=== PATIENT | female | born 1960 | race Caucasian/White ===

== ENCOUNTER 2017-05-21 20:13 | Observation (INO) | payer OTHER ==
[2017-05-21 21:02] LABS: Absolute Lymphocytes (CBC) 1.9 K/uL (0.7-4.9); Absolute Monocytes 0.6 K/uL (0.1-1.3); Absolute Neutrophil 5.5 K/uL (1.8-8.0); Basophils % 0.6 % (0-1.3); Eosinophils % 1.7 % (0-4.4); Hematocrit 40.2 % (36.0-45.0); Lymphocytes % 23.5 % (15.3-44.8); MCH 28.3 pg (27.0-35.0); MCV 86.3 fL (80-100); MPV 7.9 fL (7.6-11.3); Monocytes % 6.8 % (3.3-12.3); RBC Red Blood Cell Count 4.65 M/uL (3.86-4.86)
[2017-05-21 21:12] LABS: Bicarbonate 31 mEq/L (21-31); Glucose Level 95 mg/dL (65-120); Potassium 3.8 mEq/L (3.6-5.0); Sodium Level 138 mEq/L (135-145)
[2017-05-21 21:18] LABS: ALT/SGPT 16 IU/L (10-60); AST/SGOT 23 IU/L (10-42); Alkaline Phosphatase 100 IU/L (42-121); BUN Blood Urea Nitrogen 11 mg/dL (6-20); Bilirubin Direct 0.1 mg/dL (0-0.2); Bilirubin Total 0.4 mg/dL (0.3-1.2); Creatine Phosphokinase 74 IU/L (22-269); Magnesium 1.7 mg/dL (1.8-2.5); Protein, Total 7.8 g/dL (6.0-8.3)
[2017-05-21 21:21] LABS: CKMB Creatine Kinase MB 1.5 ng/ml (0.3-4.0)
--- NOTE | 2017-05-21 21:31 | RAD REPORT ---
EXAM DESCRIPTION: RAD - Chest Single View - 05/21/2017 9:11 pm CLINICAL HISTORY: Chest pain, cough and congestion COMPARISON: February 14 TECHNIQUE: AP portable chest image was obtained 2058 hours . FINDINGS: Very extensive fibrotic lung changes are present. There is pleural thickening, interstitia l fibrotic change and cavitation in the right apex that matches the comparison as well. Elevation of the sobia noted. No new mass identified. Extent of lung disease can easily mask mild interstitial patria a or infiltrate. Heart and vasculature are normal. No measurable pleural effusion and no pneumothorax. No gross bony abnormality seen. No acute aortic findings suspected. IMPRESSION: Extensive fibrotic an obstructive lung changes most pronounced in the right apex. No acute finding from prior imaging. The extent of chronic disease can mask early interstitial edema or infiltrate.
[2017-05-21 21:43] LABS: Protime INR 1.03
[2017-05-21] MEDS ORDERED: ASPIRIN 81 MG CHEWABLE TABLET ONE (21:47)
[2017-05-21] MEDS ORDERED: FENTANYL CITR 100 MCG/2 ML ONE (21:48)
--- NOTE | 2017-05-21 22:03 | ER ---
Nurse's Notes [facility] Name: Kallie Correia Age: 56 yrs Sex: Female : 1960 Arrival Date: 05/21/2017 Time: 20:06 Bed 26 Private MD: Diagnosis: Chest pain, unspecified;Dyspnea;Hypomagnesemia;Chronic obstructive pulmonary disease with (acute) exacerbation Presentation: 05/21 20:06 Presenting complaint: EMS states: Pt. arrived from home by EMS... c/o indigestion and rk2 Chest pain. CP started yesterday. Pain radiates under both arms and into back. Denies SOB, N/V or dizziness. Pt. is currently being treated for a lung infection. Transition of care: patient was not received from another setting of care. Onset of symptoms was May 20, 2017. Initial Sepsis Screen: Does the patient meet any 2 criteria? No. Patient's initial sepsis screen is negative. Does the patient have a suspected source of infection? Yes:. Care prior to arrival: None. 20:06 Method Of Arrival: EMS: [facility] rk2 20:06 Acuity: BENJI 3 rk2 Triage Assessment: 20:11 General: Appears in no apparent distress. Behavior is calm, cooperative. Pain: rk2 Complains of pain in chest. Historical: - Allergies: 20:11 Morphine; rk2 - PMHx: 20:11 COPD; Emphysema; rk2 - Immunization history:: Flu vaccine is not up to date. - Social history:: Smoking status: Patient/guardian denies using tobacco, the patient reports quitting approximately 0 years ago. - Family history:: not pertinent. Screenin:13 Tuberculosis screening: Never had TB. rk2 20:20 Abuse screen: Denies threats or abuse. rk2 20:20 Nutritional screening: No deficits noted. Fall Risk Secondary diagnosis (15 points). rk2 Assessment: 00:00 Reassessment: Pt. ambulated to restroom without difficulty... resting back in room in rk2 no obvious distress. No needs \T\ this time. 20:20 General: Appears uncomfortable, well nourished, Behavior is calm, cooperative. rk2 20:20 Pain: Complains of pain in right posterior lower lobe and right posterior middle lobe rk2 and left posterior lower lobe and right posterior upper lobe and left posterior upper lobe and right lower lobe and left lower lobe and right middle lobe and left upper lobe and right upper lobe. Neuro: Level of Consciousness is alert, obeys commands, Oriented to person, place, time, situation. Cardiovascular: Rhythm is sinus rhythm. Respiratory: Airway is patent Respiratory effort is even, unlabored, Respiratory pattern is regular, symmetrical. Derm: Skin is pink, warm \T\ dry. 21:30 Reassessment: Pt. resting in room \T\ this time... appears to be in no obvious distress. rk2 Pt. given warm blanket, no other needs voiced. 22:30 Reassessment: Pt. resting in room \T\ this time. Nobody \T\ bedside. Pt. appears to be in 2 no obvious distress. No needs voiced \T\ this time. 05/22 00:25 Reassessment: Called report to Pam lindsey RN... Pt. transported by wheelchair to [facility] room. Vital Signs: 05/21 20:17 BP 126 / 80; Pulse 86; Resp 18; Temp 98.7; Pulse Ox 96% ; rk2 21:00 BP 101 / 72; Pulse 82; Resp 17; Pulse Ox 98% ; rk2 21:57 Weight 52.62 kg; Height 5 ft. 2 in. (157.48 cm); rk2 22:00 BP 113 / 74; Pulse 73; Resp 17; Pulse Ox 97% on R/A; rk2 23:00 BP 104 / 70; Pulse 75; Resp 18; Pulse Ox 98% on R/A; rk2 21:57 Body Mass Index 21.22 (52.62 kg, 157.48 cm) [facility] ED Course: 20:06 Patient arrived in ED. 2 20:10 Triage completed. 2 20:17 Елена Newton, RN is Primary Nurse. rk2 20:20 Patient has correct armband on for positive identification. Bed in low position. Call [facility] light in reach. Side rails up X2. expediter clerk on. Pulse ox on. 20:29 EKG done, by ED staff, reviewed by Елена Newton RN. 3 20:33 Miguel Angel Quezada MD is Attending Physician. [facility] 21:08 X-ray completed. Portable x-ray completed in exam room. Patient tolerated procedure kc2 well. 21:09 XRAY Chest (1 view) In Process Unspecified. EDIN 22:02 Moises Dillon MD is Hospitalizing Provider. [facility] 22:58 CT Aorta for Dissection Sent. rk2 05/22 00:27 No provider procedures requiring assistance completed. Patient admitted, IV remains in rk2 place. Administered Medications: 05/21 21:53 Drug: Aspirin Chewable Tablet 324 mg Route: PO; rk2 23:49 Follow up: Response: No adverse reaction rk2 21:54 Drug: fentaNYL (PF) 50 mcg Route: IVP; Site: right antecubital; rk2 23:49 Follow up: Response: No adverse reaction rk2 22:21 Drug: Pepcid 20 mg Route: IVP; Site: right antecubital; rk2 23:48 Follow up: Response: No adverse reaction rk2 23:48 Follow up: Response: No adverse reaction rk2 22:21 Drug: Lovenox 1 mg/kg Route: Sub-Q; Site: abdomen; rk2 23:48 Follow up: Response: No adverse reaction rk2 22:53 Drug: Magnesium Sulfate 1 grams Route: IVPB; Infused Over: 1 hrs; Site: right rk2 antecubital; 23:48 Follow up: Response: No adverse reaction; IV Status: Completed infusion rk2 23:02 Drug: Zofran 4 mg Route: IVP; Site: right antecubital; rk2 23:48 Follow up: Response: No adverse reaction rk2 Outcome: 22:03 Decision to Hospitalize by Provider. [facility] 05/22 00:27 Admitted to Tele accompanied by tech, via wheelchair. rk2 Condition: good Instructed on the need for admit. 00:30 Patient left the ED. rk2 Signatures: Dispatcher [employer] EDIN Miguel Angel Quezada MD MD cha Carr, Kelsie 2 Narda Jaquez 3 Елена Newton RN RN rk2 Corrections: (The following items were deleted from the chart) 05/21 20:19 20:06 Presenting complaint: EMS states: Pt. arrived from home by EMS... c/o indigestion rk2 and Chest pain. CP started yesterday. Pain radiates under both arms and into back. Denies SOB, N/V or dizziness. rk2
--- NOTE | 2017-05-21 22:03 | EDPHYS ---
Physician Documentation [facility] Name: Kallie Correia Age: 56 yrs Sex: Female : 1960 Arrival Date: 05/21/2017 Time: 20:06 Bed 26 Private MD: ED Physician Miguel Angel Quezada HPI: 05/21 21:59 This 56 yrs old Female presents to ER via EMS with complaints of chest pain nasreen and sob. 21:59 The patient has shortness of breath with light activity. Onset: The symptoms/episode nasreen began/occurred 1 day(s) ago. Duration: The symptoms are continuous, and are unchanged since they started. The patient's shortness of breath is aggravated by coughing, exertion, light activity, is alleviated by rest, application of supplemental oxygen. The patient or guardian reports chest pain that is located primarily in the anterior chest wall, bilaterally. The pain does not radiate. Associated signs and symptoms: Pertinent positives: non-productive cough. Severity of symptoms: At their worst the symptoms were mild in the emergency department the symptoms are unchanged. Historical: - Allergies: 20:11 Morphine; rk2 - PMHx: 20:11 COPD; Emphysema; rk2 - Immunization history:: Flu vaccine is not up to date. - Social history:: Smoking status: Patient/guardian denies using tobacco, the patient reports quitting approximately 0 years ago. - Family history:: not pertinent. ROS: 21:59 Constitutional: Negative for fever, chills, and weight loss, Eyes: Negative for injury, nasreen pain, redness, and discharge, ENT: Negative for injury, pain, and discharge, Neck: Negative for injury, pain, and swelling, Abdomen/GI: Negative for abdominal pain, nausea, vomiting, diarrhea, and constipation, Back: Negative for injury and pain, : Negative for injury, bleeding, discharge, and swelling, MS/Extremity: Negative for injury and deformity, Skin: Negative for injury, rash, and discoloration, Neuro: Negative for headache, weakness, numbness, tingling, and seizure, Psych: Negative for depression, anxiety, suicide ideation, homicidal ideation, and hallucinations, Allergy/Immunology: Negative for hives, rash, and allergies, Endocrine: Negative for neck swelling, polydipsia, polyuria, polyphagia, and marked weight changes, Hematologic/Lymphatic: Negative for swollen nodes, abnormal bleeding, and unusual bruising. 21:59 Cardiovascular: Positive for chest pain. 21:59 Respiratory: Positive for cough. Exam: 21:59 Constitutional: This is a well developed, well nourished patient who is awake, alert, nasreen and in no acute distress. Head/Face: Normocephalic, atraumatic. Eyes: Pupils equal round and reactive to light, extra-ocular motions intact. Lids and lashes normal. Conjunctiva and sclera are non-icteric and not injected. Cornea within normal limits. Periorbital areas with no swelling, redness, or edema. ENT: Nares patent. No nasal discharge, no septal abnormalities noted. Tympanic membranes are normal and external auditory canals are clear. Oropharynx with no redness, swelling, or masses, exudates, or evidence of obstruction, uvula midline. Mucous membranes moist. Neck: Trachea midline, no thyromegaly or masses palpated, and no cervical lymphadenopathy. Supple, full range of motion without nuchal rigidity, or vertebral point tenderness. No Meningismus. Chest/axilla: Normal chest wall appearance and motion. Nontender with no deformity. No lesions are appreciated. Cardiovascular: Regular rate and rhythm with a normal S1 and S2. No gallops, murmurs, or rubs. Normal PMI, no JVD. No pulse deficits. Abdomen/GI: Soft, non-tender, with normal bowel sounds. No distension or tympany. No guarding or rebound. No evidence of tenderness throughout. Back: No spinal tenderness. No costovertebral tenderness. Full range of motion. Female : Normal external genitalia. Skin: Warm, dry with normal turgor. Normal color with no rashes, no lesions, and no evidence of cellulitis. MS/ Extremity: Pulses equal, no cyanosis. Neurovascular intact. Full, normal range of motion. Neuro: Awake and alert, GCS 15, oriented to person, place, time, and situation. Cranial nerves II-XII grossly intact. Motor strength 5/5 in all extremities. Sensory grossly intact. Cerebellar exam normal. Normal gait. Psych: Awake, alert, with orientation to person, place and time. Behavior, mood, and affect are within normal limits. 21:59 Respiratory: mild respiratory distress is noted, Respirations: normal, no acute changes, Breath sounds: decreased breath sounds, that are mild, are heard in the right upper lobe, left upper lobe, right middle lobe, left lower lobe, right lower lobe, left posterior upper lobe, right posterior upper lobe, left posterior lower lobe, right posterior middle lobe and right posterior lower lobe. Vital Signs: 20:17 BP 126 / 80; Pulse 86; Resp 18; Temp 98.7; Pulse Ox 96% ; 2 21:00 BP 101 / 72; Pulse 82; Resp 17; Pulse Ox 98% ; 2 21:57 Weight 52.62 kg; Height 5 ft. 2 in. (157.48 cm); rk2 22:00 BP 113 / 74; Pulse 73; Resp 17; Pulse Ox 97% on R/A; rk2 23:00 BP 104 / 70; Pulse 75; Resp 18; Pulse Ox 98% on R/A; rk2 21:57 Body Mass Index 21.22 (52.62 kg, 157.48 cm) [facility] MDM: 20:33 Patient medically screened. [facility] 22:01 Data reviewed: vital signs, nurses notes, lab test result(s), EKG, radiologic studies, [facility] CT scan, plain films. 05/21 20:33 Order name: Basic Metabolic Panel; Complete Time: 21:50 [facility] 05/21 20:33 Order name: BNP; Complete Time: 23:46 [facility] 05/21 20:33 Order name: CBC with Diff; Complete Time: 21:50 [facility] 05/21 20:33 Order name: Ckmb; Complete Time: 21:50 [facility] 05/21 20:33 Order name: CPK; Complete Time: 21:50 [facility] 05/21 20:33 Order name: LFT's; Complete Time: 21:50 [facility] 05/21 20:33 Order name: Magnesium; Complete Time: 21:50 [facility] 05/21 20:33 Order name: PT-INR; Complete Time: 21:50 [facility] 05/21 20:33 Order name: Ptt, Activated; Complete Time: 21:50 [facility] 05/21 20:33 Order name: Troponin (emerg Dept Use Only); Complete Time: 21:50 [facility] 05/21 20:33 Order name: XRAY Chest (1 view); Complete Time: 21:50 [facility] 05/21 21:51 Order name: CT Aorta for Dissection [facility] 05/22 00:04 Order name: Urine Dipstick--Ancillary (enter results) em1 05/21 20:33 Order name: EKG; Complete Time: 20:49 [facility] 05/21 20:33 Order name: Cardiac monitoring; Complete Time: 20:34 [facility] 05/21 20:33 Order name: EKG - Nurse/Tech; Complete Time: 20:34 [facility] 05/21 20:33 Order name: IV Saline Lock; Complete Time: 20:49 [facility] 05/21 20:33 Order name: Labs collected and sent; Complete Time: 20:49 [facility] 05/21 20:33 Order name: O2 Per Protocol; Complete Time: 20:34 [facility] 05/21 20:33 Order name: O2 Sat Monitoring; Complete Time: 20:34 [facility] 05/21 20:33 Order name: Urine Dipstick-Ancillary (obtain specimen); Complete Time: 23:43 [facility] 05/21 21:53 Order name: EKG; Complete Time: 21:53 [facility] 05/21 22:09 Order name: CONS Physician Consult [facility] 05/21 22:09 Order name: CONS Physician Consult [facility] 05/21 21:53 Order name: EKG - Nurse/Tech; Complete Time: 23:01 [facility] Administered Medications: 21:53 Drug: Aspirin Chewable Tablet 324 mg Route: PO; rk2 23:49 Follow up: Response: No adverse reaction rk2 21:54 Drug: fentaNYL (PF) 50 mcg Route: IVP; Site: right antecubital; rk2 23:49 Follow up: Response: No adverse reaction rk2 22:21 Drug: Pepcid 20 mg Route: IVP; Site: right antecubital; rk2 23:48 Follow up: Response: No adverse reaction rk2 23:48 Follow up: Response: No adverse reaction rk2 22:21 Drug: Lovenox 1 mg/kg Route: Sub-Q; Site: abdomen; rk2 23:48 Follow up: Response: No adverse reaction rk2 22:53 Drug: Magnesium Sulfate 1 grams Route: IVPB; Infused Over: 1 hrs; Site: right rk2 antecubital; 23:48 Follow up: Response: No adverse reaction; IV Status: Completed infusion rk2 23:02 Drug: Zofran 4 mg Route: IVP; Site: right antecubital; rk2 23:48 Follow up: Response: No adverse reaction rk2 Disposition: 05/21/17 22:03 Hospitalization ordered by Moises Dillon for Inpatient Admission. Preliminary diagnosis are Chest pain, unspecified, Dyspnea, Hypomagnesemia, Chronic obstructive pulmonary disease with (acute) exacerbation. - Bed requested for Telemetry/MedSurg (Inpatient). - Status is Inpatient Admission. rk2 - Condition is Fair. - Problem is new. - Symptoms have improved. UTI on Admission? No Signatures: Dispatcher [employer] EDGwenodlyn Sanford RN RN Miguel Angel Oviedo MD MD cha Kidder, Rhonda RN RN rk2
[2017-05-21] MEDS ORDERED: MAGNESIUM SULFATE 1 gm IVPB 1 GM/100 ML BAG IV ONE (22:15)
[2017-05-21] MEDS ORDERED: FAMOTIDINE 20 MG/2 ML VIAL IV ONE (22:15)
[2017-05-21] MEDS ORDERED: ENOXAPARIN 60 MG/0.6 ML SQ ONE (22:15)
[2017-05-21] MEDS ORDERED: ONDANSETRON 4 MG/2 ML VIAL ONE (22:58)
[2017-05-22] MEDS ORDERED: ALBUTEROL 2.5 MG/3 ML NEB SOL NEB PRN (00:24)
[2017-05-22] MEDS ORDERED: IPRATROPIUM BROM 0.5MG/2.5ML NEB PRN (00:24)
[2017-05-22] MEDS ORDERED: ACETAMINOPHEN 500 MG TAB PO PRN (00:24)
[2017-05-22] MEDS ORDERED: ONDANSETRON 4 MG/2 ML VIAL IV PRN (00:24)
[2017-05-22 00:36] VITALS: BMI 21.2
[2017-05-22] MEDS: KETOROLAC 30 MG/ML INJ IV PRN ×2 (00:49→06:45)
[2017-05-22] MEDS: NA CHLORIDE 0.9% 1,000 ML IV SCH ×2 (00:53→10:55)
--- NOTE | 2017-05-22 02:44 | P.HP ---
Certification for Inpatient Patient admitted to: Observation With expected LOS: <2 Midnights Practitioner: I am a practitioner with admitting privileges, knowledge of patient current condition, hospital course, and medical plan of care. Services: Services provided to patient in accordance with Admission requirements found in Title 42 Section 412.3 of the Code of Federal Regulations Patient History Date of Service: 05/21/17 Reason for admission: chest pain History of Present Illness: Ms Correia is a 56 years old woman with history of COPD, MAC infection, tobacco abuse, who came to ED complaining of chest pain. Her pain start yesterday, on and off, located across her chest, radiated to both axillae area, described as stubbing, worsening with breathing movements, intensity 8/10. She denied nausea , vomiting, more SOB, dizziness or diaphoresis associated with the pain. Initial troponin I is negative, EKG shows no ST-T abnormalities. CT dissection pending report. Allergies codeine [Codeine] Allergy (Intermediate, Verified 10/23/15 06:09) Hives/Rash morphine Allergy (Intermediate, Verified 10/23/15 06:09) Hives/Rash Home Medications: Fluticasone/Vilanterol [Breo Ellipta 200-25 Mcg INH] 1 puff IN DAILY 02/15/17 Umeclidinium [place] [Incruse Ellipta] 1 puff IH BEDTIME 02/15/17 Cefuroxime [Ceftin*] 500 mg PO BID #10 tab 02/17/17 Docusate [Colace Cap*] 100 mg PO BID #30 cap 02/17/17 Prednisone [Deltasone*] 10 mg PO BID #20 tab 02/17/17 - Past Medical/Surgical History Has patient received pneumonia vaccine in the past: Yes Diabetic: No -: COPD -: Bronchitis -: Chronic lung infection -: Hysterectomy -: Tubal ligation -: tosillectomy -: R leg sx with metal screws -: Patient has had fine-needle aspiration complicated by pneumothorax -: Bronchoscopy at [facility] - Family History Mother -: Cancer Sister -: Cancer Father -: Heart disease Brother -: Lung disease - Social History Smoking Status: Former smoker Counseled patient to stop smoking for: less than 10 minutes Alcohol use: Yes CD- Drugs: No Caffeine use: Yes Place of Residence: Home Review of Systems 10-point ROS is otherwise unremarkable Physical Examination - Vital Signs Temperature: 97.9 F Blood Pressure: 100/60 Pulse: 77 Respirations: 16 Pulse Ox (%): 93 - Physical Exam General: Alert, In no apparent distress HEENT: Atraumatic, PERRLA, Mucous membr. moist/pink, EOMI, Sclerae nonicteric Neck: Supple, 2+ carotid pulse no bruit, No LAD, Without JVD or thyroid abnormality Respiratory: Normal air movement, Crackles/rales (bibasilar fine crackles) Cardiovascular: Regular rate/rhythm, Normal S1 S2 Gastrointestinal: Normal bowel sounds, No tenderness Musculoskeletal: No tenderness Integumentary: No rashes Neurological: Normal speech, Normal strength at 5/5 x4 extr, Normal tone, Normal affect Lymphatics: No axilla or inguinal lymphadenopathy - Studies Laboratory Data (last 24 hrs) 05/21/17 20:45: PT 12.2, INR 1.03, APTT 31.9 05/21/17 20:45: WBC 8.2, Hgb 13.2, Hct 40.2, Plt Count 292 05/21/17 20:45: B-Natriuretic Peptide 105 H 05/21/17 20:45: Sodium 138, Potassium 3.8, BUN 11, Creatinine 0.63, Glucose 95, Magnesium 1.7 L D, Total Bilirubin 0.4, AST 23, ALT 16, Alkaline Phosphatase 100 Assessment and Plan - Problems (Diagnosis) (1) Chest pain Current Visit: Yes Status: Acute Qualifiers: Chest pain type: unspecified Qualified Code(s): R07.9 - Chest pain, unspecified (2) History of MAC infection Current Visit: Yes Status: Acute (3) COPD (chronic obstructive pulmonary disease) Current Visit: Yes Status: Acute Qualifiers: COPD type: unspecified COPD Qualified Code(s): J44.9 - Chronic obstructive pulmonary disease, unspecified (4) Tobacco abuse Current Visit: Yes Status: Acute - Plan The patient will be admitted to the hospital due to chest pain, seems atypical in nature, initial troponin I is negative, no EKG changes. Will order serial cardiac enzymes, EKG in order to R/O ACS. Consult Vice President Payment. No signs of COPD exacerbation. - Advance Directives Does patient have a Living Will: No Does patient have a Durable POA for Healthcare: No - Code Status/Comfort Care Code Status Assessed: Yes Code Status: Full Code
[2017-05-22 05:28] LABS: Absolute Lymphocytes (CBC) 2.1 K/uL (0.7-4.9); Absolute Monocytes 0.6 K/uL (0.1-1.3); Basophils % 0.4 % (0-1.3); Hematocrit 36.5 % (36.0-45.0); Lymphocytes % 30.5 % (15.3-44.8); MCH 28.6 pg (27.0-35.0); MCV 85.9 fL (80-100); MPV 8.1 fL (7.6-11.3); Monocytes % 9.1 % (3.3-12.3); RBC Red Blood Cell Count 4.25 M/uL (3.86-4.86)
[2017-05-22 05:45] LABS: Potassium 4.2 mEq/L (3.6-5.0)
[2017-05-22] MEDS ORDERED: PNEUMOCOCCAL VACCINE 0.5 ML IMVAC ONE (06:00)
--- NOTE | 2017-05-22 06:35 | RAD REPORT ---
EXAM DESCRIPTION: CT - Angio Aorta For Dissection - 05/22/2017 1:35 am CLINICAL HISTORY: Back pain, shortness of breath, chest pain A preliminary written report was provided at the time of the study, and the report was reviewed prio r to final dictation. COMPARISON: Portable chest same date, CT chest February 2017, CT October 2015 TECHNIQUE: Dynamically enhanced 3 mm thick images of the chest, abdomen, and upper pelvis were obtai andre during administration of approximately 150mL Isovue 370 IV contrast. Sagittal and coronal reconst ruction images were generated and reviewed. Exam utilizes a protocol to evaluate entire course of the aorta. All CT scans are performed using dose optimization technique as appropriate and may include automated exposure control or mA/KV adjustment according to patient size. FINDINGS: Aorta is normal in diameter with no dissection or other acute aortic findings. Reconstruct ion images show no significant findings. Pulmonary arteries are normal. No cardiomegaly, pericardial thickening or pericardial effusion. Again noted is the thick walled cavitation throughout much of the right upper lobe. No new or enlargi ng fluid levels within the areas of cavitation. Left upper lobe cavitation is present and stable as w ell. Areas of noncalcified nodularity in the mid and upper lung cordova noted in stable over this inte rval. Hyper expanded lung cordova noted overall. Scattered scarring changes are present in the lung ba ses. Stranding in the lingula and right middle lobe have diminished since February. No pleural thickening, pleural effusion or pneumothorax. No abnormal mediastinal or hilar mass or lymphadenopathy seen. No chest wall mass or abnormal axillar y lymphadenopathy. Celiac, SMA and renal arteries show no suspicious findings. Solid abdominal viscera and bowel show no significant findings. No mass or abnormal lymphadenopathy. No free air, free fluid or inflammatory stranding. No urinary bladder abnormality. IMPRESSION: No dissection, aneurysm or acute aortic finding. No pulmonary embolism or pulmonary kevon ry abnormality. Moderately severe baseline emphysema. No acute infiltrative process seen. The extensive biapical and superior segment right lower lobe thick walled cavitary lung disease is ag ain noted. Although changes may be related to severe emphysema, the thick-walled cavitation is not ty pical. Cavitary pneumonia, TB, fungal infection, granulomas disease an a cavitary malignant process a re all possibilities. Cavitary pattern has not changed over the short interval since February 2017. Cavitary changes progres sed between 2015 and the February 2017 study. Multiple noncalcified pulmonary nodules are present in addition to the cavitation. These nodules have shown no growth since February.
[2017-05-22 06:49] LABS: Urine Appearance CLEAR; Urine Bilirubin NEGATIVE (NEG); Urine Blood TRACE (NEG); Urine Color YELLOW; Urine Glucose NEGATIVE (NEG); Urine Microscopic Reflex ORDER UMIC; Urine Protein NEGATIVE (NEG); Urine Urobilinogen 0.2 mg/dL (0.2-1.0); Urine pH 5.5 (5.0-7.0)
[2017-05-22 06:56] LABS: Urine Bacteria <20 /HPF (<20); Urine RBC <5 /HPF (NONE SEEN)
[2017-05-22 06:57] LABS: Urine Culture Reflex Order NOT NEEDED
--- NOTE | 2017-05-22 08:27 | EKG ---
Test Date: 2017-05-21 Test Time: 20:22:13 Lighting Engineering Technician: MATEUSZ MEASUREMENT RESULTS: Intervals: Rate: 86 SC: 156 QRSD: 72 QT: 368 QTc: 440 Albright: P: 86 SC: 156 QRS: 86 T: 82 INTERPRETIVE STATEMENTS: Normal sinus rhythm Right atrial enlargement Borderline ECG Compared to ECG 02/14/2017 23:42:32 No significant changes Electronically Signed On 05-22-17 08:25:40 CDT by Jesus Bryan
[2017-05-22] MEDS ORDERED: REGADENOSON 0.4 MG/5 ML SYR IV ONE (08:36)
[2017-05-22] MEDS ORDERED: TRAMADOL HCL 50 MG TAB PO ONE (11:30)
--- NOTE | 2017-05-22 12:02 | P.CNS ---
Date of Consult: 05/22/17 Chief Complaint: chest pain History of Present Illness: pt is 51 yrs of age with sever COPD and rexcent Dx of MATT. Intolerant to meds. Recently started on IM Amikacin for Matt. AW sudden onset all for chest pain described as pleuritic in nature bilateral denies any worsening cough patient is quit smoking no hemoptysis patient complains that amikacin I am is very painful Allergies codeine [Codeine] Allergy (Intermediate, Verified 10/23/15 06:09) Hives/Rash morphine Allergy (Intermediate, Verified 10/23/15 06:09) Hives/Rash Home Medications: Fluticasone/Vilanterol [Breo Ellipta 200-25 Mcg INH] 1 puff IN DAILY 02/15/17 Umeclidinium Nathalie [Incruse Ellipta] 1 puff IH BEDTIME 02/15/17 Amikacin Sulf [Amikin*] 500 mg IM M,W,F 05/22/17 Azithromycin 250 mg PO DAILY 05/22/17 Rifampin 2 tab PO DAILY 05/22/17 - Past Medical/Surgical History Diabetic: No -: COPD -: Bronchitis -: 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 -: Hysterectomy -: Tubal ligation -: tosillectomy -: R leg sx with metal screws -: Patient has had fine-needle aspiration complicated by pneumothorax -: Bronchoscopy at [facility] - Family History Mother Medical History: Cancer Sister Medical History: Cancer Father Medical History: Heart disease Brother Medical History: Lung disease - Social History Smoking Status: Current every day smoker Alcohol use: Yes CD- Drugs: No Caffeine use: Yes Place of Residence: Home Review of Systems Unremarkable General: Weakness Respiratory: Cough, Shortness of Breath Cardiovascular: Chest Pain Physical Examination Temp Pulse Resp BP Pulse Ox 97.1 F 64 20 108/54 L 93 05/22/17 08:00 05/22/17 08:00 05/22/17 08:00 05/22/17 08:00 05/22/17 08:00 General: Alert, Oriented x3, Acute distress Neck: Supple Respiratory: Diminished, Expiratory wheezes Cardiovascular: No edema, Regular rate/rhythm, Normal S1 S2 Gastrointestinal: Normal bowel sounds, Soft and benign Musculoskeletal: No clubbing, No swelling Laboratory Data (last 24 hrs) 05/21/17 20:45: PT 12.2, INR 1.03, APTT 31.9 05/21/17 20:45: WBC 8.2, Hgb 13.2, Hct 40.2, Plt Count 292 05/21/17 20:45: B-Natriuretic Peptide 105 H 05/21/17 20:45: Sodium 138, Potassium 3.8, BUN 11, Creatinine 0.63, Glucose 95, Magnesium 1.7 L D, Total Bilirubin 0.4, AST 23, ALT 16, Alkaline Phosphatase 100 - Problems (1) Chest pain Onset Date: 05/22/17 Current Visit: Yes Status: Acute Plan: Patient is 56 years of age with a history of severe COPD atypical mycobacterium infection his impressive cavitary disease in the right upper lobe intolerant to treatment was admitted with sudden onset of chest pain are bilateral in nature chemistries CBC unremarkable there is no evidence of pulmonary embolism chronic cavitary changes I have also added some levofloxacin Brovana Dc IV fluids possible discharge tomorrow Qualifiers: Chest pain type: unspecified Qualified Code(s): R07.9 - Chest pain, unspecified
[2017-05-22] MEDS ORDERED: levoFLOXacin 500 MG TAB PO SCH (12:05)
[2017-05-22] MEDS ORDERED: HYDROCODONE/APAP 5/325 MG TAB PO PRN (12:06)
--- NOTE | 2017-05-22 12:21 | CON ---
Date of Consultation: 05/22/[address] Weinstein's service on 05/21/2017. I saw the patient on 05/22/2017. Reason For Consultation: Chest pain. History Of Present Illness: Ms. Correia is a 56-year-old woman with history of severe COPD with dorcas re pulmonary fibrosis, sees Dr. Crystal. She is on Breo Ellipta, prednisone, and recentl y, came in with sharp chest pain that is stabbing underneath the left arm and the right armpit as wel l as increased with breathing. No nausea, vomiting, diaphoresis, PND, orthopnea, pedal edema, palpit ations, or syncope. All blood work so far including troponin and BNP has been negative. Allergies: SHE IS ALLERGIC TO CODEINE AND MORPHINE. Review of Systems: Negative. Social History: Negative. Family History: Noncontributory. Medications: At home are listed earlier. Physical Examination: General: She appears to be in mild respiratory distress. Chest pain is still there, but has improve d, still pleuritic. HEENT: Negative. Neck: Supple. No bruit. Chest: Clear to auscultation and percussion. Cardiac: Revealed a regular rate without any murmurs, gallops, or rubs. Abdomen: Benign. Extremities: Reveal no clubbing, cyanosis, or edema. Diagnostic Data: Listed earlier. Impression And Plan: 1.Atypical chest pain, most likely pleuritic. 2.Severe chronic obstructive pulmonary disease. 3.Allergies to codeine and morphine. I think we need to workup Ms. Correia for a cardiac issue. Ec hocardiogram and Lexiscan are pending. We will see what those show prior to making decision. NB/MODL Voice ID: [id number] Report ID: [id number]
--- NOTE | 2017-05-22 12:26 | ECHO ---
HEIGHT: 5 ft 2 in WEIGHT: 116 lb 1 oz DATE OF STUDY: 05/22/[address]: Jesus Bryan MD 2-DIMENSIONAL: YES M.MODE: YES DOPPLER: YES COLOR FLOW: YES TDS: PORTABLE: DEFINITY: BUBBLE STUDY: DIAGNOSIS: CHEST PAIN, SHORTNESS OF BREATH CARDIAC HISTORY: CATHERIZATION: NO SURGERY: NO PROSTHETIC VALVE: NO PACEMAKER: NO MEASUREMENTS (cm) DIASTOLIC (NORMALS) SYSTOLIC (NORMALS) IVSd 0.9 (0.6-1.2) LA Diam 2.0 (1.9-4.0) LVEF 61% LVIDd 4.1 (3.5-5.7) LVIDs 2.7 (2.0-3.5) %FS 32% LVPWd 0.9 (0.6-1.2) Ao Diam 2.9 (2.0-3.7) 2 DIMENSIONAL ASSESSMENT: RIGHT ATRIUM: NORMAL LEFT ATRIUM: NORMAL RIGHT VENTRICLE: NORMAL LEFT VENTRICLE: NORMAL TRICUSPID VALVE: NORMAL MITRAL VALVE: NORMAL PULMONIC VALVE: NORMAL AORTIC VALVE: NORMAL PERICARDIAL EFFUSION: NONE AORTIC ROOT: NORMAL LEFT VENTRICULAR WALL MOTION: NORMAL DOPPLER/COLOR FLOW: NORMAL COMMENTS: NORMAL 2-DIMENSIONAL ECHOCARDIOGRAM WITH DOPPLER. TECHNOLOGIST: JAY LINCOLN
[2017-05-22 12:50] VITALS: BP 90/52; TEMP 97
--- NOTE | 2017-05-22 12:51 | TREADPHA ---
DX: CHEST PAIN Date of Study: 05/22/2017 Ht: 5' 2 " Wt: 116 lb 1 oz Consulting Physician: JOVANY MEDICATIONS: TYLENOL, PROVENTIL, TORADOL, ZOFRAN, ATROVENT NEB HISTORY: 56 YEAR OLD FEMALE HERE FOR CHEST PAIN. HISTORY OF COPD AND EMPHYSEMIA. PHYSICIAL EXAMINATION: RESTING B.P.: 106/66 RESTING H.R.: 61 RESTING EKG: NORMAL PROTOCOL: LEXISCAN EXERCISE TIME: 3:30 B.P. AT [place]AK STRESS: 106/72 IMPRESSION: LEXISCAN STRESS TEST PERFORMED. CARDIOLITE INJECTED PER PROTOCOL. NO ARRHYTHMIAS NOTED. COMPLAINTS OF 6/10 CHEST PAIN PRIOR TO TEST MID STERNAL THAT RADIATES TO BACK AND INCREASES WITH COUGH. INCREASED TO 8/10 DURING TEST WITH SHORTNESS OF BREATH FROM "PANIC FEELING" THEN BACK TO 6/10 POST. SEE NUCLEAR MEDICINE REPORT. NON DIAGNOSTIC EKG WITH LEXISCAN STRESS.
[2017-05-22 14:48] VITALS: O2SAT 94
--- NOTE | 2017-05-22 15:12 | RAD REPORT ---
EXAM DESCRIPTION: NM - Rest Stress Cardiac Imaging - 05/22/2017 11:57 am CLINICAL HISTORY: Chest pain. COMPARISON: None. TECHNIQUE: The patient was administered approximately 10mCi of Tc 99m Sestamibi prior to resting SPE CT imaging of the heart. The patient was then administered approximately 30 mCi of Tc 99m Sestamibi f ollowing exercise or pharmacologic stress. Multiplanar SPECT images were reviewed. FINDINGS: No stress induced ischemic defect is seen to suggest stress induced ischemia. No fixed def ect is seen to suggest hibernating myocardium or scarred myocardium. The end diastolic volume is 49 ml, the end systolic volume is 9 ml, and the ejection fraction is 82 % . IMPRESSION: No stress induced ischemia.
--- NOTE | 2017-05-22 16:23 | P.SSS ---
Patient History Date of Service: 05/22/17 Primary Care Provider: None Reason for admission: chest pain History of Present Illness: Ms Correia is a 56 years old woman with history of COPD, MAC infection, tobacco abuse, who came to ED complaining of chest pain. Her pain start yesterday, on and off, located across her chest, radiated to both axillae area, described as stubbing, worsening with breathing movements, intensity 8/10. She denied nausea , vomiting, more SOB, dizziness or diaphoresis associated with the pain. Initial troponin I is negative, EKG shows no ST-T abnormalities. CT dissection pending report. Allergies codeine [Codeine] Allergy (Intermediate, Verified 10/23/15 06:09) Hives/Rash morphine Allergy (Intermediate, Verified 10/23/15 06:09) Hives/Rash Home Medications: Fluticasone/Vilanterol [Breo Ellipta 200-25 Mcg INH] 1 puff IN DAILY 02/15/17 Umeclidinium [place] [Incruse Ellipta] 1 puff IH BEDTIME 02/15/17 Amikacin Sulf [Amikin*] 500 mg IM M,W,F 05/22/17 Azithromycin 250 mg PO DAILY 05/22/17 Levofloxacin [Levaquin*] 500 mg PO DAILY #14 tab 05/22/17 Rifampin 2 tab PO DAILY 05/22/17 - Past Medical/Surgical History Has patient received pneumonia vaccine in the past: Yes Diabetic: No -: COPD -: Bronchitis -: Chronic lung infection -: 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 -: Hysterectomy -: Tubal ligation -: tosillectomy -: R leg sx with metal screws -: Patient has had fine-needle aspiration complicated by pneumothorax -: Bronchoscopy at [facility] - Family History Mother -: Cancer Sister -: Cancer Father -: Heart disease Brother -: Lung disease - Social History Smoking Status: Former smoker Alcohol use: Yes CD- Drugs: No Caffeine use: Yes Place of Residence: Home Review of Systems General: As per HPI Physical Examination - Vital Signs Temperature: 97 F Blood Pressure: 90/52 Pulse: 70 Respirations: 20 Pulse Ox (%): 91 - Physical Exam General: Alert, In no apparent distress HEENT: Atraumatic, PERRLA, Mucous membr. moist/pink, EOMI, Sclerae nonicteric Neck: Supple, 2+ carotid pulse no bruit, No LAD, Without JVD or thyroid abnormality Respiratory: Clear to auscultation bilaterally, Normal air movement Cardiovascular: Regular rate/rhythm, Normal S1 S2 Gastrointestinal: Normal bowel sounds, No tenderness Musculoskeletal: No tenderness Integumentary: No rashes Neurological: Normal gait, Normal speech, Normal strength at 5/5 x4 extr, Normal tone, Normal affect Lymphatics: No axilla or inguinal lymphadenopathy - Studies Laboratory Data (last 24 hrs) 05/21/17 20:45: PT 12.2, INR 1.03, APTT 31.9 05/21/17 20:45: WBC 8.2, Hgb 13.2, Hct 40.2, Plt Count 292 05/21/17 20:45: B-Natriuretic Peptide 105 H 05/21/17 20:45: Sodium 138, Potassium 3.8, BUN 11, Creatinine 0.63, Glucose 95, Magnesium 1.7 L D, Total Bilirubin 0.4, AST 23, ALT 16, Alkaline Phosphatase 100 - Diagnosis (Problem(s)) (1) Chest pain Onset Date: 05/22/17 Current Visit: Yes Status: Acute Qualifiers: Chest pain type: unspecified Qualified Code(s): R07.9 - Chest pain, unspecified (2) COPD (chronic obstructive pulmonary disease) Onset Date: 05/22/17 Current Visit: Yes Status: Chronic Qualifiers: COPD type: unspecified COPD Qualified Code(s): J44.9 - Chronic obstructive pulmonary disease, unspecified (3) History of MAC infection Current Visit: Yes Status: Chronic (4) Tobacco abuse Onset Date: 05/22/17 Current Visit: Yes Status: Chronic Treatment Summary: Pt was admitted to the hospital for CHest pain. Troponin x 2 negative, ECHO WNL , Stress test Negative, EKG with no abnormalitis. Pulmonology consulted. Reccs adding levaquin for lung infection. Cardiology consulted. Agreed with plan. Chest pain most likely related to Lung Infection. Pt DC home under stable condition. - Disposition Disposition: ROUTINE DISCHARGE Condition: GOOD Patient Discharge Instructions: Please f/u with Dr Mills in 1 week post discharge. Please f/u with PCP in 1 week post discharge. New medicaiton. Levaquin 500mg Daily. Continue taking all other medication as prescribed. Diet: Regular Activity: Ad veena
[2017-05-22] MEDS ORDERED: ARFORMOTEROL TARTRATE 15 MCG/2 ML VIAL.NEB NEB SCH (20:00)
[2017-05-23] MEDS ORDERED: AZITHROMYCIN 250 MG TAB PO SCH (09:00)
[2017-05-23] MEDS ORDERED: AMIKACIN IM SCH (17:00)
== END 2017-05-22 17:04 | disposition home or self-care (01) ==
LOC: ER 20:13 → INTOOBSV 22:05 → ERHOLD 22:05 → 2ND 23:24
PROVIDERS: ADMIT Internal Medicine; ATTEND Internal Medicine
DX: R07.89 Other chest pain (principal); J44.9 Chronic obstructive pulmonary disease, unspecified; F17.210 Nicotine dependence, cigarettes, uncomplicated; Z23 Encounter for immunization
CPT/HCPCS: 36415; 71045; 71275; 74175; 78452; 80048 ×2; 80076; 82550; 82553; 83735 ×2; 83880; 84484; 85025 ×2; 85610; 85730; 90670; 93005; 93017; 93306; 94760 ×2; 96365; 96372; 96375; 99285; A9500; G0009; G0378 ×2; J1650; J2405; J2785; J3010; J3475; J7030 ×2; Q9967; 81003; 81015

== ENCOUNTER 2018-03-31 16:11 | Emergency (ER) | payer OTHER ==
--- OUTSIDE RECORDS SUMMARY | 2018-03-31 16:12 | XMS REPORT ---
:1960 Author Organization [employer] Care Team Providers Name Role Phone MaliArtur Provider Role Unavailable Allergies, Adverse Reactions, Alerts Substance Reaction Event Type MORPHINE Info Not Available Drug Allergy Problems Problem Type Condition Code Onset Dates Condition Status Problem Encounter for gynecological Z01.419 Active examination without abnormal finding Problem Hot flashes due to menopause N95.1 Active Problem Encounter for screening mammogram Z12.31 Active for breast cancer Assessment Encounter for gynecological Z01.419 Active examination without abnormal finding Assessment Hot flashes due to menopause N95.1 Active Problem Chronic obstructive pulmonary J44.9 Active disease, unspecified COPD type Medications Medication Code Code Instructions Start End Status Dosage System Date Date Incruse Ellipta [facility] 84570111993 62.5 MCG/INH Active 1 puff Inhalation Once a day Hydrocodone [facility] [address]-80 10 MG Orally Active 1 capsule Bitartrate every 12 hrs Paroxetine ND 70020618659 7.5 MG Orally Jan 03, Active 1 capsule Mesylate Once a day 2018 at bedtime Breo Ellipta [facility] 88215577897 200-25 MCG/INH Active 1 puff Inhalation Once a day Results Name Result Date Reference Range Unit Abnormality Flag HPV GENOTYPES 16,18/45 ----HPV 16 RNA DETECTED 20180103 NOT DETECTED A ----HPV 18/45 RNA NOT DETECTED 20180103 NOT DETECTED N IMAGE-GUIDED PAP W/AGE BASED SCR PROTOCOLS URINALYSIS AUTO W/O SCOPE (33299) ----NIT neg [id number] ----URO 0.2 20180108 ----PROTEIN neg [id number] ----pH 5.5 20180108 ----BLO neg [id number] ----GLUCOSE neg [id number] ----OSWALD neg [id number] ----BILIRUBIN neg [id number] ----KETONES neg [id number] ----SPECIFIC GRAVITY 1.010 [id number] THINPREP TIS PAP AND HPV mRNA E6/E7 REFLEX HPV 16,18/45 ----HPV mRNA E6/E7 Detected 20180103 Not Detected A ----PREV. BX: NONE GIVEN 20180103 N ----SOURCE: None given 20180103 N ----LMP: NONE GIVEN 20180103 N ----PREV. PAP: NONE GIVEN 20180103 N ----CLINICAL INFORMATION: None given 20180103 N Summary Purpose [employer] Submission
--- OUTSIDE RECORDS SUMMARY | 2018-03-31 16:12 | XMS REPORT ---
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 Medications Medication Code Code Instructions Start End Status Dosage System Date Date Incruse [facility] 72783193324 62.5 MCG/INH Active 1 puff Ellipta Inhalation Once a day Breo Ellipta [facility] 16434782735 200-25 MCG/INH Active 1 puff Inhalation Once a day [place] [facility] 16648717772 10-325 MG Orally Active 1 tablet every 6 hrs as needed Albuterol [facility] 72436063894 (2.5 MG/3ML) Active 3 ml as Sulfate 0.083% needed Inhalation Three times a day Mobic [facility] 56609357884 7.5 MG Orally Inactive 1 tablet Once a day Results No Known Results Summary Purpose [employer] Submission
--- OUTSIDE RECORDS SUMMARY | 2018-03-31 16:12 | XMS REPORT ---
[...] Medications Medication Code Code Instructions Start End Date Status Dosage System Date Albuterol [facility] 97794102275 (2.5 MG/3ML) Active 3 ml as Sulfate 0.083% needed Inhalation Three times a day Mobic [facility] 36235517569 7.5 MG Orally Sep 06, Active 1 tablet Once a day 2017 [place] [facility] 73025968600 10-325 MG Orally Active 1 tablet every 6 hrs as needed Incruse [facility] 81279443780 62.5 MCG/INH Active 1 puff Ellipta Inhalation Once a day Breo Ellipta [facility] 72635669984 200-25 MCG/INH Active 1 puff Inhalation Once a day Results No Known Results Summary Purpose [employer]Works Submission
--- OUTSIDE RECORDS SUMMARY | 2018-03-31 16:12 | XMS REPORT ---
:1960 Author Organization [employer] Care Team Providers Name Role Phone Artur Samson Provider Role Unavailable Allergies, Adverse Reactions, Alerts Substance Reaction Event Type MORPHINE Info Not Available Drug Allergy Problems Problem Type Condition Code Onset Dates Condition Status Problem Encounter for gynecological Z01.419 Active examination without abnormal finding Problem Hot flashes due to menopause N95.1 Active Problem Encounter for screening mammogram Z12.31 Active for breast cancer Assessment Vaginal high risk HPV DNA test R87.811 Active positive Assessment Other abnormal cytological finding R87.618 Active of specimen from cervix Problem Chronic obstructive pulmonary J44.9 Active disease, unspecified COPD type Medications Medication Code Code Instructions Start End Status Dosage System Date Date Incruse Ellipta [facility] 46068219668 62.5 MCG/INH Active 1 puff Inhalation Once a day Paroxetine [facility] [address]-27 10 MG Orally Jan 03, Active 1 capsule Mesylate Once a day 2017 at bedtime Hydrocodone [facility] [address]-53 10 MG Orally Active 1 capsule Bitartrate every 12 hrs Paroxetine HCl ND 82837506706 10 MG Orally Jan 07, Active 1 capsule Once a day 2018 at bedtime Breo Ellipta [facility] 58712658014 200-25 MCG/INH Active 1 puff Inhalation Once a day Results No Known Results Summary Purpose [employer]Works Submission
[2018-03-31 17:15] LABS: Absolute Lymphocytes (CBC) 1.1 K/uL (0.7-4.9); Absolute Monocytes 0.8 K/uL (0.1-1.3); Absolute Neutrophil 8.5 K/uL (1.8-8.0); Basophils % 0.8 % (0-1.3); Hematocrit 37.1 % (36.0-45.0); Lymphocytes % 10.2 % (15.3-44.8); MPV 7.9 fL (7.6-11.3); Monocytes % 7.6 % (3.3-12.3); RBC Red Blood Cell Count 4.25 M/uL (3.86-4.86)
[2018-03-31] MEDS ORDERED: NA CHLORIDE 0.9% 1,000 ML ONE (17:21)
[2018-03-31] MEDS ORDERED: FENTANYL CITR 100 MCG/2 ML ONE ×2 (17:21→19:31)
[2018-03-31] MEDS ORDERED: ONDANSETRON 4 MG/2 ML VIAL ONE (17:21)
[2018-03-31 17:37] LABS: Albumin 3.4 g/dL (3.4-5.0); Bilirubin Direct 0.1 mg/dL (0-0.2); Bilirubin Total 0.4 mg/dL (0.2-1.0); Potassium 4.2 mmol/L (3.5-5.1); Protein, Total 7.9 g/dL (6.4-8.2)
--- NOTE | 2018-03-31 18:20 | RAD REPORT ---
EXAM DESCRIPTION: CT - Abdomen Pelvis W Contrast - 03/31/2018 6:07 pm CLINICAL HISTORY: Abdominal pain/left-sided abdominal pain. COMPARISON: February 2017 TECHNIQUE: Computed axial tomography of the abdomen pelvis was obtained. 100 cc Isovue-300 was admin istered intravenously. Oral contrast was not requested which limits evaluation of bowel. All CT scans are performed using dose optimization technique as appropriate and may include automated exposure control or mA/KV adjustment according to patient size. FINDINGS: Moderate left lower lobe alveolar opacities The liver, spleen, pancreas, and adrenals appear unremarkable. Bilateral renal cysts. Largest extends off the lower pole left kidney measuring 25 millimeters There is no evidence of diverticulitis. Hysterectomy has been performed. IMPRESSION: Moderate left lower lobe pneumonia. This should be followed until it has cleared with ch est x-rays to exclude a post obstructive process/underlying mass
[2018-03-31] MEDS ORDERED: KETOROLAC 30 MG/ML INJ ONE (19:32)
[2018-03-31] MEDS ORDERED: CEFTRIAXONE/SWI 1gm 1 GM/10 ML SYR ONE (20:03)
--- NOTE | 2018-03-31 20:33 | EDPHYS ---
Physician Documentation [facility] Name: Kallie Correia Age: 57 yrs Sex: Female : 1960 Arrival Date: 03/31/2018 Time: 16:13 Bed 19 Private MD: ED Physician Miguel Angel Quezada HPI: 03/31 16:47 This 57 yrs old Female presents to ER via Ambulatory with complaints of Side jmm Pain, Abdominal Pain. 16:47 The patient presents with abdominal pain in the left upper quadrant, in the left lower jmm quadrant. Onset: The symptoms/episode began/occurred gradually, 5 day(s) ago. Associated signs and symptoms: Pertinent positives: shortness of breath. 16:47 This is a 57 year old female with a history of copd that presents to the ED with jmm complaints of left flank pain, shortness of breath, cough beginning approx 5 days ago. Patient complains of dypnea on exertion. . Historical: - Allergies: 16:15 Morphine; hb - PMHx: 16:15 COPD; Emphysema; hb - Immunization history:: Adult Immunizations not up to date. - Social history:: Smoking status: Patient uses tobacco products. - Ebola Screening: : Patient negative for fever greater than or equal to 101.5 degrees Fahrenheit, and additional compatible Ebola Virus Disease symptoms Patient denies exposure to infectious person Patient denies travel to an Ebola-affected area in the 21 days before illness onset No symptoms or risks identified at this time. ROS: 16:47 Constitutional: Negative for fever, chills, and weight loss, Cardiovascular: Negative jmm for chest pain, palpitations, and edema. 16:47 Respiratory: Positive for cough, shortness of breath. 16:47 Abdomen/GI: Positive for abdominal pain. 16:47 Back: Positive for flank pain, on the left. 16:47 All other systems are negative. Exam: 16:47 Head/Face: atraumatic. Eyes: EOMI, no conjunctival erythema appreciated ENT: Moist jmm Mucus Membranes Neck: Trachea midline, Supple Chest/axilla: Normal chest wall appearance and motion. 16:47 Constitutional: The patient appears alert, awake, uncomfortable. 16:47 Cardiovascular: Rate: normal, Rhythm: regular. 16:47 Respiratory: the patient does not display signs of respiratory distress, Respirations: normal, Breath sounds: are clear throughout. 16:47 Abdomen/GI: Inspection: abdomen appears normal, Bowel sounds: normal, Palpation: soft, mild abdominal tenderness, in the left lower quadrant. 16:47 Back: ROM is normal, CVA tenderness, that is moderate, is noted on the left. 16:47 Musculoskeletal/extremity: ROM: intact in all extremities. 16:47 Skin: Appearance: Color: normal in color. 16:47 Neuro: Orientation: is normal, Mentation: is normal, Memory: is normal. 16:47 Psych: Behavior/mood is pleasant, cooperative. Vital Signs: 16:22 BP 119 / 74; Pulse 112; Resp 18; Temp 98.6; Pulse Ox 96% ; Pain 9/10; hb 17:00 BP 112 / 70; Pulse 96; Resp 18; Pulse Ox 99% on R/A; Pain 9/10; em 19:15 BP 102 / 75; Pulse 82; Resp 19 S; Temp 98.9(O); Pulse Ox 97% on R/A; cc3 20:07 BP 102 / 59; Pulse 82; Resp 19 S; Pulse Ox 96% on R/A; cc3 MDM: 16:47 Patient medically screened. [facility] 20:31 Data reviewed: vital signs, nurses notes. Counseling: I had a detailed discussion with sarah the patient and/or guardian regarding: the historical points, exam findings, and any diagnostic results supporting the discharge/admit diagnosis, lab results, radiology results, the need for outpatient follow up, to return to the emergency department if symptoms worsen or persist or if there are any questions or concerns that arise at home. ED course: Patient shows no signs of resp distress in the ED. patient pain is decreased. patient is alert and non toxic in appearance in the ED. Patient will follow up with dr. casanova and is otherwise given strict return precautions. patient understood and agrees with the plan of care. . 03/31 16:48 Order name: Basic Metabolic Panel; Complete Time: 17:45 [facility] 03/31 16:48 Order name: CBC with Diff; Complete Time: 17:21 [facility] 03/31 16:48 Order name: Creatinine for Radiology; Complete Time: 17:45 [facility] 03/31 16:48 Order name: Hepatic Function; Complete Time: 17:45 [facility] 03/31 16:48 Order name: Lipase; Complete Time: 17:45 [facility] 03/31 16:50 Order name: Urine Dipstick--Ancillary (enter results) ms 03/31 16:48 Order name: CT Abd/Pelvis - W/Contrast; Complete Time: 18:26 [facility] 03/31 18:27 Order name: Procalcitonin; Complete Time: 20:27 [facility] 03/31 18:27 Order name: Lactate; Complete Time: 19:49 [facility] 03/31 18:27 Order name: Blood Culture Adult (2) [facility] 03/31 16:48 Order name: IV Saline Lock; Complete Time: 17:43 [facility] 03/31 16:48 Order name: Labs collected and sent; Complete Time: 17:43 [facility] Administered Medications: 17:16 Drug: NS 0.9% 1000 ml Route: IV; Rate: 1 bolus; Site: right antecubital; em 17:22 Drug: Zofran 4 mg Route: IVP; Site: right antecubital; hb 18:59 Follow up: Response: No adverse reaction em 17:22 Drug: fentaNYL (PF) 50 mcg Route: IVP; Site: right antecubital; hb 19:00 Follow up: Response: No adverse reaction; Pain is unchanged, physician notified cc3 17:50 Drug: fentaNYL (PF) 50 mcg Route: IVP; Site: right antecubital; em 18:59 Follow up: Response: No adverse reaction; Pain is unchanged, physician notified em 19:23 Drug: fentaNYL (PF) 50 mcg Route: IVP; Site: right antecubital; cc3 20:01 Follow up: Response: No adverse reaction; Pain is decreased cc3 19:27 Drug: Ketorolac 30 mg Route: IVP; Site: right antecubital; cc3 20:01 Follow up: Response: No adverse reaction; Pain is decreased cc3 19:50 Drug: Rocephin - (cefTRIAXone) 1 grams Route: IVPB; Infused Over: 30 mins; Site: right cc3 antecubital; 20:10 Follow up: Response: No adverse reaction; IV Status: Completed infusion cc3 Disposition: 04/01 08:02 Co-signature as Attending Physician, Miguel Angel Quezada MD I agree with the assessment and nasreen plan of care. Disposition: 03/31/18 20:33 Discharged to Home. Impression: Pneumonia. - Condition is Stable. - Discharge Instructions: Community-Acquired Pneumonia, Adult. - Prescriptions for Zithromax Z- Marek 250 mg Oral Tablet - take 1 tablet by ORAL route as directed for 5 days Day 1 - take two (2) tablets one time. Day 2, 3, 4 , 5 take one (1) tablet once daily.; 6 tablet. - Medication Reconciliation Form, Thank You Letter, Antibiotic Education, Prescription Opioid Use form. - Follow up: Private Physician; When: 2 - 3 days; Reason: Recheck today's complaints, Continuance of care, Re-evaluation by your physician. Signatures: Dispatcher [employer] EDMS Miguel Angel Quezada MD MD cha Mickail, Joel, PA PA jmm Munoz, Edgar, [facility] Idalmis Enrique RN RN Myriam Stone cc3 Corrections: (The following items were deleted from the chart) 03/31 20:47 20:33 03/31/2018 20:33 Discharged to Home. Impression: Pneumonia. Condition is Stable. cc3 Forms are Medication Reconciliation Form, Thank You Letter, Antibiotic Education, Prescription Opioid Use. Follow up: Private Physician; When: 2 - 3 days; Reason: Recheck today's complaints, Continuance of care, Re-evaluation by your physician. sarah
--- NOTE | 2018-03-31 20:33 | ER ---
Nurse's Notes [facility] Name: Kallie Correia Age: 57 yrs Sex: Female : 1960 Arrival Date: 03/31/2018 Time: 16:13 Bed 19 Private MD: Diagnosis: Pneumonia Presentation: 03/31 16:21 Presenting complaint: LLQ pain that radiates to left low back x 5 days. Denies urinary hb s/s. Transition of care: patient was not received from another setting of care. Onset of symptoms was March 26, 2018. Risk Assessment: Do you want to hurt yourself or someone else? Patient reports no desire to harm self or others. Care prior to arrival: None. 16:21 Method Of Arrival: Ambulatory hb 16:21 Acuity: BENJI 3 hb 19:00 Initial Sepsis Screen: Does the patient meet any 2 criteria? No. Patient's initial cc3 sepsis screen is negative. Does the patient have a suspected source of infection? No. Patient's initial sepsis screen is negative. Historical: - Allergies: 16:15 Morphine; hb - PMHx: 16:15 COPD; Emphysema; hb - Immunization history:: Adult Immunizations not up to date. - Social history:: Smoking status: Patient uses tobacco products. - Ebola Screening: : Patient negative for fever greater than or equal to 101.5 degrees Fahrenheit, and additional compatible Ebola Virus Disease symptoms Patient denies exposure to infectious person Patient denies travel to an Ebola-affected area in the 21 days before illness onset No symptoms or risks identified at this time. Screenin:00 Abuse screen: Denies threats or abuse. Nutritional screening: No deficits noted. em Tuberculosis screening: No symptoms or risk factors identified. Fall Risk None identified. Assessment: 17:00 General: Appears in no apparent distress. uncomfortable, Behavior is calm, cooperative, em Denies fever. Pain: Complains of pain in left lower quadrant Pain currently is 9 out of 10 on a pain scale. Quality of pain is described as sharp, stabbing, Pain began 5 days ago. Neuro: Level of Consciousness is awake, alert, obeys commands, Oriented to person, place, time, situation. Cardiovascular: Capillary refill < 3 seconds Patient's skin is warm and dry. Respiratory: Reports cough that is productive, since for 1 week Airway is patent Respiratory effort is even, unlabored, Respiratory pattern is regular, symmetrical, Breath sounds are clear bilaterally. GI: Abdomen is flat, Bowel sounds present X 4 quads. Abd is soft X 4 quads Abdomen is tender to palpation in left lower quadrant Patient currently denies diarrhea, nausea, vomiting. : Denies burning with urination, urinary frequency. Derm: Skin is intact, is healthy with good turgor, Skin is pink, warm \T\ dry. Musculoskeletal: Range of motion: intact in all extremities. 17:45 Reassessment: reports pain medication worked for a little bit now pain is back, em provider notified, new pain medications ordered. 18:34 Reassessment: Patient appears in no apparent distress at this time. Patient and/or em family updated on plan of care and expected duration. Pain level reassessed. Patient is alert, oriented x 3, equal unlabored respirations, skin warm/dry/pink. 19:15 Reassessment: Patient appears in no apparent distress at this time. Patient and/or cc3 family updated on plan of care and expected duration. Pain level reassessed. Patient is alert, oriented x 3, equal unlabored respirations, skin warm/dry/pink. Received this female patient from morning shift [facility] as a case of pneumonia, with IV cannula gauge 20 at the right ACV saline locked. 20:10 Reassessment: Patient appears in no apparent distress at this time. Patient and/or cc3 family updated on plan of care and expected duration. Pain level reassessed. Patient is alert, oriented x 3, equal unlabored respirations, skin warm/dry/pink. 20:40 Reassessment: CYDNEY Jade discharged the patient home with prescription given. IV cc3 cannula removed and patient left ER vitally stable and ambulatory with her daughter. Vital Signs: 16:22 BP 119 / 74; Pulse 112; Resp 18; Temp 98.6; Pulse Ox 96% ; Pain 9/10; hb 17:00 BP 112 / 70; Pulse 96; Resp 18; Pulse Ox 99% on R/A; Pain 9/10; em 19:15 BP 102 / 75; Pulse 82; Resp 19 S; Temp 98.9(O); Pulse Ox 97% on R/A; cc3 20:07 BP 102 / 59; Pulse 82; Resp 19 S; Pulse Ox 96% on R/A; cc3 ED Course: 16:13 Patient arrived in ED. ds1 16:15 Arm band placed on. hb 16:22 Triage completed. hb 16:29 Robert Salas LVN is Primary Nurse. em 16:41 Thiago Jade PA is PHCP. jmm 16:41 Miguel Angel Quezada MD is Attending Physician. jmm 17:00 Patient has correct armband on for positive identification. Bed in low position. Call em light in reach. Side rails up X2. Adult w/ patient. Pulse ox on. NIBP on. 17:00 Initial lab(s) drawn, by me, sent to lab. Inserted saline lock: 20 gauge in right em antecubital area, using aseptic technique. Blood collected. 18:08 CT Abd/Pelvis - W/Contrast In Process Unspecified. EDMS 18:08 CT completed. Patient tolerated procedure well. Patient moved back from CT. kw1 20:40 No provider procedures requiring assistance completed. IV discontinued, intact, cc3 bleeding controlled, No redness/swelling at site. Pressure dressing applied. Administered Medications: 17:16 Drug: NS 0.9% 1000 ml Route: IV; Rate: 1 bolus; Site: right antecubital; em 17:22 Drug: Zofran 4 mg Route: IVP; Site: right antecubital; hb 18:59 Follow up: Response: No adverse reaction em 17:22 Drug: fentaNYL (PF) 50 mcg Route: IVP; Site: right antecubital; hb 19:00 Follow up: Response: No adverse reaction; Pain is unchanged, physician notified cc3 17:50 Drug: fentaNYL (PF) 50 mcg Route: IVP; Site: right antecubital; em 18:59 Follow up: Response: No adverse reaction; Pain is unchanged, physician notified em 19:23 Drug: fentaNYL (PF) 50 mcg Route: IVP; Site: right antecubital; cc3 20:01 Follow up: Response: No adverse reaction; Pain is decreased cc3 19:27 Drug: Ketorolac 30 mg Route: IVP; Site: right antecubital; cc3 20:01 Follow up: Response: No adverse reaction; Pain is decreased cc3 19:50 Drug: Rocephin - (cefTRIAXone) 1 grams Route: IVPB; Infused Over: 30 mins; Site: right cc3 antecubital; 20:10 Follow up: Response: No adverse reaction; IV Status: Completed infusion cc3 Outcome: 20:33 Discharge ordered by . sarah 20:40 Discharged to home ambulatory, with family. cc3 20:40 Condition: stable 20:40 Discharge instructions given to patient, family, Instructed on discharge instructions, follow up and referral plans. medication usage, Demonstrated understanding of instructions, follow-up care, medications, Prescriptions given X 1. 20:47 Patient left the ED. cc3 Signatures: Dispatcher [employer] EDMS Thiago Jade PA PA jmm Munoz, Edgar, FOUNDRY METALLURGIST FOUNDRY METALLURGIST Megan Melgar ds1 Idalmis Quinones RN RN Luciana Handley1 Myriam Stock cc3 Corrections: (The following items were deleted from the chart) 18:35 17:00 Respiratory: Airway is patent Respiratory effort is even, unlabored, Respiratory em pattern is regular, symmetrical, Breath sounds are clear bilaterally. em
[2018-03-31 20:39] LABS: Urine Blood NEGATIVE (NEG); Urine Glucose NEGATIVE (NEG); Urine Protein NEGATIVE (NEG); Urine pH 8.5 (5.0-7.0)
[2018-03-31 21:32] VITALS: TEMP 98.9
[2018-03-31 21:34] VITALS: BP 102/59; O2SAT 96
== END 2018-03-31 20:47 | disposition home or self-care (01) ==
LOC: ER 16:11
DX: J18.9 Pneumonia, unspecified organism (principal); J44.9 Chronic obstructive pulmonary disease, unspecified; Z88.5 Allergy status to narcotic agent
CPT/HCPCS: 36415; 74177; 80048; 80076; 81003; 83605; 83690; 84145; 85025; 87040 ×2; 87205; 96365; 96375; 99284; J0696; J2405; J3010 ×2; J7030; Q9967

== ENCOUNTER 2018-05-02 23:41 | Emergency (ER) | payer OTHER ==
--- OUTSIDE RECORDS SUMMARY | 2018-05-02 23:43 | XMS REPORT ---
[...] End Status Dosage System Date Date Incruse [facility] 90644762732 62.5 MCG/INH Active 1 puff Ellipta Inhalation Once a day Breo Ellipta [facility] 96262328870 200-25 MCG/INH Active 1 puff Inhalation Once a day [place] [facility] 53438420452 10-325 MG Orally Active 1 tablet every 6 hrs as needed Albuterol [facility] 31628660260 (2.5 MG/3ML) Active 3 ml as Sulfate 0.083% needed Inhalation Three times a day Mobic [facility] 63859470364 7.5 MG Orally Inactive 1 tablet Once a day Results No Known Results Summary Purpose eClinicalWorks Submission
--- OUTSIDE RECORDS SUMMARY | 2018-05-02 23:43 | XMS REPORT ---
[...] Status Dosage System Date Date Incruse Ellipta [facility] 52090594503 62.5 MCG/INH Active 1 puff Inhalation Once a day Hydrocodone [facility] [address]-93 10 MG Orally Active 1 capsule Bitartrate every 12 hrs Paroxetine ND 94181221292 7.5 MG Orally Jan 03, Active 1 capsule Mesylate Once a day 2018 at bedtime Breo Ellipta [facility] 90599966249 200-25 MCG/INH Active 1 puff Inhalation Once a day Results Name Result Date Reference Range Unit Abnormality Flag HPV GENOTYPES 16,18/45 ----HPV 16 RNA DETECTED 20180103 NOT DETECTED A ----HPV 18/45 RNA NOT DETECTED 20180103 NOT DETECTED N IMAGE-GUIDED PAP W/AGE BASED SCR PROTOCOLS URINALYSIS AUTO W/O SCOPE (20755) ----NIT neg [id number] ----URO 0.2 20180108 ----PROTEIN neg [id number] ----pH 5.5 20180108 ----BLO neg [id number] ----GLUCOSE neg [id number] ----OSWALD neg [id number] ----BILIRUBIN neg [id number] ----KETONES neg [id number] ----SPECIFIC GRAVITY 1.010 [id number] THINPREP TIS PAP AND HPV mRNA E6/E7 REFLEX HPV 16,18/45 ----HPV mRNA E6/E7 Detected 20180103 Not Detected A ----PREV. BX: NONE GIVEN 20180103 N ----SOURCE: None given 20180103 N ----LMP: NONE GIVEN 20180103 N ----PREV. PAP: NONE GIVEN 20180103 N ----CLINICAL INFORMATION: None given 20180103 N Summary Purpose eClinicalWorks Submission
--- OUTSIDE RECORDS SUMMARY | 2018-05-02 23:43 | XMS REPORT ---
[...] Status Dosage System Date Date Incruse Ellipta [facility] 87244958823 62.5 MCG/INH Active 1 puff Inhalation Once a day Paroxetine [facility] [address]-06 10 MG Orally Jan 03, Active 1 capsule Mesylate Once a day 2017 at bedtime Hydrocodone [facility] [address]-09 10 MG Orally Active 1 capsule Bitartrate every 12 hrs Paroxetine HCl ND 46174315362 10 MG Orally Jan 07, Active 1 capsule Once a day 2018 at bedtime Breo Ellipta [facility] 37491701353 200-25 MCG/INH Active 1 puff Inhalation Once a day Results No Known Results Summary Purpose eClinicalWorks Submission
--- OUTSIDE RECORDS SUMMARY | 2018-05-02 23:43 | XMS REPORT ---
[...] End Date Status Dosage System Date Albuterol [facility] 61416761772 (2.5 MG/3ML) Active 3 ml as Sulfate 0.083% needed Inhalation Three times a day Mobic [facility] 52374160054 7.5 MG Orally Sep 06, Active 1 tablet Once a day 2017 [place] [facility] 62465907120 10-325 MG Orally Active 1 tablet every 6 hrs as needed Incruse [facility] 80037732241 62.5 MCG/INH Active 1 puff Ellipta Inhalation Once a day Breo Ellipta [facility] 28843534989 200-25 MCG/INH Active 1 puff Inhalation Once a day Results No Known Results Summary Purpose eClinicalWorks Submission
[2018-05-03 00:19] LABS: Absolute Lymphocytes (CBC) 1.8 K/uL (0.7-4.9); Absolute Neutrophil 7.8 K/uL (1.8-8.0); Basophils % 0.8 % (0-1.3); Eosinophils % 2.6 % (0-4.4); Hematocrit 39.5 % (36.0-45.0); Lymphocytes % 16.2 % (15.3-44.8); MPV 7.4 fL (7.6-11.3); Monocytes % 9.4 % (3.3-12.3); RBC Red Blood Cell Count 4.58 M/uL (3.86-4.86)
[2018-05-03] MEDS ORDERED: FENTANYL CITR 100 MCG/2 ML ONE ×2 (00:45→02:10)
[2018-05-03 02:02] LABS: Protime INR 1.04
[2018-05-03 02:24] LABS: ALT/SGPT 39 U/L (12-78); AST/SGOT 35 U/L (15-37); Albumin 3.4 g/dL (3.4-5.0); Alkaline Phosphatase 123 U/L (45-117); BUN Blood Urea Nitrogen 7 mg/dL (7-18); Bicarbonate 28 mmol/L (21-32); Bilirubin Direct 0.1 mg/dL (0-0.2); Bilirubin Total 0.3 mg/dL (0.2-1.0); Glucose Level 96 mg/dL (74-106); Lipase 44 U/L (73-393); Magnesium 1.7 mg/dL (1.8-2.4); NT PRO-BNP 49 pg/mL (<125); Potassium 3.4 mmol/L (3.5-5.1); Protein, Total 7.8 g/dL (6.4-8.2); Sodium Level 139 mmol/L (136-145); Troponin (Emerg Dept Use Only) < 0.02 ng/mL (0.0-0.045)
[2018-05-03 03:04] LABS: Thyroid Stimulating Hormone 4.32 uIU/mL (0.360-3.740)
--- NOTE | 2018-05-03 04:19 | EDPHYS ---
Physician Documentation [facility] Name: Kallie Correia Age: 57 yrs Sex: Female : 1960 Arrival Date: 05/02/2018 Time: 23:43 Bed 8 Private MD: ED Physician Michael Coleman Historical: - Allergies: 05/02 23:54 Morphine; aa1 - Home Meds: 23:54 [place] 7.5-325 mg Oral tab [Active]; aa1 - PMHx: 23:54 COPD; Emphysema; "frozen shoulder"; Non-tuberculin Mycoplasma; aa1 - PSHx: 23:54 Tonsillectomy; Hysterectomy; aa1 - Immunization history:: Pneumococcal vaccine is up to date, Flu vaccine is not up to date. - Social history:: Smoking status: Patient/guardian denies using tobacco, the patient reports quitting approximately 1 years ago. - Ebola Screening: : Patient denies exposure to infectious person Patient denies travel to an Ebola-affected area in the 21 days before illness onset. Vital Signs: 23:54 BP 147 / 80; Pulse 129; Resp 18; Temp 99.7(O); Pulse Ox 93% on R/A; Weight 58.06 kg; aa1 Height 5 ft. 3 in. (160.02 cm); Pain 9/10; 05/03 01:34 BP 130 / 79; Pulse 88; Resp 18; Pulse Ox 96% on R/A; Pain 8/10; lp1 02:55 BP 140 / 89; Pulse 101; Resp 18 S; Pulse Ox 97% on R/A; jd3 04:20 BP 113 / 74; Pulse 110; Resp 19 S; Pulse Ox 95% on R/A; jd3 05/02 23:54 Body Mass Index 22.67 (58.06 kg, 160.02 cm) aa1 MDM: 00:23 Patient medically screened. 05/02 23:55 Order name: Basic Metabolic Panel; Complete Time: 04:13 05/02 23:55 Order name: CBC with Diff; Complete Time: 00:24 05/02 23:55 Order name: LFT's; Complete Time: 04:13 05/02 23:55 Order name: Magnesium; Complete Time: 04:13 05/02 23:55 Order name: NT PRO-BNP; Complete Time: 04:13 05/02 23:55 Order name: PT-INR; Complete Time: 04:13 05/02 23:55 Order name: Troponin (emerg Dept Use Only); Complete Time: 04:13 05/02 23:55 Order name: XRAY Chest (1 view) 05/02 23:55 Order name: Lipase; Complete Time: 04:13 05/03 00:27 Order name: TSH; Complete Time: 04:13 05/03 00:27 Order name: CT Chest For PE Angio 05/03 02:00 Order name: Creatinine (Radiology Only); Complete Time: 04:13 EDMS 05/03 03:06 Order name: T4 Free; Complete Time: 04:13 EDID 05/02 23:55 Order name: EKG; Complete Time: 23:55 05/02 23:55 Order name: Cardiac monitoring; Complete Time: 00:28 05/02 23:55 Order name: EKG - Nurse/Tech; Complete Time: 00:17 05/02 23:55 Order name: IV Saline Lock; Complete Time: 00:17 05/02 23:55 Order name: Labs collected and sent; Complete Time: 00:17 05/02 23:55 Order name: O2 Per Protocol; Complete Time: 00:17 05/02 23:55 Order name: O2 Sat Monitoring; Complete Time: 00:17 gs Administered Medications: 00:38 Drug: fentaNYL (PF) 50 mcg Route: IVP; Site: right antecubital; jd3 02:02 Follow up: Response: No adverse reaction jd3 02:02 Drug: fentaNYL (PF) 50 mcg Route: IVP; Site: right antecubital; jd3 04:21 Follow up: Response: No adverse reaction jd3 04:25 Drug: Alton 10 mg-325 mg 1 tabs Route: PO; jd3 04:25 Follow up: Response: Medication administered at discharge. jd3 Disposition: 05/03/18 04:19 Discharged to Home. Impression: Chest pain, unspecified. - Condition is Stable. - Discharge Instructions: Nonspecific Chest Pain, Pleurisy. - Medication Reconciliation Form, Thank You Letter, Antibiotic Education, Prescription Opioid Use form. - Follow up: Private Physician; When: 1 - 2 days; Reason: Re-evaluation by your physician. Addendum: 05/21/2018 11:01 Addendum: CC-CHEST PAIN, HPI-LEFT SIDED SHARP WORSE WITH DEEP BREATHING RADIATES TO g s BACK EPISODES WAX AND WANE VERY BRIEF HAS HAD BEFORE NO RELIEVING FACTORS SIMILAR EPISODES IN THE PAST. PMH-NN,MED,ALLERGIES REVIEWED ROS-ALL REVIEWED AND NEGATIVE PE- GEN NO DISTRESS HEAD - NORMAL NO DEFORMITY OR INJURY HEENT - TM AND OP NO ERYTHEMA NECK- NO MASS NO NODE CV-SINUS TACHY NO MURMUR P- LUNGS CLEAR NO TACHYPNEA GI- ABD SOFT NONTENDER SKIN - NO RASH NEURO CN MOTOR SENSORY INTACT NORMAL MS- NO DEFORMITY GOO PERFUSION MDM-DDX CAD,NE,PNEUMONIA,TAD,PE REVIEWED LABS RAD EKG(NO STEMI) DISCUSSED WITH PATIENT PAIN RESOLVED WILL DISCHARGE. Signatures: Dispatcher [employer] EDYudy Macdonald RN RN aa1 Renata Bansal RN RN lp1 Michael Coleman MD MD gs Davies, Jonathon, RN RN jd3 Corrections: (The following items were deleted from the chart) 05/03 04:33 04:19 05/03/2018 04:19 Discharged to Home. Impression: Chest pain, unspecified. jd3 Condition is Stable. Forms are Medication Reconciliation Form, Thank You Letter, Antibiotic Education, Prescription Opioid Use. Follow up: Private Physician; When: 1 - 2 days; Reason: Re-evaluation by your physician. gs
--- NOTE | 2018-05-03 04:19 | ER ---
Nurse's Notes [facility] Name: Kallie Correia Age: 57 yrs Sex: Female : 1960 Arrival Date: 05/02/2018 Time: 23:43 Bed 8 Private MD: Diagnosis: Chest pain, unspecified Presentation: 05/02 23:48 Presenting complaint: Patient states: pain in chest in diaphragm region that wraps aa1 around to her back and up to her neck. 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 Transition of care: patient was not received from another setting of care. Onset of symptoms was May 02, 2018. Risk Assessment: Do you want to hurt yourself or someone else? Patient reports no desire to harm self or others. Initial Sepsis Screen: Does the patient meet any 2 criteria? HR > 90 bpm. Does the patient have a suspected source of infection? No. Patient's initial sepsis screen is negative. Care prior to arrival: None. 23:48 Method Of Arrival: Ambulatory aa1 23:48 Acuity: BENJI 3 aa1 Triage Assessment: 23:54 General: Appears in no apparent distress. uncomfortable. aa1 Historical: - Allergies: 23:54 Morphine; aa1 - Home Meds: 23:54 [place] 7.5-325 mg Oral tab [Active]; aa1 - PMHx: 23:54 COPD; Emphysema; "frozen shoulder"; Non-tuberculin Mycoplasma; aa1 - PSHx: 23:54 Tonsillectomy; Hysterectomy; aa1 - Immunization history:: Pneumococcal vaccine is up to date, Flu vaccine is not up to date. - Social history:: Smoking status: Patient/guardian denies using tobacco, the patient reports quitting approximately 1 years ago. - Ebola Screening: : Patient denies exposure to infectious person Patient denies travel to an Ebola-affected area in the 21 days before illness onset. Screenin/29 00:49 Abuse screen: Denies threats or abuse. Nutritional screening: No deficits noted. jd3 Tuberculosis screening: No symptoms or risk factors identified. Fall Risk Ambulatory Aid- None/Bed Rest/Nurse Assist (0 pts). Gait- Normal/Bed Rest/Wheelchair (0 pts) Mental Status- Oriented to own ability (0 pts). Total Quiñones Fall Scale indicates No Risk (0-24 pts). Assessment: 00:18 General: Appears uncomfortable, Behavior is cooperative, appropriate for age, anxious. jd3 Pain: Complains of pain in chest Pain radiates to abdomen and left arm Pain began 1 day ago. Neuro: Level of Consciousness is awake, alert, obeys commands, Oriented to person, place, time, situation, Appropriate for age. Cardiovascular: Reports chest pain, Heart tones present Capillary refill < 3 seconds Patient's skin is warm and dry. Rhythm is regular. Respiratory: Reports shortness of breath at rest Airway is patent Respiratory effort is even, labored, Respiratory pattern is regular, symmetrical, Breath sounds are clear bilaterally. GI: No signs and/or symptoms were reported involving the gastrointestinal system. : No signs and/or symptoms were reported regarding the genitourinary system. EENT: No signs and/or symptoms were reported regarding the EENT system. Derm: Skin is intact, Skin is dry, Skin is normal, Skin temperature is warm. Musculoskeletal: Circulation, motion, and sensation intact. Range of motion: intact in all extremities. 01:34 Reassessment: Patient states pain to epigastric area that is returning at this time; lp1 Sitting at side of bed, discomfort noted. 01:55 Reassessment: pt reporting pain, provider notified, new order received. jd3 02:07 Reassessment: Patient appears in no apparent distress at this time. Patient and/or jd3 family updated on plan of care and expected duration. Pain level reassessed. Patient is alert, oriented x 3, equal unlabored respirations, skin warm/dry/pink. 02:56 Reassessment: Patient appears in no apparent distress at this time. Patient and/or jd3 family updated on plan of care and expected duration. Pain level reassessed. Patient is alert, oriented x 3, equal unlabored respirations, skin warm/dry/pink. pt returned from CT scan with electronic prepress technician. 03:30 Reassessment: Patient appears in no apparent distress at this time. Patient and/or jd3 family updated on plan of care and expected duration. Pain level reassessed. Patient is alert, oriented x 3, equal unlabored respirations, skin warm/dry/pink. 04:20 Reassessment: Patient appears in no apparent distress at this time. Patient and/or jd3 family updated on plan of care and expected duration. Pain level reassessed. Patient is alert, oriented x 3, equal unlabored respirations, skin warm/dry/pink. Vital Signs: 05/02 23:54 BP 147 / 80; Pulse 129; Resp 18; Temp 99.7(O); Pulse Ox 93% on R/A; Weight 58.06 kg; aa1 Height 5 ft. 3 in. (160.02 cm); Pain 9/10; 05/03 01:34 BP 130 / 79; Pulse 88; Resp 18; Pulse Ox 96% on R/A; Pain 8/10; lp1 02:55 BP 140 / 89; Pulse 101; Resp 18 S; Pulse Ox 97% on R/A; jd3 04:20 BP 113 / 74; Pulse 110; Resp 19 S; Pulse Ox 95% on R/A; jd3 05/02 23:54 Body Mass Index 22.67 (58.06 kg, 160.02 cm) aa1 ED Course: 05/02 23:43 Patient arrived in ED. es 23:53 Triage completed. aa1 23:54 Michael Coleman MD is Attending Physician. gs 23:54 Arm band placed on right wrist. aa1 05/03 00:05 Zander Jimenez, JEANETTE is Primary Nurse. jd3 00:11 Inserted saline lock: 20 gauge in right antecubital area, using aseptic technique. lp1 Blood collected. 00:29 X-ray completed. Portable x-ray completed in exam room. Patient tolerated procedure kw well. 00:30 XRAY Chest (1 view) In Process Unspecified. EDMS 00:50 Patient has correct armband on for positive identification. Placed in gown. Bed in low jd3 position. Call light in reach. Side rails up X 1. Adult w/ patient. conveyor monitor on. Pulse ox on. NIBP on. 00:50 Patient maintains SpO2 saturation greater than 95% on room air. jd3 01:45 Lab(s) recollected, by me, sent to lab. lp1 01:51 Radiology exam delayed due to lab results not completed at this time. (BUN/Creatinine). kw1 02:15 Radiology exam delayed due to lab results not completed at this time. (BUN/Creatinine). kw1 02:[address] via wheelchair. kw1 02:57 CT completed. Patient tolerated procedure well. Patient moved back from CT. kw1 03:17 CT Chest For PE Angio In Process Unspecified. EDMS 04:32 No provider procedures requiring assistance completed. IV discontinued, intact, jd3 bleeding controlled, No redness/swelling at site. Pressure dressing applied. Administered Medications: 00:38 Drug: fentaNYL (PF) 50 mcg Route: IVP; Site: right antecubital; jd3 02:02 Follow up: Response: No adverse reaction jd3 02:02 Drug: fentaNYL (PF) 50 mcg Route: IVP; Site: right antecubital; jd3 04:21 Follow up: Response: No adverse reaction jd3 04:25 Drug: [place] 10 mg-325 mg 1 tabs Route: PO; jd3 04:25 Follow up: Response: Medication administered at discharge. jd3 Outcome: 04:19 Discharge ordered by . 04:32 Discharged to home via wheelchair, with friend. jd3 04:32 Condition: stable 04:32 Discharge instructions given to patient, Instructed on discharge instructions, follow up and referral plans. Demonstrated understanding of instructions, follow-up care. 04:33 Patient left the ED. jd3 Signatures: Dispatcher [employer] EDWV Yudy Johnson, RN RN aa1 Mona Dobson Kimberlee kw Pena, Laura, RN RN lp1 Michael Coleman MD MD gs Davies, Jonathon, RN RN jd3 Luciana Duvall kw
[2018-05-03] MEDS ORDERED: HYDROCODONE/APAP 10/325 TAB ONE (04:34)
[2018-05-03 05:29] VITALS: TEMP 99.7
[2018-05-03 05:32] VITALS: BP 113/74; O2SAT 95
--- NOTE | 2018-05-03 06:06 | EKG ---
Test Date: 2018-05-03 Test Time: 00:15:35 Cyber Security Administrator: DAVID MEASUREMENT RESULTS: Intervals: Rate: 115 MT: 170 QRSD: 70 QT: 320 QTc: 442 [place]: P: 87 MT: 170 QRS: 90 T: 83 INTERPRETIVE STATEMENTS: Sinus tachycardia Right atrial enlargement vertical axis Abnormal ECG Compared to ECG 05/21/2017 20:22:13 Sinus rhythm no longer present Electronically Signed On 05-03-18 06:05:05 CDT by Ceferino Moy
--- NOTE | 2018-05-03 08:44 | RAD REPORT ---
EXAM DESCRIPTION: Skip Single View05/03/2018 12:30 am CLINICAL HISTORY: Chest pain COMPARISON: April 10, 2018 FINDINGS: Mild enlargement in the right upper lobe cavity Mild worsening in the left reticulonodular opacities and nodules which may indicate an atypical infec tion Heart size is normal
--- NOTE | 2018-05-06 11:08 | RAD REPORT ---
EXAM DESCRIPTION: CT - Chest For Pe Angio - 05/03/2018 4:04 am CLINICAL HISTORY: CHEST PAIN COMPARISON: Chest CT February 14, 2017 TECHNIQUE: Multiple helical axial tomographic images were obtained of the chest following administra tion of intravenous contrast (80 mL Isovue-370) per angiographic protocol. Coronal, sagittal, and obl ique reformatted images were obtained. This exam was performed according to our departmental dose-optimization program, which includes autom ated exposure control, adjustment of the mA and/or kV according to patient size and/or use of iterati ve reconstruction technique. FINDINGS: Thyroid gland: unremarkable. Axilla: unremarkable. Pulmonary arteries: Pulmonary arteries appear patent. No evidence of pulmonary embolism. Aorta: No evidence of aortic dissection or aneurysm. Mediastinum: Unremarkable. No adenopathy. Heart: Heart is normal in size. Lungs/airways: There is an area of cavitation in the right upper lobe measuring up to 6.5 cm which ap pears increased in size with mildly thickened wall. Additional, smaller areas of cavitation in the ri ght upper lobe and superior segment of the right lower lobe are present which appear decreased in siz e. There is a nodular density in the left apex measuring up to 1.4 cm with mildly spiculated margin s which appears new. Moderate centrilobular and paraseptal emphysematous changes are present. Airwa ys are patent. Bilateral apical scarring is demonstrated. Patchy consolidative changes and several sm all nodular and groundglass opacities in the lingula and left lower lobe present. There are several s cattered small nodular densities in the right lung to a lesser degree. Pleural spaces: No significant pleural effusion. No pneumothorax. Osseous: Unremarkable. Soft tissues: Unremarkable. Visualized abdomen: Unremarkable. IMPRESSION: 1. No evidence of pulmonary embolism. 2. Patchy consolidative changes in the left lung base and scattered nodules in both lungs concerning for pneumonia. 3. Left upper lobe 1.4 cm nodular density which may be related to underlying infection/inflammation, however a malignant lesion is not excluded. Consider close intermittent follow-up chest CT in three ont. 4. Large area of cavitation in the right upper lobe appears mildly increased in size. Small areas of cavitation the right upper lobe and superior segment of the right lower lobe appear decreased in size . 5. Emphysematous changes. Electronically signed by: Migel Alberts MD 05/03/2018 3:55 AM CDT Due to temporary technical issues with the PACS/Fluency reporting system, reports are being signed by the in house radiologist as a courtesy to ensure prompt reporting. The interpreting radiologist is f ully responsible for the content of the report.
== END 2018-05-03 04:33 | disposition home or self-care (01) ==
LOC: ER 23:41
DX: R07.9 Chest pain, unspecified (principal); J43.9 Emphysema, unspecified; Z88.5 Allergy status to narcotic agent
CPT/HCPCS: 93005; 85025; 80048; 36415; 83735; 85610; 80076; 84443; 84484; 84439; 83690; 83880; 71275; 71045; 96374; 99285; Q9967; J3010 ×2

== ENCOUNTER 2019-03-02 16:05 | Emergency (ER) | payer OTHER ==
--- OUTSIDE RECORDS SUMMARY | 2019-03-02 16:10 | XMS REPORT ---
[...] Status Dosage System Date Date Incruse Ellipta [facility] [id number] 62.5 MCG/INH Active 1 puff Inhalation Once a day Hydrocodone [facility] [address]-86 10 MG Orally Active 1 capsule Bitartrate every 12 hrs Paroxetine ND 23336740393 7.5 MG Orally Jan 03, Active 1 capsule Mesylate Once a day 2018 at bedtime Breo Ellipta [facility] 13024933150 200-25 MCG/INH Active 1 puff Inhalation Once a day Results Name Result Date Reference Range Unit Abnormality Flag HPV GENOTYPES 16,18/45 ----HPV 16 RNA DETECTED 20180103 NOT DETECTED A ----HPV 18/45 RNA NOT DETECTED 20180103 NOT DETECTED N IMAGE-GUIDED PAP W/AGE BASED SCR PROTOCOLS URINALYSIS AUTO W/O SCOPE (48184) ----NIT neg [id number] ----URO 0.2 20180108 ----PROTEIN neg [id number] ----pH 5.5 20180108 ----BLO neg [id number] ----GLUCOSE neg [id number] ----OSWALD neg [id number] ----BILIRUBIN neg [id number] ----KETONES neg [id number] ----SPECIFIC GRAVITY 1.010 [id number] THINPREP TIS PAP AND HPV mRNA E6/E7 REFLEX HPV 16,18/45 ----HPV mRNA E6/E7 Detected 20180103 Not Detected A ----PREV. BX: NONE GIVEN 20180103 N ----SOURCE: None given 20180103 N ----LMP: NONE GIVEN 20180103 N ----PREV. PAP: NONE GIVEN 20180103 N ----CLINICAL INFORMATION: None given 20180103 N Summary Purpose eClinicalWorks Submission
--- OUTSIDE RECORDS SUMMARY | 2019-03-02 16:10 | XMS REPORT ---
[...] End Date Status Dosage System Date Albuterol [facility] 93211260533 (2.5 MG/3ML) Active 3 ml as Sulfate 0.083% needed Inhalation Three times a day Mobic [facility] 00121877696 7.5 MG Orally Sep 06, Active 1 tablet Once a day 2017 Arlee [facility] 45484560045 10-325 MG Orally Active 1 tablet every 6 hrs as needed Incruse [facility] 07350440540 62.5 MCG/INH Active 1 puff Ellipta Inhalation Once a day Breo Ellipta [facility] 31034775825 200-25 MCG/INH Active 1 puff Inhalation Once a day Results No Known Results Summary Purpose eClinicalWorks Submission
--- OUTSIDE RECORDS SUMMARY | 2019-03-02 16:10 | XMS REPORT ---
[...] End Status Dosage System Date Date Incruse [facility] 13399964006 62.5 MCG/INH Active 1 puff Ellipta Inhalation Once a day Breo Ellipta [facility] 49573903491 200-25 MCG/INH Active 1 puff Inhalation Once a day [place] [facility] 58318580533 10-325 MG Orally Active 1 tablet every 6 hrs as needed Albuterol [facility] 07368243019 (2.5 MG/3ML) Active 3 ml as Sulfate 0.083% needed Inhalation Three times a day Mobic [facility] 51255286946 7.5 MG Orally Inactive 1 tablet Once a day Results No Known Results Summary Purpose eClinicalWorks Submission
--- OUTSIDE RECORDS SUMMARY | 2019-03-02 16:10 | XMS REPORT ---
[...] Status Dosage System Date Date Incruse Ellipta [facility] 02731113164 62.5 MCG/INH Active 1 puff Inhalation Once a day Paroxetine [facility] [address]-83 10 MG Orally Jan 03, Active 1 capsule Mesylate Once a day 2017 at bedtime Hydrocodone [facility] [address]-08 10 MG Orally Active 1 capsule Bitartrate every 12 hrs Paroxetine HCl ND 65997299484 10 MG Orally Jan 07, Active 1 capsule Once a day 2018 at bedtime Breo Ellipta [facility] 75271703056 200-25 MCG/INH Active 1 puff Inhalation Once a day Results No Known Results Summary Purpose eClinicalWorks Submission
[2019-03-02] MEDS ORDERED: NA CHLORIDE 0.9% 1,000 ML ONE (16:53)
[2019-03-02] MEDS ORDERED: ONDANSETRON 4 MG/2 ML VIAL ONE (16:53)
[2019-03-02] MEDS ORDERED: FENTANYL CITR 100 MCG/2 ML ONE (16:53)
[2019-03-02 17:04] LABS: Hematocrit 38.4 % (36.0-45.0); RBC Red Blood Cell Count 4.61 M/uL (3.86-4.86)
[2019-03-02 17:32] LABS: ALT/SGPT 19 U/L (12-78); AST/SGOT 15 U/L (15-37); Albumin 3.3 g/dL (3.4-5.0); Alkaline Phosphatase 88 U/L (45-117); BUN Blood Urea Nitrogen 9 mg/dL (7-18); Bicarbonate 29 mmol/L (21-32); Bilirubin Direct < 0.1 mg/dL (0-0.2); Bilirubin Total 0.3 mg/dL (0.2-1.0); Glucose Level 88 mg/dL (74-106); Lipase 96 U/L (73-393); Potassium 3.2 mmol/L (3.5-5.1); Protein, Total 7.5 g/dL (6.4-8.2); Sodium Level 136 mmol/L (136-145)
--- NOTE | 2019-03-02 18:17 | RAD REPORT ---
EXAM DESCRIPTION: CT - Abdomen Pelvis W Contrast - 03/02/2019 5:51 pm CLINICAL HISTORY: Abdominal pain COMPARISON: March 2018 and 2013 TECHNIQUE: Computed axial tomography of the abdomen pelvis was obtained. 100 cc Isovue-300 was admin istered intravenously. Oral contrast was not requested which limits evaluation of bowel. All CT scans are performed using dose optimization technique as appropriate and may include automated exposure control or mA/KV adjustment according to patient size. FINDINGS: 25 millimeter cyst extends off of the lower pole left kidney without significant change si ze. It contains small peripheral calcification. The right kidney is unremarkable. The liver, spleen, pancreas, and adrenals appear unremarkable. There is no evidence of diverticulitis. Mild tree-in-bud opacities left lower lobe IMPRESSION: Mild tree-in-bud opacities left lower lobe may indicate an atypical infection
--- NOTE | 2019-03-02 18:29 | ER ---
Nurse's Notes [facility] Name: Kallie Correia Age: 58 yrs Sex: Female : 1960 Arrival Date: 03/02/2019 Time: 16:08 Bed 17 Private MD: Diagnosis: Pneumonia, unspecified organism Presentation: 03/02 16:46 Presenting complaint: Patient states: L mid back pain that radiates towards L side of ss abdomen x 4 days. Is described as stabbing/ sharp. Transition of care: patient was not received from another setting of care. Onset of symptoms was February 26, 2019. Risk Assessment: Do you want to hurt yourself or someone else? Patient reports no desire to harm self or others. Initial Sepsis Screen: Does the patient meet any 2 criteria? No. Patient's initial sepsis screen is negative. Does the patient have a suspected source of infection? No. Patient's initial sepsis screen is negative. Care prior to arrival: None. 16:46 Method Of Arrival: Ambulatory ss 16:46 Acuity: BENJI 3 ss Historical: - Allergies: 16:49 Morphine; ss - PMHx: 16:49 "frozen shoulder"; COPD; Emphysema; Non-tuberculin Mycoplasma; ss - PSHx: 16:49 Tonsillectomy; Hysterectomy; ss - Immunization history:: Adult Immunizations up to date. - Coronavirus screen:: The patient has NOT traveled to [place], [place], or [place] in the past 14 days. Proceed with normal triage process as indicated. - Social history:: Smoking status: Patient/guardian denies using tobacco, the patient reports quitting approximately 1.5 years ago. - Ebola Screening: : Patient denies exposure to infectious person Patient denies travel to an Ebola-affected area in the 21 days before illness onset. Screenin:10 Abuse screen: Denies threats or abuse. Denies injuries from another. Nutritional ph screening: No deficits noted. Tuberculosis screening: No symptoms or risk factors identified. Fall Risk None identified. Assessment: 17:15 General: Appears in no apparent distress. uncomfortable, Behavior is calm, cooperative, ph appropriate for age. Pain: Complains of pain in left mid back Pain radiates to posterior aspect of left lateral abdomen and anterior aspect of left lateral abdomen. Neuro: Level of Consciousness is awake, alert, obeys commands, Oriented to person, place, time, situation. Cardiovascular: Capillary refill < 3 seconds in bilateral fingers Patient's skin is warm and dry. Respiratory: Airway is patent Respiratory effort is even, unlabored, Respiratory pattern is regular, symmetrical. GI: Abdomen is non-distended, Bowel sounds present X 4 quads. Abd is soft and non tender X 4 quads. Derm: Skin is intact, is healthy with good turgor, Skin is pink, warm \\T\\ dry. 18:30 Reassessment: Patient appears in no apparent distress at this time. Patient and/or ph family updated on plan of care and expected duration. Pain level reassessed. Patient is alert, oriented x 3, equal unlabored respirations, skin warm/dry/pink. Pt continues to c/o pain in L side, ERP notified see APR. Vital Signs: 16:45 BP 114 / 79; Pulse 103; Resp 18; Temp 98.1(TE); Pulse Ox 96% on R/A; Weight 49.9 kg; ss Height 5 ft. 3 in. (160.02 cm); Pain 10/10; 17:48 BP 109 / 65; Pulse 77; Resp 18; Pulse Ox 94% on R/A; ph 18:45 BP 110 / 70; Pulse 78; Resp 18; Temp 97.8; Pulse Ox 95% on R/A; ph 16:45 Body Mass Index 19.49 (49.90 kg, 160.02 cm) ED Course: 16:08 Patient arrived in ED. ag5 16:29 Guido Johnson NP is PHCP. pm1 16:29 Gerry Faye MD is Attending Physician. pm1 16:45 Arm band placed on right wrist. ss 16:47 Triage completed. ss 16:49 Donna Guerrier, JEANETTE is Primary Nurse. ph 16:56 Initial lab(s) drawn, by de, sent to lab. Urine collected: clean catch specimen, clear. 5 Inserted saline lock: 20 gauge in right antecubital area, using aseptic technique. Blood collected. 16:57 Urine Dipstick--Ancillary (enter results) Sent. 5 16:57 Basic Metabolic Panel Sent. 5 16:57 CBC with Diff Sent. 5 16:57 Creatinine for Radiology Sent. 5 16:57 Hepatic Function Sent. 5 16:57 Lipase Sent. mh5 17:11 Patient has correct armband on for positive identification. Placed in gown. Bed in low ph position. Side rails up X 1. Pulse ox on. NIBP on. Door closed. Noise minimized. Warm blanket given. Head of bed elevated. 17:47 CT completed. Patient tolerated procedure well. Patient moved back from CT. bq 17:51 CT Abd/Pelvis - IV Contrast Only In Process Unspecified. EDMS 19:08 No provider procedures requiring assistance completed. IV discontinued, intact, ph bleeding controlled, No redness/swelling at site. Pressure dressing applied. Administered Medications: 16:59 Drug: fentaNYL (PF) 50 mcg Route: IVP; Site: right antecubital; mg2 17:45 Follow up: Response: No adverse reaction; Pain is unchanged, physician notified ph 16:59 Drug: Zofran 4 mg Route: IVP; Site: right antecubital; mg2 17:30 Follow up: Response: No adverse reaction ph 16:59 Drug: NS 0.9% 1000 ml Route: IV; Rate: 1000 ml; Site: right antecubital; mg2 19:00 Follow up: Response: No adverse reaction; IV Status: Completed infusion; IV Intake: ph 1000ml 18:50 Drug: Dilaudid 1 mg Route: IVP; Site: right antecubital; ph 19:00 Follow up: Response: No adverse reaction; Pain is decreased; RASS: Alert and Calm (0) ph 19:00 Drug: Rocephin 1 grams Route: IV; Rate: calculated rate; Site: right antecubital; ph 19:05 Follow up: Response: No adverse reaction; IV Status: Completed infusion ph Intake: 19:00 IV: 1000ml; Total: 1000ml. ph Outcome: 18:29 Discharge ordered by MD. pm1 19:08 Patient left the ED. ph 19:08 Discharged to home via wheelchair, with family. ph 19:08 Condition: good 19:08 Discharge instructions given to patient, Instructed on discharge instructions, follow up and referral plans. medication usage, Demonstrated understanding of instructions, follow-up care, medications, Prescriptions given X 1. Signatures: Dispatcher [employer] EDNJ Sruthi Billy Minerva Wong RN RN Donna Guerrier RN RN Guido Johnson, [facility] pm1 Keyona Uribe 5 Carlos Thompson, RN RN mg2 Beverly, Dorys ag5
--- NOTE | 2019-03-02 18:29 | EDPHYS ---
Physician Documentation [facility] Name: Kallie Correia Age: 58 yrs Sex: Female : 1960 Arrival Date: 03/02/2019 Time: 16:08 Bed 17 Private MD: ED Physician Gerry Faye HPI: 03/02 16:58 This 58 yrs old Female presents to ER via Ambulatory with complaints of pm1 Abdominal Pain, Back Pain. 16:58 The patient presents with abdominal pain in the left upper quadrant, back pain in the pm1 left flank. Onset: The symptoms/episode began/occurred 5 day(s) ago. The symptoms do not radiate. Associated signs and symptoms: Pertinent negatives: nausea, vomiting, and diarrhea, chest pain, constipation, dysuria, fever, shortness of breath. The symptoms are described as sharp. Modifying factors: The symptoms are alleviated by nothing, the symptoms are aggravated by nothing. Severity of pain: in the emergency department the pain is actually worse. The patient has experienced similar episodes in the past, a few times, today's symptoms are similar, to previous pneumonia. Historical: - Allergies: 16:49 Morphine; ss - PMHx: 16:49 "frozen shoulder"; COPD; Emphysema; Non-tuberculin Mycoplasma; ss - PSHx: 16:49 Tonsillectomy; Hysterectomy; ss - Immunization history:: Adult Immunizations up to date. - Coronavirus screen:: The patient has NOT traveled to [place], [place], or [place] in the past 14 days. Proceed with normal triage process as indicated. - Social history:: Smoking status: Patient/guardian denies using tobacco, the patient reports quitting approximately 1.5 years ago. - Ebola Screening: : Patient denies exposure to infectious person Patient denies travel to an Ebola-affected area in the 21 days before illness onset. ROS: 16:58 Constitutional: Negative for fever, chills, and weight loss, Eyes: Negative for injury, pm1 pain, redness, and discharge, ENT: Negative for injury, pain, and discharge, Neck: Negative for injury, pain, and swelling, Cardiovascular: Negative for chest pain, palpitations, and edema, Respiratory: Negative for shortness of breath, cough, wheezing, and pleuritic chest pain. 16:58 : Negative for injury, bleeding, discharge, and swelling, MS/Extremity: Negative for injury and deformity, Skin: Negative for injury, rash, and discoloration, Neuro: Negative for headache, weakness, numbness, tingling, and seizure. 16:58 Abdomen/GI: Positive for abdominal pain, of the left upper quadrant, Negative for nausea, vomiting, and diarrhea, constipation. 16:58 Back: Positive for flank pain, on the left. Exam: 16:58 Constitutional: This is a well developed, well nourished patient who is awake, alert, pm1 and in no acute distress. Head/Face: Normocephalic, atraumatic. Neck: Trachea midline, no thyromegaly or masses palpated, and no cervical lymphadenopathy. Supple, full range of motion without nuchal rigidity, or vertebral point tenderness. No Meningismus. Chest/axilla: Normal chest wall appearance and motion. Nontender with no deformity. No lesions are appreciated. Cardiovascular: Regular rate and rhythm with a normal S1 and S2. No gallops, murmurs, or rubs. Normal PMI, no JVD. No pulse deficits. Respiratory: Lungs have equal breath sounds bilaterally, clear to auscultation and percussion. No rales, rhonchi or wheezes noted. No increased work of breathing, no retractions or nasal flaring. 16:58 Skin: Warm, dry with normal turgor. Normal color with no rashes, no lesions, and no evidence of cellulitis. MS/ Extremity: Pulses equal, no cyanosis. Neurovascular intact. Full, normal range of motion. 16:58 Abdomen/GI: Inspection: abdomen appears normal, Bowel sounds: normal, Palpation: soft, in all quadrants, mild abdominal tenderness, in the left upper quadrant, mass, is not appreciated, rebound tenderness, is not appreciated. 16:58 Back: pain, that is mild, of the left mid back, normal spinal alignment noted, vertebral tenderness, is not appreciated. 16:58 Neuro: Orientation: is normal, Motor: is normal, moves all fours. Vital Signs: 16:45 BP 114 / 79; Pulse 103; Resp 18; Temp 98.1(TE); Pulse Ox 96% on R/A; Weight 49.9 kg; ss Height 5 ft. 3 in. (160.02 cm); Pain 10/10; 17:48 BP 109 / 65; Pulse 77; Resp 18; Pulse Ox 94% on R/A; ph 18:45 BP 110 / 70; Pulse 78; Resp 18; Temp 97.8; Pulse Ox 95% on R/A; ph 16:45 Body Mass Index 19.49 (49.90 kg, 160.02 cm) ss MDM: 16:34 Patient medically screened. pm1 18:28 Data reviewed: vital signs. Data interpreted: Pulse oximetry: on room air is 96 %. pm1 Interpretation: normal. 18:28 Counseling: I had a detailed discussion with the patient and/or guardian regarding: the pm1 historical points, exam findings, and any diagnostic results supporting the discharge/admit diagnosis, lab results, radiology results, the need for outpatient follow up, to return to the emergency department if symptoms worsen or persist or if there are any questions or concerns that arise at home. 03/02 16:41 Order name: Basic Metabolic Panel; Complete Time: 17:34 pm1 03/02 16:41 Order name: CBC with Diff; Complete Time: 17:15 pm03/02 16:41 Order name: Creatinine for Radiology; Complete Time: 17:29 pm03/02 16:41 Order name: Hepatic Function; Complete Time: 17:34 pm03/02 16:41 Order name: Lipase; Complete Time: 17:34 pm03/02 16:44 Order name: Urine Dipstick--Ancillary (enter results) ms 03/02 16:41 Order name: IV Saline Lock; Complete Time: 16:57 pm1 03/02 16:41 Order name: Labs collected and sent; Complete Time: 16:57 pm03/02 16:41 Order name: CT Abd/Pelvis - IV Contrast Only; Complete Time: 18:21 pm03/02 16:41 Order name: Urine Dipstick-Ancillary (obtain specimen); Complete Time: 16:57 pm1 Administered Medications: 16:59 Drug: fentaNYL (PF) 50 mcg Route: IVP; Site: right antecubital; mg2 17:45 Follow up: Response: No adverse reaction; Pain is unchanged, physician notified ph 16:59 Drug: Zofran 4 mg Route: IVP; Site: right antecubital; mg2 17:30 Follow up: Response: No adverse reaction ph 16:59 Drug: NS 0.9% 1000 ml Route: IV; Rate: 1000 ml; Site: right antecubital; mg2 19:00 Follow up: Response: No adverse reaction; IV Status: Completed infusion; IV Intake: ph 1000ml 18:50 Drug: Dilaudid 1 mg Route: IVP; Site: right antecubital; ph 19:00 Follow up: Response: No adverse reaction; Pain is decreased; RASS: Alert and Calm (0) ph 19:00 Drug: Rocephin 1 grams Route: IV; Rate: calculated rate; Site: right antecubital; ph 19:05 Follow up: Response: No adverse reaction; IV Status: Completed infusion ph Disposition: 21:11 Co-signature as Attending Physician, Gerry Faye MD I agree with the assessment and kdr plan of care. Disposition: 03/02/19 18:29 Discharged to Home. Impression: Pneumonia, unspecified organism. - Condition is Stable. - Discharge Instructions: Community-Acquired Pneumonia, Adult. - Prescriptions for Zithromax Z- Marek 250 mg Oral Tablet - take 1 tablet by ORAL route as directed for 5 days Day 1 - take two (2) tablets one time. Day 2, 3, 4 , 5 take one (1) tablet once daily.; 6 tablet. - Medication Reconciliation Form, Thank You Letter, Antibiotic Education, Prescription Opioid Use form. - Follow up: Emergency Department; When: As needed; Reason: Worsening of condition. Follow up: Private Physician; When: 2 - 3 days; Reason: Recheck today's complaints, Continuance of care, Re-evaluation by your physician. - Problem is new. - Symptoms have improved. Signatures: Dispatcher [employer] EDLA Gerry Faye MD MD [facility] Minerva Wong RN RN Donna Guerrier RN RN ph Guido Johnson, PEDRO SUPERVISOR [employer] pm1 Carlos Thompson RN RN mg2 Corrections: (The following items were deleted from the chart) 19:08 18:29 03/02/2019 18:29 Discharged to Home. Impression: Pneumonia, unspecified organism. ph Condition is Stable. Forms are Medication Reconciliation Form, Thank You Letter, Antibiotic Education, Prescription Opioid Use. Follow up: Emergency Department; When: As needed; Reason: Worsening of condition. Follow up: Private Physician; When: 2 - 3 days; Reason: Recheck today's complaints, Continuance of care, Re-evaluation by your physician. Problem is new. Symptoms have improved. pm1
[2019-03-02] MEDS ORDERED: HYDROMORPHONE HCL 1 MG/ML INJ ONE (18:47)
[2019-03-02] MEDS ORDERED: CEFTRIAXONE/SWI 1gm 1 GM/10 ML SYR ONE (18:47)
[2019-03-02 19:22] VITALS: TEMP 98.1
[2019-03-02 19:23] VITALS: BP 109/65; O2SAT 94
[2019-03-02 20:23] LABS: Urine Blood NEGATIVE (NEG); Urine Glucose NEGATIVE (NEG)
[2019-03-02 20:24] LABS: Urine Protein NEGATIVE (NEG)
== END 2019-03-02 19:08 | disposition home or self-care (01) ==
LOC: ER 16:05
DX: J18.9 Pneumonia, unspecified organism (principal); J44.9 Chronic obstructive pulmonary disease, unspecified; Z88.5 Allergy status to narcotic agent
CPT/HCPCS: 96361; 85025; 80048; 36415; 80076; 81003; 83690; 74177; 96375; 96374; 99284; Q9967; J3010; J1170; J0696; J7030; J2405

== ENCOUNTER 2019-03-06 13:39 | Emergency (ER) | payer OTHER ==
--- OUTSIDE RECORDS SUMMARY | 2019-03-06 13:42 | XMS REPORT ---
[...] Dosage System Date Date Incruse Ellipta [facility] 25492566347 62.5 MCG/INH Active 1 puff Inhalation Once a day Paroxetine [facility] [address]-91 10 MG Orally Jan 03, Active 1 capsule Mesylate Once a day 2017 at bedtime Hydrocodone [facility] [address]-04 10 MG Orally Active 1 capsule Bitartrate every 12 hrs Paroxetine HCl ND 03256694505 10 MG Orally Jan 07, Active 1 capsule Once a day 2018 at bedtime Breo Ellipta [facility] 95626265540 200-25 MCG/INH Active 1 puff Inhalation Once a day Results No Known Results Summary Purpose eClinicalWorks Submission
--- OUTSIDE RECORDS SUMMARY | 2019-03-06 13:42 | XMS REPORT ---
[...] Status Dosage System Date Date Incruse Ellipta [facility] 81318574632 62.5 MCG/INH Active 1 puff Inhalation Once a day Hydrocodone [facility] [address]-66 10 MG Orally Active 1 capsule Bitartrate every 12 hrs Paroxetine ND 39126059835 7.5 MG Orally Jan 03, Active 1 capsule Mesylate Once a day 2018 at bedtime Breo Ellipta [facility] 12060371855 200-25 MCG/INH Active 1 puff Inhalation Once a day Results Name Result Date Reference Range Unit Abnormality Flag HPV GENOTYPES 16,18/45 ----HPV 16 RNA DETECTED 20180103 NOT DETECTED A ----HPV 18/45 RNA NOT DETECTED 20180103 NOT DETECTED N IMAGE-GUIDED PAP W/AGE BASED SCR PROTOCOLS URINALYSIS AUTO W/O SCOPE (18079) ----NIT neg [id number] ----URO 0.2 20180108 ----PROTEIN neg [id number] ----pH 5.5 20180108 ----BLO neg [id number] ----GLUCOSE neg [id number] ----OSWALD neg [id number] ----BILIRUBIN neg [id number] ----KETONES neg [id number] ----SPECIFIC GRAVITY 1.010 [id number] THINPREP TIS PAP AND HPV mRNA E6/E7 REFLEX HPV 16,18/45 ----HPV mRNA E6/E7 Detected 20180103 Not Detected A ----PREV. BX: NONE GIVEN 20180103 N ----SOURCE: None given 20180103 N ----LMP: NONE GIVEN 20180103 N ----PREV. PAP: NONE GIVEN 20180103 N ----CLINICAL INFORMATION: None given 20180103 N Summary Purpose eClinicalWorks Submission
--- OUTSIDE RECORDS SUMMARY | 2019-03-06 13:42 | XMS REPORT ---
[...] End Status Dosage System Date Date Incruse [facility] 61213283285 62.5 MCG/INH Active 1 puff Ellipta Inhalation Once a day Breo Ellipta [facility] 34138281369 200-25 MCG/INH Active 1 puff Inhalation Once a day [place] [facility] 45593717487 10-325 MG Orally Active 1 tablet every 6 hrs as needed Albuterol [facility] 73229173803 (2.5 MG/3ML) Active 3 ml as Sulfate 0.083% needed Inhalation Three times a day Mobic [facility] 47602164076 7.5 MG Orally Inactive 1 tablet Once a day Results No Known Results Summary Purpose eClinicalWorks Submission
--- OUTSIDE RECORDS SUMMARY | 2019-03-06 13:42 | XMS REPORT ---
[...] End Date Status Dosage System Date Albuterol [facility] 98927600606 (2.5 MG/3ML) Active 3 ml as Sulfate 0.083% needed Inhalation Three times a day Mobic [facility] 99012414692 7.5 MG Orally Sep 06, Active 1 tablet Once a day 2017 [place] [facility] 23947520481 10-325 MG Orally Active 1 tablet every 6 hrs as needed Incruse [facility] 02398427817 62.5 MCG/INH Active 1 puff Ellipta Inhalation Once a day Breo Ellipta [facility] 87505052510 200-25 MCG/INH Active 1 puff Inhalation Once a day Results No Known Results Summary Purpose eClinicalWorks Submission
--- NOTE | 2019-03-06 15:33 | RAD REPORT ---
EXAM DESCRIPTION: RAD - Chest Pa And Lat (2 Views) - 03/06/2019 2:45 pm CLINICAL HISTORY: pneumonia eval COMPARISON: Chest Pa And Lat (2 Views) dated 01/22/2019; Chest Pa And Lat (2 Views) dated 08/05/2018; Abdomen Pelvis W Contrast dated 03/02/2019 TECHNIQUE: Frontal and lateral views of the chest were obtained. FINDINGS: The lungs are extensively fibrotic. Right apical pleural thickening with cavitary lesion a nd surrounding scarring not clearly different from comparison. Patchy alveolar opacities are present in the lateral lower left lung field different from January. This is most likely mild pneumonia. The re is subtle increase in opacification in the right mid lung field also likely minimal infiltrate. Alvaro th findings can be re-evaluated for clearing in 4-6 weeks after medical management. Heart size is normal and central vasculature is within normal limits. No pleural effusion or pneu mothorax seen. No acute bony finding noted. No aortic abnormality. IMPRESSION: Small lateral lower left lung field pneumonia. Minimal increased opacification in the right midlung field probably minimal pneumonia as well. Both o f these findings can be re-evaluated in 4-6 weeks to assure clearing. Chronic apical thickening, scarring and cavitary lesion stable from prior imaging.
--- NOTE | 2019-03-06 15:44 | EDPHYS ---
Physician Documentation [facility] Name: Kallie Correia Age: 58 yrs Sex: Female : 1960 Arrival Date: 03/06/2019 Time: 13:40 Bed 25 Private MD: ED Physician Emir England HPI: 03/06 16:08 This 58 yrs old Female presents to ER via Wheelchair with complaints of Chest snw Congestion, Cough, Back Pain. 16:08 The patient or guardian reports cough, described as moderate. Onset: The snw symptoms/episode began/occurred acutely. Modifying factors: The symptoms are alleviated by nothing. Associated signs and symptoms: Pertinent positives: nausea. Severity of symptoms: At their worst the symptoms were moderate. The patient has experienced similar episodes in the past, multiple times. The patient has been recently seen by a physician: The patient has been recently seen at the [facility] Emergency Department, this week, for similar complaints was given a prescription for antibiotics, the patient was told to return for a recheck. pt states pain under ribs is worse. Took hydrocodone at home. States she is allergic to Morphine. Pt was recently taken off hospice and still has dilaudid for pain. Historical: - Allergies: 14:21 Morphine; ca1 - PMHx: 14:21 "frozen shoulder"; COPD; Emphysema; Non-tuberculin Mycoplasma; ca1 - PSHx: 14:21 Tonsillectomy; Hysterectomy; ca1 - Immunization history:: Adult Immunizations up to date, Pneumococcal vaccine is up to date, Flu vaccine is not up to date. - Coronavirus screen:: The patient has NOT traveled to [place], [place], or [place] in the past 14 days. The patient has NOT had contact with known/suspected case of Coronavirus?. - Social history:: Smoking status: Patient denies any tobacco usage or history of. - Ebola Screening: : Patient negative for fever greater than or equal to 101.5 degrees Fahrenheit, and additional compatible Ebola Virus Disease symptoms Patient denies exposure to infectious person Patient denies travel to an Ebola-affected area in the 21 days before illness onset No symptoms or risks identified at this time. ROS: 16:10 Constitutional: Negative for fever, chills, and weight loss, Eyes: Negative for injury, snw pain, redness, and discharge, ENT: Negative for injury, pain, and discharge, Neck: Negative for injury, pain, and swelling, Cardiovascular: Negative for chest pain, palpitations, and edema, Abdomen/GI: Negative for abdominal pain, nausea, vomiting, diarrhea, and constipation, Back: Negative for injury and pain, : Negative for injury, bleeding, discharge, and swelling, MS/Extremity: Negative for injury and deformity, Skin: Negative for injury, rash, and discoloration, Neuro: Negative for headache, weakness, numbness, tingling, and seizure. 16:10 Respiratory: Positive for cough, pleurisy, of the diaphragm and left breast. Exam: 16:10 Constitutional: This is a well developed, well nourished patient who is awake, alert, snw and in no acute distress. Head/Face: Normocephalic, atraumatic. Eyes: Pupils equal round and reactive to light, extra-ocular motions intact. Lids and lashes normal. Conjunctiva and sclera are non-icteric and not injected. Cornea within normal limits. Periorbital areas with no swelling, redness, or edema. ENT: Nares patent. No nasal discharge, no septal abnormalities noted. Tympanic membranes are normal and external auditory canals are clear. Oropharynx with no redness, swelling, or masses, exudates, or evidence of obstruction, uvula midline. Mucous membranes moist. Neck: Trachea midline, no thyromegaly or masses palpated, and no cervical lymphadenopathy. Supple, full range of motion without nuchal rigidity, or vertebral point tenderness. No Meningismus. Chest/axilla: Normal chest wall appearance and motion. Nontender with no deformity. No lesions are appreciated. Cardiovascular: Regular rate and rhythm with a normal S1 and S2. No gallops, murmurs, or rubs. Normal PMI, no JVD. No pulse deficits. Abdomen/GI: Soft, non-tender, with normal bowel sounds. No distension or tympany. No guarding or rebound. No evidence of tenderness throughout. Back: No spinal tenderness. No costovertebral tenderness. Full range of motion. Skin: Warm, dry with normal turgor. Normal color with no rashes, no lesions, and no evidence of cellulitis. MS/ Extremity: Pulses equal, no cyanosis. Neurovascular intact. Full, normal range of motion. Neuro: Awake and alert, GCS 15, oriented to person, place, time, and situation. Cranial nerves II-XII grossly intact. Motor strength 5/5 in all extremities. Sensory grossly intact. Cerebellar exam normal. Normal gait. Psych: Awake, alert, with orientation to person, place and time. Behavior, mood, and affect are within normal limits. 16:10 Respiratory: the patient does not display signs of respiratory distress, Respirations: normal, Breath sounds: bronchial sounds, + upper airway congestion. wheezing: is heard diffusely. Vital Signs: 14:21 BP 98 / 66; Pulse 82; Resp 19 S; Temp 99.5(O); Pulse Ox 94% on R/A; Weight 49.9 kg (R); ca1 Height 5 ft. 3 in. (160.02 cm) (R); Pain 10/10; 15:00 BP 101 / 68; Pulse 88; Resp 18; Pulse Ox 96% on R/A; vc 16:00 BP 96 / 64; Pulse 78; Resp 20; Pulse Ox 100% on R/A; vc 14:21 Body Mass Index 19.49 (49.90 kg, 160.02 cm) ca1 MDM: 14:30 Patient medically screened. snw 14:30 Data reviewed: vital signs, nurses notes. Data interpreted: Pulse oximetry: on room air snw is 94 %. Interpretation: acceptable. Counseling: I had a detailed discussion with the patient and/or guardian regarding: the historical points, exam findings, and any diagnostic results supporting the discharge/admit diagnosis, radiology results, the need for outpatient follow up. Special discussion: Based on the patient's history, exam, and Dx evaluation, there is no indication for emergent intervention or inpatient Tx. It is understood by the patient/guardian that if the Sx's persist or worsen they need to return immediately for re-evaluation. 16:07 Data reviewed: lab test result(s), radiologic studies. Response to treatment: the snw patient's symptoms have mildly improved after treatment. 03/06 14:25 Order name: Chest Pa And Lat (2 Views) XRAY; Complete Time: 15:33 snw Administered Medications: 16:11 Drug: Dilaudid 0.5 mg Route: IM; Site: left deltoid; vc 16:13 Drug: Rocephin (cefTRIAXone) 1 grams Route: IM; Site: left gluteus; vc 16:16 Drug: LevaQUIN 500 mg Route: PO; vc Disposition: 17:10 Co-signature as Attending Physician, Emir England MD. rn Disposition: 03/06/19 15:42 Discharged to Home. Impression: Chronic obstructive pulmonary disease with acute lower respiratory infection. - Condition is Stable. - Discharge Instructions: Chronic Obstructive Pulmonary Disease. - Prescriptions for Levaquin 500 mg Oral Tablet - take 1 tablet by ORAL route once daily for 10 days; 10 tablet. Albuterol Sulfate 90 mcg/actuation - inhale 1-2 puff by INHALATION route every 4-6 hours; 1 Inhaler. - Medication Reconciliation Form, Thank You Letter, Antibiotic Education, Prescription Opioid Use form. - Follow up: Emergency Department; When: As needed; Reason: Trouble breathing, inability to keep antibiotics down. Follow up: Private Physician; When: 2 - 3 days; Reason: Recheck today's complaints, Continuance of care, Re-evaluation by your physician. Signatures: Dispatcher [employer] EDMS Mary Kay Metz, CASH APPLICATIONS MANAGER-C CASH APPLICATIONS MANAGER-Csnw Emir England MD MD rn [place], JEANETTE Darby RN ca1 Citlali Wright RN RN vc Corrections: (The following items were deleted from the chart) 16:36 15:42 03/06/2019 15:42 Discharged to Home. Impression: Chronic obstructive pulmonary vc disease with acute lower respiratory infection. Condition is Stable. Forms are Medication Reconciliation Form, Thank You Letter, Antibiotic Education, Prescription Opioid Use. Follow up: Emergency Department; When: As needed; Reason: Trouble breathing, inability to keep antibiotics down. Follow up: Private Physician; When: 2 - 3 days; Reason: Recheck today's complaints, Continuance of care, Re-evaluation by your physician. snw
--- NOTE | 2019-03-06 15:44 | ER ---
Nurse's Notes [facility] Name: Kallie Correia Age: 58 yrs Sex: Female : 1960 Arrival Date: 03/06/2019 Time: 13:40 Bed 25 Private MD: Diagnosis: Chronic obstructive pulmonary disease with acute lower respiratory infection Presentation: 03/06 14:18 Presenting complaint: Patient states: I was diagnosed with Pneumonia here on Sunday. ca1 They told be to come back here when it gets worse. C/O of pain on the lower back all the way under the rib and more on the R. Transition of care: patient was not received from another setting of care. Onset of symptoms was March 06, 2019. Risk Assessment: Do you want to hurt yourself or someone else? Patient reports no desire to harm self or others. Initial Sepsis Screen: Does the patient meet any 2 criteria? No. Patient's initial sepsis screen is negative. Does the patient have a suspected source of infection? No. Patient's initial sepsis screen is negative. Care prior to arrival: None. 14:18 Method Of Arrival: Wheelchair ca1 14:18 Acuity: BENJI 3 ca1 Historical: - Allergies: 14:21 Morphine; ca1 - PMHx: 14:21 "frozen shoulder"; COPD; Emphysema; Non-tuberculin Mycoplasma; ca1 - PSHx: 14:21 Tonsillectomy; Hysterectomy; ca1 - Immunization history:: Adult Immunizations up to date, Pneumococcal vaccine is up to date, Flu vaccine is not up to date. - Coronavirus screen:: The patient has NOT traveled to [place], [place], or [place] in the past 14 days. The patient has NOT had contact with known/suspected case of Coronavirus?. - Social history:: Smoking status: Patient denies any tobacco usage or history of. - Ebola Screening: : Patient negative for fever greater than or equal to 101.5 degrees Fahrenheit, and additional compatible Ebola Virus Disease symptoms Patient denies exposure to infectious person Patient denies travel to an Ebola-affected area in the 21 days before illness onset No symptoms or risks identified at this time. Screenin:39 Abuse screen: Denies threats or abuse. Nutritional screening: No deficits noted. vc Tuberculosis screening: No symptoms or risk factors identified. Fall Risk None identified. Assessment: 14:34 General: Appears in no apparent distress. uncomfortable, Behavior is calm, cooperative, vc appropriate for age. Pain: Complains of pain in chest. Neuro: Level of Consciousness is awake, alert, obeys commands, Oriented to person, place, time. Cardiovascular: Patient's skin is warm and dry. Respiratory: Airway is patent Respiratory effort is even, labored, Respiratory pattern is Breath sounds with wheezes. GI: No deficits noted. : No signs and/or symptoms were reported regarding the genitourinary system. EENT: No deficits noted. Derm: Skin is intact, is healthy with good turgor. Musculoskeletal: Circulation, motion, and sensation intact. 14:35 Reassessment: xray in room. vc 15:30 Reassessment: Patient and/or family updated on plan of care and expected duration. Pain vc level reassessed. Patient is alert, oriented x 3, equal unlabored respirations, skin warm/dry/pink. Patient states feeling better. 16:18 Reassessment: Observing patient for reactions to IM antibiotics. vc 16:30 Reassessment: Patient is alert, oriented x 3, equal unlabored respirations, skin vc warm/dry/pink. Neuro: Level of Consciousness is awake, alert, obeys commands, Oriented to person, place, time, situation. Vital Signs: 14:21 BP 98 / 66; Pulse 82; Resp 19 S; Temp 99.5(O); Pulse Ox 94% on R/A; Weight 49.9 kg (R); ca1 Height 5 ft. 3 in. (160.02 cm) (R); Pain 10/10; 15:00 BP 101 / 68; Pulse 88; Resp 18; Pulse Ox 96% on R/A; vc 16:00 BP 96 / 64; Pulse 78; Resp 20; Pulse Ox 100% on R/A; vc 14:21 Body Mass Index 19.49 (49.90 kg, 160.02 cm) ca1 ED Course: 13:40 Patient arrived in ED. as 13:44 Mary Kay Metz FNP-C is PHCP. snw 13:44 Emir England MD is Attending Physician. snw 14:21 Triage completed. ca1 14:21 Arm band placed on right wrist. ca1 14:33 Citlali Wright, JEANETTE is Primary Nurse. vc 14:39 Patient has correct armband on for positive identification. vc 14:45 Chest Pa And Lat (2 Views) XRAY In Process Unspecified. EDMS 16:35 No provider procedures requiring assistance completed. Patient did not have IV access vc during this emergency room visit. Administered Medications: 16:11 Drug: Dilaudid 0.5 mg Route: IM; Site: left deltoid; vc 16:13 Drug: Rocephin (cefTRIAXone) 1 grams Route: IM; Site: left gluteus; vc 16:16 Drug: LevaQUIN 500 mg Route: PO; vc Outcome: 15:42 Discharge ordered by . sndavid 16:36 Patient left the ED. vc 23:56 Discharged to home ambulatory. vc 23:56 Discharged to home ambulatory, with significant other. 23:56 Condition: good 23:56 Discharge instructions given to patient, significant other. Signatures: Dispatcher [employer] EDMS Mary Kay Metz, [employer] Fabi Uribe Cheryl, RN RN ca1 Citlali Wright RN RN vc
[2019-03-06] MEDS ORDERED: HYDROMORPHONE HCL 0.5 MG/0.5 ML INJ ONE (15:56)
[2019-03-06] MEDS ORDERED: levoFLOXacin 500 MG TAB ONE (15:56)
[2019-03-06] MEDS ORDERED: CEFTRIAXONE 1000 MG/VIAL ONE (15:56)
[2019-03-06] MEDS ORDERED: LIDOCAINE 1% MPF 5 ML VIAL ONE (16:02)
[2019-03-06 20:18] VITALS: BP 98/66; TEMP 99.5; O2SAT 94
== END 2019-03-06 16:36 | disposition home or self-care (01) ==
LOC: ER 13:39
DX: J44.0 Chronic obstructive pulmonary disease with (acute) lower respiratory infection (principal); Z88.6 Allergy status to analgesic agent
CPT/HCPCS: 71046; 96372; 99283; J1170

== ENCOUNTER 2019-11-09 23:35 | Emergency (ER) | payer OTHER ==
[2019-11-10] MEDS ORDERED: ALBUTEROL 2.5 MG/3 ML NEB SOL ONE (00:36)
[2019-11-10] MEDS ORDERED: IPRATROPIUM BROM 0.5MG/2.5ML ONE (00:36)
[2019-11-10] MEDS ORDERED: METHYLPREDNISOLONE 125 MG INJ ONE (00:36)
[2019-11-10 00:43] LABS: Absolute Lymphocytes (CBC) 1.6 K/uL (0.7-4.9); Basophils % 1.1 % (0-1.3); Hematocrit 34.5 % (36.0-45.0); Lymphocytes % 21.2 % (15.3-44.8); MPV 7.8 fL (7.6-11.3); RBC Red Blood Cell Count 4.01 M/uL (3.86-4.86)
[2019-11-10 00:44] LABS: Protime INR 1.03
[2019-11-10] MEDS ORDERED: HYDROMORPHONE HCL 0.5 MG/0.5 ML INJ ONE ×2 (00:48→03:12)
[2019-11-10 01:06] LABS: ALT/SGPT 11 U/L (12-78); Albumin 3.2 g/dL (3.4-5.0); Alkaline Phosphatase 137 U/L (45-117); BUN Blood Urea Nitrogen 7 mg/dL (7-18); Bicarbonate 31 mmol/L (21-32); Bilirubin Direct < 0.1 mg/dL (0-0.2); Bilirubin Total 0.1 mg/dL (0.2-1.0); Glucose Level 112 mg/dL (74-106); NT PRO-BNP 102 pg/mL (<125); Protein, Total 8.3 g/dL (6.4-8.2); Sodium Level 142 mmol/L (136-145); Troponin (Emerg Dept Use Only) < 0.02 ng/mL (0.0-0.045)
[2019-11-10 01:07] LABS: AST/SGOT 15 U/L (15-37); Magnesium 1.9 mg/dL (1.8-2.4); Potassium 3.2 mmol/L (3.5-5.1)
[2019-11-10] MEDS ORDERED: CEFTRIAXONE/SWI 1gm 1 GM/10 ML SYR ONE (01:55)
[2019-11-10] MEDS ORDERED: AZITHROMYCIN 500 MG INJ IVPB ONE (01:55)
[2019-11-10] MEDS ORDERED: NA CHLORIDE 0.9% 250 ML ONE (01:55)
--- NOTE | 2019-11-10 01:57 | ER ---
Nurse's Notes [facility] Name: Kallie Correia Age: 59 yrs Sex: Female : 1960 Arrival Date: 11/09/2019 Time: 23:39 Bed 8 Private MD: Diagnosis: COPD Exacerbation;Pneumonia Presentation: 11/08 23:55 Chief complaint: Patient states: Left sided rib pain, shortness of breath. reports sg having pain similar to this pain because it was a pneumothorax from a biopsy done several years ago. Reports having treatment from infectious disease provider in [place] for NTM. Coronavirus screen: Client denies travel out of the [place] in the last 14 days. At this time, the client does not indicate any symptoms associated with coronavirus-19. Ebola Screen: Patient negative for fever greater than or equal to 101.5 degrees Fahrenheit, and additional compatible Ebola Virus Disease symptoms Patient denies exposure to infectious person. Patient denies travel to an Ebola-affected area in the 21 days before illness onset. No symptoms or risks identified at this time. Initial Sepsis Screen: Does the patient meet any 2 criteria? RR > 20 per min. HR > 90 bpm. Yes Does the patient have a suspected source of infection? No. Patient's initial sepsis screen is negative. Risk Assessment: Do you want to hurt yourself or someone else? Patient reports no desire to harm self or others. Onset of symptoms was November 09, 2019. Care prior to arrival: None. Transition of care: patient was not received from another setting of care. 23:55 Acuity: BENJI 2 sg 23:55 Method Of Arrival: Wheelchair sg Historical: - Allergies: 23:58 Morphine; sg - PMHx: 23:58 "frozen shoulder"; COPD; Emphysema; Non-tuberculin Mycoplasma; sg - PSHx: 23:58 Tonsillectomy; Hysterectomy; sg - Immunization history:: Adult Immunizations up to date. - Social history:: Smoking status: Patient denies any tobacco usage or history of. Screenin/05 00:32 Abuse screen: Denies threats or abuse. Denies injuries from another. Nutritional lp1 screening: No deficits noted. Tuberculosis screening: No symptoms or risk factors identified. Fall Risk None identified. Assessment: 00:00 General: Appears uncomfortable, Behavior is appropriate for age. Pain: Complains of lp1 pain in left mid back Pain does not radiate. Pain currently is 10 out of 10 on a pain scale. Pain began gradually, Aggravated by respirations, coughing. Neuro: Level of Consciousness is awake, alert, obeys commands, Oriented to person, place, time, situation. Cardiovascular: Patient's skin is warm and dry. Rhythm is sinus rhythm. Respiratory: Reports shortness of breath cough that is non-productive, dry, pain with cough pain with respiration Airway is patent Trachea midline Respiratory effort is even, Respiratory pattern is symmetrical, Breath sounds are diminished bilaterally. Onset: The symptoms/episode began/occurred gradually, the patient has mild shortness of breath. GI: Abdomen is flat. : No signs and/or symptoms were reported regarding the genitourinary system. EENT: No signs and/or symptoms were reported regarding the EENT system. Derm: Skin is intact, is fragile, is thin, Skin is dry, Skin is normal. Musculoskeletal: No deficits noted. 00:45 Reassessment: Verbal order per Dr. Dupont for Dilaudid 0.5mg IV now. lp1 02:15 Reassessment: Patient refuses to have COVID swab; Provider aware. lp1 03:01 Reassessment: Per hospitalist, patient would like to leave [place], does not want COVID lp1 swab; Dr. Dupont aware; Patient requesting pain and nausea medication prior to leaving; Verbal order to repeat Dilaudid 0.5mg IV and Zofran 4mg IV. 03:15 Reassessment: Small amount of emesis, yellow in color, at this time. lp1 03:45 Reassessment: Patient states nausea resolved at this time, states readiness to go; AMA lp1 form signed; states follow-up with infectious disease tomorrow; daughter at bedside with patient. Vital Signs: 11/08 23:55 BP 132 / 77; Pulse 96; Resp 26 S; Temp 98.2; Pulse Ox 100% on 4 lpm NC; sg 11/09 01:00 BP 116 / 75; Pulse 98; Resp 19; Pulse Ox 100% on 3 lpm NC; lp1 01:45 BP 125 / 70; Pulse 95; Resp 18; Pulse Ox 100% on 3 lpm NC; lp1 02:15 BP 127 / 76; Pulse 97; Resp 13; Pulse Ox 100% on 3 lpm NC; lp1 03:15 BP 122 / 74; Pulse 91; Resp 18; Pulse Ox 99% on 3 lpm NC; lp1 ED Course: 11/08 23:39 Patient arrived in ED. bp1 23:55 Rusty Dupont MD is Attending Physician. mh7 23:55 Arm band placed on. sg 23:58 Triage completed. sg 11/09 00:15 Inserted saline lock: 20 gauge in right antecubital area, using aseptic technique. lp1 Blood collected. 00:15 Initial lab(s) drawn, by me, sent to lab. First set of blood cultures drawn by me. lp1 00:19 Renata Bansal, RN is Primary Nurse. lp1 00:32 Patient has correct armband on for positive identification. Bed in low position. Call lp1 light in reach. teletypesetter monitor on. Pulse ox on. NIBP on. 00:32 Patient maintains SpO2 saturation greater than 95% on room air. lp1 00:44 XRAY Chest (1 view) In Process Unspecified. EDMS 01:56 Peter Horton DO is Hospitalizing Provider. [facility] 03:46 No provider procedures requiring assistance completed. IV discontinued, No lp1 redness/swelling at site. Pressure dressing applied. 03:50 Primary Nurse role handed off by Renata Bansal, RN sg Administered Medications: 00:31 Drug: SOLU-Medrol 125 mg Route: IVP; Site: right antecubital; lp1 02:26 Follow up: Response: No adverse reaction lp1 00:48 Drug: Albuterol - atroVENT (3:1) (2.5 mg - 0.5 mg) 3 ml Route: Nebulizer; lp1 02:00 Follow up: Patient states nausea due to nebulizer treatment; Provider notified; Patient lp1 states she can only do Xopenex treatments 00:49 Drug: Dilaudid 0.5 mg Route: IVP; Site: right antecubital; lp1 02:26 Follow up: Response: Pain is decreased lp1 02:00 Drug: Rocephin - (cefTRIAXone) 1 grams Route: IVPB; Infused Over: 30 mins; Site: right lp1 antecubital; 03:03 Follow up: IV Status: Completed infusion; IV Intake: 10ml lp1 02:00 Drug: Zofran (Ondansetron) 4 mg {Note: Verbal order from Dr. Dupont.} Route: IVP; Site: lp1 right antecubital; 03:00 Follow up: Response: No change in condition lp1 02:15 Drug: LevaQUIN 500 mg {Note: Verbal order from Dr. Dupont.} Volume: 100 ml; Route: lp1 IVPB; Infused Over: 60 mins; Site: right antecubital; 03:27 Follow up: IV Status: Completed infusion; IV Intake: 100ml lp1 02:22 Not Given (Physician Discretion): Zithromax 500 mg IVPB once over 1 hrs; mix in 250 mL lp1 NS 03:03 Drug: Zofran (Ondansetron) 4 mg Route: IVP; Site: right antecubital; lp1 03:48 Follow up: Response: Nausea is decreased lp1 03:04 Drug: Dilaudid 0.5 mg Route: IVP; Site: right antecubital; lp1 03:48 Follow up: Response: No adverse reaction; Pain is decreased lp1 Intake: 03:03 IV: 10ml; Total: 10ml. lp1 03:27 IV: 100ml; Total: 110ml. lp1 Outcome: 01:57 Decision to Hospitalize by Provider. [facility] 03:46 AMA AMA form signed lp1 03:46 Condition: good 03:46 Instructed on follow-up with patient's doctors 03:47 Patient left the ED. lp1 03:55 Patient left the ED. 1 Signatures: Dispatcher [employer] EDMS Xiang Waterman RN RN Renata Bansal RN RN [facility] Bev Martin Maurice, MD MD [facility] Corrections: (The following items were deleted from the chart) 11/08 23:59 23:55 Chief complaint: Patient states: Left sided rib pain, shortness of breath. reports having pain similar to this pain because it was a pneumothorax from a biopsy done several years ago. Reports having treatment from infectious disease provider in [place] for TNM 11/09 03:56 03:45 Reassessment: Patient states nausea resolved at this time, states readiness to lp1 go; AMA form signed; states follow-up with infectious disease tomorrow [facility]
--- NOTE | 2019-11-10 01:58 | EDPHYS ---
Physician Documentation [facility] Name: Kallie Correia Age: 59 yrs Sex: Female : 1960 Arrival Date: 11/09/2019 Time: 23:39 Bed 8 Private MD: ED Physician Rusty Dupont HPI: 11/09 00:21 This 59 yrs old Female presents to ER via Wheelchair with complaints of mh7 Shortness Of Breath, Rib Pain. 00:21 The patient has shortness of breath at rest. Onset: The symptoms/episode began/occurred mh7 yesterday. Duration: The symptoms are intermittent, with no pattern. The patient's shortness of breath is aggravated by coughing, exertion, is alleviated by nothing. Associated signs and symptoms: Pertinent positives: chest pain, non-productive cough, fever, wheezing, Pertinent negatives: productive cough, diaphoresis, dizziness, hemoptysis, loss of consciousness, nausea, numbness in extremities, visual changes, vomiting. Severity of symptoms: At their worst the symptoms were moderate last night, in the emergency department the symptoms are unchanged. Historical: - Allergies: 11/08 23:58 Morphine; sg - PMHx: 23:58 "frozen shoulder"; COPD; Emphysema; Non-tuberculin Mycoplasma; sg - PSHx: 23:58 Tonsillectomy; Hysterectomy; sg - Immunization history:: Adult Immunizations up to date. - Social history:: Smoking status: Patient denies any tobacco usage or history of. ROS: 11/09 00:21 Eyes: Negative for injury, pain, redness, and discharge, ENT: Negative for injury, mh7 pain, and discharge, Neck: Negative for injury, pain, and swelling, Abdomen/GI: Negative for abdominal pain, nausea, vomiting, diarrhea, and constipation, Back: Negative for injury and pain, : Negative for injury, bleeding, discharge, and swelling, MS/Extremity: Negative for injury and deformity, Skin: Negative for injury, rash, and discoloration, Neuro: Negative for headache, weakness, numbness, tingling, and seizure, Psych: Negative for depression, anxiety, suicide ideation, homicidal ideation, and hallucinations, Allergy/Immunology: Negative for hives, rash, and allergies, Endocrine: Negative for neck swelling, polydipsia, polyuria, polyphagia, and marked weight changes, Hematologic/Lymphatic: Negative for swollen nodes, abnormal bleeding, and unusual bruising. Exam: 01:05 ECG was reviewed by the Attending Physician. [facility] 03:28 Head/Face: Normocephalic, atraumatic. Eyes: Pupils equal round and reactive to light, 7 extra-ocular motions intact. Lids and lashes normal. Conjunctiva and sclera are non-icteric and not injected. Cornea within normal limits. Periorbital areas with no swelling, redness, or edema. Neck: Trachea midline, no thyromegaly or masses palpated, and no cervical lymphadenopathy. Supple, full range of motion without nuchal rigidity, or vertebral point tenderness. No Meningismus. Chest/axilla: Normal chest wall appearance and motion. Nontender with no deformity. No lesions are appreciated. Cardiovascular: Regular rate and rhythm with a normal S1 and S2. No gallops, murmurs, or rubs. Normal PMI, no JVD. No pulse deficits. 03:28 Abdomen/GI: Soft, non-tender, with normal bowel sounds. No distension or tympany. No guarding or rebound. No evidence of tenderness throughout. Back: No spinal tenderness. No costovertebral tenderness. Full range of motion. Skin: Warm, dry with normal turgor. Normal color with no rashes, no lesions, and no evidence of cellulitis. MS/ Extremity: Pulses equal, no cyanosis. Neurovascular intact. Full, normal range of motion. Neuro: Awake and alert, GCS 15, oriented to person, place, time, and situation. Cranial nerves II-XII grossly intact. Motor strength 5/5 in all extremities. Sensory grossly intact. Cerebellar exam normal. Normal gait. Psych: Awake, alert, with orientation to person, place and time. Behavior, mood, and affect are within normal limits. 03:28 Constitutional: The patient appears in no acute distress, alert, awake, uncomfortable. 03:28 Respiratory: mild respiratory distress is noted, Respirations: prolonged exhalation, that is mild, tachypnea, that is mild, Breath sounds: decreased breath sounds, that are moderate, are scattered, rhonchi, that are moderate, are scattered. Vital Signs: 11/08 23:55 BP 132 / 77; Pulse 96; Resp 26 S; Temp 98.2; Pulse Ox 100% on 4 lpm NC; sg 11/09 01:00 BP 116 / 75; Pulse 98; Resp 19; Pulse Ox 100% on 3 lpm NC; lp1 01:45 BP 125 / 70; Pulse 95; Resp 18; Pulse Ox 100% on 3 lpm NC; lp1 02:15 BP 127 / 76; Pulse 97; Resp 13; Pulse Ox 100% on 3 lpm NC; lp1 03:15 BP 122 / 74; Pulse 91; Resp 18; Pulse Ox 99% on 3 lpm NC; lp1 MDM: 00:05 Patient medically screened. [facility] 01:55 Differential diagnosis: Anemia Anxiety Reaction asthma, Bronchitis CHF exacerbation, mh7 Chronic Obstructive Pulmonary Disease Myocardial Infarction pneumonia, Pneumothorax pulmonary edema, reactive airway disease. Antibiotic administration:. Data reviewed: vital signs, nurses notes, old medical records, lab test result(s), cardiac enzymes, CBC, electrolytes, urinalysis, EKG, radiologic studies, plain films. Data interpreted: Pulse oximetry: on 3L(s) per nasal canula, is 100 %. Interpretation: acceptable. Counseling: I had a detailed discussion with the patient and/or guardian regarding: the historical points, exam findings, and any diagnostic results supporting the discharge/admit diagnosis, lab results, radiology results, the need for further work-up and treatment in the hospital. Response to treatment: the patient's symptoms have mildly improved after treatment. 03:55 Refusal of service: The patient/guardian displays adequate decision making capability [facility] and despite a detailed discussion of alternatives, benefits, risks, and consequences refuses: Admission to the hospital for further work-up and treatment, Medications. 11/09 00:05 Order name: Basic Metabolic Panel; Complete Time: :32 [facility] 11/09 00:05 Order name: CBC with Diff; Complete Time: 00:54 mh7 11/09 00:05 Order name: LFT's; Complete Time: :32 7 11/09 00:05 Order name: Magnesium; Complete Time: :32 7 11/09 00:05 Order name: NT PRO-BNP; Complete Time: :32 7 11/09 00:05 Order name: PT-INR; Complete Time: 00:54 7 11/09 00:05 Order name: Troponin (emerg Dept Use Only); Complete Time: :32 7 11/09 00:05 Order name: XRAY Chest (1 view) [facility] 11/09 00:06 Order name: Influenza Screen (a \\T\\ B) [facility] 11/09 00:06 Order name: Blood Culture Adult (2) [facility] 11/09 00:05 Order name: EKG; Complete Time: 00:06 [facility] 11/09 00:05 Order name: Cardiac monitoring; Complete Time: 00:19 [facility] 11/09 00:05 Order name: EKG - Nurse/Tech; Complete Time: 00: [facility] 11/09 00:05 Order name: IV Saline Lock; Complete Time: 00: [facility] 11/09 00:05 Order name: Labs collected and sent; Complete Time: 00: [facility] 11/09 00:05 Order name: O2 Per Protocol; Complete Time: 00: [facility] 11/09 00:05 Order name: O2 Sat Monitoring; Complete Time: 00: [facility] EC:05 Rate is 79 beats/min. Rhythm is regular, Normal Sinus Rhythm. QRS [place] is Normal. [place] mh7 interval is normal. QRS interval is normal. QT interval is normal. No Q waves. T waves are Normal. No ST changes noted. Clinical impression: Normal ECG. Administered Medications: 00:31 Drug: SOLU-Medrol 125 mg Route: IVP; Site: right antecubital; lp1 02:26 Follow up: Response: No adverse reaction 1 00:48 Drug: Albuterol - atroVENT (3:1) (2.5 mg - 0.5 mg) 3 ml Route: Nebulizer; 1 02:00 Follow up: Patient states nausea due to nebulizer treatment; Provider notified; Patient lp1 states she can only do Xopenex treatments 00:49 Drug: Dilaudid 0.5 mg Route: IVP; Site: right antecubital; lp1 02:26 Follow up: Response: Pain is decreased lp1 02:00 Drug: Rocephin - (cefTRIAXone) 1 grams Route: IVPB; Infused Over: 30 mins; Site: right lp1 antecubital; 03:03 Follow up: IV Status: Completed infusion; IV Intake: 10ml 1 02:00 Drug: Zofran (Ondansetron) 4 mg {Note: Verbal order from Dr. Dupont.} Route: IVP; Site: lp1 right antecubital; 03:00 Follow up: Response: No change in condition lp1 02:15 Drug: LevaQUIN 500 mg {Note: Verbal order from Dr. Dupont.} Volume: 100 ml; Route: lp1 IVPB; Infused Over: 60 mins; Site: right antecubital; 03:27 Follow up: IV Status: Completed infusion; IV Intake: 100ml lp1 02:22 Not Given (Physician Discretion): Zithromax 500 mg IVPB once over 1 hrs; mix in 250 mL lp1 NS 03:03 Drug: Zofran (Ondansetron) 4 mg Route: IVP; Site: right antecubital; lp1 03:48 Follow up: Response: Nausea is decreased lp1 03:04 Drug: Dilaudid 0.5 mg Route: IVP; Site: right antecubital; lp1 03:48 Follow up: Response: No adverse reaction; Pain is decreased lp1 Disposition: 11/10/19 03:54 Patient has left against medical advice. Impression: COPD Exacerbation, Pneumonia. - Patients states they are going to Home. - Condition is Stable. - Discharge Instructions: Community-Acquired Pneumonia, Adult, [id number], Chronic Obstructive Pulmonary Disease Exacerbation, [id number]. Follow up: Private Physician; When: 1 - 2 days; Reason: Worsening of condition, Recheck today's complaints, Continuance of care, Re-evaluation by your physician. - Problem is new. - Symptoms have improved. Signatures: Dispatcher [employer] [facility] Xiang Waterman RN RN Renata Bansal RN RN [facility] Rusty Dupont MD MD 7 Corrections: (The following items were deleted from the chart) 00:57 00:07 Arterial Blood Gas+[id number] ordered. [facility] EDSC 03:47 01:57 Hospitalization Ordered by Peter Horton DO for Observation. Preliminary lp1 diagnosis is COPD Exacerbation; Pneumonia. Bed requested for Telemetry/MedSurg (observation). Status is Observation. Condition is Stable. Problem is new. Symptoms have improved. mh7 03:53 03:47 11/10/2019 01:57 Hospitalization Ordered by Peter Horton DO for Observation. 7 Preliminary diagnosis is COPD Exacerbation; Pneumonia. Bed requested for Telemetry/MedSurg (observation). Status is Observation. Condition is Stable. Problem is new. Symptoms have improved. lp1 03:55 03:54 11/10/2019 03:54 Patients has left against medical advice. Impression: COPD lp1 Exacerbation; Pneumonia. Patient states they are going to Home. Condition is Stable. Follow up: Private Physician; When: 1 - 2 days; Reason: Worsening of condition, Recheck today's complaints, Continuance of care, Re-evaluation by your physician. Problem is new. Symptoms have improved. mh7
[2019-11-10] MEDS ORDERED: Levofloxacin500mg IV 500 MG/100 ML BAG IV ONE (02:09)
[2019-11-10] MEDS ORDERED: ONDANSETRON 4 MG/2 ML VIAL ONE ×2 (02:09→03:13)
[2019-11-10 04:04] VITALS: TEMP 98.2
[2019-11-10 04:14] VITALS: BP 122/74; O2SAT 99
--- NOTE | 2019-11-11 14:11 | RAD REPORT ---
EXAM DESCRIPTION: RAD - Chest Single View - 11/10/2019 12:44 am CLINICAL HISTORY: CHEST PAIN COMPARISON: CTA chest 05/03/2018. TECHNIQUE: AP Chest. FINDINGS: There are significant coarse parenchymal opacities within the right upper lobe which are p artially chronic but have increased since reference exam. There are coarse initial densities througho ut the remaining right and left lung due to superimposed edema and/or interstitial infiltrates. There are small areas of ground glass attenuation in the left lung suggesting pneumonitis. There is biapic al pleural thickening, right greater than left. There is a right apical cavitation without interval c hange. Lungs are hyperinflated. No pleural fluid. No pneumothorax. Heart is normal in size. Normal cardiomediastinal contours. Old left mid clavicle fracture. IMPRESSION: 1. Acute on chronic lung disease. Interstitial edema and/or pneumonia is evident bilater ally with small areas of pneumonitis in the left lung. Chronic right upper lobe scarring with a chron ic right apical cavitation and pleural thickening. Electronically signed by: Lakisha Frye DO 11/10/2019 1:02 AM CDT Due to temporary technical issues with the PACS/Fluency reporting system, reports are being signed by the in house radiologist without review as a courtesy to ensure prompt reporting. The interpreting r adiologist is fully responsible for the content of the report.
--- OUTSIDE RECORDS SUMMARY | 2019-11-13 02:27 | XMS REPORT ---
:1960 Author Organization [employer] Care Team Providers Name Role Phone Markie Blake Provider Role Unavailable Allergies No Known Allergies Problems Problem Type Condition Code Onset Dates Condition Statu s Problem Encounter for gynecological Z01.419 Active examination without abnormal finding Problem Hot flashes due to menopause N95.1 Active Problem Encounter for screening mammogram Z12.31 Active for breast cancer Problem Chronic obstructive pulmonary J44.9 Active disease, unspecified COPD type Medications No Known Medications Results No Known Results Summary Purpose [employer] Submission
--- OUTSIDE RECORDS SUMMARY | 2019-11-13 02:27 | XMS REPORT | Continuity of Care Document ---
:1960 Author Organization [facility] t Address [address] [place] [address] Care Team Providers Name Role Phone Fountain Attending Clinician Ceferino Mancera MD Attending Clinician Jewels Mirza Attending Clinician Problems Condition Condition Condition Status Onset Resolution Last Treating Co mments Source Name Details Category Date Date Treatment Clinician Date Chronic Chronic Problem Active [facility] obstruct[facility] obstructiv Lynn kes - e e [facility] pulmonary pulmonary l disease, disease, Outpat i unspecifie unspecifie en t d COPD d COPD Clinics type type Encounter Encounter Problem Active [facility] - gynecologi gynecologi Me moria kandis kandis l examinatio examinatio Ou tpati n without n without ent abnormal abnormal Clinic s finding finding Hot Hot Problem Active [facility] flashes flashes [facility] - due to due to Mem[facility] menopause menopause l Outpati ent Clinics Encounter Encounter Problem Active [facility] - screening screening [place] mammogram mammogram l for breast for breast Ou tpati cancer cancer ent Clinics Allergies, Adverse Reactions, Alerts Allergy Allergy Status Severity Reaction(s) Onset Inactive Treating Comm ents Source Name Type Date Date Clinician MORPHINE Adverse Active Info Not [facility] Reaction Available [facility] Medications Ordered Filled Start Stop Current Ordering Indication Dosage Frequency Signature Comments Components Source Medication Medication Date Date Medication? Clinician (SIG) Name Name Paroxetine Paroxetine 2017-02 Yes Artur [address] [facility] Mesylate Mesylate 03-05 Rekhi at bedtime [facility] l Outpati ent Clinics Incruse Incruse Yes Artur [address] Ellipta Ellipta Rekhi [facility]ics Beau Yanez Yes Artur [address] [facility] Ellipta Ellipta Rekhi [facility] Hydrocodone Hydrocodone Yes Artur [address] [facility] [address] Bitartrate Bitartrate Rekhi Lynn k[facility] Procedures This patient has no known procedures. Encounters Start End Encounter Admission Attending Care Care Encounter Source Date/Time Date/Time Type Type Clinicians Facility Department ID 2019-09-20 2019-09-21 Emergency Singer [facility] [id number] 22:42:00 02:53:00 Robert Webb [id number] [place] [id number] [place] [id number] 2019-08-26 2019-08-26 Telephone Jacob Mancera [facility] [id number] 00:00:00 00:00:00 [facility] [id number] [facility] [id number] 2019-08-20 2019-08-20 Office Mikaela [facility] [id number] 15:02:58 16:18:49 Visit [facility] [id number] Surgical [id number] Special [id number] max Webb 2019-08-19 2019-08-19 Out[facility] [id number] 13:47:00 13:47:00 [facility] ent [facility] 2019-03-18 2019-03-18 Inpatient E [facility] MED [id number] [facility] 20:07:00 14:57:00 2018-02-06 2018-02-06 [facility] [id number] 15:15:00 15:15:00 t [facility] Care [facility] ent Clinics 2018-01-03 2018-01-03 [facility] [id number] [address] 09:30:00 09:30:00 t Womens Womens [facility] 2017-09-13 2017-09-13 Outpatient Richardson Mackey [id number] [address] 08:00:00 08:00:00 [facility] 2017-09-06 2017-09-06 Outpatient Richardson Mackey [id number] [address] 10:00:00 10:00:00 [facility] Results This patient has no known results.
== END 2019-11-10 03:55 | disposition left against medical advice (07) ==
LOC: ER 23:35
DX: J44.1 Chronic obstructive pulmonary disease with (acute) exacerbation (principal); J18.9 Pneumonia, unspecified organism; Z88.5 Allergy status to narcotic agent
CPT/HCPCS: 96365; 93005; 87040 ×2; 85025; 80048; 36415; 83735; 85610; 80076; 84484; 83880; 87804 ×2; 71045; 96375; 99285; J0456; J1170 ×2; J0696; J7050; J2930; J2405 ×2

== ENCOUNTER 2020-05-29 00:13 | Inpatient (IN) | payer OTHER ==
--- OUTSIDE RECORDS SUMMARY | 2020-05-29 00:15 | XMS REPORT | Continuity of Care Document ---
:1960 Author Organization [facility] t Address [address] [place] [address] Care Team Providers Name Role Phone Jewels Mirza Attending Clinician Problems Condition Condition [...] Medication? Clinician (SIG) Name Name Paroxetine Paroxetine 2018-1 Yes Artur [address] [facility] [address] Mesylate Mesylate 03-05 Rekhi at bedtime [facility] - 00:00: [facility] 00 [facility] Incruse Incruse Yes Artur [address] Ellipta Ellipta Rekhi [facility] Beau Yanez Yes Artur [address] Ellipta Ellipta Rekhi [facility] Hydrocodone Hydrocodone Yes Artur [address] Bitartrate Bitartrate Rekhi Lynn kes [facility] Procedures This patient has no known procedures. Encounters Start End Encounter Admission Attending Care Care Encounter Source Date/Time Date/Time Type Type Clinicians Facility Department ID 2020-05-11 2020-05-11 Office ELENI Al [id number] 12:47:23 13:02:23 Visit [facility] [id number] Surgical [id number] Special [id number] [place] 2019-08-19 2019-08-19 [facility] [id number] 13:47:00 13:47:00 t [facility] Mem[facility] 2019-03-18 2019-03-18 Inpatient E [facility] MED [id number] [facility] 20:07:00 14:57:00 2018-02-06 2018-02-06 [facility] [id number] 15:15:00 15:15:00 t [facility] 2018-01-03 2018-01-03 [facility] [id number] 09:30:00 09:30:00 t [facility] [place] [facility] 2017-09-13 2017-09-13 [facility] [id number] 08:00:00 08:00:00 t [facility] Mem[facility] 2017-09-06 2017-09-06 [facility] [id number] 10:00:00 10:00:00 t [facility] ent Clinics Results This patient has no known results.
[2020-05-29 00:47] LABS: Absolute Lymphocytes (CBC) 1.1 K/uL (0.7-4.9); Basophils % 0.5 % (0-1.3); Hematocrit 34.4 % (36.0-45.0); Lymphocytes % 12.2 % (15.3-44.8); MPV 7.4 fL (7.6-11.3); RBC Red Blood Cell Count 3.98 M/uL (3.86-4.86)
[2020-05-29 00:50] LABS: Protime INR 0.92
[2020-05-29] MEDS ORDERED: NA CHLORIDE 0.9% 1,000 ML ONE (00:51)
[2020-05-29] MEDS ORDERED: ACETAMINOPHEN 500 MG TAB ONE ×2 (00:51→10:21)
[2020-05-29 01:02] LABS: ALT/SGPT 58 U/L (12-78); AST/SGOT 70 U/L (15-37); Albumin 3.1 g/dL (3.4-5.0); Alkaline Phosphatase 129 U/L (45-117); Amylase 49 U/L (25-115); BUN Blood Urea Nitrogen 10 mg/dL (7-18); Bicarbonate 32 mmol/L (21-32); Bilirubin Direct < 0.1 mg/dL (0-0.2); Bilirubin Total 0.1 mg/dL (0.2-1.0); CKMB Creatine Kinase MB < 1.0 ng/mL (0.3-3.6); Creatine Phosphokinase 42 U/L (26-192); Glucose Level 126 mg/dL (74-106); Lipase 62 U/L (73-393); Potassium 3.9 mmol/L (3.5-5.1); Protein, Total 7.4 g/dL (6.4-8.2); Sodium Level 140 mmol/L (136-145); Troponin (Emerg Dept Use Only) < 0.02 ng/mL (0.0-0.045)
[2020-05-29] MEDS ORDERED: ALBUTEROL INHALER 60 PUFF/8 GM IH ONE (01:05)
[2020-05-29 01:41] LABS: SARS-COV-2 RT PCR NEGATIVE (NEGATIVE)
[2020-05-29] MEDS ORDERED: HYDROMORPHONE HCL 0.5 MG/0.5 ML INJ ONE (01:46)
[2020-05-29] MEDS ORDERED: ONDANSETRON 4 MG/2 ML VIAL ONE (02:37)
--- NOTE | 2020-05-29 03:02 | EDPHYS ---
Physician Documentation [facility] Name: Kallie Correia Age: 59 yrs Sex: Female : 1960 Arrival Date: 05/29/2020 Time: 00:14 Bed 5 Private MD: ED Physician Rusty Dupont HPI: 05/29 00:32 This 59 yrs old Female presents to ER via EMS with complaints of Cough. mh7 Shortness of breath. 00:33 The patient or guardian reports cough, that is intermittent, described as moderate, mh7 with no sputum, difficulty breathing. Onset: The symptoms/episode began/occurred 2 day(s) ago. Severity of symptoms: At their worst the symptoms were moderate, yesterday, in the emergency department the symptoms are unchanged. Modifying factors: The symptoms are alleviated by nothing, the symptoms are aggravated by nothing. Associated signs and symptoms: Pertinent positives: chest pain, with cough, fever, rhinorrhea, Pertinent negatives: diarrhea, ear ache, nausea, sore throat, vomiting. Historical: - Allergies: 00:18 Morphine; mg2 - Home Meds: 00:18 metoprolol [Active]; gabapentin [Active]; mg2 - PMHx: 00:18 "frozen shoulder"; COPD; Emphysema; Non-tuberculin Mycoplasma; mg2 - PSHx: 00:18 Hysterectomy; Tonsillectomy; mg2 - Immunization history:: Client reports having NOT received the Covid vaccine. Flu vaccine status is unknown. - Social history:: Smoking status: unknown. ROS: 00:33 Eyes: Negative for injury, pain, redness, and discharge, ENT: Negative for injury, mh7 pain, and discharge, Neck: Negative for injury, pain, and swelling, Abdomen/GI: Negative for abdominal pain, nausea, vomiting, diarrhea, and constipation, Back: Negative for injury and pain, : Negative for injury, bleeding, discharge, and swelling, MS/Extremity: Negative for injury and deformity, Skin: Negative for injury, rash, and discoloration, Neuro: Negative for headache, weakness, numbness, tingling, and seizure, Psych: Negative for depression, anxiety, suicide ideation, homicidal ideation, and hallucinations, Allergy/Immunology: Negative for hives, rash, and allergies, Endocrine: Negative for neck swelling, polydipsia, polyuria, polyphagia, and marked weight changes, Hematologic/Lymphatic: Negative for swollen nodes, abnormal bleeding, and unusual bruising. Exam: 00:33 Constitutional: This is a well developed, well nourished patient who is awake, alert, mh7 and in no acute distress. Head/Face: Normocephalic, atraumatic. Eyes: Pupils equal round and reactive to light, extra-ocular motions intact. Lids and lashes normal. Conjunctiva and sclera are non-icteric and not injected. Cornea within normal limits. Periorbital areas with no swelling, redness, or edema. Neck: Trachea midline, no thyromegaly or masses palpated, and no cervical lymphadenopathy. Supple, full range of motion without nuchal rigidity, or vertebral point tenderness. No Meningismus. Chest/axilla: Normal chest wall appearance and motion. Nontender with no deformity. No lesions are appreciated. 00:33 Abdomen/GI: Soft, non-tender, with normal bowel sounds. No distension or tympany. No guarding or rebound. No evidence of tenderness throughout. Back: No spinal tenderness. No costovertebral tenderness. Full range of motion. Skin: Warm, dry with normal turgor. Normal color with no rashes, no lesions, and no evidence of cellulitis. MS/ Extremity: Pulses equal, no cyanosis. Neurovascular intact. Full, normal range of motion. Neuro: Awake and alert, GCS 15, oriented to person, place, time, and situation. Cranial nerves II-XII grossly intact. Motor strength 5/5 in all extremities. Sensory grossly intact. Cerebellar exam normal. Normal gait. Psych: Awake, alert, with orientation to person, place and time. Behavior, mood, and affect are within normal limits. 00:33 Cardiovascular: Rate: tachycardic, Rhythm: regular, Pulses: no pulse deficits are appreciated, Heart sounds: normal, normal S1and S2, Edema: is not appreciated, JVD: is not appreciated. 00:33 Respiratory: the patient does not display signs of respiratory distress, Respirations: prolonged exhalation, that is mild, Breath sounds: rhonchi, that are moderate, are scattered, Respiratory rate: 22 Vital Signs: 00:14 BP 132 / 81; Pulse 118; Resp 22; Temp 100.1; Pulse Ox 99% on 2.5 lpm NC; Weight 54.43 mg2 kg; Height 5 ft. 2 in. (157.48 cm); 02:21 BP 121 / 73; Pulse 88; Resp 18; Temp 98.3(TE); Pulse Ox 99% on 2.5 lpm NC; Pain 7/10; mg2 00:14 Body Mass Index 21.95 (54.43 kg, 157.48 cm) mg2 MDM: 03:00 Differential Diagnosis: Obstructed Airway Bronchitis Influenza Upper Respiratory mh7 Infection Asthma Exacerbation Viral Syndrome Pneumonia Other COPD Exacerbation. Data reviewed: vital signs, nurses notes, EMS record, old medical records, lab test result(s), cardiac enzymes, CBC, electrolytes, EKG, radiologic studies, CT scan, plain films. Data interpreted: Pulse oximetry: on 3L(s) per nasal canula, is 98 %. Interpretation: acceptable. Counseling: I had a detailed discussion with the patient and/or guardian regarding: the historical points, exam findings, and any diagnostic results supporting the discharge/admit diagnosis, lab results, radiology results, the need for further work-up and treatment in the hospital. Response to treatment: the patient's symptoms have mildly improved after treatment. 03:02 Patient medically screened. mh7 05/29 00:21 Order name: Amylase, Serum mg2 05/29 00:21 Order name: Basic Metabolic Panel mg2 05/29 00:21 Order name: Blood Culture Adult (2) mg2 05/29 00:21 Order name: CBC with Diff mg2 05/29 00:21 Order name: Ckmb mg2 05/29 00:21 Order name: CPK mg2 05/29 00:21 Order name: Lactate; Complete Time: 01:06 mg2 05/29 00:21 Order name: LFT's; Complete Time: 01: mg2 05/29 00:21 Order name: Lipase; Complete Time: 01: mg2 05/29 00:21 Order name: Procalcitonin; Complete Time: 01:45 mg2 05/29 00:21 Order name: Protime (+inr); Complete Time: :27 mg2 05/29 00:21 Order name: Ptt, Activated; Complete Time: :27 mg2 05/29 00:21 Order name: Troponin (emerg Dept Use Only); Complete Time: 01:06 mg2 05/29 00:21 Order name: Urine Microscopic Only mg2 05/29 00:21 Order name: Amylase; Complete Time: 01:06 EDMS 05/29 00:21 Order name: Basic Metabolic Panel; Complete Time: 01:06 EDMN 05/29 00:22 Order name: Blood Culture [facility] 05/29 00:22 Order name: CBC with Automated Diff; Complete Time: 01:06 [facility] 05/29 00:22 Order name: CKMB Creatine Kinase MB; Complete Time: 01:06 EDMN 05/29 00:22 Order name: Creatine Phosphokinase; Complete Time: 01:06 [facility] 05/29 00:25 Order name: Influenza Screen (a \\T\\ B) [facility] 05/29 00:25 Order name: COVID-19 : Document "Date of Symptom Onset" if Symptomatic. [facility] 05/29 00:41 Order name: Glucose, Ancillary Testing; Complete Time: 00:48 [facility] 05/29 01:41 Order name: COVID-19/FLU A+B; Complete Time: 01:45 EDMN 05/29 03:14 Order name: Urine Dipstick-Ancillary [facility] 05/29 04:16 Order name: Sputum Culture [facility] 05/29 04:16 Order name: Comprehensive Metabolic Panel [facility] 05/29 04:16 Order name: Comprehensive Metabolic Panel [facility] 05/29 00:21 Order name: Chest Single View XRAY [facility] 05/29 00:21 Order name: Accucheck; Complete Time: 00:30 [facility] 05/29 00:21 Order name: Cardiac monitoring; Complete Time: 00:30 [facility] 05/29 00:21 Order name: EKG - Nurse/Tech; Complete Time: 00:44 [facility] 05/29 00:21 Order name: IV Saline Lock - Large Bore; Complete Time: 00:44 [facility] 05/29 00:21 Order name: Labs collected and sent; Complete Time: 00:44 [facility] 05/29 00:21 Order name: O2 Per Protocol; Complete Time: 00:44 [facility] 05/29 00:21 Order name: O2 Sat Monitoring; Complete Time: 00:44 [facility] 05/29 00:21 Order name: Urine Dipstick-Ancillary (obtain specimen); Complete Time: 03:46 [facility] 05/29 01:07 Order name: CT Chest For PE Angio [facility] 05/29 03:38 Order name: CONS Physician Consult [facility] 05/29 04:16 Order name: Heart Healthy [facility] 05/29 04:16 Order name: Comprehensive Metabolic Panel [facility] 05/29 04:16 Order name: Magnesium EDMS 05/29 04:16 Order name: Magnesium EDMS 05/29 04:16 Order name: Magnesium EDMS 05/29 04:16 Order name: Phosphorus [facility] 05/29 04:17 Order name: Urinalysis EDMN 05/29 04:17 Order name: Phosphorus EDMN 05/29 04:17 Order name: Phosphorus EDMN Administered Medications: 00:44 Drug: Tylenol 1000 mg Route: PO; mg2 01:43 Follow up: Response: No adverse reaction mg2 00:45 Drug: NS 0.9% (30 ml/kg) 30 ml/kg Route: IV; Rate: bolus; Site: right antecubital; mg2 00:50 Not Given (Patient Refused; patient said it makes her breathing worse): Albuterol HFA mg2 Inhaler 2 puffs Inhalation once 01:30 Drug: Dilaudid (HYDROmorphone) 0.5 mg Route: IVP; Site: right antecubital; mg2 03:36 Follow up: Response: No adverse reaction mg2 03:30 Drug: Phenergan (promethazine) 12.5 mg Route: IVP; Site: right antecubital; mg2 03:35 Drug: Lovenox (enoxaparin) 1 mg/kg Route: Sub-Q; Site: right lower abdomen; mg2 03:36 Drug: Rocephin - (cefTRIAXone) 1 grams Route: IVPB; Infused Over: 30 mins; Site: right mg2 antecubital; 03:36 Drug: AZITHromycin 500 mg Route: IVPB; Infused Over: 1 hrs; Site: right antecubital; mg2 03:36 Drug: Xopenex (levalbuterol) 0.63 mg Route: Inhalation; mg2 03:36 Drug: SOLU-Medrol (methylPrednisoLONE) 125 mg Route: IVP; Site: right antecubital; mg2 Disposition: 05/29/20 03:02 Hospitalization ordered by Danny Chery for Inpatient Admission. Preliminary diagnosis are Pneumonia, COPD Exacerbation, Pulmonary Embolus, Vomiting. - Bed requested for Telemetry/MedSurg (Inpatient). - Status is Inpatient Admission. ss - Condition is Stable. - Problem is an acute exacerbation. - Symptoms have improved. Signatures: Dispatcher [employer] [facility] Gwendolyn Alcala RN RN mw Smirch, Shelby, RN RN Idalmis Quinones, JEANETTE REID Carlos Thompson, JEANETTE REID [facility] Rusty Dupont MD MD mh7 Corrections: (The following items were deleted from the chart) 00:44 00:25 Influenza Screen (A ordered. EDMN EDMS 00:44 00:25 CORONAVIRUS ordered. [facility] EDMN 03:20 03:02 Hospitalization Ordered by Danny Chery MD for Inpatient Admission. Preliminary diagnosis is Pneumonia; COPD Exacerbation; Pulmonary Embolus; Vomiting. Bed requested for Telemetry/MedSurg (Inpatient). Status is Inpatient Admission. Condition is Stable. Problem is an acute exacerbation. Symptoms have improved. mh7 04:16 00:22 UA MICROSCOPIC+U.LAB.BRZ ordered. [facility] EDMN 11:42 03:20 05/29/2020 03:02 Hospitalization Ordered by Danny Chery MD for Inpatient hb Admission. Preliminary diagnosis is Pneumonia; COPD Exacerbation; Pulmonary Embolus; Vomiting. Bed requested for [facility] ER HOLD. Status is Inpatient Admission. Condition is Stable. Problem is an acute exacerbation. Symptoms have improved. mw 12:04 11:42 05/29/2020 03:02 Hospitalization Ordered by Danny Chery MD for Inpatient ss Admission. Preliminary diagnosis is Pneumonia; COPD Exacerbation; Pulmonary Embolus; Vomiting. Bed requested for Telemetry/MedSurg (Inpatient). Status is Inpatient Admission. Condition is Stable. Problem is an acute exacerbation. Symptoms have improved. hb
--- NOTE | 2020-05-29 03:02 | ER ---
Nurse's Notes [facility] Name: Kallie Correia Age: 59 yrs Sex: Female : 1960 Arrival Date: 05/29/2020 Time: 00:14 Bed 5 Private MD: Diagnosis: Pneumonia;COPD Exacerbation;Pulmonary Embolus;Vomiting Presentation: 05/29 00:14 Chief complaint: EMS states: she has cough and shortness of breath for 2 days with mg2 chest wall pain, fever today and tylenol was taken 4 hours DRY KILN BURNER, 99.7 F enroute. history of COPD. Coronavirus screen: Client denies travel out of the [place] in the last 14 days. Client presents with at least one sign or symptom that may indicate coronavirus-19. Standard/surgical mask placed on the client. Provider contacted for isolation considerations. Ebola Screen: No symptoms or risks identified at this time. Initial Sepsis Screen: Does the patient meet any 2 criteria? RR > 20 per min. Temp <36.0*C (96.8*F)) or > 38.3*C (100.9*F). HR > 90 bpm. Does the patient have a suspected source of infection? Yes: Productive cough/pneumonia. Risk Assessment: Do you want to hurt yourself or someone else? Patient reports no desire to harm self or others. Onset of symptoms was May 28, 2020. 00:14 Method Of Arrival: EMS: [place] [id number] 00:14 Acuity: BENJI 2 mg2 Triage Assessment: 00:19 General: Appears in no apparent distress. Behavior is calm, cooperative. Pain: mg2 Complains of pain in chest. EENT: No signs and/or symptoms were reported regarding the EENT system. Neuro: Level of Consciousness is awake, alert, obeys commands, Oriented to person, place, time, situation. Cardiovascular: Reports chest pain, shortness of breath, Capillary refill < 3 seconds Patient's skin is warm and dry. Respiratory: Reports shortness of breath cough that is. GI: No signs and/or symptoms were reported involving the gastrointestinal system. : No signs and/or symptoms were reported regarding the genitourinary system. Derm: Skin is intact, is healthy with good turgor, Skin is pink, warm \\T\\ dry. normal. Musculoskeletal: Circulation, motion, and sensation intact. Capillary refill < 3 seconds. Historical: - Allergies: 00:18 Morphine; mg2 - Home Meds: 00:18 metoprolol [Active]; gabapentin [Active]; mg2 - PMHx: 00:18 "frozen shoulder"; COPD; Emphysema; Non-tuberculin Mycoplasma; mg2 - PSHx: 00:18 Hysterectomy; Tonsillectomy; mg2 - Immunization history:: Client reports having NOT received the Covid vaccine. Flu vaccine status is unknown. - Social history:: Smoking status: unknown. Screenin:42 Abuse screen: Denies threats or abuse. Denies injuries from another. Nutritional mg2 screening: No deficits noted. Tuberculosis screening: No symptoms or risk factors identified. Fall Risk IV access (20 points). Assessment: 00:21 General: Appears in no apparent distress. uncomfortable, Behavior is calm, cooperative. mg2 Pain: Complains of pain in chest. Neuro: Level of Consciousness is awake, alert, obeys commands. Cardiovascular: Capillary refill < 3 seconds Patient's skin is warm and dry. Respiratory: Airway is patent Respiratory effort is even, unlabored, Respiratory pattern is regular, symmetrical. GI: No signs and/or symptoms were reported involving the gastrointestinal system. :. EENT: No signs and/or symptoms were reported regarding the EENT system. 01:32 Reassessment: patient sent to ct scan via stretcher with oxygen via nc. mg2 02:21 Reassessment: Patient appears in no apparent distress at this time. Patient states mg2 feeling better. Patient states symptoms have improved. 03:37 Reassessment: patient agreed for hospitalization. hospital bed provided. mg2 Vital Signs: 00:14 BP 132 / 81; Pulse 118; Resp 22; Temp 100.1; Pulse Ox 99% on 2.5 lpm NC; Weight 54.43 mg2 kg; Height 5 ft. 2 in. (157.48 cm); 02:21 BP 121 / 73; Pulse 88; Resp 18; Temp 98.3(TE); Pulse Ox 99% on 2.5 lpm NC; Pain 7/10; mg2 00:14 Body Mass Index 21.95 (54.43 kg, 157.48 cm) mg2 ED Course: 00:14 Patient arrived in ED. mg2 00:14 Carlos Thompson RN is Primary Nurse. mg2 00:14 Rusty Dupont MD is Attending Physician. mh7 00:17 Triage completed. mg2 00:20 Arm band placed on. mg2 00:35 Inserted saline lock: 20 gauge in left antecubital area, using aseptic technique. Blood mg2 collected. 00:40 Chest Single View XRAY In Process Unspecified. EDMS 00:42 No provider procedures requiring assistance completed. mg2 00:42 Maintain EMS IV. Good blood return noted. Site clean \\T\\ dry. Gauge \\T\\ site: 20 \\T\\ RAC. mg2 00:43 Patient has correct armband on for positive identification. mg2 01:53 CT Chest For PE Angio In Process Unspecified. EDMS 03:01 Danny Chery MD is Hospitalizing Provider. mh7 03:37 Patient admitted, IV remains in place. mg2 08:49 Daughter Dixie called states she is the POA/ she is the cutter inspector of her mother. All eb information should be called and relayed to her at [phone]. She would like us to know she is out of town but still would like to be called. Hospitalist notified. Administered Medications: 00:44 Drug: Tylenol 1000 mg Route: PO; mg2 01:43 Follow up: Response: No adverse reaction mg2 00:45 Drug: NS 0.9% (30 ml/kg) 30 ml/kg Route: IV; Rate: bolus; Site: right antecubital; mg2 00:50 Not Given (Patient Refused; patient said it makes her breathing worse): Albuterol HFA mg2 Inhaler 2 puffs Inhalation once 01:30 Drug: Dilaudid (HYDROmorphone) 0.5 mg Route: IVP; Site: right antecubital; mg2 03:36 Follow up: Response: No adverse reaction mg2 03:30 Drug: Phenergan (promethazine) 12.5 mg Route: IVP; Site: right antecubital; mg2 03:35 Drug: Lovenox (enoxaparin) 1 mg/kg Route: Sub-Q; Site: right lower abdomen; mg2 03:36 Drug: Rocephin - (cefTRIAXone) 1 grams Route: IVPB; Infused Over: 30 mins; Site: right mg2 antecubital; 03:36 Drug: AZITHromycin 500 mg Route: IVPB; Infused Over: 1 hrs; Site: right antecubital; mg2 03:36 Drug: Xopenex (levalbuterol) 0.63 mg Route: Inhalation; mg2 03:36 Drug: SOLU-Medrol (methylPrednisoLONE) 125 mg Route: IVP; Site: right antecubital; mg2 Outcome: 03:02 Decision to Hospitalize by Provider. mh7 03:37 Admitted to ER Hold. Please see [facility] for further documentation. mg2 03:37 Condition: stable 03:37 Instructed on the need for admit, Demonstrated understanding of instructions. 12:04 Patient left the ED. ss Signatures: Dispatcher [employer] EDMinerva Snell RN RN ss Nicole Cook Michele, RN RN mg2 Rusty Dupont MD MD 7 Corrections: (The following items were deleted from the chart) 00:50 00:43 Albuterol HFA Inhaler 2 puffs Inhalation mg2 mg2
[2020-05-29 03:15] LABS: Urine Blood Negative (Negative); Urine Glucose Negative (Negative); Urine Protein Negative (Negative)
[2020-05-29] MEDS ORDERED: METHYLPREDNISOLONE 125 MG INJ ONE ×2 (03:34→09:00)
[2020-05-29] MEDS ORDERED: PROMETHAZINE INJ 25 MG/ML AMP ONE (03:35)
[2020-05-29] MEDS ORDERED: CEFTRIAXONE/SWI 1gm 1 GM/10 ML SYR ONE (03:35)
[2020-05-29] MEDS ORDERED: NA CHLORIDE 0.9% 250 ML ONE (03:35)
[2020-05-29] MEDS ORDERED: LEVALBUTEROL 0.63 MG/3 ML NEB ONE (03:35)
[2020-05-29] MEDS ORDERED: ENOXAPARIN 60 MG/0.6 ML SQ ONE (03:35)
[2020-05-29] MEDS ORDERED: AZITHROMYCIN 500 MG INJ IVPB ONE (03:36)
--- NOTE | 2020-05-29 04:13 | P.HP ---
Certification for Inpatient Patient admitted to: Inpatient With expected LOS: >2 Midnights Patient will require the following post-hospital care: None Practitioner: I am a practitioner with admitting privileges, knowledge of patient current condition, hospital course, and medical plan of care. Services: Services provided to patient in accordance with Admission requirements found in Title 42 Section 412.3 of the Code of Federal Regulations <JusticeEver Donis - Last Filed: 05/29/20 04:08> Patient History Date of Service: 05/29/20 Reason for admission: copd exacerbation, PE History of Present Illness: Ms. Correia is a 59 yo F with HTN and COPD here today with 2 days of increased yellow sputum production, SOB, cough, pleuritic pain and fatigue. She denies night sweats, chills, nausea, vomiting, wheezing. CTPE showed tiny filling defect within the pulmonary arterial branches of the right lower lobe concerning for pulmonary embolism. Cavitary consolidation in right upper lobe with scattered areas of calcification and scarring with a few small areas of consolidation with calcification and scarring in the left upper lobe suggestive of chronic infection. Numerous small nodular opacities through lungs bilaterally suggestive of infectious etiology but neoplasm not entirely excluded. A few prominent lymph nodes in mediastinum. 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 -: HTN -: Hysterectomy -: Tubal ligation -: tosillectomy -: R leg sx with metal screws -: Patient has had fine-needle aspiration complicated by pneumothorax -: Bronchoscopy at [facility] - Family History Mother -: Cancer Sister -: Cancer Father -: Heart disease Brother -: Lung disease - Social History Smoking Status: Former smoker Alcohol use: No CD- Drugs: No Caffeine use: No Place of Residence: Home <Ever Rendon - Last Filed: 05/29/20 04:08> Date of Service: 05/29/20 <Danny Chery - Last Filed: 05/29/20 13:38> Allergies codeine [Codeine] Allergy (Intermediate, Verified 10/23/15 06:09) Hives/Rash morphine Allergy (Intermediate, Verified 10/23/15 06:09) Hives/Rash Home Medications: Fluticasone Propion/Salmeterol [Fluticasone-Salmeterol 250-50] 1 puff BID 05/29/20 Gabapentin 400 mg PO BID 05/29/20 Metoprolol Tartrate [Lopressor] 12.5 mg PO DAILY 05/29/20 Review of Systems General: Fever, Malaise, As per HPI Eyes: Unremarkable ENT: Unremarkable Respiratory: Cough, Shortness of Breath, SOB with Excertion, Pleuritic Pain, Sputum, As per HPI Cardiovascular: Unremarkable Gastrointestinal: Unremarkable Genitourinary: Unremarkable Musculoskeletal: Unremarkable Integumentary: Unremarkable Neurological: Unremarkable Lymphatics: Unremarkable <Ever Rendon - Last Filed: 05/29/20 04:08> Physical Examination - Physical Exam General: In no apparent distress HEENT: Atraumatic, Normocephalic, PERRLA, Mucous membr. moist/pink, EOMI, Sclerae nonicteric Neck: Supple, 2+ carotid pulse no bruit, JVD not distended, No Thyromegaly, No LAD Respiratory: Diminished, Expiratory wheezes, Rhonchi/gurgles Cardiovascular: No edema, Normal pulses, Regular rate/rhythm, Normal S1 S2, No gallops, No rubs, No murmurs Capillary refill: <2 Seconds Gastrointestinal: Normal bowel sounds, Soft and benign, Non-distended, No ascites, No tenderness, No masses, No rebound, No guarding Musculoskeletal: No clubbing, No swelling, No contractures, No erythema, No tenderness, No warmth Integumentary: No rashes, No breakdown, No significant lesion, No tenderness/swelling, No erythema, No warmth, No cyanosis Neurological: Normal strength at 5/5 x4 extr, Normal tone, Sensation intact, Cranial nerves 3-12 intact Lymphatics: No axilla or inguinal lymphadenopathy - Studies Laboratory Data (last 24 hrs) 05/29/20 00:20: PT 10.6, INR 0.92, APTT 32.4 05/29/20 00:20: WBC 9.20, Hgb 11.2 L, Hct 34.4 L, Plt Count 279 05/29/20 00:20: Sodium 140, Potassium 3.9, BUN 10, Creatinine 0.60, Glucose 126 H, Total Bilirubin 0.1 L, AST 70 H, ALT 58, Alkaline Phosphatase 129 H, Amylase 49, Lipase 62 L <Ever Rendon - Last Filed: 05/29/20 04:08> - Studies Laboratory Data (last 24 hrs) 05/29/20 04:45: Sodium 139, Potassium 3.9, BUN 8, Creatinine 0.53 L, Glucose 149 H, Phosphorus 3.1, Magnesium 1.7 L, Total Bilirubin 0.1 L, AST 49 H, ALT 52, Alkaline Phosphatase 115 05/29/20 00:20: PT 10.6, INR 0.92, APTT 32.4 05/29/20 00:20: WBC 9.20, Hgb 11.2 L, Hct 34.4 L, Plt Count 279 05/29/20 00:20: Sodium 140, Potassium 3.9, BUN 10, Creatinine 0.60, Glucose 126 H, Total Bilirubin 0.1 L, AST 70 H, ALT 58, Alkaline Phosphatase 129 H, Amylase 49, Lipase 62 L <Danny Chery - Last Filed: 05/29/20 13:38> Assessment and Plan - Problems (Diagnosis) (1) Hypertension Current Visit: Yes Status: Chronic Qualifiers: Hypertension type: essential hypertension Qualified Code(s): I10 - Essential (primary) hypertension (2) Pulmonary embolism Current Visit: Yes Status: Acute Qualifiers: Pulmonary embolism type: unspecified Chronicity: acute Acute cor pulmonale presence: without acute cor pulmonale Qualified Code(s): I26.99 - Other pulmonary embolism without acute cor pulmonale (3) COPD exacerbation Onset Date: 10/25/15 Current Visit: No Status: Acute (4) COPD (chronic obstructive pulmonary disease) Onset Date: 05/22/17 Current Visit: No Status: Chronic Qualifiers: COPD type: unspecified COPD Qualified Code(s): J44.9 - Chronic obstructive pulmonary disease, unspecified - Plan pulm consulted, on nasal cannula continue with breathing treatments, IV steroids, IV antibiotics lovenox 1 mg/kg q12h continue home BP medications tessalon perles and mucinex PRN Discharge Plan: Home Plan to discharge in: 48 Hours - Advance Directives Does patient have a Living Will: No Does patient have a Durable POA for Healthcare: No - Code Status/Comfort Care Code Status Assessed: Yes (full code) Critical Care: No Time Spent Managing Pts Care (In Minutes): 70 <Ever Rendon - Last Filed: 05/29/20 04:08> Date of Service: 05/29/20 Patient's chart is been reviewed. Patient with the pulmonary embolism and COPD. Patient will be admitted to the hospital for anti coagulation. <Danny Chery - Last Filed: 05/29/20 13:38>
[2020-05-29 05:11] VITALS: BMI 21.9
[2020-05-29 05:14] LABS: ALT/SGPT 52 U/L (12-78); AST/SGOT 49 U/L (15-37); Albumin 2.7 g/dL (3.4-5.0); Alkaline Phosphatase 115 U/L (45-117); BUN Blood Urea Nitrogen 8 mg/dL (7-18); Bicarbonate 31 mmol/L (21-32); Bilirubin Total 0.1 mg/dL (0.2-1.0); Glucose Level 149 mg/dL (74-106); Magnesium 1.7 mg/dL (1.8-2.4); Phosphorus 3.1 mg/dL (2.5-4.9); Potassium 3.9 mmol/L (3.5-5.1); Protein, Total 6.8 g/dL (6.4-8.2); Sodium Level 139 mmol/L (136-145)
[2020-05-29] MEDS ORDERED: MAGNESIUM SULFATE 1 gm IVPB 1 GM/100 ML BAG IV ONE ×2 (05:54→06:32)
[2020-05-29] MEDS ORDERED: POTASSIUM CL SA 10 MEQ TAB PO ONE ×2 (05:57→06:25)
[2020-05-29 06:27] LABS: Urine Bacteria 20-50 /HPF (<20); Urine RBC <5 /HPF (NONE SEEN)
[2020-05-29] MEDS: IPRATROPIUM BROM 0.5MG/2.5ML NEB SCH ×3 (08:00→19:55)
[2020-05-29] MEDS: ALBUTEROL 2.5 MG/3 ML NEB SOL NEB SCH ×3 (08:00→19:55)
[2020-05-29] MEDS ORDERED: ALBUTEROL 2.5 MG/3 ML NEB SOL ONE (08:17)
[2020-05-29] MEDS ORDERED: IPRATROPIUM BROM 0.5MG/2.5ML ONE (08:17)
[2020-05-29] MEDS: GUAIFENESIN 600 MG SA TAB PO SCH ×2 (09:00→20:50)
[2020-05-29] MEDS ORDERED: PNEUMOCOCCAL VACCINE 0.5 ML IMVAC ONE (09:00)
[2020-05-29] MEDS: METHYLPREDNISOLONE 125 MG INJ IV SCH ×3 (09:30→17:48)
[2020-05-29] MEDS: BENZONATATE 100 MG CAP PO PRN ×2 (10:02→20:43)
[2020-05-29] MEDS: ACETAMINOPHEN 500 MG TAB PO PRN (10:04)
[2020-05-29] MEDS ORDERED: BENZONATATE 100 MG CAP PO ONE (10:16)
--- NOTE | 2020-05-29 12:00 | RAD REPORT ---
EXAM DESCRIPTION: RAD - Chest Single View - 05/29/2020 12:39 am CLINICAL HISTORY: COPD Chest pain. COMPARISON: Chest Single View dated 11/10/2019; Chest Pa And Lat (2 Views) dated 10/15/2019; Chest Pa A nd Lat (2 Views) dated 03/06/2019; Chest Pa And Lat (2 Views) dated 01/22/2019; Chest For Pe Angio coco ed 05/29/2020 FINDINGS: Portable technique limits examination quality. Advanced emphysema is present with ill-defined cavitary opacity in the right upper lobe. Varying size tiny areas of nodularity also seen in both lungs. The heart is normal in size. No displaced fracture s.
--- NOTE | 2020-05-29 13:41 | P.PN ---
Subjective Date of Service: 05/29/20 Patient feeling better but having pain. History of chronic substance use. Continue with current plan of care at this time. Review of Systems 10-point ROS is otherwise unremarkable Physical Examination - Vital Signs Temperature: 97.2 F Blood Pressure: 119/73 Pulse: 94 Respirations: 18 Pulse Ox (%): 98 - Physical Exam General: Alert, In no apparent distress HEENT: Atraumatic, PERRLA, EOMI Neck: Supple, JVD not distended Respiratory: Clear to auscultation bilaterally, Normal air movement Cardiovascular: Regular rate/rhythm, Normal S1 S2 Gastrointestinal: Normal bowel sounds, No tenderness Musculoskeletal: No tenderness Integumentary: No rashes Neurological: Normal speech, Normal tone, Normal affect Lymphatics: No axilla or inguinal lymphadenopathy - Studies Laboratory Data (last 24 hrs) 05/29/20 04:45: Sodium 139, Potassium 3.9, BUN 8, Creatinine 0.53 L, Glucose 149 H, Phosphorus 3.1, Magnesium 1.7 L, Total Bilirubin 0.1 L, AST 49 H, ALT 52, Alkaline Phosphatase 115 05/29/20 00:20: PT 10.6, INR 0.92, APTT 32.4 05/29/20 00:20: WBC 9.20, Hgb 11.2 L, Hct 34.4 L, Plt Count 279 05/29/20 00:20: Sodium 140, Potassium 3.9, BUN 10, Creatinine 0.60, Glucose 126 H, Total Bilirubin 0.1 L, AST 70 H, ALT 58, Alkaline Phosphatase 129 H, Amylase 49, Lipase 62 L Medications List Reviewed: Yes Assessment & Plan - Problems (Diagnosis) (1) Acute bronchitis with COPD Status: Acute (2) Pulmonary embolism Status: Acute (3) History of MAC infection Status: Chronic - Plan Plan: 1. Continue with anticoagulation 2. Continue with IV hydration 3. Monitor labs closely 4. GI and DVT prophylaxis Discharge Plan: Home Plan to discharge in: Greater than 2 days - Advance Directives Does patient have a Living Will: No Does patient have a Durable POA for Healthcare: No - Code Status/Comfort Care Code Status Assessed: Yes Code Status: Full Code Critical Care: No Time Spent Managing PTS Care (In Minutes): 35
[2020-05-29] MEDS: ONDANSETRON 4 MG/2 ML VIAL IV PRN ×2 (13:47→20:43)
[2020-05-29] MEDS: HYDROMORPHONE HCL 0.5 MG/0.5 ML INJ IV PRN ×2 (13:47→20:43)
[2020-05-29] MEDS ORDERED: ENOXAPARIN 60 MG/0.6 ML SQ SCH ×2 (16:00)
--- NOTE | 2020-05-29 18:49 | RAD REPORT ---
EXAM DESCRIPTION: ADDENDUM #1 THIS REPORT CONTAINS FINDINGS THAT MAY BE CRITICAL TO PATIENT CARE: The findings were verbally discus sed via telephone conference with Dr. Rusty Dupont by Dr. Asif Orr on 05/29/2020 2:36 AM CDT .The results were acknowledged and understood. Electronically signed by: Asif Orr MD 05/29/2020 4:18 AM CDT End of Addendum EXAM: CT Angiography Chest With Intravenous Contrast CLINICAL HISTORY: The patient is 59 years old and is Female; Cough;SOB TECHNIQUE: Axial computed tomographic angiography images of the chest with intravenous contrast. S agittal and coronal reformatted images were created and reviewed. This CT exam was performed using one or more of the following dose reduction techniques: automated exposure control, adjustment of t he mA and/or kV according to patient size, and/or use of iterative reconstruction technique. MIP re constructed images were created and reviewed. COMPARISON: No relevant prior studies available. FINDINGS: Pulmonary arteries: Tiny filling defect within the pulmonary arterial branches of the ri ght lower lobe. Aorta: No acute findings. No thoracic aortic aneurysm. Lungs: There is cavitary consolidation in the right upper lobe with scattered areas of calcificat ion and scarring. There are a few scattered small areas of consolidation with calcification and scarr ing in the left upper lobe. There are numerous small nodular opacities throughout the lungs bilaterally. Background of emphysematous changes in the lungs. Pleural space: Unremarkable. No significant effusion. No pneumothorax. Heart: Unremarkable. No cardiomegaly. No significant pericardial effusion. No evidence of R V dysfunction. Mediastinum: There are a few prominent lymph nodes in the mediastinum. Bones/joints: No acute fracture. No dislocation. Soft tissues: Unremarkable. Lymph nodes: Unremarkable. No enlarged lymph nodes. IMPRESSION: 1. Tiny filling defect within the pulmonary arterial branches of the right lower lobe. Finding is concerning for pulmonary embolism. However, given this is an isolated finding, there is a possibly it represents artifact. 2. There is cavitary consolidation in the right upper lobe with scattered areas of calcification an d scarring. There are a few scattered small areas of consolidation with calcification and scarring in the left upper lobe. Findings are suggestive of chronic infection. 3. There are numerous small nodular opacities throughout the lungs bilaterally. Findings are sugg estive of an infectious etiology, but neoplasm is not entirely excluded. 4. There are a few prominent lymph nodes in the mediastinum. Electronically signed by: Asif Orr MD 05/29/2020 2:28 AM CDT Due to temporary technical issues with the PACS/Fluency reporting system, reports are being signed by the in house radiologists without review as a courtesy to insure prompt reporting. The interpreting radiologist is fully responsible for the content of the report.
[2020-05-29] MEDS: APIXABAN 5 MG TABLET PO SCH (20:43)
[2020-05-30] MEDS: METHYLPREDNISOLONE 125 MG INJ IV SCH ×4 (01:01→17:31)
[2020-05-30] MEDS: IPRATROPIUM BROM 0.5MG/2.5ML NEB SCH ×4 (02:00→20:00)
[2020-05-30] MEDS: ALBUTEROL 2.5 MG/3 ML NEB SOL NEB SCH ×4 (02:00→20:00)
[2020-05-30 02:07] VITALS: O2SAT 98
[2020-05-30 05:44] LABS: ALT/SGPT 41 U/L (12-78); AST/SGOT 21 U/L (15-37); Albumin 2.8 g/dL (3.4-5.0); Alkaline Phosphatase 103 U/L (45-117); BUN Blood Urea Nitrogen 13 mg/dL (7-18); Bicarbonate 33 mmol/L (21-32); Bilirubin Total 0.1 mg/dL (0.2-1.0); Glucose Level 132 mg/dL (74-106); Magnesium 2.2 mg/dL (1.8-2.4); Phosphorus 2.5 mg/dL (2.5-4.9); Potassium 4.4 mmol/L (3.5-5.1); Sodium Level 139 mmol/L (136-145)
[2020-05-30] MEDS ORDERED: AZITHROMYCIN IV 500 MG in NA CHLORIDE 0.9% 250 ML IVPB ONE (06:00)
[2020-05-30] MEDS ORDERED: CEFTRIAXONE 1 GM/NS 50 ML 1 GM/50 ML BAG IV SCH (06:00)
[2020-05-30] MEDS: APIXABAN 5 MG TABLET PO SCH ×2 (08:25→17:32)
[2020-05-30] MEDS: GUAIFENESIN 600 MG SA TAB PO SCH (08:26)
[2020-05-30] MEDS: BENZONATATE 100 MG CAP PO PRN (08:30)
[2020-05-30] MEDS ORDERED: CEFTRIAXONE/SWI 1gm 1 GM/10 ML SYR IV SCH (09:00)
[2020-05-30] MEDS: HYDROMORPHONE HCL 0.5 MG/0.5 ML INJ IV PRN (09:21)
[2020-05-30] MEDS: ONDANSETRON 4 MG/2 ML VIAL IV PRN (09:26)
[2020-05-30] MEDS: ACETAMINOPHEN 500 MG TAB PO PRN (18:09)
[2020-05-30 19:17] LABS: Hematocrit 32.6 % (36.0-45.0)
--- NOTE | 2020-05-31 10:52 | EKG ---
Test Date: 2020-05-29 Test Time: 00:16:46 Core Shaper Sides: BLAINE MEASUREMENT RESULTS: Intervals: Rate: 113 WV: 166 QRSD: 72 QT: 322 QTc: 441 Hamilton: P: 84 WV: 166 QRS: -47 T: 79 INTERPRETIVE STATEMENTS: Sinus tachycardia Right atrial enlargement Pulmonary disease pattern Left anterior fascicular block Possible Inferior infarct, age undetermined Abnormal ECG Compared to ECG 11/10/2019 00:09:08 Atrial abnormality now present Left anterior fascicular block now present Myocardial infarct finding now present Sinus rhythm no longer present Electronically Signed On 05-31-20 10:47:10 CDT by Jesus Bryan
--- NOTE | 2020-06-14 17:36 | P.DS ---
Discharge Date: 05/30/20 Disposition: TRANSFER TO SNF - MEDICAL Discharge Condition: GOOD Reason for Admission: copd exacerbation, PE - Problems (1) Acute bronchitis with COPD Status: Acute (2) Pulmonary embolism Status: Acute (3) History of MAC infection Status: Chronic Brief History of Present Illness: Ms. Correia is a 59 yo F with HTN and COPD here today with 2 days of increased yellow sputum production, SOB, cough, pleuritic pain and fatigue. She denies night sweats, chills, nausea, vomiting, wheezing. CTPE showed tiny filling defect within the pulmonary arterial branches of the right lower lobe concerning for pulmonary embolism. Cavitary consolidation in right upper lobe with scattered areas of calcification and scarring with a few small areas of consolidation with calcification and scarring in the left upper lobe suggestive of chronic infection. Numerous small nodular opacities through lungs bilaterally suggestive of infectious etiology but neoplasm not entirely excluded. A few prominent lymph nodes in mediastinum. Hospital Course: Patient's imaging studies revealed pulmonary embolism. Patient will need to be on anticoagulation going forward. Patient will need outpatient followup with pulmonary. At this time, patient is stable for discharge home. Patient will need continued anticoagulation for 6 months. Vital Signs/Physical Exam: Temp Pulse Resp BP Pulse Ox 97.3 F 86 20 107/64 99 05/30/20 16:00 05/30/20 16:00 05/30/20 16:00 05/30/20 16:00 05/30/20 16:00 General: Alert, In no apparent distress, Oriented x3 Laboratory Data at Discharge: WBC 9.20 K/uL (4.3-10.9) 05/29/20 00:20 Hgb 10.4 g/dL (12.0-15.0) L 05/30/20 18:52 Hct 32.6 % (36.0-45.0) L 05/30/20 18:52 Plt Count 279 K/uL (152-406) 05/29/20 00:20 PT 10.6 SECONDS (9.5-12.5) 05/29/20 00:20 INR 0.92 05/29/20 00:20 APTT 32.4 SECONDS (24.3-36.9) 05/29/20 00:20 Sodium 139 mmol/L (136-145) 05/30/20 05:04 Potassium 4.4 mmol/L (3.5-5.1) 05/30/20 05:04 BUN 13 mg/dL (7-18) 05/30/20 05:04 Creatinine 0.60 mg/dL (0.55-1.3) 05/30/20 05:04 Glucose 132 mg/dL (74-106) H 05/30/20 05:04 Phosphorus 2.5 mg/dL (2.5-4.9) 05/30/20 05:04 Magnesium 2.2 mg/dL (1.8-2.4) D 05/30/20 05:04 Total Bilirubin 0.1 mg/dL (0.2-1.0) L 05/30/20 05:04 AST 21 U/L (15-37) 05/30/20 05:04 ALT 41 U/L (12-78) 05/30/20 05:04 Alkaline Phosphatase 103 U/L (45-117) 05/30/20 05:04 Amylase 49 U/L (25-115) 05/29/20 00:20 Lipase 62 U/L (73-393) L 05/29/20 00:20 Home Medications: Fluticasone Propion/Salmeterol [Fluticasone-Salmeterol 250-50] 1 puff BID 05/29/20 Gabapentin 400 mg PO BID 05/29/20 Metoprolol Tartrate [Lopressor*] 12.5 mg PO DAILY 05/29/20 Apixaban [Eliquis] 5 mg PO BID #60 tablet 05/30/20 Benzonatate [Tessalon Perle*] 100 mg PO TID PRN #30 cap 05/30/20 Pantoprazole [Protonix Tab] 40 mg PO DAILY #30 tab 05/30/20 predniSONE [Prednisone*] 20 mg PO BID #20 tab 05/30/20 New Medications: Apixaban [Eliquis] 5 mg PO BID #60 tablet predniSONE [Prednisone*] 20 mg PO BID #20 tab Pantoprazole [Protonix Tab] 40 mg PO DAILY #30 tab Benzonatate [Tessalon Perle*] 100 mg PO TID PRN #30 cap PRN Reason: Cough Physician Discharge Instructions: PROBLEM: COPD Exacerbation, Pulmonary embolism GOAL: Clear understanding of disease process INSTRUCTIONS: Diet: heart healthy Activity: Fall precautions IF ANY SIGNS OR SYMPTOMS OF BLEEDING, STOP ELIQUIS AND RETURN TO THE EMERGENCY ROOM. OK TO DC IV AND DC HOME FOLLOW-UP WITH PCP IN 1-2 WEEKS CALL ME AT [phone] IF ANY QUESTIONS REGARDING HOSPITAL STAY RETURN TO THE ER IF SYMPTOMS WORSENS FOLLOW-UP WITH PULMONARY IN 1-2 WEEKS Diet: AHA Activity: Fall precautions Followup: Richard Crystal MD [ACTIVE - CAN ADMIT] - (Call to make an appointment. ) Unknown,U [Primary Care Provider] - Time spent managing pt's care (in minutes): 35
[2020-06-14 17:37] VITALS: BP 119/73; TEMP 97.2
== END 2020-05-30 20:09 | disposition home or self-care (01) | DRG 190 ==
LOC: ER 00:13 → ERHOLD 04:57 → 2ND 11:43
PROVIDERS: ADMIT Hospitalist; ATTEND Hospitalist
DX: J44.1 Chronic obstructive pulmonary disease with (acute) exacerbation (principal); I26.99 Other pulmonary embolism without acute cor pulmonale; J44.0 Chronic obstructive pulmonary disease with (acute) lower respiratory infection; J20.9 Acute bronchitis, unspecified; I10 Essential (primary) hypertension; Z88.5 Allergy status to narcotic agent; Z79.899 Other long term (current) drug therapy; Z90.710 Acquired absence of both cervix and uterus; Z98.51 Tubal ligation status; Z87.891 Personal history of nicotine dependence; Z20.822 Contact with and (suspected) exposure to COVID-19
CPT/HCPCS: 0240U; 36415; 71045; 71275; 80048; 80053; 80076; 81003; 81015; 82150; 82550; 82553; 82947; 83605; 83690; 83735; 84100; 84132; 84145; 84484; 85014; 85018; 85025; 85610; 85730; 87040; 87070; 87086; 87088; 87205; 93005; 94640; 94760; 96372; 96374; 96375; 99285; J0456; J0696; J1170; J1650; J2405; J2550; J2930; J3475; J7030; J7050; Q9967

== ENCOUNTER 2020-06-08 19:15 | Emergency (ER) | payer OTHER ==
--- OUTSIDE RECORDS SUMMARY | 2020-06-08 19:19 | XMS REPORT | Continuity of Care Document ---
:1960 Author Organization [facility] t Address [address] [place] [address] Care Team Providers Name Role Phone Ganesh Mcfarland Attending Clinician [phone] Mikaela CHANG S Attending Clinician Problems Condition Condition Condition Status [...] bedtime [facility] - 00:00: Memoria 00 l [facility] ent Clinics Incruse Incruse Yes Artur [address] [facility] Breo Kiarrao Yes Artur [address] [facility] Ell[facility]a [facility] Hydrocodone Hydrocodone Yes Artur [address] Bitartrate Bitartrate Rekhi [facility] Procedures This patient has no known procedures. Encounters Start End Encounter Admission Attending Care Care Encounter Source Date/Time Date/Time Type Type Clinicians Facility Department ID 2020-06-03 2020-06-03 Outpatient Bruna Shayla PRIV PRIV [id number] 00:00:00 00:00:00 Ganesh [id number] 2020-05-11 2020-05-11 Office ELENI Al [id number] 12:47:23 13:02:23 Visit [facility] [id number] Surgical [id number] Special [id number] [address] 2019-08-19 2019-08-19 [facility] [id number] [facility] [address] 13:47:00 13:47:00 t [facility] 2019-03-18 2019-03-18 Inpatient E [facility] 20:07:00 14:57:00 2018-02-06 2018-02-06 [facility] [id number] [address] 15:15:00 15:15:00 t Women Womens [facility] 2018-01-03 2018-01-03 [facility] [id number] 09:30:00 09:30:00 t [facility] 2017-09-13 2017-09-13 [facility] [id number] 08:00:00 08:00:00 t [facility] 2017-09-06 2017-09-06 Outpatient Richardson Mackey [id number] [facility] [address] 10:00:00 10:00:00 t Bone [facility] and [facility] - and [facility] Joint [facility] a [facility] ent [facility] Results This patient has no known results.
--- NOTE | 2020-06-08 20:06 | RAD REPORT ---
[facility] 7[facility]57 pm CLINICAL HISTORY: Chest pain COMPARISON: May 29, 2020 FINDINGS: Right lung cavitary lesions and bilateral reticulonodular opacities without significant ch arnulfo. Right pleural thickening without significant changed Lungs are hyperaerated. Heart is normal size
[2020-06-08] MEDS ORDERED: METHYLPREDNISOLONE 125 MG INJ ONE (20:47)
[2020-06-08] MEDS ORDERED: LEVALBUTEROL 1.25 MG/3 ML NEB ONE (20:47)
[2020-06-08 21:01] LABS: Basophils % 0.4 % (0-1.3); Hematocrit 34.7 % (36.0-45.0); MPV 6.7 fL (7.6-11.3)
[2020-06-08 21:04] LABS: Protime INR 1.04
[2020-06-08 21:22] LABS: BUN Blood Urea Nitrogen 14 mg/dL (7-18); Bicarbonate 32 mmol/L (21-32); Glucose Level 174 mg/dL (74-106); NT PRO-BNP 159 pg/mL (<125); Potassium 3.8 mmol/L (3.5-5.1); Sodium Level 141 mmol/L (136-145); Troponin (Emerg Dept Use Only) < 0.02 ng/mL (0.0-0.045)
[2020-06-08 21:30] LABS: Blood Morphology Comment NOT SEEN (NOT SEEN); Platelet Estimate INCR; White Blood Cell Scan OK (OK)
[2020-06-08] MEDS ORDERED: HYDROMORPHONE HCL 1 MG/ML INJ ONE (21:37)
[2020-06-08] MEDS ORDERED: PROMETHAZINE INJ 25 MG/ML AMP ONE (21:43)
[2020-06-08] MEDS ORDERED: NA CHLORIDE 0.9% 1,000 ML ONE (22:33)
[2020-06-08] MEDS ORDERED: AZITHROMYCIN 250 MG TAB ONE (22:33)
--- NOTE | 2020-06-08 23:22 | EDPHYS ---
Physician Documentation [facility] Name: Kallie Correia Age: 59 yrs Sex: Female : 1960 Arrival Date: 06/08/2020 Time: 19:26 Bed 13 Private MD: ED Physician Emir England HPI: 06/08 19:36 This 59 yrs old Female presents to ER via EMS with complaints of Chest Pain. rn 19:36 The patient or guardian reports chest pain that is located primarily in the substernal rn area. Onset: this morning. The pain does not radiate. Associated signs and symptoms: Pertinent positives: cough, palpitations, shortness of breath, Pertinent negatives: abdominal pain, diaphoresis. The chest pain is described as a pressure, sharp. Duration: The patient or guardian reports multiple episodes, that are intermittent. Modifying factors: The symptoms are alleviated by nothing. the symptoms are aggravated by deep breath. Severity of pain: At its worst the pain was moderate in the emergency department the pain is unchanged. The patient has experienced a previous episode. Reports diagnosed with pneumonia and PE last week, taking eliquis, was doing ok, then this morning began with chest pain, substernal, non-radiating, assoc with cough and sob, + palpitations. No trauma. + mild hemoptysis. . Historical: - Allergies: 19:35 Morphine; ca1 - PMHx: 19:35 "frozen shoulder"; COPD; Emphysema; Non-tuberculin Mycoplasma; ca1 - PSHx: 19:35 Hysterectomy; Tonsillectomy; ca1 - Immunization history:: Pneumococcal vaccine is up to date. - Social history:: Smoking status: Patient denies any tobacco usage or history of. - Family history:: not pertinent. - Hospitalizations: : The patient was recently seen at [facility]. ROS: 19:36 Constitutional: Negative for fever, chills, and weight loss, Eyes: Negative for injury, rn pain, redness, and discharge, Neck: Negative for injury, pain, and swelling, Cardiovascular: Negative for edema Respiratory: + sob and cough Abdomen/GI: Negative for abdominal pain, nausea, vomiting, diarrhea, and constipation, Back: Negative for injury and pain, MS/Extremity: Negative for injury and deformity, Skin: Negative for injury, rash, and discoloration, Neuro: Negative for headache, weakness, numbness, tingling, and seizure. Exam: 19:36 Constitutional: This is a well developed, well nourished patient who is awake, alert, rn sitting upright and mild tachypnea Head/Face: Normocephalic, atraumatic. ENT: no stridor Cardiovascular: Tachycardic, irregular Respiratory: + mild tachypnea, poor inspiratory airflow bilaterally Abdomen/GI: soft, non-tender Skin: Warm, dry, no cyanosis MS/ Extremity: Pulses equal, no cyanosis. Neurovascular intact. Full, normal range of motion. Equal circumference. Neuro: Awake and alert, GCS 15, oriented to person, place, time, and situation. Cranial nerves II-XII grossly intact. Motor strength 5/5 in all extremities. Sensory grossly intact. Vital Signs: 19:27 BP 139 / 74; Pulse 136; Resp 20; Temp 97.6; Pulse Ox 99% on 4 lpm NC; Weight 54.43 kg ca1 (R); Height 5 ft. 2 in. (157.48 cm) (R); Pain 9/10; 22:00 BP 106 / 76; Pulse 109; Resp 16; Pulse Ox 99% ; jm 22:12 Pulse 108; rn 22:53 Pulse 97; rn 06/09 00:22 BP 144 / 94; Pulse 103; Resp 16; Pulse Ox 100% on 2 lpm NC; jm8 06/08 19:27 Body Mass Index 21.95 (54.43 kg, 157.48 cm) ca1 MDM: 06/08 19:36 Patient medically screened. rn 22:53 Differential diagnosis: acute myocardial infarction, anxiety, costochondritis, rn gastroesophageal reflux disease (GERD), pericarditis, pleurisy, pneumonia, pneumothorax. Data reviewed: vital signs, nurses notes, lab test result(s), EKG, radiologic studies, and as a result, I will discharge patient. 23:20 Counseling: I had a detailed discussion with the patient and/or guardian regarding: the rn historical points, exam findings, and any diagnostic results supporting the discharge/admit diagnosis, lab results, radiology results, the need for outpatient follow up, to return to the emergency department if symptoms worsen or persist or if there are any questions or concerns that arise at home. Special discussion: I discussed with the patient/guardian in detail that at this point there is no indication for admission to the hospital. It is understood, however, that if the symptoms persist or worsen the patient needs to return immediately for re-evaluation. ED course: Pt muchimproved, no oxygen requirement, HR improved, CXR without pneumonia or pneumothorax, already on eliquis, trop neg x 2, will dc home with abx for COPD exacerbation, already taking steroids as well.. 06/08 19:31 Order name: Basic Metabolic Panel; Complete Time: 21:46 rn 06/08 19:31 Order name: CBC with Diff; Complete Time: 21:46 rn 06/08 19:31 Order name: Magnesium; Complete Time: 21:46 rn 06/08 19:31 Order name: NT PRO-BNP; Complete Time: : rn 06/08 19:31 Order name: PT-INR; Complete Time: :46 rn 06/08 19:31 Order name: Troponin (emerg Dept Use Only); Complete Time: 21:46 rn 06/08 19:31 Order name: XRAY Chest (1 view); Complete Time: 20:10 rn 06/08 19:31 Order name: Procalcitonin; Complete Time: 23:20 rn 06/08 19:31 Order name: Blood Culture Adult (2) rn 06/08 21:30 Order name: CBC Smear Scan; Complete Time: 21:46 EDLA 06/08 22:14 Order name: Troponin (emerg Dept Use Only); Complete Time: 23:20 rn 06/08 19:31 Order name: EKG; Complete Time: 19:32 rn 06/08 19:31 Order name: Cardiac monitoring; Complete Time: 21:13 rn 06/08 19:31 Order name: EKG - Nurse/Tech; Complete Time: 21: rn 06/08 19:31 Order name: IV Saline Lock; Complete Time: 21: rn 06/08 19:31 Order name: Labs collected and sent; Complete Time: 21: rn 06/08 19:31 Order name: O2 Per Protocol; Complete Time: 21: rn 06/08 19:31 Order name: O2 Sat Monitoring; Complete Time: 21:13 rn Administered Medications: Discontinued: NS 0.9% 1000 ml IV at 1000 ml once 21:12 Drug: Xopenex (levalbuterol) (3) 1.25 mg Route: Inhalation; jm8 22:18 Follow up: Response: No adverse reaction jm8 21:13 Drug: SOLU-Medrol (methylPrednisoLONE) 125 mg Route: IVP; Site: right antecubital; jm8 22:19 Follow up: Response: No adverse reaction 8 21:30 Drug: Dilaudid (HYDROmorphone) 1 mg Route: IVP; Site: right antecubital; jm8 22:19 Follow up: Response: No adverse reaction; Pain is decreased jm8 21:30 Drug: Phenergan (promethazine) 12.5 mg Route: IVP; Site: right antecubital; jm8 22:20 Follow up: Response: No adverse reaction jm8 22:18 Drug: NS 0.9% 1000 ml Route: IV; Rate: 1000 ml; Site: right antecubital; jm8 22:18 Drug: Zithromax (azithromycin) 500 mg Route: PO; jm8 06/09 00:24 Follow up: Response: No adverse reaction 8 Disposition: 06/08/20 23:22 Discharged to Home. Impression: Chronic obstructive pulmonary disease with (acute) exacerbation, Chest pain, unspecified. - Condition is Stable. - Discharge Instructions: Nonspecific Chest Pain, Chronic Obstructive Pulmonary Disease Exacerbation. - Prescriptions for Zithromax Z- Marek 250 mg Oral Tablet - take 1 tablet by ORAL route as directed for 5 days Day 1 - take two (2) tablets one time. Day 2, 3, 4 , 5 take one (1) tablet once daily.; 6 tablet. Tylenol- Codeine #3 300-30 mg Oral Tablet - take 1 tablet by ORAL route every 4-6 hours As needed; 15 tablet. - Medication Reconciliation Form, Thank You Letter, Antibiotic Education, Prescription Opioid Use form. - Follow up: Private Physician; When: As needed; Reason: Recheck today's complaints, Re-evaluation by your physician. - Problem is new. - Symptoms have improved. Signatures: Dispatcher [employer] EDMS Emir England MD MD rn Louisa, JEANETTE Darby RN Bryan Mejia RN RN jm8 Corrections: (The following items were deleted from the chart) 00:28 06/08 23:22 06/08/2020 23:22 Discharged to Home. Impression: Chronic obstructive jm8 pulmonary disease with (acute) exacerbation; Chest pain, unspecified. Condition is Stable. Forms are Medication Reconciliation Form, Thank You Letter, Antibiotic Education, Prescription Opioid Use. Follow up: Private Physician; When: As needed; Reason: Recheck today's complaints, Re-evaluation by your physician. Problem is new. Symptoms have improved. rn
--- NOTE | 2020-06-08 23:22 | ER ---
Nurse's Notes [facility] Name: Kallie Correia Age: 59 yrs Sex: Female : 1960 Arrival Date: 06/08/2020 Time: 19:26 Bed 13 Private MD: Diagnosis: Chronic obstructive pulmonary disease with (acute) exacerbation;Chest pain, unspecified Presentation: 06/08 19:27 Chief complaint: EMS states: Chest pain, pressure since this morning. Was discharged ca1 last week from here for pneumonia and PE. ASA x 2 given. Nitro SL x 1 given. BGL 134. Sinus Tach on 12L. IV initiated at RAC 20G. Coronavirus screen: Client denies travel out of the [place] in the last 14 days. shortness of breath, Client presents with at least one sign or symptom that may indicate coronavirus-19. Standard/surgical mask placed on the client. Provider contacted for isolation considerations. Ebola Screen: Patient negative for fever greater than or equal to 101.5 degrees Fahrenheit, and additional compatible Ebola Virus Disease symptoms Patient denies exposure to infectious person. Patient denies travel to an Ebola-affected area in the 21 days before illness onset. No symptoms or risks identified at this time. Initial Sepsis Screen: Does the patient meet any 2 criteria? No. Patient's initial sepsis screen is negative. Initial Sepsis Screen: Does the patient have a suspected source of infection? No. Patient's initial sepsis screen is negative. Risk Assessment: Do you want to hurt yourself or someone else? Patient reports no desire to harm self or others. Onset of symptoms was June 08, 2020. 19:27 Method Of Arrival: EMS: [facility] ca1 19:27 Acuity: BENJI 2 ca1 Historical: - Allergies: 19:35 Morphine; ca1 - PMHx: 19:35 "frozen shoulder"; COPD; Emphysema; Non-tuberculin Mycoplasma; ca1 - PSHx: 19:35 Hysterectomy; Tonsillectomy; ca1 - Immunization history:: Pneumococcal vaccine is up to date. - Social history:: Smoking status: Patient denies any tobacco usage or history of. - Family history:: not pertinent. - Hospitalizations: : The patient was recently seen at [facility]. Screenin:38 Abuse screen: Denies threats or abuse. Denies injuries from another. Nutritional jm8 screening: No deficits noted. Tuberculosis screening: No symptoms or risk factors identified. Fall Risk None identified. Assessment: 21:32 General: Appears distressed, uncomfortable, Behavior is anxious, restless. Pain: jm8 Complains of pain in chest Pain does not radiate. Pain currently is 10 out of 10 on a pain scale. Pain began today Also complains of no other associated symptoms. Neuro: No deficits noted. Cardiovascular: Reports chest pain, palpitations, shortness of breath, Heart tones present Rhythm is sinus tachycardia Chest pain is described as "worst pain of my life". Respiratory: Reports shortness of breath. GI: No deficits noted. : No deficits noted. EENT: No deficits noted. Vital Signs: 19:27 BP 139 / 74; Pulse 136; Resp 20; Temp 97.6; Pulse Ox 99% on 4 lpm NC; Weight 54.43 kg ca1 (R); Height 5 ft. 2 in. (157.48 cm) (R); Pain 9/10; 22:00 BP 106 / 76; Pulse 109; Resp 16; Pulse Ox 99% ; jm8 22:12 Pulse 108; rn 22:53 Pulse 97; rn 06/09 00:22 BP 144 / 94; Pulse 103; Resp 16; Pulse Ox 100% on 2 lpm NC; jm8 06/08 19:27 Body Mass Index 21.95 (54.43 kg, 157.48 cm) ca1 ED Course: 06/08 19:26 Patient arrived in ED. ca1 19:29 Emir England MD is Attending Physician. rn 19:33 Triage completed. ca1 19:35 Arm band placed on right wrist. ca1 19:57 XRAY Chest (1 view) In Process Unspecified. EDMS 21:38 No provider procedures requiring assistance completed. Maintain EMS IV. Dressing jm8 intact. Good blood return noted. Site clean \\T\\ dry. Gauge \\T\\ site: 20 g right AC. Oxygen administration via nasal cannula \\T\\ 3L/min. 21:39 Patient has correct armband on for positive identification. Bed in low position. Call jm8 light in reach. Side rails up X2. night monitor on. Pulse ox on. NIBP on. 06/09 00:26 IV discontinued, intact, bleeding controlled, No redness/swelling at site. jm8 Administered Medications: Discontinued: NS 0.9% 1000 ml IV at 1000 ml once 06/08 21:12 Drug: Xopenex (levalbuterol) (3) 1.25 mg Route: Inhalation; jm8 22:18 Follow up: Response: No adverse reaction jm8 21:13 Drug: SOLU-Medrol (methylPrednisoLONE) 125 mg Route: IVP; Site: right antecubital; jm8 22:19 Follow up: Response: No adverse reaction 8 21:30 Drug: Dilaudid (HYDROmorphone) 1 mg Route: IVP; Site: right antecubital; jm8 22:19 Follow up: Response: No adverse reaction; Pain is decreased jm8 21:30 Drug: Phenergan (promethazine) 12.5 mg Route: IVP; Site: right antecubital; jm8 22:20 Follow up: Response: No adverse reaction jm8 22:18 Drug: NS 0.9% 1000 ml Route: IV; Rate: 1000 ml; Site: right antecubital; jm8 22:18 Drug: Zithromax (azithromycin) 500 mg Route: PO; 8 06/09 00:24 Follow up: Response: No adverse reaction 8 Outcome: 06/08 23:22 Discharge ordered by . rn 06/09 00:26 Discharged to home jm8 Condition: good Discharge instructions given to patient, family, Instructed on discharge instructions, follow up and referral plans. medication usage, Demonstrated understanding of instructions, follow-up care, medications. 00:28 Patient left the ED. jm8 Signatures: Dispatcher [employer] EDMS Emir England MD MD rn Acob, Cheryl, RN RN ca1 Malcaba, Joseph, RN RN jm8
[2020-06-09 00:36] VITALS: TEMP 97.6
[2020-06-09 00:42] VITALS: BP 144/94; O2SAT 100
--- NOTE | 2020-06-10 07:22 | EKG ---
Test Date: 2020-06-08 Test Time: 21:03:55 Marker Hand: JEANETTE MEASUREMENT RESULTS: Intervals: Rate: 141 NC: 138 QRSD: 66 QT: 318 QTc: 487 [place]: P: 79 NC: 138 QRS: 73 T: 87 INTERPRETIVE STATEMENTS: Sinus tachycardia with frequent and consecutive premature ventricular complexes and fusion complexes Right atrial enlargement Nonspecific ST abnormality Abnormal ECG Compared to ECG 05/29/2020 00:16:46 Fusion complex(es) now present Ventricular premature complex(es) now present ST (T wave) deviation now present Left anterior fascicular block no longer present Myocardial infarct finding no longer present Electronically Signed On 06-10-20 07:18:25 CDT by Jesus Bryan
== END 2020-06-09 00:28 | disposition home or self-care (01) ==
LOC: ER 19:15
DX: J44.1 Chronic obstructive pulmonary disease with (acute) exacerbation (principal); Z88.5 Allergy status to narcotic agent
CPT/HCPCS: 93005; 87040 ×2; 85025; 80048; 36415; 83735; 85610; 84484 ×2; 84145; 83880; 71045; J2550; J1170; J7030; J2930; 96374; 96375; 99285

== ENCOUNTER 2020-08-02 12:07 | Emergency (ER) | payer OTHER ==
--- OUTSIDE RECORDS SUMMARY | 2020-08-02 12:10 | XMS REPORT | Continuity of Care Document ---
:1960 Author Organization [facility] t Address [address] [place] [address] Care Team Providers Name Role Phone Celia REID, Mili Attending Clinician Unavailable Mary Mckenna Attending Clinician Terrence ESQUIVEL Attending Clinician Ernestine ESQUIVEL, Mya Attending Clinician [place] ESQUIVEL C Attending Clinician Radiology Attending Clinician Unavailable Doctor Unassigned, Name Attending Clinician Unavailable Ganesh Mcfarland Attending Clinician [phone] Criss ESQUIVEL Attending Clinician Mikaela CHANG S Attending Clinician Terrence ESQUIVEL Admitting Clinician Problems Condition Condition Condition Status Onset [...] [facility] Breo Breo Yes Artur [address] [facility] Ellipta Ellipta Rekhi [facility] Hydrocodone Hydrocodone Yes Artur [address] [facility] Bitartrate Bitartrate [facility] Procedures This patient has no known procedures. Encounters Start End Encounter Admission Attending Care Care Encounter Source Date/Time Date/Time Type Type Clinicians Facility Department ID 2020-07-22 2020-07-22 Transition Nanda Yang [id number] 00:00:00 00:00:00 of Care Carlos Zhao [id number] [place] [id number] 2020-07-15 2020-07-21 [facility] Sarah Childs [id number] 18:18:00 19:03:00 Encounter Yenni Ocampo [id number] [place], [facility] [id number]. [id number] Davon Slade [id number] 2020-07-13 2020-07-13 [facility] Radiology [facility] [id number] 14:12:26 23:59:00 Encounter Tracey [id number] [place] [id number] [place] [id number] 2020-06-22 2020-06-22 Orders Doctor JASON [id number] 00:00:00 00:00:00 Only Unassigned, LUCILLE [id number] [place] [facility] [id number] 2020-06-14 2020-06-14 Transition Nanda Yang [id number] 00:00:00 00:00:00 of Care Carlos Zhao [id number] [place] [id number] 2020-06-03 2020-06-03 Outpatient Bruna, Shayla PRIV PRIV [id number] 00:00:00 00:00:00 Ganesh [id number] 2020-06-03 2020-06-03 Outpatient Bruna, Shayla PRIV PRIV [id number] 00:00:00 00:00:00 Ganesh [id number] 2020-05-12 2020-05-12 [facility] Rainerdamien IVY [id number] 14:29:00 23:59:00 Encounter Asif Malloy [id number] [facility] [id number] 2020-05-11 2020-05-11 Office Mikaela [facility] [id number] 12:47:23 15:00:26 Visit [facility] [id number] Surgical [id number] Specialti [id number] [place] 2019-08-19 2019-08-19 [facility] [id number] [facility] 13:47:00 13:47:00 [facility] 2019-03-18 2019-03-18 Inpatient E [facility] [id number] 20:07:00 14:57:00 2018-02-06 2018-02-06 Outpatient Richardson Mackey [id number] [facility] 15:15:00 15:15:00 t [facility] 2018-01-03 2018-01-03 Outpatient Richardson Mackey [id number] [facility] 09:30:00 09:30:00 t [place] 2017-09-13 2017-09-13 Outpatient Richardson Mackey [id number] [facility] 08:00:00 08:00:00 [facility] 2017-09-06 2017-09-06 Outpatient Richardson Mackey [id number] 10:00:00 10:00:00 [facility] Results This patient has no known results.
[2020-08-02] MEDS ORDERED: MEPERIDINE HCL 25 MG/ML SYR ONE ×3 (12:59→16:00)
[2020-08-02] MEDS ORDERED: dexAMETHasone 10 MG/ML VIAL ONE (12:59)
[2020-08-02] MEDS ORDERED: NA CHLORIDE 0.9% 1,000 ML ONE (13:00)
[2020-08-02 13:06] LABS: Absolute Lymphocytes (CBC) 1.8 K/uL (0.7-4.9); Basophils % 0.6 % (0-1.3); Hematocrit 33.2 % (36.0-45.0); Lymphocytes % 17.9 % (15.3-44.8); MPV 7.4 fL (7.6-11.3)
[2020-08-02] MEDS ORDERED: ONDANSETRON 4 MG/2 ML VIAL ONE (13:07)
[2020-08-02 13:23] LABS: BUN Blood Urea Nitrogen 13 mg/dL (7-18); Bicarbonate 38 mmol/L (21-32); Glucose Level 115 mg/dL (74-106); Potassium 3.9 mmol/L (3.5-5.1); Sodium Level 140 mmol/L (136-145)
--- NOTE | 2020-08-02 13:23 | RAD REPORT ---
EXAM DESCRIPTION: CT - Head Brain Wo Cont - 08/02/2020 12:59 pm CLINICAL HISTORY: HEADACHE, weakness COMPARISON: Head angio dated 08/02/2020 TECHNIQUE: Axial 5 mm thick images of the head were obtained without IV contrast. All CT scans are performed using dose optimization technique as appropriate and may include automated exposure control or mA/KV adjustment according to patient size. FINDINGS: No intracranial hemorrhage, mass, edema or shift of mid-line structures. No acute infarcti on changes seen. No abnormal extra-axial fluid collections. Ventricles are normal. Mastoid air cells and visualized portions of the paranasal sinuses are clear. No acute bony findings. IMPRESSION: Negative non-contrast CT head examination.
--- NOTE | 2020-08-02 13:27 | RAD REPORT ---
EXAM DESCRIPTION: CT - Head angio - 08/02/2020 1:00 pm CLINICAL HISTORY: HEADACHE TECHNIQUE: During dynamic enhancement using nonionic IV contrast, axial 1 millimeter thick images of the head were obtained. Sagittal and axial reconstruction images were generated using MIP technique and reviewed. All CT scans are performed using dose optimization technique as appropriate and may include automated exposure control or mA/KV adjustment according to patient size. FINDINGS: No aneurysm or vascular malformation identified. Major venous sinuses are patent. There is a large asymmetric central draining vein on the right is a normal variant. No cavernoma or venous angioma identified. No stenosis, named branch occlusion, vasculitis or other significant vascular finding identifiable. IMPRESSION: Negative CT angio head examination for acute or significant finding.
--- NOTE | 2020-08-02 14:45 | RAD REPORT ---
EXAM DESCRIPTION: RAD - Chest Single View - 08/02/2020 1:58 pm CLINICAL HISTORY: COPD;Chest pain COMPARISON: Portable June 08 TECHNIQUE: AP portable chest image was obtained 08/02/2020 1:58 pm . FINDINGS: Patient has very extensive pleural and parenchymal fibrotic changes in the apex and upper right lung field along with cavitation. Significant elevation of the right hilum noted. Extensive fibrotic lung changes elsewhere. Lower lung volume accentuates the pattern. No new mass or consolidation. Mild interstitial edema or infiltrate could potentially be masked by the lower lung vo lume and severity of chronic disease. Heart and vasculature are normal. No pneumothorax or pleural effusion. Diaphragm is flattened. No ac [place] bony abnormality seen. No acute aortic findings suspected. IMPRESSION: Advanced COPD changes matching prior study. No acute findings seen.
--- NOTE | 2020-08-02 15:26 | EDPHYS ---
Physician Documentation [facility] Name: Kallie Correia Age: 60 yrs Sex: Female : 1960 Arrival Date: 08/02/2020 Time: 12:08 Bed 8 Private MD: ED Physician Emir England HPI: 08/02 15:09 This 60 yrs old Female presents to ER via EMS with complaints of Headache, rn Chest Pain. 15:20 The patient complains of pain to the top of head and forehead. The patient describes rn the headache as aching. 15:21 Onset: The symptoms/episode began/occurred yesterday. Associated signs and symptoms: rn Pertinent positives: nausea, Pertinent negatives: altered mental status, fever, neck stiffness, rash, vision changes, vision loss. Severity of symptoms: At its worst the pain was moderate, in the emergency department the pain is unchanged. Headache History: The patient has had previous headaches and this one is different than previous episodes. The symptoms are alleviated by nothing. the symptoms are aggravated by nothing. The patient has experienced similar episodes in the past. The patient has been recently seen by a physician:. Reports headache that began last night, no trauma, reports recent admission for COPD, still coughing but doesn't feel like she did when got admitted. + hx of migraines but this feels worse. No fever. No focal neuro deficit.. Historical: - Allergies: 12:09 Morphine; sv - PMHx: 12:09 "frozen shoulder"; COPD; Emphysema; Non-tuberculin Mycoplasma; sv - PSHx: 12:09 Hysterectomy; Tonsillectomy; sv - Immunization history:: Adult Immunizations up to date. - Social history:: Smoking status: Patient/guardian denies using tobacco. - Family history:: not pertinent. - Hospitalizations: : No recent hospitalization is reported. ROS: 15:21 Constitutional: Negative for fever, chills, and weight loss, Eyes: Negative for injury, rn pain, redness, and discharge, Neck: Negative for injury, pain, and swelling, Cardiovascular: Negative for chest pain, palpitations, and edema, Respiratory: Negative for pleuritic chest pain Abdomen/GI: Negative for abdominal pain, nausea, vomiting, diarrhea, and constipation, Back: Negative for injury and pain, MS/Extremity: Negative for injury and deformity, Skin: Negative for injury, rash, and discoloration, Neuro: Negative for weakness, numbness, tingling, and seizure. Exam: 15:21 Constitutional: This is a well developed, well nourished patient who is awake, alert, rn appears uncomfortable Head/Face: Normocephalic, atraumatic. Eyes: Pupils equal round and reactive to light, extra-ocular motions intact. Lids and lashes normal. Conjunctiva and sclera are non-icteric and not injected. Cornea within normal limits. Periorbital areas with no swelling, redness, or edema. No temporal artery tenderness. Neck: Supple, full range of motion without nuchal rigidity, or vertebral point tenderness. No Meningismus. Cardiovascular: Regular rate and rhythm. No pulse deficits. Respiratory: No increased work of breathing, no retractions or nasal flaring. Abdomen/GI: soft, non-tender Skin: Warm, dry MS/ Extremity: Pulses equal, no cyanosis. Neuro: Awake and alert, GCS 15, oriented to person, place, time, and situation. Cranial nerves II-XII grossly intact. Motor strength 5/5 in all extremities. Sensory grossly intact. Cerebellar exam normal. Vital Signs: 12:08 Pulse 100; Resp 20; Temp 97.2; Pulse Ox 100% on 3 lpm NC; Pain 10/10; hb 13:16 BP 112 / 49; Pulse 93; Resp 17; Pulse Ox 99% on 3 lpm NC; hb 14:23 BP 119 / 82; Pulse 83; Resp 18; Pulse Ox 96% on 3 lpm NC; hb 15:16 BP 123 / 69; Pulse 90; Resp 20; Pulse Ox 99% on 3 lpm NC; sv Fady Coma Score: 15:21 Eye Response: spontaneous(4). Verbal Response: oriented(5). Motor Response: obeys rn commands(6). Total: 15. MDM: 12:10 Patient medically screened. rn 15:21 Differential diagnosis: hypertensive headache, intracerebral hemorrhage, migraine, rn neoplasm, subarachnoid bleed, tension headache, vasomotor headache. Data reviewed: vital signs, nurses notes, lab test result(s), radiologic studies, CT scan, and as a result, I will discharge patient. Counseling: I had a detailed discussion with the patient and/or guardian regarding: the historical points, exam findings, and any diagnostic results supporting the discharge/admit diagnosis, lab results, radiology results, the need for outpatient follow up, to return to the emergency department if symptoms worsen or persist or if there are any questions or concerns that arise at home. Response to treatment: the patient's symptoms have markedly improved after treatment, and as a result, I will discharge patient. Special discussion: I discussed with the patient/guardian in detail that at this point there is no indication for admission to the hospital. It is understood, however, that if the symptoms persist or worsen the patient needs to return immediately for re-evaluation. 08/02 12:27 Order name: CBC with Diff; Complete Time: 14: rn 08/02 12:27 Order name: Basic Metabolic Panel; Complete Time: 14: rn 08/02 12:27 Order name: CT Head Brain wo Cont; Complete Time: 14: rn 08/02 12:27 Order name: CT Head Angio; Complete Time: 14: rn 08/02 12:27 Order name: XRAY Chest (1 view); Complete Time: 15:03 rn 08/02 12:27 Order name: Procalcitonin; Complete Time: 14:25 rn 08/02 12:27 Order name: IV Start; Complete Time: 12:48 rn 08/02 12:27 Order name: EKG; Complete Time: 12:27 rn 08/02 12:27 Order name: EKG - Nurse/Tech; Complete Time: 12:35 rn Administered Medications: 12:40 Drug: Demerol (meperidine) 25 mg Route: IVP; Site: right antecubital; sv 13:12 Follow up: Response: No adverse reaction hb 12:40 Drug: NS 0.9% 1000 ml Route: IV; Rate: 1000 ml; Site: right antecubital; sv 12:42 Drug: Decadron - Dexamethasone 10 mg Route: IVP; Site: right antecubital; sv 13:15 Follow up: Response: No adverse reaction hb 12:47 Drug: Zofran (Ondansetron) 4 mg Route: IVP; Site: right antecubital; sv 13:22 Follow up: Response: No adverse reaction hb 14:15 Drug: Demerol (meperidine) 25 mg Route: IVP; Site: right antecubital; hb 15:00 Follow up: Response: No adverse reaction hb 15:40 Drug: Demerol (meperidine) 12.5 mg Route: IVP; Site: right antecubital; hb 15:51 Follow up: Response: Medication administered at discharge. hb Disposition: 08/02/20 15:25 Discharged to Home. Impression: Headache. - Condition is Stable. - Discharge Instructions: General Headache Without Cause, Hypertension. - Medication Reconciliation Form, Thank You Letter, Antibiotic Education, Prescription Opioid Use form. - Follow up: Private Physician; When: As needed; Reason: Recheck today's complaints, Re-evaluation by your physician. - Problem is new. - Symptoms have improved. Signatures: Dispatcher [employer] Sammie Lund RN RN sv Nieto, Roman, MD MD rn Baxter, Heather, RN RN Corrections: (The following items were deleted from the chart) 15:52 15:25 08/02/2020 15:25 Discharged to Home. Impression: Headache. Condition is Stable. hb Forms are Medication Reconciliation Form, Thank You Letter, Antibiotic Education, Prescription Opioid Use. Follow up: Private Physician; When: As needed; Reason: Recheck today's complaints, Re-evaluation by your physician. Problem is new. Symptoms have improved. rn
--- NOTE | 2020-08-02 15:26 | ER ---
Nurse's Notes [facility] Name: Kallie Correia Age: 60 yrs Sex: Female : 1960 Arrival Date: 08/02/2020 Time: 12:08 Bed 8 Private MD: Diagnosis: Headache Presentation: 08/02 12:08 Chief complaint: EMS states: Migraine and nausea since last night, chest pain since hb this morning. On 3L home O2. Zofran 4 mg, SoluMedrol 125 mg and nitro paste administered SHAKE PACKER. 20 LAC. Coronavirus screen: At this time, the client does not indicate any symptoms associated with coronavirus-19. Ebola Screen: No symptoms or risks identified at this time. Initial Sepsis Screen: Does the patient meet any 2 criteria? No. Patient's initial sepsis screen is negative. Does the patient have a suspected source of infection? No. Patient's initial sepsis screen is negative. Risk Assessment: Do you want to hurt yourself or someone else? Patient reports no desire to harm self or others. Onset of symptoms was August 01, 2020. 12:08 Method Of Arrival: EMS: [facility] 12:08 Acuity: BENJI 3 hb Triage Assessment: 12:15 Headache History: The patient has had previous headaches and this one is similar to previous episodes. General: Appears in no apparent distress. uncomfortable, Behavior is cooperative, agitated, restless. Pain: Pain currently is 10 out of 10 on a pain scale. EENT: No signs and/or symptoms were reported regarding the EENT system. Neuro: Level of Consciousness is awake, alert, obeys commands, Oriented to person, place, time, situation, Reports headache. Cardiovascular: Reports chest pain, Patient's skin is warm and dry. Rhythm is regular. Respiratory: Respiratory effort is even, unlabored, Respiratory pattern is regular, symmetrical. GI: Reports nausea. : No signs and/or symptoms were reported regarding the genitourinary system. Derm: Skin is pink, warm \\T\\ dry. Musculoskeletal: No signs and/or symptoms reported regarding the musculoskeletal system. Historical: - Allergies: 12:09 Morphine; sv - PMHx: 12:09 "frozen shoulder"; COPD; Emphysema; Non-tuberculin Mycoplasma; sv - PSHx: 12:09 Hysterectomy; Tonsillectomy; sv - Immunization history:: Adult Immunizations up to date. - Social history:: Smoking status: Patient/guardian denies using tobacco. - Family history:: not pertinent. - Hospitalizations: : No recent hospitalization is reported. Screenin:09 Abuse screen: Denies threats or abuse. Denies injuries from another. Nutritional sv screening: No deficits noted. Tuberculosis screening: No symptoms or risk factors identified. Fall Risk None identified. Assessment: 12:16 General: see triage assessment . hb 13:16 Reassessment: Patient appears in no apparent distress at this time. Patient and/or hb family updated on plan of care and expected duration. Pain level reassessed. Patient is alert, oriented x 3, equal unlabored respirations, skin warm/dry/pink. 14:23 Reassessment: Pt c/o headache 9/10, rmedicated as ordered. VSS. hb Vital Signs: 12:08 Pulse 100; Resp 20; Temp 97.2; Pulse Ox 100% on 3 lpm NC; Pain 10/10; hb 13:16 BP 112 / 49; Pulse 93; Resp 17; Pulse Ox 99% on 3 lpm NC; hb 14:23 BP 119 / 82; Pulse 83; Resp 18; Pulse Ox 96% on 3 lpm NC; hb 15:16 BP 123 / 69; Pulse 90; Resp 20; Pulse Ox 99% on 3 lpm NC; sv Fady Coma Score: 15:21 Eye Response: spontaneous(4). Verbal Response: oriented(5). Motor Response: obeys rn commands(6). Total: 15. ED Course: 12:08 Patient arrived in ED. hb 12:09 Patient has correct armband on for positive identification. Placed in gown. Bed in low sv position. Call light in reach. sumo wrestler on. Pulse ox on. NIBP on. Door closed. Head of bed elevated. 12:09 Arm band placed on. sv 12:10 Emir England MD is Attending Physician. rn 12:11 Triage completed. hb 12:13 EKG done, by ED staff, reviewed by Emir England MD. sv 12:20 Warm blanket given. sv 12:59 CT Head Brain wo Cont In Process Unspecified. EDMS 12:59 CT Head Angio In Process Unspecified. EDMS 13:58 XRAY Chest (1 view) In Process Unspecified. EDMS 15:51 No provider procedures requiring assistance completed. IV discontinued, intact, hb bleeding controlled, No redness/swelling at site. Administered Medications: 12:40 Drug: Demerol (meperidine) 25 mg Route: IVP; Site: right antecubital; sv 13:12 Follow up: Response: No adverse reaction hb 12:40 Drug: NS 0.9% 1000 ml Route: IV; Rate: 1000 ml; Site: right antecubital; sv 12:42 Drug: Decadron - Dexamethasone 10 mg Route: IVP; Site: right antecubital; sv 13:15 Follow up: Response: No adverse reaction hb 12:47 Drug: Zofran (Ondansetron) 4 mg Route: IVP; Site: right antecubital; sv 13:22 Follow up: Response: No adverse reaction hb 14:15 Drug: Demerol (meperidine) 25 mg Route: IVP; Site: right antecubital; hb 15:00 Follow up: Response: No adverse reaction hb 15:40 Drug: Demerol (meperidine) 12.5 mg Route: IVP; Site: right antecubital; hb 15:51 Follow up: Response: Medication administered at discharge. hb Outcome: 15:25 Discharge ordered by . rn 15:51 Discharged to home via wheelchair, with family. hb 15:51 Condition: stable 15:51 Discharge instructions given to patient, family, Instructed on discharge instructions, follow up and referral plans. medication usage, Demonstrated understanding of instructions, follow-up care, medications. 15:52 Patient left the ED. hb Signatures: Dispatcher [employer] Sammie Lund RN RN sv Nieto, Roman, MD MD rn Baxter, Heather, RN RN hb
[2020-08-02 15:56] VITALS: TEMP 97.2
[2020-08-02 16:01] VITALS: BP 123/69; O2SAT 99
--- NOTE | 2020-08-03 12:58 | EKG ---
Test Date: 2020-08-02 Test Time: 12:13:21 Dispensing Audiologist: SV MEASUREMENT RESULTS: Intervals: Rate: 106 WV: 152 QRSD: 64 QT: 340 QTc: 451 [place]: P: 75 WV: 152 QRS: 75 T: 78 INTERPRETIVE STATEMENTS: Sinus tachycardia with occasional premature ventricular complexes Right atrial enlargement Borderline ECG Compared to ECG 06/08/2020 21:03:55 Fusion complex(es) no longer present ST (T wave) deviation no longer present Electronically Signed On 08-03-20 12:54:06 CDT by Jesus Bryan
== END 2020-08-02 15:52 | disposition home or self-care (01) ==
LOC: ER 12:07
DX: R51.9 Headache, unspecified (principal); J44.9 Chronic obstructive pulmonary disease, unspecified; Z88.5 Allergy status to narcotic agent
CPT/HCPCS: 93005; 85025; 80048; 36415; 82565; 84145; 70450; 70496; 71045; Q9967; J1100; J2175 ×3; J7030; J2405; 96374; 96375; 99284

== ENCOUNTER 2021-11-23 21:22 | Emergency (ER) | payer OTHER ==
--- OUTSIDE RECORDS SUMMARY | 2021-11-23 21:26 | XMS REPORT | Clinical Summary ---
:1960 Author Organization [facility] MD [facility] Address [address] [place] [address] Care Team Providers Name Role Phone Rachel Greenberg MD Primary Care Provider Unavailable Daria Roth MD Unavailable Daria Roth MD Unavailable Dennis Trent MD Unavailable Rachel Greenberg MD Unavailable Unavailable Leidy Scanlon Unavailable Leigh Johnson Unavailable Kylah Redd MD Unavailable Tani Daniel MD Unavailable Pham Thomas NP Unavailable Verna Felipe NP Unavailable Emile Ochoa Unavailable Allergies Not on File Medications Medication Sig Dispensed Refills Start Date End Date Status ipratropium INHALE ONE VIAL BY 2.5 mL 3 07/22/2015 Active (ATROVENT) 0.02% NEBULIZER 4 TIMES nebulizer DAILY NEEDED solutionIndications: Chronic obstructive pulmonary disease Active Problems Not on file Immunizations Name Administration Dates Next Due Pneumococcal Conjugate 13-Valent 11/04/2014 Social History Tobacco Use Types Packs/Day Years Used Date Never Assessed Sex Assigned at Date Recorded Not on file Last Filed Vital Signs Not on file Plan of Treatment Health Maintenance Due Date Last Done Comments COVID-19 Vaccination (#1) 01/11/1961 Results Not on fileafter 11/23/2020 Insurance Payer Benefit Plan / Subscriber ID Effective Dates Phone Addre ss Type Group MEDICARE MEDICARE PART [id number] 2013-Presen [phone] [facility] Medicare A AND B t 2 SOLUTIONS [address] [place] [address] Care Teams [employer] Director Relationship Specialty Start Date End Date Rachel Greenberg MD PCP - General 04/07/15 Daria Roth MD PCP - External Referring 12/02/[address] [address] Daria Roth MD PCP - External Follow Up A 12/02/[address] [address] Dennis Trent MD Physician 04/14/15 [facility] [place] [address] Rachel Greenberg MD Physician 04/14/15 Leidy Scanlon PA Physician Customer Service Sales Associate 04/14/15 [facility] [place] [address] Leigh Johnson PA Physician Customer Service Sales Associate 04/14/[address] [place] [id number] Kylah Redd MD Physician 04/14/[address] [place] [phone] Tani Daniel MD Physician 04/14/[address] [place] [id number] Pham Thomas, PEDRO Nurse Practitioner 04/14/[address] [place] [id number] Verna Felipe NP Nurse Practitioner 04/14/[address] [place] [id number] Emile Ochoa PA Physician Customer Service Sales Associate 04/14/15 [facility] [place] [address]
--- OUTSIDE RECORDS SUMMARY | 2021-11-23 21:34 | XMS REPORT | Continuity of Care Document ---
:1960 Author Organization [facility] t Address [address] [place] [address] Care Team Providers Name Role Phone [phone] Primary Care Physician Unavailable [id number] Attending Clinician Unavailable DEMI VALADEZ Attending Clinician Unavailable SEAN BILLS Attending Clinician Unavailable Sean Bills MD Attending Clinician Gina Orosco RN Attending Clinician Unavailable Nancy Cee RN Attending Clinician Unavailable Sarah Rogers MA Attending Clinician Unavailable Angelica Ralph RN Attending Clinician Unavailable Ewa Rivera Attending Clinician Unavailable Elvira Goldman RN Attending Clinician Unavailable Iris Rosa MA Attending Clinician Unavailable Irasema Avila RN Attending Clinician Unavailable JOSE CRUZ GARCIA Attending Clinician Unavailable Oleksandr GIRON Corby Attending Clinician Radha ESQUIVEL, Jose Cruz Attending Clinician Maksim Lopez DO Attending Clinician Mckenna REID, Maame Attending Clinician Unavailable Brooke Mensah RN Attending Clinician Unavailable Doctor Unassigned, Marble Cliff Attending Clinician Unavailable ALPESH GRANADOS Attending Clinician Unavailable Perry ESQUIVEL, Simran Attending Clinician Nawaf Wynn MD Attending Clinician KAROL RENE Attending Clinician Unavailable Heron Oakes Attending Clinician Fidelina Plunkett MA Attending Clinician Unavailable Rolanda Dimas MA Attending Clinician Unavailable Concetta ESQUIVEL, Danial Attending Clinician Tu Romero MD Attending Clinician Ruthann Green MA Attending Clinician Unavailable Ben Mensah MD Attending Clinician Geoff ESQUIVEL, Angeline Attending Clinician Tanja Bone RN Attending Clinician Unavailable Robina De La Vega MA Attending Clinician Unavailable Sally Carty MA Attending Clinician Unavailable Benjy Hernandez MD Attending Clinician Elba Renteria Attending Clinician Unavailable Araceli Wilkins MA Attending Clinician Unavailable Pamela JHAVERI, Joi Baird Attending Clinician Mariola Angel LCSW Attending Clinician Unavailable Av REID, Krissy Attending Clinician Unavailable Abena VASQUEZ, Lottie Attending Clinician PORSCHE MOORE Attending Clinician Unavailable Porsche Moore DO Attending Clinician Abdelrahman VASQUEZ, Dixie Attending Clinician Shayy Mclaughlin MD Attending Clinician Damien Mclaughlin MD Attending Clinician [phone] Consuelo Brand Attending Clinician Unavailable Provider, Unknown Attending Clinician Unavailable Fanta Tijerina Attending Clinician Unavailable Jordy Zarco MD Attending Clinician Provider , Not In System Attending Clinician Unavailable RADIOLOGY Attending Clinician Unavailable Radiology Attending Clinician Unavailable TERESO CASAREZ Attending Clinician Unavailable Robert Fountain DO Attending Clinician Tereso Casarez MD Attending Clinician Yanci Lujan Attending Clinician Unavailable Jayda ESQUIVEL, Jovani Trejo Attending Clinician Celia REID, Carlos Garces Attending Clinician Unavailable PREETI ANDERSEN Attending Clinician Unavailable Idalia Sofia Attending Clinician Preeti Andersen DO Attending Clinician MAKSIM LOPEZ Attending Clinician Unavailable MAKSIM LOPEZ Attending Clinician Unavailable Pablo Lindsey Rahil Attending Clinician Unavailable Renata Belle LVN Attending Clinician Unavailable Maria Luz ESQUIVEL, Robbie Attending Clinician Fernanda Guillermo MD Attending Clinician Caitlin Sandhu MA Attending Clinician Unavailable Brianne Hickey MD Attending Clinician LOREN PATRICIO Attending Clinician Unavailable MD SHANTEL WARD Attending Clinician Unavailable NAOMI LOPEZ Attending Clinician Unavailable Sarah Mckenna Attending Clinician Yenni Ocampo MD Attending Clinician Jessie Sinha MD Attending Clinician [phone] Davon Pizarro MD Attending Clinician JOHN HOOPER Attending Clinician Unavailable Richar Garcia MD Attending Clinician RICHAR GARCIA Attending Clinician Unavailable GC_[email or web address]_R Attending Clinician Unavailable Shayla Mcfarland Attending Clinician [phone] Rupa Kahn MD Attending Clinician RUPA KAHN Attending Clinician Unavailable Nassar PAC, No S Attending Clinician NO NASSAR Attending Clinician Unavailable Ward Chavez MD Attending Clinician Wayne Harris DO Attending Clinician Jacob Munoz MD Attending Clinician AVRIL RUBIO Attending Clinician Unavailable Rogelio ESQUIVEL, Franco Attending Clinician Fellow, Pulmonary Attending Clinician Unavailable Lucio ESQUIVEL, Hany Mathur Attending Clinician [phone] Ernie REID, Sheron Attending Clinician Unavailable JACOB MUNOZ Attending Clinician Unavailable Latrice ESQUIVEL, Antony Donis Attending Clinician Dar Golden MD Attending Clinician STUART SHAIKH Attending Clinician Unavailable Stuart Shaikh MD Attending Clinician Kalen Segovia MD Attending Clinician [facility] Attending Clinician Unavailable Preeti Lamar MD Attending Clinician PREETI LAMAR Attending Clinician Unavailable DAVON PIZARRO Attending Clinician Unavailable Kaylyn VASQUEZ, Carol Santiago Attending Clinician So Fofana Attending Clinician BRIANNE HICKEY Attending Clinician Unavailable [id number] Admitting Clinician Unavailable PABLO LINDSEY Admitting Clinician Unavailable SEAN BILLS Admitting Clinician Unavailable JOSE CRUZ GARCIA Admitting Clinician Unavailable Jose Cruz Garcia MD Admitting Clinician ANGELINE TELLEZ Admitting Clinician Unavailable MD ALPESH GRANADOS Admitting Clinician Unavailable SHAYY MCLAUGHLIN Admitting Clinician Unavailable LISS PICHARDO Admitting Clinician Unavailable TERESO CASAREZ Admitting Clinician Unavailable Tereso Casarez MD Admitting Clinician PREETI ANDERSEN Admitting Clinician Unavailable Preeti Andersen DO Admitting Clinician Pablo Lindsey Rahil Admitting Clinician Unavailable Brianne Hickey MD Admitting Clinician SHANTEL WARD Admitting Clinician Unavailable MD SHANTEL WARD Admitting Clinician Unavailable Yenni Ocampo MD Admitting Clinician Richar Garcia MD Admitting Clinician RICHAR GARCIA Admitting Clinician Unavailable GC_WPSA_Awan_R Admitting Clinician Unavailable ANTONY POLLARD Admitting Clinician Unavailable Antony Pollard MD Admitting Clinician STUART SHAIKH Admitting Clinician Unavailable YENNI OCAMPO Admitting Clinician Unavailable BRIANNE HICKEY Admitting Clinician Unavailable Payers Payer Name Policy Type Policy Number Effective Date Expiration Date [place] [facility] [id number] 2017 00:00:00 [place] [id number] 2017 00:00:[address] [facility] [id number] MISD MISD [id number] [facility] [id number] 2019 PREFERRED (MEDICARE 00:00:00 REPLACEMENT HMO) [place] [id number] [place]ICAID[place] Problems Condition Condition Condition Status Onset Resolution Last Treating Co mments Source Name Details Category Date Date Treatment Clinician Date COVID-19 COVID-19 Disease Active Unive rs 7-28 ity of 00:00: [place] [id number] Medical Branch Pure Pure Disease Active Methodi hyperchole hyperchole 5-13 st sterolemia sterolemia 00:00: Ho spita 00 l Coronary Coronary Disease Active Metho di artery artery 5-13 st disease disease 00:00: Hospita involving involving [place] coronary coronary artery of artery of [place] heart heart without without angina angina pectoris pectoris COPD COPD Disease Active Methodi (chronic (chronic 4-19 st obstructiv obstructiv 00:00: [facility] spita e e 00 l pulmonary pulmonary disease) disease) with with emphysema emphysema Respirator Respirator Disease Active M ethodi y failure y failure 4-19 st 00:00: Hospita 00 l Osteoporos Osteoporos Disease Active M ethodi is is 3-18 st 00:00: Hospita 00 l Troponin I Troponin I Disease Active 2020-02 U nivers above above 2-08 [place] 00 [place] Respirator Respirator Disease Active 2020-02 U nivers y distress y distress 2-08 it y of 00:00: [place] [facility] COPD with COPD with Disease Active 2020-02 Uni vers exacerbati exacerbati 2-07 it y of on on 00:00: [place] [facility] Abnormal Abnormal Disease Active 2020-02 Metho di chest chest 1-19 st x-ray with x-ray with 00:00: Ho spita multiple multiple 00 l lung lung nodules nodules COPD COPD Disease Active 2020-02 Univers (chronic (chronic 1-13 ity of obstructiv obstructiv [place] Medical pulmonary pulmonary Bran ch disease) disease) Chest pain Chest pain Disease Active 2020-02 U nivers 1-12 ity of 00:00: [place] [facility] Atrial Atrial Disease Active 2020-02 Overview: Method i fibrillati fibrillati 0-[address] on on 00:00: g of this Hospita 00 note l might be different from the original. Added automatic ally from request for surgery [id number] COPD with COPD with Disease Active Met hodi acute acute 10-08 st exacerbati exacerbati 00:00: Ho spita on on 00 l Hemoptysis Hemoptysis Disease Active M ethodi 10-08 st 00:00: Hospita 00 l Anxiety Anxiety Disease Active Methodi - st 00:00: Hospita 00 l Occult Occult Disease Active Overview: Method i blood in blood in 10-[address] stools stools 00:00: g of this Hospita 00 note l might be different from the original. Added automatic ally from request for surgery [id number] Chronic Chronic Disease Active Methodi obstructiv obstructiv 8-11 st e e 00:00: Hospita pulmonary pulmonary 00 l disease disease with acute with acute exacerbati exacerbati on on COPD COPD Disease Active Univers exacerbati exacerbati 7-04 it y of on on 00:00: [place] [facility] Hemoptysis Hemoptysis Disease Active U nivers 6-11 ity of 00:00: [place] [facility] Atypical Atypical Disease Active Unive rs chest pain chest pain 5-09 it y of 00:00: [place] 00 Medical Branch History of History of Disease Active M ethodi pulmonary pulmonary 5-09 st embolism embolism 00:00: Hospit a 00 l Pneumonia Pneumonia Disease Active Uni vers 5-07 ity of 00:00: [place] 00 Medical Branch 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 U nivers protein-ca protein-ca 4-17 it y of tenisha steven 00:00: [place] malnutriti malnutriti 00 Me dical on on Branch Cavitary Cavitary Disease Active Unive rs lung lung 4-17 ity of disease disease 00:00: [place] 00 Medical Branch Other Other Disease Active Methodi chronic chronic 4-17 st pain pain 00:00: Hospita 00 l 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 4-16 st complex complex 00:00: Hospita 00 l Unspecifie Unspecifie Disease Active M ethodi d severe d severe 2-07 st protein-ca protein-ca 00:00: Ho darshan farahie 00 l malnutriti malnutriti on on Hypoxia Hypoxia Disease Active Methodi 2-06 st 00:00: Hospita 00 l E44.0 E44.0 Disease Active Univers Moderate Moderate 2-05 ity of protein protein 00:00: [place] calorie calorie 00 Medical malnutriti malnutriti Br anch on on PAF PAF Disease Active Univers (paroxysma (paroxysma 2-03 it y of l atrial l atrial 00:00: [place] fibrillati fibrillati 00 Me dical on) on) Branch Bradycardi Bradycardi Disease Active M ethodi a a 2-03 st 00:00: Hospita 00 l Essential Essential Disease Active Met hodi hypertensi hypertensi 2-03 st on on 00:00: Hospita 00 l Septic Septic Disease Active Methodi shock shock 2-03 st 00:00: Hospita 00 l Right Right Disease Active Methodi upper lobe upper lobe 2-02 st pneumonia pneumonia 00:00: Hosp nuha 00 l Atypical Atypical Disease Active Metho di chest pain chest pain 4-17 st 00:00: Hospita 00 l Pulmonary Pulmonary Disease Active Met hodi cavitary cavitary 10-24 st lesion lesion 00:00: Hospita 00 l Chronic Chronic Problem Active Common obstructiv obstructiv [facility] disease[facility] un[facility]ifie unspecifie Me dical d COPD d COPD Center type type Encounter Encounter Problem Active Com mon for for Spirit gynecologi gynecologi - [facility] kandis kandis St examinatio examinatio [facility] n without n without Medi kandis abnormal abnormal Center finding finding Hot Hot Problem Active Common flashes flashes Spirit due to due to - [facility] menopause menopause [facility] Encounter Encounter Problem Active Com mon for for Spirit screening screening - [facility] I mammogram mammogram for breast for breast [facility] cancer cancer [facility] Allergies, Adverse Reactions, Alerts Allergy Allergy Status Severity Reaction(s) Onset Inactive Treating Comm ents Source Name Type Date Date Clinician Albutero Propensi Active Shortness Of 2020-02 Methodi l ty to Breath 0-20 st adverse 00:00: Hospita reaction 00 l s to drug Albutero Propensi Active Shortness of 2020-02 Univers l ty to Breath 0-20 ity of adverse 00:00: [place] reaction 00 Medical s Branch ALBUTERO DRUG Active SOB 2020-02 Univers L INGREDI 0-20 ity of 00:00: Medical Branch Morphine Propensi Active Other (See Anaphylac Methodi ty to Comments) 8-[address] adverse 00:00: Hospita reaction 00 l s to drug Lorazepa Propensi Active Hallucinatio 2019-0 Methodi m ty to ns 4-18 st adverse 00:00: Hospita reaction 00 l s to drug LORAZEPA DRUG Active Hallucinates 2019-0 Un jb M INGREDI 4-18 ity of 00:00: [place] 00 Medical Branch Lorazepa Propensi Active Hallucinatio 2019-0 Univers m ty to ns 4-18 ity of adverse 00:00: [place] reaction 00 Medical s Branch Morphine Propensi Active Other - See "makes U nivers ty to comments 9- heart ity of adverse 00:00: stop" [place] reaction Medical s Branch MORPHINE DRUG Active Other-Cmnt Univ ers INGREDI 9-20 ity of 00:00: [address] Branch Morphine Allergy Active Confusion, Mere via to Respiratory Medic al substanc distress e MORPHINE Adverse Active Info Not Commo n Reaction Available [facility] Family History Family Member Diagnosis Comments Start Date Stop Date Source [facility] mother [facility] Natural mother [facility] Social History Social Habit Start Date Stop Date Quantity Comments Source History SDOH [facility] St[facility] Drinks History SDOH [facility] Exposure to 2021-11-02 2021-11-12 Not sure University SARS-CoV-2 00:00:00 12:15:00 [facility] (event) Branch Alcohol intake 2021-06-08 2021-06-08 Lifetime Religious 00:00:00 00:00:00 non-drinker Hospital (finding) Tobacco use and 2021-04-15 2021-04-15 Smokeless tobacco Me thodist exposure 00:00:00 00:00:00 non-user Hospital Tobacco Comment 2021-01-11 2021-01-11 Uses Universit y of 00:00:00 00:00:00 [id number] 4 [facility] ical years ago Branch History SDOH 2020-09-15 2020-09-15 1 Religious Alcohol Frequency 00:00:00 00:00:00 Hospita l Education 2020-08-09 2020-08-09 12 University of 00:00:00 00:00:00 [facility] Alcohol Comment 2017-11-05 2017-11-05 rare Universit y of 00:00:00 00:00:00 [facility] History of 2017-07-18 Current smoker Religious tobacco use 00:00:00 Hospital Sex Assigned At [birth year] Religious 00:00:00 00:00:00 Hospital Smoking Status Start Date Stop Date Source Ex-smoker 2021-04-15 00:00:00 2021-04-15 00:00:00 [facility] Medications Ordered Filled Start Stop Current Ordering Indication Dosage Frequency Signature Comments Components Source Medication Medication Date Date Medication? Clinician (SIG) Name Name ondansetron 2021-02 4mg 4 mg, Slow Univers (ZOFRAN 11-12 IV Push, ity of (PF)) 18:30: 18:31 ONCE, 1 [place] injection 4 00 :00 dose, On Medi kandis mg Sat Branch 11/12/21 at 1330, EILEEN FENTanyl PF 2021-02 No 50ug 50 mcg, Un jb (SUBLIMAZE 0-08 10-08 Slow IV ity o f (PF)) 18:00: 17:53 Push, [place] injection 00 :00 ONCE, 1 Medical 50 mcg dose, On Branch 11/12/21 at 1300, STAT HYDROcodone 2021-02- No 1{tbl} Take 1 U nivers -acetaminop 0-08 10-08 tablet by it y of hen (NORCO) 15:05: 00:00 mouth 3 [place] 5-325 mg 54 :00 (three) Medical tablet times Branch daily. HYDROcodone 2021-02- Yes [id number] 1{tbl} Take 1 U nivers -acetaminop 0-08 10-16 tablet by it y of hen 5-325 00:00: 04:59 mouth [place] mg tablet 00 :00 every 4 Medical (four) Branch hours as needed for Pain (scale 4-6) for up to 7 days. Indication s: acute pain HYDROcodone 2021-02- No 4647 1{tbl} Take 1 U nivers -acetaminop 0-08 10-08 tablet by it y of hen 5-325 00:00: 00:00 mouth [place] mg tablet 00 :00 every 4 Medical (four) Branch hours as needed for Pain (scale 4-6) for up to 7 days. Indication s: acute pain methylpredn No 125mg 125 mg, U nivers isolone sod 09-14 Intravenou i ty of succ 20:45: 19:46 s, ONCE, 1 [place] (SOLU-MEDRO 00 :00 dose, On Medi kandis L) Wed Branch injection 09/14/21 at 125 mg 1545, 2 mL levalbutero No 1.25mg 1.25 mg, Univers l (XOPENEX) 09-14 Inhalation i ty of nebulizer 20:45: 19:40 , ONCE [place] solution 00 :00 NOW, 1 Medical 1.25 mg dose, On Branch 09/14/21 at 1545, Routine ipratropium 2022-0 2022- No .5mg 0.5 mg, Un jb (ATROVENT) 09-14 Inhalation it y of 0.02 % 19:45: 19:40 , ONCE, 1 [place] nebulizer 00 :00 dose, On Medica l solution Sun 0.5 mg 09/14/21 at 1445, EILEEN FENTanyl PF 2021-2021- No 25ug 25 mcg, Un jb (SUBLIMAZE 09-14 Slow IV ity o f (PF)) 18:00: 17:59 Push, [place] injection 00 :00 ONCE, 1 Medical 25 mcg dose, On Branch 09/14/21 at 1300, STAT polyethylen 2021-0 Yes [id number] 17g Take 1 Univers e glycol 8-03 Packet by ity of 3350 17 00:00: mouth in [place] gram powder 00 the Medical morning. Branch polyethylen 2021-0 Yes [id number] 17g Take 1 Univers e glycol 8-03 Packet by ity of 3350 17 00:00: mouth in [place] gram powder 00 the Medical morning. Branch polyethylen 2021-0 Yes [id number] 17g Take 1 Univers e glycol 8-03 Packet by ity of 3350 17 00:00: mouth in [place] gram powder 00 the Medical morning. Branch polyethylen 0 Yes [id number] 17g Take 1 Univers e glycol 8-03 Packet by ity of 3350 17 00:00: mouth in [place] gram powder 00 the Medical morning. Branch cholecalcif 2021- Yes [id number] 1000U Take 1 Univers usha, 09-07 tablet by ity of vitamin D3, 00:00: 04:59 mouth in [place] 25 mcg 00 :00 the Medical (1,000 morning Branch unit) for 5 tablet days. zinc 2021- Yes [id number] 50mg Take 1 Unive rs sulfate 50 09-07 capsule by it y of mg zinc 00:00: 04:59 mouth in [place] (220 mg) 00 :00 the Medical capsule morning Branch for 5 days. cholecalcif 2021- Yes [id number] 1000U Take 1 Univers usha, 09-07 tablet by ity of vitamin D3, 00:00: 04:59 mouth in [place] 25 mcg 00 :00 the Medical (1,000 morning Branch unit) for 5 tablet days. zinc 2021- Yes [id number] 50mg Take 1 Unive rs sulfate 50 09-07 08-09 capsule by it y of mg zinc 00:00: 04:59 mouth in [place] (220 mg) 00 :00 the Medical capsule morning Branch for 5 days. fluticasone Yes 1{puff} Inhale 1 Univers propion-tavia 8-02 Puff every it y of meteroL 17:25: 12 [place] [facility] (twelve) Medical mcg/dose hours. Branch inhalation disk flecainide Yes 50mg Take 50 mg U nivers acetate 802 by mouth ity of (FLECAINIDE 17:25: every [place] ORAL) 34 morning. Medical Branch HYDROcodone Yes 1{tbl} Take 1 Un jb -acetaminop 8-02 tablet by ity of hen (NORCO) 17:25: mouth 3 [place] 5-325 mg (three) Medical tablet times Branch daily. metoprolol Yes 25mg Take 25 mg U nivers tartrate 25 802 by mouth 2 it y of mg tablet 17:25: (two) [place] [address] times Medical daily. Branch gabapentin Yes 400mg Take 400 Un jb 400 mg 8-02 mg by ity of capsule 17:25: mouth 3 [place] [address] (three) Medical times Branch daily. pantoprazol Yes 40mg Take 40 mg Univers e 40 mg EC 802 by mouth ity o f tablet 17:25: daily. [place] [address] Medical Branch aspirin 81 0 Yes 81mg Take 81 mg U nivers mg chewable 8-02 by mouth ity of tablet 17:25: daily. [place] [address] Medical Branch melatonin 3 Yes 6mg Take 6 mg U nivers mg tablet 02 by mouth ity of 17:25: at [place] [address] bedtime. Medical Branch fluticasone Yes 1{puff} Inhale 1 Univers propion-tavia 8-02 Puff every it y of meteroL 17:25: 12 [place] [facility] (twelve) Medical mcg/dose hours. Branch inhalation disk flecainide Yes 50mg Take 50 mg U nivers acetate 8-02 by mouth ity of (FLECAINIDE 17:25: every [place] ORAL) 34 morning. Medical Branch HYDROcodone Yes 1{tbl} Take 1 Un jb -acetaminop 8-02 tablet by ity of hen (NORCO) 17:25: mouth 3 [place] 5-325 mg 34 (three) Medical tablet times Branch daily. metoprolol 0 Yes 25mg Take 25 mg U nivers tartrate 25 8-02 by mouth 2 it y of mg tablet 17:25: (two) [place] 34 times Medical daily. Branch gabapentin Yes 400mg Take 400 Un jb 400 mg 8-02 mg by ity of capsule 17:25: mouth 3 [place] 34 (three) Medical times Branch daily. pantoprazol Yes 40mg Take 40 mg Univers e 40 mg EC 8-02 by mouth ity o f tablet 17:25: daily. [place] [address] Medical Branch aspirin 81 0 Yes 81mg Take 81 mg U nivers mg chewable 8-02 by mouth ity of tablet 17:25: daily. [place] [address] Medical Branch melatonin 3 0 Yes 6mg Take 6 mg U nivers mg tablet 8-02 by mouth ity of 17:25: at [place] [address] bedtime. Medical Branch fluticasone Yes 1{puff} Inhale 1 Univers propion-tavia 8-02 Puff every it y of meteroL 17:25: 12 [place] 250-50 34 (twelve) Medical mcg/dose hours. Branch inhalation disk flecainide Yes 50mg Take 50 mg U nivers acetate 8-02 by mouth ity of (FLECAINIDE 17:25: every [place] ORAL) 34 morning. Medical Branch HYDROcodone Yes 1{tbl} Take 1 Un jb -acetaminop 8-02 tablet by ity of hen (NORCO) 17:25: mouth 3 [place] 5-325 mg 34 (three) Medical tablet times Branch daily. metoprolol 0 Yes 25mg Take 25 mg U nivers tartrate 25 8-02 by mouth 2 it y of mg tablet 17:25: (two) [place] 34 times Medical daily. Branch gabapentin 0 Yes 400mg Take 400 Un jb 400 mg 8-02 mg by ity of capsule 17:25: mouth 3 [place] [address] (three) Medical times Branch daily. pantoprazol Yes 40mg Take 40 mg Univers e 40 mg EC 8-02 by mouth ity o f tablet 17:25: daily. [place] [address] Medical Branch aspirin 81 Yes 81mg Take 81 mg U nivers mg chewable 8-02 by mouth ity of tablet 17:25: daily. [place] [address] Medical Branch melatonin 3 Yes 6mg Take 6 mg U nivers mg tablet 8-02 by mouth ity of 17:25: at [place] [address] bedtime. Medical Branch fluticasone Yes 1{puff} Inhale 1 Univers propion-tavia 8-02 Puff every it y of meteroL 17:25: 12 [place] 250-50 (twelve) Medical mcg/dose hours. Branch inhalation disk flecainide Yes 50mg Take 50 mg U nivers acetate 8-02 by mouth ity of (FLECAINIDE 17:25: every [place] ORAL) morning. Medical Branch metoprolol Yes 25mg Take 25 mg U nivers tartrate 25 8-02 by mouth 2 it y of mg tablet 17:25: (two) [place] [address] times Medical daily. Branch gabapentin Yes 400mg Take 400 Un jb 400 mg 8-02 mg by ity of capsule 17:25: mouth 3 [place] [address] (three) Medical times Branch daily. pantoprazol Yes 40mg Take 40 mg Univers e 40 mg EC 8-02 by mouth ity o f tablet 17:25: daily. [place] [address] Medical Branch aspirin 81 Yes 81mg Take 81 mg U nivers mg chewable 8-02 by mouth ity of tablet 17:25: daily. [place] [address] Medical Branch melatonin 3 Yes 6mg Take 6 mg U nivers mg tablet 8-02 by mouth ity of 17:25: at [place] [address] bedtime. Medical Branch phenoL Yes 1{spray 1 [place], Univ ers (SORE 8-02 } Oral, PRN, ity of THROAT 15:55: Starting [place] (PHENOL)) 44 on [facility] Medical 1.4 % spray 09/06/21 at Bra nch bottle 1 1055, [place] Until Discontinu ed, Routine, Sore throat docusate 2021-0 Yes [id number] 100mg Take 1 U nivers 100 mg 8-02 capsule by ity of capsule 00:00: mouth in [place] 00 the Medical morning Branch and 1 capsule in the evening. phenoL 1.4 2021-0 Yes [id number] 1{spray Take 1 Univers % spray 8-02 } [place] by ity of 00:00: mouth as [place] 00 needed for Medical Sore Branch throat. docusate 2021-0 Yes [id number] 100mg Take 1 U nivers 100 mg 8-02 capsule by ity of capsule 00:00: mouth in [place] 00 the Medical morning Branch and 1 capsule in the evening. phenoL 1.4 2021-0 Yes [id number] 1{spray Take 1 Univers % spray 8-02 } [place] by ity of 00:00: mouth as [place] 00 needed for Medical Sore Branch throat. docusate 2021-0 Yes [id number] 100mg Take 1 U nivers 100 mg 8-02 capsule by ity of capsule 00:00: mouth in [place] 00 the Medical morning Branch and 1 capsule in the evening. phenoL 1.4 2021-0 Yes [id number] 1{spray Take 1 Univers % spray 8-02 } [place] by ity of 00:00: mouth as [place] 00 needed for Medical Sore Branch throat. docusate 2021-0 Yes [id number] 100mg Take 1 U nivers 100 mg 8-02 capsule by ity of capsule 00:00: mouth in [place] 00 the Medical morning Branch and 1 capsule in the evening. phenoL 1.4 2021-0 Yes [id number] 1{spray Take 1 [facility] % spray 8-02 } [place] by ity of 00:00: mouth as [place] 00 needed for Medical Sore Branch throat. ascorbic 2021-0 2021- Yes [id number] 500mg Take 1 [facility] acid, 09-06-08 tablet by ity of vitamin C, 00:00: 04:59 mouth in [place] 500 mg 00 :00 the Medical tablet morning Branch and 1 tablet in the evening. Do all this for 5 days. ascorbic 2021-0 2021- Yes [id number] 500mg Take 1 [facility] acid, 09-06 08-08 tablet by ity of vitamin C, 00:00: 04:59 mouth in [place] 500 mg 00 :00 the Medical tablet morning Branch and 1 tablet in the evening. Do all this for 5 days. dexAMETHaso 2021- No [id number] 6mg Take 1 Univers ne 6 mg 09-06 tablet by ity of tablet 00:00: 00:00 mouth in [place] 00 :00 the Medical morning Branch for 5 days. ondansetron Yes 4mg 4 mg, Slow Univers (ZOFRAN 09-05 IV Push, ity of (PF)) 17:19: Q6HPRN, [place] injection 4 56 Nausea and Me dical mg Vomiting Branch (N/V), Starting on 09/05/21 at 1219
Do ses of ondansetro n 16 mg and above need to be administer ed via IV piggyback. For Dose >=24mg ECG monitoring is advisable.
docusate Yes 100mg 100 mg, Unive rs (COLACE) 09-05 Oral, BID, ity o f capsule 100 01:00: First dose [place] mg 00 on [facility] 09/04/21 at Branch 2000, Until Discontinu ed, Routine polyethylen Yes 17g 17 g, Unive rs e glycol 09-04 Oral, ity of 3350 powder 23:30: DAILY, [place] 17 g 00 First dose Medical on [facility] 09/04/21 at 1830, Until Discontinu ed, Routine HYDROcodone 0 Yes 1{tbl} 1 tablet, Univers -acetaminop 09-04 Oral, ity of hen (NORCO) 21:54: Q6HPRN, Lj as 10-325 mg 05 Starting Medica l tablet 1 on [facility] tablet 09/04/21 at 1654, Until Discontinu ed, Routine, Pain (scale 4-6) HYDROmorpho 2021- No .5mg 0.5 mg, Un jb ne 09-04 Slow IV ity of (DILAUDID) 21:53: 21:52 Push, [place] injection 53 :53 Q4HPRN, Medical 0.5 mg Starting Branch on 09/04/21 at 1653, Until Sun09/06/21 at 1652, Routine, Pain (scale 7-10)
U se approved by (Faculty): ADC PROVIDER ondansetron 2021- No 4mg 4 mg, Slow Univers (ZOFRAN 09-04 IV Push, ity of (PF)) 17:30: 16:51 ONCE, On [place] injection 4 00 :00 Sun Medical mg 09/04/21 at Branch 1230, For 1 dose
Do ses of ondansetro n 16 mg and above need to be administer ed via IV piggyback. For Dose >=24mg ECG monitoring is advisable.
flecainide Yes 50mg 50 mg, Unive rs (TAMBOCOR) 09-04 Oral, ity of tablet 50 14:30: DAILY, [place] mg 00 First dose Medical on [facility] 09/04/21 at 0930, Until Discontinu ed, Routine HYDROmorpho 2021- No 1mg 1 mg, Slow Univers ne 09-04 IV Push, ity of (DILAUDID) 11:45: 10:54 ONCE, 1 [place] injection 1 00 :00 dose, On Medi kandis mg [facility] 09/04/21 at 0645, Routine
Use approved by (Faculty): ADC PROVIDER FENTanyl PF No 25ug 25 mcg, Un jb (SUBLIMAZE 09-03 Slow IV ity o f (PF)) 20:45: 19:40 Push, [place] injection 00 :00 ONCE, 1 Medical 25 mcg dose, On Branch [facility] 09/03/21 at 1545, Routine enoxaparin Yes 40mg 40 mg, Unive rs (LOVENOX) 09-03 Subcutaneo ity of injection 20:15: us, Q24H, [place] 40 mg 00 First dose Medical on [facility] Branch 09/03/21 at 1515, Until Discontinu ed, Routine azithromyci 2021- No 500mg 500 mg, IV Univers n 09-03 Piggyback, ity of (ZITHROMAX) 20:15: 21:19 Q24H ABX, [place] 500 mg in 00 :00 3 doses, Medica l NaCl 0.9% First dose Bran ch (NS) 250 mL on Sat VIAL-MATE 09/03/21 at IV 1515, Last piggyback dose on 09/05/21 at 1515, Administer over 60 Minutes, 250 mL
Reas on for Anti-Infec tive: Empiric Therapy for Suspected Infection< br>Empiric Therapy Site: Respirator y
Durat ion of therapy: 72 hours HYDROmorpho 2021- No .5mg 0.5 mg, Un jb ne 09-03 Slow IV ity of (DILAUDID) 03:45: 03:11 Push, [place] injection 00 :00 ONCE, 1 Medical 0.5 mg dose, On Branch 09/02/21 at 2245, Routine
Use approved by (Faculty): ADC PROVIDER HYDROcodone 2021- No 1{tbl} 1 tablet, Univers -acetaminop 09-02 Oral, ity of hen (NORCO) 19:34: 21:54 Q6HPRN, [place] 10-325 mg 44 :16 Starting Medica l tablet 1 on Fri Branch tablet 09/02/21 at 1434, Until 09/04/21 at 1654, Routine, Pain (scale 7-10) zinc Yes 50mg 50 mg, Univers sulfate 09-02 Oral, ity of (ORAZINC) 14:00: DAILY, [place] capsule 50 00 First dose Med ical mg on Fri Branch 09/02/21 at 0900, Until Discontinu ed, Routine cholecalcif Yes 1000U 1,000 [facility] ers usha 09-02 Units, ity of (vitamin 14:00: Oral, [place] D3) tablet 00 DAILY, Medical 1,000 Units First dose Br anch on Sun09/02/21 at 0900, Until Discontinu ed, Routine dexamethaso Yes 6mg 6 mg, IV Un jb ne sod phos 09-02 Push, ity of PF 14:00: DAILY, [place] injection 6 00 First dose Me dical mg on Fri Branch 09/02/21 at 0900, Until Discontinu ed, 1 mL pantoprazol Yes 40mg 40 mg, Univ ers e 09-02 Oral, ity of (PROTONIX) 14:00: DAILY, [place] EC tablet 00 First dose Medi kandis 40 mg on Sun Branch 09/02/21 at 0900, Until Discontinu ed, Routine aspirin 2021-0 Yes 81mg 81 mg, Univers chewable 09-02 Oral, ity of tablet 81 14:00: DAILY, [place] mg 00 First dose Medical on Sun Branch 09/02/21 at 0900, Until Discontinu ed, Routine ascorbic 0 Yes 500mg 500 mg, Unive rs acid 09-02 Oral, BID, ity of (vitamin C) 13:00: First dose [place] (VITAMIN C) 00 on Fri Medica l tablet 500 09/02/21 at [facility] mg 0800, Until Discontinu ed, Routine metoprolol 0 Yes 25mg 25 mg, Unive rs tartrate 09-02 Oral, BID, ity o f (LOPRESSOR) 13:00: First dose [place] tablet 25 00 on Fri Medical mg 09/02/21 at Branch 0800, Until Discontinu ed, Routine fluticasone 0 Yes 1{puff} 1 Puff, Univers propion-tavia 09-02 Inhalation it y of meteroL 06:15: , Q12H, [place] (ADVAIR) 00 First dose Medic al 250-50 (after Branch mcg/dose last inhalation modificati disk 1 Puff on) on Sun09/02/21 at 0115, Until Discontinu ed, Routine melatonin Yes 6mg 6 mg, Univers (MELATIN) 09-02 Oral, QHS, ity of tablet 6 mg 06:00: First dose [place] 00 on Sun Medical 09/02/21 at Branch 0100, Until Discontinu ed, Routine guaiFENesin 0 Yes 200mg 200 mg, Un jb (FENESIN 09-02 Oral, ity of IR) tablet 05:50: Q4HPRN, [place] 200 mg 35 Starting Medical on Sun Branch 09/02/21 at 0050, Until Discontinu ed, Routine, Cough HYDROcodone 0 2021- No 1{tbl} 1 tablet, Univers -acetaminop 09-02 0730 Oral, ity of hen (NORCO 05:50: 19:30 Q6HPRN, [place] 5) 5-325 mg 01 :28 Starting Medi kandis tablet 1 on Sun Branch tablet 09/02/21 at 0050, Until 09/03/21 at 1430, Routine, Pain (scale 4-6) acetaminoph Yes 650mg 650 mg, Un jb en 09-02 Oral, ity of (TYLENOL) 05:49: Q6HPRN, [place] tablet 650 58 Starting Medic al mg on Fri Branch 09/02/21 at 0049, Until Discontinu ed, Routine, Pain (scale 1-3) HYDROcodone 2021- No 1{tbl} 1 tablet, Univers -acetaminop 09-02 Oral, ity of hen (NORCO 03:15: 02:16 ONCE, 1 L[place] as 5) 5-325 mg 00 :00 dose, On Medi kandis tablet 1 [place] Branch tablet 09/01/21 at 2215, EILEEN ketorolac 2021- No 15mg 15 mg, Unive rs (TORADOL) 09-02 Slow IV ity of injection 02:45: 01:43 Push, [place] 15 mg 00 :00 ONCE, 1 Medical dose, On Branch Leah 09/01/21 at 2145, Routine iopamidol 2021- No [id number] 70mL 70 mL, Univers (ISOVUE 09-02 Intravenou ity o f 370-500 mL) 01:25: 01:24 s, ONCE, 1 [place] injection 00 :00 dose, On Medica l 70 mL [facility] Branch Branch 09/01/21 at 2045, Routine levalbutero 2021- No 1.25mg 1.25 mg, Univers l (XOPENEX) 09-02 Inhalation i ty of nebulizer 01:00: 00:06 , ONCE, 1 [place] solution 00 :00 dose, On Medical 1.25 mg [facility] Branch Branch 09/01/21 at 2000, Routine ipratropium 2021- No .5mg 0.5 mg, Un jb (ATROVENT) 09-02 Inhalation it y of 0.02 % 01:00: 00:06 , ONCE, 1 [place] nebulizer 00 :00 dose, On Medica l solution [facility] Branch Branch 0.5 mg 09/01/21 at 2000, EILEEN levalbutero 2021- No 1.25mg 1.25 mg, Univers l (XOPENEX) 09-02 Inhalation i ty of nebulizer 00:30: 23:31 , ONCE, 1 [place] solution 00 :00 dose, On Medical 1.25 mg [place] Branch 09/01/21 at 1930, Routine ipratropium 2021- No .5mg 0.5 mg, Un jb (ATROVENT) 09-02 Inhalation it y of 0.02 % 00:30: 23:31 , ONCE, 1 [place] nebulizer 00 :00 dose, On Medica l solution [place] Branch 0.5 mg 09/01/21 at 1930, EILEEN HYDROcodone 2021- No 1{tbl} 1 tablet, Univers -acetaminop 09-02 Oral, ity of hen (NORCO 00:30: 23:44 ONCE, 1 [place] as 5) 5-325 mg 00 :00 dose, On Medi kandis tablet 1 [place] Branch tablet 09/01/21 at 1930, EILEEN dexamethaso 2021- No 6mg 6 mg, Slow Univers ne sod phos 09-01 IV Push, ity of PF 23:30: 23:44 ONCE, 1 [place] injection 6 00 :00 dose, On Medi kandis mg [place] Branch 09/01/21 at 1830, 1 mL gabapentin Yes 400mg Q.[id number] Take 400 Methodi (NEURONTIN) 5-13 [id number] mg by s t 400 mg 13:46: 3D mouth in Hospita capsule 55 the l morning and 400 mg at noon and 400 mg before bedtime. HYDROcodone Yes [id number] 1{tbl} Q.[id number] Take 1 Methodi -acetaminop 5-[id number] hen (NORCO) 13:46: 3D mouth in Ho spita 5-325 mg 55 the l per tablet morning and 1 tablet at noon and 1 tablet before bedtime.ac jannet pain. fluticasone Yes 1{puff} Q.5D Inhale 1 Methodi propion-tavia 5-[address] meteroL 13:46: (two) Hospita (ADVAIR/ 55 times a l WIXELA day. INHUB) 250-50 mcg/dose DISKUS aspirin Yes 81mg QD Take 81 mg Meth jill (ECOTRIN) 5-[address] 81 MG 13:46: in the Hospita enteric 55 morning. l coated tablet levalbutero Yes 1{ampul Q4H Take 1 M ethodi l (XOPENEX) 5-13 e} ampule by st 0.63 mg/3 13:46: nebulizati [facility] spita mL 55 on every 4 l nebulizer (four) solution hours as needed for wheezing. flecainide Yes 50mg QD Take 50 mg M ethodi (TAMBOCOR) 5-[address] 50 MG 13:46: daily. Hospita tablet 55 l metoprolol Yes 25mg QD Take 25 mg M ethodi succinate 5-[address] XL 13:46: daily. Hospita (TOPROL-XL) 55 l 25 mg 24 hr tablet multivitami Yes 1{tbl} QD Take 1 Me thodi n tablet 5-[address] 13:46: mouth Hospita 55 daily. l cholecalcif Yes 1000U QD Take 1,000 Methodi usha, 5-[address] vitamin D3, 13:46: mouth Hospi ta 1,000 unit 55 daily. l tablet flecainide 2021- No Take by Met hodi acetate 5-04 05-[address] (FLECAINIDE 16:22: 00:00 Hospi ta ORAL) 44 :00 l atorvastati 2021- No 20mg QD Take 20 mg Methodi n (LIPITOR) 04-15-[address] 20 mg 14:06: 00:00 daily. Hospita tablet 42 :00 Default OP l ins metoprolol 2021- No 25mg Take 25 mg Methodi tartrate 04-14-[address] (LOPRESSOR) 08:51: 00:00 Hospi ta 25 mg 26 :00 l tablet flecainide 2021- No 50mg QD Take 50 mg Methodi (TAMBOCOR) 04-14-[address] 50 MG 08:51: 00:00 in the Hospita tablet 26 :00 morning. l ipratropium 2021- No Combivent Methodi -albuteroL 3-10 -[address] (Combivent 08:50: 00:00 20 mcg-100 Hospita Respimat) 00 :00 mcg/actuat l 20-100 ion mcg/actuati solution on mist for inhaler inhalation Inhale 1 puff 4 times a day by inhalation route. ethambutoL 2021- No ethambutol Methodi (MYAMBUTOL) 3-11 07-[address] 400 MG 08:49: 00:00 tablet Hospita tablet 36 :00 Take by l oral route. aclidinium 2021- No Q12H every 12 Me thodi bromide 400 3-11 07-10 (twelve) st mcg/actuati 08:48: 00:00 hours. Hos pan[place] on aerosol 00 :00 l powdr breath activated fluticasone 2021- No 1{puff} Inhale 1 Methodi furoate-laura 3-11 07-[address] anteroL 08:47: 00:00 Hospita (Breo 09 :00 l Ellipta) 200-25 mcg/dose blister with device powder for inhalation montelukast 2021- No montelukas Methodi (SINGULAIR) -11 07-[address] 10 mg 08:46: 00:00 tablet Hospita tablet 38 :00 Take 1 l tablet every day by oral route. predniSONE 2021- No 20mg QD Take 20 mg Methodi (DELTASONE) -11 07-[address] 10 mg 08:46: 00:00 daily. For Hospi ta tablet 14 :00 5 days l ending on 01/19/2021 tiotropium 2021- No Spiriva Met hodi bromide 2.5 3-10 -[address] mcg/actuati 08:46: 00:00 2.5 Hospi ta on mist 01 :00 mcg/actuat l ion solution for inhalation Inhale 2 puffs every day by inhalation route. umeclidiniu 2021- No 1{puff} Inhale 1 Methodi m (Incruse 3-10 03-[address] Ellipta) 08:45: 00:00 Hospita 62.5 54 :00 l mcg/actuati on blister with device moxifloxaci 2021- No moxifloxac Methodi n (AVELOX) 04-14-[address] 400 mg 08:45: 00:00 tablet Hospita tablet 47 :00 Take 1 l tablet every day by oral route. levoFLOXaci 2021- No 750mg QD Take 750 Methodi n -11 07-[address] (LEVAQUIN) 08:45: 00:00 mouth Hospi ta 750 MG 40 :00 daily. Tid l tablet for 5 days, the 2 tabs daily for 5 days, then 1 tab daily for 5 daily HYDROcodone 2021- No 1{capsu 1 capsule. Methodi bitartrate 04-14-10 le} st (Zohydro 08:42: 00:00 Hospita ER) 10 mg 10 :00 l capsule, oral only, ER 12hr codeine-gu[place] 2021- [place] [id number] 5mL Q.[id number] Take 5 mL Methodi ifenesin 04-14- [id number] by mouth 3 st (GUAIFENESI 08:41: 00:00 3D (three) Ho spita N AC) 34 :00 times a l 10-100 mg/5 day as mL liquid needed for cough .acute pain. azithromyci 2021- No azithromyc Methodi n -11 07-[address] (ZITHROMAX) 08:41: 00:00 tablet Hos pan[place] 250 MG 23 :00 l tablet apixaban 2021- No Eliquis 5 Met hodi (Eliquis) 5 - 03-[address] mg tablet 08:41: 00:00 Hospita 13 :00 l calcium 2022- No [id number] 1{tbl} Q.5D Take 1 M ethodi carbonate-v 04-14-[address] itamin D3 00:00: 05:59 mouth 2 Hosp nuha 500 mg-200 00 :00 (two) l unit per times a tablet day with meals. metoprolol 2022-0 Yes 25mg Take 25 mg U nivers tartrate 25 2-10 by mouth 2 it y of mg tablet 03:15: (two) [place] [address] times Medical daily. Branch gabapentin 2022-0 Yes 400mg Take 400 Un jb 400 mg 2-10 mg by ity of capsule 03:15: mouth 3 [place] 04 (three) Medical times [place] daily. pantoprazol 2022-0 Yes 40mg Take 40 mg Univers e 2-10 by mouth ity of (PROTONIX) 03:15: daily. [place] 40 mg EC 04 Medical tablet Branch aspirin 81 2-0 Yes 81mg Take 81 mg U nivers mg chewable 2-10 by mouth ity of tablet 03:15: daily. [place] [address] Medical Branch melatonin 3 2021-0 Yes 6mg Take 6 mg U nivers mg tablet 2-10 by mouth ity of 03:15: at [place] [address] bedtime. Medical Branch metoprolol 2-0 Yes 25mg Take 25 mg U nivers tartrate 25 2-10 by mouth 2 it y of mg tablet 03:15: (two) [place] [address] times Medical daily. Branch gabapentin 2-0 Yes 400mg Take 400 Un jb 400 mg 2-10 mg by ity of capsule 03:15: mouth 3 [place] [address] (three) Medical times [place] daily. pantoprazol 2022-0 Yes 40mg Take 40 mg Univers e 2-10 by mouth ity of (PROTONIX) 03:15: daily. [place] 40 mg EC 04 Medical tablet Branch aspirin 81 2-0 Yes 81mg Take 81 mg U nivers mg chewable 2-10 by mouth ity of tablet 03:15: daily. [place] [address] Medical Branch melatonin 3 2-0 Yes 6mg Take 6 mg U nivers mg tablet 2-10 by mouth ity of 03:15: at [place] [address] bedtime. Medical Branch metoprolol 2022-0 Yes 25mg Take 25 mg U nivers tartrate 25 2-10 by mouth 2 it y of mg tablet 03:15: (two) [place] [address] times Medical daily. Branch gabapentin 2022-0 Yes 400mg Take 400 Un jb 400 mg 2-10 mg by ity of capsule 03:15: mouth 3 [place] (three) Medical times [place] daily. pantoprazol 2022-0 Yes 40mg Take 40 mg Univers e 2-10 by mouth ity of (PROTONIX) 03:15: daily. [place] 40 mg EC 04 Medical tablet Branch aspirin 81 2021-0 Yes 81mg Take 81 mg U nivers mg chewable 2-10 by mouth ity of tablet 03:15: daily. [place] Medical Branch melatonin 3 2021-0 Yes 6mg Take 6 mg U nivers mg tablet 2-10 by mouth ity of 03:15: at [place] [address] bedtime. Medical Branch metoprolol 2021-0 Yes 25mg Take 25 mg U nivers tartrate 25 2-10 by mouth 2 it y of mg tablet 03:15: (two) [place] 04 times Medical daily. Branch gabapentin 2021-0 Yes 400mg Take 400 Un jb 400 mg 2-10 mg by ity of capsule 03:15: mouth 3 [place] [address] (three) Medical times [place] daily. pantoprazol 2021-0 Yes 40mg Take 40 mg Univers e 2-10 by mouth ity of (PROTONIX) 03:15: daily. [place] 40 mg EC Medical tablet Branch aspirin 81 2021-0 Yes 81mg Take 81 mg U nivers mg chewable 2-10 by mouth ity of tablet 03:15: daily. [place] Medical Branch melatonin 3 2021-0 Yes 6mg Take 6 mg U nivers mg tablet 2-10 by mouth ity of 03:15: at [place] [address] bedtime. Medical Branch metoprolol 2021-0 Yes 25mg Take 25 mg U nivers tartrate 25 2-10 by mouth 2 it y of mg tablet 03:15: (two) [place] times Medical daily. Branch gabapentin 2021-0 Yes 400mg Take 400 Un jb 400 mg 2-10 mg by ity of capsule 03:15: mouth 3 [place] 04 (three) Medical times [place] daily. pantoprazol 2021-0 Yes 40mg Take 40 mg Univers e 2-10 by mouth ity of (PROTONIX) 03:15: daily. [place] 40 mg EC 04 Medical tablet Branch aspirin 81 2021-0 Yes 81mg Take 81 mg U nivers mg chewable 2-10 by mouth ity of tablet 03:15: daily. [place] Medical Branch melatonin 3 2021-0 Yes 6mg Take 6 mg U nivers mg tablet 2-10 by mouth ity of 03:15: at [place] [address] bedtime. Medical Branch metoprolol 2021-0 Yes 25mg Take 25 mg U nivers tartrate 25 2-10 by mouth 2 it y of mg tablet 03:15: (two) [place] 04 times Medical daily. Branch gabapentin 2021-0 Yes 400mg Take 400 Un jb 400 mg 2-10 mg by ity of capsule 03:15: mouth 3 [place] 04 (three) Medical times Branch daily. pantoprazol 2021-0 Yes 40mg Take 40 mg Univers e 2-10 by mouth ity of (PROTONIX) 03:15: daily. [place] 40 mg EC 04 Medical tablet Branch aspirin 81 0 Yes 81mg Take 81 mg U nivers mg chewable 2-10 by mouth ity of tablet 03:15: daily. [place] Medical Branch melatonin 3 2021-0 Yes 6mg Take 6 mg U nivers mg tablet 2-10 by mouth ity of 03:15: at [place] [address] bedtime. Medical Branch metoprolol 2021-0 Yes 25mg Take 25 mg U nivers tartrate 25 2-10 by mouth 2 it y of mg tablet 03:15: (two) [place] 04 times Medical daily. Branch gabapentin 2021-0 Yes 400mg Take 400 Un jb 400 mg 2-10 mg by ity of capsule 03:15: mouth 3 [place] 04 (three) Medical times [place] daily. pantoprazol 2021-0 Yes 40mg Take 40 mg Univers e 2-10 by mouth ity of (PROTONIX) 03:15: daily. [place] 40 mg EC 04 Medical tablet Branch aspirin 81 2021-0 Yes 81mg Take 81 mg U nivers mg chewable 2-10 by mouth ity of tablet 03:15: daily. [place] Medical Branch melatonin 3 2021-0 Yes 6mg Take 6 mg U nivers mg tablet 2-10 by mouth ity of 03:15: at [place] [address] bedtime. Medical Branch aspirin 81 2021-0 Yes 81mg Take 81 mg U nivers mg chewable 2-08 by mouth ity of tablet 15:50: daily. [place] [address] Medical Branch melatonin 3 2021-0 Yes 6mg Take 6 mg U nivers mg tablet 2-08 by mouth ity of 15:50: at [place] [address] bedtime. Medical Branch fluticasone 2021-0 Yes 1{puff} Inhale 1 Univers propion-tavia 2-08 Puff every it y of meteroL 15:50: 12 [place] (ADVAIR 10 (twelve) Medical DISKUS) hours. Branch 250-50 mcg/dose inhalation disk flecainide 2021-0 Yes Take by [facility] ers acetate 2-08 mouth 2 ity of (FLECAINIDE 15:50: (two) [place] ORAL) 10 times Medical daily. Branch HYDROcodone 2021-0 Yes 1{tbl} Take 1 Un jb -acetaminop 2-08 tablet by ity of hen (NORCO) 15:50: mouth 3 Lj as 5-325 mg 10 (three) Medical tablet times Branch daily. fluticasone 2021-0 Yes 1{puff} Inhale 1 Univers propion-tavia 2-08 Puff every it y of meteroL 15:50: 12 [place] (ADVAIR 10 (twelve) Medical DISKUS) hours. Branch 250-50 mcg/dose inhalation disk flecainide 0 Yes Take by [facility] ers acetate 2-08 mouth 2 ity of (FLECAINIDE 15:50: (two) [place] ORAL) 10 times Medical daily. Branch HYDROcodone 2021-0 Yes 1{tbl} Take 1 Un jb -acetaminop 2-08 tablet by ity of hen (NORCO) 15:50: mouth 3 Lj as 5-325 mg 10 (three) Medical tablet times Branch daily. fluticasone 2021-0 Yes 1{puff} Inhale 1 Univers propion-tavia 2-08 Puff every it y of meteroL 15:50: 12 [place] (ADVAIR 10 (twelve) Medical DISKUS) hours. Branch 250-50 mcg/dose inhalation disk flecainide 2021-0 Yes Take by [facility] ers acetate 2-08 mouth 2 ity of (FLECAINIDE 15:50: (two) [place] ORAL) 10 times Medical daily. Branch HYDROcodone 2021-0 Yes 1{tbl} Take 1 Un jb -acetaminop 2-08 tablet by ity of hen (NORCO) 15:50: mouth 3 Lj as 5-325 mg 10 (three) Medical tablet times Branch daily. fluticasone 2021-0 Yes 1{puff} Inhale 1 Univers propion-tavia 2-08 Puff every it y of meteroL 15:50: 12 [place] (ADVAIR 10 (twelve) Medical DISKUS) hours. Branch 250-50 mcg/dose inhalation disk flecainide 0 Yes Take by [facility] ers acetate 2-08 mouth 2 ity of (FLECAINIDE 15:50: (two) [place] ORAL) 10 times Medical daily. Branch HYDROcodone 2021-0 Yes 1{tbl} Take 1 Un jb -acetaminop 2-08 tablet by ity of hen (NORCO) 15:50: mouth 3 Lj as 5-325 mg 10 (three) Medical tablet times Branch daily. fluticasone 2021-0 Yes 1{puff} Inhale 1 Univers propion-tavia 2-08 Puff every it y of meteroL 15:50: 12 [place] (ADVAIR 10 (twelve) Medical DISKUS) hours. Branch 250-50 mcg/dose inhalation disk flecainide 0 Yes Take by [facility] ers acetate 2-08 mouth 2 ity of (FLECAINIDE 15:50: (two) [place] ORAL) 10 times Medical daily. Branch HYDROcodone 2021-0 Yes 1{tbl} Take 1 Un jb -acetaminop 2-08 tablet by ity of hen (NORCO) 15:50: mouth 3 Lj as 5-325 mg 10 (three) Medical tablet times Branch daily. fluticasone 2021-0 Yes 1{puff} Inhale 1 Univers propion-tavia 2-08 Puff every it y of meteroL 15:50: 12 [place] (ADVAIR 10 (twelve) Medical DISKUS) hours. Branch 250-50 mcg/dose inhalation disk flecainide 0 Yes Take by [facility] ers acetate 2-08 mouth 2 ity of (FLECAINIDE 15:50: (two) [place] ORAL) 10 times Medical daily. Branch HYDROcodone 0 Yes 1{tbl} Take 1 Un jb -acetaminop 2-08 tablet by ity of hen (NORCO) 15:50: mouth 3 Lj as 5-325 mg 10 (three) Medical tablet times Branch daily. fluticasone 2021-0 Yes 1{puff} Inhale 1 Univers propion-tavia 2-08 Puff every it y of meteroL 15:50: 12 [place] (ADVAIR 10 (twelve) Medical DISKUS) hours. Branch 250-50 mcg/dose inhalation disk flecainide 2022-0 Yes Take by [facility] ers acetate 2-08 mouth 2 ity of (FLECAINIDE 15:50: (two) [place] ORAL) 10 times Medical daily. Branch HYDROcodone Yes 1{tbl} Take 1 Un jb -acetaminop 2-08 tablet by ity of hen (NORCO) 15:50: mouth 3 Lj as 5-325 mg 10 (three) Medical tablet times Branch daily. fluticasone 2021-0 Yes 1{puff} Inhale 1 Univers propion-tavia 2-08 Puff every it y of meteroL 15:50: 12 [place] (ADVAIR 10 (twelve) Medical DISKUS) hours. Branch 250-50 mcg/dose inhalation disk flecainide Yes Take by [facility] ers acetate 2-08 mouth 2 ity of (FLECAINIDE 15:50: (two) [place] ORAL) 10 times Medical daily. Branch HYDROcodone Yes 1{tbl} Take 1 Un jb -acetaminop 2-08 tablet by ity of hen (NORCO) 15:50: mouth 3 Lj as 5-325 mg 10 (three) Medical tablet times Branch daily. fluticasone 0 Yes 1{puff} Inhale 1 Univers propion-tavia 2-08 Puff every it y of meteroL 15:50: 12 [place] (ADVAIR 10 (twelve) Medical DISKUS) hours. Branch 250-50 mcg/dose inhalation disk flecainide Yes Take by [facility] ers acetate 2-08 mouth 2 ity of (FLECAINIDE 15:50: (two) [place] ORAL) 10 times Medical daily. Branch HYDROcodone Yes 1{tbl} Take 1 Un jb -acetaminop 2-08 tablet by ity of hen (NORCO) 15:50: mouth 3 Lj as 5-325 mg 10 (three) Medical tablet times Branch daily. metoprolol 2021-0 Yes 25mg Take 25 mg U nivers tartrate 25 2-08 by mouth 2 it y of mg tablet 15:50: (two) [place] 10 times Medical daily. Branch gabapentin 2021-0 Yes 400mg Take 400 Un jb 400 mg 2-08 mg by ity of capsule 15:50: mouth 3 [place] 10 (three) Medical times Branch daily. pantoprazol 2021-0 Yes 40mg Take 40 mg Univers e 2-08 by mouth ity of (PROTONIX) 15:50: daily. [place] 40 mg EC 10 Medical tablet Branch simethicone 2021-0 Yes 120mg 125 mg Uni vers (MYLICON) 2-08 (rounded ity of chewable 03:16: from 120 [place] tablet 125 38 mg), Oral, Med ical mg TIDPRN, Branch Starting on Sun03/14/21 at 2116, Until Discontinu ed, Routine, Gas loperamide 2021-0 Yes [id number] 2mg Take 1 U nivers 2 mg 2-08 capsule by ity of capsule 00:00: mouth [place] 00 every 4 Medical (four) Branch hours as needed for Diarrhea. simethicone 2021-0 Yes [id number] 125mg Take 1 Univers 125 mg 2-08 tablet by ity of chewable 00:00: mouth 3 [place] tablet 00 (three) Medical times Branch daily as needed for Gas. loperamide 2021-0 Yes [id number] 2mg Take 1 U nivers 2 mg 2-08 capsule by ity of capsule 00:00: mouth [place] 00 every 4 Medical (four) Branch hours as needed for Diarrhea. simethicone 2021-0 Yes [id number] 125mg Take 1 Univers 125 mg 2-08 tablet by ity of chewable 00:00: mouth 3 [place] tablet 00 (three) Medical times Branch daily as needed for Gas. loperamide 2021-0 Yes [id number] 2mg Take 1 U nivers 2 mg 2-08 capsule by ity of capsule 00:00: mouth [place] 00 every 4 Medical (four) Branch hours as needed for Diarrhea. simethicone 2021-0 Yes [id number] 125mg Take 1 [facility] 125 mg 2-08 tablet by ity of chewable 00:00: mouth 3 [place] tablet 00 (three) Medical times Branch daily as needed for Gas. loperamide 2021-0 Yes [id number] 2mg Take 1 U nivers 2 mg 2-08 capsule by ity of capsule 00:00: mouth [place] 00 every 4 Medical (four) Branch hours as needed for Diarrhea. simethicone 2021-0 Yes [id number] 125mg Take 1 [facility] 125 mg 2-08 tablet by ity of chewable 00:00: mouth 3 [place] tablet 00 (three) Medical times Branch daily as needed for Gas. loperamide 2022-0 Yes [id number] 2mg Take 1 U nivers 2 mg 2-08 capsule by ity of capsule 00:00: mouth [place] 00 every 4 Medical (four) Branch hours as needed for Diarrhea. simethicone 2022-0 Yes [id number] 125mg Take 1 [facility] 125 mg 2-08 tablet by ity of chewable 00:00: mouth 3 [place] tablet 00 (three) Medical times Branch daily as needed for Gas. loperamide 2022-0 Yes [id number] 2mg Take 1 U nivers 2 mg 2-08 capsule by ity of capsule 00:00: mouth [place] 00 every 4 Medical (four) Branch hours as needed for Diarrhea. simethicone 2022-0 Yes [id number] 125mg Take 1 [facility] 125 mg 2-08 tablet by ity of chewable 00:00: mouth 3 [place] tablet 00 (three) Medical times Branch daily as needed for Gas. loperamide 2-0 Yes [id number] 2mg Take 1 U nivers 2 mg 2-08 capsule by ity of capsule 00:00: mouth [place] 00 every 4 Medical (four) Branch hours as needed for Diarrhea. simethicone 2022-0 Yes [id number] 125mg Take 1 [facility] 125 mg 2-08 tablet by ity of chewable 00:00: mouth 3 [place] tablet 00 (three) Medical times Branch daily as needed for Gas. loperamide 2-0 Yes [id number] 2mg Take 1 U nivers 2 mg 2-08 capsule by ity of capsule 00:00: mouth [place] 00 every 4 Medical (four) Branch hours as needed for Diarrhea. simethicone 2022-0 Yes [id number] 125mg Take 1 [facility] 125 mg 2-08 tablet by ity of chewable 00:00: mouth 3 [place] tablet 00 (three) Medical times Branch daily as needed for Gas. loperamide 2022-0 2022- No [id number] 2mg Take 1 [facility] 2 mg 2-08 07-29 capsule by ity of capsule 00:00: 00:00 mouth [place] 00 :00 every 4 Medical (four) Branch hours as needed for Diarrhea. simethicone 2022-0 2022- No [id number] 125mg Take 1 [facility] 125 mg 2-08 07-29 tablet by ity of chewable 00:00: 00:00 mouth 3 [place] tablet 00 :00 (three) Medical times Branch daily as needed for Gas. lactobacill 2021-0 2- No [id number] .5mg Take 1 [facility] us 2-11 tablet by ity of acidophilus 00:00: 05:59 mouth 2 [place] 00 :00 (two) Medical times Branch daily for 30 days. lactobacill 2021-0 2022- No [id number] .5mg Take 1 [facility] us 03-15-11 tablet by ity of acidophilus 00:00: 05:59 mouth 2 [place] 00 :00 (two) Medical times Branch daily for 30 days. lactobacill 2021-0 2- No [id number] .5mg Take 1 [facility] us 03-15-11 tablet by ity of acidophilus 00:00: 05:59 mouth 2 [place] 00 :00 (two) Medical times Branch daily for 30 days. lactobacill 2021-0 2021- No [id number] .5mg Take 1 [facility] us 03-15-11 tablet by ity of acidophilus 00:00: 05:59 mouth 2 [place] 00 :00 (two) Medical times Branch daily for 30 days. predniSONE 2021-0 2021- No [id number] Take 4 [facility] 10 mg 2-24 tablets by ity of tablet 00:00: 05:59 mouth [place] 00 :00 daily for Medical 3 days, Branch THEN 3 tablets daily for 3 days, THEN 2 tablets daily for 3 days, THEN 1 tablet daily for 3 days, THEN 0.5 tablets daily for 3 days. predniSONE 2021-0 2021- No [id number] Take 4 [facility] 10 mg 2-24 tablets by ity of tablet 00:00: 05:59 mouth [place] 00 :00 daily for Medical 3 days, Branch THEN 3 tablets daily for 3 days, THEN 2 tablets daily for 3 days, THEN 1 tablet daily for 3 days, THEN 0.5 tablets daily for 3 days. predniSONE 2021-0 2021- No [id number] Take 4 [facility] 10 mg 2-09 06-24 tablets by ity of tablet 00:00: 05:59 mouth [place] 00 :00 daily for Medical 3 days, Branch THEN 3 tablets daily for 3 days, THEN 2 tablets daily for 3 days, THEN 1 tablet daily for 3 days, THEN 0.5 tablets daily for 3 days. levoFLOXaci 2021- No [id number] 750mg Take 1 [facility] n 750 mg 03-15 tablet by ity o f tablet 00:00: 05:59 mouth [place] 00 :00 every 24 Medical ( Branch ur) hours for 5 days. levoFLOXaci 2021- No [id number] 750mg Take 1 [facility] n 750 mg 03-15 tablet by ity o f tablet 00:00: 05:59 mouth [place] 00 :00 every 24 Medical ( [place] ur) hours for 5 days. KCL 2021- No 40meq 40 mEq, Univers (KLOR-CON 03-14 Oral, ity of M20) tablet 18:45: 18:59 ONCE, 1 [place] 40 mEq 00 :00 dose, On Medical 03/14/21 Branch at 1245, Routine magnesium 2021- No 2g 2 g, IV Univ ers sulfate in 03-14 Piggyback, it y of water 2 18:45: 19:00 ONCE, 1 [place] gram/50 mL 00 :00 dose, On Medic al (4 %) 03/14/21 Branch infusion 2 at 1245, g Routine lactobacill Yes .5mg 0.5 mg, Uni vers us 03-14 Oral, BID, ity of acidophilus 02:00: First dose [place] tablet 0.5 00 on [facility] mg 03/13/21 at Branch 2000, Until Discontinu ed, Routine loperamide Yes 2mg 2 mg, Univer s (IMODIUM 03-13 Oral, ity of A-D) 20:56: Q4HPRN, [place] capsule 2 35 Starting Medica l mg on Sun Branch 03/13/21 at 1456, Until Discontinu ed, Routine, Diarrhea KCL 2021- No 40meq 40 mEq, Univers (KLOR-CON 03-13 Oral, ity of M20) tablet 15:30: 15:24 ONCE, 1 [place] 40 mEq 00 :00 dose, On Medical 03/13/21 Branch at 0930, Routine HYDROcodone Yes 1{tbl} 1 tablet, Univers -acetaminop 2-06 Oral, ity of hen (NORCO) 01:15: Q4HPRN, [place] 10-325 mg 00 Starting Medica l tablet 1 on Sun Branch tablet 03/12/21 at 1915, Until Discontinu ed, Routine, Pain (scale 4-6) docusate 2021-0 Yes 100mg 100 mg, Unive rs (COLACE) 2-05 Oral, ity of capsule 100 02:00: DAILY, [place] mg 00 First dose Medical on Sun Branch 03/11/21 at 2000, Until Discontinu ed, Routine metoprolol 2021-0 Yes 25mg 25 mg, Unive rs tartrate 2-04 Oral, ity of (LOPRESSOR) 15:00: DAILY, [place] tablet 25 00 First dose Medi kandis mg (after Branch last modificati on) on Sun03/11/21 at 0900, Until Discontinu ed, Routine flecainide 2021-0 Yes 50mg 50 mg, Unive rs (TAMBOCOR) 2-04 Oral, ity of tablet 50 15:00: DAILY, [place] mg 00 First dose Medical (after Branch last modificati on) on Sun03/11/21 at 0900, Until Discontinu ed, Routine predniSONE 2021-0 Yes 50mg 50 mg, Unive rs (DELTASONE) 2-04 Oral, ity of tablet 50 15:00: DAILY, [place] mg 00 First dose Medical on Sun Branch 03/11/21 at 0900, Until Discontinu ed, Routine pantoprazol 2021-0 Yes 40mg 40 mg, Univ ers e 2-04 Oral, ity of (PROTONIX) 15:00: DAILY, [place] EC tablet 00 First dose Medi kandis 40 mg on Sun Branch 03/11/21 at 0900, Until Discontinu ed, Routine aspirin 2021-0 Yes 81mg 81 mg, Univers chewable 2-04 Oral, ity of tablet 81 15:00: DAILY, [place] mg 00 First dose Medical on Sun Branch 03/11/21 at 0900, Until Discontinu ed, Routine levoFLOXaci 2021-0 Yes 500mg 500 mg, IV Univers n in D5W 2-04 Piggyback, ity o f (LEVAQUIN) 08:30: Administer [place] 500 mg/100 00 over 60 Medica l mL Minutes, Branch Piggyback Q24H ABX, 500 mg First dose on Sun03/11/21 at 0230, Until Discontinu ed, EILEEN
Re ason for Anti-Infec tive: Empiric Therapy for Suspected Infection< br>Empi jorge luis Therapy Site: Respirator y
Durat ion of therapy: 7 days piperacilli 2021- No 4.5g 4.5 g, IV Univers n-tazobacta 03-11 Piggyback, i ty of m (ZOSYN) 08:30: 21:23 Q6H ABX, Lj as 4.5 g in 00 :38 First dose Medic al NaCl 0.9% on Sun Branch (NS) 100 mL 03/11/21 at MINI-BAG 0230, Until Discontinu ed, Administer over 30 Minutes, 100 mL
Reas on for Anti-Infec tive: Empiric Therapy for Suspected Infection< br>Empi jorge luis Therapy Site: Respirator y
Durat ion of therapy: 7 days Vancomycin 2021- No 15mg/kg 750 mg U nivers 750 mg in 03-11 (rounded ity o f NaCl 0.9% 07:30: 19:07 from 843 Lj as (NS) 250 mL 00 :52 mg = 15 Medic al VIAL-MATE mg/kg Branch ?56.2 kg), IV Piggyback, Q12H ABX, First dose on Sun03/11/21 at 0130, Until Discontinu ed, Administer over 60 Minutes, 250 mL
Reas on for Anti-Infec tive: Empiric Therapy for Suspected Infection< br>Empiric Therapy Site: Respirator y
Durat ion of therapy: 7 days HYDROmorpho 2021- No .5mg 0.5 mg, Un jb ne 03-11 Slow IV ity of (DILAUDID) 06:39: 06:38 Push, [place] injection 34 :34 Q4HPRN, Medical 0.5 mg Starting Branch on Sun03/11/21 at 0039, Until 03/13/21 at 0038, Routine, Pain (scale 7-10)
U se approved by (Faculty): ADC PROVIDER melatonin Yes 6mg 6 mg, Univers (MELATIN) 2-04 Oral, QHS, ity of tablet 6 mg 03:00: First dose [place] 00 on [facility] Branch Medical 03/10/21 at Branch 2100, Until Discontinu ed, Routine fluticasone Yes 1{puff} 1 Puff, Univers propion-tavia 04 Inhalation it y of meteroL 02:00: , Q12H, [place] (ADVAIR) 00 First dose Medic al 250-50 on [facility] mcg/dose 03/10/21 at inhalation 2000, disk 1 Puff Until Discontinu ed, Routine
Use approved by (Faculty and pager): ADC PROVIDER enoxaparin Yes 30mg 30 mg, Unive rs (LOVENOX) 03-10 Subcutaneo ity of injection 23:00: us, DAILY, [place] 30 mg 00 First dose Medical on [facility] 03/10/21 at 1700, Until Discontinu ed, Routine HYDROcodone 2021- No 1{tbl} 1 tablet, Univers -acetaminop 03-10 Oral, ity of hen (NORCO) 22:11: 01:14 Q6HPRN, [place] 10-325 mg 49 :28 Starting Medica l tablet 1 on [facility] tablet 03/10/21 at 1611, Until 03/12/21 at 1914, Routine, Pain (scale 4-6) acetaminoph Yes 650mg 650 mg, Un jb en 03-10 Oral, ity of (TYLENOL) 21:43: Q6HP, [place] tablet 650 47 Starting Medic al mg on [facility] Branch Branch 03/10/21 at 1543, Until Discontinu ed, Routine, Pain (scale 1-3) methylpredn 2021- No 125mg 125 mg, U nivers isolone sod 03-10 Intravenou i ty of succ 18:00: 02:02 s, Q6H, [place] (SOLU-MEDRO 00 :25 First dose Me dical L) on [facility] Branch Branch injection 03/10/21 at 125 mg 1200, Until Discontinu ed, Routine azithromyci 2021- No 500mg 500 mg, IV Univers n 2-03 02-04 Piggyback, ity of (ZITHROMAX) 17:30: 07:24 Q24H ABX, [place] 500 mg in 00 :33 First dose Medi kandis NaCl 0.9% on [place] Branch (NS) 250 mL 03/10/21 at VIAL-MATE 1130, IV Until piggyback Discontinu ed, Administer over 60 Minutes, 250 mL
Reas on for Anti-Infec tive: Empiric Therapy for Suspected Infection< br>Empiric Therapy Site: Respirator y
Durat ion of therapy: 72 hours ondansetron 2021- No 4mg 4 mg, Slow Univers (ZOFRAN 03-10 IV Push, ity of (PF)) 17:30: 16:28 ONCE, 1 [place] injection 4 00 :00 dose, On Medi kandis mg [place] 03/10/21 Branch at 1130, EILEEN FENTanyl PF 2021- No 25ug 25 mcg, Un jb (SUBLIMAZE 03-10 Slow IV ity o f (PF)) 17:30: 16:30 Push, [place] injection 00 :00 ONCE, 1 Medical 25 mcg dose, On Branch [place] 03/10/21 at 1130, STAT HYDROcodone 2021- No 1{tbl} 1 tablet, Univers -acetaminop 03-10 Oral, ity of hen (NORCO) 17:30: 16:29 ONCE, 1 [place] 10-325 mg 00 :00 dose, On Medica l tablet 1 [place] 03/10/21 Branc h tablet at 1130, Routine cefTRIAXone 2021- No 1000mg 1,000 mg, Univers (ROCEPHIN) 03-10 IV ity of 1,000 mg in 17:30: 17:00 Piggyback, [place] NaCl 0.9% 00 :00 ONCE, 1 Medical (NS) 50 mL dose, On Branc h MINI-BAG [place] 03/10/21 at 1130, Administer over 30 Minutes, 50 mL
R moe for Anti-Infec tive: Empiric Therapy for Suspected Infection< br>Empiric Therapy Site: Respirator y
Durat ion of therapy: 72 hours pantoprazol 2020-02- No [id number] 40mg Take 1 Univers e 40 mg EC 03-18- tablet by ity of tablet 00:00: 05:59 mouth [place] 00 :00 daily for Medical 30 days. Branch predniSONE 2020-02- No [id number] 20mg Take 1 [facility] 20 mg 03-18 12-17 tablet by ity of tablet 00:00: 05:59 mouth [place] 00 :00 daily for Medical 5 days. Branch fluticasone 2020-02 Yes 1{puff} Inhale 1 Univers propion-tavia 2-10 Puff every it y of meteroL 15:23: 12 [place] (ADVAIR 08 (twelve) Medical DISKUS) hours. Branch 250-50 mcg/dose inhalation disk flecainide 2020-02 Yes Take by Uni vers acetate 2-10 mouth 2 ity of (FLECAINIDE 15:23: (two) [place] ORAL) 08 times Medical daily. Branch HYDROcodone 2020-02 Yes 1{tbl} Take 1 Un jb -acetaminop 2-10 tablet by ity of hen (NORCO) 15:23: mouth 3 Lj as 5-325 mg 08 (three) Medical tablet times Branch daily. fluticasone 2020-02 Yes 1{puff} Inhale 1 Univers propion-tavia 2-10 Puff every it y of meteroL 15:23: 12 [place] (ADVAIR 08 (twelve) Medical DISKUS) hours. Branch 250-50 mcg/dose inhalation disk flecainide 2020-02 Yes Take by Univ ers acetate 2-10 mouth 2 ity of (FLECAINIDE 15:23: (two) [place] ORAL) 08 times Medical daily. Branch HYDROcodone 2020-02 Yes 1{tbl} Take 1 Un jb -acetaminop 2-10 tablet by ity of hen (NORCO) 15:23: mouth 3 Lj as 5-325 mg 08 (three) Medical tablet times Branch daily. fluticasone 2020-02 Yes 1{puff} Inhale 1 Univers propion-tavia 2-10 Puff every it y of meteroL 15:23: 12 [place] (ADVAIR 08 (twelve) Medical DISKUS) hours. Branch 250-50 mcg/dose inhalation disk flecainide 2020-02 Yes Take by Univ ers acetate 2-10 mouth 2 ity of (FLECAINIDE 15:23: (two) [place] ORAL) 08 times Medical daily. Branch HYDROcodone 2020-02 Yes 1{tbl} Take 1 Un jb -acetaminop 2-10 tablet by ity of hen (NORCO) 15:23: mouth 3 Lj as 5-325 mg 08 (three) Medical tablet times Branch daily. gabapentin 2020-02- No [id number] 300mg Take 1 [facility] 300 mg 2-10 01-10 capsule by ity of capsule 00:00: 05:59 mouth 3 [place] 00 :00 (three) Medical times Branch daily for 30 days. melatonin 3 2020-02- No [id number] 3mg Take 1 Univers mg tablet 2-10 01-10 tablet by ity of 00:00: 05:59 mouth at [place] 00 :00 bedtime Medical for 30 Branch days. metoprolol 2020-02- No [id number] 50mg Take 1 Univers succinate 2-10 01-10 tablet by ity of XL 50 mg 24 00:00: 05:59 mouth [place] hr tablet 00 :00 every 12 Medica l (twelve) Branch hours for 30 days. atorvastati 2020-02- No [id number] 20mg Take 1 Univers n 20 mg 2-10 01-10 tablet by ity of tablet 00:00: 05:59 mouth at [place] 00 :00 bedtime Medical for 30 Branch days. azithromyci 2020-02- No [id number] 500mg Take 1 Univers n 500 mg 2-10 12-18 tablet by ity o f tablet 00:00: 05:59 mouth [place] 00 :00 daily for Medical 7 days. Branch docusate 2020-02- No [id number] 100mg Take 1 Univers 100 mg 2-10 12-16 capsule by ity of capsule 00:00: 05:59 mouth 2 [place] 00 :00 (two) Medical times Branch daily for 5 days. aspirin 81 2020-02- No [id number] 81mg Take 1 Univers mg chewable 1-23 12-24 tablet by it y of tablet 00:00: 05:59 mouth [place] 00 :00 daily for Medical 30 days. Branch metoprolol 2020-02- No 12.5mg Q.5D Take 12.5 Methodi succinate 0-25 10-[address] XL 13:19: 00:00 mouth 2 Hospita (TOPROL-XL) 36 :00 (two) l 25 mg 24 hr times a tablet day. flecainide 2020-02 No Take by Met hodi acetate 0-25 10-[address] (FLECAINIDE 13:19: 00:00 Hospi ta ORAL) 36 :00 l budesonide- 2020-02- No Q.5D Inhale 2 M ethodi glycopyr-fo 0-25 10-25 (two) st rmoterol 12:07: 00:00 times a Hospi ta (Breztri 46 :00 day. 2 l Aerosphere) sprays 160-9-4.8 mcg/actuati on HFA aerosol inhaler aspirin 2020-02 No 81mg QD Take 81 mg Met hodi (ECOTRIN) 0-25 10-[address] 81 MG 12:07: 00:00 daily. Hospita enteric 26 :00 l coated tablet flecainide 2020-02 No 50mg Q.5D Take 1 Meth jill (TAMBOCOR) 0-25 03-11 tablet (50 st 50 MG 00:00: 00:00 mg total) Hospit a tablet 00 :00 by mouth 2 l (two) times a day. metoprolol 2020-02 No 12.5mg Q.5D Take 0.5 Methodi succinate 0-25 03-[address] XL 00:00: 00:00 (12.5 mg Hospita (TOPROL-XL) 00 :00 total) by l 25 mg 24 hr mouth 2 tablet (two) times a day. cholecalcif 2020-02 Yes [id number] 1999U Take 2 Univers usha, 0-24 tablets by ity of vitamin D3, 00:00: mouth [place] 25 mcg 00 daily. Medical (1,000 Branch unit) tablet cholecalcif 2020-02 Yes [id number] 2000U Take 2 Univers usha, 0-24 tablets by ity of vitamin D3, 00:00: mouth [place] 25 mcg 00 daily. Medical (1,000 Branch unit) tablet cholecalcif 2020-02 Yes [id number] 2000U Take 2 Univers usha, 0-24 tablets by ity of vitamin D3, 00:00: mouth [place] 25 mcg 00 daily. Medical (1,000 Branch unit) tablet cholecalcif 2020-02- No 2{tbl} QD Take 2 M ethodi usha, 0-24 03-[address] vitamin D3, 00:00: 00:00 mouth Hosp nuha 1,000 unit 00 :00 daily. l tablet cholecalcif 2020-02- No [id number] 2000U Take 2 Univers usha, 0-24 02-03 tablets by ity of vitamin D3, 00:00: 00:00 mouth [place] 25 mcg 00 :00 daily. Medical (1,000 Branch unit) tablet codeine-gua 2020-02 Yes 10mL Take 10 mL Univers ifenesin 0-23 by mouth ity of 10-100 mg/5 00:00: every 6 Lj as mL oral 00 (six) Medical solution hours as Branch needed for Cough. Indication s: severe cough codeine-gua 2020-02 Yes 10mL Take 10 mL Univers ifenesin 0-23 by mouth ity of 10-100 mg/5 00:00: every 6 Lj as mL oral 00 (six) Medical solution hours as Branch needed for Cough. Indication s: severe cough codeine-gua 2020-02 Yes 10mL Take 10 mL Univers ifenesin 0-23 by mouth ity of 10-100 mg/5 00:00: every 6 Lj as mL oral 00 (six) Medical solution hours as Branch needed for Cough. Indication s: severe cough codeine-gua 2020-02- No 10mL Take 10 mL Univers ifenesin 0-23 02-03 by mouth ity of 10-100 mg/5 00:00: 00:00 every 6 [place] mL oral 00 :00 (six) Medical solution hours as Branch needed for Cough. Indication s: severe cough ipratropium 2021- No [id number] .5mg Q6H Take 2.5 Methodi (ATROVENT) 8-31 03-10 mL (0.[address] 0.02 % 00:00: 00:00 total) by Hospi ta nebulizer 00 :00 nebulizati l solution on Every 6 hours while awake as needed (RT) for wheezing or shortness of breath. pantoprazol Yes 40mg QD Take 40 mg Methodi e 2-[address] (PROTONIX) 00:00: in the Hospi ta 40 MG EC 00 morning. l tablet PARoxetine 2017-02- No 1 capsule M ethodi (PAXIL) 10 03-[address] MG tablet 00:00: 00:00 Hospita 00 :00 l Paroxetine Paroxetine 2017-02 Yes Artur 1 capsule Common Mesylate Mesylate 03-05 Rekhi at bedtime Spirit 00:00: - [facility] 00 [facility] PARoxetine 2017-02- No 1 capsule M ethodi mesylate,me 03-05 at bedtime s t nop.sym, 00:00: 00:00 Hospita 7.5 mg 00 :00 l capsule amikacin 2021- No Mon,Sun,Fr Me thodi (AMIKIN) 05-[address] 500 mg/2 mL 00:00: 00:00 Hospi ta injection 00 :00 l azithromyci 2021- No DAILY Meth jill n 05-22 st (ZITHROMAX) 00:00: 00:00 Hospi ta 500 MG 00 :00 l tablet riFAMpin 2021- No 2{tbl} 2 tablets. 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 0.02% 00:00: pulmonary NEBULIZER [place] nebulizer 00 disease 4 TIMES MD solution DAILY [facility] gabapentin gabapentin No gabapentin [facility] 300 mg 300 mg 300 mg Medical capsule capsule capsule gabapentin gabapentin No gabapentin [facility] 400 mg 400 mg 400 mg Medical capsule capsule capsule Incruse Incruse No Incruse [facility] Ellipta Ellipta Ellipta Medica l 62.5 62.5 62.5 mcg/actuati mcg/actuati mcg/actuat on powder on powder ion powder for for for inhalation inhalation inhalation Inhale 1 Inhale 1 Inhale 1 puff every puff every puff every day by day by day by inhalation inhalation inhalation route. route. route. metoprolol metoprolol No metoprolol [facility] tartrate 25 tartrate 25 tartrate Medical mg tablet mg tablet 25 mg tablet montelukast montelukast No montelukas [facility] 10 mg 10 mg t 10 mg Medical tablet Take tablet Take tablet 1 tablet 1 tablet Take 1 every day every day tablet by oral by oral every day route. route. by oral route. moxifloxaci moxifloxaci No moxifloxac [facility] n 400 mg n 400 mg in 400 mg Me dical tablet Take tablet Take tablet 1 tablet 1 tablet Take 1 every day every day tablet by oral by oral every day route. route. by oral route. pantoprazol pantoprazol No pantoprazo [facility] e 40 mg e 40 mg le 40 mg Medic al tablet,radha tablet,radha tablet,del yed release yed release ayed release prednisone prednisone No prednisone [facility] 10 mg 10 mg 10 mg Medical tablet tablet tablet Spiriva Spiriva No Spiriva [facility] Respimat Respimat Respimat Med ical 2.5 2.5 2.5 mcg/actuati mcg/actuati mcg/actuat on solution on solution ion for for solution inhalation inhalation for Inhale 2 Inhale 2 inhalation puffs every puffs every Inhale 2 day by day by puffs inhalation inhalation every day route. route. by inhalation route. Tudorza Tudorza No 1puff(s Q12H Tudorza [place] via Pressair Pressair ) Pressair Med ical 400 400 400 mcg/actuati mcg/actuati mcg/actuat on breath on breath ion breath activated activated activated Inhale 1 Inhale 1 Inhale 1 puff every puff every puff every 12 hours by 12 hours by 12 hours inhalation inhalation by route. route. inhalation route. azithromyci azithromyci No azithromyc [facility] n 250 mg n 250 mg in 250 mg Me dical tablet tablet tablet Breo Breo No 1puff(s Q1D Breo [facility] Ellipta 200 Ellipta 200 ) Ellipta Medical mcg-25 mcg-25 200 mcg-25 mcg/dose mcg/dose mcg/dose powder for powder for powder for inhalation inhalation inhalation Inhale 1 Inhale 1 Inhale 1 puff every puff every puff every day by day by day by inhalation inhalation inhalation route. route. route. Combivent Combivent No Combivent [facility] Respimat 20 Respimat 20 Respimat Medical mcg-100 mcg-100 20 mcg-100 mcg/actuati mcg/actuati mcg/actuat on solution on solution ion for for solution inhalation inhalation for Inhale 1 Inhale 1 inhalation puff 4 puff 4 Inhale 1 times a day times a day puff 4 by by times a inhalation inhalation day by route. route. inhalation route. Eliquis 5 Eliquis 5 No Eliquis 5 [facility] mg tablet mg tablet mg tablet Medical ethambutol ethambutol No ethambutol [facility] 400 mg 400 mg 400 mg Medical tablet Take tablet Take tablet by oral by oral Take by route. route. oral route. fluticasone fluticasone No fluticason [facility] 250 250 e 250 Medical mcg-salmete mcg-salmete mcg-salmet rol 50 rol 50 usha 50 mcg/dose mcg/dose mcg/dose blistr blistr blistr powdr for powdr for powdr for inhalation inhalation inhalation Inhale 1 Inhale 1 Inhale 1 puff twice puff twice puff twice a day by a day by a day by inhalation inhalation inhalation route. route. route. gabapentin gabapentin No gabapentin [facility] 300 mg 300 mg 300 mg Medical twice a day twice a day twice a day gabapentin gabapentin No gabapentin [facility] 300 mg 300 mg 300 mg Medical capsule capsule capsule gabapentin gabapentin No gabapentin [facility] 400 mg 400 mg 400 mg Medical capsule capsule capsule Incruse Incruse No Incruse [facility] Ellipta Ellipta Ellipta Medica l 62.5 62.5 62.5 mcg/actuati mcg/actuati mcg/actuat on powder on powder ion powder for for for inhalation inhalation inhalation Inhale 1 Inhale 1 Inhale 1 puff every puff every puff every day by day by day by inhalation inhalation inhalation route. route. route. metoprolol metoprolol No metoprolol [facility] tartrate 25 tartrate 25 tartrate Medical mg tablet mg tablet 25 mg tablet montelukast montelukast No montelukas [facility] 10 mg 10 mg t 10 mg Medical tablet Take tablet Take tablet 1 tablet 1 tablet Take 1 every day every day tablet by oral by oral every day route. route. by oral route. moxifloxaci moxifloxaci No moxifloxac [facility] n 400 mg n 400 mg in 400 mg Me dical tablet Take tablet Take tablet 1 tablet 1 tablet Take 1 every day every day tablet by oral by oral every day route. route. by oral route. pantoprazol pantoprazol No pantoprazo [facility] e 40 mg e 40 mg le 40 mg Medic al tablet,radha tablet,radha tablet,del yed release yed release ayed release prednisone prednisone No prednisone [facility] 10 mg 10 mg 10 mg Medical tablet tablet tablet Spiriva Spiriva No Spiriva [facility] Respimat Respimat Respimat Med ical 2.5 2.5 2.5 mcg/actuati mcg/actuati mcg/actuat on solution on solution ion for for solution inhalation inhalation for Inhale 2 Inhale 2 inhalation puffs every puffs every Inhale 2 day by day by puffs inhalation inhalation every day route. route. by inhalation route. Tudorza Tudorza No 1puff(s Q12H Tudorza [facility] via Pressair Pressair ) Pressair Med ical 400 400 400 mcg/actuati mcg/actuati mcg/actuat on breath on breath ion breath activated activated activated Inhale 1 Inhale 1 Inhale 1 puff every puff every puff every 12 hours by 12 hours by 12 hours inhalation inhalation by route. route. inhalation route. Incruse Incruse Yes Artur 1 puff Co mmon Ellipta Ellipta [facility] Breo Breo Yes Artur 1 puff Common Ellipta Ellipta [facility] Hydrocodone Hydrocodone Yes Artur 1 capsule Common Bitartrate Bitartrate [facility] azithromyci azithromyci No azithromyc [facility] n 250 mg n 250 mg in 250 mg Me dical tablet tablet tablet Breo Breo No 1puff(s Q1D Breo [facility] Ellipta 200 Ellipta 200 ) Ellipta Medical mcg-25 mcg-25 200 mcg-25 mcg/dose mcg/dose mcg/dose powder for powder for powder for inhalation inhalation inhalation Inhale 1 Inhale 1 Inhale 1 puff every puff every puff every day by day by day by inhalation inhalation inhalation route. route. route. Combivent Combivent No Combivent [facility] Respimat 20 Respimat 20 Respimat Medical mcg-100 mcg-100 20 mcg-100 mcg/actuati mcg/actuati mcg/actuat on solution on solution ion for for solution inhalation inhalation for Inhale 1 Inhale 1 inhalation puff 4 puff 4 Inhale 1 times a day times a day puff 4 by by times a inhalation inhalation day by route. route. inhalation route. Eliquis 5 Eliquis 5 No Eliquis 5 [facility] mg tablet mg tablet mg tablet Medical ethambutol ethambutol No ethambutol [facility] 400 mg 400 mg 400 mg Medical tablet Take tablet Take tablet by oral by oral Take by route. route. oral route. fluticasone fluticasone No fluticason [facility] 250 250 e 250 Medical mcg-salmete mcg-salmete mcg-salmet rol 50 rol 50 usha 50 mcg/dose mcg/dose mcg/dose blistr blistr blistr powdr for powdr for powdr for inhalation inhalation inhalation Inhale 1 Inhale 1 Inhale 1 puff twice puff twice puff twice a day by a day by a day by inhalation inhalation inhalation route. route. route. gabapentin gabapentin No gabapentin [facility] 300 mg 300 mg 300 mg Medical twice a day twice a day twice a day Immunizations Ordered Immunization Filled Date Status Comments Sour ce Name Immunization Name [facility] 2021-09-06 Completed [facility] 2021-09-05 Completed [facility] 00:00[facility] Com[facility] 00:00:00 [facility] Remdesivir 2021-09-05 Completed [facility] 00:00[facility]00 [facility] Com[facility] 00:00[facility] 2021-09-04 Com[facility] 00:00[facility] 2021[facility] Completed [facility] 00:00:00 [facility] Remdesivir 2021-09-04 Completed University of 00:00:00 [facility] Remdesivir 2021-09-04 Completed University of 00:00:00 [facility] Remdesivir 2021-09-03 Completed University of 00:00:00 [facility] Remdesivir 2021-09-03 Completed University of 00:00:00 [facility] Remdesivir 2021-09-03 Completed University of 00:00:00 [facility] Remdesivir 2021-09-03 Completed University of 00:00:00 [facility] Remdesivir 2021-09-02 Completed University of 00:00:00 [facility] Remdesivir 2021-09-02 Completed University of 00:00:00 [facility] Remdesivir 2021-09-02 Completed University of 00:00:00 [facility] Remdesivir 2021-09-02 Completed University of 00:00:00 [facility] PFIZER COVID-19 MRNA 2021-06-29 Completed Meth odist VACCINATION 00:00:00 [facility] Influenza Virus 2019-05-29 Completed Universit y of Vaccine Quad .5 mL 00:00:00 [facility] Influenza Virus 2019-05-29 Completed Universit y of Vaccine [facility] .5 mL 00:00:00 [facility] Influenza Virus 2019-05-29 Completed Universit y of Vaccine [facility] .5 mL 00:00:00 [facility] 6[facility] Influenza Virus 2019-05-29 Completed Universit y of Vaccine [facility] .5 mL 00:00:00 [place] [facility] Influenza Virus 2019-05-29 Completed Universit y of Vaccine [facility] .5 mL 00:00:00 [facility] Influenza Virus 2019-05-29 Completed Universit y of Vaccine Quad .5 mL 00:00:00 [facility] 6[facility] Influenza Virus 2019-05-29 Completed Universit y of Vaccine [facility] .5 mL 00:00:00 [facility] Influenza Virus 2019-05-29 Completed Universit y of Vaccine [facility] .5 mL 00:00:00 [facility] Influenza Virus 2019-05-29 Completed Universit y of Vaccine [facility] .5 mL 00:00:00 [facility] Influenza Virus 2019-05-29 Completed Universit y of Vaccine [facility] .5 mL 00:00:00 [facility] Influenza Virus 2019-05-29 Completed Universit y of Vaccine [facility] .5 mL 00:00:00 [facility] Influenza Virus 2019-05-29 Completed Universit y of Vaccine [facility] .5 mL 00:00:00 [facility] Influenza Virus 2019-05-29 Completed Universit y of Vaccine [facility] .5 mL 00:00:00 [facility] Influenza Virus 2019-05-29 Completed Universit y of Vaccine [facility] .5 mL 00:00:00 [facility] Influenza Virus 2019-05-29 Completed Universit y of Vaccine Quad .5 mL 00:00:00 [facility] 6+ MO Branch Influenza Virus 2019-05-29 Completed Universit y of Vaccine Quad .5 mL 00:00:00 [facility] 6+ MO Branch Pneumococcal 2017-05-22 Completed Religious Polysaccharide 00:00:00 [facility] pneumococcal, pneumococcal, 2016-02-06 Completed [facility] edical unspecified unspecified 00:00:00 formulation formulation pneumococcal, pneumococcal, 2016-02-06 Completed [facility] M edical unspecified unspecified 00:00:00 formulation formulation Pneumococcal, 2016-02-06 Completed Religious Unspecified 00:00:00 [facility] Pneumococcal 2014-11-04 Completed University o f Conjugate 13-Valent 00:00:00 [place] [facility] Damien [facility] Pneumococcal 13 2014-11-04 Completed Universit y of Conjugate, PCV13 00:00:00 [place] [facility] (Prevnar 13) Branch Pneumococcal 13 2014-11-04 Completed Universit y of Conjugate, PCV13 00:00:00 [place] [facility] (Prevnar 13) Branch Pneumococcal 13 2014-11-04 Completed Universit y of Conjugate, PCV13 00:00:00 [place] [facility] (Prevnar 13) Branch Pneumococcal 13 2014-11-04 Completed Universit y of Conjugate, PCV13 00:00:00 [place] [facility] (Prevnar 13) Branch Pneumococcal 13 2014-11-04 Completed Universit y of Conjugate, PCV13 00:00:00 [place] [facility] (Prevnar 13) Branch Pneumococcal 13 2014-11-04 Completed Universit y of Conjugate, PCV13 00:00:00 [place] [facility] (Prevnar 13) Branch Pneumococcal 13 2014-11-04 Completed Universit y of Conjugate, PCV13 00:00:00 [place] [facility] (Prevnar 13) Branch Pneumococcal 13 2014-11-04 Completed Universit y of Conjugate, PCV13 00:00:00 [place] [facility] (Prevnar 13) Branch Pneumococcal 13 2014-11-04 Completed Universit y of Conjugate, PCV13 00:00:00 [facility] dical (Prevnar 13) Branch Pneumococcal 13 2014-11-04 Completed Universit y of Conjugate, PCV13 00:00:00 [place] [facility] (Prevnar 13) Branch Pneumococcal 13 2014-11-04 Completed Universit y of Conjugate, PCV13 00:00:00 [facility] dical (Prevnar 13) Branch Pneumococcal 13 2014-11-04 Completed Universit y of Conjugate, PCV13 00:00:00 [facility] dical (Prevnar 13) Branch Pneumococcal 13 2014-11-04 Completed Universit y of Conjugate, PCV13 00:00:00 [facility] dical (Prevnar 13) Branch Pneumococcal 13 2014-11-04 Completed Universit y of Conjugate, PCV13 00:00:00 [facility] dical (Prevnar 13) Branch Pneumococcal 13 2014-11-04 Completed Universit y of Conjugate, PCV13 00:00:00 [facility] dical (Prevnar 13) Branch Pneumococcal 13 2014-11-04 Completed Universit y of Conjugate, PCV13 00:00:00 [facility] dical (Prevnar 13) Branch Pneumococcal 2014-11-04 Completed Religious Conjugate 13-Valent 00:00:00 Hospi martha influenza, influenza, Unknown Completed [facility] injectable, injectable, quadrivalent, quadrivalent, preservative free - preservative free 0.5 mL vial(s) - 0.5 mL vial(s) pneumococcal pneumococcal Unknown Completed [facility] ical conjugate PCV 13 conjugate PCV 13 influenza, influenza, Unknown Completed [facility] injectable, injectable, quadrivalent, quadrivalent, preservative free - preservative free 0.5 mL vial(s) - 0.5 mL vial(s) pneumococcal pneumococcal Unknown Completed [facility] ical conjugate PCV 13 conjugate PCV 13 Vital Signs Vital Name Observation Time Observation Value Comments Source Systolic blood 2021-11-12 19:00:00 106 mm[Hg] Univer sity of pressure [facility] Diastolic blood 2021-11-12 19:00:00 61 mm[Hg] Unive rsity of pressure [facility] Heart rate 2021-11-12 19:00:00 70 /min Universi ty of [facility] Respiratory rate 2021-11-12 19:00:00 15 /min Univ ersity of [facility] Oxygen saturation in 2021-11-12 19:00:00 100 /min University of Arterial blood by [place] [facility] kandis Pulse oximetry Branch Body temperature 2021-11-12 17:16:00 37.61 Laure Univ ersity of [facility] Body height 2021-11-12 17:16:00 157.5 cm Universi ty of [facility] Body weight 2021-11-12 17:16:00 58.968 kg Universi ty [facility] BMI 2021-11-12 17:16:00 23.78 kg/m2 [facility]i ty [facility] Respiratory rate 2021-09-14 19:53:00 18 /min Univ ersity of [facility] Oxygen saturation in 2021-09-14 19:53:00 100 /min University of Arterial blood by [place] [facility] Pulse oximetry Branch Systolic blood 2021-09-14 19:10:00 104 mm[Hg] Univer sity of pressure [facility] Diastolic blood 2021-09-14 19:10:00 64 mm[Hg] Unive rsity of pressure [facility] Heart rate 2021-09-14 19:10:00 75 /min Universi ty [facility] Body temperature 2021-09-14 17:16:00 37.61 Laure Univ ersity of [facility] Body weight 2021-09-14 17:16:00 57.607 kg Universi ty [facility] BMI 2021-09-14 17:16:00 23.23 kg/m2 [facility] Respiratory rate 2021-09-06 18:36:00 16 /min Univ ersity of [facility] Oxygen saturation in 2021-09-06 18:36:00 96 /min University of Arterial blood by [place] [facility] Pulse oximetry Branch Systolic blood 2021-09-06 16:24:00 103 mm[Hg] Univer sity of pressure [facility] Diastolic blood 2021-09-06 16:24:00 55 mm[Hg] Unive rsity of pressure [facility] Heart rate 2021-09-06 16:24:00 63 /min Universi ty [facility] Body temperature 2021-09-06 16:24:00 35.89 Laure Univ ersity of [facility] Body weight 2021-09-06 08:42:00 59.9 kg [facility]i ty [facility] BMI 2021-09-06 08:42:00 24.15 kg/m2 [facility] Body height 2021-09-02 05:53:00 157.5 cm [facility]i [facility] Body temperature 2021-04-16 22:26:00 36.11 Laure Univ ersity [facility] Systolic blood 2021-04-16 21:33:00 127 mm[Hg] Univer sity of pressure [facility] Diastolic blood 2021-04-16 21:33:00 68 mm[Hg] Unive rsity of pressure [facility] Heart rate 2021-04-16 21:33:00 69 /min [facility]i ty [facility] Respiratory rate 2021-04-16 21:33:00 18 /min Univ ersity of [facility] Body height 2021-04-16 21:33:00 157.5 cm [facility]i [facility] Body weight 2021-04-16 21:33:00 54.432 kg [facility]i [facility] BMI 2021-04-16 21:33:00 21.95 kg/m2 [facility] Oxygen saturation in 2021-04-16 21:33:00 98 /min University of Arterial blood by [facility] Pulse oximetry Branch Systolic blood 2021-03-15 17:40:00 113 mm[Hg] Univer sity of pressure [facility] Diastolic blood 2021-03-15 17:40:00 68 mm[Hg] Unive rsity of pressure [facility] Heart rate 2021-03-15 17:40:00 67 /min [facility]i ty [facility] Body temperature 2021-03-15 17:40:00 36.39 Laure Univ ers[facility] Respiratory rate 2021-03-15 17:40:00 16 /min Univ ersity of [facility] Oxygen saturation in 2021-03-15 17:40:00 100 /min University of Arterial blood by [facility] Pulse oximetry Branch Body weight 2021-03-15 09:39:00 [facility] 2021-03-15 09:39:00 22.75 kg/m2 [facility] Height 2020-06-03 00:00:00 62 [in_i] Yvonne Shaw [facility] BMI (Body Mass 2020-06-03 00:00:00 22.1 kg/m2 [facility] Medical Index) Body Weight 2020-06-03 00:00:00 1936 [oz_av] Yvonne Shaw edical Systolic blood 2021-06-23 17:47:00 124 mm[Hg] [facility] pressure Diastolic blood 2021-06-23 17:47:00 58 mm[Hg] [facility] pressure Heart rate 2021-06-23 17:47:00 69 /min [facility] Body temperature 2021-06-23 17:47:00 35.72 Laure [facility] Respiratory rate 2021-06-23 17:47:00 19 /min [facility] Body weight 2021-06-23 17:47:00 57.698 kg [facility] BMI 2021-06-23 17:47:00 23.27 kg/m2 [facility] Oxygen saturation in 2021-06-23 17:47:00 99 /min [facility] Arterial blood by Pulse oximetry Body height 2021-06-17 18:43:00 157.5 cm [facility] Procedures Procedure Date / Time Performing Clinician Source Performed XR CHEST 1 VW 2021-11-12 Sean Bills [facility] x[facility] 17:35:24 [facility] BASIC METABOLIC PANEL (NA, 2021-11-12 Sean Bills [facility] K, CL, CO2, GLUCOSE, BUN, 17:33:00 Medica Branch CREATININE, [place]) CBC WITH DIFF 2021-11-12 Sean Bills [facility] xa 17:33:00 [facility] RAPID INFLUENZA A/B 2021-11-12 Sean Bills [facility] 17:33:00 [facility] COVID-19 (ID NOW RAPID 2021-11-12 Sean Bills [facility] TESTING) 17:33:00 Medical Branch CONSENT/REFUSAL FOR 2021-11-12 Doctor Unassigned, [facility] DIAGNOSIS AND TREATMENT 17:18:14 [facility] TROPONIN I 2021-09-14 Sean Bills [facility] 17:58:00 Medical Branch BASIC METABOLIC PANEL (NA, 2021-09-14 Sean Bills [facility] K, CL, CO2, GLUCOSE, BUN, 17:58:00 Medica l [place] CREATININE, CA) CBC WITH DIFF 2021-09-14 Sean Bills [facility] 17:58:00 Medical Branch N-TERMINAL PRO-BNP 2021-09-14 [facility] 17[facility]58[facility] Branch COVID-19 (ID NOW RAPID 2021-09-14 Sean Bills [facility] TESTING) 17:58:00 Medical Branch XR CHEST 1 VW 2021-09-14 Sean Bills [facility] 17:54:14 Medical Branch CONSENT/REFUSAL FOR 2021-09-14 Doctor Unassigned, [facility] DIAGNOSIS AND TREATMENT 17:10:15 [place] COVID-19 (ID NOW RAPID 2021-09-06 [facility] TESTING) 19:17:00 Medical Branch XR CHEST 1 VW 2021-09-06 [facility] 16:38:04 Medical Branch COMP. METABOLIC PANEL 2021-09-05 [facility] ([id number]) 08:53:00 Medical Branch BASIC METABOLIC PANEL (NA, 2021-09-04 Preeti Andersen [facility] K, CL, CO2, GLUCOSE, BUN, 08:56:00 [facility] CREATININE, CA) CBC WITH DIFF 2021-09-04 Preeti Andersen [facility] 08:56:00 Medical Branch HEPATIC FUNCTION PANEL 2021-09-03 [facility] ([id number]) (ALB,T.PRO,BILI 07:52:00 Medical Branch T,BU/BC,ALT,AST,ALK PHOS) BASIC METABOLIC PANEL (NA, 2021[facility]03 [facility], CO2, GLUCOSE, BUN, 07:52:00 Medica [facility] CREATININE, CA) CBC WITH DIFF 2021-09-03 [facility] 07:52:00 Medical Branch URINALYSIS 2021-09-02 [facility] xa 09:02:[address] [facility] CT CHEST PULMONARY ANGIOGRAM 2021-09-02 [facility] 01:32:47 Medical Branch COVID-19 (ID NOW RAPID 2021-09-02 [facility] TESTING) 00:14:00 Medical Branch LAB ONLY COVID 2021-09-02 [facility] INTERPRETATION 00:14:00 [facility] HB ECG ROUTINE & RHYTHM 2021-09-01 [facility] STRIP 23:58:06 Medical Branch XR CHEST 1 VW 2021-09-01 [facility] [place] 23:55:09 Medical [facility] IRON 2021-09-01 [facility] 23:34:00 Medical Branch TOTAL IRON BINDING CAPACITY 2021-09-01 [facility] 23:34:00 [facility] TROPONIN I 2021-09-01 [facility] 23:34:00 Medical [place] BASIC METABOLIC PANEL (NA, 2021-09-01 [facility] K, CL, CO2, GLUCOSE, BUN, 23:34:00 Medica [facility] CREATININE, CA) CBC WITH DIFF 2021-09-01 [facility] [place] 23:34:00 Medical Branch NOTICE OF PRIVACY PRACTICES 2021-09-01 [facility] 23:12:55 [place] [facility] CONSENT/REFUSAL FOR 2021-09-01 Doctor Unaeden, [facility] DIAGNOSIS AND TREATMENT 23:12:32 [facility] EXTERNAL PROVIDER - ADC 2021-06-30 Doctor Unassigned, [facility] CARDIOLOGY 05:01:00 [facility] ALPHA-1 ANTITRYPSIN LEVEL 2021-06-28 Nawaf Wynn [facility] 15:04:00 HC COMPLETE BLD COUNT W/AUTO 2021-06-23 [facility], [facility] DIFF 15:48:00 COMPREHENSIVE METABOLIC 2021-06-23 [facility], [facility] PANEL 15:48:00 ALCOHOL LEVEL, BLOOD 2021-06-23u, [facility] ospital 15:48:00 NICOTINE AND COTININE, SERUM 2021-06-23 [facility], [facility] 15:48:00 ESTIMATED GFR 2021-06-23 [facility], [facility] Hospit al 15:48:00 SINGLE ANTIGEN BEADS 2021-06-23 [facility], [facility] ospital 15:48:00 XR CHEST 2 VW 2021-06-23 [facility] 15:00:48 SIX MINUTE WALK W/ PULSE 2021-06-23 [facility], [facility] OXIMETRY 14:05:12 SPIROMETRY, DIFFUSION 2021-06-23 [facility], [facility] 12:47:12 XR CHEST 1 VW PORTABLE 2021-05-28 [facility] 10:32:46 Rosemary HC COMPLETE BLD COUNT W/AUTO 2021-05-28 Ben Mensah [facility] DIFF 09:41:00 BASIC METABOLIC PANEL 2021-05-28 Ben Mensah [facility] 09:41:00 MAGNESIUM LEVEL 2021-05-28 [facility] 09:[facility]00 PHOSPHORUS LEVEL 2021-05-28 Ben Mensah [facility] 09:41:00 ESTIMATED GFR 2021-05-28 [facility] 09:[facility]00 XR CHEST 1 VW PORTABLE 2021-05-27 [facility] 20:25:13 SURGICAL PATHOLOGY REQUEST 2021-05-27 Angeline Tellez [facility] 18:03:00 XR CHEST 1 VW 2021-05-27 [facility] NEEDLE BIOPSY NO CONTRAST 2021-05-27 [facility] 16:53:56 Rosemary FUNGUS CULTURE 2021-05-27 [facility] 16:30:00 AFB CULTURE 2021-05-27 Angeline [facility] 16:30:00 FUNGUS SMEAR 2021-05-27 Angeline Telle[facility] 16:30:00 AFB STAIN 2021-05-27 Angeline Tellez [facility] 16:30:00 CYTOLOGY (NON-GYNECOLOGICAL) 2021-05-27 Angeline Tellez [facility] REQUEST 16:30:00 HC COMPLETE BLD COUNT W/AUTO 2021-05-27 Ben Mensah [facility] DIFF 10:12:00 BASIC METABOLIC PANEL 2021-05-27 Ben Mensah [facility] 10:12:00 MAGNESIUM LEVEL 2021-05-27 [facility] Mensah [facility] 10:12:00 PHOSPHORUS LEVEL 2021-05-27 Ben Mensah [facility] 10:12:00 ESTIMATED GFR 2021-05-27 Ben Mensha [facility] 10:12:00 HC COMPLETE BLD COUNT W/AUTO 2021-05-26 Ben Mensah Met [facility] DIFF 08:03:00 BASIC METABOLIC PANEL 2021-05-26 Ben Mensah [facility] 08:03:00 MAGNESIUM LEVEL 2021-05-26 [facility] Mens[facility] 08:03:00 PHOSPHORUS LEVEL 2021-05-26 Ben Mensah [facility] 08:03:00 ESTIMATED GFR 2021-05-26 [facility] Hospit [facility] 08:03:00 HC COMPLETE BLD COUNT W/AUTO 2021-05-25 Ben Mensah Met [facility] DIFF 09:14:00 BASIC METABOLIC PANEL 2021-05-25 Ben Mensah [facility] 09:14:00 MAGNESIUM LEVEL 2021-05-25 [facility] 09:14:00 PHOSPHORUS LEVEL 2021-05-25 Ben Mensah [facility] 09:14:00 ESTIMATED GFR 2021-05-25 [facility] 09:14:00 CBC HEMOGRAM 2021-05-24 [facility], [facility] 19:05:00 BASIC METABOLIC PANEL 2021-05-24 [facility] 19:05:00 MAGNESIUM LEVEL 2021-05-24 [facility], [facility] 19:05:00 PHOSPHORUS LEVEL 2021-05-24 [facility], [facility] 19:05:00 PROTHROMBIN TIME WITH INR 2021-05-24 [facility] 19:05:00 PARTIAL THROMBOPLASTIN TIME 2021-05-24 [facility], [facility] (PTT) 19:05:00 ESTIMATED GFR 2021-05-24 [facility], [facility] 19:05:00 HC COMPLETE BLD COUNT W/AUTO 2021-05-23 [facility], [facility] DIFF 19:23:00 COMPREHENSIVE METABOLIC 2021-05-23 [facility], [facility] PANEL 19:23:00 ESTIMATED GFR 2021-05-23 [facility], [facility] 19:23:00 COVID-19 QUALITATIVE RT-PCR 2021-05-23 [facility], [facility] 18:40:00 SURGICAL PATHOLOGY REQUEST 2021-05-18 [facility] 19:03:00 VITAMIN D 25 HYDROXY LEVEL 2021-05-13 [facility], [facility] 15:30:00 BASIC METABOLIC PANEL 2021-05-13 [facility], [facility] 15:30:00 ALBUMIN LEVEL 2021-05-13 [facility], [facility] al 15:30:00 HCG QUANTITATIVE, SERUM 2021-05-13 [facility], [facility] 15:30:00 ESTIMATED GFR 2021-05-13 [facility], [facility] 15:30:00 EXTERNAL PROVIDER - ADC 2021-04-29 Doctor Unassigned, [facility] CARDIOLOGY 05:01:00 [facility] PET CT SKULL BASE TO MID 2021-04-18 [facility], [facility] THIGH 15:02:47 POC GLUCOSE 2021-04-18 [facility], [facility] al 13:41:00 CONSENT/REFUSAL FOR 2021-04-16 [facility] 21:32:41 [facility] CV RIGHT AND LEFT HEART CATH 2021-04-16 Sebastiánrobert Lottie [facility] SELECTIVE CORONARY LV GRAM 00:11:05 ECG 12-LEAD 2021-04-14 [facility] 20:29:03 SPIROMETRY, LUNG VOLUMES, 2021-04-14 [facility], [facility] MIPS/MEPS 19:11:27 SIX MINUTE WALK W/ PULSE 2021-04-14 [facility], [facility] OXIMETRY 18:27:27 ARTERIAL BLOOD GAS, 2021-04-14 [facility], [facility] spital PULMONARY FUNC DEPT 17:29:00 US CAROTID DUPLEX BILATERAL 2021-04-14u, [facility] 14:00:00 ABORH - TRANSPLANT 2021-04-12u, [facility] pital 13:45:00 URINE CULTURE 2021-04-12u, [facility] [facility]00 VITAMIN D 1,25 DIHYDROXY 2021-04-12 [facility], [facility] LEVEL, SERUM 13:25:00 ZINC LEVEL, SERUM 2021-04-12 [facility], [facility] ital 13:25:00 C-REACTIVE PROTEIN 2021-04-12u, [facility] pital 13:25:00 HC COMPLETE BLD COUNT W/AUTO 2021-04-12 [facility], [facility] DIFF 13:25:00 BASIC METABOLIC PANEL 2021-04-12 [facility], [facility] 13:25:00 HEPATIC FUNCTION PANEL 2021-04-12 [facility], [facility] 13:25:00 ANTINUCLEAR ANTIBODIES (DEMI) 2021-04-12 [facility], [facility] WITH REFLEX TO TITER AND 13:25:00 PATTERN, IMMUNOFLUORESCENCE IONIZED CALCIUM 2021-04-12 [facility], [facility] 13:25:00 MAGNESIUM LEVEL 2021-04-12 [facility], [facility] al 13:25:00 PHOSPHORUS LEVEL 2021-04-12 [facility], [facility] martha 13:25:00 FIBRINOGEN 2021-04-12 [facility], [facility] 13:25:00 HEMOGLOBIN A1C 2021-04-12 [facility], [facility] 13:25:00 HEMOGLOBIN ELECTROPHORESIS 2021-04-12u, [facility] WITH HGB HCT AND RBC 13:25:00 LDH 2021-04-12u, [facility] al 13:25:00 LIPID PANEL 2021-04-12, [facility] 13:25:00 NICOTINE AND COTININE, SERUM 2021-04-12, [facility] 13:25:00 PARATHYROID HORMONE 2021-04-12u, [facility] Ho spital 13:25:00 PREALBUMIN LEVEL 2021-04-12, [facility] mar[facility] 13:25:00 SYPHILIS TREPONEMA SCREEN 2021-04-12, [facility] WITH RPR CONFIRMATION 13:25:00 (REVERSE ALGORITHM) SERUM ELECTROPHORESIS 2021-04-12, [facility] 13:25:00 SEDIMENTATION RATE 2021-04-12, [facility] Hos pital 13:25:00 THYROID STIMULATING HORMONE 2021-04-12u, [facility] 13:25:00 T3 2021-04-12u, [facility] al 13:25:00 T4 2021-04-12u, [facility] al 13:25:00 T4, FREE 2021-04-12, [facility] al 13:25:00 TOXOPLASMA GONDII ANTIBODY, 2021-04-12, [facility] IGG 13:25:00 TOXOPLASMA IGM AB 2021-04-12, [facility] ital 13:25:00 URIC ACID LEVEL 2021-04-12, [facility] al 13:25:00 CYTOMEGALOVIRUS AB, IGG 2021-04-12u, [facility] 13:25:00 CECILIA-KAPADIA VIRUS ANTIBODY 2021-04-12u, [facility] TEST 13:25:00 HSV 1 & 2 GLYCOPROTEIN G AB, 2021-04-12, [facility] IGG 13:25:00 HSV TYPE 1/2 COMBINED AB, 2021-04-12u, [facility] IGM 13:25:00 HIV 1/2 ANTIGEN/ANTIBODY, 2021-04-12, [facility] FOURTH GENERATION, WITH 13:25:00 REFLEXES HEPATITIS ACUTE PANEL 2021-04-12u, [facility] 13:25:00 HEPATITIS B SURFACE AB, 2021-04-12, [facility] QUANTITATIVE 13:25:00 HEPATITIS B CORE ANTIBODY 2021-04-12, [facility] TOTAL 13:25:00 HEPATITIS A ANTIBODY TOTAL 2021-04-12, [facility] 13:25:00 VARICELLA ZOSTER VIRUS AB, 2021-04-12u, [facility] IGG 13:25:00 LUPUS ANTICOAGULANT PANEL 2021-04-12, [facility] 13:25:00 ANTI-NEUTROPHILIC 2021-04-12u, [facility] ital CYTOPLASMIC ABS PANEL 13:25:00 CYCLIC CITRULLINATED PEPTIDE 2021-04-12, [facility] AB, IGG 13:25:00 ALDOLASE, SERUM 2021-04-12, [facility] 13:25:00 CENTROMERE ANTIBODY 2021-04-12, [facility] Ho spital 13:25:00 DOUBLE-STRANDED DNA (DSDNA) 2021-04-12, [facility] ANTIBODIES, CRITHIDIA 13:25:00 MONTANEZ ANTIBODY 2021-04-12u, [facility] 13:25:00 C3 COMPLEMENT COMPONENT 2021-04-12, [facility] 13:25:00 RHEUMATOID FACTOR 2021-04-12u, [facility] Hosp ital 13:25:00 FERRITIN LEVEL 2021-04-12, [facility] 13:25:00 FOLATE LEVEL 2021-04-12, [facility] 13:25:00 HAPTOGLOBIN 2021-04-12u, [facility] 13:25:00 PERIPHERAL SMEAR 2021-04-12, [facility] 13:25:00 TOTAL IRON BINDING CAPACITY 2021-04-12, [facility] 13:25:00 VITAMIN B12 LEVEL 2021-04-12u, [facility] ital 13:25:00 URINALYSIS SCREEN AND 2021-04-12, [facility] MICROSCOPY, WITH REFLEX TO 13:25:00 CULTURE TYPE AND SCREEN 2021-04-12 Darwin, [facility] 13:25:00 ESTIMATED GFR 2021-04-12 Darwin, [facility] al 13:25:00 SINGLE ANTIGEN BEADS 2021-04-12, [facility] ospital 13:25:00 MISCELLANEOUS REFERRAL TEST 2021-04-12 [facility], [facility] 13:25:00 CREATININE CLEARANCE, URINE, 2021-04-12 Darwin, [facility] 24 HOUR 13:25:00 COVID-19 QUALITATIVE RT-PCR 2021-04-12 Guillermo, [facility] 12:54:00 TB T-SPOT 2021-04-12, [facility] al 12:25:00 COMPLEMENT ACTIVITY, TOTAL 2021-04-12, [facility] 12:25:00 ANGIOTENSIN CONVERTING 2021-04-12 [facility], [facility] ENZYME 12:25:00 HYPERSENSITIVITY PNEUMONITIS 2021-04-12u, [facility] I 12:25:00 HYPERSENSITIVITY PNEUMONITIS 2021-04-12u, [facility] II 12:25:00 HLA TYPING 2021-04-12, [facility] al 12:25:00 C1Q CLASS 1 & 2 ANTIBODY 2021-04-12 [facility], [facility] 12:25:00 FL FLUOROSCOPY OF DIAPHRAGM 2021-04-11, [facility] NO FILMS 21:15:00 FL ESOPHAGRAM SINGLE 2021-04-11, [facility] ospital CONTRAST 21:05:00 NM CARDIAC SHUNT EVALUATION 2021-04-11, [facility] 20:04:00 NM LUNG PERFUSION QUANT W 2021-04-11u, [facility] IMG 20:03:00 US ABDOMEN COMPLETE 2021-04-11, [facility] Ho spital 18:13:00 XR PANOREX 2021-04-11, [facility] 16:28:00 XR CHEST 2 VW 2021-04-11, [facility] 16:12:00 BONE DENSITY 2021-04-11 [facility] 16[facility]43 CT CHEST WO CONTRAST 2021-04-11 [facility] 15:18:00 TTE COMPLETE W AGITATED 2021-04-11 [facility] SALINE W CONT W DOP 14:39:07 CONSENT/REFUSAL FOR 2021-04-07 Doctor Unassigned, [facility] DIAGNOSIS AND TREATMENT 16:53:02 [facility] ASSIGNMENT OF BENEFITS 2021-04-07 Doctor Unassigned, [facility] 16:52:46 [facility] MEDICAL RELEASE/CLEARANCE 2021-03-18 Doctor Unassigned, [facility] FORMS 06:01:00 [place] [facility] MAGNESIUM 2021-03-15 [facility] 09:45:00 Medical Branch BASIC METABOLIC PANEL (NA, 2021-03-15 Priyank Odonnell [facility] K, CL, CO2, GLUCOSE, BUN, 09:45:00 [facility] CREATININE, CA) CBC WITH DIFF 2021-03-15 Priyank Odonnell [facility] 09:45:00 Medical Branch PHOSPHORUS 2021-03-14 [facility] 10[facility]18[facility]00 Medical Branch MAGNESIUM 2021-03-14 [facility] xas 10:18:00 Medical Branch BASIC METABOLIC PANEL (NA, 2021-03-14 Leida [facility] K, CL, CO2, GLUCOSE, BUN, 10:18:00 [facility] CREATININE, CA) FECES CULTURE 2021-03-13 [facility] 16:15:00 Medical Branch CLOSTRIDIUM DIFFICILE TOXIN 2021-03-13 Priyank Odonnell [facility] 16:15:00 Medical Branch BASIC METABOLIC PANEL (NA, 2021-03-13 Priyank Odonnell [facility] K, CL, CO2, GLUCOSE, BUN, 12:29:00 [facility] CREATININE, CA) CBC WITH DIFF 2021-03-13 [facility] 12:29:00 [facility] Branch PNEUMOCOCCAL ANTIGEN 2021-03-12 Umberto [facility] 04:26:00 Medical Branch MAGNESIUM 2021-03-11 Leida [facility] xas 11:06:00 Medical Branch BASIC METABOLIC PANEL (NA, 2021-03-11 Leida Tereso [facility] K, CL, CO2, GLUCOSE, BUN, 11:06:00 Medica l Branch CREATININE, CA) CBC WITH DIFF 2021-03-11 [facility] x[facility] 11:06:00 Medical Branch MRSA / MSSA SCREEN BY PCR, 2021-03-11 Jose Cruz Garcia [facility] NARES 11:06:00 Medical Branch PHOSPHORUS 2021-03-11 [facility] 00:35:00 Medical Branch COVID-19 (ID NOW RAPID 2021-03-10 Singer [facility] TESTING) 17:41:00 Medical Branch LAB ONLY COVID 2021-03-10 [facility] xa INTERPRETATION 17:41:00 Medical [place] XR CHEST 1 VW 2021-03-10 [facility] xas 15:32:47 Medical Branch LIPASE 2021-03-10 [facility] xas 15:22:00 Medical Branch TROPONIN I 2021-03-10 [facility] xas 15:22:00 [facility] COMP. METABOLIC PANEL 2021-03-10 Singer [facility] ([id number]) 15:22:00 Medical Branch CBC WITH DIFF 2021-03-10 [facility] xas 15:22:00 Medical Branch PROTHROMBIN TIME / INR 2021-03-10 Singer [facility] 15:22:00 Medical Branch ACTIVATED PARTIAL THRMPLAS 2021-03-10 Singer [facility] LORRIE 15:22:00 [facility] HB ECG ROUTINE & RHYTHM 2021-03-10 Singer [facility] STRIP 15:19:21 Medical Branch CONSENT/REFUSAL FOR 2021-03-10 Doctor Unassigned, [facility] DIAGNOSIS AND TREATMENT 15:02:16 [place] [facility] HOSPITAL ADMISSION 2021-03-10 Doctor Unassigned, [facility] 06:01:00 [place] [facility] AUTHORIZATION FOR RELEASE OF 2021-02-21 Doctor Unassigned, [facility] PHI 06:01:00 [facility] EXTERNAL PROVIDER - ADC 2021-01-20 Doctor Unassigned, [facility] REFERRAL 06:01:[address] [facility] [address] CHEST EXTERNAL STUDY 2020-12-17 Kingsley Nawaf [facility] 19:33:00 ECG 12-LEAD 2020-11-29 Fernanda [facility] 17:14:49 CT CHEST EXTERNAL STUDY 2020-11-23 Nawaf Wynn [facility] 16:06:00 Tonsillectomy 1973[birth year]-05 [facility] 00:00:00 Hysterectomy [facility] Open Reduction of Fracture [facility] Plan of Care Planned Activity Planned Date Details Comments Source Future Scheduled 2021-11-23 HEPATITIS B VACCINES Met [facility] Test 21:26:10 (1 of 3 - 3-dose series) [code = HEPATITIS B VACCINES (1 of 3 - 3-dose series)] Future Scheduled 2021-11-23 Screening for [facility] Test 21:26:10 malignant neoplasm of cervix (procedure) [code = 396945652] Future Scheduled 2021-11-23 BREAST CANCER [facility] Test 21:26:10 SCREENING [code = BREAST CANCER SCREENING] Future Scheduled 2021-11-23 COLONOSCOPY SCREENING [facility] Test 21:26:10 [code = COLONOSCOPY SCREENING] Future Scheduled 2021-11-23 SHINGLES VACCINES (1 Met [facility] Test 21:26:10 of 2) [code = SHINGLES VACCINES (1 of 2)] Future Scheduled 2021-11-23 COVID-19 VACCINE (2 - [facility] Test 21:26:10 Pfizer series) [code = COVID-19 VACCINE (2 - Pfizer series)] Future Scheduled 2021-11-23 INFLUENZA VACCINE Method [facility] Test 21:26:10 [code = INFLUENZA VACCINE] Future Scheduled 2021-11-23 Pneumococcal Vaccine: [facility] Test 21:26:10 Pediatrics (0 to 5 Years) and At-Risk Patients (6 to 64 Years) (3 - PPSV23 if available, else PCV20) [code = Pneumococcal Vaccine: Pediatrics (0 to 5 Years) and At-Risk Patients (6 to 64 Years) (3 - PPSV23 if available, else PCV20)] Future Scheduled 2021-08-10 COVID-19 Vaccination [facility] Test 03:53:43 (#1) [code = COVID-19 MD And antonellaon Cancer Vaccination (#1)] Center Diagnostic Test 2020-06-03 culture, sputum [code Mere via Medical Pending 00:00:00 = culture, sputum] Encounters Start End Encounter Admission Attending Care Care Encounter Source Date/Time Date/Time Type Type Clinicians Facility Department ID 2021-03-03 Outpatient 3 [id number] ENCPL REF [id number] [facility] 13:19:49 [facility] [place] 2021-01-03 Outpatient READMISSIO JULIA ENCCLR ENCCLR [id number] ENCCLR 14:31:15 N DEMI JAIMES 2021-01-03 Outpatient READMISSIO ENCGEN ENCGEN [id number] ENCGEN 13:24:39 N 2020-12-[address] [facility] [id number] Univers 07:53:58 ity [facility] 2020-12-[address] [facility] [id number] Univers 05:50:24 ity [facility] 2020-12-[address] [facility] [id number] Univers 00:32:42 ity [facility] 2020-12-[address] [facility] [id number] Univers 17:40:10 ity [facility] 2020-12-03 [facility] [id number] Univers 12:41:[address] [facility] 2021-11-12 2021-11-12 Emergency X [facility]ELY[facility]VA [facility] ERT [id number] Univers 12:18:00 15:26:00 SEAN ity [facility] 2021-11-12 2021-11-12 [facility] [id number] Univers 12:18:00 15:26:00 Sean MENCHACA [id number] i ty jasen LANGE 4.2.7.2.686 [facility] [id number] [place] [id number] Branch 2021-11-01 2021-11-01 Telephone Kwesi, 1.2.840.1 [id number] [id number] Methodi 00:00:00 00:00:[address] 3.430.2.7 Hospit a .3.412818 l .8 2021-10-31 2021-10-31 Telephone Famanias, 1.2.840.1 [id number] 21 [id number] Methodi 00:00:00 00:00:[address] 3.430.2.7 Hospit a .3.439876 l .8 2021-10-14 2021-10-14 Telephone [place]quet, 1.2.840.1 [id number] Methodi 00:00:00 00:00:[address] 3.430.2.7 Hospit a .3.963488 l .8 2021-09-14 2021-09-14 Emergency X [facility] [id number] Univers 12:28:00 15:47:00 SEAN quintero [facility] 2021-09-14 2021-09-14 [facility] 1.2.440.795 [id number] Univers 12:28:00 15:47:00 Sean MENCHACA [id number] i ty [facility] 4.2.7.2.686 [facility] [id number] [address] 2021-09-13 2021-09-13 Telephone Loree, 1.2.840.1 [id number] 2099 [id number] Methodi 00:00:00 00:00:[address] 3.430.2.7 Hospit a .3.326653 l .8 2021-09-13 2021-09-13 Telephone Rivera, 1.2.840.1 [id number] 2099 [id number] Methodi 00:00:00 00:00:[address] 3.430.2.7 Hospit a .3.870911 l .8 2021-09-12 2021-09-12 Telephone [place]amo, 1.2.840.1 [id number] 2099 [id number] Methodi 00:00:00 00:00:[address] 3.430.2.7 Hospit a .3.990856 l .8 2021-09-12 2021-09-12 Telephone Jones, 1.2.840.1 [id number] 2099 [id number] Methodi 00:00:00 00:00:[address] 3.430.2.7 Hospit a .3.466472 l .8 2021-09-08 2021-09-08 Telephone Moe, 1.2.840.1 [id number] 448 [id number] Methodi 00:00:00 00:00:[address] 3.430.2.7 Hospit a .3.678304 l .8 2021-09-07 2021-09-07 Telephone Rivera, 1.2.840.1 [id number] 2099 [id number] Methodi 00:00:00 00:00:[address] 3.430.2.7 Hospit a .3.184901 l .8 2021-09-07 2021-09-07 Transition NANDA Avila 1.2.840.114 [id number] Univers 00:00:00 00:00:00 of Care Irasema DESHPANDE 350.1.13.10 i ty jasen REYEZ 4.2.7.2.686 [place] [id number] [facility] 403 Branch 2021-09-01 2021-09-06 Inpatient X RADHA OHARA [facility] [id number] Univers 18:13:00 17:25:00 JOSE CRUZ itbrigitte [facility] 2021-09-01 2021-09-06 Hospital Corby Leggett [facility] 1.2.8 40.114 [id number] Univers 18:13:00 17:25:00 Encounter Jose Cruz Garcia [id number] ity [facility] [place] [id number] [facility] 080 Branch 2021-09-02 2021-09-02 Telephone Loree, 1.2.840.1 [id number] 2099 [id number] Methodi 00:00:00 00:00:[address] 3.430.2.7 Hospit a .3.977196 l .8 2021-09-01 2021-09-01 Telephone Loree, 1.2.840.1 [id number] 2099 [id number] Methodi 00:00:00 00:00:[address] 3.430.2.7 Hospit a .3.881542 l .8 2021-08-18 2021-08-18 Telephone Famanias, 1.2.840.1 [id number] Methodi 00:00:00 00:00:[address] 3.430.2.7 Hospit a .3.583083 l .8 2021-08-17 2021-08-17 Telephone Loree, 1.2.840.1 [id number] 2100 [id number] Methodi 00:00:00 00:00:[address] 3.430.2.7 Hospit a .3.584991 l .8 2021-08-17 2021-08-17 Orders Loree, 1.2.840.1 [id number] Methodi 00:00:00 00:00:00 Only Angelica 62276.1.[address] 3.430.2.7 Hospit a .3.830141 l .8 2021-07-28 2021-07-28 Orders Loree, 1.2.840.1 [id number] Methodi 00:00:00 00:00:00 Only Angelica 69314.1.[address] 3.430.2.7 Hospit a .3.335944 l .8 2021-07-24 2021-07-24 Orders Loree, 1.2.840.1 [id number] 7283 Methodi 00:00:00 00:00:00 Only Angelica 11072.1.[address] 3.430.2.7 Hospit a .3.653016 l .8 2021-07-06 2021-07-06 Telephone [facility], [facility] [id number] 2020 [id number] Univers 00:00:00 00:00:00 Maksim MENCHACA 350.1.13.10 i ty of [place] [id number] [place] [id number] [facility] 2021-07-05 2021-07-05 Documentat Jerry 1.2.840.1 [id number] Methodi 00:00:00 00:00:00 ion Maame rod 19911.1.[address] 3.430.2.7 Hospit a .3.724381 l .8 2021-06-30 2021-06-30 Telephone Makenna, 1.2.840.1 [id number] 2099 [id number] Methodi 00:00:00 00:00:[address] 3.430.2.7 Hospit a .3.329893 l .8 2021-06-30 2021-06-30 Orders Doctor JASON 1.2.840.[id number] [place] [address] 00:00:00 00:00:00 Only Unassigned, TAYLOR 350.1.13.10 ity of [place] [facility] 4.2.7.2.686 Lj as [id number] [address] 2021-06-29 2021-06-29 Telephone Loree 1.2.840.1 [id number] 2099 [id number] Methodi 00:00:00 00:00:[address] 3.430.2.7 Hospit a .3.081043 l .8 2021-06-28 2021-06-28 Outpatient ALPESH GRANADOS [facility] [id number] [place] 00:00:00 00:00:[address] 2021-06-28 2021-06-28 Travel 1.2.840.1 1.2.335.649 [id number] Methodi 00:00:00 00:00:[address] 3.430.2.7 0.2.7.3.698 Ho spita .3.913348 084.8 l .8 2021-06-24 2021-06-24 Telephone Loree, 1.2.840.1 [id number] 2100 [id number] Methodi 00:00:00 00:00:[address] 3.430.2.7 Hospit a .3.588550 l .8 2021-06-23 2021-06-23 [facility] [id number] 21 [id number] Methodi 09:37:15 23:59:[address] 3.430.2.7 Hospit a .3.624319 l .8 2021-06-23 2021-06-23 Office Simran Carr 1.2.840.1 [id number] Methodi 13:15:00 13:30:00 Visit Nawaf Wynn 77534.1.[address] 3.430.2.7 Hospit a .3.136832 l .8 2021-06-23 2021-06-23 [facility] 1.2.840.1 [id number] 21 [id number] Methodi 07:46:16 09:36:[address] 3.430.2.7 Hospit a .3.938351 l .8 2021-06-23 2021-06-23 Outpatient [facility] 2099 [id number] [place] 00:00:00 00:00:[address] 2021-06-23 2021-06-23 Outpatient [facility] 2099 [id number] [place] 00:00:00 00:00:[address] 2021-06-23 2021-06-23 Outpatient [facility] 2099 [id number] [place] 00:00:00 00:00:[address] 2021-06-23 2021-06-23 Travel 1.2.840.1 1.2.662.784 [id number] Methodi 00:00:00 00:00:[address] 3.430.2.7 0.2.7.3.698 Ho spita .3.733696 084.8 l .8 2021-06-23 2021-06-23 Outpatient PERRY, [facility] 93456 [id number] [place] 00:00:00 00:00:00 SIMRAN [address] 2021-06-23 2021-06-23 Outpatient ANJU, [facility] [id number] [place] 00:00:00 00:00:[address] 2021-06-17 2021-06-17 Telemedici Champ, 1.2.840.1 [id number] [id number] Methodi 13:00:00 13:55:08 ne Heron 55822.1.1 [address] Watson 3.430.2.7 Hospit a .3.583636 l .8 2021-06-17 2021-06-17 Telephone Dimitrios, 1.2.840.1 [id number] 2099 [id number] Methodi 00:00:00 00:00:00 Fidelina Shaw 02472.1.[address] 3.430.2.7 Hospit a .3.622314 l .8 2021-06-17 2021-06-17 Telephone Wing, 1.2.840.1 [id number] 2099 [id number] Methodi 00:00:00 00:00:[address] 3.430.2.7 Hospit a .3.074944 l .8 2021-06-17 2021-06-17 Telephone Wing, 1.2.840.1 [id number] 2099 [id number] Methodi 00:00:00 00:00:[address] 3.430.2.7 Hospit a .3.166794 l .8 2021-06-17 2021-06-17 Outpatient BERNARDINODAQUAN, [facility] [id number] 734 [place] 00:00:00 00:00:00 HERON [address] 2021-06-16 2021-06-16 Orders Concetta, 1.2.840.1 [id number] Methodi 00:00:00 00:00:00 Only Ashrith 22430.1.[address] 3.430.2.7 Hospit a .3.464106 l .8 2021-06-16 2021-06-16 Orders Concetta, 1.2.840.1 [id number] Methodi 00:00:00 00:00:00 Only Ashrith 96351.1.[address] 3.430.2.7 Hospit a .3.177725 l .8 2021-06-15 2021-06-15 Telephone Makenna, 1.2.840.1 [id number] 2099 [id number] Methodi 00:00:00 00:00:[address] 3.430.2.7 Hospit a .3.096916 l .8 2021-06-13 2021-06-13 Telemedici Natacha, 1.2.840.1 [id number] Methodi 08:00:00 08:08:51 ne Ray [address]108.1.[address] 3.430.2.7 Hospit a .3.587142 l .8 2021-06-13 2021-06-13 Telephone Jones, 1.2.840.1 [id number] 2099 [id number] Methodi 00:00:00 00:00:[address] 3.430.2.7 Hospit a .3.355066 l .8 2021-06-13 2021-06-13 Travel 1.2.840.1 1.2.146.886 1005 [id number] Methodi 00:00:00 00:00:[address] 3.430.2.7 0.2.7.3.698 Ho spita .3.298770 084.8 l .8 2021-06-13 2021-06-13 Outpatient NATACHA, [facility] [id number] [place] 00:00:00 00:00:[address] RAY [address] 2021-06-08 2021-06-08 Abstract Peter, 1.2.840.1 [id number] Methodi 00:00:00 00:00:[address] 3.430.2.7 Hospit a .3.254491 l .8 2021-05-31 2021-05-31 Telephone Jaye, 1.2.840.1 [id number] Methodi 00:00:00 00:00:[address] 3.430.2.7 Hospit a .3.986799 l .8 2021-05-24 2021-05-28 Hospital Mensah Ben D. 1.2.840.1 [id number] Methodi 11:18:00 18:17:00 Encounter Angeline Tellez 43310.1.[address] 3.430.2.7 Hospit a .3.679170 l .8 2021-05-24 2021-05-28 Inpatient [facility] 064 [id number] [address] [place] 00:00:00 00:00:00 ANGELINE [address] 2021-05-27 2021-05-27 Telephone Jose Eduardo 1.2.840.1 [id number] Methodi 00:00:00 00:00:00 Tanja aguilera 08284.1.1 [address] 3.430.2.7 Hospit a .3.360110 l .8 2021-05-25 2021-05-25 Telephone Ceferino, 1.2.840.1 [id number] 2100 [id number] Methodi 00:00:00 00:00:00 Robina Duarte 34810.1.[address] 3.430.2.7 Hospit a .3.863698 l .8 2021-05-24 2021-05-24 Documentat Loree, 1.2.840.1 [id number] Methodi 00:00:00 00:00:00 ion Angelica 67741.1.[address] 3.430.2.7 Hospit a .3.023604 l .8 2021-05-23 2021-05-23 Travel 1.2.840.1 1.2.725.704 2818 [id number] Methodi 00:00:00 00:00:[address] 3.430.2.7 0.2.7.3.698 Ho spita .3.518705 084.8 l .8 2021-05-23 2021-05-23 Telephone Loree, 1.2.840.1 [id number] 2100 [id number] Methodi 00:00:00 00:00:[address] 3.430.2.7 Hospit a .3.920078 l .8 2021-05-23 2021-05-23 Orders Loree, 1.2.840.1 [id number] 9620 Methodi 00:00:00 00:00:00 Only Angelica 60211.1.[address] 3.430.2.7 Hospit a .3.385654 l .8 2021-05-23 2021-05-23 Orders Loree, 1.2.840.1 [id number] 8881 Methodi 00:00:00 00:00:00 Only Angelica 46966.1.[address] 3.430.2.7 Hospit a .3.221824 l .8 2021-05-23 2021-05-23 Outpatient [facility] [id number] [place] [address] 00:00:00 00:00:00 SIMRAN [address] 2021-05-23 2021-05-23 Outpatient [facility] [address] [place] [address] 00:00:00 00:00:00 SIMRAN [address] 2021-05-18 2021-05-18 Lab Kingsley, 1.2.840.1 [id number] 1846 Methodi 13:45:00 13:50:00 Nawaf Blair [address]398.1.[address] 3.430.2.7 Hospit a .3.965396 l .8 2021-05-18 2021-05-18 Orders Peter, 1.2.840.1 [id number] 364 [id number] Methodi 00:00:00 00:00:00 Only Ruthann 14785.1.[address] 3.430.2.7 Hospit a .3.911919 l .8 2021-05-18 2021-05-18 Outpatient [facility] [id number] 087 [place] 00:00:00 00:00:00 NAWAF [address] 2021-05-17 2021-05-17 Telephone Alpesh Granados 1.2.840.1 [id number] 2 [id number] Methodi 00:00:00 00:00:[address] 3.430.2.7 Hospit a .3.676114 l .8 2021-05-13 2021-05-13 Infusion Alpesh Granados 1.2.840.1 [id number] 21 [id number] Methodi 11:00:00 12:00:[address] 3.430.2.7 Hospit a .3.985669 l .8 2021-05-13 2021-05-13 Travel 1.2.840.1 1.2.622.158 0211 151076 Methodi 00:00:00 00:00:[address] 3.430.2.7 0.2.7.3.698 Ho spita .3.784944 084.8 l .8 2021-05-13 2021-05-13 Outpatient ALPESH GRANADOS [facility] 2100 [id number] [place] 00:00:00 00:00:[address] 2021-05-12 2021-05-12 Telephone Carloz 1.2.840.1 [id number] 2100 [id number] Methodi 00:00:00 00:00:[address] 3.430.2.7 Hospit a .3.260266 l .8 2021-05-09 2021-05-09 Office Alpesh Granados 1.2.840.1 [id number] 722 4784222 Methodi 10:45:00 15:52:27 Visit Benjy Hernandez 51463.1.[address] 3.430.2.7 Hospit a .3.650367 l .8 2021-05-09 2021-05-09 Infusion Alpesh Granados 1.2.840.1 [id number] 21 [id number] Methodi 11:30:00 13:00:[address] 3.430.2.7 Hospit a .3.580681 l .8 2021-05-09 2021-05-09 Travel 1.2.840.1 1.2.355.164 8348 109127 Methodi 00:00:00 00:00:[address] 3.430.2.7 0.2.7.3.698 Ho spita .3.713478 084.8 l .8 2021-05-09 2021-05-09 Outpatient ALPESH GRANADOS [facility] 2100 [id number] [place] 00:00:00 00:00:[address] 2021-05-09 2021-05-09 Outpatient ALPESH GRANADOS [facility] 2100 [id number] [place] 00:00:00 00:00:[address] 2021-05-06 2021-05-06 Telephone Carty, 1.2.840.1 [id number] 2099 901336 Methodi 00:00:00 00:00:[address] 3.430.2.7 Hospit a .3.957668 l .8 2021-05-06 2021-05-06 Documentat Renteria, 1.2.840.1 [id number] 21 [id number] Methodi 00:00:00 00:00:00 ion Elba 25049.1.[address] 3.430.2.7 Hospit a .3.065719 l .8 2021-05-06 2021-05-06 Documentat Renteria, 1.2.840.1 179949393 21 50618473 Methodi 00:00:00 00:00:00 ion Elba 91956.1.[address] 3.430.2.7 Hospit a .3.969428 l .8 2021-05-04 2021-05-04 Documentat Renteria, 1.2.840.1 [id number] 58395434 Methodi 00:00:00 00:00:00 ion Elba 55069.1.[address] 3.430.2.7 Hospit a .3.093493 l .8 2021-05-02 2021-05-02 Telemedici Natacha, 1.2.840.1 [id number] 21 [id number] Methodi 08:30:00 08:37:59 ne Ray [address]243.1.[address] 3.430.2.7 Hospit a .3.918855 l .8 2021-05-02 2021-05-02 Outpatient [facility] [id number] 8867 [place] 00:00:00 00:00:00 RAY [address] 2021-04-29 2021-04-29 Documentat Jerry 1.2.840.1 [id number] Methodi 00:00:00 00:00:[address] 3.430.2.7 Hospit a .3.316069 l .8 2021-04-29 2021-04-29 Abstract Franky, 1.2.840.1 [id number] 2100 678290 Methodi 00:00:00 00:00:[address] 3.430.2.7 Hospit a .3.500617 l .8 2021-04-29 2021-04-29 Telephone Franky, 1.2.840.1 [id number] 581 [id number] Methodi 00:00:00 00:00:[address] 3.430.2.7 Hospit a .3.249540 l .8 2021-04-29 2021-04-29 Orders Doctor JASON 1.2.840.114 719891 97 Univers 00:00:00 00:00:00 Only Unassigned, TAYLOR 350.1.13.10 ity of [place] [facility] 4.2.7.2.686 Lj as [phone] [facility] [address] 2021-04-14 2021-04-28 Office Nawaf Wynn 1.2.840.1 0020683 34 [id number] Methodi 14:15:00 16:12:07 Visit Joi Santiago 06810.1.1 651 s t 3.430.2.7 Hospit a .3.805214 l .8 2021-04-26 2021-04-26 Documentat Jeanne 1.2.840.1 [id number] 886 1541699 Methodi 00:00:00 00:00:00 ion Mariola 65886.1.[address] 3.430.2.7 Hospit a .3.637451 l .8 2021-04-22 2021-04-22 Travel 1.2.840.1 1.2.257.340 4990 739427 Methodi 00:00:00 00:00:[address] 3.430.2.7 0.2.7.3.698 Ho spita .3.154167 084.8 l .8 2021-04-22 2021-04-22 Telephone Av 1.2.840.1 [id number] 451 [id number] Methodi 00:00:00 00:00:[address] 3.430.2.7 Hospit a .3.660750 l .8 2021-04-14 2021-04-21 Office Nawaf Wynn 1.2.840.1 4867704 34 [id number] Methodi 14:45:00 12:56:39 Visit Lottie Kraft 38262.1.[address] 3.430.2.7 Hospit a .3.145877 l .8 2021-04-18 2021-04-18 [facility] Alpesh Granados 1.2.840.1 [id number] 21 [id number] Methodi 08:00:00 23:59:[address] 3.430.2.7 Hospit a .3.872407 l .8 2021-04-18 2021-04-18 Travel 1.2.840.1 1.2.076.297 5776 159760 Methodi 00:00:00 00:00:[address] 3.430.2.7 0.2.7.3.698 Ho spita .3.094178 084.8 l .8 2021-04-18 2021-04-18 Outpatient ALPESH GRANADOS [facility] 2100 [id number] [place] 00:00:00 00:00:[address] 2021-04-16 2021-04-16 [facility] 287191 4386 Univers 15:34:00 16:27:00 PORSCHE quintero [facility] 2021-04-16 2021-04-16 [facility] 1.2.840.114 91 371710 Univers 15:34:00 16:27:00 Porsche MENCHACA 350.1.13.10 ingrid [facility] 4.2.7.2.686 [facility] [phone] [address] 2021-04-16 2021-04-16 Anaid Quick, 1.2.840.1 [id number] Methodi 13:30:00 13:45:00 Urgent Crystal 29286.1.[address] Care 3.430.2.7 Hospit a .3.186721 l .8 2021-04-16 2021-04-16 Outpatient [facility] [id number] 943 [place] 00:00:00 00:00:[address] 2021-04-15 2021-04-15 Hospital Shayy Mclaughlin 1.2.840.1 [id number] Methodi 13:13:00 20:46:00 Encounter Dayna 86926.1.[address] 3.430.2.7 Hospit a .3.079130 l .8 2021-04-15 2021-04-15 Surgery Lissette, 1.2.840.1 [id number] 062878 7631 Methodi 17:16:00 18:36:[address] Vaughn 3.430.2.7 Hospit a Tellez .3.508442 l .8 2021-04-15 2021-04-15 Travel 1.2.840.1 1.2.422.934 3561 422991 Methodi 00:00:00 00:00:[address] 3.430.2.7 0.2.7.3.698 Ho spita .3.406471 084.8 l .8 2021-04-15 2021-04-15 Outpatient SHAYY [facility] 279 [id number] 292 [place] 00:00:00 00:00:[address] 2021-04-14 2021-04-14 [facility] [id number] Methodi 10:00:00 23:59:[address] 3.430.2.7 Hospit a .3.052241 l .8 2021-04-14 2021-04-14 Office Nawaf Wynn 1.2.840.1 [id number] 34 [id number] Methodi 14:00:00 14:15:00 Visit Simran Carr 62183.1.[address] 3.430.2.7 Hospit a .3.572571 l .8 2021-04-14 2021-04-14 [facility] Alpesh Granados 1.2.840.1 [id number] [id number] Methodi 06:41:00 09:59:[address] 3.430.2.7 Hospit a .3.647251 l .8 2021-04-14 2021-04-14 Travel 1.2.840.1 1.2.903.920 0038 625629 Methodi 00:00:00 00:00:[address] 3.430.2.7 0.2.7.3.698 Ho spita .3.731443 084.8 l .8 2021-04-14 2021-04-14 Katherine Ley 1.2.840.1 [id number] Methodi 00:00:00 00:00:00 Only Krissy 90693.1.[address] 3.430.2.7 Hospit a .3.959499 l .8 2021-04-14 2021-04-14 Katherine Ley 1.2.840.1 [id number] Methodi 00:00:00 00:00:00 Only Krissy 55298.1.[address] 3.430.2.7 Hospit a .3.475404 l .8 2021-04-14 2021-04-14 Outpatient ALPESH GRANADOS [facility] 2100 [id number] [place] 00:00:00 00:00:[address] 2021-04-14 2021-04-14 Outpatient ALPESH GRANADOS [facility] 2100 [id number] [place] 00:00:00 00:00:[address] 2021-04-14 2021-04-14 Outpatient ALPESH GRANADOS [facility] 2100 [id number] [place] 00:00:00 00:00:[address] 2021-04-14 2021-04-14 Outpatient KINGSLEY [facility] [id number] 655 [place] 00:00:00 00:00:00 NAWAF [address] 2021-04-14 2021-04-14 [facility] [id number] 571 [place] 00:00:00 00:00:00 NAWAF [address] 2021-04-14 2021-04-14 [facility] [id number] 571 [place] 00:00:00 00:00:00 NAWAF [address] 2021-04-14 2021-04-14 [facility] [id number] 572 [place] 00:00:00 00:00:00 NAWAF [address] 2021-04-13 2021-04-13 Social Kingsley 1.2.840.1 [id number] 105142 1058 Methodi 14:00:00 15:30:00 Work Nawaf Blair 99044.1.[address] 3.430.2.7 Hospit a .3.495601 l .8 2021-04-13 2021-04-13 Clinical Nawaf Wynn 1.2.840.1 331213 231 [id number] Methodi 11:00:00 12:00:00 Support Consuelo Brand 37919.1.[address] 3.430.2.7 Hospit a .3.267388 l .8 2021-04-13 2021-04-13 Yuly Wynn 1.2.840.1 [id number] 2100 579714 Methodi 09:00:00 10:00:00 Nawaf Blair 74158.1.[address] 3.430.2.7 Hospit a .3.103761 l .8 2021-04-13 2021-04-13 Documentat Provider, 1.2.840.1 [id number] 2 [id number] Methodi 00:00:00 00:00:[address]01[address]1.[address] 3.430.2.7 Hospit a .3.019483 l .8 2021-04-13 2021-04-13 Documentat Breezy, 1.2.840.1 [id number] 21 13863499 Methodi 00:00:00 00:00:[address] Jewell [address].1.[address] 3.430.2.7 Hospit a .3.697140 l .8 2021-04-13 2021-04-13 Orders Loree, 1.2.840.1 [id number] 641951 6993 Methodi 00:00:00 00:00:00 Only Angelica 76495.1.[address] 3.430.2.7 Hospit a .3.134756 l .8 2021-04-13 2021-04-13 Travel 1.2.840.1 1.2.591.041 4488 875307 Methodi 00:00:00 00:00:[address] 3.430.2.7 0.2.7.3.698 spita .3.129693 084.8 l .8 2021-04-13 2021-04-13 Documentat Av, 1.2.840.1 [id number] 21 [id number] Methodi 00:00:00 00:00:[address].1.[address] 3.430.2.7 Hospit a .3.950941 l .8 2021-04-13 2021-04-13 [facility] [id number] 575 [place] 00:00:00 00:00:00 NAWAF [address] [facility] 2021-04-13 2021-04-13 [facility] [id number] [address] [place] [address] 00:00:00 00:00:00 NAWAF [address] 2021-04-13 2021-04-13 Outpatient ALPESH GRANADOS [facility] 2100 [id number] [place] 00:00:00 00:00:[address] 2021-04-13 2021-04-13 Outpatient KINGSLEY [facility] [id number] 575 [place] 00:00:00 00:00:00 NAWAF [address] 2021-04-12 2021-04-12 [facility] Alpesh Granados 1.2.840.1 [id number] 790 [id number] Methodi 07:55:00 08:00:[address] 3.430.2.7 Hospit a .3.989881 l .8 2021-04-12 2021-04-12 Outpatient ALPESH GRANADOS [facility] 2100 [id number] [place] 00:00:00 00:00:[address] 2021-04-12 2021-04-12 [facility] [id number] 943 [place] 00:00:00 00:00:00 NAWAF [address] 2021-04-11 2021-04-11 [facility] Jordy 1.2.840.1 [id number] 3 [id number] Methodi 14:03:46 23:59:00 Encounter Darwin Alpesh 41664.1.[address] 3.430.2.7 Hospit a .3.469126 l .8 2021-04-11 2021-04-11 [facility] Jordy 1.2.840.1 [id number] 3 [id number] Methodi 14:03:13 23:59:00 Encounter Alpesh Granados 21721.1.[address] 3.430.2.7 Hospit a .3.669601 l .8 2021-04-11 2021-04-11 [facility] Jordy 1.2.840.1 [id number] 6 [id number] Methodi 13:16:36 14:02:00 Encounter Darwin Alpesh 55041.1.[address] 3.430.2.7 Hospit a .3.783710 l .8 2021-04-11 2021-04-11 [facility] Jordy 1.2.840.1 [id number] 6 [id number] Methodi 13:16:20 14:02:00 Encounter Alpesh Granados 77133.1.[address] 3.430.2.7 Hospit a .3.064372 l .8 2021-04-11 2021-04-11 [facility] 1.2.840.1 [id number] 7 [id number] Methodi 11:25:13 13:15:00 Encounter Alpesh Granados 42886.1.[address] 3.430.2.7 Hospit a .3.459825 l .8 2021-04-11 2021-04-11 [facility] 1.2.840.1 [id number] 3 [id number] Methodi 09:14:01 11:24:00 Encounter Alpesh Granados 54037.1.[address] 3.430.2.7 Hospit a .3.697519 l .8 2021-04-11 2021-04-11 [facility] 1.2.840.1 [id number] 3 [id number] Methodi 09:13:40 09:13:40 Encounter Alpesh Granados 83342.1.[address] 3.430.2.7 Hospit a .3.649681 l .8 2021-04-11 2021-04-11 [facility] 12.840.1 [id number] 839 1462204 Methodi 09:13:02 09:13:02 Encounter Not In 63309.1.[address] System 3.430.2.7 Hospit a .3.251187 l .8 2021-04-11 2021-04-11 [facility] 1.2.840.1 [id number] 3 [id number] Methodi 09:12:39 09:12:39 Encounter Alpesh Granados [address]420.1.[address] 3.430.2.7 Hospit a .3.386825 l .8 2021-04-11 2021-04-11 [facility] 1.2.840.1 [id number] 4 [id number] Methodi 08:32:00 09:11:00 Encounter Alpesh Granados 39422.1.[address] 3.430.2.7 Hospit a .3.015739 l .8 2021-04-11 2021-04-11 [facility] Alpesh Granados 1.2.840.1 [id number] 21 [id number] Methodi 06:56:38 08:31:[address] 3.430.2.7 Hospit a .3.596249 l .8 2021-04-11 2021-04-11 Travel 1.2.840.1 1.2.255.616 4822 326013 Methodi 00:00:00 00:00:[address] 3.430.2.7 0.2.7.3.698 Ho spita .3.399139 084.8 l .8 2021-04-11 2021-04-11 Outpatient ALPESH GRANADOS [facility] 2100 [id number] [place] 00:00:00 00:00:00 622 Method i 2021-04-11 2021-04-11 Outpatient ZARCO, [facility] [id number] 586 [place] 00:00:00 00:00:00 JORDY [address] 2021-04-11 2021-04-11 Outpatient ZARCO, [facility] [id number] 585 [place] 00:00:00 00:00:00 JORDY [address] 2021-04-11 2021-04-11 Outpatient [facility] [id number] 585 [place] 00:00:00 00:00:[address] 2021-04-11 2021-04-11 Outpatient ZARCO, [facility] [id number] 586 [place] 00:00:00 00:00:00 JORDY [address] 2021-04-11 2021-04-11 Outpatient ZARCO, [facility] [id number] 586 [place] 00:00:00 00:00:00 JORDY [address] 2021-04-11 2021-04-11 Outpatient ZARCO, [facility] [id number] 585 [place] 00:00:00 00:00:00 JORDY [address] 2021-04-11 2021-04-11 Outpatient ALPESH GRANADOS [facility] 2100 [id number] [place] 00:00:00 00:00:[address] 2021-04-11 2021-04-11 Outpatient DARWIN, [facility] 2100 [id number] [place] 00:00:00 00:00:[address] 2021-04-11 2021-04-11 Outpatient DARWIN, [facility] 2100 [id number] [place] 00:00:00 00:00:[address] 2021-04-11 2021-04-11 Outpatient DARWIN, [facility] 2100 [id number] [place] 00:00:00 00:00:[address] 2021-04-08 2021-04-08 Telephone Av, 1.2.840.1 [id number] 429 [id number] Methodi 00:00:00 00:00:[address] 3.430.2.7 Hospit a .3.607385 l .8 2021-04-07 2021-04-07 Outpatient R RADIOLOGY [facility] 55793 03857 Univers 10:54:54 23:59:00 ity of [facility] 2021-04-07 2021-04-07 Hospital Radiology [facility] 1.2.840.114 915 80846 Univers 10:54:54 23:59:00 Encounter [place] 350.1.13.10 ity [facility] 4.2.7.2.686 [facility] [id number] [address] 2021-04-07 2021-04-07 Orders Semones, 1.2.840.1 [id number] Methodi 00:00:00 00:00:00 Only Lottie 05193.1.[address] 3.430.2.7 Hospit a .3.300544 l .8 2021-04-01 2021-04-01 Travel 1.2.840.1 1.2.330.440 4102 440830 Methodi 00:00:00 00:00:[address] 3.430.2.7 0.2.7.3.698 Ho spita .3.914752 084.8 l .8 2021-04-01 2021-04-01 Orders Loree, 1.2.840.1 [id number] 389941 7269 Methodi 00:00:00 00:00:00 Only Angelica 89548.1.[address] 3.430.2.7 Hospit a .3.694295 l .8 2021-04-01 2021-04-01 Telephone Dimitrios, 1.2.840.1 [id number] 2099 221392 Methodi 00:00:00 00:00:00 Fidelina Shaw 33300.1.[address] 3.430.2.7 Hospit a .3.055063 l .8 2021-03-31 2021-03-31 Telephone Dexter, 1.2.840.1 [id number] 946 7199372 Methodi 00:00:00 00:00:[address] 3.430.2.7 Hospit a .3.595549 l .8 2021-03-30 2021-03-30 Documentat Breezy, 1.2.840.1 [id number] Methodi 00:00:00 00:00:00 [address] Jew[address]64.1.[address] 3.430.2.7 Hospit a .3.491416 l .8 2021-03-28 2021-03-28 Travel 1.2.840.1 1.2.295.208 4389 504699 Methodi 00:00:00 00:00:[address] 3.430.2.7 0.2.7.3.698 Ho spita .3.659279 084.8 l .8 2021-03-18 2021-03-18 Telephone Jessica OHARA 1.2.890.726 2929 0096 Univers 00:00:00 00:00:00 Maksim MENCHACA 350.1.13.10 i ty of [place] 4.2.7.2.686 Nabeel IVAN [phone] [place] dical NAL 5 [facility] 2021-03-18 2021-03-18 Orders Doctor JASON 1.2.840.114 [id number] Univers 00:00:00 00:00:00 Only Unassigned, TAYLOR 350.1.13.10 ity of [place] [facility] 4.2.7.2.686 Lj as [phone] [facility] [address] 2021-03-10 2021-03-15 Inpatient X LEIDA [facility] AJ [id number] 0489 Univers 09:07:00 15:15:00 TERESO ity [facility] 2021-03-10 2021-03-15 [facility] Robert Fountain [facility] 1.2.840.1 14 [id number] Univers 09:07:00 15:15:00 Encounter Leida Tereso NIKOLAI 350.1.13.10 ity [facility] 4.2.7.2.[place] [facility] [id number] [facility] [address] 2021-03-04 2021-03-04 Telephone Dimitrios, 1.2.840.1 [id number] 2100 [id number] Methodi 00:00:00 00:00:00 Fidelina Shaw 67585.1.[address] 3.430.2.7 Hospit a .3.838519 l .8 2021-03-04 2021-03-04 Telephone Yanci Escobar [facility] 1.2.840.114 [id number] Univers 00:00:00 00:00:00 E NIKOLAI 350.1.13.10 i ty [facility] 4.2.7.2.686 [phone] [facility] 296 [facility] 2021-03-02 2021-03-02 [facility], 1.2.840.1 [id number] 04324 12465 Methodi 14:22:00 23:59:00 Encounter Nawaf Blair 36166.1.[address] 3.430.2.7 Hospit a .3.100510 l .8 2021-03-02 2021-03-02 [facility], 1.2.840.1 [id number] 59834 58866 Methodi 14:19:20 14:21:00 Encounter Nawaf Blair 44596.1.[address] 3.430.2.7 Hospit a .3.420113 l .8 2021-03-02 2021-03-02 [facility] [id number] [address] [place] [address] 00:00:00 00:00:00 NAWAF [address] 2021-03-02 2021-03-02 Outpatient KINGSLEY [facility] [id number] 830 [place] 00:00:00 00:00:00 NAWAF [address] 2021-02-22 2021-02-22 Telephone Loree, 1.2.840.1 [id number] 2100 [id number] Methodi 00:00:00 00:00:[address] 3.430.2.7 Hospit a .3.222208 l .8 2021-02-21 2021-02-21 Transplant Jovani Boyle 1.2.840.1 10 0313963 [id number] Methodi 15:30:00 15:30:00 Telemedici Alpesh Granados 96980.1.[address] ne 3.430.2.7 Hospit a .3.336600 l .8 2021-02-21 2021-02-21 [facility] [id number] 091 [place] 00:00:00 00:00:00 JOVANI [address] 2021-02-21 2021-02-21 Orders Doctor JASON 1.2.840.114 [id number] Univers 00:00:00 00:00:00 Only Unassigned, TAYLOR 350.1.13.10 ity of [place] [facility] 4.2.7.2.686 Lj as [phone] [address] 2021-02-18 2021-02-18 Telephone Loree, 1.2.840.1 [id number] 2099 125265 Methodi 00:00:00 00:00:[address] 3.430.2.7 Hospit a .3.673017 l .8 2021-02-11 2021-02-11 Telephone Sunday, 1.2.840.1 [id number] 2100 275908 Methodi 00:00:00 00:00:[address] 3.430.2.7 Hospit a .3.046454 l .8 2021-01-20 2021-01-20 Orders Doctor JASON 1.2.840.114 [id number] Univers 00:00:00 00:00:00 Only Unassigned, TAYLOR 350.1.13.10 ity of [place] [facility] 4.2.7.2.686 Lj as [phone] [facility] [address] 2021-01-17 2021-01-17 Transition NANDA Yang 1.2.840.114 [id number] Univers 00:00:00 00:00:00 of Care Carlos DESHPADNE 350.1.13.10 [place] [phone] [facility] [address] 2021-01-11 2021-01-14 [facility] [id number] Univers 11:53:00 15:15:00 PREETI koribrigitte of [facility] 2021-01-11 2021-01-14 [facility] Idalia Bowman [facility] 1.2.840. 114 [id number] Univers 11:53:00 15:15:00 Encounter Preeti Andersen 350.1.13.10 ity [facility] [place] [phone] [facility] [address] 2021-01-11 2021-01-14 Inpatient X NATHALY [facility] AJ [id number] Univers 11:53:00 15:15:00 PREETI quintero [facility] 2021-01-10 2021-01-10 Telephone Jessica [facility] 1.2.457.966 [id number] Univers 00:00:00 00:00:00 Maksim MENCHACA 350.1.13.10 i ty [place] [phone] [place] [id number] [facility] 2021-01-06 2021-01-06 Outpatient R MAKSIM LOPEZ [facility] 10 [id number] Univers 12:00:00 12:00:00 MAKSIM LOPEZ i ty of [facility] 2020-12-27 2021-01-04 Inpatient 3 RodneysarahJONO PUL [id number] [place] 18:28:00 13:20:00 Pablo [facility] [place] lianna 2020-12-28 2020-12-28 Transition NANDA Yang 1.2.840.114 [id number] [id number] Univers 00:00:00 00:00:00 of Care Carlos COPEY 350.1.13.10 [place] [phone] [facility] [address] 2020-12-17 2020-12-27 Inpatient X NATHALY [facility] AJ [id number] Univers 08:38:00 17:06:00 PREETI quintero [facility] 2020-12-17 2020-12-27 [facility] Robert [facility] 1.2.840.1 14 [id number] Univers 08:38:00 17:06:00 Encounter Preeti Andersen 350.1.13.10 ity [place] [phone] [facility] [address] 2020-12-24 2020-12-24 [facility] 1.2.840.1 [id number] Methodi 00:00:00 00:00:[address] milton Renata [address]482.1.[address] 3.430.2.7 Hospit a .3.540501 l .8 2020-12-23 2020-12-23 Telephone Jessica [facility] 1.2.985.513 [id number] Univers 00:00:00 00:00:00 Maksim MENCHACA 350.1.13.10 i ty [place] [phone] [place] 379745 Branch [facility] 2020-12-02 2020-12-02 Travel 1.2.840.1 1.2.438.307 2172 [id number] Methodi 00:00:00 00:00:[address] 3.430.2.7 0.2.7.3.698 Ho spita .3.458184 084.8 l .8 2020-12-02 2020-12-02 Telephone PASCUAL Braga 1.2.840.114 [id number] Univers 00:00:00 00:00:00 Robbie [facility] 350.1.13.10 ity of [place] [phone] [facility] [address] 2020-11-29 2020-11-29 Office Guillermo, 1.2.840.1 [id number] 4818 Methodi 11:50:00 12:46:42 Visit Apoor 67250.1.[address] 3.430.2.7 Hospit a .3.173782 l .8 2020-11-29 2020-11-29 Refill Sandhu, 1.2.840.1 [id number] 6846 Methodi 00:00:00 00:00:[address] 3.430.2.7 Hospit a .3.226149 l .8 2020-11-29 2020-11-29 Orders Sandhu, 1.2.840.1 [id number] 6504 Methodi 00:00:00 00:00:00 Only Caitlin 95436.1.[address] 3.430.2.7 Hospit a .3.484812 l .8 2020-11-29 2020-11-29 Travel 1.2.840.1 1.2.642.413 8381 810169 Methodi 00:00:00 00:00:[address] 3.430.2.7 0.2.7.3.698 spita .3.488332 084.8 l .8 2020-11-29 2020-11-29 Outpatient [facility] [id number] [address] [place] 00:00:00 00:00:00 APOOR [address] 2020-11-29 2020-11-29 Transition Nanda Yang 1.2.840.114 [id number] [id number] [facility] 00:00:00 00:00:00 of Care Carlos Copey 350.1.13.10 ity [place] [phone] [facility] [address] 2020-11-23 2020-11-27 [facility] Robert Fountain [facility] 1.2.840.1 14 [id number] [facility] 10:43:00 14:00:00 Encounter Preeti Andersen 350.1.13.10 ity of [place] 4.2.7.2.686 [facility] [id number] [facility] [address] 2020-10-08 2020-10-19 Inpatient SHENG, [facility] 064 [id number] [place] 00:00:00 00:00:00 LOREN 049 Metho di 2020-10-05 2020-10-05 [facility] [id number] 00:00:00 00:00:00 NAOMI 135 Metho di 2020-09-27 2020-09-27 Outpatient R RADIOLOGY [facility] [id number] [facility] 00:00:00 00:00:00 ity of [facility] 2020-09-15 2020-09-15 [facility] [id number] [place] 00:00:00 00:00:00 NAOMI 349 Metho di 2020-08-11 2020-08-11 Transition Nanda Yang 1.2.840.114 [id number] [facility] 00:00:00 00:00:00 of Care Carlos Deshpande 350.1.13.10 ity of [place] 4.2.7.2.686 [facility] [phone] [facility] [address] 2020-08-08 2020-08-10 Emergency Porsche Moore [facility] 1.2.8 40.114 [id number] [facility] 14:08:00 13:20:00 Tereso Casarez 350.1.13.10 ity of Enrique 4.2.7.2.686 [facility] [id number] [facility] [address] 2020-07-22 2020-07-22 Transition Nanda Yang 1.2.840.114 [id number] 00:00:00 00:00:00 of Care Carlos Deshpande 350.1.13.10 [place] 4.2.7.2.686 [id number] [facility] 2020-07-22 2020-07-22 Transition Nanda Yang 1.2.840.114 [id number] Univers 00:00:00 00:00:00 of Care Carlos Deshpande 350.1.13.10 ity of [place] 4.2.7.2.686 [facility] [phone] [facility] [address] 2020-07-15 2020-07-21 [facility] 1.2.840.1 14 [id number] 18:18:00 19:03:00 Encounter Ocampo, Yenni Taylor 350.1.13.10 [facility] 4.2.7.2. 686 Davon Pizarro [phone] 0 2020-07-15 2020-07-21 [facility] Sarah Mary Garcia 1.2.840.1 14 [id number] [facility] 18:18:00 19:03:00 Encounter Ocampo, Yenni Taylor 350.1.13.10 ity of [facility] 4.2.7.2. 686 [place] Davon Pizarro [phone] [address] 2020-07-20 2020-07-20 Outpatient R RUFUS, [facility] [id number] Univers 14:00:00 14:00:00 JOHN quintero o f [facility] 2020-07-13 2020-07-13 [facility] Radiology [facility] 1.2.840.114 [id number] 14:12:26 23:59:00 Encounter Nikolai 350.1.13.10 [place] 4.2.7.2.686 [place] [id number] 801 2020-07-13 2020-07-13 [facility] Radiology [facility] 1.2.840.114 [id number] Univers 14:12:26 23:59:00 Encounter [place] 350.1.13.10 ity of [place] 4.2.7.2.686 [facility] [id number] [facility] [address] 2020-07-13 2020-07-13 Outpatient R RADIOLOGY [facility] [id number] Univers 00:00:00 00:00:00 ity of [facility] 2020-06-22 2020-06-22 Orders Doctor GOMEZ 1.2.840.114 [id number] 00:00:00 00:00:00 Only Unassigned, TAYLOR 350.1.13.10 [place] [facility] 4.2.7.2.686 [id number] 009 2020-06-22 2020-06-22 Orders Doctor JASON 1.2.840.114 [id number] Univers 00:00:00 00:00:00 Only Unassigned, TAYLOR 350.1.13.10 ity of [place] [facility] 4.2.7.2.686 Lj as [phone] [facility] [address] 2020-06-14 2020-06-14 Transition Nanda Yang 1.2.840.114 [id number] 00:00:00 00:00:00 of Care Carlos Garces Deshpande 350.1.13.10 [place] 4.2.7.2.686 [id number] [id number] 2020-06-14 2020-06-14 Transition Nanda Yang 1.2.840.114 [id number] Univers 00:00:00 00:00:00 of Care Carlos Garces Deshpande 350.1.13.10 ity [place] [phone] [facility] [address] 2020-06-10 2020-06-12 [facility] Robert Fountain [facility] 1.2.840.1 14 [id number] Univers 22:55:00 14:52:00 Encounter Preeti Andersen 350.1.13.10 ity of Richar Garcia 4.2.7.2.686 [facility] [phone] [facility] [address] 2020-06-10 2020-06-12 Inpatient X ISABELL [facility] [id number] Univers 22:55:00 14:52:00 RICHAR quintero [facility] 2020-06-07 2020-06-07 Outpatient GC_WPSA_Awa PRIV PRIV 206 [id number] [facility] 11:41:00 11:41:00 n_R [id number] Medica l 2020-06-03 2020-06-03 Outpatient GC_WPSA_Awa PRIV PRIV 206 [id number] [facility] 03:16:00 03:16:00 n_R [id number] Medica l 2020-06-03 2020-06-03 Shayla Ganesh PRIV DE - [facility] [id number] [facility] 00:00:00 00:00:00 MD Bruna: [facility] Med [facility] [id number] [facility]WPSA[facility], Office [address], [place] [address] , Ph. 2020-06-03 2020-06-03 Outpatient Bruna Shayla PRIV PRIV [id number] 00:00:00 00:00:00 Ganesh [id number] 2020-06-03 2020-06-03 Outpatient Bruna Shayla PRIV PRIV [id number] 00:00:00 00:00:00 Ganesh [id number] 2020-05-12 2020-05-12 [facility] 1.2.840.114 [id number] 14:29:00 23:59:00 Encounter Rupa H 350.1.13.10 BUILDING [id number] [facility] 2020-05-12 2020-05-12 [facility] 1.2.840.114 [id number] [facility] 14:29:00 23:59:00 Encounter [facility]upa [facility].13.10 [facility] 4.2.7.2.686 Lj as [id number] [address] 2020-05-12 2020-05-12 [facility] [id number] [facility] 00:00:00 00:00:00 RUPA quintero [facility] 2020-05-11 2020-05-11 Office Cesario OHARA 1.2.840.114 [id number] 12:47:23 15:00:26 Visit [facility] 350.1.13.10 Surgical 4.2.7.2.686 Specialti [phone] [address] [place] 2020-05-11 2020-05-11 Office Cesario [facility] 1.2.840.114 [id number] Univers 12:47:23 15:00:26 Visit [facility] 350.1.13.10 it y of Surgical 4.2.7.2.686 Lj as Specialti [phone] [place] dical es 198 [facility] 2020-05-11 2020-05-11 Outpatient [facility] [id number] Univers 13:00:00 13:00:00 [facility] 2020-05-10 2020-05-10 Telephone [facility] 1.2.840.114 [id number] Univers 00:00:00 00:00:00 [facility] 350.1.13.10 it y of Surgical 4.2.7.2.686 Lj as Specialti [phone] Nc dical es 198 [facility] 2020-05-04 2020-05-04 Outpatient [facility] [id number] Univers 14:15:00 14:15:00 [facility] 2020-05-04 2020-05-04 Telephone [facility] 1.2.840.114 [id number] Univers 00:00:00 00:00:00 [facility] 350.1.13.10 it y of Surgical 4.2.7.2.686 Lj as Specialti [id number] Nc dical es 198 [facility] 2020-04-21 2020-04-21 Orders Doctor GOMEZ 1.2.840.114 [id number] Univers 00:00:00 00:00:00 Only Unassigned, TAYLOR 350.1.13.10 ity of [place] [facility] 4.2.7.2.686 Lj as [phone] [facility] [address] [place] 2020-04-13 2020-04-13 [facility] 1.2.840.114 [id number] Univers 00:00:00 00:00:00 Outreach Wayne LOVE 350.1.13.10 i ty of [facility] 4.2.7.2.[place] [id number] [place] [address] [place] 2020-03-29 2020-03-29 Orders Doctor GOMEZ 1.2.840.114 [id number] Univers 00:00:00 00:00:00 Only Unassigned, TAYLOR 350.1.13.10 ity of [place] [facility] 4.2.7.2.686 Lj as [phone] [address] 2020-03-03 2020-03-03 Orders Doctor JASON 1.2.840.114 [id number] Univers 00:00:00 00:00:00 Only Unassigned, TAYLOR 350.1.13.10 ity of [place] [facility] 4.2.7.2.686 Lj as [phone] [address] 2020-02-04 2020-02-04 Orders Doctor JASON 1.2.840.114 [id number] Univers 00:00:00 00:00:00 Only Unassigned, TAYLOR 350.1.13.10 ity of [place] [facility] 4.2.7.2.686 Lj as [phone] [facility] [address] [place] 2019-12-22 2019-12-22 Hospital Radiology [facility] 1.2.840.114 [id number] Univers 12:34:42 23:59:00 Encounter Nikolai 350.1.13.10 ity of [place] 4.2.7.2.686 [facility] [phone] [facility] [address] 2019-12-22 2019-12-22 Outpatient R RADIOLOGY [facility] [id number] Univers 00:00:00 00:00:00 ity of [facility] 2019-11-24 2019-11-24 Orders Doctor GOMEZ 1.2.840.114 [id number] Univers 00:00:00 00:00:00 Only Unassigned, TAYLOR 350.1.13.10 ity of [place] [facility] 4.2.7.2.686 Lj as [phone] [facility] [address] 2019-09-20 2019-09-21 Emergency , [facility] 1.2.491.607 [id number] Univers 22:42:00 02:53:00 Robert Menchaca 350.1.13.10 i ty [place]2.[place] [phone] [facility] [address] 2019-08-26 2019-08-26 Telephone Jacob Munoz 1.2.840.11 [id number] Univers 00:00:00 00:00:00 Ceferino Brigitte HEALTH 350.1.13.10 i ty of CLIN[facility] 4.2.7.2.686 [facility] [phone] [facility] [address] [place] 2019-08-20 2019-08-20 Office [facility] 1.2.840.114 [id number] Univers 15:02:58 16:18:49 Visit No [facility] 350.1.13.10 it y of Surgical 4.2.7.2.686 Lj as Specialti [phone] Nc dical es 198 [facility] 2019-08-20 2019-08-20 Outpatient [facility] [id number] Univers 15:15:00 15:15:00 NO [facility] 2019-08-20 2019-08-20 Orders Doctor JASON 1.2.840.114 [id number] Univers 00:00:00 00:00:00 Only Unassigned, TAYLOR 350.1.13.10 ity of [place] [facility] 4.2.7.2.686 Lj as [phone] [facility] [address] [place] 2019-08-19 2019-08-19 Outpatient [facility] [id number] Common 13:47:00 13:47:00 t [facility] 2019-07-14 2019-07-15 Emergency [facility] ERT [id number] Univers 21:29:13 00:54:00 SEAN [facility] 2019-07-14 2019-07-15 [facility] 1.2.122.469 [id number] Univers 21:29:13 00:54:00 Sean Menchaca 350.1.13.10 i ty of [place] 4.2.7.2.686 [facility] [phone] [facility] [address] [place] 2019-06-24 2019-06-24 Orders Doctor JASON 1.2.840.114 [id number] Univers 00:00:00 00:00:00 Only UnassignedTAYLOR 350.1.13.10 ity of [place] [facility] 4.2.7.2.686 Lj as [id number] [facility] [address] 2019-06-18 2019-06-18 Outpatient R JOANNE [facility] [id number] Univers 10:30:00 10:30:00 AVRIL ity of [facility] 2019-06-12 2019-06-12 RefCE CooperIT 1.2.125.995 [id number] Univers 00:00:00 00:00:00 Franco Y HEALTH 350.1.13.10 ity of CLIN[place].2.[place] [phone] [facility] [address] 2019-06-11 2019-06-11 Outpatient R [facility] [id number] Univers 15:00:00 15:00:00 ity of [facility] 2019-06-11 2019-06-11 Telemedici Fellow, Pulmonary UNIVERSIT 1.2 .840.114 [id number] Univers 08:16:04 08:46:04 ne Visit Hany Valdes [facility] HEALTH 350.1 .13.10 ity of CLIN[place].7.2.[place] [phone] [facility] [address] 2019-05-30 2019-05-30 Transition Jennifer Kleinnani 1.2.840.114 [id number] Univers 00:00:00 00:00:00 of Care Sheron Deshpande 350.1.13.10 it y of [place].2.[place] [phone] [facility] [address] 2019-05-22 2019-05-29 Inpatient R JACOB MUNOZ [facility] [id number] Univers 21:22:00 15:13:00 ity of [facility] 2019-05-22 2019-05-29 Hospital Jacob Munoz 1.2.840 .114 [id number] Univers 21:22:00 15:13:00 Encounter Antony Pollard 350.1.13.10 ity of [facility] 4.2.7.2.686 Lj as [phone] [facility] [address] [place] 2019-05-22 2019-05-22 Telemedici Jacob Munoz 1.2.840.1 14 [id number] Univers 07:53:51 08:23:51 ne Visit Ceferino Y [facility] 350.1.13.10 ity of CLIN[place] [phone] [address] 2019-05-14 2019-05-14 Telephone PASCUAL Golden 1.2.840.114 [id number] Univers 00:00:00 00:00:[address] [facility] [facility] 350.1.13.10 i ty of [place] [phone] [address] 2019-04-18 2019-04-18 Emergency X [facility] ERT [id number] Univers 01:12:24 03:15:00 STUART ity of [facility] 2019-04-18 2019-04-18 Emergency [facility] 1.2.878.614 [id number] Univers 01:12:24 03:15:00 Stuart [place] 350.1.13.10 i ty [place]2.[place] [phone] [address] 2019-04-11 2019-04-11 Letter [facility] 1.2.840.114 [id number] Univers 00:00:00 00:00:00 (Out) Kalen MULTISPEC 350.1.13.10 ity of [place].2.[place] [phone] [facility] AND [address] DIAB[facility]ES [facility]IC 2019-04-10 2019-04-10 [facility] UNIVERSIT 1.2.840.114 [id number] Univers 09:23:25 09:38:25 Visit Preeti Lamar HEALTH 350.1.13.10 ity of CLIN[place] 4[place].7.2.[place] [phone] [facility] [address] 2019-04-10 2019-04-10 Office Dar Golden 1.2.8 40.114 [id number] Univers 07:52:48 09:10:16 Visit Preeti Lamar HEALTH 350.1.13.10 ity of CLIN[place].2.[place] [id number] [address] 2019-04-10 2019-04-10 Outpatient R BRIANDA [facility] [id number] Univers 08:00:00 08:00:00 PREETI quintero [facility] 2019-04-10 2019-04-10 Orders Doctor GOMEZ 1.2.840.114 [id number] Univers 00:00:00 00:00:00 Only Unassigned, TAYLOR 350.1.13.10 ity of [place] [facility] 4.2.7.2.686 Lj as [phone] [facility] [address] 2019-03-18 2019-03-18 Inpatient E [facility] 7500 [facility] 20:07:00 14:57:00 2019-03-18 2019-03-18 Transition Nanda Klein 1.2.840.114 [id number] Univers 00:00:00 00:00:00 of Care Sheron Deshpande 350.1.13.10 it y of [place].2.[place] [id number] [facility] [address] [place] 2019-03-13 2019-03-16 [facility] [id number] Univers 13:15:05 17:20:00 DAVON ity [facility] 2019-03-13 2019-03-16 [facility] Carol Patiño 1.2.840. 114 [id number] Univers 13:15:05 17:20:00 Encounter Davon Pizarro 350.1.1 3.10 ity of [place] [facility] 4.2.7.2.686 [place] [phone] [facility] [address] 2019-03-13 2019-03-13 Transition Nanda Klein 1.2.840.114 [id number] Univers 00:00:00 00:00:00 of Care Sheron Deshpande 350.1.13.10 it y of [place].2.[place] [id number] [facility] [address] [place] 2019-03-09 2019-03-12 [facility] So Oleary [facility] 1.2.840.1 14 [id number] Univers 14:20:20 11:50:00 Encounter Brianne Hickey 350.1.13.10 ity of [place] 4.2.7.2.686 [facility] [phone] [place] [address] 2019-03-09 2019-03-12 Inpatient X EDELMIRA [facility] [id number] Univers 14:20:20 11:50:00 BRIANNE ity [facility] 2018-02-06 2018-02-06 Outpatient [facility] [id number] Common 15:15:00 15:15:00 t [facility] pirit [facility] 2018-01-03 2018-01-03 Outpatient [facility] [id number] Common 09:30:00 09:30:[facility] 2017-09-13 2017-09-13 Out[facility] [id number] Common 08:00:00 08:00:00 t [facility] 2017-09-06 2017-09-06 Outpatient [facility] 14 [id number] Common 10:00:00 10:00:00 t [facility] Results Test Description Test Time Test Comments Results Result Comments Source BASIC METABOLIC PANEL (NA, K, CL, CO2, GLUCOSE, BUN, 2021-11 18:25:56 CREATININE, CA) Test Item Value Reference Range Interpretation Comme nts NA (test code = 7760352146) 140 mmol/L 135-145 K (test code = 2163033140) 4.0 mmol/L 3.5-5 CL (test code = 3865354590) 93 mmol/L 98-108 L CO2 TOTAL (test code = 6759415083) 38 mmol/L 23-31 H AGAP (test code = 6158151326) 2-16 BUN (test code = 5709864435) 14 mg/dL 7-23 GLUCOSE (test code = 8398597734) 105 mg/dL 70-110 CREATININE (test code = 0.51 mg/dL 0.5-1.04 4356339214) CALCIUM (test code = 5081425442) 9.7 mg/dL 8.6-10.6 eGFR (test code = 4666802507) mL/min/1.73m2 KYLE (test code = KYLE) Association of Glomerular Filtration Rate (GFR) and Staging of Kidney Disease* + +-------- + ------+| GFR (mL/min/1.73 m2) ?| With Kidney Damage ?| ?Without Kidney Damage+ +-- + +| ?>90 ?| ?Stage one ?| ? Normal ?+ +------- + -------+| ?60-89 ?| ?Stage two ?| ? Decreased GFR ? + +-------- + ------+| ?30-59 ?| ?Stage three ?| ? Stage three ? + +-------- + ------+| ?15-29 ?| ?Stage four ? | ? Stage four ?+ +------- + -------+| ?<15 (or dialysis) ? ?| ?Stage five ? | ? Stage five ?+ +------- + -------+ *Each stage assumes the associated GFR level has been in effect for at least three months. ?Stages 1 to 5, with or without kidney disease, indicate chronic kidney disease. Notes: Determination of stages one and two (with eGFR >59mL/min/1.73 m2) requires estimation of kidney damage for at least three months as defined by structural or functional abnormalities of the kidney, manifested by either:Pathological abnormalities or Markers of kidney damage (including abnormalities in the composition of the blood or urine or abnormalities in imaging tests). Lab Interpretation (test code = Abnormal 91963-4) [facility] WITH [id number] 18:09:35 Test Item Value Reference Range Interpretation Comments WBC (test code = See_Comment [Automated 8139-2) message] The sy stem which generated this result transmitted reference range : 4.30 - 11.10 10*3/?L. The reference range was not used to interpret this result as normal/abnormal . RBC (test code = See_Comment L [Automated 378-8) message] The sy stem which generated this result transmitted reference range : 3.93 - 5.25 10*6/?L. The reference range was not used to interpret this result as normal/abnormal . HGB (test code = 10.5 g/dL 11.6-15 L 718-7) HCT (test code = 34.1 % 35.7-45.2 L 4544-3) MCV (test code = 95.0 fL 80.6-95.5 787-2) MCH (test code = 29.2 pg 25.9-32.8 785-6) MCHC (test code = 30.8 g/dL 31.6-35.1 L 786-4) RDW-SD (test code = 42.8 fL 39-49.9 33756-9) RDW-CV (test code = 12.2 % 12-15.5 788-0) PLT (test code = See_Comment [Automated 777-3) message] The sy stem which generated this result transmitted reference range : 166 - 358 10*3/ ?L. The reference r arnulfo was not used to interpret this result as normal/abnormal . MPV (test code = 10.1 fL 9.5-12.9 42513-1) NRBC/100 WBC (test See_Comment [Automat ed code = 8130824136) message] The system which generated this result transmitted reference range : 0.0 - 10.0 /100 WBCs. The refer ence range was not u sed to interpret th is result as normal/abnormal . NRBC x10^3 (test code See_Comment [Auto mated = 5844814049) message] The s ystem which generated this result transmitted reference range : 10*3/?L. The reference range was not used to interpret this result as normal/abnormal . GRAN MAT (NEUT) % 69.9 % (test code = 770-8) IMM GRAN % (test code 0.30 % = 9407287065) LYMPH % (test code = 18.2 % 736-9) MONO % (test code = 6.9 % 5905-5) EOS % (test code = 4.2 % 713-8) BASO % (test code = 0.5 % 706-2) GRAN MAT x10^3(ANC) 4.04 10*3/uL 1.88-7.09 (test code = 5822431021) IMM GRAN x10^3 (test 0-0.06 code = 4197299229) LYMPH x10^3 (test code 1.05 10*3/uL 1.32-3.29 L = 731-0) MONO x10^3 (test code 0.40 10*3/uL 0.33-0.92 = 742-7) EOS x10^3 (test code = 0.24 10*3/uL 0.03-0.39 711-2) BASO x10^3 (test code 0.03 10*3/uL 0.01-0.07 = 704-7) Lab Interpretation Abnormal (test code = 88073-1) [facility] [id number] 18:39:47 Test Item Value Reference Interpretation Comments Range TROPONIN I (test 0.004 ng/mL See_Comment [Automated code = 2905162814) message] The system which generated this result transmitted reference range : <=0.034. The reference range was not used to interpret this result as normal/abnormal . KYLE (test code = Reference (Normal) KYLE) Range (defined by the 99th percentile reference limit): <= 0.034 ng/mL Note: Cardiac troponin begins to rise 3-4 hours after the onset of ischemia. Repeat in 4-6 hours if the sample was drawn within 3-4 hours of the onset of the symptom and found normal. Diagnosis of myocardial injury is made with acute changes in cTn concentrations with at least one serial sample above the 99th percentile upper reference limit (URL), taken together with the patient's clinical presentation. Biotin has been reported to cause a negative bias, interpret results relative to patient's use of biotin. Lab Interpretation Normal (test code = 40248-4) [facility] [id number] 18:36:10 Test Item Value Reference Range Interpretation Comments NT-proBNP (test code 236 pg/mL See_Comment H [Autom ated = 3357439597) message] The system which generated this result transmitted reference range : <=125. The reference range was not used to interpret this result as normal/abnormal . KYLE (test code = KYLE) Biotin has been reported to cause a negative bias, interpret results relative to patient's use of biotin. Lab Interpretation Abnormal (test code = 54025-6) [facility] METABOLIC PANEL (NA, K, CL, CO2, GLUCOSE, BUN, CREATININE, CA)2021-09-14 18:26:46 Test Item Value Reference Range Interpretation Comments NA (test code = 137 mmol/L 135-145 6693124420) K (test code = 4.0 mmol/L 3.5-5 8061398344) CL (test code = 92 mmol/L 98-108 L 5311883587) CO2 TOTAL (test code = 38 mmol/L 23-31 H 6097537148) AGAP (test code = 2-16 3641807102) BUN (test code = 10 mg/dL 7-23 7543784949) GLUCOSE (test code = 110 mg/dL 70-110 8593887413) CREATININE (test code = 0.47 mg/dL 0.5-1.04 L 7711192293) CALCIUM (test code = 9.4 mg/dL 8.6-10.6 3694875851) eGFR (test code = mL/min/1.73m2 7770591831) KYLE (test code = KYLE) Association of Glomerular Filtration Rate (GFR) and Staging of Kidney Disease* + --+ --+ ------+| GFR (mL/min/1.73 m2) ?| With Kidney Damage ?| ?Without Kidney Damage+ --------+ --------+ +| ?>90 ?| ?Stage one ?| ? Normal ?+ ---+ ---+ -------+| ?60-89 ?| ?Stage two ?| ? Decreased GFR ? + --+ --+ ------+| ?30-59 ?| ?Stage three ?| ? Stage three ? + --+ --+ ------+| ?15-29 ?| ?Stage four ? | ? Stage four ?+ ---+ ---+ -------+| ?<15 (or dialysis) ? ?| ?Stage five ? | ? Stage five ?+ ---+ ---+ -------+ *Each stage assumes the associated GFR level has been in effect for at least three months. ?Stages 1 to 5, with or without kidney disease, indicate chronic kidney disease. Notes: Determination of stages one and two (with eGFR >59mL/min/1.73 m2) requires estimation of kidney damage for at least three months as defined by structural or functional abnormalities of the kidney, manifested by either:Pathological abnormalities or Markers of kidney damage (including abnormalities in the composition of the blood or urine or abnormalities in imaging tests). Lab Interpretation Abnormal (test code = 93962-1) [facility] WITH [id number] 18:23:24 Test Item Value Reference Range Interpretation Comments WBC (test code = See_Comment H [Automated 6690-2) message] The sy stem which generated this result transmitted reference range : 4.30 - 11.10 10*3/?L. The reference range was not used to interpret this result as normal/abnormal . RBC (test code = See_Comment L [Automated 789-8) message] The sy stem which generated this result transmitted reference range : 3.93 - 5.25 10*6/?L. The reference range was not used to interpret this result as normal/abnormal . HGB (test code = 11.1 g/dL 11.6-15 L 718-7) HCT (test code = 36.0 % 35.7-45.2 4544-3) MCV (test code = 94.7 fL 80.6-95.5 787-2) MCH (test code = 29.2 pg 25.9-32.8 785-6) MCHC (test code = 30.8 g/dL 31.6-35.1 L 786-4) RDW-SD (test code = 44.6 fL 39-49.9 12081-9) RDW-CV (test code = 12.9 % 12-15.5 788-0) PLT (test code = See_Comment [Automated 777-3) message] The sy stem which generated this result transmitted reference range : 166 - 358 10*3/ ?L. The reference r arnulfo was not used to interpret this result as normal/abnormal . MPV (test code = 9.6 fL 9.5-12.9 93052-8) NRBC/100 WBC (test See_Comment [Automat ed code = 4496528299) message] The system which generated this result transmitted reference range : 0.0 - 10.0 /100 WBCs. The refer ence range was not u sed to interpret th is result as normal/abnormal . NRBC x10^3 (test code See_Comment [Auto mated = 2853926928) message] The s ystem which generated this result transmitted reference range : 10*3/?L. The reference range was not used to interpret this result as normal/abnormal . GRAN MAT (NEUT) % 74.6 % (test code = 770-8) IMM GRAN % (test code 0.50 % = 0982484980) LYMPH % (test code = 14.8 % 736-9) MONO % (test code = 7.8 % 5905-5) EOS % (test code = 2.1 % 713-8) BASO % (test code = 0.2 % 706-2) GRAN MAT x10^3(ANC) 9.57 10*3/uL 1.88-7.09 H (test code = 3160128411) IMM GRAN x10^3 (test 0.06 10*3/uL 0-0.06 code = 9134534504) LYMPH x10^3 (test code 1.90 10*3/uL 1.32-3.29 = 731-0) MONO x10^3 (test code 1.00 10*3/uL 0.33-0.92 H = 742-7) EOS x10^3 (test code = 0.27 10*3/uL 0.03-0.39 711-2) BASO x10^3 (test code 0.01-0.07 = 704-7) Lab Interpretation Abnormal (test code = 07719-5) [facility] Metabolic Panel (NA, K, CL, CO2, GLUCOSE, BUN, CREATININE, CA)2021-09-03 10:31:24 Test Item Value Reference Range Interpretation Comments NA (test code = 140 mmol/L 135-145 4248171189) K (test code = 4.3 mmol/L 3.5-5 9469855867) CL (test code = 97 mmol/L 98-108 L 3324316001) CO2 TOTAL (test code = 38 mmol/L 23-31 H 2370280903) AGAP (test code = 2-16 3268881204) BUN (test code = 16 mg/dL 7-23 4113781639) GLUCOSE (test code = 102 mg/dL 70-110 2927260620) CREATININE (test code = 0.53 mg/dL 0.5-1.04 7392088513) CALCIUM (test code = 9.1 mg/dL 8.6-10.6 8382738269) eGFR (test code = mL/min/1.73m2 6015558592) KYLE (test code = KYLE) Association of Glomerular Filtration Rate (GFR) and Staging of Kidney Disease* + --+ --+ ------+| GFR (mL/min/1.73 m2) ?| With Kidney Damage ?| ?Without Kidney Damage+ --------+ --------+ +| ?>90 ?| ?Stage one ?| ? Normal ?+ ---+ ---+ -------+| ?60-89 ?| ?Stage two ?| ? Decreased GFR ? + --+ --+ ------+| ?30-59 ?| ?Stage three ?| ? Stage three ? + --+ --+ ------+| ?15-29 ?| ?Stage four ? | ? Stage four ?+ ---+ ---+ -------+| ?<15 (or dialysis) ? ?| ?Stage five ? | ? Stage five ?+ ---+ ---+ -------+ *Each stage assumes the associated GFR level has been in effect for at least three months. ?Stages 1 to 5, with or without kidney disease, indicate chronic kidney disease. Notes: Determination of stages one and two (with eGFR >59mL/min/1.73 m2) requires estimation of kidney damage for at least three months as defined by structural or functional abnormalities of the kidney, manifested by either:Pathological abnormalities or Markers of kidney damage (including abnormalities in the composition of the blood or urine or abnormalities in imaging tests). Lab Interpretation Abnormal (test code = 12293-8) [facility] (ALB,T.PRO,BILI T,BU/BC,ALT,AST,ALK PHOS)2021-09-03 10:31:24 Test Item Value Reference Range Interpretation Comments TOTAL BILI (test code = 0754351556) 0.2 mg/dL 0.1-1.1 BILI UNCON (test code = 4004188171) 0.0 mg/dL 0.1-1.1 L BILI CONJ (test code = 5982310264) 0.0 mg/dL 0-0.3 T PROTEIN (test code = 3344204153) 7.0 g/dL 6.3-8.2 ALBUMIN (test code = 5298147712) 3.7 g/dL 3.5-5 ALK PHOS (test code = 9664487778) 74 U/L 34-122 ALTv (test code = 1742-6) 12 U/L 5-35 AST(SGOT) (test code = 8713240480) 23 U/L 13-40 Lab Interpretation (test code = Abnormal 66804-0) [facility] with Loidbgtqicja6306-20-40 10:30:23 Test Item Value Reference Range Interpretation Comments WBC (test code = See_Comment L [Automated 6690-2) message] The sy stem which generated this result transmitted reference range : 4.30 - 11.10 10*3/?L. The reference range was not used to interpret this result as normal/abnormal . RBC (test code = See_Comment L [Automated 789-8) message] The sy stem which generated this result transmitted reference range : 3.93 - 5.25 10*6/?L. The reference range was not used to interpret this result as normal/abnormal . HGB (test code = 9.6 g/dL 11.6-15 L 718-7) HCT (test code = 30.4 % 35.7-45.2 L 4544-3) MCV (test code = 92.7 fL 80.6-95.5 787-2) MCH (test code = 29.3 pg 25.9-32.8 785-6) MCHC (test code = 31.6 g/dL 31.6-35.1 786-4) RDW-SD (test code = 42.2 fL 39-49.9 17748-0) RDW-CV (test code = 12.4 % 12-15.5 788-0) PLT (test code = See_Comment [Automated 777-3) message] The sy stem which generated this result transmitted reference range : 166 - 358 10*3/ ?L. The reference r arnulfo was not used to interpret this result as normal/abnormal . MPV (test code = 10.4 fL 9.5-12.9 56522-5) NRBC/100 WBC (test See_Comment [Automat ed code = 5605273926) message] The system which generated this result transmitted reference range : 0.0 - 10.0 /100 WBCs. The refer ence range was not u sed to interpret th is result as normal/abnormal . NRBC x10^3 (test code See_Comment [Auto mated = 6726390219) message] The s ystem which generated this result transmitted reference range : 10*3/?L. The reference range was not used to interpret this result as normal/abnormal . GRAN MAT (NEUT) % 61.7 % (test code = 770-8) IMM GRAN % (test code 0.30 % = 9785622756) LYMPH % (test code = 23.9 % 736-9) MONO % (test code = 14.1 % 5905-5) EOS % (test code = 0.0 % 713-8) BASO % (test code = 0.0 % 706-2) GRAN MAT x10^3(ANC) 2.46 10*3/uL 1.88-7.09 (test code = 3698684839) IMM GRAN x10^3 (test 0-0.06 code = 3675030555) LYMPH x10^3 (test code 0.95 10*3/uL 1.32-3.29 L = 731-0) MONO x10^3 (test code 0.56 10*3/uL 0.33-0.92 = 742-7) EOS x10^3 (test code = 0.03-0.39 L 711-2) BASO x10^3 (test code 0.01-0.07 = 704-7) Lab Interpretation Abnormal (test code = 59916-1) [facility] rsoioev6077-03-24 12:13:00 Test Item Value Reference Range Interpretation Comments AFB culture No growth after Specimen isolate ([facility] Information[facility] 543-9) incubation. Source: Biopsy Specimen Site: RUL BX KYLE (test code Received in = KYLE) [facility] ulwkjdr5815-80-51 12:15:00 Test Item Value Reference Range Interpretation Comments Fungus culture No growth after Specimen isolate (test 4 [facility] InformationSpe [facility] code = 580-1) incubation. Source: Biopsy Specimen Site: RUL BX KYLE (test code Received in = KYLE) [facility] cwahxgcb0853-87-14 14:05:12 Test Item Value Reference Range Interpretation Comments Six Minute Walk Distance (ft) (test Feet code = 7665) Six Minute Walk Distance (m) (test 100 m 380.98-658.98 code = 7614) Six Minute Walk Distance Predicted (test code = 5645) Six Minute Walk Distance % Predicted 19.2 % (test code = 5646) SP02 at Rest (test code = 7617) 98 % SP02 at after 1 minute (test code = 96 % 7630) SP02 at after 2 minutes (test code = 95 % 7636) SP02 at after 3 minutes (test code = 88 % 7642) SP02 at after 4 minutes (test code = 93 % 7648) SP02 at after 5 minutes (test code = 97 % 7654) SP02 at after 6 minutes (test code = 93 % 7660) Heart Rate at Rest (test code = 72 1/min 7615) Heart Rate after 1 minute (test code 84 1/min = 7629) Heart Rate after 2 minutes (test 90 1/min code = 7635) Heart Rate after 3 minutes (test 89 1/min code = 7641) Heart Rate after 4 minutes (test 84 1/min code = 7647) Heart Rate after 5 minutes (test 82 1/min code = 7653) Heart Rate after 6 minutes (test 86 1/min code = 7659) Supplemental O2 During Rest (test 0 L/min code = 7624) Supplemental O2 after 1 minute (test 0 L/min code = 7634) Supplemental O2 after 2 minutes 0 L/min (test code = 7640) Supplemental O2 after 3 minutes 2 L/min (test code = 7646) Supplemental O2 after 4 minutes 4 L/min (test code = 7652) Supplemental O2 after 5 minutes 4 L/min (test code = 7658) Supplemental O2 after 6 minutes 4 L/min (test code = 7664) BP Systolic at Rest (test code = mmHg 7622) BP Systolic after 6 minutes (test mmHg code = 7662) BP Diastolic at Rest (test code = mmHg 7623) BP Diastolic after 6 minutes (test mmHg code = 7663) Wanda Dyspnea Scale at Rest (test code = 7619) Wanda Dyspnea Scale after 6 minutes (test code = 7661) Lowest SpO2 (test code = 7618) 88 % Highest Heart Rate (test code = BPM 7616) Lap Count (test code = 7625) Premature Stop (test code = 7621) Number of Stops (test code = 7626) Gait Speed (test code = 7627) sec Lap Distance in meters (test code = 40 m 7620) [facility]2022-05-19 12:47:12 Test Item Value Reference Range Interpretation Comments FEV1 Pre (test code = 0.33 L 1.79-2.89 5348) FEV1 Predicted (test code = 5302) FEV1 LLN (test code = 5347) FEV1 % Pre of 13.9 % Predicted (test code = 5308) FVC Pre (test code = 0.92 L 2.39-3.69 5354) FVC Predicted (test code = 5307) FVC LLN (test code = 5353) FVC % Pre of Predicted 30.3 % (test code = 5355) FEV1/FVC % Pre (test 35.46 % 68.05-87.64 code = 5361) FEV1/FVC % Predicted (test code = 5359) FEV1/FVC % LLN (test code = 5360) FEV1/FVC % Pre of 45.6 % Predicted (test code = 5362) FEF 25-75% Pre (test 0.13 L/s 1.03-3.35 code = 5547) FEF 25-75% Predicted (test code = 5546) FEF 25-75% LLN (test code = 5545) FEF 25-75% % Pre of 5.9 % Predicted (test code = 5548) PEF Pre (test code = 1.32 L/s 4.33-7.54 5367) PEF Predicted (test code = 5310) PEF LLN (test code = 5366) PEF % Pre of Predicted 22.3 % (test code = 5368) DLCO Pre (test code = See_Comment [Auto mated message] 5496) The system Poken generated this result transmitted ref erence range: 14.19 - 27.19 ml/(min*mmHg). The reference range was not used to interpr et this result as normal/abnormal . DLCO Predicted (test code = 5421) DLCO LLN (test code = 5422) DLCO % Pre of 14.3 % Predicted (test code = 5424) DLCOc Pre (test code = See_Comment [Aut omated message] 5430) The system Poken generated this result transmitted ref erence range: 14.19 - 27.19 ml/(min*mmHg). The reference range was not used to interpr et this result as normal/abnormal . DLCOc Predicted (test code = 5428) DLCOc LLN (test code = 5429) DLCOc % Pre of 15.8 % Predicted (test code = 5431) DL/VA Pre (test code = See_Comment [Aut omated message] 5437) The system Poken generated this result transmitted ref erence range: 3.20 - 5 .84 ml/(min*mmHg*L) . The reference range was not used to interpr et this result as normal/abnormal . DL/VA Predicted (test code = 5435) DL/VA LLN (test code = 5436) DL/VA % Pre of 29.5 % Predicted (test code = 5438) KCOc SB Pre (test code See_Comment [Aut omated message] = 5535) The system Poken generated this result transmitted ref erence range: 3.20 - 5 .84 ml/(min*mmHg*L) . The reference range was not used to interpr et this result as normal/abnormal . KCOc SB Predicted (test code = 5533) KCOc SB LLN (test code = 5534) KCOc SB % Pre of 32.6 % Predicted (test code = 5536) VA SB Pre (test code = 2.21 L 3.63-5.84 5444) VA SB Predicted (test code = 5442) VA SB LLN (test code = 5443) VA SB % Pre of 46.8 % Predicted (test code = 5445) Hb Pre (test code = g(Hb)/dL 5540) [facility] kkkhaws9226-11-03 00:20:16 Test Item Value Reference Range Interpretation Comments Case number (test code = [id number]) Surgical pathology See link below for report (test code = PDF Lab Report 3693) Result status (test code This is Final Report = [id number]) for [id number] [facility] fxolscy8470-18-92 22:35:41 Test Item Value Reference Range Interpretation Comments Case number (test code = [id number]) Cytology See link below for (non-gynecological) PDF Lab Report report (test code = 1178) Result status (test code This is Final Report = [id number]) for [id number] [facility] pmkpv6021-60-81 16:49:00 Test Item Value Reference Range Interpretation Comments AFB stain No acid fast Specimen (test code = bacilli (AFB) InformationSpe cimen 676-7) seen. [facility] Site: RUL BX KYLE (test Received in code = KYLE) RPMI solution [facility] vwkxe4510-48-65 15:55:00 Test Item Value Reference Range Interpretation Comments Fungus smear No fungi Specimen (test code = observed. InformationSpec imen 1443) [facility] Site: RUL BX KYLE (test Received in code = KYLE) RPMI solution Religious MnxcxzluPWVT-CnP-3 (COVID-19) RNA [Presence] in Respiratory specimen by CONNOR with probe tnblcxiqx0628-27-47 23:07:32 Test Item Value Reference Range Interpretation Comments SARS-CoV-2 (COVID-19) RNA Not detected [Presence] in Respiratory specimen by CONNOR with probe detection (test code = 05156-8) Whether patient is employed in a Unknown healthcare setting (test code = 08192-8) Whether the patient has symptoms Unknown related to condition of interest (test code = 69129-5) Whether the patient was Unknown hospitalized for condition of interest (test code = 10348-7) Whether the patient was admitted Unknown to intensive care unit (ICU) for condition of interest (test code = 46198-0) Whether patient resides in a Unknown congregate care setting (test code = 28432-1) status (test code = Unknown 69988-9) Date and time of symptom onset Unknown (test code = 74918-9) MARISELA YE jcaceg2669-63-76 18:50:36 Test Item Value Reference Range Interpretation Comments Interpretation (test code = DQB1*02:CEXBV=DQB1 5498011) *02:01/02:219RBLO2 *03:BGCWT=DQB1*03: 01/03:276N Case number (test code = [id number]) HLA typing (test code = See link below for 7478) PDF Lab Report Religious FxgifhshA3I class 1 & 2 fqnabsnp3916-41-83 16:54:32 Test Item Value Reference Range Interpretation Comments Case number (test code = [id number]) C1Q class 1 & 2 antibody See link below for (test code = 2724589) PDF Lab Report [facility] referral [id number] 00:26:00 Test Item Value Reference Range Interpretation Comments Misc test name CMVM2 to ARUP (test code = 8263176 2566) Misc test see comment Cytomegalovirus result (test Antibody, IgM A RUP test code = 1730) code 5133494 CM V Antibody IgM <8 .0 AU/mL (Ref Interval: <=29.9) INTE RPRETIVE INFORMATION: Cytomegalovirus Antibody, IgM 2 9.9 AU/mL or Less . ...... Not Detected 30 .0-34.9 AU/mL.......... . Indeterminate-R epeat testing in 10-1 4 days may be helpful. 35.0 AU/mL or Greate r .... Detected-IgM an tibody to CMV detected which may indicate a current or recent infec tion. However, low le vels of IgM antibodies may occasionally pe rsist for more than 1 2 months post-infection. CMV serology is not useful for the evaluat ion of active or react ivated infection in immunocompromis ed patients. Molec ular diagnostic test s (i.e. PCR)are preferr ed in these cases. Th is test should not be u sed for blood donor scr eening, associated re-e ntry protocols, or f or screening Human Cell, Tissues and Laure lular and Tissue-Base d Products (HCT/P ). ======== ======== Te st performed by:[place] [address] KYLE (test code Previous comment = KYLE) was ?With reflex if positive?Release to patient (Note: If manual release option is?selected, result will auto release 10 days from?finalization .)->Immediate?Spe cimen only collected Sunday - before 1200.?Specimen cannot be collected the day before a holiday or on a?holiday. Call referral lab at [phone] if you have?questions., verified by HIS at 06:55 on 04/12/2021. [facility] HospitalSpirometry, lung volumes, MIPS/[id number] 19:11:27 Test Item Value Reference Range Interpretation Comments FEV1 Pre (test code = 0.28 L 5348) FVC Pre (test code = 0.93 L 5354) FEV1/FVC % Pre (test 29.96 % code = 5361) FEF 25-75% Pre (test 0.11 L/s code = 5547) PEF Pre (test code = 1.33 L/s 5367) VC Pre (test code = 0.86 L 5374) ERV Pre (test code = 0.38 L 5381) FRCpl Pre (test code = 5.13 L 5388) IC Pre (test code = 0.48 L 5395) RV Pre (test code = 4.74 L 5402) RV % TLC Pre (test 84.57 % code = 5409) TLC Pre (test code = 5.61 L 5416) Raw Pre (test code = cmH2O*s/L 5507) R0.5IN Pre (test code cmH2O*s/L = 5514) sR0.5IN Pre (test code cmH2O*s = 5521) sGaw Predicted (test See_Comment [Autom ated message] code = 5528) The system Poken generated this result transmitted ref erence range: 1/(cmH2O *s). The reference range was not used to interpr et this result as normal/abnormal . MIP Pre (test code = cmH2O 5451) MEP Pre (test code = cmH2O 5458) FEV1 Predicted (test code = 5302) FEV1 LLN (test code = 5347) FEV1 % Pre of 11.9 % Predicted (test code = 5308) FVC Predicted (test code = 5307) FVC LLN (test code = 5353) FVC % Pre of Predicted 30.5 % (test code = 5355) FEV1/FVC % Predicted (test code = 5359) FEV1/FVC % LLN (test code = 5360) FEV1/FVC % Pre of 38.5 % Predicted (test code = 5362) FEF 25-75% Predicted (test code = 5546) FEF 25-75% LLN (test code = 5545) FEF 25-75% % Pre of 5.1 % Predicted (test code = 5548) PEF Predicted (test code = 5310) PEF LLN (test code = 5366) PEF % Pre of Predicted 22.4 % (test code = 5368) VC Predicted (test code = 5372) VC LLN (test code = 5373) VC % Pre of Predicted 28.5 % (test code = 5375) ERV Predicted (test code = 5379) ERV LLN (test code = 5380) ERV % Pre of Predicted 50.3 % (test code = 5382) FRCpl % Predicted (test code = 5386) FRCpl % LLN (test code = 5387) FRCpl % Pre of 198 % Predicted (test code = 5389) IC Predicted (test code = 5393) IC LLN (test code = 5394) IC % Pre of Predicted 26.3 % (test code = 5396) RV Predicted (test code = 5400) RV LLN (test code = 5401) RV % Pre of Predicted 259.6 % (test code = 5403) RV % TLC Predicted (test code = 5407) RV % TLC LLN (test code = 5408) RV % TLC % Pre of 213 % Predicted (test code = 5410) TLC Predicted (test code = 5414) TLC LLN (test code = 5415) TLC % Pre of Predicted 121.8 % (test code = 5417) Raw Predicted (test code = 5505) Raw LLN (test code = 5506) Raw % Pre of Predicted 876.2 % (test code = 5508) R0.5IN Predicted (test code = 5512) R0.5IN LLN (test code = 5513) R0.5IN % Pre of 523.6 % Predicted (test code = 5515) sGaw Predicted (test code = 5526) sGaw LLN (test code = 5527) sGaw % Pre of 6.9 % Predicted (test code = 5529) MIP Predicted (test code = 5449) MIP LLN (test code = 5450) MIP % Pre of Predicted 57 % (test code = 5452) MEP Predicted (test code = 5456) MEP LLN (test code = 5457) MEP % Pre of Predicted 136.2 % (test code = 5459) [facility] hcpevedb0901-57-57 18:27:27 Test Item Value Reference Range Interpretation Comments Six Minute Walk Distance (ft) (test Feet code = 7665) Six Minute Walk Distance (m) (test 112 m 383.06-661.06 code = 7614) SP02 at Rest (test code = 7617) 86 % Heart Rate at Rest (test code = 80 1/min 7615) Supplemental O2 During Rest (test 0 L/min code = 7624) BP Systolic at Rest (test code = mmHg 7622) BP Diastolic at Rest (test code = mmHg 7623) Wanda Dyspnea Scale at Rest (test code = 7619) Lowest SpO2 (test code = 7618) 83 % Highest Heart Rate (test code = 95 1/min 7616) Lap Count (test code = 7625) Premature Stop (test code = 7621) Number of Stops (test code = 7626) Gait Speed (test code = 7627) sec Lap Distance in meters (test code = 40 m 7620) SP02 at after 1 minute (test code = 86 % 7630) Heart Rate after 1 minute (test code 88 1/min = 7629) Supplemental O2 after 1 minute (test 4 L/min code = 7634) SP02 at after 2 minutes (test code = 93 % 7636) Heart Rate after 2 minutes (test 89 1/min code = 7635) Supplemental O2 after 2 minutes 8 L/min (test code = 7640) SP02 at after 3 minutes (test code = 96 % 7642) Heart Rate after 3 minutes (test 92 1/min code = 7641) Supplemental O2 after 3 minutes 8 L/min (test code = 7646) SP02 at after 4 minutes (test code = 94 % 7648) Heart Rate after 4 minutes (test 89 1/min code = 7647) Supplemental O2 after 4 minutes 8 L/min (test code = 7652) SP02 at after 5 minutes (test code = 89 % 7654) Heart Rate after 5 minutes (test 94 1/min code = 7653) Supplemental O2 after 5 minutes 10 L/min (test code = 7658) SP02 at after 6 minutes (test code = 91 % 7660) Heart Rate after 6 minutes (test 94 1/min code = 7659) Supplemental O2 after 6 minutes 10 L/min (test code = 7664) BP Systolic after 6 minutes (test mmHg code = 7662) BP Diastolic after 6 minutes (test mmHg code = 7663) Wanda Dyspnea Scale after 6 minutes (test code = 7661) Six Minute Walk Distance Predicted (test code = 5645) Six Minute Walk Distance % Predicted 21.5 % (test code = 5646) [facility] HospitalUrinalysis screen and microscopy, with reflex to culture 2021-04-12 15:52:00 Test Item Value Reference Range Interpretation Comments Specimen site Clean catch (test code = 9865998) Color, UA (test Yellow code = 5778-6) Appearance, UA Clear (test code = 5767-9) Specific gravity, 1.001-1.035 UA (test code = 5811-5) pH, UA (test code 5.0-8.5 = 5803-2) Protein, UA (test Negative Negative code = 46200-8) Glucose, UA (test Negative Negative code = 46078-6) Ketones, UA (test Negative Negative code = 2514-8) Bilirubin, UA Negative Negative (test code = 5770-3) Blood, UA (test Negative Negative code = 5794-3) Nitrite, UA (test Negative Negative code = 5802-4) Urobilinogen, UA <2.0 See_Comment [Automated (test code = message] The sy stem 70948-7) which generated this result transmitted reference range : <=2.0. The reference range was not used to interpret this result as normal/abnormal . Leukocyte Negative Negative esterase, UA (test code = 5799-2) Epithelial cells, <1 See_Comment [Automate d UA (test code = message] The system 3487-7) which generated this result transmitted reference range : /HPF. The refer ence range was not u sed to interpret th is result as normal/abnormal . WBC, UA (test code See_Comment [Automat ed = 5821-4) message] The sy stem which generated this result transmitted reference range : 0 - 4 /HPF. The reference range was not used to interpret this result as normal/abnormal . RBC, UA (test code None seen See_Comment [Automat ed = 63536-8) message] The sy stem which generated this result transmitted reference range : 0 - 5 /HPF. The reference range was not used to interpret this result as normal/abnormal . Bacteria, UA (test None seen None seen code = 28666-0) Yeast, UA (test None seen code = 95283-5) Yeast with None seen pseudohyphae, UA (test code = 89234-1) KYLE (test code = Previous comment KYLE) was ?With reflex if positive?Release to patient (Note: If manual release option is?selected, result will auto release 10 days from?finalization .)->Immediate?Spe cimen only collected Sunday - before 1200.?Specimen cannot be collected the day before a holiday or on a?holiday. Call referral lab at [phone] if you have?questions., verified by HIS at 06:55 on 04/12/2021. [facility] Hospital[facility] yobvyfr8821-45-47 15:24:00 Test Item Value Reference Range Interpretation Comments Urine culture SEE COMMENT Bacteriuria sc reen (test code = negative. 1495639) KYLE (test code = Previous comment KYLE) was ?With reflex if positive?Release to patient (Note: If manual release option is?selected, result will auto release 10 days from?finalization. )->Immediate?Speci men only collected Sunday - before 1200.?Specimen cannot be collected the day before a holiday or on a?holiday. Call referral lab at [phone] if you have?questions., verified by HIS at 06:55 on 04/12/2021. [facility] [Presence] in Respiratory specimen by CONNOR with probe zeaauayvc6728-86-11 11:26:03 Test Item Value Reference Range Interpretation Comments SARS-CoV-2 (COVID-19) RNA Not detected [Presence] in Respiratory specimen by CONNOR with probe detection (test code = 77556-7) Whether patient is employed in a Unknown healthcare setting (test code = 12565-0) Whether the patient has symptoms Unknown related to condition of interest (test code = 58774-8) Whether the patient was Unknown hospitalized for condition of interest (test code = 63335-0) Whether the patient was admitted Unknown to intensive care unit (ICU) for condition of interest (test code = 67595-1) Whether patient resides in a Unknown congregate care setting (test code = 16488-9) status (test code = Unknown 03758-0) Date and time of symptom onset Unknown (test code = 35025-0) [facility] METABOLIC PANEL (NA, K, CL, CO2, GLUCOSE, BUN, CREATININE, CA)2021-03-15 11:04:02 Test Item Value Reference Range Interpretation Comments NA (test code = 138 mmol/L 135-145 0532880712) K (test code = 3.6 mmol/L 3.5-5.0 5671587655) CL (test code = 99 mmol/L 98-108 0077003512) CO2 TOTAL (test code = 39 mmol/L 23-31 H 6366126967) AGAP (test code = <1 2-16 L 8926152119) BUN (test code = 17 mg/dL 7-23 1466991490) GLUCOSE (test code = 101 mg/dL 70-110 6687962278) CREATININE (test code = 0.45 mg/dL 0.50-1.04 L 3419290675) CALCIUM (test code = 8.6 mg/dL 8.6-10.6 7074709435) eGFR (test code = mL/min/1.73m2 7029658575) KYLE (test code = KYLE) Association of Glomerular Filtration Rate (GFR) and Staging of Kidney Disease* + --+ --+ ------+| GFR (mL/min/1.73 m2) ?| With Kidney Damage ?| ?Without Kidney Damage+ --------+ --------+ +| ?>90 ?| ?Stage one ?| ? Normal ?+ ---+ ---+ -------+| ?60-89 ?| ?Stage two ?| ? Decreased GFR ? + --+ --+ ------+| ?30-59 ?| ?Stage three ?| ? Stage three ? + --+ --+ ------+| ?15-29 ?| ?Stage four ? | ? Stage four ?+ ---+ ---+ -------+| ?<15 (or dialysis) ? ?| ?Stage five ? | ? Stage five ?+ ---+ ---+ -------+ *Each stage assumes the associated GFR level has been in effect for at least three months. ?Stages 1 to 5, with or without kidney disease, indicate chronic kidney disease. Notes: Determination of stages one and two (with eGFR >59mL/min/1.73 m2) requires estimation of kidney damage for at least three months as defined by structural or functional abnormalities of the kidney, manifested by either:Pathological abnormalities or Markers of kidney damage (including abnormalities in the composition of the blood or urine or abnormalities in imaging tests). Lab Interpretation Abnormal (test code = 68372-5) [facility] 10:58:44 Test Item Value Reference Range Interpretation Comments MAGNESIUM (test code = 5017123026) 2.1 mg/dL 1.7-2.4 Lab Interpretation (test code = Normal 11944-0) [facility] WITH [id number] 10:08:55 Test Item Value Reference Range Interpretation Comments WBC (test code = See_Comment [Automated 6690-2) message] The sy stem which generated this result transmitted reference range : 4.30 - 11.10 10*3/?L. The reference range was not used to interpret this result as normal/abnormal . RBC (test code = See_Comment L [Automated 789-8) message] The sy stem which generated this result transmitted reference range : 3.93 - 5.25 10*6/?L. The reference range was not used to interpret this result as normal/abnormal . HGB (test code = 8.7 g/dL 11.6-15.0 L 718-7) HCT (test code = 27.8 % 35.7-45.2 L 4544-3) MCV (test code = 87.4 fL 80.6-95.5 787-2) MCH (test code = 27.4 pg 25.9-32.8 785-6) MCHC (test code = 31.3 g/dL 31.6-35.1 L 786-4) RDW-SD (test code = 43.6 fL 39.0-49.9 79149-7) RDW-CV (test code = 13.6 % 12.0-15.5 788-0) PLT (test code = See_Comment [Automated 777-3) message] The sy stem which generated this result transmitted reference range : 166 - 358 10*3/ ?L. The reference r arnulfo was not used to interpret this result as normal/abnormal . MPV (test code = 9.5 fL 9.5-12.9 19699-9) NRBC/100 WBC (test See_Comment [Automat ed code = 6318461026) message] The system which generated this result transmitted reference range : 0.0 - 10.0 /100 WBCs. The refer ence range was not u sed to interpret th is result as normal/abnormal . NRBC x10^3 (test code <0.01 See_Comment [Auto mated = 1129550600) message] The s ystem which generated this result transmitted reference range : 10*3/?L. The reference range was not used to interpret this result as normal/abnormal . GRAN MAT (NEUT) % 62.7 % (test code = 770-8) IMM GRAN % (test code 0.50 % = 7297678177) LYMPH % (test code = 27.9 % 736-9) MONO % (test code = 8.4 % 5905-5) EOS % (test code = 0.3 % 713-8) BASO % (test code = 0.2 % 706-2) GRAN MAT x10^3(ANC) 3.67 10*3/uL 1.88-7.09 (test code = 8936466083) IMM GRAN x10^3 (test 0.03 10*3/uL 0.00-0.06 code = 5060978701) LYMPH x10^3 (test code 1.63 10*3/uL 1.32-3.29 = 731-0) MONO x10^3 (test code 0.49 10*3/uL 0.33-0.92 = 742-7) EOS x10^3 (test code = <0.03 0.03-0.39 L 711-2) BASO x10^3 (test code <0.03 0.01-0.07 = 704-7) Lab Interpretation Abnormal (test code = 56655-5) [facility] 11:02:27 Test Item Value Reference Range Interpretation Comments MAGNESIUM (test code = 3720774698) 1.6 mg/dL 1.7-2.4 L Lab Interpretation (test code = Abnormal 04706-6) [facility] METABOLIC PANEL (NA, K, CL, CO2, GLUCOSE, BUN, CREATININE, CA)2021-03-14 11:02:22 Test Item Value Reference Range Interpretation Comments NA (test code = 136 mmol/L 135-145 7222347302) K (test code = 3.3 mmol/L 3.5-5.0 L 3214716829) CL (test code = 98 mmol/L 98-108 0657707404) CO2 TOTAL (test code = 37 mmol/L 23-31 H 8826818148) AGAP (test code = 2-16 L 8876596646) BUN (test code = 18 mg/dL 7-23 0941354578) GLUCOSE (test code = 100 mg/dL 70-110 0163244309) CREATININE (test code = 0.51 mg/dL 0.50-1.04 4908681282) CALCIUM (test code = 8.4 mg/dL 8.6-10.6 L 6967223572) eGFR (test code = mL/min/1.73m2 8993386615) KYLE (test code = KYLE) Association of Glomerular Filtration Rate (GFR) and Staging of Kidney Disease* + --+ --+ ------+| GFR (mL/min/1.73 m2) ?| With Kidney Damage ?| ?Without Kidney Damage+ --------+ --------+ +| ?>90 ?| ?Stage one ?| ? Normal ?+ ---+ ---+ -------+| ?60-89 ?| ?Stage two ?| ? Decreased GFR ? + --+ --+ ------+| ?30-59 ?| ?Stage three ?| ? Stage three ? + --+ --+ ------+| ?15-29 ?| ?Stage four ? | ? Stage four ?+ ---+ ---+ -------+| ?<15 (or dialysis) ? ?| ?Stage five ? | ? Stage five ?+ ---+ ---+ -------+ *Each stage assumes the associated GFR level has been in effect for at least three months. ?Stages 1 to 5, with or without kidney disease, indicate chronic kidney disease. Notes: Determination of stages one and two (with eGFR >59mL/min/1.73 m2) requires estimation of kidney damage for at least three months as defined by structural or functional abnormalities of the kidney, manifested by either:Pathological abnormalities or Markers of kidney damage (including abnormalities in the composition of the blood or urine or abnormalities in imaging tests). Lab Interpretation Abnormal (test code = 85703-4) [facility]07 11:02:02 Test Item Value Reference Range Interpretation Comments PHOSPHORUS (test code = 1898191281) 2.9 mg/dL 2.5-5.0 Lab Interpretation (test code = Normal 24693-6) [facility] (NA, K, CL, CO2, GLUCOSE, BUN, CREATININE, CA)2021-03-13 12:58:59 Test Item Value Reference Range Interpretation Comments NA (test code = 136 mmol/L 135-145 8413731420) K (test code = 3.3 mmol/L 3.5-5.0 L 2399660561) CL (test code = 99 mmol/L 98-108 7899683412) CO2 TOTAL (test code = 37 mmol/L 23-31 H 1227931601) AGAP (test code = <1 2-16 L 5239027411) BUN (test code = 23 mg/dL 7-23 1863733044) GLUCOSE (test code = 84 mg/dL 70-110 4328151304) CREATININE (test code = 0.53 mg/dL 0.50-1.04 7190604957) CALCIUM (test code = 8.8 mg/dL 8.6-10.6 0155030005) eGFR (test code = mL/min/1.73m2 9468159095) KYLE (test code = KYLE) Association of Glomerular Filtration Rate (GFR) and Staging of Kidney Disease* + --+ --+ ------+| GFR (mL/min/1.73 m2) ?| With Kidney Damage ?| ?Without Kidney Damage+ --------+ --------+ +| ?>90 ?| ?Stage one ?| ? Normal ?+ ---+ ---+ -------+| ?60-89 ?| ?Stage two ?| ? Decreased GFR ? + --+ --+ ------+| ?30-59 ?| ?Stage three ?| ? Stage three ? + --+ --+ ------+| ?15-29 ?| ?Stage four ? | ? Stage four ?+ ---+ ---+ -------+| ?<15 (or dialysis) ? ?| ?Stage five ? | ? Stage five ?+ ---+ ---+ -------+ *Each stage assumes the associated GFR level has been in effect for at least three months. ?Stages 1 to 5, with or without kidney disease, indicate chronic kidney disease. Notes: Determination of stages one and two (with eGFR >59mL/min/1.73 m2) requires estimation of kidney damage for at least three months as defined by structural or functional abnormalities of the kidney, manifested by either:Pathological abnormalities or Markers of kidney damage (including abnormalities in the composition of the blood or urine or abnormalities in imaging tests). Lab Interpretation Abnormal (test code = 48227-8) [facility] WITH [id number] 12:42:20 Test Item Value Reference Range Interpretation Comments WBC (test code = See_Comment [Automated 3256-2) message] The sy stem which generated this result transmitted reference range : 4.30 - 11.10 10*3/?L. The reference range was not used to interpret this result as normal/abnormal . RBC (test code = See_Comment L [Automated 769-8) message] The sy stem which generated this result transmitted reference range : 3.93 - 5.25 10*6/?L. The reference range was not used to interpret this result as normal/abnormal . HGB (test code = 8.6 g/dL 11.6-15.0 L 718-7) HCT (test code = 28.1 % 35.7-45.2 L 4544-3) MCV (test code = 89.2 fL 80.6-95.5 787-2) MCH (test code = 27.3 pg 25.9-32.8 785-6) MCHC (test code = 30.6 g/dL 31.6-35.1 L 786-4) RDW-SD (test code = 45.0 fL 39.0-49.9 61694-1) RDW-CV (test code = 13.8 % 12.0-15.5 788-0) PLT (test code = See_Comment [Automated 777-3) message] The sy stem which generated this result transmitted reference range : 166 - 358 10*3/ ?L. The reference r arnulfo was not used to interpret this result as normal/abnormal . MPV (test code = 9.9 fL 9.5-12.9 25145-3) NRBC/100 WBC (test See_Comment [Automat ed code = 2431167745) message] The system which generated this result transmitted reference range : 0.0 - 10.0 /100 WBCs. The refer ence range was not u sed to interpret th is result as normal/abnormal . NRBC x10^3 (test code <0.01 See_Comment [Auto mated = 4427436807) message] The s ystem which generated this result transmitted reference range : 10*3/?L. The reference range was not used to interpret this result as normal/abnormal . GRAN MAT (NEUT) % 67.4 % (test code = 770-8) IMM GRAN % (test code 0.40 % = 8701769481) LYMPH % (test code = 23.3 % 736-9) MONO % (test code = 8.7 % 5905-5) EOS % (test code = 0.1 % 713-8) BASO % (test code = 0.1 % 706-2) GRAN MAT x10^3(ANC) 4.73 10*3/uL 1.88-7.09 (test code = 9653531740) IMM GRAN x10^3 (test 0.03 10*3/uL 0.00-0.06 code = 0716033675) LYMPH x10^3 (test code 1.64 10*3/uL 1.32-3.29 = 731-0) MONO x10^3 (test code 0.61 10*3/uL 0.33-0.92 = 742-7) EOS x10^3 (test code = <0.03 0.03-0.39 L 711-2) BASO x10^3 (test code <0.03 0.01-0.07 = 704-7) Lab Interpretation Abnormal (test code = 35106-8) [facility] [id number] 11:43:29 Test Item Value Reference Range Interpretation Comments MAGNESIUM (test code = 0472754439) 1.7 mg/dL 1.7-2.4 Lab Interpretation (test code = Normal 04303-9) [facility] Metabolic Panel (NA, K, CL, CO2, GLUCOSE, BUN, CREATININE, CA)2021-03-11 11:43:09 Test Item Value Reference Range Interpretation Comments NA (test code = 136 mmol/L 135-145 1027928108) K (test code = 4.5 mmol/L 3.5-5.0 4823316746) CL (test code = 95 mmol/L 98-108 L 4785581526) CO2 TOTAL (test code = 40 mmol/L 23-31 H 7040219591) AGAP (test code = 2-16 L 9080385899) BUN (test code = 20 mg/dL 7-23 1803246264) GLUCOSE (test code = 150 mg/dL 70-110 H 1543857956) CREATININE (test code = 0.40 mg/dL 0.50-1.04 L 3232694495) CALCIUM (test code = 8.8 mg/dL 8.6-10.6 1473388666) eGFR (test code = mL/min/1.73m2 6887679141) KYLE (test code = KYLE) Association of Glomerular Filtration Rate (GFR) and Staging of Kidney Disease* + --+ --+ ------+| GFR (mL/min/1.73 m2) ?| With Kidney Damage ?| ?Without Kidney Damage+ --------+ --------+ +| ?>90 ?| ?Stage one ?| ? Normal ?+ ---+ ---+ -------+| ?60-89 ?| ?Stage two ?| ? Decreased GFR ? + --+ --+ ------+| ?30-59 ?| ?Stage three ?| ? Stage three ? + --+ --+ ------+| ?15-29 ?| ?Stage four ? | ? Stage four ?+ ---+ ---+ -------+| ?<15 (or dialysis) ? ?| ?Stage five ? | ? Stage five ?+ ---+ ---+ -------+ *Each stage assumes the associated GFR level has been in effect for at least three months. ?Stages 1 to 5, with or without kidney disease, indicate chronic kidney disease. Notes: Determination of stages one and two (with eGFR >59mL/min/1.73 m2) requires estimation of kidney damage for at least three months as defined by structural or functional abnormalities of the kidney, manifested by either:Pathological abnormalities or Markers of kidney damage (including abnormalities in the composition of the blood or urine or abnormalities in imaging tests). Lab Interpretation Abnormal (test code = 39383-3) [facility] with [id number] 11:27:44 Test Item Value Reference Range Interpretation Comments WBC (test code = See_Comment [Automated 8990-2) message] The sy stem which generated this result transmitted reference range : 4.30 - 11.10 10*3/?L. The reference range was not used to interpret this result as normal/abnormal . RBC (test code = See_Comment L [Automated 789-8) message] The sy stem which generated this result transmitted reference range : 3.93 - 5.25 10*6/?L. The reference range was not used to interpret this result as normal/abnormal . HGB (test code = 9.2 g/dL 11.6-15.0 L 718-7) HCT (test code = 30.5 % 35.7-45.2 L 4544-3) MCV (test code = 90.0 fL 80.6-95.5 787-2) MCH (test code = 27.1 pg 25.9-32.8 785-6) MCHC (test code = 30.2 g/dL 31.6-35.1 L 786-4) RDW-SD (test code = 44.7 fL 39.0-49.9 55587-9) RDW-CV (test code = 13.5 % 12.0-15.5 788-0) PLT (test code = See_Comment [Automated 777-3) message] The sy stem which generated this result transmitted reference range : 166 - 358 10*3/ ?L. The reference r arnulfo was not used to interpret this result as normal/abnormal . MPV (test code = 10.1 fL 9.5-12.9 73557-2) NRBC/100 WBC (test See_Comment [Automat ed code = 8866112720) message] The system which generated this result transmitted reference range : 0.0 - 10.0 /100 WBCs. The refer ence range was not u sed to interpret th is result as normal/abnormal . NRBC x10^3 (test code <0.01 See_Comment [Auto mated = 3475067227) message] The s ystem which generated this result transmitted reference range : 10*3/?L. The reference range was not used to interpret this result as normal/abnormal . GRAN MAT (NEUT) % 89.2 % (test code = 770-8) IMM GRAN % (test code 0.30 % = 3079995472) LYMPH % (test code = 9.4 % 736-9) MONO % (test code = 1.1 % 5905-5) EOS % (test code = 0.0 % 713-8) BASO % (test code = 0.0 % 706-2) GRAN MAT x10^3(ANC) 5.63 10*3/uL 1.88-7.09 (test code = 2211545168) IMM GRAN x10^3 (test <0.03 0.00-0.06 code = 9282498129) LYMPH x10^3 (test code 0.59 10*3/uL 1.32-3.29 L = 731-0) MONO x10^3 (test code 0.07 10*3/uL 0.33-0.92 L = 742-7) EOS x10^3 (test code = <0.03 0.03-0.39 L 711-2) BASO x10^3 (test code <0.03 0.01-0.07 = 704-7) Lab Interpretation Abnormal (test code = 36641-3) [facility] [id number] 00:54:28 Test Item Value Reference Range Interpretation Comments PHOSPHORUS (test code = 3.7 mg/dL 2.5-5.0 Slig ht hemolysis 6048799832) Lab Interpretation (test Normal code = 60144-9) [facility] NorthwestTROPONIN [id number] 16:14:02 Test Item Value Reference Interpretation Comments Range TROPONIN I (test 0.005 ng/mL See_Comment [Automated code = 3779464006) message] The system which generated this result transmitted reference range : <=0.034. The reference range was not used to interpret this result as normal/abnormal . KYLE (test code = Reference (Normal) KYLE) Range (defined by the 99th percentile reference limit): <= 0.034 ng/mL Note: Cardiac troponin begins to rise 3-4 hours after the onset of ischemia. Repeat in 4-6 hours if the sample was drawn within 3-4 hours of the onset of the symptom and found normal. Diagnosis of myocardial injury is made with acute changes in cTn concentrations with at least one serial sample above the 99th percentile upper reference limit (URL), taken together with the patient's clinical presentation. Biotin has been reported to cause a negative bias, interpret results relative to patient's use of biotin. Lab Interpretation Normal (test code = 69854-5) [facility] Northwest[facility] METABOLIC PANEL (01515)2021-03-10 15:59:39 Test Item Value Reference Range Interpretation Comments NA (test code = 136 mmol/L 135-145 3435222611) K (test code = 4.3 mmol/L 3.5-5.0 7270843902) CL (test code = 93 mmol/L 98-108 L 2037044586) CO2 TOTAL (test code = 39 mmol/L 23-31 H 8533286878) AGAP (test code = 2-16 2770295728) BUN (test code = 12 mg/dL 7-23 4269715577) GLUCOSE (test code = 121 mg/dL 70-110 H 5675968820) CREATININE (test code = 0.40 mg/dL 0.50-1.04 L 5236481652) TOTAL BILI (test code = 0.7 mg/dL 0.1-1.2 1853305093) CALCIUM (test code = 8.9 mg/dL 8.6-10.6 4796958950) T PROTEIN (test code = 7.3 g/dL 6.3-8.2 9367981215) ALBUMIN (test code = 4.1 g/dL 3.5-5.0 7361354545) ALK PHOS (test code = 92 U/L 34-122 2354636509) ALTv (test code = 9 U/L 5-35 2-6) AST(SGOT) (test code = 23 U/L 13-40 6411027768) eGFR (test code = mL/min/1.73m2 9226850066) KLYE (test code = KYLE) Association of Glomerular Filtration Rate (GFR) and Staging of Kidney Disease* + --+ --+ ------+| GFR (mL/min/1.73 m2) ?| With Kidney Damage ?| ?Without Kidney Damage+ --------+ --------+ +| ?>90 ?| ?Stage one ?| ? Normal ?+ ---+ ---+ -------+| ?60-89 ?| ?Stage two ?| ? Decreased GFR ? + --+ --+ ------+| ?30-59 ?| ?Stage three ?| ? Stage three ? + --+ --+ ------+| ?15-29 ?| ?Stage four ? | ? Stage four ?+ ---+ ---+ -------+| ?<15 (or dialysis) ? ?| ?Stage five ? | ? Stage five ?+ ---+ ---+ -------+ *Each stage assumes the associated GFR level has been in effect for at least three months. ?Stages 1 to 5, with or without kidney disease, indicate chronic kidney disease. Notes: Determination of stages one and two (with eGFR >59mL/min/1.73 m2) requires estimation of kidney damage for at least three months as defined by structural or functional abnormalities of the kidney, manifested by either:Pathological abnormalities or Markers of kidney damage (including abnormalities in the composition of the blood or urine or abnormalities in imaging tests). Lab Interpretation Abnormal (test code = 32636-4) [facility] NorthwestLIPASE, [id number] 15:58:58 Test Item Value Reference Range Interpretation Comments LIPASE (test code = 3615845953) 24 U/L 0-220 Lab Interpretation (test code = Normal 46005-1) [facility] NorthwestaPTT2022-02-03 15:44:56 Test Item Value Reference Range Interpretation Comments APTT Patient (test See_Comment [Automat ed code = 3173-2) message] The system which generated this result transmitted reference range : 23 - 38 Seconds . The reference range was not used to interpr et this result as normal/abnormal . KYLE (test code = KYLE) The [facility] patient population mean normal value for aPTT is 30 seconds. Lab Interpretation Normal (test code = 98595-1) [facility] NorthwestPROTHROMBIN TIME / [id number] 15:42:34 Test Item Value Reference Range Interpretation Comments PROTIME PATIENT (test See_Comment [Auto mated message] code = 5964-2) The system wh ich generated this result transmitted ref erence range: 12.0 - 1 4.7 Seconds. The re ference range was not u sed to interpret this result as normal/abnor mal. INR (test code = 6301-6) Nor mal INR <1.1; Warfarin Therap eutic range 2.0 to 3. 0 or 2.5 to 3.5, dep ending upon the indica tions. Lab Interpretation (test Normal code = 18402-7) [facility] NorthwestCB WITH [id number] 15:36:36 Test Item Value Reference Range Interpretation Comments WBC (test code = See_Comment H [Automated 3951-2) message] The system which generated this result transmit blayne reference range : 4.30 - 11.10 10*3/?L. The reference range was not used to interpret this result as normal/abnormal . RBC (test code = See_Comment L [Automated 909-8) message] The system which generated this result transmit blayne reference range : 3.93 - 5.25 10*6/?L. The reference range was not used to interpret this result as normal/abnormal . HGB (test code = 10.1 g/dL 11.6-15.0 L 718-7) HCT (test code = 34.0 % 35.7-45.2 L 4544-3) MCV (test code = 89.9 fL 80.6-95.5 787-2) MCH (test code = 26.7 pg 25.9-32.8 785-6) MCHC (test code = 29.7 g/dL 31.6-35.1 L 786-4) RDW-SD (test code = 45.7 fL 39.0-49.9 07853-0) RDW-CV (test code = 13.7 % 12.0-15.5 788-0) PLT (test code = See_Comment [Automated 777-3) message] The system which generated this result transmit blayne reference range : 166 - 358 10*3/ ?L. The reference range was not u sed to interpret th is result as normal/abnormal . MPV (test code = 9.7 fL 9.5-12.9 03544-6) NRBC/100 WBC (test See_Comment [Automat ed code = 7727754654) message] The system which generated this result transmit blayne reference range : 0.0 - 10.0 /100 WBCs. The reference range was not used to interpret this result as normal/abnormal . NRBC x10^3 (test code <0.01 See_Comment [Auto mated = 0747091092) message] The system which generated this result transmit blayne reference range : 10*3/?L. The reference range was not used to interpret this result as normal/abnormal . GRAN MAT (NEUT) % 83.9 % (test code = 770-8) IMM GRAN % (test code 0.40 % = 8649028856) LYMPH % (test code = 9.2 % 736-9) MONO % (test code = 4.9 % 5905-5) EOS % (test code = 1.4 % 713-8) BASO % (test code = 0.2 % 706-2) GRAN MAT x10^3(ANC) 11.59 10*3/uL 1.88-7.09 H (test code = 3202134795) IMM GRAN x10^3 (test 0.06 10*3/uL 0.00-0.06 code = 2496255080) LYMPH x10^3 (test code 1.28 10*3/uL 1.32-3.29 L = 731-0) MONO x10^3 (test code 0.68 10*3/uL 0.33-0.92 = 742-7) EOS x10^3 (test code = 0.20 10*3/uL 0.03-0.39 711-2) BASO x10^3 (test code 0.03 10*3/uL 0.01-0.07 = 704-7) Lab Interpretation Abnormal (test code = 04410-3) [facility] NorthwestSARS-CoV-2 (COVID-19) RNA [Presence] in Respiratory specimen by CONNOR with probe [id number] 19:20:03 Test Item Value Reference Range Interpretation Comments SARS-CoV-2 (COVID-19) RNA Not detected Not-Detected [Presence] in Respiratory specimen by CONNOR with probe detection (test code = 90606-7) Whether patient is employed in a healthcare setting (test code = 99821-5) Whether the patient has symptoms related to condition of interest (test code = 37866-2) Patient was hospitalized because of this condition (test code = 02383-8) Whether the patient was admitted to intensive care unit (ICU) for condition of interest (test code = 85392-9) Whether patient resides in a congregate care setting (test code = 44871-6) [facility]
--- NOTE | 2021-11-23 22:28 | RAD REPORT ---
EXAM DESCRIPTION: RAD - Chest Single View - 11/23/2021 10:14 pm CLINICAL HISTORY: CHEST PAIN Chest pain. COMPARISON: Chest Single View dated 08/02/2020; Chest Single View dated 06/08/2020; Chest Single View d ated 05/29/2020; Chest Single View dated 11/10/2019 FINDINGS: Portable technique limits examination quality. Prominent COPD is present. Reticular densities in both upper lungs, greater on the right probably rel ated to atypical infection. Irregular scarring is also present in the right apex with right hilar ulysses vation, chronic. The heart is normal in size. No displaced fractures. IMPRESSION: Prominent COPD is present.
[2021-11-23 22:48] LABS: Absolute Lymphocytes (CBC) 1.1 K/uL (0.7-4.9); Hematocrit 31.9 % (36.0-45.0); Lymphocytes % 7.2 % (15.3-44.8); MCV 89.8 fL (80-100); MPV 7.6 fL (7.6-11.3); RBC Red Blood Cell Count 3.55 M/uL (3.86-4.86)
[2021-11-23 23:22] LABS: Potassium 3.8 mmol/L (3.5-5.1); Troponin High Sensitivity 7.7 pg/mL (<58.9)
[2021-11-23] MEDS ORDERED: METHYLPREDNISOLONE 125 MG INJ ONE (23:49)
[2021-11-23] MEDS ORDERED: LEVALBUTEROL 0.63 MG/3 ML NEB ONE (23:49)
[2021-11-23] MEDS ORDERED: IPRATROPIUM BROM 0.5MG/2.5ML ONE (23:50)
[2021-11-24] MEDS ORDERED: FENTANYL CITR 100 MCG/2 ML ONE (00:01)
[2021-11-24] MEDS ORDERED: ONDANSETRON 4 MG/2 ML VIAL ONE (01:02)
--- NOTE | 2021-11-24 01:27 | ER ---
Nurse's Notes [facility] Name: Kallie Correia Age: 61 yrs Sex: Female : 1960 Arrival Date: 11/23/2021 Time: 21:25 Bed 3 Private MD: Diagnosis: COPD/ Chronic obstructive pulmonary disease with (acute) exacerbation Presentation: 11/23 21:25 Chief complaint: EMS states: toned out to pt home - chest pain \\T\\ difficulty breathing. ld1 Upon arrival to ER 98% 4L. Coronavirus screen: At this time, the client does not indicate any symptoms associated with coronavirus-19. Ebola Screen: No symptoms or risks identified at this time. Initial Sepsis Screen: Does the patient meet any 2 criteria? No. Patient's initial sepsis screen is negative. Does the patient have a suspected source of infection? No. Patient's initial sepsis screen is negative. Risk Assessment: Do you want to hurt yourself or someone else? Patient reports no desire to harm self or others. Onset of symptoms was November 23, 2021. 21:25 Method Of Arrival: Ambulatory ld1 21:25 Acuity: BENJI 3 ld1 Triage Assessment: 21:28 General: Appears in no apparent distress. comfortable, Behavior is calm, cooperative, ld1 appropriate for age. Pain: Complains of pain in chest Pain does not radiate. Pain currently is 10 out of 10 on a pain scale. Quality of pain is described as throbbing. EENT: No signs and/or symptoms were reported regarding the EENT system. Neuro: Level of Consciousness is awake, alert, obeys commands, Oriented to person, place, time, situation. Cardiovascular: Capillary refill < 3 seconds Patient's skin is warm and dry. Rhythm is sinus tachycardia. Respiratory: Airway is patent Respiratory effort is even, unlabored. GI: Abdomen is round non-distended. Historical: - Allergies: 21:28 Morphine; ld1 21:28 Albuterol; ld1 - PMHx: 21:28 "frozen shoulder"; COPD; Non-tuberculin Mycoplasma; Emphysema; ld1 - Immunization history:: Adult Immunizations up to date, Client reports receiving the 2nd dose of the Covid vaccine. - Social history:: Smoking status: Patient reports the use of cigarette tobacco products, smokes one-half pack cigarettes per day. Screenin:51 Abuse screen: Denies threats or abuse. Denies injuries from another. Nutritional as6 screening: No deficits noted. Tuberculosis screening: No symptoms or risk factors identified. Fall Risk None identified. Assessment: 22:30 General: Appears uncomfortable, ill, slender, Behavior is calm, cooperative. Pain: as6 Complains of pain in back and right leg and chest. Neuro: Level of Consciousness is awake, alert, obeys commands, Oriented to person, place, time, situation. Cardiovascular: Reports chest pain. Respiratory: Respiratory effort is even, labored. 11/24 02:13 General: pt states pain has improved. respirations now even and unlabored . as6 Vital Signs: 11/23 21:25 BP 129 / 66; Pulse 101; Resp 20; Temp 98.6(O); Pulse Ox 98% on 4 lpm NC; Weight 58.97 ld1 kg; Height 5 ft. 3 in. (160.02 cm); Pain 10; 22:51 BP 148 / 84; Pulse 103; Resp 20 S; Pulse Ox 100% on 4 lpm NC; as6 11/24 00:13 BP 114 / 75; Pulse 79; Resp 18 S; Pulse Ox 98% on 4 lpm NC; as6 02:06 BP 110 / 58; Pulse 72; Resp 19 S; Pulse Ox 99% on 4 lpm NC; as6 11/23 21:25 Body Mass Index 23.03 (58.97 kg, 160.02 cm) ld1 ED Course: 11/23 21:25 Patient arrived in ED. ld1 21:28 Triage completed. ld1 21:28 Arm band placed on. ld1 21:29 Inserted saline lock: 18 gauge in right antecubital area, using aseptic technique. ld1 21:58 Zach Wray, JEANETTE is Primary Nurse. as6 22:03 Sammie Calhoun MD is Attending Physician. sd2 22:16 XRAY Chest (1 view) In Process Unspecified. EDMS 22:52 Bed in low position. Call light in reach. Side rails up X2. Adult w/ patient. as6 11/24 00:01 COVID swab sent to lab. wm 00:01 SARS-COV-2 RT PCR (Document "Date of Onset" if Symptomatic) Sent. wm 00:29 initiated a transfer with Mauro from [facility]. mw2 00:[address] Calhoun with the Hospitalist from [facility]. mw2 01:20 contacted [facility] to give them the covid results. mw2 01:34 administrative approval given by Jeanine Plunkett/ patient has been accepted to [address] to bed 2223/ Dr. Bonilla accepted the patient in transfer/report to be called to [phone]. 02:10 No provider procedures requiring assistance completed. Patient transferred, IV remains as6 in place. Administered Medications: 00:06 Drug: Xopenex (levalbuterol) (3) 1.25 mg Route: Inhalation; as6 02:10 Follow up: Response: No adverse reaction as6 00:06 Drug: AtroVENT (ipratropium) Aerosol 0.5 mg Route: Inhalation; as6 02:10 Follow up: Response: No adverse reaction as6 00:06 Drug: SOLU-Medrol (methylPrednisoLONE) 125 mg Route: IVP; Site: right antecubital; as6 02:10 Follow up: Response: No adverse reaction as6 00:07 Drug: fentaNYL (PF) 50 mcg Route: IVP; Site: right antecubital; as6 02:11 Follow up: Response: No adverse reaction as6 01:04 Drug: Zofran (Ondansetron) 4 mg Route: IVP; Site: right antecubital; as6 02:11 Follow up: Response: No adverse reaction as6 Medication: 02:10 VIS not applicable for this client. as6 Outcome: 01:27 ER care complete, transfer ordered by . sd2 02:10 Transferred by ground EMS to [facility], Transfer form as6 completed. X-rays sent w/ patient. 02:10 Condition: stable 02:10 Instructed on the need for transfer. 02:14 Patient left the ED. as6 Signatures: Dispatcher [employer] EDAL Korey Vega mw2 Christianne Marte, RN RN ld1 Caitlin Cartagena Ashby, RN RN as6 Sammie Calhoun MD MD sd2
--- NOTE | 2021-11-24 01:28 | EDPHYS ---
Physician Documentation [facility] Name: Kallie Correia Age: 61 yrs Sex: Female : 1960 Arrival Date: 11/23/2021 Time: 21:25 Bed 3 Private MD: ED Physician Sammie Calhoun HPI: 11/23 23:27 This 61 yrs old Female presents to ER via Ambulatory with complaints of Chest Pain. sd2 23:27 61 yo F presents with CC of chest pain and SOB via EMS. Diagnosed with RSV 2-3 weeks sd2 ago at [facility]. States was not placed on any medications at that time and has progressively gotten worse with worsening cough, difficulty breathing and now chest pain from the coughing. Denies fevers, vomiting, diarrhea. . Historical: - Allergies: 21:28 Morphine; ld1 21:28 Albuterol; ld1 - PMHx: 21:28 "frozen shoulder"; COPD; Non-tuberculin Mycoplasma; Emphysema; ld1 - Immunization history:: Adult Immunizations up to date, Client reports receiving the 2nd dose of the Covid vaccine. - Social history:: Smoking status: Patient reports the use of cigarette tobacco products, smokes one-half pack cigarettes per day. ROS: 23:29 Constitutional: Negative for fever, chills, and weight loss, Eyes: Negative for injury, sd2 pain, redness, and discharge, Cardiovascular: Positive for chest pain, Negative for palpitations, and edema, Respiratory: Positive for shortness of breath, cough, wheezing. Abdomen/GI: Negative for abdominal pain, nausea, vomiting, diarrhea. MS/Extremity: Negative for injury and deformity, Skin: Negative for injury, rash, and discoloration, Neuro: Negative for headache, numbness and tingling. Exam: 23:29 Constitutional: This is a well developed, well nourished patient who is awake, alert, sd2 and in no acute distress. Head/Face: Normocephalic, atraumatic. Eyes: EOMI, normal conjunctiva bilaterally Chest/axilla: Normal chest wall appearance and motion. Nontender with no deformity. Cardiovascular: Regular rate and rhythm with a normal S1 and S2. No gallops, murmurs, or rubs. 2+ distal pulses. Respiratory: Lungs with equal and diminished breath sounds bilaterally, tachypnea present, no retractions Abdomen/GI: Soft, non-tender, with normal bowel sounds. No guarding or rebound. No evidence of tenderness throughout. Skin: Warm, dry with normal turgor. Normal color with no rashes, no lesions, and no evidence of cellulitis. MS/ Extremity: Pulses equal, no cyanosis. Neurovascular intact. Full, normal range of motion. Ambulatory without difficulty. Psych: Awake, alert, with orientation to person, place and time. Behavior, mood, and affect are within normal limits. Vital Signs: 21:25 BP 129 / 66; Pulse 101; Resp 20; Temp 98.6(O); Pulse Ox 98% on 4 lpm NC; Weight 58.97 ld1 kg; Height 5 ft. 3 in. (160.02 cm); Pain 10/10; 22:51 BP 148 / 84; Pulse 103; Resp 20 S; Pulse Ox 100% on 4 lpm NC; as6 11/24 00:13 BP 114 / 75; Pulse 79; Resp 18 S; Pulse Ox 98% on 4 lpm NC; as6 02:06 BP 110 / 58; Pulse 72; Resp 19 S; Pulse Ox 99% on 4 lpm NC; as6 11/23 21:25 Body Mass Index 23.03 (58.97 kg, 160.02 cm) ld1 MDM: 11/23 22:03 Patient medically screened. sd2 23:29 Differential diagnosis: Differential diagnosis includes but is not limited to: ACS, sd2 DVT/PE, pneumothorax, dissection, musculoskeletal, anxiety, anemia, electrolyte abnormality, pneumonia, CHF, COPD among others. Data reviewed: vital signs, nurses notes. 11/24 01:23 Counseling: I had a detailed discussion with the patient and/or guardian regarding: the sd2 historical points, exam findings, and any diagnostic results supporting the discharge/admit diagnosis, lab results, radiology results, the need to transfer to another facility. ED course: Labs and imaging reviewed. Labs grossly WNCL. Trop neg. EKG with no ischemic changes. CXR with signs of COPD. Procalcitonin negative and not consistent with bacterial infection. THus, antibiotics not given. Pt requiring admission for COPD exacerbation. Pt requesting transfer due to our facility not accepting her insurance. Pt accepted to [facility] as a direct admission at this time.. 11/23 21:29 Order name: Basic Metabolic Panel; Complete Time: 23:23 ld11/23 21:29 Order name: CBC with Diff; Complete Time: 23:23 11/23 21:29 Order name: Troponin HS; Complete Time: 23:23 11/23 22:16 Order name: BNP; Complete Time: 23:29 sd11/23 22:36 Order name: Procalcitonin; Complete Time: 00:00 11/23 23:29 Order name: SARS-COV-2 RT PCR (Document "Date of Onset" if Symptomatic); Complete Time: sd 01:18 11/23 21:29 Order name: XRAY Chest (1 view); Complete Time: 22:36 11/23 21:29 Order name: Cardiac monitoring; Complete Time: 22:50 11/23 21:29 Order name: EKG - Nurse/Tech; Complete Time: 21:29 11/23 21:29 Order name: IV Saline Lock; Complete Time: 21:29 11/23 21:29 Order name: Labs collected and sent; Complete Time: 22:42 11/23 21:29 Order name: O2 Per Protocol; Complete Time: 22:50 11/23 21:29 Order name: O2 Sat Monitoring; Complete Time: 22:50 ld Administered Medications: 00:06 Drug: Xopenex (levalbuterol) (3) 1.25 mg Route: Inhalation; as6 02:10 Follow up: Response: No adverse reaction as6 00:06 Drug: AtroVENT (ipratropium) Aerosol 0.5 mg Route: Inhalation; as6 02:10 Follow up: Response: No adverse reaction as6 00:06 Drug: SOLU-Medrol (methylPrednisoLONE) 125 mg Route: IVP; Site: right antecubital; as6 02:10 Follow up: Response: No adverse reaction as6 00:07 Drug: fentaNYL (PF) 50 mcg Route: IVP; Site: right antecubital; as6 02:11 Follow up: Response: No adverse reaction as6 01:04 Drug: Zofran (Ondansetron) 4 mg Route: IVP; Site: right antecubital; as6 02:11 Follow up: Response: No adverse reaction as6 Disposition Summary: 11/24/21 01:27 Transfer Ordered Transfer Location: [facility] sd2 Reason: Higher level of care sd2 Condition: Stable sd2 Problem: an acute exacerbation sd2 Symptoms: have improved sd2 Accepting Physician: Dr. Bonilla(11/24/21 02:14) as6 Diagnosis - COPD/ Chronic obstructive pulmonary disease with (acute) exacerbation sd2 Forms: - Medication Reconciliation Form sd2 - SBAR form sd2 Signatures: Dispatcher [employer] Christianne Avina RN RN ld1 Zach Wray RN RN as6 Sammie Calhoun MD MD sd2 Corrections: (The following items were deleted from the chart) 01:36 01:27 [facility] sd2 sd2 02:14 01:36 Dr. Bonilla sd2 as6
[2021-11-24 02:59] VITALS: TEMP 98.6
[2021-11-24 03:03] VITALS: BP 110/58; O2SAT 99
== END 2021-11-24 02:14 | disposition short-term general hospital (02) ==
LOC: ER 21:22
DX: J44.1 Chronic obstructive pulmonary disease with (acute) exacerbation (principal); F17.210 Nicotine dependence, cigarettes, uncomplicated; Z20.822 Contact with and (suspected) exposure to COVID-19; Z88.5 Allergy status to narcotic agent; Z88.8 Allergy status to other drugs, medicaments and biological substances
CPT/HCPCS: 85025; 80048; 36415; 84484; 84145; 83880; 71045; 96375; 96374; 99285; U0003; J3010; J2930; J2405

== ENCOUNTER 2022-07-10 18:53 | Inpatient (IN) | payer OTHER ==
--- OUTSIDE RECORDS SUMMARY | 2022-07-10 18:57 | XMS REPORT | Clinical Summary ---
:1960 Author Organization [facility] MD [facility] Address [address] [place] [address] Care Team Providers Name Role Phone Rachel Greenberg MD Primary Care Provider Unavailable Daria Roth MD Unavailable Daria Roth MD Unavailable Dennis Trent MD Unavailable Rachel Greenberg MD Unavailable Unavailable Leidy Scanlon Unavailable Leigh Johnson Unavailable Kylah Redd MD Unavailable Tani Daniel MD Unavailable Pham Thomas APRN Unavailable Verna Felipe APRN Unavailable Emile Ochoa Unavailable Allergies Not on [...] Tobacco Use Types Packs/Day Years Used Date Smoking Tobacco: Never Assessed Sex Assigned at Date Recorded Not on file Last Filed Vital Signs Not on file Plan of Treatment Health Maintenance Due Date Last Done Comments COVID-19 Vaccination Completed 01/22/2022, 07/20/2021, , Additional history exists Results Not on fileafter 07/10/2021 Insurance Payer Benefit Plan / Subscriber ID Effective Dates Phone Addre ss Type Group MEDICARE MEDICARE PART [id number] 2013-[place] [phone] [facility] Medicare A AND B t 2 SOLUTIONS [address] [place] [id number] Care Teams Traffic Superintendent Relationship Specialty Start Date End Date Rachel Greenberg MD PCP - General 04/07/15 Daria Roth MD PCP - External Referring 12/02/13 Daria Roth MD PCP - External Follow Up A 12/02/13 Dennis Trent MD Physician 04/14/[address] [place] [id number] Rachel Greenberg MD Physician 04/14/15 Leidy Scanlon PA Physician Cancer Registry Manager 04/14/15 [facility] [place] [address] Leigh Johnson PA Physician Cancer Registry Manager 04/14/[address] [place] [id number] Kylah Redd MD Physician 04/14/[address] [place] [id number] Tani Daniel MD Physician 04/14/[address] [place] [id number] Pham Thomas APRN Nurse Practitioner 04/14/[address] [place] [id number] Verna Felipe APRN Nurse Practitioner 04/14/[address] [place] [id number] Emile Ochoa PA Physician Cancer Registry Manager 04/14/15 [facility] [place] [address]
--- OUTSIDE RECORDS SUMMARY | 2022-07-10 19:11 | XMS REPORT | Continuity of Care Document ---
:1960 Author Organization [facility] t Address [address] [facility] [address] [place] [address] Care Team Providers Name Role Phone Dionicio ESQUIVEL, Rachel Cooper Primary Care Physician Unavailable [id number] Attending Clinician Unavailable DEMI VALADEZ Attending Clinician Unavailable Kingsley ESQUIVEL, Nawaf Blair Attending Clinician Rachel Vyas MD Attending Clinician Loree REDI, Angelica Attending Clinician Unavailable Jeanne Moy Attending Clinician Unavailable Gina Orosco RN Attending Clinician Unavailable Fanta Tijerina Attending Clinician Unavailable Alpesh Granados MD Attending Clinician Doctor Unassigned, Beckett Ridge Attending Clinician Unavailable Elaine Ramirez MD Attending Clinician [phone] Consuelo Brand Attending Clinician Unavailable Joy ESQUIVEL, Cesar Attending Clinician Cuate ESQUIVEL, Demi Rand Attending Clinician Makenna ESQUIVEL, Aftab Quiroz Attending Clinician Erik ESQUIVEL, Luis Alaniz Attending Clinician Maryellen Roach APRN Attending Clinician [phone] Perry ESQUIVEL, Simran Attending Clinician Darci REID, Preeti Attending Clinician Unavailable RADIOLOGY Attending Clinician Unavailable Radiology Attending Clinician Unavailable Nelsy ESQUIVEL, Karina Attending Clinician Esther ESQUIVEL, Rickie Tellez Attending Clinician Edith ESQUIVEL, Suki Reeder Attending Clinician [phone] Katie Ramirez Attending Clinician Unavailable Leonid ESQUIVEL, Demetrius Gomez Attending Clinician Kaylyn VASQUEZ, Dionne Attending Clinician Junie Stearns LVN Attending Clinician Unavailable EDWARD REIS Attending Clinician Unavailable Edward Reis DO Attending Clinician Rainer Martinez MD Attending Clinician RAKEL FULTON Attending Clinician Unavailable Rakel Fulton MD Attending Clinician Rolanda Dimas MA Attending Clinician Unavailable Jaye REID, Nancy Attending Clinician Unavailable Brooke Murphy RN Attending Clinician Unavailable Josiah Lew RN Attending Clinician Unavailable Jeanne EDMOND, Mariola Attending Clinician Unavailable Carlos Yang RN Attending Clinician Unavailable PREETI ANDERSEN Attending Clinician Unavailable Stuart Shaikh MD Attending Clinician Ritchie Garcia MD Attending Clinician Preeti Andersen DO Attending Clinician RITCHIE GARCIA Attending Clinician Unavailable Kaylyn VASQUEZ, Carol Santiago Attending Clinician Xiao Leach MA Attending Clinician Unavailable JOSE CRUZ GARCIA Attending Clinician Unavailable Irene ESQUIVEL, Jose Cruz Attending Clinician SEAN BILLS Attending Clinician Unavailable Sanju ESQUIVEL, Sean Benites Attending Clinician Sarah Rogers MA Attending Clinician Unavailable Ewa Rivera Attending Clinician Unavailable Jones REID, Elvira Attending Clinician Unavailable Iris Rosa MA Attending Clinician Unavailable Austin REID, Irasema Salomon Attending Clinician Unavailable Corby Pisano Attending Clinician Sabino Lopez DO Attending Clinician Maame Andres RN Attending Clinician Unavailable Heron Oakes Attending Clinician Fidelina Plunkett MA Attending Clinician Unavailable Danial Hylton MD Attending Clinician Tu Romero MD Attending Clinician Ruthann Green MA Attending Clinician Unavailable Angeline Tellez MD Attending Clinician Tanja Bone RN Attending Clinician Unavailable Robina De La Vega MA Attending Clinician Unavailable Sally Carty MA Attending Clinician Unavailable Benjy Hernandez MD Attending Clinician Elba Renteria Attending Clinician Unavailable Araceli Wilkins MA Attending Clinician Unavailable Pamela JHAVERI, Joi Baird Attending Clinician Krissy Ley RN Attending Clinician Unavailable Lottie Kraft NP Attending Clinician PORSCHE MOORE Attending Clinician Unavailable Porsche Moore DO Attending Clinician Dixie Quick NP Attending Clinician Violeta ESQUIVEL, Shayy Mcintosh Attending Clinician Lissette ESQUIVEL, Damien Tellez Attending Clinician [phone] Provider, Unknown Attending Clinician Unavailable Jordy Zarco MD Attending Clinician Provider , Not In System Attending Clinician Unavailable HARESH CASAREZ Attending Clinician Unavailable Leida ESQUIVEL, Haresh Attending Clinician Yanci Lujan Attending Clinician Unavailable Tamar ESQUIVEL, Jovani Trejo Attending Clinician Idalia Sofia Attending Clinician SABINO LOPEZ Attending Clinician Unavailable SABINO LOPEZ Attending Clinician Unavailable Ilir Lindsey Rahil Attending Clinician Unavailable Renata Belle LVN Attending Clinician Unavailable Maria Luz ESQUIVEL, Robbie Attending Clinician Fernanda Guillermo MD Attending Clinician Caitlin Sandhu MA Attending Clinician Unavailable Brianne Hickey MD Attending Clinician LOREN PATRICIO Attending Clinician Unavailable MD SHANTEL WARD Attending Clinician Unavailable NAOMI LOPEZ Attending Clinician Unavailable Sarah Mckenna Attending Clinician Yenni Ocampo MD Attending Clinician Jessie Sinha MD Attending Clinician [phone] Davon Pizarro MD Attending Clinician JOHN HOOPER Attending Clinician Unavailable GC_WPSA_Awan_R Attending Clinician Unavailable Shayla Mcfarland Attending Clinician [phone] Rupa Kahn MD Attending Clinician RUPA KAHN Attending Clinician Unavailable No Mirza Attending Clinician NO NASSAR Attending Clinician Unavailable Ward Chavez MD Attending Clinician Wayne Harris DO Attending Clinician Hernan Munoz MD Attending Clinician AVRIL RUBIO Attending Clinician Unavailable Franco Mercado MD Attending Clinician Fellow, Pulmonary Attending Clinician Unavailable Lucio ESQUIVEL, Hany Mathur Attending Clinician [phone] Ernie REID, Sheron Attending Clinician Unavailable HERNAN MUNOZ Attending Clinician Unavailable Mansi Pollard MD Attending Clinician Dar Golden MD Attending Clinician STUART SHAIKH Attending Clinician Unavailable Kalen Segovia MD Attending Clinician [facility] Attending Clinician Unavailable Preeti Lamar MD Attending Clinician PREETI LAMAR Attending Clinician Unavailable DAVON PIZARRO Attending Clinician Unavailable So Fofana Attending Clinician BRIANNE HICKEY Attending Clinician Unavailable [id number] Admitting Clinician Unavailable ILIR LINDSEY Admitting Clinician Unavailable DEMI CUELLO Admitting Clinician Unavailable LISS PICHARDO Admitting Clinician Unavailable KARINA PETTIT Admitting Clinician Unavailable EDWARD REIS Admitting Clinician Unavailable RAKEL FULTON Admitting Clinician Unavailable PREETI ANDERSEN Admitting Clinician Unavailable Preeti Andersen DO Admitting Clinician RITCHIE GARCIA Admitting Clinician Unavailable Ritchie Garcia MD Admitting Clinician JOSE CRUZ GARCIA Admitting Clinician Unavailable Jose Cruz Garcia MD Admitting Clinician SEAN BILLS Admitting Clinician Unavailable ANGELINE TELLEZ Admitting Clinician Unavailable MD ALPESH GRANADOS Admitting Clinician Unavailable SHAYY MCLAUGHLIN Admitting Clinician Unavailable HARESH CASAREZ Admitting Clinician Unavailable Haresh Casarez MD Admitting Clinician Ilir Lindsey Rahil Admitting Clinician Unavailable Brianne Hickey MD Admitting Clinician SHANTEL WARD Admitting Clinician Unavailable MD SHANTEL WARD Admitting Clinician Unavailable Yenni Ocampo MD Admitting Clinician GC_WPSA_Awan_R Admitting Clinician Unavailable MANSI POLLARD Admitting Clinician Unavailable Mansi Pollard MD Admitting Clinician STUART SHAIKH Admitting Clinician Unavailable YENNI OCAMPO Admitting Clinician Unavailable BRIANNE HICKEY Admitting Clinician Unavailable Payers Payer Name Policy Type Policy Number Effective Date Expiration Date Jewels PHELAN [employer] GUADALUPE [id number] 2017 00:00:00 MEDICAID [facility] [id number] 2017 00:00:00 HLSM HLSM [id number] MISD MISD [id number] [facility] [id number] 2019 PREFERRED (MEDICARE 00:00:00 REPLACEMENT HMO) [place] [id number] [place] Problems Condition Condition Condition Status Onset Resolution Last Treating Co mments Source Name Details Category Date Date Treatment Clinician Date Lung Lung Disease Active Methodi transplant transplant 3-20 st candidate candidate 00:00: Hosp [facility]ha 00 l COPD COPD Disease Active Methodi exacerbati exacerbati 2-21 st on on 00:00: Hospita 00 l Encounter Encounter Disease Active Met hodi for for 2-20 st colorectal colorectal 00:00: Ho spita cancer cancer 00 l screening screening Abdominal Abdominal Disease Active Met hodi pain pain 2-19 st 00:00: Hospita 00 l Chest Chest Disease Active 2021-02 Univers pain, pain, 1-23 it[place] d type 00 [facility] Pneumonia Pneumonia Disease Active 2021-02 Uni vers due to due to 1-22 ity of organism organism 00:00: [place] 00 Medical Branch Atheroscle Atheroscle Disease Active 2021-02 U nivers rosis of rosis of 0-30 ity of [place] 00:00: [place] coronary coronary 00 Medica l artery of artery of Bran ch [place] heart heart without without angina angina pectoris pectoris Elevated Elevated Disease Active 2021-02 Unive rs brain brain 0-30 ity of natriure[place] natriureti [place] c peptide c peptide 00 Medi kandis (BNP) (BNP) Branch level level Sinus Sinus Disease Active 2021-02 Univers tachycardi tachycardi 0-30 it y of a a 00:00: [place] [facility] COPD with COPD with Disease Active 2021-02 Uni vers acute acute 0-29 ity of exacerb[place] exacerb[place] COVID-19 COVID-19 Disease Active Unive rs 7-28 ity of 00:00: [place] [facility] Coronary Coronary Disease Active Metho di artery artery 5-13 st disease disease 00:00: Hospita involving involving 00 l [place] coronary coronary artery of artery of [place] heart heart without without angina angina pectoris pectoris Pure Pure Disease Active Methodi hyperchole hyperchole 5-[address] sterolemia sterolemia 00:00: Ho spita 00 l Coronary Coronary Disease Active Metho di artery artery 5-13 st disease disease 00:00: Hospita involving involving 00 l [place] coronary coronary artery of artery of [place] heart heart without without angina angina pectoris [...] y distress 2-08 it y of 00:00: [place] [facility] COPD with COPD with Disease Active 2020-02 Uni vers exacerbati exacerbati 2-07 it y of on on 00:00: [place] [facility] Abnormal Abnormal Disease Active 2020-02 [...] 2020-02 U nivers 1-12 ity of 00:00: [place] [facility] Atrial Atrial Disease Active 2020-02 Overview: Method i fibrillati fibrillati 0-[address] [facility] might be different from the original. Added automatic ally from request for surgery [id number] COPD with COPD with Disease Active Met hodi acute acute 10-08 st exacerbati exacerbati 00:00: Ho spita on on 00 l Hemoptysis Hemoptysis Disease Active M ethodi 10-08 st 00:00: Hospita 00 l Anxiety Anxiety Disease Active Methodi 10-08 st 00:00: Hospita 00 l Occult Occult Disease Active Overview: Method i blood in blood in 10-[address] stools stools 00:00: [facility] might be different from the original. Added automatic ally from request for surgery [id number] Chronic Chronic Disease Active Methodi obstructiv obstructiv 8-11 st e e 00:00: Hospita pulmonary pulmonary 00 l disease disease with acute with acute exacerbati exacerbati on on COPD COPD Disease Active Univers exacerbati exacerbati 7-04 it y of on on 00:00: [place] [facility] Hemoptysis Hemoptysis Disease Active U nivers 6-11 ity of 00:00: [place] [facility] Atypical Atypical Disease Active Unive rs chest pain chest pain 5-09 it y of 00:00: [place] [facility] History of History of Disease Active M ethodi pulmonary pulmonary 5-09 st embolism embolism 00:00: Hospit a 00 l Pneumonia Pneumonia Disease Active Uni vers 5-07 ity of 00:00: [place] [facility] 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 U nivers protein-ca protein-ca 4-17 it y of tenisha steven 00:00: [place] malnutriti malnutriti 00 Me dical on on Branch Cavitary Cavitary Disease Active 2020-0 Unive rs lung lung 4-17 ity of disease disease 00:00: [place] 00 Medical Branch Other Other Disease Active Methodi chronic chronic 4-17 st pain pain 00:00: Hospita 00 l 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 4-16 st complex complex 00:00: Hospita 00 l Unspecifie Unspecifie Disease Active M ethodi d severe d severe 2-07 st protein-ca protein-ca 00:00: Navin steven 00 l malnutriti malnutriti on on Hypoxia Hypoxia Disease Active Methodi 2-06 st 00:00: Hospita 00 l E44.0 E44.0 Disease Active Univers Moderate Moderate 2-05 ity of protein protein 00:00: [place] calorie calorie 00 Medical malnutriti malnutriti Br anch on on PAF PAF Disease Active Univers (paroxysma (paroxysma 2-03 it y of l atrial l atrial 00:00: [place] fibrillati fibrillati 00 Me dical on) on) [...] Pulmonary Disease Active Met hodi cavitary cavitary 9-19 st lesion lesion 00:00: Hospita 00 l Chronic Chronic Problem Active Common obstructiv obstructiv [facility] disease[facility] unspecifie unspecifie Me dical d COPD d COPD Center type type Encounter Encounter Problem Active Com mon for for Spirit gynecologi gynecologi - [facility] kandis kandis St examinatio examinatio [place] kes n without n without Medi kandis abnormal abnormal Center finding finding Hot Hot Problem Active Common flashes flashes Spirit due to due to - [facility] menopause menopause [facility] Encounter Encounter Problem Active Com mon for for Spirit screening screening - [facility] I mammogram mammogram St for breast for breast [facility] [place] cancer cancer [facility] Allergies, Adverse Reactions, Alerts Allergy Allergy Status Severity Reaction(s) Onset Inactive Treating Comm ents Source Name Type Date Date Clinician Carmela Lealensi Active Shortness of 2020-02 Univers l ty to Breath 0-20 ity of adverse 00:00: [place] reaction 00 Medical s Branch ALBUTERO DRUG Active SOB 2020-02 Univers L INGREDI 0-20 ity of 00:00: [place] 00 Medical Branch Albutero Propensi Active Other (See 2020-02 Shakes Me thodi l ty to Comments) 0-[address] adverse 00:00: Increase Hospita reaction 00 HR l s to drug Morphine Propensi Active Other (See Anaphylac Methodi ty to Comments) 8-[address] adverse 00:00: Hospita reaction 00 l s to drug LORAZEPA DRUG Active Hallucinates 2020-0 Un jb M INGREDI 4-18 ity of 00:00: [place] 00 Medical Branch Lorazepa Propensi Active Hallucinatio 2020-0 Univers m ty to ns 4-18 ity of adverse 00:00: [place] reaction 00 Medical s Branch Lorazepa Propensi Active Hallucinatio 2020-0 Methodi m ty to ns 4-18 st adverse 00:00: Hospita reaction 00 l s to drug Morphine Propensi Active Other - See "makes U nivers ty to comments 9-20 heart ity of adverse 00:00: stop" [place] reaction 00 Medical s Branch MORPHINE DRUG Active Other-Cmnt Univ ers INGREDI 9-20 ity of 00:00: [place] 00 Medical Branch MORPHINE Adverse Active Info Not Commo n Reaction Available Spiri t - [facility] Morphine Allergy Active Confusion, Mere via to Respiratory Medic al substanc distress e Family History Family Member Diagnosis Comments Start Date Stop Date Source Natural father [facility] Natural mother Cancer [facility] Natural mother Lung [facility] Social History Social Habit Start Date Stop Date Quantity Comments Source History SDOH [facility] St[facility] Hospit al History SDLA [facility] Gender identity [facility] Sexual orientation [facility] Alcohol intake 2022-06-23 2022-06-23 Ex-drinker [facility] 00:00:00 00:00:00 (finding) Hospital History of Social 2022-06-23 2022-06-[address] function 00:00:00 00:00:00 Hospital Exposure to 2022-03-07 2022-03-17 Not sure University of SARS-CoV-2 (event) 00:00:00 15:05:00 [facility] Cigarettes smoked 2022-03-16 2022-03-[address] current (pack per 00:00:00 00:00:00 Hospita l day) - Reported Cigarette 2022-03-16 2022-03-16 [facility] pack-years 00:00:00 00:00:00 Hospital Tobacco use and 2022-03-16 2022-03-16 Smokeless [facility] exposure 00:00:00 00:00:00 tobacco non-user Hospital Tobacco Comment 2021-11-24 2021-11-24 Uses Universit y of 00:00:00 00:00:00 [facility]ae[facility]mod[facility]gn [facility] ago Branch History SDOH 2020-09-15 2020-09-15 1 [facility] Alcohol Frequency 00:00:00 00:00:00 Hospita l Education 2020-08-09 2020-08-09 12 University of 00:00:00 00:00:00 [facility] Alcohol Comment 2017-11-05 2017-11-05 rare Universit y of 00:00:00 00:00:00 [facility] History of tobacco 2017-07-18 Current smoker Me thodist use 00:00:00 Hospital Sex Assigned At [birth year] [facility] 00:00:00 00:00:00 Hospital Smoking Status Start Date Stop Date Source Ex-smoker 2022-03-16 00:00:00 2022-03-16 00:00:[facility] Medications Ordered Filled Start Stop Current Ordering Indication Dosage Frequency Signature Comments Components Source Medication Medication Date Date Medication? Clinician (SIG) Name Name predniSONE Yes 5mg QD Take 1 Metho di (DELTASONE) 5-24 tablet (5 st 5 mg tablet 00:00: mg total) H ospita 00 by mouth l daily. ipratropium 2023- Yes 1{puff} Q.25D Inhale 1 Methodi (ATROVENT 5-24 05-[address] HFA) 17 00:00: 04:59 (four) Hospita mcg/actuati 00 :00 times a l on inhaler day. predniSONE 2022-0 Yes 10mg QD Take 1 Metho di (DELTASONE) 5-18 tablet (10 st 10 mg 14:47: mg total) Hospita tablet 59 by mouth l daily. gabapentin 2022-0 Yes 400mg Q.5D Take 1 Meth jill (NEURONTIN) 5-[address] 400 mg 14:45: (400 mg Hospita capsule 49 total) by l mouth 2 (two) times a day. fluticasone 2022-0 Yes 1{puff} Q.5D Inhale 1 Methodi propion-tavia 5-[address] meteroL 14:45: (two) Hospita (ADVAIR/ 49 times a l WIXELA day. INHUB) 250-50 mcg/dose DISKUS aspirin 2022-0 Yes 81mg QD Take 1 Methodi (ECOTRIN) 5-18 tablet (81 st 81 MG 14:45: mg total) Hospita enteric 49 by mouth l coated daily. tablet metoprolol 2022-0 Yes 25mg QD Take 1 Metho di succinate 5-18 tablet (25 st XL 14:45: mg total) Hospita (TOPROL-XL) 49 by mouth l 25 mg 24 hr daily. tablet multivitami 2022-0 Yes 1{tbl} QD Take 1 Me thodi n tablet 5-[address] 14:45: mouth Hospita 49 daily. l flecainide 2022-0 2023- No 50mg QD Take 1 Meth jill (TAMBOCOR) 5-18 05-18 tablet (50 st 50 MG 14:44: 00:00 mg total) Hospit a tablet 13 :00 by mouth l daily. sucralfate 2022-0 Yes 1g Q.[id number] Take 1 Methodi (CARAFATE) 3-30 [id number] tablet (1 st 1 gram 00:00: 3D g total) Hospita tablet 00 by mouth 3 l (three) times a day. Crush pill and mix 3-5 oz of water to form slurry levalbutero 2022-0 202- No .63mg Q4H Take 3 mL Methodi l (XOPENEX) 04-27-23 (0.[address] 0.63 mg/3 10:44: 00:00 total) by Ho spita mL 41 :00 nebulizati l nebulizer on every 4 solution (four) hours as needed for wheezing. levalbutero 2022- No [id number] .63mg Q4H Take 3 mL Methodi l (XOPENEX) 04-27-23 (0.[address] 0.63 mg/3 00:00: 04:59 total) by Ho spita mL 00 :00 nebulizati l nebulizer on every 4 solution (four) hours as needed for wheezing for up to 30 days. docusate 2022- No 100mg Q.5D Take 1 Metho di sodium 04-[address] (COLACE) 00:00: 04:59 (100 mg Hospi ta 100 MG 00 :00 total) by l capsule mouth 2 (two) times a day for 30 days. ondansetron 2022- No 4mg Q8H Take 1 Met hodi ODT 04-27 tablet (4 st (ZOFRAN-ODT 00:00: 04:59 mg total) Hospita ) 4 MG 00 :00 by mouth l disintegrat every 8 ing tablet (eight) hours as needed for nausea or vomiting for up to 30 days. amoxicillin 2022- No 500mg Q.[id number] Take 1 Methodi (AMOXIL) 04-2730 [id number] capsule s t 500 MG 00:00: 00:00 3D (500 mg Hospita capsule 00 :00 total) by l mouth 3 (three) times a day for 5 days. chlorhexidi 2022- No 15mL Q.5D Apply 15 M ethodi ne 04-27 03-[address] (PERIDEX) 00:00: 00:00 mouth or Hos panchito 0.12 % 00 :00 throat 2 l solution (two) times a day for 10 days. ibuprofen 2022- Yes Methodi (ADVIL) 600 3-21 st MG tablet 00:00: Hospita 00 l acetaminoph 2022- No Metho di en-codeine 3-21 05-18 st (TYLENOL 00:00: 00:00 Hospita WITH 00 :00 l CODEINE #3) 300-30 mg per tablet predniSONE [id number] 10mg QD Take 1 Methodi (DELTASONE) 04-24-21 tablet (10 s t 10 mg 00:00: 04:59 mg total) Hospit a tablet 00 :00 by mouth l daily for 31 days. Saccharomyc No 250mg 1 capsule Methodi es 04-18- ([address] boulardii 00:00: 00:00 total). Hosp nuha (FLORASTOR) 00 :00 l 250 mg capsule fluconazole Metho di (DIFLUCAN) 04-18 st 100 MG 00:00: 00:00 Hospita tablet 00 :00 l azithromyci No [id number] 250mg QD Take 1 Methodi n 2- 03-[address] (Zithromax) 00:00: 00:00 (250 mg Ho spita 250 MG 00 :00 total) by l tablet mouth daily for 89 days. Please take 1 Tab Sunday predniSONE No Take 3 Meth jill (DELTASONE) 2 03-[address] 5 mg tablet 00:00: 05:59 (15 mg Hos panchito 00 :00 total) by l mouth daily for 2 days, THEN 2 tablets (10 mg total) daily for 3 days, THEN 1 tablet (5 mg total) daily [place] 3 [place] [id number] 1{tbl} Q.[id number] Take 1 Methodi -acetaminop 2-26 02-[id number] [employer] ([employer]) 12:18: 00:00 3D mouth 3 Ho spita 5-325 mg 39 :00 (three) l per tablet times a day .acute pain. [place] [id number] 1{tbl} Q6H Take 1 M ethodi -acetaminop 2-[address] hen (AccessPay) 00:00: mouth Hospi ta 10-325 mg 00 every 6 l per tablet (six) hours as needed for severe pain .acute pain. Max Daily Amount: 4 tablets metroNIDAZO 2022- No 500mg Q.[id number] Take 1 Methodi LE (FLAGYL) 04-[id number] 500 MG 00:00: 05:59 3D (500 mg Hospita tablet 00 :00 total) by l mouth 3 (three) times a day for 5 days. tetracyclin 2022- No 500mg Q.25D Take 1 M ethodi e (SUMYCIN) 04-[address] 500 MG 00:00: 05:59 (500 mg Hospita capsule 00 :00 total) by l mouth 4 (four) times a day for 5 days. roflumilast 2022- No [id number] 250ug QD Take 1 Methodi (Daliresp) 04-[address] 250 mcg 00:00: 00:00 (250 mcg Hospi ta tablet 00 :00 total) by l mouth daily for 30 days. dexamethaso 2022- No 10mg 10 mg, Uni vers ne sod phos 03-17 Slow IV ity of PF 23:30: 23:57 Push, [place] injection 00 :00 ONCE, 1 Medical 10 mg dose, On Sun03/17/22 at 1730, 1 mL FENTanyl PF No 75ug 75 mcg, Un jb (SUBLIMAZE 03-17 Slow IV ity o f (PF)) 23:00: 23:06 Push, [place] injection 00 :00 ONCE, 1 Medical 75 mcg dose, On Sun03/17/22 at 1700, Routine cholecalcif 2022- No 1000U QD Take 1 Me thodi usha, 03-16-[address] vitamin D3, 10:48: 00:00 (1,000 Hos panchito 1,000 unit 09 :00 Units l tablet total) by mouth daily. pantoprazol 2022-0 Yes 40mg Q.5D Take 1 Meth jill e -09 tablet (40 st (PROTONIX) 00:00: mg total) Ho spita 40 MG EC 00 by mouth 2 l tablet (two) times a day. Take 30-60 min prior to meals HYDROcodone 2022-2022- No 1{tbl} 1 tablet, Univers -acetaminop 03-04 Oral, ity of hen (NORCO) 11:30: 10:37 [place]CE[place] 1 [place] 10-325 mg 00 :00 dose, On Medica l tablet 1 Sat Branch tablet 03/04/22 at 0530, Routine FENTanyl PF 2022- No 25ug 25 mcg, Un jb (SUBLIMAZE 03-04 Slow IV ity o f (PF)) 11:00: 10:19 Push, [place] injection 00 :00 ONCE, 1 Medical 25 mcg dose, On Branch 03/04/22 at 0500, STAT iopamidol 2022- No [id number] 75mL 75 mL, Univers (ISOVUE 03-04 Intravenou ity o f 370-500 mL) 10:00: 09:05 s, ONCE, 1 [place] injection 00 :00 dose, On Medica l 75 mL Sat Branch 03/04/22 at 0400, Routine FENTanyl PF No 25ug 25 mcg, Un jb (SUBLIMAZE 03-04 Slow IV ity o f (PF)) 08:00: 07:55 Push, [place] injection 00 :00 ONCE, 1 Medical 25 mcg dose, On Branch 03/04/22 at 0200, STAT methylpredn Yes 125mg 125 mg, Un jb isolone sod 1-26 Intravenou it y of succ 00:00: s, Q6H, [place] (SOLU-MEDRO 00 First dose Me dical L) on Sun Branch injection 03/01/22 at 125 mg 1800, Until Discontinu ed, Routine HYDROcodone 2022- No 1{tbl} 1 tablet, Univers -acetaminop 03-01 Oral, ity of hen (NORCO) 21:45: 21:00 [place]CE[place] 1 [place] 10-325 mg 00 :00 dose, On Medica l tablet 1 Sun Branch tablet 03/01/22 at 1545, Routine levalbutero 2022- No 1.25mg 1.25 mg, Univers l (XOPENEX) 03-01 Inhalation i ty of nebulizer 21:30: 20:40 , ONCE, 1 [place] solution 00 :00 dose, On Medical 1.25 mg Wed Branch 03/01/22 at 1530, Routine NaCl 0.9% 2022- No 1000mL at 999 Uni vers (NS) bolus 1-25 01-25 mL/hr, ity of infusion 20:45: 22:01 1,000 mL, [place]j [place] 1,000 mL 00 :00 IV Medical Infusion, Branch ONCE, 1 dose, On 03/01/22 at 1445, STAT levoFLOXaci 2022-0 Yes [id number] 750mg Take 1 [facility] n 750 mg 1-25 tablet by ity of tablet 00:00: mouth [place] 00 every 24 Medical (twenty-fo Branch ur) hours. levoFLOXaci 2022-0 Yes [id number] 750mg Take 1 Univers n 750 mg 1-25 tablet by ity of tablet 00:00: mouth [place] 00 every 24 Medical (twenty-fo Branch ur) hours. levoFLOXaci 2022-0 Yes [id number] 750mg Take 1 [facility] n 750 mg 1-25 tablet by ity of tablet 00:00: mouth [place] 00 every 24 Medical (twenty-fo Branch ur) hours. levoFLOXaci 2022-0 Yes [id number] 750mg Take 1 [facility] n 750 mg 1-25 tablet by ity of tablet 00:00: mouth [place] 00 every 24 Medical (twenty-fo Branch ur) hours. levoFLOXaci 2022-0 Yes [id number] 750mg Take 1 Univers n 750 mg 1-25 tablet by ity of tablet 00:00: mouth [place] 00 every 24 Medical (twenty-fo Branch ur) hours. levoFLOXaci 2022-0 Yes [id number] 750mg Take 1 Univers n 750 mg 1-25 tablet by ity of tablet 00:00: mouth [place] 00 every 24 Medical (twenty-fo Branch ur) hours. levoFLOXaci 2022-0 Yes [id number] 750mg Take 1 [facility] n 750 mg 1-25 tablet by ity of tablet 00:00: mouth [place] 00 every 24 Medical (twenty-fo Branch ur) hours. levoFLOXaci 2022-0 2022- No Metho di n 1-25 02-09 st (LEVAQUIN) 00:00: 00:00 Hospit a 750 MG 00 :00 l tablet Alcohol 2022-1 2023- No BANDAGES Metho di Prep Pads 03-13 st pads, 00:00: 00:00 [facility] medicated 00 :00 l tiotropium 2021-02- No [id number] 1{capsu QD Place 1 [facility] (Spiriva 2- 03-30 le} puff (1 st with 00:00: 00:00 capsule [facility]) 00 :00 total) l 18 mcg per into inhalation inhaler capsule and inhale once daily. tiotropium 2021-02- No [id number] 1{capsu QD Place 1 [facility] (Spiriva 2- 12-19 le} puff (1 st with 00:00: 00:00 capsule [facility]) 00 :00 total) l 18 mcg per into inhalation inhaler capsule and inhale once daily. pen needle, 2021-02- No [id number] Use 1 [facility] diabetic 03-[address] (BD 00:00: 00:00 daily [facility] Ultra[facility]Fine 00 :00 l Elsie Pen Needle) 32 gauge x 5/32" needle teriparatid 2021-02- No [id number] 20ug QD Inject [facility] (Forteo) 03-[address] 20 mcg/dose 00:00: 00:00 (20 mcg [facility] (600mcg/2.4 00 :00 total) l mL) under the injection skin daily. fluticasone 2021-02 Yes 1{puff} Inhale 1 Univers propion-tavia 1-25 Puff every it y of meteroL 11:52: 12 [place] [facility] 32 (twelve) Medical mcg/dose hours. Branch inhalation disk flecainide 2021-02 Yes 50mg Take 50 mg U nivers acetate 1-25 by mouth ity of (FLECAINIDE 11:52: every [place] ORAL) 32 morning. Medical Branch metoprolol 2021-02 Yes 25mg Take 25 mg U nivers tartrate 25 1-25 by mouth ity of mg tablet 11:52: in the [place] 32 morning. Medical Branch gabapentin 2021-02 Yes 400mg Take 400 Un jb 400 mg 1-25 mg by ity of capsule 11:52: mouth 3 [place] 32 (three) Medical times Branch daily. pantoprazol 2021-02 Yes 40mg Take 40 mg Univers e 40 mg EC 1-25 by mouth ity o f tablet 11:52: daily. [place] [address] Medical Branch aspirin 81 2021-02 Yes 81mg Take 81 mg U nivers mg chewable 1-25 by mouth ity of tablet 11:52: daily. [place] [address] Medical Branch HYDROcodone 2021-02 Yes 1{tbl} Take 1 Un jb -acetaminop 1-25 tablet by ity of hen 5-325 11:52: mouth [place] mg tablet 32 the Medical morning Branch and 1 tablet at noon and 1 tablet in the evening. fluticasone 2021-02 Yes 1{puff} Inhale 1 [facility] propion-tavia 1-25 Puff every it y of meteroL 11:52: 12 [place] [address] (twelve) Medical mcg/dose hours. Branch inhalation disk flecainide 2021-02 Yes 50mg Take 50 mg U nivers acetate 1-25 by mouth ity of (FLECAINIDE 11:52: every [place] ORAL) morning. Medical Branch metoprolol 2021-02 Yes 25mg Take 25 mg U nivers tartrate 25 1-25 by mouth ity of mg tablet 11:52: in the [place] [address] morning. Medical Branch gabapentin 2021-02 Yes 400mg Take 400 Un jb 400 mg 1-25 mg by ity of capsule 11:52: mouth 3 [place] [address] (three) Medical times Branch daily. pantoprazol 2021-02 Yes 40mg Take 40 mg Univers e 40 mg EC 1-25 by mouth ity o f tablet 11:52: daily. [place] [address] Medical Branch aspirin 81 2021-02 Yes 81mg Take 81 mg U nivers mg chewable 1-25 by mouth ity of tablet 11:52: daily. [place] [address] Medical Branch HYDROcodone 2021-02 Yes 1{tbl} Take 1 Un jb -acetaminop 1-25 tablet by ity of hen 5-325 11:52: mouth [place] mg tablet 32 the Medical morning Branch and 1 tablet at noon and 1 tablet in the evening. fluticasone 2021-02 Yes 1{puff} Inhale 1 Univers propion-atvia 1-25 Puff every it y of meteroL 11:52: 12 [place] [address] (twelve) Medical mcg/dose hours. Branch inhalation disk flecainide 2021-02 Yes 50mg Take 50 mg U nivers acetate 1-25 by mouth ity of (FLECAINIDE 11:52: every [place] ORAL) 32 morning. Medical Branch metoprolol 2021-02 Yes 25mg Take 25 mg U nivers tartrate 25 1-25 by mouth ity of mg tablet 11:52: in the [place] [address] morning. Medical Branch gabapentin 2021-02 Yes 400mg Take 400 Un jb 400 mg 1-25 mg by ity of capsule 11:52: mouth 3 [place] [address] (three) Medical times Branch daily. pantoprazol 2021-02 Yes 40mg Take 40 mg Univers e 40 mg EC 1-25 by mouth ity o f tablet 11:52: daily. [place] [address] Medical Branch aspirin 81 2021-02 Yes 81mg Take 81 mg U nivers mg chewable 1-25 by mouth ity of tablet 11:52: daily. [place] [address] Medical Branch HYDROcodone 2021-02 Yes 1{tbl} Take 1 Un jb -acetaminop 1-25 tablet by ity of hen 5-325 11:52: mouth in [facility] s mg tablet 32 the Medical morning Branch and 1 tablet at noon and 1 tablet in the evening. fluticasone 2021-02 Yes 1{puff} Inhale 1 Univers propion-tavia 1-25 Puff every it y of meteroL 11:52: 12 [place] 250-[facility] (twelve) Medical mcg/dose hours. Branch inhalation disk flecainide 2021-02 Yes 50mg Take 50 mg U nivers acetate 1-25 by mouth ity of (FLECAINIDE 11:52: every [place] ORAL) morning. Medical Branch metoprolol 2021-02 Yes 25mg Take 25 mg U nivers tartrate 25 1-25 by mouth ity of mg tablet 11:52: in the [place] [address] morning. Medical Branch gabapentin 2021-02 Yes 400mg Take 400 Un jb 400 mg 1-25 mg by ity of capsule 11:52: mouth 3 [place] [address] (three) Medical times Branch daily. pantoprazol 2021-02 Yes 40mg Take 40 mg Univers e 40 mg EC 1-25 by mouth ity o f tablet 11:52: daily. [place] [address] Medical Branch aspirin 81 2021-02 Yes 81mg Take 81 mg U nivers mg chewable 1-25 by mouth ity of tablet 11:52: daily. [place] [address] Medical Branch HYDROcodone 2021-02 Yes 1{tbl} Take 1 Un jb -acetaminop 1-25 tablet by ity of hen 5-325 11:52: mouth [place] mg tablet 32 the Medical morning Branch and 1 tablet at noon and 1 tablet in the evening. fluticasone 2021-02 Yes 1{puff} Inhale 1 Univers propion-tavia 1-25 Puff every it y of meteroL 11:52: 12 [place] [address] (twelve) Medical mcg/dose hours. Branch inhalation disk flecainide 2021-02 Yes 50mg Take 50 mg U nivers acetate 1-25 by mouth ity of (FLECAINIDE 11:52: every [place] ORAL) 32 morning. Medical Branch metoprolol 2021-02 Yes 25mg Take 25 mg U nivers tartrate 25 1-25 by mouth ity of mg tablet 11:52: in the [place] [address] morning. Medical Branch gabapentin 2021-02 Yes 400mg Take 400 Un jb 400 mg 1-25 mg by ity of capsule 11:52: mouth 3 [place] [address] (three) Medical times Branch daily. pantoprazol 2021-02 Yes 40mg Take 40 mg Univers e 40 mg EC 1-25 by mouth ity o f tablet 11:52: daily. [place] [address] Medical Branch aspirin 81 2021-02 Yes 81mg Take 81 mg U nivers mg chewable 1-25 by mouth ity of tablet 11:52: daily. [place] [address] Medical Branch HYDROcodone 2021-02 Yes 1{tbl} Take 1 Un jb -acetaminop 1-25 tablet by ity of hen 5-325 11:52: mouth [place] mg tablet 32 the Medical morning Branch and 1 tablet at noon and 1 tablet in the evening. fluticasone 2021-02 Yes 1{puff} Inhale 1 Univers propion-tavia 1-25 Puff every it y of meteroL 11:52: 12 [place] [address] (twelve) Medical mcg/dose hours. Branch inhalation disk flecainide 2021-02 Yes 50mg Take 50 mg U nivers acetate 1-25 by mouth ity of (FLECAINIDE 11:52: every [place] ORAL) 32 morning. Medical Branch metoprolol 2021-02 Yes 25mg Take 25 mg U nivers tartrate 25 1-25 by mouth ity of mg tablet 11:52: in the [place] [address] morning. Medical Branch gabapentin 2021-02 Yes 400mg Take 400 Un jb 400 mg 1-25 mg by ity of capsule 11:52: mouth 3 [place] [address] (three) Medical times Branch daily. pantoprazol 2021-02 Yes 40mg Take 40 mg Univers e 40 mg EC 1-25 by mouth ity o f tablet 11:52: daily. [place] [address] Medical Branch aspirin 81 2021-02 Yes 81mg Take 81 mg U nivers mg chewable 1-25 by mouth ity of tablet 11:52: daily. [place] [address] Medical Branch HYDROcodone 2021-02 Yes 1{tbl} Take 1 Un jb -acetaminop 1-25 tablet by ity of hen 5-325 11:52: mouth in [facility] s mg tablet 32 the Medical morning Branch and 1 tablet at noon and 1 tablet in the evening. fluticasone 2021-02 Yes 1{puff} Inhale 1 Univers propion-tavia 1-25 Puff every it y of meteroL 11:52: 12 [place] [address] (twelve) Medical mcg/dose hours. Branch inhalation disk flecainide 2021-02 Yes 50mg Take 50 mg U nivers acetate 1-25 by mouth ity of (FLECAINIDE 11:52: every [place] ORAL) morning. Medical Branch metoprolol 2021-02 Yes 25mg Take 25 mg U nivers tartrate 25 1-25 by mouth ity of mg tablet 11:52: in the [place] [address] morning. Medical Branch gabapentin 2021-02 Yes 400mg Take 400 Un jb 400 mg 1-25 mg by ity of capsule 11:52: mouth 3 [place] [address] (three) Medical times Branch daily. pantoprazol 2021-02 Yes 40mg Take 40 mg Univers e 40 mg EC 1-25 by mouth ity o f tablet 11:52: daily. [place] [address] Medical Branch aspirin 81 2021-02 Yes 81mg Take 81 mg U nivers mg chewable 1-25 by mouth ity of tablet 11:52: daily. [address] Branch HYDROcodone 2021-02 Yes 1{tbl} Take 1 Un jb -acetaminop 1-25 tablet by ity of hen 5-325 11:52: mouth [place] mg tablet 32 the Medical morning Branch and 1 tablet at noon and 1 tablet in the evening. fluticasone 2021-02 Yes 1{puff} Inhale 1 Univers propion-tavia 1-25 Puff every it y of meteroL 11:52: 12 [place] 250-[address] 32 (twelve) Medical mcg/dose hours. Branch inhalation disk flecainide 2021-02 Yes 50mg Take 50 mg U nivers acetate 1-25 by mouth ity of (FLECAINIDE 11:52: every [place] ORAL) 32 morning. Medical Branch metoprolol 2021-02 Yes 25mg Take 25 mg U nivers tartrate 25 1-25 by mouth ity of mg tablet 11:52: in the [place] [address] morning. Medical Branch gabapentin 2021-02 Yes 400mg Take 400 Un jb 400 mg 1-25 mg by ity of capsule 11:52: mouth 3 [place] [address] (three) Medical times Branch daily. pantoprazol 2021-02 Yes 40mg Take 40 mg Univers e 40 mg EC 1-25 by mouth ity o f tablet 11:52: daily. [place] [address] Medical Branch aspirin 81 2021-02 Yes 81mg Take 81 mg U nivers mg chewable 1-25 by mouth ity of tablet 11:52: daily. [place] [address] Medical Branch HYDROcodone 2021-02 Yes 1{tbl} Take 1 Un jb -acetaminop 1-25 tablet by ity of hen 5-325 11:52: mouth [place] mg tablet 32 the Medical morning Branch and 1 tablet at noon and 1 tablet in the evening. fluticasone 2021-02 Yes 1{puff} Inhale 1 Univers propion-tavia 1-25 Puff every it y of meteroL 11:52: 12 [place] 250-[address] (twelve) Medical mcg/dose hours. Branch inhalation disk flecainide 2021-02 Yes 50mg Take 50 mg U nivers acetate 1-25 by mouth ity of (FLECAINIDE 11:52: every [place] ORAL) 32 morning. Medical Branch metoprolol 2021-02 Yes 25mg Take 25 mg U nivers tartrate 25 1-25 by mouth ity of mg tablet 11:52: in the [place] [address] morning. Medical Branch gabapentin 2021-02 Yes 400mg Take 400 Un jb 400 mg 1-25 mg by ity of capsule 11:52: mouth 3 [place] [address] (three) Medical times Branch daily. pantoprazol 2021-02 Yes 40mg Take 40 mg Univers e 40 mg EC 1-25 by mouth ity o f tablet 11:52: daily. [address] aspirin 81 2021-02 Yes 81mg Take 81 mg U nivers mg chewable 1-25 by mouth ity of tablet 11:52: daily. [address] Branch HYDROcodone 2021-02 Yes 1{tbl} Take 1 Un jb -acetaminop 1-25 tablet by ity of hen 5-325 11:52: mouth [place] mg tablet 32 the Medical morning Branch and 1 tablet at noon and 1 tablet in the evening. fluticasone 2021-02 Yes 1{puff} Inhale 1 Univers propion-tavia 1-25 Puff every it y of meteroL 11:52: 12 [place] [address] (twelve) Medical mcg/dose hours. Branch inhalation disk flecainide 2021-02 Yes 50mg Take 50 mg U nivers acetate 1-25 by mouth ity of (FLECAINIDE 11:52: every [place] ORAL) morning. Medical Branch metoprolol 2021-02 Yes 25mg Take 25 mg U nivers tartrate 25 1-25 by mouth ity of mg tablet 11:52: in the [place] [address] morning. Medical Branch gabapentin 2021-02 Yes 400mg Take 400 Un jb 400 mg 1-25 mg by ity of capsule 11:52: mouth 3 [place] [address] (three) Medical times Branch daily. pantoprazol 2021-02 Yes 40mg Take 40 mg Univers e 40 mg EC 1-25 by mouth ity o f tablet 11:52: daily. [address] aspirin 81 2021-02 Yes 81mg Take 81 mg U nivers mg chewable 1-25 by mouth ity of tablet 11:52: daily. [address] HYDROcodone 2021-02 Yes 1{tbl} Take 1 Un jb -acetaminop 1-25 tablet by ity of hen 5-325 11:52: mouth [place] mg tablet 32 the Medical morning Branch and 1 tablet at noon and 1 tablet in the evening. hydrocortis 2021-02- No [id number] 25mg Insert 1 Univers one 25 mg 1-25 02-24 Suppositor ity of suppository 00:00: 05:59 y into [place] 00 :00 rectum in [facility] morning and 1 Suppositor y in the evening. Do all this for 90 days. hydrocortis 2021-02- No [id number] 25mg Insert 1 Univers one 25 mg 1-25 02-24 Suppositor ity of suppository 00:00: 05:59 y into [place] 00 :00 rectum in [facility] morning and 1 Suppositor y in the evening. Do all this for 90 days. hydrocortis 2021-02- No [id number] 25mg Insert 1 Univers one 25 mg 1-25 02-24 Suppositor ity of suppository 00:00: 05:59 y into [place] 00 :00 rectum in [facility] morning and 1 Suppositor y in the evening. Do all this for 90 days. hydrocortis 2021-02- No [id number] 25mg Insert 1 Univers one 25 mg 1-25 02-24 Suppositor ity of suppository 00:00: 05:59 y into [place] 00 :00 rectum in [facility] morning and 1 Suppositor y in the evening. Do all this for 90 days. hydrocortis 2021-02- No [id number] 25mg Insert 1 Univers one 25 mg 1-25 02-24 Suppositor ity of suppository 00:00: 05:59 y into [place] 00 :00 rectum in [facility] morning and 1 Suppositor y in the evening. Do all this for 90 days. hydrocortis 2021-02- No [id number] 25mg Insert 1 Univers one 25 mg 1-25 02-24 Suppositor ity of suppository 00:00: 05:59 y into [place] 00 :00 rectum in [facility] morning and 1 Suppositor y in the evening. Do all this for 90 days. predniSONE 2021-02- No [id number] Take 2 Univers 20 mg 1-25 12-09 tablets by ity of tablet 00:00: 05:59 mouth [place] 00 :00 daily for Medical 2 days, Branch THEN 1.5 tablets daily for 4 days, THEN 1 tablet daily for 4 days, THEN 0.5 tablets daily for 3 days. predniSONE 2021-02 No [id number] Take 2 Univers 20 mg 25 12-09 tablets by ity of tablet 00:00: 05:59 mouth [place] 00 :00 daily for Medical 2 days, Branch THEN 1.5 tablets daily for 4 days, THEN 1 tablet daily for 4 days, THEN 0.5 tablets daily for 3 days. oseltamivir 2021-02- No [id number] 75mg Take 1 Univers 75 mg 03-01 capsule by ity of capsule 00:00: 05:59 mouth in [place] 00 :00 the Medical morning Branch and 1 capsule in the evening. Do all this for 2 days. HYDROmorphO 2021-02 No .5mg 0.5 mg, Un jb ne 02-28 Slow IV ity of (DILAUDID) 23:29: 23:28 Push, [place] injection 46 :46 Q4HPRN, Medical 0.5 mg Starting Branch on Sun12/29/21 at 1729, Until Sun12/30/21 at 1728, Routine, Pain (scale 7-10)
U se approved by (Faculty): [employer] PROVIDER HYDROcodone 2021-02- No 1{tbl} 1 tablet, Univers -acetaminop 02-28 Oral, ity of hen (NORCO 23:29: 23:28 Q6HPRN, [place] 5) 5-325 mg 01 :01 Starting Medi kandis tablet 1 on [place] Branch tablet 12/29/21 at 1729, Until Sun12/30/21 at 1728, Routine, Pain (scale 4-6) hydrocortis 2021-02 Yes 25mg 25 mg, Univ ers one 02-28 Rectal, ity of (ANUSOL-HC) 17:45: BID, First [place] suppository 00 dose on Medic al 25 mg [place] Branch 12/29/21 at 1145, Until Discontinu ed, Routine levalbutero 2021-02 Yes .31mg 0.31 mg, U nivers l (XOPENEX) 02-28 Inhalation it y of nebulizer 02:00: , TID, [place] solution 00 First dose Medic al 0.31 mg on Wed Branch 12/28/21 at 2000, Until Discontinu ed, Routine phenoL 2021-02 Yes 1{spray 1 [place], Univ ers (SORE 02-27 } Oral, PRN, ity of THROAT 23:39: Starting [place] (PHENOL)) 09 on Sun Medical 1.4 % spray 12/28/21 Bran ch bottle 1 at 1739, [place] Until Discontinu ed, Routine, Sore throat enoxaparin 2021-02 Yes 40mg 40 mg, Unive rs (LOVENOX) 02-27 Subcutaneo ity of injection 15:00: [place], DAILY, [place] 40 mg 00 First dose Medical on Sun Branch 12/28/21 at 0900, Until Discontinu ed, Routine pantoprazol 2021-02 Yes 40mg 40 mg, Univ ers e 02-27 Oral, ity of (PROTONIX) 15:00: DAILY, [place] EC tablet 00 First dose Medi kandis 40 mg on Sun Branch 12/28/21 at 0900, Until Discontinu ed, Routine metoprolol 2021-02 Yes 25mg 25 mg, Unive rs tartrate 02-27 Oral, ity of (LOPRESSOR) 15:00: DAILY, [place] tablet 25 00 First dose Medi kandis mg on Sun Branch 12/28/21 at 0900, Until Discontinu ed, Routine flecainide 2021-02 Yes 50mg 50 mg, Unive rs (TAMBOCOR) 02-27 Oral, QAM, ity of tablet 50 15:00: First dose [place] mg 00 on Sun Medical 12/28/21 Branch at 0900, Until Discontinu ed aspirin 2021-02 Yes 81mg 81 mg, Univers chewable 02-27 Oral, ity of tablet 81 15:00: DAILY, [place] mg 00 First dose Medical on Sun Branch 12/28/21 at 0900, Until Discontinu ed, Routine predniSONE 2021-02 No 40mg 40 mg, Univ ers (DELTASONE) 02-27 Oral, ity of tablet 40 15:00: 14:59 DAILY, 5 [place] mg 00 :00 doses, Medical First dose Branch on Sun12/28/21 at 0900, Last dose on 01/01/22 at 0900, Routine fluticasone 2021-02 Yes 1{puff} 1 Puff, Univers propion-tavia 02-27 Inhalation it y of meteroL 07:45: , Q12H, [place] (ADVAIR) 00 First dose Medic al 250-50 on [facility] mcg/dose 12/28/21 inhalation at 0145, disk 1 Puff Until Discontinu ed, Routine ipratropium 2021-02 Yes .5mg 0.5 mg, Uni vers (ATROVENT) 02-27 Inhalation ity of 0.02 % 06:00: , Q6H, [place] nebulizer 00 First dose Medi kandis solution on [facility] 0.5 mg 12/28/21 at 0000, Until Discontinu ed, Routine docusate 2021-02 Yes 100mg 100 mg, Unive rs (COLACE) 02-27 Oral, BID, ity o f capsule 100 02:00: First dose [place] mg 00 on [facility] 12/27/21 Branch at 1999, Until Discontinu ed, Routine oseltamivir 2021-02 No 75mg 75 mg, Uni vers (TAMIFLU) 02-27 Oral, BID, ity of capsule 75 02:00: 01:59 10 doses, [place] mg 00 :00 First dose Medical on [facility] 12/27/21 at 1999, Last dose on 01/01/22 at 0800, Routine methylPREDN 2021-02 No 40mg 40 mg, Uni vers ISolone sod 02-27 Intravenou i ty of succ 01:45: 02:05 s, ONCE, 1 [place] (SOLU-MEDRO 00 :00 dose, On Medi kandis L (PF)) [facility] injection 12/27/21 40 mg at 1945, 1 mL guaiFENesin 2021-02 Yes 200mg 200 mg, Un jb 100 mg/5 mL 02-27 Oral, ity of solution 00:50: Q6HPRN, [place] 200 mg 38 Starting Medical on [facility] 12/27/21 at 1850, Until Discontinu ed, Routine, Cough bisacodyL 2021-02 Yes 10mg 10 mg, Univer s (DULCOLAX) 02-27 Rectal, ity of suppository 00:49: QDAILYPRN, [place] 10 mg 21 Starting Medical on [facility] 12/27/21 at 1849, Until Discontinu ed, Routine, Constipati on unresolved by oral medication s ondansetron 2021-02 Yes 4mg 4 mg, Slow Univers (ZOFRAN 02-27 IV Push, ity of (PF)) 00:49: Q6HPRN, [place] injection 4 09 Starting Medi kandis mg on e Branch 12/27/21 at 1849, Until Discontinu ed, Routine, Nausea and Vomiting (N/V) HYDROmorpho 2021-02- No .5mg 0.5 mg, Un jb ne 02-27 Slow IV ity of (DILAUDID) 00:48: 23:30 Push, [place] injection 25 :05 Q4HPRN, Medical 0.5 mg Starting Branch on Sun12/27/21 at 1848, Until [place] 12/29/21 at 1730, Routine, Pain (scale 7-10)
U se approved by (Faculty): [employer] PROVIDER HYDROcodone 2021-02- No 1{tbl} 1 tablet, Univers -acetaminop 02-27 Oral, ity of hen (NORCO 00:47: 23:29 Q6HPRN, [place] 5) 5-325 mg 58 :43 Starting Medi kandis tablet 1 on Sun Branch tablet 12/27/21 at 1847, Until Leah 12/29/21 at 1729, Routine, Pain (scale 4-6) acetaminoph 2021-02 Yes 650mg 650 mg, Un jb en 02-27 Oral, ity of (TYLENOL) 00:47: Q6HPRN, [place] tablet 650 40 Starting Medic al mg on e Branch 12/27/21 at 1847, Until Discontinu ed, Routine, Pain (scale 1-3), Temp > 38.5 C FENTanyl PF 2021-02- No 25ug 25 mcg, Un jb (SUBLIMAZE 02-26 Slow IV ity o f (PF)) 23:30: 22:33 Push, [place] injection 00 :00 ONCE, 1 Medical 25 mcg dose, On Branch e 12/27/21 at 1730, STAT metoclopram 2021-02- No 10mg 10 mg, Uni vers lawson HCl 02-26 Slow IV ity of (REGLAN) 22:45: 22:44 Push, [place] injection 00 :00 ONCE, 1 Medical 10 mg dose, On Branch Sun12/27/21 at 1645, EILEEN oseltamivir 2021-02- No 75mg 75 mg, Uni vers (TAMIFLU) 02-26 Oral, ity of capsule 75 22:45: 21:49 ONCE, 1 [place] mg 00 :00 dose, On Medical Branch 12/27/21 at 1645, EILEEN azithromyci 2021-02- No 500mg 500 mg, IV Univers n 02-26 Piggyback, ity of (ZITHROMAX) 22:30: 22:53 ONCE, 1 [place] 500 mg in 00 :23 dose, On Medica l NaCl 0.9% Sun Branch (NS) 250 mL 12/27/21 VIAL-MATE at 1630, IV Administer piggyback over 60 Minutes, 250 mL
Reas on for Anti-Infec tive: Documented Infection< br>Documen blayne Infection Site: Respirator y
Du ration of Therapy: Other (see Comments) cefTRIAXone 2021-02 No 2000mg 2,000 mg, Univers (ROCEPHIN) 02-26 IV ity of injection 21:45: 21:49 Piggyback, [place] 2,000 mg 00 :00 ONCE, 1 Medical dose, On Branch Sun12/27/21 at 1545
Re ason for Anti-Infec tive: Documented Infection< br>Documen blayne Infection Site: Respirator y
Durat ion of Therapy: Other (see Comments) NaCl 0.9% 2021-02 No 500mL at 999 Univ ers (NS) bolus 02-26 mL/hr, 500 it y of infusion 21:00: 21:50 mL, IV [place] 500 mL 00 :00 Infusion, Medical ONCE, 1 Branch dose, On Sun12/27/21 at 1500, STAT acetaminoph 2021-02 No 975mg 975 mg, U nivers en 02-26 Oral, ity of (TYLENOL) 20:45: 19:43 ONCE, 1 [place] tablet 975 00 :00 dose, On Medic al mg Branch 12/27/21 at 1445, [facility] iopamidol 2021-02- No [id number] 70mL 70 mL, U nivers (ISOVUE 02-26 Intravenou ity o f 370-500 mL) 20:00: 20:01 s, ONCE, 1 [place] injection 00 :00 dose, On Medica l 70 mL [facility] 12/27/21 at 1400, Routine ketorolac 2021-02- No 30mg 30 mg, Unive rs (TORADOL) 02-26 Slow IV ity of injection 19:45: 18:45 Push, [place] 30 mg 00 :00 ONCE, 1 Medical dose, On [place] Sun12/27/21 at 1345, EILEEN FENTanyl PF 2021-02- No 75ug 75 mcg, Un jb (SUBLIMAZE 02-26 Slow IV ity o f (PF)) 19:30: 18:33 Push, [place] injection 00 :00 ONCE, 1 Medical 75 mcg dose, On [facility] 12/27/21 at 1330, STAT melatonin 3 2021-02- No 6mg Take 6 mg Univers mg tablet 02-26 by mouth ity o f 18:51: 00:00 at [place] 50 :00 bedtime. Medical Branch FENTanyl PF 2021-02- No 50ug 50 mcg, Un jb (SUBLIMAZE 02-26 Slow IV ity o f (PF)) 18:45: 17:39 Push, [place] injection 00 :00 ONCE, 1 Medical 50 mcg dose, On [facility] 12/27/21 at 1245, STAT ondansetron 2021-02- No 4mg 4 mg, Slow Univers (ZOFRAN 02-26 IV Push, ity of (PF)) 18:45: 17:39 ONCE, 1 [place] injection 4 00 :00 dose, On Medi kandis mg [facility] 12/27/21 at 1245, EILEEN fluticasone 2021-02 Yes 1{puff} Inhale 1 Univers propion-tavia 0-30 Puff every it y of meteroL 18:14: 12 [place] 250-50 57 (twelve) Medical mcg/dose hours. Branch inhalation disk flecainide 2021-02 Yes 50mg Take 50 mg U nivers acetate 0-30 by mouth ity of (FLECAINIDE 18:14: every [place] ORAL) 57 morning. Medical Branch metoprolol 2021-02 Yes 25mg Take 25 mg U nivers tartrate 25 0-30 by mouth ity of mg tablet 18:14: in the [place] [address] morning. Medical Branch gabapentin 2021-02 Yes 400mg Take 400 Un jb 400 mg 0-30 mg by ity of capsule 18:14: mouth 3 [place] [address] (three) Medical times Branch daily. pantoprazol 2021-02 Yes 40mg Take 40 mg Univers e 40 mg EC 0-30 by mouth ity o f tablet 18:14: daily. [place] [address] Medical Branch aspirin 81 2021-02 Yes 81mg Take 81 mg U nivers mg chewable 0-30 by mouth ity of tablet 18:14: daily. [place] [address] Medical Branch melatonin 3 2021-02 Yes 6mg Take 6 mg U nivers mg tablet 0-30 by mouth ity of 18:14: at [place] [address] bedtime. Medical Branch HYDROcodone 2021-02 Yes 1{tbl} Take 1 Un jb -acetaminop 0-30 tablet by ity of hen 5-325 18:14: mouth in [facility] s mg tablet 57 the Medical morning Branch and 1 tablet at noon and 1 tablet in the evening. fluticasone 2021-02 Yes 1{puff} Inhale 1 [facility] propion-tavia 0-30 Puff every it y of meteroL 18:14: 12 [place] 250-50 57 (twelve) Medical mcg/dose hours. Branch inhalation disk flecainide 2021-02 Yes 50mg Take 50 mg U nivers acetate 0-30 by mouth ity of (FLECAINIDE 18:14: every [place] ORAL) 57 morning. Medical Branch metoprolol 2021-02 Yes 25mg Take 25 mg U nivers tartrate 25 0-30 by mouth ity of mg tablet 18:14: in the [place] [address] morning. Medical Branch gabapentin 2021-02 Yes 400mg Take 400 Un jb 400 mg 0-30 mg by ity of capsule 18:14: mouth 3 [place] [address] (three) Medical times Branch daily. pantoprazol 2021-02 Yes 40mg Take 40 mg [facility] e 40 mg EC 0-30 by mouth ity o f tablet 18:14: daily. [place] [address] Medical Branch aspirin 81 2021-02 Yes 81mg Take 81 mg U nivers mg chewable 0-30 by mouth ity of tablet 18:14: daily. [place] [address] Medical Branch melatonin 3 2021-02 Yes 6mg Take 6 mg U nivers mg tablet 0-30 by mouth ity of 18:14: at [place] [address] bedtime. Medical Branch HYDROcodone 2021-02 Yes 1{tbl} Take 1 Un jb -acetaminop 0-30 tablet by ity of hen 5-325 18:14: mouth in [place] mg tablet 57 the Medical morning Branch and 1 tablet at noon and 1 tablet in the evening. fluticasone 2021-02 Yes 1{puff} Inhale 1 [facility] propion-tavia 0-30 Puff every it y of meteroL 18:14: 12 [place] 250-50 (twelve) Medical mcg/dose hours. Branch inhalation disk flecainide 2021-02 Yes 50mg Take 50 mg U nivers acetate 0-30 by mouth ity of (FLECAINIDE 18:14: every [place] ORAL) morning. Medical Branch metoprolol 2021-02 Yes 25mg Take 25 mg U nivers tartrate 25 0-30 by mouth ity of mg tablet 18:14: in the [place] [address] morning. Medical Branch gabapentin 2021-02 Yes 400mg Take 400 Un jb 400 mg 0-30 mg by ity of capsule 18:14: mouth 3 [place] [address] (three) Medical times Branch daily. pantoprazol 2021-02 Yes 40mg Take 40 mg [facility] e 40 mg EC 0-30 by mouth ity o f tablet 18:14: daily. [place] [address] Medical Branch aspirin 81 2021-02 Yes 81mg Take 81 mg U nivers mg chewable 0-30 by mouth ity of tablet 18:14: daily. [place] [address] Medical Branch melatonin 3 2021-02 Yes 6mg Take 6 mg U nivers mg tablet 0-30 by mouth ity of 18:14: at [place] [address] bedtime. Medical Branch HYDROcodone 2021-02 Yes 1{tbl} Take 1 Un jb -acetaminop 0-30 tablet by ity of hen 5-325 18:14: mouth in [place] mg tablet 57 the Medical morning Branch and 1 tablet at noon and 1 tablet in the evening. fluticasone 2021-02 Yes 1{puff} Inhale 1 [facility] propion-tavia 0-30 Puff every it y of meteroL 18:14: 12 [place] 250-50 57 (twelve) Medical mcg/dose hours. Branch inhalation disk flecainide 2021-02 Yes 50mg Take 50 mg U nivers acetate 0-30 by mouth ity of (FLECAINIDE 18:14: every [place] ORAL) 57 morning. Medical Branch metoprolol 2021-02 Yes 25mg Take 25 mg U nivers tartrate 25 0-30 by mouth ity of mg tablet 18:14: in the [place] 57 morning. Medical Branch gabapentin 2021-02 Yes 400mg Take 400 Un jb 400 mg 0-30 mg by ity of capsule 18:14: mouth 3 [place] [address] (three) Medical times Branch daily. pantoprazol 2021-02 Yes 40mg Take 40 mg Univers e 40 mg EC 0-30 by mouth ity o f tablet 18:14: daily. [place] [address] Medical Branch aspirin 81 2021-02 Yes 81mg Take 81 mg U nivers mg chewable 0-30 by mouth ity of tablet 18:14: daily. [place] [address] Medical Branch melatonin 3 2021-02 Yes 6mg Take 6 mg U nivers mg tablet 0-30 by mouth ity of 18:14: at [place] [address] bedtime. Medical Branch HYDROcodone 2021-02 Yes 1{tbl} Take 1 Un jb -acetaminop 0-30 tablet by ity of hen 5-325 18:14: mouth in [place] mg tablet 57 the Medical morning Branch and 1 tablet at noon and 1 tablet in the evening. sulfur 2021-02- No [id number] 5mL 5 mL, Univ ers hexafluorid 0-30 10-30 Intravenou i ty of e microsphr 15:00: 14:49 s, ONCE, 1 [place] (LUMASON) 00 :00 dose, On Medica l injection 5 [place] [facility] mL 12/04/21 at 1000, Routine
membership correspondent approving Restricted medication : JOHN HOOPER lactobacill 2021-02 Yes .5mg 0.5 mg, Uni vers us 0-30 Oral, ity of acidophilus 14:00: DAILY, [place] tablet 0.5 00 First dose Med ical mg on [place] [facility] 12/04/21 at 0900, Until Discontinu ed, Routine enoxaparin 2021-02 Yes 40mg 40 mg, Unive rs (LOVENOX) 0-30 Subcutaneo ity of injection 14:00: [place], DAILY, [place] 40 mg 00 First dose Medical on [facility] 12/04/21 at 0900, Until Discontinu ed, Routine polyethylen 2021-02 Yes 17g 17 g, Unive rs e glycol 0-30 Oral, ity of 3350 powder 14:00: DAILY, [place] 17 g 00 First dose Medical on [facility] 12/04/21 at 0900, Until Discontinu ed, Routine pantoprazol 2021-02 Yes 40mg 40 mg, Univ ers e 0-30 Oral, ity of (PROTONIX) 14:00: DAILY, [place] EC tablet 00 First dose Medi kandis 40 mg on [facility] 12/04/21 at 0900, Until Discontinu ed, Routine flecainide 2021-02 Yes 50mg 50 mg, Unive rs (TAMBOCOR) 0-30 Oral, QAM, ity of tablet 50 14:00: First dose [place] mg 00 on [facility] 12/04/21 Branch at 0900, Until Discontinu ed aspirin 2021-02 Yes 81mg 81 mg, Univers chewable 0-30 Oral, ity of tablet 81 14:00: DAILY, [place] mg 00 First dose Medical on [facility] 12/04/21 at 0900, Until Discontinu ed, Routine predniSONE 2021-02 Yes 50mg 50 mg, Unive rs (DELTASONE) 0-30 Oral, QAM ity of tablet 50 13:00: WITH [place] mg 00 BREAKFAST, Medical First dose Branch on [place] 12/04/21 at 0800, Until Discontinu ed, Routine magnesium 2021-02 Yes 400mg 400 mg, Univ ers oxide 0-30 Oral, BID, ity of (MAG-OX 13:00: First [place] 400[facility]21 Branch at 0800, Until Discontinu ed, Routine budesonide 2021-02 Yes .5mg 0.5 mg, Univ ers (PULMICORT 0-30 Inhalation ity of RESPULE) 13:00: , BID, [place] nebulizer 00 First dose Medi kandis solution on [place] Branch 0.5 mg 12/04/21 at 0800, Until Discontinu ed, Routine levoFLOXaci 2021-02 Yes 750mg 750 mg, IV Univers n in D5W 0-30 Piggyback, ity o f (LEVAQUIN) 07:30: Q24H ABX, [place] 750 mg/150 00 First dose Med ical mL on [facility] Piggyback 12/04/21 750 mg at 0230, Until Discontinu ed, Administer over 90 Minutes, 150 mL
Reas on for Anti-Infec tive: Empiric Therapy for Suspected Infection< br>Empiric Therapy Site: Respirator y
Durat ion of therapy: 5 days
Re stricted use approved by: [employer] PROVIDER furosemide 2021-02 No 20mg 20 mg, IV U nivers (LASIX) 0-30 10-30 Push, ity of injection 07:15: 07:04 ONCE, 1 [place] 20 mg 00 :00 dose, On [facility] 12/04/21 at 0215, Routine magnesium 2021-02 No 2g 2 g, IV Univ ers sulfate in 0-30 10-30 Piggyback, it y of water 2 07:15: 07:56 Administer [place]j as gram/50 mL 00 :00 over 60 Medica l (4 %) Minutes, Branch infusion 2 ONCE, 1 g dose, On [place] 12/04/21 at 0215, Routine ipratropium 2021-02 Yes .5mg 0.5 mg, Uni vers (ATROVENT) 0-30 Inhalation ity of 0.02 % 06:30: , Q4H, [place] nebulizer 00 First dose Medi kandis solution on [place] Branch 0.5 mg 12/04/21 at 0130, Until Discontinu ed, Routine levalbutero 2021-02 Yes 1.25mg 1.25 mg, Univers l (XOPENEX) 0-30 Inhalation it y of nebulizer 06:30: , Q4H, [place] solution 00 First dose Medic al 1.25 mg (after Branch last reorder) on [place] 12/04/21 at 0130, Until Discontinu ed, Routine metoprolol 2021-02 Yes 25mg 25 mg, Unive rs tartrate 0-30 Oral, BID, ity o f (LOPRESSOR) 06:30: First dose [place] tablet 25 00 (after Medical mg last Branch modificati on) on [place] 12/04/21 at 0130, Until Discontinu ed, Routine HYDROcodone 2021-02 Yes 1{tbl} 1 tablet, Univers -acetaminop 0-30 Oral, ity of hen (NORCO) 03:28: Q6HPRN, [place] 10-325 mg 14 Starting Medica l tablet 1 on [facility] Branch tablet 12/03/21 at 2228, Until Discontinu ed, Routine, Pain (scale 4-6) FENTanyl PF 2021-02 Yes 25ug 25 mcg, Uni vers (SUBLIMAZE 0-30 Slow IV ity of (PF)) 03:27: Push, [place] injection 56 Q4HPRN, Medical 25 mcg Starting Branch on 12/03/21 at 2227, Until Discontinu ed, Routine, Pain (scale 7-10) melatonin 2021-02 Yes 6mg 6 mg, Univers (MELATIN) 0-30 Oral, QHS, ity of tablet 6 mg 02:00: First dose [place] 00 on [facility] Medical 12/03/21 Branch at 2100, Until Discontinu ed, Routine docusate 2021-02 Yes 100mg 100 mg, Unive rs (COLACE) 0-30 Oral, BID, ity o f capsule 100 01:00: First dose [place] mg 00 on [facility] Medical 12/03/21 Branch at 2000, Until Discontinu ed, Routine ondansetron 2021-02 Yes 4mg 4 mg, Slow Univers (ZOFRAN 0-30 IV Push, ity of (PF)) 00:39: Q6HPRN, [place] injection 4 05 Starting Medi kandis mg on [facility] Branch 12/03/21 at 1939, Until Discontinu ed, Routine, Nausea and Vomiting (N/V) HYDROcodone 2021-02- No 1{tbl} 1 tablet, Univers -acetaminop 0-30 10-30 Oral, ity of hen (NORCO) 00:39: 03:28 Q6HPRN, [place] 10-325 mg 02 :27 Starting Medica l tablet 1 on [facility] Branch tablet 12/03/21 at 1939, Until [facility] 12/03/21 at 2228, Routine, Pain (scale 7-10) acetaminoph 2021-02 Yes 650mg 650 mg, Un jb en 0-30 Oral, ity of (TYLENOL) 00:38: Q6HPRN, [place] tablet 650 49 Starting Medic al mg on Sat Branch 12/03/21 at 1938, Until Discontinu ed, Routine, Pain (scale 1-3), Temp > 38.5 C cyclobenzap 2021-02 Yes 10mg 10 mg, Univ ers rine 0-30 Oral, ity of (FLEXERIL) 00:37: TIDPRN, [place] tablet 10 03 Starting Medica l mg on Sat Branch 12/03/21 at 1937, Until Discontinu ed, Routine, Muscle Spasms levalbutero 2021-02- No 1.25mg 1.25 mg, Univers l (XOPENEX) 0-30 10-29 Inhalation i ty of nebulizer 00:15: 23:27 , ONCE [place] solution 00 :00 NOW, 1 Medical 1.25 mg dose, On Branch 12/03/21 at 1915, Routine levalbutero 2021-02 Yes 1.25mg Inhale Un jb l 1.25 mg/3 0-30 1.25 mg ity o f mL 00:00: every 4 [place] nebulizer 00 (four) Medical solution hours as Branch needed for Wheezing or Shortness of Breath. ipratropium 2021-02 Yes .5mg Inhale 2.5 Univers 0.02 % 0-30 mL every 4 ity of nebulizer 00:00: (four) [place] solution 00 hours as Medical needed for Branch Wheezing or Shortness of Breath. levalbutero 2021-02 Yes 1.25mg Inhale Un jb l 1.25 mg/3 0-30 1.25 mg ity o f mL 00:00: every 4 [place] nebulizer 00 (four) Medical solution hours as Branch needed for Wheezing or Shortness of Breath. ipratropium 2021-02 Yes .5mg Inhale 2.5 Univers 0.02 % 0-30 mL every 4 ity of nebulizer 00:00: (four) [place] solution 00 hours as Medical needed for Branch Wheezing or Shortness of Breath. levalbutero 2021-02 Yes 1.25mg Inhale Un jb l 1.25 mg/3 0-30 1.25 mg ity o f mL 00:00: every 4 [place] nebulizer 00 (four) Medical solution hours as Branch needed for Wheezing or Shortness of Breath. ipratropium 2021-02 Yes .5mg Inhale 2.5 Univers 0.02 % 0-30 mL every 4 ity of nebulizer 00:00: (four) [place] solution 00 hours as Medical needed for Branch Wheezing or Shortness of Breath. levalbutero 2021-02 Yes 1.25mg Inhale Un jb l 1.25 mg/3 0-30 1.25 mg ity o f mL 00:00: every 4 [place] nebulizer 00 (four) Medical solution hours as Branch needed for Wheezing or Shortness of Breath. ipratropium 2021-02 Yes .5mg Inhale 2.5 Univers 0.02 % 0-30 mL every 4 ity of nebulizer 00:00: (four) [place] solution 00 hours as Medical needed for Branch Wheezing or Shortness of Breath. levalbutero 2021-02 Yes 1.25mg Inhale Un jb l 1.25 mg/3 0-30 1.25 mg ity o f mL 00:00: every 4 [place] nebulizer 00 (four) Medical solution hours as Branch needed for Wheezing or Shortness of Breath. ipratropium 2021-02 Yes .5mg Inhale 2.5 Univers 0.02 % 0-30 mL every 4 ity of nebulizer 00:00: (four) [place] solution 00 hours as Medical needed for Branch Wheezing or Shortness of Breath. levalbutero 2021-02 Yes 1.25mg Inhale Un jb l 1.25 mg/3 0-30 1.25 mg ity o f mL 00:00: every 4 [place] nebulizer 00 (four) Medical solution hours as Branch needed for Wheezing or Shortness of Breath. ipratropium 2021-02 Yes .5mg Inhale 2.5 Univers 0.02 % 0-30 mL every 4 ity of nebulizer 00:00: (four) [place] solution 00 hours as Medical needed for Branch Wheezing or Shortness of Breath. levalbutero 2021-02 Yes 1.25mg Inhale Un jb l 1.25 mg/3 0-30 1.25 mg ity o f mL 00:00: every 4 [place] nebulizer 00 (four) Medical solution hours as Branch needed for Wheezing or Shortness of Breath. ipratropium 2021-02 Yes .5mg Inhale 2.5 Univers 0.02 % 0-30 mL every 4 ity of nebulizer 00:00: (four) [place] solution 00 hours as Medical needed for Branch Wheezing or Shortness of Breath. levalbutero 2021-02 Yes 1.25mg Inhale Un jb l 1.25 mg/3 0-30 1.25 mg ity o f mL 00:00: every 4 [place] nebulizer 00 (four) Medical solution hours as Branch needed for Wheezing or Shortness of Breath. ipratropium 2021-02 Yes .5mg Inhale 2.5 Univers 0.02 % 0-30 mL every 4 ity of nebulizer 00:00: (four) [place] solution 00 hours as Medical needed for Branch Wheezing or Shortness of Breath. levalbutero 2021-02 Yes 1.25mg Inhale Un jb l 1.25 mg/3 0-30 1.25 mg ity o f mL 00:00: every 4 [place] nebulizer 00 (four) Medical solution hours as Branch needed for Wheezing or Shortness of Breath. ipratropium 2021-02 Yes .5mg Inhale 2.5 Univers 0.02 % 0-30 mL every 4 ity of nebulizer 00:00: (four) [place] solution 00 hours as Medical needed for Branch Wheezing or Shortness of Breath. levalbutero 2021-02 Yes 1.25mg Inhale Un jb l 1.25 mg/3 0-30 1.25 mg ity o f mL 00:00: every 4 [place] nebulizer 00 (four) Medical solution hours as Branch needed for Wheezing or Shortness of Breath. ipratropium 2021-02 Yes .5mg Inhale 2.5 Univers 0.02 % 0-30 mL every 4 ity of nebulizer 00:00: (four) [place] solution 00 hours as Medical needed for Branch Wheezing or Shortness of Breath. levalbutero 2021-02 Yes 1.25mg Inhale Un jb l 1.25 mg/3 0-30 1.25 mg ity o f mL 00:00: every 4 [place] nebulizer 00 (four) Medical solution hours as Branch needed for Wheezing or Shortness of Breath. ipratropium 2021-02 Yes .5mg Inhale 2.5 Univers 0.02 % 0-30 mL every 4 ity of nebulizer 00:00: (four) [place] solution 00 hours as Medical needed for Branch Wheezing or Shortness of Breath. levalbutero 2021-02 Yes 1.25mg Inhale Un jb l 1.25 mg/3 0-30 1.25 mg ity o f mL 00:00: every 4 [place] nebulizer 00 (four) Medical solution hours as Branch needed for Wheezing or Shortness of Breath. ipratropium 2021-02 Yes .5mg Inhale 2.5 Univers 0.02 % 0-30 mL every 4 ity of nebulizer 00:00: (four) [place] solution 00 hours as Medical needed for Branch Wheezing or Shortness of Breath. levalbutero 2021-02 Yes 1.25mg Inhale Un jb l 1.25 mg/3 0-30 1.25 mg ity o f mL 00:00: every 4 [place] nebulizer 00 (four) Medical solution hours as Branch needed for Wheezing or Shortness of Breath. ipratropium 2021-02 Yes .5mg Inhale 2.5 Univers 0.02 % 0-30 mL every 4 ity of nebulizer 00:00: (four) [place] solution 00 hours as Medical needed for Branch Wheezing or Shortness of Breath. NaCl 0.9% 2021-02- No 500mL at 999 Univ ers (NS) bolus 0- 10-30 mL/hr, 500 it y of infusion 23:00: 00:08 mL, IV [place] 500 mL 00 :00 Infusion, Medical ONCE, 1 Branch dose, On 12/03/21 at 1800, EILEEN HYDROcodone 2021-02- No 1{tbl} 1 tablet, Univers -acetaminop 0-03 12-29 Oral, ity of hen (NORCO 23:00: 23:02 ONCE, 1 [place] 5) 5-325 mg 00 :00 dose, On Medi kandis tablet 1 Sat Branch tablet 12/03/21 at 1800, EILE[place] FENTanyl PF 2021-02- No 25ug 25 mcg, Un jb (SUBLIMAZE 0-03 12-29 Slow IV ity o f (PF)) 23:00: 23:15 Push, [place] injection 00 :00 ONCE, 1 Medical 25 mcg dose, On Branch 12/03/21 at 1800, STAT methylPREDN 2021-02- No 120mg 120 mg, U nivers ISolone sod 0-29 10-29 Intravenou i ty of succ 23:00: 23:00 s, ONCE, 1 [place] (SOLU-MEDRO 00 :00 dose, On Medi kandis L (PF)) Sat Branch injection 12/03/21 120 mg at 1800, EILEEN nitroglycer 2021-02- No .4mg 0.4 mg, Un jb in 12-03 Sublingual ity of (NITROSTAT) 22:56: 23:14 , Q5MIN [place] sublingual 09 :00 PRN, 3 Medical tablet 0.4 doses, Branch mg Starting on 12/03/21 at 1756, Until 12/03/21 at 1814, EILEEN, Chest pain predniSONE [id number] Take 6 Univers 10 mg 0-23 11-08 tablets by ity of tablet 00:00: 05:59 mouth [place] 00 :00 daily for Medical 3 days, Branch THEN 3 tablets daily for 3 days, THEN 2 tablets daily for 3 days, THEN 1 tablet daily for 3 days, THEN 0.5 tablets daily for 3 days. predniSONE [id number] Take 6 Univers 10 mg 0-23 11-08 tablets by ity of tablet 00:00: 05:59 mouth [place] 00 :00 daily for Medical 3 days, Branch THEN 3 tablets daily for 3 days, THEN 2 tablets daily for 3 days, THEN 1 tablet daily for 3 days, THEN 0.5 tablets daily for 3 days. predniSONE [id number] Take 6 Univers 10 mg 0-23 11-08 tablets by ity of tablet 00:00: 05:59 mouth [place] 00 :00 daily for Medical 3 days, Branch THEN 3 tablets daily for 3 days, THEN 2 tablets daily for 3 days, THEN 1 tablet daily for 3 days, THEN 0.5 tablets daily for 3 days. predniSONE [id number] Take 6 Univers 10 mg 0-23 11-08 tablets by ity of tablet 00:00: 05:59 mouth [place] 00 :00 daily for Medical 3 days, Branch THEN 3 tablets daily for 3 days, THEN 2 tablets daily for 3 days, THEN 1 tablet daily for 3 days, THEN 0.5 tablets daily for 3 days. predniSONE [id number] Take 6 Univers 10 mg 0-23 11-08 tablets by ity of tablet 00:00: 05:59 mouth [place] 00 :00 daily for Medical 3 days, Branch THEN 3 tablets daily for 3 days, THEN 2 tablets daily for 3 days, THEN 1 tablet daily for 3 days, THEN 0.5 tablets daily for 3 days. predniSONE 2021-02- No [id number] Take 6 Univers 10 mg 0-23 11-08 tablets by ity of tablet 00:00: 05:59 mouth [place] 00 :00 daily for Medical 3 days, Branch THEN 3 tablets daily for 3 days, THEN 2 tablets daily for 3 days, THEN 1 tablet daily for 3 days, THEN 0.5 tablets daily for 3 days. fluticasone 2021-02 Yes 1{puff} Inhale 1 Univers propion-tavia 0-22 Puff every it y of meteroL 16:39: 12 [place] 250-50 (twelve) Medical mcg/dose hours. Branch inhalation disk flecainide 2021-02 Yes 50mg Take 50 mg U nivers acetate 0-22 by mouth ity of (FLECAINIDE 16:39: every [place] ORAL) 58 morning. Medical Branch metoprolol 2021-02 Yes 25mg Take 25 mg U nivers tartrate 25 0-22 by mouth ity of mg tablet 16:39: in the [place] 58 morning. Medical Branch gabapentin 2021-02 Yes 400mg Take 400 Un jb 400 mg 0-22 mg by ity of capsule 16:39: mouth 3 [place] [address] (three) Medical times Branch daily. pantoprazol 2021-02 Yes 40mg Take 40 mg Univers e 40 mg EC 0-22 by mouth ity o f tablet 16:39: daily. [place] [address] Medical Branch aspirin 81 2021-02 Yes 81mg Take 81 mg U nivers mg chewable 0-22 by mouth ity of tablet 16:39: daily. [place] [address] Medical Branch melatonin 3 2021-02 Yes 6mg Take 6 mg U nivers mg tablet 0-22 by mouth ity of 16:39: at [place] [address] bedtime. Medical Branch HYDROcodone 2021-02 Yes 1{tbl} Take 1 Un jb -acetaminop 0-22 tablet by ity of hen 5-325 16:39: mouth in [place] mg tablet 58 the Medical morning Branch and 1 tablet at noon and 1 tablet in the evening. fluticasone 2021-02 Yes 1{puff} Inhale 1 [facility] propion-tavia 0-22 Puff every it y of meteroL 16:39: 12 [place] 250-50 58 (twelve) Medical mcg/dose hours. Branch inhalation disk flecainide 2021-02 Yes 50mg Take 50 mg U nivers acetate 0-22 by mouth ity of (FLECAINIDE 16:39: every [place] ORAL) 58 morning. Medical Branch metoprolol 2021-02 Yes 25mg Take 25 mg U nivers tartrate 25 0-22 by mouth ity of mg tablet 16:39: in the [place] [address] morning. Medical Branch gabapentin 2021-02 Yes 400mg Take 400 Un jb 400 mg 0-22 mg by ity of capsule 16:39: mouth 3 [place] [address] (three) Medical times Branch daily. pantoprazol 2021-02 Yes 40mg Take 40 mg Univers e 40 mg EC 0-22 by mouth ity o f tablet 16:39: daily. [place] [address] Medical Branch aspirin 81 2021-02 Yes 81mg Take 81 mg U nivers mg chewable 0-22 by mouth ity of tablet 16:39: daily. [place] [address] Medical Branch melatonin 3 2021-02 Yes 6mg Take 6 mg U nivers mg tablet 0-22 by mouth ity of 16:39: at [place] [address] bedtime. Medical Branch HYDROcodone 2021-02 Yes 1{tbl} Take 1 Un jb -acetaminop 0-22 tablet by ity of hen 5-325 16:39: mouth in [facility] s mg tablet 58 the Medical morning Branch and 1 tablet at noon and 1 tablet in the evening. fluticasone 2021-02 Yes 1{puff} Inhale 1 [facility] propion-tavia 0-22 Puff every it y of meteroL 16:39: 12 [place] 250- 58 (twelve) Medical mcg/dose hours. Branch inhalation disk flecainide 2021-02 Yes 50mg Take 50 mg U nivers acetate 0-22 by mouth ity of (FLECAINIDE 16:39: every [place] ORAL) 58 morning. Medical Branch metoprolol 2021-02 Yes 25mg Take 25 mg U nivers tartrate 25 0-22 by mouth ity of mg tablet 16:39: in the [place] [address] morning. Medical Branch gabapentin 2021-02 Yes 400mg Take 400 Un jb 400 mg 0-22 mg by ity of capsule 16:39: mouth 3 [place] 58 (three) Medical times Branch daily. pantoprazol 2021-02 Yes 40mg Take 40 mg Univers e 40 mg EC 0-22 by mouth ity o f tablet 16:39: daily. [place] [address] Medical Branch aspirin 81 2021-02 Yes 81mg Take 81 mg U nivers mg chewable 0-22 by mouth ity of tablet 16:39: daily. [place] [address] Medical Branch melatonin 3 2021-02 Yes 6mg Take 6 mg U nivers mg tablet 0-22 by mouth ity of 16:39: at [place] [address] bedtime. Medical Branch HYDROcodone 2021-02 Yes 1{tbl} Take 1 Un jb -acetaminop 0-22 tablet by ity of hen 5-325 16:39: mouth in [facility] s mg tablet 58 the Medical morning Branch and 1 tablet at noon and 1 tablet in the evening. predniSONE 2021-02 Yes 60mg 60 mg, Unive rs (DELTASONE) 0-22 Oral, ity of tablet 60 14:00: DAILY, [place] mg 00 First dose Medical (after Branch last modificati on) on 11/26/21 at 0900, Until Discontinu ed, Routine cyclobenzap 2021-02- No [id number] 10mg Take 1 Univers rine 10 mg 0-22 11-22 tablet by ity of tablet 00:00: 05:59 mouth 3 [place] 00 :00 (three) Medical times [place] daily as needed for Muscle Spasms for up to 30 days. cyclobenzap 2021-02- No [id number] 10mg Take 1 Univers rine 10 mg 0-22 11-22 tablet by ity of tablet 00:00: 05:59 mouth 3 [place] 00 :00 (three) Medical times Branch daily as needed for Muscle Spasms for up to 30 days. cyclobenzap 2021-02- No [id number] 10mg Take 1 Univers rine 10 mg 0-22 11-22 tablet by ity of tablet 00:00: 05:59 mouth 3 [place] 00 :00 (three) Medical times [place] daily as needed for Muscle Spasms for up to 30 days. cyclobenzap 2021-02 No [id number] 10mg Take 1 Univers rine 10 mg 0-22 11-22 tablet by ity of tablet 00:00: 05:59 mouth 3 [place] 00 :00 (three) Medical times Branch daily as needed for Muscle Spasms for up to 30 days. cyclobenzap 2021-02 No [id number] 10mg Take 1 Univers rine 10 mg 0-22 11-22 tablet by ity of tablet 00:00: 05:59 mouth 3 [place] 00 :00 (three) Medical times Branch daily as needed for Muscle Spasms for up to 30 days. cyclobenzap 2021-02 No [id number] 10mg Take 1 Univers rine 10 mg 0-22 11-22 tablet by ity of tablet 00:00: 05:59 mouth 3 [place] 00 :00 (three) Medical times Branch daily as needed for Muscle Spasms for up to 30 days. cyclobenzap 2021-02 No [id number] 10mg Take 1 Univers rine 10 mg 0-22 11-22 tablet by ity of tablet 00:00: 05:59 mouth 3 [place] 00 :00 (three) Medical times Branch daily as needed for Muscle Spasms for up to 30 days. codeine-gua 2021-02 No [id number] 5mL Take 5 mL Univers ifenesin 0-22 10-30 by mouth ity of 10-100 mg/5 00:00: 04:59 every 6 [place] mL oral 00 :00 (six) Medical solution hours as Branch needed for Cough for up to 7 days. Indication s: chronic pain codeine-gua 2021-02 No [id number] 5mL Take 5 mL Univers ifenesin 0-22 10-30 by mouth ity of 10-100 mg/5 00:00: 04:59 every 6 [place] mL oral 00 :00 (six) Medical solution hours as Branch needed for Cough for up to 7 days. Indication s: chronic pain codeine-gua 2021-02 No [id number] 5mL Take 5 mL Univers ifenesin 0-22 10-30 by mouth ity of 10-100 mg/5 00:00: 04:59 every 6 [place] mL oral 00 :00 (six) Medical solution hours as Branch needed for Cough for up to 7 days. Indication s: chronic pain codeine-gua 2021-02- No 5224 5mL Take 5 mL Univers ifenesin 0-22 10-30 by mouth ity of 10-100 mg/5 00:00: 00:00 every 6 [place] mL oral 00 :00 (six) Medical solution hours as Branch needed for Cough for up to 7 days. Indication s: chronic pain azithromyci 2021-02- No [id number] 500mg Take 1 Univers n 500 mg 0-22 - tablet by ity o f tablet 00:00: 04:59 mouth in [place] 00 :00 the Medical morning Branch for 3 days. azithromyci 2021-02- No [id number] 500mg Take 1 Univers n 500 mg 0-26 11- tablet by ity o f tablet 00:00: 04:59 mouth in [place] 00 :00 the Medical morning Branch for 3 days. HYDROcodone 2021-02 Yes 1{tbl} 1 tablet, Univers -acetaminop 0-21 Oral, ity of hen (NORCO 18:52: Q6HPRN, [place] 5) 5-325 mg 21 Starting Medi kandis tablet 1 on Sun Branch tablet 11/25/21 at 1352, Until Discontinu ed, Routine, Pain (scale 4-6) FENTanyl PF 2021-02 Yes 50ug 50 mcg, Uni vers (SUBLIMAZE 0-21 Slow IV ity of (PF)) 17:46: Push, [place] injection 31 Q3HPRN, Medical 50 mcg Starting Branch on Sun11/25/21 at 1246, Until Discontinu ed, Routine, break through predniSONE 2021-02- No 40mg 40 mg, Univ ers (DELTASONE) 0-21 10-21 Oral, ity of tablet 40 03:30: 17:41 DAILY, [place] mg 00 :37 First dose Medical on [place] Branch 11/24/21 at 2230, Until Discontinu ed, Routine melatonin 2021-02 Yes 6mg 6 mg, Univers (MELATIN) 0-21 Oral, QHS, ity of tablet 6 mg 02:00: First dose [place] 00 on Leah Medical 11/24/21 Branch at 2100, Until Discontinu ed, Routine flecainide 2021-02 Yes 50mg 50 mg, Unive rs (TAMBOCOR) 0-20 Oral, ity of tablet 50 22:00: DAILY AT [place] mg 00 1700, Medical First dose Branch (after last modificati on) on [place] 11/24/21 at 1700, Until Discontinu ed FENTanyl PF 2021-02 No 25ug 25 mcg, Un jb (SUBLIMAZE 0-20 10-21 Slow IV ity o f (PF)) 16:22: 17:49 Push, [place] injection 59 :31 Q3HPRN, Medical 25 mcg Starting Branch on Sun11/24/21 at 1122, Until Sun11/25/21 at 1249, Routine, break through HYDROcodone 2021-02 No 1{tbl} 1 tablet, Univers -acetaminop 0-20 10-21 Oral, ity of hen (NORCO) 15:14: 17:49 Q6HPRN, [place] 10-325 mg 00 :31 Starting Medica l tablet 1 on [facility] Branch tablet 11/24/21 at 1014, Until Sun11/25/21 at 1249, Routine, Pain (scale 7-10) metoprolol 2021-02 Yes 25mg 25 mg, Unive rs tartrate 0-20 Oral, ity of (LOPRESSOR) 14:00: DAILY, [place] tablet 25 00 First dose Medi kandis mg (after Branch last modificati on) on [facility] 11/24/21 at 0900, Until Discontinu ed, Routine enoxaparin 2021-02 Yes 40mg 40 mg, Unive rs (LOVENOX) 0-20 Subcutaneo ity of injection 14:00: us, DAILY, [place] 40 mg 00 First dose Medical on [facility] Branch 11/24/21 at 0900, Until Discontinu ed, Routine pantoprazol 2021-02 Yes 40mg 40 mg, Univ ers e 0-20 Oral, ity of (PROTONIX) 14:00: DAILY, [place] EC tablet 00 First dose Medi akndis 40 mg on [facility] Branch 11/24/21 at 0900, Until Discontinu ed, Routine aspirin 2021-02 Yes 81mg 81 mg, Univers chewable 0-20 Oral, ity of tablet 81 14:00: DAILY, [place] mg 00 First dose Medical on [facility] Branch 11/24/21 at 0900, Until Discontinu ed, Routine fluticasone 2021-02 Yes 1{puff} 1 Puff, Univers propion-tavia 0-20 Inhalation it y of meteroL 13:00: , Q12H, [place] (ADVAIR) 00 First dose Medic al 250-50 on [facility] Branch mcg/dose 11/24/21 inhalation at 0800, disk 1 Puff Until Discontinu ed, Routine docusate 2021-02 Yes 100mg 100 mg, Unive rs (COLACE) 0-20 Oral, BID, ity o f capsule 100 13:00: First dose [place] mg 00 on [facility] Medical 11/24/21 Branch at 0800, Until Discontinu ed, Routine cyclobenzap 2021-02 Yes 10mg 10 mg, Univ ers rine 0-20 Oral, ity of (FLEXERIL) 10:40: TIDPRN, [place] tablet 10 31 Starting Medica l mg on [facility] Branch 11/24/21 at 0540, Until Discontinu ed, Routine, Muscle Spasms HYDROmorpho 2021-02- No .5mg 0.5 mg, Un jb ne 0-20 10-20 Slow IV ity of (DILAUDID) 10:15: 09:29 Push, [place] injection 00 :00 ONCE, 1 Medical 0.5 mg dose, On Branch [facility] 11/24/21 at 0515, Routine
Use approved by (Faculty): ADC PROVIDER HYDROcodone 2021-02- No 1{tbl} 1 tablet, Univers -acetaminop 0-20 10-20 Oral, ity of hen (NORCO 08:49: 15:21 Q8HPRN, [place] 5) 5-325 mg 58 :30 Starting Medi kandis tablet 1 on [facility] tablet 11/24/21 at 0349, Until [place] 11/24/21 at 1021, Routine, Pain (scale 4-6) guaiFENesin 2021-02 Yes 200mg 200 mg, Un jb 100 mg/5 mL 0-20 Oral, ity of solution 08:27: Q4HPRN, [place] 200 mg 53 Starting Medical on [facility] Branch 11/24/21 at 0327, Until Discontinu ed, Routine, Cough ondansetron 2021-02 Yes 4mg 4 mg, Slow Univers (ZOFRAN 0-20 IV Push, ity of (PF)) 08:26: Q6HPRN, [place] injection 4 58 Starting Medi kandis mg on [facility] Branch 11/24/21 at 0326, Until Discontinu ed, Routine, Nausea and Vomiting (N/V) acetaminoph 2021-02 Yes 650mg 650 mg, Un jb en 0-20 Oral, ity of (TYLENOL) 08:26: Q6HPRN, [place] tablet 650 22 Starting Medic al mg on [facility] Branch 11/24/21 at 0326, Until Discontinu ed, Routine, Pain (scale 1-3) polyethylen 2021-02 Yes 17g 17 g, Unive rs e glycol 0-20 Oral, ity of 3350 powder 08:23: T50LIHM, [place] 17 g 29 Starting Medical on [facility] Branch 11/24/21 at 0323, Until Discontinu ed, Routine, Constipati on ondansetron 2021-02- No 4mg 4 mg, Slow Univers (ZOFRAN 0-08 10-08 IV Push, ity of (PF)) 18:30: 18:31 ONCE, 1 [place] injection 4 00 :00 dose, On Medi kandis mg Sat Branch 11/12/21 at 1330, EILEEN FENTanyl PF 2021-02- No 50ug 50 mcg, Un jb (SUBLIMAZE [...] Medical tablet times Branch daily. HYDROcodone 2021-02- No 4647 1{tbl} Take 1 U nivers -acetaminop 0-08 10-16 tablet by it y of hen 5-325 00:00: 04:59 mouth [place] mg tablet 00 :00 every 4 Medical (four) Branch hours as needed for Pain (scale 4-6) for up to 7 days. Indication s: acute pain HYDROcodone 2021-02- No 4647 1{tbl} Take 1 U nivers -acetaminop 11-12 tablet by it y of hen 5-325 00:00: 00:00 mouth [place] mg tablet 00 :00 every 4 Medical (four) Branch hours as needed for Pain (scale 4-6) for up to 7 days. Indication s: acute pain doxycycline 2021-02- No 100mg 1 capsule Methodi (VIBRAMYCIN 0-05 05-18 ([address] ) 100 MG 00:00: 00:00 total). Hospi ta capsule 00 :00 l doxycycline 2021-02- No 100mg 1 capsule Methodi (VIBRAMYCIN 0-05 02-09 ([address] ) 100 MG 00:00: 00:00 total). Hospi ta capsule 00 :00 l methylpredn 2021- No 125mg 125 mg, U nivers isolone sod 09-14 Intravenou i ty of succ 20:45: 19:46 s, ONCE, 1 [place] (SOLU-MEDRO 00 :00 dose, On Medi kandis L) Wed Branch injection 09/14/21 at 125 mg 1545, 2 mL levalbutero 2021- No 1.25mg 1.25 mg, Univers l (XOPENEX) 09-14 Inhalation i ty of nebulizer 20:45: 19:40 , ONCE [place] solution 00 :00 NOW, 1 Medical 1.25 mg dose, On Branch 09/14/21 at 1545, Routine ipratropium No .5mg 0.5 mg, Un jb (ATROVENT) 09-14 Inhalation it y of 0.02 % 19:45: 19:40 , ONCE, 1 [place] nebulizer 00 :00 dose, On Medica l solution Wed Branch 0.5 mg 09/14/21 at 1445, EILEEN FENTanyl PF 2021- No 25ug 25 mcg, Un jb (SUBLIMAZE 09-14 Slow IV ity o f (PF)) 18:00: 17:59 Push, [place] injection 00 :00 ONCE, 1 Medical 25 mcg dose, On Branch 8/10/22 at 1300, STAT polyethylen 2022-0 Yes [id number] 17g Take 1 Univers e glycol 8-03 Packet by ity of 3350 17 00:00: mouth in [place] gram powder 00 the Medical morning. Branch polyethylen 2022-0 Yes [id number] 17g Take 1 Univers e glycol 8-03 Packet by ity of 3350 17 00:00: mouth in [place] gram powder 00 the Medical morning. Branch polyethylen 2022-0 Yes [id number] 17g Take 1 Univers e glycol 8-03 Packet by ity of 3350 17 00:00: mouth in [place] gram powder 00 the Medical morning. Branch polyethylen 2022-0 Yes [id number] 17g Take 1 Univers e glycol 8-03 Packet by ity of 3350 17 00:00: mouth in [place] gram powder 00 the Medical morning. Branch polyethylen 2022-0 Yes [id number] 17g Take 1 Univers e glycol 8-03 Packet by ity of 3350 17 00:00: mouth in [place] gram powder 00 the Medical morning. Branch polyethylen 2022-0 Yes [id number] 17g Take 1 Univers e glycol 8-03 Packet by ity of 3350 17 00:00: mouth in [place] gram powder 00 the Medical morning. Branch polyethylen 2022-0 Yes [id number] 17g Take 1 Univers e glycol 8-03 Packet by ity of 3350 17 00:00: mouth in [place] gram powder 00 the Medical morning. Branch polyethylen 2022-0 Yes [id number] 17g Take 1 Univers e glycol 8-03 Packet by ity of 3350 17 00:00: mouth in [place] gram powder 00 the Medical morning. Branch polyethylen 2022-0 Yes [id number] 17g Take 1 Univers e glycol 8-03 Packet by ity of 3350 17 00:00: mouth in [place] gram powder 00 the Medical morning. Branch polyethylen 2022-0 Yes [id number] 17g Take 1 Univers e glycol 8-03 Packet by ity of 3350 17 00:00: mouth in [place] gram powder 00 the Medical morning. Branch polyethylen 2022-0 Yes [id number] 17g Take 1 Univers e glycol 8-03 Packet by ity of 3350 17 00:00: mouth in [place] gram powder 00 the Medical morning. Branch polyethylen 2022-0 2021- No [id number] 17g Take 1 Univers e glycol 09-07 Packet by ity o f 3350 17 00:00: 00:00 mouth in [place] gram powder 00 :00 the Medical morning. Branch cholecalcif 2021- No [id number] 1000U Take 1 Univers usha, 09-07 tablet by ity of vitamin D3, 00:00: 04:59 mouth in [place] 25 mcg 00 :00 the Medical (1,000 morning Branch unit) for 5 tablet days. zinc 2021- No [id number] 50mg Take 1 Unive rs sulfate 50 09-07 capsule by it y of mg zinc 00:00: 04:59 mouth in [place] (220 mg) 00 :00 the Medical capsule morning Branch for 5 days. cholecalcif 2021- No [id number] 1000U Take 1 Univers usha, 09-07 tablet by ity of vitamin D3, 00:00: 04:59 mouth [place] 25 mcg 00 :00 the Medical (1,000 morning Branch unit) for 5 tablet days. zinc 2021- No [id number] 50mg Take 1 Unive rs sulfate 50 09-07 capsule by it y of mg zinc 00:00: 04:59 mouth in [place] (220 mg) 00 :00 the Medical capsule morning Branch for 5 days. fluticasone Yes 1{puff} Inhale 1 Univers propion-tavia 8- Puff every it y of meteroL 17:25: 12 [place] 250-50 34 (twelve) Medical mcg/dose hours. Branch inhalation disk flecainide Yes 50mg Take 50 mg U nivers acetate 02 by mouth ity of (FLECAINIDE 17:25: every [place] ORAL) 34 morning. Medical Branch HYDROcodone 0 Yes 1{tbl} Take 1 Un jb -acetaminop 8- tablet by ity of hen (NORCO) 17:25: mouth 3 [place] 5-325 mg 34 (three) Medical tablet times Branch daily. metoprolol 0 Yes 25mg Take 25 mg U nivers tartrate 25 802 by mouth 2 it y of mg tablet 17:25: (two) [place] 34 times Medical daily. Branch gabapentin Yes 400mg Take 400 Un jb 400 mg 8-02 mg by ity of capsule 17:25: mouth 3 [place] [address] (three) Medical times Branch daily. pantoprazol Yes 40mg Take 40 mg Univers e 40 mg EC 8-02 by mouth ity o f tablet 17:25: daily. [place] [address] Medical Branch aspirin 81 0 Yes 81mg Take 81 mg U nivers mg chewable 8-02 by mouth ity of tablet 17:25: daily. [place] [address] Medical Branch melatonin 3 Yes 6mg Take 6 mg U nivers mg tablet 8-02 by mouth ity of 17:25: at [place] [address] bedtime. Medical Branch fluticasone Yes 1{puff} Inhale 1 Univers propion-tavia 8-02 Puff every it y of meteroL 17:25: 12 [place] 250-50 (twelve) Medical mcg/dose hours. Branch inhalation disk flecainide Yes 50mg Take 50 mg U nivers acetate 8-02 by mouth ity of (FLECAINIDE 17:25: every [place] ORAL) morning. Medical Branch HYDROcodone Yes 1{tbl} Take 1 Un jb -acetaminop 8-02 tablet by ity of hen (NORCO) 17:25: mouth 3 [place] 5-325 mg 34 (three) Medical tablet times Branch daily. metoprolol Yes 25mg Take 25 mg U nivers tartrate 25 8-02 by mouth 2 it y of mg tablet 17:25: (two) [place] [address] times Medical daily. Branch gabapentin Yes 400mg Take 400 Un jb 400 mg 8-02 mg by ity of capsule 17:25: mouth 3 [place] 34 (three) Medical times Branch daily. pantoprazol 0 Yes 40mg Take 40 mg Univers e 40 mg EC 8-02 by mouth ity o f tablet 17:25: daily. [place] [address] Medical Branch aspirin 81 0 Yes 81mg Take 81 mg U nivers mg chewable 8-02 by mouth ity of tablet 17:25: daily. [place] [address] Medical Branch melatonin 3 0 Yes 6mg Take 6 mg U nivers mg tablet 8-02 by mouth ity of 17:25: at [place] [address] bedtime. Medical Branch fluticasone Yes 1{puff} Inhale 1 Univers propion-tavia 8-02 Puff every it y of meteroL 17:25: 12 [place] 250-50 34 (twelve) Medical mcg/dose hours. Branch [...] it y of mg tablet 17:25: (two) [place] [address] times Medical daily. Branch gabapentin Yes 400mg Take 400 Un jb 400 mg 8-02 mg by ity of capsule 17:25: mouth 3 [place] 34 (three) Medical times Branch daily. pantoprazol Yes 40mg Take 40 mg Univers e 40 mg EC 8-02 by mouth ity o f tablet 17:25: daily. [place] [address] Medical Branch aspirin 81 0 Yes 81mg Take 81 mg U nivers mg chewable -02 by mouth ity of tablet 17:25: daily. [place] [address] Medical Branch melatonin 3 Yes 6mg Take 6 mg U nivers mg tablet 8-02 by mouth ity of 17:25: at [place] [address] bedtime. Medical Branch fluticasone Yes 1{puff} Inhale 1 Univers propion-tavia 8-02 Puff every it y of meteroL 17:25: 12 [place] 250- 34 (twelve) Medical mcg/dose hours. Branch inhalation disk flecainide Yes 50mg Take 50 mg U nivers acetate 8-02 by mouth ity of (FLECAINIDE 17:25: every [place] ORAL) 34 morning. Medical Branch metoprolol Yes 25mg Take 25 mg U nivers tartrate 25 8-02 by mouth 2 it y of mg tablet 17:25: (two) [place] [address] times Medical daily. Branch gabapentin Yes 400mg Take 400 Un jb 400 mg 8-02 mg by ity of capsule 17:25: mouth 3 [place] [address] (three) Medical times Branch daily. pantoprazol Yes 40mg Take 40 mg Univers e 40 mg EC 8-02 by mouth ity o f tablet 17:25: daily. [place] [address] Medical Branch aspirin 81 Yes 81mg Take 81 mg U nivers mg chewable 8-02 by mouth ity of tablet 17:25: daily. [place] [address] Medical Branch melatonin 3 Yes 6mg Take 6 mg U nivers mg tablet 8-02 by mouth ity of 17:25: at [place] [address] bedtime. Medical Branch phenoL Yes 1{spray 1 [place], Univ ers (SORE 8-02 } Oral, PRN, ity of THROAT 15:55: Starting [place] (PHENOL)) 44 on [facility] 1.4 % spray 09/06/21 at [facility] bottle 1 1055, [place] Until Discontinu ed, Routine, Sore throat docusate 0 Yes [id number] 100mg Take 1 U nivers 100 mg 8-02 capsule by ity of capsule 00:00: mouth in [place] [address] the Medical morning Branch and 1 capsule in the evening. phenoL 1.4 2021- Yes [id number] 1{spray Take 1 Univers % spray 8-02 } [place] by ity of 00:00: mouth as [place] [address] needed for Medical Sore Branch throat. docusate 2021-0 Yes [id number] 100mg Take 1 U nivers 100 mg 8-02 capsule by ity of capsule 00:00: mouth in [place] 00 the Medical morning Branch and 1 capsule in the evening. phenoL 1.4 2021- Yes [id number] 1{spray Take 1 Univers % spray 8-02 } [place] by ity of 00:00: mouth as [place] 00 needed for Medical Sore Branch throat. docusate 2021-0 Yes [id number] 100mg Take 1 U nivers 100 mg 8-02 capsule by ity of capsule 00:00: mouth in [place] [address] the Medical morning Branch and 1 capsule in the evening. phenoL 1.4 2021- Yes [id number] 1{spray Take 1 Univers % spray 8-02 } [place] by ity of 00:00: mouth as [place] 00 needed for Medical Sore Branch throat. docusate 2021-0 Yes [id number] 100mg Take 1 U nivers 100 mg 8-02 capsule by ity of capsule 00:00: mouth in [place] 00 the Medical morning Branch and 1 capsule in the evening. phenoL 1.4 2021-0 Yes [id number] 1{spray Take 1 Univers % spray 8-02 } [place] by ity of 00:00: mouth as [place] 00 needed for Medical Sore Branch throat. docusate 2021-0 Yes [id number] 100mg Take 1 U nivers 100 mg 8-02 capsule by ity of capsule 00:00: mouth in [place] 00 the Medical morning Branch and 1 capsule in the evening. phenoL 1.4 2021-0 Yes [id number] 1{spray Take 1 Univers % spray 8-02 } [place] by ity of 00:00: mouth as [place] 00 needed for Medical Sore Branch throat. docusate 2021-0 Yes [id number] 100mg Take 1 U nivers 100 mg 8-02 capsule by ity of capsule 00:00: mouth in [place] 00 the Medical morning Branch and 1 capsule in the evening. phenoL 1.4 2021-0 Yes [id number] 1{spray Take 1 Univers % spray 8-02 } [place] by ity of 00:00: mouth as [place] 00 needed for Medical Sore Branch throat. docusate 2021-0 Yes [id number] 100mg Take 1 U nivers 100 mg 8-02 capsule by ity of capsule 00:00: mouth in [place] 00 the Medical morning Branch and 1 capsule in the evening. phenoL 1.4 2021-0 Yes [id number] 1{spray Take 1 Univers % spray 8-02 } [place] by ity of 00:00: mouth as [place] 00 needed for Medical Sore Branch throat. docusate 2021-0 Yes [id number] 100mg Take 1 U nivers 100 mg 8-02 capsule by ity of capsule 00:00: mouth in [place] 00 the Medical morning Branch and 1 capsule in the evening. phenoL 1.4 2021-0 Yes [id number] 1{spray Take 1 Univers % spray 8-02 } [place] by ity of 00:00: mouth as [place] 00 needed for Medical Sore Branch throat. docusate 2021-0 Yes [id number] 100mg Take 1 U nivers 100 mg 8-02 capsule by ity of capsule 00:00: mouth in [place] 00 the Medical morning Branch and 1 capsule in the evening. phenoL 1.4 2021-0 Yes [id number] 1{spray Take 1 Univers % spray 8-02 } [place] by ity of 00:00: mouth as [place] 00 needed for Medical Sore Branch throat. docusate 2-0 Yes [id number] 100mg Take 1 U nivers 100 mg 8-02 capsule by ity of capsule 00:00: mouth in [place] 00 the Medical morning Branch and 1 capsule in the evening. phenoL 1.4 2021-0 Yes [id number] 1{spray Take 1 Univers % spray 8-02 } [place] by ity of 00:00: mouth as [place] 00 needed for Medical Sore Branch throat. docusate 2021-0 Yes [id number] 100mg Take 1 U nivers 100 mg 8-02 capsule by ity of capsule 00:00: mouth in [place] 00 the Medical morning Branch and 1 capsule in the evening. phenoL 1.4 2021-0 Yes [id number] 1{spray Take 1 Univers % spray 8-02 } [place] by ity of 00:00: mouth as [place] 00 needed for Medical Sore Branch throat. docusate 2021-0 Yes [id number] 100mg Take 1 U nivers 100 mg 8-02 capsule by ity of capsule 00:00: mouth in [place] 00 the Medical morning Branch and 1 capsule in the evening. docusate 2021-0 Yes [id number] 100mg Take 1 U nivers 100 mg 8-02 capsule by ity of capsule 00:00: mouth in [place] 00 the Medical morning Branch and 1 capsule in the evening. docusate 2021-0 Yes [id number] 100mg Take 1 U nivers 100 mg 8-02 capsule by ity of capsule 00:00: mouth in [place] 00 the Medical morning Branch and 1 capsule in the evening. docusate 2021-0 Yes [id number] 100mg Take 1 U nivers 100 mg 8-02 capsule by ity of capsule 00:00: mouth in [place] 00 the Medical morning Branch and 1 capsule in the evening. docusate 2021-0 Yes [id number] 100mg Take 1 U nivers 100 mg 8-02 capsule by ity of capsule 00:00: mouth in [place] 00 the Medical morning Branch and 1 capsule in the evening. docusate 2021-0 Yes [id number] 100mg Take 1 U nivers 100 mg 8-02 capsule by ity of capsule 00:00: mouth in [place] 00 the Medical morning Branch and 1 capsule in the evening. docusate 2021-0 Yes [id number] 100mg Take 1 U nivers 100 mg 8-02 capsule by ity of capsule 00:00: mouth in [place] 00 the Medical morning Branch and 1 capsule in the evening. docusate 2021-0 Yes [id number] 100mg Take 1 U nivers 100 mg 8-02 capsule by ity of capsule 00:00: mouth in [place] 00 the Medical morning Branch and 1 capsule in the evening. docusate 2021-0 Yes [id number] 100mg Take 1 U nivers 100 mg 8-02 capsule by ity of capsule 00:00: mouth in [place] 00 the Medical morning Branch and 1 capsule in the evening. docusate 2021-0 Yes [id number] 100mg Take 1 U nivers 100 mg 8-02 capsule by ity of capsule 00:00: mouth in [place] 00 the Medical morning Branch and 1 capsule in the evening. phenoL 1.4 2021- No [id number] 1{spray Take 1 Univers % spray 09-06 } [place] by ity of 00:00: 00:00 mouth as [place] 00 :00 needed for Medical Sore Branch throat. ascorbic 0 2021- No 500mg Take 1 Univers acid, 09-06 tablet by ity of vitamin C, 00:00: 04:59 mouth in [place] 500 mg 00 :00 the Medical tablet morning Branch and 1 tablet in the evening. Do all this for 5 days. ascorbic 2021-0 2021- No [id number] 500mg Take 1 [facility] acid, 09-06 tablet by ity of vitamin C, 00:00: 04:59 mouth in [place] 500 mg 00 :00 the Medical tablet morning Branch and 1 tablet in the evening. Do all this for 5 days. dexAMETHaso 0 2021- No [id number] 6mg Take 1 Univers ne 6 mg 09-06 tablet by ity of tablet 00:00: 00:00 mouth in [place] 00 :00 the Medical morning Branch for [...] 01:00: First dose [place] mg 00 on [facility] 09/04/21 at Branch 2000, Until Discontinu ed, Routine polyethylen Yes 17g 17 g, Unive rs e glycol 09-04 Oral, ity of 3350 powder 23:30: DAILY, [place] 17 g 00 First dose Medical on [facility] 09/04/21 at 1830, Until Discontinu ed, Routine HYDROcodone Yes 1{tbl} 1 tablet, Univers -acetaminop 09-04 Oral, ity of hen (NORCO) 21:54: Q6HPRN, [place] 10-325 mg 05 Starting Medica l tablet 1 on [facility] tablet 09/04/21 at 1654, Until Discontinu ed, Routine, Pain (scale 4-6) HYDROmorpho 2021- No .5mg 0.5 mg, Un jb ne 09-04 0802 Slow IV ity of (DILAUDID) 21:53: 21:52 Push, [place] injection 53 :53 Q4HPRN, Medical 0.5 mg Starting Branch on [place] 09/04/21 at 1653, Until Sun09/06/21 at 1652, Routine, Pain (scale 7-10)
U se approved by (Faculty): ADC PROVIDER ondansetron 2022- No 4mg 4 mg, Slow Univers (ZOFRAN [...] [place] mg 00 First dose Medical on [facility] 09/04/21 at 0930, Until Discontinu ed, Routine HYDROmorpho 2021- No 1mg 1 mg, Slow Univers ne 09-04 IV Push, ity of (DILAUDID) 11:45: 10:54 ONCE, 1 [place] injection 1 00 :00 dose, On Medi kandis mg [facility] 09/04/21 at 0645, Routine
Use approved by (Faculty): ADC PROVIDER FENTanyl PF No 25ug 25 mcg, Un jb (SUBLIMAZE 09-03 Slow IV ity o f (PF)) 20:45: 19:40 Push, [place] injection 00 :00 ONCE, 1 Medical 25 mcg dose, On Branch [facility] 09/03/21 at 1545, Routine enoxaparin Yes 40mg 40 mg, Unive rs (LOVENOX) 09-03 Subcutaneo ity of injection 20:15: us, Q24H, [place] 40 mg 00 First dose Medical on [facility] 09/03/21 at 1515, Until Discontinu ed, Routine [...]
Durat ion of therapy: 72 hours HYDROmorpho 2021-0 2021- No .5mg 0.5 mg, Un jb ne 09-03 Slow IV ity of (DILAUDID) 03:45: 03:11 Push, [place] injection 00 :00 ONCE, 1 Medical 0.5 mg dose, On Branch Sun09/02/21 at 2245, Routine
Use approved by (Faculty): ADC PROVIDER HYDROcodone 2021- No 1{tbl} 1 tablet, Univers -acetaminop 09-02 Oral, ity of hen (NORCO) 19:34: 21:54 Q6HPRN, [place] 10-325 mg 44 :16 Starting Medica l tablet 1 on Sun Branch tablet 09/02/21 at 1434, Until 09/04/21 at 1654, Routine, Pain (scale 7-10) zinc Yes 50mg 50 mg, Univers sulfate 09-02 Oral, ity of (ORAZINC) 14:00: DAILY, [place] capsule 50 00 First dose Med ical mg on Sun Branch 09/02/21 at 0900, Until Discontinu ed, Routine cholecalcif Yes 1000U 1,000 [facility] ers usha 09-02 Units, ity of (vitamin 14:00: Oral, [place] D3) tablet 00 DAILY, Medical 1,000 Units First dose Br anch on Sun09/02/21 at 0900, Until Discontinu ed, Routine dexamethaso Yes 6mg 6 mg, IV Un jb ne sod phos 09-02 Push, ity of PF 14:00: DAILY, [place] injection 6 00 First dose Me dical mg on Sun Branch 09/02/21 at 0900, Until Discontinu ed, 1 mL pantoprazol Yes 40mg 40 mg, Univ ers e 09-02 Oral, ity of (PROTONIX) 14:00: DAILY, [place] EC tablet 00 First dose Medi kandis 40 mg on Sun Branch 09/02/21 at 0900, Until Discontinu ed, Routine aspirin Yes 81mg 81 mg, Univers chewable 09-02 Oral, ity of tablet 81 14:00: DAILY, [place] mg 00 First dose Medical on Sun Branch 09/02/21 at 0900, Until Discontinu ed, Routine ascorbic 2021-0 Yes 500mg 500 mg, Unive rs acid 09-02 Oral, BID, ity of (vitamin C) 13:00: First dose [place] (VITAMIN C) 00 on Sun Medica l tablet 500 09/02/21 at [facility] mg 0800, Until Discontinu ed, Routine metoprolol 0 Yes 25mg 25 mg, Unive rs tartrate 09-02 Oral, BID, ity o f (LOPRESSOR) 13:00: First dose [place] tablet 25 00 on Sun Medical mg 09/02/21 at Branch 0800, Until Discontinu ed, Routine fluticasone 0 Yes 1{puff} 1 Puff, [facility] propion-tavia 09-02 Inhalation it y of meteroL 06:15: , Q12H, [place] (ADVAIR) 00 First dose Medic al 250-50 (after Branch mcg/dose last inhalation modificati disk 1 Puff on) on Sun09/02/21 at 0115, Until Discontinu ed, Routine melatonin 0 Yes 6mg 6 mg, Univers (MELATIN) 09-02 [...] 0050, Until Discontinu ed, Routine, Cough HYDROcodone 2021-0 202- No 1{tbl} 1 tablet, Univers -acetaminop 09-02 07-30 Oral, ity of hen (NORCO 05:50: 19:30 Q6HPRN, Lj as 5) 5-325 mg 01 :28 Starting Medi kandis tablet 1 on Sun Branch tablet 09/02/21 at 0050, Until 09/03/21 at 1430, Routine, Pain (scale 4-6) acetaminoph 2021-0 Yes 650mg 650 mg, Un jb en 09-02 Oral, ity of (TYLENOL) 05:49: Q6HPRN, [place] tablet 650 58 Starting Medic al mg [...] 09/01/21 at 2145, Routine iopamidol 2021- No [id number] 70mL 70 mL, Univers (ISOVUE 09-02 Intravenou ity o f 370-500 mL) 01:25: 01:24 s, ONCE, 1 [place] injection 00 :00 dose, On Medica l 70 mL Leah Branch 09/01/21 at 2045, Routine levalbutero 2021- No 1.25mg 1.25 mg, Univers l (XOPENEX) 09-02 Inhalation i ty of nebulizer 01:00: 00:06 , ONCE, 1 [place] solution 00 :00 dose, On Medical 1.25 mg [facility] Branch 09/01/21 at 2000, Routine ipratropium 2021- No .5mg 0.5 mg, Un jb (ATROVENT) 09-02 Inhalation it y of 0.02 % 01:00: 00:06 , ONCE, 1 [place] nebulizer 00 :00 dose, On Medica l solution [facility] Branch 0.5 mg 09/01/21 at 2000, EILEEN levalbutero 2021- No 1.25mg 1.25 mg, Univers l (XOPENEX) 09-02 Inhalation i ty of nebulizer 00:30: 23:31 , ONCE, 1 [place] solution 00 :00 dose, On Medical 1.25 mg [facility] Branch 09/01/21 at 1930, Routine ipratropium 2021- No .5mg 0.5 mg, Un jb (ATROVENT) 09-02 Inhalation it y of 0.02 % 00:30: 23:31 , ONCE, 1 [place] nebulizer 00 :00 dose, On Medica l solution Leah Branch 0.5 mg 09/01/21 at 1930, EILEEN HYDROcodone 0 2021- No 1{tbl} 1 tablet, Univers -acetaminop 09-02 Oral, ity of hen (NORCO 00:30: 23:44 ONCE, 1 [place]j as 5) 5-325 mg 00 :00 dose, On Medi kandis tablet 1 Leah Branch tablet 09/01/21 at 1930, EILEEN dexamethaso 2021- No 6mg 6 mg, Slow Univers ne sod phos 09-01 IV Push, ity of PF 23:30: 23:44 ONCE, 1 [place] injection 6 00 :00 dose, On Medi kandis mg Leah Branch 09/01/21 at 1830, 1 mL gabapentin Yes 400mg Q.[id number] Take 400 Methodi (NEURONTIN) 5-13 [id number] mg by s t 400 mg 13:46: 3D mouth in Hospita capsule 55 the l morning and 400 mg at noon and 400 mg before bedtime. HYDROcodone Yes 08913 1{tbl} Q.[id number] Take 1 Methodi -acetaminop 5-[id number] hen (NORCO) 13:46: 3D mouth in Ho spita 5-325 mg 55 the l per tablet morning and 1 tablet at noon and 1 tablet before bedtime.ac [place] pain. fluticasone Yes 1{puff} Q.5D Inhale 1 Methodi propion-tavia 5-[address] meteroL 13:46: (two) Hospita (ADVAIR/ 55 times a l WIXELA day. INHUB) 250-50 mcg/dose DISKUS aspirin 0 Yes 81mg QD Take 81 mg Meth [...] l ipratropium 2021- No Combivent Methodi -albuteroL -11 07-[address] (Combivent 08:50: 00:00 20 mcg-100 [...] Q12H every 12 Me thodi bromide 400 -11 07-10 (twelve) st mcg/actuati 08:48: 00:00 hours. Hos [place] on aerosol 00 :00 l powdr breath activated fluticasone 2021- No 1{puff} Inhale 1 Methodi furoate-laura -11 07-[address] anteroL 08:47: 00:00 Hospita (Breo 09 :00 l Ellipta) 200-25 mcg/dose blister with device powder for inhalation montelukast 2021- No montelukas Methodi (SINGULAIR) 04-14-[address] 10 mg 08:46: 00:00 tablet Hospita tablet 38 :00 Take 1 l tablet every day by oral route. predniSONE 2021- No 20mg QD Take 20 mg Methodi (DELTASONE) 04-14-[address] 10 mg 08:46: 00:00 daily. For Hospi ta tablet 14 :00 5 days l ending on 01/19/2021 tiotropium 2021- No Spiriva Met hodi bromide 2.5 -11 07-[address] mcg/actuati 08:46: 00:00 2.5 Hospi ta on mist 01 :00 mcg/actuat l ion solution for inhalation Inhale 2 puffs every day by inhalation route. umeclidiniu 2021- No 1{puff} Inhale 1 Methodi m (Incruse 3-11 07-[address] Ellipta) 08:45: 00:00 Hospita 62.5 54 :00 l mcg/actuati on blister with device moxifloxaci 2021- No moxifloxac Methodi n (AVELOX) 3-10 -[address] 400 mg 08:45: 00:00 tablet Hospita tablet 47 :00 Take 1 l tablet every day by oral route. levoFLOXaci 2021- No 750mg QD Take 750 Methodi n 3-10 03-[address] (LEVAQUIN) 08:45: 00:00 mouth Hospi ta 750 MG 40 :00 daily. Tid l tablet for 5 days, the 2 tabs daily for 5 days, then 1 tab daily for 5 daily HYDROcodone 2021- No 1{capsu 1 capsule. Methodi bitartrate 04-14-10 le} st (Zohydro 08:42: 00:00 Hospita ER) 10 mg 10 :00 l capsule, oral only, ER 12hr codeine-[place] 2021- [place] [address] 5mL Q.[id number] Take 5 mL Methodi ifenesin 04-14 [id number] mouth [address] (GUAIFENESI 08:41: 00:00 3D (three) Ho spita N AC) 34 :00 times a l 10-100 mg/5 day as mL liquid needed for cough .acute pain. azithromyci 2021- No azithromyc Methodi n 04-[address] (ZITHROMAX) 08:41: 00:00 tablet Hos panchito 250 MG 23 :00 l tablet apixaban 2021- No Eliquis 5 Met hodi (Eliquis) 5 - 03-[address] mg tablet 08:41: 00:00 Hospita 13 :00 l calcium 2022- No [id number] 1{tbl} Q.5D Take 1 M ethodi carbonate-v 04-14-[address] itamin D3 00:00: 05:59 mouth 2 Hosp nuha 500 mg-200 00 :00 (two) l unit per times a tablet day with meals. calcium 2022- No [id number] 1{tbl} Q.5D Take 1 M ethodi carbonate-v 04-14-[address] itamin D3 00:00: 05:59 mouth 2 Hosp nuha 500 mg-200 00 :00 (two) l unit per times a tablet day with meals. metoprolol 2022-0 Yes 25mg Take 25 mg U nivers tartrate 25 2-10 by mouth 2 it y of mg tablet 03:15: (two) [place] [address] times Medical daily. Branch gabapentin 2022-0 Yes 400mg Take 400 Un jb 400 mg 2-10 mg by ity of capsule 03:15: mouth 3 [place] 04 (three) Medical times [place] daily. pantoprazol 2022-0 Yes 40mg Take 40 mg Univers e 2-10 by mouth ity of (PROTONIX) 03:15: daily. [place] 40 mg EC 04 Medical tablet Branch aspirin 81 2-0 Yes 81mg Take 81 mg U nivers mg chewable 2-10 by mouth ity of tablet 03:15: daily. [place] [address] Medical Branch melatonin 3 2021-0 Yes 6mg Take 6 mg U nivers mg tablet 2-10 by mouth ity of 03:15: at [place] [address] bedtime. Medical Branch metoprolol 2-0 Yes 25mg Take 25 mg U nivers tartrate 25 2-10 by mouth 2 it y of mg tablet 03:15: (two) [place] [address] times Medical daily. Branch gabapentin 2-0 Yes 400mg Take 400 Un jb 400 mg 2-10 mg by ity of capsule 03:15: mouth 3 [place] [address] (three) Medical times [place] daily. pantoprazol 2-0 Yes 40mg Take 40 mg Univers e 2-10 by mouth ity of (PROTONIX) 03:15: daily. [place] 40 mg EC 04 Medical tablet Branch aspirin 81 2-0 Yes 81mg Take 81 mg U nivers mg chewable 2-10 by mouth ity of tablet 03:15: daily. [place] [address] Medical Branch melatonin 3 2-0 Yes 6mg Take 6 mg U nivers mg tablet 2-10 by mouth ity of 03:15: at [place] [address] bedtime. Medical Branch metoprolol 2022-0 Yes 25mg Take 25 mg U nivers tartrate 25 2-10 by mouth 2 it y of mg tablet 03:15: (two) [place] [address] times Medical daily. Branch gabapentin 2022-0 Yes 400mg Take 400 Un jb 400 mg 2-10 mg by ity of capsule 03:15: mouth 3 [place] (three) Medical times [place] daily. pantoprazol 2022-0 Yes 40mg Take 40 mg Univers e 2-10 by mouth ity of (PROTONIX) 03:15: daily. [place] 40 mg EC 04 Medical tablet Branch aspirin 81 2021-0 Yes 81mg Take 81 mg U nivers mg chewable 2-10 by mouth ity of tablet 03:15: daily. [place] Medical Branch melatonin 3 2021-0 Yes 6mg Take 6 mg U nivers mg tablet 2-10 by mouth ity of 03:15: at [place] [address] bedtime. Medical Branch metoprolol 2021-0 Yes 25mg Take 25 mg U nivers tartrate 25 2-10 by mouth 2 it y of mg tablet 03:15: (two) [place] times Medical daily. Branch gabapentin 2021-0 Yes 400mg Take 400 Un jb 400 mg 2-10 mg by ity of capsule 03:15: mouth 3 [place] [address] (three) Medical times [place] daily. pantoprazol 2021-0 Yes 40mg Take 40 mg Univers e 2-10 by mouth ity of (PROTONIX) 03:15: daily. [place] 40 mg EC 04 Medical tablet Branch aspirin 81 2021-0 Yes 81mg Take 81 mg U nivers mg chewable 2-10 by mouth ity of tablet 03:15: daily. [place] [address] Medical Branch melatonin 3 2021-0 Yes 6mg Take 6 mg U nivers mg tablet 2-10 by mouth ity of 03:15: at [place] [address] bedtime. Medical Branch metoprolol 2021-0 Yes 25mg Take 25 mg U nivers tartrate 25 2-10 by mouth 2 it y of mg tablet 03:15: (two) [place] [address] times Medical daily. Branch gabapentin 2021-0 Yes 400mg Take 400 Un jb 400 mg 2-10 mg by ity of capsule 03:15: mouth 3 [place] (three) Medical times [place] daily. pantoprazol 2021-0 Yes 40mg Take 40 mg Univers e 2-10 by mouth ity of (PROTONIX) 03:15: daily. [place] 40 mg EC 04 Medical tablet Branch aspirin 81 2021-0 Yes 81mg Take 81 mg U nivers mg chewable 2-10 by mouth ity of tablet 03:15: daily. [place] Medical Branch melatonin 3 2021-0 Yes 6mg Take 6 mg U nivers mg tablet 2-10 by mouth ity of 03:15: at [place] [address] bedtime. Medical Branch metoprolol 2021-0 Yes 25mg Take 25 mg U nivers tartrate 25 2-10 by mouth 2 it y of mg tablet 03:15: (two) [place] 04 times Medical daily. Branch gabapentin 2021-0 Yes 400mg Take 400 Un jb 400 mg 2-10 mg by ity of capsule 03:15: mouth 3 [place] 04 (three) Medical times Branch daily. pantoprazol 2021-0 Yes 40mg Take 40 mg Univers e 2-10 by mouth ity of (PROTONIX) 03:15: daily. [place] 40 mg EC 04 Medical tablet Branch aspirin 81 2021-0 Yes 81mg Take 81 mg U nivers mg chewable 2-10 by mouth ity of tablet 03:15: daily. [place] [address] Medical Branch melatonin 3 2021-0 Yes 6mg Take 6 mg U nivers mg tablet 2-10 by mouth ity of 03:15: at [place] [address] bedtime. Medical Branch metoprolol 2021-0 Yes 25mg Take 25 mg U nivers tartrate 25 2-10 by mouth 2 it y of mg tablet 03:15: (two) [place] 04 times Medical daily. Branch gabapentin 2021-0 Yes 400mg Take 400 Un jb 400 mg 2-10 mg by ity of capsule 03:15: mouth 3 [place] [address] (three) Medical times Branch daily. pantoprazol 2021-0 Yes 40mg Take 40 mg Univers e 2-10 by mouth ity of (PROTONIX) 03:15: daily. [place] 40 mg EC 04 Medical tablet Branch aspirin 81 2021-0 Yes 81mg Take 81 mg U nivers mg chewable 2-10 by mouth ity of tablet 03:15: daily. [place] [address] Medical Branch melatonin 3 2021-0 Yes 6mg Take 6 mg U nivers mg tablet 2-10 by mouth ity of 03:15: at [place] [address] bedtime. Medical Branch fluticasone 0 Yes 1{puff} Inhale 1 Univers propion-tavia 2-08 Puff every it y of meteroL 15:50: 12 [place] (ADVAIR 10 (twelve) Medical DISKUS) hours. Branch 250-50 mcg/dose inhalation disk flecainide 0 Yes Take by Univ ers acetate 2-08 mouth 2 ity of [...] [place] 10 times Medical daily. Branch gabapentin 0 Yes 400mg Take 400 Un jb 400 mg 2-08 mg by ity of capsule 15:50: mouth 3 [place] 10 (three) Medical times Branch daily. pantoprazol 0 Yes 40mg Take 40 mg Univers e 2-08 by mouth ity of (PROTONIX) 15:50: daily. [place] 40 mg EC 10 Medical tablet Branch aspirin 81 0 Yes 81mg Take 81 mg U nivers mg chewable 2-08 by mouth ity of tablet 15:50: daily. [place] 10 Medical Branch melatonin 3 0 Yes 6mg Take 6 mg U nivers mg tablet 2-08 by mouth ity of 15:50: at [place] 10 bedtime. Medical Branch fluticasone Yes 1{puff} Inhale 1 Univers propion-tavia 2-08 Puff every it y of meteroL 15:50: 12 [place] (ADVAIR 10 (twelve) Medical DISKUS) hours. Branch 250-50 mcg/dose inhalation disk flecainide Yes Take by [facility] ers acetate 2-08 mouth 2 ity of [...] inhalation disk flecainide 2021-0 Yes Take by Univ ers acetate 2-08 mouth 2 ity of [...] mcg/dose inhalation disk flecainide Yes Take by [facility] ers acetate 2-08 mouth 2 ity of [...] inhalation disk flecainide 0 Yes Take by [facility] ers acetate 2-08 mouth 2 ity of [...] inhalation disk flecainide 0 Yes Take by [facility] ers acetate 2-08 mouth 2 ity of [...] inhalation disk flecainide 2021-0 Yes Take by Univ ers acetate 2-08 mouth 2 ity of [...] inhalation disk flecainide 2021-0 Yes Take by Univ ers acetate 2-08 mouth 2 ity of [...] inhalation disk flecainide 2021-0 Yes Take by Univ ers acetate 2-08 mouth 2 ity of (FLECAINIDE 15:50: (two) [place] ORAL) 10 times Medical daily. Branch HYDROcodone 2021-0 Yes 1{tbl} Take 1 Un jb -acetaminop 2-08 tablet by ity of hen (NORCO) 15:50: mouth 3 Lj as 5-325 mg 10 (three) Medical tablet times Branch daily. simethicone 2021-0 Yes 120mg 125 mg Uni vers (MYLICON) 2-08 (rounded ity of chewable 03:16: from 120 [place] tablet 125 38 mg), Oral, Med ical mg TIDPRN, Branch Starting on Sun03/14/21 at 2116, Until Discontinu ed, Routine, Gas loperamide 2021-0 Yes [id number] 2mg Take 1 U nivers 2 mg 2-08 capsule by ity of capsule 00:00: mouth [place] 00 every 4 Medical (four) Branch hours as needed for Diarrhea. simethicone 2021-0 Yes [id number] 125mg Take 1 Univers 125 mg 2-08 tablet by ity of chewable 00:00: mouth 3 [place] tablet 00 (three) Medical times Branch daily as needed for Gas. loperamide 2021-0 Yes [id number] 2mg Take 1 U nivers 2 mg 2-08 capsule by ity of capsule 00:00: mouth [place] 00 every 4 Medical (four) Branch hours as needed for Diarrhea. simethicone 2-0 Yes [id number] 125mg Take 1 Univers 125 mg 2-08 tablet by ity of chewable 00:00: mouth 3 [place] tablet 00 (three) Medical times Branch daily as needed for Gas. loperamide 2021-0 Yes [id number] 2mg Take 1 U nivers 2 mg 2-08 capsule by ity of capsule 00:00: mouth [place] 00 every 4 Medical (four) Branch hours as needed for Diarrhea. simethicone 2022-0 Yes [id number] 125mg Take 1 Univers 125 mg 2-08 tablet by ity of chewable 00:00: mouth 3 [place] tablet 00 (three) Medical times Branch daily as needed for Gas. loperamide 2022-0 Yes [id number] 2mg Take 1 U nivers 2 mg 2-08 capsule by ity of capsule 00:00: mouth [place] 00 every 4 Medical (four) Branch hours as needed for Diarrhea. simethicone 2022-0 Yes [id number] 125mg Take 1 Univers 125 mg 2-08 tablet by ity of chewable 00:00: mouth 3 [place] tablet 00 (three) Medical times Branch daily as needed for Gas. loperamide 2-0 Yes [id number] 2mg Take 1 U nivers 2 mg 2-08 capsule by ity of capsule 00:00: mouth [place] 00 every 4 Medical (four) Branch hours as needed for Diarrhea. simethicone 2022-0 Yes [id number] 125mg Take 1 Univers 125 mg 2-08 tablet by ity of chewable 00:00: mouth 3 [place] tablet 00 (three) Medical times Branch daily as needed for Gas. loperamide 2-0 Yes [id number] 2mg Take 1 U nivers 2 mg 2-08 capsule by ity of capsule 00:00: mouth [place] 00 every 4 Medical (four) Branch hours as needed for Diarrhea. simethicone 2022-0 Yes [id number] 125mg Take 1 Univers 125 mg 2-08 tablet by ity of chewable 00:00: mouth 3 [place] tablet 00 (three) Medical times Branch daily as needed for Gas. loperamide 2021-0 Yes [id number] 2mg Take 1 U nivers 2 mg 2-08 capsule by ity of capsule 00:00: mouth [place] 00 every 4 Medical (four) Branch hours as needed for Diarrhea. simethicone 2-0 Yes [id number] 125mg Take 1 Univers 125 mg 2-08 tablet by ity of chewable 00:00: mouth 3 [place] tablet 00 (three) Medical times Branch daily as needed for Gas. loperamide 2-0 Yes [id number] 2mg Take 1 U nivers 2 mg 2-08 capsule by ity of capsule 00:00: mouth [place] 00 every 4 Medical (four) Branch hours as needed for Diarrhea. simethicone 2022-0 Yes [id number] 125mg Take 1 Univers 125 mg 2-08 tablet by ity of chewable 00:00: mouth 3 [place] tablet 00 (three) Medical times Branch daily as needed for Gas. loperamide 2022-0 2022- No [id number] 2mg Take 1 Univers 2 mg 2-08 07-29 capsule by ity of capsule 00:00: 00:00 mouth [place] 00 :00 every 4 Medical (four) Branch hours as needed for Diarrhea. simethicone 2022-0 2022- No [id number] 125mg Take 1 Univers 125 mg 2-08 07-29 tablet by ity of chewable 00:00: 00:00 mouth 3 [place] tablet 00 :00 (three) Medical times Branch daily as needed for Gas. lactobacill 2021-2021- No [id number] .5mg Take 1 Univers us 03-15-11 tablet by ity of acidophilus 00:00: 05:59 mouth 2 [place] 00 :00 (two) Medical times Branch daily for 30 days. lactobacill 2021-2021- No [id number] .5mg Take 1 Univers us 03-15-11 tablet by ity of acidophilus 00:00: 05:59 mouth 2 [place] 00 :00 (two) Medical times Branch daily for 30 days. lactobacill 2021- No [id number] .5mg Take 1 Univers us 03-15-11 tablet by ity of acidophilus 00:00: 05:59 mouth 2 [place] 00 :00 (two) Medical times Branch daily for 30 days. lactobacill 2021- No [id number] .5mg Take 1 Univers us 03-15-11 tablet by ity of acidophilus 00:00: 05:59 mouth 2 [place] 00 :00 (two) Medical times Branch daily for 30 days. predniSONE 2021- No [id number] Take 4 Univers 10 mg 2-24 tablets by ity of tablet 00:00: 05:59 mouth [place] 00 :00 daily for Medical 3 days, Branch THEN 3 tablets daily for 3 days, THEN 2 tablets daily for 3 days, THEN 1 tablet daily for 3 days, THEN 0.5 tablets daily for 3 days. predniSONE 2021- No [id number] Take 4 Univers 10 mg 2-24 tablets by ity of tablet 00:00: 05:59 mouth [place] 00 :00 daily for Medical 3 days, Branch THEN 3 tablets daily for 3 days, THEN 2 tablets daily for 3 days, THEN 1 tablet daily for 3 days, THEN 0.5 tablets daily for 3 days. predniSONE 2021-2021- No [id number] Take 4 Univers 10 mg 2-09 06-24 tablets by ity of tablet 00:00: 05:59 mouth [place] 00 :00 daily for Medical 3 days, Branch THEN 3 tablets daily for 3 days, THEN 2 tablets daily for 3 days, THEN 1 tablet daily for 3 days, THEN 0.5 tablets daily for 3 days. levoFLOXaci 2021- No [id number] 750mg Take 1 Univers n 750 mg 03-15 tablet by ity o f tablet 00:00: 05:59 mouth [place] 00 :00 every 24 Medical ( Branch ur) hours for 5 days. levoFLOXaci 2021- No [id number] 750mg Take 1 Univers n 750 mg 03-15 tablet by ity o f tablet 00:00: 05:59 mouth [place] 00 :00 every 24 Medical ( Branch ur) hours for 5 days. KCL 2021- [...] lactobacill Yes .5mg 0.5 mg, Uni vers 03-14 Oral, BID, ity of acidophilus 02:00: First dose [place] tablet 0.5 00 on [place] [facility] mg 03/13/21 at Branch 2000, Until [...] melatonin Yes 6mg 6 mg, Univers (MELATIN) 204 Oral, QHS, ity of tablet 6 mg 03:00: First dose [place] 00 on [facility] Medical 03/10/21 at Branch 2100, Until Discontinu ed, Routine fluticasone Yes 1{puff} 1 Puff, [facility] propion-tavia 04 Inhalation it y of meteroL 02:00: , Q12H, [place] (ADVAIR) 00 First dose Medic al 250-50 on [facility] mcg/dose 03/10/21 at inhalation 2000, disk 1 Puff Until Discontinu ed, Routine
Use approved by (Faculty and pager): ADC PROVIDER enoxaparin Yes 30mg 30 mg, Unive rs (LOVENOX) 03-10 Subcutaneo ity of injection 23:00: us, DAILY, [place] 30 mg 00 First dose Medical on [facility] 03/10/21 at 1700, Until Discontinu ed, Routine HYDROcodone 2021- No 1{tbl} 1 tablet, Univers -acetaminop 03-1006 Oral, ity of hen (NORCO) 22:11: 01:14 Q6HPRN, [place] 10-325 mg 49 :28 Starting Medica l tablet 1 on [facility] tablet 03/10/21 at 1611, Until 03/12/21 at 1914, Routine, Pain (scale 4-6) acetaminoph Yes 650mg 650 mg, Un jb en 03-10 Oral, ity of (TYLENOL) 21:43: Q6HPR, [place] tablet 650 47 Starting Medic al mg on [facility] Branch 03/10/21 at 1543, Until Discontinu ed, Routine, Pain (scale 1-3) methylpredn 2021- No 125mg 125 mg, U nivers isolone sod 03-10 Intravenou i ty of succ 18:00: 02:02 s, Q6H, [place] (SOLU-MEDRO 00 :25 First dose Me dical L) on [facility] Branch injection 03/10/21 at 125 mg 1200, Until Discontinu ed, Routine azithromyci 2021- No 500mg 500 mg, IV Univers n 03-10 Piggyback, ity of (ZITHROMAX) 17:30: 07:24 Q24H [...] 03/10/21 Branch at 1130, EILEEN FENTanyl PF No 25ug 25 mcg, Un [...] Branc h tablet at 1130, Routine cefTRIAXone 0 2021- No 1000mg 1,000 mg, Univers (ROCEPHIN) [...]
Durat ion of therapy: 72 hours pantoprazol 2020-02 No [id number] 40mg Take 1 Univers e 40 mg EC 03-18 tablet by ity of tablet 00:00: 05:59 mouth [place] 00 :00 daily for Medical 30 days. Branch predniSONE 2020-02- No [id number] 20mg Take 1 Univers 20 mg 03-18 12-17 tablet by ity of tablet 00:00: 05:59 mouth [place] 00 :00 daily for Medical 5 days. Branch fluticasone 2020-02 Yes 1{puff} Inhale 1 [facility] propion-tavia 2-10 Puff every it y of meteroL 15:23: 12 [place] (ADVAIR 08 (twelve) Medical DISKUS) hours. Branch 250-50 mcg/dose inhalation disk flecainide 2020-02 Yes Take by [facility] ers acetate 2-10 mouth 2 ity of [...] inhalation disk flecainide 2020-02 Yes Take by [facility] ers acetate 2-10 mouth 2 ity of [...] inhalation disk flecainide 2020-02 Yes Take by [facility] ers acetate 2-10 mouth 2 ity of (FLECAINIDE 15:23: (two) [place] ORAL) 08 times Medical daily. Branch HYDROcodone 2020-02 Yes 1{tbl} Take 1 Un jb -acetaminop 2-10 tablet by ity of hen (NORCO) 15:23: mouth 3 Lj as 5-325 mg 08 (three) Medical tablet times Branch daily. gabapentin 2020-02- No [id number] 300mg Take 1 Univers 300 mg 2-10 01-10 capsule by ity of capsule 00:00: 05:59 mouth 3 [place] 00 :00 (three) Medical times Branch daily for 30 days. melatonin 3 2020-02- No [id number] 3mg Take 1 Univers mg tablet 2-10 01-10 tablet by ity of 00:00: 05:59 mouth at [place] 00 :00 bedtime Medical for 30 Branch days. metoprolol 2020-02- No [id number] 50mg Take 1 Univers succinate 2-10 01-10 tablet by ity of XL 50 mg 24 00:00: 05:59 mouth [place] hr tablet 00 :00 every 12 Medica l (twelve) Branch hours for 30 days. atorvastati 2020-02- No [id number] 20mg Take 1 Univers n 20 mg 2-10 01-10 tablet by ity of tablet 00:00: 05:59 mouth at [place] 00 :00 bedtime Medical for 30 Branch days. azithromyci 2020-02- No [id number] 500mg Take 1 Univers n 500 mg 2-10 12-18 tablet by ity o f tablet 00:00: 05:59 mouth [place] 00 :00 daily for Medical 7 days. Branch docusate 2020-02- No [id number] 100mg Take 1 Univers 100 mg 2-10 12-16 capsule by ity of capsule 00:00: 05:59 mouth 2 [place] 00 :00 (two) Medical times Branch daily for 5 days. aspirin 81 2020-02- No [id number] 81mg Take 1 Univers mg chewable 1-23 [...] Hospi ta ORAL) 36 :00 l budesonide- 2020-02 No Q.5D Inhale 2 M ethodi glycopyr-fo [...] (two) times a day. cholecalcif 2020-02 Yes [id number] 1999U Take 2 Univers usha, 0-24 tablets by ity of vitamin D3, 00:00: mouth [place] 25 mcg 00 daily. Medical (1,000 Branch unit) tablet cholecalcif 2020-02 Yes [id number] 1999U Take 2 Univers usha, 0-24 tablets by ity of vitamin D3, 00:00: mouth [place] 25 mcg 00 daily. Medical (1,000 Branch unit) tablet cholecalcif 2020-02 Yes [id number] 1999U Take 2 Univers usha, 0-24 tablets by ity of vitamin D3, 00:00: mouth [place] 25 mcg 00 daily. Medical (1,000 Branch unit) tablet cholecalcif 2020-02- No 2{tbl} QD Take 2 M ethodi usha, 0-24 03-[address] vitamin D3, 00:00: 00:00 mouth Hosp nuha 1,000 unit 00 :00 daily. l tablet cholecalcif 2020-02- No [id number] 2000U Take 2 Univers usha, 0-24 02-03 [...] Indication s: severe cough ipratropium 2021- No [id number] .5mg Q6H Take 2.5 Methodi (ATROVENT) 8- 03-10 mL (0.[address] 0.02 % 00:00: 00:00 total) by Hospi ta nebulizer 00 :00 nebulizati l solution on Every 6 hours while awake as needed (RT) for wheezing or shortness of breath. pantoprazol Yes 40mg QD Take 40 mg Methodi e 2-[address] (PROTONIX) 00:00: in the Hospi ta 40 MG EC 00 morning. l tablet pantoprazol 2022- No 40mg QD Take 1 Met hodi e 2-05 02-09 tablet (40 st (PROTONIX) 00:00: 00:00 mg total) H ospita 40 MG EC 00 :00 by mouth l tablet daily. 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 0.02% 00:00: pulmonary NEBULIZER [place] nebulizer 00 disease 4 TIMES MD solution DAILY Yajaira [facility]quis 5 Eliquis 5 No Eliquis 5 [...] Artur 1 puff Co mmon Ellipta Ellipta [facility] Breo Breo Yes Artur 1 puff Common Ellipta Ellipta [facility] [place] Hydrocodone Hydrocodone Yes Artur 1 capsule Common [facility] azithromyci No azithromyc [facility] [...] inhalation day by route. route. inhalation route. Immunizations Ordered Immunization Filled Date Status Comments Sour ce Name Immunization Name PFIZER >12 YR 2022-01-22 Completed [facility] COVID-19 MRNA 00:00:00 [facility] BIVALENT VACCINATION Zoster 2022-01-22 Completed [facility]into 00:00:00 [facility] Remdesivir 2021-09-06 Completed [facility] 00:00:00 [facility] Remdesivir 2021-09-06 Completed [facility] 00:00:00 [facility] Remdesivir 2021-09-06 Completed [facility] 00:00:00 [facility] Remdesivir 2021-09-06 Completed [facility] 00:00:00 [facility] Remdesivir 2021-09-06 Completed [facility] 00:00:00 [facility] Remdesivir 2021-09-06 Completed [facility] 00:00:00 [facility] Remdesivir 2021-09-06 Completed [facility] 00:00:00 [facility] Remdesivir 2021-09-06 Completed [facility] 00:00:00 [facility] Remdesivir 2021-09-06 Completed [facility] 00:00:00 [facility] Remdesivir 2021-09-06 Completed [facility] 00:00:00 [facility] Remdesivir 2021-09-06 Completed [facility] 00:00:00 [facility] Remdesivir 2021-09-06 Completed [facility] 00:00:00 [facility] Remdesivir 2021-09-06 Completed [facility] 00:00:00 [facility] Remdesivir 2021-09-06 Completed [facility] 00:00:00 [facility] Remdesivir 2021-09-06 Completed [facility] 00:00:00 [facility] Remdesivir 2021-09-06 Completed [facility] 00:00:00 [facility] Remdesivir 2021-09-06 Completed [facility] 00:00:00 [facility] Remdesivir 2021-09-06 Completed [facility] 00:00:00 [facility] Remdesivir 2021-09-06 Completed [facility] 00:00:00 [facility] Remdesivir 2021-09-06 Completed [facility] 00:00:00 [facility] Remdesivir 2021-09-06 Completed [facility] 00:00:00 [facility] Remdesivir 2021-09-06 Completed [facility]into 00:00:00 [facility] Remdesivir 2021-09-05 Completed [facility] 00:00:00 [facility] Remdesivir 2021-09-05 Completed [facility] 00:00:00 [facility] Remdesivir 2021-09-05 Completed [facility] 00:00:00 [facility] Remdesivir 2021-09-05 Completed [facility] of 00:00:00 [facility] Remdesivir 2021-09-05 Completed [facility] 00:00:00 [facility] Remdesivir 2021-09-05 Completed [facility] 00:00:00 [facility] Remdesivir 2021-09-05 Completed [facility] 00:00:00 [facility] Remdesivir 2021-09-05 Completed [facility] 00:00:00 [facility] Remdesivir 2021-09-05 Completed [facility] 00:00:00 [facility] Remdesivir 2021-09-05 Completed [facility] 00:00:00 [facility] Remdesivir 2021-09-05 Completed [facility] 00:00:00 [facility] Remdesivir 2021-09-05 Completed [facility] 00:00:00 [facility] Remdesivir 2021-09-05 Completed [facility] 00:00:00 [facility] Remdesivir 2021-09-05 Completed [facility] 00:00:00 [facility] Remdesivir 2021-09-05 Completed [facility] 00:00:00 [facility] Remdesivir 2021-09-05 Completed [facility] 00:00:00 [facility] Remdesivir 2021-09-05 Completed [facility] 00:00:00 [facility] Remdesivir 2021-09-05 Completed [facility] of 00:00:00 [facility] Remdesivir 2021-09-05 Completed [facility] 00:00:00 [facility] Remdesivir 2021-09-05 Completed [facility] 00:00:00 [facility] Remdesivir 2021-09-05 Completed [facility] 00:00:00 [facility] Remdesivir 2021-09-05 Completed [facility]into 00:00:00 [facility] Remdesivir 2021-09-04 Completed [facility] 00:00:00 [facility] Remdesivir 2021-09-04 Completed [facility] of 00:00:00 [facility] Remdesivir 2021-09-04 Completed [facility] 00:00:00 [facility] Remdesivir 2021-09-04 Completed [facility] 00:00:00 [facility] Remdesivir 2021-09-04 Completed [facility] 00:00:00 [facility] Remdesivir 2021-09-04 Completed [facility] 00:00:00 [facility] Remdesivir 2021-09-04 Completed [facility] 00:00:00 [facility] Remdesivir 2021-09-04 Completed [facility] 00:00:00 [facility] Remdesivir 2021-09-04 Completed [facility] 00:00:00 [facility] Remdesivir 2021-09-04 Completed [facility] 00:00:00 [facility] Remdesivir 2021-09-04 Completed [facility] 00:00:00 [facility] Remdesivir 2021-09-04 Completed [facility] 00:00:00 [facility] Remdesivir 2021-09-04 Completed [facility] 00:00:00 [facility] Remdesivir 2021-09-04 Completed [facility] 00:00:00 [facility] Remdesivir 2021-09-04 Completed [facility] 00:00:00 [facility] Remdesivir 2021-09-04 Completed [facility] 00:00:00 [facility] Remdesivir 2021-09-04 Completed [facility] 00:00:00 [facility] Remdesivir 2021-09-04 Completed [facility] 00:00:00 [facility] Remdesivir 2021-09-04 Completed [facility] 00:00:00 [facility] Remdesivir 2021-09-04 Completed [facility] 00:00:00 [facility] Remdesivir 2021-09-04 Completed [facility] 00:00:00 [facility] Remdesivir 2021-09-04 Completed [facility]into 00:00:00 [facility] Remdesivir 2021-09-03 Completed [facility] 00:00:00 [facility] Remdesivir 2021-09-03 Completed [facility] 00:00:00 [facility] Remdesivir 2021-09-03 Completed [facility] 00:00:00 [facility] Remdesivir 2021-09-03 Completed [facility] 00:00:00 [facility] Remdesivir 2021-09-03 Completed [facility] 00:00:00 [facility] Remdesivir 2021-09-03 Completed [facility] 00:00:00 [facility] Remdesivir 2021-09-03 Completed [facility] 00:00:00 [facility] Remdesivir 2021-09-03 Completed [facility] 00:00:00 [facility] Remdesivir 2021-09-03 Completed [facility] 00:00:00 [facility] Remdesivir 2021-09-03 Completed [facility] 00:00:00 [facility] Remdesivir 2021-09-03 Completed [facility] 00:00:00 [facility] Remdesivir 2021-09-03 Completed [facility] 00:00:00 [facility] Remdesivir 2021-09-03 Completed [facility] 00:00:00 [facility] Remdesivir 2021-09-03 Completed [facility] 00:00:00 [facility] Remdesivir 2021-09-03 Completed [facility] 00:00:00 [facility] Remdesivir 2021-09-03 Completed [facility] 00:00:00 [facility] Remdesivir 2021-09-03 Completed [facility] 00:00:00 [facility] Remdesivir 2021-09-03 Completed [facility] 00:00:00 [facility] Remdesivir 2021-09-03 Completed [facility] 00:00:00 [facility] Remdesivir 2021-09-03 Completed [facility] 00:00:00 [facility] Remdesivir 2021-09-03 Completed [facility] 00:00:00 [facility] Remdesivir 2021-09-03 Completed Shinto 00:00:00 [facility] Remdesivir 2021-09-02 Completed [facility] 00:00:00 [facility] Remdesivir 2021-09-02 Completed [facility] 00:00:00 [facility] Remdesivir 2021-09-02 Completed [facility] 00:00:00 [facility] Remdesivir 2021-09-02 Completed [facility] 00:00:00 [facility] Remdesivir 2021-09-02 Completed [facility] 00:00:00 [facility] Remdesivir 2021-09-02 Completed [facility] 00:00:00 [facility] Remdesivir 2021-09-02 Completed [facility] 00:00:00 [facility] Remdesivir 2021-09-02 Completed [facility] 00:00:00 [facility] Remdesivir 2021-09-02 Completed [facility] 00:00:00 [facility] Remdesivir 2021-09-02 Completed [facility] 00:00:00 [facility] Remdesivir 2021-09-02 Completed [facility] 00:00:00 [facility] Remdesivir 2021-09-02 Completed [facility] 00:00:00 [facility] Remdesivir 2021-09-02 Completed [facility] 00:00:00 [facility] Remdesivir 2021-09-02 Completed [facility] 00:00:00 [facility] Remdesivir 2021-09-02 Completed [facility] 00:00:00 [facility] Remdesivir 2021-09-02 Completed [facility] 00:00:00 [facility] Remdesivir 2021-09-02 Completed [facility] 00:00:00 [facility] Remdesivir 2021-09-02 Completed [facility] 00:00:00 [facility] Remdesivir 2021-09-02 Completed [facility] 00:00:00 [facility] Remdesivir 2021-09-02 Completed [facility] 00:00:00 [facility] Remdesivir 2021-09-02 Completed [facility] 00:00:00 [facility] Remdesivir 2021-09-02 Completed [facility] 00:00:00 Hospital PFIZER COVID-19 MRNA 2021-07-20 Completed [facility] VACCINATION 00:00:00 Hospital Pneumococcal 2021-07-20 Completed [facility] Conjugate 00:00:00 Hospital Zoster 2021-07-20 Completed [facility] 00:00:00 Hospital PFIZER COVID-19 MRNA 2021-06-29 Completed [facility] VACCINATION 00:00:00 Hospital PFIZER COVID-19 MRNA 2021-06-29 Completed [facility] VACCINATION 00:00:00 [facility] PFIZER READY TO USE 2021-06-29 Completed [facility] COVID-19 MRNA 00:00:00 Hospital VACCINATION Influenza Virus 2019-05-29 Completed Universit y of Vaccine Quad .5 mL 00:00:00 [facility] Influenza Virus [...] y of Vaccine [facility] .5 mL 00:00:00 [facility] Influenza Virus 2019-05-29 Completed [facility]it y of [facility] .5 mL 00:00:00 [facility] Influenza Virus 2019-05-29 Completed [facility]it y of [facility] .5 mL 00:00:00 [facility] Influenza Virus 2019-05-29 Completed [facility]it y of [facility] .5 mL 00:00:00 [facility] Influenza Virus 2019-05-29 Completed [facility]it y of [facility] .5 mL 00:00:00 [facility] Influenza Virus 2019-05-29 Completed [facility] y of [facility] .5 mL 00:00:00 [facility] 6+ MO [facility] Influenza Virus 2019-05-29 Completed [facility]it y of [facility] .5 mL 00:00:00 [facility] 6+ MO [facility] Influenza Virus 2019-05-29 Completed Universit y of Vacc[facility] .5 mL 00:00:00 [facility] 6+ MO Branch Influenza Virus 2019-05-29 Completed Universit y of Vaccine Quad .5 mL 00:00:00 [facility] 6+ MO Branch Influenza, 2019-05-29 Completed [facility] Unspecified 00:00:00 Hospital Pneumococcal 2017-05-22 Completed [facility] Polysaccharide 00:00:00 Hospital Pneumococcal 2017-05-22 Completed [facility] Polysaccharide 00:00:00 Hospital Pneumococcal, 2016-02-06 Completed [facility] Unspecified 00:00:00 Hospital pneumococcal, pneumococcal, 2016-02-06 Completed [facility] unspecified unspecified 00:00:00 formulation formulation pneumococcal, pneumococcal, 2016-02-06 Completed [facility] unspecified unspecified 00:00:00 formulation formulation Pneumococcal, 2016-02-06 Completed [facility] Unspecified 00:00:00 Hospital Pneumococcal 2014-11-04 Completed [facility] Conjugate 13-Valent 00:00:00 [facility]pi [facility] Pneumococcal 2014-11-04 Completed University o f Conjugate 13-Valent 00:00:00 [place] Damien Murray [facility] Pneumococcal 13 2014-11-04 Completed Universit y of Conjugate, PCV13 00:00:[address] [facility] dicjanice (Prevnar 13) Branch Pneumococcal 13 2014-11-04 Completed [...] [place] [facility] (Prevnar 13) [facility] Pneumococcal 2014-11-04 Completed [facility] Conjugate 13-Valent 00:00:00 Hospi martha Pneumococcal 2014-11-04 Completed [place] [facility] Conjugate 13-Valent 00:00:00 [facility] influenza, influenza, Unknown Completed [facility] injectable, injectable, quadrivalent, quadrivalent, preservative free - preservative free 0.5 mL vial(s) - 0.5 mL vial(s) pneumococcal pneumococcal Unknown Completed [facility] conjugate PCV 13 conjugate PCV 13 influenza, influenza, Unknown Completed [facility] injectable, injectable, quadrivalent, quadrivalent, preservative free - preservative free 0.5 mL vial(s) - 0.5 mL vial(s) pneumococcal pneumococcal Unknown Completed [facility] conjugate PCV 13 conjugate PCV 13 Vital Signs Vital Name Observation Time Observation Value Comments Source Systolic blood 2022-03-17 23:45:00 110 mm[Hg] Univer [facility]ity of [facility] Diastolic blood 2022-03-17 23:45:00 66 [facility]Hg[facility] 2022-03-17 23:45:00 81 /min [facility] Respiratory rate 2022-03-17 23:45:00 16 /min [facility] Oxygen saturation in 2022-03-17 23:45:00 98 /min [facility] Arterial blood by [facility] Pulse oximetry [place] Body temperature 2022-03-17 21:07:00 36.67 Laure [facility] Body height 2022-03-17 21:07:00 157.5 cm [facility] Body weight 2022-03-17 21:07:00 55.339 kg [facility] BMI 2022-03-17 21:07:00 22.31 kg/m2 [facility] Systolic blood 2022-03-04 10:21:00 126 mm[Hg] Univer sity of [facility] Diastolic blood 2022-03-04 10:21:00 59 mm[Hg] Unive rsity of [facility] Heart rate 2022-03-04 10:21:00 97 /min [facility] Body temperature 2022-03-04 10:21:00 36.94 Laure [facility] Respiratory rate 2022-03-04 10:21:00 18 /min Univ ers[facility] Oxygen saturation in 2022-03-04 10:21:00 100 /min [facility] of Arterial blood by [place] [facility] Pulse oximetry Branch Body height 2022-03-04 06:12:00 162.6 cm [facility] Body weight 2022-03-04 06:12:00 57.153 kg [facility] BMI 2022-03-04 06:12:00 21.63 kg/m2 [facility] Heart rate 2022-03-01 21:45:00 80 /min [facility] Respiratory rate 2022-03-01 21:45:00 17 /min Univ ersity [facility] Oxygen saturation in 2022-03-01 21:45:00 100 /min [facility] Pulse oximetry [facility] Systolic blood 2022-03-01 21:00:00 107 mm[Hg] Univer sity of pressure [facility] Diastolic blood 2022-03-01 21:00:00 70 mm[Hg] Unive rsity of pressure [facility] Body temperature 2022-03-01 20:23:00 37 Laure [facility] ersity [facility] Body height 2022-03-01 20:23:00 157.5 cm [facility] Body weight 2022-03-01 20:23:00 57.153 kg [facility] BMI 2022-03-01 20:23:00 23.05 kg/m2 [facility] Systolic blood 2021-12-30 13:51:00 117 mm[Hg] Univer sity of pressure [facility] Diastolic blood 2021-12-30 13:51:00 69 mm[Hg] Unive rsity of pressure [facility] Heart rate 2021-12-30 13:51:00 82 /min [facility] Body temperature 2021-12-30 13:51:00 36.78 Laure [facility] ers[facility] Respiratory rate 2021-12-30 13:51:00 18 /min Univ ers[facility] Oxygen saturation in 2021-12-30 13:51:00 98 /min [facility] Arterial blood by [place] [facility] Pulse oximetry [facility] Body weight 2021-12-30 09:42:00 59.467 kg [facility] BMI 2021-12-30 09:42:00 23.98 kg/m2 [facility] Body height 2021-12-28 00:00:00 157.5 cm [facility] Heart rate 2021-12-04 23:00:00 80 /min [facility] Oxygen saturation in 2021-12-04 23:00:00 99 /min [facility] of Arterial blood by [place] [facility] Pulse oximetry Branch Respiratory rate 2021-12-04 20:31:00 22 /min Univ ersity of [facility] Systolic blood 2021-12-04 17:00:00 114 mm[Hg] Univer sity of pressure [facility] Diastolic blood 2021-12-04 17:00:00 70 mm[Hg] Unive rsity of pressure [facility] Body temperature 2021-12-04 17:00:00 36.39 Laure [facility] Body weight 2021-12-04 09:00:00 56.972 kg [facility] BMI 2021-12-04 09:00:00 22.97 kg/m2 [facility] Body height 2021-12-04 00:30:00 157.5 cm [facility] Systolic blood 2021-11-26 20:00:00 102 mm[Hg] Univer sity of pressure [facility] Diastolic blood 2021-11-26 20:00:00 57 mm[Hg] Unive rsity of pressure [facility] Heart rate 2021-11-26 20:00:00 62 /min [facility] Body temperature 2021-11-26 20:00:00 36.39 Laure [facility] Respiratory rate 2021-11-26 20:00:00 18 /min [facility] Oxygen saturation in 2021-11-26 20:00:00 97 /min [facility] of Arterial blood by [place] [facility] Pulse oximetry Branch Body weight 2021-11-26 08:16:00 56.972 kg [facility] BMI 2021-11-26 08:16:00 22.97 kg/m2 [facility] Body height 2021-11-24 08:00:00 157.5 cm [facility] Systolic blood 2021-11-12 19:00:00 106 mm[Hg] Univer sity of pressure [facility] Diastolic blood 2021-11-12 19:00:00 61 mm[Hg] Unive rsity of pressure [facility] Heart rate 2021-11-12 19:00:00 70 /min [facility] Respiratory rate 2021-11-12 19:00:00 15 /min Univ ersity [facility] Oxygen saturation in 2021-11-12 19:00:00 100 /min [facility] Arterial blood by [place] [facility] Pulse oximetry Branch Body temperature 2021-11-12 17:16:00 37.61 Laure [facility] Body height 2021-11-12 17:16:00 157.5 cm [facility] Body weight 2021-11-12 17:16:00 58.968 kg [facility] BMI 2021-11-12 17:16:00 23.78 kg/m2 [facility] Respiratory rate 2021-09-14 19:53:00 18 /min Univ ers[facility] Oxygen saturation in 2021-09-14 19:53:00 100 /min [facility] Arterial blood by [place] [facility] Pulse oximetry Branch Systolic blood 2021-09-14 19:10:00 104 mm[Hg] Univer sity of pressure [facility] Diastolic blood 2021-09-14 19:10:00 64 mm[Hg] Unive rsity of pressure [facility] Heart rate 2021-09-14 19:10:00 75 /min [facility] Body temperature 2021-09-14 17:16:00 37.61 Laure [facility] Body weight 2021-09-14 17:16:00 57.607 kg [facility] BMI 2021-09-14 17:16:00 23.23 kg/m2 [facility] Respiratory rate 2021-09-06 18:36:00 16 /min Univ ersity [facility] Oxygen saturation in 2021-09-06 18:36:00 96 /min University of Arterial blood by [employer] [facility] Pulse oximetry Branch Systolic blood 2021-09-06 16:24:00 103 mm[Hg] Univer sity of pressure [facility] Diastolic blood 2021-09-06 16:24:00 55 mm[Hg] Unive rsity of pressure [facility] Heart rate 2021-09-06 16:24:00 63 /min [facility] [place] Body temperature 2021-09-06 16:24:00 35.89 Laure [facility] Body weight 2021-09-06 08:42:00 59.9 kg [facility] BMI 2021-09-06 08:42:00 24.15 kg/m2 [facility] [place] Body height 2021-09-02 05:53:00 157.5 cm Universi ty of [facility] Body temperature 2021-04-16 22:26:00 36.11 Laure Univ ersity of [facility] Systolic blood 2021-04-16 21:33:00 127 mm[Hg] Univer sity of pressure [facility] Diastolic blood 2021-04-16 21:33:00 68 mm[Hg] Unive rsity of pressure [facility] Heart rate 2021-04-16 21:33:00 69 /min [facility] Respiratory rate 2021-04-16 21:33:00 18 /min Univ ersity of [facility] Body height 2021-04-16 21:33:00 157.5 cm [facility] Body weight 2021-04-16 21:33:00 54.432 kg [facility] [place] BMI 2021-04-16 21:33:00 21.95 kg/m2 [facility] [place] Oxygen saturation in 2021-04-16 21:33:00 98 /min [facility] Arterial blood by [facility] Pulse oximetry Branch Systolic blood 2021-03-15 17:40:00 113 mm[Hg] Univer sity of pressure [facility] Diastolic blood 2021-03-15 17:40:00 68 mm[Hg] Unive rsity of pressure [facility] [place] Heart rate 2021-03-15 17:40:00 67 /min Universi ty of [facility] Body temperature 2021-03-15 17:40:00 36.39 Laure [facility] Respiratory rate 2021-03-15 17:40:00 16 /min [facility] Oxygen saturation in 2021-03-15 17:40:00 100 /min [facility] Ar[facility] Pulse oximetry [facility] Body weight 2021-03-15 09:39:[address] [facility] BMI 2021-03-15 09:39:00 22.75 kg/m2 [facility] Height 2020-06-03 00:00:00 62 [in_i] Yvonne Shaw [facility] BMI (Body Mass 2020-06-03 00:00:00 22.1 kg/m2 [facility]) Body Weight 2020-06-03 00:00:00 1936 [oz_av] Yvonne Shaw [facility] Systolic blood 2022-06-22 16:45:00 127 mm[Hg] [facility] pressure Diastolic blood 2022-06-22 16:45:00 60 mm[facility]Hg[facility] Heart rate 2022-06-22 16:45:00 86 /min [facility] Body temperature 2022-06-22 16:45:00 36.17 Laure [facility] Respiratory rate 2022-06-22 16:45:00 18 /min [facility] Body height 2022-06-22 16:45:00 157.5 cm [facility] Body weight 2022-06-22 16:45:00 53.388 kg [facility] BMI 2022-06-22 16:45:00 21.53 kg/m2 [facility] Oxygen saturation in 2022-06-22 16:45:00 99 /min [facility] Arterial blood by Pulse oximetry Systolic blood 2021-06-23 17:47:00 124 mm[Hg] [facility] pressure Diastolic blood 2021-06-23 17:47:00 58 mm[Hg] [facility] pressure Heart rate 2021-06-23 17:47:00 69 /min [facility] Body temperature 2021-06-23 17:47:00 35.72 Laure [facility] Respiratory rate 2021-06-23 17:47:00 19 /min [facility] Body weight 2021-06-23 17:47:00 57.698 kg [facility] BMI 2021-06-23 17:47:00 23.27 kg/m2 [facility] Oxygen saturation in 2021-06-23 17:47:00 99 /min [facility] Arterial blood by Pulse oximetry Body height 2021-06-17 18:43:00 157.5 cm [facility] Procedures Procedure Date / Time Performing Source Performed Clinician SIX MINUTE WALK W/ PULSE OXIMETRY 2022-06-22 Nawaf Wynnist 15:29:30 Hospital SPIROMETRY, LUNG VOLUMES 2022-06-22 Nawaf Wynn Method ist 15:27:52 Hospital XR CHEST 2 VW 2022-06-22 Nawaf Wynn Shinto 13:36:00 Hospital CBC WITH PLATELET AND DIFFERENTIAL 2022-06-22 Nawaf Wynnist 12:50:00 [facility] COMPREHENSIVE METABOLIC PANEL 2022-06-22 Nawaf Wynn ethodist 12:50:00 Hospital ALCOHOL LEVEL, BLOOD 2022-06-22 Nawaf Wynnist 12:50:00 Hospital URINE DRUGS OF ABUSE SCREEN 2022-06-22 Nawaf Wynn Met hodist 12:50:00 Hospital NICOTINE AND COTININE, SERUM 2022-06-22 Nawaf Wynn Ma thodist 12:50:00 Hospital ESTIMATED GFR 2022-06-22 Nawaf Wynn Shinto 12:50:00 Hospital SINGLE ANTIGEN BEADS 2022-06-22 Nawaf Wynn Shinto 12:50:00 [facility] ECG 12-LEAD 2022-05-11 Nawaf Wynnist 16:51:15 Hospital XR CHEST 2 VW 2022-05-11 Nawaf Wynnist 15:16:00 Hospital SIX MINUTE WALK W/ PULSE OXIMETRY 2022-05-11 Nawaf Wynn 14:28:47 Hospital SPIROMETRY, LUNG VOLUMES 2022-05-11 Nawaf Wynn Method ist 12:30:00 Hospital CBC WITH PLATELET AND DIFFERENTIAL 2022-05-11 Nawaf Wynn 12:05:00 [facility] COMPREHENSIVE METABOLIC PANEL 2022-05-11 Nawaf Wynn ethodist 12:05:00 Hospital NICOTINE AND COTININE, SERUM 2022-05-11 Nawaf Wynn Ma thodist 12:05:00 Hospital ALCOHOL LEVEL, BLOOD 2022-05-11 Nawaf Wynnist 12:05:00 Hospital ESTIMATED GFR 2022-05-11 Nawaf Wynn 12:05:00 Hospital SAB CLASS 1 & 2 WITH DILUTIONS 2022-05-11 Nawaf Wynn 12:05:00 Hospital EXTERNAL PROVIDER - ADC CARDIOLOGY 2022-05-05 Doctor Candy reaves [facility] 05:01:00 [place] [facility] XR CHEST 1 VW PORTABLE 2022-04-27 Janelle Hahn 14:00:00 Hospital CBC WITH PLATELET AND DIFFERENTIAL 2022-04-27 Demi Cuello 09:15:00 Hospital MAGNESIUM LEVEL 2022-04-27 Demi Cuello 09:15:00 Hospital BASIC METABOLIC PANEL 2022-04-[address] 09:15:00 Hospital ESTIMATED GFR 2022-04-27 Demi Cuello 09:15:00 Hospital [place] AN ELECTIVE ENDOTRACHEAL AIRWAY 2022-04-26 Luis Valencia 13:36:00 [facility] EXTRACTION, TOOTH 2022-04-26 Cesar Hamilton 13:11:00 Hospital ALVEOLOPLASTY 2022-04-26 Cesar Hamilton 13:11:00 Hospital XR CHEST 2 VW 2022-04-24 Nawaf Wynn 16:15:00 Hospital SIX MINUTE WALK W/ PULSE OXIMETRY 2022-04-24 Nawaf Wynn 14:44:17 Hospital SPIROMETRY 2022-04-24 Nawaf Wynn 14:05:38 Hospital TTE COMPLETE, WO CONTRAST, W 2022-04-24 Nawaf Wynn AGITATED SALINE ([id number]) 12:56:15 Hospital CBC WITH PLATELET AND DIFFERENTIAL 2022-04-24 Nawaf Wynn 11:25:00 Hospital COMPREHENSIVE METABOLIC PANEL 2022-04-24 Nawaf yWnn ethodi 11:25:00 Hospital ALCOHOL LEVEL, BLOOD 2022-04-24 Nawaf Wynn 11:25:00 [facility] NICOTINE AND COTININE, SERUM 2022-04-24 Nawaf Wynn thodist 11:25:00 Hospital VITAMIN D 25 HYDROXY LEVEL 2022-04-24 Nawaf Wynn Meth odist 11:25:00 Hospital URINE DRUGS OF ABUSE SCREEN 2022-04-24 Nawaf Wynn Met hodist 11:25:00 Hospital ESTIMATED GFR 2022-04-24 Nawaf Wynn Shinto 11:25:00 Hospital SINGLE ANTIGEN BEADS 2022-04-24 Nawaf Wynn Shinto 11:25:00 Hospital HEMOGLOBIN A1C 2022-04-12 Maryellen Roach 17:36:00 [facility] PARTIAL THROMBOPLASTIN TIME (PTT) 2022-04-12 Maryellen Roach 17:36:00 [facility] PROTHROMBIN TIME WITH INR 2022-04-12 Maryellen Roach ist 17:36:00 [facility] CBC WITH PLATELET AND DIFFERENTIAL 2022-04-12 Maryellen Roach 17:36:00 [facility] COMPREHENSIVE METABOLIC PANEL 2022-04-12 Maryellen Roach thodist 17:30:00 [facility] ESTIMATED GFR 2022-04-12 Maryellen Roach 17:30:00 [facility] ASSIGNMENT OF BENEFITS 2022-04-03 Doctor Unassigned, Univer sity of 18:14:23 [place] [facility] CBC WITH PLATELET AND DIFFERENTIAL 2022-04-01 Karina Pettit 10:32:00 [facility] BASIC METABOLIC PANEL 2022-04-01 Karina Pettit 10:32:00 Hospital ESTIMATED GFR 2022-04-01 Karina Pettit 10:32:00 Hospital CLOSTRIDIUM DIFFICILE TOXIN GENE 2022-04-01 Karina Pettit (QUALITATIVE REAL-TIME PCR) 05:02:00 Hosp ital CBC WITH PLATELET AND DIFFERENTIAL 2022-03-31 Karina Pettit 10:52:00 Hospital BASIC METABOLIC PANEL 2022-03-31 Sally Pettitar Shinto 10:52:00 Hospital ESTIMATED GFR 2022-03-31 NelsyKarina 10:52:00 Hospital IMMUNOGLOBULIN G 2022-03-30 Tevin Orozco 09:48:00 Hospital IGG SUBCLASSES 2022-03-30 Tevin Orozco 09:48:00 Hospital IMMUNOGLOBULIN E 2022-03-30 Tevin Orozco 09:48:00 Hospital CBC WITH PLATELET AND DIFFERENTIAL 2022-03-30 Nelsy, Umar Shinto 09:48:00 Hospital BASIC METABOLIC PANEL 2022-03-30 Nelsy Sallyines Shinto 09:48:00 Hospital ESTIMATED GFR 2022-03-30 Nelsy Karina Shinto 09:48:00 Hospital XR KNEE 3 VW LEFT 2022-03-30 PamLeonardo aguilerashaheedcristina Shinto 01:38:[address] CHEST WO CONTRAST 2022-03-30 Tevin Orozco Shinto 01:28:30 Hospital XR CHEST 1 VW PORTABLE 2022-03-30 Karina Pettit Shinto 00:32:08 Hospital ECG 12-LEAD 2022-03-29 Kait Gutierrez 15:36:25 [facility] TROPONIN T 2022-03-29 Kait Gutierrez 15:29:00 [facility] THYROID STIMULATING HORMONE 2022-03-29 Gutierrez, Meth odist 15:29:00 [facility] T3 2022-03-29 Kait Gutierrez 15:29:00 [facility] T4, FREE 2022-03-29 Kait Gutierrez 15:29:00 [facility] B NATRIURETIC PEPTIDE 2022-03-29 GutierrezKait silva 15:29:00 [facility] CBC WITH PLATELET AND DIFFERENTIAL 2022-03-29 Ashok Hill 10:56:00 [facility] COMPREHENSIVE METABOLIC PANEL 2022-03-29 Ashok Hill ethodist 10:56:00 Hospital ESTIMATED GFR 2022-03-29 Ashok Hill 10:56:[address] RENAL STONE PROTOCOL 2022-03-29 Karina Pettit t 03:09:52 Hospital SPUTUM CULTURE 2022-03-28 Lennie Mclaughlin 20:38:00 Hospital GRAM STAIN 2022-03-28 Lennie Mclaughlin 20:38:00 Hospital XR CHEST 1 VW PORTABLE 2022-03-28 Lennie Mclaughlin 20:05:00 Hospital CBC WITH PLATELET AND DIFFERENTIAL 2022-03-28 Ashok Hill 10:11:00 Hospital COMPREHENSIVE METABOLIC PANEL 2022-03-28 Ashok Hill ethodist 10:11:00 Hospital ESTIMATED GFR 2022-03-28 Ashok Hill 10:11:00 Hospital INSURANCE CORRESPONDENCE 2022-03-28 Doctor Unassvioletta, Univ ersity of 06:01:00 [place] [facility] SURGICAL PATHOLOGY REQUEST 2022-03-27 Karina Pettito dist 21:16:00 Hospital [place] AN ELECTIVE ENDOTRACHEAL AIRWAY 2022-03-27 BrandinabdelrahmanSarah oropeza Shinto 19:50:00 [facility] ESOPHAGOGASTRODUODENOSCOPY (EGD) 2022-03-27 Elaine Ramirez 19:40:00 [facility] COLONOSCOPY 2022-03-27 Elaine Ramirez 19:40:00 [facility] CBC WITH PLATELET AND DIFFERENTIAL 2022-03-27 Ashok Hill 10:35:00 Hospital COMPREHENSIVE METABOLIC PANEL 2022-03-27 Ashok Hill ethodist 10:35:00 Hospital VENOUS BLOOD GAS 2022-03-27 Alpesh Granados 10:35:00 Hospital ESTIMATED GFR 2022-03-27 Ashok Hillist 10:35:00 Hospital COVID-19 QUALITATIVE RT-PCR 2022-03-26 Ashok Hill hodist 18:59:00 Hospital TROPONIN I 2022-03-17 Reis, [facility] of 21:24:00 [facility] COMP. METABOLIC PANEL ([id number]) 2022-03-17 Edward Reis iversity of 21:24:00 [facility] CBC WITH DIFF 2022-03-17 [place] [facility] of 21:24:00 [facility] N-TERMINAL PRO-BNP 2022-03-17 [place] [facility] of 21:24:00 [facility] CONSENT/REFUSAL FOR DIAGNOSIS AND 2022-03-17 Doctor Zafar powell, [facility] 20:58:40 [place] [facility] CT CHEST PULMONARY ANGIOGRAM 2022-03-04 Rakel Fulton Un iversity of 09:06:58 [facility] XR CHEST 1 VW 2022-03-04 Rakel Fulton [place] of 07:22:00 [facility] LIPASE 2022-03-04 Rakel Fulton [place] of 07:09:00 [facility] TROPONIN I 2022-03-04 [facility] 07:[facility]00 [facility] COMP. METABOLIC PANEL ([id number]) 2022-03-04 MalinidcRakel coreas U niversity of 07:09:00 [facility] CBC WITH DIFF 2022-03-04 Malinidcjoss [facility] of 07:09:00 [facility] PROTHROMBIN TIME / INR 2022-03-04 [facility] of 07:09:00 [facility] ACTIVATED PARTIAL THRMPLAS LORRIE 2022-03-04 [facility] of 07:09:00 [facility] CONSENT/REFUSAL FOR DIAGNOSIS AND 2022-03-04 [facility] 06:01:34 [place] [facility] XR CHEST 1 VW 2022-03-01 [facility] of 21:18:40 [facility] TROPONIN I 2022-03-01 [facility] of 20:43:00 [facility] COMP. METABOLIC PANEL ([id number]) 2022-03-01 [facility] iversity of 20:43:00 [facility] CBC WITH DIFF 2022-03-01 [facility] of 20:43:00 [facility] N-TERMINAL PRO-BNP 2022-03-01 [facility] of 20:43:00 [facility] LACTIC ACID WHOLE BLOOD 2022-03-01 [facility] ty of 20:43:00 [facility] CONSENT/REFUSAL FOR DIAGNOSIS AND 2022-03-01 [facility] 20:19:16 [place] [facility] EXTERNAL PROVIDER - ADC CARDIOLOGY 2022-02-03 [facility] 06:01:00 [place] [facility] URINE DRUGS OF ABUSE SCREEN 2022-01-23 Nawaf Wynn Met hodist 19:45:00 Hospital SIX MINUTE WALK W/ PULSE OXIMETRY 2022-01-23 Nawaf Wynn 17:46:53 Hospital SPIROMETRY, LUNG VOLUMES 2022-01-23 Nawaf Wynn Method ist 16:23:[address] CHEST WO CONTRAST 2022-01-23 Nawaf Wynnist 15:07:09 Hospital CBC WITH PLATELET AND DIFFERENTIAL 2022-01-23 Nawaf Wynn 13:09:00 [facility] COMPREHENSIVE METABOLIC PANEL 2022-01-23 Nawaf Wynn ethodist 13:09:00 Hospital ALCOHOL LEVEL, BLOOD 2022-01-23 Nawaf Wynn 13:09:00 Hospital NICOTINE AND COTININE, SERUM 2022-01-23 Nawaf Wynn Ma thodist 13:09:00 [facility] ESTIMATED GFR 2022-01-23 Nawaf Wynn 13:09:00 Hospital SAB CLASS 1 & 2 WITH DILUTIONS 2022-01-23 Nawaf Wynn 13:09:00 [facility] BASIC METABOLIC PANEL (NA, K, CL, 2021-12-30 [facility] of CO2, GLUCOSE, BUN, CREATININE, CA) 11:58:00 [facility] CBC WITH DIFF 2021-12-30 [facility] of 11:58:00 [facility] MAGNESIUM 2021-12-29 [facility] of 11:20:00 [facility] BASIC METABOLIC PANEL (NA, K, CL, 2021-12-29 [facility] of CO2, GLUCOSE, BUN, CREATININE, CA) 11:20:00 [facility] CBC WITH DIFF 2021-12-29 [facility] of 11:20:00 [facility] BASIC METABOLIC PANEL (NA, K, CL, 2021-12-28 [facility] of CO2, GLUCOSE, BUN, CREATININE, CA) 10:10:00 [facility] CBC WITH DIFF 2021-12-28 [facility] of 10:10:00 [facility] PROCALCITONIN 2021-12-28 Irene [facility] of 10:10:00 [facility] BLOOD CULTURE SCREEN 2021-12-27 Stuart Shaikh [place] of 21:43:00 [facility] LACTIC ACID WHOLE BLOOD 2021-12-27 Stuart Shaikhi ty of 21:43:00 [facility] CT CHEST PULMONARY ANGIOGRAM 2021-12-27 Stuart Shaikh Uni versity of 20:11:53 [facility] XR CHEST 1 VW 2021-12-27 Stuart Shaikh [place] of 18:26:40 [facility] HB ECG ROUTINE & RHYTHM STRIP 2021-12-27 Stuart Shaikh Un iversity of 18:18:59 [facility] RAPID INFLUENZA A/B 2021-12-27 Stuart Shaikh o f 17:47:00 [facility] COVID-19 (ID NOW RAPID TESTING) 2021-12-27 Stuart Shaikh of 17:47:00 [facility] LAB ONLY COVID INTERPRETATION 2021-12-27 Stuart Shaikh Un iversity of 17:47:00 [facility] TROPONIN I 2021-12-27 Stuart Shaikh of 17:36:00 [facility] COMP. METABOLIC PANEL ([id number]) 2021-12-27 Stuart Shaikh iversity of 17:36:00 [facility] CBC WITH DIFF 2021-12-27 Stuart Shaikh of 17:36:00 [facility] PROTHROMBIN TIME / INR 2021-12-27 Stuart Shaikhit y of 17:36:00 [facility] ACTIVATED PARTIAL THRMPLAS LORRIE 2021-12-27 Stuart Shaikh niversity of 17:36:00 [facility] N-TERMINAL PRO-BNP 2021-12-27 Stuart Shaikh of 17:36:00 [facility] CONSENT/REFUSAL FOR DIAGNOSIS AND 2021-12-27 Doctor Zafar powell, [facility] 17:12:38 [place] [facility] EXTERNAL PROVIDER RECORDS 2021-12-16 Doctor Unassigned, Uni versity of 06:01:00 [place] [facility] XR CHEST 2 VW 2021-12-05 Simran Carrist 15:43:00 Hospital RESPIRATORY PATHOGEN PANEL WITH 2021-12-05 Simran Carr Shinto COVID-19 RT-PCR 15:33:00 Hospital TROPONIN I 2021-12-04 Brianne Hickey of 19:03:00 [facility] TRANSTHORACIC ECHO (TTE) COMPLETE 2021-12-04 Ritchie Garcia [place] of W/ CONTRAST 15:03:00 [facility] ACUTE CARE VENOUS BLOOD GAS 2021-12-04 Brianne Hickey [facility] ersity of 10:09:00 [facility] PHOSPHORUS 2021-12-04 Brianne Hickey [place] of 10:08:00 [facility] MAGNESIUM 2021-12-04 Brianne Hickey [place] of 10:08:00 [facility] VITAMIN B12, LEVEL 2021-12-04 Brianne Hickey [place] of 10:08:00 [facility] TROPONIN I 2021-12-04 [facility] of 10:08:00 [facility] COMP. METABOLIC PANEL ([id number]) 2021-12-04 Brianne Hickey iversity of 10:08:00 [facility] LIPID PANEL ([id number])(TOTAL 2021-12-04 Ritchie Garcia [facility] sity of CHOLESTEROL, TRIGLYCERIDES, HDL) 10:08:00 [facility] CBC WITH DIFF 2021-12-04 [facility] of 10:08:00 [facility] RAPID INFLUENZA A/B 2021-12-04 Mary, [facility] o f 10:08:00 [facility] N-TERMINAL PRO-BNP 2021-12-04 Mary, [facility] of 10:08:00 [facility] PROCALCITONIN 2021-12-04 Mary, [facility] of 10:08:00 [facility] MRSA / MSSA SCREEN BY PCRMERA 2021-12-04 Ritchie Garcia [place] of 10:07:00 [facility] RESPIRATORY PANEL BY PCR 2021-12-[address] [facility] ity of 10:07:00 [facility] URINALYSIS 2021-12-04 Carol Patiño [place] of 07:10:00 [facility] XR CHEST 1 VW 2021-12-03 Carol Patiño [place] of 22:25:08 [facility] LACTIC ACID WHOLE BLOOD 2021-12-[address] [facility] ity of 22:17:00 [facility] LIPASE 2021-12-03 Carol Patiño [place] of 22:14:00 [facility] MAGNESIUM 2021-12-03 Carol Patiño [place] of 22:14:00 [facility] FERRITIN SERUM 2021-12-03 Mary jimmy [place] of 22:14:00 [facility] TROPONIN I 2021-12-03 Carol Patiño [place] of 22:14:00 [facility] THYROID STIMULATING HORMONE 2021-12-03 Carol Patiño Uni versity of 22:14:00 [facility] COMP. METABOLIC PANEL ([id number]) 2021-12-03 Carol Patiño U niversity of 22:14:00 [facility] LIPID PANEL ([id number])(TOTAL 2021-12-03 Brianne Hickey [facility] of CHOLESTEROL, TRIGLYCERIDES, HDL) 22:14:00 [facility] IRON PANEL 2021-12-03 Brianne Hickey [place] of 22:14:00 [facility] CBC WITH DIFF 2021-12-03 [facility] 22:14:00 [facility] GLYCOSYLATED HEMOGLOBIN (A1C) 2021-12-03 Ritchie Garcia Un iversity of 22:14:00 [facility] PROTHROMBIN TIME / INR 2021-12-03 [facility] 22:14:00 [facility] ACTIVATED PARTIAL THRMPLAS LORRIE 2021-12-03 [facility] 22:14:00 [facility] N-TERMINAL PRO-BNP 2021-12-03 [facility] f 22:14:00 [facility] COVID-19 (ID NOW RAPID TESTING) 2021-12-03 [facility] 22:14:00 [facility] HB ECG ROUTINE & RHYTHM STRIP 2021-12-03 Carol Patiño U niversity of 22:12:38 [facility] CONSENT/REFUSAL FOR DIAGNOSIS AND 2021-12-03 Doctor Zafar powell [facility] 22:01:51 [place] [facility] AUTHORIZATION FOR RELEASE OF PHI 2021-12-01 Doctor Lazaro [facility] 05:01:00 [place] [facility] MAGNESIUM 2021-11-26 Preeti Andersen [place] of 09:04:00 [facility] BASIC METABOLIC PANEL (NA, K, CL, 2021-11-26 Preeti Andersen [place] of CO2, GLUCOSE, BUN, CREATININE, CA) 09:04:00 [facility] CBC WITH DIFF 2021-11-26 Preeti Andersen [place] of 09:04:00 [facility] BASIC METABOLIC PANEL (NA, K, CL, 2021-11-24 [facility] of CO2, GLUCOSE, BUN, CREATININE, CA) 09:35:00 [facility] CBC WITH DIFF 2021-11-24 [facility] of 09:35:00 [facility] XR CHEST 1 VW 2021-11-12 Sean Bills [facility] 17:35:24 [facility] BASIC METABOLIC PANEL (NA, K, CL, 2021-11-12 Sean Bills [employer] of CO2, GLUCOSE, BUN, CREATININE, CA) 17:33:00 [facility] CBC WITH DIFF 2021-11-12 Sean Bills [facility] 17:33:00 [facility] RAPID INFLUENZA A/B 2021-11-12 Sean Bills [place] o f 17:33:00 [facility] COVID-19 (ID NOW RAPID TESTING) 2021-11-12 Sean Bills [facility] 17:33:00 [facility] CONSENT/REFUSAL FOR DIAGNOSIS AND 2021-11-12 [facility] 17:18:14 [place] [facility] TROPONIN I 2021-09-14 Sean Bills [facility] 17:58:00 [facility] BASIC METABOLIC PANEL (NA, K, CL, 2021-09-14 Sean Bills [place] of CO2, GLUCOSE, BUN, CREATININE, CA) 17:58:00 [facility] CBC WITH DIFF 2021-09-14 Sean Bills [facility] 17:58:00 [facility] N-TERMINAL PRO-BNP 2021-09-14 Sean Bills [facility] 17:58:00 [facility] COVID-19 (ID NOW RAPID TESTING) 2021-09-14 Sean Bills [facility] 17:58:00 [facility] XR CHEST 1 VW 2021-09-14 Sean Bills [facility] 17:54:14 [facility] CONSENT/REFUSAL FOR DIAGNOSIS AND 2021-09-14 [facility] 17:10:15 [place] [facility] COVID-19 (ID NOW RAPID TESTING) 2021-09-06 Ritchie Garcia [facility] 19:17:00 [facility] XR CHEST 1 VW 2021-09-06 Ritchie Garcia [facility] 16:38:04 [facility] COMP. METABOLIC PANEL ([id number]) 2021-09-05 Ritchie Garcia iversity of 08:53:00 [facility] BASIC METABOLIC PANEL (NA, K, CL, 2021-09-04 Preeti Andersen [place] of CO2, GLUCOSE, BUN, CREATININE, CA) 08:56:00 [facility] CBC WITH DIFF 2021-09-04 Preeti Andersen [place] of 08:56:00 [facility] HEPATIC FUNCTION PANEL ([id number]) 2021-09-03 Ritchie Garcia U niversity of (ALB,T.PRO,BILI 07:52:00 [facility],BU/BC,ALT,AST,ALK PHOS) [place] BASIC METABOLIC PANEL (NA, K, CL, 2021-09-03 [facility] of CO2, GLUCOSE, BUN, CREATININE, CA) 07:52:00 [facility] CBC WITH DIFF 2021-09-03 [facility] of 07:52:00 [facility] URINALYSIS 2021-09-02 [facility] of 09:02:00 [facility] CT CHEST PULMONARY ANGIOGRAM 2021-09-02 [place], [facility] versity of 01:32:47 [facility] COVID-19 (ID NOW RAPID TESTING) 2021-09-02 [facility] 00:14:00 [facility] LAB ONLY COVID INTERPRETATION 2021-09-02 [place], Un iversity of 00:14:00 [facility] HB ECG ROUTINE & RHYTHM STRIP 2021-09-01 [place], Un iversity of 23:58:06 [facility] XR CHEST 1 VW 2021-09-01 [facility] of 23:55:09 [facility] IRON 2021-09-01 Preeti Andersen [place] of 23:34:00 [facility] TOTAL IRON BINDING CAPACITY 2021-09-01 NathalyPreeti [facility] ersity of 23:34:00 [facility] TROPONIN I 2021-09-01 [facility] 23:34:00 [facility] BASIC METABOLIC PANEL (NA, K, CL, 2021-09-01 [facility] CO2, GLUCOSE, BUN, CREATININE, CA) 23:34:00 [facility] CBC WITH DIFF 2021-09-01 [facility] 23:34:00 [facility] NOTICE OF PRIVACY PRACTICES 2021-09-01 Doctor Unassigned, U niversity of 23:12:55 [place] [facility] CONSENT/REFUSAL FOR DIAGNOSIS AND 2021-09-01 Doctor Zafar powell, [facility] 23:12:32 [place] [facility] EXTERNAL PROVIDER - ADC CARDIOLOGY 2021-06-30 Doctor Candy reaves, [facility] 05:01:00 [place] [facility] ALPHA-1 ANTITRYPSIN PHENOTYPE 2021-06-28 Nawaf Wynn ethodist 15:04:00 Hospital HC COMPLETE BLD COUNT W/AUTO DIFF 2021-06-23, Alpesh Carballo 15:48:00 Hospital COMPREHENSIVE METABOLIC PANEL 2021-06-23u, Alpesh Morin thodist 15:48:00 Hospital ALCOHOL LEVEL, BLOOD 2021-06-23, Alpesh Carballo 15:48:00 Hospital NICOTINE AND COTININE, SERUM 2021-06-23, Alpesh Valle hodist 15:48:00 Hospital ESTIMATED GFR 2021-06-23, Alpesh Carballo 15:48:00 Hospital SINGLE ANTIGEN BEADS 2021-06-23, Alpesh Carballo 15:48:00 Hospital XR CHEST 2 VW 2021-06-23, Alpesh Carballo 15:00:48 Hospital SIX MINUTE WALK W/ PULSE OXIMETRY 2021-06-23, Alpesh Carballo 14:05:12 Hospital SPIROMETRY, DIFFUSION 2021-06-23, Alpesh Carballo 12:47:12 Hospital XR CHEST 1 VW PORTABLE 2021-05-28 LorrieNéstor howellmelanierandall Method ist 10:32:46 [facility] HC COMPLETE BLD COUNT W/AUTO DIFF 2021-05-28 Aftab Murphy Shinto 09:41:00 Hospital BASIC METABOLIC PANEL 2021-05-28 Aftab Murphy Shinto 09:41:00 Hospital MAGNESIUM LEVEL 2021-05-28 Aftab Murphy Shinto 09:41:00 Hospital PHOSPHORUS LEVEL 2021-05-28 Aftab Murphy [facility] 09:41:00 Hospital ESTIMATED GFR 2021-05-28 Aftab Murphy [facility] 09:41:00 Hospital XR CHEST 1 VW PORTABLE 2021-05-27 Kwame Mena [facility] 20:25:13 Hospital SURGICAL PATHOLOGY REQUEST 2021-05-27 Tellez, Angeline Metho dist 18:03:00 Hospital XR CHEST 1 VW 2021-05-27 Rajesh Kwame [facility] 17:58:[address] NEEDLE BIOPSY NO CONTRAST 2021-05-27 BlancalibbyGlynn Shinto 16:53:56 Rosemary [facility] FUNGUS CULTURE 2021-05-27 Angeline Tellez [facility] 16:30:00 Hospital AFB CULTURE 2021-05-27 Angeline Tellez [facility] 16:30:00 Hospital FUNGUS SMEAR 2021-05-27 Angeline Tellez [facility] 16:30:00 Hospital AFB STAIN 2021-05-27 Angeline Tellez [facility] 16:30:00 Hospital CYTOLOGY (NON-GYNECOLOGICAL) 2021-05-27 Angeline Tellez Met [facility] REQUEST 16:30:00 Hospital HC COMPLETE BLD COUNT W/AUTO DIFF 2021-05-27 Aftab Murphy [facility] 10:12:00 Hospital BASIC METABOLIC PANEL 2021-05-27 Aftab Muprhy [facility] 10:12:00 Hospital MAGNESIUM LEVEL 2021-05-27 Aftab Murphy [facility] 10:12:00 Hospital PHOSPHORUS LEVEL 2021-05-27 Aftab Murphy [facility] 10:12:00 Hospital ESTIMATED GFR 2021-05-27 Aftab Murphy [facility] 10:12:00 Hospital HC COMPLETE BLD COUNT W/AUTO DIFF 2021-05-26 Aftab Murphy [facility] 08:03:00 Hospital BASIC METABOLIC PANEL 2021-05-26 Aftab Murphy [facility] 08:03:00 Hospital MAGNESIUM LEVEL 2021-05-26 Aftab Murphy [facility] 08:03:00 Hospital PHOSPHORUS LEVEL 2021-05-26 Aftab Murphy [facility] 08:03:00 Hospital ESTIMATED GFR 2021-05-26 Aftab Murphy [facility] 08:03:00 Hospital HC COMPLETE BLD COUNT W/AUTO DIFF 2021-05-25 Aftab Murphy [facility] 09:14:00 Hospital BASIC METABOLIC PANEL 2021-05-25 Aftab Murphy [facility] 09:14:00 Hospital MAGNESIUM LEVEL 2021-05-25 Aftab Murphy [facility] 09:14:00 Hospital PHOSPHORUS LEVEL 2021-05-25 Aftab Murphy [facility] 09:14:00 Hospital ESTIMATED GFR 2021-05-25 Aftab Murphy [facility] 09:14:00 Hospital CBC HEMOGRAM 2021-05-24 Angeline Tellez [facility] 19:05:00 Hospital BASIC METABOLIC PANEL 2021-05-24 Geoff, Angeline [facility] 19:05:00 Hospital MAGNESIUM LEVEL 2021-05-24 Geoff, Angeline [facility] 19:05:00 Hospital PHOSPHORUS LEVEL 2021-05-24 Geoff, Angeline [facility] 19:05:00 Hospital PROTHROMBIN TIME WITH INR 2021-05-24 Geoff, Angeline Method ist 19:05:00 Hospital PARTIAL THROMBOPLASTIN TIME (PTT) 2021-05-24 Lorin Tellezre e Shinto 19:05:00 Hospital ESTIMATED GFR 2021-05-24 Geoff, Angeline [facility] 19:05:00 Hospital HC COMPLETE BLD COUNT W/AUTO DIFF 2021-05-23 Alpesh Granados 19:23:00 Hospital COMPREHENSIVE METABOLIC PANEL 2021-05-23 Alpesh Granados thodist 19:23:00 Hospital ESTIMATED GFR 2021-05-23 Darwin, Alpesh Carballo 19:23:00 [facility] COVID-19 QUALITATIVE RT-PCR 2021-05-23 Alpesh Granados 18:40:00 [facility] SURGICAL PATHOLOGY REQUEST 2021-05-18 Nawaf Wynn Meth odist 19:03:00 Hospital VITAMIN D 25 HYDROXY LEVEL 2021-05-13 Alpesh Granadoso dist 15:30:00 Hospital BASIC METABOLIC PANEL 2021-05-13 Alpesh Granados 15:30:00 Hospital ALBUMIN LEVEL 2021-05-13 Alpesh Granados 15:30:00 Hospital HCG QUANTITATIVE, SERUM 2021-05-13 Alpesh Granados t 15:30:00 Hospital ESTIMATED GFR 2021-05-13 Darwin, Alpesh Carballo 15:30:00 Hospital EXTERNAL PROVIDER - ADC CARDIOLOGY 2021-04-29 Doctor Candy reaves [facility] 05:01:00 [place] [facility] PET CT SKULL BASE TO MID THIGH 2021-04-18 Alpesh Granados ethodist 15:02:47 Hospital POC GLUCOSE 2021-04-18u, Alpesh Carballo 13:41:00 Hospital CONSENT/REFUSAL FOR DIAGNOSIS AND 2021-04-16 Doctor Zafar powell, [facility] 21:32:41 [place] [facility] CV RIGHT AND LEFT HEART CATH 2021-04-16 Lottie Kraft [facility] SELECTIVE CORONARY LV GRAM 00:11:05 Hospi martha ECG 12-LEAD 2021-04-14, Alpesh Carballo 20:29:03 Hospital SPIROMETRY, LUNG VOLUMES, 2021-04-14, Alpesh Limon ist MIPS/MEPS 19:11:27 Hospital SIX MINUTE WALK W/ PULSE OXIMETRY 2021-04-14, Alpesh Carballo 18:27:27 Hospital ARTERIAL BLOOD GAS, PULMONARY FUNC 2021-04-14, Alpesh Carballo DEPT 17:29:00 [facility] US CAROTID DUPLEX BILATERAL 2021-04-14, Alpesh Meth odist 14:00:00 Hospital ABORH - TRANSPLANT 2021-04-12, Alpesh Carballo 13:45:00 Hospital URINE CULTURE 2021-04-12, Alpesh Carballo 13:25:00 Hospital VITAMIN D 1,25 DIHYDROXY LEVEL, 2021-04-12, Alpesh Carballo SERUM 13:25:00 Hospital ZINC LEVEL, SERUM 2021-04-12, Alpesh Carballo 13:25:00 Hospital C-REACTIVE PROTEIN 2021-04-12, Alpesh Carballo 13:25:00 Hospital HC COMPLETE BLD COUNT W/AUTO DIFF 2021-04-12, Alpesh Carballo 13:25:00 Hospital BASIC METABOLIC PANEL 2021-04-12, Alpesh Carballo 13:25:00 Hospital HEPATIC FUNCTION PANEL 2021-04-12, Alpesh Carballo 13:25:00 Hospital ANTINUCLEAR ANTIBODIES (DEMI) WITH 2021-04-12, Alpesh Carballo REFLEX TO TITER AND PATTERN, 13:25:00 [facility] pital IMMUNOFLUORESCENCE IONIZED CALCIUM 2021-04-12, Alpesh Carballo 13:25:00 Hospital MAGNESIUM LEVEL 2021-04-12, Alpesh Carballo 13:25:00 Hospital PHOSPHORUS LEVEL 2021-04-12, Alpesh Carballo 13:25:00 Hospital FIBRINOGEN 2021-04-12, Alpesh Carballo 13:25:00 Hospital HEMOGLOBIN A1C 2021-04-12u, Alpesh Carballo 13:25:00 Hospital HEMOGLOBIN ELECTROPHORESIS WITH 2021-04-12 Darwin, Alpesh Carballo HGB HCT AND RBC 13:25:00 Hospital LDH 2021-04-12u, Alpesh Carballo 13:25:00 Hospital LIPID PANEL 2021-04-12, Alpesh Carballo 13:25:00 Hospital NICOTINE AND COTININE, SERUM 2021-04-12, Alpesh Valle hoddane 13:25:00 Hospital PARATHYROID HORMONE 2021-04-12u, Alpesh Carballo 13:25:00 Hospital PREALBUMIN LEVEL 2021-04-12u, Alpesh Carballo 13:25:00 Hospital SYPHILIS TREPONEMA SCREEN WITH RPR 2021-04-12, Alpesh Carballo CONFIRMATION (REVERSE ALGORITHM) 13:25:00 Hospital SERUM ELECTROPHORESIS 2021-04-12, Alpesh Carballo 13:25:00 Hospital SEDIMENTATION RATE 2021-04-12, Alpesh Carballo 13:25:00 Hospital THYROID STIMULATING HORMONE 2021-04-12u, Alpesh Salazar odist 13:25:00 Hospital T3 2021-04-12 Darwin, Alpesh Carballo 13:25:00 Hospital T4 2021-04-12 Darwin, Alpesh Carballo 13:25:00 Hospital T4, FREE 2021-04-12, Alpesh Carballo 13:25:00 Hospital TOXOPLASMA GONDII ANTIBODY, IGG 2021-04-12, Alpesh Carballo 13:25:00 Hospital TOXOPLASMA IGM AB 2021-04-12, Alpesh Carballo 13:25:00 Hospital URIC ACID LEVEL 2021-04-12, Alpesh Carballo 13:25:00 Hospital CYTOMEGALOVIRUS AB, IGG 2021-04-12u, Alpesh Cortez t 13:25:00 Hospital CECILIA-KAPADIA VIRUS ANTIBODY TEST 2021-04-12, Alpesh Carballo 13:25:00 Hospital HSV 1 & 2 GLYCOPROTEIN G AB, IGG 2021-04-12u, Alpesh Carballo 13:25:00 Hospital HSV TYPE 1/2 COMBINED AB, IGM 2021-04-12u, Alpesh Morin thodist 13:25:00 Hospital HIV 1/2 ANTIGEN/ANTIBODY, FOURTH 2021-04-12, Alpesh Carballo GENERATION, WITH REFLEXES 13:25:00 Hospit al HEPATITIS ACUTE PANEL 2021-04-12, Alpesh Carballo 13:25:00 Hospital HEPATITIS B SURFACE AB, 2021-04-12, Alpesh Cortez t QUANTITATIVE 13:25:00 Hospital HEPATITIS B CORE ANTIBODY TOTAL 2021-04-12, Alpesh Carballo 13:25:00 Hospital HEPATITIS A ANTIBODY TOTAL 2021-04-12, Alpesh Salazaro dist 13:25:00 Hospital VARICELLA ZOSTER VIRUS AB, IGM 2021-04-12, Alpesh Shaw ethodist 13:25:00 Hospital LUPUS ANTICOAGULANT PANEL 2021-04-12, Alpesh Limon ist 13:25:00 Hospital ANTI-NEUTROPHILIC CYTOPLASMIC ABS 2021-04-12, Alpesh Carballo PANEL 13:25:00 Hospital CYCLIC CITRULLINATED PEPTIDE AB, 2021-04-12, Alpesh Carballo IGG 13:25:00 Hospital ALDOLASE, SERUM 2021-04-12, Alpesh Carballo 13:25:00 Hospital CENTROMERE ANTIBODY 2021-04-12, Alpesh Carballo 13:25:00 Hospital DOUBLE-STRANDED DNA (DSDNA) 2021-04-12, Alpesh reddy ANTIBODIES, CRITHIDIA 13:25:00 Hospital ALONDRA-1 ANTIBODY 2021-04-12, Alpesh Carballo 13:25:00 Hospital C4 COMPLEMENT COMPONENT 2021-04-12, Alpesh rod 13:25:00 Hospital RHEUMATOID FACTOR 2021-04-12, Alpesh Carballo 13:25:00 Hospital FERRITIN LEVEL 2021-04-12, Alpesh Carballo 13:25:00 Hospital FOLATE LEVEL 2021-04-12, Alpesh Carballo 13:25:00 Hospital HAPTOGLOBIN 2021-04-12, Alpesh Carballo 13:25:00 Hospital PERIPHERAL SMEAR 2021-04-12, Alpesh Carballo 13:25:00 Hospital TOTAL IRON BINDING CAPACITY 2021-04-12, Alpesh Salazar odist 13:25:00 Hospital VITAMIN B12 LEVEL 2021-04-12, Alpesh Carballo 13:25:00 Hospital URINALYSIS SCREEN AND MICROSCOPY, 2021-04-12, Alpesh Carballo WITH REFLEX TO CULTURE 13:25:00 Hospital TYPE AND SCREEN 2021-04-12, Alpesh Carballo 13:25:00 Hospital ESTIMATED GFR 2021-04-12u, Alpesh Carballo 13:25:00 Hospital SINGLE ANTIGEN BEADS 2021-04-12, Alpesh Carballo 13:25:00 Hospital MISCELLANEOUS REFERRAL TEST 2021-04-12, Alpesh Salazar odist 13:25:00 Hospital CREATININE CLEARANCE, URINE, 24 2021-04-12, Alpesh Carballo HOUR 13:25:00 Hospital COVID-19 QUALITATIVE RT-PCR 2021-04-12 Guillermo, Apoor Martin odist 12:54:00 Hospital TB T-SPOT 2021-04-12, Alpesh Carballo 12:25:00 Hospital COMPLEMENT ACTIVITY, TOTAL 2021-04-12, Alpesh Salazaro dist 12:25:00 Hospital ANGIOTENSIN CONVERTING ENZYME 2021-04-12, Alpesh Morin thodist 12:25:00 Hospital HYPERSENSITIVITY PNEUMONITIS I 2021-04-12, Alpesh Shaw ethodist 12:25:00 Hospital HYPERSENSITIVITY PNEUMONITIS II 2021-04-12, Alpesh Carballo 12:25:00 Hospital HLA TYPING 2021-04-12, Alpesh Carballo 12:25:00 Hospital C1Q CLASS 1 & 2 ANTIBODY 2021-04-12, Alpesh Lin st 12:25:00 Hospital FL FLUOROSCOPY OF DIAPHRAGM NO 2021-04-11, Alpesh Shaw ethodist FILMS 21:15:00 [facility] FL ESOPHAGRAM SINGLE CONTRAST 2021-04-11, Alpesh Morin thodist 21:05:00 Hospital NM CARDIAC SHUNT EVALUATION 2021-04-11, Alpesh Salazar odist 20:04:00 Hospital NM LUNG PERFUSION QUANT W IMG 2021-04-11, Alpesh Morin thodist 20:03:00 Hospital US ABDOMEN COMPLETE 2021-04-11, Alpesh Carballo 18:13:00 Hospital XR PANOREX 2021-04-11, Alpesh Carballo 16:28:00 Hospital XR CHEST 2 VW 2021-04-11, Alpesh Carballo 16:12:00 Hospital BONE DENSITY 2021-04-11, Alpesh Carballo 16:02:[address] CHEST WO CONTRAST 2021-04-11, Alpesh Carballo 15:18:00 Hospital TTE COMPLETE W AGITATED SALINE W 2021-04-11 Alpesh Granados Shinto CONT W DOP 14:39:07 Hospital CONSENT/REFUSAL FOR DIAGNOSIS AND 2021-04-07 Doctor Zafar powell, [facility] 16:53:02 [place] [facility] ASSIGNMENT OF BENEFITS 2021-04-07 Doctor Rosalinda, [facility] of 16:52:46 [place] [facility] MEDICAL RELEASE/CLEARANCE FORMS 2021-03-18 Doctor Hawk duarte [facility] 06:01:00 [place] [facility] MAGNESIUM 2021-03-[address] [facility] 09:45:00 [facility] BASIC METABOLIC PANEL (NA, K, CL, 2021-03-15 Janie Odonnell [facility] CO2, GLUCOSE, BUN, CREATININE, CA) 09:45:00 [facility] CBC WITH DIFF 2021-03-15 Priyank Odonnell [place] of 09:45:00 [facility] PHOSPHORUS 2021-03-14 [facility] [place] of 10:18:00 [facility] MAGNESIUM 2021-03-14 [facility] of 10:18:00 [facility] BASIC METABOLIC PANEL (NA, K, CL, 2021-03-14 [facility] CO2, GLUCOSE, BUN, CREATININE, CA) 10:18:00 [facility] FECES CULTURE 2021-03-13 Priyank Odonnell [place] of 16:15:00 [facility] CLOSTRIDIUM DIFFICILE TOXIN 2021-03-13 Priyank Odonnell [facility] of 16:15:00 [facility] BASIC METABOLIC PANEL (NA, K, CL, 2021-03-13 Janie beach [facility] CO2, GLUCOSE, BUN, CREATININE, CA) 12:29:00 [facility] CBC WITH DIFF 2021-03-13 Priyank beach [place] of 12:29:00 [facility] PNEUMOCOCCAL ANTIGEN 2021-03-12 Haresh Casarez [place] of 04:26:00 [facility] MAGNESIUM 2021-03-11 Umberto [facility] of 11:06:00 [facility] BASIC METABOLIC PANEL (NA, K, CL, 2021-03-11 Aric Casarez n [employer] of CO2, GLUCOSE, BUN, CREATININE, CA) 11:06:00 [facility] CBC WITH DIFF 2021-03-11 [facility] of 11:06:00 [facility] MRSA / MSSA SCREEN BY PCR, MERA 2021-03-11 Jose Cruz Garcia [place] of 11:06:00 [facility] PHOSPHORUS 2021-03-11 [facility] of 00:35:00 [facility] COVID-19 (ID NOW RAPID TESTING) 2021-03-10 [facility] of 17:41:00 [facility] LAB ONLY COVID INTERPRETATION 2021-03-10 Edward Reis [facility] of 17:41:00 [facility] XR CHEST 1 VW 2021-03-10 [facility] of 15:32:47 [facility] LIPASE 2021-03-10 [facility] of 15:22:00 [facility] TROPONIN I 2021-03-10 [facility] of 15:22:00 [facility] COMP. METABOLIC PANEL (35092) 2021-03-10 Edward Reis [facility] of 15:22:00 [facility] CBC WITH DIFF 2021-03-10 [facility] of 15:22:00 [facility] PROTHROMBIN TIME / INR 2021-03-10 Edward Reis [employer] [employer] of 15:22:00 [facility] ACTIVATED PARTIAL THRMPLAS LORRIE 2021-03-10 Edward Reis [employer] of 15:22:00 [facility] HB ECG ROUTINE & RHYTHM STRIP 2021-03-10 Edward Reis [facility] of 15:19:21 [facility] CONSENT/REFUSAL FOR DIAGNOSIS AND 2021-03-10 Doctor Zafar powell [facility] 15:02:16 [place] [facility] HOSPITAL ADMISSION 2021-03-10 Doctor Rosalinda, [facility] 06:01:00 [place] [facility] AUTHORIZATION FOR RELEASE OF PHI 2021-02-21 Doctor Unassign ed, [facility] 06:01:00 [place] [facility] EXTERNAL PROVIDER - ADC REFERRAL 2021-01-20 Doctor Unassign , [facility] 06:01:00 [place] [facility] CT CHEST EXTERNAL STUDY 2020-12-[address] 19:33:00 Hospital ECG 12-LEAD 2020-11-29 Fernanda Guillermo [facility] 17:14:[address] CHEST EXTERNAL STUDY 2020-11-23 Nawaf Wynn 16:06:00 Hospital Tonsillectomy 1973-02-05 [facility] 00:00:00 Hysterectomy [facility] Open Reduction of Fracture of Pr [facility] Plan of Care Planned Activity Planned Date Details Comments Source Future Scheduled 2022-07-10 Screening for [facility] Test 10:58:37 malignant neoplasm of colon (procedure) [code = 924891101] Future Scheduled 2022-07-10 Screening for [facility] Test 10:58:37 malignant neoplasm of colon (procedure) [code = 256069675] Future Scheduled 2022-07-10 Screening for [facility] Test 10:58:37 malignant neoplasm of cervix (procedure) [code = 900848260] Future Scheduled 2022-07-10 Screening for [facility] Test 10:58:37 malignant neoplasm of lung (procedure) [code = 964664781] Future Scheduled 2022-07-10 Screening for [facility] Test 10:58:37 malignant neoplasm of colon (procedure) [code = 391574613] Future Scheduled 2022-07-10 SHINGLES VACCINES (2 [facility] Test 10:58:37 of 3) [code = SHINGLES VACCINES (2 of 3)] Future Scheduled 2022-07-10 INFLUENZA VACCINE [facility] Test 10:58:37 [code = INFLUENZA VACCINE] Future Scheduled 2022-07-10 BREAST CANCER [facility] Test 10:58:37 SCREENING [code = BREAST CANCER SCREENING] Future Scheduled 2022-07-10 Pneumococcal Vaccine: [facility] Test 10:58:37 Pediatrics (0 to 5 Years) and At-Risk Patients (6 to 64 Years) (3 - PPSV23 if available, else PCV20) [code = Pneumococcal Vaccine: Pediatrics (0 to 5 Years) and At-Risk Patients (6 to 64 Years) (3 - PPSV23 if available, else PCV20)] Future Scheduled 2022-07-10 Screening for [facility] Test 10:58:37 malignant neoplasm of colon (procedure) [code = 316662527] Future Scheduled 2022-07-10 [facility]ening for [facility] Test 10:58:37 malignant neoplasm of colon (procedure) [code = 293762251] Future Scheduled 2021-11-23 HEPATITIS B VACCINES Met [facility] Test 21:26:10 (1 of 3 - 3-dose series) [code = HEPATITIS B VACCINES (1 of 3 - 3-dose series)] Future Scheduled 2021-11-23 Screening for [facility] Test 21:26:10 malignant neoplasm of cervix (procedure) [code = 992023226] Future Scheduled 2021-11-23 BREAST CANCER [facility] Test 21:26:10 SCREENING [code = BREAST CANCER SCREENING] Future Scheduled 2021-11-23 COLONOSCOPY SCREENING [facility] Test 21:26:10 [code = COLONOSCOPY SCREENING] Future Scheduled 2021-11-23 SHINGLES VACCINES (1 [facility] Test 21:26:10 of 2) [code = SHINGLES VACCINES (1 of 2)] Future Scheduled 2021-11-23 COVID-19 VACCINE (2 - [facility] Test 21:26:10 Pfizer series) [code = COVID-19 VACCINE (2 - Pfizer series)] Future Scheduled 2021-11-23 INFLUENZA VACCINE [facility] Test 21:26:10 [code = INFLUENZA VACCINE] Future Scheduled 2021-11-23 Pneumococcal Vaccine: [facility] Test 21:26:10 Pediatrics (0 to 5 Years) and At-Risk Patients (6 to 64 Years) (3 - PPSV23 if available, else PCV20) [code = Pneumococcal Vaccine: Pediatrics (0 to 5 Years) and At-Risk Patients (6 to 64 Years) (3 - PPSV23 if available, else PCV20)] Future Scheduled 2021-08-10 COVID-19 Vaccination [facility] Test 03:53:43 (#1) [code = COVID-19 MD And erson Cancer Vaccination (#1)] Center Diagnostic Test 2020-06-03 culture, sputum [code Mere via Medical Pending 00:00:00 = culture, sputum] Encounters Start End Encounter Admission Attending Care Care Encounter Source Date/Time Date/Time Type Type Clinicians Facility Department ID 2021-03-03 Outpatient 3 [id number] ENCPL REF [id number] [facility] 13:19:49 [facility] [place] 2021-01-03 Outpatient READMISSIO JULIA ENCCLR ENCCLR [id number] ENCCLR 14:31:15 N DEMI JAIMES 2021-01-03 Outpatient READMISSIO ENCGEN ENCGEN [id number] ENCGEN 13:24:39 N 2020-12-07 Emergency [facility] [id number] Univers 07:53:58 ity of [facility] 2020-12-06 Emergency [facility] [id number] Univers 05:50:24 ity of [facility] 2020-12-06 Emergency [facility] [id number] Univers 00:32:42 ity of [facility] 2020-12-05 Emergency [facility] [id number] Univers 17:40:10 ity of [facility] 2020-12-03 Emergency [facility] [id number] Univers 12:41:22 ity [facility] 2022-07-10 2022-07-10 Documentat Kingsley 1.2.840.1 [id number] Methodi 00:00:00 00:00:00 ion Nawaf Blair 93691.1.[address] 3.430.2.7 Hospit a .3.330166 l .8 2022-06-22 2022-07-06 Office Nawaf Wynn 1.2.840.1 [id number] Methodi 12:30:00 15:16:59 Visit SujataRachel Avtar 27675.1.[address] 3.430.2.7 Hospit a .3.119250 l .8 2022-07-04 2022-07-04 Orders Loree 1.2.840.1 [id number] Methodi 00:00:00 00:00:00 Only Angelica 12202.1.[address] 3.430.2.7 Hospit a .3.637311 l .8 2022-06-28 2022-06-28 Refill Loree 1.2.840.1 [id number] Methodi 00:00:00 00:00:[address] 3.430.2.7 Hospit a .3.037854 l .8 2022-06-26 2022-06-26 Telephone Moy, 1.2.840.1 [id number] Methodi 00:00:00 00:00:[address] 3.430.2.7 Hospit a .3.985938 l .8 2022-06-23 2022-06-23 Documentat Kwesi, 1.2.840.1 [id number] Methodi 00:00:00 00:00:00 ion Gina 39267.1.[address] 3.430.2.7 Hospit a .3.916282 l .8 2022-06-22 2022-06-22 [facility] Wynn, 1.2.840.1 [id number] Methodi 09:30:00 23:59:00 Encounter Nawaf Blair 88397.1.[address] 3.430.2.7 Hospit a .3.996324 l .8 2022-06-22 2022-06-22 [facility], 1.2.840.1 [id number] Methodi 08:00:00 09:29:00 Encounter Nawaf Blair 08194.1.[address] 3.430.2.7 Hospit a .3.449360 l .8 2022-06-22 2022-06-22 Outpatient [facility] [id number] [place] 00:00:00 00:00:00 NAWAF [address] 2022-06-22 2022-06-22 Outpatient [facility] [id number] [place] 00:00:00 00:00:00 NAWAF [address] 2022-06-22 2022-06-22 Outpatient [facility] [id number] 285 [place] 00:00:00 00:00:00 NAWAF 950 Method i 2022-06-22 2022-06-22 Outpatient [facility] [id number] [place] 00:00:00 00:00:00 NAWAF [address] 2022-06-22 2022-06-22 Travel 1.2.840.1 1.2.212.756 [id number] Methodi 00:00:00 00:00:[address] 3.430.2.7 0.2.7.3.698 marcelinota .3.802247 084.8 l .8 2022-06-15 2022-06-15 Documentat Breezy, 1.2.840.1 [id number] Methodi 00:00:00 00:00:00 ion Fanta 86813.1.[address] 3.430.2.7 Hospit a .3.267676 l .8 2022-06-13 2022-06-13 Orders Loree, 1.2.840.1 [id number] 2396 Methodi 00:00:00 00:00:00 Only Angelica 26865.1.[address] 3.430.2.7 Hospit a .3.514341 l .8 2022-05-11 2022-05-11 [facility], 1.2.840.1 [id number] 99199 Methodi 09:55:57 23:59:00 Encounter Nawaf Rudolph50.1.[address] 3.430.2.7 Hospit a .3.560271 l .8 2022-05-11 2022-05-11 Office Alpesh Granados 1.2.840.1 [id number] Methodi 14:00:00 14:15:[address] 3.430.2.7 Hospit a .3.029099 l .8 2022-05-11 2022-05-11 [facility], 1.2.840.1 [id number] Methodi 08:00:00 09:54:00 Encounter Nwaaf Blair [address]474.1.[address] 3.430.2.7 Hospit a .3.214210 l .8 2022-05-11 2022-05-11 [facility] 1.2.840.1 [id number] Methodi 07:30:00 07:59:00 Encounter Nawaf Blair [address]9063.1.[address] 3.430.2.7 Hospit a .3.851833 l .8 2022-05-11 2022-05-11 [facility] [id number] [address] [place] [address] 00:00:00 00:00:00 NAWAF [address] 2022-05-11 2022-05-11 Outpatient KINGSLEY, [facility] [id number] 569 [place] 00:00:00 00:00:00 NAWAF Mahoney [facility] 2022-05-11 2022-05-11 Outpatient KINGSLEY, [facility] [id number] 569 [place] 00:00:00 00:00:00 NAWAF Blevins Method i 2022-05-11 2022-05-11 Outpatient KINGSLEY, [facility] [id number] 569 [place] 00:00:00 00:00:00 NAWAF Mccarthy Method i 2022-05-11 2022-05-11 Outpatient KINGSLEY, [facility] [id number] 570 [place] 00:00:00 00:00:00 NAWAF Calles Method i 2022-05-11 2022-05-11 Outpatient ALPESH GRANADOS [facility] [id number] [place] 00:00:00 00:00:00 872 Method i 2022-05-11 2022-05-11 Documentat Loree, 1.2.840.1 [id number] [id number] Methodi 00:00:00 00:00:00 ion Angelica [address]154.1.[address] 3.430.2.7 Hospit a .3.529789 l .8 2022-05-11 2022-05-11 Travel 1.2.840.1 1.2.202.523 2115 [id number] Methodi 00:00:00 00:00:[address] 3.430.2.7 0.2.7.3.698 Ho spita .3.777217 084.8 l .8 2022-05-05 2022-05-05 Orders Doctor LUIS 1.2.840.[id number] [place] [address] 00:00:00 00:00:00 Only Unassigned, LUCILLE 350.1.13.10 [facility] [place] [facility] 4.2.7.2.686 Lj as [id number] [place] [address] [place] 2022-05-05 2022-05-05 Documentat Kwesi, 1.2.840.1 [id number] 052 [id number] Methodi 00:00:00 00:00:00 ion Gina 31207.1.[address] 3.430.2.7 Hospit a .3.867387 l .8 2022-05-05 2022-05-05 Telephone Blasavanah, 1.2.840.1 [id number] 2100 [id number] Methodi 00:00:00 00:00:[address] 3.430.2.7 Hospit a .3.161160 l .8 2022-05-04 2022-05-04 Telemedici Nelda, 1.2.840.1 [id number] 21 [id number] Methodi 13:15:00 13:38:04 ne Elaine 03243.1.[address] [place] 3.430.2.7 Hospit a .3.010497 l .8 2022-05-04 2022-05-04 Outpatient [facility] [id number] 6344 [place] 00:00:00 00:00:[address] ELA[address] 2022-05-03 2022-05-03 Telephone Sunday, 1.2.840.1 [id number] 2100 810479 Methodi 00:00:00 00:00:[address] 3.430.2.7 Hospit a .3.889246 l .8 2022-04-26 2022-04-27 [facility] 1.2.840.1 95070 1035 [id number] Methodi 05:54:00 12:22:00 Encounter Demi Cuello 14854.1.[address] Aftab Murphy 3.430.2.7 Hospita .3.953607 l .8 2022-04-26 2022-04-27 Outpatient [facility] 786 [id number] 002 [place] 00:00:00 00:00:00 AFTAB [address] 2022-04-26 2022-04-26 Anesthesia Luis Valencia 1.2.840.1 1 [id number] Methodi 08:11:00 10:44:00 Event Maryellen Roach 19774.1.[address] 3.430.2.7 Hospit a .3.064884 l .8 2022-04-26 2022-04-26 Surgery Hamilton, 1.2.840.1 [id number] 746049 9561 Methodi 08:00:00 10:05:[address] 3.430.2.7 Hospit a .3.943435 l .8 2022-04-26 2022-04-26 Documentat Loree, 1.2.840.1 [id number] 692 5357600 Methodi 00:00:00 00:00:00 ion Angelica 34265.1.[address] 3.430.2.7 Hospit a .3.667356 l .8 2022-04-26 2022-04-26 Documentat Loree, 1.2.840.1 [id number] 284 4100055 Methodi 00:00:00 00:00:00 ion Angelica 99494.1.[address] 3.430.2.7 Hospit a .3.137237 l .8 2022-04-26 2022-04-26 Travel 1.2.840.1 1.2.397.746 2084 709100 Methodi 00:00:00 00:00:[address] 3.430.2.7 0.2.7.3.698 Ho spita .3.203033 084.8 l .8 2022-04-24 2022-04-24 [facility], 1.2.840.1 [id number] 69461 70708 Methodi 10:00:00 23:59:00 Encounter Nawaf Blair 87678.1.[address] 3.430.2.7 Hospit a .3.517275 l .8 2022-04-24 2022-04-24 Office Rachel Vyas 1.2.840.1 09737 1234 [id number] Methodi 13:00:00 13:15:00 Visit Simran Carr 14189.1.[address] 3.430.2.7 Hospit a .3.477719 l .8 2022-04-24 2022-04-24 [facility], 1.2.840.1 [id number] 58036 55415 Methodi 08:30:00 09:59:00 Encounter Nawaf Blair 18348.1.[address] 3.430.2.7 Hospit a .3.978742 l .8 2022-04-24 2022-04-24 [facility], 1.2.840.1 [id number] 48063 88030 Methodi 06:42:07 08:29:00 Encounter Nawaf Blair 81690.1.[address] 3.430.2.7 Hospit a .3.684422 l .8 2022-04-24 2022-04-24 Outpatient WYNN, [facility] [id number] 097 [place] 00:00:00 00:00:00 NAWAF [address] 2022-04-24 2022-04-24 Outpatient WYNN, [facility] [id number] 097 [place] 00:00:00 00:00:00 NAWAF [address] 2022-04-24 2022-04-24 Outpatient WYNN, [facility] [id number] 097 [place] 00:00:00 00:00:00 NAWAF [address] 2022-04-24 2022-04-24 Outpatient [facility], [facility] [id number] 138 [place] 00:00:00 00:00:00 NAWAF [address] 2022-04-24 2022-04-24 Outpatient [facility], [facility] [id number] 073 [place] 00:00:00 00:00:00 RACHEL [address] 2022-04-24 2022-04-24 Orders Loree, 1.2.840.1 [id number] 1741 Methodi 00:00:00 00:00:00 Only Angelica 72416.1.[address] 3.430.2.7 Hospit a .3.837700 l .8 2022-04-24 2022-04-24 Refill Loree, 1.2.840.1 [id number] 085463 1506 Methodi 00:00:00 00:00:[address] 3.430.2.7 Hospit a .3.641661 l .8 2022-04-24 2022-04-24 Refill Loree, 1.2.840.1 [id number] 912509 1052 Methodi 00:00:00 00:00:[address] 3.430.2.7 Hospit a .3.775248 l .8 2022-04-24 2022-04-24 Travel 1.2.840.1 1.2.993.735 4760 577743 Methodi 00:00:00 00:00:[address] 3.430.2.7 0.2.7.3.698 Ho spita .3.863607 084.8 l .8 2022-04-20 2022-04-20 Telephone Darci, 1.2.840.1 [id number] 2100 887998 Methodi 00:00:00 00:00:[address] 3.430.2.7 Hospit a .3.988409 l .8 2022-04-12 2022-04-12 Pre-Admiss Cesar Hamilton 1.2.840.1 104 813590 [id number] Methodi 12:00:00 13:00:[address] 11450.1.[address] Testing 3.430.2.7 Hospit a .3.810706 l .8 2022-04-12 2022-04-12 Outpatient [facility] [id number] 190 [place] 00:00:00 00:00:00 CESAR [address] 2022-04-12 2022-04-12 Travel 1.2.840.1 1.2.862.248 7133 477209 Methodi 00:00:00 00:00:[address] 3.430.2.7 0.2.7.3.698 Ho spita .3.941766 084.8 l .8 2022-04-07 2022-04-07 Travel 1.2.840.1 1.2.129.237 5455 991620 Methodi 00:00:00 00:00:[address] 3.430.2.7 0.2.7.3.698 Ho spita .3.243272 084.8 l .8 2022-04-04 2022-04-04 Documentat Loree, 1.2.840.1 [id number] 293 3619775 Methodi 00:00:00 00:00:00 ion [address]2659.1.[address] 3.430.2.7 Hospit a .3.577015 l .8 2022-04-04 2022-04-04 Refill Loree, 1.2.840.1 [id number] 582933 1783 Methodi 00:00:00 00:00:[address] 3.430.2.7 Hospit a .3.184796 l .8 2022-04-04 2022-04-04 Refill Loree, 1.2.840.1 [id number] 999797 5297 Methodi 00:00:00 00:00:[address] 3.430.2.7 Hospit a .3.276719 l .8 2022-04-03 2022-04-03 Outpatient R RADIOLOGY [facility] 07878 80685 Univers 12:15:13 23:59:00 ity of [facility] 2022-04-03 2022-04-03 Hospital Radiology [facility] 1.2.840.114 999 59572 Univers 12:15:13 23:59:00 Encounter [place] 350.1.13.10 ity of [place] 4.2.7.2.686 [facility] [id number] [facility] [address] 2022-04-03 2022-04-03 Orders Doctor LUIS 1.2.840.114 [id number] 755 Univers 00:00:00 00:00:00 Only Unassigned, LUCILLE 350.1.13.10 ity of [place] [facility] 4.2.7.2.686 Lj [id number] [facility] [address] 2022-03-26 2022-04-02 [facility] Karian Pettit 1.2.840.1 [id number] 21 [id number] Methodi 09:00:00 12:18:00 Encounter Rickie Santana 79955.1.[address] 3.430.2.7 Hospit a .3.396806 l .8 2022-04-02 2022-04-02 Orders Edith 1.2.840.1 [id number] 92754 48962 Methodi 00:00:00 00:00:00 Only Timalianna 76850.1.[address] Varinder 3.430.2.7 Hospit a .3.960379 l .8 2022-03-26 2022-04-02 Inpatient NELSY INES [facility] 064 94153 63572 [place] 00:00:00 00:00:[address] 2022-03-31 2022-03-31 Documentat James 1.2.840.1 [id number] 194 7502101 Methodi 00:00:00 00:00:00 ion Katie 07103.1.[address] 3.430.2.7 Hospit a .3.492132 l .8 2022-03-28 2022-03-28 Orders Doctor GOMEZ 1.2.840.114 [id number] 795 Univers 00:00:00 00:00:00 Only Unassigned, LUCILLE 350.1.13.10 ity of [place] [facility] 4.2.7.2.686 Lj as [id number] [place] [address] [address] 2022-03-27 2022-03-27 Anesthesia Demetrius Jaquez 1.2.840.1 [id number] Methodi 13:40:00 14:48:00 Event Dionne Patiño 50155.1.[address] 3.430.2.7 Hospit a .3.261804 l .8 2022-03-27 2022-03-27 Surgery Nelda 1.2.840.1 [id number] 53097 87402 Methodi 12:30:00 13:30:[address] [place] 3.430.2.7 Hospit a .3.937006 l .8 2022-03-26 2022-03-26 Travel 1.2.840.1 1.2.180.616 4317 673688 Methodi 00:00:00 00:00:[address] 3.430.2.7 0.2.7.3.698 Ho spita .3.015571 084.8 l .8 2022-03-22 2022-03-22 Telephone Jinny, 1.2.840.1 [id number] 418 0670799 Methodi 00:00:00 00:00:[address] 3.430.2.7 Hospit a .3.931223 l .8 2022-03-17 2022-03-17 Emergency X [facility] [id number] 23 Univers 14:59:00 18:15:00 EDWARD quintero [facility] 2022-03-17 2022-03-17 Emergency [facility] 1.2.898.922 4889 80970 Univers 14:59:00 18:15:00 Edward MENCHACA 350.1.13.10 i ty [facility] 4.2.7.2.686 [facility] [phone] [address] 2022-03-16 2022-03-16 Office Nelda 1.2.840.1 [id number] 76938 57092 Methodi 10:30:00 10:30:00 Visit Elaine 30501.1.[address] [place] 3.430.2.7 Hospit a .3.267895 l .8 2022-03-16 2022-03-16 Outpatient [facility] [id number] 5960 [place] 00:00:00 00:00:00 ELAINE [address] 2022-03-16 2022-03-16 Travel 1.2.840.1 1.2.700.873 9558 158395 Methodi 00:00:00 00:00:[address] 3.430.2.7 0.2.7.3.698 Ho spita .3.104498 084.8 l .8 2022-03-13 2022-03-13 Telemedici Juan, 1.2.840.1 [id number] 21 [id number] Methodi 11:20:00 12:19:07 ne Rainer HErin 60593.1.[address] 3.430.2.7 Hospit a .3.286488 l .8 2022-03-13 2022-03-13 [facility] [id number] 4242 [place] 00:00:00 00:00:00 RAINER [address] 2022-03-04 2022-03-04 Emergency X [facility] ERT [id number] 07 Univers 00:07:00 04:48:00 RAKEL quintero [facility] 2022-03-04 2022-03-04 [facility] 1.2.738.974 4096 02720 Univers 00:07:00 04:48:00 Rakel MENCHACA 350.1.13.10 ity [facility] 4.2.7.2.686 [facility] [phone] [address] 2022-03-01 2022-03-01 Emergency X [facility] ERT [id number] Univers 14:26:00 16:06:00 EDWARD sheikhbrigitte [facility] 2022-03-01 2022-03-01 [facility] 1.2.608.619 2496 39492 Univers 14:26:00 16:06:00 Edward MENCHACA 350.1.13.10 i ty [facility] 4.2.7.2.686 [facility] [phone] [address] 2022-02-28 2022-02-28 Telephone Wing, 1.2.840.1 [id number] 2099 [id number] Methodi 00:00:00 00:00:[address] 3.430.2.7 Hospit a .3.000429 l .8 2022-02-21 2022-02-21 Telephone Darci, 1.2.840.1 [id number] 2099 446519 Methodi 00:00:00 00:00:[address] 3.430.2.7 Hospit a .3.765361 l .8 2022-02-13 2022-02-13 Telephone Jaye, 1.2.840.1 [id number] 21 [id number] Methodi 00:00:00 00:00:[address] 3.430.2.7 Hospit a .3.486404 l .8 2022-02-10 2022-02-10 Telephone Makenan, 1.2.840.1 [id number] 2099 594740 Methodi 00:00:00 00:00:[address] 3.430.2.7 Hospit a .3.841555 l .8 2022-02-10 2022-02-10 Orders Vipin, 1.2.840.1 [id number] 2099 941205 Methodi 00:00:00 00:00:00 Only Breluciana 94877.1.[address] 3.430.2.7 Hospit a .3.719919 l .8 2022-02-03 2022-02-03 Orders Doctor GOMEZ 1.2.840.114 122122 578 Univers 00:00:00 00:00:00 Only Unassigned, LUCILLE 350.1.13.10 ity of [place] [facility] 4.2.7.2.686 Lj as [phone] [place] [address] [address] 2022-01-24 2022-01-24 Orders Vipin, 1.2.840.1 [id number] 2099 [id number] Methodi 00:00:00 00:00:00 Only Brehuna 79851.1.[address] 3.430.2.7 Hospit a .3.692386 l .8 2022-01-24 2022-01-24 Documentat Jeanne, 1.2.840.1 [id number] 026 8750370 Methodi 00:00:00 00:00:00 ion Mariola 99943.1.[address] 3.430.2.7 Hospit a .3.945281 l .8 2022-01-23 2022-01-23 Hospital [facility], 1.2.840.1 [id number] 31977 75719 Methodi 09:00:00 23:59:00 Encounter Nawaf Blair 11961.1.[address] 3.430.2.7 Hospit a .3.855170 l .8 2022-01-23 2022-01-23 Nutrition Sujata, 1.2.840.1 [id number] 2100 954893 Methodi 14:30:00 15:00:00 Ramos Avtar 64731.1.1 647 s t 3.430.2.7 Hospit a .3.462227 l .8 2022-01-23 2022-01-23 Office Alpesh Granados 1.2.840.1 [id number] 576 [id number] Methodi 13:45:00 14:00:00 Visit Rachel Vyas Avtar 27291.1.[address] 3.430.2.7 Hospit a .3.067066 l .8 2022-01-23 2022-01-23 [facility] Wynn 1.2.840.1 [id number] 15147 20917 Methodi 07:23:52 08:59:00 Encounter Nawaf Blair 15856.1.[address] 3.430.2.7 Hospit a .3.729418 l .8 2022-01-23 2022-01-23 Outpatient [facility] [id number] 181 [place] 00:00:00 00:00:00 NAWAF [address] 2022-01-23 2022-01-23 Outpatient [facility] [id number] 179 [place] 00:00:00 00:00:00 NAWAF [address] 2022-01-23 2022-01-23 Outpatient [facility] [id number] 180 [place] 00:00:00 00:00:00 NAWAF [address] 2022-01-23 2022-01-23 Outpatient ALPESH GRANADOS [facility] 2100 [id number] [place] 00:00:00 00:00:[address] 2022-01-23 2022-01-23 Outpatient SUJATA [facility] [id number] 108 [place] 00:00:00 00:00:00 RAMOS [address] 2022-01-23 2022-01-23 Documentat Jeanne, 1.2.840.1 [id number] 423 [id number] Methodi 00:00:00 00:00:00 ion Mari[address] 93440.1.[address] 3.430.2.7 Hospit a .3.230573 l .8 2022-01-23 2022-01-23 Telephone Vipin, 1.2.840.1 [id number] Methodi 00:00:00 00:00:[address] 3.430.2.7 Hospit a .3.208695 l .8 2022-01-23 2022-01-23 Orders Vipin, 1.2.840.1 [id number] 2099 835216 Methodi 00:00:00 00:00:00 Only Jennana 05612.1.[address] 3.430.2.7 Hospit a .3.531257 l .8 2022-01-23 2022-01-23 Travel 1.2.840.1 1.2.133.439 6762 747522 Methodi 00:00:00 00:00:[address] 3.430.2.7 0.2.7.3.698 Ho spita .3.562741 084.8 l .8 2022-01-20 2022-01-20 Telephone Chinmay, 1.2.840.1 [id number] 2099 591161 Methodi 00:00:00 00:00:[address] 3.430.2.7 Hospit a .3.737916 l .8 2022-01-18 2022-01-18 Telephone Chinmay, 1.2.840.1 [id number] 2099739 Methodi 00:00:00 00:00:[address] 3.430.2.7 Hospit a .3.473782 l .8 2022-01-13 2022-01-13 Orders Kwesi, 1.2.840.1 706742785 240471 0577 Methodi 00:00:00 00:00:00 Only Gina 67856.1.[address] 3.430.2.7 Hospit a .3.723807 l .8 2022-01-13 2022-01-13 Orders Blain, 1.2.840.1 [id number] 131858 1734 Methodi 00:00:00 00:00:00 Only Gina 68029.1.[address] 3.430.2.7 Hospit a .3.471634 l .8 2022-01-10 2022-01-10 Office [facility], 1.2.840.1 [id number] 00353 48259 Methodi 09:40:00 10:18:37 Visit Rainer H. 24151.1.[address] 3.430.2.7 Hospit a .3.185326 l .8 2022-01-10 2022-01-10 Outpatient [facility], [facility] [id number] 9726 [place] 00:00:00 00:00:00 RAINER [address] 2022-01-10 2022-01-10 Travel 1.2.840.1 1.2.280.512 1970 379279 Methodi 00:00:00 00:00:[address] 3.430.2.7 0.2.7.3.698 Ho spita .3.920901 084.8 l .8 2022-01-04 2022-01-04 Documentat Breezy, 1.2.840.1 [id number] 21 [id number] Methodi 00:00:00 00:00:00 g[address] Jewell 64626.1.[address] 3.430.2.7 Hospit a .3.936742 l .8 2022-01-04 2022-01-04 Documentat Breezy, 1.2.840.1 [id number] 21 [id number] Methodi 00:00:00 00:00:[address] 3.430.2.7 Hospit a .3.936942 l .8 2022-01-02 2022-01-02 Transition NANDA Yang 1.2.840.[address] [facility] 00:00:00 00:00:00 of Care Carlos DESHPANDE 350.1.13.10 [place] [id number] [facility] [address] 2021-12-27 2021-12-30 Outpatient X NATHALY [facility] AJ [id number] 991 Univers 11:22:00 11:45:00 PREETI ity of [facility] 2021-12-27 2021-12-30 Hospital Stuart Shaikh [facility] 1.2.840.1 14 [id number] Univers 11:22:00 11:45:00 Encounter Ritchie Garcia 350.1.13.10 ity of [place] Preeti [place] 4.2.7.2.686 [facility] [id number] [facility] 081 [address] 2021-12-20 2021-12-20 Documentat Breezy, 1.2.840.1 [id number] 21 [id number] Methodi 00:00:00 00:00:[address].1[address] 3.430.2.7 Hospit a .3.370493 l .8 2021-12-16 2021-12-16 Orders Doctor LUIS 1.2.840.114 [id number] 96 Univers 00:00:00 00:00:00 Only Unassigned, LUCILLE 350.1.13.10 ity of [place] [facility] 4.2.7.2.686 Lj as [id number] [facility] 009 Branch 2021-12-12 2021-12-12 Documentat Breezy, 1.2.840.1 [id number] 21 [id number] Methodi 00:00:00 00:00:00 g[address] Fanta 23664.1.[address] 3.430.2.7 Hospit a .3.957033 l .8 2021-12-09 2021-12-09 Telephone Loree, 1.2.840.1 [id number] 2100 [id number] Methodi 00:00:00 00:00:[address] 3.430.2.7 Hospit a .3.795989 l .8 2021-12-06 2021-12-06 Transition ANNDA Yang 1.2.840.114 979 43837 Univers 00:00:00 00:00:00 of Care Carlos DESHPANDE 350.1.13.10 ity [place] [id number] [facility] [address] 2021-12-05 2021-12-05 [facility] Perry, 1.2.840.1 [id number] 893 [id number] Methodi 10:21:56 23:59:00 Encounter Ahjossd 24101.1.[address] 3.430.2.7 Hospit a .3.074366 l .8 2021-12-05 2021-12-05 Outpatient [facility] 00875 50420 [place] 00:00:00 00:00:00 AHMAD 285 Method i 2021-12-05 2021-12-05 Outpatient [facility] 95019 [place] 00:00:00 00:00:00 AHMAD 286 Method i 2021-12-05 2021-12-05 Outpatient [facility] [id number] 683 [place] 00:00:00 00:00:00 NAWAF 443 Method i 2021-12-05 2021-12-05 Travel 1.2.840.1 1.2.141.363 3884 266453 Methodi 00:00:00 00:00:[address] 3.430.2.7 0.2.7.3.698 Ho spita .3.366323 084.8 l .8 2021-12-03 2021-12-04 Outpatient X ISABELL LAARA [facility] [id number] 751 Univers 17:03:00 18:10:00 RITCHIE ity of [facility] 2021-12-03 2021-12-04 Emergency Carol Patiño G [facility] 1.2.840 .114 [id number] Univers 17:03:00 18:10:00 Ritchie Garcia 350.1.13.10 ity of [place] [id number] [facility] [address] 2021-12-03 2021-12-03 Orders Doctor LUIS 1.2.840.114 [id number] 11 Univers 00:00:00 00:00:00 Only Unassigned, LUCILLE 350.1.13.10 ity of [place] [facility] 4.2.7.2.686 Lj as [id number] [facility] 009 Branch 2021-12-02 2021-12-02 Telephone Loree, 1.2.840.1 [id number] 2100 768009 Methodi 00:00:00 00:00:[address] 3.430.2.7 Hospit a .3.671008 l .8 2021-12-01 2021-12-01 Orders Doctor LUIS 1.2.840.114 [id number] 83 Univers 00:00:00 00:00:00 Only Unassigned, LUCILLE 350.1.13.10 ity of [place] [facility] 4.2.7.2.686 Lj as [id number] [facility] 009 [address] 2021-12-01 2021-12-01 Telephone Leach, 1.2.840.1 [id number] 752 [id number] Methodi 00:00:00 00:00:[address] 3.430.2.7 Hospit a .3.322181 l .8 2021-11-28 2021-11-28 Transition NANDA Yang 1.2.840.114 977 54216 Univers 00:00:00 00:00:00 of Care Carlos COPEY 350.1.13.10 [place] [id number] [facility] [address] 2021-11-24 2021-11-26 Outpatient U [facility] [place] [id number] 5230 Univers 02:59:00 16:39:00 MERCY ity of [facility] 2021-11-24 2021-11-26 [facility] 1.2.822.976 0943 1703 Univers 02:59:00 16:39:00 Encounter Jose Cruz MENCHACA 350.1.13.10 ity of [place] [id number] [facility] 081 [address] 2021-11-12 2021-11-12 Emergency X [facility] [id number] 98 Univers 12:18:00 15:26:00 SEAN quintero of [facility] 2021-11-12 2021-11-12 Emergency [facility] 1.2.097.703 9280 7189 Univers 12:18:00 15:26:00 Cornelltoan MENCHACA 350.1.13.10 i ty [facility] 4.2.7.2.686 [facility] [id number] [place] [address] [address] 2021-11-01 2021-11-01 Telephone [place], 1.2.840.1 [id number] 2099 [id number] Methodi 00:00:00 00:00:[address] 3.430.2.7 Hospit a .3.270188 l .8 2021-11-01 2021-11-01 Telephone [place], 1.2.840.1 [id number] 2099 [id number] Methodi 00:00:00 00:00:[address] 3.430.2.7 Hospit a .3.311843 l .8 2021-10-31 2021-10-31 Telephone Famanias, 1.2.840.1 [id number] Methodi 00:00:00 00:00:[address] 3.430.2.7 Hospit a .3.358311 l .8 2021-10-31 2021-10-31 Telephone Famanias, 1.2.840.1 [id number] Methodi 00:00:00 00:00:[address] 3.430.2.7 Hospit a .3.628318 l .8 2021-10-14 2021-10-14 Telephone Picquet, 1.2.840.1 [id number] 052 [id number] Methodi 00:00:00 00:00:[address] 3.430.2.7 Hospit a .3.331087 l .8 2021-10-14 2021-10-14 Telephone Picquet, 1.2.840.1 [id number] 192 [id number] Methodi 00:00:00 00:00:[address] 3.430.2.7 Hospit a .3.466499 l .8 2021-09-14 2021-09-14 Emergency [facility] [id number] [facility] 12:28:00 15:47:00 SEAN quintero [facility] 2021-09-14 2021-09-14 [facility].345 2181 [id number] [facility] 12:28:00 15:47:00 Sean MENCHACA 350.1.13.10 i ty [facility] 4.2.7.2.686 [facility] [phone] [address] 2021-09-13 2021-09-13 Telephone Loree, 1.2.840.1 [id number] 2099 [id number] Methodi 00:00:00 00:00:[address] 3.430.2.7 Hospit a .3.669898 l .8 2021-09-13 2021-09-13 Telephone Rivera, 1.2.840.1 [id number] 2099 [id number] Methodi 00:00:00 00:00:[address] 3.430.2.7 Hospit a .3.363339 l .8 2021-09-13 2021-09-13 Telephone Loree, 1.2.840.1 [id number] 2099 [id number] Methodi 00:00:00 00:00:[address] 3.430.2.7 Hospit a .3.142374 l .8 2021-09-13 2021-09-13 Telephone Rivera, 1.2.840.1 [id number] 2099 [id number] Methodi 00:00:00 00:00:[address] 3.430.2.7 Hospit a .3.957316 l .8 2021-09-12 2021-09-12 Telephone Blasavanah, 1.2.840.1 [id number] 2099 [id number] Methodi 00:00:00 00:00:[address] 3.430.2.7 Hospit a .3.452322 l .8 2021-09-12 2021-09-12 Telephone Jones, 1.2.840.1 [id number] 2099 [id number] Methodi 00:00:00 00:00:[address] 3.430.2.7 Hospit a .3.560740 l .8 2021-09-12 2021-09-12 Telephone Blasavanah, 1.2.840.1 [id number] 2099 [id number] Methodi 00:00:00 00:00:[address] 3.430.2.7 Hospit a .3.018695 l .8 2021-09-12 2021-09-12 Telephone Jones, 1.2.840.1 [id number] 2099 [id number] Methodi 00:00:00 00:00:[address] 3.430.2.7 Hospit a .3.953528 l .8 2021-09-08 2021-09-08 Telephone Moe, 1.2.840.1 [id number] 473 [id number] Methodi 00:00:00 00:00:[address] 3.430.2.7 Hospit a .3.334069 l .8 2021-09-08 2021-09-08 Telephone Moe, 1.2.840.1 [id number] 652 [id number] Methodi 00:00:00 00:00:[address] 3.430.2.7 Hospit a .3.659466 l .8 2021-09-07 2021-09-07 Transition NANDA Avila 1.2.840.[id number] [facility] 00:00:00 00:00:00 of Care Irasema DESHPANDE 350.1.13.10 i ty [phone] [facility] [address] 2021-09-07 2021-09-07 Telephone Rivera, 1.2.840.1 [id number] 2099 [id number] Methodi 00:00:00 00:00:[address] 3.430.2.7 Hospit a .3.258718 l .8 2021-09-07 2021-09-07 Telephone Rivera, 1.2.840.1 [id number] 2099 [id number] Methodi 00:00:00 00:00:[address] 3.430.2.7 Hospit a .3.166166 l .8 2021-09-01 2021-09-06 Inpatient X IRENE [facility] AJ [id number] [facility] 18:13:00 17:25:00 JOSE CRUZ quintero [facility] 2021-09-01 2021-09-06 Hospital Corby Leggett [facility] 1.2.8 40.114 [id number] Univers 18:13:00 17:25:00 Encounter Jose Cruz Garcia [place] 350.1.13.10 [facility] 4.2.7.2.686 [facility] [phone] [address] 2021-09-02 2021-09-02 Telephone Loree, 1.2.840.1 [id number] 2099 [id number] Methodi 00:00:00 00:00:[address] 3.430.2.7 Hospit a .3.174861 l .8 2021-09-02 2021-09-02 Telephone Loree, 1.2.840.1 [id number] 2100 [id number] Methodi 00:00:00 00:00:[address] 3.430.2.7 Hospit a .3.645755 l .8 2021-09-01 2021-09-01 Telephone Loree, 1.2.840.1 [id number] 2099 [id number] Methodi 00:00:00 00:00:[address] 3.430.2.7 Hospit a .3.789259 l .8 2021-09-01 2021-09-01 Telephone Loree, 1.2.840.1 [id number] 2100 [id number] Methodi 00:00:00 00:00:[address] 3.430.2.7 Hospit a .3.933841 l .8 2021-08-18 2021-08-18 Telephone Famanias, 1.2.840.1 [id number] Methodi 00:00:00 00:00:[address] 3.430.2.7 Hospit a .3.479673 l .8 2021-08-18 2021-08-18 Telephone Famanias, 1.2.840.1 [id number] Methodi 00:00:00 00:00:[address] 3.430.2.7 Hospit a .3.797393 l .8 2021-08-17 2021-08-17 Telephone Loree, 1.2.840.1 [id number] 2100 [id number] Methodi 00:00:00 00:00:[address] 3.430.2.7 Hospit a .3.218015 l .8 2021-08-17 2021-08-17 Orders Loree, 1.2.840.1 [id number] 8419 Methodi 00:00:00 00:00:00 Only Angelica 35602.1.[address] 3.430.2.7 Hospit a .3.200734 l .8 2021-08-17 2021-08-17 Telephone Loree, 1.2.840.1 [id number] 2100 004353 Methodi 00:00:00 00:00:[address] 3.430.2.7 Hospit a .3.266644 l .8 2021-08-17 2021-08-17 Orders Loree, 1.2.840.1 [id number] 5371 Methodi 00:00:00 00:00:00 Only Angelica 61701.1.[address] 3.430.2.7 Hospit a .3.545225 l .8 2021-07-28 2021-07-28 Orders Loree, 1.2.840.1 [id number] 0290 Methodi 00:00:00 00:00:00 Only Angelica 86037.1.[address] 3.430.2.7 Hospit a .3.938651 l .8 2021-07-28 2021-07-28 Orders Loree, 1.2.840.1 [id number] 857847 6777 Methodi 00:00:00 00:00:00 Only Angelica 00268.1.[address] 3.430.2.7 Hospit a .3.096552 l .8 2021-07-24 2021-07-24 Orders Loree, 1.2.840.1 [id number] 180453 7374 Methodi 00:00:00 00:00:00 Only Angelica 70158.1.[address] 3.430.2.7 Hospit a .3.374751 l .8 2021-07-24 2021-07-24 Orders Loree, 1.2.840.1 [id number] 078735 7471 Methodi 00:00:00 00:00:00 Only Angelica 80821.1.[address] 3.430.2.7 Hospit a .3.438989 l .8 2021-07-06 2021-07-06 Ozzie Lopez [facility] 1.2.369.[address] [facility] 00:00:00 00:00:00 Sabino MENCHACA 350.1.13.10 i ty of [place] 4.2.7.2.686 Nabeel s PROFESSIO [id number] Ma dical NAL 5 [facility] 2021-07-05 2021-07-05 Documentat Jerry 1.2.840.1 [id number] Methodi 00:00:00 00:00:[address] 3.430.2.7 Hospit a .3.475440 l .8 2021-06-30 2021-06-30 Orders Doctor GOMEZ 1.2.840.114 [id number] 23 00:00:00 00:00:00 Only Unassigned, LUCILLE 350.1.13.10 ity of [facility] 4.2.7.2.686 Lj as [phone] [place] [address] [place] 2021-06-30 2021-06-30 Telephone Makenna, 1.2.840.1 [id number] 2099 087709 Methodi 00:00:00 00:00:[address] 3.430.2.7 Hospit a .3.470334 l .8 2021-06-29 2021-06-29 Telephone Lroee, 1.2.840.1 [id number] 2099 203815 Methodi 00:00:00 00:00:[address] 3.430.2.7 Hospit a .3.870287 l .8 2021-06-28 2021-06-28 Outpatient ALPESH GRANADOS [facility] 2099 [id number] [place] 00:00:00 00:00:[address] 2021-06-28 2021-06-28 Travel 1.2.840.1 1.2.934.299 6716 433944 Methodi 00:00:00 00:00:[address] 3.430.2.7 0.2.7.3.698 Ho spita .3.320568 084.8 l .8 2021-06-24 2021-06-24 Telephone Loree, 1.2.840.1 [id number] 2099 786549 Methodi 00:00:00 00:00:[address] 3.430.2.7 Hospit a .3.231053 l .8 2021-06-23 2021-06-23 Hospital Alpesh Granados 1.2.840.1 [id number] Methodi 09:37:15 23:59:[address] 3.430.2.7 Hospit a .3.168466 l .8 2021-06-23 2021-06-23 Office Simran Carr 1.2.840.1 [id number] 4 [id number] Methodi 13:15:00 13:30:00 Visit Nawaf Wynn 29533.1.[address] 3.430.2.7 Hospit a .3.072889 l .8 2021-06-23 2021-06-23 [facility] Alpesh Granados 1.2.840.1 [id number] 21 [id number] Methodi 07:46:16 09:36:[address] 3.430.2.7 Hospit a .3.244187 l .8 2021-06-23 2021-06-23 Outpatient ALPESH GRANADOS [facility] 2100 487010 [place] 00:00:00 00:00:[address] 2021-06-23 2021-06-23 Outpatient EDITH [facility] 055998 4674 [place] 00:00:00 00:00:[address] JIJOSHUA [address] 2021-06-23 2021-06-23 Travel 1.2.840.1 1.2.147.416 0306 366027 Methodi 00:00:00 00:00:[address] 3.430.2.7 0.2.7.3.698 Ho spita .3.733315 084.8 l .8 2021-06-17 2021-06-17 Telemedici Champ, 1.2.840.1 [id number] 236 [id number] Methodi 13:00:00 13:55:08 luis Shelby 51446.1.1 364 s t Watson 3.430.2.7 Hospit a .3.225564 l .8 2021-06-17 2021-06-17 Telephone Dimitrios, 1.2.840.1 [id number] 2099 512065 Methodi 00:00:00 00:00:00 Fidelina Shaw 79262.1.[address] 3.430.2.7 Hospit a .3.667095 l .8 2021-06-17 2021-06-17 Telephone Wing, 1.2.840.1 [id number] 2099 525372 Methodi 00:00:00 00:00:[address] 3.430.2.7 Hospit a .3.652979 l .8 2021-06-17 2021-06-17 Telephone Wing, 1.2.840.1 [id number] 2100 033646 Methodi 00:00:00 00:00:[address] 3.430.2.7 Hospit a .3.035668 l .8 2021-06-16 2021-06-16 Orders Concetta, 1.2.840.1 [id number] 213804 7749 Methodi 00:00:00 00:00:00 Only Ashrith 53884.1.[address] 3.430.2.7 Hospit a .3.295032 l .8 2021-06-16 2021-06-16 Orders Concetta, 1.2.840.1 [id number] 746758 9072 Methodi 00:00:00 00:00:00 Only Ashmandy 99011.1.[address] 3.430.2.7 Hospit a .3.832324 l .8 2021-06-15 2021-06-15 Telephone Makenna, 1.2.840.1 [id number] 2099 234780 Methodi 00:00:00 00:00:[address] 3.430.2.7 Hospit a .3.973962 l .8 2021-06-13 2021-06-13 Telemedici Nick, 1.2.840.1 [id number] 21 71497139 Methodi 08:00:00 08:08:51 ne Ray 89760.1.[address] 3.430.2.7 Hospit a .3.567277 l .8 2021-06-13 2021-06-13 Telephone Jones, 1.2.840.1 [id number] 2099 560576 Methodi 00:00:00 00:00:[address] 3.430.2.7 Hospit a .3.980274 l .8 2021-06-13 2021-06-13 Travel 1.2.840.1 1.2.069.601 3146 338171 Methodi 00:00:00 00:00:[address] 3.430.2.7 0.2.7.3.698 Ho spita .3.030030 084.8 l .8 2021-06-08 2021-06-08 Abstract Peter, 1.2.840.1 [id number] 58419973 Methodi 00:00:00 00:00:[address] 3.430.2.7 Hospit a .3.244940 l .8 2021-05-31 2021-05-31 Telephone Jaye, 1.2.840.1 [id number] 32845653 Methodi 00:00:00 00:00:[address] 3.430.2.7 Hospit a .3.217330 l .8 2021-05-24 2021-05-28 Hospital Aftab Murphy 1.2.840.1 2824667 [id number] Methodi 11:18:00 18:17:00 Encounter Angeline Tellez 63715.1.[address] 3.430.2.7 Hospit a .3.635413 l .8 2021-05-27 2021-05-27 Telephone Jose Eduardo 1.2.840.1 [id number] Methodi 00:00:00 00:00:00 Tanja aguilera 63187.1.1 384 s t 3.430.2.7 Hospit a .3.435449 l .8 2021-05-25 2021-05-25 Telephone Ceferino, 1.2.840.1 [id number] 2099 414831 Methodi 00:00:00 00:00:[address] 3.430.2.7 Hospit a .3.077639 l .8 2021-05-24 2021-05-24 Documentat Loree, 1.2.840.1 [id number] 327 3787491 Methodi 00:00:00 00:00:00 ion Angelica 13059.1.[address] 3.430.2.7 Hospit a .3.679876 l .8 2021-05-23 2021-05-23 Outpatient [facility] [address] [place] [address] 00:00:00 00:00:00 SIMRAN [address] 2021-05-23 2021-05-23 Outpatient [facility] [address] [place] [address] 00:00:00 00:00:[address] MAGEN [address] 2021-05-23 2021-05-23 Travel 1.2.840.1 1.2.221.504 9076 377828 Methodi 00:00:00 00:00:[address] 3.430.2.7 0.2.7.3.698 Ho spita .3.506708 084.8 l .8 2021-05-23 2021-05-23 Telephone Loree, 1.2.840.1 [id number] 2100 919121 Methodi 00:00:00 00:00:[address] 3.430.2.7 Hospit a .3.785001 l .8 2021-05-23 2021-05-23 Orders Loree, 1.2.840.1 298438767 162813 4921 Methodi 00:00:00 00:00:00 Only Angelica 88864.1.[address] 3.430.2.7 Hospit a .3.740985 l .8 2021-05-23 2021-05-23 Orders Loree, 1.2.840.1 563902179 177529 3200 Methodi 00:00:00 00:00:00 Only Angelica 18791.1.[address] 3.430.2.7 Hospit a .3.719371 l .8 2021-05-18 2021-05-18 Lab Kingsley, 1.2.840.1 319907180 432087 7701 Methodi 13:45:00 13:50:00 Nawaf Blair 10141.1.[address] 3.430.2.7 Hospit a .3.397472 l .8 2021-05-18 2021-05-18 Orders Peter, 1.2.840.1 [id number] 719 9931788 Methodi 00:00:00 00:00:00 Only Ruthann 07075.1.[address] 3.430.2.7 Hospit a .3.646501 l .8 2021-05-17 2021-05-17 Telephone Alpesh Granados 1.2.840.1 [id number] 2 [id number] Methodi 00:00:00 00:00:[address] 3.430.2.7 Hospit a .3.996206 l .8 2021-05-13 2021-05-13 Infusion Alpesh Granados 1.2.840.1 [id number] 21 27193818 Methodi 11:00:00 12:00:[address] 3.430.2.7 Hospit a .3.376313 l .8 2021-05-13 2021-05-13 Travel 1.2.840.1 1.2.826.150 4480 591080 Methodi 00:00:00 00:00:[address] 3.430.2.7 0.2.7.3.698 Ho spita .3.222821 084.8 l .8 2021-05-12 2021-05-12 Telephone Carloz 1.2.840.1 [id number] 2099 359012 Methodi 00:00:00 00:00:[address] 3.430.2.7 Hospit a .3.897056 l .8 2021-05-09 2021-05-09 Office Alpesh Granados 1.2.840.1 [id number] 079 3935469 Methodi 10:45:00 15:52:27 Visit David Benjy Robertovin 66412.1.[address] 3.430.2.7 Hospit a .3.022167 l .8 2021-05-09 2021-05-09 Infusion Alpesh Granados 1.2.840.1 [id number] 53354944 Methodi 11:30:00 13:00:[address] 3.430.2.7 Hospit a .3.854786 l .8 2021-05-09 2021-05-09 Travel 1.2.840.1 1.2.703.052 8436 235512 Methodi 00:00:00 00:00:[address] 3.430.2.7 0.2.7.3.698 Ho spita .3.696540 084.8 l .8 2021-05-06 2021-05-06 Telephone Carty, 1.2.840.1 [id number] 2099297 Methodi 00:00:00 00:00:[address] 3.430.2.7 Hospit a .3.441854 l .8 2021-05-06 2021-05-06 Documentat [facility], 1.2.840.1 [id number] 21 [id number] Methodi 00:00:00 00:00:[address] ion Elba 25891.1.[address] 3.430.2.7 Hospit a .3.524363 l .8 2021-05-06 2021-05-06 Documentat [facility], 1.2.840.1 [id number] 21 78410353 Methodi 00:00:00 00:00:00 ion Elba 47105.1.[address] 3.430.2.7 Hospit a .3.676872 l .8 2021-05-04 2021-05-04 Documentat [facility], 1.2.840.1 398495754 21 [id number] Methodi 00:00:00 00:00:00 ion Elba 09636.1.[address] 3.430.2.7 Hospit a .3.231020 l .8 2021-05-02 2021-05-02 Telemedici [facility], 1.2.840.1 [id number] 32013580 Methodi 08:30:00 08:37:59 ne Ray 42822.1.[address] 3.430.2.7 Hospit a .3.505000 l .8 2021-04-29 2021-04-29 Orders Doctor LUIS 1.2.840.114 466355 97 Univers 00:00:00 00:00:00 Only Unassigned, LUCILLE 350.1.13.10 ity of [facility] 4.2.7.2.686 Lj as 625.9312237 [place] [address] [place] 2021-04-29 2021-04-29 Documentat Jerry 1.2.840.1 [id number] Methodi 00:00:00 00:00:00 ion marcel Maame 39163.1.[address] 3.430.2.7 Hospit a .3.580975 l .8 2021-04-29 2021-04-29 Abstract Franky, 1.2.840.1 [id number] 2100 415009 Methodi 00:00:00 00:00:[address] 3.430.2.7 Hospit a .3.667746 l .8 2021-04-29 2021-04-29 Telephone Franky, 1.2.840.1 [id number] 060 4800384 Methodi 00:00:00 00:00:[address] 3.430.2.7 Hospit a .3.564989 l .8 2021-04-14 2021-04-28 Office Nawaf Wynn 1.2.840.1 5882681 34 [id number] Methodi 14:15:00 16:12:07 Visit Joi Santiago 33101.1.1 651 s t 3.430.2.7 Hospit a .3.531408 l .8 2021-04-26 2021-04-26 Documentat Jeanne 1.2.840.1 [id number] 769 5343416 Methodi 00:00:00 00:00:00 ion Mariola 26966.1.[address] 3.430.2.7 Hospit a .3.328598 l .8 2021-04-22 2021-04-22 Travel 1.2.840.1 1.2.078.464 2389 466804 Methodi 00:00:00 00:00:[address] 3.430.2.7 0.2.7.3.698 Ho spita .3.591428 084.8 l .8 2021-04-22 2021-04-22 Telephone Av 1.2.840.1 [id number] 705 5546779 Methodi 00:00:00 00:00:[address] 3.430.2.7 Hospit a .3.257265 l .8 2021-04-14 2021-04-21 Office Nawaf Wynn 1.2.840.1 0893821 34 [id number] Methodi 14:45:00 12:56:39 Visit Lottie Kraft 97179.1.[address] 3.430.2.7 Hospit a .3.698130 l .8 2021-04-18 2021-04-18 [facility] Alpesh Granados 1.2.840.1 [id number] 21 [id number] Methodi 08:00:00 23:59:[address] 3.430.2.7 Hospit a .3.271614 l .8 2021-04-18 2021-04-18 Travel 1.2.840.1 1.2.664.258 4958 613418 Methodi 00:00:00 00:00:[address] 3.430.2.7 0.2.7.3.698 Ho spita .3.878772 084.8 l .8 2021-04-16 2021-04-16 Emergency X OSCAR LAARA ERT 065721 0534 Univers 15:34:00 16:27:00 PORSCHE quintero [facility] 2021-04-16 2021-04-16 Emergency ELENI Moore 1.2.840.114 91 601564 Univers 15:34:00 16:27:00 Porsche MENCHACA 350.1.13.10 ingrid aggarwal [place] 4.2.7.2.686 [facility] [phone] [facility] kandis 0[address] 2021-04-16 2021-04-16 Virtual Abdelrahman, 1.2.840.1 [id number] Methodi 13:30:00 13:45:00 Urgent Crystal 96949.1.[address] Care 3.430.2.7 Hospit a .3.431368 l .8 2021-04-15 2021-04-15 Hospital Shayy Mclaughlin 1.2.840.1 [id number] Methodi 13:13:00 20:46:00 Encounter Dayna 87884.1.[address] 3.430.2.7 Hospit a .3.183823 l .8 2021-04-15 2021-04-15 Surgery Lissette, 1.2.840.1 [id number] 011678 9015 Methodi 17:16:00 18:36:[address] Vaughn 3.430.2.7 Hospit a Tellez .3.385507 l .8 2021-04-15 2021-04-15 Travel 1.2.840.1 1.2.130.300 1446 193509 Methodi 00:00:00 00:00:[address] 3.430.2.7 0.2.7.3.698 Ho spita .3.053136 084.8 l .8 2021-04-14 2021-04-14 [facility] Alpesh Granados 1.2.840.1 [id number] 21 [id number] Methodi 10:00:00 23:59:[address] 3.430.2.7 Hospit a .3.917103 l .8 2021-04-14 2021-04-14 Office Nawaf Wynn 1.2.840.1 [id number] 34 [id number] Methodi 14:00:00 14:15:00 Visit Simran Carr 51874.1.[address] 3.430.2.7 Hospit a .3.905159 l .8 2021-04-14 2021-04-14 [facility] 1.2.840.1 [id number] 21 50762514 Methodi 06:41:00 09:59:[address] 3.430.2.7 Hospit a .3.583429 l .8 2021-04-14 2021-04-14 Outpatient ALPESH GRANADOS [facility] 2100 274120 [place] 00:00:00 00:00:[address] 2021-04-14 2021-04-14 Outpatient KINGSLEY [facility] [id number] 572 [place] 00:00:00 00:00:00 NAWAF [address] [facility] 2021-04-14 2021-04-14 Travel 1.2.840.1 1.2.575.991 7657 015277 Methodi 00:00:00 00:00:[address] 3.430.2.7 0.2.7.3.698 Ho spita .3.650963 084.8 l .8 2021-04-14 2021-04-14 Orders Av, 1.2.840.1 [id number] 22014 59262 Methodi 00:00:00 00:00:00 Only Krissy 30080.1.[address] 3.430.2.7 Hospit a .3.780114 l .8 2021-04-14 2021-04-14 Orders Av, 1.2.840.1 [id number] 58958 83313 Methodi 00:00:00 00:00:00 Only Krissy 09219.1.[address] 3.430.2.7 Hospit a .3.909366 l .8 2021-04-13 2021-04-13 Social Wynn 1.2.840.1 [id number] 585473 8879 Methodi 14:00:00 15:30:00 Work Nawaf Blair 10136.1.[address] 3.430.2.7 Hospit a .3.518012 l .8 2021-04-13 2021-04-13 Clinical Nawaf Wynn 1.2.840.1 883753 231 [id number] Methodi 11:00:00 12:00:00 Support Consuelo Brand 63823.1.[address] 3.430.2.7 Hospit a .3.934582 l .8 2021-04-13 2021-04-13 Nutrition Kingsley, 1.2.840.1 165105496 2099 587500 Methodi 09:00:00 10:00:00 Nawaf Blair 39712.1.[address] 3.430.2.7 Hospit a .3.760333 l .8 2021-04-13 2021-04-13 Outpatient DARWINALPESH Garcia [facility] 2100 006402 [place] 00:00:00 00:00:[address] 2021-04-13 2021-04-13 Documentat Cory, 1.2.840.1 [id number] 2 [id number] Methodi 00:00:00 00:00:00 ion Callum 86637.1.[address] 3.430.2.7 Hospit a .3.118343 l .8 2021-04-13 2021-04-13 Documentat Breezy, 1.2.840.1 286560701 21 [id number] Methodi 00:00:00 00:00:00 [address] Jew[address] 65574.1.[address] 3.430.2.7 Hospit a .3.347862 l .8 2021-04-13 2021-04-13 Orders Loree, 1.2.840.1 192620340 296130 1264 Methodi 00:00:00 00:00:00 Only Angelica 71005.1.[address] 3.430.2.7 Hospit a .3.208468 l .8 2021-04-13 2021-04-13 Travel 1.2.840.1 1.2.028.431 9548 610390 Methodi 00:00:00 00:00:[address] 3.430.2.7 0.2.7.3.698 Ho spita .3.887478 084.8 l .8 2021-04-13 2021-04-13 Documentat Av, 1.2.840.1 [id number] 21 43800347 Methodi 00:00:00 00:00:[address] g[address] Rey [address]21.1.[address] 3.430.2.7 Hospit a .3.600475 l .8 2021-04-12 2021-04-12 Lab Alpesh Granados 1.2.840.1 759738830 804 1380261 Methodi 07:55:00 08:00:[address] 3.430.2.7 Hospit a .3.388639 l .8 2021-04-12 2021-04-12 [facility] 1924385 943 [place] 00:00:00 00:00:00 NAWAF Xiong Method i [facility] 2021-04-11 2021-04-11 [facility] 1.2.840.1 [id number] 3 [id number] Methodi 14:03:46 23:59:00 Encounter DarwinAlpesh garcia 52583.1.[address] 3.430.2.7 Hospit a .3.070559 l .8 2021-04-11 2021-04-11 [facility] 1.2.840.1 [id number] 3 [id number] Methodi 14:03:13 23:59:00 Encounter DarwinAlpesh garcia 07749.1.[address] 3.430.2.7 Hospit a .3.493369 l .8 2021-04-11 2021-04-11 [facility] 1.2.840.1 [id number] 6 [id number] Methodi 13:16:36 14:02:00 Encounter Alpesh Granados 15982.1.[address] 3.430.2.7 Hospit a .3.591237 l .8 2021-04-11 2021-04-11 [facility] 1.2.840.1 [id number] 6 [id number] Methodi 13:16:20 14:02:00 Encounter Alpesh Granados 13747.1.[address] 3.430.2.7 Hospit a .3.926106 l .8 2021-04-11 2021-04-11 [facility] 1.2.840.1 [id number] 7 [id number] Methodi 11:25:13 13:15:00 Encounter Alpesh Granados 71412.1.[address] 3.430.2.7 Hospit a .3.568025 l .8 2021-04-11 2021-04-11 [facility], Jordy 1.2.840.1 72933811 3 [id number] Methodi 09:14:01 11:24:00 Encounter Alpesh Garnados 03918.1.[address] 3.430.2.7 Hospit a .3.299706 l .8 2021-04-11 2021-04-11 [facility] Jordy 1.2.840.1 68888561 3 [id number] Methodi 09:13:40 09:13:40 Encounter Alpesh Granados 58620.1.[address] 3.430.2.7 Hospit a .3.790800 l .8 2021-04-11 2021-04-11 [facility], 1Erin2.840.1 415601879 675 3771347 Methodi 09:13:02 09:13:02 Encounter Not In 83562.1.[address] System 3.430.2.7 Hospit a .3.618475 l .8 2021-04-11 2021-04-11 [facility] 1.2.840.1 [id number] 3 [id number] Methodi 09:12:39 09:12:39 Encounter Alpesh Granados 09434.1.[address] 3.430.2.7 Hospit a .3.114357 l .8 2021-04-11 2021-04-11 [facility] Ojrdy 1.2.840.1 [id number] 4 [id number] Methodi 08:32:00 09:11:00 Encounter Alpesh Granados [address]8860.1.[address] 3.430.2.7 Hospit a .3.326884 l .8 2021-04-11 2021-04-11 [facility] Alpesh Granados 1.2.840.1 [id number] 21 [id number] Methodi 06:56:38 08:31:[address] 3.430.2.7 Hospit a .3.147245 l .8 2021-04-11 2021-04-11 Travel 1.2.840.1 1.2.793.905 6740 875079 Methodi 00:00:00 00:00:[address] 3.430.2.7 0.2.7.3.698 Ho spita .3.623868 084.8 l .8 2021-04-08 2021-04-08 Telephone Av, 1.2.840.1 360846815 901 4492224 Methodi 00:00:00 00:00:[address] 3.430.2.7 Hospit a .3.843563 l .8 2021-04-07 2021-04-07 Outpatient R RADIOLOGY [facility] 67795 24481 Univers 10:54:54 23:59:00 ity of [facility] 2021-04-07 2021-04-07 Hospital Radiology [facility] 1.2.840.114 915 41502 Univers 10:54:54 23:59:00 Encounter TRACEY 350.1.13.10 ity [facility] 4.2.7.2.686 [facility] [phone] [address] 2021-04-07 2021-04-07 Orders Semones, 1.2.840.1 [id number] Methodi 00:00:00 00:00:00 Only Lottie 24492.1.[address] 3.430.2.7 Hospit a .3.034164 l .8 2021-04-01 2021-04-01 Travel 1.2.840.1 1.2.213.633 0266 548733 Methodi 00:00:00 00:00:[address] 3.430.2.7 0.2.7.3.698 Ho spita .3.999811 084.8 l .8 2021-04-01 2021-04-01 Orders Loree, 1.2.840.1 260999613 635285 3750 Methodi 00:00:00 00:00:00 Only Angelica 96308.1.[address] 3.430.2.7 Hospit a .3.454800 l .8 2021-04-01 2021-04-01 Telephone Dimitrios, 1.2.840.1 [id number] 2099 413565 Methodi 00:00:00 00:00:00 Fidelina Shaw 87570.1.[address] 3.430.2.7 Hospit a .3.597703 l .8 2021-03-31 2021-03-31 Telephone Dexter, 1.2.840.1 848007887 400 1118666 Methodi 00:00:00 00:00:[address] 3.430.2.7 Hospit a .3.324220 l .8 2021-03-30 2021-03-30 Documentat Breezy, 1.2.840.1 [id number] 21 [id number] Methodi 00:00:00 00:00:00 g[address] Jewell [address].1.[address] 3.430.2.7 Hospit a .3.463839 l .8 2021-03-28 2021-03-28 Travel 1.2.840.1 1.2.944.523 3286 319814 Methodi 00:00:00 00:00:[address] 3.430.2.7 0.2.7.3.698 Ho spita .3.642875 084.8 l .8 2021-03-18 2021-03-18 Telephone Jessica [facility] 1.2.367.601 6735 0096 Univers 00:00:00 00:00:00 Sabino MENCHACA 350.1.13.10 i ty [place] [id number] Ma dical NAL 0[address] BUILDING 2021-03-18 2021-03-18 Orders Doctor LUIS 1.2.840.114 [id number] Univers 00:00:00 00:00:00 Only Unassigned, LUCILLE 350.1.13.10 ity of [place] [facility] 4.2.7.2.686 Lj as [id number] [facility] 009 Branch 2021-03-10 2021-03-15 Inpatient X LEIDA [facility] [id number] Univers 09:07:00 15:15:00 HARESH ity of [facility] 2021-03-10 2021-03-15 Hospital Edward Reis [facility] 1.2.840.1 14 [id number] Univers 09:07:00 15:15:00 Encounter Haresh Casarez 350.1.13.10 ity of [place] 4.2.7.2.686 [facility] [id number] [place] 175091 [place] 2021-03-04 2021-03-04 Telephone Yanci Escobar [facility] 1.2.840.[id number] [facility] 00:00:00 00:00:00 E TRACEY 350.1.13.10 i ty [facility] 4.2.7.2.686 [facility] [phone] Ma dical [facility] 296 [facility] 2021-03-04 2021-03-04 Telephone Dimitrios, 1.2.840.1 [id number] 2100 844974 Methodi 00:00:00 00:00:00 Fidelina Shaw 04256.1.[address] 3.430.2.7 Hospit a .3.246780 l .8 2021-03-02 2021-03-02 [facility], 1.2.840.1 [id number] 30 Methodi 14:22:00 23:59:00 Encounter Nawaf Blair 60122.1.[address] 3.430.2.7 Hospit a Erin3.444891 l .8 2021-03-02 2021-03-02 [facility], 1.2.840.1 [id number] 29 Methodi 14:19:20 14:21:00 Encounter Nawaf Blair 82144.1.[address] 3.430.2.7 Hospit a .3.644685 l .8 2021-02-22 2021-02-22 Telephone Loree, 1.2.840.1 [id number] 2099 100291 Methodi 00:00:00 00:00:[address] 3.430.2.7 Hospit a .3.708813 l .8 2021-02-21 2021-02-21 Transplant Jovani Boyle 1.2.840.1 10 [id number] Methodi 15:30:00 15:30:00 Telemedici Alpesh Granados 17444.1.[address] ne 3.430.2.7 Hospit a .3.687980 l .8 2021-02-21 2021-02-21 Orders Doctor LUIS 1.2.840.114 [id number] Univers 00:00:00 00:00:00 Only Unassigned, LUCILLE 350.1.13.10 ity of [place] [facility] 4.2.7.2.686 Lj as [id number] [facility] 009 Branch 2021-02-18 2021-02-18 Telephone Loree, 1.2.840.1 [id number] 2100 639675 Methodi 00:00:00 00:00:[address] 3.430.2.7 Hospit a .3.531956 l .8 2021-02-11 2021-02-11 Telephone Speculator, 1.2.840.1 [id number] 2100 [id number] Methodi 00:00:00 00:00:[address] 3.430.2.7 Hospit a .3.416794 l .8 2021-01-20 2021-01-20 Orders Doctor LUIS 1.2.840.114 [id number] Univers 00:00:00 00:00:00 Only Unassigned, LUCILLE 350.1.13.10 ity of [place] [facility] 4.2.7.2.686 Lj as [id number] [facility] 009 Branch 2021-01-17 2021-01-17 Transition Celia NANDA 1.2.840.114 [id number] [id number] Univers 00:00:00 00:00:00 of Care Carlos DESHPANDE 350.1.13.10 [place] [id number] [facility] 403 Branch 2021-01-11 2021-01-14 [facility] [id number] Univers 11:53:00 15:15:00 PREETI ity of [place] [facility] 2021-01-11 2021-01-14 Hospital Idalia Bowman [facility] 1.2.840. 114 [id number] Univers 11:53:00 15:15:00 Encounter Preeti Andersen 350.1.13.10 ity of [facility] [place] [id number] [facility] 081 [place] 2021-01-11 2021-01-14 Inpatient X NATHALY [facility] AJ [id number] Univers 11:53:00 15:15:00 PREETI quintero [facility] 2021-01-10 2021-01-10 Telephone Jessica [facility] 1.2.055.617 [id number] Univers 00:00:00 00:00:00 Sabino MENCHACA 350.1.13.10 i ty [place] [id number] Ma [address] 2021-01-06 2021-01-06 Outpatient R SABINO LOPEZ [facility] 10 [id number] Univers 12:00:00 12:00:00 SABINO LOPEZ i ty of [facility] 2020-12-27 2021-01-04 Inpatient 3 ZACK LindseyYOHAN PUL [id number] 21 [place] 18:28:00 13:20:00 Ilir [facility] [place] 2020-12-28 2020-12-28 Transition NANDA Yang 1.2.840.114 [id number] [id number] Univers 00:00:00 00:00:00 of Care Carlos DESHPANDE 350.1.13.10 ity [facility] [place] [id number] [facility] 403 Branch 2020-12-17 2020-12-27 Inpatient X NATHALY [facility] AJ [id number] Univers 08:38:00 17:06:00 PREETI quintero [facility] 2020-12-17 2020-12-27 [facility] ReisEdward [facility] 1.2.840.1 14 [id number] Univers 08:38:00 17:06:00 Encounter Preeti Andersen 350.1.13.10 it[place] [id number] [facility] 081 Branch 2020-12-24 2020-12-24 [facility] 1.2.840[facility]1 [id number] Methodi 00:00:00 00:00:00 s, Renata 81553.1.[address] 3.430.2.7 Hospit a .3.028650 l .8 2020-12-23 2020-12-23 Telephone Jessica [facility] 1.2.814.857 2517 1149 Univers 00:00:00 00:00:00 Susanajenifer MENCHACA 350.1.13.10 [place] [place] [facility] [phone] [place] 824805 [facility] 2020-12-02 2020-12-02 Telephone EC Braga 1.2.840.114 [id number] Univers 00:00:00 00:00:00 [facility] 350.1.13.10 ity of CLINICS [place] [phone] [facility] [address] 2020-12-02 2020-12-02 Travel 1.2.840.1 1.2.671.987 [id number] Methodi 00:00:00 00:00:[address] 3.430.2.7 0.2.7.3.698 spita .3.460038 084.8 l .8 2020-11-29 2020-11-29 Office Eagle, 1.2.840.1 [id number] Methodi 11:50:00 12:46:42 Visit Ibisor 39874.1.[address] 3.430.2.7 Hospit a .3.686828 l .8 2020-11-29 2020-11-29 Transition Nanda Yang 1.2.840.114 [id number] [id number] Univers 00:00:00 00:00:00 of Care Carlos Deshpande 350.1.13.10 ity of [place] 4.2.7.2.686 [facility] [phone] [facility] 403 [address] 2020-11-29 2020-11-29 Refill Phoebe, 1.2.840.1 [id number] Methodi 00:00:00 00:00:[address] 3.430.2.7 Hospit a .3.751287 l .8 2020-11-29 2020-11-29 Orders Phoebe, 1.2.840.1 [id number] 0219 Methodi 00:00:00 00:00:00 Only Caitlin 92958.1.[address] 3.430.2.7 Hospit a .3.484252 l .8 2020-11-29 2020-11-29 Travel 1.2.840.1 1.2.221.207 5744 349798 Methodi 00:00:00 00:00:[address] 3.430.2.7 0.2.7.3.698 Ho spita .3.140352 084.8 l .8 2020-11-23 2020-11-27 [facility] Edward Reis [facility] 1.2.840.[id number] [facility] 10:43:00 14:00:00 [facility] Preeti Andersen 350.1.13.10 ity of Brianne Hickey 4.2.7.2.686 [facility] [id number] [facility] 080 Branch 2020-10-08 2020-10-19 Inpatient SHENG, [facility] 064 [id number] 42 [place] 00:00:00 00:00:00 L[address]EN [address] 2020-10-05 2020-10-05 Outpatient JESSICAFORMERLY [facility] [id number] 247 [place] 00:00:00 00:00:00 NAOMI [address] 2020-09-27 2020-09-27 Outpatient R RADIOLOGY [facility] [id number] [facility] 00:00:00 00:00:00 ity of [facility] 2020-09-15 2020-09-15 [facility] [id number] 735 [place] 00:00:00 00:00:00 NAOMI [address] 2020-08-11 2020-08-11 Transition Nanda Yang 1.2.840.114 [id number] Univers 00:00:00 00:00:00 of Care Carlos A Deshpande 350.1.13.10 [place] [id number] [facility] 403 [address] 2020-08-08 2020-08-10 Emergency Oscar Porsche J [facility] 1.2.[id number] [facility] 14:08:00 13:20:00 Haresh Casarez 350.1.13.10 [place] of [place] [id number] [facility] 081 Branch 2020-07-22 2020-07-22 Transition Nanda Yang 1.2.840.114 851 [id number] Univers 00:00:00 00:00:00 of Care Carlos A Deshpande 350.1.13.10 [place] [phone] [facility] [address] 2020-07-22 2020-07-22 Transition Nanda Yang 1.2.840.114 851 [id number] 00:00:00 00:00:00 of Care Carlos A Deshpande 350.1.13.10 [place] 4.2.7.2.686 [id number] [facility] 2020-07-15 2020-07-21 [facility] 1.2.840[id number] [facility] 18:18:00 19:03:00 Encounter Yenni Ocampo 350.1.13.10 ity of [facility] 4.2.7.2. 686 Davon Antunez [id number] [facility] 090 Branch 2020-07-15 2020-07-21 [facility] 1.2.840.1 14 [id number] 18:18:00 19:03:00 Encounter Yenni Ocampo Shirland 350.1.13.10 [facility] 4.2.7.2. 686 Davon Pizarro [id number] 090 2020-07-20 2020-07-20 Outpatient R RUFUS, [facility] [id number] Univers 14:00:00 14:00:00 KRYSTINAKENDY ity o f [facility] 2020-07-13 2020-07-13 [facility] Radiology [facility] 1.2.840.114 [id number] Univers 14:12:26 23:59:00 Encounter Jumping Branch 350.1.13.10 ity of [place] 4.2.7.2.686 [facility] [id number] [facility] 801 [address] 2020-07-13 2020-07-13 [facility] Radiology [facility] 1.2.840.114 [id number] 14:12:26 23:59:00 Encounter Jumping Branch 350.1.13.10 [place] 4.2.7.2.686 [place] [id number] 801 2020-07-13 2020-07-13 Outpatient R RADIOLOGY [facility] [id number] [id number] Univers 00:00:00 00:00:00 ity of [facility] 2020-06-22 2020-06-22 Orders Doctor GOMEZ 1.2.840.114 [id number] Univers 00:00:00 00:00:00 Only Unassigned, LUCILLE 350.1.13.10 ity of [place] [facility] 4.2.7.2.686 Lj as [id number] [facility] 009 Branch 2020-06-22 2020-06-22 Orders Doctor GOMEZ 1.2.840.114 [id number] 00:00:00 00:00:00 Only Unassigned, [place] 350.1.13.10 [place] [facility] 4.2.7.2.686 [id number] 009 2020-06-14 2020-06-14 Transition Nanda Yang 1.2.840.114 [id number] [id number] Univers 00:00:00 00:00:00 of Care Carlos Deshpande 350.1.13.10 [place].2.[place] [id number] [facility] 403 [address] 2020-06-14 2020-06-14 Transition Nanda Yang 1.2.840.114 842 [id number] 00:00:00 00:00:00 of Care Carlos Deshpande 350.1.13.10 [place] 4.2.7.2.686 [id number] 403 2020-06-10 2020-06-12 [facility] Edward Reis [facility] 1.2.840.1 14 [id number] Univers 22:55:00 14:52:00 Encounter Nathaly Preeti Jumping Branch 350.1.13.10 ity Ritchie Garciabury 4.2.7.2.686 [facility] [id number] [facility] 081 Branch 2020-06-10 2020-06-12 Inpatient X ISABELL [facility] AJ [id number] Univers 22:55:00 14:52:00 [facility] 2020-06-07 2020-06-07 Outpatient GC_WPSA_Awa PRIV PRIV 206 [id number] [facility] 11:41:00 11:41:00 n_R [id number] Medica l 2020-06-03 2020-06-03 Outpatient GC_WPSA_Awa PRIV PRIV 206 [id number] [facility] 03:16:00 03:16:00 n_R [id number] Medica l 2020-06-03 2020-06-03 Shayla Ganesh PRIV PR - [facility] [id number] [facility] 00:00:00 00:00:00 MD Bruna: [facility] [id number] GC_WPSA_[facility], Office [address], [place] [address] , Ph. 2020-06-03 2020-06-03 Outpatient Bruna, Shayla PRIV PRIV [id number] 00:00:00 00:00:00 Ganesh [id number] 2020-06-03 2020-06-03 Outpatient Bruna, Shayla PRIV PRIV [id number] 00:00:00 00:00:00 Ganesh [id number] 2020-05-12 2020-05-12 [facility] IVY Kahn 1.2.840.114 8 [id number] Univers 14:29:00 23:59:00 Encounter Rupa Malloy 350.1.13.10 ity of BUILDING 4.2.7.2.686 Lj as [id number] [address] 2020-05-12 2020-05-12 [facility] OMA Kahn 1.2.840.114 8 [id number] 14:29:00 23:59:00 Encounter Rupa H 350.1.13.10 BUILDING 4.2.7.2.686 [id number] [facility] 2020-05-12 2020-05-12 Outpatient Adelia [facility] A[facility] [id number] Univers 00:00:00 00:00:00 RUPA [facility] 2020-05-11 2020-05-11 Office [facility] 1.2.840.114 [id number] Univers 12:47:23 15:00:26 Visit [facility] 350.1.13.10 it y of Surgical 4.2.7.2.686 Lj as Specialti [phone] Ma dical es [address] [place] [address] 2020-05-11 2020-05-11 Office [facility] 1.2.840.114 [id number] 56 12:47:23 15:00:26 Visit [facility] 350.1.13.10 Surgical 4.2.7.2.686 Specialti [phone] es [address] [place] [address] 2020-05-11 2020-05-11 Outpatient Adelia NASSAR [facility] [id number] Univers 13:00:00 13:00:00 [facility] 2020-05-10 2020-05-10 Telephone Kathy [facility] 1.2.840.114 [id number] Univers 00:00:00 00:00:00 [facility] 350.1.13.10 it y of Surgical 4.2.7.2.686 Lj as Specialti [phone] Me dical es 198 [facility] 2020-05-04 2020-05-04 [facility] [id number] Univers 14:15:00 14:15:00 NO ity of [facility] 2020-05-04 2020-05-04 Telephone Kathy [facility] 1.2.840.114 [id number] Univers 00:00:00 00:00:00 Ward Salomon [facility] 350.1.13.10 it y of Surgical 4.2.7.2.686 Lj as Specialti [phone] Ma dical es 198 [address] Jumping [place] 2020-04-21 2020-04-21 Orders Doctor LUIS 1.2.840.114 [id number] Univers 00:00:00 00:00:00 Only Unassigned, LUCILLE 350.1.13.10 ity of [place] [facility] 4.2.7.2.686 Lj as [id number] [address] 2020-04-13 2020-04-13 Patient Stevne [facility] 1.2.840.114 [id number] Univers 00:00:00 00:00:[address] [facility] 350.1.13.10 i ty of [facility] 4.2.7.2.[place] PAV[place] [phone] Ma dical [address] 2020-03-29 2020-03-29 Orders Doctor LUIS 1.2.840.114 [id number] Univers 00:00:00 00:00:00 Only Unassigned, LUCILLE 350.1.13.10 ity of [place] [facility] 4.2.7.2.686 Lj as [id number] [address] 2020-03-03 2020-03-03 Orders Doctor GOMEZ 1.2.840.114 [id number] Univers 00:00:00 00:00:00 Only Unassigned, LUCILLE 350.1.13.10 ity of [place] [facility] 4.2.7.2.686 Lj as [id number] [address] 2020-02-04 2020-02-04 Orders Doctor GOMEZ 1.2.840.114 [id number] Univers 00:00:00 00:00:00 Only Unassigned, LUCILLE 350.1.13.10 ity of [place] [facility] 4.2.7.2.686 Lj as [id number] [facility] 00[address] [place] 2019-12-22 2019-12-22 Hospital Radiology [facility] 1.2.840.114 [id number] Univers 12:34:42 23:59:00 Encounter Tracey 350.1.13.10 ity of [place] 4.2.7.2.686 [facility] [id number] [facility] 801 [place] 2019-12-22 2019-12-22 Outpatient R RADIOLOGY [facility] [id number] Univers 00:00:00 00:00:00 ity of [facility] 2019-11-24 2019-11-24 Orders Doctor GOMEZ 1.2.840.114 [id number] Univers 00:00:00 00:00:00 Only Unassigned, LUCILLE 350.1.13.10 ity of [place] [facility] 4.2.7.2.686 Lj as [id number] [address] 2019-09-20 2019-09-21 Emergency [facility] 1.2.059.457 [id number] Univers 22:42:00 02:53:00 Edward Menchaca 350.1.13.10 i ty of [place] 4.2.7.2.686 [facility] [id number] [facility] 084 [place] 2019-08-26 2019-08-26 Telephone Fiordaliza Hernan CEIT 1.2.840.11 4 [id number] Univers 00:00:00 00:00:00 [facility] 350.1.13.10 i ty of CLINICS 4.2.7.2.686 [place] [id number] [facility] 089 [place] 2019-08-20 2019-08-20 Office [facility] 1.2.840.114 [id number] Univers 15:02:58 16:18:49 Visit [facility] 350.1.13.10 it y of Surgical 4.2.7.2.686 Lj as Specialti [phone] Ma dical es 198 [facility] 2019-08-20 2019-08-20 Outpatient R CESARIO [facility] [id number] Univers 15:15:00 15:15:00 NO ity of [facility] 2019-08-20 2019-08-20 Orders Doctor GOMEZ 1.2.840.114 [id number] Univers 00:00:00 00:00:00 Only Unassigned, LUCILLE 350.1.13.10 ity of [place] [facility] 4.2.7.2.686 Lj as [id number] [address] 2019-08-19 2019-08-19 Outpatient Richardson Mackey [id number] Common 13:47:00 13:47:00 t Bone Bone and Spiri t and [facility] - [facility] 2019-07-14 2019-07-15 [facility] [id number] Univers 21:29:13 00:54:00 [facility] 2019-07-14 2019-07-15 [facility] 1.2.444.356 [id number] Univers 21:29:13 00:54:00 Sean Menchaca 350.1.13.10 i ty [facility] 4.2.7.2.[place] [phone] [address] 2019-06-24 2019-06-24 Orders Doctor LUIS 1.2.840.114 [id number] Univers 00:00:00 00:00:00 Only Unassigned, LUCILLE 350.1.13.10 ity of [place] [facility] 4.2.7.2.686 Lj as [id number] [address] 2019-06-18 2019-06-18 Outpatient R JOANNE, [facility] [id number] Univers 10:30:00 10:30:00 AVRIL ity of [facility] 2019-06-12 2019-06-12 Shahrzad Mercado, UNIVERSIT 1.2.614.391 [id number] Univers 00:00:00 00:00:00 Franco HEALTH 350.1.13.10 ity of [place].2.[place] [id number] [address] 2019-06-11 2019-06-11 Outpatient R [facility] [id number] Univers 15:00:00 15:00:00 ity of [facility] 2019-06-11 2019-06-11 Telemedici Fellow, Pulmonary UNIVERSIT 1.2 .840.114 [id number] Univers 08:16:04 08:46:04 ne Visit Hany Valdes Fatpr Y HEALTH 350.1 .13.10 ity of CL[place] 4[place]2.7.2.[place] [id number] [place] 175094 [place] 2019-05-30 2019-05-30 Transition Nanda Klein 1.2.840.114 [id number] Univers 00:00:00 00:00:00 of Care Sheron Copey 350.1.13.10 it y of [place].2.7.2.[place] [id number] [facility] 403 [place] 2019-05-22 2019-05-29 Inpatient R HERNAN MUNOZ [facility] [id number] Univers 21:22:00 15:13:00 ity of [facility] 2019-05-22 2019-05-29 [facility] Hernan Munoz Ceferino Garcia 1.2.840 .114 [id number] Univers 21:22:00 15:13:00 Encounter Mansi Pollard 350.1.13.10 ity of [facility] 4.2.7.2.686 Lj as [phone] [address] 2019-05-22 2019-05-22 Telemedici Hernan Munoz [facility] 1.2.840.1 14 [id number] Univers 07:53:51 08:23:51 ne Visit Ceferino Golden HEALTH 350.1.13.10 ity of CL[place] 4[place]2.7.2.[place] [phone] [place] 175099 [place] 2019-05-14 2019-05-14 Telephone PASCUAL Golden 1.2.840.114 [id number] Univers 00:00:00 00:00:00 Dar Y HEALTH 350.1.13.10 i ty of [place].2.[place] [phone] [address] 2019-04-18 2019-04-18 Emergency X NEEL [facility] ERT [id number] Univers 01:12:24 03:15:00 STUART ity of [facility] 2019-04-18 2019-04-18 Emergency Neel [facility] 1.2.370.096 [id number] Univers 01:12:24 03:15:00 Stuart Sandersonton 350.1.13.10 i ty of [place] 4.2.7.2.[place] [phone] [facility] [address] 2019-04-11 2019-04-11 Letter Juliette [facility] 1.2.840.114 [id number] Univers 00:00:00 00:00:00 (Out) Kalen MULTISPEC 350.1.13.10 ity of [place].2.7.2.686 [place] [id number] [facility] AND [address] DIABETES CLINIC 2019-04-10 2019-04-10 Lease [employer] [facility] UNIVERSIT 1.2.840.114 [id number] Univers 09:23:25 09:38:25 Visit Preeti Lamar HEALTH 350.1.13.10 ity of [place] 4[place]2.7.2.[place] [phone] [facility] [address] 2019-04-10 2019-04-10 Office Dar Golden UNIVERSIT 1.2.8 40.114 [id number] Univers 07:52:48 09:10:16 Visit Preeti Lamar HEALTH 350.1.13.10 ity of [place] 4[place]2.7.2.[place] [id number] [facility] [address] 2019-04-10 2019-04-10 Outpatient R BRIANDA [facility] [id number] Univers 08:00:00 08:00:00 PREETI quintero of [facility] 2019-04-10 2019-04-10 Orders Doctor GOMEZ 1.2.840.114 [id number] Univers 00:00:00 00:00:00 Only Unassigned, LUCILLE 350.1.13.10 ity of [place] [facility] 4.2.7.2.686 Lj as [id number] [facility] [address]9 [address] 2019-03-18 2019-03-18 Inpatient E [facility] 7500 [facility] 20:07:00 14:57:00 2019-03-18 2019-03-18 Transition Nanda Klein 1.2.840.114 [id number] Univers 00:00:00 00:00:00 of Care Sheron Deshpande 350.1.13.10 it y of [place]2.7.2.686 [place] [phone] [facility] [address] 2019-03-13 2019-03-16 Inpatient X BARRINGTONTHOMASJEREMIAH [facility] AJ [id number] Univers 13:15:05 17:20:00 DAVON ity [facility] 2019-03-13 2019-03-16 [facility] Carol Patiño 1.2.840. 114 [id number] Univers 13:15:05 17:20:00 Encounter Davon Pizarro 350.1.1 3.10 ity of [facility] 4.2.7.2.686 [place] [phone] [place] 910235 [place] 2019-03-13 2019-03-13 Transition Klein Jennifernani 1.2.840.114 [id number] Univers 00:00:00 00:00:00 of Care Sheron Deshpande 350.1.13.10 it y of [place] 4.2.7.2.686 [place] [phone] [facility] 403 [place] 2019-03-09 2019-03-12 [facility] 1.2.840.1 14 [id number] Univers 14:20:20 11:50:00 Encounter Brianne Hickey 350.1.13.10 ity of [place] 4.2.7.2.686 [place] [id number] [place] 175090 [place] 2019-03-09 2019-03-12 Inpatient X MARY [facility] AJ [id number] Univers 14:20:20 11:50:00 BRIANNE ity of [facility] 2018-02-06 2018-02-06 [facility] [id number] Common 15:15:00 15:15:00 [facility] 2018-01-03 2018-01-03 Out[facility] [id number] Common 09:30:00 09:30:00 [facility] 2017-09-13 2017-09-13 Outpatient [facility] [id number] Common 08:00:00 08:00:00 t Bone Bone [facility] Spiri t and Joint [facility] 2017-09-06 2017-09-06 Outpatient [facility] 14 [id number] Common 10:00:00 10:00:00 t Bone Bone and Spiri t and Joint [facility] - [facility] Results Test Description Test Time Test Comments Results Result Comments Source Six minute walk w/ pulse oximetry 2022-06-22 15:29:30 Test Item Value Reference Range Interpretation Comme nts Six Minute Walk Distance (ft) (test code = 7665) 492.00 Feet Six Minute Walk Distance (m) (test code = 7614) 150.00 m 379.35 -657.35 Six Minute Walk Distance Predicted (test code = 5645) 518 Six Minute Walk Distance % Predicted (test code = 28.9 % 5646) SP02 at Rest (test code = 7617) 100.00 % SP02 at after 1 minute (test code = 7630) 95.00 % SP02 at after 2 minutes (test code = 7636) 92.00 % SP02 at after 3 minutes (test code = 7642) 94.00 % SP02 at after 4 minutes (test code = 7648) 93.00 % SP02 at after 5 minutes (test code = 7654) 93.00 % SP02 at after 6 minutes (test code = 7660) 95.00 % Heart Rate at Rest (test code = 7615) 75.00 1/min Heart Rate after 1 minute (test code = 7629) 89.00 1/min Heart Rate after 2 minutes (test code = 7635) 98.00 1/min Heart Rate after 3 minutes (test code = 7641) 100.00 1/min Heart Rate after 4 minutes (test code = 7647) 101.00 1/min Heart Rate after 5 minutes (test code = 7653) 105.00 1/min Heart Rate after 6 minutes (test code = 7659) 106.00 1/min Supplemental O2 During Rest (test code = 7624) 4.00 L/min Supplemental O2 after 1 minute (test code = 7634) 4.00 L/min Supplemental O2 after 2 minutes (test code = 7640) 4.00 L/min Supplemental O2 after 3 minutes (test code = 7646) 4.00 L/min Supplemental O2 after 4 minutes (test code = 7652) 4.00 L/min Supplemental O2 after 5 minutes (test code = 7658) 4.00 L/min Supplemental O2 after 6 minutes (test code = 7664) 4.00 L/min BP Systolic at Rest (test code = 7622) 139.00 mmHg BP Systolic after 6 minutes (test code = 7662) 165.00 mmHg BP Diastolic at Rest (test code = 7623) 67.00 mmHg BP Diastolic after 6 minutes (test code = 7663) 74.00 mmHg Wanda Dyspnea Scale at Rest (test code = 7619) 4.00 Wanda Dyspnea Scale after 6 minutes (test code = 7661) 9.00 Lowest SpO2 (test code = 7618) 92.00 % Highest Heart Rate (test code = 7616) 106.00 BPM Lap Count (test code = 7625) 3.00 Premature Stop (test code = 7621) 0.00 Number of Stops (test code = 7626) 2.00 Gait Speed (test code = 7627) 7.07 sec Lap Distance in meters (test code = 7620) 40.00 m [facility] lung [id number] 15:27:52 Test Item Value Reference Range Interpretation Comments FEV1 Pre (test code = 5348) 0.30 L 1.69-2.80 FEV1 Predicted (test code = 5302) 2.26 FEV1 LLN (test code = 5347) 1.69 FEV1 % Pre of Predicted (test code = 13.4 % 5308) FVC Pre (test code = 5354) 0.93 L 2.15-3.61 FVC Predicted (test code = 5307) 2.86 FVC LLN (test code = 5353) 2.15 FVC % Pre of Predicted (test code = 32.4 % 5355) FEV1/FVC % Pre (test code = 5361) 32.49 % 66.86-89.87 FEV1/FVC % Predicted (test code = 79 5359) FEV1/FVC % LLN (test code = 5360) 67 FEV1/FVC % Pre of Predicted (test 41.0 % code = 5362) FEF 25-75% Pre (test code = 5547) 0.12 L/s 1.02-3.46 FEF 25-75% Predicted (test code = 2.05 5546) FEF 25-75% LLN (test code = 5545) 1.02 FEF 25-75% % Pre of Predicted (test 5.9 % code = 5548) PEF Pre (test code = 5367) 1.27 L/s 4.27-7.48 PEF Predicted (test code = 5310) 5.88 PEF LLN (test code = 5366) 4.27 PEF % Pre of Predicted (test code = 21.7 % 5368) [facility] minute walk w/ pulse [id number] 14:28:47 Test Item Value Reference Range Interpretation Comments Six Minute Walk Distance (ft) 315.00 Feet (test code = 7665) Six Minute Walk Distance (m) 96.00 m 382.47-660.47 (test code = 7614) Six Minute Walk Distance 521 Predicted (test code = 5645) Six Minute Walk Distance % 18.4 % Predicted (test code = 5646) SP02 at Rest (test code = 7617) 90.00 % SP02 at after 1 minute (test code 89.00 % = 7630) SP02 at after 2 minutes (test 92.00 % code = 7636) SP02 at after 3 minutes (test 90.00 % code = 7642) SP02 at after 4 minutes (test 88.00 % code = 7648) SP02 at after 5 minutes (test 90.00 % code = 7654) SP02 at after 6 minutes (test 91.00 % code = 7660) Heart Rate at Rest (test code = 70.00 1/min 7615) Heart Rate after 1 minute (test 80.00 1/min code = 7629) Heart Rate after 2 minutes (test 84.00 1/min code = 7635) Heart Rate after 3 minutes (test 92.00 1/min code = 7641) Heart Rate after 4 minutes (test 90.00 1/min code = 7647) Heart Rate after 5 minutes (test 87.00 1/min code = 7653) Heart Rate after 6 minutes (test 77.00 1/min code = 7659) Supplemental O2 During Rest (test 0.00 L/min code = 7624) Supplemental O2 after 1 minute 2.00 L/min (test code = 7634) Supplemental O2 after 2 minutes 6.00 L/min (test code = 7640) Supplemental O2 after 3 minutes 6.00 L/min (test code = 7646) Supplemental O2 after 4 minutes 8.00 L/min (test code = 7652) Supplemental O2 after 5 minutes 10.00 L/min (test code = 7658) Supplemental O2 after 6 minutes 10.00 L/min (test code = 7664) BP Systolic at Rest (test code = 115.00 mmHg 7622) BP Systolic after 6 minutes (test 142.00 mmHg code = 7662) BP Diastolic at Rest (test code = 57.00 mmHg 7623) BP Diastolic after 6 minutes 64.00 mmHg (test code = 7663) Wanda Dyspnea Scale at Rest (test 5.00 code = 7619) Wanda Dyspnea Scale after 6 7.00 minutes (test code = 7661) Lowest SpO2 (test code = 7618) 86.00 % Highest Heart Rate (test code = 93.00 BPM 7616) Lap Count (test code = 7625) 2.00 Premature Stop (test code = 7621) 1.00 Number of Stops (test code = 2.00 7626) Gait Speed (test code = 7627) 7.50 sec Lap Distance in meters (test code 40.00 m = 7620) [facility] minute walk w/ pulse [id number] 14:44:17 Test Item Value Reference Range Interpretation Comments Six Minute Walk Distance (ft) 213.00 Feet (test code = 7665) Six Minute Walk Distance (m) 65.00 m 372.08-650.08 (test code = 7614) Six Minute Walk Distance 511 Predicted (test code = 5645) Six Minute Walk Distance % 12.7 % Predicted (test code = 5646) SP02 at Rest (test code = 7617) 89.00 % SP02 at after 1 minute (test 87.00 % code = 7630) SP02 at after 2 minutes (test 92.00 % code = 7636) SP02 at after 3 minutes (test 92.00 % code = 7642) SP02 at after 4 minutes (test 94.00 % code = 7648) SP02 at after 5 minutes (test 93.00 % code = 7654) SP02 at after 6 minutes (test 92.00 % code = 7660) Heart Rate at Rest (test code = 95.00 1/min 7615) Heart Rate after 1 minute (test 102.00 1/min code = 7629) Heart Rate after 2 minutes (test 114.00 1/min code = 7635) Heart Rate after 3 minutes (test 112.00 1/min code = 7641) Heart Rate after 4 minutes (test 114.00 1/min code = 7647) Heart Rate after 5 minutes (test 114.00 1/min code = 7653) Heart Rate after 6 minutes (test 99.00 1/min code = 7659) Supplemental O2 During Rest 0.00 L/min (test code = 7624) Supplemental O2 after 1 minute 1.00 L/min (test code = 7634) Supplemental O2 after 2 minutes 2.00 L/min (test code = 7640) Supplemental O2 after 3 minutes 3.00 L/min (test code = 7646) Supplemental O2 after 4 minutes 4.00 L/min (test code = 7652) Supplemental O2 after 5 minutes 6.00 L/min (test code = 7658) Supplemental O2 after 6 minutes 6.00 L/min (test code = 7664) BP Systolic at Rest (test code = 130.00 mmHg 7622) BP Systolic after 6 minutes 146.00 mmHg (test code = 7662) BP Diastolic at Rest (test code 70.00 mmHg = 7623) BP Diastolic after 6 minutes 76.00 mmHg (test code = 7663) Wanda Dyspnea Scale at Rest (test 4.00 code = 7619) Wanda Dyspnea Scale after 6 5.00 minutes (test code = 7661) Lowest SpO2 (test code = 7618) 87.00 % Highest Heart Rate (test code = 99.00 BPM 7616) Lap Count (test code = 7625) 1.00 Number of Stops (test code = 5.00 7626) Gait Speed (test code = 7627) 9.30 sec [facility]pd[facility]nmwwsr[facility]oe2734[facility]-15 14:05:38 Test Item Value Reference Range Interpretation Comments FEV1 Pre (test code = 5348) 0.28 L 1.69-2.81 FEV1 Predicted (test code = 5302) 2.26 FEV1 LLN (test code = 5347) 1.69 FEV1 % Pre of Predicted (test code = 12.5 % 5308) FVC Pre (test code = 5354) 0.99 L 2.15-3.62 FVC Predicted (test code = 5307) 2.87 FVC LLN (test code = 5353) 2.15 FVC % Pre of Predicted (test code = 34.5 % 5355) FEV1/FVC % Pre (test code = 5361) 28.52 % 66.90-89.87 FEV1/FVC % Predicted (test code = 79 5359) FEV1/FVC % LLN (test code = 5360) 67 FEV1/FVC % Pre of Predicted (test 36.0 % code = 5362) FEF 25-75% Pre (test code = 5547) 0.11 L/s 1.03-3.47 FEF 25-75% Predicted (test code = 2.06 5546) FEF 25-75% LLN (test code = 5545) 1.03 FEF 25-75% % Pre of Predicted (test 5.2 % code = 5548) PEF Pre (test code = 5367) 1.27 L/s 4.27-7.48 PEF Predicted (test code = 5310) 5.88 PEF LLN (test code = 5366) 4.27 PEF % Pre of Predicted (test code = 21.6 % 5368) [facility] [id number] 19:49:03 Test Item Value Reference Range Interpretation Comments Case number (test code = [id number]) Surgical pathology See link below for report (test code = PDF Lab Report [id number]) Result status (test code This is Final Report = [id number]) [facility] [id number] [facility] [Presence] in Respiratory specimen by CONNOR with probe [id number] 16:07:37 Test Item Value Reference Range Interpretation Comments SARS-CoV-2 (COVID-19) RNA Not detected [Presence] in Respiratory specimen by CONNOR with probe detection (test code = 26272-3) Whether patient is employed in a Unknown healthcare setting (test code = 11771-5) Whether the patient has symptoms Unknown related to condition of interest (test code = 63517-3) Whether the patient was Unknown hospitalized for condition of interest (test code = 74858-6) Whether the patient was admitted Unknown to intensive care unit (ICU) for condition of interest (test code = 54423-8) Whether patient resides in a Unknown congregate care setting (test code = 52167-6) status (test code = Unknown 62661-8) Date and time of symptom onset Unknown (test code = 48889-3) MARISELA TOBAR [id number] 21:59:31 Test Item Value Reference Range Interpretation Comments TROPONIN I (test code = 0.005 ng/mL <=0.034 7810736723) KYLE (test code = KYLE) Reference (Normal) Range (defined by the 99th percentile reference [...] biotin. Lab Interpretation Normal (test code = 51073-3) [id number] 21:56:09 Test Item Value Reference Range Interpretation Comments NT-proBNP (test code = 116 pg/mL <=125 2486755884) KYLE (test code = KYLE) Biotin has been reported to cause a negative bias, interpret results relative to patient's use of biotin. Lab Interpretation (test Normal code = 65606-0) [facility] ([id number])2022-03-17 21:54:53 Test Item Value Reference Range Interpretation Comments NA (test code = 138 mmol/L 135-145 5768042113) K (test code = 4.5 mmol/L 3.5-5.0 8485031958) CL (test code = 92 mmol/L 98-108 L 6869563490) CO2 TOTAL (test code = 39 mmol/L 23-31 H 4178141496) AGAP (test code = 7 2-16 9231702684) BUN (test code = 11 mg/dL 7-23 6732489076) GLUCOSE (test code = 116 mg/dL 70-110 H 1968872336) CREATININE (test code = 0.40 mg/dL 0.50-1.04 L 8839134573) TOTAL BILI (test code = 0.7 mg/dL 0.1-1.0 8380951433) CALCIUM (test code = 9.6 mg/dL 8.6-10.6 7130041296) T PROTEIN (test code = 7.8 g/dL 6.3-8.2 4481868766) ALBUMIN (test code = 4.2 g/dL 3.5-5.0 6842863132) ALK PHOS (test code = 90 U/L 34-122 1242273873) ALTv (test code = 11 U/L 5-35 1742-6) AST(SGOT) (test code = 28 U/L 13-40 4511453655) eGFR (test code = 161.7 mL/min/1.73m2 4903288692) KYLE (test code = KYLE) Association of [...] tests). Lab Interpretation Abnormal (test code = 69489-2) [facility] WITH [id number] 21:36:11 Test Item Value Reference Range Interpretation Comments WBC (test code = 8.08 See_Comment [Automated 6690-2) message] The sy stem which generated this result transmitted reference range : 4.30 - 11.10 10*3/?L. The reference range was not used to interpret this result as normal/abnormal . RBC (test code = 3.77 See_Comment L [Automated 789-8) message] The sy stem which generated this result transmitted reference range : 3.93 - 5.25 10*6/?L. The reference range was not used to interpret this result as normal/abnormal . HGB (test code = 10.7 g/dL 11.6-15.0 L 718-7) HCT (test code = 34.4 % 35.7-45.2 L 4544-3) MCV (test code = 91.2 fL 80.6-95.5 787-2) MCH (test code = 28.4 pg 25.9-32.8 785-6) MCHC (test code = 31.1 g/dL 31.6-35.1 L 786-4) RDW-SD (test code = 42.0 fL 39.0-49.9 10609-2) RDW-CV (test code = 12.7 % 12.0-15.5 788-0) PLT (test code = 283 See_Comment [Automated 777-3) message] The sy stem which generated this result transmitted reference range : 166 - 358 10*3/ ?L. The reference r arnulfo was not used to interpret this result as normal/abnormal . MPV (test code = 9.6 fL 9.5-12.9 22061-3) NRBC/100 WBC (test 0.0 See_Comment [Automat ed code = 3220702141) message] The system which generated this result transmitted reference range : 0.0 - 10.0 /100 WBCs. The refer ence range was not u sed to interpret th is result as normal/abnormal . NRBC x10^3 (test code See_Comment [Auto mated = 3826098805) message] The s ystem which generated this result transmitted reference range : 10*3/?L. The reference range was not used to interpret this result as normal/abnormal . GRAN MAT (NEUT) % 72.1 % (test code = 770-8) IMM GRAN % (test code 0.40 % = 0340452276) LYMPH % (test code = 18.7 % 736-9) MONO % (test code = 5.1 % 5905-5) EOS % (test code = 3.5 % 713-8) BASO % (test code = 0.2 % 706-2) GRAN MAT x10^3(ANC) 5.83 10*3/uL 1.88-7.09 (test code = 7586005556) IMM GRAN x10^3 (test 0.03 10*3/uL 0.00-0.06 code = 6655883508) LYMPH x10^3 (test code 1.51 10*3/uL 1.32-3.29 = 731-0) MONO x10^3 (test code 0.41 10*3/uL 0.33-0.92 = 742-7) EOS x10^3 (test code = 0.28 10*3/uL 0.03-0.39 711-2) BASO x10^3 (test code 0.01-0.07 = 704-7) Lab Interpretation Abnormal (test code = 11706-7) [facility] [id number] 21:28:06 Test Item Value Reference Interpretation Comments Range TROPONIN I (test 0.004 ng/mL See_Comment [Automated code = 5575511303) message] The system which generated this result [...] biotin. Lab Interpretation Normal (test code = 19380-9) [facility] [id number] 21:24:45 Test Item Value Reference Range Interpretation Comments NT-proBNP (test code 79 pg/mL See_Comment [Autom ated = 5534423625) message] The system which generated this result transmitted reference range : <=125. The reference range was not used to interpret this result as normal/abnormal . KYLE (test code = KYLE) Biotin has been reported to cause a negative bias, interpret results relative to patient's use of biotin. Lab Interpretation Normal (test code = 37921-1) [facility] ([id number])2022-03-01 21:16:23 Test Item Value Reference Range Interpretation Comments NA (test code = 136 mmol/L 135-145 7345443595) K (test code = 4.1 mmol/L 3.5-5.0 9619959888) CL (test code = 94 mmol/L 98-108 L 7765635951) CO2 TOTAL (test code = 40 mmol/L 23-31 H 7834197318) AGAP (test code = 2-16 5866663608) BUN (test code = 15 mg/dL 7-23 5034258326) GLUCOSE (test code = 98 mg/dL 70-110 9865850375) CREATININE (test code = 0.50 mg/dL 0.50-1.04 1428693188) TOTAL BILI (test code = 0.4 mg/dL 0.1-1.1 6633451219) CALCIUM (test code = 9.7 mg/dL 8.6-10.6 7041456726) T PROTEIN (test code = 7.6 g/dL 6.3-8.2 3808264784) ALBUMIN (test code = 4.3 g/dL 3.5-5.0 7022471937) ALK PHOS (test code = 91 U/L 34-122 9822989206) ALTv (test code = 12 U/L 5-35 1742-6) AST(SGOT) (test code = 21 U/L 13-40 0045460005) eGFR (test code = mL/min/1.73m2 2082111609) KYLE (test code = KYLE) Association of [...] tests). Lab Interpretation Abnormal (test code = 52829-7) [facility] WITH [id number] 21:08:04 Test Item Value Reference Range Interpretation Comments WBC (test code = See_Comment [Automated 5497-2) message] The sy stem which generated this result transmitted reference range : 4.30 - 11.10 10*3/?L. The reference range was not used to interpret this result as normal/abnormal . RBC (test code = See_Comment L [Automated 822-8) message] The sy stem which generated this result transmitted reference range : 3.93 - 5.25 10*6/?L. The reference range was not used to interpret this result as normal/abnormal . HGB (test code = 10.7 g/dL 11.6-15.0 L 718-7) HCT (test code = 33.8 % 35.7-45.2 L 4544-3) MCV (test code = 91.1 fL 80.6-95.5 787-2) MCH (test code = 28.8 pg 25.9-32.8 785-6) MCHC (test code = 31.7 g/dL 31.6-35.1 786-4) RDW-SD (test code = 44.2 fL 39.0-49.9 07513-4) RDW-CV (test code = 13.2 % 12.0-15.5 788-0) PLT (test code = See_Comment [Automated 777-3) message] The sy stem which generated this result transmitted reference range : 166 - 358 10*3/ ?L. The reference r arnulfo was not used to interpret this result as normal/abnormal . MPV (test code = 9.9 fL 9.5-12.9 49908-7) NRBC/100 WBC (test See_Comment [Automat ed code = 4664213052) message] The system which generated this result transmitted reference range : 0.0 - 10.0 /100 WBCs. The refer ence range was not u sed to interpret th is result as normal/abnormal . NRBC x10^3 (test code See_Comment [Auto mated = 9118081508) message] The s ystem which generated this result transmitted reference range : 10*3/?L. The reference range was not used to interpret this result as normal/abnormal . GRAN MAT (NEUT) % 63.0 % (test code = 770-8) IMM GRAN % (test code 0.20 % = 3871545718) LYMPH % (test code = 23.3 % 736-9) MONO % (test code = 7.6 % 5905-5) EOS % (test code = 5.4 % 713-8) BASO % (test code = 0.5 % 706-2) GRAN MAT x10^3(ANC) 5.23 10*3/uL 1.88-7.09 (test code = 1106462391) IMM GRAN x10^3 (test 0.00-0.06 code = 0651240297) LYMPH x10^3 (test code 1.93 10*3/uL 1.32-3.29 = 731-0) MONO x10^3 (test code 0.63 10*3/uL 0.33-0.92 = 742-7) EOS x10^3 (test code = 0.45 10*3/uL 0.03-0.39 H 711-2) BASO x10^3 (test code 0.04 10*3/uL 0.01-0.07 = 704-7) Lab Interpretation Abnormal (test code = 50893-9) [facility] w/ pulse [id number] 17:46:53 Test Item Value Reference Range Interpretation Comments Six Minute Walk Distance (ft) 279.00 Feet (test code = 7665) Six Minute Walk Distance (m) 85.00 m 371.46-649.46 (test code = 7614) Six Minute Walk Distance 510 Predicted (test code = 5645) Six Minute Walk Distance % 16.7 % Predicted (test code = 5646) SP02 at Rest (test code = 7617) 96.00 % SP02 at after 1 minute (test 95.00 % code = 7630) SP02 at after 2 minutes (test 96.00 % code = 7636) SP02 at after 3 minutes (test 94.00 % code = 7642) SP02 at after 4 minutes (test 95.00 % code = 7648) SP02 at after 5 minutes (test 96.00 % code = 7654) SP02 at after 6 minutes (test 98.00 % code = 7660) Heart Rate at Rest (test code = 109.00 1/min 7615) Heart Rate after 1 minute (test 111.00 1/min code = 7629) Heart Rate after 2 minutes (test 118.00 1/min code = 7635) Heart Rate after 3 minutes (test 112.00 1/min code = 7641) Heart Rate after 4 minutes (test 111.00 1/min code = 7647) Heart Rate after 5 minutes (test 116.00 1/min code = 7653) Heart Rate after 6 minutes (test 125.00 1/min code = 7659) Supplemental O2 During Rest 2.00 L/min (test code = 7624) Supplemental O2 after 1 minute 2.00 L/min (test code = 7634) Supplemental O2 after 2 minutes 4.00 L/min (test code = 7640) Supplemental O2 after 3 minutes 4.00 L/min (test code = 7646) Supplemental O2 after 4 minutes 4.00 L/min (test code = 7652) Supplemental O2 after 5 minutes 4.00 L/min (test code = 7658) Supplemental O2 after 6 minutes 4.00 L/min (test code = 7664) BP Systolic at Rest (test code = 115.00 mmHg 7622) BP Systolic after 6 minutes 106.00 mmHg (test code = 7662) BP Diastolic at Rest (test code 61.00 mmHg = 7623) BP Diastolic after 6 minutes 62.00 mmHg (test code = 7663) Wanda Dyspnea Scale at Rest (test 4.00 code = 7619) Wanda Dyspnea Scale after 6 7.00 minutes (test code = 7661) Lowest SpO2 (test code = 7618) 94.00 % Highest Heart Rate (test code = 125.00 BPM 7616) Lap Count (test code = 7625) 2.00 Premature Stop (test code = 1.00 7621) Number of Stops (test code = 2.00 7626) Gait Speed (test code = 7627) 9.06 sec Lap Distance in meters (test 40.00 m code = 7620) [facility] [id number] 16:23:50 Test Item Value Reference Range Interpretation Comments VC Pre (test code = 0.84 L 2.43-3.76 5374) VC Predicted (test 3.09 code = 5372) VC LLN (test code = 2.43 5373) VC % Pre of Predicted 27.2 % (test code = 5375) TLC Pre (test code = 5.31 L 3.81-5.76 5416) TLC Predicted (test 4.73 code = 5414) TLC LLN (test code = 3.81 5415) TLC % Pre of Predicted 112.2 % (test code = 5417) RV Pre (test code = 4.47 L 1.01-2.50 5402) RV Predicted (test 1.66 code = 5400) RV LLN (test code = 1.01 5401) RV % Pre of Predicted 269.5 % (test code = 5403) RV % TLC Pre (test 84.13 % 23.50-46.49 code = 5409) RV % TLC Predicted 35 (test code = 5407) RV % TLC LLN (test 23 code = 5408) RV % TLC % Pre of 243.0 % Predicted (test code = 5410) R0.5IN Pre (test code 17.57 See_Comment [Auto mated message] = 5514) The system [employer] generated this result transmitted ref erence range: 3.06 - 3 .06 cmH2O*s/L. The reference range was not used to interpr et this result as normal/abnormal . R0.5IN Predicted (test 3.06 code = 5512) R0.5IN LLN (test code 3.06 = 5513) R0.5IN % Pre of 574.2 % Predicted (test code = 5515) FRCpl Pre (test code = 4.65 L 1.79-3.43 5388) FRCpl % Predicted 2.51 (test code = 5386) FRCpl % LLN (test code 1.79 = 5387) FRCpl % Pre of 185.0 % Predicted (test code = 5389) ERV Pre (test code = 0.18 L 0.24-1.48 5381) ERV Predicted (test 0.74 code = 5379) ERV LLN (test code = 0.24 5380) ERV % Pre of Predicted 24.3 % (test code = 5382) IC Pre (test code = 0.66 L 1.52-3.02 5395) IC Predicted (test 2.27 code = 5393) IC LLN (test code = 1.52 5394) IC % Pre of Predicted 29.3 % (test code = 5396) sR0.5IN Pre (test code 85.31 See_Comment [Aut omated message] = 5521) The system [employer] generated this result transmitted ref erence range: 9.81 - 9 .81 cmH2O*s. The re ference range was not u sed to interpret this result as normal/abnor mal. sR0.5IN LLN (test code 9.81 = 5520) sR0.5IN Predicted 9.81 (test code = 5519) sR0.5IN % Pre of 870.1 % Predicted (test code = 5522) Raw Pre (test code = 23.52 See_Comment [Autom ated message] 5507) The system [employer] generated this result transmitted ref erence range: 3.06 - 3 .06 cmH2O*s/L. The reference range was not used to interpr et this result as normal/abnormal . Raw Predicted (test 3.06 code = 5505) Raw LLN (test code = 3.06 5506) Raw % Pre of Predicted 768.9 % (test code = 5508) sGaw Predicted (test 0.01 See_Comment [Autom ated message] code = 5528) The system [employer] generated this result transmitted ref erence range: 0.10 - 0 .10 1/(cmH2O*s). Th e reference range was not used to interpr et this result as normal/abnormal . sGaw Predicted (test 0.10 code = 5526) sGaw LLN (test code = 0.10 5527) sGaw % Pre of 8.6 % Predicted (test code = 5529) FEV1 Pre (test code = 0.30 L 1.70-2.81 5348) FEV1 Predicted (test 2.27 code = 5302) FEV1 LLN (test code = 1.70 5347) FEV1 % Pre of 13.4 % Predicted (test code = 5308) FVC Pre (test code = 0.84 L 2.16-3.62 5354) FVC Predicted (test 2.87 code = 5307) FVC LLN (test code = 2.16 5353) FVC % Pre of Predicted 29.3 % (test code = 5355) FEV1/FVC % Pre (test 35.92 % 66.96-89.87 code = 5361) FEV1/FVC % Predicted 79 (test code = 5359) FEV1/FVC % LLN (test 67 code = 5360) FEV1/FVC % Pre of 45.3 % Predicted (test code = 5362) FEF 25-75% Pre (test 0.13 L/s 1.03-3.48 code = 5547) FEF 25-75% Predicted 2.07 (test code = 5546) FEF 25-75% LLN (test 1.03 code = 5545) FEF 25-75% % Pre of 6.2 % Predicted (test code = 5548) PEF Pre (test code = 1.55 L/s 4.27-7.48 5367) PEF Predicted (test 5.88 code = 5310) PEF LLN (test code = 4.27 5366) PEF % Pre of Predicted 26.3 % (test code = 5368) [facility] Whole [id number] 21:51:42 Test Item Value Reference Range Interpretation Comments LACTIC ACID (test code = 0.96 mmol/L 0.50-2.20 3971396438) Lab Interpretation (test code = Normal 30221-0) [facility] [id number] 19:01:12 Test Item Value Reference Interpretation Comments Range TROPONIN I (test 0.004 ng/mL See_Comment [Automated code = 1186114057) message] The system which generated this result [...] biotin. Lab Interpretation Normal (test code = 61048-5) [facility] [id number] 18:34:27 Test Item Value Reference Range Interpretation Comments NT-proBNP (test code 124 pg/mL See_Comment [Autom ated = 2204210072) message] The system which generated this result transmitted reference range : <=125. The reference range was not used to interpret this result as normal/abnormal . KYLE (test code = KYLE) Biotin has been reported to cause a negative bias, interpret results relative to patient's use of biotin. Lab Interpretation Normal (test code = 11314-8) [facility] THRMPLAS [id number] 18:30:09 Test Item Value Reference Range Interpretation Comments APTT Patient (test See_Comment [Automat ed code = 3173-2) message] The system which generated this result transmitted reference range : 23 - 38 Seconds . The reference range was not used to interpr et this result as normal/abnormal . KYLE (test code = KYLE) The [facility] patient population mean normal value for aPTT is 30 seconds. Lab Interpretation Normal (test code = 84800-3) [facility]viewPROTHROMBIN [facility] / [id number] 18:28:07 Test Item Value Reference Range Interpretation Comments [...] tions. Lab Interpretation (test Normal code = 14181-0) [facility]OLIC PANEL ([id number])2021-12-27 18:26:10 Test Item Value Reference Range Interpretation Comments NA (test code = 138 mmol/L 135-145 9643480306) K (test code = 4.7 mmol/L 3.5-5.0 0653748741) CL (test code = 93 mmol/L 98-108 L 6216514434) CO2 TOTAL (test code = 36 mmol/L 23-31 H 5729595341) AGAP (test code = 2-16 4765725738) BUN (test code = 7 mg/dL 7-23 2922988948) GLUCOSE (test code = 130 mg/dL 70-110 H 9873360926) CREATININE (test code = 0.43 mg/dL 0.50-1.04 L 1839978982) TOTAL BILI (test code = 0.6 mg/dL 0.1-1.7 1464351329) CALCIUM (test code = 9.6 mg/dL 8.6-10.6 9402488114) T PROTEIN (test code = 7.0 g/dL 6.3-8.2 3261768486) ALBUMIN (test code = 4.0 g/dL 3.5-5.0 7825788054) ALK PHOS (test code = 139 U/L 34-122 H 7000861066) ALTv (test code = 15 U/L 5-35 2-6) AST(SGOT) (test code = 23 U/L 13-40 0878731463) eGFR (test code = mL/min/1.73m2 0079695531) KYLE (test code = KYLE) Association of [...] tests). Lab Interpretation Abnormal (test code = 49154-4) [facility] WITH [id number] 17:52:25 Test Item Value Reference Range Interpretation Comments WBC (test code = See_Comment [Automated 9090-2) message] The sy stem which generated this [...] as normal/abnormal . HGB (test code = 10.6 g/dL 11.6-15.0 L 718-7) HCT (test code = 33.8 % 35.7-45.2 L 4544-3) MCV (test code = 90.6 fL 80.6-95.5 787-2) MCH (test code = 28.4 pg 25.9-32.8 785-6) MCHC (test code = 31.4 g/dL 31.6-35.1 L 786-4) RDW-SD (test code = 40.5 fL 39.0-49.9 58571-5) RDW-CV (test code = 12.2 % 12.0-15.5 788-0) PLT (test code = See_Comment H [Automated 777-3) message] The sy stem which generated this result transmitted reference range : 166 - 358 10*3/ ?L. The reference r arnulfo was not used to interpret this result as normal/abnormal . MPV (test code = 9.3 fL 9.5-12.9 L 59161-9) NRBC/100 WBC (test See_Comment [Automat ed code = 9665615684) message] The system which generated this result transmitted reference range : 0.0 - 10.0 /100 WBCs. The refer ence range was not u sed to interpret th is result as normal/abnormal . NRBC x10^3 (test code See_Comment [Auto mated = 1429420081) message] The s ystem which generated this result transmitted reference range : 10*3/?L. The reference range was not used to interpret this result as normal/abnormal . GRAN MAT (NEUT) % 75.2 % (test code = 770-8) IMM GRAN % (test code 0.40 % = 4870046472) LYMPH % (test code = 13.5 % 736-9) MONO % (test code = 7.4 % 5905-5) EOS % (test code = 3.2 % 713-8) BASO % (test code = 0.3 % 706-2) GRAN MAT x10^3(ANC) 7.56 10*3/uL 1.88-7.09 H (test code = 8693634528) IMM GRAN x10^3 (test 0.04 10*3/uL 0.00-0.06 code = 6843008734) LYMPH x10^3 (test code 1.36 10*3/uL 1.32-3.29 = 731-0) MONO x10^3 (test code 0.74 10*3/uL 0.33-0.92 = 742-7) EOS x10^3 (test code = 0.32 10*3/uL 0.03-0.39 711-2) BASO x10^3 (test code 0.03 10*3/uL 0.01-0.07 = 704-7) Lab Interpretation Abnormal (test code = 95059-4) [facility]view[facility]an[facility] (TTE)2021-12-04 17:06:26 Test Item Value Reference Range Interpretation Comments Height (test code = in 7736383884) Weight (test code = lbs 4946575945) Systolic BP (test code = mmHg 2067333314) Diastolic BP (test code mmHg = 1222387425) Heart Rate (test code = bpm 8828142743) BSA (test code = 1.58 m2 5904321819) LVOT diameter (test code 1.90 cm = 7641531616) LVOT area (test code = 2.80 cm2 1971153183) Ao root diam (test code 3.20 cm = 9431471535) Aortic root (test code = 3.2 cm 8781664680) Ao root annulus (test 3.2 cm code = 8696777752) LA size (test code = 3.7 cm 4189899594) ACS (test code = 2.16 cm 0353938005) PV PEAK VELOCITY (test 71.3 cm/s code = 7366612117) PV peak gradient (test mmHg code = 8121333097) MV E-F slope (test code 63.20 cm/s = 2569284970) MV Peak E Lester (test code 62.1 cm/s = 3335394864) MV Peak A Lester (test code 115.9 cm/s = 7026355204) E/A ratio (test code = ratio 4580610794) MV valve area p 1/2 11.10 cm2 method (test code = 7480132026) MV dec slope (test code 910.40 cm/s2 = 2591915236) MV P1/2t max lester (test 61.60 cm/s code = 4141787530) LVOT stroke volume (test 66.20 cm3 code = 1531125509) LVOT peak lester (test code 140.2 cm/s = 1235143234) LVOT mn grad (test code mmHg = 7022858387) AV LVOT peak gradient mmHg (test code = 9451744652) LVOT peak VTI (test code 23.5 cm = 5541537469) LV V1 mean (test code = 95.60 cm/s 8755832683) Aortic valve mean 132.1 cm/s velocity (test code = 8791887785) Ao peak lester (test code = 198.2 cm/s 3840648490) Ao VTI (test code = 33.5 cm 8937451619) AV area by cont VTI 2.0 cm2 (test code = 7619798700) AV area peak lester (test 2.0 cm2 code = 1574759039) Ao max PG (test code = 15.70 mm[Hg] 5151537352) AV peak gradient (test mmHg code = 2703510710) AV valve area (test code 1.98 cm2 = 2314029963) AV mean gradient (test mmHg code = 0670450374) LVIDD (test code = 3.70 cm 8529020278) Left Ventricular End 59.7 mL Diastolic Volume by Teichholz Method (test code = 2698127) IVS (test code = 0.87 cm 6174226940) Interventricular Septum 0.87 cm Diastolic Thickness by 2D (test code = 7837625) LVPWD (test code = 0.96 cm 6921764234) PW (test code = 0.96 cm 0.6-1.4 1157424698) EF(Teich) (test code = 68.70 % 8631555618) LVIDS (test code = 2.33 cm 4062683846) Left Ventricular End 18.7 mL Systolic Volume by Teichholz Method (test code = 7401390) FS (test code = 38 % 8878982820) EF - 2D (test code = 68.70 % 91097721) TR Peak Lester (test code = 233.5 cm/s 0075448308) Triscuspid Valve mmHg Regurgitation Peak Gradient (test code = 8051750148) Radiology Study observation (narrative) (test code = 35609-8) KYLE (test code = KYLE) ?Left?Ventricle: Left ventricle size is normal. Normal wall thickness. Normal wall motion. Hyperdynamic systolic function with a visually estimated EF of 65 - 70%. There is impaired relaxation. ?Tricuspid?Valve: Insufficient regurgant jet to estimate RVSP. ?RA pressure is 0-5 mmHg. Left VentricleLeft ventricle size is normal. Normal wall thickness. Normal wall motion. Hyperdynamic systolic function with a visually estimated EF of 65 - 70%. There is impaired relaxation.Right VentricleRight ventricle size is normal. Normal systolic function.Left AtriumLeft atrium size is normal.Right AtriumRight atrium size is normal.Mitral ValveMitral valve structure is normal. Trace transvalvular regurgitation.Tricusp id ValveTricuspid valve structure is normal. Trace transvalvular regurgitation. Insufficient regurgant jet to estimate RVSP. RA pressure is 0-5 mmHg.Aortic ValveAortic valve opens well.Pulmonic ValveNot well visualized.Ascending AortaNormal sized aorta.PericardiumThe pericardium is normal.Study DetailsStudy quality was adequate. A complete echocardiogram was performed using 2D, color flow Doppler and spectral Doppler. 5 mL of Lumason ultrasound enhancing agent used. [facility]ERR[facility]IN [id number] 08:39:42 Test Item Value Reference Range Interpretation Comments FERRITIN (test code = 180.0 ng/mL 11.0-264.0 4085246337) KYLE (test code = KYLE) Biotin has been reported to cause a negative bias, interpret results relative to patient's use of biotin. Lab Interpretation (test Normal code = 97276-5) [facility]viewIRON [id number] 08:34:01 Test Item Value Reference Range Interpretation Comments IRON (test code = 25 ug/dL 50-160 L Slight hem olysis 2594641794) TIBC (test code = 227 ug/dL 250-410 L 5871143475) % FE SAT (test code = 11 % 20-50 L 3631961030) Lab Interpretation (test Abnormal code = 18951-0) [facility]viewLIPID PANEL (42712)(TOTAL CHOLESTEROL, TRIGLYCERIDES, HDL)2021-12-04 08:04:39 Test Item Value Reference Range Interpretation Comments CHOL (test code = 179 mg/dL 120-200 0028345853) HDL (test code = 74 mg/dL See_Comment [Automated message] 7256242786) The system [employer] generated this result transmit blayne reference range : >=50. The refer ence range was not u sed to interpret th is result as normal/abnormal . HDLC RATIO (test code = See_Comment [Au tomated message] 3161501048) The system [employer] generated this result transmit blayne reference range : <=4.5. The refe rence range was not u sed to interpret th is result as normal/abnormal . TRIG (test code = 159 mg/dL 30-170 7383510285) LDL CHOL (test code = 73 mg/dL See_Comment [Auto mated message] 19458-4) The system [employer] generated this result transmit blayne reference range : <=160. The refe rence range was not u sed to interpret th is result as normal/abnormal . VLDL (test code = 32 mg/dL 5-60 8507986902) Lab Interpretation (test Normal code = 75801-2) [facility]viewGlycosylated Hemoglobin (A1C)2021-12-04 01:36:16 Test Item Value Reference Range Interpretation Comments HGB A1C (test code = 5.2 % 4.0-5.7 4548-4) KYLE (test code = KYLE) Reference RangesNormal: <5.7%Prediabetes: 5.7 - 6.4%Diabetes: > 6.5% Lab Interpretation (test Normal code = 92500-6) [facility]viewTHYROID STIMULATING [id number] 23:05:38 Test Item Value Reference Range Interpretation Comments TSH (test code = See_Comment [Automated message] 7035328870) The system [employer] generated this result transmitted ref erence range: 0.45 - 4 .70 mIU/L. The refe rence range was not u sed to interpret this result as normal/abnor mal. Lab Interpretation (test Normal code = 78713-3) [facility]viewTROPONIN [id number] 22:47:16 Test Item Value Reference Interpretation Comments Range TROPONIN I (test 0.003 ng/mL See_Comment [Automated code = 9791018521) message] The system which generated this result [...] biotin. Lab Interpretation Normal (test code = 06998-2) [facility]viewN-TERMINAL [id number] 22:44:16 Test Item Value Reference Range Interpretation Comments NT-proBNP (test code 212 pg/mL See_Comment H [Autom ated = 9747865013) message] The system which generated this result transmitted reference range : <=125. The reference range was not used to interpret this result as normal/abnormal . KYLE (test code = KYLE) Biotin has been reported to cause a negative bias, interpret results relative to patient's use of biotin. Lab Interpretation Abnormal (test code = 48873-0) [facility]viewACTIVATED PARTIAL THRMPLAS [id number] 22:42:20 Test Item Value Reference Range Interpretation Comments APTT Patient (test See_Comment [Automat ed code = 3173-2) message] The system which generated this result transmitted reference range : 23 - 38 Seconds . The reference range was not used to interpr et this result as normal/abnormal . KYLE (test code = KYLE) The [facility] patient population mean normal value for aPTT is 30 seconds. Lab Interpretation Normal (test code = 91349-5) [facility] LongviewPROTHROMBIN TIME / [id number] 22:39:59 Test Item Value Reference Range Interpretation Comments PROTIME PATIENT (test See_Comment [Auto mated message] code = 5964-2) The system [employer] generated this result transmitted ref erence range: 12.0 - 1 4.7 Seconds. The re ference range was not u sed to interpret this result as normal/abnor mal. INR (test code = 6301-6) Nor mal INR <1.1; Warfarin Therap eutic range 2.0 to 3. 0 or 2.5 to 3.5, dep ending upon the indica tions. Lab Interpretation (test Normal code = 15852-9) [facility]viewMAGNESIUM2022-10-29 22:34:58 Test Item Value Reference Range Interpretation Comments MAGNESIUM (test code = 4078806401) 1.5 mg/dL 1.7-2.4 L Lab Interpretation (test code = Abnormal 41460-4) [facility]. METABOLIC PANEL (89048)2021-12-03 22:34:38 Test Item Value Reference Range Interpretation Comments NA (test code = 137 mmol/L 135-145 6025305607) K (test code = 4.0 mmol/L 3.5-5.0 1882260734) CL (test code = 93 mmol/L 98-108 L 3958564260) CO2 TOTAL (test code = 39 mmol/L 23-31 H 5757106119) AGAP (test code = 2-16 7671191045) BUN (test code = 16 mg/dL 7-23 2130350041) GLUCOSE (test code = 127 mg/dL 70-110 H 0472768855) CREATININE (test code = 0.57 mg/dL 0.50-1.04 8452762329) TOTAL BILI (test code = 0.5 mg/dL 0.1-1.5 8916425843) CALCIUM (test code = 9.2 mg/dL 8.6-10.6 0976334233) T PROTEIN (test code = 6.5 g/dL 6.3-8.2 4774637805) ALBUMIN (test code = 3.6 g/dL 3.5-5.0 2410653776) ALK PHOS (test code = 62 U/L 34-122 0900197280) ALTv (test code = 13 U/L 5-35 1742-6) AST(SGOT) (test code = 22 U/L 13-40 8885716265) eGFR (test code = mL/min/1.73m2 4602318219) KYLE (test code = KYLE) Association of [...] tests). Lab Interpretation Abnormal (test code = 86603-7) [facility]viewLIPASE2022-10-29 22:34:38 Test Item Value Reference Range Interpretation Comments LIPASE (test code = 1438062314) 40 U/L 0-220 Lab Interpretation (test code = Normal 98250-3) [facility] LongviewLactic Acid Whole [id number] 22:24:41 Test Item Value Reference Range Interpretation Comments LACTIC ACID (test code = 1.21 mmol/L 0.50-2.20 5927034507) Lab Interpretation (test code = Normal 25193-3) [facility]viewCB WITH [id number] 22:22:55 Test Item Value Reference Range Interpretation Comments WBC (test code = See_Comment H [Automated 6690-2) message] The system which generated this result transmit blayne reference range : 4.30 - 11.10 10*3/?L. The reference range was not used to interpret this result as normal/abnormal . RBC (test code = See_Comment L [Automated 789-8) message] The system which generated this result transmit blayne reference range : 3.93 - 5.25 10*6/?L. The reference range was not used to interpret this result as normal/abnormal . HGB (test code = 11.0 g/dL 11.6-15.0 L 718-7) HCT (test code = 33.9 % 35.7-45.2 L 4544-3) MCV (test code = 91.4 fL 80.6-95.5 787-2) MCH (test code = 29.6 pg 25.9-32.8 785-6) MCHC (test code = 32.4 g/dL 31.6-35.1 786-4) RDW-SD (test code = 41.3 fL 39.0-49.9 26421-4) RDW-CV (test code = 12.4 % 12.0-15.5 788-0) PLT (test code = See_Comment H [Automated 777-3) message] The system which generated this result transmit blayne reference range : 166 - 358 10*3/ ?L. The reference range was not u sed to interpret th is result as normal/abnormal . MPV (test code = 9.0 fL 9.5-12.9 L 69309-3) NRBC/100 WBC (test See_Comment [Automat ed code = 6437182724) message] The system which generated this result transmit blayne reference range : 0.0 - 10.0 /100 WBCs. The reference range was not used to interpret this result as normal/abnormal . NRBC x10^3 (test code See_Comment [Auto mated = 0195122264) message] The system which generated this result transmit blayne reference range : 10*3/?L. The reference range was not used to interpret this result as normal/abnormal . GRAN MAT (NEUT) % 76.9 % (test code = 770-8) IMM GRAN % (test code 0.80 % = 4620209594) LYMPH % (test code = 11.2 % 736-9) MONO % (test code = 9.7 % 5905-5) EOS % (test code = 1.3 % 713-8) BASO % (test code = 0.1 % 706-2) GRAN MAT x10^3(ANC) 10.40 10*3/uL 1.88-7.09 H (test code = 4385822692) IMM GRAN x10^3 (test 0.11 10*3/uL 0.00-0.06 H code = 7079689358) LYMPH x10^3 (test code 1.52 10*3/uL 1.32-3.29 = 731-0) MONO x10^3 (test code 1.31 10*3/uL 0.33-0.92 H = 742-7) EOS x10^3 (test code = 0.18 10*3/uL 0.03-0.39 711-2) BASO x10^3 (test code 0.01-0.07 = 704-7) Lab Interpretation Abnormal (test code = 60153-8) [facility] METABOLIC PANEL (NA, K, CL, CO2, GLUCOSE, BUN, CREATININE, CA)2021-11-12 18:25:56 Test Item Value Reference Range Interpretation Comments NA (test code = 140 mmol/L 135-145 5196773240) K (test code = 4.0 mmol/L 3.5-5 8386894244) CL (test code = 93 mmol/L 98-108 L 2690283479) CO2 TOTAL (test code = 38 mmol/L 23-31 H 7559512497) AGAP (test code = 2-16 4542906807) BUN (test code = 14 mg/dL 7-23 5201272010) GLUCOSE (test code = 105 mg/dL 70-110 0838954384) CREATININE (test code = 0.51 mg/dL 0.5-1.04 1981548163) CALCIUM (test code = 9.7 mg/dL 8.6-10.6 5711445799) eGFR (test code = mL/min/1.73m2 7974830537) KYLE (test code = KYLE) Association of [...] tests). Lab Interpretation Abnormal (test code = 01015-8) [facility] WITH [id number] 18:09:35 Test Item Value Reference Range Interpretation Comments WBC (test code = See_Comment [Automated 3482-2) message] The sy stem which generated this result transmitted reference range : 4.30 - 11.10 10*3/?L. The reference range was not used to interpret this result as normal/abnormal . RBC (test code = See_Comment L [Automated 534-8) message] The sy stem which generated this [...] RDW-SD (test code = 42.8 fL 39-49.9 10726-0) RDW-CV (test code = 12.2 % 12-15.5 788-0) PLT (test code = See_Comment [Automated 777-3) message] The sy stem which generated this result transmitted reference range : 166 - 358 10*3/ ?L. The reference r arnulfo was not used to interpret this result as normal/abnormal . MPV (test code = 10.1 fL 9.5-12.9 50717-5) NRBC/100 WBC (test See_Comment [Automat ed code = 7081512577) message] The system which generated this result transmitted reference range : 0.0 - 10.0 /100 WBCs. The refer ence range was not u sed to interpret th is result as normal/abnormal . NRBC x10^3 (test code See_Comment [Auto mated = 3274620091) message] The s ystem which generated this result transmitted reference range : 10*3/?L. The reference range was not used to interpret this result as normal/abnormal . GRAN MAT (NEUT) % 69.9 % (test code = 770-8) IMM GRAN % (test code 0.30 % = 6265352436) LYMPH % (test code = 18.2 % 736-9) MONO % (test code = 6.9 % 5905-5) EOS % (test code = 4.2 % 713-8) BASO % (test code = 0.5 % 706-2) GRAN MAT x10^3(ANC) 4.04 10*3/uL 1.88-7.09 (test code = 0388731421) IMM GRAN x10^3 (test 0-0.06 code = 8059309963) LYMPH x10^3 (test code 1.05 10*3/uL 1.32-3.29 L = 731-0) MONO x10^3 (test code 0.40 10*3/uL 0.33-0.92 = 742-7) EOS x10^3 (test code = 0.24 10*3/uL 0.03-0.39 711-2) BASO x10^3 (test code 0.03 10*3/uL 0.01-0.07 = 704-7) Lab Interpretation Abnormal (test code = 93963-2) [facility]TR[facility] [id number] 18:39:47 Test Item Value Reference Interpretation Comments Range TROPONIN I (test 0.004 ng/mL See_Comment [Automated code = 7884064901) message] The system which generated this result [...] biotin. Lab Interpretation Normal (test code = 38288-1) [facility]viewN-TERMINAL [id number] 18:36:10 Test Item Value Reference Range Interpretation Comments NT-proBNP (test code 236 pg/mL See_Comment H [Autom ated = 4088132691) message] The system which generated this result transmitted reference range : <=125. The reference range was not used to interpret this result as normal/abnormal . KYLE (test code = KYLE) Biotin has been reported to cause a negative bias, interpret results relative to patient's use of biotin. Lab Interpretation Abnormal (test code = 83707-7) [facility] (NA, K, CL, CO2, GLUCOSE, BUN, CREATININE, CA)2021-09-14 18:26:46 Test Item Value Reference Range Interpretation Comments NA (test code = 137 mmol/L 135-145 9096435173) K (test code = 4.0 mmol/L 3.5-5 7235212140) CL (test code = 92 mmol/L 98-108 L 9897728626) CO2 TOTAL (test code = 38 mmol/L 23-31 H 2359056593) AGAP (test code = 2-16 4140383767) BUN (test code = 10 mg/dL 7-23 5681371375) GLUCOSE (test code = 110 mg/dL 70-110 7911087012) CREATININE (test code = 0.47 mg/dL 0.5-1.04 L 4393255555) CALCIUM (test code = 9.4 mg/dL 8.6-10.6 6124088397) eGFR (test code = mL/min/1.73m2 5203981125) KYLE (test code = KYLE) Association of [...] tests). Lab Interpretation Abnormal (test code = 74617-9) [facility] WITH [id number] 18:23:24 Test Item Value Reference Range Interpretation [...] RDW-SD (test code = 44.6 fL 39-49.9 86114-7) RDW-CV (test code = 12.9 % 12-15.5 788-0) PLT (test code = See_Comment [Automated 777-3) message] The sy stem which generated this result transmitted reference range : 166 - 358 10*3/ ?L. The reference r arnulfo was not used to interpret this result as normal/abnormal . MPV (test code = 9.6 fL 9.5-12.9 33206-6) NRBC/100 WBC (test See_Comment [Automat ed code = 6659222786) message] The system which generated this result transmitted reference range : 0.0 - 10.0 /100 WBCs. The refer ence range was not u sed to interpret th is result as normal/abnormal . NRBC x10^3 (test code See_Comment [Auto mated = 6228867550) message] The s ystem which generated this result transmitted reference range : 10*3/?L. The reference range was not used to interpret this result as normal/abnormal . GRAN MAT (NEUT) % 74.6 % (test code = 770-8) IMM GRAN % (test code 0.50 % = 2846084087) LYMPH % (test code = 14.8 % 736-9) MONO % (test code = 7.8 % 5905-5) EOS % (test code = 2.1 % 713-8) BASO % (test code = 0.2 % 706-2) GRAN MAT x10^3(ANC) 9.57 10*3/uL 1.88-7.09 H (test code = 1768706442) IMM GRAN x10^3 (test 0.06 10*3/uL 0-0.06 code = 2541356175) LYMPH x10^3 (test code 1.90 10*3/uL 1.32-3.29 = 731-0) MONO x10^3 (test code 1.00 10*3/uL 0.33-0.92 H = 742-7) EOS x10^3 (test code = 0.27 10*3/uL 0.03-0.39 711-2) BASO x10^3 (test code 0.01-0.07 = 704-7) Lab Interpretation Abnormal (test code = 82798-9) [facility] (NA, K, CL, CO2, GLUCOSE, BUN, CREATININE, CA)2021-09-03 10:31:24 Test Item Value Reference Range Interpretation Comments NA (test code = 140 mmol/L 135-145 2021419737) K (test code = 4.3 mmol/L 3.5-5 1963533419) CL (test code = 97 mmol/L 98-108 L 9742117978) CO2 TOTAL (test code = 38 mmol/L 23-31 H 0415639051) AGAP (test code = 2-16 6845289055) BUN (test code = 16 mg/dL 7-23 9154600438) GLUCOSE (test code = 102 mg/dL 70-110 6391949956) CREATININE (test code = 0.53 mg/dL 0.5-1.04 4091326265) CALCIUM (test code = 9.1 mg/dL 8.6-10.6 5398209986) eGFR (test code = mL/min/1.73m2 7329843052) KYLE (test code = KYLE) Association of [...] tests). Lab Interpretation Abnormal (test code = 67738-2) [facility]viewHEPAT[facility] FUNCTION PANEL (96983) (ALB,T.PRO,BILI T,BU/BC,ALT,AST,ALK PHOS)2021-09-03 10:31:24 Test Item Value Reference Range Interpretation Comments TOTAL BILI (test code = 4792410184) 0.2 mg/dL 0.1-1.1 BILI UNCON (test code = 2411300894) 0.0 mg/dL 0.1-1.1 L BILI CONJ (test code = 9283739619) 0.0 mg/dL 0-0.3 T PROTEIN (test code = 2705142750) 7.0 g/dL 6.3-8.2 ALBUMIN (test code = 1068285190) 3.7 g/dL 3.5-5 ALK PHOS (test code = 7195801294) 74 U/L 34-122 ALTv (test code = 1742-6) 12 U/L 5-35 AST(SGOT) (test code = 5622985424) 23 U/L 13-40 Lab Interpretation (test code = Abnormal 89949-1) [facility] with [id number] 10:30:23 Test Item Value Reference Range Interpretation [...] RDW-SD (test code = 42.2 fL 39-49.9 04267-4) RDW-CV (test code = 12.4 % 12-15.5 788-0) PLT (test code = See_Comment [Automated 777-3) message] The sy stem which generated this result transmitted reference range : 166 - 358 10*3/ ?L. The reference r arnulfo was not used to interpret this result as normal/abnormal . MPV (test code = 10.4 fL 9.5-12.9 28521-6) NRBC/100 WBC (test See_Comment [Automat ed code = 3635076913) message] The system which generated this result transmitted reference range : 0.0 - 10.0 /100 WBCs. The refer ence range was not u sed to interpret th is result as normal/abnormal . NRBC x10^3 (test code See_Comment [Auto mated = 6955147588) message] The s ystem which generated this result transmitted reference range : 10*3/?L. The reference range was not used to interpret this result as normal/abnormal . GRAN MAT (NEUT) % 61.7 % (test code = 770-8) IMM GRAN % (test code 0.30 % = 2425413429) LYMPH % (test code = 23.9 % 736-9) MONO % (test code = 14.1 % 5905-5) EOS % (test code = 0.0 % 713-8) BASO % (test code = 0.0 % 706-2) GRAN MAT x10^3(ANC) 2.46 10*3/uL 1.88-7.09 (test code = 7077298493) IMM GRAN x10^3 (test 0-0.06 code = 2722331841) LYMPH x10^3 (test code 0.95 10*3/uL 1.32-3.29 L = 731-0) MONO x10^3 (test code 0.56 10*3/uL 0.33-0.92 = 742-7) EOS x10^3 (test code = 0.03-0.39 L 711-2) BASO x10^3 (test code 0.01-0.07 = 704-7) Lab Interpretation Abnormal (test code = 71477-2) [facility]viewAF [id number] 12:13:00 Test Item Value Reference Range Interpretation Comments AFB culture No growth after Specimen isolate [facility]-9[facility] incubation. Source: Biopsy Specimen Site: RUL BX KYLE (test code Received in = KYLE) [facility] [id number] 12:15:00 Test Item Value Reference Range Interpretation Comments Fungus culture No growth after Specimen isolate (test 4 [facility] code = 580-1) incubation. Source: Biopsy Specimen Site: RUL BX KYLE (test code Received in = KYLE) RPMI solution [facility] w/ pulse [id number] 14:05:12 Test Item Value Reference Range Interpretation [...] meters (test code = 40 m 7620) [facility]2022-05-19 12:47:12 Test Item Value Reference Range [...] (test code = See_Comment [Auto mated message] 5420) The system [employer] generated this result transmitted ref erence range: 14.19 - 27.19 ml/(min*mmHg). The reference range was not used to interpr et this result as normal/abnormal . DLCO Predicted (test code = 5421) DLCO LLN (test code = 5422) DLCO % Pre of 14.3 % Predicted (test code = 5424) DLCOc Pre (test code = See_Comment [Aut omated message] 5100) The system [employer] generated this result transmitted ref erence range: 14.19 - 27.19 ml/(min*mmHg). The reference range was not used to interpr et this result as normal/abnormal . DLCOc Predicted (test code = 5428) DLCOc LLN (test code = 5429) DLCOc % Pre of 15.8 % Predicted (test code = 5431) DL/VA Pre (test code = See_Comment [Aut omated message] 5437) The system [employer] generated this result transmitted ref erence range: 3.20 - 5 .84 ml/(min*mmHg*L) . The reference range was not used to interpr et this result as normal/abnormal . DL/VA Predicted (test code = 5435) DL/VA LLN (test code = 5436) DL/VA % Pre of 29.5 % Predicted (test code = 5438) KCOc SB Pre (test code See_Comment [Aut omated message] = 5535) The system [employer] generated this result transmitted ref erence range: [...] Hb Pre (test code = g(Hb)/dL 5540) [facility] usmapfs4952-08-22 00:20:16 Test Item Value Reference Range Interpretation Comments Case number (test code = [id number]) Surgical pathology See link below for report (test code = PDF Lab Report 2255) Result status (test code This is Final Report = [id number]) [id number] [facility] stptatz8557-47-79 22:35:41 Test Item Value Reference Range Interpretation Comments Case number (test code = [id number]) Cytology See link below for (non-gynecological) PDF Lab Report report (test code = 1178) Result status (test code This is Final Report = [id number]) for [id number] [facility] ardjk4635-50-92 16:49:00 Test Item Value Reference Range Interpretation Comments AFB stain No acid fast Specimen (test code = bacilli (AFB) InformationSpe cimen 676-7) seen. Source: BiopsyS pecimen Site: RUL BX KYLE (test Received in code = KYLE) [facility] jhmwj3942-49-75 15:55:00 Test Item Value Reference Range Interpretation Comments Fungus smear No fungi Specimen (test code = observed. InformationSpec imen 1443) Source: BiopsyS pecimen Site: RUL BX KYLE (test Received in code = KYLE) [facility] RNA [Presence] in Respiratory specimen by CONNOR with probe nfcnstaeo0740-02-60 23:07:32 Test Item Value Reference Range Interpretation Comments SARS-CoV-2 (COVID-19) RNA Not detected [Presence] in Respiratory specimen by CONNOR with probe detection (test code = 53858-9) Whether patient is employed in a Unknown healthcare setting (test code = 94744-1) Whether the patient has symptoms Unknown related to condition of interest (test code = 94187-0) Whether the patient was Unknown hospitalized for condition of interest (test code = 07185-1) Whether the patient was admitted Unknown to intensive care unit (ICU) for condition of interest (test code = 51574-3) Whether patient resides in a Unknown congregate care setting (test code = 37694-7) status (test code = Unknown 40386-0) Date and time of symptom onset Unknown (test code = 20504-8) MARISELA YE ejanei8172-52-95 18:50:36 Test Item Value Reference Range Interpretation Comments Interpretation (test code = DQB1*02:CEXBV=DQB1 2359996) *02:01/02:160ABIH9 *03:BGCWT=DQB1*03: 01/03:276N Case number (test code = [id number]) HLA typing (test code = See link below for 8764) PDF Lab Report [facility] JvvmfjgjH3G class 1 & 2 csqmjohp8995-67-07 16:54:32 Test Item Value Reference Range Interpretation Comments Case number (test code = [id number]) C1Q class 1 & 2 antibody See link below for (test code = 5182529) PDF Lab Report [facility] avsa1427-47-08 00:26:00 Test Item Value Reference Range Interpretation Comments Misc test name CMVM2 to ARUP (test code = 2950947 2566) Misc test see comment Cytomegalovirus result (test Antibody, IgM A RUP test code = 1730) code 8197016 CM V Antibody IgM <8 .0 AU/mL [...] le vels of IgM antibodies may occasionally p ersist for more than 1 2 months post-infection. [...] (HCT/P ). ======== ======== Te st performed by:[facility] [address] [place] [address] KYLE (test code Previous comment = KYLE) was ?With reflex if positive?Release to patient (Note: If manual release option is?selected, result will auto release 10 days from?finalization .)->Immediate?Spe cimen only collected Sunday - before 1200.?Specimen cannot be collected the day before a holiday or on a?holiday. Call referral lab at [phone] if you have?questions., verified by HIS at 06:55 on 04/12/2021. [facility]Spirom[facility], lung volumes, MIPS/NOEV1922-91-21 19:11:27 Test Item Value Reference Range Interpretation [...] ated message] code = 5528) The system [employer] generated this result transmitted ref erence range: [...] Predicted 136.2 % (test code = 5459) [facility] w/ pulse jdrxuekt2269-44-99 18:27:27 Test Item Value Reference Range Interpretation [...] Predicted 21.5 % (test code = 5646) [facility], with reflex to culture 2021-04-12 15:52:00 Test Item Value Reference Range Interpretation Comments Specimen site Clean catch (test code = 2792855) Color, UA (test Yellow code = 5778-6) Appearance, UA Clear (test code = 5767-9) Specific gravity, 1.001-1.035 UA (test code = 5811-5) pH, UA (test code 5.0-8.5 = 5803-2) Protein, UA (test Negative Negative code = 12525-4) Glucose, UA (test Negative Negative code = 61330-6) Ketones, UA (test Negative Negative code = 2514-8) Bilirubin, UA Negative Negative (test code = 5770-3) Blood, UA (test Negative Negative code = 5794-3) Nitrite, UA (test Negative Negative code = 5802-4) Urobilinogen, UA <2.0 See_Comment [Automated (test code = message] The [employer] stem 73782-9) which generated this result transmitted reference range : <=2.0. The reference range was not used to interpret this result as normal/abnormal . Leukocyte Negative Negative esterase, UA (test code = 5799-2) Epithelial cells, <1 See_Comment [Automate d UA (test code = message] The system 8387-7) which generated this result transmitted reference range [...] code None seen See_Comment [Automat ed = 96083-0) message] The sy stem which generated this result transmitted reference range : 0 - 5 /HPF. The reference range was not used to interpret this result as normal/abnormal . Bacteria, UA (test None seen None seen code = 13316-6) Yeast, UA (test None seen code = 71145-8) Yeast with None seen pseudohyphae, UA (test code = 12948-7) KYLE (test code = Previous comment KYLE) was ?With reflex if positive?Release to patient (Note: If manual release option is?selected, result will auto release 10 days from?finalization .)->Immediate?Spe cimen only collected Sunday - before 1200.?Specimen cannot be collected the day before a holiday or on a?holiday. Call referral lab at [phone] if you have?questions., verified by HIS at 06:55 on 04/12/2021. [facility] ca[facility]sc3623-63-25 15:24:00 Test Item Value Reference Range Interpretation Comments Urine culture SEE COMMENT Bacteriuria sc reen (test code = negative. 3279684) KYLE (test code = Previous comment KYLE) was ?With reflex if positive?Release to patient (Note: If manual release option is?selected, result will auto release 10 days from?finalization. )->Immediate?Speci men only collected Sunday - before 1200.?Specimen cannot be collected the day before a holiday or on a?holiday. Call referral lab at [phone] if you have?questions., verified by HIS at 06:55 on 04/12/2021. [facility] RNA [Presence] in Respiratory specimen by CONNOR with probe ziruocskj3648-63-84 11:26:03 Test Item Value Reference Range Interpretation Comments SARS-CoV-2 (COVID-19) RNA Not detected [Presence] in Respiratory specimen by CONNOR with probe detection (test code = 87370-2) Whether patient is employed in a Unknown healthcare setting (test code = 42850-9) Whether the patient has symptoms Unknown related to condition of interest (test code = 83525-4) Whether the patient was Unknown hospitalized for condition of interest (test code = 29495-2) Whether the patient was admitted Unknown to intensive care unit (ICU) for condition of interest (test code = 17855-2) Whether patient resides in a Unknown congregate care setting (test code = 90330-0) status (test code = Unknown 52299-3) Date and time of symptom onset Unknown (test code = 68405-3) [facility] METABOLIC PANEL (NA, K, CL, CO2, GLUCOSE, BUN, CREATININE, CA)2021-03-15 11:04:02 Test Item Value Reference Range Interpretation Comments NA (test code = 138 mmol/L 135-145 9862214410) K (test code = 3.6 mmol/L 3.5-5.0 5037319999) CL (test code = 99 mmol/L 98-108 8031971486) CO2 TOTAL (test code = 39 mmol/L 23-31 H 0820235623) AGAP (test code = <1 2-16 L 3983085818) BUN (test code = 17 mg/dL 7-23 9325867560) GLUCOSE (test code = 101 mg/dL 70-110 9561299970) CREATININE (test code = 0.45 mg/dL 0.50-1.04 L 7545860607) CALCIUM (test code = 8.6 mg/dL 8.6-10.6 1302732102) eGFR (test code = mL/min/1.73m2 5227990291) KYLE (test code = KYLE) Association of [...] tests). Lab Interpretation Abnormal (test code = 62885-8) [facility]2022-[facility]-08 10:58:44 Test Item Value Reference Range Interpretation Comments MAGNESIUM (test code = 0109792692) 2.1 mg/dL 1.7-2.4 Lab Interpretation (test code = Normal 29159-6) [facility] WITH [id number] 10:08:55 Test Item Value Reference Range Interpretation [...] RDW-SD (test code = 43.6 fL 39.0-49.9 62423-2) RDW-CV (test code = 13.6 % 12.0-15.5 788-0) PLT (test code = See_Comment [Automated 777-3) message] The sy stem which generated this result transmitted reference range : 166 - 358 10*3/ ?L. The reference r arnulfo was not used to interpret this result as normal/abnormal . MPV (test code = 9.5 fL 9.5-12.9 13875-8) NRBC/100 WBC (test See_Comment [Automat ed code = 0010462233) message] The system which generated this result transmitted reference range : 0.0 - 10.0 /100 WBCs. The refer ence range was not u sed to interpret th is result as normal/abnormal . NRBC x10^3 (test code <0.01 See_Comment [Auto mated = 5770342771) message] The s ystem which generated this result transmitted reference range : 10*3/?L. The reference range was not used to interpret this result as normal/abnormal . GRAN MAT (NEUT) % 62.7 % (test code = 770-8) IMM GRAN % (test code 0.50 % = 5399848811) LYMPH % (test code = 27.9 % 736-9) MONO % (test code = 8.4 % 5905-5) EOS % (test code = 0.3 % 713-8) BASO % (test code = 0.2 % 706-2) GRAN MAT x10^3(ANC) 3.67 10*3/uL 1.88-7.09 (test code = 0053763695) IMM GRAN x10^3 (test 0.03 10*3/uL 0.00-0.06 code = 7419463825) LYMPH x10^3 (test code 1.63 10*3/uL 1.32-3.29 = 731-0) MONO x10^3 (test code 0.49 10*3/uL 0.33-0.92 = 742-7) EOS x10^3 (test code = <0.03 0.03-0.39 L 711-2) BASO x10^3 (test code <0.03 0.01-0.07 = 704-7) Lab Interpretation Abnormal (test code = 36413-9) [facility] 11[facility]02:27 Test Item Value Reference Range Interpretation Comments MAGNESIUM (test code = 4727052071) 1.6 mg/dL 1.7-2.4 L Lab Interpretation (test code = Abnormal 93367-4) [facility] (NA, K, CL, CO2, GLUCOSE, BUN, CREATININE, CA)2021-03-14 11:02:22 Test Item Value Reference Range Interpretation Comments NA (test code = 136 mmol/L 135-145 8692586459) K (test code = 3.3 mmol/L 3.5-5.0 L 9859241511) CL (test code = 98 mmol/L 98-108 4819549245) CO2 TOTAL (test code = 37 mmol/L 23-31 H 4600948252) AGAP (test code = 2-16 L 6391993145) BUN (test code = 18 mg/dL 7-23 9656090473) GLUCOSE (test code = 100 mg/dL 70-110 7201037367) CREATININE (test code = 0.51 mg/dL 0.50-1.04 1337955501) CALCIUM (test code = 8.4 mg/dL 8.6-10.6 L 0259590719) eGFR (test code = mL/min/1.73m2 4562469455) KYLE (test code = KYLE) Association of [...] tests). Lab Interpretation Abnormal (test code = 02356-2) [facility]2022-02-07 11:02:02 Test Item Value Reference Range Interpretation Comments PHOSPHORUS (test code = 3601147393) 2.9 mg/dL 2.5-5.0 Lab Interpretation (test code = Normal 03826-9) [facility] (NA, K, CL, CO2, GLUCOSE, BUN, CREATININE, CA)2021-03-13 12:58:59 Test Item Value Reference Range Interpretation Comments NA (test code = 136 mmol/L 135-145 1540759563) K (test code = 3.3 mmol/L 3.5-5.0 L 7497773505) CL (test code = 99 mmol/L 98-108 3214217067) CO2 TOTAL (test code = 37 mmol/L 23-31 H 1563860794) AGAP (test code = <1 2-16 L 1088358723) BUN (test code = 23 mg/dL 7-23 5670933651) GLUCOSE (test code = 84 mg/dL 70-110 2170991354) CREATININE (test code = 0.53 mg/dL 0.50-1.04 5484392113) CALCIUM (test code = 8.8 mg/dL 8.6-10.6 3487552033) eGFR (test code = mL/min/1.73m2 4077077501) KYLE (test code = KYLE) Association of [...] tests). Lab Interpretation Abnormal (test code = 91436-4) [facility] WITH [id number] 12:42:20 Test Item Value Reference Range Interpretation Comments WBC (test code = See_Comment [Automated 5390-2) message] The sy stem which generated this result transmitted reference range : 4.30 - 11.10 10*3/?L. The reference range was not used to interpret this result as normal/abnormal . RBC (test code = See_Comment L [Automated 599-8) message] The sy stem which generated this [...] RDW-SD (test code = 45.0 fL 39.0-49.9 67908-3) RDW-CV (test code = 13.8 % 12.0-15.5 788-0) PLT (test code = See_Comment [Automated 777-3) message] The sy stem which generated this result transmitted reference range : 166 - 358 10*3/ ?L. The reference r arnulfo was not used to interpret this result as normal/abnormal . MPV (test code = 9.9 fL 9.5-12.9 51024-1) NRBC/100 WBC (test See_Comment [Automat ed code = 5624473436) message] The system which generated this result transmitted reference range : 0.0 - 10.0 /100 WBCs. The refer ence range was not u sed to interpret th is result as normal/abnormal . NRBC x10^3 (test code <0.01 See_Comment [Auto mated = 8458591577) message] The s ystem which generated this result transmitted reference range : 10*3/?L. The reference range was not used to interpret this result as normal/abnormal . GRAN MAT (NEUT) % 67.4 % (test code = 770-8) IMM GRAN % (test code 0.40 % = 3124896531) LYMPH % (test code = 23.3 % 736-9) MONO % (test code = 8.7 % 5905-5) EOS % (test code = 0.1 % 713-8) BASO % (test code = 0.1 % 706-2) GRAN MAT x10^3(ANC) 4.73 10*3/uL 1.88-7.09 (test code = 4524966572) IMM GRAN x10^3 (test 0.03 10*3/uL 0.00-0.06 code = 5958835282) LYMPH x10^3 (test code 1.64 10*3/uL 1.32-3.29 = 731-0) MONO x10^3 (test code 0.61 10*3/uL 0.33-0.92 = 742-7) EOS x10^3 (test code = <0.03 0.03-0.39 L 711-2) BASO x10^3 (test code <0.03 0.01-0.07 = 704-7) Lab Interpretation Abnormal (test code = 29614-1) [facility] Bpubp1474-55-41 11:43:29 Test Item Value Reference Range Interpretation Comments MAGNESIUM (test code = 3930193776) 1.7 mg/dL 1.7-2.4 Lab Interpretation (test code = Normal 21629-3) [facility] (NA, K, CL, CO2, GLUCOSE, BUN, CREATININE, CA)2021-03-11 11:43:09 Test Item Value Reference Range Interpretation Comments NA (test code = 136 mmol/L 135-145 3324298330) K (test code = 4.5 mmol/L 3.5-5.0 9174489308) CL (test code = 95 mmol/L 98-108 L 5815169574) CO2 TOTAL (test code = 40 mmol/L 23-31 H 0842377378) AGAP (test code = 2-16 L 3116050480) BUN (test code = 20 mg/dL 7-23 7287524130) GLUCOSE (test code = 150 mg/dL 70-110 H 4026100414) CREATININE (test code = 0.40 mg/dL 0.50-1.04 L 2768207560) CALCIUM (test code = 8.8 mg/dL 8.6-10.6 0665561227) eGFR (test code = mL/min/1.73m2 9015468537) KYLE (test code = KYLE) Association of [...] tests). Lab Interpretation Abnormal (test code = 48737-8) [facility] with Rcwpjglfirho5997-45-39 11:27:44 Test Item Value Reference Range Interpretation Comments WBC (test code = See_Comment [Automated 7690-2) message] The sy stem which generated this [...] RDW-SD (test code = 44.7 fL 39.0-49.9 09754-0) RDW-CV (test code = 13.5 % 12.0-15.5 788-0) PLT (test code = See_Comment [Automated 777-3) message] The sy stem which generated this result transmitted reference range : 166 - 358 10*3/ ?L. The reference r arnulfo was not used to interpret this result as normal/abnormal . MPV (test code = 10.1 fL 9.5-12.9 02458-4) NRBC/100 WBC (test See_Comment [Automat ed code = 7037353164) message] The system which generated this result transmitted reference range : 0.0 - 10.0 /100 WBCs. The refer ence range was not u sed to interpret th is result as normal/abnormal . NRBC x10^3 (test code <0.01 See_Comment [Auto mated = 4244935768) message] The s ystem which generated this result transmitted reference range : 10*3/?L. The reference range was not used to interpret this result as normal/abnormal . GRAN MAT (NEUT) % 89.2 % (test code = 770-8) IMM GRAN % (test code 0.30 % = 7657199452) LYMPH % (test code = 9.4 % 736-9) MONO % (test code = 1.1 % 5905-5) EOS % (test code = 0.0 % 713-8) BASO % (test code = 0.0 % 706-2) GRAN MAT x10^3(ANC) 5.63 10*3/uL 1.88-7.09 (test code = 5161359418) IMM GRAN x10^3 (test <0.03 0.00-0.06 code = 0010822748) LYMPH x10^3 (test code 0.59 10*3/uL 1.32-3.29 L = 731-0) MONO x10^3 (test code 0.07 10*3/uL 0.33-0.92 L = 742-7) EOS x10^3 (test code = <0.03 0.03-0.39 L 711-2) BASO x10^3 (test code <0.03 0.01-0.07 = 704-7) Lab Interpretation Abnormal (test code = 84064-6) [facility] Bbwze6286-57-84 00:54:28 Test Item Value Reference Range Interpretation Comments PHOSPHORUS (test code = 3.7 mg/dL 2.5-5.0 Slig ht hemolysis 1081776713) Lab Interpretation (test Normal code = 45214-3) [facility]viewTROPONIN [id number] 16:14:02 Test Item Value Reference Interpretation Comments Range TROPONIN I (test 0.005 ng/mL See_Comment [Automated code = 0261030799) message] The system which generated this result [...] biotin. Lab Interpretation Normal (test code = 09854-0) [facility]. METABOLIC PANEL (11439)2021-03-10 15:59:39 Test Item Value Reference Range Interpretation Comments NA (test code = 136 mmol/L 135-145 8675670888) K (test code = 4.3 mmol/L 3.5-5.0 0548291744) CL (test code = 93 mmol/L 98-108 L 2978102005) CO2 TOTAL (test code = 39 mmol/L 23-31 H 1704844801) AGAP (test code = 2-16 6511273786) BUN (test code = 12 mg/dL 7-23 7463461360) GLUCOSE (test code = 121 mg/dL 70-110 H 0880729436) CREATININE (test code = 0.40 mg/dL 0.50-1.04 L 2629562829) TOTAL BILI (test code = 0.7 mg/dL 0.1-1.4 8115981828) CALCIUM (test code = 8.9 mg/dL 8.6-10.6 1398698812) T PROTEIN (test code = 7.3 g/dL 6.3-8.2 8802687821) ALBUMIN (test code = 4.1 g/dL 3.5-5.0 7065495432) ALK PHOS (test code = 92 U/L 34-122 6797886835) ALTv (test code = 9 U/L 5-35 1742-6) AST(SGOT) (test code = 23 U/L 13-40 1622673844) eGFR (test code = mL/min/1.73m2 7734514802) KYLE (test code = KYLE) Association of [...] tests). Lab Interpretation Abnormal (test code = 50120-2) [facility]viewLIPASE, [id number] 15:58:58 Test Item Value Reference Range Interpretation Comments LIPASE (test code = 2268373727) 24 U/L 0-220 Lab Interpretation (test code = Normal 77756-4) [facility]viewaPTT2022-02-03 15:44:56 Test Item Value Reference Range Interpretation Comments APTT Patient (test See_Comment [Automat ed code = 3173-2) message] The system which generated this result transmitted reference range : 23 - 38 Seconds . The reference range was not used to interpr et this result as normal/abnormal . KYLE (test code = KYLE) The [facility] patient population mean normal value for aPTT is 30 seconds. Lab Interpretation Normal (test code = 36087-7) [facility]viewPROTHROMBIN TIME / [id number] 15:42:34 Test Item Value Reference Range Interpretation [...] tions. Lab Interpretation (test Normal code = 37810-7) [facility]viewCB WITH [id number] 15:36:36 Test Item Value Reference Range Interpretation Comments WBC (test code = See_Comment H [Automated 9290-2) message] The system which generated this result transmit blayne reference range : 4.30 - 11.10 10*3/?L. The reference range was not used to interpret this result as normal/abnormal . RBC (test code = See_Comment L [Automated 879-8) message] The system which generated this result [...] RDW-SD (test code = 45.7 fL 39.0-49.9 36002-9) RDW-CV (test code = 13.7 % 12.0-15.5 788-0) PLT (test code = See_Comment [Automated 777-3) message] The system which generated this result transmit blayne reference range : 166 - 358 10*3/ ?L. The reference range was not u sed to interpret th is result as normal/abnormal . MPV (test code = 9.7 fL 9.5-12.9 48954-3) NRBC/100 WBC (test See_Comment [Automat ed code = 3228707538) message] The system which generated this result transmit blayne reference range : 0.0 - 10.0 /100 WBCs. The reference range was not used to interpret this result as normal/abnormal . NRBC x10^3 (test code <0.01 See_Comment [Auto mated = 0697894397) message] The system which generated this result transmit blayne reference range : 10*3/?L. The reference range was not used to interpret this result as normal/abnormal . GRAN MAT (NEUT) % 83.9 % (test code = 770-8) IMM GRAN % (test code 0.40 % = 9787070857) LYMPH % (test code = 9.2 % 736-9) MONO % (test code = 4.9 % 5905-5) EOS % (test code = 1.4 % 713-8) BASO % (test code = 0.2 % 706-2) GRAN MAT x10^3(ANC) 11.59 10*3/uL 1.88-7.09 H (test code = 3972646154) IMM GRAN x10^3 (test 0.06 10*3/uL 0.00-0.06 code = 3349650830) LYMPH x10^3 (test code 1.28 10*3/uL 1.32-3.29 L = 731-0) MONO x10^3 (test code 0.68 10*3/uL 0.33-0.92 = 742-7) EOS x10^3 (test code = 0.20 10*3/uL 0.03-0.39 711-2) BASO x10^3 (test code 0.03 10*3/uL 0.01-0.07 = 704-7) Lab Interpretation Abnormal (test code = 82042-1) [facility] LhjqmgFODK-AvH-0 (COVID-19) RNA [Presence] in Respiratory specimen by CONNOR with probe mtvuczvlw9408-46-50 19:20:03 Test Item Value Reference Range Interpretation Comments SARS-CoV-2 (COVID-19) RNA Not detected Not-Detected [Presence] in Respiratory specimen by CONNOR with probe detection (test code = 21077-3) Whether patient is employed in a healthcare setting (test code = 50281-4) Whether the patient has symptoms related to condition of interest (test code = 56262-2) Patient was hospitalized because of this condition (test code = 36792-6) Whether the patient was admitted to intensive care unit (ICU) for condition of interest (test code = 30121-7) Whether patient resides in a congregate care setting (test code = 42562-5) [facility]
[2022-07-10 19:25] LABS: Absolute Lymphocytes (CBC) 0.4 K/uL (0.7-4.9); Hematocrit 32.5 % (36.0-45.0); Lymphocytes % 3.9 % (15.3-44.8); MCV 89.2 fL (80-100); MPV 7.6 fL (7.6-11.3); RBC Red Blood Cell Count 3.64 M/uL (3.86-4.86)
[2022-07-10] MEDS ORDERED: MAGNES/ALUMIN/SIMET 30ML UCUP ONE (19:27)
[2022-07-10] MEDS ORDERED: PANTOPRAZOLE 40 MG INJ ONE (19:28)
[2022-07-10] MEDS ORDERED: NA CHLORIDE 0.9% 1,000 ML ONE ×2 (19:28→23:09)
[2022-07-10] MEDS ORDERED: LIDOCAINE VISCOUS 2% SOLN 15 ML UDC ONE (19:28)
[2022-07-10] MEDS ORDERED: FENTANYL CITR 100 MCG/2 ML ONE (19:28)
--- NOTE | 2022-07-10 19:29 | RAD REPORT ---
EXAM DESCRIPTION: RAD - Chest Single View - 07/10/2022 7:21 pm CLINICAL HISTORY: DYSPNEA Chest pain. COMPARISON: Chest Single View dated 11/23/2021; Chest Single View dated 08/02/2020; Chest Single View dated 06/08/2020; Chest Single View dated 05/29/2020 FINDINGS: Portable technique limits examination quality. Advanced COPD is present. Irregular cavitary lesion in the right upper lobe with hilar retraction aga in seen. The degree of soft tissue opacification in the medial right upper lobe has increased since c omparative study and may indicate superimposed infection.
[2022-07-10 19:44] LABS: Albumin 2.9 g/dL (3.4-5.0); Bilirubin Total 0.2 mg/dL (0.2-1.0); Potassium 4.4 mEq/L (3.5-5.1); Protein, Total 7.3 g/dL (6.4-8.2); Troponin High Sensitivity 7.4 pg/mL (<58.9)
[2022-07-10] MEDS ORDERED: METOCLOPRAMIDE 10 MG/2mL INJ ONE (20:30)
--- NOTE | 2022-07-10 20:51 | RAD REPORT ---
EXAM DESCRIPTION: CTAbdomen Pelvis W Contrast - 07/10/2022 8:42 pm CLINICAL HISTORY: Abdominal pain. ABD PAIN COMPARISON: <Comparisons> TECHNIQUE: Biphasic CT imaging of the abdomen and pelvis was performed with 100 ml non-ionic IV cont rast. All CT scans are performed using dose optimization technique as appropriate and may include automated exposure control or mA/KV adjustment according to patient size. FINDINGS: Vague linear and nodular opacities in both lung bases. The liver, spleen, pancreas, adrenal glands and kidneys are within normal limits. No bowel obstruction, free air, free fluid or abscess. Nonvisualized appendix. Trace pelvic free flu id. No evidence of significant lymphadenopathy. No suspicious bony findings. IMPRESSION: No acute intra-abdominal or pelvic finding.
--- NOTE | 2022-07-10 22:40 | EDPHYS ---
Physician Documentation [facility] Name: Kallie Correia Age: 61 yrs Sex: Female : 1960 Arrival Date: 07/10/2022 Time: 18:53 Bed 19 Private MD: ED Physician Brendan Cabello HPI: 07/10 19:12 This 61 yrs old Female presents to ER via EMS with complaints of Abdominal pain, rt nausea, vomiting. 19:12 Patient presents to the ED with epigastric pain radiating to the chest with associated rt nausea, vomiting, diarrhea starting this morning. Patient states that she had a temperature up to 101 at home. The patient denies other acute complaints at this time. Pain is aching nature, not otherwise radiating, no other aggravating or alleviating factors.. Historical: - Allergies: 18:59 Albuterol; bp 18:59 Morphine; bp - PMHx: 18:59 "frozen shoulder"; COPD; Emphysema; Non-tuberculin Mycoplasma; bp - Immunization history:: Adult Immunizations up to date. - Social history:: Smoking status: Patient denies any tobacco usage or history of. - Family history:: not pertinent. ROS: 19:12 Constitutional: Negative for fever, chills, and weight loss, MS/Extremity: Negative for rt injury and deformity, Skin: Negative for injury, rash, and discoloration, Neuro: Negative for headache, weakness, numbness, tingling, and seizure, Psych: Negative for depression, anxiety, suicide ideation, homicidal ideation, and hallucinations. 19:12 Cardiovascular: Positive for chest pain, Negative for edema. 19:12 Respiratory: Positive for shortness of breath, Negative for cough. 19:12 Abdomen/GI: Positive for abdominal pain, nausea, vomiting, and diarrhea. Exam: 19:12 Constitutional: This is a well developed, well nourished patient who is awake, alert, rt and in no acute distress. Head/Face: Normocephalic, atraumatic. Chest/axilla: Normal chest wall appearance and motion. Nontender with no deformity. No lesions are appreciated. Cardiovascular: Regular rate and rhythm with a normal S1 and S2. No gallops, murmurs, or rubs. Normal PMI, no JVD. No pulse deficits. Respiratory: Lungs have equal breath sounds bilaterally, clear to auscultation and percussion. No rales, rhonchi or wheezes noted. No increased work of breathing, no retractions or nasal flaring. Skin: Warm, dry with normal turgor. Normal color with no rashes, no lesions, and no evidence of cellulitis. MS/ Extremity: Pulses equal, no cyanosis. Neurovascular intact. Full, normal range of motion. Neuro: Awake and alert, GCS 15, oriented to person, place, time, and situation. Cranial nerves II-XII grossly intact. Motor strength 5/5 in all extremities. Sensory grossly intact. Cerebellar exam normal. Normal gait. Psych: Awake, alert, with orientation to person, place and time. Behavior, mood, and affect are within normal limits. 19:12 ECG was reviewed by the Attending Physician. 19:12 Abdomen/GI: Tenderness to the epigastrium, mild guarding, no rebound, distention. Vital Signs: 18:56 BP 108 / 61; Pulse 83; Resp 98; Temp 20; Pulse Ox 98% on 3 lpm NC; bp 20:00 BP 124 / 64; Pulse 75; Resp 16; Pulse Ox 100% ; jj7 21:00 BP 109 / 62; Pulse 81; Resp 17; Pulse Ox 100% ; jj7 22:10 BP 107 / 55; Pulse 82; Resp 19; Pulse Ox 100% ; Pain 8/10; jj7 22:10 Pain Scale: Adult jj7 MDM: 19:01 Patient medically screened. rt 22:37 Data reviewed: vital signs, nurses notes, EMS record, old medical records, lab test sp4 result(s), EKG, radiologic studies, CT scan, plain films. ED course: There is small elevation of WBC 11,000 with neutrophil predominance. Chest x-ray revealed advanced COPD. Irregular cavitary lesion in the right upper lobe with hilar retraction. This is chronic lesion. Degree of soft tissue opacification in the medial right upper lobe increased compared to prior studies may indicate superimposed infection. Read as no acute intra-abdominal or pelvic findings on the CT abdomen pelvis. Will obtain CT chest. Order IV Levaquin. And blood cultures as well. Patient states she is feeling unwell will see about admission to the hospital for management of right lung pneumonia associated with cavitary lesion, and also management of nausea vomiting diarrhea . . 07/10 19:07 Order name: CBC with Diff; Complete Time: 19:46 rt 07/10 19:07 Order name: CMP; Complete Time: 19:46 rt 07/10 19:07 Order name: Lipase; Complete Time: 19:46 rt 07/10 19:07 Order name: Troponin High Sensitivity; Complete Time: 19:46 rt 07/10 19:07 Order name: BNP; Complete Time: 19:46 rt 07/10 22:36 Order name: Blood Culture Adult (2) sp4 07/11 00:17 Order name: Blood Culture EDMS 07/11 00:17 Order name: Blood Culture EDMS 07/11 04:51 Order name: CBC with Automated Diff; Complete Time: 08:07 EDMS 07/11 05:19 Order name: Basic Metabolic Panel; Complete Time: 08:07 EDMS 07/11 05:19 Order name: T4 Free; Complete Time: 08:07 EDMS 07/11 05:19 Order name: Magnesium; Complete Time: 08:07 EDMS 07/11 05:19 Order name: Thyroid Stimulating Hormone; Complete Time: 08:07 EDMS 07/11 11:53 Order name: Urinalysis w/ reflexes EDMS 07/11 13:36 Order name: Magnesium EDMS 07/10 19:07 Order name: Chest Single View XRAY; Complete Time: 19:46 rt 07/10 19:07 Order name: CT Abd/Pelvis - IV Contrast Only; Complete Time: 22:26 rt 07/10 22:35 Order name: CT Chest Wo Con sp4 07/10 22:58 Order name: Thorax Wo Con EDMS 07/10 19:07 Order name: EKG; Complete Time: 19:08 rt 07/10 19:07 Order name: EKG - Nurse/Tech; Complete Time: 19:39 rt EC:12 Rate is 86 beats/min. Rhythm is regular, Normal Sinus Rhythm with No ectopy. QRS [place] rt is Normal. AR interval is normal. QRS interval is normal. QT interval is normal. No Q waves. T waves are Normal. No ST changes noted. Interpreted by me. Administered Medications: 19:39 Drug: fentaNYL (PF) IVP 100 mcg Route: IVP; Site: right antecubital; rv 19:39 Drug: NS 0.9% IV 1000 ml Route: IV; Rate: 1 bolus; Site: right antecubital; rv 19:39 Drug: GI Cocktail without - (Maalox PO Suspension 30 ml, Lidocaine Mucous rv Membrane Liquid 2 % 15 ml) Route: PO; 19:39 Drug: Pantoprazole IVP 40 mg Route: IVP; Site: right antecubital; rv 20:24 Drug: metoCLOPramide IVP 10 mg Route: IVP; Site: right antecubital; rv 23:16 Drug: NS 0.9% IV 1000 ml Route: IV; Rate: 125 ml/hr; Site: right antecubital; jj7 23:19 Drug: HYDROmorphone IVP 1 mg Route: IVP; Site: right antecubital; jj7 23:34 Drug: LevaQUIN IVPB 750 mg Route: IVPB; Site: right antecubital; jj7 Disposition Summary: 07/10/22 22:40 Hospitalization Ordered Hospitalization Status: Inpatient Admission sp4 Provider: Edmar England sp4 Condition: Stable sp4 Problem: new sp4 Symptoms: have improved sp4 Bed/Room Type: Standard sp4 Location: Telemetry/MedSurg (Inpatient)(07/11/22 13:45) dw Room Assignment: [facility](07/11/22 14:45) dw Diagnosis - Other specified noninfective gastroenteritis and colitis sp4 - Acute gastroenteritis and colitis, right upper lung cavitary lesion, right lung sp4 pneumonia, nausea vomiting and diarrhea, intractable vomiting, abdominal pain. Forms: - Medication Reconciliation Form sp4 - SBAR form sp4 Signatures: Dispatcher [employer] EDMS Gwendolyn Alcala RN Mabel Huntley RN Renny Paz RN Duke Walsh, RN RN Shea Mcnamara, RADIAL DRILL OPERATOR RADIAL DRILL OPERATOR Duy Hurtado RN RN jj7 Durga Gatica MD MD rt Potepalov, Sergey, MD MD sp4 Corrections: (The following items were deleted from the chart) 23:04 22:40 Telemetry/MedSurg (Inpatient) sp4 23:04 22:40 sp4 07/11 13:45 07/10 23:04 BR ER HOLD [facility] 07/11 13:45 07/10 23:04 ERHOLD- [facility] 07/11 14:45 13:45 426 dw dw
--- NOTE | 2022-07-10 22:40 | ER ---
Nurse's Notes [facility] Name: Kallie Correia Age: 61 yrs Sex: Female : 1960 Arrival Date: 07/10/2022 Time: 18:53 Bed 19 Private MD: Diagnosis: Other specified noninfective gastroenteritis and colitis;Acute gastroenteritis and colitis, right upper lung cavitary lesion, right lung pneumonia, nausea vomiting and diarrhea, intractable vomiting, abdominal pain. Presentation: 07/10 18:56 Chief complaint: EMS states: CHEST PAIN, ABD PAIN, NAUSEA, VOMITING SINCE THIS AM. bp Coronavirus screen: At this time, the client does not indicate any symptoms associated with coronavirus-19. Ebola Screen: No symptoms or risks identified at this time. Initial Sepsis Screen: Does the patient meet any 2 criteria? No. Patient's initial sepsis screen is negative. Does the patient have a suspected source of infection? No. Patient's initial sepsis screen is negative. Risk Assessment: Do you want to hurt yourself or someone else? Patient reports no desire to harm self or others. Onset of symptoms was July 10, 2022. Care prior to arrival: Medication(s) given: ASA, 81 mg, x 4, zofran 4 mg, 30 MG TORADOL IV initiated. 18 GA, in the left antecubital area, Oxygen administered. via nasal cannula. 18:56 Method Of Arrival: EMS: [facility] bp 18:56 Acuity: BENJI 3 bp Triage Assessment: 18:59 General: Appears distressed, uncomfortable, Behavior is cooperative, appropriate for bp age, anxious. Pain: Complains of pain in chest and abdomen. EENT: No deficits noted. Neuro: Level of Consciousness is awake, alert, obeys commands, Oriented to Appropriate for age. Cardiovascular: Rhythm is sinus rhythm. Respiratory: No deficits noted. GI: Reports lower abdominal pain, nausea, vomiting. : No signs and/or symptoms were reported regarding the genitourinary system. Derm: No deficits noted. Musculoskeletal: No deficits noted. Historical: - Allergies: 18:59 Albuterol; bp 18:59 Morphine; bp - PMHx: 18:59 "frozen shoulder"; COPD; Emphysema; Non-tuberculin Mycoplasma; bp - Immunization history:: Adult Immunizations up to date. - Social history:: Smoking status: Patient denies any tobacco usage or history of. - Family history:: not pertinent. Screenin:00 [facility] ED Fall Risk Assessment (Adult) History of falling in the last 3 months, bp including since admission No falls in past 3 months (0 pts). Abuse screen: Denies threats or abuse. Denies injuries from another. Nutritional screening: No deficits noted. Tuberculosis screening: No symptoms or risk factors identified. Assessment: 19:00 General: SEE TRIAGE NOTE. bp 23:25 Reassessment: BLOOD CULTURES DRAWN BEFORE ANTIBIOTICS STARTED. jj7 07/11 00:57 Reassessment: REPORT GIVEN TO EDD REID. [facility] Vital Signs: 07/10 18:56 BP 108 / 61; Pulse 83; Resp 98; Temp 20; Pulse Ox 98% on 3 lpm NC; bp 20:00 BP 124 / 64; Pulse 75; Resp 16; Pulse Ox 100% ; jj7 21:00 BP 109 / 62; Pulse 81; Resp 17; Pulse Ox 100% ; jj7 22:10 BP 107 / 55; Pulse 82; Resp 19; Pulse Ox 100% ; Pain 8/10; jj7 22:10 Pain Scale: Adult [facility] ED Course: 18:56 Patient arrived in ED. rv 18:56 Renny Narayan, JEANETTE is Primary Nurse. bp 18:58 Triage completed. bp 18:59 Durga Gatica MD is Attending Physician. rt 19:00 Arm band placed on. bp 19:00 Patient has correct armband on for positive identification. Bed in low position. Call bp light in reach. Side rails up X2. 19:00 Maintain EMS IV. Dressing intact. Good blood return noted. Site clean \\T\\ dry. Gauge \\T\\ bp site: 18 G LEFT AC. 19:23 Chest Single View XRAY In Process Unspecified. EDMS 20:21 Attending Physician role handed off by Durga Gatica MD sp4 20:21 Brendan Cabello MD is Attending Physician. sp4 20:44 CT Abd/Pelvis - IV Contrast Only In Process Unspecified. EDMS 22:39 Edmar England MD is Hospitalizing Provider. sp4 23:53 Thorax Wo Con In Process Unspecified. EDMS 07/11 01:00 No provider procedures requiring assistance completed. Patient admitted, IV remains in vc1 place. Administered Medications: 07/10 19:39 Drug: fentaNYL (PF) IVP 100 mcg Route: IVP; Site: right antecubital; rv 19:39 Drug: NS 0.9% IV 1000 ml Route: IV; Rate: 1 bolus; Site: right antecubital; rv 19:39 Drug: GI Cocktail without - (Maalox PO Suspension 30 ml, Lidocaine Mucous rv Membrane Liquid 2 % 15 ml) Route: PO; 19:39 Drug: Pantoprazole IVP 40 mg Route: IVP; Site: right antecubital; rv 20:24 Drug: metoCLOPramide IVP 10 mg Route: IVP; Site: right antecubital; rv 23:16 Drug: NS 0.9% IV 1000 ml Route: IV; Rate: 125 ml/hr; Site: right antecubital; jj7 23:19 Drug: HYDROmorphone IVP 1 mg Route: IVP; Site: right antecubital; jj7 23:34 Drug: LevaQUIN IVPB 750 mg Route: IVPB; Site: right antecubital; jj7 Medication: 07/11 01:00 VIS not applicable for this client. vc1 Outcome: 07/10 22:40 Decision to Hospitalize by Provider. sp4 07/11 01:00 Admitted to ER Hold. Please see [facility] for further documentation. vc1 Condition: good Instructed on the need for admit. 15:19 Patient left the ED. jl7 Signatures: Dispatcher [employer] EDMS Chelsi Grewal RN RN jl7 Renny Narayan RN RN bp Vicente, Ronaldo, RN RN rv Calcote, Vanessa, RN RN vc1 Johnson, Juwairiyah, RN RN jj7 Durga Gatica MD MD rt Brendan Cabello MD MD sp4
[2022-07-10] MEDS ORDERED: HYDROMORPHONE HCL 1 MG/ML INJ ONE (23:09)
[2022-07-10] MEDS ORDERED: Levofloxacin 750mg IV 750 MG/150 ML BAG IV ONE (23:09)
--- NOTE | 2022-07-11 00:31 | P.HP ---
Certification for Inpatient Patient admitted to: Observation With expected LOS: <2 Midnights Patient will require the following post-hospital care: None Practitioner: I am a practitioner with admitting privileges, knowledge of patient current condition, hospital course, and medical plan of care. Services: Services provided to patient in accordance with Admission requirements found in Title 42 Section 412.3 of the Code of Federal Regulations <Rajesh Khan - Last Filed: 07/11/22 00:27> Patient History Date of Service: 07/11/22 Reason for admission: Nausea/vomiting History of Present Illness: 62-year-old female with history of advanced COPD/emphysema with previous MAC infection on home O2, steroids at home presents to the emergency department with chief complaint of nausea/vomiting/abdominal pain. Her GI symptoms began today she reports somewhere between 30 and 40 loose stools today multiple episodes of vomit. She was evaluated in the emergency department her labs are significant for white blood cell count 11 hemoglobin 10.[address] of the abdomen pelvis with IV contrast was performed which showed no acute intra-abdominal or pelvic findings. Chest x-ray was performed which revealed advanced COPD is present. Irregular cavitary lesion in the right upper lobe with hilar retraction again seen. The degree of soft tissue opacification in the medial right upper lobe has increased since comparative study and may indicate superimposed infection. A follow-up CT of the chest that contrast has been ordered and is pending currently. Patient follows with [facility] in [facility] for her pulmonary conditions and is on the transplant list for bilateral lung transplant. She denies any significant worsening in her pulmonary conditions currently is here for GI concerns. In the ER she was given IV fluids, antiemetics, pain medications, Levaquin. She is still having generalized abdominal pain/mild tenderness in the lower quadrants, frequent episodes of diarrhea and nausea. 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 -: HTN -: Hysterectomy -: Tubal ligation -: tosillectomy -: R leg sx with metal screws -: Patient has had fine-needle aspiration complicated by pneumothorax -: Bronchoscopy at [facility] - Family History Mother -: Cancer Sister -: Cancer Father -: Heart disease Brother -: Lung disease - Social History Alcohol use: No CD- Drugs: No Caffeine use: No Place of Residence: Home <Rajesh Khan Mili Naylor - Last Filed: 07/11/22 00:27> Date of Service: 07/11/22 <Edmar England - Last Filed: 07/11/22 15:46> Allergies codeine [Codeine] Allergy (Intermediate, Verified 10/23/15 06:09) Hives/Rash morphine Allergy (Intermediate, Verified 10/23/15 06:09) Hives/Rash albuterol Allergy (Verified 07/11/22 01:06) Nausea/Vomiting Home Medications: Fluticasone Propion/Salmeterol [Fluticasone-Salmeterol 250-50] 1 puff REYMUNDO BID 05/29/20 Gabapentin 400 mg PO TID 05/29/20 Pantoprazole [Protonix Tab] 40 mg PO DAILY #30 tab 05/30/20 Aspirin [Aspirin EC 81 MG] 81 mg PO DAILY 07/11/22 Flecainide Acetate 50 mg PO BID 07/11/22 Hydrocodone/Acetaminophen [Hydrocodone-Acetamin 5-325 mg] 1 tab PO TID 07/11/22 Metoprolol Succinate [Toprol Xl] 25 mg PO BID 07/11/22 Sucralfate [Carafate*] 1 gm PO TID 07/11/22 predniSONE [Prednisone*] 5 mg PO BID 07/11/22 Review of Systems 10-point ROS is otherwise unremarkable Gastrointestinal: Nausea, Vomiting, Abdominal Pain, Diarrhea <Rajesh Khan Mili Naylor - Last Filed: 07/11/22 00:27> Physical Examination - Physical Exam General: Alert, In no apparent distress, Oriented x3 HEENT: Atraumatic, PERRLA, Mucous membr. moist/pink, EOMI, Sclerae nonicteric Neck: Supple, 2+ carotid pulse no bruit, No LAD, Without JVD or thyroid abnormality Respiratory: Clear to auscultation bilaterally, Normal air movement Cardiovascular: Regular rate/rhythm, Normal S1 S2 Capillary refill: <2 Seconds Gastrointestinal: Normal bowel sounds, No tenderness Musculoskeletal: No tenderness Integumentary: No rashes Neurological: Normal speech, Normal strength at 5/5 x4 extr, Normal tone, Normal affect - Studies Laboratory Data (last 24 hrs) 07/10/22 19:15: Sodium 139, Potassium 4.4, BUN 13, Creatinine 0.57, Glucose 130 H, Total Bilirubin 0.2, AST 16, ALT 16, Alkaline Phosphatase 78, Lipase 12 L 07/10/22 19:15: WBC 11.00 H, Hgb 10.5 L, Hct 32.5 L, Plt Count 268 <Rajesh Khan - Last Filed: 07/11/22 00:27> - Studies Laboratory Data (last 24 hrs) 07/10/22 19:15: Sodium 139, Potassium 4.4, BUN 13, Creatinine 0.57, Glucose 130 H, Total Bilirubin 0.2, AST 16, ALT 16, Alkaline Phosphatase 78, Lipase 12 L 07/10/22 19:15: WBC 11.00 H, Hgb 10.5 L, Hct 32.5 L, Plt Count 268 <Edmar England - Last Filed: 07/11/22 15:46> Assessment and Plan - Plan Assessment: Infectious gastroenteritis, intractable vomiting/diarrhea History of COPD with previous MAC infection-on chronic home O2 4.5L Plan: Infectious gastroenteritis, intractable vomiting/diarrhea Continue IV fluids, IV antibiotics, stool culture sent as well as C. difficile. Patient reports greater than 30 loose stools yesterday throughout the day. Also multiple episodes of vomiting. Continue PPI, antiemetics. N.p.o. for tonight. History of COPD with previous MAC infection-on chronic home O2 4.5L No significant worsening in breathing. She is on prednisone, she is currently on 5 mg she reports her amusement equipment operator is planning on tapering her off of them next month. [facility], is currently on transplant list for bilateral lungs. DVT PPX: Lovenox Code status: Full Discharge Plan: Home Plan to discharge in: 24 Hours - Advance Directives Does patient have a Living Will: No Does patient have a Durable POA for Healthcare: No - Code Status/Comfort Care Code Status Assessed: Yes (Full code) Critical Care: No Time Spent Managing Pts Care (In Minutes): 55 <Rajesh Khan - Last Filed: 07/11/22 00:27> - Plan Patient seen and examined on rounds this morning. Reports minimal improvement since admission. States diarrhea is less frequent, less volume, but continues with abdominal discomfort. Stool studies not obtained yet Unclear etiology of symptoms Chest imaging with possible increased opacities, pulmonology consulted <Edmar England - Last Filed: 07/11/22 15:46>
[2022-07-11] MEDS ORDERED: ALBUTEROL 2.5 MG/3 ML NEB SOL NEB PRN ×2 (01:17→14:00)
[2022-07-11] MEDS ORDERED: IPRATROPIUM BROM 0.5MG/2.5ML NEB PRN (01:17)
[2022-07-11 01:26] VITALS: BMI 21.5
[2022-07-11] MEDS: METRONIDAZOLE 500mg IVPB 500 MG/100 ML BAG IV SCH ×3 (01:45→16:37)
[2022-07-11] MEDS: NA CHLORIDE 0.9% 1,000 ML IV SCH ×3 (01:45→22:26)
[2022-07-11] MEDS: ONDANSETRON 4 MG/2 ML VIAL IV PRN (01:45)
[2022-07-11] MEDS: HYDROMORPHONE HCL 0.5 MG/0.5 ML INJ IV PRN ×5 (04:23→22:21)
[2022-07-11] MEDS ORDERED: HYDROMORPHONE HCL 0.5 MG/0.5 ML INJ ONE ×3 (04:29→14:49)
[2022-07-11 04:33] LABS: Absolute Lymphocytes (CBC) 0.7 K/uL (0.7-4.9); Hematocrit 30.4 % (36.0-45.0); Lymphocytes % 9.8 % (15.3-44.8); MCV 89.8 fL (80-100); MPV 7.6 fL (7.6-11.3); RBC Red Blood Cell Count 3.38 M/uL (3.86-4.86)
[2022-07-11 05:19] LABS: Magnesium 1.4 mg/dL (1.6-2.4); Potassium 4.2 mEq/L (3.5-5.1); Thyroid Stimulating Hormone 0.755 uIU/mL (0.358-3.740)
[2022-07-11] MEDS ORDERED: Magnesium Sulfate 2gm IVPB 2 G/50 ML BAG IV ONE (05:36)
[2022-07-11] MEDS ORDERED: PROMETHAZINE INJ 25 MG/ML AMP ONE (06:20)
[2022-07-11] MEDS: PROMETHAZINE INJ 25 MG/ML AMP IV PRN (06:30)
[2022-07-11] MEDS ORDERED: ENOXAPARIN 40 MG/0.4 ML SQ SCH (09:00)
[2022-07-11] MEDS: Levofloxacin500mg IV 500 MG/100 ML BAG IV SCH (09:00)
[2022-07-11] MEDS: predniSONE 5 MG TAB PO SCH (09:00)
[2022-07-11] MEDS ORDERED: Levofloxacin500mg IV 500 MG/100 ML BAG IV ONE (10:31)
[2022-07-11] MEDS ORDERED: METRONIDAZOLE 500mg IVPB 500 MG/100 ML BAG IV ONE (10:31)
[2022-07-11] MEDS ORDERED: ENOXAPARIN 40 MG/0.4 ML SQ ONE (10:31)
--- NOTE | 2022-07-11 11:12 | RAD REPORT ---
EXAM DESCRIPTION: CT - Thorax Wo Con - 07/11/2022 6:47 am CLINICAL HISTORY: 62 years, Female, Abnormal CXR, hx mass, pneumonia? COMPARISON: 05/03/2018. FINDINGS: Multiple transaxial tomograms of the chest were obtained from the lung apices through the adrenal glands, utilizing 5 mm slice thickness at 5 mm interval reconstruction without the administra tion of IV contrast. Multiplanar reformats in the sagittal and coronal plane were generated and reviewed. This exam was performed according to our departmental dose-optimization protocol, which includes auto mated exposure control, adjustment of the mA and/or kV according to patient size and/or use of iterat amadeo reconstruction technique. The lungs parenchyma demonstrate minimal centrilobular emphysematous changes. Calcified renal mass wi thin the right upper lobe. Again there is right lung apex cavitary lesion with no significant surroun ding wall thickening measuring 6.3 x 6.3 cm on axial image 102 similar to prior study. Minimal inferi or right upper lobe parenchymal airspace opacity on axial image 15-22 could be related atypical mycob acterial infection/or less likely fungal infection. Small focus of round groundglass nonsolid nodular ity measured 1 x 0.9 cm on image 27, possibility of infection, atelectasis, carcinoma in situ are of consideration. The trachea mainstem bronchus demonstrate to be normal. There is no significant pleural and/or perica rdial effusions. The thoracic aorta demonstrate to be within normal limits. The heart is not enlarged. There are very minimal coronary artery calcifications. There is no significant mediastinal and/or hilar lymphadenopathy. The axillary regions demonstrate to be clear. The bone windows demonstrate no significant skeletal lesions. Grossly the unopacified portions of the upper abdomen demonstrated the presence of contrast within th e collecting calyceal system related to prior iodine study. IMPRESSION: Right lung apex cavitary lesion measuring 6.3 x 6.3 cm. Minimal inferior right upper lobe parenchymal airspace opacity could be related atypical mycobacteria l infection and/or less likely fungal infection. Small focus of round groundglass nonsolid nodularity measured 1 x 0.9 cm on axial possibility of infe ction, atelectasis, carcinoma in situ are of consideration. Electronically signed by: Luis Renee MD 07/11/2022 3:28 AM CDT Due to temporary technical issues with the PACS/Fluency reporting system, reports are being signed by the in house radiologists without review as a courtesy to insure prompt reporting. The interpreting radiologist is fully responsible for the content of the report.
--- NOTE | 2022-07-11 11:48 | P.CNS ---
Date of Consult: 07/11/22 Reason for Consult: Fibrocavitary changes in the right upper lobe Chief Complaint: Nausea/vomiting History of Present Illness: Patient is 62 years of age admitted with acute left lower quadrant pain nausea vomiting diarrhea history of COPD history of atypical FREDDY infection followed up by pulmonary at [facility] is on lung transplant list Allergies codeine [Codeine] Allergy (Intermediate, Verified 10/23/15 06:09) Hives/Rash morphine Allergy (Intermediate, Verified 10/23/15 06:09) Hives/Rash albuterol Allergy (Verified 07/11/22 01:06) Nausea/Vomiting Home Medications: Fluticasone Propion/Salmeterol [Fluticasone-Salmeterol 250-50] 1 puff REYMUNDO BID 05/29/20 Gabapentin 400 mg PO TID 05/29/20 Pantoprazole [Protonix Tab] 40 mg PO DAILY #30 tab 05/30/20 Aspirin [Aspirin EC 81 MG] 81 mg PO DAILY 07/11/22 Flecainide Acetate 50 mg PO BID 07/11/22 Hydrocodone/Acetaminophen [Hydrocodone-Acetamin 5-325 mg] 1 tab PO TID 07/11/22 Metoprolol Succinate [Toprol Xl] 25 mg PO BID 07/11/22 Sucralfate [Carafate*] 1 gm PO TID 07/11/22 predniSONE [Prednisone*] 5 mg PO BID 07/11/22 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 -: HTN -: Hysterectomy -: Tubal ligation -: tosillectomy -: R leg sx with metal screws -: Patient has had fine-needle aspiration complicated by pneumothorax -: Bronchoscopy at [facility] -: Lung transplant - Family History Mother Medical History: Cancer Sister Medical History: Cancer Father Medical History: Heart disease Brother Medical History: Lung disease - Social History Smoking Status: Current every day smoker Alcohol use: No CD- Drugs: No Caffeine use: No Place of Residence: Home Review of Systems General: Weakness Respiratory: Shortness of Breath Gastrointestinal: As per HPI Physical Examination Temp Pulse Resp BP Pulse Ox 97.8 F 73 18 110/63 100 07/11/22 08:00 07/11/22 08:00 07/11/22 10:48 07/11/22 08:00 07/11/22 10:48 General: Alert, Oriented x3, Mild distress HEENT: Atraumatic Neck: Supple Respiratory: Clear to auscultation bilaterally, Diminished Cardiovascular: No edema, Regular rate/rhythm, Normal S1 S2 Gastrointestinal: Normal bowel sounds, Tenderness (Tenderness in the left lower quadrant) Musculoskeletal: No clubbing, No swelling Laboratory Data (last 24 hrs) 07/10/22 19:15: Sodium 139, Potassium 4.4, BUN 13, Creatinine 0.57, Glucose 130 H, Total Bilirubin 0.2, AST 16, ALT 16, Alkaline Phosphatase 78, Lipase 12 L 07/10/22 19:15: WBC 11.00 H, Hgb 10.5 L, Hct 32.5 L, Plt Count 268 - Problems (1) Pulmonary cavitary lesion Onset Date: 10/25/15 Current Visit: No Status: Acute Plan: Patient is 62 years of age with a history of severe COPD patient has right upper lobe fibrocavitary changes there is a history of atypical Mycobacterium infection was treated with 2 years of multiple antibiotics as per patient right now there is no fever or weight loss chemistries reviewed mild hypokalemia no work-up. Needed patient to follow-up with her video production specialist at [facility] have not seen her in my clinic for the past 2 years increase her stress dose of steroids prednisone 10 mg twice a day while she is sick and at baseline she takes 5 mg (2) Left lower quadrant abdominal pain Current Visit: Yes Status: Acute Plan: Patient admitted with acute left lower quadrant pain with slight decline in her hemoglobin CT scan of the abdomen pelvis was however negative patient is on antibiotic kidney function is normal
[2022-07-11 11:52] LABS: Specific Gravity > 1.030 (1.005-1.030); Urine Bacteria <20 /HPF (<20); Urine Bilirubin NEGATIVE (Negative); Urine Blood Trace (Negative); Urine Clarity Clear (Clear); Urine Color Light-Yellow (Yellow); Urine Glucose NEGATIVE (Negative); Urine Mucus Slight /HPF (None Seen); Urine Protein TRACE (Negative); Urine RBC <5 /HPF (None Seen); Urine Urobilinogen Normal (Normal); Urine pH 5.5 (5.0-7.0)
[2022-07-11] MEDS ORDERED: NA CHLORIDE 0.9% 1,000 ML ONE (12:15)
[2022-07-11] MEDS: FLECAINIDE 100 MG TAB PO SCH (21:00)
[2022-07-11] MEDS ORDERED: HOME MED 1 EA UNK (Flecainide Acetate [Flecainide Acetate] 50 MG Tablet) PO SCH (21:00)
[2022-07-11] MEDS: GABAPENTIN 400 MG CAP PO SCH (21:01)
[2022-07-11] MEDS: SUCRALFATE 1 GM TABLET PO SCH (21:02)
[2022-07-12] MEDS: ONDANSETRON 4 MG/2 ML VIAL IV PRN (00:08)
[2022-07-12] MEDS: METRONIDAZOLE 500mg IVPB 500 MG/100 ML BAG IV SCH ×3 (01:00→16:07)
[2022-07-12] MEDS: HYDROCODONE/APAP 5/325 MG TAB PO PRN (01:46)
[2022-07-12] MEDS: PROMETHAZINE INJ 25 MG/ML AMP IV PRN ×3 (01:55→15:09)
[2022-07-12] MEDS: HYDROMORPHONE HCL 0.5 MG/0.5 ML INJ IV PRN ×4 (03:02→21:05)
[2022-07-12 06:56] LABS: Absolute Lymphocytes (CBC) 0.8 K/uL (0.7-4.9); Hematocrit 27.5 % (36.0-45.0); Lymphocytes % 15.7 % (15.3-44.8); MCV 89.9 fL (80-100); MPV 7.6 fL (7.6-11.3); RBC Red Blood Cell Count 3.07 M/uL (3.86-4.86)
[2022-07-12 07:05] LABS: Magnesium 1.7 mg/dL (1.6-2.4); Potassium 3.4 mEq/L (3.5-5.1)
--- NOTE | 2022-07-12 07:10 | P.PN ---
Date of Service: 07/12/22 Subjective: diarrhea today (no longer red), less frequent urge to go lower abdominal pain is "unbearable", intermittent relief lasting for 30-60 min after medication remains nauseated ROS: 10 point ROS as noted above, otherwise negative Physical Exam: GEN: Alert, oriented, NAD HEENT: Normal conjunctiva, sclera anicteric CV: Regular rate and rhythm, no edema Pulm: Nonlabored respirations on 4L NC ABD: Soft, moderate lower abdominal tenderness, nondistended Neuro: Normal speech, normal affect vitals reviewed Problem List: Infectious gastroenteritis, intractable vomiting/diarrhea History of COPD with previous MAC infection-on chronic home O2 4.5L Infectious gastroenteritis, intractable vomiting/diarrhea CT abdomen (07/10): negative CT chest (07/10): Right lung apex cavitary lesion measuring 6.3 x 6.3 cm. Minimal inferior right upper lobe parenchymal airspace opacity could be related atypical mycobacterial infection and/or less likely fungal infection. Small focus of round groundglass nonsolid nodularity measured 1 x 0.9 cm on axial possibility of infection, atelectasis, carcinoma in situ are of consideration. Continue IVF IV antibiotics stool culture, C. difficile. pending Patient reports greater than 30 loose stools yesterday throughout the day. Also multiple episodes of vomiting. improving reported bloody BM GI consulted Continue PPI, antiemetics. NPO for tentative scope today (07/12) hgb down 9.6 -> 8.7 (07/12) History of COPD with previous MAC infection-on chronic home O2 4.5L No significant worsening in breathing. She is on prednisone, she is currently on 5 mg she reports her appraiser is planning on tapering her off of them next month. She follows with [facility], is currently on transplant list for bilateral lungs. Pulmonology consulted increased prednisone 10 mg twice a day 07/12 VTE: Lovenox Code: Full Dispo: Home 48 hrs
[2022-07-12] MEDS ORDERED: SODIUM CHLORIDE 0.9% 10ML INJ IV PRN (07:20)
--- NOTE | 2022-07-12 07:21 | EKG ---
Test Date: 2022-07-10 Test Time: 19:10:38 [facility] Staff: RV MEASUREMENT RESULTS: Intervals: Rate: 86 IN: 166 QRSD: 76 QT: 354 QTc: 423 [place]: P: 89 IN: 166 QRS: 58 T: 72 INTERPRETIVE STATEMENTS: Normal sinus rhythm Right atrial enlargement Borderline ECG Compared to ECG 08/02/2020 12:13:21 Sinus tachycardia no longer present Ventricular premature complex(es) no longer present Electronically Signed On 07-12-22 07:15:02 CDT by Jesus Bryan
[2022-07-12] MEDS ORDERED: MAGNESIUM SULFATE 1 gm IVPB 1 GM/100 ML BAG IV ONE (08:06)
[2022-07-12] MEDS ORDERED: POTASSIUM CL SA 10 MEQ TAB PO ONE ×2 (08:07→15:26)
[2022-07-12] MEDS: PANTOPRAZOLE 40 MG INJ IVP SCH ×2 (08:22→21:06)
[2022-07-12] MEDS: FLECAINIDE 100 MG TAB PO SCH ×2 (08:22→15:08)
[2022-07-12] MEDS: GABAPENTIN 400 MG CAP PO SCH ×3 (08:22→21:05)
[2022-07-12] MEDS: Levofloxacin500mg IV 500 MG/100 ML BAG IV SCH (08:26)
[2022-07-12] MEDS: predniSONE 5 MG TAB PO SCH (08:27)
[2022-07-12] MEDS: SUCRALFATE 1 GM TABLET PO SCH ×3 (08:27→21:05)
[2022-07-12] MEDS: NA CHLORIDE 0.9% 1,000 ML IV SCH ×2 (08:42→17:17)
[2022-07-12] MEDS ORDERED: PANTOPRAZOLE 40MG TABLET PO SCH (09:00)
[2022-07-12] MEDS ORDERED: Ringers Lactate 500 ML IV ONE (10:27)
[2022-07-12] MEDS ORDERED: EPINEPHRINE/PF 1 MG/ML AMP ONE (10:41)
[2022-07-12] MEDS ORDERED: LABETALOL 20 MG/4ML SYRINGE IV ONE (10:41)
[2022-07-12] MEDS ORDERED: LIDOCAINE 1% MPF 5 ML VIAL ONE (10:42)
[2022-07-12] MEDS ORDERED: propofoL 200 MG/20 ML VIAL IV ONE (10:42)
[2022-07-12] MEDS: predniSONE 10 MG TAB PO SCH (21:05)
[2022-07-13] MEDS: METRONIDAZOLE 500mg IVPB 500 MG/100 ML BAG IV SCH ×3 (01:47→16:35)
[2022-07-13] MEDS: HYDROMORPHONE HCL 0.5 MG/0.5 ML INJ IV PRN ×5 (03:43→22:13)
[2022-07-13] MEDS: NA CHLORIDE 0.9% 1,000 ML IV SCH ×2 (05:33→13:17)
[2022-07-13 06:08] LABS: Absolute Lymphocytes (CBC) 0.6 K/uL (0.7-4.9); Hematocrit 31.5 % (36.0-45.0); MCV 89.3 fL (80-100); MPV 7.5 fL (7.6-11.3); RBC Red Blood Cell Count 3.53 M/uL (3.86-4.86)
[2022-07-13 06:25] LABS: Magnesium 1.7 mg/dL (1.6-2.4); Potassium 4.4 mEq/L (3.5-5.1)
[2022-07-13] MEDS ORDERED: MAGNESIUM SULFATE 1 gm IVPB 1 GM/100 ML BAG IV ONE (07:06)
--- NOTE | 2022-07-13 07:08 | P.PN ---
Date of Service: 07/13/22 Subjective: feels slightly better today diarrhea, ~2 episodes since yesterday hard time chewing food yesterday due to no dentures; switched to soft/low fiber lower abdominal pain improving coughing more frequently, with some blood (normal per Pt.) ROS: 10 point ROS as noted above, otherwise negative Physical Exam: GEN: Alert, oriented, NAD HEENT: Normal conjunctiva, sclera anicteric CV: Regular rate and rhythm, intermittent tachycardia, no edema Pulm: Nonlabored respirations on 3L NC ABD: Soft, moderate lower abdominal tenderness, nondistended Neuro: Normal speech, normal affect vitals reviewed Problem List: Infectious gastroenteritis, intractable vomiting/diarrhea acute on chronic anemia, multifactorial History of COPD with previous MAC infection-on chronic home O2 4.5L Infectious gastroenteritis, intractable vomiting/diarrhea CT abdomen (07/10): negative CT chest (07/10): Right lung apex cavitary lesion measuring 6.3 x 6.3 cm. Minimal inferior right upper lobe parenchymal airspace opacity could be related atypical mycobacterial infection and/or less likely fungal infection. Small focus of round groundglass nonsolid nodularity measured 1 x 0.9 cm on axial possibility of infection, atelectasis, carcinoma in situ are of consideration. Continue IVF IV Levaquin/Flagyl (07/11-) stool culture pending blood culture: NGTD Patient reports greater than 30 loose stools 07/11 throughout the day. Also multiple episodes of vomiting. reported bloody BM - no further episodes ~2 episodes of diarrhea last 24 hrs (07/13) improving GI consulted s/p EGD (07/12): noted hemorrhagic gastritis Continue PPI, antiemetics. acute on chronic anemia, multifactorial blood loss anemia component GI bleed appears to be resolved hgb up to 10 from 8.7, suspect not accurate result; recheck in AM History of COPD with previous MAC infection-on chronic home O2 4.5L No significant worsening in breathing. She is on prednisone, she is currently on 5 mg at home she reports her curator of education is planning on tapering her off of them next month. She follows with [facility], is currently on transplant list for bilateral lungs. Pulmonology consulted increased prednisone 10 mg twice a day 07/12 VTE: ambulatory, lovenox dc'd secondary to gi bleed Code: Full Dispo: Home ~48 hrs
[2022-07-13] MEDS: Levofloxacin500mg IV 500 MG/100 ML BAG IV SCH (08:31)
[2022-07-13] MEDS: SUCRALFATE 1 GM TABLET PO SCH ×3 (08:33→20:38)
[2022-07-13] MEDS: METOPROLOL XL 25 MG TAB PO SCH ×2 (08:33→20:39)
[2022-07-13] MEDS: FLECAINIDE 100 MG TAB PO SCH ×2 (08:33→20:37)
[2022-07-13] MEDS: GABAPENTIN 400 MG CAP PO SCH ×3 (08:33→20:37)
[2022-07-13] MEDS: PANTOPRAZOLE 40 MG INJ IVP SCH ×2 (08:33→20:39)
[2022-07-13] MEDS: predniSONE 10 MG TAB PO SCH ×2 (08:34→20:38)
[2022-07-13 08:43] LABS: Blood Morphology Comment NOT SEEN (NOT SEEN); Platelet Estimate ADEQ; White Blood Cell Scan <4% BANDS NOTED (OK)
[2022-07-13 21:26] VITALS: O2SAT 99
[2022-07-14] MEDS: HYDROCODONE/APAP 5/325 MG TAB PO PRN ×2 (00:02→06:23)
[2022-07-14] MEDS: NA CHLORIDE 0.9% 1,000 ML IV SCH ×2 (00:02→09:17)
[2022-07-14] MEDS: METRONIDAZOLE 500mg IVPB 500 MG/100 ML BAG IV SCH ×3 (00:02→16:58)
[2022-07-14] MEDS: HYDROMORPHONE HCL 0.5 MG/0.5 ML INJ IV PRN ×4 (02:15→22:31)
[2022-07-14 04:58] LABS: Absolute Lymphocytes (CBC) 0.6 K/uL (0.7-4.9); Hematocrit 28.1 % (36.0-45.0); Lymphocytes % 8.6 % (15.3-44.8); MCV 88.8 fL (80-100); RBC Red Blood Cell Count 3.17 M/uL (3.86-4.86)
[2022-07-14 05:08] LABS: Magnesium 1.7 mg/dL (1.6-2.4); Potassium 4.1 mEq/L (3.5-5.1)
[2022-07-14] MEDS ORDERED: MAGNESIUM SULFATE 1 gm IVPB 1 GM/100 ML BAG IV ONE (06:00)
--- NOTE | 2022-07-14 07:10 | P.PN ---
Date of Service: 07/14/22 Subjective: feeling better today; ate some eggs and drank coffee without issue remains nauseated and in pain; episodes are becoming less frequent slight improvement in pain (09/14) no BM today, feels constipated ROS: 10 point ROS as noted above, otherwise negative Physical Exam: GEN: Alert, oriented, NAD HEENT: Normal conjunctiva, sclera anicteric CV: Regular rate and rhythm, intermittent tachycardia, no edema Pulm: Nonlabored respirations on 3L NC ABD: Soft, mild-moderate lower abdominal tenderness, nondistended Neuro: Normal speech, normal affect vitals reviewed Problem List: Infectious gastroenteritis, intractable vomiting/diarrhea acute on chronic anemia, multifactorial History of COPD with previous MAC infection-on chronic home O2 4.5L Infectious gastroenteritis, intractable vomiting/diarrhea CT abdomen (07/10): negative CT chest (07/10): Right lung apex cavitary lesion measuring 6.3 x 6.3 cm. Minimal inferior right upper lobe parenchymal airspace opacity could be related atypical mycobacterial infection and/or less likely fungal infection. Small focus of round groundglass nonsolid nodularity measured 1 x 0.9 cm on axial possibility of infection, atelectasis, carcinoma in situ are of conside ration. DC ivf IV Levaquin/Flagyl (07/11-) stool culture pending blood culture: NGTD Patient reports greater than 30 loose stools 07/11 throughout the day. Also multiple episodes of vomiting. reported bloody BM before/on admit - no further episodes ~2 episodes of diarrhea (07/13) improving no BM (07/14) GI consulted s/p EGD (07/12): noted hemorrhagic gastritis Continue PPI, antiemetics. dc dilaudid, increased norco 07/14 acute on chronic anemia, multifactorial blood loss anemia component GI bleed appears to be resolved hgb 9.1 (07/14) check iron studies History of COPD with previous MAC infection-on chronic home O2 4.5L No significant worsening in breathing. She is on prednisone, she is currently on 5 mg at home she reports her side piece coverer is planning on tapering her off of them next month. She follows with [facility], is currently on transplant list for bilateral lungs. Pulmonology consulted increased prednisone 10 mg twice a day 07/12 VTE: ambulatory, lovenox dc'd secondary to gi bleed Code: Full Dispo: Home ~24 hrs
[2022-07-14] MEDS: GABAPENTIN 400 MG CAP PO SCH ×3 (08:19→20:29)
[2022-07-14] MEDS: FLECAINIDE 100 MG TAB PO SCH ×2 (08:19→21:56)
[2022-07-14] MEDS: ONDANSETRON 4 MG/2 ML VIAL IV PRN (08:19)
[2022-07-14] MEDS: PANTOPRAZOLE 40 MG INJ IVP SCH ×2 (08:19→20:31)
[2022-07-14] MEDS: SUCRALFATE 1 GM TABLET PO SCH ×3 (08:19→20:29)
[2022-07-14] MEDS: predniSONE 10 MG TAB PO SCH ×2 (08:20→20:29)
[2022-07-14] MEDS: Levofloxacin500mg IV 500 MG/100 ML BAG IV SCH (08:20)
[2022-07-14] MEDS: METOPROLOL XL 25 MG TAB PO SCH ×2 (08:21→20:30)
[2022-07-14] MEDS: HYDROCODONE/APAP 10/325 TAB PO PRN (13:03)
[2022-07-15] MEDS: METRONIDAZOLE 500mg IVPB 500 MG/100 ML BAG IV SCH ×2 (01:09→08:10)
[2022-07-15 04:53] LABS: Hematocrit 28.5 % (36.0-45.0); MCV 89.2 fL (80-100); MPV 8.1 fL (7.6-11.3); RBC Red Blood Cell Count 3.19 M/uL (3.86-4.86)
[2022-07-15 05:08] LABS: Magnesium 1.5 mg/dL (1.6-2.4)
[2022-07-15] MEDS ORDERED: Magnesium Sulfate 2gm IVPB 2 G/50 ML BAG IV ONE (06:00)
--- NOTE | 2022-07-15 07:12 | P.PN ---
Date of Service: 07/15/22 Subjective: still requiring pain medication; unsure if PO will be enough 1 episode of diarrhea today ROS: 10 point ROS as noted above, otherwise negative Physical Exam: GEN: Alert, oriented, NAD HEENT: Normal conjunctiva, sclera anicteric CV: Regular rate and rhythm, intermittent tachycardia, no edema Pulm: Nonlabored respirations on 3L NC ABD: Soft, mild-moderate lower abdominal tenderness, nondistended Neuro: Normal speech, normal affect vitals reviewed Problem List: Infectious gastroenteritis, intractable vomiting/diarrhea acute on chronic anemia, multifactorial History of COPD with previous MAC infection-on chronic home O2 4.5L Infectious gastroenteritis, intractable vomiting/diarrhea CT abdomen (07/10): negative CT chest (07/10): Right lung apex cavitary lesion measuring 6.3 x 6.3 cm. Minimal inferior right upper lobe parenchymal airspace opacity could be related atypical mycobacterial infection and/or less likely fungal infection. Small focus of round groundglass nonsolid nodularity measured 1 x 0.9 cm on axial possibility of infection, atelectasis, carcinoma in situ are of consideration. DC ivf IV Levaquin/Flagyl (07/11-) stool culture pending blood culture: NGTD Patient reports greater than 30 loose stools 07/11 throughout the day. Also multiple episodes of vomiting. reported bloody BM before/on admit - no further episodes ~2 episodes of diarrhea (07/13) improving no BM (07/14) GI consulted s/p EGD (07/12): noted hemorrhagic gastritis Continue PPI, antiemetics. dc dilaudid, increased norco 07/14 acute on chronic anemia, multifactorial blood loss anemia component GI bleed appears to be resolved hgb 9.1 (07/14) check iron studies History of COPD with previous MAC infection-on chronic home O2 4.5L No significant worsening in breathing. She is on prednisone, she is currently on 5 mg at home she reports her data management analyst is planning on tapering her off of them next month. She follows with [facility], is currently on transplant list for bilateral lungs. Pulmonology consulted increased prednisone 10 mg twice a day 07/12 VTE: ambulatory, lovenox dc'd secondary to gi bleed Code: Full Dispo: Home ~24 hrs
[2022-07-15] MEDS: GABAPENTIN 400 MG CAP PO SCH ×2 (08:11→14:02)
[2022-07-15] MEDS: FLECAINIDE 100 MG TAB PO SCH (08:11)
[2022-07-15] MEDS: Levofloxacin500mg IV 500 MG/100 ML BAG IV SCH (08:11)
[2022-07-15] MEDS: SUCRALFATE 1 GM TABLET PO SCH ×2 (08:11→14:02)
[2022-07-15] MEDS: METOPROLOL XL 25 MG TAB PO SCH (08:13)
[2022-07-15] MEDS: predniSONE 10 MG TAB PO SCH (08:13)
[2022-07-15] MEDS: PANTOPRAZOLE 40 MG INJ IVP SCH (08:13)
[2022-07-15] MEDS: HYDROCODONE/APAP 10/325 TAB PO PRN (08:37)
[2022-07-15 11:28] VITALS: BP 103/55; TEMP 97.5
--- NOTE | 2022-07-15 14:02 | P.DS ---
Admission Date: 07/12/22 Discharge Date: 07/15/22 Disposition: ROUTINE DISCHARGE Discharge Condition: GOOD Reason for Admission: Nausea/vomiting Consultations: Gastrointestinal - Dr. Sinha Pulmonology - Dr. Crystal Brief History of Present Illness: 62 yo F, PMH: advanced COPD/emphysema with previous MAC infection on home O2, steroids at home Presented to ED with nausea/vomiting/abdominal pain, found to have acute gastroenteritis with suspected GI bleed. Her GI symptoms began today she reports somewhere between 30 and 40 loose stools today multiple episodes of vomit. CT abd/pelvis with IV contrast showed no acute intra-abdominal or pelvic findings. She denies any significant worsening in her pulmonary conditions currently is here for GI concerns. In the ER she was given IV fluids, antieme tics, pain medications, Levaquin. She is still having generalized abdominal pain/mild tenderness in the lower quadrants, frequent episodes of diarrhea and nausea. Hospital Course: Problem List: Infectious gastroenteritis, intractable vomiting/diarrhea acute on chronic anemia, multifactorial History of COPD with previous MAC infection-on chronic home O2 4.5L Patient presented with nausea, vomiting, and abdominal pain. She was treated for acute gastroenteritis with antibiotics, bowel rest, and pain control. CT chest/abd/pelvis done without any acute findings. She reported bloody bowel movement prior to admission and in the ED. She did not have any further bleeding. GI (Dr. Sinha) was consulted and patient underwent EGD: noted hemorrhagic gastritis, no active bleed. She received levaquin, flagyl, and resumed on her home PPI and carafate. She had gradual improvement of her symptoms and reported she felt ready to be discharged home. Continue antibiotics for 10 more days (levaquin & flagyl), continue home dose of pain medication. Follow up: PCP within 1 week GI in ~4 weeks Physical Exam: GEN: Alert, oriented, NAD HEENT: Normal conjunctiva, sclera anicteric CV: Regular rate and rhythm, no edema Pulm: Nonlabored respirations on 3L NC ABD: Soft, mild lower abdominal tenderness, nondistended Neuro: Normal speech, normal affect Vital Signs/Physical Exam: Temp Pulse Resp BP Pulse Ox 97.5 F 65 14 103/55 L 99 07/15/22 11:27 07/15/22 11:27 07/15/22 11:27 07/15/22 11:27 07/15/22 11:27 Laboratory Data at Discharge: WBC 9.30 thou/uL (4.3-10.9) 07/15/22 04:00 Hgb 9.3 g/dL (12.0-15.0) L 07/15/22 04:00 Hct 28.5 % (36.0-45.0) L 07/15/22 04:00 Plt Count 270 thou/uL (152-406) 07/15/22 04:00 Sodium 137 mEq/L (136-145) 07/15/22 04:00 Potassium 4.0 mEq/L (3.5-5.1) 07/15/22 04:00 BUN 8 mg/dL (7-18) 07/15/22 04:00 Creatinine 0.62 mg/dL (0.55-1.02) 07/15/22 04:00 Glucose 204 mg/dL (74-106) H 07/15/22 04:00 Magnesium 2.1 mg/dL (1.6-2.4) 07/15/22 12:53 Total Bilirubin 0.2 mg/dL (0.2-1.0) 07/10/22 19:15 AST 16 U/L (15-37) 07/10/22 19:15 ALT 16 U/L (13-56) 07/10/22 19:15 Alkaline Phosphatase 78 U/L (45-117) 07/10/22 19:15 Lipase 12 U/L (13-75) L 07/10/22 19:15 Home Medications: Fluticasone Propion/Salmeterol [Fluticasone-Salmeterol 250-50] 1 puff REYMUNDO BID 05/29/20 Gabapentin 400 mg PO TID 05/29/20 Pantoprazole [Protonix Tab*] 40 mg PO DAILY #30 tab 05/30/20 Aspirin [Aspirin EC 81 MG] 81 mg PO DAILY 07/11/22 Flecainide Acetate 50 mg PO BID 07/11/22 Hydrocodone/Acetaminophen [Hydrocodone-Acetamin 5-325 mg] 1 tab PO TID 07/11/22 Metoprolol Succinate [Toprol Xl*] 25 mg PO BID 07/11/22 Sucralfate [Carafate*] 1 gm PO TID 07/11/22 predniSONE [Prednisone*] 5 mg PO BID 07/11/22 levoFLOXacin [Levaquin] 500 mg PO DAILY 10 Days #10 tab 07/15/22 metroNIDAZOLE [Flagyl] 500 mg PO Q8H 10 Days #30 tab 07/15/22 New Medications: metroNIDAZOLE [Flagyl] 500 mg PO Q8H 10 Days #30 tab levoFLOXacin [Levaquin] 500 mg PO DAILY 10 Days #10 tab Physician Discharge Instructions: Patient presented with nausea, vomiting, and abdominal pain. She was treated for acute gastroenteritis with antibiotics, bowel rest, and pain control. CT chest/abd/pelvis done without any acute findings. She reported bloody bowel movement prior to admission and in the ED. She did not have any further bleeding. GI (Dr. Sinha) was consulted and patient underwent EGD: noted hemorrhagic gastritis, no active bleed. She received levaquin, flagyl, and resumed on her home PPI and carafate. She had gradual improvement of her symptoms and reported she felt ready to be discharged home. Continue antibiotics for 10 more days (levaquin & flagyl), continue home dose of pain medication. Follow up: PCP within 1 week GI in ~4 weeks Followup: Rahul Villa PA [Primary Care Provider] - Time spent managing pt's care (in minutes): 45
--- NOTE | 2022-07-20 16:20 | CON ---
Reason For Consultation: Nausea, vomiting, abdominal pain, suspected GI bleed. History Of Presenting Illness: The patient is a 62-year-old woman with history of advanced COPD, emp hysema, previous MAC infection, on home oxygen, steroids, came to the ER with nausea, vomiting, and k nee pain. She also found to be anemic, also had mild anemia. GI consultation was requested. Past Medical History: As above. Past Surgical History: Hysterectomy, tubal ligation, cholecystectomy, right leg surgery, FNAC for co mplicated pneumothorax, bronchoscopy. Family History: Noncontributory. Social History: Denies current toxic habits. Review of Systems: GI and respiratory as in HPI, otherwise negative. Remainder of review of systems negative. Physical Examination: Vital Signs: Reviewed. The patient is normotensive, not tachycardic, not tachypneic, but she is dep endent on oxygen, afebrile. HEENT: Head normocephalic. Pupils equally reactive. Neck: Supple. Chest: Bilateral air entry decreased. Some crepitations heard. Abdomen: Soft, nontender, nondistended. Bowel sounds present. Extremities: No pedal edema. Laboratory Data: Reviewed. As mentioned above, mild anemia. Impression: A 62-year-old woman with severe significant respiratory issues with nausea, vomiting, ab dominal pain, diarrhea, and anemia. We will need to evaluate for peptic ulcer disease. Also, we isela l check for celiac. Plan: Continue current management, keep the patient n.p.o., PPI, and schedule the patient for an end oscopy. Risks and complication of the procedure, which include bleeding, infection, perforation, ane sthesia complication were discussed. She understands and agrees. US/MODL Voice ID: [id number] Report ID: [id number]
== END 2022-07-15 14:46 | disposition home health service (06) | DRG 391 ==
LOC: ER 18:53 → ERHOLD 07-11 00:20 → 4TH 07-11 14:37 → OBSVTOIN 07-12 15:22
PROVIDERS: ADMIT Hospitalist; ATTEND Hospitalist
PROC: 0DB78ZX Excision of Stomach, Pylorus, Via Natural or Artificial Opening Endoscopic, Diagnostic (ICD-10-PCS; 2022-07-12)
PROC: 0DB68ZX Excision of Stomach, Via Natural or Artificial Opening Endoscopic, Diagnostic (ICD-10-PCS; 2022-07-12)
PROC: 0DB98ZX Excision of Duodenum, Via Natural or Artificial Opening Endoscopic, Diagnostic (ICD-10-PCS; principal; 2022-07-12 12:00)
DX: A09 Infectious gastroenteritis and colitis, unspecified (principal); K29.71 Gastritis, unspecified, with bleeding; J98.4 Other disorders of lung; J43.9 Emphysema, unspecified; D64.9 Anemia, unspecified; E87.6 Hypokalemia; I10 Essential (primary) hypertension; F17.200 Nicotine dependence, unspecified, uncomplicated; Z88.8 Allergy status to other drugs, medicaments and biological substances; Z88.5 Allergy status to narcotic agent; Z76.82 Awaiting organ transplant status; Z98.51 Tubal ligation status; Z79.82 Long term (current) use of aspirin; Z99.81 Dependence on supplemental oxygen; Z79.52 Long term (current) use of systemic steroids; Z79.899 Other long term (current) drug therapy; Z90.710 Acquired absence of both cervix and uterus
CPT/HCPCS: 36415; 71045; 71250; 74177; 80048; 80053; 81001; 83540; 83690; 83735; 83880; 84132; 84439; 84443; 84466; 84484; 85025; 85027; 87040; 88305; 88312; 93005; 94760; 96374; 96375; 99285; C9113; G0378; J0171; J1170; J1650; J2001; J2405; J2550; J2704; J2765; J3010; J3475; J7030; J7512; Q9967

== ENCOUNTER 2022-11-06 18:30 | Inpatient (IN) | payer OTHER ==
--- OUTSIDE RECORDS SUMMARY | 2022-11-06 18:34 | XMS REPORT | Clinical Summary ---
:1960 Author Organization [facility] Address [address] [place] [address] Care Team Providers Name Role Phone Rachel [...] Additional history exists Results Not on fileafter 11/06/2021 Insurance Payer Benefit Plan / Subscriber ID Effective Dates Phone Addre ss Type Group MEDICARE MEDICARE PART [id number] 2013-[facility] [employer] [phone] [facility] Medicare A AND B t 2 SOLUTIONS [address] [place] [id number] Care Teams Perforator Loader Relationship Specialty Start Date End Date Rachel Greenberg MD PCP - General 04/07/15 Daria Roth MD PCP - External Referring 12/02/13 Daria Roth MD PCP - External Follow Up A 12/02/13 Dennis Trent MD Physician 04/14/[address] [place] [id number] Rachel Greenberg MD Physician 04/14/15 Leidy Scanlon PA Physician [employer] 04/14/15 [facility] [place] [address] Leigh Johnson PA Physician [employer] 04/14/[address] [place] [id number] Kylah Redd MD Physician 04/14/[address] [place] [id number] Tani Daniel MD Physician 04/14/[address] [place] [id number] Pham Thomas APRN Nurse Practitioner 04/14/[address] [place] [id number] Verna Felipe APRN Nurse Practitioner 04/14/[address] [place] [id number] Emile Ochoa PA Physician [employer] 04/14/15 [facility] [place] [address]
[2022-11-06 18:53] LABS: Absolute Lymphocytes (CBC) 3.6 K/uL (0.7-4.9); Hematocrit 30.9 % (36.0-45.0); Lymphocytes % 15.3 % (15.3-44.8); MCV 88.9 fL (80-100); MPV 7.4 fL (7.6-11.3); Platelets 465 thou/uL (152-406); RBC Red Blood Cell Count 3.48 M/uL (3.86-4.86)
[2022-11-06] MEDS ORDERED: MAGNESIUM SULFATE 1 gm IVPB 1 GM/100 ML BAG IV ONE (18:54)
[2022-11-06] MEDS ORDERED: NA CHLORIDE 0.9% 250 ML ONE ×2 (18:54→20:49)
[2022-11-06] MEDS ORDERED: METOPROLOL TARTRATE 5 MG/5 ML INJ IV ONE (18:54)
--- OUTSIDE RECORDS SUMMARY | 2022-11-06 19:00 | XMS REPORT | Continuity of Care Document ---
:1960 Author Organization [facility] t Address [address] [place] [address] Care Team Providers Name Role Phone Rachel Greenberg MD Primary Care Physician Unavailable [id number] Attending Clinician Unavailable DEMI VALADEZ Attending Clinician Unavailable NO NASSAR Attending Clinician Unavailable PORSCHE MOORE Attending Clinician Unavailable Porsche Moore DO Attending Clinician Nelda ESQUIVEL, Fernandez Hyatt Attending Clinician [phone] Jeanne Moy Attending Clinician Unavailable Loree REID, Angelica Attending Clinician Unavailable Makenna ESQUIVEL, Aftab Quiroz Attending Clinician Virginia ESQUIVEL, Nicloe Ramírez Attending Clinician [phone] Cuate ESQUIVEL, Demi Rand Attending Clinician Ekta ESQUIVEL, Ramon Attending Clinician Jenae ESQUIVEL, Wiliam Cintron Attending Clinician [phone] Pauly ESQUIVEL, Alpesh Attending Clinician Berta ESQUIVEL, Hernan Bell Attending Clinician Caleb Reid Attending Clinician Doctor Unassigned, Mott Attending Clinician Unavailable Inder ESQUIVEL, Miesha Charles Attending Clinician [phone] Kaylyn VASQUEZ, Dionne Attending Clinician Sabino Lopez DO Attending Clinician Alvarez Lawson Attending Clinician Unavailable Nawaf Collier MD Attending Clinician Perry ESQUIVEL, Simran Attending Clinician Asael ESQUIVEL, Beulah Nova Attending Clinician Gina Orosco RN Attending Clinician Unavailable Fanta Tijerina Attending Clinician Unavailable Consuelo Brand Attending Clinician Unavailable Joy ESQUIVEL, Cesar Attending Clinician Luis Valencia MD Attending Clinician Maryellen Roach APRN Attending Clinician [phone] Preeti Bejarano RN Attending Clinician Unavailable RADIOLOGY Attending Clinician Unavailable Radiology Attending Clinician Unavailable Hodan ESQUIVEL, Karina Attending Clinician Esther ESQUIVEL, Rickie Tellez Attending Clinician Edith ESQUIVEL, Suki Reeder Attending Clinician [phone] Katie Ramirez Attending Clinician Unavailable Demetrius Jaquez MD Attending Clinician Junie Stearns LVN Attending Clinician Unavailable EDWARD REIS Attending Clinician Unavailable Edward Reis DO Attending Clinician Juan ESQUIVEL, Rainer Weiss Attending Clinician RAKEL FULTON Attending Clinician Unavailable Kirstin ESQUIVEL, Rakel Rose Attending Clinician Rolanda Dimas MA Attending Clinician Unavailable Jaye REID, Nancy Attending Clinician Unavailable Makenna REID, Brooke Attending Clinician Unavailable Vipin REID, Josiah Attending Clinician Unavailable Jeanne EDMOND, Mariola Attending Clinician Unavailable Carlos Yang RN Attending Clinician Unavailable PREETI ANDERSEN Attending Clinician Unavailable Stuart Shaikh MD Attending Clinician Ritchie Garcia MD Attending Clinician Preeti Andersen DO Attending Clinician RITCHIE GARCIA Attending Clinician Unavailable Kaylyn VASQUEZ, Carol Santiago Attending Clinician Xiao Leach MA Attending Clinician Unavailable JOSE CRUZ GARCIA Attending Clinician Unavailable Jose Cruz Garcia MD Attending Clinician SEAN BILLS Attending Clinician Unavailable Sean Bills MD Attending Clinician Sarah Rogers MA Attending Clinician Unavailable Ewa Rivera Attending Clinician Unavailable Elvira Goldman RN Attending Clinician Unavailable Iris Rosa MA Attending Clinician Unavailable Irasema Avila RN Attending Clinician Unavailable Corby Pisano Attending Clinician Maame Andres RN Attending Clinician Unavailable Heron Oakes Attending Clinician Fidelina Plunkett MA Attending Clinician Unavailable Danial Hylton MD Attending Clinician Tu Romero MD Attending Clinician Ruthann Green MA Attending Clinician Unavailable Geoff ESQUIVEL, Angeline Attending Clinician Smitha REID, Tanja Attending Clinician Unavailable Robina De La Vega MA Attending Clinician Unavailable Sally Carty MA Attending Clinician Unavailable David ESQUIVEL, Benjy Thompson Attending Clinician Elba Renteria Attending Clinician Unavailable Franky EMANUEL, Araceli Attending Clinician Unavailable Pamela JHAVERI, Joi Baird Attending Clinician Av REID, Krissy Attending Clinician Unavailable Abena PHOTOLITHOGRAPHIC STRIPPER, Lottie Attending Clinician Abdelrahman PHOTOLITHOGRAPHIC STRIPPER, Dixie Attending Clinician Violeta ESQUIVEL, Shayy Mcintosh Attending Clinician Lissette ESQUIVEL, Damien Tellez Attending Clinician [phone] Provider, Unknown Attending Clinician Unavailable Carolee ESQUIVEL, Jordy Attending Clinician Provider MD, Not In System Attending Clinician Unavailable HARESH CASAREZ Attending Clinician Unavailable Haresh Casarez MD Attending Clinician Yanci Lujan Attending Clinician Unavailable Tamar ESQUIVEL, Jovani Trejo Attending Clinician Colby SIMPSON, Idalia Attending Clinician SABINO LOPEZ Attending Clinician Unavailable [...] Attending Clinician Unavailable Sarah Mckenna Attending Clinician Terrence ESQUIVEL, Yenni Attending Clinician Ernestine ESQUIVEL, Jessie Roque Attending Clinician [phone] Davon Pizarro MD Attending Clinician JOHN HOOPER Attending Clinician Unavailable GC_[email or web address]_R Attending Clinician Unavailable Shayla Mcfarland Attending Clinician [phone] Criss ESQUIVEL, Rupa Attending Clinician RUPA KAHN Attending Clinician Unavailable No Mirza S Attending Clinician Ward Chavez MD Attending Clinician Wayne Harris DO Attending Clinician Hernan Munoz MD Attending Clinician AVRIL RUBIO Attending Clinician Unavailable Franco Mercado MD Attending Clinician Fellow, Pulmonary Attending Clinician Unavailable Lucio ESQUIVEL, Hany Mathur Attending Clinician [phone] Sheron Klein RN Attending Clinician Unavailable HERNAN MUNOZ Attending Clinician Unavailable Mansi Pollard MD Attending Clinician Dar Golden MD Attending Clinician STUART SHAIKH Attending Clinician Unavailable Kalen Segovia MD Attending Clinician [facility] Attending Clinician Unavailable Preeti Lamar MD Attending Clinician PREETI LAMAR Attending Clinician Unavailable DAVON PIZARRO Attending Clinician Unavailable So Fofana Attending Clinician BRIANNE HICKEY Attending Clinician Unavailable [id number] Admitting Clinician Unavailable ILIR LINDSEY Admitting Clinician Unavailable AFTAB MURPHY Admitting Clinician Unavailable DEMI CUELLO Admitting Clinician [...] Number Effective Date Expiration Date Jewels [facility] [id number] 2017 00:00:00 MEDICAID [place] [id number] 2017 00:00:00 HLSM HLSM [id number] MISD MISD [id number] [facility] [id number] 2019 PREFERRED (MEDICARE 00:00:00 REPLACEMENT HMO) [place] [id number] [place]MEDICAID[place] Problems Condition Condition Condition Status Onset Resolution Last Treating Co mments Source Name Details Category Date Date Treatment Clinician Date Lung Lung Disease Active Methodi transplant transplant 3-20 st candidate candidate 00:00: [facility]osp [facility]ha 00 l COPD COPD Disease Active Methodi exacerbati exacerbati 2- st on on 00:00: Hospita 00 l [...] to 1-22 ity of organism organism 00:00: [place] 00 [facility] Branch Atheroscle Atheroscle Disease Active 2021-02 U nivers rosis of rosis of 0-30 ity of lime lime 00:00: [place] coronary coronary 00 Medica l artery of artery of Bran ch lime lime heart heart without without angina angina pectoris pectoris Elevated Elevated Disease Active 2021-02 Unive rs brain brain 0-30 ity of natriureti nat[place] c peptide c peptide 00 Medi kandis (BNP) (BNP) Branch level level Sinus Sinus Disease Active 2021-02 Univers tachycardi tachycardi 0-30 it y of a a 00:00: [place] 00 Medical Branch COPD with COPD with Disease Active 2021-02 Uni vers acute acute 0-29 ity of exacerb[place] COVID-19 COVID-19 Disease Active Unive rs 7-28 ity of 00:00: [place] 00 Medical [facility] Coronary Coronary Disease Active Metho di artery artery 5-13 st disease disease 00:00: Hospita involving involving 00 l lime lime coronary coronary artery of artery of lime lime heart heart without without angina angina pectoris pectoris Pure Pure Disease Active Methodi hyperchole hyperchole 5-13 [address] sterolemia sterolemia 00:00: Ho spita 00 l Coronary Coronary Disease Active Metho di artery artery 5-13 st disease disease 00:00: Hospita involving involving 00 l lime lime coronary coronary artery of artery of lime lime heart heart without without angina angina pectoris [...] y distress 2-08 it y of 00:00: [place] [address] Medical Branch COPD with COPD with Disease Active 2020-02 Uni vers exacerbati exacerbati 2-07 it y of on on 00:00: [place] [address] Medical Branch Abnormal Abnormal Disease Active 2020-02 [...] 2020-02 U nivers 1-12 ity of 00:00: [place] [facility] Atrial Atrial Disease Active 2020-02 Overview: Method i fibrillati fibrillati 0-[address] on on 00:00: g of this Hospita 00 note l might be different from the original. Added automatic ally from request for surgery [id number] COPD with COPD with Disease Active Met [...] Added automatic ally from request for surgery [id number] Chronic Chronic Disease Active Methodi obstructiv obstructiv 8-11 st e e 00:00: Hospita pulmonary pulmonary 00 l disease disease with acute with acute exacerbati exacerbati on on COPD COPD Disease Active Univers exacerbati exacerbati 7-04 it y of on on 00:00: [place] [address] Medical Branch Hemoptysis Hemoptysis Disease Active U nivers 6-11 ity of 00:00: [place] 00 Medical Branch Atypical Atypical Disease Active Unive rs chest pain chest pain 5-09 it y of 00:00: [place] 00 Medical Branch History of History of Disease Active M ethodi pulmonary pulmonary 5-09 st embolism embolism 00:00: Hospit a 00 l Pneumonia Pneumonia Disease Active Uni vers 5-07 ity of 00:00: [place] 00 Medical Branch 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 2019- U nivers protein-ca protein-ca 4-17 it y of tenisha tenisha 00:00: [place] malnutriti malnutriti 00 Me dical on on Branch Cavitary Cavitary Disease Active Unive rs lung lung 4-17 ity of disease disease 00:00: [place] 00 Medical Branch Other Other Disease Active [...] Moderate 2-05 ity of protein protein 00:00: [place] calorie calorie 00 Medical malnutriti malnutriti Br anch on on PAF PAF Disease Active Univers (paroxysma (paroxysma 2-03 it y of l atrial l atrial 00:00: [place] fibrillati fibrillati 00 Me dical on) on) Branch Bradycardi Bradycardi Disease Active M ethodi a a 2- st 00:00: Hospita 00 l Essential Essential Disease Active Met hodi hypertensi hypertensi 2-03 st on on 00:00: Hospita 00 l Septic Septic Disease Active Methodi shock shock 2- st 00:00: Hospita 00 l Right Right [...] - [facility] kandis kandis St examinatio examinatio [facility] n without n without Medi kandis abnormal abnormal Center finding finding Hot Hot Problem Active Common flashes flashes Spirit due to due to - [facility] menopause menopause [facility] Encounter Encounter Problem Active Com mon for for Spirit screening screening - CH I mammogram mammogram for breast for breast [facility] cancer cancer [facility] Allergies, Adverse Reactions, Alerts Allergy Allergy Status Severity Reaction(s) Onset Inactive Treating Comm ents Source Name Type Date Date Clinician Albutero Propensi Active Shortness of 2020-02 Univers l ty to Breath 0-20 ity of adverse 00:00: [place] reaction 00 Medical s Branch ALBUTERO DRUG Active SOB 2020-02 Univers L INGREDI 0-20 ity of 00:00: Medical Branch Albutero Propensi Active Other (See [...] Medical s Branch MORPHINE DRUG Active Other-Cmnt 2017-0 Univ ers INGREDI 10-25 ity of 00:00: [place] 00 Medical Branch MORPHINE Adverse Active Info Not Commo n Reaction Available Spiri t - [facility]I [facility] Morphine Allergy Active Confusion, Mere via to Respiratory Medic al substanc distress e Family History Family Member Diagnosis Comments Start Date Stop Date Source Natural father [facility] Natural mother Cancer [facility] Natural mother [facility] Social History Social Habit Start Date Stop Date Quantity Comments Source History SDOH [facility] St[facility] al History SDOH [facility] Gender identity [facility] Sexual orientation [facility] Alcohol intake 2022-09-21 2022-09-21 Ex-drinker [facility] 00:[facility] 00[facility]00 (finding) Hospital History of Social 2022-09-21 2022-09-[address] function 00:00:00 00:00:00 Hospital Exposure to 2022-03-07 2022-03-17 Not sure University of SARS-CoV-2 (event) 00:00:00 15:05:00 [facility] Cigarettes smoked 2022-03-16 2022-03-[address] current (pack per 00:00:00 00:00:00 Hospita l day) - Reported Cigarette 2022-03-16 2022-03-16 [facility] pack-years 00:00:00 00:00:00 Hospital Tobacco use and 2022-03-16 2022-03-16 Smokeless [facility] exposure 00:00:00 00:00:00 tobacco non-user Hospital Tobacco Comment 2021-11-24 2021-11-24 Uses Universit y of 00:00:00 00:00:00 f-ben-yzezlxo 4 [place] Med ical years ago Branch History SDOH 2020-09-15 2020-09-15 1 [facility] Alcohol Frequency 00:00:00 00:00:00 Hospita l Education 2020-08-09 2020-08-09 12 University of 00:00:00 00:00:00 [facility] Alcohol Comment 2017-11-05 2017-11-05 rare Universit y of 00:00:00 00:00:00 [facility] History of tobacco 2017-07-18 Cigarette Smoker [facility] use 00:00:00 Hospital Sex Assigned At [birth year] Universit y of 00:00:00 00:00:00 [facility] Smoking Status Start Date Stop Date Source Ex-smoker 2022-03-16 00:00:00 2022-03-16 00:00:00 [facility] Medications Ordered Filled Start Stop Current Ordering Indication Dosage Frequency Signature Comments Components Source Medication Medication Date Date Medication? Clinician (SIG) Name Name FENTanyl PF 2022-02 No 25ug 25 mcg, Un jb (SUBLIMAZE 11-06 Slow IV ity o f (PF)) 08:15: 07:36 [place], [place] injection 00 :00 ONCE, 1 Medical 25 mcg dose, On Branch Sun11/06/22 at 0315, Routine magnesium 2022-02 No 2g 2 g, IV Univ ers sulfate in 11-06 Piggyback, it y of water 2 07:15: 07:18 Administer Lj as gram/50 mL 00 :00 over 60 Medica l (4 %) Minutes, Branch infusion 2 ONCE, 1 g dose, On Sun11/06/22 at 0215, Routine famotidine 2022-02 No 20mg 20 mg, Univ ers (PEPCID 11-06 Slow IV ity of (PF)) 07:00: 07:03 Push, [place] injection 00 :00 ONCE, 1 Medical 20 mg dose, On Branch Sun11/06/22 at 0200, EILEEN NaCl 0.9% 2022-02 No 1000mL at 999 Uni vers (NS) bolus 11-06 mL/hr, ity of infusion 06:00: 07:37 1,000 mL, Lj as 1,000 mL 00 :00 IV Medical Infusion, Branch ONCE, 1 dose, On Sun11/06/22 at 0100, EILEEN pantoprazol Yes TAKE 1 Meth jill e 9-[address] (PROTONIX) 00:00: MOUTH 2 Hosp nuha 40 MG EC 00 TIMES l tablet DAILY TAKE 30-60 MINS PRIOR TO MEALS ondansetron 2022- Yes 8mg Q8H Take 1 Meth jill ODT 8-17 tablet (8 st (ZOFRAN-ODT 16:14: mg total) H ospita ) 8 MG 04 by mouth l disintegrat every 8 ing tablet (eight) hours as needed for nausea or vomiting. flecainide Yes 50mg QD Take 1 Metho di (TAMBOCOR) 17 tablet (50 st 50 MG 16:14: mg total) Hospita tablet 04 by mouth l daily. [place]DROcod[place] 2022- [place] [id number] 1{tbl} Q.[id number] Take 1 Methodi -acetaminop 09-[id number] hen (NORCO) 16:14: 00:00 3D mouth 3 Ho spita 5-325 mg 04 :00 (three) l per tablet times a day .acute pain. 11am; 5pm; 11pm. Max Daily Amount: 3 tablets predniSONE 2022- No Take 2 Meth jill (DELTASONE) 09-21 08-[address] 20 mg 00:00: 04:59 (40 mg Hospita tablet 00 :00 total) by l mouth daily for 3 days, THEN 1.5 tablets (30 mg total) daily for 3 days, THEN 1 tablet (20 mg total) daily for 3 days, THEN 0.5 tablets (10 mg total) daily for 3 days. gabapentin 2022- No 400mg Q.5D Take 1 Met hodi (NEURONTIN) 09-20-[address] 400 mg 16:14: 00:00 (400 mg Hospita capsule 29 :00 total) by l mouth 2 (two) times a day. fluticasone Yes 1{puff} Q.5D Inhale 1 Methodi propion-tavia 8-[address] meteroL 16:14: (two) Hospita (ADVAIR/ 27 times a l WIX day. INHUB) 250-50 mcg/dose DISKUS aspirin Yes 81mg QD Take 1 Methodi (ECOTRIN) 8-16 tablet (81 st 81 MG 16:14: mg total) Hospita enteric 27 by mouth l coated daily. tablet metoprolol Yes 25mg QD Take 1 Metho di succinate 8-16 tablet (25 st XL 16:14: mg total) Hospita (TOPROL-XL) 27 by mouth l 25 mg 24 hr daily. tablet multivitami Yes 1{tbl} QD Take 1 Me thodi n tablet 8-[address] 16:14: mouth Hospita 27 daily. l HYDROcodone 2022-0 Yes [id number] 1{tbl} Q4H Take 1 M ethodi -acetaminop 8-[address] hen (NORCO) 00:00: mouth Hospi ta 7.5-325 mg 00 every 4 l per tablet (four) hours as needed for severe pain .acute pain. Max Daily Amount: 6 tablets gabapentin 2022-0 2022- No 600mg Q.5D Take 2 Met hodi (NEURONTIN) 8-16 09-[address] 300 mg 00:00: 04:59 (600 mg Hospita capsule 00 :00 total) by l mouth 2 (two) times a day for 30 days. predniSONE 2022-0 2022- No 10mg QD Take 1 Meth jill (DELTASONE) 08-31-27 tablet (10 s t 10 mg 13:22: 00:00 mg total) Hospit a tablet 04 :00 by mouth l daily. predniSONE 2022-0 Yes 5mg QD Take 1 Metho di (DELTASONE) 5-24 tablet (5 st 5 mg tablet 00:00: mg total) H ospita 00 by mouth l daily. ipratropium 2022-0 2023- No 1{puff} Q.25D Inhale 1 Methodi (ATROVENT 5-24 05-[address] HFA) 17 00:00: 04:59 (four) Hospita mcg/actuati 00 :00 times a l on inhaler day. ipratropium 2022-0 2023- No 1{puff} Q.25D Inhale 1 Methodi (ATROVENT 5-24 05-[address] HFA) 17 00:00: 04:59 (four) Hospita mcg/actuati 00 :00 times a l on inhaler day. predniSONE 2022-0 2022- No 5mg QD Take 1 Meth jill (DELTASONE) 5-24 -27 tablet (5 st 5 mg tablet 00:00: 00:00 mg total) Hospita 00 :00 by mouth l daily. predniSONE 2022-0 Yes 10mg QD Take 1 [...] tablet 13 :00 by mouth l daily. flecainide 2022-0 2023- No 50mg QD Take 1 Meth jill (TAMBOCOR) 5-18 05-18 tablet (50 st 50 MG 14:44: 00:00 mg total) Hospit a tablet 13 :00 by mouth l daily. sucralfate 2022-0 Yes 1g Q.[id number] Take 1 Methodi (CARAFATE) 3-30 [id number] tablet (1 st 1 gram 00:00: 3D g total) Hospita tablet 00 by mouth 3 l (three) times a day. Crush pill and mix 3-5 oz of water to form slurry sucralfate 2022-0 2023- No 1g Q.[id number] Take 1 Methodi (CARAFATE) 3-30 07-27 [id number] tablet (1 st 1 gram 00:00: 00:00 3D g total) Hospit a tablet 00 :00 by mouth 3 l (three) times a day. Crush pill and mix 3-5 oz of water to form slurry levalbutero 2022- No .63mg Q4H Take 3 mL Methodi l (XOPENEX) 04-27-23 (0.[address] 0.63 mg/3 10:44: 00:00 total) by Ho spita mL 41 :00 nebulizati l nebulizer on every 4 solution (four) hours as needed for wheezing. levalbutero 2022- No .63mg Q4H Take 3 mL Methodi l (XOPENEX) 04-27- (0.[address] 0.63 mg/3 10:44: 00:00 total) by Ho spita mL 41 :00 nebulizati l nebulizer on every 4 solution (four) hours as needed for wheezing. levalbutero 2022- No [id number] .63mg Q4H Take 3 mL Methodi l (XOPENEX) 04-27 (0.[address] 0.63 mg/3 00:00: 04:59 [...] or vomiting for up to 30 days. levalbutero 2022- No [id number] .63mg Q4H Take 3 mL Methodi l (XOPENEX) 04-27 (0.[address] 0.63 mg/3 00:00: 04:59 total) by Ho spita mL 00 :00 nebulizati l nebulizer on every 4 solution (four) hours as needed for wheezing for up to 30 days. docusate 2022-0 3- No 100mg Q.5D Take 1 Metho di sodium 04-[address] (COLACE) 00:00: 04:59 (100 mg Hospi ta 100 MG 00 :00 total) by l capsule mouth 2 (two) times a day for 30 days. ondansetron 2022-0 2022- No 4mg Q8H Take 1 Met hodi ODT 04-27 tablet (4 st (ZOFRAN-ODT 00:00: 04:59 mg total) Hospita ) 4 MG 00 :00 by mouth l disintegrat every 8 ing tablet (eight) hours as needed for nausea or vomiting for up to 30 days. amoxicillin 2022-0 3- No 500mg Q.[id number] Take 1 Methodi (AMOXIL) 04-27-30 [id number] capsule s t 500 MG 00:00: 00:00 3D (500 mg Hospita capsule 00 :00 total) by l mouth 3 (three) times a day for 5 days. chlorhexidi 2022-0 3- No 15mL Q.5D Apply 15 M ethodi ne 04-27 03-[address] (PERIDEX) 00:00: 00:00 mouth or Hos panchito 0.12 % 00 :00 throat 2 l solution (two) times a day for 10 days. amoxicillin 2022-0 3- No 500mg Q.30764901 Take 1 Methodi (AMOXIL) 04-27 03-30 [id number] capsule s t 500 MG 00:00: 00:00 3D (500 mg Hospita capsule 00 :00 total) by l mouth 3 (three) times a day for 5 days. chlorhexidi 2022-0 2023- No 15mL Q.5D Apply 15 M ethodi ne 04-27 03-[address] (PERIDEX) 00:00: 00:00 mouth or Hos panchito 0.12 % 00 :00 throat 2 l solution (two) times a day for 10 days. ibuprofen 2022-0 Yes Methodi (ADVIL) 600 3-21 st MG tablet 00:00: Hospita 00 l ibuprofen 3-0 2023- No Methodi (ADVIL) 600 3-21 07-27 st MG tablet 00:00: 00:00 Hospita 00 :00 l acetaminoph 2022-0 2023- No Metho di en-codeine 3- 05-18 st (TYLENOL 00:00: 00:00 Hospita WITH 00 :00 l CODEINE #3) 300-30 mg per tablet acetaminoph 2022-0 2022- No Metho di en-codeine 04-25-18 st (TYLENOL 00:00: 00:00 Hospita WITH 00 :00 l CODEINE #3) 300-30 mg per tablet predniSONE 2022-0 2022- No [id number] 10mg QD Take 1 Methodi (DELTASONE) 20 04-21 tablet (10 s t 10 mg 00:00: 04:59 mg total) Hospit a tablet 00 :00 by mouth l daily for 31 days. predniSONE 2022-0 2022- No [id number] 10mg QD Take 1 Methodi (DELTASONE) 04-24 04-21 tablet (10 s t 10 mg 00:00: 04:59 mg total) Hospit a tablet 00 :00 by mouth l daily for 31 days. Saccharomyc 2022-0 2022- No 250mg 1 capsule Methodi es 04-18-18 ([address] boulardii 00:00: 00:00 total). Hosp nuha (FLORASTOR) 00 :00 l 250 mg capsule fluconazole 2022-0 2022- No Metho di (DIFLUCAN) 04-18-18 st 100 MG 00:00: 00:00 Hospita tablet 00 :00 l Saccharomyc 2022-0 2022- No 250mg 1 capsule Methodi es 04-18-18 ([address] boulardii 00:00: 00:00 total). Hosp nuha (FLORASTOR) 00 :00 l 250 mg capsule fluconazole 2022-0 2022- No Metho di (DIFLUCAN) 04-18-18 st 100 MG 00:00: 00:00 Hospita tablet 00 :00 l azithromyci 2022 [id number] 250mg QD Take 1 Methodi n 2-02 05-[address] (Zithromax) 00:00: 00:00 (250 mg Ho spita 250 MG 00 :00 total) by l tablet mouth daily for 89 days. Please take 1 Tab Sunday azithromyci [id number] 250mg QD Take 1 Methodi n 2-02 05-[address] (Zithromax) 00:00: 00:00 (250 mg Ho spita 250 MG 00 :00 total) by l tablet mouth daily for 89 days. Please take 1 Tab Sunday predniSONE Take 3 Meth jill (DELTASONE) 04-03-[address] 5 mg tablet 00:00: 05:59 (15 mg Hos panchito 00 :00 total) by l mouth daily for 2 days, THEN 2 tablets (10 mg total) daily for 3 days, THEN 1 tablet (5 mg total) daily for 3 days. predniSONE Take 3 Meth jill (DELTASONE) 04-03-[address] 5 mg tablet 00:00: 05:59 (15 mg Hos panchito 00 :00 total) by l mouth daily for 2 days, THEN 2 tablets (10 mg total) daily for 3 days, THEN 1 tablet (5 mg total) daily for 3 days. HYDROcodone 1{tbl} Q.[id number] Take 1 Methodi -acetaminop -02 04- [id number] tablet by st [employer] (FOODit) 12:18: 00:00 3D mouth 3 Ho spita 5-325 mg 39 :00 (three) l per tablet times a day .acute pain. HYDROcodone 1{tbl} Q.[id number] Take 1 Methodi -acetaminop 2-02 04- [id number] tablet by st hen (FOODit) 12:18: 00:00 3D mouth 3 Ho spita 5-325 mg 39 :00 (three) l per tablet times a day .acute pain. HYDROcodone Yes 1{tbl} Q6H Take 1 M ethodi -acetaminop 04-[address] hen (FOODit) 00:00: mouth Hospi ta 10-325 mg 00 every 6 l per tablet (six) hours as needed for severe pain .acute pain. Max Daily Amount: 4 tablets HYDROcodone 2022-2022- [place] [id number] 1{tbl} Q6H Take 1 Methodi -acetaminop - 07-[address] hen (FOODit) 00:00: 00:00 mouth Hosp nuha 10-325 mg 00 :00 every 6 l per tablet (six) hours as needed for severe pain .acute pain. Max Daily Amount: 4 tablets metroNIDAZO 2022-0 2022- No 500mg Q.[id number] Take 1 Methodi LE (FLAGYL) 04-02- [id number] tablet st 500 MG 00:00: 05:59 3D (500 mg Hospita tablet 00 :00 total) by l mouth 3 (three) times a day for 5 days. tetracyclin 2022-0 2022- No 500mg Q.25D Take 1 M ethodi e (SUMYCIN) 04-02-[address] 500 MG 00:00: 05:59 (500 mg Hospita capsule 00 :00 total) by l mouth 4 (four) times a day for 5 days. metroNIDAZO 2022-0 2022- No 500mg Q.[id number] Take 1 Methodi LE (FLAGYL) 04-02 03-[id number] 500 MG 00:00: 05:59 3D (500 mg Hospita tablet 00 :00 total) by l mouth 3 (three) times a day for 5 days. tetracyclin 2022-0 2022- No 500mg Q.25D Take 1 M ethodi e (SUMYCIN) 04-02-[address] 500 MG 00:00: 05:59 (500 mg Hospita capsule 00 :00 total) by l mouth 4 (four) times a day for 5 days. roflumilast 2022-0 2022- No [id number] 250ug QD Take 1 [facility] (Daliresp) 04-02-[address] 250 mcg 00:00: 00:00 (250 mcg Hospi ta tablet 00 :00 total) by l mouth daily for 30 days. roflumilast 2022022- No [id number] 250ug QD Take 1 [facility] (Daliresp) 04-[address] 250 mcg 00:00: 00:00 (250 mcg Hospi ta tablet 00 :00 total) by l mouth daily for 30 days. dexamethaso 2022- No 10mg 10 mg, Uni vers ne sod phos 03-17 Slow IV ity of PF 23:30: 23:57 Push, [place] injection 00 :00 ONCE, 1 Medical 10 mg dose, On Branch Sun03/17/22 at 1730, 1 mL FENTanyl PF 2022- No 75ug 75 mcg, Un jb (SUBLIMAZE 03-17 Slow IV ity o f (PF)) 23:00: 23:06 Push, [place] injection 00 :00 ONCE, 1 Medical 75 mcg dose, On Branch Sun03/17/22 at 1700, Routine cholecalcif 2022- No 1000U QD Take 1 Me thodi usha, 03-[address] vitamin D3, 10:48: 00:00 (1,000 Hos [place]ch[place] 1,000 unit 09 :00 Units l tablet total) by mouth daily. cholecalcif 2022- No 1000U QD Take 1 Me thodi usha, 03-[address] vitamin D3, 10:48: 00:00 (1,000 Hos [place] 1,000 unit 09 :00 Units l tablet total) by mouth daily. pantoprazol Yes 40mg Q.5D Take 1 Meth jill e - tablet (40 st (PROTONIX) 00:00: mg total) Ho [facility]ita 40 MG EC 00 by mouth 2 l tablet (two) times a day. Take 30-60 min prior to meals pantoprazol 2022-0 2022- No 40mg Q.5D Take 1 Met hodi e 03-16- tablet (40 st (PROTONIX) 00:00: 00:00 mg total) H ospita 40 MG EC 00 :00 by mouth 2 l tablet (two) times [...] 03/04/22 at 0500, STAT iopamidol 2022- No [id number] 75mL 75 mL, Univers (ISOVUE 03-04 Intravenou ity o f 370-500 mL) 10:00: 09:05 s, ONCE, 1 [place] injection 00 :00 dose, On Medica l 75 mL Sat Branch 03/04/22 at 0400, Routine FENTanyl PF 2022- No 25ug 25 mcg, Un jb (SUBLIMAZE 03-04 Slow IV ity o f (PF)) 08:00: 07:55 Push, [place] injection 00 :00 ONCE, 1 Medical 25 mcg dose, On Branch 03/04/22 at 0200, STAT methylpredn Yes 125mg 125 mg, Un jb isolone sod 1- Intravenou it y of succ 00:00: s, Q6H, [place] (SOLU-MEDRO 00 First dose Me dical L) on Wed Branch injection 03/01/22 at 125 mg 1800, Until Discontinu ed, Routine HYDROcodone 2022- No 1{tbl} 1 tablet, Univers -acetaminop 03-01 Oral, ity of hen (NORCO) 21:45: 21:00 [place]CE[place] 1 [place] 10-325 mg 00 :00 dose, On Medica l tablet 1 Sun Branch tablet 03/01/22 at 1545, Routine levalbutero No 1.25mg 1.25 mg, Univers l (XOPENEX) 03-01 Inhalation i ty of nebulizer 21:30: 20:40 , [place]CE, 1 [place] solution 00 :00 dose, On Medical 1.25 mg Wed Branch 03/01/22 at 1530, Routine NaCl 0.9% 2022-0 3- No 1000mL at 999 Uni vers (NS) bolus 1-25 01-25 mL/hr, ity of infusion 20:45: 22:01 1,000 mL, L[place] 1,000 mL 00 :00 IV Medical Infusion, Branch ONCE, 1 dose, On Sun03/01/22 at 1445, STAT levoFLOXaci 3-0 Yes [id number] 750mg Take 1 Univers n 750 mg 1-25 tablet by ity of tablet 00:00: mouth [place] 00 every 24 Medical (twenty-fo Branch ur) hours. levoFLOXaci 3-0 Yes [id number] 750mg Take 1 Univers n 750 mg 1-25 tablet by ity of tablet 00:00: mouth [place] 00 every 24 Medical (twenty-fo Branch ur) hours. levoFLOXaci 3-0 Yes [id number] 750mg Take 1 Univers n 750 mg 1-25 tablet by ity of tablet 00:00: mouth [place] 00 every 24 Medical (twenty-fo Branch ur) hours. levoFLOXaci 3-0 Yes [id number] 750mg Take 1 Univers n 750 mg 1-25 tablet by ity of tablet 00:00: mouth [place] 00 every 24 Medical (twenty-fo Branch ur) hours. levoFLOXaci 3-0 Yes [id number] 750mg Take 1 Univers n 750 mg 1-25 tablet by ity of tablet 00:00: mouth [place] 00 every 24 Medical (twenty-fo Branch ur) hours. levoFLOXaci 2023-0 Yes [id number] 750mg Take 1 Univers n 750 mg 1-25 tablet by ity of tablet 00:00: mouth [place] 00 every 24 Medical (twenty-fo Branch ur) hours. levoFLOXaci 3-0 Yes [id number] 750mg Take 1 Univers n 750 mg 1-25 tablet by ity of tablet 00:00: mouth [place] 00 every 24 Medical (twenty-fo Branch ur) hours. levoFLOXaci 2023-0 Yes [id number] 750mg Take 1 Univers n 750 mg 1-25 tablet by ity of tablet 00:00: mouth [place] 00 every 24 Medical (twenty-fo Branch ur) hours. levoFLOXaci 2023-0 Yes [id number] 750mg Take 1 Univers n 750 mg 1-25 tablet by ity of tablet 00:00: mouth [place] 00 every 24 Medical ([facility] ur) hours. levoFLOXaci 2023-0 Yes [id number] 750mg Take 1 Univers n 750 mg 1-25 tablet by ity of tablet 00:00: mouth [place] 00 every 24 Medical ([facility] ur) hours. levoFLOXaci 2023-0 Yes [id number] 750mg Take 1 Univers n 750 mg 1-25 tablet by ity of tablet 00:00: mouth [place] 00 every 24 Medical ([facility] ur) hours. levoFLOXaci 2023-0 Yes [id number] 750mg Take 1 Univers n 750 mg 1-25 tablet by ity of tablet 00:00: mouth [place] 00 every 24 Medical ([facility] ur) hours. levoFLOXaci 2022-0 2023- No Metho di n -03-16 st (LEVAQUIN) 00:00: 00:00 Hospit a 750 MG 00 :00 l tablet levoFLOXaci 2022-2022- No Metho di n 03-01 st (LEVAQUIN) 00:00: 00:00 Hospit a 750 MG 00 :00 l tablet Alcohol 2021-02- No BANDAGES Metho di Prep Pads 2- st pads, 00:00: 00:00 Hospita medicated 00 :00 l Alcohol 2021-02- No BANDAGES Metho di Prep Pads 2- st pads, 00:00: 00:00 Hospita medicated 00 :00 l tiotropium 2021-02- No [id number] 1{capsu QD Place 1 [facility] (Spiriva 205-04 le} puff ( st with 00:00: 00:00 capsule [facility]osp[facility] HandiHaler) 00 :00 total) l 18 mcg per into inhalation inhaler capsule and inhale once daily. tiotropium 2021-02- No [id number] 1{capsu QD Place 1 [facility] (Spiriva 230 le} puff ( st with 00:00: 00:00 capsule [facility] HandiHaler) 00 :00 total) l 18 mcg per into inhalation inhaler capsule and inhale once daily. tiotropium 2021-02- No [id number] 1{capsu QD Place 1 [facility] (Spiriva 03-26 le} puff (1 st with 00:00: 00:00 capsule [facility] HandiHaler) 00 :00 total) l 18 mcg per into inhalation inhaler capsule and inhale once daily. tiotropium 2021-02- No [id number] 1{capsu QD Place 1 [facility] (Spiriva 03-26 le} puff (1 st with 00:00: 00:00 capsule [facility] HandiHaler) 00 :00 total) l 18 mcg per into inhalation inhaler capsule and inhale once daily. pen needle, 2021-02- No [id number] Use 1 [facility] diabetic 03-13- needle st (BD 00:00: 00:00 daily [facility] Ultra-Fine 00 :00 l Elsie Pen Needle) 32 gauge x 5/32" needle teriparatid 2021-02- No [id number] 20ug QD Inject Methodi e (Forteo) 03-13- 0.[address] 20 mcg/dose 00:00: 00:00 (20 mcg Ho spita (600mcg/2.4 00 :00 total) l mL) under the injection skin daily. pen needle, 2021-02- No [id number] Use 1 [facility] diabetic 03-13- needle st (BD 00:00: 00:00 daily [facility] Ultra[facility]Fine 00 :00 l Elsie Pen Needle) 32 gauge x 5/32" needle teriparatid 2021-02- No [id number] 20ug QD Inject Methodi e (Forteo) 03-[address] 20 mcg/dose 00:00: 00:00 (20 mcg Ho spita (600mcg/2.4 00 :00 total) l mL) under the injection skin daily. fluticasone 2021-02 Yes 1{puff} Inhale 1 Univers propion-tavia 1-25 Puff every it y of meteroL 11:52: 12 [place] 250-50 32 (twelve) Medical mcg/dose hours. Branch inhalation disk flecainide 2021-02 Yes 50mg Take 50 mg U nivers acetate 1-25 by mouth ity of (FLECAINIDE 11:52: every [place] ORAL) 32 morning. Medical Branch metoprolol 2021-02 Yes 25mg Take 25 mg U nivers tartrate 25 1-25 by mouth ity of mg tablet 11:52: in the [place] [address] morning. Medical Branch gabapentin 2021-02 Yes 400mg Take 400 Un jb 400 mg 1-25 mg by ity of capsule 11:52: mouth 3 [place] [address] (three) Medical times Branch daily. pantoprazol 2021-02 Yes 40mg Take 40 mg Univers e 40 mg EC 1-25 by mouth ity o f tablet 11:52: daily. [place] [address] Medical Branch aspirin 81 2021-02 Yes 81mg Take 81 mg U nivers mg chewable 1-25 by mouth ity of tablet 11:52: daily. [place] [address] Medical Branch HYDROcodone 2021-02 Yes 1{tbl} Take 1 Un jb -acetaminop 1-25 tablet by ity of hen 5-325 11:52: mouth in [facility] s mg tablet 32 the Medical morning Branch and 1 tablet at noon and 1 tablet in the evening. fluticasone 2021-02 Yes 1{puff} Inhale 1 Univers propion-tavia 1-25 Puff every it y of meteroL 11:52: 12 [place] [address] (twelve) Medical mcg/dose hours. Branch inhalation disk flecainide 2021-02 Yes 50mg Take 50 mg U nivers acetate 1-25 by mouth ity of (FLECAINIDE 11:52: every [place] ORAL) morning. Medical Branch metoprolol 2021-02 Yes 25mg Take 25 mg U nivers tartrate 25 1-25 by mouth ity of mg tablet 11:52: in the [place] [address] morning. Medical Branch gabapentin 2021-02 Yes 400mg Take 400 Un jb 400 mg 1-25 mg by ity of capsule 11:52: mouth 3 [place] [address] (three) Medical times Branch daily. pantoprazol 2021-02 Yes 40mg Take 40 mg Univers e 40 mg EC 1-25 by mouth ity o f tablet 11:52: daily. [address] Branch aspirin 81 2021-02 Yes 81mg Take 81 mg U nivers mg chewable 1-25 by mouth ity of tablet 11:52: daily. [address] HYDROcodone 2021-02 Yes 1{tbl} Take 1 Un jb -acetaminop 1-25 tablet by ity of hen 5-325 11:52: [place] tablet 32 the Medical morning Branch and 1 tablet at noon and 1 tablet in the evening. fluticasone 2021-02 Yes 1{puff} Inhale 1 Univers propion-tavia 1-25 Puff every it y of meteroL 11:52: 12 [place] 250-50 32 (twelve) Medical mcg/dose hours. Branch inhalation disk flecainide 2021-02 Yes 50mg Take 50 mg U nivers acetate 1-25 by mouth ity of (FLECAINIDE 11:52: every [place] ORAL) 32 morning. Medical Branch metoprolol 2021-02 Yes 25mg Take 25 mg U nivers tartrate 25 1-25 by mouth ity of mg tablet 11:52: in the [place] [address] morning. Medical Branch gabapentin 2021-02 Yes 400mg Take 400 Un jb 400 mg 1-25 mg by ity of capsule 11:52: mouth 3 [place] [address] (three) Medical times Branch daily. pantoprazol 2021-02 Yes 40mg Take 40 mg Univers e 40 mg EC 1-25 by mouth ity o f tablet 11:52: daily. [place] [address] Medical Branch aspirin 81 2021-02 Yes 81mg Take 81 mg U nivers mg chewable 1-25 by mouth ity of tablet 11:52: daily. [place] [address] Medical Branch HYDROcodone 2021-02 Yes 1{tbl} Take 1 Un jb -acetaminop 1-25 tablet by ity of hen 5-325 11:52: [place] mg tablet 32 the Medical morning Branch and 1 tablet at noon and 1 tablet in the evening. fluticasone 2021-02 Yes 1{puff} Inhale 1 Univers propion-tavia 1-25 Puff every it y of meteroL 11:52: 12 [place] 250-50 (twelve) Medical mcg/dose hours. Branch inhalation disk flecainide 2021-02 Yes 50mg Take 50 mg U nivers acetate 1-25 by mouth ity of (FLECAINIDE 11:52: every [place] ORAL) 32 morning. Medical Branch metoprolol 2021-02 Yes 25mg Take 25 mg U nivers tartrate 25 1-25 by mouth ity of mg tablet 11:52: in the [place] [address] morning. Medical Branch gabapentin 2022-1 Yes 400mg Take 400 Un jb 400 mg 1-25 mg by ity of capsule 11:52: mouth 3 [place] [address] (three) Medical times Branch daily. pantoprazol 2021-02 Yes 40mg Take 40 mg Univers e 40 mg EC 1-25 by mouth ity o f tablet 11:52: daily. [address] aspirin 81 2021-02 Yes 81mg Take 81 mg U nivers mg chewable 1-25 by mouth ity of tablet 11:52: daily. [address] Branch HYDROcodone 2021-02 Yes 1{tbl} Take 1 Un jb -acetaminop 1-25 tablet by ity of hen 5-325 11:52: [place] mg tablet 32 the Medical morning Branch and 1 tablet at noon and 1 tablet in the evening. fluticasone 2021-02 Yes 1{puff} Inhale 1 Univers propion-tavia 1-25 Puff every it y of meteroL 11:52: 12 [place] [address] (twelve) Medical mcg/dose hours. Branch inhalation disk flecainide 2021-02 Yes 50mg Take 50 mg U nivers acetate 1-25 by mouth ity of (FLECAINIDE 11:52: every [place] ORAL) morning. Medical Branch metoprolol 2021-02 Yes 25mg Take 25 mg U nivers tartrate 25 1-25 by mouth ity of mg tablet 11:52: in the [place] [address] morning. Medical Branch gabapentin 2021-02 Yes 400mg Take 400 Un jb 400 mg 1-25 mg by ity of capsule 11:52: mouth 3 [place] [address] (three) Medical times Branch daily. pantoprazol 2021-02 Yes 40mg Take 40 mg Univers e 40 mg EC 1-25 by mouth ity o f tablet 11:52: daily. [address] aspirin 81 2021-02 Yes 81mg Take 81 mg U nivers mg chewable 1-25 by mouth ity of tablet 11:52: daily. [address] HYDROcodone 2021-02 Yes 1{tbl} Take 1 Un jb -acetaminop 1-25 tablet by ity of hen 5-325 11:52: [place] mg tablet 32 the Medical morning Branch and 1 tablet at noon and 1 tablet in the evening. fluticasone 2021-02 Yes 1{puff} Inhale 1 Univers propion-tavia 1-25 Puff every it y of meteroL 11:52: 12 [place] 250-50 (twelve) Medical mcg/dose hours. Branch inhalation disk flecainide 2021-02 Yes 50mg Take 50 mg U nivers acetate 1-25 by mouth ity of (FLECAINIDE 11:52: every [place] ORAL) 32 morning. Medical Branch metoprolol 2021-02 Yes 25mg Take 25 mg U nivers tartrate 25 1-25 by mouth ity of mg tablet 11:52: in the [place] [address] morning. Medical Branch gabapentin 2021-02 Yes 400mg Take 400 Un jb 400 mg 1-25 mg by ity of capsule 11:52: mouth 3 [place] [address] (three) Medical times Branch daily. pantoprazol 2021-02 Yes 40mg Take 40 mg Univers e 40 mg EC 1-25 by mouth ity o f tablet 11:52: daily. [place] [address] Medical Branch aspirin 81 2021-02 Yes 81mg Take 81 mg U nivers mg chewable 1-25 by mouth ity of tablet 11:52: daily. [place] [address] Medical Branch HYDROcodone 2021-02 Yes 1{tbl} Take 1 Un jb -acetaminop 1-25 tablet by ity of hen 5-325 11:52: mouth in [facility] s mg tablet 32 the Medical morning Branch and 1 tablet at noon and 1 tablet in the evening. fluticasone 2021-02 Yes 1{puff} Inhale 1 Univers propion-tavia 1-25 Puff every it y of meteroL 11:52: 12 [place] [address] (twelve) Medical mcg/dose hours. Branch inhalation disk flecainide 2021-02 Yes 50mg Take 50 mg U nivers acetate 1-25 by mouth ity of (FLECAINIDE 11:52: every [place] ORAL) 32 morning. Medical Branch metoprolol 2021-02 Yes 25mg Take 25 mg U nivers tartrate 25 1-25 by mouth ity of mg tablet 11:52: in the [place] [address] morning. Medical Branch gabapentin 2021-02 Yes 400mg Take 400 Un jb 400 mg 1-25 mg by ity of capsule 11:52: mouth 3 [place] [address] (three) Medical times Branch daily. pantoprazol 2021-02 Yes 40mg Take 40 mg Univers e 40 mg EC 1-25 by mouth ity o f tablet 11:52: daily. [address] Branch aspirin 81 2021-02 Yes 81mg Take 81 mg U nivers mg chewable 1-25 by mouth ity of tablet 11:52: daily. [address] Branch HYDROcodone 2021-02 Yes 1{tbl} Take 1 Un jb -acetaminop 1-25 tablet by ity of hen 5-325 11:52: mouth [place] mg tablet 32 the Medical morning Branch and 1 tablet at noon and 1 tablet in the evening. fluticasone 2021-02 Yes 1{puff} Inhale 1 Univers propion-tavia 1-25 Puff every it y of meteroL 11:52: 12 [place] [address] (twelve) Medical mcg/dose hours. Branch inhalation disk flecainide 2021-02 Yes 50mg Take 50 mg U nivers acetate 1-25 by mouth ity of (FLECAINIDE 11:52: every [place] ORAL) morning. Medical Branch metoprolol 2021-02 Yes 25mg Take 25 mg U nivers tartrate 25 1-25 by mouth ity of mg tablet 11:52: in the [place] [address] morning. Medical Branch gabapentin 2021-02 Yes 400mg Take 400 Un jb 400 mg 1-25 mg by ity of capsule 11:52: mouth 3 [place] [address] (three) Medical times Branch daily. pantoprazol 2021-02 Yes 40mg Take 40 mg Univers e 40 mg EC 1-25 by mouth ity o f tablet 11:52: daily. [address] Branch aspirin 81 2021-02 Yes 81mg Take 81 mg U nivers mg chewable 1-25 by mouth ity of tablet 11:52: daily. [place] [address] Medical Branch HYDROcodone 2021-02 Yes 1{tbl} Take 1 Un jb -acetaminop 1-25 tablet by ity of hen 5-325 11:52: mouth [place] mg tablet 32 the Medical morning Branch and 1 tablet at noon and 1 tablet in the evening. fluticasone 2021-02 Yes 1{puff} Inhale 1 Univers propion-tavia 1-25 Puff every it y of meteroL 11:52: 12 [place] [address] (twelve) Medical mcg/dose hours. Branch inhalation disk flecainide 2021-02 Yes 50mg Take 50 mg U nivers acetate 1-25 by mouth ity of (FLECAINIDE 11:52: every [place] ORAL) 32 morning. Medical Branch metoprolol 2021-02 Yes 25mg Take 25 mg U nivers tartrate 25 1-25 by mouth ity of mg tablet 11:52: in the [place] [address] morning. Medical Branch gabapentin 2021-02 Yes 400mg Take 400 Un jb 400 mg 1-25 mg by ity of capsule 11:52: mouth 3 [place] [address] (three) Medical times [place] daily. pantoprazol 2021-02 Yes 40mg Take 40 mg Univers e 40 mg EC 1-25 by mouth ity o f tablet 11:52: daily. [address] Branch aspirin 81 2021-02 Yes 81mg Take 81 mg U nivers mg chewable 1-25 by mouth ity of tablet 11:52: daily. [place] [address] Medical Branch HYDROcodone 2021-02 Yes 1{tbl} Take 1 Un jb -acetaminop 1-25 tablet by ity of hen 5-325 11:52: mouth in [facility] s mg tablet 32 the Medical morning Branch and 1 tablet at noon and 1 tablet in the evening. fluticasone 2021-02 Yes 1{puff} Inhale 1 Univers propion-tavia 1-25 Puff every it y of meteroL 11:52: 12 [place] [address] (twelve) Medical mcg/dose hours. Branch inhalation disk flecainide 2021-02 Yes 50mg Take 50 mg U nivers acetate 1-25 by mouth ity of (FLECAINIDE 11:52: every [place] ORAL) morning. Medical Branch metoprolol 2021-02 Yes 25mg Take 25 mg U nivers tartrate 25 1-25 by mouth ity of mg tablet 11:52: in the [place] [address] morning. Medical Branch gabapentin 2021-02 Yes 400mg Take 400 Un jb 400 mg 1-25 mg by ity of capsule 11:52: mouth 3 [place] [address] (three) Medical times [place] daily. pantoprazol 2021-02 Yes 40mg Take 40 mg Univers e 40 mg EC 1-25 by mouth ity o f tablet 11:52: daily. [address] Branch aspirin 81 2021-02 Yes 81mg Take 81 mg U nivers mg chewable 1-25 by mouth ity of tablet 11:52: daily. [place] [address] Medical Branch HYDROcodone 2021-02 Yes 1{tbl} Take 1 Un jb -acetaminop 1-25 tablet by ity of hen 5-325 11:52: mouth [place] mg tablet 32 the Medical morning Branch and 1 tablet at noon and 1 tablet in the evening. fluticasone 2021-02 Yes 1{puff} Inhale 1 Univers propion-tavia 1-25 Puff every it y of meteroL 11:52: 12 [place] [address] (twelve) Medical mcg/dose hours. Branch inhalation disk flecainide 2021-02 Yes 50mg Take 50 mg U nivers acetate 1-25 by mouth ity of (FLECAINIDE 11:52: every [place] ORAL) morning. Medical Branch metoprolol 2021-02 Yes 25mg Take 25 mg U nivers tartrate 25 1-25 by mouth ity of mg tablet 11:52: in the [place] [address] morning. Medical Branch gabapentin 2021-02 Yes 400mg Take 400 Un jb 400 mg 1-25 mg by ity of capsule 11:52: mouth 3 [place] [address] (three) Medical times Branch daily. pantoprazol 2021-02 Yes 40mg Take 40 mg Univers e 40 mg EC 1-25 by mouth ity o f tablet 11:52: daily. [address] Branch aspirin 81 2021-02 Yes 81mg Take 81 mg U nivers mg chewable 1-25 by mouth ity of tablet 11:52: daily. [address] Branch HYDROcodone 2021-02 Yes 1{tbl} Take 1 Un jb -acetaminop 1-25 tablet by ity of hen 5-325 11:52: mouth [place] mg tablet 32 the Medical morning Branch and 1 tablet at noon and 1 tablet in the evening. fluticasone 2021-02 Yes 1{puff} Inhale 1 Univers propion-tavia 1-25 Puff every it y of meteroL 11:52: 12 [place] [address] (twelve) Medical mcg/dose hours. Branch inhalation disk flecainide 2021-02 Yes 50mg Take 50 mg U nivers acetate 1-25 by mouth ity of (FLECAINIDE 11:52: every [place] ORAL) morning. Medical Branch metoprolol 2021-02 Yes 25mg Take 25 mg U nivers tartrate 25 1-25 by mouth ity of mg tablet 11:52: in the [place] [address] morning. Medical Branch gabapentin 2021-02 Yes 400mg Take 400 Un jb 400 mg 1-25 mg by ity of capsule 11:52: mouth 3 [place] [address] (three) Medical times Branch daily. pantoprazol 2021-02 Yes 40mg Take 40 mg Univers e 40 mg EC 1-25 by mouth ity o f tablet 11:52: daily. [place] [address] Medical Branch aspirin 81 2021-02 Yes 81mg Take 81 mg U nivers mg chewable 1-25 by mouth ity of tablet 11:52: daily. [place] [address] Medical Branch HYDROcodone 2021-02 Yes 1{tbl} Take 1 Un jb -acetaminop 1-25 tablet by ity of hen 5-325 11:52: mouth [place] mg tablet the Medical morning Branch and 1 tablet at noon and 1 tablet in the evening. fluticasone 2021-02 Yes 1{puff} Inhale 1 Univers propion-tavia 1-25 Puff every it y of meteroL 11:52: 12 [place] [address] (twelve) Medical mcg/dose hours. Branch inhalation disk flecainide 2021-02 Yes 50mg Take 50 mg U nivers acetate 1-25 by mouth ity of (FLECAINIDE 11:52: every [place] ORAL) morning. Medical Branch metoprolol 2021-02 Yes 25mg Take 25 mg U nivers tartrate 25 1-25 by mouth ity of mg tablet 11:52: in the [place] [address] morning. Medical Branch gabapentin 2021-02 Yes 400mg Take 400 Un jb 400 mg 1-25 mg by ity of capsule 11:52: mouth 3 [place] [address] (three) Medical times Branch daily. pantoprazol 2021-02 Yes 40mg Take 40 mg Univers e 40 mg EC 1-25 by mouth ity o f tablet 11:52: daily. [address] Branch aspirin 81 2021-02 Yes 81mg Take 81 mg U nivers mg chewable 1-25 by mouth ity of tablet 11:52: daily. [address] Branch HYDROcodone 2021-02 Yes 1{tbl} Take 1 Un jb -acetaminop 1-25 tablet by ity of hen 5-325 11:52: mouth [place] mg tablet 32 the Medical morning Branch and 1 tablet at noon and 1 tablet in the evening. fluticasone 2021-02 Yes 1{puff} Inhale 1 Univers propion-tavia 1-25 Puff every it y of meteroL 11:52: 12 [place] 250-50 (twelve) Medical mcg/dose hours. Branch inhalation disk flecainide 2021-02 Yes 50mg Take 50 mg U nivers acetate 1-25 by mouth ity of (FLECAINIDE 11:52: every [place] ORAL) 32 morning. Medical Branch metoprolol 2021-02 Yes 25mg Take 25 mg U nivers tartrate 25 1-25 by mouth ity of mg tablet 11:52: in the [place] [address] morning. Medical Branch gabapentin 2021-02 Yes 400mg Take 400 Un jb 400 mg 1-25 mg by ity of capsule 11:52: mouth 3 [place] [address] (three) Medical times Branch daily. pantoprazol 2021-02 Yes 40mg Take 40 mg Univers e 40 mg EC 1-25 by mouth ity o f tablet 11:52: daily. [place] [address] Medical Branch aspirin 81 2021-02 Yes 81mg Take 81 mg U nivers mg chewable 1-25 by mouth ity of tablet 11:52: daily. [place] [address] Medical Branch HYDROcodone 2021-02 Yes 1{tbl} Take 1 Un jb -acetaminop 1-25 tablet by ity of hen 5-325 11:52: mouth [place] mg tablet 32 the Medical morning Branch and 1 tablet at noon and 1 tablet in the evening. fluticasone 2021-02 Yes 1{puff} Inhale 1 Univers propion-tavia 1-25 Puff every it y of meteroL 11:52: 12 [place] 250-[facility] (twelve) Medical mcg/dose hours. Branch inhalation disk flecainide 2021-02 Yes 50mg Take 50 mg U nivers acetate 1-25 by mouth ity of (FLECAINIDE 11:52: every [place] ORAL) 32 morning. Medical Branch metoprolol 2021-02 Yes 25mg Take 25 mg U nivers tartrate 25 1-25 by mouth ity of mg tablet 11:52: in the [place] [address] morning. Medical Branch gabapentin 2021-02 Yes 400mg Take 400 Un jb 400 mg 1-25 mg by ity of capsule 11:52: mouth 3 [place] [address] (three) Medical times Branch daily. pantoprazol 2021-02 Yes 40mg Take 40 mg Univers e 40 mg EC 1-25 by mouth ity o f tablet 11:52: daily. [place] [address] Medical Branch aspirin 81 2021-02 Yes 81mg Take 81 mg U nivers mg chewable 1-25 by mouth ity of tablet 11:52: daily. [place] [address] Medical Branch HYDROcodone 2021-02 Yes 1{tbl} Take 1 Un jb -acetaminop 1-25 tablet by ity of hen 5-325 11:52: mouth in [facility] s mg tablet 32 the Medical morning Branch and 1 tablet at noon and 1 tablet in the evening. fluticasone 2021-02 Yes 1{puff} Inhale 1 Univers propion-tavia 1-25 Puff every it y of meteroL 11:52: 12 [place] [address] (twelve) Medical mcg/dose hours. Branch inhalation disk flecainide 2021-02 Yes 50mg Take 50 mg U nivers acetate 1-25 by mouth ity of (FLECAINIDE 11:52: every [place] ORAL) morning. Medical Branch fluticasone 2021-02 Yes 1{puff} Inhale 1 [facility] propion-tavia 1-25 Puff every it y of meteroL 11:52: 12 [place] [address] (twelve) Medical mcg/dose hours. Branch inhalation disk flecainide 2021-02 Yes 50mg Take 50 mg U nivers acetate 1-25 by mouth ity of (FLECAINIDE 11:52: every [place] ORAL) morning. Medical Branch metoprolol 2021-02 Yes 25mg Take 25 mg U nivers tartrate 25 1-25 by mouth ity of mg tablet 11:52: in the [place] [address] morning. Medical Branch gabapentin 2021-02 Yes 400mg Take 400 Un jb 400 mg 1-25 mg by ity of capsule 11:52: mouth 3 [place] [address] (three) Medical times Branch daily. pantoprazol 2021-02 Yes 40mg Take 40 mg Univers e 40 mg EC 1-25 by mouth ity o f tablet 11:52: daily. [place] [address] Medical Branch aspirin 81 2021-02 Yes 81mg Take 81 mg U nivers mg chewable 1-25 by mouth ity of tablet 11:52: daily. [address] HYDROcodone 2021-02 Yes 1{tbl} Take 1 Un jb -acetaminop 1-25 tablet by ity of hen 5-325 11:52: [place] mg tablet 32 the [facility] Branch and 1 tablet at noon and 1 tablet in the evening. hydrocortis 2021-02- No [id number] 25mg Insert 1 Univers one 25 mg 1-25 02-24 Suppositor ity of suppository 00:00: 05:59 y into [place] 00 :00 rectum in [facility] morning and 1 Suppositor y in the evening. Do all this for 90 days. hydrocortis 2021-02- No [id number] 25mg Insert 1 Univers one 25 mg 1-25 02-24 Suppositor ity of suppository 00:00: 05:59 y into [place] 00 :00 rectum in [facility] morning and 1 Suppositor y in the evening. Do all this for 90 days. hydrocortis 2021-02- No [id number] 25mg Insert 1 Univers one 25 mg 1-25 02-24 Suppositor ity of suppository 00:00: 05:59 y into [place] 00 :00 rectum in [facility] morning and 1 Suppositor y in the evening. Do all this for 90 days. hydrocortis 2021-02- No [id number] 25mg Insert 1 Univers one 25 mg 1-25 02-24 Suppositor ity of suppository 00:00: 05:59 y into [place] 00 :00 rectum in [facility] morning and 1 Suppositor y in the evening. Do all this for 90 days. hydrocortis 2021-02- No [id number] 25mg Insert 1 Univers one 25 mg 1-25 02-24 Suppositor ity of suppository 00:00: 05:59 y into [place] 00 :00 rectum in [facility] morning and 1 Suppositor y in the evening. Do all this for 90 days. hydrocortis 2021-02- No [id number] 25mg Insert 1 [facility] one 25 mg 1-25 02-24 Suppositor ity of suppository 00:00: 05:59 y into [place] 00 :00 rectum in Medical the Branch morning and 1 Suppositor y in the evening. Do all this for 90 days. predniSONE 2021-02- No [id number] Take 2 Univers 20 mg -25 -09 tablets by ity of tablet 00:00: 05:59 mouth [place] 00 :00 daily for Medical 2 days, Branch THEN 1.5 tablets daily for 4 days, THEN 1 tablet daily for 4 days, THEN 0.5 tablets daily for 3 days. predniSONE 2021-02- No [id number] Take 2 Univers 20 mg -25 12-09 tablets by ity of tablet 00:00: 05:59 mouth [place] 00 :00 daily for Medical 2 days, Branch THEN 1.5 tablets daily for 4 days, THEN 1 tablet daily for 4 days, THEN 0.5 tablets daily for 3 days. oseltamivir 2021-02- No [id number] 75mg Take 1 Univers 75 mg 03-01 capsule by ity of capsule 00:00: 05:59 mouth in [place] 00 :00 the Medical morning Branch and 1 capsule in the evening. Do all this for 2 days. HYDROmorphO 2021-02- No .5mg 0.5 mg, Un jb [...] Rectal, ity of (ANUSOL-HC) 17:45: BID, First [place] suppository 00 dose on Medic al 25 mg [facility] Branch 12/29/21 at 1145, Until Discontinu ed, Routine levalbutero 2021-02 Yes .31mg 0.31 mg, U nivers l (XOPENEX) 02-28 Inhalation it y of nebulizer 02:00: , TID, [place] solution 00 First dose Medic al 0.31 mg on Sun Branch 12/28/21 at 2000, Until Discontinu ed, Routine phenoL 2021-02 Yes 1{spray 1 [place], Univ ers (SORE 02-27 } Oral, PRN, ity of THROAT 23:39: Starting [place] (PHENOL)) 09 on Sun Medical 1.4 % spray 12/28/21 Bran ch bottle 1 at 1739, [place] Until Discontinu ed, Routine, Sore throat enoxaparin [...] on Sun12/28/21 at 0900, Last dose on Sun01/01/22 at 0900, Routine fluticasone 2021-02 Yes 1{puff} 1 Puff, Univers propion-tavia 02-27 Inhalation it y of meteroL 07:45: , Q12H, [place] (ADVAIR) 00 First dose Medic al 250-50 on Sun mcg/dose 12/28/21 inhalation at 0145, disk 1 Puff Until Discontinu ed, Routine ipratropium 2021-02 Yes .5mg 0.5 mg, Uni vers (ATROVENT) 02-27 Inhalation ity of 0.02 % 06:00: , Q6H, [place] nebulizer 00 First dose Medi kandis solution on Sun 0.5 mg 12/28/21 at 0000, Until Discontinu ed, Routine docusate 2021-02 Yes 100mg 100 mg, Unive rs (COLACE) 02-27 Oral, BID, ity o f capsule 100 02:00: First dose [place] mg 00 on [facility] 12/27/21 Branch at 2000, Until Discontinu ed, Routine oseltamivir 2021-02 No 75mg 75 mg, Uni vers (TAMIFLU) 02-27 Oral, BID, ity of capsule 75 02:00: 01:59 10 doses, [place] mg 00 :00 First dose Medical on Sun12/27/21 at 2000, Last dose on Sun01/01/22 at 0800, Routine methylPREDN 2021-02 No 40mg 40 mg, Uni vers ISolone sod 02-27 Intravenou i ty of succ 01:45: 02:05 s, ONCE, 1 [place] (SOLU-MEDRO 00 :00 dose, On Medi kandis L (PF)) Sun [place] injection 12/27/21 40 mg at 1945, 1 mL guaiFENesin 2021-02 Yes 200mg 200 mg, Un jb 100 mg/5 mL 02-27 Oral, ity of solution 00:50: Q6HPRN, [place] 200 mg 38 Starting Medical on 12/27/21 at 1850, Until Discontinu ed, Routine, Cough bisacodyL 2021-02 Yes 10mg 10 mg, Univer s (DULCOLAX) 02-27 Rectal, ity of suppository 00:49: QDAILYPRN, [place] 10 mg 21 Starting Medical on Branch 12/27/21 at 1849, Until Discontinu ed, Routine, Constipati on unresolved by oral medication s ondansetron 2021-02 Yes 4mg 4 mg, Slow Univers (ZOFRAN 02-27 IV Push, ity of (PF)) 00:49: Q6HPRN, [place] injection 4 09 Starting Medi kandis mg on Branch 12/27/21 at 1849, Until Discontinu ed, Routine, Nausea and Vomiting (N/V) HYDROmorpho 2021-02- No .5mg 0.5 mg, Un jb ne 02-27 Slow IV ity of (DILAUDID) 00:48: 23:30 Push, [place] injection 25 :05 Q4HPRN, Medical 0.5 mg Starting Branch on Sun12/27/21 at 1848, Until Leah 12/29/21 at 1730, Routine, Pain (scale 7-10)
U se approved by (Faculty): [employer] HYDROcodone 2021-02- No 1{tbl} 1 tablet, Univers -acetaminop 02-27 Oral, ity of hen (NORCO 00:47: 23:29 Q6HPRN, [place] 5) 5-325 mg 58 :43 Starting Medi kandis tablet 1 on [facility] tablet 12/27/21 at 1847, Until Leah 12/29/21 at 1729, Routine, Pain (scale 4-6) acetaminoph 2021-02 Yes 650mg 650 mg, Un jb en 02-27 Oral, ity of (TYLENOL) 00:47: Q6HPRN, [place] tablet 650 40 Starting Medic al mg on Branch 12/27/21 at 1847, Until Discontinu ed, Routine, Pain (scale 1-3), Temp > 38.5 C FENTanyl PF 2021-02- No 25ug 25 mcg, Un bj (SUBLIMAZE 02-26 Slow IV ity o f (PF)) 23:30: 22:33 Push, [place] injection 00 :00 ONCE, 1 Medical 25 mcg dose, On Branch Sun12/27/21 at 1730, STAT metoclopram 2021-02 No 10mg 10 mg, Uni vers lawson HCl 02-26 Slow IV ity of (REGLAN) 22:45: 22:44 Push, [place] injection 00 :00 ONCE, 1 Medical 10 mg dose, On Branch Sun12/27/21 at 1645, EILEEN oseltamivir 2021-02 No 75mg 75 mg, Uni vers (TAMIFLU) 02-26 Oral, ity of capsule 75 22:45: 21:49 ONCE, 1 [place] mg 00 :00 dose, On Medical e Branch 12/27/21 at 1645, EILEEN azithromyci 2021-02 No 500mg 500 mg, IV Univers n 02-26 Piggyback, ity of (ZITHROMAX) 22:30: 22:53 ONCE, 1 [place] 500 mg in 00 :23 dose, On Medica l NaCl 0.9% [facility] Branch (NS) 250 mL 12/27/21 VIAL-MATE at [...] dose, On Sun12/27/21 at 1500, STAT acetaminoph 2021-02- No 975mg 975 mg, U nivers en 02-26 Oral, ity of (TYLENOL) 20:45: 19:43 ONCE, 1 [place] tablet 975 00 :00 dose, On Medic al mg [facility] 12/27/21 at 1445, EILEEN iopamidol 2021-02- No [id number] 70mL 70 mL, U nivers (ISOVUE 02-26 Intravenou ity o f 370-500 mL) 20:00: 20:01 s, ONCE, 1 [place] injection 00 :00 dose, On Medica l 70 mL 12/27/21 at 1400, Routine ketorolac 2021-02- No 30mg 30 mg, Unive rs (TORADOL) 02-26 Slow IV ity of injection 19:45: 18:45 Push, [place] 30 mg 00 :00 ONCE, 1 Medical dose, On [place] Sun12/27/21 at 1345, EILEEN FENTanyl PF 2021-02- No 75ug 75 mcg, Un jb (SUBLIMAZE 02-26 Slow IV ity o f (PF)) 19:30: 18:33 Push, [place] injection 00 :00 ONCE, 1 Medical 75 mcg dose, On [place] Sun12/27/21 at 1330, STAT melatonin 3 2021-02- No 6mg Take 6 mg Univers mg tablet 02-26 by mouth ity o f 18:51: 00:00 at [place] 50 :00 bedtime. Medical Branch FENTanyl PF 2021-02- No 50ug 50 mcg, Un jb (SUBLIMAZE 02-26 Slow IV ity o f (PF)) 18:45: 17:39 Push, [place] injection 00 :00 ONCE, 1 Medical 50 mcg dose, On [place] Sun12/27/21 at 1245, STAT ondansetron 2021-02- No 4mg 4 mg, Slow Univers (ZOFRAN 02-26 IV Push, ity of (PF)) 18:45: 17:39 ONCE, 1 [place] injection 4 00 :00 dose, On Medi kandis mg 12/27/21 at 1245, EILEEN fluticasone 2021-02 Yes 1{puff} Inhale 1 Univers propion-tavia 0-30 Puff every it y of meteroL 18:14: 12 [place] 250-50 57 (twelve) Medical mcg/dose hours. Branch inhalation disk flecainide 2021-02 Yes 50mg Take 50 mg U nivers acetate 0-30 by mouth ity of (FLECAINIDE 18:14: every [place] ORAL) 57 morning. Medical Branch metoprolol 2021-02 Yes 25mg Take 25 mg U nivers tartrate 25 0-30 by mouth ity of mg tablet 18:14: in the [place] [address] morning. Medical Branch gabapentin 2021-02 Yes 400mg Take 400 Un jb 400 mg 0-30 mg by ity of capsule 18:14: mouth 3 [place] [address] (three) Medical times Branch daily. pantoprazol 2021-02 Yes 40mg Take 40 mg Univers e 40 mg EC 0-30 by mouth ity o f tablet 18:14: daily. [place] [address] Medical Branch aspirin 81 2021-02 Yes 81mg Take 81 mg U nivers mg chewable 0-30 by mouth ity of tablet 18:14: daily. [place] [address] Medical Branch melatonin 3 2021-02 Yes 6mg Take 6 mg U nivers mg tablet 0-30 by mouth ity of 18:14: at [place] [address] bedtime. Medical Branch HYDROcodone 2021-02 Yes 1{tbl} Take 1 Un jb -acetaminop 0-30 tablet by ity of hen 5-325 18:14: mouth in [facility] s mg tablet 57 the Medical morning Branch and 1 tablet at noon and 1 tablet in the evening. fluticasone 2021-02 Yes 1{puff} Inhale 1 Univers propion-tavia 0-30 Puff every it y of meteroL 18:14: 12 [place] 250- 57 (twelve) Medical mcg/dose hours. Branch inhalation disk flecainide 2021-02 Yes 50mg Take 50 mg U nivers acetate 0-30 by mouth ity of (FLECAINIDE 18:14: every [place] ORAL) 57 morning. Medical Branch metoprolol 2021-02 Yes 25mg Take 25 mg U nivers tartrate 25 0-30 by mouth ity of mg tablet 18:14: in the [place] [address] morning. Medical Branch gabapentin 2021-02 Yes 400mg Take 400 Un jb 400 mg 0-30 mg by ity of capsule 18:14: mouth 3 [place] [address] (three) Medical times Branch daily. pantoprazol 2021-02 Yes 40mg Take 40 mg Univers e 40 mg EC 0-30 by mouth ity o f tablet 18:14: daily. [place] [address] Medical Branch aspirin 81 2021-02 Yes 81mg Take 81 mg U nivers mg chewable 0-30 by mouth ity of tablet 18:14: daily. [place] [address] Medical Branch melatonin 3 2021-02 Yes 6mg Take 6 mg U nivers mg tablet 0-30 by mouth ity of 18:14: at [place] [address] bedtime. Medical Branch HYDROcodone 2021-02 Yes 1{tbl} Take 1 Un jb -acetaminop 0-30 tablet by ity of hen 5-325 18:14: mouth in [facility] s mg tablet 57 the Medical morning Branch and 1 tablet at noon and 1 tablet in the evening. fluticasone 2021-02 Yes 1{puff} Inhale 1 Univers propion-tavia 0-30 Puff every it y of meteroL 18:14: 12 [place] 250-50 57 (twelve) Medical mcg/dose hours. Branch inhalation disk flecainide 2021-02 Yes 50mg Take 50 mg U nivers acetate 0-30 by mouth ity of (FLECAINIDE 18:14: every [place] ORAL) 57 morning. Medical Branch metoprolol 2021-02 Yes 25mg Take 25 mg U nivers tartrate 25 0-30 by mouth ity of mg tablet 18:14: in the [place] [address] morning. Medical Branch gabapentin 2021-02 Yes 400mg Take 400 Un jb 400 mg 0-30 mg by ity of capsule 18:14: mouth 3 [place] [address] (three) Medical times Branch daily. pantoprazol 2021-02 Yes 40mg Take 40 mg Univers e 40 mg EC 0-30 by mouth ity o f tablet 18:14: daily. [place] [address] Medical Branch aspirin 81 2021-02 Yes 81mg Take 81 mg U nivers mg chewable 0-30 by mouth ity of tablet 18:14: daily. [place] [address] Medical Branch melatonin 3 2021-02 Yes 6mg Take 6 mg U nivers mg tablet 0-30 by mouth ity of 18:14: at [place] [address] bedtime. Medical Branch HYDROcodone 2021-02 Yes 1{tbl} Take 1 Un jb -acetaminop 0-30 tablet by ity of hen 5-325 18:14: mouth [place] mg tablet 57 the Medical morning Branch and 1 tablet at noon and 1 tablet in the evening. fluticasone 2021-02 Yes 1{puff} Inhale 1 Univers propion-tavia 0-30 Puff every it y of meteroL 18:14: [address] [place] [address] (twelve) Medical mcg/dose hours. Branch inhalation disk flecainide 2021-02 Yes 50mg Take 50 mg U nivers acetate 0-30 by mouth ity of (FLECAINIDE 18:14: every [place] ORAL) 57 morning. Medical Branch metoprolol 2021-02 Yes 25mg Take 25 mg U nivers tartrate 25 0-30 by mouth ity of mg tablet 18:14: in the [place] [address] morning. Medical Branch gabapentin 2021-02 Yes 400mg Take 400 Un jb 400 mg 0-30 mg by ity of capsule 18:14: mouth 3 [place] [address] (three) Medical times Branch daily. pantoprazol 2021-02 Yes 40mg Take 40 mg Univers e 40 mg EC 0-30 by mouth ity o f tablet 18:14: daily. [place] [address] Medical Branch aspirin 81 2021-02 Yes 81mg Take 81 mg U nivers mg chewable 0-30 by mouth ity of tablet 18:14: daily. [place] [address] Medical Branch melatonin 3 2021-02 Yes 6mg Take 6 mg U nivers mg tablet 0-30 by mouth ity of 18:14: at [place] [address] bedtime. Medical Branch HYDROcodone 2021-02 Yes 1{tbl} Take 1 Un jb -acetaminop 0-30 tablet by ity of hen 5-325 18:14: mouth in [place] mg tablet 57 the Medical morning Branch and 1 tablet at noon and 1 tablet in the evening. sulfur 2021-02- No [id number] 5mL 5 mL, Univ ers hexafluorid 0-30 10-30 Intravenou i ty of e microsphr 15:00: 14:49 s, ONCE, 1 [place] (LUMASON) 00 :00 dose, On Medica l injection 5 Sun Branch mL 12/04/21 at 1000, Routine
state farm agent team member approving Restricted medication : JOHN HOOPER lactobacill 2021-02 Yes .5mg 0.5 mg, Uni vers us 0-30 Oral, ity of acidophilus 14:00: DAILY, [place] tablet 0.5 00 First dose Med ical mg on [facility] 12/04/21 at 0900, Until Discontinu ed, Routine enoxaparin 2021-02 Yes 40mg 40 mg, Unive rs (LOVENOX) 0-30 Subcutaneo ity of injection 14:00: [place], [place]ILY, [place] 40 mg 00 First dose Medical on [facility] 12/04/21 at 0900, Until Discontinu ed, Routine polyethylen 2021-02 Yes 17g 17 g, Unive rs e glycol 0-30 Oral, ity of 3350 powder 14:00: DAILY, [place] 17 g 00 First dose Medical on [facility] 12/04/21 at 0900, Until Discontinu ed, Routine pantoprazol 2021-02 Yes 40mg 40 mg, Univ ers e 0-30 Oral, ity of (PROTONIX) 14:00: DAILY, [place] EC tablet 00 First dose Medi kandis 40 mg on [facility] 12/04/21 at 0900, Until Discontinu ed, Routine flecainide 2021-02 Yes 50mg 50 mg, Unive rs (TAMBOCOR) 0-30 Oral, QAM, ity of tablet 50 14:00: First dose [place] mg 00 on [facility] 12/04/21 Branch at 0900, Until Discontinu ed aspirin 2021-02 Yes 81mg 81 mg, Univers chewable 0-30 Oral, ity of tablet 81 14:00: DAILY, [place] mg 00 First dose Medical on [facility] 12/04/21 at 0900, Until Discontinu ed, Routine predniSONE 2021-02 Yes 50mg 50 mg, Unive rs (DELTASONE) 0-30 Oral, QAM ity of tablet 50 13:00: WITH [place] mg 00 BREAKFAST, Medical First dose Branch on [place] 12/04/21 at 0800, Until Discontinu ed, Routine magnesium 2021-02 Yes 400mg 400 mg, Univ ers oxide 0-30 Oral, BID, ity of (MAG-OX 13:00: First dose [place] 400) tablet 00 on [place] Medica l 400 mg 12/04/21 Branch at 0800, Until Discontinu ed, Routine budesonide 2021-02 Yes .5mg 0.5 mg, Univ ers (PULMICORT 0-30 Inhalation ity of RESPULE) 13:00: , BID, [place] nebulizer 00 First dose Medi kandis solution on [place] Branch 0.5 mg 12/04/21 at 0800, Until Discontinu ed, Routine levoFLOXaci 2021-02 Yes 750mg 750 mg, IV Univers n in D5W 0-30 Piggyback, ity o f (LEVAQUIN) 07:30: Q24H ABX, [place] 750 mg/150 00 First dose Med ical mL on [facility] Piggyback 12/04/21 750 mg at 0230, Until [...] s 20 mg 00 :00 dose, On Medical [facility] 12/04/21 at 0215, Routine magnesium 2021-02 No 2g 2 g, IV Univ ers sulfate in 0-30 10-30 Piggyback, it y of water 2 07:15: 07:56 Administer [place] gram/50 mL 00 :00 over 60 Medica l (4 %) Minutes, Branch infusion 2 ONCE, 1 g dose, On [place] 12/04/21 at 0215, Routine ipratropium 2021-02 Yes .5mg 0.5 mg, Uni vers (ATROVENT) 0-30 Inhalation ity of 0.02 % 06:30: , Q4H, [place] nebulizer 00 First dose Medi kandis solution on [place] Branch 0.5 mg 12/04/21 at 0130, Until Discontinu ed, Routine levalbutero 2021-02 Yes 1.25mg 1.25 mg, Univers l (XOPENEX) 0-30 Inhalation it y of nebulizer 06:30: , Q4H, [place] solution 00 First dose Medic al 1.25 mg (after Branch last reorder) on [place] 12/04/21 at 0130, Until Discontinu ed, Routine metoprolol 2021-02 Yes 25mg 25 mg, Unive rs tartrate 0-30 Oral, BID, ity o f (LOPRESSOR) 06:30: First dose [place] tablet 25 00 (after Medical mg last Branch modificati on) on [place] 12/04/21 at 0130, Until Discontinu ed, Routine HYDROcodone 2021-02 Yes 1{tbl} 1 tablet, Univers -acetaminop 0-30 Oral, ity of hen (NORCO) 03:28: Q6HPRN, [place] 10-325 mg 14 Starting Medica l tablet 1 on [facility] Branch tablet 12/03/21 at 2228, Until Discontinu ed, Routine, Pain (scale 4-6) FENTanyl PF 2021-02 Yes 25ug 25 mcg, Uni vers (SUBLIMAZE 0-30 Slow IV ity of (PF)) 03:27: Push, [place] injection 56 Q4HPRN, Medical 25 mcg Starting Branch on [facility] 12/03/21 at 2227, Until Discontinu ed, Routine, Pain (scale 7-10) melatonin 2021-02 Yes 6mg 6 mg, Univers (MELATIN) 0-30 Oral, QHS, ity of tablet 6 mg 02:00: First dose [place] 00 on [facility] 12/03/21 Branch at 2100, Until Discontinu ed, Routine docusate 2021-02 Yes 100mg 100 mg, Unive rs (COLACE) 0-30 Oral, BID, ity o f capsule 100 01:00: First dose [place] mg 00 on [facility] Medical 12/03/21 Branch at 2000, Until Discontinu ed, Routine ondansetron 2021-02 Yes 4mg 4 mg, Slow Univers (ZOFRAN 0-30 IV Push, ity of (PF)) 00:39: Q6HPRN, [place] injection 4 05 Starting Medi kandis mg on [facility] Branch 12/03/21 at 1939, Until Discontinu ed, Routine, Nausea and Vomiting (N/V) HYDROcodone 2021-02- No 1{tbl} 1 tablet, Univers -acetaminop 0-30 10-30 Oral, ity of hen (NORCO) 00:39: 03:28 Q6HPRN, [place] 10-325 mg 02 :27 Starting Medica l tablet 1 on Sat Branch tablet 12/03/21 at 1939, Until 12/03/21 at 2228, Routine, Pain (scale 7-10) acetaminoph 2021-02 Yes 650mg 650 mg, Un jb en 0-30 Oral, ity of (TYLENOL) 00:38: Q6HPRN, [place] tablet 650 49 Starting Medic al mg [...] 1.25mg 1.25 mg, Univers l (XOPENEX) 0-30 1029 Inhalation i ty of nebulizer 00:15: 23:27 [...] Wheezing or Shortness of Breath. NaCl 0.9% 2021-02 No 500mL at 999 Univ ers (NS) bolus 10-30 mL/hr, 500 it y of infusion 23:00: 00:08 mL, IV [place] 500 mL 00 :00 Infusion, Medical ONCE, 1 Branch dose, On 12/03/21 at 1800, EILEEN HYDROcodone 2021-02- No 1{tbl} 1 tablet, Univers -acetaminop 12-03 Oral, ity of hen (NORCO 23:00: 23:02 ONCE, 1 [place] 5) 5-325 mg 00 :00 dose, On Medi kandis tablet 1 Sat Branch tablet 12/03/21 at 1800, EILEEN FENTanyl PF 2021-02 No 25ug 25 mcg, Un jb (SUBLIMAZE 12-03 Slow IV ity o f (PF)) 23:00: 23:15 Push, [place] injection 00 :00 ONCE, 1 Medical 25 mcg dose, On Branch 12/03/21 at 1800, STAT methylPREDN 2021-02 No 120mg 120 mg, U nivers ISolone sod 12-03 Intravenou i ty of succ 23:00: 23:00 [...] 12/03/21 at 1814, EILEEN, Chest pain predniSONE 2021-02- No [id number] Take 6 Univers 10 mg 11-08 tablets by ity of tablet 00:00: 05:59 mouth [place] 00 :00 daily for Medical 3 days, Branch THEN 3 tablets daily for 3 days, THEN 2 tablets daily for 3 days, THEN 1 tablet daily for 3 days, THEN 0.5 tablets daily for 3 days. predniSONE 2021-02 [id number] Take 6 Univers 10 mg 0-23 11-08 tablets by ity of tablet 00:00: 05:59 mouth [place] 00 :00 daily for Medical 3 days, Branch THEN 3 tablets daily for 3 days, THEN 2 tablets daily for 3 days, THEN 1 tablet daily for 3 days, THEN 0.5 tablets daily for 3 days. predniSONE 2021-02 [id number] Take 6 Univers 10 mg 0-23 11-08 tablets by ity of tablet 00:00: 05:59 mouth [place] 00 :00 daily for Medical 3 days, Branch THEN 3 tablets daily for 3 days, THEN 2 tablets daily for 3 days, THEN 1 tablet daily for 3 days, THEN 0.5 tablets daily for 3 days. predniSONE 2021-02 [id number] Take 6 Univers 10 mg 0-23 11-08 tablets by ity of tablet 00:00: 05:59 mouth [place] 00 :00 daily for Medical 3 days, Branch THEN 3 tablets daily for 3 days, THEN 2 tablets daily for 3 days, THEN 1 tablet daily for 3 days, THEN 0.5 tablets daily for 3 days. predniSONE 2021-02 [id number] Take 6 Univers 10 mg 0-23 11-08 tablets by ity of tablet 00:00: 05:59 mouth [place] 00 :00 daily for Medical 3 days, Branch THEN 3 tablets daily for 3 days, THEN 2 tablets daily for 3 days, THEN 1 tablet daily for 3 days, THEN 0.5 tablets daily for 3 days. predniSONE 2021-02 [id number] Take 6 Univers 10 mg 0-23 11-08 [...] every it y of meteroL 16:39: 12 [place] 250-50 58 (twelve) Medical mcg/dose hours. Branch inhalation disk flecainide 2021-02 Yes 50mg Take 50 mg U nivers acetate 0-22 by mouth ity of (FLECAINIDE 16:39: every [place] ORAL) 58 morning. Medical Branch metoprolol 2021-02 Yes 25mg Take 25 mg U nivers tartrate 25 0-22 by mouth ity of mg tablet 16:39: in the [place] [address] morning. Medical Branch gabapentin 2021-02 Yes 400mg Take 400 Un jb 400 mg 0-22 mg by ity of capsule 16:39: mouth 3 [place] [address] (three) Medical times Branch daily. pantoprazol 2021-02 Yes 40mg Take 40 mg Univers e 40 mg EC 0-22 by mouth ity o f tablet 16:39: daily. [place] [address] Medical Branch aspirin 81 2021-02 Yes 81mg Take 81 mg U nivers mg chewable 0-22 by mouth ity of tablet 16:39: daily. [place] [address] Medical Branch melatonin 3 2021-02 Yes 6mg Take 6 mg U nivers mg tablet 0-22 by mouth ity of 16:39: at [place] [address] bedtime. Medical Branch HYDROcodone 2021-02 Yes 1{tbl} Take 1 Un jb -acetaminop 0-22 tablet by ity of hen 5-325 16:39: mouth in [facility] s mg tablet 58 the Medical morning Branch and 1 tablet at noon and 1 tablet in the evening. fluticasone 2021-02 Yes 1{puff} Inhale 1 Univers propion-tavia 0-22 Puff every it y of meteroL 16:39: 12 [place] 250-50 58 (twelve) Medical mcg/dose hours. Branch inhalation disk flecainide 2021-02 Yes 50mg Take 50 mg U nivers acetate 0-22 by mouth ity of (FLECAINIDE 16:39: every [place] ORAL) 58 morning. Medical Branch metoprolol 2021-02 Yes 25mg Take 25 mg U nivers tartrate 25 0-22 by mouth ity of mg tablet 16:39: in the [place] [address] morning. Medical Branch gabapentin 2021-02 Yes 400mg Take 400 Un jb 400 mg 0-22 mg by ity of capsule 16:39: mouth 3 [place] [address] (three) Medical times Branch daily. pantoprazol 2021-02 Yes 40mg Take 40 mg Univers e 40 mg EC 0-22 by mouth ity o f tablet 16:39: daily. [place] [address] Medical Branch aspirin 81 2021-02 Yes 81mg Take 81 mg U nivers mg chewable 0-22 by mouth ity of tablet 16:39: daily. [place] [address] Medical Branch melatonin 3 2021-02 Yes 6mg Take 6 mg U nivers mg tablet 0-22 by mouth ity of 16:39: at [place] [address] bedtime. Medical Branch HYDROcodone 2021-02 Yes 1{tbl} Take 1 Un jb -acetaminop 0-22 tablet by ity of hen 5-325 16:39: mouth in [place] mg tablet 58 the Medical morning Branch and 1 tablet at noon and 1 tablet in the evening. fluticasone 2021-02 Yes 1{puff} Inhale 1 Univers propion-tavia 0-22 Puff every it y of meteroL 16:39: 12 [place] [facility] (twelve) Medical mcg/dose hours. Branch inhalation disk flecainide 2021-02 Yes 50mg Take 50 mg U nivers acetate 0-22 by mouth ity of (FLECAINIDE 16:39: every [place] ORAL) morning. Medical Branch metoprolol 2021-02 Yes 25mg Take 25 mg U nivers tartrate 25 0-22 by mouth ity of mg tablet 16:39: in the [place] [address] morning. Medical Branch gabapentin 2021-02 Yes 400mg Take 400 Un jb 400 mg 0-22 mg by ity of capsule 16:39: mouth 3 [place] [address] (three) Medical times Branch daily. pantoprazol 2021-02 Yes 40mg Take 40 mg Univers e 40 mg EC 0-22 by mouth ity o f tablet 16:39: daily. [place] [address] Medical Branch aspirin 81 2021-02 Yes 81mg Take 81 mg U nivers mg chewable 0-22 by mouth ity of tablet 16:39: daily. [place] [address] Medical Branch melatonin 3 2021-02 Yes 6mg Take 6 mg U nivers mg tablet 0-22 by mouth ity of 16:39: at [place] [address] bedtime. Medical Branch HYDROcodone 2021-02 Yes 1{tbl} [...] Until Discontinu ed, Routine cyclobenzap 2021-02- No [id number] 10mg Take 1 Univers rine 10 mg 0-22 11-22 tablet by ity of tablet 00:00: 05:59 mouth 3 [place] 00 :00 (three) Medical times Branch daily as needed for Muscle Spasms for up to 30 days. cyclobenzap 2021-02 No [id number] 10mg Take 1 [facility] rine 10 mg 0-22 11-22 tablet by ity of tablet 00:00: 05:59 mouth 3 [place] 00 :00 (three) Medical times Branch daily as needed for Muscle Spasms for up to 30 days. cyclobenzap 2021-02 No [id number] 10mg Take 1 Univers rine 10 mg 0-22 11-22 tablet by ity of tablet 00:00: 05:59 mouth 3 [place] 00 :00 (three) Medical times Branch daily as needed for Muscle Spasms for up to 30 days. cyclobenzap 2021-02 No [id number] 10mg Take 1 Univers rine 10 mg 0-22 11-22 tablet by ity of tablet 00:00: 05:59 mouth 3 [place] 00 :00 (three) Medical times Branch daily as needed for Muscle Spasms for up to 30 days. cyclobenzap 2021-02 No [id number] 10mg Take 1 Univers rine 10 mg 0-22 11-22 tablet by ity of tablet 00:00: 05:59 mouth 3 [place] 00 :00 (three) Medical times Branch daily as needed for Muscle Spasms for up to 30 days. cyclobenzap 2021-02 No [id number] 10mg Take 1 Univers rine 10 mg 0-22 11-22 tablet by ity of tablet 00:00: 05:59 mouth 3 [place] 00 :00 (three) Medical times Branch daily as needed for Muscle Spasms for up to 30 days. cyclobenzap 2021-02 No [id number] 10mg Take 1 Univers rine 10 mg [...] 7 days. Indication s: chronic pain azithromyci 2021-02 No [id number] 500mg Take 1 Univers n 500 mg 0-22 10-26 tablet by ity o f tablet 00:00: 04:59 mouth in [place] 00 :00 the Medical morning Branch for 3 days. azithromyci 2021-02 No [id number] 500mg Take 1 Univers n 500 mg 0-22 10-26 tablet by ity o f tablet 00:00: 04:59 mouth in [place] 00 :00 the Medical [...] Sun11/25/21 at 1249, Routine, break through HYDROcodone 2021-02- No 1{tbl} 1 tablet, Univers -acetaminop 0-20 10-21 Oral, ity of hen (NORCO) 15:14: 17:49 Q6HPRN, [place] 10-325 mg 00 :31 Starting Medica l tablet 1 on [facility] tablet 11/24/21 at 1014, Until 11/25/21 at 1249, Routine, Pain (scale 7-10) metoprolol 2021-02 Yes 25mg 25 mg, Unive rs tartrate 0-20 Oral, ity of (LOPRESSOR) 14:00: DAILY, [place] tablet 25 00 First dose Medi kandis mg (after Branch last modificati on) on [facility] 11/24/21 at 0900, Until Discontinu ed, Routine enoxaparin 2021-02 Yes 40mg 40 mg, Unive rs (LOVENOX) 0-20 Subcutaneo ity of injection 14:00: [place], DAILY, [place] 40 mg 00 First dose Medical on [facility] 11/24/21 at 0900, Until Discontinu ed, Routine pantoprazol 2021-02 Yes 40mg 40 mg, Univ ers e 0-20 Oral, ity of (PROTONIX) 14:00: DAILY, [place] EC tablet 00 First dose Medi kandis 40 mg on [facility] 11/24/21 at 0900, Until Discontinu ed, Routine aspirin 2021-02 Yes 81mg 81 mg, Univers chewable 0-20 Oral, ity of tablet 81 14:00: DAILY, [place] mg 00 First dose Medical on [facility] 11/24/21 at 0900, Until Discontinu ed, Routine fluticasone 2021-02 Yes 1{puff} 1 Puff, Univers propion-tavia 0-20 Inhalation it y of meteroL 13:00: , Q12H, [place] (ADVAIR) 00 First dose Medic al 250-50 on [facility] mcg/dose 11/24/21 inhalation at 0800, disk 1 Puff Until Discontinu ed, Routine docusate 2021-02 Yes 100mg 100 mg, Unive rs (COLACE) 0-20 Oral, BID, ity o f capsule 100 13:00: First dose [place] mg 00 on [facility] 11/24/21 Branch at 0800, Until Discontinu ed, Routine cyclobenzap 2021-02 Yes 10mg 10 mg, Univ ers rine 0-20 Oral, ity of (FLEXERIL) 10:40: TIDPRN, [place] tablet 10 31 Starting Medica l mg on [facility] Branch 11/24/21 at 0540, Until Discontinu ed, Routine, Muscle Spasms HYDROmorpho 2021-02- No .5mg 0.5 mg, Un jb ne 0-20 10-20 Slow IV ity of (DILAUDID) 10:15: 09:29 Push, [place] injection 00 :00 ONCE, 1 Medical 0.5 mg dose, On Branch [facility] 11/24/21 at 0515, Routine
Use approved by (Faculty): ADC PROVIDER HYDROcodone 2021-02- No 1{tbl} 1 tablet, Univers -acetaminop 0-20 10-20 Oral, ity of hen (NORCO 08:49: 15:21 Q8HPRN, [place]) 5-325 mg 58 :30 Starting Medi kandis tablet 1 on [facility] Branch tablet 11/24/21 at 0349, Until [facility] 11/24/21 at 1021, Routine, Pain (scale 4-6) guaiFENesin 2021-02 Yes 200mg 200 mg, Un jb 100 mg/5 mL 0-20 Oral, ity of solution 08:27: Q4HPRN, [place] 200 mg 53 Starting Medical on [facility] Branch 11/24/21 at 0327, Until Discontinu ed, Routine, Cough ondansetron 2021-02 Yes 4mg 4 mg, Slow Univers (ZOFRAN 0-20 IV Push, ity of (PF)) 08:26: Q6HPRN, [place] injection 4 58 Starting Medi kandis mg on [facility] Branch 11/24/21 at 0326, Until Discontinu ed, Routine, Nausea and Vomiting (N/V) acetaminoph 2021-02 Yes 650mg 650 mg, Un jb en 0-20 Oral, ity of (TYLENOL) 08:26: Q6HPRN, [place] tablet 650 22 Starting Medic al mg on [facility] Branch 11/24/21 at 0326, Until Discontinu ed, Routine, Pain (scale 1-3) polyethylen 2021-02 Yes 17g 17 g, Unive rs e glycol 0-20 Oral, ity of 3350 powder 08:23: [id number], [place] 17 g 29 Starting Medical on [facility] Branch 11/24/21 at 0323, Until Discontinu ed, Routine, Constipati on ondansetron 2021-02 4mg 4 mg, Slow Univers (ZOFRAN 0-08 10-08 IV Push, ity of (PF)) 18:30: 18:31 ONCE, 1 [place] injection 4 00 :00 dose, On Medi kandis mg Sat Branch 11/12/21 at 1330, EILEEN FENTanyl PF 2021-02 50ug 50 mcg, Un jb (SUBLIMAZE 0-08 10-08 Slow IV ity o f (PF)) 18:00: 17:53 Push, [place] injection 00 :00 ONCE, 1 Medical 50 mcg dose, On Branch 11/12/21 at 1300, STAT HYDROcodone 2021-02 1{tbl} Take 1 U nivers -acetaminop 0-08 10-08 tablet by it y of hen (NORCO) 15:05: 00:00 mouth 3 [place] 5-325 mg 54 :00 (three) Medical tablet times Branch daily. HYDROcodone 2021-02 No [id number] 1{tbl} Take 1 U nivers [...] 1 Medical 1.25 mg dose, On Branch Sun09/14/21 at 1545, Routine ipratropium 2021- No .5mg 0.5 mg, Un jb (ATROVENT) 09-14 Inhalation it y of 0.02 % 19:45: 19:40 , ONCE, 1 [place] nebulizer 00 :00 dose, On Medica l solution Sun Branch 0.5 mg 09/14/21 at 1445, EILEEN FENTanyl PF 2021- No 25ug 25 mcg, Un jb (SUBLIMAZE 09-14 Slow IV ity o f (PF)) 18:00: 17:59 Push, [place] injection 00 :00 ONCE, 1 Medical 25 mcg dose, On Branch 09/14/21 at 1300, STAT polyethylen 2021-0 Yes [id number] 17g Take 1 Univers e glycol 8-03 Packet by ity of 3350 17 00:00: mouth in [place] gram powder 00 the Medical morning. Branch polyethylen 2021-0 Yes [id number] 17g Take 1 Univers e glycol 8-03 Packet by ity of 3350 17 00:00: mouth in [place] gram powder 00 the Medical morning. Branch polyethylen 2021-0 Yes 17g Take 1 Univers e glycol 8-03 Packet by ity of 3350 17 00:00: mouth in [place] gram powder 00 the Medical morning. Branch polyethylen 2021-0 Yes 17g Take 1 Univers e glycol 8-03 Packet by ity of 3350 17 00:00: mouth in [place] gram powder 00 the Medical morning. Branch polyethylen 2021-0 Yes [id number] 17g Take 1 Univers e glycol 8-03 Packet by ity of 3350 17 00:00: mouth in [place] gram powder 00 the Medical morning. Branch polyethylen 2021-0 Yes [id number] 17g Take 1 Univers e glycol 8-03 Packet by ity of 3350 17 00:00: mouth in [place] gram powder 00 the Medical morning. Branch polyethylen 2021-0 Yes 17g Take 1 Univers e glycol 8-03 Packet by ity of 3350 17 00:00: mouth in [place] gram powder 00 the Medical morning. Branch polyethylen 2021-0 Yes 17g Take 1 Univers e glycol 8-03 Packet by ity of 3350 17 00:00: mouth in [place] gram powder 00 the Medical morning. Branch polyethylen 2021-0 Yes [id number] 17g Take 1 Univers e glycol 8-03 Packet by ity of 3350 17 00:00: mouth in [place] gram powder 00 the Medical morning. Branch polyethylen 2021-0 Yes 17g Take 1 Univers e glycol 8-03 Packet by ity of 3350 17 00:00: mouth in [place] gram powder 00 the Medical morning. Branch polyethylen 2021-0 Yes 17g Take 1 Univers e glycol 8-03 Packet by ity of 3350 17 00:00: mouth in [place] gram powder 00 the Medical morning. Branch polyethylen 2021-0 2- No [id number] 17g Take 1 Univers e glycol 8-03 11-22 Packet by ity o f 3350 17 00:00: 00:00 mouth in [place] gram powder 00 :00 the Medical morning. Branch cholecalcif 2021-0 2- No [id number] 1000U Take 1 Univers usha, 8-03 08-09 tablet by ity of vitamin D3, 00:00: 04:59 mouth in [place] 25 mcg 00 :00 the Medical (1,000 morning Branch unit) for 5 tablet days. zinc 2021-0 2021- No [id number] 50mg Take 1 Unive rs sulfate 50 09-07 capsule by it y of mg zinc 00:00: 04:59 mouth in [place] (220 mg) 00 :00 the Medical capsule morning Branch for 5 days. cholecalcif 2021-2021- No [id number] 1000U Take 1 Univers usha, 09-07 tablet by ity of vitamin D3, 00:00: 04:59 mouth in [place] 25 mcg 00 :00 the Medical (1,000 morning Branch unit) for 5 tablet days. zinc 2021-2021- No [id number] 50mg Take 1 Unive rs sulfate 50 09-07 capsule by it y of mg zinc 00:00: 04:59 mouth in [place] (220 mg) 00 :00 the Medical capsule morning Branch for 5 days. fluticasone Yes 1{puff} Inhale 1 Univers propion-tavia 8-02 Puff every it y of meteroL 17:25: 12 [place] [facility] (twelve) Medical mcg/dose hours. Branch inhalation [...] it y of mg tablet 17:25: (two) [place] 34 times Medical daily. Branch gabapentin 0 Yes 400mg Take 400 Un jb 400 mg 8-02 mg by ity of capsule 17:25: mouth 3 [place] 34 (three) Medical times Branch daily. pantoprazol 0 Yes 40mg Take 40 mg Univers e 40 mg EC 8-02 by mouth ity o f tablet 17:25: daily. [place] [address] Medical Branch aspirin 81 2021-0 Yes 81mg Take 81 mg U nivers mg chewable 8-02 by mouth ity of tablet 17:25: daily. [place] [address] Medical Branch melatonin 3 Yes 6mg Take 6 mg U nivers mg tablet 8-02 by mouth ity of 17:25: at [place] [address] bedtime. Medical Branch fluticasone Yes 1{puff} Inhale 1 Univers propion-tavia 8-02 Puff every it y of meteroL 17:25: 12 [place] [facility] (twelve) Medical mcg/dose hours. Branch inhalation disk flecainide Yes 50mg Take 50 mg U nivers acetate 8-02 by mouth ity of (FLECAINIDE 17:25: every [place] ORAL) morning. Medical Branch HYDROcodone Yes 1{tbl} Take 1 Un jb -acetaminop 8-02 tablet by ity of hen (NORCO) 17:25: mouth 3 [place] 5-325 mg 34 (three) Medical tablet times Branch daily. metoprolol Yes 25mg Take 25 mg U nivers tartrate 25 8-02 by mouth 2 it y of mg tablet 17:25: (two) [place] [address] times Medical daily. Branch gabapentin Yes 400mg Take 400 Un jb 400 mg 8-02 mg by ity of capsule 17:25: mouth 3 [place] 34 (three) Medical times Branch daily. pantoprazol Yes 40mg Take 40 mg Univers e 40 mg EC 8-02 by mouth ity o f tablet 17:25: daily. [place] [address] Medical Branch aspirin 81 Yes 81mg Take 81 mg U nivers mg chewable 8-02 by mouth ity of tablet 17:25: daily. [place] [address] Medical Branch melatonin 3 Yes 6mg Take 6 mg U nivers mg tablet 8-02 by mouth ity of 17:25: at [place] [address] bedtime. Medical Branch fluticasone Yes 1{puff} Inhale 1 Univers propion-tavia 8-02 Puff every it y of meteroL 17:25: 12 [place] 250-50 (twelve) Medical mcg/dose hours. Branch inhalation [...] it y of mg tablet 17:25: (two) [place] 34 times Medical daily. Branch gabapentin 0 Yes 400mg Take 400 Un jb 400 mg 8-02 mg by ity of capsule 17:25: mouth 3 [place] 34 (three) Medical times Branch daily. pantoprazol 0 Yes 40mg Take 40 mg Univers e 40 mg EC 8-02 by mouth ity o f tablet 17:25: daily. [place] [address] Medical Branch aspirin 81 0 Yes 81mg Take 81 mg U nivers mg chewable 8-02 by mouth ity of tablet 17:25: daily. [place] [address] Medical Branch melatonin 3 0 Yes 6mg Take 6 mg U nivers mg tablet 8-02 by mouth ity of 17:25: at [place] [address] bedtime. Medical Branch fluticasone 0 Yes 1{puff} Inhale 1 Univers propion-tavia 8-02 Puff every it y of meteroL 17:25: 12 [place] 250-50 34 (twelve) Medical mcg/dose hours. Branch inhalation disk flecainide Yes 50mg Take 50 mg U nivers acetate 8-02 by mouth ity of (FLECAINIDE 17:25: every [place] ORAL) 34 morning. Medical Branch metoprolol 0 Yes 25mg Take 25 mg U nivers tartrate 25 8-02 by mouth 2 it y of mg tablet 17:25: (two) [place] 34 times Medical daily. Branch gabapentin 0 Yes 400mg Take 400 Un jb 400 mg 8-02 mg by ity of capsule 17:25: mouth 3 [place] 34 (three) Medical times Branch daily. pantoprazol 0 Yes 40mg Take 40 mg Univers e 40 mg EC 8-02 by mouth ity o f tablet 17:25: daily. [place] [address] Medical Branch aspirin 81 2021-0 Yes 81mg Take 81 mg U nivers mg chewable 8-02 by mouth ity of tablet 17:25: daily. [place] [address] Medical Branch melatonin 3 Yes 6mg Take 6 mg U nivers mg tablet 8-02 by mouth ity of 17:25: at [place] [address] bedtime. Medical Branch phenoL Yes 1{spray 1 [place], Univ ers (SORE 8-02 } Oral, PRN, ity of THROAT 15:55: Starting [place] (PHENOL)) 44 on Tue Medical 1.4 % spray 09/06/21 at [facility] bottle 1 1055, [place] Until Discontinu ed, Routine, Sore throat docusate Yes [id number] 100mg Take 1 U nivers 100 mg 8-02 capsule by ity of capsule 00:00: mouth in [place] [address] the Medical morning Branch and 1 capsule in the evening. phenoL 1.4 Yes 1{spray Take 1 Univers % spray 8-02 } [place] by ity of 00:00: mouth as [place] [address] needed for Medical Sore Branch throat. docusate 2021-0 Yes [id number] 100mg Take 1 U nivers 100 mg 8-02 capsule by ity of capsule 00:00: mouth in [place] 00 the Medical morning Branch and 1 capsule in the evening. phenoL 1.4 2021- Yes [id number] 1{spray Take 1 Univers % spray 8-02 } [place] by ity of 00:00: mouth as [place] [address] needed for Medical Sore Branch throat. docusate 2021- Yes [id number] 100mg Take 1 U nivers 100 mg 8-02 capsule by ity of capsule 00:00: mouth in [place] 00 the Medical morning Branch and 1 capsule in the evening. phenoL 1.4 2021-0 Yes [id number] 1{spray Take 1 Univers % spray 8-02 } [place] by ity of 00:00: mouth as [place] 00 needed for Medical Sore Branch throat. docusate 2021-0 Yes [id number] 100mg Take 1 U nivers 100 mg 8-02 capsule by ity of capsule 00:00: mouth in [place] 00 the Medical morning Branch and 1 capsule in the evening. phenoL 1.4 2021- Yes [id number] 1{spray Take 1 Univers % spray 8-02 } [place] by ity of 00:00: mouth as [place] 00 needed for Medical Sore Branch throat. docusate 2021-0 Yes [id number] 100mg Take 1 U nivers 100 mg 8-02 capsule by ity of capsule 00:00: mouth in [place] 00 the Medical morning Branch and 1 capsule in the evening. phenoL 1.4 2021-0 Yes [id number] 1{spray Take 1 Univers % spray 8-02 } [place] by ity of 00:00: mouth as [place] 00 needed for Medical Sore Branch throat. docusate 2021-0 Yes [id number] 100mg Take 1 U nivers 100 mg 8-02 capsule by ity of capsule 00:00: mouth in [place] 00 the Medical morning Branch and 1 capsule in the evening. phenoL 1.4 2021-0 Yes [id number] 1{spray Take 1 Univers % spray 8-02 } [place] by ity of 00:00: mouth as [place] 00 needed for Medical Sore Branch throat. docusate 2021-0 Yes [id number] 100mg Take 1 U nivers 100 mg 8-02 capsule by ity of capsule 00:00: mouth in [place] 00 the Medical morning Branch and 1 capsule in the evening. phenoL 1.4 2021-0 Yes [id number] 1{spray Take 1 Univers % spray 8-02 } [place] by ity of 00:00: mouth as [place] 00 needed for Medical Sore Branch throat. docusate 2021-0 Yes [id number] 100mg Take 1 U nivers 100 mg 8-02 capsule by ity of capsule 00:00: mouth in [place] 00 the Medical morning Branch and 1 capsule in the evening. phenoL 1.4 2021-0 Yes [id number] 1{spray Take 1 Univers % spray 8-02 } [place] by ity of 00:00: mouth as [place] 00 needed for Medical Sore Branch throat. docusate 2021-0 Yes [id number] 100mg Take 1 U nivers 100 mg 8-02 capsule by ity of capsule 00:00: mouth in [place] 00 the Medical morning Branch and 1 capsule in the evening. phenoL 1.4 2021-0 Yes [id number] 1{spray Take 1 Univers % spray 8-02 } [place] by ity of 00:00: mouth as [place] 00 needed for Medical Sore Branch throat. docusate 2022-0 Yes [id number] 100mg Take 1 U nivers 100 mg 8-02 capsule by ity of capsule 00:00: mouth in [place] 00 the Medical morning Branch and 1 capsule in the evening. phenoL 1.4 2021-0 Yes [id number] 1{spray Take 1 Univers % spray 8-02 } [place] by ity of 00:00: mouth as [place] 00 needed for Medical Sore Branch throat. docusate 2-0 Yes [id number] 100mg Take 1 U nivers 100 mg 8-02 capsule by ity of capsule 00:00: mouth in [place] 00 the Medical morning Branch and 1 capsule in the evening. phenoL 1.4 2021-0 Yes [id number] 1{spray Take 1 Univers % spray 8-02 } [place] by ity of 00:00: mouth as [place] 00 needed for Medical Sore Branch throat. docusate 2021-0 Yes [id number] 100mg Take 1 U nivers 100 mg 8-02 capsule by ity of capsule 00:00: mouth in [place] 00 the Medical morning Branch and 1 capsule in the evening. docusate 2021-0 Yes [id number] 100mg Take 1 U nivers 100 mg 8-02 capsule by ity of capsule 00:00: mouth in [place] 00 the Medical morning Branch and 1 capsule in the evening. docusate 2021-0 Yes [id number] 100mg Take 1 U nivers 100 mg 8-02 capsule by ity of capsule 00:00: mouth in [place] 00 the Medical morning Branch and 1 capsule in the evening. docusate 2021-0 Yes [id number] 100mg Take 1 U nivers 100 mg 8-02 capsule by ity of capsule 00:00: mouth in [place] 00 the Medical morning Branch and 1 capsule in the evening. docusate 2021-0 Yes [id number] 100mg Take 1 U nivers 100 mg 8-02 capsule by ity of capsule 00:00: mouth in [place] 00 the Medical morning Branch and 1 capsule in the evening. docusate 2-0 Yes [id number] 100mg Take 1 U nivers 100 mg 8-02 capsule by ity of capsule 00:00: mouth in [place] 00 the Medical morning Branch and 1 capsule in the evening. docusate 2021-0 Yes [id number] 100mg Take 1 U nivers 100 mg 8-02 capsule by ity of capsule 00:00: mouth in [place] 00 the Medical morning Branch and 1 capsule in the evening. docusate 2021-0 Yes [id number] 100mg Take 1 U nivers 100 mg 8-02 capsule by ity of capsule 00:00: mouth in [place] 00 the Medical morning Branch and 1 capsule in the evening. docusate 2021-0 Yes [id number] 100mg Take 1 U nivers 100 mg 8-02 capsule by ity of capsule 00:00: mouth in [place] 00 the Medical morning Branch and 1 capsule in the evening. docusate 2021-0 Yes [id number] 100mg Take 1 U nivers 100 mg 8-02 capsule by ity of capsule 00:00: mouth in [place] 00 the Medical morning Branch and 1 capsule in the evening. docusate 2021-0 Yes [id number] 100mg Take 1 U nivers 100 mg 8-02 capsule by ity of capsule 00:00: mouth in [place] [address] the Medical morning Branch and 1 capsule in the evening. docusate 2021-0 Yes [id number] 100mg Take 1 U nivers 100 mg 8-02 capsule by ity of capsule 00:00: mouth in [place] [address] the Medical morning Branch and 1 capsule in the evening. docusate 2021-0 Yes [id number] 100mg Take 1 U nivers 100 mg 8-02 capsule by ity of capsule 00:00: mouth in [place] [address] the Medical morning Branch and 1 capsule in the evening. docusate 2021-0 Yes [id number] 100mg Take 1 U nivers 100 mg 8-02 capsule by ity of capsule 00:00: mouth in [place] [address] the Medical morning Branch and 1 capsule in the evening. docusate 2021-0 Yes [id number] 100mg Take 1 U nivers 100 mg 8-02 capsule by ity of capsule 00:00: mouth in [place] [address] the Medical morning Branch and 1 capsule in the evening. docusate 2021-0 Yes [id number] 100mg Take 1 U nivers 100 mg 8-02 capsule by ity of capsule 00:00: mouth in [place] [address] the Medical morning Branch and 1 capsule in the evening. phenoL 1.4 2021-0 2021- No [id number] 1{spray Take 1 Univers % spray 09-06 } [place] by ity of 00:00: 00:00 mouth as [place] 00 :00 needed for Medical Sore Branch throat. ascorbic 2021-0 2021- No [id number] 500mg Take 1 Univers acid, 09-06 tablet by ity of vitamin C, 00:00: 04:59 mouth in [place] 500 mg 00 :00 the Medical tablet morning Branch and 1 tablet in the evening. Do all this for 5 days. ascorbic 2021-0 2021- No [id number] 500mg Take 1 Univers acid, 09-06 tablet by ity of vitamin C, 00:00: 04:59 mouth in [place] 500 mg 00 :00 the Medical tablet morning Branch and 1 tablet in the evening. Do all this for 5 days. dexAMETHaso No [id number] 6mg Take 1 Univers ne 6 mg 09-06 tablet by ity of tablet 00:00: 00:00 mouth in [place] 00 :00 the Medical morning Branch for 5 days. ondansetron Yes 4mg 4 mg, Slow Univers (ZOFRAN 09-05 IV Push, ity of (PF)) 17:19: Q6HPRN, [place] injection 4 56 Nausea and Me dical mg Vomiting Branch (N/V), Starting on Sun09/05/21 at 1219
Do ses of ondansetro n 16 mg and above need to be administer ed via IV piggyback. For Dose >=24mg ECG monitoring is advisable.
docusate Yes 100mg 100 mg, Unive rs (COLACE) 09-05 Oral, BID, ity o f capsule 100 01:00: First dose [place] mg 00 on [facility] 09/04/21 at Branch 2000, Until Discontinu ed, Routine polyethylen Yes 17g 17 g, Unive rs e glycol 09-04 Oral, ity of 3350 powder 23:30: DAILY, [place] 17 g 00 First dose Medical on [facility] 09/04/21 at 1830, Until Discontinu ed, Routine HYDROcodone Yes 1{tbl} 1 tablet, Univers -acetaminop 09-04 Oral, ity of hen (NORCO) 21:54: Q6HPRN, [place] 10-325 mg 05 Starting Medica l tablet 1 on Sun Branch tablet 09/04/21 at 1654, Until Discontinu ed, Routine, Pain (scale 4-6) HYDROmorpho 2021- No .5mg 0.5 mg, Un jb ne 09-04 08-02 Slow IV ity of (DILAUDID) 21:53: 21:52 Push, [place] injection 53 :53 Q4HPRN, Medical 0.5 mg Starting Branch on 09/04/21 at 1653, Until 09/06/21 at 1652, Routine, Pain (scale 7-10)
U [...] 00 First dose Medical on Sun Branch 09/04/21 at 0930, Until Discontinu ed, Routine HYDROmorpho 2021- No 1mg 1 mg, Slow Univers ne 09-04 IV Push, ity of (DILAUDID) 11:45: 10:54 ONCE, 1 [place] injection 1 00 :00 dose, On Medi kandis mg Sun Branch 09/04/21 at 0645, Routine
Use approved by (Faculty): ADC PROVIDER FENTanyl PF No 25ug 25 mcg, Un jb (SUBLIMAZE 09-03 Slow IV ity o f (PF)) 20:45: 19:40 Push, [place] injection 00 :00 ONCE, 1 Medical 25 mcg dose, On Branch 09/03/21 at 1545, Routine enoxaparin Yes 40mg 40 mg, Unive rs (LOVENOX) 09-03 Subcutaneo ity of injection 20:15: us, Q24H, [place] 40 mg 00 First dose Medical on Sat Branch 09/03/21 at 1515, Until Discontinu ed, Routine azithromyci 2021- No 500mg 500 mg, IV Univers n 09-03 08 Piggyback, ity of (ZITHROMAX) 20:15: 21:19 Q24H [...] No 1{tbl} 1 tablet, Univers -acetaminop 09-02 07 Oral, ity of hen (NORCO) 19:34: 21:54 [...] Discontinu ed, Routine cholecalcif Yes 1000U 1,000 Univ ers usha 09-02 Units, ity of (vitamin 14:00: Oral, [place] D3) tablet 00 DAILY, Medical 1,000 Units First dose Br anch on Sun09/02/21 at 0900, Until Discontinu ed, Routine dexamethaso 2021-0 Yes 6mg 6 mg, IV Un jb ne sod phos 09-02 Push, ity of PF 14:00: DAILY, [place] injection 6 00 First dose Me dical mg on Sun Branch 09/02/21 at 0900, Until Discontinu ed, 1 mL pantoprazol 0 Yes 40mg 40 mg, Univ ers e 09-02 Oral, ity of (PROTONIX) 14:00: DAILY, [place] EC tablet 00 First dose Medi kandis 40 mg on Sun09/02/21 at 0900, Until Discontinu ed, Routine aspirin 2021-0 Yes 81mg 81 mg, Univers chewable 09-02 Oral, ity of tablet 81 14:00: DAILY, [place] mg 00 First dose Medical on Sun09/02/21 at 0900, Until Discontinu ed, Routine ascorbic 2021-0 Yes 500mg 500 mg, Unive rs acid 09-02 Oral, BID, ity of (vitamin C) 13:00: First dose [place] (VITAMIN C) 00 on Sun Medica l tablet 500 09/02/21 at [facility] [place] mg 0800, Until Discontinu ed, Routine metoprolol 0 Yes 25mg 25 mg, Unive rs tartrate 09-02 Oral, BID, ity o f (LOPRESSOR) 13:00: First dose [place] tablet 25 00 on Sun Medical mg 09/02/21 at Branch 0800, Until Discontinu ed, Routine fluticasone 0 Yes 1{puff} 1 Puff, Univers propion-tavia 09-02 Inhalation it y of meteroL 06:15: , Q12H, [place] (ADVAIR) 00 First dose Medic al 250-50 (after Branch mcg/dose last inhalation modificati disk 1 Puff on) on Sun09/02/21 at 0115, Until Discontinu ed, Routine melatonin 2021-0 Yes 6mg 6 mg, Univers (MELATIN) 09-02 Oral, QHS, ity of tablet 6 mg 06:00: First dose [place] 00 on Sun Medical 09/02/21 at Branch 0100, Until Discontinu ed, Routine guaiFENesin 2021-0 Yes 200mg 200 mg, Un jb (FENESIN 09-02 Oral, ity of IR) tablet 05:50: Q4HPRN, [place] 200 mg 35 Starting Medical on Fri Branch 09/02/21 at 0050, Until Discontinu ed, Routine, Cough HYDROcodone 202- No 1{tbl} 1 tablet, [facility] -acetaminop 09-02 Oral, ity of hen (NORCO 05:50: 19:30 Q6HPRN, [place] 5) 5-325 mg 01 :28 Starting Medi kandis tablet 1 on Fri Branch tablet 09/02/21 at 0050, Until 09/03/21 at 1430, Routine, Pain (scale 4-6) acetaminoph Yes 650mg 650 mg, Un jb en 09-02 Oral, ity of (TYLENOL) 05:49: Q6HPRN, [place] tablet 650 58 Starting Medic al mg on Sun Branch 09/02/21 at 0049, Until Discontinu ed, Routine, Pain (scale 1-3) HYDROcodone 2021- No 1{tbl} 1 tablet, Univers -acetaminop 09-02 Oral, ity of hen (NORCO 03:15: 02:16 ONCE, 1 [place] 5) 5-325 mg 00 :00 dose, On Medi kandis tablet 1 Sun Branch tablet 09/01/21 at 2215, EILEEN ketorolac 2021- No 15mg 15 mg, Unive rs (TORADOL) 09-02 Slow IV ity of injection 02:45: 01:43 Push, [place] 15 mg 00 :00 ONCE, 1 Medical dose, On Branch Leah 09/01/21 at 2145, Routine iopamidol 2021- No [id number] 70mL 70 mL, Univers (ISOVUE 09-02 Intravenou ity o f 370-500 mL) 01:25: 01:24 s, ONCE, 1 [place] injection 00 :00 dose, On Medica l 70 mL [place] Branch 09/01/21 at 2045, Routine levalbutero 2021- No 1.25mg 1.25 mg, Univers l (XOPENEX) 7-29 07-29 Inhalation i ty of nebulizer 01:00: 00:06 , ONCE, 1 [place] solution 00 :00 dose, On Medical 1.25 mg [place] Branch 09/01/21 at 2000, Routine ipratropium 2021- No .5mg 0.5 mg, Un jb (ATROVENT) 09-02 Inhalation it y of 0.02 % 01:00: 00:06 , ONCE, 1 [place] nebulizer 00 :00 dose, On Medica l solution [place] Branch 0.5 mg 09/01/21 at 1999, EILEEN levalbutero 2021- No 1.25mg 1.25 mg, Univers l (XOPENEX) 09-02 Inhalation i ty of nebulizer 00:30: 23:31 , ONCE, 1 [place] solution 00 :00 dose, On Medical 1.25 mg [place] [facility] 09/01/21 at 1930, Routine ipratropium 2021- No .5mg 0.5 mg, Un jb (ATROVENT) 09-02 Inhalation it y of 0.02 % 00:30: 23:31 , ONCE, 1 [place] nebulizer 00 :00 dose, On Medica l [...] ity of PF 23:30: 23:44 ONCE, 1 [place] injection 6 00 :00 dose, On Medi kandis mg [place] Branch 09/01/21 at 1830, 1 mL gabapentin Yes 400mg [id number] Take 400 Methodi (NEURONTIN) 5-13 [id number] mg by s t 400 mg 13:46: 3D mouth in Hospita capsule 55 the l morning and 400 mg at noon and 400 mg before bedtime. [place]DROcodone [place] [id number] 1{tbl} Q.[id number] Take 1 [facility]i -acetaminop 5-[id number] hen (NORCO) 13:46: 3D mouth in Ho [facility]ita 5-325 mg 55 the l per tablet morning and 1 tablet at noon and 1 tablet before bedtime.ac [place] pain. fluticasone Yes 1{puff} Q.5D Inhale 1 [...] QD Take 20 mg Methodi n (LIPITOR) 04-[address] 20 mg 14:06: 00:00 daily. [facility]ospita tablet 42 :00 Default OP l ins metoprolol 2021- No 25mg Take 25 mg [facility]i tartrate 04-14-[address] (LOPRESSOR) 08:51: 00:00 Hospi ta 25 mg 26 :00 l tablet flecainide 2021- No 50mg QD Take 50 mg Methodi (TAMBOCOR) 04-14- by mouth st 50 MG 08:51: 00:00 in the Hospita tablet 26 :00 morning. l ipratropium 2021- No Combivent Methodi -albuteroL 04-[address] (Combivent 08:50: 00:00 20 mcg-100 Hospita Respimat) 00 :00 mcg/actuat l 20-100 ion mcg/actuati solution on mist for inhaler inhalation Inhale 1 puff 4 times a day by inhalation route. ethambutoL 2021- No ethambutol Methodi (MYAMBUTOL) 04-[address] 400 MG 08:49: 00:00 tablet Hospita tablet 36 :00 Take by l oral route. aclidinium 2021- No Q12H every 12 Me thodi bromide 400 04-1410 (twelve) st mcg/actuati 08:48: 00:00 hours. Hos [place] on aerosol 00 :00 l powdr breath activated fluticasone 2021- No 1{puff} Inhale 1 Methodi furoate-laura 04-[address] anteroL 08:47: 00:00 Hospita (Breo [...] 2021- No Spiriva Met hodi bromide 2.5 04-14-[address] mcg/actuati 08:46: 00:00 2.5 Hospi ta on mist 01 :00 mcg/actuat l ion solution for inhalation Inhale 2 puffs every day by inhalation route. umeclidiniu 2021- No 1{puff} Inhale 1 Methodi m (Incruse 04-[address] Ellipta) 08:45: 00:00 Hospita 62.5 [...] 2021- No 1{capsu 1 capsule. Methodi bitartrate 04-1410 le} st (Zohydro 08:42: 00:00 Hospita ER) 10 mg 10 :00 l capsule, oral only, ER 12hr codeine-[place] 2021- [place] [address] 5mL Q.[id number] Take 5 mL Methodi ifenesin 04-14- [id number] by mouth 3 st (GUAIFENESI 08:41: 00:00 3D (three) Ho spita N AC) 34 :00 times a l 10-100 mg/5 day as mL liquid needed for cough .acute pain. azithromyci 2021- No azithromyc Methodi n 3-11 07-[address] (ZITHROMAX) 08:41: 00:00 tablet Hos pan[place] 250 MG 23 :00 l tablet apixaban 2021- No Eliquis 5 Met hodi (Eliquis) 5 3-10 03-[address] mg tablet 08:41: 00:00 Hospita 13 :00 l calcium 2021-2022- No [id number] 1{tbl} Q.5D Take 1 M ethodi carbonate-v 04-[address] itamin D3 00:00: 05:59 mouth 2 Hosp nuha 500 mg-200 00 :00 (two) l unit per times a tablet day with meals. calcium 2021-2022- No [id number] 1{tbl} Q.5D Take 1 M ethodi carbonate-v -04-[address] itamin D3 00:00: 05:59 mouth 2 Hosp nuha 500 mg-200 00 :00 (two) l unit per times a tablet day with meals. calcium 2021-2022- No [id number] 1{tbl} Q.5D Take 1 M ethodi carbonate-v 04-[address] itamin D3 00:00: 05:59 mouth 2 [facility]osp nuha 500 mg-200 00 :00 (two) l unit per times a tablet day with meals. metoprolol Yes 25mg Take 25 mg U nivers tartrate 25 2-10 by mouth 2 it y of mg tablet 03:15: (two) [place] [address] times Medical daily. Branch gabapentin Yes 400mg Take 400 Un jb 400 mg 2-10 mg by ity of capsule 03:15: mouth 3 [place] [address] (three) Medical times Branch daily. pantoprazol 0 Yes 40mg Take 40 mg Univers e 2-10 by mouth ity of (PROTONIX) 03:15: daily. [place] 40 [place] [address] Medical tablet Branch aspirin 81 0 Yes 81mg Take 81 mg U nivers mg chewable 2-10 by mouth ity of tablet 03:15: daily. [place] [address] Medical Branch melatonin 3 2021-0 Yes 6mg Take 6 mg U nivers mg tablet 2-10 by mouth ity of 03:15: at [place] [address] bedtime. Medical Branch metoprolol 0 Yes 25mg Take 25 mg U nivers tartrate 25 2-10 by mouth 2 it y of mg tablet 03:15: (two) [place] [address] times Medical daily. Branch gabapentin 2-0 Yes 400mg Take 400 Un jb 400 mg 2-10 mg by ity of capsule 03:15: mouth 3 [place] 04 (three) Medical times [place] daily. pantoprazol 2022-0 Yes 40mg Take 40 mg Univers e 2-10 by mouth ity of (PROTONIX) 03:15: daily. [place] 40 mg EC 04 Medical tablet Branch aspirin 81 2021-0 Yes 81mg Take 81 mg U nivers mg chewable 2-10 by mouth ity of tablet 03:15: daily. [place] Medical Branch melatonin 3 2021-0 Yes 6mg Take 6 mg U nivers mg tablet 2-10 by mouth ity of 03:15: at [place] [address] bedtime. Medical Branch metoprolol 2-0 Yes 25mg Take 25 mg U nivers tartrate 25 2-10 by mouth 2 it y of mg tablet 03:15: (two) [place] [address] times Medical daily. Branch gabapentin 2-0 Yes 400mg Take 400 Un jb 400 mg 2-10 mg by ity of capsule 03:15: mouth 3 [place] (three) Medical times [place] daily. pantoprazol 2-0 Yes 40mg Take 40 mg Univers e 2-10 by mouth ity of (PROTONIX) 03:15: daily. [place] 40 mg EC 04 Medical tablet Branch aspirin 81 2021-0 Yes 81mg Take 81 mg U nivers mg chewable 2-10 by mouth ity of tablet 03:15: daily. [place] Medical Branch melatonin 3 2-0 Yes 6mg Take 6 mg U nivers mg tablet 2-10 by mouth ity of 03:15: at [place] [address] bedtime. Medical Branch metoprolol 2-0 Yes 25mg Take 25 mg U nivers tartrate 25 2-10 by mouth 2 it y of mg tablet 03:15: (two) [place] [address] times Medical daily. Branch gabapentin 2022-0 Yes 400mg Take 400 Un jb 400 mg 2-10 mg by ity of capsule 03:15: mouth 3 [place] (three) Medical times [place] daily. pantoprazol 2022-0 Yes 40mg Take 40 mg Univers e 2-10 by mouth ity of (PROTONIX) 03:15: daily. [place] 40 mg EC 04 Medical tablet Branch aspirin 81 2021-0 Yes 81mg Take 81 mg U nivers mg chewable 2-10 by mouth ity of tablet 03:15: daily. [place] Medical Branch melatonin 3 2021-0 Yes 6mg Take 6 mg U nivers mg tablet 2-10 by mouth ity of 03:15: at [place] [address] bedtime. Medical Branch metoprolol 2021-0 Yes 25mg Take 25 mg U nivers tartrate 25 2-10 by mouth 2 it y of mg tablet 03:15: (two) [place] [address] times Medical daily. Branch gabapentin 2021-0 Yes 400mg Take 400 Un jb 400 mg 2-10 mg by ity of capsule 03:15: mouth 3 [place] [address] (three) Medical times [place] daily. pantoprazol 2021-0 Yes 40mg Take 40 mg Univers e 2-10 by mouth ity of (PROTONIX) 03:15: daily. [place] 40 mg EC 04 Medical tablet Branch aspirin 81 2021-0 Yes 81mg Take 81 mg U nivers mg chewable 2-10 by mouth ity of tablet 03:15: daily. [place] [address] Medical Branch melatonin 3 2021-0 Yes 6mg Take 6 mg U nivers mg tablet 2-10 by mouth ity of 03:15: at [place] [address] bedtime. Medical Branch metoprolol 2021-0 Yes 25mg Take 25 mg U nivers tartrate 25 2-10 by mouth 2 it y of mg tablet 03:15: (two) [place] [address] times Medical daily. Branch gabapentin 2021-0 Yes 400mg Take 400 Un jb 400 mg 2-10 mg by ity of capsule 03:15: mouth 3 [place] [address] (three) Medical times [place] daily. pantoprazol 2021-0 Yes 40mg Take 40 mg Univers e 2-10 by mouth ity of (PROTONIX) 03:15: daily. [place] 40 mg EC 04 Medical tablet Branch aspirin 81 2021-0 Yes 81mg Take 81 mg U nivers mg chewable 2-10 by mouth ity of tablet 03:15: daily. [place] [facility] Branch melatonin 3 2021-0 Yes 6mg Take 6 mg U nivers mg tablet 2-10 by mouth ity of 03:15: at [place] [address] bedtime. Medical Branch metoprolol 2021-0 Yes 25mg Take 25 mg U nivers tartrate 25 2-10 by mouth 2 it y of mg tablet 03:15: (two) [place] 04 times Medical daily. Branch gabapentin 0 Yes 400mg Take 400 Un jb 400 mg 2-10 mg by ity of capsule 03:15: mouth 3 [place] 04 (three) Medical times Branch daily. pantoprazol 2021-0 Yes 40mg Take 40 mg Univers e 2-10 by mouth ity of (PROTONIX) 03:15: daily. [place] 40 mg EC 04 Medical tablet Branch aspirin 81 2021-0 Yes 81mg Take 81 mg U nivers mg chewable 2-10 by mouth ity of tablet 03:15: daily. [place] 04 Medical Branch melatonin 3 2021-0 Yes 6mg Take 6 mg U nivers mg tablet 2-10 by mouth ity of 03:15: at [place] 04 bedtime. Medical Branch fluticasone 0 Yes 1{puff} Inhale 1 Univers propion-tavia 2-08 Puff every it y of meteroL 15:50: 12 [place] (ADVAIR 10 (twelve) Medical DISKUS) hours. Branch 250-50 mcg/dose inhalation disk flecainide Yes Take by Univ ers acetate 2-08 [...] EC 10 Medical tablet Branch aspirin 81 2021-0 Yes 81mg Take 81 mg U nivers mg chewable 2-08 by mouth ity of tablet 15:50: daily. [place] 10 Medical Branch melatonin 3 2022-0 Yes 6mg Take 6 mg U nivers mg tablet 2-08 by mouth ity of 15:50: at [place] 10 bedtime. Medical Branch fluticasone Yes 1{puff} Inhale 1 [facility] propion-tavia 2-08 Puff every it y of meteroL 15:50: 12 [place] (ADVAIR 10 (twelve) Medical DISKUS) hours. Branch 250-50 mcg/dose inhalation disk flecainide Yes Take by Univ ers acetate 2-08 mouth 2 ity of (FLECAINIDE 15:50: (two) [place] ORAL) 10 times Medical daily. Branch HYDROcodone Yes 1{tbl} Take 1 Un jb -acetaminop 2-08 tablet by ity of hen (NORCO) 15:50: mouth 3 Lj as 5-325 mg 10 (three) Medical tablet times Branch daily. fluticasone Yes 1{puff} Inhale 1 [facility] propion-tavia 2-08 Puff every it y of meteroL 15:50: 12 [place] (ADVAIR 10 (twelve) Medical DISKUS) hours. Branch 250-50 mcg/dose inhalation disk flecainide Yes Take by Univ ers acetate 2-08 mouth 2 ity of (FLECAINIDE 15:50: (two) [place] ORAL) 10 times Medical daily. Branch HYDROcodone Yes 1{tbl} Take 1 Un jb -acetaminop 2-08 tablet by ity of hen (NORCO) 15:50: mouth 3 Lj as 5-325 mg 10 (three) Medical tablet times Branch daily. fluticasone Yes 1{puff} Inhale 1 [facility] propion-tavia 2-08 Puff every it y of meteroL 15:50: 12 [place] (ADVAIR 10 (twelve) Medical DISKUS) hours. Branch 250-50 mcg/dose inhalation disk flecainide Yes Take by Univ ers acetate 2-08 [...] inhalation disk flecainide 0 Yes Take by [facility] ers acetate 2-08 mouth 2 ity of [...] inhalation disk flecainide 0 Yes Take by [facility] ers acetate 2-08 mouth 2 ity of [...] (three) Medical tablet times Branch daily. fluticasone 2022-0 Yes 1{puff} Inhale 1 [facility] propion-tavia 2-08 Puff every it y of meteroL 15:50: 12 [place] (ADVAIR 10 (twelve) Medical DISKUS) hours. Branch 250-50 mcg/dose inhalation disk flecainide Yes Take by [facility] ers acetate 2-08 mouth 2 ity of (FLECAINIDE 15:50: (two) [place] ORAL) 10 times Medical daily. Branch HYDROcodone Yes 1{tbl} Take 1 Un jb -acetaminop 2-08 tablet by ity of hen (NORCO) 15:50: mouth 3 Lj as 5-325 mg 10 (three) Medical tablet times Branch daily. fluticasone Yes 1{puff} Inhale 1 [facility] propion-tavia 2-08 Puff every it y of meteroL 15:50: 12 [place] (ADVAIR 10 (twelve) Medical DISKUS) hours. Branch 250-50 mcg/dose inhalation disk flecainide Yes Take by [facility] ers acetate 2-08 mouth 2 ity of (FLECAINIDE 15:50: (two) [place] ORAL) 10 times Medical daily. Branch HYDROcodone Yes 1{tbl} Take 1 Un jb -acetaminop 2-08 tablet by ity of hen (NORCO) 15:50: mouth 3 Lj as 5-325 mg 10 (three) Medical tablet times Branch daily. simethicone Yes 120mg 125 mg Uni vers (MYLICON) 2-08 (rounded ity of chewable 03:16: from 120 [place] tablet 125 38 mg), Oral, Med ical mg TIDPRN, Branch Starting on Sun03/14/21 at 2116, Until Discontinu ed, Routine, Gas loperamide Yes [id number] 2mg Take 1 U nivers 2 mg 2-08 capsule by ity of capsule 00:00: mouth [place] 00 every 4 Medical (four) Branch hours as needed for Diarrhea. simethicone Yes [id number] 125mg Take 1 Univers 125 mg 2-08 tablet by ity of chewable 00:00: mouth 3 [place] tablet 00 (three) Medical times Branch daily as needed for Gas. loperamide 0 Yes [id number] 2mg Take 1 U nivers 2 mg 2-08 capsule by ity of capsule 00:00: mouth [place] 00 every 4 Medical (four) Branch hours as needed for Diarrhea. simethicone 2022-0 Yes [id number] 125mg Take 1 [facility] 125 mg 2-08 tablet by ity of chewable 00:00: mouth 3 [place] tablet 00 (three) Medical times Branch daily as needed for Gas. loperamide 2-0 Yes [id number] 2mg Take 1 U nivers 2 mg 2-08 capsule by ity of capsule 00:00: mouth [place] 00 every 4 Medical (four) Branch hours as needed for Diarrhea. simethicone 2022-0 Yes [id number] 125mg Take 1 [facility] 125 mg 2-08 tablet by ity of chewable 00:00: mouth 3 [place] tablet 00 (three) Medical times Branch daily as needed for Gas. loperamide 2-0 Yes [id number] 2mg Take 1 U nivers 2 mg 2-08 capsule by ity of capsule 00:00: mouth [place] 00 every 4 Medical (four) Branch hours as needed for Diarrhea. simethicone 2022-0 Yes [id number] 125mg Take 1 [facility] 125 mg 2-08 tablet by ity of chewable 00:00: mouth 3 [place] tablet 00 (three) Medical times Branch daily as needed for Gas. loperamide 2-0 Yes [id number] 2mg Take 1 U nivers 2 mg 2-08 capsule by ity of capsule 00:00: mouth [place] 00 every 4 Medical (four) Branch hours as needed for Diarrhea. simethicone 2022-0 Yes [id number] 125mg Take 1 [facility] 125 mg 2-08 tablet by ity of chewable 00:00: mouth 3 [place] tablet 00 (three) Medical times Branch daily as needed for Gas. loperamide 2022-0 Yes [id number] 2mg Take 1 U nivers 2 mg 2-08 capsule by ity of capsule 00:00: mouth [place] 00 every 4 Medical (four) Branch hours as needed for Diarrhea. simethicone 2022-0 Yes [id number] 125mg Take 1 [facility] 125 mg 2-08 tablet by ity of chewable 00:00: mouth 3 [place] tablet 00 (three) Medical times Branch daily as needed for Gas. loperamide 2022-0 Yes [id number] 2mg Take 1 U nivers 2 mg 2-08 capsule by ity of capsule 00:00: mouth [place] 00 every 4 Medical (four) Branch hours as needed for Diarrhea. simethicone 2021-0 Yes [id number] 125mg Take 1 [facility] 125 mg 2-08 tablet by ity of chewable 00:00: mouth 3 [place] tablet 00 (three) Medical times Branch daily as needed for Gas. loperamide 2021-0 Yes [id number] 2mg Take 1 U nivers 2 mg 2-08 capsule by ity of capsule 00:00: mouth [place] 00 every 4 Medical (four) Branch hours as needed for Diarrhea. simethicone 2021-0 Yes [id number] 125mg Take 1 [facility] 125 mg 2-08 tablet by ity of chewable 00:00: mouth 3 [place] tablet 00 (three) Medical times Branch daily as needed for Gas. loperamide 2- No [id number] 2mg Take 1 Univers 2 mg 2-08 07-29 capsule by ity of capsule 00:00: 00:00 mouth [place] 00 :00 every 4 Medical (four) Branch hours as needed for Diarrhea. simethicone 2- No [id number] 125mg Take 1 [facility] 125 mg 2-08 07-29 tablet by ity of chewable 00:00: 00:00 mouth 3 [place] tablet 00 :00 (three) Medical times Branch daily as needed for Gas. lactobacill 2021- No [id number] .5mg Take 1 Univers us 2-08 03-11 tablet by ity of acidophilus 00:00: 05:59 mouth 2 [place] 00 :00 (two) Medical times Branch daily for 30 days. lactobacill 2021-0 2021- No [id number] .5mg Take 1 [facility] us 2-08 03-11 tablet by ity of acidophilus 00:00: 05:59 mouth 2 [place] 00 :00 (two) Medical times Branch daily for 30 days. lactobacill 2021-0 2021- No [id number] .5mg Take 1 Univers us 2-08 03-11 tablet by ity of acidophilus 00:00: 05:59 mouth 2 [place] 00 :00 (two) Medical times Branch daily for 30 days. lactobacill 2021-0 2021- No [id number] .5mg Take 1 Univers us 2-08 03-11 tablet by ity of acidophilus 00:00: 05:59 mouth 2 [place] 00 :00 (two) Medical times Branch daily for 30 days. predniSONE 2021- No [id number] Take 4 Univers 10 mg 03-15 tablets by ity of tablet 00:00: 05:59 mouth [place] 00 :00 daily for Medical 3 days, Branch THEN 3 tablets daily for 3 days, THEN 2 tablets daily for 3 days, THEN 1 tablet daily for 3 days, THEN 0.5 tablets daily for 3 days. predniSONE 2021- No [id number] Take 4 [facility] 10 mg 03-15 tablets by ity of tablet 00:00: 05:59 mouth [place] 00 :00 daily for Medical 3 days, Branch THEN 3 tablets daily for 3 days, THEN 2 tablets daily for 3 days, THEN 1 tablet daily for 3 days, THEN 0.5 tablets daily for 3 days. predniSONE 2021- No [id number] Take 4 [facility] 10 mg 03-15 tablets by ity of tablet 00:00: 05:59 mouth [place] 00 :00 daily for Medical 3 days, Branch THEN 3 tablets daily for 3 days, THEN 2 tablets daily for 3 days, THEN 1 tablet daily for 3 days, THEN 0.5 tablets daily for 3 days. levoFLOXaci 2021- No [id number] 750mg Take 1 Univers n 750 mg 03-15 tablet by ity o f tablet 00:00: 05:59 mouth [place] 00 :00 every 24 Medical (twenty- Branch ur) hours for 5 days. levoFLOXaci 2021- No [id number] 750mg Take 1 Univers n 750 mg 03-15 tablet by ity o f tablet 00:00: 05:59 mouth [place] 00 :00 every 24 Medical (twenty-fo Branch ur) hours for 5 days. KCL 2021- No 40meq 40 mEq, Univers (KLOR-CON 03-14 Oral, ity of M20) tablet 18:45: 18:59 ONCE, 1 [place] 40 mEq 00 :00 dose, On Medical 03/14/21 Branch at 1245, Routine magnesium 2021- No 2g 2 g, IV Univ ers sulfate in 2-07 02-07 Piggyback, it y of water 2 18:45: 19:00 ONCE, 1 [place] gram/50 mL 00 :00 dose, On Medic al (4 %) 03/14/21 Branch infusion 2 at 1245, g Routine lactobacill 0 Yes .5mg 0.5 mg, Uni vers us 2-07 Oral, BID, ity of acidophilus 02:00: First dose [place] tablet 0.5 00 on [place] Medical mg 03/13/21 at Branch 1999, Until Discontinu ed, Routine loperamide Yes 2mg 2 mg, Univer s (IMODIUM 2-06 Oral, ity of A-D) 20:56: Q4HPRN, [place] capsule 2 35 Starting Medica l mg on Sun Branch 03/13/21 at 1456, Until Discontinu ed, Routine, Diarrhea KCL 2021-2021- No 40meq 40 mEq, Univers (KLOR-CON 2-06 02-06 Oral, ity of M20) tablet 15:30: 15:24 ONCE, 1 [place] 40 mEq 00 :00 dose, On Medical 03/13/21 Branch at 0930, Routine HYDROcodone 0 Yes 1{tbl} 1 tablet, Univers -acetaminop 2-06 Oral, ity of hen (NORCO) 01:15: Q4HPRN, Lj as 10-325 mg 00 Starting Medica l tablet 1 on Sat Branch tablet 03/12/21 at 1915, Until Discontinu ed, Routine, Pain (scale 4-6) docusate 0 Yes 100mg 100 mg, Unive rs (COLACE) 2-05 Oral, ity of capsule 100 02:00: DAILY, [place] mg 00 First dose Medical on Sun Branch 03/11/21 at 2000, Until Discontinu ed, Routine metoprolol 0 Yes 25mg 25 mg, Unive rs tartrate 2-04 Oral, ity of (LOPRESSOR) 15:00: DAILY, [place] tablet 25 00 First dose Medi kandis mg (after Branch last modificati on) on Sun03/11/21 at 0900, Until Discontinu ed, Routine flecainide 0 Yes 50mg 50 mg, Unive rs (TAMBOCOR) 2-04 Oral, ity of tablet 50 15:00: DAILY, [place] mg 00 First dose Medical (after Branch last modificati on) on Sun03/11/21 at 0900, Until Discontinu ed, Routine predniSONE Yes 50mg 50 mg, Unive rs (DELTASONE) 03-11 Oral, ity of tablet 50 15:00: DAILY, [place] mg 00 First dose Medical on Sun Branch 03/11/21 at 0900, Until Discontinu ed, Routine pantoprazol Yes 40mg 40 mg, Univ ers e 03-11 Oral, ity of (PROTONIX) 15:00: DAILY, [place] EC tablet 00 First dose Medi kandis 40 mg on Sun Branch 03/11/21 at 0900, Until Discontinu ed, Routine aspirin Yes 81mg 81 mg, Univers chewable 03-11 Oral, ity of tablet 81 15:00: DAILY, [place] mg 00 First dose Medical on Sun Branch 03/11/21 at 0900, Until Discontinu ed, Routine levoFLOXaci Yes 500mg 500 mg, IV Univers n in D5W 03-11 Piggyback, ity o f (LEVAQUIN) 08:30: Administer [...] 4.5g 4.5 g, IV Univers n-tazobacta 03-11 0207 Piggyback, i ty of m (ZOSYN) 08:30: [...] mg 03:00: First dose [place] 00 on Leah Medical 03/10/21 at Branch 2100, Until Discontinu ed, Routine fluticasone Yes 1{puff} 1 Puff, Univers propion-tavia 204 Inhalation it y of meteroL 02:00: , Q12H, [place] (ADVAIR) 00 First dose Medic al 250-50 on Leah Branch mcg/dose 03/10/21 at inhalation 2000, disk 1 Puff Until Discontinu ed, Routine
Use approved by (Faculty and pager): ADC PROVIDER enoxaparin Yes 30mg 30 mg, Unive rs (LOVENOX) 2-03 Subcutaneo ity of injection 23:00: us, DAILY, [place] 30 mg 00 First dose Medical on [place] Branch 03/10/21 at 1700, Until Discontinu ed, Routine HYDROcodone 2021- No 1{tbl} 1 tablet, Univers -acetaminop 03-10 Oral, ity of hen (NORCO) 22:11: 01:14 Q6HPRN, [place] 10-325 mg 49 :28 Starting Medica l tablet 1 on [facility] Branch tablet 03/10/21 at 1611, Until 03/12/21 at 1914, Routine, Pain (scale 4-6) acetaminoph Yes 650mg 650 mg, Un jb en 03-10 Oral, ity of (TYLENOL) 21:43: Q6HPRN, [place] tablet 650 47 Starting Medic al mg on Leah Branch 03/10/21 at 1543, Until Discontinu ed, Routine, Pain (scale 1-3) methylpredn 2021- No 125mg 125 mg, U nivers isolone sod 03-10 Intravenou i ty of succ 18:00: 02:02 s, Q6H, [place] (SOLU-MEDRO 00 :25 First dose Me dical L) on [facility] Branch injection 03/10/21 at 125 mg 1200, Until Discontinu ed, Routine azithromyci 2021- No 500mg 500 mg, IV Univers n 03-10 Piggyback, ity of (ZITHROMAX) 17:30: 07:24 Q24H ABX, [place] 500 mg in 00 :33 First dose Medi kandis NaCl 0.9% on [facility] Branch (NS) 250 mL 03/10/21 at VIAL-MATE [...] 1 Medical 25 mcg dose, On Branch [facility] 03/10/21 at 1130, STAT HYDROcodone 2021- No 1{tbl} 1 tablet, Univers -acetaminop 03-10 Oral, ity of hen (NORCO) 17:30: 16:29 ONCE, 1 [place] 10-325 mg 00 :00 dose, On Medica l tablet 1 [facility] 03/10/21 Branc h tablet at 1130, Routine cefTRIAXone No 1000mg 1,000 mg, Univers (ROCEPHIN) 03-10 IV ity of 1,000 mg in 17:30: 17:00 Piggyback, [place] NaCl 0.9% 00 :00 ONCE, 1 Medical (NS) 50 mL dose, On Branc h MINI-BAG [facility] 03/10/21 at 1130, Administer over 30 Minutes, 50 mL
R moe for Anti-Infec tive: Empiric Therapy for Suspected Infection< br>Empiric Therapy Site: Respirator y
Durat ion of therapy: 72 hours pantoprazol 2020-02 No [id number] 40mg Take 1 Univers e 40 mg EC 03-18 tablet by ity of tablet 00:00: 05:59 mouth [place] 00 :00 daily for Medical 30 days. Branch predniSONE 2020-02 No [id number] 20mg Take 1 [facility] 20 mg 03-18 tablet by ity of tablet 00:00: [...] -acetaminop 2-10 tablet by ity of hen (FOODit) 15:23: mouth 3 Lj [place] 5-325 mg 08 (three) Medical tablet times Branch daily. fluticasone 2020-02 Yes 1{puff} Inhale 1 [facility] propion-tavia 2-10 Puff every it y of meteroL 15:23: 12 [place] (ADVAIR 08 (twelve) Medical DISKUS) hours. Branch 250-50 mcg/dose inhalation disk flecainide 2020-02 Yes Take by [facility] ers acetate 2-10 mouth 2 ity of (FLECAINIDE 15:23: (two) [place] ORAL) 08 times Medical daily. Branch HYDROcodone 2020-02 Yes 1{tbl} Take 1 Un jb -acetaminop 2-10 tablet by ity of hen (FOODit) 15:23: mouth 3 [place] 5-325 mg 08 (three) Medical tablet times Branch daily. fluticasone 2020-02 Yes 1{puff} Inhale 1 [facility] propion-tavia 2-10 Puff every it y of meteroL 15:23: 12 [place] (ADVAIR 08 (twelve) Medical DISKUS) hours. Branch 250-50 mcg/dose inhalation disk flecainide 2020-02 Yes Take by [facility] ers acetate 2-10 mouth 2 ity of (FLECAINIDE 15:23: (two) [place] ORAL) 08 times Medical daily. Branch HYDROcodone 2020-02 Yes 1{tbl} Take 1 Un jb -acetaminop 2-10 tablet by ity of hen (FOODit) 15:23: mouth 3 Lj as 5-325 mg 08 (three) Medical tablet times Branch daily. gabapentin 2020-02- No [id number] 300mg Take 1 Univers 300 mg 2-10 01-10 capsule by ity of capsule 00:00: 05:59 mouth 3 [place] 00 :00 (three) Medical times Branch daily for 30 days. melatonin 3 2020-02- No [id number] 3mg Take 1 Univers mg tablet 2-10 01-10 tablet by ity of 00:00: 05:59 mouth at [place] 00 :00 bedtime Medical for 30 Branch days. metoprolol 2020-02- No [id number] 50mg Take 1 Univers succinate 2-10 01-10 tablet by ity of XL 50 mg 24 00:00: 05:59 [place] hr tablet 00 :00 every 12 Medica l (twelve) Branch hours for 30 days. atorvastati 2020-02- No [id number] 20mg Take 1 Univers n 20 mg 2-10 01-10 tablet by ity of tablet 00:00: 05:59 mouth at [place] 00 :00 bedtime Medical for 30 Branch days. azithromyci 2020-02- No [id number] 500mg Take 1 Univers n 500 mg 2-10 12-18 tablet by ity o f tablet 00:00: 05:59 mouth [place] 00 :00 daily for Medical 7 days. Branch docusate 2020-02 No [id number] 100mg Take 1 Univers 100 mg 2-10 12-16 capsule by ity of capsule 00:00: 05:59 mouth 2 [place] 00 :00 (two) Medical times Branch daily for 5 days. aspirin 81 2020-02- No [id number] 81mg Take 1 Univers mg chewable -23 12-24 tablet by it y of tablet 00:00: 05:59 mouth [place] 00 :00 daily for Medical 30 days. Branch metoprolol 2020-02 No 12.5mg Q.5D Take 12.5 Methodi succinate [...] 160-9-4.8 mcg/actuati on HFA aerosol inhaler aspirin 2020-02- No 81mg QD Take 81 mg Met [...] (two) times a day. cholecalcif 2020-02 Yes [id number] 1999U Take 2 Univers usha, 0-24 tablets by ity of vitamin D3, 00:00: mouth [place] 25 mcg 00 daily. Medical (1,000 Branch unit) tablet cholecalcif 2020-02 Yes [id number] 1999U Take 2 Univers usha, 0-24 tablets by ity of vitamin D3, 00:00: mouth [place] 25 mcg 00 daily. Medical (1,000 Branch unit) tablet cholecalcif 2020-02 Yes [id number] 1999U Take 2 Univers usha, 0-24 tablets by ity of vitamin D3, 00:00: mouth [place] 25 mcg 00 daily. Medical (1,000 Branch unit) tablet cholecalcif 2020-02- No 2{tbl} QD Take 2 M ethodi usha, 0-24 03-[address] vitamin D3, 00:00: 00:00 mouth [facility] 1,000 unit 00 :00 daily. l tablet cholecalcif 2020-02- No [id number] Take 2 Univers usha, 0-24 02-03 tablets [...] for Cough. Indication s: severe cough ipratropium No [id number] .5mg Q6H Take 2.5 Methodi (ATROVENT) 8-31 [...] 00 :00 by mouth l tablet daily. pantoprazol 2022- No 40mg QD Take 1 Met hodi e 2-05 02-09 tablet (40 st (PROTONIX) 00:00: 00:00 mg total) H ospita 40 MG EC 00 :00 by mouth l tablet daily. 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 azithromyci azithromyci No azithromyc [facility] n 250 [...] by inhalation inhalation inhalation route. route. route. Immunizations Ordered Immunization Filled Date Status Comments Sour ce Name Immunization Name [facility] >12 YR 2022-01-22 Completed [facility] COVID-19 MRNA 00:00:00 [facility] BIVALENT VACCINATION Zoster 2022-01-22 Completed [facility] 00:00:00 [facility] Remdesivir 2021-09-06 Completed [facility] 00:00:00 [facility] Remdesivir 2021-09-06 Completed University 00:00:00 [facility] Remdesivir 2021-09-06 Completed University 00:00:00 [facility] Remdesivir 2021-09-06 Completed University 00:00:00 [facility] Remdesivir 2021-09-06 Completed University 00:00:00 [facility] Branch Remdesivir 2021-09-06 Completed University 00:00:00 [facility] Remdesivir 2021-09-06 Completed University of 00:00:00 [facility] Remdesivir 2021-09-06 Completed University of 00:00:00 [facility] Remdesivir 2021-09-06 Completed University of 00:00:00 [facility] Remdesivir 2021-09-06 Completed University of 00:00:00 [facility] Remdesivir 2021-09-06 Completed University of 00:00:00 [facility] Remdesivir 2021-09-06 Completed University of 00:00:00 [facility] Remdesivir 2021-09-06 Completed University of 00:00:00 [facility] Remdesivir 2021-09-06 Completed University of 00:00:00 [facility] Remdesivir 2021-09-06 Completed University of 00:00:00 [facility] Remdesivir 2021-09-06 Completed University of 00:00:00 [facility] Remdesivir 2021-09-06 Completed University of 00:00:00 [facility] Remdesivir 2021-09-06 Completed University of 00:00:00 [facility] Remdesivir 2021-09-06 Completed University of 00:00:00 [facility] Remdesivir 2021-09-06 Completed University of 00:00:00 [facility] Remdesivir 2021-09-06 Completed University of 00:00:00 [facility] Remdesivir 2021-09-06 Completed University of 00:00:00 [facility] Remdesivir 2021-09-06 Completed University of 00:00:00 [facility] Remdesivir 2021-09-06 Completed University of 00:00:00 [facility] Remdesivir 2021-09-06 Completed University of 00:00:00 [facility] Remdesivir 2021-09-06 Completed University of 00:00:00 [facility] Remdesivir 2021-09-05 Completed [facility] 00:00:00 [facility] Remdesivir 2021-09-05 Completed University of 00:00:00 [facility] Remdesivir 2021-09-05 Completed University of 00:00:00 [facility] Remdesivir 2021-09-05 Completed University of 00:00:00 [facility] Remdesivir 2021-09-05 Completed University of 00:00:00 [facility] Remdesivir 2021-09-05 Completed University of 00:00:00 [facility] Remdesivir 2021-09-05 Completed University of 00:00:00 [facility] Remdesivir 2021-09-05 Completed University of 00:00:00 [facility] Remdesivir 2021-09-05 Completed University of 00:00:00 [facility] Remdesivir 2021-09-05 Completed University of 00:00:00 [facility] Remdesivir 2021-09-05 Completed University of 00:00:00 [facility] Remdesivir 2021-09-05 Completed University of 00:00:00 [facility] Remdesivir 2021-09-05 Completed University of 00:00:00 [facility] Remdesivir 2021-09-05 Completed University of 00:00:00 [facility] Remdesivir 2021-09-05 Completed University of 00:00:00 [facility] Remdesivir 2021-09-05 Completed University of 00:00:00 [facility] Remdesivir 2021-09-05 Completed University of 00:00:00 [facility] Remdesivir 2021-09-05 Completed University of 00:00:00 [facility] Remdesivir 2021-09-05 Completed University of 00:00:00 [facility] Remdesivir 2021-09-05 Completed University of 00:00:00 [facility] Remdesivir 2021-09-05 Completed University of 00:00:00 [facility] Remdesivir 2021-09-05 Completed University of 00:00:00 [facility] Remdesivir 2021-09-05 Completed University of 00:00:00 [facility] Remdesivir 2021-09-05 Completed University of 00:00:00 [facility] Remdesivir 2021-09-05 Completed University of 00:00:00 [facility] Remdesivir 2021-09-05 Completed University of 00:00:00 [facility] Remdesivir 2021-09-04 Completed [facility] 00:00:00 [facility] Remdesivir 2021-09-04 Completed University of 00:00:00 [facility] Remdesivir 2021-09-04 Completed University of 00:00:00 [facility] Remdesivir 2021-09-04 Completed University of 00:00:00 [facility] Remdesivir 2021-09-04 Completed University of 00:00:00 [facility] Remdesivir 2021-09-04 Completed University of 00:00:00 [facility] Remdesivir 2021-09-04 Completed University of 00:00:00 [facility] Remdesivir 2021-09-04 Completed University of 00:00:00 [facility] Remdesivir 2021-09-04 Completed University of 00:00:00 [facility] Remdesivir 2021-09-04 Completed University of 00:00:00 [facility] Remdesivir 2021-09-04 Completed University of 00:00:00 [facility] Remdesivir 2021-09-04 Completed University of 00:00:00 [facility] Remdesivir 2021-09-04 Completed University of 00:00:00 [facility] Remdesivir 2021-09-04 Completed University of 00:00:00 [facility] Remdesivir 2021-09-04 Completed University of 00:00:00 [facility] Remdesivir 2021-09-04 Completed University of 00:00:00 [facility] Remdesivir 2021-09-04 Completed University of 00:00:00 [facility] Remdesivir 2021-09-04 Completed University of 00:00:00 [facility] Remdesivir 2021-09-04 Completed University of 00:00:00 [facility] Remdesivir 2021-09-04 Completed University of 00:00:00 [facility] Remdesivir 2021-09-04 Completed University of 00:00:00 [facility] Remdesivir 2021-09-04 Completed University of 00:00:00 [facility] Remdesivir 2021-09-04 Completed University of 00:00:00 [facility] Remdesivir 2021-09-04 Completed University of 00:00:00 [facility] Remdesivir 2021-09-04 Completed University of 00:00:00 [place] [facility] Remdesivir 2021-09-04 Completed University of 00:00:00 [facility] Remdesivir 2021-09-03 Completed [facility] 00:00:00 [facility] Remdesivir 2021-09-03 Completed University of 00:00:00 [facility] Remdesivir 2021-09-03 Completed University of 00:00:00 [facility] Remdesivir 2021-09-03 Completed University of 00:00:00 [facility] Remdesivir 2021-09-03 Completed University of 00:00:00 [facility] Remdesivir 2021-09-03 Completed University of 00:00:00 [facility] Remdesivir 2021-09-03 Completed University of 00:00:00 [facility] Remdesivir 2021-09-03 Completed University of 00:00:00 [facility] Remdesivir 2021-09-03 Completed University of 00:00:00 [facility] Remdesivir 2021-09-03 Completed University of 00:00:00 [facility] Remdesivir 2021-09-03 Completed University of 00:00:00 [facility] Remdesivir 2021-09-03 Completed University of 00:00:00 [facility] Remdesivir 2021-09-03 Completed University of 00:00:00 [facility] Remdesivir 2021-09-03 Completed University of 00:00:00 [facility] Remdesivir 2021-09-03 Completed University of 00:00:00 [facility] Remdesivir 2021-09-03 Completed University of 00:00:00 [facility] Remdesivir 2021-09-03 Completed University of 00:00:00 [facility] Remdesivir 2021-09-03 Completed University of 00:00:00 [facility] Remdesivir 2021-09-03 Completed University of 00:00:00 [facility] Remdesivir 2021-09-03 Completed University of 00:00:00 [facility] Remdesivir 2021-09-03 Completed University of 00:00:00 [facility] Remdesivir 2021-09-03 Completed University of 00:00:00 [facility] Remdesivir 2021-09-03 Completed University of 00:00:00 [facility] Remdesivir 2021-09-03 Completed University of 00:00:00 [facility] Remdesivir 2021-09-03 Completed University of 00:00:00 [facility] Remdesivir 2021-09-03 Completed University of 00:00:00 [facility] Remdesivir 2021-09-02 Completed [facility] 00:00:00 [facility] Remdesivir 2021-09-02 Completed University of 00:00:00 [facility] Remdesivir 2021-09-02 Completed University of 00:00:00 [facility] Remdesivir 2021-09-02 Completed University of 00:00:00 [facility] Remdesivir 2021-09-02 Completed University of 00:00:00 [facility] Remdesivir 2021-09-02 Completed University of 00:00:00 [facility] Remdesivir 2021-09-02 Completed University of 00:00:00 [facility] Remdesivir 2021-09-02 Completed University of 00:00:00 [facility] Remdesivir 2021-09-02 Completed University of 00:00:00 [facility] Remdesivir 2021-09-02 Completed University of 00:00:00 [facility] Remdesivir 2021-09-02 Completed University of 00:00:00 [facility] Remdesivir 2021-09-02 Completed University of 00:00:00 [facility] Remdesivir 2021-09-02 Completed University of 00:00:00 [facility] Remdesivir 2021-09-02 Completed University of 00:00:00 [facility] Remdesivir 2021-09-02 Completed University of 00:00:00 [facility] Remdesivir 2021-09-02 Completed University of 00:00:00 [facility] Remdesivir 2021-09-02 Completed University of 00:00:00 [facility] Remdesivir 2021-09-02 Completed University of 00:00:00 [facility] Remdesivir 2021-09-02 Completed University of 00:00:00 [facility] Remdesivir 2021-09-02 Completed University of 00:00:00 [facility] Remdesivir 2021-09-02 Completed University of 00:00:00 [facility] Remdesivir 2021-09-02 Completed University of 00:00:00 [facility] Remdesivir 2021-09-02 Completed University of 00:00:00 [facility] Remdesivir 2021-09-02 Completed University of 00:00:00 [facility] Remdesivir 2021-09-02 Completed University of 00:00:00 [facility] Remdesivir 2021-09-02 Completed University of 00:00:00 [facility] PFIZER COVID-19 MRNA 2021-07-20 Completed [facility] VACCINATION 00:00:00 Hospital Pneumococcal 2021-07-20 Completed [facility] Conjugate 00:00:00 Hospital Zoster 2021-07-20 Completed [facility] 00:[facility]:00 [facility] PFIZER COVID-19 MRNA 2021-06-29 Completed [facility] VACCINATION 00:00:00 Hospital PFIZER READY TO USE 2021-06-29 Completed [facility] COVID-19 MRNA 00:00:00 Hospital VACCINATION PFIZER COVID-19 MRNA 2021-06-29 Completed [facility] VACCINATION 00:00:00 Hospital Influenza, 2019-05-29 Completed [facility] Unspecified 00:00:00 Hospital Influenza Virus 2019-05-29 Completed Universit y [...] y of Vaccine Quad .5 mL 00:00:00 [place] [facility] 6+ MO Branch Influenza Virus 2019-05-29 Completed Universit y of Vaccine Quad .5 mL 00:00:00 [place] [facility] 6+ MO Branch Influenza Virus 2019-05-29 Completed Universit y of Vaccine Quad .5 mL 00:00:00 [place] [facility] 6+ MO Branch Influenza Virus 2019-05-29 Completed Universit y of Vaccine Quad .5 mL 00:00:00 [place] [facility] 6+ MO Branch Influenza Virus 2019-05-29 Completed Universit y of Vaccine Quad .5 mL 00:00:00 [facility] IM 6+ MO Branch Influenza Virus 2019-05-29 Completed Universit y of Vaccine Quad .5 mL 00:00:00 [facility] IM 6+ MO Branch Influenza Virus 2019-05-29 Completed Universit y of Vaccine Quad .5 mL 00:00:00 [facility] 6+ MO Branch (FLUZONE/FLULAVAL/FL UARIX) Pneumococcal 2017-05-22 Completed [facility] Polysaccharide 00:00:00 [facility] Pneumococcal 2017-05-22 Completed [facility] Polysaccharide 00:00:00 [facility] pneumococcal, pneumococcal, 2016-02-06 Completed [facility] unspecified unspecified 00:00:00 formulation formulation pneumococcal, pneumococcal, 2016-02-06 Completed [facility] M edical unspecified unspecified 00:00:00 formulation formulation Pneumococcal, 2016-02-06 Completed [facility] Unspecified 00:00:00 Hospital Pneumococcal, 2016-02-06 Completed [facility] Unspecified 00:00:00 [facility] Pneumococcal 2014-11-04 Completed [facility] Conjugate 13-[facility]ent 00:00:00 [facility] Pneumococcal 2014-11-04 Completed [facility] Conjugate 13-[facility] 00:00:00 [facility] Pneumococcal 13 2014-11-04 Completed Universit y of [...] dical (Prevnar 13) Branch Pneumococcal 2014-11-04 Completed [place] o f Conjugate 13-Valent 00:00:00 [facility] Pneumococcal 2014-11-04 Completed [place] o f Conjugate 13-Valent 00:00:00 [facility] influenza, influenza, Unknown Completed [facility] injectable, injectable, quadrivalent, quadrivalent, preservative free - preservative free 0.5 mL vial(s) - 0.5 mL vial(s) pneumococcal pneumococcal Unknown [facility] PCV 13 conjugate PCV 13 influenza, influenza, Unknown Completed [facility] injectable, injectable, quadrivalent, quadrivalent, preservative free - preservative free 0.5 mL vial(s) - 0.5 mL vial(s) pneumococcal pneumococcal Unknown Completed [facility] ical conjugate PCV 13 conjugate PCV 13 Influenza Virus Unknown Completed Universit y of Vaccine Quad .5 mL [facility] 6+ MO Branch (FLUZONE/FLULAVAL/FL UARIX) Pneumococcal 13 Unknown Completed Universit y of Conjugate, PCV13 [facility] dical (Prevnar 13) [place] Remdesivir Unknown Completed [facility] Remdesivir Unknown Completed [facility] Remdesivir Unknown Completed [facility] Remdesivir Unknown Completed [facility] Remdesivir Unknown Completed [facility] Influenza Virus Unknown Completed Universit y of Vaccine Quad .5 mL [facility] 6+ MO Branch (FLUZONE/FLULAVAL/FL UARIX) Pneumococcal 13 Unknown Completed Universit y of Conjugate, PCV13 [facility] dical (Prevnar 13) [place] Influenza Virus Unknown Completed Universit y of Vaccine Quad .5 mL [facility] 6+ MO Branch (FLUZONE/FLULAVAL/FL UARIX) Pneumococcal 13 Unknown Completed Universit y of Conjugate, PCV13 [facility] dical (Prevnar 13) Branch Influenza Virus Unknown Completed Universit y of Vaccine Quad .5 mL [facility] 6+ MO Branch (FLUZONE/FLULAVAL/FL UARIX) Pneumococcal 13 Unknown Completed Universit y of Conjugate, PCV13 [facility] dical (Prevnar 13) [place] Remdesivir Unknown Completed [facility] Remdesivir Unknown Completed [facility] Remdesivir Unknown Completed [facility] Remdesivir Unknown Completed [facility] Remdesivir Unknown Completed [facility] Pneumococcal Unknown Completed [facility] Conjugate [facility] Pneumococcal, Unknown Completed [facility] Pneumococcal Unknown Completed [facility] Polysaccharide [facility] PFIZER COVID-19 MRNA Unknown Completed [facility] VACCINATION [facility] Remdesivir Unknown Com[facility] Remdesivir Unknown Com[facility] Remdesivir Unknown Com[facility] Remdesivir Unknown Com[facility] Remdesivir Unknown Com[facility] PFIZER READY TO USE Unknown Completed [facility] COVID-19 MRNA Hospital VACCINATION PFIZER COVID-19 MRNA Unknown Completed [facility] VACCINATION Hospital Influenza, Unknown Completed [facility] PFIZER >12 YR Unknown Completed [facility] COVID-19 MRNA Hospital BIVALENT VACCINATION Pneumococcal Unknown Completed [facility] Zoster Unknown Com[facility] Zoster Unknown Com[facility] Pneumococcal Unknown Completed [place] o f Conjugate 13-[facility] [place] [facility] [place] [facility] Vital Signs Vital Name Observation Time Observation Value Comments Source Systolic blood 2022-11-06 08:00:00 112 mm[Hg] [facility]iver [facility]ity of [facility] Diastolic blood 2022-11-06 08:00:00 59 mm[Hg] Unive rsity [facility] Heart rate 2022-11-06 08:00:00 105 /min [facility] Respiratory rate 2022-11-06 08:00:00 19 /min [facility] Oxygen saturation in 2022-11-06 08:00:00 100 /min [facility] Arterial blood by [facility] Pulse oximetry Branch Body temperature 2022-11-06 04:27:00 37.72 Laure [facility] Body height 2022-11-06 04:27:00 157.5 cm [facility] Body weight 2022-11-06 04:27:00 51.71 kg [facility] BMI 2022-11-06 04:27:00 20.85 kg/m2 [facility] Systolic blood 2022-03-17 23:45:00 110 mm[Hg] Univer sity of pressure [facility] Diastolic blood 2022-03-17 23:45:00 66 mm[Hg] Unive rsity of [facility] Heart rate 2022-03-17 23:45:00 81 /min [facility] Respiratory rate 2022-03-17 23:45:00 16 /min Univ ersity [facility] Oxygen saturation in 2022-03-17 23:45:00 98 /min University of Arterial blood by [place] [employer] [facility] Pulse oximetry Branch Body temperature 2022-03-17 21:07:00 36.67 Laure Univ ers[facility] [place] [facility] Body height 2022-03-17 21:07:00 157.5 cm [facility] [place] [facility] Body weight 2022-03-17 21:07:00 55.339 kg [facility] BMI 2022-03-17 21:07:00 22.31 kg/m2 [facility] Systolic blood 2022-03-04 10:21:00 126 mm[Hg] Univer sity of pressure [facility] Diastolic blood 2022-03-04 10:21:00 59 mm[Hg] Unive rsity of pressure [facility] Heart rate 2022-03-04 10:21:00 97 /min [facility] [place] [facility] Body temperature 2022-03-04 10:21:00 36.94 Laure [facility] [place] [facility] Respiratory rate 2022-03-04 10:21:00 18 /min [facility] Oxygen saturation in 2022-03-04 10:21:00 100 /min University of Arterial blood by [facility] Pulse oximetry Branch Body height 2022-03-04 06:12:00 162.6 cm [facility] [place] [facility] Body weight 2022-03-04 06:12:00 57.153 kg [facility] [place] [facility] BMI 2022-03-04 06:12:00 21.63 kg/m2 [facility] Heart rate 2022-03-01 21:45:00 80 /min [facility] Respiratory rate 2022-03-01 21:45:00 17 /min [facility] Oxygen saturation in 2022-03-01 21:45:00 100 /min University of Arterial blood by [facility] Pulse oximetry Branch Systolic blood 2022-03-01 21:00:00 107 mm[Hg] Univer sity of pressure [facility] Diastolic blood 2022-03-01 21:00:00 70 mm[Hg] Unive rsity of pressure [facility] Body temperature 2022-03-01 20:23:00 37 Laure [facility] Body height 2022-03-01 20:23:00 157.5 cm [facility] Body weight 2022-03-01 20:23:00 57.153 kg [facility] BMI 2022-03-01 20:23:00 23.05 kg/m2 [facility] Systolic blood 2021-12-30 13:51:00 117 mm[Hg] [facility] Diastolic blood 2021-12-30 13:51:00 69 mm[Hg] [facility] Heart rate 2021-12-30 13:51:00 82 /min [facility] Body temperature 2021-12-30 13:51:00 36.78 Laure [facility] Respiratory rate 2021-12-30 13:51:00 18 /min [facility] Oxygen saturation in 2021-12-30 13:51:00 98 /min [facility] Arterial blood by [facility] Pulse oximetry Branch Body weight 2021-12-30 09:42:00 59.467 kg [facility] BMI 2021-12-30 09:42:00 23.98 kg/m2 [facility] Body height 2021-12-28 00:00:00 157.5 cm [facility] Heart rate 2021-12-04 23:00:00 80 /min [facility] Oxygen saturation in 2021-12-04 23:00:00 99 /min [facility] Arterial blood by [facility] Pulse oximetry Branch Respiratory rate 2021-12-04 20:31:00 22 /min [facility] Systolic blood 2021-12-04 17:00:00 114 mm[Hg] [facility] Diastolic blood 2021-12-04 17:00:00 70 mm[Hg] [facility] Body temperature 2021-12-04 17:00:00 36.39 Laure [facility] Body weight 2021-12-04 09:00:00 56.972 kg [facility] BMI 2021-12-04 09:00:00 22.97 kg/m2 [facility] Body height 2021-12-04 00:30:00 157.5 cm [facility] Systolic blood 2021-11-26 20:00:00 102 mm[Hg] [facility] Diastolic blood 2021-11-26 20:00:00 57 mm[Hg] [facility] Heart rate 2021-11-26 20:00:00 62 /min [facility] Body temperature 2021-11-26 20:00:00 36.39 Laure [facility] Respiratory rate 2021-11-26 20:00:00 18 /min [facility] Oxygen saturation in 2021-11-26 20:00:00 97 /min [facility] by [place] [employer] [facility] Pulse oximetry [facility] Body weight 2021-11-26 08:16:00 56.972 kg [facility] BMI 2021-11-26 08:16:00 22.97 kg/m2 [facility] Body height 2021-11-24 08:00:00 157.5 cm [facility] Systolic blood 2021-11-12 19:00:00 106 mm[Hg] [facility] Diastolic blood 2021-11-12 19:00:00 61 mm[Hg] [facility] Heart rate 2021-11-12 19:00:00 70 /min [facility] Respiratory rate 2021-11-12 19:00:00 15 /min [facility] Oxygen saturation in 2021-11-12 19:00:00 100 /min [facility] [place] [employer] [facility] P[facility] Body temperature 2021-11-12 17:16:00 37.61 Laure [facility] Body height 2021-11-12 17:16:00 157.5 cm [facility] Body weight 2021-11-12 17:16:00 58.968 kg [facility] BMI 2021-11-12 17:16:00 23.78 kg/m2 [facility] Respiratory rate 2021-09-14 19:53:00 18 /min [facility] Oxygen saturation in 2021-09-14 19:53:00 100 /min [facility]terial blood by [facility] kandis Pulse oximetry Branch Systolic blood 2021-09-14 19:10:00 104 mm[Hg] [facility] Diastolic blood 2021-09-14 19:10:00 64 mm[Hg] [facility] Heart rate 2021-09-14 19:10:00 75 /min [facility] Body temperature 2021-09-14 17:16:00 37.61 Laure [facility] Body weight 2021-09-14 17:16:00 57.607 kg [facility] BMI 2021-09-14 17:16:00 23.23 kg/m2 [facility] Respiratory rate 2021-09-06 18:36:00 16 /min [facility] Oxygen saturation in 2021-09-06 18:36:00 96 /min [facility] blood by [facility] Pulse oximetry Branch Systolic blood 2021-09-06 16:24:00 103 mm[Hg] [facility] Diastolic blood 2021-09-06 16:24:00 55 mm[Hg] [facility] Heart rate 2021-09-06 16:24:00 63 /min [facility] Body temperature 2021-09-06 16:24:00 35.89 Laure [facility] Body weight 2021-09-06 08:42:00 59.9 kg [facility] BMI 2021-09-06 08:42:00 24.15 kg/m2 [facility] Body height 2021-09-02 05:53:00 157.5 cm [facility] Body temperature 2021-04-16 22:26:00 36.11 Laure [facility] Systolic blood 2021-04-16 21:33:00 127 mm[Hg] [facility] Diastolic blood 2021-04-16 21:33:00 68 mm[Hg] [facility]ive [facility]ity of [facility] Heart rate 2021-04-16 21:33:00 69 /min [facility] Respiratory rate 2021-04-16 21:33:00 18 /min [facility] Body height 2021-04-16 21:33:00 157.5 cm [facility] Body weight 2021-04-16 21:33:00 54.432 kg [facility] BMI 2021-04-16 21:33:00 21.95 kg/m2 Univers[facility] ty [facility] Oxygen saturation in 2021-04-16 21:33:00 98 /min [facility] blood by [facility] Pulse oximetry Branch Systolic blood 2021-03-15 17:40:00 113 mm[Hg] [facility] Diastolic blood 2021-03-15 17:40:00 68 mm[Hg] [facility]ive [facility]ity of [facility] Heart rate 2021-03-15 17:40:00 67 /min Universi ty [facility] Body temperature 2021-03-15 17:40:00 36.39 Laure [facility] Res[facility] rate 2021-03-15 17:40:00 16 /min Univ [facility] Oxygen saturation in 2021-03-15 17:40:00 100 /min [facility] Arterial blood by [facility] Pulse oximetry Branch Body weight 2021-03-15 09:39:00 56.427 kg [facility] BMI 2021-03-15 09:39:00 22.75 kg/m2 [facility] Height 2020-06-03 00:00:00 62 [in_i] Yvonne valverde BMI (Body Mass 2020-06-03 00:00:00 22.1 kg/m2 [facility]) Body Weight 2020-06-03 00:00:00 1936 [oz_av] Yvonne valverde Heart rate 2022-09-20 17:19:00 77 /min [facility] Respiratory rate 2022-09-20 17:19:00 22 /min [facility] Oxygen saturation in 2022-09-20 17:19:00 100 /min [facility] Arterial blood by Pulse oximetry Systolic blood 2022-09-20 16:17:19 113 mm[Hg] Method ist Hospital pressure Diastolic blood 2022-09-20 16:17:19 69 mm[facility]Hg] [facility] Body temperature 2022-09-20 16:17:19 37.5 Laure [facility] Body height 2022-09-05 13:08:00 157.5 cm [facility] Body weight 2022-09-05 13:08:00 53.071 kg [facility] BMI 2022-09-05 13:08:00 21.40 kg/m2 [facility] Systolic blood 2022-06-22 16:45:00 127 mm[Hg] Method is Hospital pressure Diastolic blood 2022-06-22 16:45:00 60 mm[Hg] [facility] pressure Heart rate 2022-06-22 16:45:00 86 /min [facility] Body temperature 2022-06-22 16:45:00 36.17 Laure [facility] Respiratory rate 2022-06-22 16:45:00 18 /min [facility] Body height 2022-06-22 16:45:00 157.5 cm [facility] Body weight 2022-06-22 16:45:00 53.388 kg [facility] BMI 2022-06-22 16:45:00 21.53 kg/m2 [facility] Oxygen saturation in 2022-06-22 16:45:00 99 /min [facility] Arterial blood by Pulse oximetry Systolic blood 2021-06-23 17:47:00 124 mm[Hg] Method [facility] pressure Diastolic blood 2021-06-23 17:47:00 58 mm[Hg] [facility] pressure Heart rate 2021-06-23 17:47:00 69 /min [facility] Body temperature 2021-06-23 17:47:00 35.72 Laure [facility] Respiratory rate 2021-06-23 17:47:00 19 /min [facility] Body weight 2021-06-23 17:47:00 57.698 kg [facility] BMI 2021-06-23 17:47:00 23.27 kg/m2 [facility] Oxygen saturation in 2021-06-23 17:47:00 99 /min [facility] Arterial blood by Pulse oximetry Body height 2021-06-17 18:43:00 157.5 cm Diego t [facility] Procedures Procedure Date / Time Performing Source Performed Clinician XR CHEST 1 VW 2022-11-06 Porsche Moore [facility] 06:33:41 [facility] HB ECG ROUTINE & RHYTHM STRIP 2022-11-06 Porsche Moore [facility] 05:41:43 [facility] LIPASE 2022-11-06 Porsche Moore [facility] 05:35:00 [facility] MAGNESIUM 2022-11-06 Porsche Moore [facility] 05:35:00 [facility] COMP. METABOLIC PANEL (52698) 2022-11-06 Porsche Moore [facility] 05:35:00 [facility] CBC WITH DIFF 2022-11-06 Porsche Moore [facility] 05:35:00 [facility] URINALYSIS 2022-11-06 Porsche Moore [facility] 05:35:00 [facility] AC PANEL 21 + LACTIC ACID 2022-11-06 Porsche Moore Uni versity of 05:35:00 [facility] NOTICE OF PRIVACY PRACTICES 2022-11-06 Doctor Unassvioletta, [facility] 04:26:09 [facility] CONSENT/REFUSAL FOR DIAGNOSIS AND 2022-11-06 Doctor Zafar powell, [facility] 04:25:01 [facility] MAGNESIUM LEVEL 2022-09-20 Aftab Murphy 11:46:00 Hospital PHOSPHORUS LEVEL 2022-09-20 Aftab Murphy 11:46:00 [facility] BASIC METABOLIC PANEL 2022-09-20 Aftab Murphy 11:46:00 Hospital CBC WITH PLATELET AND DIFFERENTIAL 2022-09-20 Aftab Murphy 11:46:00 Hospital ESTIMATED GFR 2022-09-20 Aftab Murphy 11:46:00 Hospital XR CHEST 1 VW PORTABLE 2022-09-19 Demetrius Jaquez 21:05:00 [facility] RESPIRATORY CULTURE 2022-09-19 Wiliam Emanuel 19:30:00 [facility] AFB CULTURE 2022-09-19 Wiliam Emanuel 19:30:00 [facility] FUNGUS CULTURE 2022-09-19 Wiliam Emanuel 19:30:00 [facility] GRAM STAIN 2022-09-19 Wiliam Emanuel 19:30:00 [facility] RESPIRATORY PATHOGEN PANEL WITH 2022-09-19 Wiliam Emanuel COVID-19 RT-PCR 19:30:00 [facility] AFB STAIN 2022-09-19 Wiliam Emanuel 19:30:00 [facility] CYTOLOGY (NON-GYNECOLOGICAL) 2022-09-19 Wiliam Emanuel hodist REQUEST 19:30:00 [facility] BRONCHOSCOPY 2022-09-19 Alpesh Granados 19:14:00 Hospital COVID-19 QUALITATIVE RT-PCR 2022-09-19 Wiliam Emanuel 19:00:00 [facility] BAL CELL COUNT AND DIFFERENTIAL 2022-09-19 Wiliam Emanuel 19:00:00 [facility] AMYLASE LEVEL, MISC FLUID 2022-09-19 Wiliam Emanuel ist 19:00:00 [facility] MISCELLANEOUS REFERRAL TEST 2022-09-19 Wiliam Emanuel 19:00:00 [facility] CYTOMEGALOVIRUS BY PCR 2022-09-19 Wiliam Emanuel 19:00:00 [facility] HERPES SIMPLEX VIRUS BY PCR 2022-09-19 Wiliam Emanuel 19:00:00 [facility] PNEUMOCYSTIS CARINII QPCR - 2022-09-19 Wiliam Emanuel VIRACOR 19:00:00 [facility] ECG 12-LEAD 2022-09-19 Janell Reed 01:12:05 [facility] MAGNESIUM LEVEL 2022-09-18 Aftab Murphy [facility] 11:33:00 [facility] PHOSPHORUS LEVEL 2022-09-18 Aftab Murphy [facility] 11:33:00 Hospital BASIC METABOLIC PANEL 2022-09-18 Aftab Murphy [facility] 11:33:00 Hospital CBC WITH PLATELET AND DIFFERENTIAL 2022-09-18 Aftab Murphy [facility] 11:33:00 Hospital CORTISOL LEVEL, AM 2022-09-18 Jenae Wiliam Erickson 11:33:00 [facility] ESTIMATED GFR 2022-09-18 Aftab Murphyist 11:33:[address] CHEST WO CONTRAST ABDOMEN WO 2022-09-16 Janell Reed CONTRAST PELVIS WO CONTRAST 19:23:43 [facility] ital XR ABDOMEN 1 VW PORTABLE 2022-09-[address] 20:28:48 [facility] MAGNESIUM LEVEL 2022-09-15 Aftab Murphy [facility] 12:08:00 Hospital PHOSPHORUS LEVEL 2022-09-15 Aftab Murphy [facility] 12:08:00 Hospital BASIC METABOLIC PANEL 2022-09-15 Aftab Murphyist 12:08:00 [facility] CBC WITH PLATELET AND DIFFERENTIAL 2022-09-15 Aftab Murphy [facility] 12:08:00 Hospital ESTIMATED GFR 2022-09-15 Aftab Murphy [facility] 12:08:00 Hospital TB T-SPOT 2022-09-14 Janell Reed 16:23:00 [facility] MISCELLANEOUS REFERRAL TEST 2022-09-14 Janell Reed oddane 16:23:00 [facility] CRYPTOCOCCAL ANTIGEN SCREEN 2022-09-14 Brianna Leroy Martin reddy 12:10:00 [facility] ASPERGILLUS AB BY CF, SERUM 2022-09-14 Janell Reed Meth oddane 12:09:00 [facility] COCCIDIOIDES ANTIBODY, IGG/IGM BY 2022-09-14 Janell Reed CARMEN 12:09:00 [facility] CBC WITH PLATELET AND DIFFERENTIAL 2022-09-14 Kait Almazan 12:09:00 [facility] BASIC METABOLIC PANEL 2022-09-14 Kait Almazan 12:09:00 [facility] ESTIMATED GFR 2022-09-14 Aftab Murphy 12:09:00 Hospital EXTERNAL PROVIDER - ADC CARDIOLOGY 2022-09-14 Doctor Candy reaves, [facility] 05:01:00 [facility] CT ANGIOGRAM ABDOMEN PELVIS W AND 2022-09-12 Abughazaleh, [facility] OR WO CONTRAST 23:57:27 [facility] XR ABDOMEN 1 VW PORTABLE 2022-09-[address] 22:29:42 [facility] ECG 12-LEAD 2022-09-12 Janell Reedist 00:20:10 [facility] DURABLE MEDICAL EQUIPMENT 2022-09-11 Alpesh Granados Method ist 16:41:00 Hospital BASIC METABOLIC PANEL 2022-09-11 Aftab Murphy [facility] 15:14:00 Hospital CBC WITH PLATELET AND DIFFERENTIAL 2022-09-11 Aftab Murphy [facility] 15:14:00 Hospital HEPATIC FUNCTION PANEL 2022-09-11 Aftab Murphy [facility] 15:14:00 Hospital MAGNESIUM LEVEL 2022-09-11 Aftab Murphy [facility] 15:14:00 Hospital ESTIMATED GFR 2022-09-11 Aftab Murphy [facility] 15:14:00 [facility] XR ABDOMEN 1 VW PORTABLE 2022-09-09 Martin Zarate 21:22:04 [facility] VENOUS BLOOD GAS 2022-09-09 Janelle Hahn 10:24:00 Hospital MRI CHOLANGIOGRAM WO CONTRAST 2022-09-08 Me Tha thodist 21:00:00 [facility] VENOUS BLOOD GAS 2022-09-08 Janelle Hahn 09:16:00 Hospital CBC WITH PLATELET AND DIFFERENTIAL 2022-09-07 Talisha Ortega 09:15:00 Hospital BASIC METABOLIC PANEL 2022-09-07 Talisha Ortega 09:15:00 Hospital MAGNESIUM LEVEL 2022-09-07 Talisha Ortega 09:15:00 Hospital PHOSPHORUS LEVEL 2022-09-07 Talisha Ortega 09:15:00 Hospital ESTIMATED GFR 2022-09-07 Talisha Ortega 09:15:00 Hospital ESTIMATED GFR 2022-09-06 Talisha Ortega 09:40:00 Hospital BASIC METABOLIC PANEL 2022-09-05 Ramon Dash 17:46:00 Hospital MAGNESIUM LEVEL 2022-09-05 Ramon Dash 17:46:00 Hospital ESTIMATED GFR 2022-09-05 Ramon Dash 17:46:00 Hospital SURGICAL PATHOLOGY REQUEST 2022-09-05 Ramon Dash [facility] 16:33:00 Hospital ESOPHAGOGASTRODUODENOSCOPY (EGD) 2022-09-05 Kait Loving 13:49:00 [facility] CBC WITH PLATELET AND DIFFERENTIAL 2022-09-05 Talisha Ortega 10:12:00 Hospital BASIC METABOLIC PANEL 2022-09-05 Talisha Ortega 10:12:00 Hospital MAGNESIUM LEVEL 2022-09-05 Talisha Ortega 10:12:00 Hospital PHOSPHORUS LEVEL 2022-09-05 Talisha Ortega 10:12:00 Hospital ESTIMATED GFR 2022-09-05 Talisha Ortega 10:12:00 Hospital OCCULT BLOOD, STOOL 2022-09-04 Ramon Dash 13:39:00 Hospital CBC WITH PLATELET AND DIFFERENTIAL 2022-09-04 Talisha Ortega 09:33:00 Hospital BASIC METABOLIC PANEL 2022-09-04 Talisha Ortega 09:33:00 Hospital MAGNESIUM LEVEL 2022-09-04 JordanTalisha 09:33:00 Hospital PHOSPHORUS LEVEL 2022-09-04 Jordan Talishaefraín Erickson 09:33:00 Hospital ESTIMATED GFR 2022-09-04 Talisha Ortega 09:33:00 Hospital CBC WITH PLATELET AND DIFFERENTIAL 2022-09-03 Talisha Ortega 09:42:00 Hospital BASIC METABOLIC PANEL 2022-09-03 Talisha Ortega 09:42:00 Hospital MAGNESIUM LEVEL 2022-09-03 Jordan Talisha [facility] 09:42:00 Hospital PHOSPHORUS LEVEL 2022-09-03 Jordan Talisha [facility] 09:42:00 Hospital ESTIMATED GFR 2022-09-03 JordanTalisha 09:42:00 Hospital XR CHEST 1 VW PORTABLE 2022-09-02 Gustavo Broderick 15:26:46 Hospital SEDIMENTATION RATE 2022-09-02 Gill Schaefer 10:53:00 [facility] HIV 1/2 ANTIGEN/ANTIBODY, FOURTH 2022-09-02 Gill Schaefer GENERATION, WITH REFLEXES 10:52:00 [facility]R 2022-09-02 Gill Schaefer ist 10:51:00 [facility] PARTIAL THROMBOPLASTIN TIME (PTT) 2022-09-02 Gill Schaefer 10:51:00 [facility] HEMOGLOBIN A1C 2022-09-02 Gill Schaefer 10:50:00 [facility] FOLATE LEVEL 2022-09-02 Gill Schaefer 10:50:00 [facility] VITAMIN B12 LEVEL 2022-09-02 Gill Schaefer 10:50:00 [facility] SYPHILIS TREPONEMA SCREEN WITH RPR 2022-09-02 Lawrence Schaefer CONFIRMATION (REVERSE ALGORITHM) 10:50:00 [facility] LIPID PANEL 2022-09-02 Gill Schaefer 10:49:00 [facility] HOMOCYSTINE, PLASMA 2022-09-02 Gill Schaefer 10:49:00 [facility] THYROID STIMULATING HORMONE 2022-09-02 Gill Schaefer Meth odist 10:49:00 [facility] T4, FREE 2022-09-02 Gill Schaefer 10:49:00 [facility] C-REACTIVE PROTEIN 2022-09-02 Gill Schaefer 10:49:00 [facility] CBC WITH PLATELET AND DIFFERENTIAL 2022-09-02 Talisha Ortega 10:49:00 [facility] BASIC METABOLIC PANEL 2022-09-02 Talisha Ortega 10:49:00 Hospital MAGNESIUM LEVEL 2022-09-02 Talisha Ortega 10:49:00 Hospital PHOSPHORUS LEVEL 2022-09-02 Talisha Ortega 10:49:00 Hospital HELICOBACTER PYLORI ABS 2022-09-02 Alpesh Granadosis t 10:49:00 Hospital ESTIMATED GFR 2022-09-02 Tailsha Ortega 10:49:00 Hospital US GALLBLADDER 2022-09-02 David Alaniz 04:40:[address] [facility] CT ANGIOGRAM HEAD W WO CONTRAST 2022-09-02 Gill Schaefer 03:39:26 [facility] CT ANGIOGRAM NECK W WO CONTRAST 2022-09-02 Gill Schaeferist 03:39:[address] [facility] CT HEAD WO CONTRAST 2022-09-02 Gustavo Broderick 03:31:15 Hospital CBC WITH PLATELET AND DIFFERENTIAL 2022-09-02 Gustavo Broderickist 03:10:00 Hospital COMPREHENSIVE METABOLIC PANEL 2022-09-02 Gustavo Broderick thodist 03:10:00 Hospital PARTIAL THROMBOPLASTIN TIME (PTT) 2022-09-02 Gustavo Broderick 03:10:00 Hospital PROTHROMBIN TIME WITH INR 2022-09-02 Gustavo Broderick ist 03:10:00 Hospital NT-PROBNP 2022-09-02 Gustavo Broderick 03:10:00 Hospital LACTIC ACID LEVEL 2022-09-02 Gustavo Broderick 03:10:00 Hospital MAGNESIUM LEVEL 2022-09-02 Gustavo Broderick 03:10:00 Hospital PHOSPHORUS LEVEL 2022-09-02 Gustavo Broderick 03:10:00 Hospital IONIZED CALCIUM 2022-09-02 Gustavo Broderick 03:10:00 Hospital ESTIMATED GFR 2022-09-02 Gustavo Broderick 03:10:00 Hospital ARTERIAL BLOOD GAS 2022-09-02 Gustavo Broderick 03:06:00 Hospital COMPREHENSIVE METABOLIC PANEL 2022-09-02 Demi Cuello 03:05:00 Hospital MAGNESIUM LEVEL 2022-09-02 Demi Cuello 03:05:00 Hospital PHOSPHORUS LEVEL 2022-09-02 Demi Cuello 03:05:00 Hospital NT-PROBNP 2022-09-02 Demi Cuello 03:05:00 Hospital ESTIMATED GFR 2022-09-02 Demi Cuello 03:05:00 Hospital ECG 12-LEAD 2022-09-02 Gustaov Broderickist 03:04:00 Hospital POC GLUCOSE 2022-09-02 Demi Cuello 02:53:00 Hospital LACTIC ACID LEVEL 2022-09-01 Kait Benjamin 15:31:00 [facility] LDH 2022-09-01 Kait Benjamin 15:31:00 [facility]CITONIN [facility]09-[facility] 15:31[facility]00 [facility] LIPID PANEL 2022-09-01 Jordan, Talisha Erickson 14:43:00 Hospital CBC WITH PLATELET AND DIFFERENTIAL 2022-09-01 Jordan, Talisha Erickson 09:40:00 Hospital BASIC METABOLIC PANEL 2022-09-01 Jordan, Talisha Erickson 09:40:00 Hospital MAGNESIUM LEVEL 2022-09-01 Jordan, Talisha [facility] 09:40:00 Hospital PHOSPHORUS LEVEL 2022-09-01 Jordan, Talisha Erickson 09:40:00 Hospital ESTIMATED GFR 2022-09-01 Jordan, Talisha Erickson 09:40:00 Hospital ECG 12-LEAD 2022-09-01 Jordan, Talisha Erickson 07:49:38 Hospital BLOOD CULTURE, AEROBIC & ANAEROBIC 2022-09-01 Jordan, Talisha Erickson 04:10:00 Hospital CBC WITH PLATELET AND DIFFERENTIAL 2022-09-01 Geovany Castaneda 04:10:00 [facility] COMPREHENSIVE METABOLIC PANEL 2022-09-01 Ashok Castaneda ethodist 04:10:00 [facility] ESTIMATED GFR 2022-09-01 Ashok Castaneda 04:10:00 [facility] TOTAL IRON BINDING CAPACITY 2022-09-01 Talisha Ortega 04:10:00 Hospital VITAMIN B12 LEVEL 2022-09-01 Talisha Ortega 04:10:00 Hospital RETICULOCYTE COUNT 2022-09-01 Jordan, Talisha [facility] 04:10:00 Hospital FOLATE LEVEL 2022-09-01 Jordan, Talishaefraín Erickson 04:10:00 Hospital FERRITIN LEVEL 2022-09-01 Jordan, Talisha Erickson 04:10:00 Hospital HAPTOGLOBIN 2022-09-01 Jordan, Talisha [facility] 04:10:00 Hospital AMYLASE LEVEL 2022-09-01 Jordan, Talisha [facility] 04:10:00 Hospital LDH 2022-09-01 Jordan, Talisha Erickson 04:10:00 Hospital LIPASE LEVEL 2022-09-01 Talisha Ortega 04:10:00 Hospital PHOSPHORUS LEVEL 2022-09-01 Talisha Ortega 04:10:00 Hospital MAGNESIUM LEVEL 2022-09-01 Talisha Ortega 04:10:[address] RENAL STONE PROTOCOL 2022-08-31 Lai Gregg Metho dist 23:30:[address] CHEST WO CONTRAST 2022-08-31 Nawaf Collier 16:55:22 Hospital CBC WITH PLATELET AND DIFFERENTIAL 2022-08-31 Nawaf Collier 15:35:00 Hospital COMPREHENSIVE METABOLIC PANEL 2022-08-31 Nawaf Collier ethodist 15:35:00 Hospital ALCOHOL LEVEL, BLOOD 2022-08-31 Nawaf Collier 15:35:00 Hospital NICOTINE AND COTININE, SERUM 2022-08-31 Nawaf Collier Oh thodist 15:35:00 Hospital URINE DRUGS OF ABUSE SCREEN 2022-08-31 Nawaf Collier Met hodist 15:35:00 Hospital ESTIMATED GFR 2022-08-31 Nawaf Collier 15:35:00 Hospital SINGLE ANTIGEN BEADS 2022-08-31 Nawaf Collier 15:35:00 Hospital SIX MINUTE WALK W/ PULSE OXIMETRY 2022-08-31 Nawaf Collier 15:16:43 Hospital ARTERIAL BLOOD GAS, PULMONARY FUNC 2022-08-31 Nawaf Collier DEPT 14:19:00 Hospital SPIROMETRY, LUNG VOLUMES, 2022-08-31 Nawaf Collier Metho dist MIPS/MEPS 13:53:37 Hospital EXTERNAL PROVIDER - ADC CARDIOLOGY 2022-08-31 Doctor Candy reaves [facility] 05:01:00 [facility] SIX MINUTE WALK W/ PULSE OXIMETRY 2022-06-22 Nawaf Collier 15:29:30 Hospital SPIROMETRY, LUNG VOLUMES 2022-06-22 Nawaf Collier ist 15:27:52 [facility] XR CHEST 2 VW 2022-06-22 Nawaf Collier 13:36:00 Hospital CBC WITH PLATELET AND DIFFERENTIAL 2022-06-22 Nawaf Collier 12:50:00 Hospital COMPREHENSIVE METABOLIC PANEL 2022-06-22 Nawaf Collier ethodist 12:50:00 Hospital ALCOHOL LEVEL, BLOOD 2022-06-22 Nawaf Collierist 12:50:00 Hospital URINE DRUGS OF ABUSE SCREEN 2022-06-22 Nawaf Collier hodist 12:50:00 Hospital NICOTINE AND COTININE, SERUM 2022-06-22 Nawaf Collier Oh thodist 12:50:00 Hospital ESTIMATED GFR 2022-06-22 Nawaf Collier 12:50:00 Hospital SINGLE ANTIGEN BEADS 2022-06-22 Nawaf Collier 12:50:00 Hospital ECG 12-LEAD 2022-05-11 Nawaf Collier 16:51:15 Hospital XR CHEST 2 VW 2022-05-11 Nawaf Collierist 15:16:00 Hospital SIX MINUTE WALK W/ PULSE OXIMETRY 2022-05-11 Nawaf Collier 14:28:47 Hospital SPIROMETRY, LUNG VOLUMES 2022-05-11 Nawaf Collier ist 12:30:00 Hospital CBC WITH PLATELET AND DIFFERENTIAL 2022-05-11 Nawaf Collier 12:05:00 Hospital COMPREHENSIVE METABOLIC PANEL 2022-05-11 Nawaf Collier ethodist 12:05:00 Hospital NICOTINE AND COTININE, SERUM 2022-05-11 Nawaf Collier Oh thodist 12:05:00 Hospital ALCOHOL LEVEL, BLOOD 2022-05-11 Nawaf Collierist 12:05:00 Hospital ESTIMATED GFR 2022-05-11 Nawaf Collier 12:05:00 Hospital SAB CLASS 1 & 2 WITH DILUTIONS 2022-05-11 Nawaf Collier 12:05:00 Hospital EXTERNAL PROVIDER - ADC CARDIOLOGY 2022-05-05 Doctor Candy reaves [facility] 05:01:00 [facility] XR CHEST 1 VW PORTABLE 2022-04-27 Janelle Hahnist 14:00:00 Hospital CBC WITH PLATELET AND DIFFERENTIAL 2022-04-27 Demi Cuello 09:15:00 Hospital MAGNESIUM LEVEL 2022-04-27 Demi Cuello 09:15:00 Hospital BASIC METABOLIC PANEL 2022-04-[address] 09:15:00 Hospital ESTIMATED GFR 2022-04-27 Demi Cuello 09:15:00 Hospital [place] AN ELECTIVE ENDOTRACHEAL AIRWAY 2022-04-26 Luis Valencia 13:36:00 [facility] EXTRACTION, TOOTH 2022-04-26 Cesar Hamilton 13:11:00 [facility] ALVEOLOPLASTY 2022-04-26 Cesar Hamilton 13:11:00 Hospital XR CHEST 2 VW 2022-04-24 Nawaf Collier 16:15:00 Hospital SIX MINUTE WALK W/ PULSE OXIMETRY 2022-04-24 Nawaf Collier 14:44:17 Hospital SPIROMETRY 2022-04-24 Nawaf Collier 14:05:38 Hospital TTE COMPLETE, WO CONTRAST, W 2022-04-24 Nawaf Collier Oh jose AGITATED SALINE ([id number]) 12:56:15 [facility] CBC WITH PLATELET AND DIFFERENTIAL 2022-04-24 Nawaf Collier 11:25:00 [facility] COMPREHENSIVE METABOLIC PANEL 2022-04-24 Nawaf Collier ethodi 11:25:00 Hospital ALCOHOL LEVEL, BLOOD 2022-04-24 Nawaf Collier 11:25:00 Hospital NICOTINE AND COTININE, SERUM 2022-04-24 Nawaf Collier Oh thodist 11:25:00 Hospital VITAMIN D 25 HYDROXY LEVEL 2022-04-24 Nawaf Collier Meth odist 11:25:00 [facility] URINE DRUGS OF ABUSE SCREEN 2022-04-24 Nawaf Collier Met hodist 11:25:00 [facility] ESTIMATED GFR 2022-04-24 Nawaf Collier 11:25:00 [facility] SINGLE ANTIGEN BEADS 2022-04-24 Nawaf Collier 11:25:00 Hospital HEMOGLOBIN A1C 2022-04-12 Maryellen Roach 17:36:00 [facility] PARTIAL THROMBOPLASTIN TIME (PTT) 2022-04-12 Maryellen Roach 17:36:00 [facility] PROTHROMBIN TIME WITH INR 2022-04-12 Maryellen Roach ist 17:36:00 [facility] CBC WITH PLATELET AND DIFFERENTIAL 2022-04-12 Maryellen Roach 17:36:00 [facility] COMPREHENSIVE METABOLIC PANEL 2022-04-12 SluderMaryellen 17:30:00 [facility] ESTIMATED GFR 2022-04-12 Maryellen Roach 17:30:00 [facility] ASSIGNMENT OF BENEFITS 2022-04-03 Doctor Unassigned, Univer sity of 18:14:23 [facility] CBC WITH PLATELET AND DIFFERENTIAL 2022-04-01 Hodan, Karina Limonist 10:32:00 Hospital BASIC METABOLIC PANEL 2022-04-01 Hodan, Karina [facility] 10:32:00 Hospital ESTIMATED GFR 2022-04-01 Hodan, Umar [facility] 10:32:00 Hospital CLOSTRIDIUM DIFFICILE TOXIN GENE 2022-04-01 Hodan, Karina Erickson (QUALITATIVE REAL-TIME PCR) 05:02:00 Hosp ital CBC WITH PLATELET AND DIFFERENTIAL 2022-03-31 Karina Pettit 10:52:00 Hospital BASIC METABOLIC PANEL 2022-03-31 Hodan, Karina [facility] 10:52:00 Hospital ESTIMATED GFR 2022-03-31 Hodan, Karina [facility] 10:52:00 Hospital IMMUNOGLOBULIN G 2022-03-30 Tevin Orozco 09:48:00 Hospital IGG SUBCLASSES 2022-03-30 Tevin Orozco 09:48:00 Hospital IMMUNOGLOBULIN E 2022-03-30 Tevin Orozco 09:48:00 Hospital CBC WITH PLATELET AND DIFFERENTIAL 2022-03-30 Hodan, Karina Erickson 09:48:00 Hospital BASIC METABOLIC PANEL 2022-03-30 Karina Pettit [facility]ational 09:48:00 Hospital ESTIMATED GFR 2022-03-30 Hodan, Karina Erickson 09:48:00 Hospital XR KNEE 3 VW LEFT 2022-03-30 Tevin Orozco 01:38:[address] CHEST WO CONTRAST 2022-03-30 Tevin Orozco 01:28:30 Hospital XR CHEST 1 VW PORTABLE 2022-03-30 Karina Pettit 00:32:08 Hospital ECG 12-LEAD 2022-03-29 Kait Gutierrez 15:36:25 [facility] TROPONIN T 2022-03-29 Kait Gutierrez 15:29:00 [facility] THYROID STIMULATING HORMONE 2022-03-29 Martin Gutierrez 15:29:00 [facility] T3 2022-03-29 Kait Gutierrez 15:29:00 [facility] T4, FREE 2022-03-29 Kait Gutierrez 15:29:00 [facility] B NATRIURETIC PEPTIDE 2022-03-29 Kait Gutierrez 15:29:00 [facility] CBC WITH PLATELET AND DIFFERENTIAL 2022-03-29 Ashok Hill 10:56:00 Hospital COMPREHENSIVE METABOLIC PANEL 2022-03-29 Ashok Hill ethodist 10:56:00 Hospital ESTIMATED GFR 2022-03-29 Ashok Hill 10:56:[address] RENAL STONE PROTOCOL 2022-03-29 Karina Pettit t 03:09:52 Hospital SPUTUM CULTURE 2022-03-28 Ghassan Mclaughlin 20:38:00 Hospital GRAM STAIN 2022-03-28 Ghassan Mclaughlin 20:38:00 Hospital XR CHEST 1 VW PORTABLE 2022-03-28 Ghassan Mclaughlin 20:05:00 Hospital CBC WITH PLATELET AND DIFFERENTIAL 2022-03-28 Ashok Hill 10:11:00 [facility] COMPREHENSIVE METABOLIC PANEL 2022-03-28 Ashok Hillodist 10:11:00 Hospital ESTIMATED GFR 2022-03-28 Ashok Hill 10:11:00 Hospital INSURANCE CORRESPONDENCE 2022-03-28 Doctor Unassigned, Univ ersity of 06:01:00 [facility] SURGICAL PATHOLOGY REQUEST 2022-03-27 Karina Pettito dist 21:16:00 Hospital [place] AN ELECTIVE ENDOTRACHEAL AIRWAY 2022-03-27 Sarah Cartagena Congregational 19:50:00 [facility] ESOPHAGOGASTRODUODENOSCOPY (EGD) 2022-03-27 Fernandez Lutz 19:40:00 [facility] COLONOSCOPY 2022-03-27 Fernandez Lutz 19:40:00 [facility] CBC WITH PLATELET AND DIFFERENTIAL 2022-03-27 Ashok Hill 10:35:00 Hospital COMPREHENSIVE METABOLIC PANEL 2022-03-27 Ashok Hill ethodist 10:35:00 Hospital VENOUS BLOOD GAS 2022-03-27 Pauly Alpesh Erickson 10:35:00 Hospital ESTIMATED GFR 2022-03-27 Ashok Hill 10:35:00 Hospital COVID-19 QUALITATIVE RT-PCR 2022-03-26 Ashok Hill hodist 18:59:00 Hospital TROPONIN I 2022-03-17 [facility] of 21:24:00 [facility] COMP. METABOLIC PANEL ([id number]) 2022-03-17 [facility] Un iversity of 21:24:00 [facility] CBC WITH DIFF 2022-03-17 [facility] of 21:24:00 [facility] N-TERMINAL PRO-BNP 2022-03-17 [facility] of 21:24:00 [facility] CONSENT/REFUSAL FOR DIAGNOSIS AND 2022-03-17 [facility] 20:58:40 [facility] CT CHEST PULMONARY ANGIOGRAM 2022-03-04 Rakel Fulton Un iversity of 09:06:58 [facility] XR CHEST 1 VW 2022-03-04 Rakel Fulton [place] of 07:22:00 [facility] LIPASE 2022-03-04 Rakel Fulton [facility] of 07:09:00 [facility] TROPONIN I 2022-03-04 Rakel Fulton [place] of 07:09:00 [facility] COMP. METABOLIC PANEL ([id number]) 2022-03-04 Rakel Fulton U niversity of 07:09:00 [facility] CBC WITH DIFF 2022-03-04 Rakel Fulton [place] of 07:09:00 [facility] PROTHROMBIN TIME / INR 2022-03-04 Rakel Fulton Universi ty of 07:09:00 [facility] ACTIVATED PARTIAL THRMPLAS LORRIE 2022-03-04 Rakel Fulton [place] of 07:09:00 [facility] CONSENT/REFUSAL FOR DIAGNOSIS AND 2022-03-04 [facility] 06:01:34 [facility] XR CHEST 1 VW 2022-03-01 [facility] of 21:18:40 [facility] TROPONIN I 2022-03-01 [facility] of 20:43:00 [facility] COMP. METABOLIC PANEL ([id number]) 2022-03-01 Edward Reis iversity of 20:43:00 [facility] CBC WITH DIFF 2022-03-01 [facility] of 20:43:00 [facility] N-TERMINAL PRO-BNP 2022-03-01 [facility] of 20:43:00 [facility] LACTIC ACID WHOLE BLOOD 2022-03-01 [facility] ty of 20:43:00 [facility] CONSENT/REFUSAL FOR DIAGNOSIS AND 2022-03-01 [facility] 20:19:16 [facility] EXTERNAL PROVIDER - ADC CARDIOLOGY 2022-02-03 Doctor Candy reaves [facility] 06:01:00 [facility] URINE DRUGS OF ABUSE SCREEN 2022-01-23 Nawaf Collier Met hodist 19:45:00 Hospital SIX MINUTE WALK W/ PULSE OXIMETRY 2022-01-23 Nawaf Collier 17:46:53 Hospital SPIROMETRY, LUNG VOLUMES 2022-01-23 Nawaf Collier ist 16:23:[address] CHEST WO CONTRAST 2022-01-23 Nawaf Collier 15:07:09 [facility] CBC WITH PLATELET AND DIFFERENTIAL 2022-01-23 Nawaf Collier 13:09:00 [facility] COMPREHENSIVE METABOLIC PANEL 2022-01-23 Nawaf Collier ethodist 13:09:00 Hospital ALCOHOL LEVEL, BLOOD 2022-01-23 Nawaf Collier 13:09:00 Hospital NICOTINE AND COTININE, SERUM 2022-01-23 Nawaf Collier Oh thodist 13:09:00 Hospital ESTIMATED GFR 2022-01-23 Nawaf Collier 13:09:00 Hospital SAB CLASS 1 & 2 WITH DILUTIONS 2022-01-23 Nawaf Collier 13:09:00 [facility] BASIC METABOLIC PANEL (NA, K, CL, 2021-12-30 [facility] of CO2, GLUCOSE, BUN, CREATININE, CA) 11:58:00 [facility] CBC WITH DIFF 2021-12-30 [facility] of 11:58:00 [facility] MAGNESIUM 2021-12-29 Nathaly [facility] of 11:20:00 [facility] BASIC METABOLIC PANEL (NA, K, CL, 2021-12-29 NathalyPreeti [place] of CO2, GLUCOSE, BUN, CREATININE, CA) 11:20:00 [facility] CBC WITH DIFF 2021-12-29 Nathaly [facility] of 11:20:00 [facility] BASIC METABOLIC PANEL (NA, K, CL, 2021-12-28 [facility] of CO2, GLUCOSE, BUN, CREATININE, CA) 10:10:00 [facility] CBC WITH DIFF 2021-12-28 [facility] of 10:10:00 [facility] PROCALCITONIN 2021-12-28 [facility] of 10:10:00 [facility] BLOOD CULTURE SCREEN 2021-12-27 Stuart Shaikh of 21:43:00 [facility] LACTIC ACID WHOLE BLOOD 2021-12-27 Stuart Shaikhi ty of 21:43:00 [facility] CT CHEST PULMONARY ANGIOGRAM 2021-12-27 Stuart Shaikh Uni versity of 20:11:53 [facility] XR CHEST 1 VW 2021-12-27 Stuart Shaikh of 18:26:40 [facility] HB ECG ROUTINE & RHYTHM STRIP 2021-12-27 Stuart Shaikh Un iversity of 18:18:59 [facility] RAPID INFLUENZA A/B 2021-12-27 Stuart Shaikh o f 17:47:00 [facility] COVID-19 (ID NOW RAPID TESTING) 2021-12-27 Stuart Shaikh of 17:47:00 [facility] LAB ONLY COVID INTERPRETATION 2021-12-27 Stuart Shaikh Un iversity of 17:47:00 [facility] TROPONIN I 2021-12-27 Stuart Shaikh of 17:36:00 [facility] COMP. METABOLIC PANEL ([id number]) 2021-12-27 Stuart Shaikh Un iversity of 17:36:00 [facility] CBC WITH DIFF 2021-12-27 Stuart Shaikh of 17:36:00 [facility] PROTHROMBIN TIME / INR 2021-12-27 Stuart Shaikhit y of 17:36:00 [facility] ACTIVATED PARTIAL THRMPLAS LORRIE 2021-12-27 Stuart Shaikh U niversity of 17:36:00 [facility] N-TERMINAL PRO-BNP 2021-12-27 Stuart Shaikh University of 17:36:00 [facility] CONSENT/REFUSAL FOR DIAGNOSIS AND 2021-12-27 Doctor Zafar powell, [facility] 17:12:38 [facility] EXTERNAL PROVIDER RECORDS 2021-12-16 Doctor Unassigned, Uni versity of 06:01:00 [facility] XR CHEST 2 VW 2021-12-05 Simran Carr 15:43:00 Hospital RESPIRATORY PATHOGEN PANEL WITH 2021-12-05 Simran Carr COVID-19 RT-PCR 15:33:00 Hospital TROPONIN I 2021-12-04 Brianne Hickey of 19:03:00 [facility] TRANSTHORACIC ECHO (TTE) COMPLETE 2021-12-04 Ritchie Garcia of W/ CONTRAST 15:03:00 [facility] ACUTE CARE VENOUS BLOOD GAS 2021-12-04 Brianne Hickey [facility] ersity of 10:09:00 [facility] PHOSPHORUS 2021-12-04 Brianne Hickey [place] of 10:08:00 [facility] MAGNESIUM 2021-12-04 Brianne Hickey [place] of 10:08:00 [facility] VITAMIN B12, LEVEL 2021-12-04 [facility] 10:08[facility]00 [facility] TROPONIN I 2021-12-04 [facility] 10:08[facility]00 [facility] COMP. METABOLIC PANEL ([id number]) 2021-12-04 Brianne Hickey iversity of 10:08:00 [facility] LIPID PANEL (11622)(TOTAL 2021-12-04 Ritchie Garcia sity of CHOLESTEROL, TRIGLYCERIDES, HDL) 10:08:00 [facility] CBC WITH DIFF 2021-12-04 Brianne Hickey [place] of 10:08:00 [facility] RAPID INFLUENZA A/B 2021-12-04 [facility] Jaspreet o f 10:08:00 [facility] N-TERMINAL PRO-BNP 2021-12-04 MaryBrianne of 10:08:00 [facility] PROCALCITONIN 2021-12-04 Brianne Hickey [place] of 10:08:00 [facility] MRSA / MSSA SCREEN BY MERA HUNT 2021-12-04 Ritchie Garcia of 10:07:00 [facility] RESPIRATORY PANEL BY PCR 2021-12-04 Brianne Hickey [facility] ity of 10:07:00 [facility] URINALYSIS 2021-12-04 Carol Patiño [place] of 07:10:00 [facility] XR CHEST 1 VW 2021-12-03 Carol Patiño [place] of 22:25:08 [facility] LACTIC ACID WHOLE BLOOD 2021-12-03 Carol Patiño [facility] ity of 22:17:00 [facility] LIPASE 2021-12-03 Carol Patiño [place] of 22:14:00 [facility] MAGNESIUM 2021-12-03 Carol Patiño [place] of 22:14:00 [facility] FERRITIN SERUM 2021-12-03 Brianne Hickey [place] of 22:14:00 [facility] TROPONIN I 2021-12-03 Carol Patiño [place] of 22:14:00 [facility] THYROID STIMULATING HORMONE 2021-12-03 Carol Patiño Uni versity of 22:14:00 [facility] COMP. METABOLIC PANEL ([id number]) 2021-12-03 Carol Patiño U niversity of 22:14:00 [facility] LIPID PANEL ([id number])(TOTAL 2021-12-03 Brianne Hickey [facility] sit of CHOLESTEROL, TRIGLYCERIDES, HDL) 22:14:00 [facility] IRON PANEL 2021-12-03 Brianne Hickey [place] of 22:14:00 [facility] CBC WITH DIFF 2021-12-03 Carol Patiño [place] of 22:14:00 [facility] GLYCOSYLATED HEMOGLOBIN (A1C) 2021-12-03 Ritchie Garcia Un iversity of 22:14:00 [facility] PROTHROMBIN TIME / INR 2021-12-03 Carol Patiñoi ty of 22:14:00 [facility] ACTIVATED PARTIAL THRMPLAS LORRIE 2021-12-03 Carol Patiño [place] of 22:14:00 [facility] N-TERMINAL PRO-BNP 2021-12-03 Carol Patiño [place] o f 22:14:00 [facility] COVID-19 (ID NOW RAPID TESTING) 2021-12-03 Carol Patiño [facility] 22:14:00 [facility] HB ECG ROUTINE & RHYTHM STRIP 2021-12-03 Carol Patiño U niversity of 22:12:38 [facility] CONSENT/REFUSAL FOR DIAGNOSIS AND 2021-12-03 [facility] 22:01:51 [facility] AUTHORIZATION FOR RELEASE OF PHI 2021-12-01 [facility] 05:01[facility]00 [facility] MAGNESIUM 2021-11-26 [facility] 09:04:00 [facility] BASIC METABOLIC PANEL (NA, K, CL, 2021-11-26 Nathaly [facility] of CO2, GLUCOSE, BUN, CREATININE, CA) 09:04:00 [facility] CBC WITH DIFF 2021-11-26 [facility] 09:04:00 [facility] BASIC METABOLIC PANEL (NA, K, CL, 2021-11-24 [facility] of CO2, GLUCOSE, BUN, CREATININE, CA) 09:35:00 [facility] CBC WITH DIFF 2021-11-24 [facility] 09:35:00 [facility] XR CHEST 1 VW 2021-11-12 Sean Bills [facility] 17:35:24 [facility] BASIC METABOLIC PANEL (NA, K, CL, 2021-11-12 Sean Bills [facility] CO2, GLUCOSE, BUN, CREATININE, CA) 17:33:00 [facility] CBC WITH DIFF 2021-11-12 Sean Bills [facility] 17:33:00 [facility] RAPID INFLUENZA A/B 2021-11-12 Sean Bills [place] o f 17:33:00 [facility] COVID-19 (ID NOW RAPID TESTING) 2021-11-12 Sean Bills [facility] 17:33:00 [facility] CONSENT/REFUSAL FOR DIAGNOSIS AND 2021-11-12 [facility] 17:18:14 [facility] TROPONIN I 2021-09-14 Sean Bills [facility] 17:58:00 [facility] BASIC METABOLIC PANEL (NA, K, CL, 2021-09-14 Sean Bills [facility] CO2, GLUCOSE, BUN, CREATININE, CA) 17:58:00 [facility] CBC WITH DIFF 2021-09-14 Sean Bills [facility] 17:58:00 [facility] N-TERMINAL PRO-BNP 2021-09-14 Sean Bills [facility] 17:58:00 [facility] COVID-19 (ID NOW RAPID TESTING) 2021-09-14 Sean Bills [facility] 17:58:00 [facility] XR CHEST 1 VW 2021-09-14 Sean Bills [facility] 17:54:14 [facility] CONSENT/REFUSAL FOR DIAGNOSIS AND 2021-09-14 [facility] 17:10:15 [facility] COVID-19 (ID NOW RAPID TESTING) 2021-09-06 [facility] 19:17:00 [facility] XR CHEST 1 VW 2021-09-06 [facility] 16:38:04 [facility] COMP. METABOLIC PANEL ([id number]) 2021-09-05 Ritchie Garcia iversity of 08:53:00 [facility] BASIC METABOLIC PANEL (NA, K, CL, 2021-09-04 Preeti Andersen [place] of CO2, GLUCOSE, BUN, CREATININE, CA) 08:56:00 [facility] CBC WITH DIFF 2021-09-04 NathalyPreeti [place] of 08:56:00 [facility] HEPATIC FUNCTION PANEL ([id number]) 2021-09-03 Ritchie Garcia U niversity of (ALB,T.PRO,BILI 07:52:00 [facility],BU/BC,ALT,AST,ALK PHOS) [place] BASIC METABOLIC PANEL (NA, K, CL, 2021-09-03 [facility] of CO2, GLUCOSE, BUN, CREATININE, CA) 07:52:00 [facility] CBC WITH DIFF 2021-09-03 [facility] of 07:52:00 [facility] URINALYSIS 2021-09-02 [facility] of 09:02:00 [facility] CT CHEST PULMONARY ANGIOGRAM 2021-09-02 [place], Uni versity of 01:32:47 [facility] COVID-19 (ID NOW RAPID TESTING) 2021-09-02 [facility] 00:14:00 [facility] LAB ONLY COVID INTERPRETATION 2021-09-02 [place], Un iversity of 00:14:00 [facility] HB ECG ROUTINE & RHYTHM STRIP 2021-09-01 [place], Un iversity of 23:58:06 [facility] XR CHEST 1 VW 2021-09-01 [facility] 23:55:09 [facility] IRON 2021-09-01 [facility] of 23:34:00 [facility] TOTAL IRON BINDING CAPACITY 2021-09-01 [facility] ersity of 23:34:00 [facility] TROPONIN I 2021-09-01 [facility] 23:34:00 [facility] BASIC METABOLIC PANEL (NA, K, CL, 2021-09-01 [place], [facility] CO2, GLUCOSE, BUN, CREATININE, CA) 23:34:00 [facility] CBC WITH DIFF 2021-09-01 [facility] 23:34:00 [facility] NOTICE OF PRIVACY PRACTICES 2021-09-01 Doctor Unassvioletta, U niversity of 23:12:55 [facility] CONSENT/REFUSAL FOR DIAGNOSIS AND 2021-09-01 Doctor Zafar powell, [facility] 23:12:32 [facility] EXTERNAL PROVIDER - ADC CARDIOLOGY 2021-06-30 Doctor Candy reaves, [facility] 05:01:00 [facility] ALPHA-1 ANTITRYPSIN PHENOTYPE 2021-06-28 Nawaf Collier ethodist 15:04:00 Hospital HC COMPLETE BLD COUNT W/AUTO DIFF 2021-06-23 Alpesh Granados 15:48:00 Hospital COMPREHENSIVE METABOLIC PANEL 2021-06-23 Alpesh Granados thodist 15:48:00 Hospital ALCOHOL LEVEL, BLOOD 2021-06-23 Alpesh Granados 15:48:00 Hospital NICOTINE AND COTININE, SERUM 2021-06-23 Alpesh Granados hodist 15:48:00 Hospital ESTIMATED GFR 2021-06-23 Alpesh Granados Cong[facility]ational 15:48:00 Hospital SINGLE ANTIGEN BEADS 2021-06-23 Alpesh Granados 15:48:00 Hospital XR CHEST 2 VW 2021-06-23 Alpesh Granados 15:00:48 Hospital SIX MINUTE WALK W/ PULSE OXIMETRY 2021-06-23 Alpesh Granados 14:05:12 Hospital SPIROMETRY, DIFFUSION 2021-06-23 Alpesh Granados 12:47:12 Hospital XR CHEST 1 VW PORTABLE 2021-05-28 Glynn Monzon Method ist 10:32:46 [facility] HC COMPLETE BLD COUNT W/AUTO DIFF 2021-05-28 Aftab Murphy [facility]ational 09:41:00 Hospital BASIC METABOLIC PANEL 2021-05-28 Aftab Murphy [facility] 09:41:00 Hospital MAGNESIUM LEVEL 2021-05-28 Aftab Murphy [facility] 09:41:00 Hospital PHOSPHORUS LEVEL 2021-05-28 Aftab Murphy [facility] 09:41:00 Hospital ESTIMATED GFR 2021-05-28 Aftab Murphy [facility] 09:41:00 Hospital XR CHEST 1 VW PORTABLE 2021-05-27 Kwame Menaist 20:25:13 Hospital SURGICAL PATHOLOGY REQUEST 2021-05-27 Angeline Tellez Metho dist 18:03:00 Hospital XR CHEST 1 VW 2021-05-27 Kwame Menaist 17:58:[address] NEEDLE BIOPSY NO CONTRAST 2021-05-27 Glynn Monzon Congregational 16:53:56 [facility] FUNGUS CULTURE 2021-05-27 Angeline Tellezist 16:30:00 Hospital AFB CULTURE 2021-05-27 Angeline Tellezist 16:30:00 Hospital FUNGUS SMEAR 2021-05-27 Angeline Tellezist 16:30:00 Hospital AFB STAIN 2021-05-27 Angeline Tellez 16:30:00 [facility] CYTOLOGY (NON-GYNECOLOGICAL) 2021-05-27 Angeline Tellez Met hodist REQUEST 16:30:00 Hospital HC COMPLETE BLD COUNT W/AUTO DIFF 2021-05-27 Aftab Murphy [facility] 10:12:00 Hospital BASIC METABOLIC PANEL 2021-05-27 Aftab Murphy [facility] 10:12:00 Hospital MAGNESIUM LEVEL 2021-05-27 Aftab Murphy [facility] 10:12:00 Hospital PHOSPHORUS LEVEL 2021-05-27 Aftab Murphy [facility] 10:12:00 Hospital ESTIMATED GFR 2021-05-27 Aftab Murphy [facility] 10:12:00 Hospital HC COMPLETE BLD COUNT W/AUTO DIFF 2021-05-26 Aftab Murphy [facility] 08:03:00 Hospital BASIC METABOLIC PANEL 2021-05-26 Aftab Murphy [facility] 08:03:00 Hospital MAGNESIUM LEVEL 2021-05-26 Aftab Murphy [facility] 08:03:00 Hospital PHOSPHORUS LEVEL 2021-05-26 Aftab Murphy [facility] 08:03:00 Hospital ESTIMATED GFR 2021-05-26 Aftab Murphy [facility] 08:03:00 Hospital HC COMPLETE BLD COUNT W/AUTO DIFF 2021-05-25 Aftab Murphy [facility] 09:14:00 Hospital BASIC METABOLIC PANEL 2021-05-25 Aftab Murphy [facility] 09:14:00 Hospital MAGNESIUM LEVEL 2021-05-25 Aftab Murphy [facility] 09:14:00 Hospital PHOSPHORUS LEVEL 2021-05-25 Aftab Murphy [facility] 09:14:00 Hospital ESTIMATED GFR 2021-05-25 Aftab Murphy [facility] 09:14:00 Hospital CBC HEMOGRAM 2021-05-24 Angeline Tellez [facility] 19:05:00 Hospital BASIC METABOLIC PANEL 2021-05-24 Angeline Tellez [facility] 19:05:00 Hospital MAGNESIUM LEVEL 2021-05-24 Angeline Tellez [facility] 19:05:00 Hospital PHOSPHORUS LEVEL 2021-05-24 Angeline Tellez [facility] 19:05:00 Hospital PROTHROMBIN TIME WITH INR 2021-05-24 Angeline Tellez ist 19:05:00 Hospital PARTIAL THROMBOPLASTIN TIME (PTT) 2021-05-24 TellezJosefa 19:05:00 Hospital ESTIMATED GFR 2021-05-24 Angeline Tellez 19:05:00 Hospital HC COMPLETE BLD COUNT W/AUTO DIFF 2021-05-23u, Alpesh Erickson 19:23:00 Hospital COMPREHENSIVE METABOLIC PANEL 2021-05-23u, Alpesh Morin thodist 19:23:00 Hospital ESTIMATED GFR 2021-05-23 Pauly, Alpesh Erickson 19:23:00 Hospital COVID-19 QUALITATIVE RT-PCR 2021-05-23, Alpesh Salazar odist 18:40:00 Hospital SURGICAL PATHOLOGY REQUEST 2021-05-18 Nawaf Collier Meth odist 19:03:00 Hospital VITAMIN D 25 HYDROXY LEVEL 2021-05-13u, Alpesh Salazaro dist 15:30:00 Hospital BASIC METABOLIC PANEL 2021-05-13, Alpesh Erickson 15:30:00 Hospital ALBUMIN LEVEL 2021-05-13u, Alpesh Erickson 15:30:00 [facility] HCG QUANTITATIVE, SERUM 2021-05-13, Alpesh Cortez t 15:30:00 [facility] ESTIMATED GFR 2021-05-13u, Alpesh Erickson 15:30:00 Hospital EXTERNAL PROVIDER - ADC CARDIOLOGY 2021-04-29 Doctor Candy reaves, [facility] 05:01:00 [facility] PET CT SKULL BASE TO MID THIGH 2021-04-18 Pauly, Alpesh Shaw ethodist 15:02:47 [facility] POC GLUCOSE 2021-04-18 Pauly, Alpesh Erickson 13:41:00 Hospital CONSENT/REFUSAL FOR DIAGNOSIS AND 2021-04-16 Doctor Zafar powell, [facility] 21:32:41 [facility] CV RIGHT AND LEFT HEART CATH 2021-04-16 Lottie Kraft hodist SELECTIVE CORONARY LV GRAM 00:11:05 [facility] martha ECG 12-LEAD 2021-04-14u, Alpesh Erickson 20:29:03 Hospital SPIROMETRY, LUNG VOLUMES, 2021-04-14 Alpesh Granados ist MIPS/MEPS 19:11:27 Hospital SIX MINUTE WALK W/ PULSE OXIMETRY 2021-04-14u, Alpesh Erickson 18:27:27 Hospital ARTERIAL BLOOD GAS, PULMONARY FUNC 2021-04-14u, Alpesh Erickson DEPT 17:29:00 Hospital US CAROTID DUPLEX BILATERAL 2021-04-14, Alpesh Salazar odist 14:00:00 Hospital ABORH - TRANSPLANT 2021-04-12, Alpesh Erickson 13:45:00 Hospital URINE CULTURE 2021-04-12, Alpesh Erickson 13:25:00 Hospital VITAMIN D 1,25 DIHYDROXY LEVEL, 2021-04-12, Alpesh Erickson SERUM 13:25:00 Hospital ZINC LEVEL, SERUM 2021-04-12, Alpesh Erickson 13:25:00 Hospital C-REACTIVE PROTEIN 2021-04-12, Alpesh Erickson 13:25:00 Hospital HC COMPLETE BLD COUNT W/AUTO DIFF 2021-04-12, Alpesh Erickson 13:25:00 Hospital BASIC METABOLIC PANEL 2021-04-12, Alpesh Erickson 13:25:00 Hospital HEPATIC FUNCTION PANEL 2021-04-12, Alpesh Erickson 13:25:00 Hospital ANTINUCLEAR ANTIBODIES (DEMI) WITH 2021-04-12, Alpesh Erickson REFLEX TO TITER AND PATTERN, 13:25:00 Hos pital IMMUNOFLUORESCENCE IONIZED CALCIUM 2021-04-12, Alpesh Erickson 13:25:00 Hospital MAGNESIUM LEVEL 2021-04-12, Alpesh Erickson 13:25:00 Hospital PHOSPHORUS LEVEL 2021-04-12, Alpesh Erickson 13:25:00 Hospital FIBRINOGEN 2021-04-12, Alpesh Erickson 13:25:00 Hospital HEMOGLOBIN A1C 2021-04-12, Alpesh Erickson 13:25:00 Hospital HEMOGLOBIN ELECTROPHORESIS WITH 2021-04-12, Alpesh Erickson HGB HCT AND RBC 13:25:00 Hospital LDH 2021-04-12, Alpesh Erickson 13:25:00 Hospital LIPID PANEL 2021-04-12, Alpesh Erickson 13:25:00 Hospital NICOTINE AND COTININE, SERUM 2021-04-12, Alpesh garsia 13:25:00 Hospital PARATHYROID HORMONE 2021-04-12, Alpesh Erickson 13:25:00 Hospital PREALBUMIN LEVEL 2021-04-12, Alpesh Erickson 13:25:00 Hospital SYPHILIS TREPONEMA SCREEN WITH RPR 2021-04-12, Alpesh Erickson CONFIRMATION (REVERSE ALGORITHM) 13:25:00 Hospital SERUM ELECTROPHORESIS 2021-04-12, Alpesh Erickson 13:25:00 Hospital SEDIMENTATION RATE 2021-04-12, Alpesh Erickson 13:25:00 Hospital THYROID STIMULATING HORMONE 2021-04-12, Alpesh Salazar odist 13:25:00 Hospital T3 2021-04-12, Alpesh Erickson 13:25:00 Hospital T4 2021-04-12u, Alpesh Erickson 13:25:00 Hospital T4, FREE 2021-04-12u, Alpesh Erickson 13:25:00 Hospital TOXOPLASMA GONDII ANTIBODY, IGG 2021-04-12, Alpesh Erickson 13:25:00 Hospital TOXOPLASMA IGM AB 2021-04-12, Alpesh Erickson 13:25:00 Hospital URIC ACID LEVEL 2021-04-12, Alpesh Erickson 13:25:00 Hospital CYTOMEGALOVIRUS AB, IGG 2021-04-12, Alpesh Cortez t 13:25:00 Hospital CECILIA-KAPADIA VIRUS ANTIBODY TEST 2021-04-12, Alpesh Erickson 13:25:00 Hospital HSV 1 & 2 GLYCOPROTEIN G AB, IGG 2021-04-12, Alpesh Erickson 13:25:00 Hospital HSV TYPE 1/2 COMBINED AB, IGM 2021-04-12, Alpesh Morin thodist 13:25:00 Hospital HIV 1/2 ANTIGEN/ANTIBODY, FOURTH 2021-04-12, Alpesh Erickson GENERATION, WITH REFLEXES 13:25:00 Hospit al HEPATITIS ACUTE PANEL 2021-04-12, Alpesh Erickson 13:25:00 Hospital HEPATITIS B SURFACE AB, 2021-04-12, Alpesh Cortez t QUANTITATIVE 13:25:00 Hospital HEPATITIS B CORE ANTIBODY TOTAL 2021-04-12, Alpesh Erickson 13:25:00 Hospital HEPATITIS A ANTIBODY TOTAL 2021-04-12u, Alpesh Salazaro dist 13:25:00 Hospital VARICELLA ZOSTER VIRUS AB, IGM 2021-04-12, Alpesh Shaw ethodist 13:25:00 Hospital LUPUS ANTICOAGULANT PANEL 2021-04-12, Alpesh Limon ist 13:25:00 Hospital ANTI-NEUTROPHILIC CYTOPLASMIC ABS 2021-04-12, Alpesh Erickson PANEL 13:25:00 Hospital CYCLIC CITRULLINATED PEPTIDE AB, 2021-04-12, Alpesh Erickson IGG 13:25:00 Hospital ALDOLASE, SERUM 2021-04-12u, Alpesh Limonist 13:25:00 Hospital CENTROMERE ANTIBODY 2021-04-12u, Alpesh Limonist 13:25:00 Hospital DOUBLE-STRANDED DNA (DSDNA) 2021-04-12u, Alpesh reddy ANTIBODIES, CRITHIDIA 13:25:00 Hospital ALONDRA-1 ANTIBODY 2021-04-12u, Alpesh Limonist 13:25:00 Hospital C4 COMPLEMENT COMPONENT 2021-04-12u, Alpesh Cortez t 13:25:00 Hospital RHEUMATOID FACTOR 2021-04-12u, Alpesh Limonist 13:25:00 Hospital FERRITIN LEVEL 2021-04-12u, Alpesh Limonist 13:25:00 Hospital FOLATE LEVEL 2021-04-12, Alpesh Erickson 13:25:00 Hospital HAPTOGLOBIN 2021-04-12, Alpesh Erickson 13:25:00 Hospital PERIPHERAL SMEAR 2021-04-12, Alpesh Erickson 13:25:00 Hospital TOTAL IRON BINDING CAPACITY 2021-04-12u, Alpesh Salazar odist 13:25:00 Hospital VITAMIN B12 LEVEL 2021-04-12, Alpesh Limonist 13:25:00 Hospital URINALYSIS SCREEN AND MICROSCOPY, 2021-04-12, Alpesh Erickson WITH REFLEX TO CULTURE 13:25:00 Hospital TYPE AND SCREEN 2021-04-12, Alpesh Erickson 13:25:00 Hospital ESTIMATED GFR 2021-04-12u, Alpesh Erickson 13:25:00 Hospital SINGLE ANTIGEN BEADS 2021-04-12, Alpesh Erickson 13:25:00 Hospital MISCELLANEOUS REFERRAL TEST 2021-04-12, Alpesh Salazar odist 13:25:00 Hospital CREATININE CLEARANCE, URINE, 24 2021-04-12u, Alpesh Erickson HOUR 13:25:00 Hospital COVID-19 QUALITATIVE RT-PCR 2021-04-12 GuillermoFernanda gray odist 12:54:00 Hospital TB T-SPOT 2021-04-12, Alpesh Erickson 12:25:00 Hospital COMPLEMENT ACTIVITY, TOTAL 2021-04-12, Alpesh Salazaro dist 12:25:00 Hospital ANGIOTENSIN CONVERTING ENZYME 2021-04-12, Alpesh Morin thodist 12:25:00 Hospital HYPERSENSITIVITY PNEUMONITIS I 2021-04-12 Pauly, Alpesh Shaw ethodist 12:25:00 Hospital HYPERSENSITIVITY PNEUMONITIS II 2021-04-12 Pauly, Alpesh Erickson 12:25:00 Hospital HLA TYPING 2021-04-12 Pauly, Alpesh Erickson 12:25:00 Hospital C1Q CLASS 1 & 2 ANTIBODY 2021-04-12 Pauly, Alpesh Limoni st 12:25:00 Hospital FL FLUOROSCOPY OF DIAPHRAGM NO 2021-04-11 Pauly, Alpesh Shaw ethodist FILMS 21:15:00 Hospital FL ESOPHAGRAM SINGLE CONTRAST 2021-04-11, Alpesh Morin thodist 21:05:00 Hospital NM CARDIAC SHUNT EVALUATION 2021-04-11, Alpesh Meth odist 20:04:00 Hospital NM LUNG PERFUSION QUANT W IMG 2021-04-11, Alpesh Morin thodist 20:03:00 Hospital US ABDOMEN COMPLETE 2021-04-11u, Alpesh Erickson 18:13:00 Hospital XR PANOREX 2021-04-11, Alpesh Erickson 16:28:00 Hospital XR CHEST 2 VW 2021-04-11, Alpesh Erickson 16:12:00 Hospital BONE DENSITY 2021-04-11u, Alpesh Erickson 16:02:[address] CHEST WO CONTRAST 2021-04-11, Alpesh Erickson 15:18:00 Hospital TTE COMPLETE W AGITATED SALINE W 2021-04-11, Alpesh Erickson CONT W DOP 14:39:07 Hospital CONSENT/REFUSAL FOR DIAGNOSIS AND 2021-04-07 Doctor Zafar powell [facility] 16:53:02 [facility] ASSIGNMENT OF BENEFITS 2021-04-07 Doctor Rosalinda [facility] of 16:52:46 [facility] MEDICAL RELEASE/CLEARANCE FORMS 2021-03-18 Doctor Hawk dsouza [place] of 06:01:00 [facility] MAGNESIUM 2021-03-15 Priyank Odonnell [facility] 09:45:00 [facility] BASIC METABOLIC PANEL (NA, K, CL, 2021-03-15 [place] [id number], GLUCOSE, BUN, CREATININE, CA) 09:45:00 [facility] CBC WITH DIFF 2021-03-15 Priyank Odonnell [place] of 09:45:00 [facility] PHOSPHORUS 2021-03-14 Haresh Casarez [place] of 10:18:00 [facility] MAGNESIUM 2021-03-14 Haresh Casarez [place] of 10:18:00 [facility] BASIC METABOLIC PANEL (NA, K, CL, 2021-03-14 Leida, Aric n [place] of CO2, GLUCOSE, BUN, CREATININE, CA) 10:18:00 [facility] FECES CULTURE 2021-03-13 Priyank beach [place] of 16:15:00 [facility] CLOSTRIDIUM DIFFICILE TOXIN 2021-03-13 [facility] 16:15:00 [facility] BASIC METABOLIC PANEL (NA, K, CL, 2021-03-13 [facility] of CO2, GLUCOSE, BUN, CREATININE, CA) 12:29:00 [facility] CBC WITH DIFF 2021-03-13 Priyank beach [place] of 12:29:00 [facility] PNEUMOCOCCAL ANTIGEN 2021-03-12 Haresh Casarez [place] of 04:26:00 [facility] MAGNESIUM 2021-03-11 Umberto [facility] of 11:06:00 [facility] BASIC METABOLIC PANEL (NA, K, CL, 2021-03-11 Aric Casarez [place] of CO2, GLUCOSE, BUN, CREATININE, CA) 11:06:00 [facility] CBC WITH DIFF 2021-03-11 Haresh Casarez [place] of 11:06:00 [facility] MRSA / MSSA SCREEN BY PCR, MERA 2021-03-11 Irene [facility] Toledobrigitte [place] of 11:06:00 [facility] PHOSPHORUS 2021-03-11 Leida [facility] of 00:35:00 [facility] COVID-19 (ID NOW RAPID TESTING) 2021-03-10 Edward Reis of 17:41:00 [facility] LAB ONLY COVID INTERPRETATION 2021-03-10 Edward Reis iversity of 17:41:00 [facility] XR CHEST 1 VW 2021-03-10 Edward Reis of 15:32:47 [facility] LIPASE 2021-03-10 Edward Reis of 15:22:00 [facility] TROPONIN I 2021-03-10 [facility] of 15:22:00 [facility] COMP. METABOLIC PANEL (47046) 2021-03-10 Eh Reisip Un iversity of 15:22:00 [facility] CBC WITH DIFF 2021-03-10 [facility] of 15:22:00 [facility] PROTHROMBIN TIME / INR 2021-03-10 Eh Reisip [facility] of 15:22:00 [facility] ACTIVATED PARTIAL THRMPLAS LORRIE 2021-03-10 Reis [facility] of 15:22:00 [facility] HB ECG ROUTINE & RHYTHM STRIP 2021-03-10 Eh Reissukumar Santana iversity of 15:19:21 [facility] CONSENT/REFUSAL FOR DIAGNOSIS AND 2021-03-10 [facility] 15:02:16 [facility] HOSPITAL ADMISSION 2021-03-10 Doctor Rosalinda, [facility] 06:01:00 [facility] AUTHORIZATION FOR RELEASE OF PHI 2021-02-21 [facility] EXTERNAL PROVIDER - ADC REFERRAL 2021-01-20 [facility] 06:[facility]00 [facility] CT CHEST EXTERNAL STUDY 2020-12-17 Nawaf Collier 19:33:00 Hospital ECG 12-LEAD 2020-11-29 Fernanda Guillermo 17:14:[address] CHEST EXTERNAL STUDY 2020-11-23 Nawaf Collier 16:06:00 Hospital Tonsillectomy 1973-02-05 [facility] 00:00:00 Hysterectomy [facility] Open Reduction of Fracture of Pr [facility] Plan of Care Planned Activity Planned Date Details Comments Source Future Scheduled 2022-11-02 [facility] 09:48:00 malignant neoplasm of colon (procedure) [code = 149203030] Future Scheduled 2022-11-02 [facility] 09:48:00 malignant neoplasm of colon (procedure) [code = 402132656] Future Scheduled 2022-11-02 [facility] 09:48:00 malignant neoplasm of cervix (procedure) [code = 999124321] Future Scheduled 2022-11-02 [facility] 09:48:00 malignant neoplasm of lung (procedure) [code = 263410601] Future Scheduled 2022-11-02 SHINGLES VACCINES (2 [facility] 09:48:00 of 3) [code = SHINGLES VACCINES (2 of 3)] Future Scheduled 2022-11-02 INFLUENZA VACCINE [facility] Test 09:48:00 (#1) [code = INFLUENZA VACCINE (#1)] Future Scheduled 2022-11-02 BREAST CANCER [facility] 09:48:00 SCREENING [code = BREAST CANCER SCREENING] Future Scheduled 2022-11-02 [facility] 09:48:00 malignant neoplasm of colon (procedure) [code = 382922013] Future Scheduled 2022-11-02 Pneumococcal Vaccine: [facility] Test 09:48:00 Pediatrics (0 to 5 Years) and At-Risk Patients (6 to 64 Years) (3 - PPSV23 or PCV20) [code = Pneumococcal Vaccine: Pediatrics (0 to 5 Years) and At-Risk Patients (6 to 64 Years) (3 - PPSV23 or PCV20)] Future Scheduled 2022-11-02 [facility] 09:48:00 malignant neoplasm of colon (procedure) [code = 371568075] Future Scheduled 2022-11-02 [facility] 09:48:00 malignant neoplasm of colon (procedure) [code = 952688528] Future Scheduled 2022-07-10 [facility] 10:58:37 malignant neoplasm of colon (procedure) [code = 353217694] Future Scheduled 2022-07-10 [facility] 10:58:37 malignant neoplasm of colon (procedure) [code = 650508336] Future Scheduled 2022-07-10 [facility] 10:58:37 malignant neoplasm of cervix (procedure) [code = 608278131] Future Scheduled 2022-07-10 [facility] 10:58:37 malignant neoplasm of lung (procedure) [code = 746783779] Future Scheduled 2022-07-10 [facility] 10:58:37 malignant neoplasm of colon (procedure) [code = 173425939] Future Scheduled 2022-07-10 SHINGLES VACCINES (2 Met [facility] Test 10:58:37 of 3) [code = SHINGLES VACCINES (2 of 3)] Future Scheduled 2022-07-10 INFLUENZA VACCINE Method [facility] Test 10:58:37 [code = INFLUENZA VACCINE] Future Scheduled 2022-07-10 BREAST CANCER [facility] Test 10:58:37 SCREENING [code = BREAST CANCER SCREENING] Future Scheduled 2022-07-10 Pneumococcal Vaccine: [facility] Test 10:58:37 Pediatrics (0 to 5 Years) and At-Risk Patients (6 to 64 Years) (3 - PPSV23 if available, else PCV20) [code = Pneumococcal Vaccine: Pediatrics (0 to 5 Years) and At-Risk Patients (6 to 64 Years) (3 - PPSV23 if available, else PCV20)] Future Scheduled 2022-07-10 Screening for [facility] Test 10:58:37 malignant neoplasm of colon (procedure) [code = 371312766] Future Scheduled 2022-07-10 Screening for [facility] Test 10:58:37 malignant neoplasm of colon (procedure) [code = 545513332] Future Scheduled 2021-11-23 HEPATITIS B VACCINES Met [facility] Test 21:26:10 (1 of 3 - 3-dose series) [code = HEPATITIS B VACCINES (1 of 3 - 3-dose series)] Future Scheduled 2021-11-23 Screening for [facility] Test 21:26:10 malignant neoplasm of cervix (procedure) [code = 521491491] Future Scheduled 2021-11-23 BREAST CANCER [facility] Test 21:26:10 SCREENING [code = BREAST CANCER SCREENING] Future Scheduled 2021-11-23 COLONOSCOPY SCREENING [facility] Test 21:26:10 [code = COLONOSCOPY SCREENING] Future Scheduled 2021-11-23 SHINGLES VACCINES (1 Met [facility] Test 21:26:10 of 2) [code = SHINGLES VACCINES (1 of 2)] Future Scheduled 2021-11-23 COVID-19 VACCINE (2 - [facility] Test 21:26:10 Pfizer series) [code = COVID-19 VACCINE (2 - Pfizer series)] Future Scheduled 2021-11-23 INFLUENZA VACCINE Method [facility] Test 21:26:10 [code = INFLUENZA VACCINE] Future Scheduled 2021-11-23 Pneumococcal Vaccine: [facility] Test 21:26:10 Pediatrics (0 to 5 Years) and At-Risk Patients (6 to 64 Years) (3 - PPSV23 if available, else PCV20) [code = Pneumococcal Vaccine: Pediatrics (0 to 5 Years) and At-Risk Patients (6 to 64 Years) (3 - PPSV23 if available, else PCV20)] Future Scheduled 2021-08-10 COVID-19 Vaccination [facility] Test 03:53:43 (#1) [code = COVID-19 MD And erson Cancer Vaccination (#1)] Center Diagnostic Test 2020-06-03 culture, sputum [code Mere via Medical Pending 00:00:00 = culture, sputum] Encounters Start End Encounter Admission Attending Care Care Encounter Source Date/Time Date/Time Type Type Clinicians Facility Department ID 2021-03-03 Outpatient 3 [id number] ENCPL REF [id number] [facility] 13:19:49 [facility] [place] 2021-01-03 Outpatient READMISSIO JULIA ENCCLR ENCCLR [id number] ENCCLR 14:31:15 N DEMI JAIMES 2021-01-03 Outpatient READMISSIO ENCGEN ENCGEN [id number] ENCGEN 13:24:39 N 2020-12-07 Emergency [facility] [id number] [facility] Emergency [facility] [id number] Univers 05:50[facility]-12-06 Emergency [facility] [id number] Univers 00:32[facility]42 [facility] 2020-12-05 Emergency [facility] [id number] Univers 17:40:10 [facility] 2020-12-03 Emergency [facility] [id number] Univers 12:41[facility]22 [facility] 2022-11-10 2022-11-10 Outpatient Adelia NASSAR [facility] [id number] Univers 10:30:00 10:30:00 NO [facility] 2022-11-05 2022-11-06 Emergency Fercho [facility] ERT [id number] Univers 23:45:00 03:32:00 PORSCHE ity [facility] 2022-11-05 2022-11-06 Emergency [facility] [id number] [facility] 23:45:00 03:32:00 Porsche MENCHACA 350.1.13.10 ingrid [facility] 4.2.7.2.686 [facility] [phone] [address] 2022-10-30 2022-10-30 Refill Nelda, 1.2.840.1 [id number] Methodi 00:00:00 00:00:[address] [place] 3.430.2.7 Hospit a .3.404143 l .8 2022-10-10 2022-10-10 Telephone Moy, 1.2.840.1 [id number] [id number] Methodi 00:00:00 00:00:[address] 3.430.2.7 Hospit a .3.198693 l .8 2022-10-02 2022-10-02 Orders Loree, 1.2.840.1 [id number] Methodi 00:00:00 00:00:00 Only Angelica 63819.1.[address] 3.430.2.7 Hospit a .3.534400 l .8 2022-09-21 2022-09-21 Telephone Nelda, 1.2.840.1 [id number] [id number] Methodi 00:00:00 00:00:[address] [place] 3.430.2.7 Hospit a .3.333586 l .8 2022-08-31 2022-09-20 [facility] Aftab Murphy 1.2.840.1 [id number] Methodi 15:37:00 16:14:00 Nicole Newell 27981.1.[address] Scafidi, Mallory 3.430.2.7 [facility] .3.088132 l Wiliam Emanuel .8 2022-08-31 2022-09-20 Inpatient [facility] [id number] [place] 00:00:00 00:00:00 [address] 2022-09-19 2022-09-19 Surgery Alpesh Granados 1.2.840.1 [id number] Methodi 13:30:00 15:30:[address] 3.430.2.7 Hospit a .3.412356 l .8 2022-09-19 2022-09-19 Anesthesia Hernan Hampton 1.2.840.1 [id number] Methodi 14:14:00 14:50:00 Event Caleb Reid 39020.1.[address] 3.430.2.7 Hospit a .3.880759 l .8 2022-09-14 2022-09-14 Orders Doctor LUIS 1.2.840.114 [id number] Univers 00:00:00 00:00:00 Only Unassigned, TAYLOR 350.1.13.10 ity of [place] [facility] 4.2.7.2.686 Lj as [id number] [place] [address] [place] 2022-05-11 2022-09-08 Office Alpesh Granados 1.2.840.1 [id number] Methodi 14:00:00 13:31:[address] 3.430.2.7 Hospit a .3.484460 l .8 2022-09-05 2022-09-05 Surgery Inder, 1.2.840.1 [id number] Methodi 09:00:00 09:30:[address] [place] 3.430.2.7 Hospit a .3.301031 l .8 2022-09-05 2022-09-05 Anesthesia Hernan Hampton 1.2.840.1 [id number] Methodi 08:49:00 09:09:00 Event Dionne Patiño 09339.1.[address] 3.430.2.7 Hospit a .3.770082 l .8 2022-09-01 2022-09-01 Telephone Jessica [facility] 1.2.704.436 [id number] Univers 00:00:00 00:00:00 Sabino MENCHACA 350.1.13.10 i ty [facility] 4.2.7.2.686 Nabeel IVAN [id number] Oh dical NAL 085 [facility] 2022-09-01 2022-09-01 Telephone Renny, 1.2.840.1 [id number] Methodi 00:00:00 00:00:[address] 3.430.2.7 Hospit a .3.640792 l .8 2022-08-31 2022-08-31 [facility] 1.2.840.1 [id number] Methodi 10:00:00 15:36:00 Encounter Nawaf Blair 13630.1.[address] 3.430.2.7 Hospit a .3.866918 l .8 2022-08-31 2022-08-31 Office Nawaf Collier 1.2.840.1 [id number] Methodi 13:15:00 13:30:00 Visit Alpesh Granados 94074.1.1 [address] Simran Carr 3.430.2.7 Hospita .3.559049 l .8 2022-08-31 2022-08-31 [facility] 1.2.840.1 [id number] Methodi 08:00:00 09:59:00 Encounter Nawaf Blair 62543.1.[address] 3.430.2.7 Hospit a .3.765519 l .8 2022-08-31 2022-08-31 Outpatient [facility] [id number] [place] 00:00:00 00:00:00 NAWAF [address] 2022-08-31 2022-08-31 Outpatient [facility] [id number] [place] 00:00:00 00:00:00 NAWAF [address] [facility] 2022-08-31 2022-08-31 Outpatient [facility] [id number] [place] 00:00:00 00:00:00 NAWAF Atkins [facility] 2022-08-31 2022-08-31 Outpatient ALPESH GRANADOS [facility] [id number] [place] 00:00:00 00:00:[address] 2022-08-31 2022-08-31 Orders Doctor LUIS 1.2.840.114 [id number] Univers 00:00:00 00:00:00 Only Unassigned, TAYLOR 350.1.13.10 ity of [place] [facility] 4.2.7.2.686 Lj as [id number] [place] [address] [place] 2022-08-31 2022-08-31 Documentat Loree, 1.2.840.1 [id number] [id number] Methodi 00:00:00 00:00:00 ion Angelica 59392.1.[address] 3.430.2.7 Hospit a .3.199442 l .8 2022-07-10 2022-07-10 Documentat Kingsley 1.2.840.1 [id number] Methodi 00:00:00 00:00:00 ion Nawaf Blair 43754.1.[address] 3.430.2.7 Hospit a .3.633551 l .8 2022-07-10 2022-07-10 Documentat Kingsley 1.2.840.1 [id number] Methodi 00:00:00 00:00:00 ion Nawaf Blair 74155.1.[address] 3.430.2.7 Hospit a .3.442693 l .8 2022-06-22 2022-07-06 Office Nawaf Collier 1.2.840.1 [id number] Methodi 12:30:00 15:16:59 Visit Beulah Vyas 57030.1.[address] 3.430.2.7 Hospit a .3.233540 l .8 2022-06-22 2022-07-06 Office Nawaf Collier 1.2.840.1 [id number] Methodi 12:30:00 15:16:59 Visit Beulah Vyas 01861.1.[address] 3.430.2.7 Hospit a .3.500526 l .8 2022-07-04 2022-07-04 Orders Loree, 1.2.840.1 [id number] 8305 Methodi 00:00:00 00:00:00 Only Angelica 28878.1.[address] 3.430.2.7 Hospit a .3.133922 l .8 2022-07-04 2022-07-04 Orders Loree, 1.2.840.1 [id number] [id number] 4716 Methodi 00:00:00 00:00:00 Only Angelica 90868.1.[address] 3.430.2.7 Hospit a .3.129844 l .8 2022-06-28 2022-06-28 Refill Loree, 1.2.840.1 [id number] 787983 8374 Methodi 00:00:00 00:00:[address] 3.430.2.7 Hospit a .3.747159 l .8 2022-06-28 2022-06-28 Refill Loree, 1.2.840.1 [id number] 483182 3063 Methodi 00:00:00 00:00:[address] 3.430.2.7 Hospit a .3.294411 l .8 2022-06-26 2022-06-26 Telephone Moy, 1.2.840.1 [id number] 2099 971092 Methodi 00:00:00 00:00:[address] 3.430.2.7 Hospit a .3.309167 l .8 2022-06-26 2022-06-26 Telephone Moy, 1.2.840.1 [id number] 2099 621494 Methodi 00:00:00 00:00:[address] 3.430.2.7 Hospit a .3.048296 l .8 2022-06-23 2022-06-23 Documentat [place], 1.2.840.1 [id number] 570 [id number] Methodi 00:00:00 00:00:00 ion Gina 11732.1.[address] 3.430.2.7 Hospit a .3.724811 l .8 2022-06-23 2022-06-23 [facility] [place], 1.2.840.1 [id number] 965 [id number] Methodi 00:00:00 00:00:00 ion Gina 69786.1.[address] 3.430.2.7 Hospit a .3.883045 l .8 2022-06-22 2022-06-22 [facility], 1.2.840.1 [id number] 85 Methodi 09:30:00 23:59:00 Encounter Nawaf Blair 55166.1.[address] 3.430.2.7 Hospit a .3.961066 l .8 2022-06-22 2022-06-22 [facility], 1.2.840.1 [id number] Methodi 09:30:00 23:59:00 Encounter Nawaf Blair 73473.1.[address] 3.430.2.7 Hospit a .3.214685 l .8 2022-06-22 2022-06-22 [facility], 1.2.840.1 [id number] 65061 Methodi 08:00:00 09:29:00 Encounter Nawaf Blair 19969.1.[address] 3.430.2.7 Hospit a .3.141070 l .8 2022-06-22 2022-06-22 [facility], 1.2.840.1 [id number] Methodi 08:00:00 09:29:00 Encounter Nawaf Blair 47417.1.[address] 3.430.2.7 Hospit a .3.972796 l .8 2022-06-22 2022-06-22 Formerly [facility] [id number] [address] [place] [address] 00:00:00 00:00:00 NAWAF Remy Method i st 2022-06-22 2022-06-22 Travel 1.2.840.1 1.2.557.470 4968 301927 Methodi 00:00:00 00:00:[address] 3.430.2.7 0.2.7.3.698 Ho spita .3.313757 084.8 l .8 2022-06-22 2022-06-22 Travel 1.2.840.1 1.2.618.468 9667 730413 Methodi 00:00:00 00:00:[address] 3.430.2.7 0.2.7.3.698 Ho spita .3.313059 084.8 l .8 2022-06-15 2022-06-15 Documentat [place], 1.2.840.1 [id number] Methodi 00:00:00 00:00:00 [address] Jewell 53666.1.[address] 3.430.2.7 Hospit a .3.463923 l .8 2022-06-15 2022-06-15 Documentat [place], 1.2.840.1 [id number] [id number] Methodi 00:00:00 00:00:[address] 3.430.2.7 Hospit a .3.949789 l .8 2022-06-13 2022-06-13 Orders Loree, 1.2.840.1 060321501 497815 5603 Methodi 00:00:00 00:00:00 Only Angelica 93387.1.[address] 3.430.2.7 Hospit a .3.391121 l .8 2022-06-13 2022-06-13 Orders Loree, 1.2.840.1 [id number] 792111 2131 Methodi 00:00:00 00:00:00 Only Angelica 37899.1.[address] 3.430.2.7 Hospit a .3.798776 l .8 2022-05-11 2022-05-11 [facility] Collier, 1.2.840.1 [id number] 54239 70340 Methodi 09:55:57 23:59:00 Jose Blair 83582.1.[address] 3.430.2.7 Hospit a .3.297108 l .8 2022-05-11 2022-05-11 [facility], 1.2.840.1 [id number] 00374 Methodi 09:55:57 23:59:00 Encounter Nawaf Rudolph50.1.[address] 3.430.2.7 Hospit a .3.510119 l .8 2022-05-11 2022-05-11 Office Alpesh Granados 1.2.840.1 [id number] 178 7606097 Methodi 14:00:00 14:15:[address] 3.430.2.7 Hospit a .3.174866 l .8 2022-05-11 2022-05-11 [facility], 1.2.840.1 [id number] 78688 Methodi 08:00:00 09:54:00 Encounter Nawaf Blair 66565.1.[address] 3.430.2.7 Hospit a .3.023946 .8 2022-05-11 2022-05-11 [facility], 1.2.840.1 [id number] 71944 Methodi 08:00:00 09:54:00 Encounter Nawaf Blair 86948.1.[address] 3.430.2.7 Hospit a .3.454938 .8 2022-05-11 2022-05-11 [facility], 1.2.840.1 [id number] 79838 Methodi 07:30:00 07:59:00 Encounter Nawaf Blair 89238.1.[address] 3.430.2.7 Hospit a .3.131183 .8 2022-05-11 2022-05-11 [facility], 1.2.840.1 [id number] 52553 Methodi 07:30:00 07:59:00 Encounter Nawaf Blair 37888.1.[address] 3.430.2.7 Hospit a .3.396609 l .8 2022-05-11 2022-05-11 Outpatient [facility] [id number] [place] 00:00:00 00:00:00 NAWAF Ceja Method i st 2022-05-11 2022-05-11 Outpatient [facility] [id number] [address] [place] [address] 00:00:00 00:00:00 NAWAF [address] 2022-05-11 2022-05-11 Documentat Loree, 1.2.840.1 [id number] 549 [id number] Methodi 00:00:00 00:00:00 ion Angelica 31611.1.[address] 3.430.2.7 Hospit a .3.949757 l .8 2022-05-11 2022-05-11 Travel 1.2.840.1 1.2.565.386 3110 307466 Methodi 00:00:00 00:00:[address] 3.430.2.7 0.2.7.3.698 Ho spita .3.615764 084.8 l .8 2022-05-11 2022-05-11 Documentat Loree, 1.2.840.1 [id number] 812 3150006 Methodi 00:00:00 00:00:00 ion Angel[address]330.1.[address] 3.430.2.7 Hospit a .3.278637 l .8 2022-05-11 2022-05-11 Travel 1.2.840.1 1.2.610.714 1002 019659 Methodi 00:00:00 00:00:[address] 3.430.2.7 0.2.7.3.698 Ho spita .3.864640 084.8 l .8 2022-05-05 2022-05-05 Documentat [place], 1.2.840.1 084018431 837 1075094 Methodi 00:00:00 00:00:00 ion Gina [address]322.1.[address] 3.430.2.7 Hospit a .3.881230 l .8 2022-05-05 2022-05-05 Telephone [place], 1.2.840.1 [id number] 2099 035879 Methodi 00:00:00 00:00:[address] 3.430.2.7 Hospit a .3.733910 l .8 2022-05-05 2022-05-05 Orders Doctor LUIS 1.2.840.114 429795 493 Univers 00:00:00 00:00:00 Only Unassigned, TAYLOR 350.1.13.10 [facility] 4.2.7.2.686 Lj as 914.4472677 [place] [address] [place] 2022-05-05 2022-05-05 Documentat [place], 1.2.840.1 782502475 335 3227954 Methodi 00:00:00 00:00:00 ion [address]ina 05218.1.[address] 3.430.2.7 Hospit a .3.461424 l .8 2022-05-05 2022-05-05 Telephone [place], 1.2.840.1 [id number] 2099 097854 Methodi 00:00:00 00:00:[address] 3.430.2.7 Hospit a .3.289723 l .8 2022-05-04 2022-05-04 Telemedici Nelda, 1.2.840.1 [id number] 21 09132384 Methodi 13:15:00 13:38:04 ne Fernandez 69065.1.[address] [place] 3.430.2.7 Hospit a .3.255946 l .8 2022-05-04 2022-05-04 Telemedici Nelda, 1.2.840.1 [id number] 21 [id number] Methodi 13:15:00 13:38:04 [address] Fernandez 25211.1.[address] [place] 3.430.2.7 Hospit a .3.407411 l .8 2022-05-03 2022-05-03 Telephone [place], 1.2.840.1 [id number] 2099 626086 Methodi 00:00:00 00:00:[address] 3.430.2.7 Hospit a .3.314114 l .8 2022-05-03 2022-05-03 Telephone [place], 1.2.840.1 [id number] 2099 381760 Methodi 00:00:00 00:00:[address] 3.430.2.7 Hospit a .3.764900 l .8 2022-04-26 2022-04-27 [facility] Cesar Hamilton 1.2.840.1 93846 1035 [id number] Methodi 05:54:00 12:22:00 Encounter Demi Cuello 88513.1.1 [address] 3.430.2.7 Hospita .3.385878 l .8 2022-04-26 2022-04-27 [facility] Cesar Hamilton 1.2.840.1 03899 1035 [id number] Methodi 05:54:00 12:22:00 Encounter Demi Cuello 22375.1.1 105 Aft[address] PazErin 3.430.2.7 Hospita .3.288301 l .8 2022-04-26 2022-04-26 Anesthesia Luis Valencia 1.2.840.1 1 [id number] 0245701586 Methodi 08:11:00 10:44:00 Event Maryellen Roach 28940.1.[address] 3.430.2.7 Hospit a .3.914366 l .8 2022-04-26 2022-04-26 Anesthesia Luis Valencia 1.2.840.1 1 49447722 4759464839 Methodi 08:11:00 10:44:00 Event Maryellen Roach 93009.1.[address] 3.430.2.7 Hospit a .3.975751 l .8 2022-04-26 2022-04-26 Surgery [facility], 1.2.840.1 [id number] 518971 8863 Methodi 08:00:00 10:05:[address] 3.430.2.7 Hospit a .3.764358 l .8 2022-04-26 2022-04-26 Surgery [facility], 1.2.840.1 [id number] 292203 1122 Methodi 08:00:00 10:05:[address] 3.430.2.7 Hospit a .3.316101 l .8 2022-04-26 2022-04-26 Documentat Loree, 1.2.840.1 029476570 190 5080732 Methodi 00:00:00 00:00:00 ion Angelica 49736.1.[address] 3.430.2.7 Hospit a .3.459604 l .8 2022-04-26 2022-04-26 Documentat Loree, 1.2.840.1 798025595 536 6053984 Methodi 00:00:00 00:00:00 ion Angelica 25143.1.[address] 3.430.2.7 Hospit a .3.524774 l .8 2022-04-26 2022-04-26 Travel 1.2.840.1 1.2.727.337 4193 994984 Methodi 00:00:00 00:00:[address] 3.430.2.7 0.2.7.3.698 Ho spita .3.655269 084.8 l .8 2022-04-26 2022-04-26 Documentat Loree, 1.2.840.1 811470513 973 9718170 Methodi 00:00:00 00:00:00 ion Angelica 44629.1.[address] 3.430.2.7 Hospit a .3.306361 l .8 2022-04-26 2022-04-26 Documentat Loree, 1.2.840.1 274993813 740 2721558 Methodi 00:00:00 00:00:00 ion Angelica 60538.1.[address] 3.430.2.7 Hospit a .3.661825 l .8 2022-04-26 2022-04-26 Travel 1.2.840.1 1.2.281.866 9901 954792 Methodi 00:00:00 00:00:[address] 3.430.2.7 0.2.7.3.698 [facility] .8 2022-04-24 2022-04-24 [facility], 1.2.840.1 [id number] 11123 Methodi 10:00:00 23:59:00 Encounter Nawaf Blair 31624.1.[address] 3.430.2.7 Hospit a .3.556293 l .8 2022-04-24 2022-04-24 [facility], 1.2.840.1 [id number] 55235 Methodi 10:00:00 23:59:00 Encounter Nawaf Rudolph50.1.[address] 3.430.2.7 Hospit a .3.147301 l .8 2022-04-24 2022-04-24 Office Beulah Vyas 1.2.840.1 87931 1234 [id number] Methodi 13:00:00 13:15:00 Visit Simran Carr 51247.1.[address] 3.430.2.7 Hospit a .3.269713 l .8 2022-04-24 2022-04-24 Office Beulah Vyas 1.2.840.1 27693 1234 6062424080 Methodi 13:00:00 13:15:00 Visit Simran Carr 16975.1.[address] 3.430.2.7 Hospit a .3.801915 l .8 2022-04-24 2022-04-24 [facility], 1.2.840.1 [id number] 29448 Methodi 08:30:00 09:59:00 Encounter Nawaf Blair 18693.1.[address] 3.430.2.7 Hospit a .3.055671 l .8 2022-04-24 2022-04-24 [facility], 1.2.840.1 [id number] 97 Methodi 08:30:00 09:59:00 Encounter Nawaf Blair 83025.1.[address] 3.430.2.7 Hospit a .3.121559 l .8 2022-04-24 2022-04-24 [facility], 1.2.840.1 469875001 56859 15582 Methodi 06:42:07 08:29:00 Encounter Nawaf Blair 70957.1.[address] 3.430.2.7 Hospit a .3.057515 l .8 2022-04-24 2022-04-24 [facility], 1.2.840.1 [id number] 45823 62536 Methodi 06:42:07 08:29:00 Encounter Nawaf Blair 44110.1.[address] 3.430.2.7 Hospit a .3.157651 l .8 2022-04-24 2022-04-24 Outpatient [facility] [id number] [address] [place] [address] 00:00:00 00:00:00 NAWAF [address] 2022-04-24 2022-04-24 Orders Loree, 1.2.840.1 [id number] 765152 8492 Methodi 00:00:00 00:00:00 Only Angelica 40769.1.[address] 3.430.2.7 Hospit a .3.032318 l .8 2022-04-24 2022-04-24 Refill Loree, 1.2.840.1 292281816 867112 8324 Methodi 00:00:00 00:00:[address] 3.430.2.7 Hospit a .3.612276 l .8 2022-04-24 2022-04-24 Refill Loree, 1.2.840.1 074530651 912320 9517 Methodi 00:00:00 00:00:[address] 3.430.2.7 Hospit a .3.877011 l .8 2022-04-24 2022-04-24 Travel 1.2.840.1 1.2.937.441 8579 841452 Methodi 00:00:00 00:00:[address] 3.430.2.7 0.2.7.3.698 Ho spita .3.297312 084.8 l .8 2022-04-24 2022-04-24 Orders Loree, 1.2.840.1 496195761 664630 3013 Methodi 00:00:00 00:00:00 Only Angelica 81915.1.[address] 3.430.2.7 Hospit a .3.100286 l .8 2022-04-24 2022-04-24 Refill Loree, 1.2.840.1 518208544 479428 8254 Methodi 00:00:00 00:00:[address] 3.430.2.7 Hospit a .3.997621 l .8 2022-04-24 2022-04-24 Refill Loree, 1.2.840.1 786832588 095105 8003 Methodi 00:00:00 00:00:[address] 3.430.2.7 Hospit a .3.303008 l .8 2022-04-24 2022-04-24 Travel 1.2.840.1 1.2.396.045 7407 088975 Methodi 00:00:00 00:00:[address] 3.430.2.7 0.2.7.3.698 Ho spita .3.726579 084.8 l .8 2022-04-20 2022-04-20 Telephone Darci, 1.2.840.1 [id number] 2099 793968 Methodi 00:00:00 00:00:[address] 3.430.2.7 Hospit a .3.897526 l .8 2022-04-20 2022-04-20 Telephone Darci, 1.2.840.1 910253710 2099 225395 Methodi 00:00:00 00:00:[address] 3.430.2.7 Hospit a .3.308205 l .8 2022-04-12 2022-04-12 Pre-Admiss Cesar Hamilton 1.2.840.1 104 305753 6454040681 Methodi 12:00:00 13:00:00 ion Sluder, Maryellen Shanti 67545.1.[address] Testing 3.430.2.7 Hospit a .3.697532 l .8 2022-04-12 2022-04-12 Pre-Admiss Cesar Hamilton 1.2.840.1 104 749632 0987908264 Methodi 12:00:00 13:00:00 Mary[address] Maher [address]441.1.[address] Testing 3.430.2.7 Hospit a .3.433641 l .8 2022-04-12 2022-04-12 Travel 1.2.840.1 1.2.091.001 2350 087076 Methodi 00:00:00 00:00:[address] 3.430.2.7 0.2.7.3.698 Ho spita .3.722736 084.8 l .8 2022-04-12 2022-04-12 Travel 1.2.840.1 1.2.256.791 3665 396953 Methodi 00:00:00 00:00:[address] 3.430.2.7 0.2.7.3.698 Ho spita .3.140552 084.8 l .8 2022-04-07 2022-04-07 Travel 1.2.840.1 1.2.523.877 6512 116667 Methodi 00:00:00 00:00:[address] 3.430.2.7 0.2.7.3.698 Ho spita .3.164049 084.8 l .8 2022-04-07 2022-04-07 Travel 1.2.840.1 1.2.509.298 2648 589409 Methodi 00:00:00 00:00:[address] 3.430.2.7 0.2.7.3.698 Ho spita .3.712372 084.8 l .8 2022-04-04 2022-04-04 Documentat Loree, 1.2.840.1 527174118 530 8299106 Methodi 00:00:00 00:00:00 ion Angelica 41292.1.[address] 3.430.2.7 Hospit a .3.354318 l .8 2022-04-04 2022-04-04 Refill Loree, 1.2.840.1 611415869 494992 4145 Methodi 00:00:00 00:00:[address] 3.430.2.7 Hospit a .3.152701 l .8 2022-04-04 2022-04-04 Refill Loree, 1.2.840.1 308256578 033841 7425 Methodi 00:00:00 00:00:[address] 3.430.2.7 Hospit a .3.748721 l .8 2022-04-04 2022-04-04 Documentat Loree, 1.2.840.1 580244609 966 5940427 Methodi 00:00:00 00:00:00 ion Angelica [address]663.1.[address] 3.430.2.7 Hospit a .3.663992 l .8 2022-04-04 2022-04-04 Refill Loree, 1.2.840.1 469920495 973547 8692 Methodi 00:00:00 00:00:[address] 3.430.2.7 Hospit a .3.570643 l .8 2022-04-04 2022-04-04 Refill Loree, 1.2.840.1 962948032 711061 7740 Methodi 00:00:00 00:00:[address] 3.430.2.7 Hospit a .3.185074 l .8 2022-04-03 2022-04-03 Outpatient R RADIOLOGY [facility] 34666 32187 Univers 12:15:13 23:59:00 ity of [facility] 2022-04-03 2022-04-03 Hospital Radiology [facility] 1.2.840.114 999 49523 Univers 12:15:13 23:59:00 Encounter ANGLEARVIN 350.1.13.10 ity of [place] 4.2.7.2.686 [facility] [id number] [facility] [address] 2022-04-03 2022-04-03 Orders Doctor LUIS 1.2.840.114 310782 755 Univers 00:00:00 00:00:00 Only Unassigned, TAYLOR 350.1.13.10 [facility] 4.2.7[facility]2.[facility] Lj [phone] [facility] [address] 2022-03-26 2022-04-02 [facility] 1.2.840.1 [id number] [id number] Methodi 09:00:00 12:18:00 Encounter Rickie Santana 14466.1.[address] 3.430.2.7 Hospit a .3.758104 l .8 2022-03-26 2022-04-02 [facility] 1.2.840.1 198140191 89427662 Methodi 09:00:00 12:18:00 Encounter Rickie Santana 71687.1.[address] 3.430.2.7 Hospit a .3.726137 l .8 2022-04-02 2022-04-02 Orders Edith, 1.2.840.1 358666002 12255 01058 Methodi 00:00:00 00:00:00 Only Suki 80244.1.[address] Varinder 3.430.2.7 Hospit a .3.127332 l .8 2022-04-02 2022-04-02 Orders Edith, 1.2.840.1 806125423 40694 Methodi 00:00:00 00:00:00 Only Timad 44512.1.[address] Varinder 3.430.2.7 Hospit a .3.094496 l .8 2022-03-31 2022-03-31 Documentat James, 1.2.840.1 942342231 774 1234379 Methodi 00:00:00 00:00:00 ion Solmaz 48038.1.[address] 3.430.2.7 Hospit a .3.402612 l .8 2022-03-31 2022-03-31 Documentat James, 1.2.840.1 266105362 029 1017592 Methodi 00:00:00 00:00:00 ion Solmaz 36930.1.[address] 3.430.2.7 Hospit a .3.292465 l .8 2022-03-28 2022-03-28 Orders Doctor LUIS 1.2.840.114 620751 795 Univers 00:00:00 00:00:00 Only Unassigned, TAYLOR 350.1.13.10 ity of [place] [facility] 4.2.7.2.686 Lj as 258.0222118 [place] [address] [address] 2022-03-27 2022-03-27 Anesthesia Demetrius Jaquez 1.2.840.1 980337837 2234104431 Methodi 13:40:00 14:48:00 Event Dionne Patiño 54418.1.[address] 3.430.2.7 Hospit a .3.036917 l .8 2022-03-27 2022-03-27 Anesthesia Demetrius Jaquez 1.2.840.1 355214144 9529483167 Methodi 13:40:00 14:48:00 Event Dionne Patiño 25334.1.[address] 3.430.2.7 Hospit a .3.859985 l .8 2022-03-27 2022-03-27 Surgery Nelda, 1.2.840.1 839035021 28326 75836 Methodi 12:30:00 13:30:[address] [place] 3.430.2.7 Hospit a .3.405550 l .8 2022-03-27 2022-03-27 Surgery Nelda, 1.2.840.1 [id number] 02356 87216 Methodi 12:30:00 13:30:[address] [place] 3.430.2.7 Hospit a .3.923498 l .8 2022-03-26 2022-03-26 Travel 1.2.840.1 1.2.402.545 3869 929785 Methodi 00:00:00 00:00:[address] 3.430.2.7 0.2.7.3.698 Ho spita .3.818405 084.8 l .8 2022-03-26 2022-03-26 Travel 1.2.840.1 1.2.246.281 5919 033531 Methodi 00:00:00 00:00:[address] 3.430.2.7 0.2.7.3.698 Ho spita .3.975937 084.8 l .8 2022-03-22 2022-03-22 Telephone Jinny, 1.2.840.1 572755478 382 8411728 Methodi 00:00:00 00:00:[address] 3.430.2.7 Hospit a .3.533003 l .8 2022-03-22 2022-03-22 Telephone Stearns, 1.2.840.1 900699197 075 7612444 Methodi 00:00:00 00:00:[address] 3.430.2.7 Hospit a .3.244835 l .8 2022-03-17 2022-03-17 Emergency X SINGER [facility] ERT [id number] 23 Univers 14:59:00 18:15:00 EDWARD quintero of [facility] 2022-03-17 2022-03-17 Emergency Singer [facility] 1.2.662.803 0314 80065 Univers 14:59:00 18:15:00 Edward MENCHACA 350.1.13.10 i mary [facility] 4.2.7.2.686 [facility] [id number] [address] 2022-03-16 2022-03-16 Office Nelda, 1.2.840.1 [id number] 03631 Methodi 10:30:00 10:30:00 Visit Fernandez 14113.1.[address] [place] 3.430.2.7 Hospit a .3.401288 l .8 2022-03-16 2022-03-16 Office Nelda, 1.2.840.1 [id number] 22730 Methodi 10:30:00 10:30:00 Visit Fernandez 17508.1.[address] [place] 3.430.2.7 Hospit a .3.530376 l .8 2022-03-16 2022-03-16 Travel 1.2.840.1 1.2.335.000 2482 018446 Methodi 00:00:00 00:00:[address] 3.430.2.7 0.2.7.3.698 Ho spita .3.492251 084.8 l .8 2022-03-16 2022-03-16 Travel 1.2.840.1 1.2.460.760 7173 892363 Methodi 00:00:00 00:00:[address] 3.430.2.7 0.2.7.3.698 Ho spita .3.851835 084.8 l .8 2022-03-13 2022-03-13 [facility], 1.2.840.1 [id number] 21 [id number] Methodi 11:20:00 12:19:07 ne Rainer H. 67637.1.[address] 3.430.2.7 Hospit a .3.336434 l .8 2022-03-13 2022-03-13 [facility], 1.2.840.1 [id number] 21 48391001 Methodi 11:20:00 12:19:07 ne Rainer H. 40917.1.[address] 3.430.2.7 Hospit a .3.902653 l .8 2022-03-04 2022-03-04 Emergency X LILLIANGA [facility] ERT [id number] 07 Univers 00:07:00 04:48:00 RAKEL quintero [facility] 2022-03-04 2022-03-04 [facility] 1.2.844.252 7775 64672 Univers 00:07:00 04:48:00 Rakel MENCHACA 350.1.13.10 ity of [place] 4.2.7.2.686 [facility] [id number] [place] 708834 Branch 2022-03-01 2022-03-01 Emergency X [facility] ERT [id number] 67 Univers 14:26:00 16:06:00 EDWARD quintero [facility] 2022-03-01 2022-03-01 [facility] 1.2.232.758 2247 28176 Univers 14:26:00 16:06:00 Edward MENCHACA 350.1.13.10 i ty of [place] 4.2.7.2.686 [facility] [phone] [facility] [address] 2022-02-28 2022-02-28 Telephone Wing, 1.2.840.1 [id number] 2100 296104 Methodi 00:00:00 00:00:[address] 3.430.2.7 Hospit a .3.893627 l .8 2022-02-28 2022-02-28 Telephone Wing 1.2.840.1 [id number] 2099 982205 Methodi 00:00:00 00:00:[address] 3.430.2.7 Hospit a .3.754338 l .8 2022-02-21 2022-02-21 Patient Doctor LUIS 1.2.840.114 [id number] 35 Univers 00:00:00 00:00:00 Secure Msg Unassigned, TAYLOR 350.1.13.10 ity of [facility] 4.2.7.2.686 Lj [id number] [facility] 019 Branch 2022-02-21 2022-02-21 Telephone Darci 1.2.840.1 [id number] 2099 [id number] Methodi 00:00:00 00:00:[address] 3.430.2.7 Hospit a .3.949707 l .8 2022-02-21 2022-02-21 Telephone Darci, 1.2.840.1 [id number] 2099 790755 Methodi 00:00:00 00:00:[address] 3.430.2.7 Hospit a .3.872722 l .8 2022-02-13 2022-02-13 Telephone Famalyshas, 1.2.840.1 [id number] 82927671 Methodi 00:00:00 00:00:[address] 3.430.2.7 Hospit a .3.735746 l .8 2022-02-13 2022-02-13 Telephone Famanias, 1.2.840.1 [id number] 51954377 Methodi 00:00:00 00:00:[address] 3.430.2.7 Hospit a .3.246657 l .8 2022-02-10 2022-02-10 Telephone Murphy, 1.2.840.1 [id number] 2099 445148 Methodi 00:00:00 00:00:[address] 3.430.2.7 Hospit a .3.441799 l .8 2022-02-10 2022-02-10 Orders Diazs, 1.2.840.1 [id number] 2099 155890 Methodi 00:00:00 00:00:00 Only Brehuna 82458.1.[address] 3.430.2.7 Hospit a .3.120727 l .8 2022-02-10 2022-02-10 Telephone Murphy, 1.2.840.1 [id number] 2099 661134 Methodi 00:00:00 00:00:[address] 3.430.2.7 Hospit a .3.138443 l .8 2022-02-10 2022-02-10 Orders Diazs, 1.2.840.1 [id number] 2100 559672 Methodi 00:00:00 00:00:00 Only Brehuna 17779.1.[address] 3.430.2.7 Hospit a .3.732787 l .8 2022-02-03 2022-02-03 Orders Doctor LUIS 1.2.840.114 [id number] 578 Univers 00:00:00 00:00:00 Only Unassigned, TAYLOR 350.1.13.10 ity of [place] [facility] 4.2.7.2.686 Lj as [id number] [place] [address] Branch 2022-01-24 2022-01-24 Orders Vipin, 1.2.840.1 [id number] 2099 524601 Methodi 00:00:00 00:00:00 Only Brehuna 51278.1.[address] 3.430.2.7 Hospit a .3.736875 l .8 2022-01-24 2022-01-24 Documentat Jeanne, 1.2.840.1 [id number] 494 0672415 Methodi 00:00:00 00:00:00 ion Mariola 69335.1.[address] 3.430.2.7 Hospit a .3.657677 l .8 2022-01-24 2022-01-24 Orders Vipin, 1.2.840.1 [id number] 2099 133076 Methodi 00:00:00 00:00:00 Only Brehuna 28792.1.[address] 3.430.2.7 Hospit a .3.398486 l .8 2022-01-24 2022-01-24 Documentat Jeanne, 1.2.840.1 [id number] 887 [id number] Methodi 00:00:00 00:00:00 ion Mariola 08552.1.[address] 3.430.2.7 Hospit a .3.035037 l .8 2022-01-23 2022-01-23 [facility], 1.2.840.1 [id number] 46257 96804 Methodi 09:00:00 23:59:00 Encounter Nawaf Blair 72543.1.[address] 3.430.2.7 Hospit a .3.321850 l .8 2022-01-23 2022-01-23 [facility], 1.2.840.1 [id number] 24563 56122 Methodi 09:00:00 23:59:00 Encounter Nawaf Blair 81847.1.[address] 3.430.2.7 Hospit a .3.191782 l .8 2022-01-23 2022-01-23 Nutrition Asael, 1.2.840.1 [id number] 2099 174946 Methodi 14:30:00 15:00:00 Riojas Avtar 86449.1.1 647 s t 3.430.2.7 Hospit a .3.322974 l .8 2022-01-23 2022-01-23 Nutrition Asael, 1.2.840.1 [id number] 2099 949900 Methodi 14:30:00 15:00:00 Riojas Avtar 75794.1.1 647 s t 3.430.2.7 Hospit a .3.928962 l .8 2022-01-23 2022-01-23 Office Pauly Alpesh 1.2.840.1 [id number] 469 7840790 Methodi 13:45:00 14:00:00 Visit Beulah Vyasd 24543.1.[address] 3.430.2.7 Hospit a .3.619791 l .8 2022-01-23 2022-01-23 Office Pauly Alpesh 1.2.840.1 [id number] 920 1560882 Methodi 13:45:00 14:00:00 Visit Beulah Vyasd 28000.1.[address] 3.430.2.7 Hospit a .3.701883 l .8 2022-01-23 2022-01-23 [facility] [place], 1.2.840.1 [id number] 96133 05851 Methodi 07:23:52 08:59:00 Encounter Nawaf Blair 84368.1.[address] 3.430.2.7 Hospit a .3.833312 l .8 2022-01-23 2022-01-23 [facility], 1.2.840.1 [id number] 99687 Methodi 07:23:52 08:59:00 Encounter Nawaf Lu. 06668.1.[address] 3.430.2.7 Hospit a .3.379999 l .8 2022-01-23 2022-01-23 Documentat Rivon, 1.2.840.1 [id number] 203 0570490 Methodi 00:00:00 00:00:00 ion Mariola 14200.1.[address] 3.430.2.7 Hospit a .3.170442 l .8 2022-01-23 2022-01-23 Telephone Gunnells, 1.2.840.1 [id number] 31404503 Methodi 00:00:00 00:00:[address] 3.430.2.7 Hospit a .3.375678 l .8 2022-01-23 2022-01-23 Orders Gunnells, 1.2.840.1 [id number] 2099 971424 Methodi 00:00:00 00:00:00 Only Brehuna 84151.1.[address] 3.430.2.7 Hospit a .3.675759 l .8 2022-01-23 2022-01-23 Travel 1.2.840.1 1.2.324.728 4074 843702 Methodi 00:00:00 00:00:[address] 3.430.2.7 0.2.7.3.698 Ho spita .3.340113 084.8 l .8 2022-01-23 2022-01-23 [facility] [id number] 181 [place] 00:00:00 00:00:00 NAWAF Hidalgo Method i st 2022-01-23 2022-01-23 Documentat Rivon, 1.2.840.1 [id number] 207 [id number] Methodi 00:00:00 00:00:00 ion Mariola 42251.1.[address] 3.430.2.7 Hospit a .3.969666 l .8 2022-01-23 2022-01-23 Telephone Gunayannas, 1.2.840.1 [id number] 06290632 Methodi 00:00:00 00:00:[address] 3.430.2.7 Hospit a .3.596367 l .8 2022-01-23 2022-01-23 Orders Vipin, 1.2.840.1 [id number] 13990909 Methodi 00:00:00 00:00:00 Only Josiah 47345.1.[address] 3.430.2.7 Hospit a .3.489185 l .8 2022-01-23 2022-01-23 Travel 1.2.840.1 1.2.290.119 4525 492348 Methodi 00:00:00 00:00:[address] 3.430.2.7 0.2.7.3.698 Ho spita .3.549977 084.8 l .8 2022-01-20 2022-01-20 Telephone Chinmay, 1.2.840.1 [id number] 2099925 Methodi 00:00:00 00:00:[address] 3.430.2.7 Hospit a .3.737451 l .8 2022-01-20 2022-01-20 Telephone Moy, 1.2.840.1 791996595 2099925 Methodi 00:00:00 00:00:[address] 3.430.2.7 Hospit a .3.975038 l .8 2022-01-18 2022-01-18 Telephone Moy, 1.2.840.1 [id number] 2099739 Methodi 00:00:00 00:00:[address] 3.430.2.7 Hospit a .3.701276 l .8 2022-01-18 2022-01-18 Telephone Moy, 1.2.840.1 [id number] 2099739 Methodi 00:00:00 00:00:[address] 3.430.2.7 Hospit a .3.554271 l .8 2022-01-13 2022-01-13 Orders [place], 1.2.840.1 112098347 362139 2759 Methodi 00:00:00 00:00:00 Only Gina 33658.1.[address] 3.430.2.7 Hospit a .3.254451 l .8 2022-01-13 2022-01-13 Orders [place], 1.2.840.1 [id number] 571501 6347 Methodi 00:00:00 00:00:00 Only Gina 29210.1.[address] 3.430.2.7 Hospit a .3.289164 l .8 2022-01-13 2022-01-13 Orders [place], 1.2.840.1 [id number] 777728 5660 Methodi 00:00:00 00:00:00 Only Gina 72521.1.[address] 3.430.2.7 Hospit a .3.023818 l .8 2022-01-13 2022-01-13 Orders [place], 1.2.840.1 [id number] 7322 Methodi 00:00:00 00:00:00 [address] Gina 58094.1.[address] 3.430.2.7 Hospit a .3.326039 l .8 2022-01-10 2022-01-10 [facility], 1.2.840.1 [id number] 06401 73839 Methodi 09:40:00 10:18:37 Visit [facility]. [address]444.1.[address] 3.430.2.7 Hospit a .3.652721 l .8 2022-01-10 2022-01-10 [facility], 1.2.840.1 [id number] 21310 78143 Methodi 09:40:00 10:18:37 Visit Rainer H. 66355.1.[address] 3.430.2.7 Hospit a .3.477109 l .8 2022-01-10 2022-01-10 Travel 1.2.840.1 1.2.569.337 0246 370658 Methodi 00:00:00 00:00:[address] 3.430.2.7 0.2.7.3.698 Ho spita .3.544209 084.8 l .8 2022-01-10 2022-01-10 Travel 1.2.840.1 1.2.882.781 2143 374463 Methodi 00:00:00 00:00:[address] 3.430.2.7 0.2.7.3.698 Ho spita .3.419182 084.8 l .8 2022-01-04 2022-01-04 Documentat Breezy, 1.2.840.1 [id number] 21 [id number] Methodi 00:00:00 00:00:00 ion Fanta 92647.1.[address] 3.430.2.7 Hospit a .3.601044 l .8 2022-01-04 2022-01-04 Documentat Breezy, 1.2.840.1 [id number] 21 [id number] Methodi 00:00:00 00:00:00 ion Fanta 22441.1.[address] 3.430.2.7 Hospit a .3.328848 l .8 2022-01-04 2022-01-04 Documentat Breezy, 1.2.840.1 538153243 21 [id number] Methodi 00:00:00 00:00:00 ion Fanta 61262.1.[address] 3.430.2.7 Hospit a .3.464412 l .8 2022-01-04 2022-01-04 Documentat Breezy, 1.2.840.1 554358039 21 [id number] Methodi 00:00:00 00:00:00 ion Fanta 82303.1.[address] 3.430.2.7 Hospit a .3.311408 l .8 2022-01-02 2022-01-02 Transition NANDA Yang 1.2.840.114 986 41660 Univers 00:00:00 00:00:00 of Care Carlos DESHPANDE 350.1.13.10 ity [place] [phone] [facility] [address] Branch 2021-12-27 2021-12-30 Outpatient X NATHALY [facility] AJ [id number] 991 Univers 11:22:00 11:45:00 PREETI ity of [facility] 2021-12-27 2021-12-30 Hospital Stuart Shaikh [facility] 1.2.840.1 14 [id number] Univers 11:22:00 11:45:00 Encounter Ritchie Gacria 350.1.13.10 ity of [place] Andersen 4.2.7.2.686 [facility] [phone] [facility] 081 Branch 2021-12-20 2021-12-20 Documentat Breezy, 1.2.840.1 [id number] 21 [id number] Methodi 00:00:00 00:00:[address].1.[address] 3.430.2.7 Hospit a .3.270874 l .8 2021-12-20 2021-12-20 Documentat [place]zy, 1.2.840.1 [id number] 21 [id number] Methodi 00:00:00 00:00:00 ion Fanta [address]106.1.[address] 3.430.2.7 Hospit a .3.693591 l .8 2021-12-16 2021-12-16 Orders Doctor LUIS 1.2.840.114 [id number] 96 Univers 00:00:00 00:00:00 Only Unassigned, TAYLOR 350.1.13.10 ity of [place] [facility] 4.2.7.2.686 Lj as [phone] [facility] 009 Branch 2021-12-12 2021-12-12 Documentat Breezy, 1.2.840.1 [id number] 21 [id number] Methodi 00:00:00 00:00:00 ion Fanta 35483.1.[address] 3.430.2.7 Hospit a .3.750401 l .8 2021-12-12 2021-12-12 Documentat Breezy, 1.2.840.1 473992600 21 [id number] Methodi 00:00:00 00:00:00 ion Fanta 96728.1.[address] 3.430.2.7 Hospit a .3.681033 l .8 2021-12-09 2021-12-09 Telephone Loree, 1.2.840.1 [id number] 2099062 Methodi 00:00:00 00:00:[address] 3.430.2.7 Hospit a .3.396337 l .8 2021-12-09 2021-12-09 Telephone Loree, 1.2.840.1 [id number] 2099062 Methodi 00:00:00 00:00:[address] 3.430.2.7 Hospit a .3.099036 l .8 2021-12-06 2021-12-06 Transition NANDA Yang 1.2.840.114 979 27605 Univers 00:00:00 00:00:00 of Care Carlos DESHPANDE 350.1.13.10 ity [phone] [place] [address] Branch 2021-12-05 2021-12-05 [facility], 1.2.840.1 [id number] 100 [id number] Methodi 10:21:56 23:59:00 Encounter Simran 06446.1.[address] 3.430.2.7 Hospit a .3.625961 l .8 2021-12-05 2021-12-05 [facility], 1.2.840.1 [id number] 887 6685808 Methodi 10:21:56 23:59:00 Encounter Zuleikamad 36507.1.[address] 3.430.2.7 Hospit a .3.840548 l .8 2021-12-05 2021-12-05 Travel 1.2.840.1 1.2.375.437 8994 546851 Methodi 00:00:00 00:00:[address] 3.430.2.7 0.2.7.3.698 Ho spita .3.587901 084.8 l .8 2021-12-05 2021-12-05 Outpatient PERRY, [facility] [id number] 28307 Mcbain 00:00:00 00:00:00 ZULEIKAMAD [address] 2021-12-05 2021-12-05 Outpatient KINGSLEY, [facility] [id number] 683 Mcbain 00:00:00 00:00:00 NAWAF BruceTierney [facility] 2021-12-05 2021-12-05 Travel 1.2.840.1 1.2.183.895 7324 063538 Methodi 00:00:00 00:00:[address] 3.430.2.7 0.2.7.3.698 Ho spita .3.974843 084.8 l .8 2021-12-03 2021-12-04 Outpatient X ISABELL [facility] [id number] 751 Univers 17:03:00 18:10:00 RITCHIE itbrigitte of [facility] 2021-12-03 2021-12-04 Emergency Carol Patiño [facility] 1.2.840 .114 [id number] Univers 17:03:00 18:10:00 Ritchie Garcia 350.1.13.10 ity of [place] 4.2.7.2.686 [facility] [phone] [facility] 080 Branch 2021-12-03 2021-12-03 Orders Doctor LUIS 1.2.840.114 [id number] 11 Univers 00:00:00 00:00:00 Only Unassigned, TAYLOR 350.1.13.10 ity of [place] [facility] 4.2.7.2.686 [facility] [phone] [facility] 009 Branch 2021-12-02 2021-12-02 Telephone Loree, 1.2.840.1 [id number] 2099 011255 Methodi 00:00:00 00:00:[address] 3.430.2.7 Hospit a .3.286007 l .8 2021-12-02 2021-12-02 Telephone Loree, 1.2.840.1 [id number] 2099 764136 Methodi 00:00:00 00:00:[address] 3.430.2.7 Hospit a .3.152703 l .8 2021-12-01 2021-12-01 Orders Doctor LUIS 1.2.840.114 [id number] 83 Univers 00:00:00 00:00:00 Only Unassigned, TAYLOR 350.1.13.10 ity of [place] [facility] 4.2.7.2.686 Lj as [phone] [facility] 009 Branch 2021-12-01 2021-12-01 Telephone Leach, 1.2.840.1 [id number] 029 8464705 Methodi 00:00:00 00:00:[address] 3.430.2.7 Hospit a .3.963626 l .8 2021-12-01 2021-12-01 Telephone Leach, 1.2.840.1 [id number] 464 4539296 Methodi 00:00:00 00:00:[address] 3.430.2.7 Hospit a .3.580862 l .8 2021-11-28 2021-11-28 Transition CeliaNANDA cantrell 1.2.840.114 977 75187 Univers 00:00:00 00:00:00 of Care Carlos DESHPANDE 350.1.13.10 ity [place] [phone] [facility] 403 [address] 2021-11-24 2021-11-26 Outpatient [facility] [id number] 6779 Univers 02:59:00 16:39:00 MERCY ity of [facility] 2021-11-24 2021-11-26 [facility] 1.2.903.224 7490 1703 Univers 02:59:00 16:39:00 Encounter Jose Cruz TRACEY 350.1.13.10 [place] [phone] [facility] 081 Branch 2021-11-12 2021-11-12 Emergency X SANJU [facility] ERT [id number] 98 Univers 12:18:00 15:26:00 [facility] 2021-11-12 2021-11-12 Emergency [facility] 1.2.452.602 3654 7189 Univers 12:18:00 15:26:00 Sean Benites TRACEY 350.1.13.10 i ty of [place] 4.2.7.2.686 [facility] [phone] [address] 2021-11-01 2021-11-01 Telephone [place], 1.2.840.1 [id number] 2100 165279 Methodi 00:00:00 00:00:[address] 3.430.2.7 Hospit a .3.117780 l .8 2021-10-31 2021-10-31 Telephone Famanias, 1.2.840.1 [id number] 21 56874409 Methodi 00:00:00 00:00:[address] 3.430.2.7 Hospit a .3.241528 l .8 2021-10-14 2021-10-14 Telephone Picquet, 1.2.840.1 [id number] 877 7572495 Methodi 00:00:00 00:00:[address] 3.430.2.7 Hospit a .3.370334 l .8 2021-09-14 2021-09-14 Emergency X [facility] ERT [id number] 50 Univers 12:28:00 15:47:00 [facility] 2021-09-14 2021-09-14 Emergency [facility] 1.2.671.429 9061 5866 [facility] 12:28:00 15:47:00 Sean MENCHACA 350.1.13.10 i ty of [place] 4.2.7.2.686 [facility] [phone] [address] 2021-09-13 2021-09-13 Telephone Loree, 1.2.840.1 [id number] 2100 508508 Methodi 00:00:00 00:00:[address] 3.430.2.7 Hospit a .3.726271 l .8 2021-09-13 2021-09-13 Telephone Miguel, 1.2.840.1 [id number] 2099 337731 Methodi 00:00:00 00:00:[address] 3.430.2.7 Hospit a .3.588811 l .8 2021-09-12 2021-09-12 Telephone Kwesi, 1.2.840.1 [id number] 2099817 Methodi 00:00:00 00:00:[address] 3.430.2.7 Hospit a .3.519471 l .8 2021-09-12 2021-09-12 Telephone Jones, 1.2.840.1 [id number] 2099814 Methodi 00:00:00 00:00:[address] 3.430.2.7 Hospit a .3.937006 l .8 2021-09-08 2021-09-08 Telephone Moe, 1.2.840.1 [id number] 751 4543075 Methodi 00:00:00 00:00:[address] 3.430.2.7 Hospit a .3.927510 l .8 2021-09-07 2021-09-07 Transition NANDA Avila 1.2.840.114 95 566579 Univers 00:00:00 00:00:00 of Care Irasema DESHPANDE 350.1.13.10 i ty [place] [phone] [facility] 403 [address] 2021-09-07 2021-09-07 Telephone Miguel, 1.2.840.1 [id number] 2099 747956 Methodi 00:00:00 00:00:[address] 3.430.2.7 Hospit a .3.529523 l .8 2021-09-01 2021-09-06 [facility] [id number] 575 Univers 18:13:00 17:25:00 JOSE CRUZ ity [facility] 2021-09-01 2021-09-06 Hospital Corby Leggett [facility] 1.2.8 40.114 [id number] [facility] 18:13:00 17:25:00 Encounter Jose Cruz Garcia 350.1.13.10 ity [facility] 4.2.7.2.686 [facility] [phone] [place] [address] Branch 2021-09-02 2021-09-02 Telephone Loree, 1.2.840.1 [id number] 2[address] [id number] Methodi 00:00:00 00:00:[address] 3.430.2.7 Hospit a .3.894206 l .8 2021-09-01 2021-09-01 Telephone Loree, 1.2.840.1 [id number] 2100 290727 Methodi 00:00:00 00:00:[address] 3.430.2.7 Hospit a .3.697886 l .8 2021-08-18 2021-08-18 Telephone Famanias, 1.2.840.1 [id number] 21 [id number] Methodi 00:00:00 00:00:[address] 3.430.2.7 Hospit a .3.223964 l .8 2021-08-17 2021-08-17 Telephone Loree, 1.2.840.1 [id number] 2100 065571 Methodi 00:00:00 00:00:[address] 3.430.2.7 Hospit a .3.231704 l .8 2021-08-17 2021-08-17 Orders Loree, 1.2.840.1 [id number] 885820 3650 Methodi 00:00:00 00:00:00 Only Angelica 68215.1.[address] 3.430.2.7 Hospit a .3.839518 l .8 2021-07-28 2021-07-28 Orders Loree, 1.2.840.1 [id number] 628172 1576 Methodi 00:00:00 00:00:00 Only Angelica 08942.1.[address] 3.430.2.7 Hospit a .3.796686 l .8 2021-07-24 2021-07-24 Orders Loree, 1.2.840.1 [id number] 484747 9393 Methodi 00:00:00 00:00:00 Only Angelica 97187.1.[address] 3.430.2.7 Hospit a .3.376883 l .8 2021-07-06 2021-07-06 Telephone Jessica [facility] 1.2.793.595 8739 8963 [facility] 00:00:00 00:00:00 Sabino MENCHACA 350.1.13.10 i ty [place] [phone] [address] 2021-07-05 2021-07-05 Documentat Ashlyformerly [facility] 1.2.840.1 [id number] Methodi 00:00:00 00:00:00 ion [address]celMaame 64774.1.[address] 3.430.2.7 Hospit a .3.302590 l .8 2021-06-30 2021-06-30 Orders Doctor LUIS 1.2.840.114 [id number] Univers 00:00:00 00:00:00 Only Unassigned, TAYLOR 350.1.13.10 ity of [place] [facility] 4.2.7.2.686 Lj as [id number] [address] 2021-06-30 2021-06-30 Telephone Makenna 1.2.840.1 [id number] 2100 864680 Methodi 00:00:00 00:00:[address] 3.430.2.7 Hospit a .3.817406 l .8 2021-06-29 2021-06-29 Telephone Loree 1.2.840.1 [id number] 2100 043956 Methodi 00:00:00 00:00:[address] 3.430.2.7 Hospit a .3.961040 l .8 2021-06-28 2021-06-28 Outpatient ALPESH GRANADOS [facility] 2099 [id number] [place]bain 00:00:00 00:00:[address] 2021-06-28 2021-06-28 Travel 1.2.840.1 1.2.974.693 9775 883673 Methodi 00:00:00 00:00:[address] 3.430.2.7 0.2.7.3.698 Ho spita .3.547874 084.8 l .8 2021-06-24 2021-06-24 Telephone Loree, 1.2.840.1 [id number] 2099 342963 Methodi 00:00:00 00:00:[address] 3.430.2.7 Hospit a .3.342688 l .8 2021-06-23 2021-06-23 [facility] 1.2.840.1 [id number] 21 [id number] Methodi 09:37:15 23:59:[address] 3.430.2.7 Hospit a .3.338485 l .8 2021-06-23 2021-06-23 Office Simran Carr 1.2.840.1 [id number] 4 [id number] Methodi 13:15:00 13:30:00 Visit Nawaf Collier 03246.1.[address] 3.430.2.7 Hospit a .3.642122 l .8 2021-06-23 2021-06-23 [facility] 1.2.840.1 [id number] 21 [id number] Methodi 07:46:16 09:36:[address] 3.430.2.7 Hospit a .3.920124 l .8 2021-06-23 2021-06-23 Outpatient ALPESH GRANADOS [facility] 2099 [id number] [place] 00:00:00 00:00:[address] 2021-06-23 2021-06-23 Outpatient EDITH [facility] [id number] 5592 [place] 00:00:00 00:00:[address] SUKI [address] 2021-06-23 2021-06-23 Travel 1.2.840.1 1.2.708.600 1361 623539 Methodi 00:00:00 00:00:[address] 3.430.2.7 0.2.7.3.698 Ho spita .3.057978 084.8 l .8 2021-06-17 2021-06-17 Telemedici Champ, 1.2.840.1 [id number] 797 9703084 Methodi 13:00:00 13:55:08 ne Tonymili 30921.1.1 364 s t Watson 3.430.2.7 Hospit a .3.463119 l .8 2021-06-17 2021-06-17 Telephone Dimitrios, 1.2.840.1 [id number] 2099140 Methodi 00:00:00 00:00:00 Fidelina Shaw 34301.1.[address] 3.430.2.7 Hospit a .3.333510 l .8 2021-06-17 2021-06-17 Telephone Wing, 1.2.840.1 [id number] 2099101 Methodi 00:00:00 00:00:[address] 3.430.2.7 Hospit a .3.473473 l .8 2021-06-17 2021-06-17 Telephone Wing, 1.2.840.1 [id number] 2099 308402 Methodi 00:00:00 00:00:[address] 3.430.2.7 Hospit a .3.060167 l .8 2021-06-16 2021-06-16 Orders Concetta, 1.2.840.1 [id number] 374595 6149 Methodi 00:00:00 00:00:00 Only Danial 12987.1.[address] 3.430.2.7 Hospit a .3.281935 l .8 2021-06-16 2021-06-16 Orders Concetta, 1.2.840.1 [id number] 338149 9505 Methodi 00:00:00 00:00:00 Only Danial 02968.1.[address] 3.430.2.7 Hospit a .3.969293 l .8 2021-06-15 2021-06-15 Telephone Makenna, 1.2.840.1 [id number] 2099 554188 Methodi 00:00:00 00:00:[address] 3.430.2.7 Hospit a .3.240172 l .8 2021-06-13 2021-06-13 Telemedici Cristianotristonmili, 1.2.840.1 [id number] [id number] Methodi 08:00:00 08:08:51 ne Ray 97151.1.[address] 3.430.2.7 Hospit a .3.679197 l .8 2021-06-13 2021-06-13 Telephone Jones, 1.2.840.1 [id number] 2099 024932 Methodi 00:00:00 00:00:[address] 3.430.2.7 Hospit a .3.643731 l .8 2021-06-13 2021-06-13 Travel 1.2.840.1 1.2.212.355 3493 180647 Methodi 00:00:00 00:00:[address] 3.430.2.7 0.2.7.3.698 Ho spita .3.359218 084.8 l .8 2021-06-08 2021-06-08 Abstract Peter, 1.2.840.1 [id number] [id number] Methodi 00:00:00 00:00:[address] 3.430.2.7 Hospit a .3.765204 l .8 2021-05-31 2021-05-31 Telephone Jaye, 1.2.840.1 [id number] [id number] Methodi 00:00:00 00:00:[address] 3.430.2.7 Hospit a .3.663789 l .8 2021-05-24 2021-05-28 [facility] Aftab Murphy Gabriella 1.2.840.1 [id number] 28 [id number] Methodi 11:18:00 18:17:00 Encounter Angeline Tellez 91971.1.[address] 3.430.2.7 Hospit a .3.618144 l .8 2021-05-27 2021-05-27 Telephone Jose Eduardo 1.2.840.1 [id number] Methodi 00:00:00 00:00:00 Tanja aguilera 89029.1.1 384 s t 3.430.2.7 Hospit a .3.396360 l .8 2021-05-25 2021-05-25 Telephone Ceferino, 1.2.840.1 [id number] 2099 538751 Methodi 00:00:00 00:00:00 Manojmagal[address]ildred Lianna 01404.1.[address] 3.430.2.7 Hospit a .3.662406 l .8 2021-05-24 2021-05-24 Documentat Loree, 1.2.840.1 [id number] 462 7132142 Methodi 00:00:00 00:00:00 [address]19.1.[address] 3.430.2.7 Hospit a .3.605580 l .8 2021-05-23 2021-05-23 Outpatient [facility] [address] [place] [address] 00:00:00 00:00:00 SIMRAN [address] 2021-05-23 2021-05-23 Outpatient [facility] [address] [place] [address] 00:00:00 00:00:[address] SIMR[address] 2021-05-23 2021-05-23 Travel 1.2.840.1 1.2.504.866 7567 887845 Methodi 00:00:00 00:00:[address] 3.430.2.7 0.2.7.3.698 Ho spita .3.629090 084.8 l .8 2021-05-23 2021-05-23 Telephone Loree, 1.2.840.1 [id number] 2100 804229 Methodi 00:00:00 00:00:[address] 3.430.2.7 Hospit a .3.556173 l .8 2021-05-23 2021-05-23 Orders Loree, 1.2.840.1 [id number] 323546 9903 Methodi 00:00:00 00:00:00 Only Angelica 39498.1.[address] 3.430.2.7 Hospit a .3.123322 l .8 2021-05-23 2021-05-23 Orders Loree, 1.2.840.1 [id number] 192330 6874 Methodi 00:00:00 00:00:00 Only Angelica 98487.1.[address] 3.430.2.7 Hospit a .3.362508 l .8 2021-05-18 2021-05-18 Lab Kingsley, 1.2.840.1 [id number] 197231 9910 Methodi 13:45:00 13:50:00 Nawaf Blair 42681.1.[address] 3.430.2.7 Hospit a .3.979950 l .8 2021-05-18 2021-05-18 Orders Peter, 1.2.840.1 [id number] 344 9922413 Methodi 00:00:00 00:00:00 Only Ruthann 19876.1.[address] 3.430.2.7 Hospit a .3.858934 l .8 2021-05-17 2021-05-17 Telephone Alpesh Granados 1.2.840.1 [id number] 2 [id number] Methodi 00:00:00 00:00:[address] 3.430.2.7 Hospit a .3.064208 l .8 2021-05-13 2021-05-13 Infusion Alpesh Granados 1.2.840.1 308835007 21 26875104 Methodi 11:00:00 12:00:[address] 3.430.2.7 Hospit a .3.568360 l .8 2021-05-13 2021-05-13 Travel 1.2.840.1 1.2.749.361 9923 168206 Methodi 00:00:00 00:00:[address] 3.430.2.7 0.2.7.3.698 Ho spita .3.792718 084.8 l .8 2021-05-12 2021-05-12 Telephone Carty, 1.2.840.1 [id number] 2099717 Methodi 00:00:00 00:00:[address] 3.430.2.7 Hospit a .3.853100 l .8 2021-05-09 2021-05-09 Office Alpesh Granados 1.2.840.1 [id number] 293 9596140 Methodi 10:45:00 15:52:27 Visit Benjy Hernandez 71358.1.[address] 3.430.2.7 Hospit a .3.817988 l .8 2021-05-09 2021-05-09 Infusion Alpesh Granados 1.2.840.1 [id number] [id number] Methodi 11:30:00 13:00:[address] 3.430.2.7 Hospit a .3.228591 l .8 2021-05-09 2021-05-09 Travel 1.2.840.1 1.2.399.393 5539 319051 Methodi 00:00:00 00:00:[address] 3.430.2.7 0.2.7.3.698 Ho spita .3.969697 084.8 l .8 2021-05-06 2021-05-06 Telephone Carty, 1.2.840.1 [id number] 2099297 Methodi 00:00:00 00:00:[address] 3.430.2.7 Hospit a .3.902685 l .8 2021-05-06 2021-05-06 Documentat [facility], 1.2.840.1 [id number] 21 [id number] Methodi 00:00:00 00:00:00 ion [place]ba 50463.1.[address] 3.430.2.7 Hospit a .3.769036 l .8 2021-05-06 2021-05-06 Documentat [facility], 1.2.840.1 [id number] 21 [id number] Methodi 00:00:00 00:00:00 ion [place]ba 57878.1.[address] 3.430.2.7 Hospit a .3.690983 l .8 2021-05-04 2021-05-04 Documentat [facility], 1.2.840.1 [id number] 21 [id number] Methodi 00:00:00 00:00:00 ion [place]ba 14898.1.[address] 3.430.2.7 Hospit a .3.839017 l .8 2021-05-02 2021-05-02 Telemedici Nick, 1.2.840.1 [id number] 21 [id number] Methodi 08:30:00 08:37:59 ne Ray 68085.1.[address] 3.430.2.7 Hospit a .3.525901 l .8 2021-04-29 2021-04-29 Orders Doctor LUIS 1.2.840.114 [id number] Univers 00:00:00 00:00:00 Only Unassigned, TAYLOR 350.1.13.10 ity of [place] [facility] 4.2.7.2.686 Lj as [id number] [facility] kandis 009 Branch 2021-04-29 2021-04-29 Documentat Jerry 1.2.840.1 [id number] Methodi 00:00:00 00:00:00 gopal rod Maame 37812.1.[address] 3.430.2.7 Hospit a .3.789047 l .8 2021-04-29 2021-04-29 Cha Wilkins 1.2.840.1 [id number] 2100 [address]87295 Methodi 00:00:00 00:00:[address] 3.430.2.7 Hospit a .3.498761 l .8 2021-04-29 2021-04-29 Telephone Franky, 1.2.840.1 [id number] 944 [id number] Methodi 00:00:00 00:00:[address] 3.430.2.7 Hospit a .3.367552 l .8 2021-04-14 2021-04-28 Office Nawaf Collier 1.2.840.1 [id number] 34 [id number] Methodi 14:15:00 16:12:07 Visit Joi Santiago 00566.1.1 651 s t 3.430.2.7 Hospit a .3.897490 l .8 2021-04-26 2021-04-26 Documentat Jeanne, 1.2.840.1 [id number] 127 [id number] Methodi 00:00:00 00:00:00 ion Mariola 97409.1.[address] 3.430.2.7 Hospit a .3.679877 l .8 2021-04-22 2021-04-22 Travel 1.2.840.1 1.2.942.834 2634 305131 Methodi 00:00:00 00:00:[address] 3.430.2.7 0.2.7.3.698 Ho spita .3.550847 084.8 l .8 2021-04-22 2021-04-22 Telephone Av, 1.2.840.1 [id number] 387 [id number] Methodi 00:00:00 00:00:[address] 3.430.2.7 Hospit a .3.807979 l .8 2021-04-14 2021-04-21 Office Nawaf Collier 1.2.840.1 [id number] 34 [id number] Methodi 14:45:00 12:56:39 Visit Lottie Kraft 84232.1.[address] 3.430.2.7 Hospit a .3.206702 l .8 2021-04-18 2021-04-18 Hospital Alpesh Granados 1.2.840.1 [id number] 21 [id number] Methodi 08:00:00 23:59:[address] 3.430.2.7 Hospit a .3.313558 l .8 2021-04-18 2021-04-18 Travel 1.2.840.1 1.2.634.793 6434 145644 Methodi 00:00:00 00:00:[address] 3.430.2.7 0.2.7.3.698 Ho spita .3.130314 084.8 l .8 2021-04-16 2021-04-16 Emergency [facility] [id number] Univers 15:34:00 16:27:00 PORSCHE quintero [facility] 2021-04-16 2021-04-16 Emergency [facility] 1.2.840.114 91 [id number] Univers 15:34:00 16:27:00 Porsche MENCHACA 350.1.13.10 ity [facility] 4.2.7.2.686 [facility] [phone] [address] 2021-04-16 2021-04-16 Anaid Quick 1.2.840.1 [id number] Methodi 13:30:00 13:45:00 Urgent Crystal 69655.1.[address] Care 3.430.2.7 Hospit a .3.368507 l .8 2021-04-15 2021-04-15 Hospital Shayy Mclaughlin 1.2.840.1 [id number] Methodi 13:13:00 20:46:00 Encounter Dayna 69016.1.[address] 3.430.2.7 Hospit a .3.954342 l .8 2021-04-15 2021-04-15 Surgery Lissette, 1.2.840.1 [id number] 829938 3833 Methodi 17:16:00 18:36:[address] Vaughn 3.430.2.7 Hospit a Tellez .3.660375 l .8 2021-04-15 2021-04-15 Travel 1.2.840.1 1.2.986.409 5756 027141 Methodi 00:00:00 00:00:[address] 3.430.2.7 0.2.7.3.698 Ho spita .3.049074 084.8 l .8 2021-04-14 [facility]-14 [facility] [id number] [id number] Methodi 10:00:00 23:59:[address] 3.430.2.7 Hospit a .3.298979 l .8 2021-04-14 2021-04-14 Office Nawaf Collier 1.2.840.1 [id number] 34 [id number] Methodi 14:00:00 14:15:00 Visit PerryJeniferlianna 16671.1.[address] 3.430.2.7 Hospit a .3.520758 l .8 2021-04-14 2021-04-14 [facility] Pauly Alpesh 1.2.840.1 [id number] 21 [id number] Methodi 06:41:00 09:59:[address] 3.430.2.7 Hospit a .3.225226 l .8 2021-04-14 2021-04-14 Outpatient ALPESH GRANADOS [facility] 2100 [id number] [place] 00:00:00 00:00:[address] 2021-04-14 2021-04-14 Outpatient KINGSLEY [facility] [id number] 572 [place] 00:00:00 00:00:[address] NAW[address] 2021-04-14 2021-04-14 Travel 1.2.840.1 1.2.110.595 2601 186148 Methodi 00:00:00 00:00:[address] 3.430.2.7 0.2.7.3.698 spita .3.075519 084.8 l .8 2021-04-14 2021-04-14 Orders Av, 1.2.840.1 [id number] 13611 Methodi 00:00:00 00:00:00 Only Krissy 34083.1.[address] 3.430.2.7 Hospit a .3.047133 l .8 2021-04-14 2021-04-14 Orders Av, 1.2.840.1 [id number] Methodi 00:00:00 00:00:00 Only Krissy 24084.1.[address] 3.430.2.7 Hospit a .3.848710 l .8 2021-04-13 2021-04-13 Social Collier 1.2.840.1 [id number] 779728 7599 Methodi 14:00:00 15:30:00 Work Nawaf Blair 92285.1.[address] 3.430.2.7 Hospit a .3.570076 l .8 2021-04-13 2021-04-13 Nawaf Sanchez 1.2.840.1 [id number] 231 [id number] Methodi 11:00:00 12:00:00 Support Consuelo Brand 20763.1.[address] 3.430.2.7 Hospit a .3.780458 l .8 2021-04-13 2021-04-13 Yuly Collier 1.2.840.1 [id number] 2099 341704 Methodi 09:00:00 10:00:00 Naw[address] Blair 80088.1.[address] 3.430.2.7 Hospit a .3.470176 l .8 2021-04-13 2021-04-13 Outpatient ALPESH GRANADOS [facility] 2100 [id number] [place] 00:00:00 00:00:[address] 2021-04-13 2021-04-13 Documentat Cory, 1.2.840.1 [id number] 2 [id number] Methodi 00:00:00 00:00:00 ion Callum 51290.1.[address] 3.430.2.7 Hospit a .3.792160 l .8 2021-04-13 2021-04-13 Documentat Breezy, 1.2.840.1 [id number] 21 [id number] Methodi 00:00:00 00:00:00 ion Fanta 81716.1.[address] 3.430.2.7 Hospit a .3.215859 l .8 2021-04-13 2021-04-13 Orders Loree, 1.2.840.1 [id number] [id number] 0100 Methodi 00:00:00 00:00:00 Only Angelica 69313.1.[address] 3.430.2.7 Hospit a .3.361519 l .8 2021-04-13 2021-04-13 Travel 1.2.840.1 1.2.663.927 0047 872124 Methodi 00:00:00 00:00:[address] 3.430.2.7 0.2.7.3.698 Ho spita .3.446436 084.8 l .8 2021-04-13 2021-04-13 Documentat Av, 1.2.840.1 [id number] 21 [id number] Methodi 00:00:00 00:00:00 gopal Rey 74177.1.[address] 3.430.2.7 Hospit a .3.831659 l .8 2021-04-12 2021-04-12 Lab Alpesh Granados 1.2.840.1 [id number] 261 [id number] Methodi 07:55:00 08:00:[address] 3.430.2.7 Hospit a .3.555095 l .8 2021-04-12 2021-04-12 Outpatient KINGSLEY [facility] [id number] 943 [place] 00:00:00 00:00:00 NAWAF Xiong Method i st 2021-04-11 2021-04-11 [facility] Jordy Zarco 1.2.840.1 [id number] 3 [id number] Methodi 14:03:46 23:59:00 [facility] Alpesh Granados 36665.1.[address] 3.430.2.7 Hospit a .3.774166 l .8 2021-04-11 2021-04-11 [facility] Zarco, Jordy 1.2.840.1 [id number] 3 [id number] Methodi 14:03:13 23:59:00 Encounter Alpesh Granados 42247.1.[address] 3.430.2.7 Hospit a .3.846286 l .8 2021-04-11 2021-04-11 [facility] Zarco, Jordy 1.2.840.1 [id number] 6 [id number] Methodi 13:16:36 14:02:00 Encounter Alpesh Granados 39683.1.[address] 3.430.2.7 Hospit a .3.413094 l .8 2021-04-11 2021-04-11 [facility], Jordy 1.2.840.1 [id number] 6 [id number] Methodi 13:16:20 14:02:00 Encounter Alpesh Granados 00784.1.[address] 3.430.2.7 Hospit a .3.101631 l .8 2021-04-11 2021-04-11 [facility] Zarco, Jordy 1.2.840.1 [id number] 7 [id number] Methodi 11:25:13 13:15:00 Encounter Alpesh Granados 58346.1.[address] 3.430.2.7 Hospit a .3.646508 l .8 2021-04-11 2021-04-11 [facility] Zarco, Jordy 1.2.840.1 [id number] 3 [id number] Methodi 09:14:01 11:24:00 Encounter Alpesh Granados 07981.1.[address] 3.430.2.7 Hospit a .3.849198 l .8 2021-04-11 2021-04-11 [facility] Zarco, Jordy 1.2.840.1 [id number] 3 [id number] Methodi 09:13:40 09:13:40 Encounter Alpesh Granados 13364.1.[address] 3.430.2.7 Hospit a .3.511625 l .8 2021-04-11 2021-04-11 Hospital Provider, 1.2.840.1 [id number] 033 [id number] Methodi 09:13:02 09:13:02 Encounter Not In 58985.1.[address] System 3.430.2.7 Hospit a .3.934457 l .8 2021-04-11 2021-04-11 [facility] Jordy Zarco 1.2.840.1 [id number] 3 [id number] Methodi 09:12:39 09:12:39 Encounter Alpesh Granados 81368.1.[address] 3.430.2.7 Hospit a .3.261429 l .8 2021-04-11 2021-04-11 [facility], Jordy 1.2.840.1 [id number] 4 [id number] Methodi 08:32:00 09:11:00 Encounter Alpesh Granados 17305.1.[address] 3.430.2.7 Hospit a .3.425782 l .8 2021-04-11 2021-04-11 [facility] Alpesh Granados 1.2.840.1 [id number] 21 [id number] Methodi 06:56:38 08:31:[address] 3.430.2.7 Hospit a .3.742861 l .8 2021-04-11 2021-04-11 Travel 1.2.840.1 1.2.772.691 6176 252053 Methodi 00:00:00 00:00:[address] 3.430.2.7 0.2.7.3.698 spita .3.281189 084.8 l .8 2021-04-08 2021-04-08 Telephone Av, 1.2.840.1 [id number] 241 [id number] Methodi 00:00:00 00:00:[address] 3.430.2.7 Hospit a .3.336943 l .8 2021-04-07 2021-04-07 Outpatient R RADIOLOGY [facility] 81259 42832 Univers 10:54:54 23:59:00 ity [facility] 2021-04-072021-04-07 Hospital Radiology [facility] 1.2.840.114 915 68641 Univers 10:54:54 23:59:00 Encounter [place] 350.1.13.10 ity of [facility] 4.2.7.2.686 [facility] [phone] [facility] 800 Branch 2021-04-07 2021-04-07 Orders Semones, 1.2.840.1 [id number] Methodi 00:00:00 00:00:00 Only Lottie 44816.1.[address] 3.430.2.7 Hospit a .3.620570 l .8 2021-04-01 2021-04-01 Travel 1.2.840.1 1.2.191.778 4236 254405 Methodi 00:00:00 00:00:[address] 3.430.2.7 0.2.7.3.698 Ho spita .3.873503 084.8 l .8 2021-04-01 2021-04-01 Orders Loree, 1.2.840.1 [id number] 570785 9104 Methodi 00:00:00 00:00:00 Only Angelica 66413.1.[address] 3.430.2.7 Hospit a .3.513610 l .8 2021-04-01 2021-04-01 Telephone Dimitrios, 1.2.840.1 [id number] 2099 525558 Methodi 00:00:00 00:00:00 Fidelina Shaw 49393.1.[address] 3.430.2.7 Hospit a .3.416956 l .8 2021-03-31 2021-03-31 Telephone Renteria, 1.2.840.1 [id number] 788 0228523 Methodi 00:00:00 00:00:[address] 3.430.2.7 Hospit a .3.347698 l .8 2021-03-30 2021-03-30 Documentat Breezy, 1.2.840.1 [id number] [id number] Methodi 00:00:00 00:00:00 ion Fanta 41088.1.[address] 3.430.2.7 Hospit a .3.085480 l .8 2021-03-28 2021-03-28 Travel 1.2.840.1 1.2.128.684 1293 924451 Methodi 00:00:00 00:00:[address] 3.430.2.7 0.2.7.3.698 Ho spita .3.726695 084.8 l .8 2021-03-18 2021-03-18 [facility]phone [facility] 1.2.792.666 3377 0096 Univers 00:00:00 00:00:00 Sabino MENCHACA 350.1.13.10 i ty [place] [phone] [address] 2021-03-18 2021-03-18 Orders Doctor LUIS 1.2.840.114 [id number] Univers 00:00:00 00:00:00 Only Unassigned, TAYLOR 350.1.13.10 ity of [place] [facility] 4.2.7.2.686 Lj as [phone] [place] [address] Branch 2021-03-10 2021-03-15 Inpatient X LEIDA [facility] AJ [id number] Univers 09:07:00 15:15:00 HARESH itbrigitte of [facility] 2021-03-10 2021-03-15 [facility] Edward Reis [facility] 1.2.840.1 14 [id number] Univers 09:07:00 15:15:00 Encounter Haresh Casarez 350.1.13.10 [place] [id number] [place] 708831 Branch 2021-03-04 2021-03-04 Telephone Yanci Escobar [facility] 1.2.840.114 [id number] Univers 00:00:00 00:00:00 Angel MENCHACA 350.1.13.10 i ty [place] 146.8219031 Oh dical NAL [address] [facility] 2021-03-04 2021-03-04 Telephone Dimitrios, 1.2.840.1 [id number] 2100 181125 Methodi 00:00:00 00:00:00 Fidelina M 82294.1.[address] 3.430.2.7 Hospit a .3.403373 l .8 2021-03-02 2021-03-02 [facility], 1.2.840.1 [id number] Methodi 14:22:00 23:59:00 Encounter Nawaf Blair 31914.1.[address] 3.430.2.7 Hospit a .3.453470 l .8 2021-03-02 2021-03-02 [facility], 1.2.840.1 [id number] Methodi 14:19:20 14:21:00 Encounter Nawaf Blair 15677.1.[address] 3.430.2.7 Hospit a .3.950644 l .8 2021-02-22 2021-02-22 Telephone Loree, 1.2.840.1 [id number] 2099 127833 Methodi 00:00:00 00:00:[address] 3.430.2.7 Hospit a .3.454922 l .8 2021-02-21 2021-02-21 Transplant Jovani Boyle 1.2.840.1 10 [id number] [id number] Methodi 15:30:00 15:30:00 Telemedici Alpesh Granados 96544.1.[address] ne 3.430.2.7 Hospit a .3.655501 l .8 2021-02-21 2021-02-21 Orders Doctor LUIS 1.2.840.114 [id number] 52 Univers 00:00:00 00:00:00 Only Unassigned, TAYLOR 350.1.13.10 ity of [place] [facility] 4.2.7.2.686 Lj as 066.2628386 [address] 2021-02-18 2021-02-18 Telephone Loree, 1.2.840.1 [id number] 2099 211012 Methodi 00:00:00 00:00:[address] 3.430.2.7 Hospit a .3.475775 l .8 2021-02-11 2021-02-11 Telephone Sunday, 1.2.840.1 [id number] 2100 808145 Methodi 00:00:00 00:00:[address] 3.430.2.7 Hospit a .3.037233 l .8 2021-01-20 2021-01-20 Orders Doctor LUIS 1.2.840.114 [id number] 60 Univers 00:00:00 00:00:00 Only Unassigned, TAYLOR 350.1.13.10 ity of [place] [facility] 4.2.7.2.686 Lj as 983.3843587 [facility] 009 Branch 2021-01-17 2021-01-17 Transition NANDA Yang 1.2.840.114 896 18235 Univers 00:00:00 00:00:00 of Care Carlos Mili DESHPANDE 350.1.13.10 ity of [place] [id number] [facility] 403 Branch 2021-01-11 2021-01-14 Inpatient X NATHALY [facility] AJ [id number] 11 Univers 11:53:00 15:15:00 PREETI quintero [facility] 2021-01-11 2021-01-14 [facility] Idalia Bowman [facility] 1.2.840. 114 [id number] Univers 11:53:00 15:15:00 Encounter Preeti Andersen 350.1.13.10 ity [facility] [place] [id number] [facility] 081 Branch 2021-01-11 2021-01-14 Inpatient X NATHALY [facility] AJ [id number] 11 Univers 11:53:00 15:15:00 PREETI quintero [facility] 2021-01-14 2021-01-14 Patient Doctor LUIS 1.2.840.114 [id number] 10 Univers 00:00:00 00:00:00 Secure Msg Unassigned, TAYLOR 350.1.13.10 ity of [place] [facility] 4.2.7.2.686 Lj as [id number] [facility] 019 Branch 2021-01-10 2021-01-10 Telephone Jessica [facility] 1.2.727.272 8306 8871 Univers 00:00:00 00:00:00 Sabino MENCHACA 350.1.13.10 i ty [place] 040.1157255 Oh dical NAL 085 Branch [facility] 2021-01-06 2021-01-06 Outpatient R SABINO LOPEZ [facility] 10 [id number] Univers 12:00:00 12:00:00 SABINO LOPEZ i ty of [facility] 2020-12-27 2021-01-04 Inpatient 3 ZACK LindseyYOHAN PUL 76647-08 21 [facility] 18:28:00 13:20:00 Ilir 1122 Health Re[facility] itation Manish dsouza 2020-12-28 2020-12-28 Transition NANDA Yang 1.2.840.114 891 04023 Univers 00:00:00 00:00:00 of Care Carlos SUAREZY 350.1.13.10 ity of [place]2.[place] [phone] [facility] 403 Branch 2020-12-17 2020-12-27 Inpatient X NATHALY [facility] AJ [id number] Univers 08:38:00 17:06:00 PREETI itbrigitte of [facility] 2020-12-17 2020-12-27 [facility] Edward Reis [facility] 1.2.840.1 14 [id number] Univers 08:38:00 17:06:00 Encounter Preeti Andersen 350.1.13.10 [place] [id number] [facility] 081 Branch 2020-12-24 2020-12-24 Telephone DavisCasper 1.2.840.1 [id number] Methodi 00:00:00 00:00:00 Renata rose 48388.1.[address] 3.430.2.7 Hospit a .3.180688 l .8 2020-12-23 2020-12-23 Telephone Jessica [facility] 1.2.896.366 4778 1149 Univers 00:00:00 00:00:00 Sabino MENCHACA 350.1.13.10 i ty [place] 762.5268128 Oh dical [facility] 085 Branch [facility] 2020-12-02 2020-12-02 Telephone Maria LuzCE 1.2.840.114 88 [id number] Univers 00:00:00 00:00:00 [facility] 350.1.13.10 ity of [place] 813.2431079 [facility] 089 Branch 2020-12-02 2020-12-02 Travel 1.2.840.1 1.2.841.710 0836 777165 Methodi 00:00:00 00:00:[address] 3.430.2.7 0.2.7.3.698 Ho spita .3.420368 084.8 l .8 2020-11-29 2020-11-29 Office Eagle, 1.2.840.1 [id number] 943115 0865 Methodi 11:50:00 12:46:42 Visit Fernanda 24857.1.[address] 3.430.2.7 Hospit a .3.675888 l .8 2020-11-29 2020-11-29 Transition Nanda Yang 1.2.840.114 884 61791 Univers 00:00:00 00:00:00 of Care Carlos Mili Deshpande 350.1.13.10 ity of [place] 014.7552358 [facility] 403 Branch 2020-11-29 2020-11-29 Refill Phoebe, 1.2.840.1 [id number] 418823 7882 Methodi 00:00:00 00:00:[address] 3.430.2.7 Hospit a .3.464622 l .8 2020-11-29 2020-11-29 Orders Sandhu, 1.2.840.1 [id number] 692451 9798 Methodi 00:00:00 00:00:00 Only Caitlin 79244.1.[address] 3.430.2.7 Hospit a .3.787441 l .8 2020-11-29 2020-11-29 Travel 1.2.840.1 1.2.174.190 4063 959578 Methodi 00:00:00 00:00:[address] 3.430.2.7 0.2.7.3.698 Ho spita .3.593189 084.8 l .8 2020-11-23 2020-11-27 [facility] ReisEdward [facility] 1.2.840.1 14 [id number] [facility] 10:43:00 14:00:00 Encounter Preeti Andersen 350.1.13.10 ity of [place]ne [place] 4.2.7.2.686 [facility] [id number] [facility] 080 Branch 2020-10-08 2020-10-19 Inpatient [facility] 064 [id number] 42 [place] 00:00:00 00:00:[address] L[address]EN [address] 2020-10-05 2020-10-05 Outpatient LOPEZ, [facility] [id number] [place] 00:00:00 00:00:00 NAOMI [address] 2020-09-27 2020-09-27 Outpatient R RADIOLOGY [facility] [id number] [facility] 00:00:00 00:00:00 ity of [facility] 2020-09-15 2020-09-15 Outpatient JESSICA, [facility] [id number] 735 [place] 00:00:00 00:00:00 NAOMI [address] 2020-08-11 2020-08-11 Transition Nanda Yang 1.2.840.114 [id number] [id number] Univers 00:00:00 00:00:00 of Care Carlos Deshpande 350.1.13.10 ity of [place] 4.2.7.2.686 [facility] [phone] [facility] 403 Branch 2020-08-08 2020-08-10 Emergency Porsche Moore [facility] 1.2.8 40.114 [id number] Univers 14:08:00 13:20:00 Haresh Casarez 350.1.13.10 ity of [place] [phone] [facility] 081 Branch 2020-07-22 2020-07-22 Transition Nanda Yang 1.2.840.114 851 [id number] 00:00:00 00:00:00 of Care Carlos Garces Deshpande 350.1.13.10 [place] 4.2.7.2.686 228.5765802 [facility] 2020-07-22 2020-07-22 Transition Nanda Yang 1.2.840.114 851 [id number] Univers 00:00:00 00:00:00 of Care Carlos Mili Deshpande 350.1.13.10 ity of [place] 4.2.7.2.686 [facility] 545.1068661 [place] [address] Branch 2020-07-15 2020-07-21 [facility] Sarah Garcia 1.2.840.1 14 [id number] 18:18:00 19:03:00 Encounter Yenni Ocampo 350.1.13.10 [facility] 4.2.7.2. 686 Davon Pizarro [id number] [facility] 2020-07-15 2020-07-21 [facility] 1.[facility].840.1 14 [id number] [facility] 18:18:00 19:03:00 Encounter Terrence Yenni Taylor 350.1.13.10 ity of [facility] 4.2.7.2. 686 [place] Davon Pizarro [id number] [address] 2020-07-20 2020-07-20 Outpatient Adelia HOOPER [facility] [id number] Univers 14:00:00 14:00:00 JOHN myles [facility] 2020-07-13 2020-07-13 Hospital Radiology [facility] 1.2.840.114 [id number] [id number] 14:12:26 23:59:00 Encounter [place] 350.1.13.10 [place] 4.2.7.2.686 [place] [id number] 801 2020-07-13 2020-07-13 [facility] Radiology [facility] 1.2.840.114 845 [id number] Univers 14:12:26 23:59:00 Encounter [place] 350.1.13.10 ity of [place] [id number] [facility] 801 Branch 2020-07-13 2020-07-13 Outpatient R RADIOLOGY [facility] [id number] Univers 00:00:00 00:00:00 ity of [facility] 2020-06-22 2020-06-22 Orders Doctor LUIS 1.2.840.114 [id number] 00:00:00 00:00:00 Only Unassigned, TAYLOR 350.1.13.10 [place] [facility] 4.2.7.2.686 176.6566927 009 2020-06-22 2020-06-22 Orders Doctor LUIS 1.2.840.114 [id number] 91 Univers 00:00:00 00:00:00 Only Unassigned, TAYLOR 350.1.13.10 ity of [place] [facility] 4.2.7.2.686 Lj as 957.8585602 [facility] 009 Branch 2020-06-14 2020-06-14 Transition Nanda Yang 1.2.840.114 842 23212 00:00:00 00:00:00 of Care Carlos A Deshpande 350.1.13.10 [place] 4.2.7.2.686 [id number] 403 2020-06-14 2020-06-14 Transition Nanda Yang 1.2.840.114 842 [id number] Univers 00:00:00 00:00:00 of Care Carlos A Deshpande 350.1.13.10 ity of [place] [phone] [facility] 403 Branch 2020-06-14 2020-06-14 Patient Doctor LUIS 1.2.840.114 [id number] Univers 00:00:00 00:00:00 Secure Msadams UnassignedTAYLOR 350.1.13.10 [facility] 4.2.7.2.686 [facility] [id number] [facility] 019 Branch 2020-06-10 2020-06-12 [facility] Edward Reis [facility] 1.2.840.1 14 [id number] Univers 22:55:00 14:52:00 Encounter NathalyPreetiton 350.1.13.10 ity of [place]itchie Garcia 4.2.7.2.686 [facility] [id number] [facility] 081 Branch 2020-06-10 2020-06-12 Inpatient X ISABELL [facility] AJ [id number] Univers 22:55:00 14:52:00 RITCHIE ity [facility] 2020-06-07 2020-06-07 Outpatient GC_WPSA_Awa PRIV PRIV 206 [id number] [facility] 11:41:00 11:41:00 n_R [id number] Medica l 2020-06-03 2020-06-03 Outpatient GC_WPSA_Awa PRIV PRIV 206 [id number] [facility] 03:16:00 03:16:00 n_R [id number] Medica l 2020-06-03 2020-06-03 Shayla Ganesh PRIV [place] - [facility] 202 [id number] [facility] 00:00:00 00:00:00 MD Bruna: [facility] Med ica 16523 GC_WPSA_[facility], Office [address], [place] [address] , Ph. 2020-06-03 2020-06-03 Outpatient Bruna, Shayla PRIV PRIV [id number] 00:00:00 00:00:00 Ganesh [id number] 2020-06-03 2020-06-03 Outpatient Bruna, Shayla PRIV PRIV [id number] 00:00:00 00:00:00 Ganesh [id number] 2020-05-12 2020-05-12 Hospital IVY Kahn 1.2.840.114 8 [id number] 14:29:00 23:59:00 Encounter Rupa Malloy 350.1.13.10 [place]ILD[place] 4.2.7.2.686 [id number] [facility] 2020-05-12 2020-05-12 [facility] OMA Kahn 1.2.840.114 8 [id number] Univers 14:29:00 23:59:00 Encounter Rupa Malloy 350.1.13.10 ity of [place] 4.2.7.2.686 Lj as [id number] [address] 2020-05-12 2020-05-12 [facility] A[facility] [id number] Univers 00:00:00 00:00:00 RUPA [facility] 2020-05-11 2020-05-11 Office [facility] 1.2.840.114 [id number] 12:47:23 15:00:26 Visit [facility] 350.1.13.10 Surgical 4.2.7.2.686 Specialti [id number] es [address] [place] [address] 2020-05-11 2020-05-11 Office [facility] 1.2.840.114 [id number] 56 Univers 12:47:23 15:00:26 Visit [facility] 350.1.13.10 it y of Surgical 4.2.7.2.686 Lj as Specialti [phone] Oh dical es 198 [facility] 2020-05-11 2020-05-11 Outpatient Adelia NASSAR [facility] [id number] Univers 13:00:00 13:00:00 [facility] 2020-05-10 2020-05-[address] [facility] 1.2.840.114 [id number] Univers 00:00:00 00:00:00 [facility] 350.1.13.10 it y of Surgical 4.2.7.2.686 Lj as Specialti [id number] Oh dical es 198 [facility] 2020-05-04 2020-05-04 [facility] [id number] Univers 14:15:00 14:15:00 [facility] 2020-05-04 2020-05-04 Telephone Kathy [facility] 1.2.840.114 83 [id number] Univers 00:00:00 00:00:00 [facility] 350.1.13.10 it y of Surgical 4.2.7.2.686 Lj as Specialti 979.9392944 Oh dical es 198 [address] [place] 2020-04-21 2020-04-21 Orders Doctor LUIS 1.2.840.114 [id number] Univers 00:00:00 00:00:00 Only Unassigned, TAYLOR 350.1.13.10 ity of [place] [facility] 4.2.7.2.686 Lj as 755.9725487 [facility] kandis 009 Branch 2020-04-13 2020-04-13 Patient Steven [facility] 1.2.840.114 [id number] Univers 00:00:00 00:00:00 Outreach Wayne PRIMARY 350.1.13.10 i ty of [facility] 4.2.7.2.[place]AV[place] 408.3041619 Oh dical 388 [address] 2020-03-29 2020-03-29 Orders Doctor LUIS 1.2.840.114 [id number] Univers 00:00:00 00:00:00 Only Unassigned, TAYLOR 350.1.13.10 ity of [place] HOSPITAL 4.2.7.2.686 Lj as 730.5309190 [facility] kandis 009 Branch 2020-03-03 2020-03-03 Orders Doctor GOMEZ 1.2.840.114 [id number] Univers 00:00:00 00:00:00 Only Unassigned, TAYLOR 350.1.13.10 ity of [place] HOSPITAL 4.2.7.2.686 Jl as 871.5530830 [facility] kandis 009 Branch 2020-02-04 2020-02-04 Orders Doctor LUIS 1.2.840.114 [id number] Univers 00:00:00 00:00:00 Only Unassigned, TAYLOR 350.1.13.10 ity of [place] HOSPITAL 4.2.7.2.686 Lj as 736.4332261 [facility] kandis 009 Branch 2019-12-22 2019-12-22 Hospital Radiology [facility] 1.2.840.114 [id number] [id number] Univers 12:34:42 23:59:00 Encounter Tracey 350.1.13.10 ity of [place] 4.2.7.2.686 [facility] [phone] [facility] [address] [place] 2019-12-22 2019-12-22 Outpatient R RADIOLOGY [facility] [id number] Univers 00:00:00 00:00:00 ity of [facility] 2019-11-24 2019-11-24 Orders Doctor GOMEZ 1.2.840.114 [id number] Univers 00:00:00 00:00:00 Only Unassigned, TAYLOR 350.1.13.10 ity of [place] [facility] 4.2.7.2.686 Lj as [phone] [facility] [address] 2019-09-20 2019-09-21 [facility] 1.2.581.397 [id number] Univers 22:42:00 02:53:00 Edwardsukumar [place] 350.1.13.10 i ty of [place] 4.2.7.2.686 [facility] [phone] [facility] [address] 2019-08-26 2019-08-26 Telephone Hernan Munoz [facility] 1.2.840.11 [id number] Univers 00:00:00 00:00:00 [facility] 350.1.13.10 i ty of [facility] 4.2.7.2.686 [facility] [phone] [facility] [address] 2019-08-20 2019-08-20 Office Cesario [facility] 1.2.840.114 [id number] Univers 15:02:58 16:18:49 Visit [facility] 350.1.13.10 it y of Surgical 4.2.7.2.686 Lj as Specialti [phone] Oh dical es 198 [facility] 2019-08-20 2019-08-20 Outpatient R CESARIO [facility] [id number] Univers 15:15:00 15:15:00 NO ity of [facility] 2019-08-20 2019-08-20 Orders Doctor GOMEZ 1.2.840.114 [id number] Univers 00:00:00 00:00:00 Only Unassigned, TAYLOR 350.1.13.10 ity of [place] [facility] 4.2.7.2.686 Lj as [phone] [address] 2019-08-19 2019-08-19 Outpatient Richardson Mackey [id number] Common 13:47:00 13:47:00 [facility] 2019-07-14 2019-07-15 Emergency X SANJU, [facility] ERT [id number] Univers 21:29:13 00:54:00 SEAN ity [facility] 2019-07-14 2019-07-15 [facility] 1.2.435.102 [id number] Univers 21:29:13 00:54:00 Sean [place] 350.1.13.10 i ty [place].2.[place] [phone] [address] 2019-06-24 2019-06-24 Orders Doctor LUIS 1.2.840.114 [id number] Univers 00:00:00 00:00:00 Only Unassigned, TAYLOR 350.1.13.10 ity of [place] [facility] 4.2.7.2.686 Lj as [id number] [address] 2019-06-18 2019-06-18 Outpatient R JOANNE, [facility] [id number] Univers 10:30:00 10:30:00 AVRIL ity of [facility] 2019-06-12 2019-06-12 Shahrzad Mercado, UNIVERSIT 1.2.055.460 [id number] Univers 00:00:00 00:00:00 Franco Y HEALTH 350.1.13.10 [place] [phone] [address] 2019-06-11 2019-06-11 Outpatient R [facility] [id number] Univers 15:00:00 15:00:00 ity of [facility] 2019-06-11 2019-06-11 Telemedici Fellow, Pulmonary UNIVERSIT 1.2 .840.114 [id number] Univers 08:16:04 08:46:04 ne Visit Hany Valdes Y HEALTH 350.1 .13.10 ity of [place] [phone] [facility] [address] 2019-05-30 2019-05-30 Transition Nanda Klein 1.2.840.114 [id number] Univers 00:00:00 00:00:00 of Care Sheron Deshpande 350.1.13.10 it y [place]7.2.[place] [phone] [facility] [address] 2019-05-22 2019-05-29 Inpatient R HERNAN MUNOZ [facility] AJ [id number] Univers 21:22:00 15:13:00 ity of [facility] 2019-05-22 2019-05-29 Hospital Hernan Munoz Ceferino Garcia 1.2.840 .114 [id number] Univers 21:22:00 15:13:00 Encounter LatriceMansi Taylor 350.1.13.10 ity of [facility] 4.2.7.2.686 Lj as [phone] [address] 2019-05-22 2019-05-22 Telemedici Hernan Munoz UNIVERSIT 1.2.840.1 [id number] Univers 07:53:51 08:23:51 ne Visit [facility] 350.1.13.10 ity of CL[place] [phone] [place] [address] 2019-05-14 2019-05-14 Telephone PASCUAL Golden 1.2.840.114 [id number] Univers 00:00:00 00:00:00 [facility] 350.1.13.10 i ty [place] [phone] [address] 2019-04-18 2019-04-18 Emergency X [facility] ERT [id number] Univers 01:12:24 03:15:00 STUART ity of [facility] 2019-04-18 2019-04-18 Emergency Neel [facility] [id number] Univers 01:12:24 03:15:00 Stuart Menchaca 350.1.13.10 i [place] [id number] [facility] [address] 2019-04-11 2019-04-11 Letter Juliette [facility] 1.2.840.114 [id number] Univers 00:00:00 00:00:00 (Out) Kalen MULTISPEC 350.1.13.10 [place] [id number] [facility] AND MCCLURE 011 Branch DIABETES CLINIC 2019-04-10 2019-04-10 Pharmacology Associate [facility] UNIVERSIT 1.2.840.114 [id number] Univers 09:23:25 09:38:25 Visit Preeti Lamar [facility] 350.1.13.10 ity of [place] [id number] [facility] [address] 2019-04-10 2019-04-10 Office Dar Golden [facility] 1.2.8 40.114 [id number] Univers 07:52:48 09:10:16 Visit Preeti Lamar [facility] 350.1.13.10 ity of [place] [id number] [facility] [address] 2019-04-10 2019-04-10 Outpatient R BRIANDA [facility] [id number] Univers 08:00:00 08:00:00 PREETI quintero of [facility] 2019-04-10 2019-04-10 Orders Doctor LUIS 1.2.840.114 [id number] Univers 00:00:00 00:00:00 Only Unassigned, TAYLOR 350.1.13.10 ity of [facility] 4.2.7.2.686 Lj as [id number] [facility] 009 Branch 2019-03-18 2019-03-18 Inpatient E [facility] MED 7500 [facility] 20:07:00 14:57:00 2019-03-18 2019-03-18 Transition Nanda Klein 1.2.840.114 [id number] Univers 00:00:00 00:00:00 of Care Sheron Deshpande 350.1.13.10 it y of [place] [id number] [address] 2019-03-13 2019-03-16 Inpatient X MOIRA [facility] AJ [id number] Univers 13:15:05 17:20:00 DAVON ity [facility] 2019-03-13 2019-03-16 [facility] Carol Patiño 1.2.840. 114 [id number] Univers 13:15:05 17:20:00 Encounter Davon Pizarro 350.1.1 3.10 ity of [facility] 4.2.7.2.686 [place] [phone] [facility] [address] 2019-03-13 2019-03-13 Transition Nanda Klein 1.2.840.114 [id number] Univers 00:00:00 00:00:00 of Care Sheron Pavel 350.1.13.10 it y of [place] 4.2.7.2.686 [facility] [id number] [address] 2019-03-09 2019-03-12 [facility] So Oleary [facility] 1.2.840.1 14 [id number] Univers 14:20:20 11:50:00 Encounter Brianne Hickey 350.1.13.10 ity of [place] 4.2.7.2.686 [facility] [id number] [place] [id number] [place] 2019-03-09 2019-03-12 Inpatient X MARY [facility] AJ [id number] Univers 14:20:20 11:50:00 BRIANNE ity of [facility] 2018-02-06 2018-02-06 [facility] [id number] Common 15:15:00 15:15:00 [facility] 2018-01-03 2018-01-03 [facility] [id number] Common 09:30:00 09:30:00 t [facility] - [facility] 2017-09-13 2017-09-13 [facility] [id number] Common 08:00:00 08:00:00 t Bone Bone and Spiri t and Joint [facility] 2017-09-06 2017-09-06 [facility] 14 [id number] Common 10:00:00 10:00:00 t Bone Bone and Spiri t and Joint [facility] - [facility] Results Test Description Test Time Test Comments Results Result Comments Source MAGNESIUM 2022-11-06 06:14:04 Test Item Value Reference Range Interpretation Comme nts MAGNESIUM (test code = 6396251421) 1.5 mg/dL 1.7-2.4 L Lab Interpretation (test code = 32567-0) Abnormal [facility] (43140)2022-11-06 06:13:44 Test Item Value Reference Range Interpretation Comments NA (test code = 134 mmol/L 135-145 L 1415069211) K (test code = 4.2 mmol/L 3.5-5.0 4960117284) CL (test code = 89 mmol/L 98-108 L 6755886502) CO2 TOTAL (test code = 38 mmol/L 23-31 H 9328240969) AGAP (test code = 7 2-16 9625923763) BUN (test code = 11 mg/dL 7-23 5294462977) GLUCOSE (test code = 137 mg/dL 70-110 H 2379643657) CREATININE (test code = 0.40 mg/dL 0.50-1.04 L 4667170907) TOTAL BILI (test code = 0.8 mg/dL 0.1-1.5 9617249556) CALCIUM (test code = 9.7 mg/dL 8.6-10.6 8586265821) T PROTEIN (test code = 7.9 g/dL 6.3-8.2 7234989031) ALBUMIN (test code = 3.7 g/dL 3.5-5.0 3967455821) ALK PHOS (test code = 89 U/L 34-122 2677742162) ALTv (test code = 10 U/L 5-35 1742-6) AST(SGOT) (test code = 27 U/L 13-40 1309933091) eGFR (test code = 161.2 mL/min/1.73m2 2590479573) KYLE (test code = KYLE) Association of [...] tests). Lab Interpretation Abnormal (test code = 16700-9) [facility]2023-[facility]-02 06:13:43 Test Item Value Reference Range Interpretation Comments LIPASE (test code = 9634465250) 10 U/L 0-220 Lab Interpretation (test code = Normal 75728-7) [facility] WITH [id number] 06:00:21 Test Item Value Reference Range Interpretation Comments WBC (test code = 17.39 See_Comment H [Automated 4290-2) message] The system which generated this result transmit blayne reference range : 4.30 - 11.10 10*3/?L. The reference range was not used to interpret this result as normal/abnormal . RBC (test code = 3.38 See_Comment L [Automated 9-8) message] The system which generated this result transmit blayne reference range : 3.93 - 5.25 10*6/?L. The reference range was not used to interpret this result as normal/abnormal . HGB (test code = 9.5 g/dL 11.6-15.0 L 718-7) HCT (test code = 31.3 % 35.7-45.2 L 4544-3) MCV (test code = 92.6 fL 80.6-95.5 787-2) MCH (test code = 28.1 pg 25.9-32.8 785-6) MCHC (test code = 30.4 g/dL 31.6-35.1 L 786-4) RDW-SD (test code = 45.8 fL 39.0-49.9 81335-8) RDW-CV (test code = 13.6 % 12.0-15.5 788-0) PLT (test code = 308 See_Comment [Automated 777-3) message] The system which generated this result transmit blayne reference range : 166 - 358 10*3/ ?L. The reference range was not u sed to interpret th is result as normal/abnormal . MPV (test code = 9.6 fL 9.5-12.9 67488-7) NRBC/100 WBC (test 0.0 See_Comment [Automat ed code = 5825525472) message] The system which generated this result transmit blayne reference range : 0.0 - 10.0 /100 WBCs. The reference range was not used to interpret this result as normal/abnormal . NRBC x10^3 (test code See_Comment [Auto mated = 8411024716) message] The system which generated this result transmit blayne reference range : 10*3/?L. The reference range was not used to interpret this result as normal/abnormal . GRAN MAT (NEUT) % 82.2 % (test code = 770-8) IMM GRAN % (test code 0.60 % = 6900872305) LYMPH % (test code = 7.4 % 736-9) MONO % (test code = 6.7 % 5905-5) EOS % (test code = 2.8 % 713-8) BASO % (test code = 0.3 % 706-2) GRAN MAT x10^3(ANC) 14.29 10*3/uL 1.88-7.09 H (test code = 2454670087) IMM GRAN x10^3 (test 0.11 10*3/uL 0.00-0.06 H code = 3289008450) LYMPH x10^3 (test code 1.28 10*3/uL 1.32-3.29 L = 731-0) MONO x10^3 (test code 1.17 10*3/uL 0.33-0.92 H = 742-7) EOS x10^3 (test code = 0.49 10*3/uL 0.03-0.39 H 711-2) BASO x10^3 (test code 0.05 10*3/uL 0.01-0.07 = 704-7) Lab Interpretation Abnormal (test code = 33489-8) [facility] 21 + LACTIC [id number] 05:47:13 Test Item Value Reference Range Interpretation Comments PH (test code = 7.41 7.32-7.42 9575799709) PCO2 SONIA (test code = 58 See_Comment H [Auto mated 1785845309) message] The sy stem which generated this result transmitted reference range : 41 - 51 mmHg. The reference range was not used to interpret this result as normal/abnormal . PO2 SONIA (test code = 59 See_Comment HH [Autom ated 3804243172) message] The sy stem which generated this result transmitted reference range : 25 - 40 mmHg. The reference range was not used to interpret this result as normal/abnormal . HCO3 SONIA (test code = 36 See_Comment H [Auto mated 3731452215) message] The sy stem which generated this result transmitted reference range : 24 - 28 mEq/L. The reference range was not used to interpret this result as normal/abnormal . AC VBE(BEAKER) (test 9.9 mEq/L code = 1816654177) THB SONIA (test code = 10.6 g/dL 12.0-16.0 L 2269194868) %O2HB SONIA (test code = 91.4 % 52.0-63.0 H 1957644671) %COHB SONIA (test code = 0.4 % 0.0-1.5 5298719738) %METHB SONIA (test code = 0.3 % 0.4-1.5 L 5912645980) VOL%O2 SONIA (test code = 13.7 % 6.0-12.0 H 9198506401) NA (test code = 137 mmol/L 135-145 3954163379) K+ (test code = 3.9 mmol/L 3.5-5.0 8635062862) AC CA IONZ (test code = 5.00 mg/dL 4.50-5.30 0436539223) GLUCOSE (test code = 147 mg/dL 70-110 H 3019692304) LACTIC ACID (test code 1.12 mmol/L 0.50-2.20 = 3264390393) Lab Interpretation Abnormal (test code = 62582-7) [facility] [id number] 05:41:00 Test Item Value Reference Range Interpretation Comments Fungus culture No growth Specimen isolate (test after 4 weeks InformationSp ecimen code = 580-1) of Source: Bronch ial alveolar incubation. lavageSpecimen Site: MARC (Left Upper Lob e) [facility]ionella konzxtc0403-30-27 19:22:00 Test Item Value Reference Interpretation Comments Range Legionella No Legionella Specimen culture isolate isolated. InformationS bessie (test code = Source: Bronchi al 1656) alveolar lavage Specimen Site: MARC (Left Upper Lobe) [facility] HospitalNocardia [id number] 14:57:00 Test Item Value Reference Range Interpretation Comments Nocardia No Nocardia Specimen culture isolate isolated after Informatio nSpecimen (test code = 7 days. Source: Bronchi al 1808) alveolar lavage Specimen Site: MARC (Left Upper Lobe) [facility] HospitalRespiratory [id number] 11:26:00 Test Item Value Reference Range Interpretation Comments Respiratory Normal oral Specimen culture isolate ghassan InformationS bessie (test code = isolated. Source: Bronchi al 23458-8) alveolar lavage Specimen Site: MARC (Left Upper Lobe) [facility] HospitalMiscellaneous referral [id number] 18:54:00 Test Item Value Reference Range Interpretation Comments Misc test VIRACOR ASPERGILLUS name (test GALACTOMANNAN BAL code = 2566) Misc test see comment Aspergillus result (test Galactomannan ( BAL) code = 1730) 1600 TEST INDE X VALUE REF RANGE Asp. Galactomannan 0 .077 <0.500 Interpretation: Patients with a n index value of greater than or equal to 0.5 are cons idered to be positive for galactomannan antigen. The Platelia(TM) Aspergillus EIA package insert also recommends a ne w sample be colle cted from the patien t for follow-up testi ng. Patients with a n index value of less than 0.5 are considered to b e negative for galactomannan antigen. A nega tive result may saleem felicia that the patien t's result is below the detectable leve l of the assay. Nega tive results do not rule out the diagnos is of Invasive Aspergillosis. Pursuant to the package insert, repeat testing is recommended if the result is negat amadeo, but the disease is suspected. Due to the potential for environmental contamination w hen transferred to pour-off tubes, which can lead to fal se positive result s, interpret posit amadeo results from samplesprovided in pour-off tubes with caution. Result s should be used in conjunction wit h clinical findin gs, and should not form the sole basis for a diagnosis or treatment decis ion. The Platelia Aspergillus Galactomannan E IA is a product of [employer] and is FDA appr thomas for in vitro diagnostic use. Reported 2022 Performed at: [facility], [address] [place], [place] [address] KYLE (test ASPERGILUS code = KYLE) GALACTOMANNAN BAL MARC [facility] car[facility] - [id number] 18:32:00 Test Item Value Reference Range Interpretation Comments Pneumocystis qPCR BAL source (test code = 2568) Pneumocystis qPCR Not Detected copies/mL PNEUMOCYST IS qPCR qnt (test code = VIRACORExpe cted 1979) results: Not detectedAssay r arnulfo: 500 to 9u52a97 DNA copies/mlTest performed by:[id number] [facility] [place] [address] KYLE (test code = BAL MARC KYLE) [facility] [id number] 21:37:18 Test Item Value Reference Range Interpretation Comments Case number (test code = [id number]) Cytology See link below for (non-gynecological) PDF Lab Report report (test code = 1178) Result status (test code This is Final Report = [id number]) for [id number] [facility]AFB [id number] 19:09:00 Test Item Value Reference Range Interpretation Comments AFB stain No acid fast Specimen (test code = bacilli (AFB) InformationSpe [facility] 676-7) seen. Source: Bronchi al alveolar lavageSpecimen Site: MARC (Left Upper Lob e) [facility] HospitalFungus [id number] 19:04:00 Test Item Value Reference Range Interpretation Comments Fungus smear No fungi Specimen (test code = observed. InformationSpec imen Source: 1443) Bronchial alveo lar lavageSpecimen Site: MARC (Left Upper Lob e) [facility] HospitalLIFE2000 ventilation ktmxiu0489-25-18 16:09:48 Test Item Value Reference Range Interpretation Comments SUPPLIER NAME (test Quinones ([facility] - code = 6415) [facility]) SUPPLIER PHONE (test code = 6416) ORDER STATUS (test code Completed = 6417) DELIVERY NOTE (test code = 6419) REQUESTED DELIVEY DATE 09/11/2022 (test code = 6420) ITEM DESCRIPTION (test Bacterial Filter for Qty: 1 code = 6423) Non-Invasive Ventilator ACTUAL DELIVERY DATE 09/11/2022 (test code = 6422) [facility] [id number] 12:00:00 Test Item Value Reference Range Interpretation Comments Gram stain No WBC's or Specimen isolate (test organisms seen. Information Specimen code = 1469) Source: Bronchi al alveolar lavage Specimen Site: MARC (Left Upper Lobe) [facility] HospitalRespiratory pathogen panel with COVID-19 [id number] 11:49:00 Test Item Value Reference Interpretation Comments Range Adenovirus PCR (test Not Detected Specime n code = 7092) InformationSpec imen Source: Bronchi al alveolar lavage Specimen Site: MARC (Left Upper Lobe) Coronavirus HKU1 PCR Not Detected (test code = 7093) Coronavirus NL63 PCR Not Detected (test code = 7094) Coronavirus 229E PCR Not Detected (test code = 7095) Coronavirus OC43 PCR Not Detected (test code = 7096) Human Not Detected metapneumovirus PCR (test code = 7097) Human Not Detected rhinovirus/enterovir us PCR (test code = 7098) Influenza A PCR Not Detected (test code = 84907-4) Influenza A/H1 PCR Not reported (test code = 7100) Influenza A/H3 PCR Not reported (test code = 7102) Influenza A/H1-2009 Not Reported PCR (test code = 7101) Respiratory Not Detected syncytial virus PCR (test code = 23276-5) Parainfluenza virus Not Detected 1 PCR (test code = 7105) Parainfluenza virus Not Detected 2 PCR (test code = 7106) Parainfluenza virus Not Detected 3 PCR (test code = 7107) Parainfluenza virus Not Detected 4 PCR (test code = 7108) Bordetella pertussis Not Detected PCR (test code = 9136863) Bordetella Not Detected parapertussis PCR (test code = 6307766) Chlamydia pneumoniae Not Detected PCR (test code = 3753) Mycoplasma Not Detected pneumoniae PCR (test code = 7110) COVID-19 qualitative Not Detected RT-PCR result (test code = 08730-4) [facility] HospitalCOVID-19 qualitative [id number] 06:47:36 Test Item Value Reference Interpretation Comments Range Interpretation Negative results do (test code = not preclude COVID-19 2636826) infection and should not be used asthe sole basis for treatment or other patient management decisions. Negativeresults must be combined with clinical observations, patient history, andepidemiological information. COVID-19 Not-Detected Not-Detected DISCLAIMER:This qualitative RT-PCR test was result (test code performed using = 61512-0) the Aptima SARS-CoV-2 Assa y ([employer]). This assay is available for i n vitro diagnosti c use under Food and Drug Administration (FDA) Emergency Use Authorizati on (EUA) and has been verified f or clinical use by the [facility]. Information on the FDA policy for diagnostic tests for coronavirus disease- 2019 i s available at:https://www. fd a.gov/medical-d ev ices/emergency- si tuations-medica l- devices/faqs-di ag nostic-testing- sa rs-cov-2It is critical that health care providers and patients review the applicable fact sheet(s) i n interpreting or understanding t he test results th at are available upon request.METHODO LO GY:This assay utilizes reagen ts for nucleic aci d extraction and hairspring cutter mediated amplification. COVID-19 See link below for PDF Case Number: qualitative RT-PCR Lab Report [id number] PDF (test code = 7070) [facility] HospitalBAL cell count and aybeyjeyqdma1498-71-31 03:16:00 Test Item Value Reference Range Interpretation Comments BAL specimen source MARC BAL (test code = 78756-7) BAL cell count (test 0.110 m/mL 69% VIa bility.Normal code = 74972-7) ranges: Nons mokers: 0.007 - 0.363 Smokers: 0 - 1. 31 BAL PAMS (test code = 2 % Normal ranges: 08011-3) Nonsmokers: 65 - 100 Smokers: 81 - 1 00 BAL PMNS (test code = 97 % Normal ranges: 9306-2) Nonsmokers: 0 - 3 Smokers: 0 - 2 BAL lymphs (test code 1 % Normal ranges: = 92858-4) Nonsmokers: 0 - 10 Smokers: 0 - 5 [facility] RNA [Presence] in Respiratory specimen by CONNOR with probe [id number] 01:47:36 Test Item Value Reference Range Interpretation Comments SARS-CoV-2 (COVID-19) RNA Not detected [Presence] in Respiratory specimen by CONNOR with probe detection (test code = 09761-8) Whether patient is employed in a Unknown healthcare setting (test code = 18809-0) Whether the patient has symptoms Unknown related to condition of interest (test code = 96368-5) Whether the patient was Unknown hospitalized for condition of interest (test code = 42045-8) Whether the patient was admitted Unknown to intensive care unit (ICU) for condition of interest (test code = 50399-5) Whether patient resides in a Unknown congregate care setting (test code = 28408-1) status (test code = Unknown 34502-9) Date and time of symptom onset Unknown (test code = 04965-8) [facility]ICK[facility] WESTAmylase level, misc [id number] 01:38:00 Test Item Value Reference Range Interpretation Comments Fluid type (test BAL code = 50694-7) Amylase, fluid 23 U/L The reference interval(s) (test code = and other metho d performance 1795-4) specifications have not been established for this body fluid. The test results must be integrated i nto the clinical contex t for interpretation. This test has been modified f rom the senior medical director?s instructions. The performance characteristics were determined by Mellissa hernandez [facility] martha in a manner consiste nt with CLIA requirements. T his test has not been cleare d or approved by the [place] and Drug Administration. [facility] 12 [id number] 14:32:14 Test Item Value Reference Range Interpretation Comments Ventricular rate (test 72 code = 253) Atrial rate (test code 72 = 255) WA interval (test code 178 = 266) QRSD interval (test 78 code = 260) QT interval (test code 392 = 264) QTC interval (test code 429 = 265) P axis 1 (test code = 84 267) QRS axis 1 (test code = 53 268) T wave axis (test code 73 = 270) EKG impression (test Normal sinus code = 273) rhythm-Cannot rule out Anterior infarct , age undetermined-Abnormal ECG-In automated comparison with ECG of 11-SEP-2022 19:20,-No significant change was found- [facility] [id number] 16:54:55 Test Item Value Reference Range Interpretation Comments Case number (test code = [id number]) Surgical pathology See link below for report (test code = PDF Lab Report 2255) Result status (test code This is Final Report = [id number]) for [id number] [facility] [id number] 02:54:00 Test Item Value Reference Range Interpretation Comments POC glucose (test code = 114 mg/dL 65-99 H Ope rator Name: Ceferino 37529-2Deepak Snyder ID: [id number] able: [facility] Notified site supervisor Interpretation (test Abnormal code = 71423-4) [facility] minute walk w/ pulse [id number] 15:16:43 Test Item Value Reference Range Interpretation Comments Six Minute Walk Distance (ft) 344.00 Feet (test code = 7665) Six Minute Walk Distance (m) 105.00 m 374.61-652.61 (test code = 7614) Six Minute Walk Distance 514 Predicted (test code = 5645) Six Minute Walk Distance % 20.4 % Predicted (test code = 5646) SP02 at Rest (test code = 7617) 83.00 % SP02 at after 1 minute (test 88.00 % code = 7630) SP02 at after 2 minutes (test 92.00 % code = 7636) SP02 at after 3 minutes (test 92.00 % code = 7642) SP02 at after 4 minutes (test 95.00 % code = 7648) SP02 at after 5 minutes (test 95.00 % code = 7654) SP02 at after 6 minutes (test 94.00 % code = 7660) Heart Rate at Rest (test code = 76.00 1/min 7615) Heart Rate after 1 minute (test 98.00 1/min code = 7629) Heart Rate after 2 minutes (test 108.00 1/min code = 7635) Heart Rate after 3 minutes (test 110.00 1/min code = 7641) Heart Rate after 4 minutes (test 103.00 1/min code = 7647) Heart Rate after 5 minutes (test 101.00 1/min code = 7653) Heart Rate after 6 minutes (test 103.00 1/min code = 7659) Supplemental O2 During Rest 0.00 L/min (test code = 7624) Supplemental O2 after 1 minute 4.00 L/min (test code = 7634) Supplemental O2 [...] BP Systolic at Rest (test code = 121.00 mmHg 7622) BP Systolic after 6 minutes 139.00 mmHg (test code = 7662) BP Diastolic at Rest (test code 59.00 mmHg = 7623) BP Diastolic after 6 minutes 63.00 mmHg (test code = 7663) Wanda Dyspnea Scale at Rest (test 5.00 code = 7619) Wanda Dyspnea Scale after 6 8.00 minutes (test code = 7661) Lowest SpO2 (test code = 7618) 83.00 % Highest Heart Rate (test code = 106.00 BPM 7616) Lap Count (test code = 7625) 2.00 Number of Stops (test code = 3.00 7626) Gait Speed (test code = 7627) 6.00 sec [facility] Hospital[facility]pirom[facility], lung volumes, [facility]/[id number] 13:53:37 Test Item Value Reference Range Interpretation Comments FEV1 Pre (test code = 0.30 L 1.68-2.80 5348) FEV1 Predicted (test 2.25 code = 5302) FEV1 LLN (test code = 1.68 5347) FEV1 % Pre of 13.5 % Predicted (test code = 5308) FVC Pre (test code = 0.99 L 2.14-3.61 5354) FVC Predicted (test 2.86 code = 5307) FVC LLN (test code = 2.14 5353) FVC % Pre of Predicted 34.8 % (test code = 5355) FEV1/FVC % Pre (test 30.50 % 66.82-89.87 code = 5361) FEV1/FVC % Predicted 79 (test code = 5359) FEV1/FVC % LLN (test 67 code = 5360) FEV1/FVC % Pre of 38.5 % Predicted (test code = 5362) FEF 25-75% Pre (test 0.10 L/s 1.02-3.45 code = 5547) FEF 25-75% Predicted 2.05 (test code = 5546) FEF 25-75% LLN (test 1.02 code = 5545) FEF 25-75% % Pre of 5.0 % Predicted (test code = 5548) PEF Pre (test code = 1.16 L/s 4.21-7.42 5367) PEF Predicted (test 5.82 code = 5310) PEF LLN (test code = 4.21 5366) PEF % Pre of Predicted 20.0 % (test code = 5368) MIP Sustained (test 36.50 See_Comment [Automa blayne message] code = 8396) The system [employer] generated this result transmitted ref erence range: 110.08 - 110.08 cmH2O. The refe rence range was not u sed to interpret this result as normal/abnor mal. MIP Madhuri Predicted 110.08 Value (test code = 8397) MIP Madhuri LLN (test code 110.08 = 8398) MIP Madhuri % of Predicted 33.2 % (test code = 8399) MIP PK (test code = 41.24 See_Comment [Automa blayne message] 8400) The system [employer] generated this result transmitted ref erence range: 110.08 - 110.08 cmH2O. The refe rence range was not u sed to interpret this result as normal/abnor mal. MIP PK Predicted Value 110.08 (test code = 8401) MIP PK LLN (test code 110.08 = 8402) MIP PK % of Predicted 37.5 % (test code = 8403) MEP Sustained (test 76.41 See_Comment [Automa blayne message] code = 8408) The system [employer] generated this result transmitted ref erence range: 24.22 - 112.24 cmH2O. The refe rence range was not u sed to interpret this result as normal/abnor mal. MEP Madhuri Predicted 68.23 Value (test code = 8409) MEP Madhuri LLN (test code 24.22 = 8410) MEP Madhuri % of Predicted 112.0 % (test code = 8411) MEP PK (test code = 85.90 See_Comment [Automa blayne message] 8412) The system [employer] generated this result transmitted ref erence range: 24.22 - 112.24 cmH2O. The refe rence range was not u sed to interpret this result as normal/abnor mal. MEP PK Predicted Value 68.23 (test code = 8413) MEP PK LLN (test code 24.22 = 8414) MEP PK % of Predicted 125.9 % (test code = 8415) [facility] [id number] 15:29:30 Test Item Value Reference Range Interpretation Comments Six Minute Walk Distance (ft) 492.00 Feet (test code = 7665) Six Minute Walk Distance (m) 150.00 m 379.35-657.35 (test code = 7614) Six Minute Walk Distance 518 Predicted (test code = 5645) Six Minute Walk Distance % 28.9 % Predicted (test code = 5646) SP02 at Rest (test code = 7617) 100.00 % SP02 at after 1 minute (test 95.00 % code = 7630) SP02 at after 2 minutes (test 92.00 % code = 7636) SP02 at after 3 minutes (test 94.00 % code = 7642) SP02 at after 4 minutes (test 93.00 % code = 7648) SP02 at after 5 minutes (test 93.00 % code = 7654) SP02 at after 6 minutes (test 95.00 % code = 7660) Heart Rate at Rest (test code = 75.00 1/min 7615) Heart Rate after 1 minute (test 89.00 1/min code = 7629) Heart Rate after 2 minutes (test 98.00 1/min code = 7635) Heart Rate after 3 minutes (test 100.00 1/min code = 7641) Heart Rate after 4 minutes (test 101.00 1/min code = 7647) Heart Rate after 5 minutes (test 105.00 1/min code = 7653) Heart Rate after 6 minutes (test 106.00 1/min code = 7659) Supplemental O2 During Rest 4.00 L/min (test code = 7624) Supplemental O2 after 1 minute 4.00 L/min (test code = 7634) Supplemental O2 [...] BP Systolic at Rest (test code = 139.00 mmHg 7622) BP Systolic after 6 minutes 165.00 mmHg (test code = 7662) BP Diastolic at Rest (test code 67.00 mmHg = 7623) BP Diastolic after 6 minutes 74.00 mmHg (test code = 7663) Wanda Dyspnea Scale at Rest (test 4.00 code = 7619) Wanda Dyspnea Scale after 6 9.00 minutes (test code = 7661) Lowest SpO2 (test code = 7618) 92.00 % Highest Heart Rate (test code = 106.00 BPM 7616) Lap Count (test code = 7625) 3.00 Premature Stop (test code = 0.00 7621) Number of Stops (test code = 2.00 7626) Gait Speed (test code = 7627) 7.07 sec Lap Distance in meters (test 40.00 m code = 7620) [facility] dojpydgd7881-84-87 15:29:30 Test Item Value Reference Range Interpretation Comments Six Minute Walk Distance (ft) 492.00 Feet (test code = 7665) Six Minute Walk Distance (m) 150.00 m 379.35-657.35 (test code = 7614) Six Minute Walk Distance 518 Predicted (test code = 5645) Six Minute Walk Distance % 28.9 % Predicted (test code = 5646) SP02 at Rest (test code = 7617) 100.00 % SP02 at after 1 minute (test 95.00 % code = 7630) SP02 at after 2 minutes (test 92.00 % code = 7636) SP02 at after 3 minutes (test 94.00 % code = 7642) SP02 at after 4 minutes (test 93.00 % code = 7648) SP02 at after 5 minutes (test 93.00 % code = 7654) SP02 at after 6 minutes (test 95.00 % code = 7660) Heart Rate at Rest (test code = 75.00 1/min 7615) Heart Rate after 1 minute (test 89.00 1/min code = 7629) Heart Rate after 2 minutes (test 98.00 1/min code = 7635) Heart Rate after 3 minutes (test 100.00 1/min code = 7641) Heart Rate after 4 minutes (test 101.00 1/min code = 7647) Heart Rate after 5 minutes (test 105.00 1/min code = 7653) Heart Rate after 6 minutes (test 106.00 1/min code = 7659) Supplemental O2 During Rest 4.00 L/min (test code = 7624) Supplemental O2 after 1 minute 4.00 L/min (test code = 7634) Supplemental O2 [...] BP Systolic at Rest (test code = 139.00 mmHg 7622) BP Systolic after 6 minutes 165.00 mmHg (test code = 7662) BP Diastolic at Rest (test code 67.00 mmHg = 7623) BP Diastolic after 6 minutes 74.00 mmHg (test code = 7663) Wanda Dyspnea Scale at Rest (test 4.00 code = 7619) Wanda Dyspnea Scale after 6 9.00 minutes (test code = 7661) Lowest SpO2 (test code = 7618) 92.00 % Highest Heart Rate (test code = 106.00 BPM 7616) Lap Count (test code = 7625) 3.00 Premature Stop (test code = 0.00 7621) Number of Stops (test code = 2.00 7626) Gait Speed (test code = 7627) 7.07 sec Lap Distance in meters (test 40.00 m code = 7620) [facility] vujowrj2278[facility]71-[facility] 15:27:52 Test Item Value Reference Range Interpretation [...] Predicted (test code = 21.7 % 5368) [facility] fbmfrkc5930-11-00 15:27:52 Test Item Value Reference Range Interpretation [...] Predicted (test code = 21.7 % 5368) [facility] wypthbvq1532-93-79 14:28:47 Test Item Value Reference Range Interpretation [...] meters (test code 40.00 m = 7620) [facility] gumaejjp5399-17-73 14:28:47 Test Item Value Reference Range Interpretation [...] meters (test code 40.00 m = 7620) [facility] aqqwavrp6342-91-49 14:44:17 Test Item Value Reference Range Interpretation [...] Speed (test code = 7627) 9.30 sec [facility] dintrncd6087-08-05 14:44:17 Test Item Value Reference Range Interpretation [...] Speed (test code = 7627) 9.30 sec [facility] 14:05:38 Test Item Value Reference Range Interpretation [...] Predicted (test code = 21.6 % 5368) [facility]Tagfydqtza6281-14-78 14:05:38 Test Item Value Reference Range Interpretation [...] Predicted (test code = 21.6 % 5368) [facility] edqaljp7959-83-20 19:49:03 Test Item Value Reference Range Interpretation Comments Case number (test code = [id number]) Surgical pathology See link below for report (test code = PDF Lab Report [id number]) Result status (test code This is Final Report = [id number]) for [id number] [facility] RNA [Presence] in Respiratory specimen by CONNOR with probe [id number] 16:07:37 Test Item Value Reference Range Interpretation Comments SARS-CoV-2 (COVID-19) RNA Not detected [Presence] in Respiratory specimen by CONNOR with probe detection (test code = 54852-7) Whether patient is employed in a Unknown healthcare setting (test code = 00283-0) Whether the patient has symptoms Unknown related to condition of interest (test code = 19271-3) Whether the patient was Unknown hospitalized for condition of interest (test code = 52942-6) Whether the patient was admitted Unknown to intensive care unit (ICU) for condition of interest (test code = 69953-8) Whether patient resides in a Unknown congregate care setting (test code = 92406-4) status (test code = Unknown 87820-5) Date and time of symptom onset Unknown (test code = 62136-0) MARISELA TOBAR [id number] 21:59:31 Test Item Value Reference Range Interpretation Comments TROPONIN I (test code = 0.005 ng/mL <=0.034 9266623997) KYLE (test code = KYLE) Reference (Normal) [...] biotin. Lab Interpretation Normal (test code = 12338-5) [id number] 21:56:09 Test Item Value Reference Range Interpretation Comments NT-proBNP (test code = 116 pg/mL <=125 8315364548) KYLE (test code = KYLE) Biotin has been reported to cause a negative bias, interpret results relative to patient's use of biotin. Lab Interpretation (test Normal code = 71925-2) [facility]OLIC PAN[facility] ([id number])2022-03-17 21:54:53 Test Item Value Reference Range Interpretation Comments NA (test code = 138 mmol/L 135-145 3368826973) K (test code = 4.5 mmol/L 3.5-5.0 7736403736) CL (test code = 92 mmol/L 98-108 L 8335619951) CO2 TOTAL (test code = 39 mmol/L 23-31 H 7347385389) AGAP (test code = 7 2-16 8426856653) BUN (test code = 11 mg/dL 7-23 7395951836) GLUCOSE (test code = 116 mg/dL 70-110 H 4455237607) CREATININE (test code = 0.40 mg/dL 0.50-1.04 L 5772447426) TOTAL BILI (test code = 0.7 mg/dL 0.1-1.2 3544085240) CALCIUM (test code = 9.6 mg/dL 8.6-10.6 6491277981) T PROTEIN (test code = 7.8 g/dL 6.3-8.2 2305484802) ALBUMIN (test code = 4.2 g/dL 3.5-5.0 3789887918) ALK PHOS (test code = 90 U/L 34-122 4598811908) ALTv (test code = 11 U/L 5-35 1742-6) AST(SGOT) (test code = 28 U/L 13-40 5328637910) eGFR (test code = 161.7 mL/min/1.73m2 9507987297) KYLE (test code = KYLE) Association of [...] tests). Lab Interpretation Abnormal (test code = 83017-5) [facility] WITH [id number] 21:36:11 Test Item Value Reference Range Interpretation [...] RDW-SD (test code = 42.0 fL 39.0-49.9 91905-1) RDW-CV (test code = 12.7 % 12.0-15.5 788-0) PLT (test code = 283 See_Comment [Automated 777-3) message] The sy stem which generated this result transmitted reference range : 166 - 358 10*3/ ?L. The reference r arnulfo was not used to interpret this result as normal/abnormal . MPV (test code = 9.6 fL 9.5-12.9 97610-1) NRBC/100 WBC (test 0.0 See_Comment [Automat ed code = 3238816090) message] The system which generated this result transmitted reference range : 0.0 - 10.0 /100 WBCs. The refer ence range was not u sed to interpret th is result as normal/abnormal . NRBC x10^3 (test code See_Comment [Auto mated = 5077608756) message] The s ystem which generated this result transmitted reference range : 10*3/?L. The reference range was not used to interpret this result as normal/abnormal . GRAN MAT (NEUT) % 72.1 % (test code = 770-8) IMM GRAN % (test code 0.40 % = 7637505869) LYMPH % (test code = 18.7 % 736-9) MONO % (test code = 5.1 % 5905-5) EOS % (test code = 3.5 % 713-8) BASO % (test code = 0.2 % 706-2) GRAN MAT x10^3(ANC) 5.83 10*3/uL 1.88-7.09 (test code = 2170264803) IMM GRAN x10^3 (test 0.03 10*3/uL 0.00-0.06 code = 1118558408) LYMPH x10^3 (test code 1.51 10*3/uL 1.32-3.29 = 731-0) MONO x10^3 (test code 0.41 10*3/uL 0.33-0.92 = 742-7) EOS x10^3 (test code = 0.28 10*3/uL 0.03-0.39 711-2) BASO x10^3 (test code 0.01-0.07 = 704-7) Lab Interpretation Abnormal (test code = 30724-7) [facility] [id number] 21:28:06 Test Item Value Reference Interpretation Comments Range TROPONIN I (test 0.004 ng/mL See_Comment [Automated code = 0119607920) message] The system which generated this result [...] biotin. Lab Interpretation Normal (test code = 25383-4) [facility] [id number] 21:24:45 Test Item Value Reference Range Interpretation Comments NT-proBNP (test code 79 pg/mL See_Comment [Autom ated = 3509172831) message] The system which generated this result transmitted reference range : <=125. The reference range was not used to interpret this result as normal/abnormal . YKLE (test code = KYLE) Biotin has been reported to cause a negative bias, interpret results relative to patient's use of biotin. Lab Interpretation Normal (test code = 63394-7) [facility]. METABOLIC PANEL ([id number])2022-03-01 21:16:23 Test Item Value Reference Range Interpretation Comments NA (test code = 136 mmol/L 135-145 7712328673) K (test code = 4.1 mmol/L 3.5-5.0 1340570585) CL (test code = 94 mmol/L 98-108 L 2383778630) CO2 TOTAL (test code = 40 mmol/L 23-31 H 4716871854) AGAP (test code = 2-16 2490096276) BUN (test code = 15 mg/dL 7-23 7630730992) GLUCOSE (test code = 98 mg/dL 70-110 1037802410) CREATININE (test code = 0.50 mg/dL 0.50-1.04 0598121239) TOTAL BILI (test code = 0.4 mg/dL 0.1-1.9 9039824095) CALCIUM (test code = 9.7 mg/dL 8.6-10.6 6413627618) T PROTEIN (test code = 7.6 g/dL 6.3-8.2 0359913909) ALBUMIN (test code = 4.3 g/dL 3.5-5.0 7112877215) ALK PHOS (test code = 91 U/L 34-122 5346076453) ALTv (test code = 12 U/L 5-35 1742-6) AST(SGOT) (test code = 21 U/L 13-40 3546970125) eGFR (test code = mL/min/1.73m2 9415225404) KYLE (test code = KYLE) Association of [...] tests). Lab Interpretation Abnormal (test code = 54237-2) [facility] WITH [id number] 21:08:04 Test Item Value Reference Range Interpretation Comments WBC (test code = See_Comment [Automated 1660-2) message] The sy stem which generated this result transmitted reference range : 4.30 - 11.10 10*3/?L. The reference range was not used to interpret this result as normal/abnormal . RBC (test code = See_Comment L [Automated 439-8) message] The sy stem which generated this [...] RDW-SD (test code = 44.2 fL 39.0-49.9 02163-5) RDW-CV (test code = 13.2 % 12.0-15.5 788-0) PLT (test code = See_Comment [Automated 777-3) message] The sy stem which generated this result transmitted reference range : 166 - 358 10*3/ ?L. The reference r arnulfo was not used to interpret this result as normal/abnormal . MPV (test code = 9.9 fL 9.5-12.9 52317-2) NRBC/100 WBC (test See_Comment [Automat ed code = 3890410606) message] The system which generated this result transmitted reference range : 0.0 - 10.0 /100 WBCs. The refer ence range was not u sed to interpret th is result as normal/abnormal . NRBC x10^3 (test code See_Comment [Auto mated = 8093892721) message] The s ystem which generated this result transmitted reference range : 10*3/?L. The reference range was not used to interpret this result as normal/abnormal . GRAN MAT (NEUT) % 63.0 % (test code = 770-8) IMM GRAN % (test code 0.20 % = 0687882543) LYMPH % (test code = 23.3 % 736-9) MONO % (test code = 7.6 % 5905-5) EOS % (test code = 5.4 % 713-8) BASO % (test code = 0.5 % 706-2) GRAN MAT x10^3(ANC) 5.23 10*3/uL 1.88-7.09 (test code = 9918238340) IMM GRAN x10^3 (test 0.00-0.06 code = 2082428630) LYMPH x10^3 (test code 1.93 10*3/uL 1.32-3.29 = 731-0) MONO x10^3 (test code 0.63 10*3/uL 0.33-0.92 = 742-7) EOS x10^3 (test code = 0.45 10*3/uL 0.03-0.39 H 711-2) BASO x10^3 (test code 0.04 10*3/uL 0.01-0.07 = 704-7) Lab Interpretation Abnormal (test code = 38007-6) [facility]/ [facility] zmejoikv3421-02-05 17:46:53 Test Item Value Reference Range Interpretation [...] meters (test 40.00 m code = 7620) [facility] brbdbakp4312-65-74 17:46:53 Test Item Value Reference Range Interpretation [...] meters (test 40.00 m code = 7620) [facility] lwdjybv7904-00-71 16:23:50 Test Item Value Reference Range Interpretation [...] [Auto mated message] = 5514) The system [employer] generated this result transmitted ref erence range: [...] [Aut omated message] = 5521) The system [employer] generated this result transmitted ref erence range: [...] See_Comment [Autom ated message] 5507) The system [employer] generated this result transmitted ref erence range: [...] ated message] code = 5528) The system [employer] generated this result transmitted ref erence range: [...] Predicted 26.3 % (test code = 5368) [facility] vpvnhdc2512-68-64 16:23:50 Test Item Value Reference Range Interpretation [...] code 17.57 See_Comment [Auto mated message] = 5593) The system [employer] generated this result transmitted ref erence range: [...] [Aut omated message] = 5521) The system [employer] generated this result transmitted ref erence range: [...] See_Comment [Autom ated message] 5507) The system [employer] generated this result transmitted ref erence range: [...] ated message] code = 5528) The system [employer] generated this result transmitted ref erence range: [...] Predicted 26.3 % (test code = 5368) [facility] [id number] 21:51:42 Test Item Value Reference Range Interpretation Comments LACTIC ACID (test code = 0.96 mmol/L 0.50-2.20 5131641744) Lab Interpretation (test code = Normal 04224-8) [facility] [id number] 19:01:12 Test Item Value Reference Interpretation Comments Range TROPONIN I (test 0.004 ng/mL See_Comment [Automated code = 1137226373) message] The system which generated this result [...] biotin. Lab Interpretation Normal (test code = 56491-3) [facility] [id number] 18:34:27 Test Item Value Reference Range Interpretation Comments NT-proBNP (test code 124 pg/mL See_Comment [Autom ated = 7952604303) message] The system which generated this result transmitted reference range : <=125. The reference range was not used to interpret this result as normal/abnormal . KYLE (test code = KYLE) Biotin has been reported to cause a negative bias, interpret results relative to patient's use of biotin. Lab Interpretation Normal (test code = 55173-5) [facility]RM[facility]AS [id number] 18:30:09 Test Item Value Reference Range Interpretation Comments APTT Patient (test See_Comment [Automat ed code = 3173-2) message] The system which generated this result transmitted reference range : 23 - 38 Seconds . The reference range was not used to interpr et this result as normal/abnormal . KYLE (test code = KYLE) The [facility] patient population mean normal value for aPTT is 30 seconds. Lab Interpretation Normal (test code = 08079-9) [facility] / [id number] 18:28:07 Test Item Value Reference Range Interpretation Comments PROTIME PATIENT (test See_Comment [Auto mated message] code = 5964-2) The system [employer] generated this result transmitted ref erence range: 12.0 - 1 4.7 Seconds. The re ference range was not u sed to interpret this result as normal/abnor mal. INR (test code = 6301-6) Nor mal INR <1.1; Warfarin Therap eutic range 2.0 to 3. 0 or 2.5 to 3.5, dep ending upon the indica tions. Lab Interpretation (test Normal code = 37370-0) [facility]. METABOLIC PANEL ([id number])2021-12-27 18:26:10 Test Item Value Reference Range Interpretation Comments NA (test code = 138 mmol/L 135-145 7100587790) K (test code = 4.7 mmol/L 3.5-5.0 4405654416) CL (test code = 93 mmol/L 98-108 L 1683379643) CO2 TOTAL (test code = 36 mmol/L 23-31 H 8721392562) AGAP (test code = 2-16 2537305740) BUN (test code = 7 mg/dL 7-23 0830485899) GLUCOSE (test code = 130 mg/dL 70-110 H 2138543991) CREATININE (test code = 0.43 mg/dL 0.50-1.04 L 9908233892) TOTAL BILI (test code = 0.6 mg/dL 0.1-1.3 8605605014) CALCIUM (test code = 9.6 mg/dL 8.6-10.6 3919833077) T PROTEIN (test code = 7.0 g/dL 6.3-8.2 0719111514) ALBUMIN (test code = 4.0 g/dL 3.5-5.0 5061663796) ALK PHOS (test code = 139 U/L 34-122 H 0354178585) ALTv (test code = 15 U/L 5-35 1742-6) AST(SGOT) (test code = 23 U/L 13-40 0995888079) eGFR (test code = mL/min/1.73m2 4792452607) KYLE (test code = KYLE) Association of [...] tests). Lab Interpretation Abnormal (test code = 13317-3) [facility] WITH [id number] 17:52:25 Test Item Value Reference Range Interpretation Comments WBC (test code = See_Comment [Automated -2) message] The sy stem which generated this result transmitted reference range : 4.30 - 11.10 10*3/?L. The reference range was not used to interpret this result as normal/abnormal . RBC (test code = See_Comment L [Automated 405-8) message] The sy stem which generated this [...] RDW-SD (test code = 40.5 fL 39.0-49.9 22588-4) RDW-CV (test code = 12.2 % 12.0-15.5 788-0) PLT (test code = See_Comment H [Automated 777-3) message] The sy stem which generated this result transmitted reference range : 166 - 358 10*3/ ?L. The reference r arnulfo was not used to interpret this result as normal/abnormal . MPV (test code = 9.3 fL 9.5-12.9 L 06265-6) NRBC/100 WBC (test See_Comment [Automat ed code = 5265788301) message] The system which generated this result transmitted reference range : 0.0 - 10.0 /100 WBCs. The refer ence range was not u sed to interpret th is result as normal/abnormal . NRBC x10^3 (test code See_Comment [Auto mated = 5805142962) message] The s ystem which generated this result transmitted reference range : 10*3/?L. The reference range was not used to interpret this result as normal/abnormal . GRAN MAT (NEUT) % 75.2 % (test code = 770-8) IMM GRAN % (test code 0.40 % = 9090654478) LYMPH % (test code = 13.5 % 736-9) MONO % (test code = 7.4 % 5905-5) EOS % (test code = 3.2 % 713-8) BASO % (test code = 0.3 % 706-2) GRAN MAT x10^3(ANC) 7.56 10*3/uL 1.88-7.09 H (test code = 0671926225) IMM GRAN x10^3 (test 0.04 10*3/uL 0.00-0.06 code = 8533523415) LYMPH x10^3 (test code 1.36 10*3/uL 1.32-3.29 = 731-0) MONO x10^3 (test code 0.74 10*3/uL 0.33-0.92 = 742-7) EOS x10^3 (test code = 0.32 10*3/uL 0.03-0.39 711-2) BASO x10^3 (test code 0.03 10*3/uL 0.01-0.07 = 704-7) Lab Interpretation Abnormal (test code = 47685-1) [facility]an[facility] (TTE)2021-12-04 17:06:26 Test Item Value Reference Range Interpretation Comments Height (test code = in 4019962026) Weight (test code = lbs 6528484989) Systolic BP (test code = mmHg 1790804749) Diastolic BP (test code mmHg = 9019710603) Heart Rate (test code = bpm 7830376167) BSA (test code = 1.58 m2 5969773662) LVOT diameter (test code 1.90 cm = 4812710358) LVOT area (test code = 2.80 cm2 1402554486) Ao root diam (test code 3.20 cm = 9604351168) Aortic root (test code = 3.2 cm 0950081535) Ao root annulus (test 3.2 cm code = 1088990212) LA size (test code = 3.7 cm 0464924911) ACS (test code = 2.16 cm 9092319848) PV PEAK VELOCITY (test 71.3 cm/s code = 9043419616) PV peak gradient (test mmHg code = 2501386028) MV E-F slope (test code 63.20 cm/s = 0693686147) MV Peak E Lester (test code 62.1 cm/s = 4052370281) MV Peak A Lester (test code 115.9 cm/s = 4090202764) E/A ratio (test code = ratio 3551039882) MV valve area p 1/2 11.10 cm2 method (test code = 4354154782) MV dec slope (test code 910.40 cm/s2 = 1764184526) MV P1/2t max lester (test 61.60 cm/s code = 8127355772) LVOT stroke volume (test 66.20 cm3 code = 2018711981) LVOT peak lester (test code 140.2 cm/s = 0595415912) LVOT mn grad (test code mmHg = 4729560448) AV LVOT peak gradient mmHg (test code = 1178271053) LVOT peak VTI (test code 23.5 cm = 9439037042) LV V1 mean (test code = 95.60 cm/s 4239439717) Aortic valve mean 132.1 cm/s velocity (test code = 1211274454) Ao peak lester (test code = 198.2 cm/s 0936344355) Ao VTI (test code = 33.5 cm 3822130836) AV area by cont VTI 2.0 cm2 (test code = 8361753600) AV area peak lester (test 2.0 cm2 code = 1703341108) Ao max PG (test code = 15.70 mm[Hg] 4110848901) AV peak gradient (test mmHg code = 9129781566) AV valve area (test code 1.98 cm2 = 6377129887) AV mean gradient (test mmHg code = 5025131947) LVIDD (test code = 3.70 cm 8656463346) Left Ventricular End 59.7 mL Diastolic Volume by Teichholz Method (test code = 2275470) IVS (test code = 0.87 cm 8527533112) Interventricular Septum 0.87 cm Diastolic Thickness by 2D (test code = 8395116) LVPWD (test code = 0.96 cm 2915498172) PW (test code = 0.96 cm 0.6-1.0 2039231267) EF(Teich) (test code = 68.70 % 0450886438) LVIDS (test code = 2.33 cm 0959609527) Left Ventricular End 18.7 mL Systolic Volume by Teichholz Method (test code = 0635648) FS (test code = 38 % 5788492118) EF - 2D (test code = 68.70 % 28178371) TR Peak Lester (test code = 233.5 cm/s 4305172503) Triscuspid Valve mmHg Regurgitation Peak Gradient (test code = 9863694300) Radiology Study observation (narrative) (test code = 21096-1) KYLE (test code = KYLE) ?Left?Ventricle: Left [...] mL of Lumason ultrasound enhancing agent used. [facility]ERR[facility]IN [id number] 08:39:42 Test Item Value Reference Range Interpretation Comments FERRITIN (test code = 180.0 ng/mL 11.0-264.0 5585397886) KYLE (test code = KYLE) Biotin has been reported to cause a negative bias, interpret results relative to patient's use of biotin. Lab Interpretation (test Normal code = 20611-3) [facility] [id number] 08:34:01 Test Item Value Reference Range Interpretation Comments IRON (test code = 25 ug/dL 50-160 L Slight hem olysis 6053129560) TIBC (test code = 227 ug/dL 250-410 L 9782925461) % FE SAT (test code = 11 % 20-50 L 6588041510) Lab Interpretation (test Abnormal code = 54087-0) [facility] (99818)(TOTAL CHOLESTEROL, TRIGLYCERIDES, HDL)2021-12-04 08:04:39 Test Item Value Reference Range Interpretation Comments CHOL (test code = 179 mg/dL 120-200 0314142408) HDL (test code = 74 mg/dL See_Comment [Automated message] 9592369484) The system [employer] generated this result transmit blayne reference range : >=50. The refer ence range was not u sed to interpret th is result as normal/abnormal . HDLC RATIO (test code = See_Comment [Au tomated message] 6536370359) The system [employer] generated this result transmit blayne reference range : <=4.5. The refe rence range was not u sed to interpret th is result as normal/abnormal . TRIG (test code = 159 mg/dL 30-170 6746316486) LDL CHOL (test code = 73 mg/dL See_Comment [Auto mated message] 42096-9) The system [employer] generated this result transmit blayne reference range : <=160. The refe rence range was not u sed to interpret th is result as normal/abnormal . VLDL (test code = 32 mg/dL 5-60 7574955244) Lab Interpretation (test Normal code = 99336-1) [facility]Glycosylated Hemoglobin (A1C)2021-12-04 01:36:16 Test Item Value Reference Range Interpretation Comments HGB A1C (test code = 5.2 % 4.0-5.7 4548-4) KYLE (test code = KYLE) Reference RangesNormal: <5.7%Prediabetes: 5.7 - 6.4%Diabetes: > 6.5% Lab Interpretation (test Normal code = 48015-8) [facility] HospitalTHYROID STIMULATING [id number] 23:05:38 Test Item Value Reference Range Interpretation Comments TSH (test code = See_Comment [Automated message] 3596229716) The system [employer] generated this result transmitted ref erence range: 0.45 - 4 .70 mIU/L. The refe rence range was not u sed to interpret this result as normal/abnor mal. Lab Interpretation (test Normal code = 11080-4) [facility] HospitalTROPONIN [id number] 22:47:16 Test Item Value Reference Interpretation Comments Range TROPONIN I (test 0.003 ng/mL See_Comment [Automated code = 1929876112) message] The system which generated this result [...] biotin. Lab Interpretation Normal (test code = 56885-6) [facility]N-[facility]MINAL GAJ-[id number] 22:44:16 Test Item Value Reference Range Interpretation Comments NT-proBNP (test code 212 pg/mL See_Comment H [Autom ated = 4194642385) message] The system which generated this result transmitted reference range : <=125. The reference range was not used to interpret this result as normal/abnormal . KYLE (test code = KYLE) Biotin has been reported to cause a negative bias, interpret results relative to patient's use of biotin. Lab Interpretation Abnormal (test code = 60131-4) [facility] HospitalACTIVATED PARTIAL THRMPLAS [id number] 22:42:20 Test Item Value Reference Range Interpretation Comments APTT Patient (test See_Comment [Automat ed code = 3173-2) message] The system which generated this result transmitted reference range : 23 - 38 Seconds . The reference range was not used to interpr et this result as normal/abnormal . KYLE (test code = KYLE) The [facility] patient population mean normal value for aPTT is 30 seconds. Lab Interpretation Normal (test code = 05874-7) [facility] HospitalPROTHROMBIN TIME / [id number] 22:39:59 Test Item Value Reference Range Interpretation [...] tions. Lab Interpretation (test Normal code = 91933-4) [facility] HospitalMAGNESIUM2022-10-29 22:34:58 Test Item Value Reference Range Interpretation Comments MAGNESIUM (test code = 5647166300) 1.5 mg/dL 1.7-2.4 L Lab Interpretation (test code = Abnormal 14335-1) [facility] HospitalCOMP. METABOLIC PANEL (90385)2021-12-03 22:34:38 Test Item Value Reference Range Interpretation Comments NA (test code = 137 mmol/L 135-145 1246464056) K (test code = 4.0 mmol/L 3.5-5.0 6253220778) CL (test code = 93 mmol/L 98-108 L 0182782221) CO2 TOTAL (test code = 39 mmol/L 23-31 H 7015027540) AGAP (test code = 2-16 9804246015) BUN (test code = 16 mg/dL 7-23 3152673472) GLUCOSE (test code = 127 mg/dL 70-110 H 7171365154) CREATININE (test code = 0.57 mg/dL 0.50-1.04 8949783406) TOTAL BILI (test code = 0.5 mg/dL 0.1-1.4 7000580003) CALCIUM (test code = 9.2 mg/dL 8.6-10.6 3749714568) T PROTEIN (test code = 6.5 g/dL 6.3-8.2 6656754638) ALBUMIN (test code = 3.6 g/dL 3.5-5.0 1886202803) ALK PHOS (test code = 62 U/L 34-122 2013911135) ALTv (test code = 13 U/L 5-35 1742-6) AST(SGOT) (test code = 22 U/L 13-40 0183204977) eGFR (test code = mL/min/1.73m2 8233707264) KYLE (test code = KYLE) Association of [...] tests). Lab Interpretation Abnormal (test code = 32753-0) [facility] HospitalLIPASE2022-10-29 22:34:38 Test Item Value Reference Range Interpretation Comments LIPASE (test code = 2773675152) 40 U/L 0-220 Lab Interpretation (test code = Normal 57933-3) [facility] HospitalLactic Acid Whole Sccmd3898-33-03 22:24:41 Test Item Value Reference Range Interpretation Comments LACTIC ACID (test code = 1.21 mmol/L 0.50-2.20 1054853915) Lab Interpretation (test code = Normal 31916-4) [facility] HospitalCB WITH [id number] 22:22:55 Test Item Value Reference Range Interpretation Comments WBC (test code = See_Comment H [Automated 5090-2) message] The system which generated this result transmit blayne reference range : 4.30 - 11.10 10*3/?L. The reference range was not used to interpret this result as normal/abnormal . RBC (test code = See_Comment L [Automated 9-8) message] The system which generated this result [...] RDW-SD (test code = 41.3 fL 39.0-49.9 19665-6) RDW-CV (test code = 12.4 % 12.0-15.5 788-0) PLT (test code = See_Comment H [Automated 777-3) message] The system which generated this result transmit blayne reference range : 166 - 358 10*3/ ?L. The reference range was not u sed to interpret th is result as normal/abnormal . MPV (test code = 9.0 fL 9.5-12.9 L 90287-2) NRBC/100 WBC (test See_Comment [Automat ed code = 9230829371) message] The system which generated this result transmit blayne reference range : 0.0 - 10.0 /100 WBCs. The reference range was not used to interpret this result as normal/abnormal . NRBC x10^3 (test code See_Comment [Auto mated = 0519092899) message] The system which generated this result transmit blayne reference range : 10*3/?L. The reference range was not used to interpret this result as normal/abnormal . GRAN MAT (NEUT) % 76.9 % (test code = 770-8) IMM GRAN % (test code 0.80 % = 2275191085) LYMPH % (test code = 11.2 % 736-9) MONO % (test code = 9.7 % 5905-5) EOS % (test code = 1.3 % 713-8) BASO % (test code = 0.1 % 706-2) GRAN MAT x10^3(ANC) 10.40 10*3/uL 1.88-7.09 H (test code = 8743806727) IMM GRAN x10^3 (test 0.11 10*3/uL 0.00-0.06 H code = 5718646065) LYMPH x10^3 (test code 1.52 10*3/uL 1.32-3.29 = 731-0) MONO x10^3 (test code 1.31 10*3/uL 0.33-0.92 H = 742-7) EOS x10^3 (test code = 0.18 10*3/uL 0.03-0.39 711-2) BASO x10^3 (test code 0.01-0.07 = 704-7) Lab Interpretation Abnormal (test code = 34068-0) [facility] METABOLIC PANEL (NA, K, CL, CO2, GLUCOSE, BUN, CREATININE, CA)2021-11-12 18:25:56 Test Item Value Reference Range Interpretation Comments NA (test code = 140 mmol/L 135-145 7047078913) K (test code = 4.0 mmol/L 3.5-5 4815584769) CL (test code = 93 mmol/L 98-108 L 1832714025) CO2 TOTAL (test code = 38 mmol/L 23-31 H 2824924910) AGAP (test code = 2-16 9737653703) BUN (test code = 14 mg/dL 7-23 4090530387) GLUCOSE (test code = 105 mg/dL 70-110 6365542703) CREATININE (test code = 0.51 mg/dL 0.5-1.04 2505513771) CALCIUM (test code = 9.7 mg/dL 8.6-10.6 5420080636) eGFR (test code = mL/min/1.73m2 6848618391) KYLE (test code = KYEL) Association of Glomerular Filtration Rate (GFR) and [...] tests). Lab Interpretation Abnormal (test code = 65009-4) [facility] WITH [id number] 18:09:35 Test Item Value Reference Range Interpretation Comments WBC (test code = See_Comment [Automated 3290-2) message] The sy stem which generated this result transmitted reference range : 4.30 - 11.10 10*3/?L. The reference range was not used to interpret this result as normal/abnormal . RBC (test code = See_Comment L [Automated 929-8) message] The sy stem which generated this [...] RDW-SD (test code = 42.8 fL 39-49.9 75835-6) RDW-CV (test code = 12.2 % 12-15.5 788-0) PLT (test code = See_Comment [Automated 777-3) message] The sy stem which generated this result transmitted reference range : 166 - 358 10*3/ ?L. The reference r arnulfo was not used to interpret this result as normal/abnormal . MPV (test code = 10.1 fL 9.5-12.9 49285-7) NRBC/100 WBC (test See_Comment [Automat ed code = 9408508512) message] The system which generated this result transmitted reference range : 0.0 - 10.0 /100 WBCs. The refer ence range was not u sed to interpret th is result as normal/abnormal . NRBC x10^3 (test code See_Comment [Auto mated = 0930184942) message] The s ystem which generated this result transmitted reference range : 10*3/?L. The reference range was not used to interpret this result as normal/abnormal . GRAN MAT (NEUT) % 69.9 % (test code = 770-8) IMM GRAN % (test code 0.30 % = 7132978435) LYMPH % (test code = 18.2 % 736-9) MONO % (test code = 6.9 % 5905-5) EOS % (test code = 4.2 % 713-8) BASO % (test code = 0.5 % 706-2) GRAN MAT x10^3(ANC) 4.04 10*3/uL 1.88-7.09 (test code = 4327491810) IMM GRAN x10^3 (test 0-0.06 code = 5851103347) LYMPH x10^3 (test code 1.05 10*3/uL 1.32-3.29 L = 731-0) MONO x10^3 (test code 0.40 10*3/uL 0.33-0.92 = 742-7) EOS x10^3 (test code = 0.24 10*3/uL 0.03-0.39 711-2) BASO x10^3 (test code 0.03 10*3/uL 0.01-0.07 = 704-7) Lab Interpretation Abnormal (test code = 39865-9) [facility]PURVI [id number] 18:39:47 Test Item Value Reference Interpretation Comments Range TROPONIN I (test 0.004 ng/mL See_Comment [Automated code = 4282412946) message] The system which generated this result [...] biotin. Lab Interpretation Normal (test code = 08437-2) [facility]N-[facility]MINAL [id number] 18:36:10 Test Item Value Reference Range Interpretation Comments NT-proBNP (test code 236 pg/mL See_Comment H [Autom ated = 3437362982) message] The system which generated this result transmitted reference range : <=125. The reference range was not used to interpret this result as normal/abnormal . KYLE (test code = KYLE) Biotin has been reported to cause a negative bias, interpret results relative to patient's use of biotin. Lab Interpretation Abnormal (test code = 29155-8) [facility]BAS[facility] MET[facility]OLIC PANEL (NA, K, CL, CO2, GLUCOSE, BUN, CREATININE, CA)2021-09-14 18:26:46 Test Item Value Reference Range Interpretation Comments NA (test code = 137 mmol/L 135-145 8245797169) K (test code = 4.0 mmol/L 3.5-5 3597078878) CL (test code = 92 mmol/L 98-108 L 0145747558) CO2 TOTAL (test code = 38 mmol/L 23-31 H 0913703595) AGAP (test code = 2-16 8519184486) BUN (test code = 10 mg/dL 7-23 1246993107) GLUCOSE (test code = 110 mg/dL 70-110 9689266215) CREATININE (test code = 0.47 mg/dL 0.5-1.04 L 0867535028) CALCIUM (test code = 9.4 mg/dL 8.6-10.6 2071564260) eGFR (test code = mL/min/1.73m2 9040698616) KYLE (test code = KYLE) Association of [...] tests). Lab Interpretation Abnormal (test code = 26648-0) [facility] WITH [id number] 18:23:24 Test Item Value Reference Range Interpretation Comments WBC (test code = See_Comment H [Automated 9990-2) message] The sy stem which generated this [...] RDW-SD (test code = 44.6 fL 39-49.9 11656-5) RDW-CV (test code = 12.9 % 12-15.5 788-0) PLT (test code = See_Comment [Automated 777-3) message] The sy stem which generated this result transmitted reference range : 166 - 358 10*3/ ?L. The reference r arnulfo was not used to interpret this result as normal/abnormal . MPV (test code = 9.6 fL 9.5-12.9 90806-5) NRBC/100 WBC (test See_Comment [Automat ed code = 4831235837) message] The system which generated this result transmitted reference range : 0.0 - 10.0 /100 WBCs. The refer ence range was not u sed to interpret th is result as normal/abnormal . NRBC x10^3 (test code See_Comment [Auto mated = 3415866550) message] The s ystem which generated this result transmitted reference range : 10*3/?L. The reference range was not used to interpret this result as normal/abnormal . GRAN MAT (NEUT) % 74.6 % (test code = 770-8) IMM GRAN % (test code 0.50 % = 7965881277) LYMPH % (test code = 14.8 % 736-9) MONO % (test code = 7.8 % 5905-5) EOS % (test code = 2.1 % 713-8) BASO % (test code = 0.2 % 706-2) GRAN MAT x10^3(ANC) 9.57 10*3/uL 1.88-7.09 H (test code = 4536775174) IMM GRAN x10^3 (test 0.06 10*3/uL 0-0.06 code = 3840852785) LYMPH x10^3 (test code 1.90 10*3/uL 1.32-3.29 = 731-0) MONO x10^3 (test code 1.00 10*3/uL 0.33-0.92 H = 742-7) EOS x10^3 (test code = 0.27 10*3/uL 0.03-0.39 711-2) BASO x10^3 (test code 0.01-0.07 = 704-7) Lab Interpretation Abnormal (test code = 97680-9) [facility] Metabolic Panel (NA, K, CL, CO2, GLUCOSE, BUN, CREATININE, CA)2021-09-03 10:31:24 Test Item Value Reference Range Interpretation Comments NA (test code = 140 mmol/L 135-145 1656313839) K (test code = 4.3 mmol/L 3.5-5 2780513890) CL (test code = 97 mmol/L 98-108 L 1205691844) CO2 TOTAL (test code = 38 mmol/L 23-31 H 2003023849) AGAP (test code = 2-16 1923557516) BUN (test code = 16 mg/dL 7-23 9075319619) GLUCOSE (test code = 102 mg/dL 70-110 0684944858) CREATININE (test code = 0.53 mg/dL 0.5-1.04 8083367303) CALCIUM (test code = 9.1 mg/dL 8.6-10.6 5154945655) eGFR (test code = mL/min/1.73m2 1911322196) KYLE (test code = KYLE) Association of [...] tests). Lab Interpretation Abnormal (test code = 92880-1) [facility]HEPATIC FUNCTION PANEL (88820) (ALB,T.PRO,BILI T,BU/BC,ALT,AST,ALK PHOS)2021-09-03 10:31:24 Test Item Value Reference Range Interpretation Comments TOTAL BILI (test code = 1229218487) 0.2 mg/dL 0.1-1.1 BILI UNCON (test code = 1809276593) 0.0 mg/dL 0.1-1.1 L BILI CONJ (test code = 3561397592) 0.0 mg/dL 0-0.3 T PROTEIN (test code = 2160429714) 7.0 g/dL 6.3-8.2 ALBUMIN (test code = 2455635038) 3.7 g/dL 3.5-5 ALK PHOS (test code = 7537197053) 74 U/L 34-122 ALTv (test code = 1742-6) 12 U/L 5-35 AST(SGOT) (test code = 6819368491) 23 U/L 13-40 Lab Interpretation (test code = Abnormal 49477-6) [facility]CBC with Ibwjqpxyqrjo8152-89-89 10:30:23 Test Item Value Reference Range Interpretation [...] RDW-SD (test code = 42.2 fL 39-49.9 58152-3) RDW-CV (test code = 12.4 % 12-15.5 788-0) PLT (test code = See_Comment [Automated 777-3) message] The sy stem which generated this result transmitted reference range : 166 - 358 10*3/ ?L. The reference r arnulfo was not used to interpret this result as normal/abnormal . MPV (test code = 10.4 fL 9.5-12.9 38359-5) NRBC/100 WBC (test See_Comment [Automat ed code = 8050107895) message] The system which generated this result transmitted reference range : 0.0 - 10.0 /100 WBCs. The refer ence range was not u sed to interpret th is result as normal/abnormal . NRBC x10^3 (test code See_Comment [Auto mated = 7092136308) message] The s ystem which generated this result transmitted reference range : 10*3/?L. The reference range was not used to interpret this result as normal/abnormal . GRAN MAT (NEUT) % 61.7 % (test code = 770-8) IMM GRAN % (test code 0.30 % = 8612406685) LYMPH % (test code = 23.9 % 736-9) MONO % (test code = 14.1 % 5905-5) EOS % (test code = 0.0 % 713-8) BASO % (test code = 0.0 % 706-2) GRAN MAT x10^3(ANC) 2.46 10*3/uL 1.88-7.09 (test code = 7928146108) IMM GRAN x10^3 (test 0-0.06 code = 4359989269) LYMPH x10^3 (test code 0.95 10*3/uL 1.32-3.29 L = 731-0) MONO x10^3 (test code 0.56 10*3/uL 0.33-0.92 = 742-7) EOS x10^3 (test code = 0.03-0.39 L 711-2) BASO x10^3 (test code 0.01-0.07 = 704-7) Lab Interpretation Abnormal (test code = 40051-4) [facility] HospitalAFB svvegcj0068-83-65 12:13:00 Test Item Value Reference Range Interpretation Comments AFB culture No growth after Specimen isolate (test 6 weeks of InformationSpe [facility] code = 543-9) incubation. Source: Biopsy Specimen Site: RUL BX KYLE (test code Received in = KYLE) [facility] nxrrtdb3041-21-76 12:15:00 Test Item Value Reference Range Interpretation Comments Fungus culture No growth after Specimen isolate (test 4 weeks of [facility] code = 580-1) incubation. Source: Biopsy Specimen Site: RUL BX KYLE (test code Received in = KYLE) [facility] pwqhtfmp0745-50-40 14:05:12 Test Item Value Reference Range Interpretation [...] meters (test code = 40 m 7620) [facility]2022-05-19 12:47:12 Test Item Value Reference Range Interpretation [...] (test code = See_Comment [Auto mated message] 5423) The system [employer] generated this result transmitted ref erence range: 14.19 - 27.19 ml/(min*mmHg). The reference range was not used to interpr et this result as normal/abnormal . DLCO Predicted (test code = 5421) DLCO LLN (test code = 5422) DLCO % Pre of 14.3 % Predicted (test code = 5424) DLCOc Pre (test code = See_Comment [Aut omated message] 5430) The system [employer] generated this result transmitted ref erence range: 14.19 - 27.19 ml/(min*mmHg). The reference range was not used to interpr et this result as normal/abnormal . DLCOc Predicted (test code = 5428) DLCOc LLN (test code = 5429) DLCOc % Pre of 15.8 % Predicted (test code = 5431) DL/VA Pre (test code = See_Comment [Aut omated message] 5437) The system [employer] generated this result transmitted ref erence range: 3.20 - 5 .84 ml/(min*mmHg*L) . The reference range was not used to interpr et this result as normal/abnormal . DL/VA Predicted (test code = 5435) DL/VA LLN (test code = 5436) DL/VA % Pre of 29.5 % Predicted (test code = 5438) KCOc SB Pre (test code See_Comment [Aut omated message] = 5535) The system [employer] generated this result transmitted ref erence range: [...] Hb Pre (test code = g(Hb)/dL 5540) [facility] kzowktv9609-31-11 00:20:16 Test Item Value Reference Range Interpretation Comments Case number (test code = [id number]) Surgical pathology See link below for report (test code = PDF Lab Report 0434) Result status (test code This is Final Report = [id number]) for [id number] [facility] lrvziok9423-89-50 22:35:41 Test Item Value Reference Range Interpretation Comments Case number (test code = [id number]) Cytology See link below for (non-gynecological) PDF Lab Report report (test code = 1178) Result status (test code This is Final Report = [id number]) for [id number] [facility]AF[facility] yyxma6666-52-44 16:49:00 Test Item Value Reference Range Interpretation Comments AFB stain No acid fast Specimen (test code = bacilli (AFB) InformationSpe henri 676-7) seen. Source: BiopsyS pecimen Site: RUL BX KYLE (test Received in code = KYLE) RPMI solution [facility] vcqnk0353-04-33 15:55:00 Test Item Value Reference Range Interpretation Comments Fungus smear No fungi Specimen (test code = observed. InformationSpec imen 1443) [facility] KYLE (test Received in code = KYLE) RPMI solution [facility] CenterYsiwlbrsLIPW-JhV-2 (COVID-19) RNA [Presence] in Respiratory specimen by CONNOR with probe scftnsiay8737-23-31 23:07:32 Test Item Value Reference Range Interpretation Comments SARS-CoV-2 (COVID-19) RNA Not detected [Presence] in Respiratory specimen by CONNOR with probe detection (test code = 98748-4) Whether patient is employed in a Unknown healthcare setting (test code = 94354-9) Whether the patient has symptoms Unknown related to condition of interest (test code = 19434-6) Whether the patient was Unknown hospitalized for condition of interest (test code = 91537-6) Whether the patient was admitted Unknown to intensive care unit (ICU) for condition of interest (test code = 17661-1) Whether patient resides in a Unknown congregate care setting (test code = 39915-2) status (test code = Unknown 59914-3) Date and time of symptom onset Unknown (test code = 24575-8) MARISELA YE qnaiyl1016-49-76 18:50:36 Test Item Value Reference Range Interpretation Comments Interpretation (test code = DQB1*02:CEXBV=DQB1 0605572) *02:01/02:955STMZ0 *03:BGCWT=DQB1*03: 01/03:276N Case number (test code = [id number]) HLA typing (test code = See link below for 7478) PDF Lab Report [facility] IdfofzkqO5M class 1 & 2 iftwckmx2152-89-43 16:54:32 Test Item Value Reference Range Interpretation Comments Case number (test code = [id number]) C1Q class 1 & 2 antibody See link below for (test code = 7687404) PDF Lab Report [facility] HospitalMiscellaneous referral seat8103-20-07 00:26:00 Test Item Value Reference Range Interpretation Comments Misc test name CMVM2 to ARUP (test code = 2194622 2566) Misc test see comment Cytomegalovirus result (test Antibody, IgM A RUP test code = 1730) code 8370187 CM V Antibody IgM <8 .0 AU/mL [...] (HCT/P ). ======== ======== Te st performed by:[address] [address] KYLE (test code Previous comment = KYLE) was ?With reflex if positive?Release to patient (Note: If manual release option is?selected, result will auto release 10 days from?finalization .)->Immediate?Spe cimen only collected Sunday - before 1200.?Specimen cannot be collected the day before a holiday or on a?holiday. Call referral lab at [phone] if you have?questions., verified by HIS at 06:55 on 04/12/2021. [facility] HospitalSpirom[facility], lung volumes, [facility]/MTAT4631-19-70 19:11:27 Test Item Value Reference Range Interpretation [...] ated message] code = 5528) The system [employer] generated this result transmitted ref erence range: [...] Predicted 136.2 % (test code = 5459) [facility] w/ pulse lbkorpaa4020-27-31 18:27:27 Test Item Value Reference Range Interpretation [...] Predicted 21.5 % (test code = 5646) [facility], with reflex to culture 2021-04-12 15:52:00 Test Item Value Reference Range Interpretation Comments Specimen site Clean catch (test code = 7690970) Color, UA (test Yellow code = 5778-6) Appearance, UA Clear (test code = 5767-9) Specific gravity, 1.001-1.035 UA (test code = 5811-5) pH, UA (test code 5.0-8.5 = 5803-2) Protein, UA (test Negative Negative code = 14189-9) Glucose, UA (test Negative Negative code = 27260-5) Ketones, UA (test Negative Negative code = 2514-8) Bilirubin, UA Negative Negative (test code = 5770-3) Blood, UA (test Negative Negative code = 5794-3) Nitrite, UA (test Negative Negative code = 5802-4) Urobilinogen, UA <2.0 See_Comment [Automated (test code = message] The sy stem 75279-7) which generated this result transmitted reference range : <=2.0. The reference range was not used to interpret this result as normal/abnormal . Leukocyte Negative Negative esterase, UA (test code = 5799-2) Epithelial cells, <1 See_Comment [Automate d UA (test code = message] The system 5787-7) which generated this result transmitted reference range [...] code None seen See_Comment [Automat ed = 46539-1) message] The sy stem which generated this result transmitted reference range : 0 - 5 /HPF. The reference range was not used to interpret this result as normal/abnormal . Bacteria, UA (test None seen None seen code = 71868-0) Yeast, UA (test None seen code = 79521-9) Yeast with None seen pseudohyphae, UA (test code = 00956-4) KYLE (test code = Previous comment KYLE) was ?With reflex if positive?Release to patient (Note: If manual release option is?selected, result will auto release 10 days from?finalization .)->Immediate?Spe cimen only collected Sunday - before 1200.?Specimen cannot be collected the day before a holiday or on a?holiday. Call referral lab at [phone] if you have?questions., verified by HIS at 06:55 on 04/12/2021. [id number] 15:24:00 Test Item Value Reference Range Interpretation Comments Urine culture SEE COMMENT Bacteriuria sc reen (test code = negative. 5456437) KYLE (test code = Previous comment KYLE) was ?With reflex if positive?Release to patient (Note: If manual release option is?selected, result will auto release 10 days from?finalization. )->Immediate?Speci men only collected Sunday - before 1200.?Specimen cannot be collected the day before a holiday or on a?holiday. Call referral lab at [phone] if you have?questions., verified by HIS at 06:55 on 04/12/2021. [facility] [Presence] in Respiratory specimen by CONNOR with probe [id number] 11:26:03 Test Item Value Reference Range Interpretation Comments SARS-CoV-2 (COVID-19) RNA Not detected [Presence] in Respiratory specimen by CONNOR with probe detection (test code = 59560-5) Whether patient is employed in a Unknown healthcare setting (test code = 11686-0) Whether the patient has symptoms Unknown related to condition of interest (test code = 49809-1) Whether the patient was Unknown hospitalized for condition of interest (test code = 99080-3) Whether the patient was admitted Unknown to intensive care unit (ICU) for condition of interest (test code = 00334-6) Whether patient resides in a Unknown congregate care setting (test code = 11631-4) status (test code = Unknown 87593-2) Date and time of symptom onset Unknown (test code = 02881-4) [facility] (NA, K, CL, CO2, GLUCOSE, BUN, CREATININE, CA)2021-03-15 11:04:02 Test Item Value Reference Range Interpretation Comments NA (test code = 138 mmol/L 135-145 6793509122) K (test code = 3.6 mmol/L 3.5-5.0 1476116795) CL (test code = 99 mmol/L 98-108 7306896467) CO2 TOTAL (test code = 39 mmol/L 23-31 H 1171904674) AGAP (test code = <1 2-16 L 4898979149) BUN (test code = 17 mg/dL 7-23 1157920152) GLUCOSE (test code = 101 mg/dL 70-110 0752234867) CREATININE (test code = 0.45 mg/dL 0.50-1.04 L 1586103375) CALCIUM (test code = 8.6 mg/dL 8.6-10.6 5742213423) eGFR (test code = mL/min/1.73m2 6185357741) KYLE (test code = KYLE) Association of [...] tests). Lab Interpretation Abnormal (test code = 92231-0) [facility] 10:58:44 Test Item Value Reference Range Interpretation Comments MAGNESIUM (test code = 4198663964) 2.1 mg/dL 1.7-2.4 Lab Interpretation (test code = Normal 58612-6) [facility] WITH [id number] 10:08:55 Test Item Value Reference Range Interpretation [...] RDW-SD (test code = 43.6 fL 39.0-49.9 70222-4) RDW-CV (test code = 13.6 % 12.0-15.5 788-0) PLT (test code = See_Comment [Automated 777-3) message] The sy stem which generated this result transmitted reference range : 166 - 358 10*3/ ?L. The reference r arnulfo was not used to interpret this result as normal/abnormal . MPV (test code = 9.5 fL 9.5-12.9 99382-6) NRBC/100 WBC (test See_Comment [Automat ed code = 3169013216) message] The system which generated this result transmitted reference range : 0.0 - 10.0 /100 WBCs. The refer ence range was not u sed to interpret th is result as normal/abnormal . NRBC x10^3 (test code <0.01 See_Comment [Auto mated = 7820401481) message] The s ystem which generated this result transmitted reference range : 10*3/?L. The reference range was not used to interpret this result as normal/abnormal . GRAN MAT (NEUT) % 62.7 % (test code = 770-8) IMM GRAN % (test code 0.50 % = 4118343815) LYMPH % (test code = 27.9 % 736-9) MONO % (test code = 8.4 % 5905-5) EOS % (test code = 0.3 % 713-8) BASO % (test code = 0.2 % 706-2) GRAN MAT x10^3(ANC) 3.67 10*3/uL 1.88-7.09 (test code = 4700746911) IMM GRAN x10^3 (test 0.03 10*3/uL 0.00-0.06 code = 6116167414) LYMPH x10^3 (test code 1.63 10*3/uL 1.32-3.29 = 731-0) MONO x10^3 (test code 0.49 10*3/uL 0.33-0.92 = 742-7) EOS x10^3 (test code = <0.03 0.03-0.39 L 711-2) BASO x10^3 (test code <0.03 0.01-0.07 = 704-7) Lab Interpretation Abnormal (test code = 20920-8) [facility] 11:02:27 Test Item Value Reference Range Interpretation Comments MAGNESIUM (test code = 1081138099) 1.6 mg/dL 1.7-2.4 L Lab Interpretation (test code = Abnormal 28586-8) [facility] (NA, K, CL, CO2, GLUCOSE, BUN, CREATININE, CA)2021-03-14 11:02:22 Test Item Value Reference Range Interpretation Comments NA (test code = 136 mmol/L 135-145 2283361948) K (test code = 3.3 mmol/L 3.5-5.0 L 3798290096) CL (test code = 98 mmol/L 98-108 3300615053) CO2 TOTAL (test code = 37 mmol/L 23-31 H 1744134468) AGAP (test code = 2-16 L 2048899258) BUN (test code = 18 mg/dL 7-23 3918162738) GLUCOSE (test code = 100 mg/dL 70-110 4074986896) CREATININE (test code = 0.51 mg/dL 0.50-1.04 2715850511) CALCIUM (test code = 8.4 mg/dL 8.6-10.6 L 1130888253) eGFR (test code = mL/min/1.73m2 9441661320) KYLE (test code = KYLE) Association of [...] tests). Lab Interpretation Abnormal (test code = 86925-2) [facility]2022-[facility] 11:02:02 Test Item Value Reference Range Interpretation Comments PHOSPHORUS (test code = 3865863498) 2.9 mg/dL 2.5-5.0 Lab Interpretation (test code = Normal 49642-3) [facility] (NA, K, CL, CO2, GLUCOSE, BUN, CREATININE, CA)2021-03-13 12:58:59 Test Item Value Reference Range Interpretation Comments NA (test code = 136 mmol/L 135-145 0104657855) K (test code = 3.3 mmol/L 3.5-5.0 L 8286308377) CL (test code = 99 mmol/L 98-108 2797682747) CO2 TOTAL (test code = 37 mmol/L 23-31 H 7515033589) AGAP (test code = <1 2-16 L 6112384858) BUN (test code = 23 mg/dL 7-23 3109202118) GLUCOSE (test code = 84 mg/dL 70-110 9714291261) CREATININE (test code = 0.53 mg/dL 0.50-1.04 7636246068) CALCIUM (test code = 8.8 mg/dL 8.6-10.6 7863279355) eGFR (test code = mL/min/1.73m2 7826706599) KYLE (test code = KYLE) Association of [...] tests). Lab Interpretation Abnormal (test code = 90115-7) [facility] WITH [id number] 12:42:20 Test Item Value Reference Range Interpretation Comments WBC (test code = See_Comment [Automated 4590-2) message] The sy stem which generated this [...] RDW-SD (test code = 45.0 fL 39.0-49.9 99899-4) RDW-CV (test code = 13.8 % 12.0-15.5 788-0) PLT (test code = See_Comment [Automated 777-3) message] The sy stem which generated this result transmitted reference range : 166 - 358 10*3/ ?L. The reference r arnulfo was not used to interpret this result as normal/abnormal . MPV (test code = 9.9 fL 9.5-12.9 81812-5) NRBC/100 WBC (test See_Comment [Automat ed code = 4003959735) message] The system which generated this result transmitted reference range : 0.0 - 10.0 /100 WBCs. The refer ence range was not u sed to interpret th is result as normal/abnormal . NRBC x10^3 (test code <0.01 See_Comment [Auto mated = 4828410612) message] The s ystem which generated this result transmitted reference range : 10*3/?L. The reference range was not used to interpret this result as normal/abnormal . GRAN MAT (NEUT) % 67.4 % (test code = 770-8) IMM GRAN % (test code 0.40 % = 6067427970) LYMPH % (test code = 23.3 % 736-9) MONO % (test code = 8.7 % 5905-5) EOS % (test code = 0.1 % 713-8) BASO % (test code = 0.1 % 706-2) GRAN MAT x10^3(ANC) 4.73 10*3/uL 1.88-7.09 (test code = 4859408470) IMM GRAN x10^3 (test 0.03 10*3/uL 0.00-0.06 code = 1834859004) LYMPH x10^3 (test code 1.64 10*3/uL 1.32-3.29 = 731-0) MONO x10^3 (test code 0.61 10*3/uL 0.33-0.92 = 742-7) EOS x10^3 (test code = <0.03 0.03-0.39 L 711-2) BASO x10^3 (test code <0.03 0.01-0.07 = 704-7) Lab Interpretation Abnormal (test code = 23236-0) [facility] [id number] 11:43:29 Test Item Value Reference Range Interpretation Comments MAGNESIUM (test code = 3388342862) 1.7 mg/dL 1.7-2.4 Lab Interpretation (test code = Normal 90037-6) [facility] Metabolic Panel (NA, K, CL, CO2, GLUCOSE, BUN, CREATININE, CA)2021-03-11 11:43:09 Test Item Value Reference Range Interpretation Comments NA (test code = 136 mmol/L 135-145 3853266196) K (test code = 4.5 mmol/L 3.5-5.0 6138576368) CL (test code = 95 mmol/L 98-108 L 2351129442) CO2 TOTAL (test code = 40 mmol/L 23-31 H 8844679263) AGAP (test code = 2-16 L 0234447016) BUN (test code = 20 mg/dL 7-23 4817223531) GLUCOSE (test code = 150 mg/dL 70-110 H 5912419726) CREATININE (test code = 0.40 mg/dL 0.50-1.04 L 9106146843) CALCIUM (test code = 8.8 mg/dL 8.6-10.6 2520372307) eGFR (test code = mL/min/1.73m2 5913851047) KYLE (test code = KYLE) Association of [...] tests). Lab Interpretation Abnormal (test code = 25934-7) [facility] with Yosmcqmrwpsy8070-16-55 11:27:44 Test Item Value Reference Range Interpretation [...] RDW-SD (test code = 44.7 fL 39.0-49.9 02385-7) RDW-CV (test code = 13.5 % 12.0-15.5 788-0) PLT (test code = See_Comment [Automated 777-3) message] The sy stem which generated this result transmitted reference range : 166 - 358 10*3/ ?L. The reference r arnulfo was not used to interpret this result as normal/abnormal . MPV (test code = 10.1 fL 9.5-12.9 10685-0) NRBC/100 WBC (test See_Comment [Automat ed code = 3173453448) message] The system which generated this result transmitted reference range : 0.0 - 10.0 /100 WBCs. The refer ence range was not u sed to interpret th is result as normal/abnormal . NRBC x10^3 (test code <0.01 See_Comment [Auto mated = 8098689477) message] The s ystem which generated this result transmitted reference range : 10*3/?L. The reference range was not used to interpret this result as normal/abnormal . GRAN MAT (NEUT) % 89.2 % (test code = 770-8) IMM GRAN % (test code 0.30 % = 2262118429) LYMPH % (test code = 9.4 % 736-9) MONO % (test code = 1.1 % 5905-5) EOS % (test code = 0.0 % 713-8) BASO % (test code = 0.0 % 706-2) GRAN MAT x10^3(ANC) 5.63 10*3/uL 1.88-7.09 (test code = 7887808517) IMM GRAN x10^3 (test <0.03 0.00-0.06 code = 1832080966) LYMPH x10^3 (test code 0.59 10*3/uL 1.32-3.29 L = 731-0) MONO x10^3 (test code 0.07 10*3/uL 0.33-0.92 L = 742-7) EOS x10^3 (test code = <0.03 0.03-0.39 L 711-2) BASO x10^3 (test code <0.03 0.01-0.07 = 704-7) Lab Interpretation Abnormal (test code = 19341-5) [facility] [id number] 00:54:28 Test Item Value Reference Range Interpretation Comments PHOSPHORUS (test code = 3.7 mg/dL 2.5-5.0 Slig ht hemolysis 2203817797) Lab Interpretation (test Normal code = 10883-4) [facility] [id number] 16:14:02 Test Item Value Reference Interpretation Comments Range TROPONIN I (test 0.005 ng/mL See_Comment [Automated code = 0346639320) message] The system which generated this result [...] biotin. Lab Interpretation Normal (test code = 83903-9) [facility]. METABOLIC PANEL (11742)2021-03-10 15:59:39 Test Item Value Reference Range Interpretation Comments NA (test code = 136 mmol/L 135-145 4550287824) K (test code = 4.3 mmol/L 3.5-5.0 5641302000) CL (test code = 93 mmol/L 98-108 L 5603558662) CO2 TOTAL (test code = 39 mmol/L 23-31 H 9567113930) AGAP (test code = 2-16 0102220238) BUN (test code = 12 mg/dL 7-23 4922414586) GLUCOSE (test code = 121 mg/dL 70-110 H 0122953141) CREATININE (test code = 0.40 mg/dL 0.50-1.04 L 0749633150) TOTAL BILI (test code = 0.7 mg/dL 0.1-1.9 0731022169) CALCIUM (test code = 8.9 mg/dL 8.6-10.6 9708204651) T PROTEIN (test code = 7.3 g/dL 6.3-8.2 3355288564) ALBUMIN (test code = 4.1 g/dL 3.5-5.0 4277036975) ALK PHOS (test code = 92 U/L 34-122 6697172713) ALTv (test code = 9 U/L 5-35 1742-6) AST(SGOT) (test code = 23 U/L 13-40 2826350656) eGFR (test code = mL/min/1.73m2 3703975749) KYLE (test code = KYLE) Association of [...] tests). Lab Interpretation Abnormal (test code = 11319-0) [facility]LIP[facility], [id number] 15:58:58 Test Item Value Reference Range Interpretation Comments LIPASE (test code = 7373685208) 24 U/L 0-220 Lab Interpretation (test code = Normal 21242-0) [facility]PTT2022-[facility] 15:44:56 Test Item Value Reference Range Interpretation Comments APTT Patient (test See_Comment [Automat ed code = 3173-2) message] The system which generated this result transmitted reference range : 23 - 38 Seconds . The reference range was not used to interpr et this result as normal/abnormal . KYLE (test code = KYLE) The [facility] patient population mean normal value for aPTT is 30 seconds. Lab Interpretation Normal (test code = 91772-9) [facility] HospitalPROTHROMBIN TIME / [id number] 15:42:34 Test Item Value Reference Range Interpretation [...] tions. Lab Interpretation (test Normal code = 70361-1) [facility] WITH [id number] 15:36:36 Test Item Value Reference Range Interpretation Comments WBC (test code = See_Comment H [Automated 2790-2) message] The system which generated this result [...] RDW-SD (test code = 45.7 fL 39.0-49.9 23938-6) RDW-CV (test code = 13.7 % 12.0-15.5 788-0) PLT (test code = See_Comment [Automated 777-3) message] The system which generated this result transmit blayne reference range : 166 - 358 10*3/ ?L. The reference range was not u sed to interpret th is result as normal/abnormal . MPV (test code = 9.7 fL 9.5-12.9 54735-3) NRBC/100 WBC (test See_Comment [Automat ed code = 2852540087) message] The system which generated this result transmit blayne reference range : 0.0 - 10.0 /100 WBCs. The reference range was not used to interpret this result as normal/abnormal . NRBC x10^3 (test code <0.01 See_Comment [Auto mated = 7133125956) message] The system which generated this result transmit blayne reference range : 10*3/?L. The reference range was not used to interpret this result as normal/abnormal . GRAN MAT (NEUT) % 83.9 % (test code = 770-8) IMM GRAN % (test code 0.40 % = 8495298983) LYMPH % (test code = 9.2 % 736-9) MONO % (test code = 4.9 % 5905-5) EOS % (test code = 1.4 % 713-8) BASO % (test code = 0.2 % 706-2) GRAN MAT x10^3(ANC) 11.59 10*3/uL 1.88-7.09 H (test code = 9042370042) IMM GRAN x10^3 (test 0.06 10*3/uL 0.00-0.06 code = 7598906440) LYMPH x10^3 (test code 1.28 10*3/uL 1.32-3.29 L = 731-0) MONO x10^3 (test code 0.68 10*3/uL 0.33-0.92 = 742-7) EOS x10^3 (test code = 0.20 10*3/uL 0.03-0.39 711-2) BASO x10^3 (test code 0.03 10*3/uL 0.01-0.07 = 704-7) Lab Interpretation Abnormal (test code = 71667-0) [facility] ([facility]OVID-19) RNA [Presence] in Respiratory specimen by CONNOR with probe [id number] 19:20:03 Test Item Value Reference Range Interpretation Comments SARS-CoV-2 (COVID-19) RNA Not detected Not-Detected [Presence] in Respiratory specimen by CONNOR with probe detection (test code = 99222-5) Whether patient is employed in a healthcare setting (test code = 43819-9) Whether the patient has symptoms related to condition of interest (test code = 41683-5) Patient was hospitalized because of this condition (test code = 07861-5) Whether the patient was admitted to intensive care unit (ICU) for condition of interest (test code = 36253-6) Whether patient resides in a congregate care setting (test code = 82130-0) [facility]
[2022-11-06 19:09] LABS: Troponin High Sensitivity 23.1 pg/mL (<58.9)
[2022-11-06 19:24] LABS: Protime INR 1.19
[2022-11-06] MEDS ORDERED: METHYLPREDNISOLONE 125 MG INJ ONE (19:34)
[2022-11-06] MEDS ORDERED: LEVALBUTEROL 1.25 MG/3 ML NEB ONE (19:34)
--- NOTE | 2022-11-06 19:59 | RAD REPORT ---
EXAM DESCRIPTION: RADChest Single View11/06/2022 7:12 pm CLINICAL HISTORY: DYSPNEA COMPARISON: Chest Single View dated 07/10/2022; Chest Single View dated 11/23/2021; Chest Single View dated 08/02/2020; Chest Single View dated 06/08/2020; Thorax Wo Con dated 07/10/2022 TECHNIQUE: Portable AP view of the chest. FINDINGS: No known right apical cavitary lesion with adjacent soft tissue thickening/scarring, stabl e. Patchy opacification in the left apex, stable to mildly progressed since the prior exam. Backgroun d hyperlucency/hyperinflation No pneumothorax or effusion. The cardiomediastinal contours are unrema rkable. IMPRESSION: Patchy opacification in the left apex, stable to mildly progressed since the prior exam. Focal pneumonia versus other infiltrative process should be considered.
--- NOTE | 2022-11-06 20:10 | EDPHYS ---
Physician Documentation [facility] Name: Kallie Correia Age: 62 yrs Sex: Female : 1960 Arrival Date: 11/06/2022 Time: 18:30 Bed 2 Private MD: ED Physician Emir England HPI: 11/06 18:57 This 62 yrs old Female presents to ER via EMS with complaints of palpitations, sob. rn 18:57 The patient presents with a history of irregular heart beat, heart racing. Onset: The rn symptoms/episode began/occurred this morning. Modifying factors: The symptoms are aggravated by nothing. The symptoms are alleviated by nothing. Severity of symptoms: At their worst the symptoms were moderate in the emergency department the symptoms are unchanged. The patient has experienced similar episodes in the past. EMS reports called out for high heart rate and shortness of breath, began this morning. Patient with both COPD and atrial fibrillation, supposed to take metoprolol but noncompliant. Denies any chest pain. No fever.. Historical: - Allergies: 18:53 Albuterol; ko1 18:53 Morphine; ko1 - PMHx: 18:53 COPD; Non-tuberculin Mycoplasma; Emphysema; ko1 - Immunization history:: Adult Immunizations up to date. - Social history:: Smoking status: Patient/guardian denies using tobacco. - Family history:: not pertinent. - Hospitalizations: : No recent hospitalization is reported. ROS: 18:57 Constitutional: Negative for fever, chills, and weight loss, Eyes: Negative for injury, rn pain, redness, and discharge, Neck: Negative for injury, pain, and swelling, Cardiovascular: Positive for palpitations Respiratory: Positive for shortness of breath Abdomen/GI: Negative for abdominal pain, nausea, vomiting, diarrhea, and constipation, MS/Extremity: Negative for injury and deformity, Skin: Negative for injury, rash, and discoloration, Neuro: Negative for headache, weakness, numbness, tingling, and seizure, Exam: 18:57 Constitutional: Thin female, moderate respiratory distress, tripod position Head/Face: rn Normocephalic, atraumatic. ENT: No stridor Cardiovascular: Tachycardic, irregular. Respiratory: Moderate tachypnea, diminished breath sounds bilaterally Abdomen/GI: Soft, non-tender MS/ Extremity: Pulses equal, no cyanosis. Neurovascular intact. Full, normal range of motion. Equal circumference. Neuro: Awake and alert, GCS 15 Vital Signs: 18:30 BP 129 / 81; Pulse 156; Resp 34; Temp 98; Pulse Ox 100% on 15 lpm Non-rebreather mask; ko1 18:40 BP 117 / 55; Pulse 148; Resp 30; Pulse Ox 98% on 4 lpm NC; ko1 18:45 BP 92 / 56; Pulse 112; Resp 28; Pulse Ox 98% on 4 lpm NC; ko1 20:00 BP 103 / 57; Pulse 92; Resp 21; Pulse Ox 100% on 4 lpm NC; jb4 21:00 BP 94 / 53; Pulse 91; Resp 18; Pulse Ox 100% on 4 lpm NC; jb4 22:00 BP 108 / 87; Pulse 90; Resp 19; Pulse Ox 100% on 4 lpm NC; jb4 MDM: 18:36 Patient medically screened. rn 19:07 Differential diagnosis: arrythmia, dehydration, stress disorder. rn 19:07 ED course: After 1 dose of IV metoprolol patient is converted to sinus rhythm, improved rn breathing but still short of breath and tachypnea. Will treat COPD and continue to monitor. 20:07 Data reviewed: vital signs, nurses notes, lab test result(s), EKG, radiologic studies, rn plain films, and as a result, I will admit patient. Consideration of Admission/Observation Patient was admitted/placed on observation. Escalation of care including admission/observation considered. Management of patient was discussed with the following: Hospitalist: . I considered the following discharge prescriptions or medication management in the emergency department Medications were administered in the Emergency Department. See MAR. Independent interpretation of the following test(s) in the Emergency Department X-Ray: My interpretation is Chest x-ray images show possible infiltrate per my interpretation. Counseling: I had a detailed discussion with the patient and/or guardian regarding the historical points, exam findings, and any diagnostic results supporting the discharge/admit diagnosis, lab results, radiology results, the need for further work-up and treatment in the hospital. Response to treatment: the patient's symptoms have markedly improved after treatment, and as a result, I will admit patient. 20:07 ED course: I personally spent 35 minutes engaged in work directly related to the rn individual patient's care. This does not include any time spent performing procedures. The patient has been deemed critically ill because of atrial fibrillation and rapid ventricular rate in the 150s, hypotension, respiratory distress. 11/06 18:36 Order name: Basic Metabolic Panel; Complete Time: 19:14 rn 11/06 18:36 Order name: CBC with Diff rn 11/06 18:36 Order name: NT PRO-BNP; Complete Time: 19:14 rn 11/06 18:36 Order name: PT-INR; Complete Time: 19:29 rn 11/06 18:36 Order name: Troponin HS; Complete Time: 19:14 rn 11/06 19:14 Order name: Blood Culture Adult (2) rn 11/06 19:14 Order name: Lactate w/ 2H reflex if indic. rn 11/06 20:06 Order name: SARS-COV-2 RT PCR rn 11/06 20:06 Order name: Flu rn 11/06 20:53 Order name: CBC Smear Scan EDMS 11/06 18:36 Order name: XRAY Chest (1 view); Complete Time: 20:05 rn 11/06 18:36 Order name: EKG; Complete Time: 18:37 rn 11/06 18:36 Order name: Cardiac monitoring; Complete Time: 18:38 rn 11/06 18:36 Order name: EKG - Nurse/Tech; Complete Time: 18:48 rn 11/06 18:36 Order name: IV Saline Lock; Complete Time: 18:48 rn 11/06 18:36 Order name: Labs collected and sent; Complete Time: 18:48 rn 11/06 18:36 Order name: O2 Per Protocol; Complete Time: 18:38 rn 11/06 18:36 Order name: O2 Sat Monitoring; Complete Time: 18:38 rn 11/06 18:55 Order name: Misc. Order: RECOLLECT LIGHT BLUE; Complete Time: 19:19 rv1 Administered Medications: 18:48 Drug: NS 0.9% IV 250 ml IV at bolus once Route: IV; Rate: bolus; Site: right ko1 antecubital; 18:57 Drug: Metoprolol IVP 5 mg IVP every 5 minutes; Hold for SBP < 100 or HR < 60. x3 Route: ko1 IVP; Site: right antecubital; 18:57 Drug: Magnesium Sulfate IVPB 1 grams IVPB once over 1 hrs Route: IVPB; Infused Over: 1 ko1 hrs; Site: right antecubital; 18:57 CANCELLED (Duplicate Order): [id number] mg PO once rn 19:34 Drug: MethylPrednisoLONE IVP 125 mg IVP once Route: IVP; Site: right antecubital; jb4 19:34 Drug: Levalbuterol Inhalation 1.25 mg Inhalation once Route: Inhalation; jb4 20:44 Drug: Rocephin IV 1 grams IV at calculated rate once; Given slow IV push per pharmacy ha1 instructions Route: IV; Rate: calculated rate; Site: right antecubital; 20:45 Drug: NS 0.9% IV 1000 ml IV at 1000 ml once Route: IV; Rate: 1000 ml; Site: right ha1 antecubital; 20:52 Drug: Zithromax IVPB 500 mg IVPB once over 1 hrs; mix in 250 mL NS Route: IVPB; Infused ha1 Over: 1 hrs; Site: right antecubital; Disposition Summary: 11/06/22 20:09 Hospitalization Ordered Notes: Hospitalization Status: Inpatient Admission rn Location: Telemetry/[facility] (Inpatient) rn Condition: Stable rn Problem: new rn Symptoms: have improved rn Bed/Room Type: Standard rn Provider: Richard Crystal(11/06/22 20:13) rn Room Assignment: [facility](11/06/22 22:06) Diagnosis - COPD/ Chronic obstructive pulmonary disease with (acute) exacerbation rn - COPD/ Chronic obstructive pulmonary disease with acute lower respiratory infection rn - Pneumonia, unspecified organism rn - Paroxysmal atrial fibrillation - with RVR rn Forms: - Medication Reconciliation Form rn - SBAR form rn - Leadership Thank You Letter consultant intern time excluding procedures: 20:07 Critical care time: Bedside Care: 35 minutes. Total time: 35 minutes rn Signatures: Dispatcher [employer] EDEmir Youngblood MD MD rn Garcia, Cindy RN Adrian Regalado RN RN jb4 Camille Pulliam RN RN ha1 Brianna Martinez RN RN ko1 Justa Leiva rv1 Corrections: (The following items were deleted from the chart) 18:57 18:51 Metoprolol PO 12.5 mg PO once ordered. rn rn 18:59 18:57 Constitutional: Thin female, moderate respiratory distress, tripod position rn Head/Face: Normocephalic, atraumatic. ENT: No stridor Cardiovascular: Tachycardic, irregular. Respiratory: Moderate tachypnea, diminished breath sounds bilaterally Abdomen/GI: Soft, non-tender MS/ Extremity: Pulses equal, no cyanosis. Neurovascular intact. Full, normal range of motion. Equal circumference. Neuro: Awake and alert, GCS 15, oriented to person, place, time, and situation. Cranial nerves II-XII grossly intact. Motor strength 5/5 in all extremities. Sensory grossly intact. Cerebellar exam normal. Normal gait. rn 20:13 20:09 Danny Chery rn rn 22:06 20:09 maddy seymour
--- NOTE | 2022-11-06 20:10 | ER ---
Nurse's Notes [facility] Name: Kallie Correia Age: 62 yrs Sex: Female : 1960 Arrival Date: 11/06/2022 Time: 18:30 Bed 2 Private MD: Diagnosis: COPD/ Chronic obstructive pulmonary disease with (acute) exacerbation;COPD/ Chronic obstructive pulmonary disease with acute lower respiratory infection;Pneumonia, unspecified organism;Paroxysmal atrial fibrillation-with RVR Presentation: 11/06 18:30 Chief complaint: EMS states: patient called for difficulty breathing and racing heart, ko1 has a hx of afib and is currently afib rvr. Coronavirus screen: At this time, the client does not indicate any symptoms associated with coronavirus-19. Ebola Screen: No symptoms or risks identified at this time. Initial Sepsis Screen: Does the patient meet any 2 criteria? No. Patient's initial sepsis screen is negative. Does the patient have a suspected source of infection? No. Patient's initial sepsis screen is negative. Risk Assessment: Do you want to hurt yourself or someone else? Patient reports no desire to harm self or others. Onset of symptoms was November 06, 2022. 18:30 Method Of Arrival: EMS: [facility] ko1 18:30 Acuity: BENJI 2 ko1 18:30 Care prior to arrival: IV initiated. 22 GA, in the right antecubital area, Oxygen ko1 administered. via a non-rebreather mask. Triage Assessment: 18:53 General: Appears distressed, Behavior is cooperative, anxious. Pain: Complains of pain ko1 in chest. Historical: - Allergies: 18:53 Albuterol; ko1 18:53 Morphine; ko1 - PMHx: 18:53 COPD; Non-tuberculin Mycoplasma; Emphysema; ko1 - Immunization history:: Adult Immunizations up to date. - Social history:: Smoking status: Patient/guardian denies using tobacco. - Family history:: not pertinent. - Hospitalizations: : No recent hospitalization is reported. Screenin:00 Abuse screen: Denies threats or abuse. Denies injuries from another. Nutritional ha1 screening: No deficits noted. Tuberculosis screening: No symptoms or risk factors identified. Assessment: 18:40 Neuro: No deficits noted. Cardiovascular: Rhythm is atrial fibrillation with rapid ko1 ventricular response. Respiratory: Reports shortness of breath at rest on exertion labored breathing Respiratory effort is labored, Respiratory pattern is tachypnea. GI: No deficits noted. : No deficits noted. EENT: No deficits noted. Derm: No deficits noted. Musculoskeletal: No deficits noted. 19:20 Reassessment: Pt remains A\T\O x4. Respirations are even, labored, and tachypneic. No s/s jb4 of pain or distress noted. 21:00 Reassessment: Patient appears in no apparent distress at this time. Patient and/or jb4 family updated on plan of care and expected duration. Pain level reassessed. Patient is alert, oriented x 3, equal unlabored respirations, skin warm/dry/pink. 22:00 Reassessment: Patient appears in no apparent distress at this time. Patient and/or jb4 family updated on plan of care and expected duration. Pain level reassessed. Patient is alert, oriented x 3, equal unlabored respirations, skin warm/dry/pink. 22:20 Reassessment: attempted to call report. instructed to wait for call back. jb4 Vital Signs: 18:30 BP 129 / 81; Pulse 156; Resp 34; Temp 98; Pulse Ox 100% on 15 lpm Non-rebreather mask; ko1 18:40 BP 117 / 55; Pulse 148; Resp 30; Pulse Ox 98% on 4 lpm NC; ko1 18:45 BP 92 / 56; Pulse 112; Resp 28; Pulse Ox 98% on 4 lpm NC; ko1 20:00 BP 103 / 57; Pulse 92; Resp 21; Pulse Ox 100% on 4 lpm NC; jb4 21:00 BP 94 / 53; Pulse 91; Resp 18; Pulse Ox 100% on 4 lpm NC; jb4 22:00 BP 108 / 87; Pulse 90; Resp 19; Pulse Ox 100% on 4 lpm NC; jb4 Vitals: 18:45 Cardiac Rhythm Assessment Regular Sinus rhythm. ko1 ED Course: 18:36 Patient arrived in ED. rn 18:36 Emir England MD is Attending Physician. rn 18:48 January Carrillo is Primary Nurse. cp4 18:48 Basic Metabolic Panel Sent. cp4 18:48 CBC with Diff Sent. cp4 18:48 NT PRO-BNP Sent. cp4 18:48 PT-INR Sent. cp4 18:48 Troponin HS Sent. cp4 18:53 Triage completed. ko1 18:53 Arm band placed on right wrist. Patient placed in an exam room, on a stretcher, on ko1 oxygen, on hospital monitor, on pulse oximetry, Patient notified of wait time. 19:00 Patient has correct armband on for positive identification. Placed in gown. Bed in low ha1 position. Call light in reach. Side rails up X 1. 19:14 XRAY Chest (1 view) In Process Unspecified. EDMS 20:09 Danny Chery MD is Hospitalizing Provider. rn 20:13 Richard Crystal MD is Hospitalizing Provider. rn 23:00 No provider procedures requiring assistance completed. Patient admitted, IV remains in ha1 place. Administered Medications: 18:48 Drug: NS 0.9% IV 250 ml IV at bolus once Route: IV; Rate: bolus; Site: right ko1 antecubital; 18:57 Drug: Metoprolol IVP 5 mg IVP every 5 minutes; Hold for SBP < 100 or HR < 60. x3 Route: ko1 IVP; Site: right antecubital; 18:57 Drug: Magnesium Sulfate IVPB 1 grams IVPB once over 1 hrs Route: IVPB; Infused Over: 1 ko1 hrs; Site: right antecubital; 18:57 CANCELLED (Duplicate Order): [id number] mg PO once rn 19:34 Drug: MethylPrednisoLONE IVP 125 mg IVP once Route: IVP; Site: right antecubital; jb4 19:34 Drug: Levalbuterol Inhalation 1.25 mg Inhalation once Route: Inhalation; jb4 20:44 Drug: Rocephin IV 1 grams IV at calculated rate once; Given slow IV push per pharmacy ha1 instructions Route: IV; Rate: calculated rate; Site: right antecubital; 20:45 Drug: NS 0.9% IV 1000 ml IV at 1000 ml once Route: IV; Rate: 1000 ml; Site: right ha1 antecubital; 20:52 Drug: Zithromax IVPB 500 mg IVPB once over 1 hrs; mix in 250 mL NS Route: IVPB; Infused ha1 Over: 1 hrs; Site: right antecubital; Medication: 23:00 VIS not applicable for this client. ha1 Outcome: 20:09 Decision to Hospitalize by Provider. rn 23:00 Admitted to Med/surg accompanied by tech, via stretcher, with chart, ha 23:00 Condition: stable 23:00 Discharge instructions given to patient, family, Instructed on the need for admit, Demonstrated understanding of instructions, 23:01 Patient left the ED. 1 Signatures: Dispatcher [employer] EDMS Emir England MD MD rn Bryson, James, RN RN jb4 Camille Pulliam RN RN 1 Brianna Martinez RN RN January Moreno 4
--- NOTE | 2022-11-06 20:13 | P.HP ---
Certification for Inpatient Patient admitted to: Inpatient With expected LOS: <2 Midnights Patient will require the following post-hospital care: None Practitioner: I am a practitioner with admitting privileges, knowledge of patient current condition, hospital course, and medical plan of care. Services: Services provided to patient in accordance with Admission requirements found in Title 42 Section 412.3 of the Code of Federal Regulations Patient History Date of Service: 11/07/22 Reason for admission: shortness of breath History of Present Illness: 62-year-old female with a past medical history of COPD, nontuberculosis mycoplasma, presented to the emergency room with palpitations. The patient reported calling EMS for associated shortness of breath, high heart rate. Per medical record patient is noncompliant with metoprolol. No reported chest pain, edema, fever, nausea vomiting diarrhea. ER evaluation BP 117 / 55; Pulse 148; Resp 30; Pulse Ox 98% on 4 lpm NC; plan to admit for COPD/ Chronic obstructive pulmonary disease with (acute) exacerbation, COPD/ Chronic obstructive pulmonary disease with acute lower respiratory infection,- Pneumonia, unspecified organism- Paroxysmal atrial fibrillation - with RVR Laboratory evaluation leukocytosis 23.70, normocytic anemia 9.7, 30.9, early left shift 75.3, CMP mild hyponatremia 134, blood glucose 179, BNP 688, troponin 23.1, COVID pending, chest x-ray IMPRESSION: Patchy opacification in the left apex, stable to mildly progressed, Focal pneumonia versus other infiltrative process should be considered. Allergies codeine [Codeine] Allergy (Intermediate, Verified 10/23/15 06:09) Hives/Rash morphine Allergy (Intermediate, Verified 10/23/15 06:09) Hives/Rash albuterol Allergy (Verified 07/11/22 01:06) Nausea/Vomiting Home Medications: Fluticasone Propion/Salmeterol [Fluticasone-Salmeterol 250-50] 1 puff IH BID 05/29/20 Aspirin [Aspirin EC 81 MG] 81 mg PO DAILY 07/11/22 Flecainide Acetate 50 mg PO BID 07/11/22 Hydrocodone/Acetaminophen [Hydrocodone-Acetamin 5-325 mg] 1 tab PO 1100,1700,2300 07/11/22 Metoprolol Succinate [Toprol Xl*] 25 mg PO BID 07/11/22 Gabapentin 600 mg PO BID 11/06/22 Pantoprazole [Protonix Tab*] 40 mg PO BID 11/06/22 Sennosides/Docusate Sodium [Senna-S 8.6-50 mg Tablet] 1 each PO BID 11/06/22 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 -: HTN -: Hysterectomy -: Tubal ligation -: tosillectomy -: R leg sx with metal screws -: Patient has had fine-needle aspiration complicated by pneumothorax -: Bronchoscopy at [facility] -: Lung transplant - Family History Mother -: Cancer Sister -: Cancer Father -: Heart disease Brother -: Lung disease - Social History Alcohol use: No CD- Drugs: No Caffeine use: No Review of Systems 10-point ROS is otherwise unremarkable Physical Examination - Physical Exam General: Alert, In no apparent distress, Oriented x3, Mild distress HEENT: Atraumatic, Normocephalic Neck: Supple, 2+ carotid pulse no bruit, JVD not distended Respiratory: Diminished Cardiovascular: No edema, Normal pulses, Regular rate/rhythm Gastrointestinal: Normal bowel sounds, Soft and benign Musculoskeletal: No clubbing, No swelling Integumentary: No rashes, No breakdown Neurological: Normal gait, Normal speech External genitalia: No edema, No lesions - Studies Laboratory Data (last 24 hrs) 11/06/22 11/06/22 11/06/22 19:15 18:43 18:43 WBC 23.70 H Hgb 9.7 L Hct 30.9 L Plt Count 465 H PT 13.1 H INR 1.19 Sodium 134 L Potassium 4.0 BUN 8 Creatinine 0.56 Glucose 179 H Assessment and Plan - Plan Assessment plan Acute hypoxic respiratory failure secondary to COPD exacerbation vs pneumonia Paroxysmal atrial fibrillation - with RVR previous MAC infection-on chronic home O2 4.5L Normocytic anemia Hyponatremia DVT prophylaxis Assessment plan Acute hypoxic respiratory failure secondary to COPD exacerbation vs pneumonia previous MAC infection-on chronic home O2 4.5L Pneumonia Pulmonary consult leukocytosis 23.70, early left shift 75.3, lactic 2.7, repeat 2.0 Nebs, resume appropriate home meds, Azithromycin, ceftriaxone, Solu-Medrol She reports being on the transplant list at [facility] IMPRESSION: Patchy opacification in the left apex, stable to mildly progressed, Focal pneumonia versus other infiltrative process should be considered you need to put it in your Paroxysmal atrial fibrillation - with RVR As needed Lopressor, resume home medications Normocytic anemia Trend H&H normocytic anemia 9.7, 30.9, Hyponatremia Trend electrolytes replace as needed mild hyponatremia 134, Diet cardiac Full code DVT Lovenox Discharge Plan: Home Plan to discharge in: 48 Hours - Advance Directives Does patient have a Living Will: No Does patient have a Durable POA for Healthcare: No - Code Status/Comfort Care Code Status: Full Code Physician Review: Patient Assessed, Agree with Above Assessment and Plan Critical Care: No Time Spent Managing Pts Care (In Minutes): 50
[2022-11-06] MEDS ORDERED: AZITHROMYCIN 500 MG INJ IVPB ONE (20:49)
[2022-11-06] MEDS ORDERED: CEFTRIAXONE 1000 MG/VIAL ONE (20:49)
[2022-11-06] MEDS ORDERED: NA CHLORIDE 0.9% 1,000 ML ONE (20:49)
[2022-11-06] MEDS ORDERED: NA CHLORIDE 0.9% 50 ML ONE (20:50)
[2022-11-06 20:52] LABS: Blood Morphology Comment NOT SEEN (NOT SEEN); Platelet Estimate INCR; White Blood Cell Scan OK (OK)
[2022-11-06] MEDS ORDERED: METOPROLOL TARTRATE 5 MG/5 ML INJ IV PRN (21:46)
[2022-11-06] MEDS ORDERED: INSULIN REGULAR (HUMAN) 100 UNIT/ML SQ SCH (21:46)
[2022-11-06] MEDS ORDERED: ALBUTEROL 2.5 MG/3 ML NEB SOL NEB PRN ×2 (21:46)
[2022-11-06] MEDS ORDERED: FENTANYL CITR 100 MCG/2 ML IV PRN (21:46)
[2022-11-06] MEDS ORDERED: ACETAMINOPHEN 500 MG TAB PO PRN (21:46)
[2022-11-06] MEDS ORDERED: IPRATROPIUM BROM 0.5MG/2.5ML NEB PRN (21:46)
[2022-11-06] MEDS ORDERED: ONDANSETRON 4 MG/2 ML VIAL IV PRN (21:46)
[2022-11-06] MEDS: INSULIN REGULAR (HUMAN) 100 UNIT/ML SQ SCH (21:46)
[2022-11-06] MEDS ORDERED: FENTANYL CITR 100 MCG/2 ML ONE (22:01)
[2022-11-06] MEDS: METHYLPREDNISOLONE 125 MG INJ IV SCH (23:34)
[2022-11-07] VITALS: BMI 20.2
[2022-11-07] MEDS: GABAPENTIN 300 MG CAP PO SCH ×2 (00:37→09:01)
[2022-11-07] MEDS: HYDROCODONE/APAP 5/325 MG TAB PO SCH ×4 (00:37→22:06)
[2022-11-07 03:11] LABS: Absolute Lymphocytes (CBC) 0.2 K/uL (0.7-4.9); Hematocrit 26.4 % (36.0-45.0); Lymphocytes % 1.3 % (15.3-44.8); MCV 87.9 fL (80-100); MPV 7.8 fL (7.6-11.3); Platelets 266 thou/uL (152-406)
[2022-11-07 03:29] LABS: Magnesium 2.1 mg/dL (1.6-2.4); Potassium 4.1 mEq/L (3.5-5.1)
[2022-11-07 04:25] LABS: Blood Morphology Comment NOT SEEN (NOT SEEN); Platelet Estimate ADEQ
[2022-11-07] MEDS: METHYLPREDNISOLONE 125 MG INJ IV SCH ×3 (06:46→17:02)
[2022-11-07] MEDS: INSULIN REGULAR (HUMAN) 100 UNIT/ML SQ SCH ×4 (07:30→21:00)
[2022-11-07] MEDS: DULERA 200/5 (MOMETASONE/FORMOTEROL) INHALER IH SCH ×2 (09:00→21:00)
--- NOTE | 2022-11-07 12:51 | EKG ---
Test Date: 2022-11-06 Test Time: 18:40:56 Auto Design Checker: MISHEL MEASUREMENT RESULTS: Intervals: Rate: 152 [place]: 132 QRSD: 68 QT: 262 QTc: 416 [place]: P: 92 [place]: 132 QRS: 43 T: 76 INTERPRETIVE STATEMENTS: Sinus tachycardia with fusion complexes Otherwise normal ECG Compared to ECG 07/10/2022 19:10:38 Fusion complex(es) now present Sinus rhythm no longer present Atrial abnormality no longer present Electronically Signed On 11-07-22 12:48:34 CDT by Chandrakant Escalera
--- NOTE | 2022-11-07 12:51 | EKG ---
Test Date: 2022-11-06 Test Time: 18:53:45 Records Clerk: MISHEL MEASUREMENT RESULTS: Intervals: Rate: 99 [place]: 166 QRSD: 68 QT: 342 QTc: 438 [place]: P: 90 NH: 166 QRS: 76 T: 86 INTERPRETIVE STATEMENTS: Normal sinus rhythm Right atrial enlargement Borderline ECG Compared to ECG 11/06/2022 18:40:56 Atrial abnormality now present Sinus tachycardia no longer present Fusion complex(es) no longer present Electronically Signed On 11-07-22 12:48:32 CDT by Chandrakant Escalera
[2022-11-07] MEDS ORDERED: FLECAINIDE 100 MG TAB PO ONE (13:49)
[2022-11-07] MEDS ORDERED: METOPROLOL TAR 25 MG TAB PO ONE (14:01)
[2022-11-07] MEDS: FLECAINIDE 100 MG TAB PO SCH ×2 (14:05→20:51)
[2022-11-07] MEDS: DOCUSATE NA/SENNA CONC 1 TAB PO SCH ×2 (14:56→20:49)
[2022-11-07] MEDS ORDERED: ENOXAPARIN 30 MG/0.3 ML SQ SCH (17:00)
[2022-11-07] MEDS: ENOXAPARIN 40 MG/0.4 ML SQ SCH (17:03)
[2022-11-07] MEDS ORDERED: AZITHROMYCIN IV 500 MG in NA CHLORIDE 0.9% 250 ML IVPB SCH (18:00)
[2022-11-07] MEDS ORDERED: CEFTRIAXONE 1,000 MG in NA CHLORIDE 0.9% 50 ML IVPB SCH (20:00)
[2022-11-07] MEDS: METOPROLOL XL 25 MG TAB PO SCH (20:49)
[2022-11-07] MEDS: PANTOPRAZOLE 40MG TABLET PO SCH (20:51)
[2022-11-07] MEDS ORDERED: HOME MED 1 EA UNK (Flecainide Acetate [Flecainide Acetate] 50 MG Tablet) PO SCH (21:00)
[2022-11-08] MEDS: METHYLPREDNISOLONE 125 MG INJ IV SCH ×4 (00:17→17:18)
[2022-11-08] MEDS: GABAPENTIN 300 MG CAP PO SCH ×3 (00:17→21:26)
[2022-11-08] MEDS: HOME MED 1 EA UNK (Fluticasone Propion/Salmeterol [Fluticasone-Salmeterol 250-50] Blst.W.D IH SCH ×3 (00:26→21:00)
[2022-11-08 06:54] LABS: Absolute Lymphocytes (CBC) 0.5 K/uL (0.7-4.9); Hematocrit 27.7 % (36.0-45.0); Lymphocytes % 3.4 % (15.3-44.8); MPV 7.3 fL (7.6-11.3); Platelets 346 thou/uL (152-406); RBC Red Blood Cell Count 3.14 M/uL (3.86-4.86)
[2022-11-08 07:09] LABS: AST/SGOT 7 U/L (15-37); Albumin 2.5 g/dL (3.4-5.0); Alkaline Phosphatase 88 U/L (45-117); BUN Blood Urea Nitrogen 13 mg/dL (7-18); Bicarbonate 34 mEq/L (21-32); Bilirubin Total 0.1 mg/dL (0.2-1.0); Glomerular Filtration Rate 108 ml/min (=/>90); Glucose Level 150 mg/dL (74-106); Magnesium 2.1 mg/dL (1.6-2.4); Potassium 3.9 mEq/L (3.5-5.1); Protein, Total 7.5 g/dL (6.4-8.2); Sodium Level 137 mEq/L (136-145)
[2022-11-08 07:10] LABS: ALT/SGPT < 10 U/L (13-56)
[2022-11-08] MEDS: INSULIN REGULAR (HUMAN) 100 UNIT/ML SQ SCH ×4 (07:30→21:00)
--- NOTE | 2022-11-08 08:08 | RAD REPORT ---
EXAM DESCRIPTION: RAD - Chest Single View - 11/08/2022 7:55 am CLINICAL HISTORY: pneumonia Chest pain. COMPARISON: Chest Single View dated 11/06/2022; Chest Single View dated 07/10/2022; Chest Single View d ated 11/23/2021; Chest Single View dated 08/02/2020 FINDINGS: Portable technique limits examination quality. Advanced emphysematous changes are present. Chronic appearing right suprahilar and left apical opacit y show no significant change since recent prior study. The heart is normal in size. IMPRESSION: Stable chest since 11/06/2022 study.
[2022-11-08] MEDS ORDERED: HYDROCODONE/APAP 10/325 TAB PO ONE (08:43)
[2022-11-08 08:52] LABS: Blood Morphology Comment NOT SEEN (NOT SEEN); Platelet Estimate ADEQ; White Blood Cell Scan OK (OK)
[2022-11-08] MEDS: DULERA 200/5 (MOMETASONE/FORMOTEROL) INHALER IH SCH ×2 (08:54→21:00)
[2022-11-08] MEDS: ASPIRIN EC 81 MG TAB PO SCH (08:54)
[2022-11-08] MEDS: DOCUSATE NA/SENNA CONC 1 TAB PO SCH ×2 (08:55→21:27)
[2022-11-08] MEDS: FLECAINIDE 100 MG TAB PO SCH ×2 (08:55→21:00)
[2022-11-08] MEDS: PANTOPRAZOLE 40MG TABLET PO SCH ×2 (08:55→21:26)
[2022-11-08] MEDS: METOPROLOL XL 25 MG TAB PO SCH ×2 (08:56→21:25)
[2022-11-08] MEDS ORDERED: POTASSIUM CL SA 10 MEQ TAB PO ONE (09:00)
[2022-11-08] MEDS: CEFDINIR 300 MG CAP PO SCH ×2 (10:45→21:27)
[2022-11-08] MEDS: HYDROCODONE/APAP 5/325 MG TAB PO SCH ×3 (12:16→22:53)
[2022-11-08] MEDS: ENOXAPARIN 40 MG/0.4 ML SQ SCH (17:17)
--- NOTE | 2022-11-08 18:33 | P.PN ---
Date of Service: 11/07/22 Subjective Patient's clinical symptoms are stable. Patient denies any new complaints. 10- point ROS is otherwise unremarkable Physical Examination -Vitals Reviewed -Physical Exam General: Alert, In no apparent distress, Oriented x3, Mild distress Respiratory: Diminished; otherwise clear Cardiovascular: Regular rate/rhythm Gastrointestinal: Normal bowel sounds, Soft and benign Musculoskeletal: No clubbing, No swelling Integumentary: No rashes, No breakdown Neurological: No focal deficits Assessment and Plan -Assessment Assessment Acute hypoxic respiratory failure secondary to COPD exacerbation vs pneumonia Paroxysmal atrial fibrillation - with RVR previous MAC infection-on chronic home O2 4.5L Normocytic anemia Hyponatremia DVT prophylaxis -Plan Plan Acute hypoxic respiratory failure secondary to COPD exacerbation vs pneumonia previous MAC infection-on chronic home O2 4.5L Pneumonia 1. Continue with po antibiotics 2. Awaiting culture 3. Repeat chest x-ray 4. Continue with nebs as needed 5. O2 per protocol 6. Continue with gentle hydration 7. Repeat labs Paroxysmal atrial fibrillation-with RVR Continue with beta-mauricio therapy Normocytic anemia Hemoglobin is stable Hyponatremia hypotremia is stable Diet cardiac Full code DVT Lovenox Discharge Plan: Home Plan to discharge in: 48 Hours - Advance Directives Does patient have a Living Will: No Does patient have a Durable POA for Healthcare: No - Code Status/Comfort Care Code Status: Full Code Physician Review: Patient Assessed, Agree with Above Assessment and Plan Critical Care: No Time Spent Managing Pts Care (In Minutes): 30
--- NOTE | 2022-11-08 18:34 | P.PN ---
Date of Service: 11/08/22 Subjective No new complaints. Clinical symptoms are better. Physical Examination -Vitals Reviewed -Physical Exam General: Alert, In no apparent distress, Oriented x3, Mild distress Respiratory: Diminished; otherwise clear Cardiovascular: Regular rate/rhythm Gastrointestinal: Normal bowel sounds, Soft and benign Musculoskeletal: No clubbing, No swelling Integumentary: No rashes, No breakdown Neurological: No focal deficits Assessment and Plan -Assessment Assessment Acute hypoxic respiratory failure secondary to COPD exacerbation vs pneumonia Paroxysmal atrial fibrillation - with RVR previous MAC infection-on chronic home O2 4.5L Normocytic anemia Hyponatremia DVT prophylaxis -Plan Plan Acute hypoxic respiratory failure secondary to COPD exacerbation vs pneumonia previous MAC infection-on chronic home O2 4.5L Pneumonia 1. Continue with po antibiotics 2. Awaiting culture 3. Repeat chest x-ray 4. Continue with nebs as needed 5. O2 per protocol 6. Continue with gentle hydration 7. Repeat labs Paroxysmal atrial fibrillation-with RVR Continue with beta-mauricio therapy Normocytic anemia Hemoglobin is stable Hyponatremia hypotremia is stable Diet cardiac Full code DVT Lovenox Discharge Plan: Home Plan to discharge in: 48 Hours - Advance Directives Does patient have a Living Will: No Does patient have a Durable POA for Healthcare: No - Code Status/Comfort Care Code Status: Full Code Physician Review: Patient Assessed, Agree with Above Assessment and Plan Critical Care: No Time Spent Managing Pts Care (In Minutes): 30
[2022-11-09 03:06] LABS: Absolute Lymphocytes (CBC) 0.4 K/uL (0.7-4.9); Lymphocytes % 4.1 % (15.3-44.8); MCV 87.9 fL (80-100); MPV 7.6 fL (7.6-11.3); Platelets 302 thou/uL (152-406); RBC Red Blood Cell Count 2.96 M/uL (3.86-4.86)
[2022-11-09 03:25] LABS: Magnesium 1.9 mg/dL (1.6-2.4); Potassium 4.5 mEq/L (3.5-5.1)
[2022-11-09] MEDS: METHYLPREDNISOLONE 125 MG INJ IV SCH ×4 (03:50→15:40)
[2022-11-09] MEDS ORDERED: HYDROCODONE/APAP 5/325 MG TAB PO ONE (08:55)
[2022-11-09] MEDS: HOME MED 1 EA UNK (Fluticasone Propion/Salmeterol [Fluticasone-Salmeterol 250-50] Blst.W.D IH SCH (09:00)
[2022-11-09] MEDS: CEFDINIR 300 MG CAP PO SCH (09:00)
[2022-11-09] MEDS: DULERA 200/5 (MOMETASONE/FORMOTEROL) INHALER IH SCH (09:00)
[2022-11-09] MEDS: GABAPENTIN 300 MG CAP PO SCH (09:29)
[2022-11-09] MEDS: ASPIRIN EC 81 MG TAB PO SCH (09:29)
[2022-11-09] MEDS: FLECAINIDE 100 MG TAB PO SCH (09:30)
[2022-11-09] MEDS: METOPROLOL XL 25 MG TAB PO SCH (09:30)
[2022-11-09] MEDS: PANTOPRAZOLE 40MG TABLET PO SCH (09:31)
[2022-11-09] MEDS: DOCUSATE NA/SENNA CONC 1 TAB PO SCH (09:31)
[2022-11-09] MEDS: HYDROCODONE/APAP 5/325 MG TAB PO SCH (12:30)
[2022-11-09 14:07] VITALS: BP 123/61; TEMP 97.6
[2022-11-09 17:33] VITALS: O2SAT 96
[2022-11-10] MEDS ORDERED: AZITHROMYCIN 250 MG TAB PO SCH (17:00)
--- NOTE | 2022-11-18 03:41 | P.DS ---
Discharge Date: 11/09/22 Disposition: DC HOME/HOME HEALTH CARE Discharge Condition: GOOD Reason for Admission: shortness of breath Brief History of Present Illness: Patient is a 62-year-old female with a past medical history of COPD, nontuberculosis mycoplasma, presented to the emergency room with palpitations. The patient reported calling EMS for associated shortness of breath, high heart rate. Per medical record patient is noncompliant with metoprolol. No reported chest pain, edema, fever, nausea vomiting diarrhea. ER evaluation BP 117 / 55; Pulse 148; Resp 30; Pulse Ox 98% on 4 lpm NC; plan to admit for COPD/ Chronic obstructive pulmonary disease with (acute) exacerbation, COPD/ Chronic obstructive pulmonary disease with acute lower respiratory infection,- Pneumonia, unspecified organism- Paroxysmal atrial fibrillation - with RVR Laboratory evaluation leukocytosis 23.70, normocytic anemia 9.7, 30.9, early left shift 75.3, CMP mild hyponatremia 134, blood glucose 179, BNP 688, troponin 23.1, COVID pending, chest x-ray IMPRESSION: Patchy opacification in the left apex, stable to mildly progressed, Focal pneumonia versus other infiltrative process should be considered. Hospital Course: Patient's respiratory status has improved. Patient clinically doing well. At this time, patient is stable for discharge home. Vital Signs/Physical Exam: Temp Pulse Resp BP Pulse Ox 97.6 F 59 16 123/61 99 11/09/22 12:00 11/09/22 12:00 11/09/22 12:30 11/09/22 12:00 11/09/22 12:30 General: Alert, In no apparent distress, Oriented x3 Laboratory Data at Discharge: WBC 9.20 thou/uL (4.3-10.9) 11/09/22 01:53 Hgb 8.5 g/dL (12.0-15.0) L 11/09/22 01:53 Hct 26.0 % (36.0-45.0) L 11/09/22 01:53 Plt Count 302 thou/uL (152-406) 11/09/22 01:53 PT 13.1 SECONDS (9.5-12.5) H 11/06/22 19:15 INR 1.19 11/06/22 19:15 Sodium 139 mEq/L (136-145) 11/09/22 01:53 Potassium 4.5 mEq/L (3.5-5.1) D 11/09/22 01:53 BUN 26 mg/dL (7-18) H 11/09/22 01:53 Creatinine 0.44 mg/dL (0.55-1.02) L 11/09/22 01:53 Glucose 146 mg/dL (74-106) H 11/09/22 01:53 Magnesium 1.9 mg/dL (1.6-2.4) 11/09/22 01:53 Total Bilirubin 0.1 mg/dL (0.2-1.0) L 11/08/22 06:42 AST 7 U/L (15-37) L 11/08/22 06:42 ALT < 10 U/L (13-56) L 11/08/22 06:42 Alkaline Phosphatase 88 U/L (45-117) 11/08/22 06:42 Home Medications: Fluticasone Propion/Salmeterol [Fluticasone-Salmeterol 250-50] 1 puff IH BID 05/29/20 Aspirin [Aspirin EC 81 MG] 81 mg PO DAILY 07/11/22 Flecainide Acetate 50 mg PO BID 07/11/22 Metoprolol Succinate [Toprol Xl*] 25 mg PO BID 07/11/22 Gabapentin 600 mg PO BID 11/06/22 Pantoprazole [Protonix Tab*] 40 mg PO BID 11/06/22 Sennosides/Docusate Sodium [Senna-S 8.6-50 mg Tablet] 1 each PO BID 11/06/22 Azithromycin Tab [Zithromax*] 250 mg PO M,W,F #30 tab 11/09/22 Cefdinir [Cefdinir*] 300 mg PO BID #14 cap 11/09/22 Hydrocodone 5/APAP 325 [[place] 5/325*] 1 tab PO Q6HP PRN #60 tab 11/09/22 predniSONE [Deltasone] 20 mg PO BID #30 tab 11/09/22 New Medications: Cefdinir [Cefdinir*] 300 mg PO BID #14 cap Hydrocodone 5/APAP 325 [[place] 5/325*] 1 tab PO Q6HP PRN #60 tab PRN Reason: Pain Scale 8-10 (Severe) predniSONE [Deltasone] 20 mg PO BID #30 tab Azithromycin Tab [Zithromax*] 250 mg PO M,W,F #30 tab Physician Discharge Instructions: PROBLEM: Atrial Fibrillation GOAL: Clear understanding of disease process INSTRUCTIONS: DC IV and DC home -Follow-up with PCP in 1 to 2 weeks -Follow-up with Pulmonary in 1 to 2 weeks -Please call Dr. Chery at [phone] if any questions regarding hospital stay -Please call nursing station at [phone] if any nursing or medication questions -Return to the emergency room if symptoms worsen Diet: Low sodium Activity: Fall precautions -DC IV and DC home -Follow-up with PCP in 1 to 2 weeks -Follow-up with Pulmonary in 1 to 2 weeks -Please call Dr. Chery at [phone] if any questions regarding hospital stay -Please call nursing station at [phone] if any nursing or medication questions -Return to the emergency room if symptoms worsen Follow up with a Sewer of your choice: ABIOLA IQBAL MD [address] [place] [id number] Diet: Low sodium Activity: Fall precautions Followup: Jordy Zarco MD [Primary Care Provider] - Time spent managing pt's care (in minutes): 35
== END 2022-11-09 16:40 | disposition home health service (06) | DRG 193 ==
LOC: ER 18:30 → ERHOLD 20:20 → 2ND 22:30
PROVIDERS: ADMIT Hospitalist; ATTEND Hospitalist
DX: J18.9 Pneumonia, unspecified organism (principal); J96.01 Acute respiratory failure with hypoxia; E87.1 Hypo-osmolality and hyponatremia; Z94.2 Lung transplant status; I48.0 Paroxysmal atrial fibrillation; D64.9 Anemia, unspecified; J43.9 Emphysema, unspecified; T44.7X6A Underdosing of beta-adrenoreceptor antagonists, initial encounter; Z88.5 Allergy status to narcotic agent; Z88.8 Allergy status to other drugs, medicaments and biological substances; Z79.52 Long term (current) use of systemic steroids; Z11.52 Encounter for screening for COVID-19; Z79.82 Long term (current) use of aspirin; Z99.81 Dependence on supplemental oxygen; Z98.51 Tubal ligation status; Z91.138 Patient's unintentional underdosing of medication regimen for other reason; Z91.148 Patient's other noncompliance with medication regimen for other reason; Z79.899 Other long term (current) drug therapy; Z90.710 Acquired absence of both cervix and uterus
CPT/HCPCS: 36415; 71045; 80048; 80053; 82947; 83605; 83735; 83880; 84145; 84484; 85025; 85610; 87040; 87635; 87804; 93005; 94760; 96374; 96375; 99285; J0696; J1650; J2930; J3010; J3475; J3535; J7030; J7050; J7614; J7644

== ENCOUNTER 2022-12-11 20:30 | Inpatient (IN) | payer OTHER ==
--- OUTSIDE RECORDS SUMMARY | 2022-12-11 20:33 | XMS REPORT | Clinical Summary ---
:1960 Author Organization [facility] MD [facility] Address [address] [place] [address] Care Team Providers Name Role Phone Rachel [...] Used Date Smoking Tobacco: Never Assessed Sex and Gender Information Value Date Recorded Sex Assigned at Not on file Gender Identity Not on file Sexual Orientation Not on file Last Filed Vital Signs Not on file Plan of Treatment Health Maintenance Due Date Last Done Comments COVID-19 Vaccination (10/06/2022 01/22/2022, , season) 06/29/2021, Additional history exists Results Not on fileafter 12/11/2021 Insurance Payer Benefit Plan / Subscriber ID Effective Dates Phone Addre ss Type Group MEDICARE MEDICARE PART [id number] 2013-Suha [phone] [facility] Medicare A AND B t 2 [employer] [address] [place] [phone] (Home) [place] [id number] Kallie Correia Personal/Family Self [address] (Home) [place] [id number] Kallie Correia Personal/Family Self [address] (Home) [place] [id number] Care Teams Industrial Education Instructor Relationship Specialty Start Date End Date Rachel Greenberg MD PCP - General 04/07/15 Daria Roth MD PCP - External Referring 12/02/13 Daria Roth MD PCP - External Follow Up A 12/02/13 Dennis Trent MD Physician 04/14/[address] [place], [place] [id number] Rachel Greenberg MD Physician 04/14/15 Leidy Scanlon PA Physician Taproom Attendant 04/14/[address] [place] [id number] Leigh Johnson PA Physician Taproom Attendant 04/14/[address] [place] [phone] Kylah Redd MD Physician 04/14/[address] [place] [id number] Tani Daniel MD Physician 04/14/[address] [place] [phone] Pham Thomas APRN Nurse Practitioner 04/14/[address] [place] [id number] Verna Felipe APRN Nurse Practitioner 04/14/[address] [place] [id number] Emile Ochoa PA Physician Taproom Attendant 04/14/[address] [place] [id number]
--- OUTSIDE RECORDS SUMMARY | 2022-12-11 20:52 | XMS REPORT | Continuity of Care Document ---
:1960 Author Organization [facility] t Address [address] [place] [address] Care Team Providers Name Role Phone Carolee Albarado MD, oJrdy Primary Care Physician [phone] Attending Clinician Unavailable DEMI VALADEZ Attending Clinician Unavailable Jeanne Moy Attending Clinician Unavailable Doctor Unassigned, Chase Attending Clinician Unavailable No Mirza Attending Clinician NO NASSAR Attending Clinician Unavailable PORSCHE MOORE Attending Clinician Unavailable Porsche Moore DO Attending Clinician Nelda ESQUIVEL, Fernandez Hyatt Attending Clinician [phone] Loree REID, Angelica Attending Clinician Unavailable Makenna ESQUIVEL, Aftab Quiroz Attending Clinician Virginia ESQUIVEL, Nicole Ramírez Attending Clinician [phone] Cuate ESQUIVEL, Demi Rand Attending Clinician Ekta ESQUIVEL, Ramon Attending Clinician Jenae ESQUIVEL, Wiliam Cintron Attending Clinician [phone] Pauly ESQUIVEL, Alpesh Attending Clinician Hernan Hampton MD Attending Clinician Caleb Reid Attending Clinician Inder ESQUIVEL, Miesha Charles Attending Clinician [phone] Kaylyn VASQUEZ, Dionne Attending Clinician Sabino Lopez DO Attending Clinician Alvarez Lawson Attending Clinician Unavailable Nawaf Wynn MD Attending Clinician Perry ESQUIVEL, Simran Attending Clinician Asael ESQUIVEL, Beulah Nova Attending Clinician Gina Orosco RN Attending Clinician Unavailable Fanta Tijerina Attending Clinician Unavailable Consuelo Brand Attending Clinician Unavailable Joy ESQUIVEL, Cesar Attending Clinician Erik ESQUIVEL, Luis Alaniz Attending Clinician Maryellen Roach APRN Attending Clinician [phone] Preeti Bejarano RN Attending Clinician Unavailable RADIOLOGY Attending Clinician Unavailable Radiology Attending Clinician Unavailable Hodan ESQUIVEL, Karina Attending Clinician Esther ESQUIVEL, Rickie Tellez Attending Clinician Edith ESQUIVEL, Suki Reeder Attending Clinician [phone] Katie Ramirez Attending Clinician Unavailable Leonid ESQUIVEL, Demetrius Gomez Attending Clinician Junie Stearns LVN Attending Clinician Unavailable EDWARD REIS Attending Clinician Unavailable Edward Reis DO Attending Clinician Juan ESQUIVEL, Rainer Weiss Attending Clinician RAKEL FULTON Attending Clinician Unavailable Evelia ESQUIVEL, Rakel Donis Attending Clinician Rolanda Dimas MA Attending Clinician Unavailable Jaye REID, Nancy Attending Clinician Unavailable Brooke Murphy RN Attending Clinician Unavailable Vipin REID, Josiah Attending Clinician Unavailable Mariola Angel LCSW Attending Clinician Unavailable Carlos Yang RN Attending [...] Clinician Unavailable Danial Hylton MD Attending Clinician Nick ESQUIVEL, Tu Attending Clinician Ruthann Green MA Attending Clinician Unavailable Geoff ESQUIVEL, Angeline Attending Clinician Smitha REID, Tanja Attending Clinician Unavailable Robina De La Vega MA Attending Clinician Unavailable Sally Carty MA Attending Clinician Unavailable Benjy Hernandez MD Attending Clinician Elba Renteria Attending Clinician Unavailable Franky EMANUEL, Araceli Attending Clinician Unavailable Pamela JHAVERI, Joi QErin Attending Clinician Av RN, Krissy Attending Clinician Unavailable Abena BANQUET LINE COOK, Lottie Attending Clinician Abdelrahman VASQUEZ, Dixie Attending Clinician Violeta ESQUIVEL, Shayy Mcintosh Attending Clinician Lissette ESQUIVEL, Damien Tellez Attending Clinician [phone] Provider, Unknown Attending Clinician Unavailable Jordy Zarco MD Attending Clinician Provider , Not In System Attending Clinician Unavailable HARESH CASAREZ Attending Clinician Unavailable Haresh Casarez MD Attending Clinician Yanci Lujan Attending Clinician Unavailable Jovani Boyle MD Attending Clinician Idalia Sofia Attending Clinician SABINO LOPEZ Attending Clinician Unavailable SABINO LOPEZ Attending Clinician Unavailable Ilir Lindsey Rahil Attending Clinician Unavailable Renata Belle LVN Attending Clinician Unavailable Robbie Braga MD Attending Clinician Fernanda Guillermo MD Attending Clinician Caitlin Sandhu MA Attending Clinician Unavailable Brianne Hickey MD Attending Clinician LOREN PATRICIO Attending Clinician Unavailable MD SHANTEL WARD Attending Clinician Unavailable NAMOI LOPEZ Attending Clinician Unavailable Amadeo PAC, K Mary Attending Clinician Terrence ESQUIVEL, Yenni Attending Clinician Ernestine ESQUIVEL, Jessie Roque Attending Clinician [phone] Davon Pizarro MD Attending Clinician JOHN HOOPER Attending Clinician Unavailable GC_[email or web address]_Awan_R Attending Clinician Unavailable Shayla Mcfarland Attending Clinician [phone] Rupa Kahn MD Attending Clinician RUPA KAHN Attending Clinician Unavailable Ward Chavez MD Attending Clinician Wayne Harris DO Attending Clinician Fiordaliza ESUQIVEL, Hernan De La Vega Attending Clinician AVRIL RUBIO Attending Clinician Unavailable Franco Mercado MD Attending Clinician Fellow, Pulmonary Attending Clinician Unavailable Lucio ESQUIVEL, Hany Mathur Attending Clinician [phone] Sheron Klein RN Attending Clinician Unavailable HERNAN MUNOZ Attending Clinician Unavailable Mansi Pollard MD Attending Clinician Dar Golden MD Attending Clinician STUART SHAIKH Attending Clinician Unavailable Kalen Segovia MD Attending Clinician [facility] Attending Clinician Unavailable Preeti Lamar MD Attending Clinician PREETI LAMAR Attending Clinician Unavailable DAVON PIZARRO Attending Clinician Unavailable So Fofana Attending Clinician BRIANNE HICKEY Attending Clinician Unavailable [id number] Admitting Clinician Unavailable ILIR LINDSEY Admitting Clinician Unavailable PORSCHE MOORE Admitting Clinician Unavailable AFTAB MURPHY Admitting Clinician [...] Date Expiration Date Jewels [facility] [id number] 2017 00:00:00 [place]ID [place] [id number] 2017 00:00:00 [facility] [id number] MISD MISD [id number] [facility] [id number] 2019 PREFERRED (MEDICARE 00:00:00 REPLACEMENT HMO) [id number] Problems Condition Condition Condition Status Onset Resolution Last Treating Co mments Source Name Details Category Date Date Treatment Clinician Date Lung Lung Disease Active Methodi transplant transplant 3 candidate candidate 00:00: Hosp nuha 00 l COPD COPD Disease Active Methodi exacerbati exacerbati - st on on 00:00: Hospita 00 l Encounter Encounter Disease Active Met hodi for for 03-27 colorectal colorectal 00:00: Ho [facility]ita cancer cancer [...] to 1-22 ity of organism organism 00:00: [place] 00 [facility] Atheroscle Atheroscle Disease Active 2021-02 U nivers rosis of rosis of 0-30 ity of [place] 00:00: [place] coronary coronary 00 Medica l artery of artery of Bran ch [place] heart heart without without angina angina pectoris pectoris Elevated Elevated Disease Active 2021-02 Unive rs brain brain 0-30 ity of [place] c peptide c peptide 00 Medi kandis (BNP) (BNP) Branch level level Sinus Sinus Disease Active 2021-02 Univers tachycardi tachycardi 0-30 it y of a a 00:00: [place] 00 [facility] COPD with COPD with Disease Active 2021-02 Uni vers acute acute 0-29 ity of exacerbati exacerb[place] COVID-19 COVID-19 Disease Active Unive rs 7-28 ity of 00:00: [place] 00 Medical [facility] Coronary Coronary Disease Active Metho di artery artery 5-13 st disease disease 00:00: Hospita involving involving 00 l [place] coronary coronary artery of artery of [place] heart heart without without angina angina pectoris pectoris Pure Pure Disease Active Methodi hyperchole hyperchole 5-13 [address] sterolemia sterolemia 00:00: Ho spita 00 l Coronary Coronary Disease Active Metho di artery artery 5-13 st disease disease 00:00: Hospita involving involving 00 l [place] coronary coronary artery of artery of [place] heart heart without without angina angina pectoris [...] y distress 2-08 it y of 00:00: [place] [address] Medical Branch COPD with COPD with Disease Active 2020-02 Uni vers exacerbati exacerbati 2-07 it y of on on 00:00: [place] [address] Medical Branch Abnormal Abnormal Disease Active 2020-02 [...] 2020-02 U nivers 1-12 ity of 00:00: [address] Atrial Atrial Disease Active 2020-02 Overview: Method i fibrillati fibrillati 0-[address] on on 00:00: g of this Hospita 00 note l might be different from the original. Added automatic ally from request for surgery [id number] COPD with COPD with Disease Active Met hodi acute acute 10-08 st exacerbati exacerbati 00:00: Ho spita on on 00 l Hemoptysis Hemoptysis Disease Active M ethodi 903 st 00:00: Hospita 00 l Anxiety Anxiety Disease Active Methodi 03 st 00:00: Hospita 00 l Occult Occult Disease Active Overview: Method i blood in blood in 10-[address] stools stools 00:00: g of this Hospita 00 note l might be different from the original. Added automatic ally from request for surgery [id number] Chronic Chronic Disease Active Methodi obstructiv obstructiv 8-11 st e e 00:00: Hospita pulmonary pulmonary 00 l disease disease with acute with acute exacerbati exacerbati on on COPD COPD Disease Active Univers exacerbati exacerbati 7-04 it y of on on 00:00: [place] 00 [facility] Hemoptysis Hemoptysis Disease Active U nivers 6-11 ity of 00:00: [place] 00 [facility] Atypical Atypical Disease Active Unive rs chest pain chest pain 5-09 it y of 00:00: [place] 00 [facility] History of History of Disease Active M ethodi pulmonary pulmonary 5-09 st embolism embolism 00:00: Hospit a 00 l Pneumonia Pneumonia Disease Active Uni vers 5-07 ity of 00:00: [place] 00 Medical Branch 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 U nivers protein-ca protein-ca 4-17 it y of tenisha steven 00:00: [place] malnutriti malnutriti 00 Me dical on on Branch Cavitary Cavitary Disease Active Unive rs lung lung 4-17 ity of disease disease 00:00: [place] 00 [facility] Other Other Disease Active Methodi chronic chronic 4-17 st pain pain 00:00: Hospita 00 l 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 4-16 st complex complex 00:00: Hospita 00 l Unspecifie Unspecifie Disease Active M ethodi d severe d severe 2-07 st protein-ca protein-ca 00:00: [place] farahie tenisha 00 l malnutriti malnutriti on on Hypoxia Hypoxia Disease Active Methodi 2-06 st 00:00: Hospita 00 l E44.0 E44.0 Disease Active Univers Moderate Moderate 2-05 ity of protein protein 00:00: [place] calorie calorie 00 Medical malnutriti malnutriti Br anch on on PAF PAF Disease Active Univers (paroxysma (paroxysma 2-03 it y of l atrial l atrial 00:00: [place] fibrillati fibrillati 00 Me dical on) on) Branch Bradycardi Bradycardi Disease Active M ethodi a a 2- st 00:00: Hospita 00 l Essential Essential Disease Active Met hodi hypertensi hypertensi 2-03 st on on 00:00: Hospita 00 l Septic Septic Disease Active Methodi shock shock 2 st 00:00: Hospita 00 l Right Right Disease Active 2020-0 Methodi upper lobe upper lobe 2-02 st [...] - [facility] kandis kandis St examinatio examinatio [facility] n without n without Medi kandis abnormal abnormal Center finding finding Hot Hot Problem Active Common flashes flashes Spirit due to due to - [facility] menopause menopause [facility] Encounter Encounter Problem Active Com mon for for Spirit screening screening - CH I mammogram mammogram St for breast for breast [facility] cancer cancer [facility] Allergies, Adverse Reactions, Alerts Allergy Allergy Status [...] See "makes U nivers ty to comments 10-25 heart ity of adverse 00:00: stop" [place] reaction 00 Medical s Branch MORPHINE DRUG Active Other-Cmnt Univ ers INGREDI 10-25 ity of 00:00: [place] 00 Medical Branch Morphine Allergy Active Confusion, Mere via to Respiratory Medic al substanc distress e MORPHINE Adverse Active Info Not Commo n Reaction Available [facility] Family History Family Member Diagnosis Comments Start Date Stop Date Source Natural father [facility] Natural mother Cancer [facility] Natural mother Lung [facility] Social History Social Habit Start Date Stop Date Quantity Comments Source Gender identity [facility] [place] [facility] History SDOH [facility] St[facility] Hospit al History SDID [facility] Alcohol intake 2022-09-21 2022-09-21 Ex-drinker [facility] 00:00:00 00:00:00 (finding) Hospital History of Social 2022-09-21 2022-09-[address] function 00:00:00 00:00:00 Hospital Exposure to 2022-03-07 2022-03-17 Not sure University SARS-CoV-2 (event) 00:00:00 15:05:00 [facility] Tobacco use and 2022-03-16 2022-03-16 Smokeless [facility] exposure 00:00:00 00:00:00 tobacco non-user Hospital Cigarettes smoked 2022-03-16 2022-03-[address] current (pack per 00:00:00 00:00:00 Hospita l day) - Reported Cigarette 2022-03-16 2022-03-16 [facility] pack-years 00:00:00 00:00:00 Hospital Tobacco Comment 2021-11-24 2021-11-24 Uses Universit y of 00:00:00 00:00:00 [id number] 4 [place] Med ical years ago Branch History SDOH 2020-09-15 2020-09-15 1 [facility] Alcohol Frequency 00:00:00 00:00:00 Hospita l Education 2020-08-09 2020-08-09 12 University of 00:00:00 00:00:00 [facility] Alcohol Comment 2017-11-05 2017-11-05 rare Universit y of 00:00:00 00:00:00 [facility] History of tobacco 2017-07-18 Cigarette Smoker [facility] use 00:00:00 Hospital Sex Assigned At [birth year] Universit y of 00:00:00 00:00:00 [place] [facility] Smoking Status Start Date Stop Date Source Ex-smoker 2022-03-16 00:00:00 2022-03-16 00:00:00 [facility] Medications Ordered Filled Start Stop Current Ordering Indication Dosage Frequency Signature Comments Components Source Medication Medication Date Date Medication? Clinician (SIG) Name Name FENTanyl PF 2022-02 No 25ug 25 mcg, Un jb (SUBLIMAZE 11-06 Slow IV ity o f (PF)) 08:15: 07:36 Push, [place] injection 00 :00 ONCE, 1 Medical 25 [...] IV ity of (PF)) 07:00: 07:03 [place], [place] injection 00 :00 ONCE, 1 Medical 20 [...] DAILY TAKE 30-60 MINS PRIOR TO MEALS pantoprazol Yes TAKE 1 Meth jill e 9-[address] (PROTONIX) 00:00: MOUTH 2 Hosp nuha 40 MG EC 00 TIMES l tablet DAILY TAKE 30-60 MINS PRIOR TO MEALS pantoprazol 2023-0 Yes TAKE 1 Meth jill e 9-[address] (PROTONIX) 00:00: MOUTH 2 Hosp nuha 40 MG EC 00 TIMES l tablet DAILY TAKE 30-60 MINS PRIOR TO MEALS ondansetron 2023-0 Yes 8mg Q8H Take 1 Meth jill ODT 8-17 tablet (8 st (ZOFRAN-ODT 16:14: mg total) H ospita ) 8 MG 04 by mouth l disintegrat every 8 ing tablet (eight) hours as needed for nausea or vomiting. flecainide 2023-0 Yes 50mg QD Take 1 Metho di (TAMBOCOR) 8-17 tablet (50 st 50 MG 16:14: mg total) Hospita tablet 04 by mouth l daily. ondansetron 2023-0 Yes 8mg Q8H Take 1 Meth jill ODT 8-17 tablet (8 st (ZOFRAN-ODT 16:14: mg total) H ospita ) 8 MG 04 by mouth l disintegrat every 8 ing tablet (eight) hours as needed for nausea or vomiting. flecainide 2023-0 Yes 50mg QD Take 1 Metho di (TAMBOCOR) 8-17 tablet (50 st 50 MG 16:14: mg total) Hospita tablet 04 by mouth l daily. ondansetron 2023-0 Yes 8mg Q8H Take 1 Meth jill ODT 8-17 tablet (8 st (ZOFRAN-ODT 16:14: mg total) H ospita ) 8 MG 04 by mouth l disintegrat every 8 ing tablet (eight) hours as needed for nausea or vomiting. flecainide 2023-0 Yes 50mg QD Take 1 Metho di (TAMBOCOR) 8-17 tablet (50 st 50 MG 16:14: mg total) Hospita tablet 04 by mouth l daily. HYDROcodone 2022-0 2022- [place] [id number] 1{tbl} Q.[id number] Take 1 Methodi -acetaminop 8-17 08-[id number] hen (NORCO) 16:14: 00:00 3D mouth 3 Ho spita 5-325 mg 04 :00 (three) l per tablet times a day .acute pain. 11am; 5pm; 11pm. Max Daily Amount: 3 tablets HYDROcodone 2022-2022- [place] [id number] 1{tbl} Q.[id number] Take 1 Methodi -acetaminop 8-17 -[id number] hen (Captio) 16:14: 00:00 3D mouth 3 Ho spita 5-325 mg 04 :00 (three) l per tablet times a day .acute pain. 11am; 5pm; 11pm. Max Daily Amount: 3 tablets HYDROcodone 2022-2022- [place] [id number] 1{tbl} Q.[id number] Take 1 Methodi -acetaminop -21 09-[id number] hen (Captio) 16:14: 00:00 3D mouth 3 Ho spita 5-325 mg 04 :00 (three) l per tablet times a day .acute pain. 11am; 5pm; 11pm. Max Daily Amount: 3 tablets predniSONE No Take 2 Meth jill (DELTASONE) 09-21-[address] 20 mg 00:00: 04:59 (40 mg Hospita tablet 00 :00 total) by l mouth daily for 3 days, THEN 1.5 tablets (30 mg total) daily for 3 days, THEN 1 tablet (20 mg total) daily for 3 days, THEN 0.5 tablets (10 mg total) daily for 3 days. predniSONE No Take 2 Meth jill (DELTASONE) -21 09-[address] 20 mg 00:00: 04:59 (40 mg Hospita tablet 00 :00 total) by l mouth daily for 3 days, THEN 1.5 tablets (30 mg total) daily for 3 days, THEN 1 tablet (20 mg total) daily for 3 days, THEN 0.5 tablets (10 mg total) daily for 3 days. predniSONE No Take 2 Meth jill (DELTASONE) - 08-[address] 20 mg 00:00: 04:59 (40 mg Hospita tablet 00 :00 total) by l mouth daily for 3 days, THEN 1.5 tablets (30 mg total) daily for 3 days, THEN 1 tablet (20 mg total) daily for 3 days, THEN 0.5 tablets (10 mg total) daily for 3 days. gabapentin 2022-0 202- No 400mg Q.5D Take 1 Met hodi (NEURONTIN) 8-16 08-[address] 400 mg 16:14: 00:00 (400 mg Hospita capsule 29 :00 total) by l mouth 2 (two) times a day. gabapentin 2022-0 2022- No 400mg Q.5D Take 1 Met hodi (NEURONTIN) 8-16 08-[address] 400 mg 16:14: 00:00 (400 mg Hospita capsule 29 :00 total) by l mouth 2 (two) times a day. gabapentin 2022-0 2022- No 400mg Q.5D Take 1 Met hodi (NEURONTIN) 8-16 08-[address] 400 mg 16:14: 00:00 (400 mg Hospita capsule 29 :00 total) by l mouth 2 (two) times a day. fluticasone 2022-0 Yes 1{puff} Q.5D Inhale 1 Methodi propion-tavia 8-[address] meteroL 16:14: (two) Hospita (ADVAIR/ 27 times a l WIXELA day. INHUB) 250-50 [...] st 16:14: mouth Hospita 27 daily. l fluticasone 2022-0 Yes 1{puff} Q.5D Inhale 1 Methodi propion-tavia 8-[address] meteroL 16:14: (two) Hospita (ADVAIR/ 27 times a l WIXELA day. INHUB) 250-50 mcg/dose DISKUS aspirin 3-0 Yes 81mg QD Take 1 Methodi (ECOTRIN) 8-16 tablet (81 st 81 MG 16:14: mg total) Hospita enteric 27 by mouth l coated daily. tablet metoprolol 2023-0 Yes 25mg QD Take 1 Metho di succinate 8-16 tablet (25 st XL 16:14: mg total) Hospita (TOPROL-XL) 27 by mouth l 25 mg 24 hr daily. tablet multivitami 2023-0 Yes 1{tbl} QD Take 1 Me thodi n tablet 8-[address] 16:14: mouth Hospita 27 daily. l fluticasone 2023-0 Yes 1{puff} Q.5D Inhale 1 Methodi propion-tavia 8-[address] meteroL 16:14: (two) Hospita (ADVAIR/ 27 times a l WIX day. INHUB) 250-50 mcg/dose DISKUS aspirin 2023-0 Yes 81mg QD Take 1 Methodi (ECOTRIN) 8-16 tablet (81 st 81 MG 16:14: mg total) Hospita enteric 27 by mouth l coated daily. tablet metoprolol 2023-0 Yes 25mg QD Take 1 Metho di succinate 8-16 tablet (25 st XL 16:14: mg total) Hospita (TOPROL-XL) 27 by mouth l 25 mg 24 hr daily. tablet multivitami 3-0 Yes 1{tbl} QD Take 1 Me thodi n tablet 8-[address] 16:14: mouth Hospita 27 daily. l HYDROcodone 2023-0 Yes [id number] 1{tbl} Q4H Take 1 M ethodi -acetaminop 8-[address] [employer]) 00:00: mouth Hospi ta 7.5-325 mg 00 every 4 l per tablet (four) hours as needed for severe pain .acute pain. Max Daily Amount: 6 tablets HYDROcodone 2023-0 Yes [id number] 1{tbl} Q4H Take 1 M ethodi -acetaminop 8-[address] [employer]) 00:00: mouth Hospi ta 7.5-325 mg 00 every 4 l per tablet (four) hours as needed for severe pain .acute pain. Max Daily Amount: 6 tablets HYDROcodone 2023-0 Yes [id number] 1{tbl} Q4H Take 1 M ethodi -acetaminop 8-[address] [employer]) 00:00: mouth Hospi ta 7.5-325 mg 00 every 4 l per tablet (four) hours as needed for severe pain .acute pain. Max Daily Amount: 6 tablets gabapentin 2022-0 2022- No 600mg Q.5D Take 2 Met hodi (NEURONTIN) 09-20-[address] 300 mg 00:00: 04:59 (600 mg Hospita capsule 00 :00 total) by l mouth 2 (two) times a day for 30 days. gabapentin 2022-0 2022- No 600mg Q.5D Take 2 Met hodi (NEURONTIN) 09-[address] 300 mg 00:00: 04:59 (600 mg Hospita capsule 00 :00 total) by l mouth 2 (two) times a day for 30 days. gabapentin 2022-0 2022- No 600mg Q.5D Take 2 Met hodi (NEURONTIN) 09-[address] 300 mg 00:00: 04:59 (600 mg Hospita capsule 00 :00 total) by l mouth 2 (two) times a day for 30 days. predniSONE 2022-0 2022- No 10mg QD Take 1 Meth jill (DELTASONE) 08-31- tablet (10 s t 10 mg 13:22: 00:00 mg total) Hospit a tablet 04 :00 by mouth l daily. predniSONE 2022-0 2022- No 10mg QD Take 1 Meth jill (DELTASONE) 08-31-27 tablet (10 s t 10 mg 13:22: 00:00 mg total) Hospit a tablet 04 :00 by mouth l daily. predniSONE 2022-0 2022- No 10mg QD Take [...] times a l on inhaler day. ipratropium 2023-0 2024- No 1{puff} Q.25D Inhale 1 Methodi (ATROVENT 5-24 05-[address] HFA) 17 00:00: 04:59 (four) Hospita mcg/actuati 00 :00 times a l on inhaler day. ipratropium 2023-0 2024- No 1{puff} Q.25D Inhale 1 Methodi (ATROVENT 5-24 05-[address] HFA) 17 00:00: 04:59 (four) Hospita mcg/actuati 00 :00 times a l on inhaler day. ipratropium 3-0 2024- No 1{puff} Q.25D Inhale 1 Methodi (ATROVENT 5-24 05-[address] HFA) 17 00:00: 04:59 (four) Hospita mcg/actuati 00 :00 times a l on inhaler day. predniSONE 3-0 2023- No 5mg QD Take 1 Meth jill (DELTASONE) 06-28-27 tablet (5 st 5 mg tablet 00:00: 00:00 mg total) Hospita 00 :00 by mouth l daily. predniSONE 2023-0 2023- No 5mg QD Take 1 Meth jill (DELTASONE) 06-28-27 tablet (5 st 5 mg tablet 00:00: 00:00 mg total) Hospita 00 :00 by mouth l daily. predniSONE 2023-0 2023- No 5mg QD Take 1 Meth jill (DELTASONE) 06-28-27 tablet (5 st 5 mg tablet 00:00: 00:00 mg total) Hospita 00 :00 by mouth l daily. predniSONE 2023-0 Yes 10mg QD Take 1 Metho di (DELTASONE) 5-18 tablet (10 st 10 mg 14:47: mg total) Hospita tablet 59 by mouth l daily. gabapentin 2023-0 Yes 400mg Q.5D Take 1 Meth jill (NEURONTIN) 5-[address] 400 mg 14:45: (400 mg Hospita capsule 49 total) by l mouth 2 (two) times a day. fluticasone 0 Yes 1{puff} Q.5D Inhale 1 Methodi propion-tavia 5-[address] meteroL 14:45: (two) Hospita (ADVAIR/ 49 times a l WIXELA day. INHUB) 250-50 mcg/dose DISKUS aspirin 2022-0 Yes 81mg QD Take 1 Methodi (ECOTRIN) 5-18 tablet (81 st 81 MG 14:45: mg total) Hospita enteric 49 by mouth l coated daily. tablet metoprolol 0 Yes 25mg QD Take 1 Metho di succinate 5-18 tablet (25 st XL 14:45: mg total) Hospita (TOPROL-XL) 49 by mouth l 25 mg 24 hr daily. tablet multivitami 0 Yes 1{tbl} QD Take 1 Me thodi [...] :00 by mouth l daily. flecainide 2022-0 3- No 50mg QD Take 1 Meth jill (TAMBOCOR) 5-18 05-18 tablet (50 st 50 MG 14:44: 00:00 mg total) Hospit a tablet 13 :00 by mouth l daily. sucralfate 2022-0 Yes 1g Q.[id number] Take 1 Methodi (CARAFATE) 3-30 [id number] tablet (1 st 1 gram 00:00: 3D g total) Hospita tablet 00 by mouth 3 l (three) times a day. Crush pill and mix 3-5 oz of water to form slurry sucralfate 2023-0 2023- No 1g Q.[id number] Take 1 Methodi (CARAFATE) 05-04- [id number] tablet (1 st 1 gram 00:00: 00:00 3D g total) Hospit a tablet 00 :00 by mouth 3 l (three) times a day. Crush pill and mix 3-5 oz of water to form slurry sucralfate 2023-0 2023- No 1g Q.[id number] Take 1 Methodi (CARAFATE) 05-04 [id number] tablet (1 st 1 gram 00:00: 00:00 3D g total) Hospit a tablet 00 :00 by mouth 3 l (three) times a day. Crush pill and mix 3-5 oz of water to form slurry sucralfate 2023-0 2023- No 1g Q.[id number] Take 1 Methodi (CARAFATE) 05-04 [id number] tablet (1 st 1 gram 00:00: 00:00 3D g total) Hospit a tablet 00 :00 by mouth 3 l (three) times a day. Crush pill and mix 3-5 oz of water to form slurry levalbutero 2023-0 2023- No .63mg Q4H Take 3 mL Methodi l (XOPENEX) 3-27 04-23 (0.[address] 0.63 mg/3 10:44: 00:00 total) by Ho spita mL 41 :00 nebulizati l nebulizer on every 4 solution (four) hours as needed for wheezing. levalbutero 2023-0 2023- No .63mg Q4H Take 3 mL [facility] (XOPENEX) 3-27 04-23 (0.[address] 0.63 mg/3 10:44: 00:00 total) by [facility] mL 41 :00 nebulizati l nebulizer on every 4 solution (four) hours as needed for wheezing. levalbutero 2023-0 2023- No .63mg Q4H Take 3 mL [facility] (XOPENEX) -27 04-23 (0.[address] 0.63 mg/3 10:44: 00:00 total) by [facility] mL 41 :00 nebulizati l nebulizer on every 4 solution (four) hours as needed for wheezing. levalbutero 2022-2022- No .63mg Q4H Take 3 mL [facility] (XOPENEX) 3-23 03-23 (0.[address] 0.63 mg/3 10:44: 00:00 total) by [facility] mL 41 :00 nebulizati l nebulizer on every 4 solution (four) hours as needed for wheezing. levalbutero 2022-2022- No [id number] .63mg Q4H Take 3 mL [facility] (XOPENEX) 3-23 04-23 (0.[address] 0.63 mg/3 00:00: 04:59 total) by [facility] mL 00 :00 nebulizati l nebulizer on every 4 solution (four) hours as needed for wheezing for up to 30 days. docusate 2022-2022- No 100mg Q.5D Take 1 Metho di sodium 3-28 05-[address] (COLACE) 00:00: 04:59 (100 mg Hospi ta 100 MG 00 :00 total) by l capsule mouth 2 (two) times a day for 30 days. ondansetron 2022- No 4mg Q8H Take 1 Met hodi ODT -28 05-23 tablet (4 st (ZOFRAN-ODT 00:00: 04:59 mg total) Hospita ) 4 MG 00 :00 by mouth l disintegrat every 8 ing tablet (eight) hours as needed for nausea or vomiting for up to 30 days. levalbutero 2022-2022- No [id number] .63mg Q4H Take 3 mL [facility] (XOPENEX) 3-23 04-23 (0.[address] 0.63 mg/3 00:00: 04:59 total) by [facility] mL 00 :00 nebulizati l nebulizer on every 4 solution (four) hours as needed for wheezing for up to 30 days. docusate 2022-0 2022- No 100mg Q.5D Take 1 Metho di sodium 3-23 04-[address] (COLACE) 00:00: 04:59 (100 mg Hospi ta 100 MG 00 :00 total) by l capsule mouth 2 (two) times a day for 30 days. ondansetron 2022- No 4mg Q8H Take 1 Met hodi ODT 3-23 04-23 tablet (4 st (ZOFRAN-ODT 00:00: 04:59 mg total) Hospita ) 4 MG 00 :00 by mouth l disintegrat every 8 ing tablet (eight) hours as needed for nausea or vomiting for up to 30 days. levalbutero No [id number] .63mg Q4H Take 3 mL [facility] (XOPENEX) 3- 04-23 (0.[address] 0.63 mg/3 00:00: 04:59 total) by [facility] mL 00 :00 nebulizati l nebulizer on every 4 solution (four) hours as needed for wheezing for up to 30 days. docusate 2022- No 100mg Q.5D Take 1 Metho di sodium -28 05-[address] (COLACE) 00:00: 04:59 (100 mg Hospi ta 100 MG 00 :00 total) by l capsule mouth 2 (two) times a day for 30 days. ondansetron 2022- No 4mg Q8H Take 1 Met hodi ODT 3-28 05-23 tablet (4 st (ZOFRAN-ODT 00:00: 04:59 mg total) Hospita ) 4 MG 00 :00 by mouth l disintegrat every 8 ing tablet (eight) hours as needed for nausea or vomiting for up to 30 days. levalbutero No [id number] .63mg Q4H Take 3 mL [facility] (XOPENEX) 3-28 05-23 (0.[address] 0.63 mg/3 00:00: 04:59 total) by [facility] mL 00 :00 nebulizati l nebulizer on every 4 solution (four) hours as needed for wheezing for up to 30 days. docusate 2022- No 100mg Q.5D Take 1 Metho di sodium 3-23 -[address] (COLACE) 00:00: 04:59 (100 mg Hospi ta 100 MG 00 :00 total) by l capsule mouth 2 (two) times a day for 30 days. ondansetron 2022-0 202- No 4mg Q8H Take 1 Met hodi ODT 04-27-23 tablet (4 st (ZOFRAN-ODT 00:00: 04:59 mg total) Hospita ) 4 MG 00 :00 by mouth l disintegrat every 8 ing tablet (eight) hours as needed for nausea or vomiting for up to 30 days. amoxicillin 2023-0 2023- No 500mg Q.[id number] Take 1 [facility] (AMOXIL) 04-27-30 [id number] capsule s t 500 MG 00:00: 00:00 3D (500 mg Hospita capsule 00 :00 total) by l mouth 3 (three) times a day for 5 days. chlorhexidi 2023-0 2023- No 15mL Q.5D Apply 15 M ethodi ne 04-27 03-[address] (PERIDEX) 00:00: 00:00 mouth or Hos [facility]chito 0.12 % 00 :00 throat 2 l solution (two) times a day for 10 days. amoxicillin 2023-0 2023- No 500mg Q.[id number] Take 1 [facility] (AMOXIL) 04-27-30 [id number] capsule s t 500 MG 00:00: 00:00 3D (500 mg Hospita capsule 00 :00 total) by l mouth 3 (three) times a day for 5 days. chlorhexidi 2023-0 2023- No 15mL Q.5D Apply 15 M ethodi ne 04-27 03-[address] (PERIDEX) 00:00: 00:00 mouth or Hos [facility] 0.12 % 00 :00 throat 2 l solution (two) times a day for 10 days. amoxicillin 2023-0 2023- No 500mg Q.[id number] Take 1 [facility] (AMOXIL) 04-27-30 [id number] capsule s t 500 MG 00:00: 00:00 3D (500 mg Hospita capsule 00 :00 total) by l mouth 3 (three) times a day for 5 days. chlorhexidi 2023-0 2023- No 15mL Q.5D Apply 15 M ethodi ne 04-27 03-[address] (PERIDEX) 00:00: 00:00 mouth or Hos [facility] 0.12 % 00 :00 throat 2 l solution (two) times a day for 10 days. amoxicillin 2022-0 2022- No 500mg Q.[id number] Take 1 [facility] (AMOXIL) 04-27-30 [id number] capsule s t 500 MG 00:00: 00:00 3D (500 mg Hospita capsule 00 :00 total) by l mouth 3 (three) times a day for 5 days. chlorhexidi 2022-0 2022- No 15mL Q.5D Apply 15 M ethodi ne 04-27 03-[address] (PERIDEX) 00:00: 00:00 mouth or Hos [facility] 0.12 % 00 :00 throat 2 l solution (two) times a day for 10 days. ibuprofen 2023-0 Yes [facility] (ADVIL) 600 3-21 st MG tablet 00:00: Hospita 00 l ibuprofen 2023-0 2023- No [facility] (ADVIL) 600 3-21 07-27 st MG tablet 00:00: 00:00 Hospita 00 :00 l ibuprofen 2023-0 2023- No [facility] (ADVIL) 600 3-21 07-27 st MG tablet 00:00: 00:00 Hospita 00 :00 l ibuprofen 2023-0 2023- No [facility] (ADVIL) 600 3-21 07-27 st MG tablet 00:00: 00:00 Hospita 00 :00 l acetaminoph 2023-0 2023- No Metho di en-codeine 3-25 06-18 st (TYLENOL 00:00: 00:00 Hospita WITH 00 :00 l CODEINE #3) 300-30 mg per tablet acetaminoph 2023-0 2023- No Metho di en-codeine 3-25 06-18 st (TYLENOL 00:00: 00:00 Hospita WITH 00 :00 l CODEINE #3) 300-30 mg per tablet acetaminoph 2023-0 2023- No Metho di en-codeine 3-25 06-18 st (TYLENOL 00:00: 00:00 Hospita WITH 00 :00 l CODEINE #3) 300-30 mg per tablet acetaminoph 2023-0 2023- No Metho di en-codeine -25 06-18 st (TYLENOL 00:00: 00:00 Hospita WITH 00 :00 l CODEINE #3) 300-30 mg per tablet predniSONE 2022-0 2022- No [id number] 10mg QD Take 1 [facility] (DELTASONE) 3-25 05-21 tablet (10 s t 10 mg 00:00: 04:59 mg total) Hospit a tablet 00 :00 by mouth l daily for 31 days. predniSONE 2023-0 202- No [id number] 10mg QD Take 1 [facility] (DELTASONE) 3-20 -21 tablet (10 s t 10 mg 00:00: 04:59 mg total) Hospit a tablet 00 :00 by mouth l daily for 31 days. predniSONE 3-0 202- No [id number] 10mg QD Take 1 [facility] (DELTASONE) -25 05-21 tablet (10 s t 10 mg 00:00: 04:59 mg total) Hospit a tablet 00 :00 by mouth l daily for 31 days. predniSONE 3-0 202- No [id number] 10mg QD Take 1 [facility] (DELTASONE) 04-24-21 tablet (10 s t 10 mg 00:00: 04:59 mg total) Hospit a tablet 00 :00 by mouth l daily for 31 days. Saccharomyc 2023-0 2023- No 250mg 1 capsule [facility]i es -18 06-18 ([address] boulardii 00:00: 00:00 total). [facility]osp [facility] (FLORASTOR) 00 :00 l 250 mg capsule fluconazole 2022-0 2022- No Metho di (DIFLUCAN) 04-18-18 st 100 MG 00:00: 00:00 Hospita tablet 00 :00 l Saccharomyc 2023-0 2023- No 250mg 1 capsule [facility] es -18 06-18 ([address] boulardii 00:00: 00:00 total). [facility] (FLORASTOR) 00 :00 l 250 mg capsule fluconazole 3-0 2022- No Metho di (DIFLUCAN) 04-18-18 st 100 MG 00:00: 00:00 Hospita tablet 00 :00 l Saccharomyc 2023-0 2023- No 250mg 1 capsule Methodi es 3-18 06-18 ([address] boulardii 00:00: 00:00 total). [facility]osp [facility] (FLORASTOR) 00 :00 l 250 mg capsule fluconazole No Metho di (DIFLUCAN) 04-18 st 100 MG 00:00: 00:00 Hospita tablet 00 :00 l Saccharomyc 2022- No 250mg 1 capsule Methodi es 04-18 ([address] boulardii 00:00: 00:00 total). [facility]osp [facility] (FLORASTOR) 00 :00 l 250 mg capsule fluconazole No Metho di (DIFLUCAN) 04-18 st 100 MG 00:00: 00:00 Hospita tablet 00 :00 l azithromyci 2022- No [id number] 250mg QD Take 1 [facility] n -02 05-[address] (Zithromax) 00:00: 00:00 (250 mg Ho sp[facility] 250 MG 00 :00 total) by l tablet mouth daily for 89 days. Please take 1 Tab Sunday azithromyci 2022- No [id number] 250mg QD Take 1 Methodi n -02 05-[address] (Zithromax) 00:00: 00:00 (250 mg [facility]ita 250 MG 00 :00 total) by l tablet mouth daily for 89 days. Please take 1 Tab Sunday azithromyci 2022- No [id number] 250mg QD Take 1 Methodi n 2-02 05-[address] (Zithromax) 00:00: 00:00 (250 mg Ho spita 250 MG 00 :00 total) by l tablet mouth daily for 89 days. Please take 1 Tab Sunday azithromyci 2022- No [id number] 250mg QD Take 1 Methodi n 2-02 05-[address] (Zithromax) 00:00: 00:00 (250 mg Ho spita 250 MG 00 :00 total) by l tablet mouth daily for 89 days. Please take 1 Tab Sunday predniSONE 2022- No Take 3 Meth jill (DELTASONE) 04-03 03-[address] 5 mg tablet 00:00: 05:59 (15 mg Hos panchito 00 :00 total) by l mouth daily for 2 days, THEN 2 tablets (10 mg total) daily for 3 days, THEN 1 tablet (5 mg total) daily for 3 days. predniSONE No Take 3 Meth jill (DELTASONE) 227 -[address] 5 mg tablet 00:00: 05:59 (15 mg Hos panchito 00 :00 total) by l mouth daily for 2 days, THEN 2 tablets (10 mg total) daily for 3 days, THEN 1 tablet (5 mg total) daily for 3 days. predniSONE No Take 3 Meth jill (DELTASONE) 2-[address] 5 mg tablet 00:00: 05:59 [...] total) daily for 3 days. HYDROcodone 1{tbl} Q.[id number] Take 1 [facility] -acetaminop 2-02 04- [id number] tablet by st hen (Captio) 12:18: 00:00 3D mouth 3 Ho spita 5-325 mg 39 :00 (three) l per tablet times a day .acute pain. HYDROcodone 1{tbl} Q.[id number] Take 1 [facility] -acetaminop 2-02 04- [id number] tablet by st hen (Captio) 12:18: 00:00 3D mouth 3 Ho spita 5-325 mg 39 :00 (three) l per tablet times a day .acute pain. HYDROcodone 1{tbl} Q.[id number] Take 1 [facility] -acetaminop 2-02 04- [id number] tablet by [facility] (Captio) 12:18: 00:00 3D mouth 3 Ho spita 5-325 mg 39 :00 (three) l per tablet times a day .acute pain. [place]DRO[place]one 2022-20[place]- [place] [id number] 1{tbl} Q.30358434 Take 1 [facility] -acetaminop 2-26 - [id number] tablet by [facility] (ObsEvaIA) 12:18: 00:00 3D mouth 3 Ho spita 5-325 mg 39 :00 (three) l per tablet times a day .acute pain. HYDROcodone 2022- Yes [id number] 1{tbl} Q6H Take 1 M ethodi -acetaminop 2-26 tablet by [facility] (ObsEvaIA) 00:00: mouth Hospi ta 10-325 mg 00 every 6 l per tablet (six) hours as needed for severe pain .acute pain. Max Daily Amount: 4 tablets HYDROcodone 2022-0 2022- No [id number] 1{tbl} Q6H Take 1 [facility] -acetaminop 2-30 08- tablet by [facility] (ObsEvaIA) 00:00: 00:00 mouth Hosp nuha 10-325 mg 00 :00 every 6 l per tablet (six) hours as needed for severe pain .acute pain. Max Daily Amount: 4 tablets HYDROcodone 2022-0 2022- No [id number] 1{tbl} Q6H Take 1 [facility] -acetaminop 2-30 08- tablet by [facility]) 00:00: 00:00 mouth Hosp nuah 10-325 mg 00 :00 every 6 l per tablet (six) hours as needed for severe pain .acute pain. Max Daily Amount: 4 tablets HYDROcodone 2022-0 2022- No [id number] 1{tbl} Q6H Take 1 [facility] -acetaminop 2-26 -27 tablet by [facility] (Captio) 00:00: 00:00 mouth Hosp nuha 10-325 mg 00 :00 every 6 l per tablet (six) hours as needed for severe pain .acute pain. Max Daily Amount: 4 tablets metroNIDAZO 2022-0 2022- No 500mg Q.[id number] Take 1 [facility] LE (FLAGYL) - 03-[id number] 500 MG 00:00: 05:59 3D (500 mg Hospita tablet 00 :00 total) by l mouth 3 (three) times a day for 5 days. tetracyclin 2023-0 2023- No 500mg Q.25D Take 1 M ethodi e (SUMYCIN) 04-02-[address] 500 MG 00:00: 05:59 (500 mg Hospita capsule 00 :00 total) by l mouth 4 (four) times a day for 5 days. metroNIDAZO 2023-0 2023- No 500mg Q.[id number] Take 1 [facility] LE (FLAGYL) 04-02- [id number] tablet st 500 MG 00:00: 05:59 3D (500 mg Hospita tablet 00 :00 total) by l mouth 3 (three) times a day for 5 days. tetracyclin 2023-0 2023- No 500mg Q.25D Take 1 M ethodi e (SUMYCIN) 04-02-[address] 500 MG 00:00: 05:59 (500 mg Hospita capsule 00 :00 total) by l mouth 4 (four) times a day for 5 days. metroNIDAZO 2023-0 2023- No 500mg Q.[id number] Take 1 [facility] LE (FLAGYL) 04-02- [id number] tablet st 500 MG 00:00: 05:59 3D (500 mg Hospita tablet 00 :00 total) by l mouth 3 (three) times a day for 5 days. tetracyclin 2023-0 2023- No 500mg Q.25D Take 1 M ethodi e (SUMYCIN) 04-02-[address] 500 MG 00:00: 05:59 (500 mg Hospita capsule 00 :00 total) by l mouth 4 (four) times a day for 5 days. metroNIDAZO 2023-0 2023- No 500mg Q.[id number] Take 1 [facility] (FLAGYL) 04-02-[id number] 500 MG 00:00: 05:59 3D (500 mg Hospita tablet 00 :00 total) by l mouth 3 (three) times a day for 5 days. tetracyclin 2023-0 2023- No 500mg Q.25D Take 1 M ethodi e (SUMYCIN) 2-26 03-[address] 500 MG 00:00: 05:59 (500 mg Hospita capsule 00 :00 total) by l mouth 4 (four) times a day for 5 days. roflumilast 2022- No [id number] 250ug QD Take 1 [facility] (Daliresp) 04-[address] 250 mcg 00:00: 00:00 (250 mcg Hospi ta tablet 00 :00 total) by l mouth daily for 30 days. roflumilast 2022- No [id number] 250ug QD Take 1 [facility] (Daliresp) 04-[address] 250 mcg 00:00: 00:00 (250 mcg Hospi ta tablet 00 :00 total) by l mouth daily for 30 days. roflumilast 2022- No [id number] 250ug QD Take 1 [facility] (Daliresp) 04-[address] 250 mcg 00:00: 00:00 (250 mcg Hospi ta tablet 00 :00 total) by l mouth daily for 30 days. roflumilast 2022- No [id number] 250ug QD Take 1 [facility] (Daliresp) 04-[address] 250 mcg 00:00: 00:00 (250 mcg Hospi ta tablet 00 :00 total) by l mouth daily for 30 days. dexamethaso No 10mg 10 mg, Uni vers ne [...] l tablet total) by mouth daily. cholecalcif 3-0 2023- No 1000U QD Take 1 Me thodi usha, 03-[address] vitamin D3, 10:48: 00:00 (1,000 Hos panchito 1,000 unit 09 :00 Units l tablet total) by mouth daily. cholecalcif 2023-0 2023- No 1000U QD Take 1 Me thodi usha, 03-[address] vitamin D3, 10:48: 00:00 (1,000 Hos panchito 1,000 unit 09 :00 Units l tablet total) by mouth daily. cholecalcif 3-0 2023- No 1000U QD Take 1 Me thodi usha, 03-[address] vitamin D3, 10:48: 00:00 (1,000 Hos panchito 1,000 unit 09 :00 Units l tablet total) by mouth daily. pantoprazol 2023-0 Yes 40mg Q.5D Take 1 Meth jill e 03-16 tablet (40 st (PROTONIX) 00:00: mg total) Ho spita 40 MG EC 00 by mouth 2 l tablet (two) times a day. Take 30-60 min prior to meals pantoprazol 3-0 2023- No 40mg Q.5D Take 1 Met hodi e 03-16-25 tablet (40 st (PROTONIX) 00:00: 00:00 mg total) H ospita 40 MG EC 00 :00 by mouth 2 l tablet (two) times a day. Take 30-60 min prior to meals pantoprazol 3-0 2023- No 40mg Q.5D Take 1 Met hodi e 03-16-25 tablet (40 st (PROTONIX) 00:00: 00:00 mg total) H ospita 40 MG EC 00 :00 by mouth 2 l tablet (two) times a day. Take 30-60 min prior to meals pantoprazol 2023-0 2023- No 40mg Q.5D Take 1 Met hodi e 03-16-25 tablet (40 st (PROTONIX) 00:00: 00:00 mg total) H ospita 40 MG EC 00 :00 by mouth 2 l tablet (two) times a day. Take 30-60 min prior to meals HYDROcodone 3-0 2023- No 1{tbl} 1 tablet, [facility] -acetaminop 03-04 [...] 03/04/22 at 0500, STAT iopamidol 2022- No [id number] 75mL 75 mL, Univers (ISOVUE 03-04 Intravenou [...] it y of succ 00:00: s, Q6H, [place] (SOLU-MEDRO 00 First dose Me dical L) [...] 03/01/22 at 1445, STAT levoFLOXaci 2022-0 Yes [id number] 750mg Take 1 Univers n 750 mg 1-25 tablet by ity of tablet 00:00: mouth [place] 00 every 24 Medical ([facility] ur) hours. levoFLOXaci 2022-0 Yes [id number] 750mg Take 1 Univers n 750 mg 1-25 tablet by ity of tablet 00:00: mouth [place] 00 every 24 Medical (tw[facility] ur) hours. levoFLOXaci 2022-0 Yes [id number] 750mg Take 1 Univers n 750 mg 1-25 tablet by ity of tablet 00:00: mouth [place] 00 every 24 Medical (tw[facility] ur) hours. levoFLOXaci 2022-0 Yes [id number] 750mg Take 1 Univers n 750 mg 1-25 tablet by ity of tablet 00:00: mouth [place] 00 every 24 Medical (tw[facility] ur) hours. levoFLOXaci 3-0 Yes [id number] 750mg Take 1 Univers n 750 mg 1-25 tablet by ity of tablet 00:00: mouth [place] 00 every 24 Medical (tw[facility] ur) hours. levoFLOXaci 3-0 Yes [id number] 750mg Take 1 Univers n 750 mg 1-25 tablet by ity of tablet 00:00: mouth [place] 00 every 24 Medical (tw[facility] ur) hours. levoFLOXaci 3-0 Yes [id number] 750mg Take 1 Univers n 750 mg 1-25 tablet by ity of tablet 00:00: mouth [place] 00 every 24 Medical ([facility] ur) hours. levoFLOXaci 2023-0 Yes [id number] 750mg Take 1 Univers n 750 mg 1-25 tablet by ity of tablet 00:00: mouth [place] 00 every 24 Medical (twenty[facility] ur) hours. levoFLOXaci 2023-0 Yes [id number] 750mg Take 1 Univers n 750 mg 1-25 tablet by ity of tablet 00:00: mouth [place] 00 every 24 Medical (twenty[facility] ur) hours. levoFLOXaci 2023-0 Yes [id number] 750mg Take 1 Univers n 750 mg 1-25 tablet by ity of tablet 00:00: mouth [place] 00 every 24 Medical (twenty[facility] ur) hours. levoFLOXaci 2023-0 Yes [id number] 750mg Take 1 Univers n 750 mg 1-25 tablet by ity of tablet 00:00: mouth [place] 00 every 24 Medical (twenty[facility] Branch ur) hours. levoFLOXaci 2023-0 Yes [id number] 750mg Take 1 Univers n 750 mg 1-25 tablet by ity of tablet 00:00: mouth [place] 00 every 24 Medical (tw[facility] ur) hours. levoFLOXaci 2023-0 Yes [id number] 750mg Take 1 Univers n 750 mg 1-25 tablet by ity of tablet 00:00: mouth [place] 00 every 24 Medical (tw[facility] ur) hours. levoFLOXaci 2023-0 Yes [id number] 750mg Take 1 Univers n 750 mg 1-25 tablet by ity of tablet 00:00: mouth [place] 00 every 24 Medical (tw[facility] ur) hours. levoFLOXaci 2023-0 Yes [id number] 750mg Take 1 Univers n 750 mg 1-25 tablet by ity of tablet 00:00: mouth [place] 00 every 24 Medical (tw[facility] ur) hours. levoFLOXaci 2023-0 Yes [id number] 750mg Take 1 Univers n 750 mg 1-25 tablet by ity of tablet 00:00: mouth [place] 00 every 24 Medical (tw[facility] ur) hours. levoFLOXaci 2023-0 Yes [id number] 750mg Take 1 Univers n 750 mg 1-25 tablet by ity of tablet 00:00: mouth [place] 00 every 24 Medical (tw[facility] ur) hours. levoFLOXaci 2023-0 Yes [id number] 750mg Take 1 Univers n 750 mg 1-25 tablet by ity of tablet 00:00: mouth [place] 00 every 24 Medical (tw[facility] Branch ur) hours. levoFLOXaci 2023-0 Yes [id number] 750mg Take 1 Univers n 750 mg 1-25 tablet by ity of tablet 00:00: mouth [place] 00 every 24 Medical ([facility] ur) hours. levoFLOXaci 2023-0 Yes [id number] 750mg Take 1 Univers n 750 mg 1-25 tablet by ity of tablet 00:00: [facility] 00 every 24 Medical ([facility] ur) hours. levoFLOXaci 2023-0 Yes [id number] 750mg Take 1 Univers n 750 mg 1-25 tablet by ity of tablet 00:00: [facility] 00 every 24 Medical ([facility] ur) hours. levoFLOXaci 2023-0 2023- No Metho di n 03-01 st (LEVAQUIN) 00:00: 00:00 Hospit a 750 MG 00 :00 l tablet levoFLOXaci 3-0 2023- No Metho di n 03-01 st (LEVAQUIN) 00:00: 00:00 Hospit a 750 MG 00 :00 l tablet levoFLOXaci 2023-0 2023- No Metho di n 03-01 st (LEVAQUIN) 00:00: 00:00 Hospit a 750 MG 00 :00 l tablet levoFLOXaci 3-0 2023- No Metho di n 03-01 st (LEVAQUIN) 00:00: 00:00 Hospit a 750 MG 00 :00 l tablet Alcohol 2021-02- No BANDAGES Metho di Prep Pads 03-13 st pads, 00:00: 00:00 Hospita medicated 00 :00 l Alcohol 2021-2022- No BANDAGES Metho di Prep Pads - st pads, 00:00: 00:00 Hospita medicated 00 :00 l Alcohol 2021-2022- No BANDAGES Metho di Prep Pads - st pads, 00:00: 00:00 Hospita medicated 00 :00 l Alcohol 2021-2022- No BANDAGES Metho di Prep Pads - st pads, 00:00: 00:00 Hospita medicated 00 :00 l tiotropium 2021-02- No [id number] 1{capsu QD Place 1 [facility]i (Spiriva 205-04 le} puff ( st with 00:00: 00:00 capsule Hospita HandiHaler) 00 :00 total) l 18 mcg per into inhalation inhaler capsule and inhale once daily. tiotropium 2021-02- No [id number] 1{capsu QD Place 1 [facility] (Spiriva 2-19 03-30 le} puff (1 st with 00:00: 00:00 capsule Hospita HandiHaler) 00 :00 total) l 18 mcg per into inhalation inhaler capsule and inhale once daily. tiotropium 2021-02- No [id number] 1{capsu QD Place 1 [facility] (Spiriva 2-19 03-30 le} puff (1 st with 00:00: 00:00 capsule [facility]ospita HandiHaler) 00 :00 total) l 18 mcg per into inhalation inhaler capsule and inhale once daily. tiotropium 2021-02- No [id number] 1{capsu QD Place 1 [facility] (Spiriva 2-19 03-30 le} puff (1 st with 00:00: 00:00 capsule Hospita HandiHaler) 00 :00 total) l 18 mcg per into inhalation inhaler capsule and inhale once daily. tiotropium 2021-02- No [id number] 1{capsu QD Place 1 [facility] (Spiriva 2-19 12-19 le} puff (1 st with 00:00: 00:00 capsule Hospita HandiHaler) 00 :00 total) l 18 mcg per into inhalation inhaler capsule and inhale once daily. tiotropium 2021-02- No [id number] 1{capsu QD Place 1 [facility] (Spiriva 2-19 12-19 le} puff (1 st with 00:00: 00:00 capsule Hospita HandiHaler) 00 :00 total) l 18 mcg per into inhalation inhaler capsule and inhale once daily. tiotropium 2021-02- No [id number] 1{capsu QD Place 1 [facility] (Spiriva 2-19 12-19 le} puff (1 st with 00:00: 00:00 capsule Hospita HandiHaler) 00 :00 total) l 18 mcg per into inhalation inhaler capsule and inhale once daily. tiotropium 2021-02- No [id number] 1{capsu QD Place 1 [facility] (Spiriva 2-19 12- le} puff (1 st with 00:00: 00:00 capsule Hospita HandiHaler) 00 :00 total) l 18 mcg per into inhalation inhaler capsule and inhale once daily. pen needle, 2021-02- No [id number] Use 1 [facility] diabetic 03-[address] (BD 00:00: 00:00 daily [facility]ospita Ultra-Fine 00 :00 l Elsie Pen Needle) 32 gauge x 5/32" needle teriparatid 2021-02- No [id number] 20ug QD Inject Methodi e (Forteo) 03-[address] 20 mcg/dose 00:00: 00:00 (20 mcg Ho spita (600mcg/2.4 00 :00 total) l mL) under the injection skin daily. pen needle, 2021-02- No [id number] Use 1 [facility]i diabetic 03-[address] (BD 00:00: 00:00 daily [facility] Ultra-Fine 00 :00 l Elsie Pen Needle) 32 gauge x 5/32" needle teriparatid 2021-02- No [id number] 20ug QD Inject Methodi e ([place]) 03-[address] 20 mcg/dose 00:00: 00:00 (20 mcg Ho spita (600mcg/2.4 00 :00 total) l mL) under the injection skin daily. pen needle, 2021-02- No [id number] Use 1 [facility] diabetic 03-[address] (BD 00:00: 00:00 daily [facility]-Fine 00 :00 l Elsie Pen Needle) 32 gauge x 5/32" needle teriparatid 2021-02- No [id number] 20ug QD Inject Methodi e ([place]) 03-[address] 20 mcg/dose 00:00: 00:00 (20 mcg Ho spita (600mcg/2.4 00 :00 total) l mL) under the injection skin daily. pen needle, 2021-02- No [id number] Use 1 [facility] diabetic 03-[address] (BD 00:00: 00:00 daily [facility]-Fine 00 :00 l Elsie Pen Needle) 32 gauge x 5/32" needle teriparatid 2021-02- No [id number] 20ug QD Inject Methodi e ([place]) 2 02-[address] 20 mcg/dose 00:00: 00:00 (20 mcg Ho spita (600mcg/2.4 00 :00 total) l mL) under the injection skin daily. fluticasone 2021-02 Yes 1{puff} Inhale 1 Univers propion-tavia 1-25 Puff every it y of meteroL 11:52: 12 [place] [address] 32 (twelve) Medical mcg/dose hours. Branch inhalation disk flecainide 2021-02 Yes 50mg Take 50 mg U nivers acetate 1-25 by mouth ity of (FLECAINIDE 11:52: every [place] ORAL) morning. Medical Branch metoprolol 2021-02 Yes 25mg Take 25 mg U nivers tartrate 25 1-25 by mouth ity of mg tablet 11:52: in the [place] [address] morning. Medical Branch gabapentin 2021-02 Yes 400mg Take 400 Un jb 400 mg 1-25 mg by ity of capsule 11:52: mouth 3 [place] [address] (three) Medical times Branch daily. pantoprazol 2021-02 Yes 40mg Take 40 mg Univers e 40 mg EC 1-25 by mouth ity o f tablet 11:52: daily. [place] [address] Medical Branch aspirin 81 2021-02 Yes 81mg Take 81 mg U nivers mg chewable 1-25 by mouth ity of tablet 11:52: daily. [place] [address] Medical Branch HYDROcodone 2021-02 Yes 1{tbl} Take 1 Un jb -acetaminop 1-25 tablet by ity of hen 5-325 11:52: mouth in [facility] s mg tablet 32 the Medical morning Branch and 1 tablet at noon and 1 tablet in the evening. fluticasone 2021-02 Yes 1{puff} Inhale 1 [facility] propion-tavia 1-25 Puff every it y of meteroL 11:52: 12 [place] 250-50 32 (twelve) Medical mcg/dose hours. Branch inhalation disk flecainide 2021-02 Yes 50mg Take 50 mg U nivers acetate 1-25 by mouth ity of (FLECAINIDE 11:52: every [place] ORAL) 32 morning. Medical Branch metoprolol 2021-02 Yes 25mg Take 25 mg U nivers tartrate 25 1-25 by mouth ity of mg tablet 11:52: in the [place] [address] morning. Medical Branch gabapentin 2021-02 Yes 400mg Take 400 Un jb 400 mg 1-25 mg by ity of capsule 11:52: mouth 3 [place] [address] (three) Medical times [place] daily. pantoprazol 2021-02 Yes 40mg Take 40 mg Univers e 40 mg EC 1-25 by mouth ity o f tablet 11:52: daily. [address] Branch aspirin 81 2021-02 Yes 81mg Take 81 mg U nivers mg chewable 1-25 by mouth ity of tablet 11:52: daily. [place] [address] Medical Branch HYDROcodone 2021-02 Yes 1{tbl} Take 1 Un jb -acetaminop 1-25 tablet by ity of hen 5-325 11:52: mouth in [facility] s mg tablet 32 the Medical morning Branch and 1 tablet at noon and 1 tablet in the evening. fluticasone 2021-02 Yes 1{puff} Inhale 1 [facility] propion-tavia 1-25 Puff every it y of meteroL 11:52: 12 [place] [address] (twelve) Medical mcg/dose hours. Branch inhalation disk flecainide 2021-02 Yes 50mg Take 50 mg U nivers acetate 1-25 by mouth ity of (FLECAINIDE 11:52: every [place] ORAL) 32 morning. Medical Branch metoprolol 2021-02 Yes 25mg Take 25 mg U nivers tartrate 25 1-25 by mouth ity of mg tablet 11:52: in the [place] [address] morning. Medical Branch gabapentin 2021-02 Yes 400mg Take 400 Un jb 400 mg 1-25 mg by ity of capsule 11:52: mouth 3 [place] [address] (three) Medical times [place] daily. pantoprazol 2021-02 Yes 40mg Take 40 mg [facility] e 40 mg EC 1-25 by mouth ity o f tablet 11:52: daily. [address] aspirin 81 2021-02 Yes 81mg Take 81 mg U nivers mg chewable 1-25 by mouth ity of tablet 11:52: daily. [address] Branch HYDROcodone 2021-02 Yes 1{tbl} Take 1 Un jb -acetaminop 1-25 tablet by ity of hen 5-325 11:52: [place] tablet 32 the Medical morning Branch and 1 tablet at noon and 1 tablet in the evening. fluticasone 2021-02 Yes 1{puff} Inhale 1 [facility] propion-tavia 1-25 Puff every it y of meteroL 11:52: 12 [place] 250-50 (twelve) Medical mcg/dose hours. Branch inhalation disk flecainide 2021-02 Yes 50mg Take 50 mg U nivers acetate 1-25 by mouth ity of (FLECAINIDE 11:52: every [place] ORAL) 32 morning. Medical Branch metoprolol 2021-02 Yes 25mg Take 25 mg U nivers tartrate 25 1-25 by mouth ity of mg tablet 11:52: in the [place] [address] morning. Medical Branch gabapentin 2021-02 Yes 400mg Take 400 Un jb 400 mg 1-25 mg by ity of capsule 11:52: mouth 3 [place] [address] (three) Medical times Branch daily. pantoprazol 2021-02 Yes 40mg Take 40 mg [facility] e 40 mg EC 1-25 by mouth ity o f tablet 11:52: daily. [place] [address] Medical Branch aspirin 81 2021-02 Yes 81mg Take 81 mg U nivers mg chewable 1-25 by mouth ity of tablet 11:52: daily. [place] [address] Medical Branch HYDROcodone 2021-02 Yes 1{tbl} Take 1 Un jb -acetaminop 1-25 tablet by ity of hen 5-325 11:52: mouth [place] mg tablet 32 the Medical morning Branch and 1 tablet at noon and 1 tablet in the evening. fluticasone 2021-02 Yes 1{puff} Inhale 1 [facility] propion-tavia 1-25 Puff every it y of meteroL 11:52: 12 [place] [address] (twelve) Medical mcg/dose hours. Branch inhalation disk flecainide 2021-02 Yes 50mg Take 50 mg U nivers acetate 1-25 by mouth ity of (FLECAINIDE 11:52: every [place] ORAL) 32 morning. Medical Branch metoprolol 2021-02 Yes 25mg Take 25 mg U nivers tartrate 25 1-25 by mouth ity of mg tablet 11:52: in the [place] [address] morning. Medical Branch gabapentin 2021-02 Yes 400mg Take 400 Un jb 400 mg 1-25 mg by ity of capsule 11:52: mouth 3 [place] [address] (three) Medical times Branch daily. pantoprazol 2021-02 Yes 40mg Take 40 mg [facility] e 40 mg EC 1-25 by mouth ity o f tablet 11:52: daily. [place] [address] Medical Branch aspirin 81 2021-02 Yes 81mg Take 81 mg U nivers mg chewable 1-25 by mouth ity of tablet 11:52: daily. [place] [address] Medical Branch HYDROcodone 2021-02 Yes 1{tbl} Take 1 Un jb -acetaminop 1-25 tablet by ity of hen 5-325 11:52: mouth [place] mg tablet 32 the Medical morning Branch and 1 tablet at noon and 1 tablet in the evening. fluticasone 2021-02 Yes 1{puff} Inhale 1 [facility] propion-tavia 1-25 Puff every it y of meteroL 11:52: 12 [place] [address] (twelve) Medical mcg/dose hours. Branch inhalation disk flecainide 2021-02 Yes 50mg Take 50 mg U nivers acetate 1-25 by mouth ity of (FLECAINIDE 11:52: every [place] ORAL) morning. Medical Branch metoprolol 2021-02 Yes 25mg Take 25 mg U nivers tartrate 25 1-25 by mouth ity of mg tablet 11:52: in the [place] [address] morning. Medical Branch gabapentin 2021-02 Yes 400mg Take 400 Un jb 400 mg 1-25 mg by ity of capsule 11:52: mouth 3 [place] [address] (three) Medical times Branch daily. pantoprazol 2021-02 Yes 40mg Take 40 mg [facility] e 40 mg EC 1-25 by mouth ity o f tablet 11:52: daily. [address] Branch aspirin 81 2021-02 Yes 81mg Take 81 mg U nivers mg chewable 1-25 by mouth ity of tablet 11:52: daily. [place] [address] Medical Branch HYDROcodone 2021-02 Yes 1{tbl} Take 1 Un jb -acetaminop 1-25 tablet by ity of hen 5-325 11:52: mouth [place] mg tablet 32 the Medical morning Branch and 1 tablet at noon and 1 tablet in the evening. fluticasone 2021-02 Yes 1{puff} Inhale 1 [facility] propion-tavia 1-25 Puff every it y of meteroL 11:52: 12 [place] 250-50 (twelve) Medical mcg/dose hours. Branch inhalation disk flecainide 2021-02 Yes 50mg Take 50 mg U nivers acetate 1-25 by mouth ity of (FLECAINIDE 11:52: every [place] ORAL) 32 morning. Medical Branch metoprolol 2021-02 Yes 25mg Take 25 mg U nivers tartrate 25 1-25 by mouth ity of mg tablet 11:52: in the [place] [address] morning. Medical Branch gabapentin 2021-02 Yes 400mg Take 400 Un jb 400 mg 1-25 mg by ity of capsule 11:52: mouth 3 [place] [address] (three) Medical times [place] daily. pantoprazol 2021-02 Yes 40mg Take 40 mg [facility] e 40 mg EC 1-25 by mouth ity o f tablet 11:52: daily. [place] [address] Medical Branch aspirin 81 2021-02 Yes 81mg Take 81 mg U nivers mg chewable 1-25 by mouth ity of tablet 11:52: daily. [place] [address] Medical Branch HYDROcodone 2021-02 Yes 1{tbl} Take 1 Un jb -acetaminop 1-25 tablet by ity of hen 5-325 11:52: mouth in [facility] s mg tablet 32 the Medical morning Branch and 1 tablet at noon and 1 tablet in the evening. fluticasone 2021-02 Yes 1{puff} Inhale 1 [facility] propion-tavia 1-25 Puff every it y of meteroL 11:52: 12 [place] 250-[facility] (twelve) Medical mcg/dose hours. Branch inhalation disk flecainide 2021-02 Yes 50mg Take 50 mg U nivers acetate 1-25 by mouth ity of (FLECAINIDE 11:52: every [place] ORAL) 32 morning. Medical Branch metoprolol 2021-02 Yes 25mg Take 25 mg U nivers tartrate 25 1-25 by mouth ity of mg tablet 11:52: in the [place] [address] morning. Medical Branch gabapentin 2021-02 Yes 400mg Take 400 Un jb 400 mg 1-25 mg by ity of capsule 11:52: mouth 3 [place] [address] (three) Medical times Branch daily. pantoprazol 2021-02 Yes 40mg Take 40 mg [facility] e 40 mg EC 1-25 by mouth ity o f tablet 11:52: daily. [place] [address] Medical Branch aspirin 81 2021-02 Yes 81mg Take 81 mg U nivers mg chewable 1-25 by mouth ity of tablet 11:52: daily. [place] [address] Medical Branch HYDROcodone 2021-02 Yes 1{tbl} Take 1 Un jb -acetaminop 1-25 tablet by ity of hen 5-325 11:52: mouth [place] mg tablet 32 the Medical morning Branch and 1 tablet at noon and 1 tablet in the evening. fluticasone 2021-02 Yes 1{puff} Inhale 1 [facility] propion-tavia 1-25 Puff every it y of meteroL 11:52: 12 [place] [address] (twelve) Medical mcg/dose hours. Branch inhalation disk flecainide 2021-02 Yes 50mg Take 50 mg U nivers acetate 1-25 by mouth ity of (FLECAINIDE 11:52: every [place] ORAL) morning. Medical Branch metoprolol 2021-02 Yes 25mg Take 25 mg U nivers tartrate 25 1-25 by mouth ity of mg tablet 11:52: in the [place] [address] morning. Medical Branch gabapentin 2021-02 Yes 400mg Take 400 Un jb 400 mg 1-25 mg by ity of capsule 11:52: mouth 3 [place] [address] (three) Medical times Branch daily. pantoprazol 2021-02 Yes 40mg Take 40 mg [facility] e 40 mg EC 1-25 by mouth ity o f tablet 11:52: daily. [place] [address] Medical Branch aspirin 81 2021-02 Yes 81mg Take 81 mg U nivers mg chewable 1-25 by mouth ity of tablet 11:52: daily. [place] [address] Medical Branch HYDROcodone 2021-02 Yes 1{tbl} Take 1 Un jb -acetaminop 1-25 tablet by ity of hen 5-325 11:52: mouth [place] mg tablet 32 the Medical morning Branch and 1 tablet at noon and 1 tablet in the evening. fluticasone 2021-02 Yes 1{puff} Inhale 1 [facility] propion-tavia 1-25 Puff every it y of meteroL 11:52: 12 [place] [address] (twelve) Medical mcg/dose hours. Branch inhalation disk flecainide 2021-02 Yes 50mg Take 50 mg U nivers acetate 1-25 by mouth ity of (FLECAINIDE 11:52: every [place] ORAL) 32 morning. Medical Branch metoprolol 2021-02 Yes 25mg Take 25 mg U nivers tartrate 25 1-25 by mouth ity of mg tablet 11:52: in the [place] [address] morning. Medical Branch gabapentin 2021-02 Yes 400mg Take 400 Un jb 400 mg 1-25 mg by ity of capsule 11:52: mouth 3 [place] [address] (three) Medical times Branch daily. pantoprazol 2021-02 Yes 40mg Take 40 mg [facility] e 40 mg EC 1-25 by mouth ity o f tablet 11:52: daily. [place] [address] Medical Branch aspirin 81 2021-02 Yes 81mg Take 81 mg U nivers mg chewable 1-25 by mouth ity of tablet 11:52: daily. [place] [address] Medical Branch HYDROcodone 2021-02 Yes 1{tbl} Take 1 Un jb -acetaminop 1-25 tablet by ity of hen 5-325 11:52: mouth in [facility] s mg tablet 32 the Medical morning Branch and 1 tablet at noon and 1 tablet in the evening. fluticasone 2021-02 Yes 1{puff} Inhale 1 [facility] propion-tavia 1-25 Puff every it y of meteroL 11:52: 12 [place] 250-[facility] (twelve) Medical mcg/dose hours. Branch inhalation disk flecainide 2021-02 Yes 50mg Take 50 mg U nivers acetate 1-25 by mouth ity of (FLECAINIDE 11:52: every [place] ORAL) morning. Medical Branch metoprolol 2021-02 Yes 25mg Take 25 mg U nivers tartrate 25 1-25 by mouth ity of mg tablet 11:52: in the [place] [address] morning. Medical Branch gabapentin 2021-02 Yes 400mg Take 400 Un jb 400 mg 1-25 mg by ity of capsule 11:52: mouth 3 [place] [address] (three) Medical times Branch daily. pantoprazol 2021-02 Yes 40mg Take 40 mg [facility] e 40 mg EC 1-25 by mouth ity o f tablet 11:52: daily. [place] [address] Medical Branch aspirin 81 2021-02 Yes 81mg Take 81 mg U nivers mg chewable 1-25 by mouth ity of tablet 11:52: daily. [place] [address] Medical Branch HYDROcodone 2021-02 Yes 1{tbl} Take 1 Un jb -acetaminop 1-25 tablet by ity of hen 5-325 11:52: mouth [place] mg tablet 32 the Medical morning Branch and 1 tablet at noon and 1 tablet in the evening. fluticasone 2021-02 Yes 1{puff} Inhale 1 [facility] propion-tavia 1-25 Puff every it y of meteroL 11:52: 12 [place] [address] (twelve) Medical mcg/dose hours. Branch inhalation disk flecainide 2021-02 Yes 50mg Take 50 mg U nivers acetate 1-25 by mouth ity of (FLECAINIDE 11:52: every [place] ORAL) morning. Medical Branch metoprolol 2021-02 Yes 25mg Take 25 mg U nivers tartrate 25 1-25 by mouth ity of mg tablet 11:52: in the [place] [address] morning. Medical Branch gabapentin 2021-02 Yes 400mg Take 400 Un jb 400 mg 1-25 mg by ity of capsule 11:52: mouth 3 [place] [address] (three) Medical times Branch daily. pantoprazol 2021-02 Yes 40mg Take 40 mg [facility] e 40 mg EC 1-25 by mouth ity o f tablet 11:52: daily. [address] Branch aspirin 81 2021-02 Yes 81mg Take 81 mg U nivers mg chewable 1-25 by mouth ity of tablet 11:52: daily. [place] [address] Medical Branch HYDROcodone 2021-02 Yes 1{tbl} Take 1 Un jb -acetaminop 1-25 tablet by ity of hen 5-325 11:52: mouth [place] mg tablet 32 the Medical morning Branch and 1 tablet at noon and 1 tablet in the evening. fluticasone 2021-02 Yes 1{puff} Inhale 1 [facility] propion-tavia 1-25 Puff every it y of meteroL 11:52: 12 [place] [address] (twelve) Medical mcg/dose hours. Branch inhalation disk flecainide 2021-02 Yes 50mg Take 50 mg U nivers acetate 1-25 by mouth ity of (FLECAINIDE 11:52: every [place] ORAL) 32 morning. Medical Branch metoprolol 2021-02 Yes 25mg Take 25 mg U nivers tartrate 25 1-25 by mouth ity of mg tablet 11:52: in the [place] [address] morning. Medical Branch gabapentin 2021-02 Yes 400mg Take 400 Un jb 400 mg 1-25 mg by ity of capsule 11:52: mouth 3 [place] [address] (three) Medical times Branch daily. pantoprazol 2021-02 Yes 40mg Take 40 mg [facility] e 40 mg EC 1-25 by mouth ity o f tablet 11:52: daily. [place] [address] Medical Branch aspirin 81 2021-02 Yes 81mg Take 81 mg U nivers mg chewable 1-25 by mouth ity of tablet 11:52: daily. [place] [address] Medical Branch HYDROcodone 2021-02 Yes 1{tbl} Take 1 Un jb -acetaminop 1-25 tablet by ity of hen 5-325 11:52: mouth in [facility] s mg tablet 32 the Medical morning Branch and 1 tablet at noon and 1 tablet in the evening. fluticasone 2021-02 Yes 1{puff} Inhale 1 [facility] propion-tavia 1-25 Puff every it y of meteroL 11:52: 12 [place] [address] (twelve) Medical mcg/dose hours. Branch inhalation disk flecainide 2021-02 Yes 50mg Take 50 mg U nivers acetate 1-25 by mouth ity of (FLECAINIDE 11:52: every [place] ORAL) morning. Medical Branch metoprolol 2021-02 Yes 25mg Take 25 mg U nivers tartrate 25 1-25 by mouth ity of mg tablet 11:52: in the [place] [address] morning. Medical Branch gabapentin 2021-02 Yes 400mg Take 400 Un bj 400 mg 1-25 mg by ity of capsule 11:52: mouth 3 [place] [address] (three) Medical times Branch daily. pantoprazol 2021-02 Yes 40mg Take 40 mg [facility] e 40 mg EC 1-25 by mouth ity o f tablet 11:52: daily. [address] Branch aspirin 81 2021-02 Yes 81mg Take 81 mg U nivers mg chewable 1-25 by mouth ity of tablet 11:52: daily. [address] HYDROcodone 2021-02 Yes 1{tbl} Take 1 Un jb -acetaminop 1-25 tablet by ity of hen 5-325 11:52: mouth [place] mg tablet 32 the Medical morning Branch and 1 tablet at noon and 1 tablet in the evening. fluticasone 2021-02 Yes 1{puff} Inhale 1 [facility] propion-tavia 1-25 Puff every it y of meteroL 11:52: 12 [place] 250-50 32 (twelve) Medical mcg/dose hours. Branch inhalation disk flecainide 2021-02 Yes 50mg Take 50 mg U nivers acetate 1-25 by mouth ity of (FLECAINIDE 11:52: every [place] ORAL) 32 morning. Medical Branch metoprolol 2021-02 Yes 25mg Take 25 mg U nivers tartrate 25 1-25 by mouth ity of mg tablet 11:52: in the [place] [address] morning. Medical Branch gabapentin 2021-02 Yes 400mg Take 400 Un jb 400 mg 1-25 mg by ity of capsule 11:52: mouth 3 [place] [address] (three) Medical times Branch daily. pantoprazol 2021-02 Yes 40mg Take 40 mg [facility] e 40 mg EC 1-25 by mouth ity o f tablet 11:52: daily. [address] Branch aspirin 81 2021-02 Yes 81mg Take 81 mg U nivers mg chewable 1-25 by mouth ity of tablet 11:52: daily. [place] [address] Medical Branch HYDROcodone 2021-02 Yes 1{tbl} Take 1 Un jb -acetaminop 1-25 tablet by ity of hen 5-325 11:52: mouth [place] mg tablet 32 the Medical morning Branch and 1 tablet at noon and 1 tablet in the evening. fluticasone 2021-02 Yes 1{puff} Inhale 1 [facility] propion-tavia 1-25 Puff every it y of meteroL 11:52: 12 [place] 250-50 32 (twelve) Medical mcg/dose hours. Branch inhalation disk flecainide 2021-02 Yes 50mg Take 50 mg U nivers acetate 1-25 by mouth ity of (FLECAINIDE 11:52: every [place] ORAL) 32 morning. Medical Branch fluticasone 2021-02 Yes 1{puff} Inhale 1 [facility] propion-tavia 1-25 Puff every it y of meteroL 11:52: 12 [place] 250-50 (twelve) Medical mcg/dose hours. Branch inhalation disk flecainide 2021-02 Yes 50mg Take 50 mg U nivers acetate 1-25 by mouth ity of (FLECAINIDE 11:52: every [place] ORAL) 32 morning. Medical Branch metoprolol 2021-02 Yes 25mg Take 25 mg U nivers tartrate 25 1-25 by mouth ity of mg tablet 11:52: in the [place] [address] morning. Medical Branch gabapentin 2021-02 Yes 400mg Take 400 Un jb 400 mg 1-25 mg by ity of capsule 11:52: mouth 3 [place] [address] (three) Medical times Branch daily. pantoprazol 2021-02 Yes 40mg Take 40 mg [facility] e 40 mg EC 1-25 by mouth ity o f tablet 11:52: daily. [place] [address] Medical Branch aspirin 81 2021-02 Yes 81mg Take 81 mg U nivers mg chewable 1-25 by mouth ity of tablet 11:52: daily. [place] [address] Medical Branch HYDROcodone 2021-02 Yes 1{tbl} Take 1 Un jb -acetaminop 1-25 tablet by ity of hen 5-325 11:52: mouth in [facility] s mg tablet 32 the Medical morning Branch and 1 tablet at noon and 1 tablet in the evening. fluticasone 2021-02 Yes 1{puff} Inhale 1 [facility] propion-tavia 1-25 Puff every it y of meteroL 11:52: 12 [place] 250-[facility] (twelve) Medical mcg/dose hours. Branch inhalation disk flecainide 2021-02 Yes 50mg Take 50 mg U nivers acetate 1-25 by mouth ity of (FLECAINIDE 11:52: every [place] ORAL) morning. Medical Branch metoprolol 2021-02 Yes 25mg Take 25 mg U nivers tartrate 25 1-25 by mouth ity of mg tablet 11:52: in the [place] [address] morning. Medical Branch gabapentin 2021-02 Yes 400mg Take 400 Un jb 400 mg 1-25 mg by ity of capsule 11:52: mouth 3 [place] [address] (three) Medical times Branch daily. pantoprazol 2021-02 Yes 40mg Take 40 mg [facility] e 40 mg EC 1-25 by mouth ity o f tablet 11:52: daily. [place] [address] Medical Branch aspirin 81 2021-02 Yes 81mg Take 81 mg U nivers mg chewable 1-25 by mouth ity of tablet 11:52: daily. [place] [address] Medical Branch HYDROcodone 2021-02 Yes 1{tbl} Take 1 Un jb -acetaminop 1-25 tablet by ity of hen 5-325 11:52: mouth [place] mg tablet 32 the Medical morning Branch and 1 tablet at noon and 1 tablet in the evening. fluticasone 2021-02 Yes 1{puff} Inhale 1 [facility] propion-tavia 1-25 Puff every it y of meteroL 11:52: 12 [place] [address] (twelve) Medical mcg/dose hours. Branch inhalation disk flecainide 2021-02 Yes 50mg Take 50 mg U nivers acetate 1-25 by mouth ity of (FLECAINIDE 11:52: every [place] ORAL) 32 morning. Medical Branch metoprolol 2021-02 Yes 25mg Take 25 mg U nivers tartrate 25 1-25 by mouth ity of mg tablet 11:52: in the [place] [address] morning. Medical Branch gabapentin 2021-02 Yes 400mg Take 400 Un jb 400 mg 1-25 mg by ity of capsule 11:52: mouth 3 [place] [address] (three) Medical times Branch daily. pantoprazol 2021-02 Yes 40mg Take 40 mg [facility] e 40 mg EC 1-25 by mouth ity o f tablet 11:52: daily. [place] [address] Medical Branch aspirin 81 2021-02 Yes 81mg Take 81 mg U nivers mg chewable 1-25 by mouth ity of tablet 11:52: daily. [place] [address] Medical Branch HYDROcodone 2021-02 Yes 1{tbl} Take 1 Un jb -acetaminop 1-25 tablet by ity of hen 5-325 11:52: mouth [place] mg tablet 32 the Medical morning Branch and 1 tablet at noon and 1 tablet in the evening. fluticasone 2021-02 Yes 1{puff} Inhale 1 [facility] propion-tavia 1-25 Puff every it y of meteroL 11:52: 12 [place] [address] (twelve) Medical mcg/dose hours. Branch inhalation disk flecainide 2021-02 Yes 50mg Take 50 mg U nivers acetate 1-25 by mouth ity of (FLECAINIDE 11:52: every [place] ORAL) 32 morning. Medical Branch metoprolol 2021-02 Yes 25mg Take 25 mg U nivers tartrate 25 1-25 by mouth ity of mg tablet 11:52: in the [place] [address] morning. Medical Branch gabapentin 2021-02 Yes 400mg Take 400 Un jb 400 mg 1-25 mg by ity of capsule 11:52: mouth 3 [place] [address] (three) Medical times Branch daily. pantoprazol 2021-02 Yes 40mg Take 40 mg [facility] e 40 mg EC 1-25 by mouth ity o f tablet 11:52: daily. [place] [address] Medical Branch aspirin 81 2021-02 Yes 81mg Take 81 mg U nivers mg chewable 1-25 by mouth ity of tablet 11:52: daily. [place] [address] Medical Branch HYDROcodone 2021-02 Yes 1{tbl} Take 1 Un jb -acetaminop 1-25 tablet by ity of hen 5-325 11:52: mouth in [facility] s mg tablet 32 the Medical morning Branch and 1 tablet at noon and 1 tablet in the evening. fluticasone 2021-02 Yes 1{puff} Inhale 1 [facility] propion-tavia 1-25 Puff every it y of meteroL 11:52: 12 [place] [address] (twelve) Medical mcg/dose hours. Branch inhalation disk flecainide 2021-02 Yes 50mg Take 50 mg U nivers acetate 1-25 by mouth ity of (FLECAINIDE 11:52: every [place] ORAL) morning. Medical Branch metoprolol 2021-02 Yes 25mg Take 25 mg U nivers tartrate 25 1-25 by mouth ity of mg tablet 11:52: in the [place] [address] morning. Medical Branch gabapentin 2021-02 Yes 400mg Take 400 Un jb 400 mg 1-25 mg by ity of capsule 11:52: mouth 3 [place] [address] (three) Medical times Branch daily. pantoprazol 2021-02 Yes 40mg Take 40 mg [facility] e 40 mg EC 1-25 by mouth ity o f tablet 11:52: daily. [place] [address] Medical Branch aspirin 81 2021-02 Yes 81mg Take 81 mg U nivers mg chewable 1-25 by mouth ity of tablet 11:52: daily. [address] Branch HYDROcodone 2021-02 Yes 1{tbl} Take 1 Un jb -acetaminop 1-25 tablet by ity of hen 5-325 11:52: mouth [place] mg tablet 32 the Medical morning Branch and 1 tablet at noon and 1 tablet in the evening. fluticasone 2021-02 Yes 1{puff} Inhale 1 [facility] propion-tavia 1-25 Puff every it y of meteroL 11:52: 12 [place] 250-50 32 (twelve) Medical mcg/dose hours. Branch inhalation disk flecainide 2021-02 Yes 50mg Take 50 mg U nivers acetate 1-25 by mouth ity of (FLECAINIDE 11:52: every [place] ORAL) 32 morning. Medical Branch metoprolol 2021-02 Yes 25mg Take 25 mg U nivers tartrate 25 1-25 by mouth ity of mg tablet 11:52: in the [place] [address] morning. Medical Branch gabapentin 2021-02 Yes 400mg Take 400 Un jb 400 mg 1-25 mg by ity of capsule 11:52: mouth 3 [place] [address] (three) Medical times Branch daily. pantoprazol 2021-02 Yes 40mg Take 40 mg [facility] e 40 mg EC 1-25 by mouth ity o f tablet 11:52: daily. [place] [address] Medical Branch aspirin 81 2021-02 Yes 81mg Take 81 mg U nivers mg chewable 1-25 by mouth ity of tablet 11:52: daily. [place] [address] Medical Branch HYDROcodone 2021-02 Yes 1{tbl} Take 1 Un jb -acetaminop 1-25 tablet by ity of hen 5-325 11:52: mouth [place] mg tablet 32 the Medical morning Branch and 1 tablet at noon and 1 tablet in the evening. fluticasone 2021-02 Yes 1{puff} Inhale 1 [facility] propion-tavia 1-25 Puff every it y of meteroL 11:52: 12 [place] 250-50 (twelve) Medical mcg/dose hours. Branch inhalation disk flecainide 2021-02 Yes 50mg Take 50 mg U nivers acetate 1-25 by mouth ity of (FLECAINIDE 11:52: every [place] ORAL) 32 morning. Medical Branch metoprolol 2021-02 Yes 25mg Take 25 mg U nivers tartrate 25 1-25 by mouth ity of mg tablet 11:52: in the [place] [address] morning. Medical Branch gabapentin 2021-02 Yes 400mg Take 400 Un jb 400 mg 1-25 mg by ity of capsule 11:52: mouth 3 [place] [address] (three) Medical times Branch daily. pantoprazol 2021-02 Yes 40mg Take 40 mg [facility] e 40 mg EC 1-25 by mouth ity o f tablet 11:52: daily. [address] aspirin 81 2021-02 Yes 81mg Take 81 mg U nivers mg chewable 1-25 by mouth ity of tablet 11:52: daily. [address] Branch HYDROcodone 2021-02 Yes 1{tbl} Take 1 Un jb -acetaminop 1-25 tablet by ity of hen 5-325 11:52: mouth [place] mg tablet 32 the Medical morning Branch and 1 tablet at noon and 1 tablet in the evening. fluticasone 2021-02 Yes 1{puff} Inhale 1 [facility] propion-tvaia 1-25 Puff every it y of meteroL 11:52: 12 [place] [address] (twelve) Medical mcg/dose hours. Branch inhalation disk flecainide 2021-02 Yes 50mg Take 50 mg U nivers acetate 1-25 by mouth ity of (FLECAINIDE 11:52: every [place] ORAL) morning. Medical Branch metoprolol 2021-02 Yes 25mg Take 25 mg U nivers tartrate 25 1-25 by mouth ity of mg tablet 11:52: in the [place] [address] morning. Medical Branch gabapentin 2021-02 Yes 400mg Take 400 Un jb 400 mg 1-25 mg by ity of capsule 11:52: mouth 3 [place] [address] (three) Medical times Branch daily. pantoprazol 2021-02 Yes 40mg Take 40 mg [facility] e 40 mg EC 1-25 by mouth ity o f tablet 11:52: daily. [address] Branch aspirin 81 2021-02 Yes 81mg Take 81 mg U nivers mg chewable 1-25 by mouth ity of tablet 11:52: daily. [address] HYDROcodone 2021-02 Yes 1{tbl} Take 1 Un jb -acetaminop 1-25 tablet by ity of hen 5-325 11:52: mouth [place] mg tablet 32 the Medical morning Branch and 1 tablet at noon and 1 tablet in the evening. fluticasone 2021-02 Yes 1{puff} Inhale 1 Univers propion-tavia 1-25 Puff every it y of meteroL 11:52: 12 [place] 250-50 (twelve) Medical mcg/dose hours. Branch inhalation disk flecainide 2021-02 Yes 50mg Take 50 mg U nivers acetate 1-25 by mouth ity of (FLECAINIDE 11:52: every [place] ORAL) 32 morning. Medical Branch metoprolol 2021-02 Yes 25mg Take 25 mg U nivers tartrate 25 1-25 by mouth ity of mg tablet 11:52: in the [place] [address] morning. Medical Branch gabapentin 2021-02 Yes 400mg Take 400 Un jb 400 mg 1-25 mg by ity of capsule 11:52: mouth 3 [place] [address] (three) Medical times Branch daily. pantoprazol 2021-02 Yes 40mg Take 40 mg Univers e 40 mg EC 1-25 by mouth ity o f tablet 11:52: daily. [place] [address] Medical Branch aspirin 81 2021-02 Yes 81mg Take 81 mg U nivers mg chewable 1-25 by mouth ity of tablet 11:52: daily. [place] [address] Medical Branch HYDROcodone 2021-02 Yes 1{tbl} Take 1 Un jb -acetaminop 1-25 tablet by ity of hen 5-325 11:52: mouth in [facility] s mg tablet 32 the Medical morning Branch and 1 tablet at noon and 1 tablet in the evening. fluticasone 2021-02 Yes 1{puff} Inhale 1 [facility] propion-tavia 1-25 Puff every it y of meteroL 11:52: 12 [place] [facility] (twelve) Medical mcg/dose hours. Branch inhalation disk flecainide 2021-02 Yes 50mg Take 50 mg U nivers acetate 1-25 by mouth ity of (FLECAINIDE 11:52: every [place] ORAL) 32 morning. Medical Branch metoprolol 2021-02 Yes 25mg Take 25 mg U nivers tartrate 25 1-25 by mouth ity of mg tablet 11:52: in the [place] [address] morning. Medical Branch gabapentin 2021-02 Yes 400mg Take 400 Un jb 400 mg 1-25 mg by ity of capsule 11:52: mouth 3 [place] [address] (three) Medical times Branch daily. pantoprazol 2021-02 Yes 40mg Take 40 mg Univers e 40 mg EC 1-25 by mouth ity o f tablet 11:52: daily. [address] aspirin 81 2021-02 Yes 81mg Take 81 mg U nivers mg chewable 1-25 by mouth ity of tablet 11:52: daily. [address] HYDROcodone 2021-02 Yes 1{tbl} Take 1 Un jb -acetaminop 1-25 tablet by ity of hen 5-325 11:52: [place] 32 the [facility] Branch and 1 tablet at noon and 1 tablet in the evening. hydrocortis 2021-02- No [id number] 25mg Insert 1 Univers one 25 mg 1-25 02-24 Suppositor ity of suppository 00:00: 05:59 y into [place] 00 :00 rectum in [facility] morning and 1 Suppositor y in the evening. Do all this for 90 days. hydrocortis 2021-02- No [id number] 25mg Insert 1 Univers one 25 mg 1-25 02-24 Suppositor ity of suppository 00:00: 05:59 y into [place] 00 :00 rectum in [facility] morning and 1 Suppositor y in the evening. Do all this for 90 days. hydrocortis 2021-02- No [id number] 25mg Insert 1 [facility] one 25 mg 1-25 02-24 Suppositor ity of suppository 00:00: 05:59 y into [place] 00 :00 rectum in [facility] morning and 1 Suppositor y in the evening. Do all this for 90 days. hydrocortis 2021-02- No [id number] 25mg Insert 1 Univers one 25 mg 1-25 02-24 Suppositor ity of suppository 00:00: 05:59 y into [place] 00 :00 rectum in [facility] morning and 1 Suppositor y in the evening. Do all this for 90 days. hydrocortis 2021-02- No [id number] 25mg Insert 1 [facility] one 25 mg 1-25 02-24 Suppositor ity of suppository 00:00: 05:59 y into [place] 00 :00 rectum in [facility] morning and 1 Suppositor y in the evening. Do all this for 90 days. hydrocortis 2021-02- No [id number] 25mg Insert 1 [facility] one 25 mg 03-0124 Suppositor ity of suppository 00:00: 05:59 y into [place] 00 :00 rectum in Medical the Branch morning and 1 Suppositor y in the evening. Do all this for 90 days. predniSONE 2021-02- No [id number] Take 2 Univers 20 mg -25 -09 tablets by ity of tablet 00:00: 05:59 mouth [place] 00 :00 daily for Medical 2 days, Branch THEN 1.5 tablets daily for 4 days, THEN 1 tablet daily for 4 days, THEN 0.5 tablets daily for 3 days. predniSONE 2021-02 No [id number] Take 2 Univers 20 mg 25 09 tablets by ity of tablet 00:00: 05:59 mouth [place] 00 :00 daily for Medical 2 days, Branch THEN 1.5 tablets daily for 4 days, THEN 1 tablet daily for 4 days, THEN 0.5 tablets daily for 3 days. oseltamivir 2021-02 No [id number] 75mg Take 1 Univers 75 mg 03-01 [...] Q4HPRN, Medical 0.5 mg Starting Branch on [place] 12/29/21 at 1729, Until Sun12/30/21 at 1728, [...] Yes 25mg 25 mg, Univ ers one -24 Rectal, ity of (ANUSOL-HC) 17:45: BID, First [place] suppository 00 dose on Medic al 25 mg [facility] Branch 12/29/21 at 1145, Until Discontinu ed, Routine levalbutero 2021-02 Yes .31mg 0.31 mg, U nivers l (XOPENEX) 24 Inhalation it y of nebulizer 02:00: , TID, [place] solution 00 First dose Medic al 0.31 mg on [facility] Branch 12/28/21 at 2000, Until Discontinu ed, Routine phenoL 2021-02 Yes 1{spray 1 [place], Univ ers (SORE 02-27 } Oral, PRN, ity of THROAT 23:39: Starting [place] (PHENOL)) 09 on Sun [facility] 1.4 % spray 12/28/21 Bran ch bottle 1 at 1739, [place] Until Discontinu ed, Routine, Sore throat enoxaparin 2021-02 Yes 40mg 40 mg, Unive rs (LOVENOX) 02-27 Subcutaneo ity of injection 15:00: [place], [place]ILY[place] 40 mg 00 First dose Medical on [facility] Branch 12/28/21 at 0900, Until Discontinu ed, Routine pantoprazol 2021-02 Yes 40mg 40 mg, Univ ers e 02-27 Oral, ity of (PROTONIX) 15:00: DAILY, [place] EC tablet 00 First dose Medi kandis 40 mg on [facility] Branch 12/28/21 at 0900, Until Discontinu ed, Routine metoprolol 2021-02 Yes 25mg 25 mg, Unive rs tartrate 02-27 Oral, ity of (LOPRESSOR) 15:00: DAILY, [place] tablet 25 00 First dose Medi kandis mg on [facility] Branch 12/28/21 at 0900, Until Discontinu ed, Routine flecainide 2021-02 Yes 50mg 50 mg, Unive rs (TAMBOCOR) 02-27 Oral, QAM, ity of tablet 50 15:00: First [place] mg 00 on [facility] Medical 12/28/21 Branch at 0900, Until Discontinu ed aspirin 2021-02 Yes 81mg 81 mg, Univers chewable 02-27 Oral, ity of tablet 81 15:00: DAILY, [place] mg 00 First dose Medical on Sun12/28/21 at 0900, Until Discontinu ed, Routine predniSONE 2021-02- No 40mg 40 mg, Univ ers (DELTASONE) 02-27 Oral, ity of tablet 40 15:00: 14:59 DAILY, 5 [place] mg 00 :00 doses, Medical First dose Branch on Sun12/28/21 at 0900, Last dose on Sun01/01/22 at 0900, Routine fluticasone 2021-02 Yes 1{puff} 1 Puff, [facility] propion-tavia 02-27 Inhalation it y of meteroL 07:45: , Q12H, [place] (ADVAIR) First dose Medic al 250-50 on Sun mcg/dose 12/28/21 inhalation at 0145, disk 1 Puff Until Discontinu ed, Routine ipratropium 2021-02 Yes .5mg 0.5 mg, Uni vers (ATROVENT) 02-27 Inhalation ity of 0.02 % 06:00: , Q6H, [place] nebulizer 00 First dose Medi kandis solution on Sun 0.5 mg 12/28/21 at 0000, Until Discontinu ed, Routine docusate 2021-02 Yes 100mg 100 mg, Unive rs (COLACE) 02-27 Oral, BID, ity o f capsule 100 02:00: First dose [place] mg 00 on Sun [facility] 12/27/21 Branch at 1999, Until Discontinu ed, [...] of succ 01:45: 02:05 s, ONCE, 1 [place] (SOLU-MEDRO 00 :00 dose, On Medi kandis L (PF)) Sun [place] injection 12/27/21 40 mg at 1945, 1 mL guaiFENesin 2021-02 Yes 200mg 200 mg, Un jb 100 mg/5 mL 02-27 Oral, ity of solution 00:50: Q6HPRN, [place] 200 mg 38 Starting Medical on Sun Branch 12/27/21 at 1850, Until Discontinu ed, Routine, Cough bisacodyL 2021-02 Yes 10mg 10 mg, Univer s (DULCOLAX) 02-27 Rectal, ity of suppository 00:49: QDAILYPRN, [place] 10 mg 21 Starting Medical on Sun Branch 12/27/21 at 1849, Until Discontinu ed, Routine, Constipati on unresolved by oral medication s ondansetron 2021-02 Yes 4mg 4 mg, Slow Univers (ZOFRAN 02-27 IV Push, ity of (PF)) 00:49: Q6HPRN, [place] injection 4 09 Starting Medi kandis mg on Sun Branch 12/27/21 at 1849, Until Discontinu ed, Routine, Nausea and Vomiting (N/V) HYDROmorpho 2021-02- No .5mg 0.5 mg, Un jb ne 02-27 Slow IV ity of (DILAUDID) 00:48: 23:30 Push, [place] injection 25 :05 Q4HPRN, Medical 0.5 mg Starting Branch on Sun12/27/21 at 1848, Until [place] 12/29/21 at 1730, Routine, Pain (scale 7-10)
U se approved by (Faculty): [employer] PROVIDER HYDROcodone 2021-02- No 1{tbl} 1 tablet, Univers -acetaminop 02-27 Oral, ity of hen (NORCO 00:47: 23:29 Q6HPRN, [place] 5) 5-325 mg 58 :43 Starting Medi kandis tablet 1 on [facility] tablet 12/27/21 at 1847, Until [place] 12/29/21 at 1729, Routine, Pain (scale 4-6) acetaminoph 2021-02 Yes 650mg 650 mg, Un jb en 02-27 Oral, ity of (TYLENOL) 00:47: Q6HPRN, [place] tablet 650 40 Starting Medic al mg on e Branch 12/27/21 at 1847, Until Discontinu ed, Routine, Pain (scale 1-3), Temp > 38.5 C FENTanyl PF 2021-02 No 25ug 25 mcg, Un jb (SUBLIMAZE 02-26 Slow IV ity o f (PF)) 23:30: 22:33 Push, [place] injection 00 :00 ONCE, 1 Medical 25 mcg dose, On Branch e 12/27/21 at 1730, STAT metoclopram 2021-02 No 10mg 10 mg, Uni vers lawson HCl 02-26 Slow IV ity of (REGLAN) 22:45: 22:44 Push, [place] injection 00 :00 ONCE, 1 Medical 10 [...] :23 dose, On Medica l NaCl 0.9% [facility] 1928[facility]1983 Branch (NS) 250 mL 12/27/21 VIAL-MATE at [...] :00 ONCE, 1 Medical dose, On Branch e 12/27/21 at 1545
Re ason for Anti-Infec tive: [...] 00 :00 dose, On Medic al mg 12/27/21 at 1445, EILEEN iopamidol 2021-02- No [id number] 70mL 70 mL, U nivers (ISOVUE 02-26 Intravenou ity o f 370-500 mL) 20:00: 20:01 s, ONCE, 1 [place] injection 00 :00 dose, On Medica l 70 mL [facility] 12/27/21 at 1400, Routine ketorolac 2021-02- No 30mg 30 mg, Unive rs (TORADOL) 02-26 Slow IV ity of injection 19:45: 18:45 Push, [place] 30 mg 00 :00 ONCE, 1 Medical dose, On Branch Sun12/27/21 at 1345, EILEEN FENTanyl PF 2021-02 No 75ug 75 mcg, Un jb (SUBLIMAZE 02-26 Slow IV ity o f (PF)) 19:30: 18:33 Push, [place] injection 00 :00 ONCE, 1 Medical 75 mcg dose, On Branch Sun12/27/21 at 1330, STAT melatonin 3 2021-02- No 6mg Take 6 mg Univers mg tablet 02-26 by mouth ity o f 18:51: 00:00 at [place] 50 :00 bedtime. Medical Branch FENTanyl PF 2021-02- No 50ug 50 mcg, Un jb (SUBLIMAZE 02-26 Slow IV ity o f (PF)) 18:45: 17:39 Push, [place] injection 00 :00 ONCE, 1 Medical 50 mcg dose, On Branch Sun12/27/21 at 1245, STAT ondansetron 2021-02- No 4mg 4 mg, Slow Univers (ZOFRAN 02-26 IV Push, ity of (PF)) 18:45: 17:39 ONCE, 1 [place] injection 4 00 :00 dose, On Medi kandis mg Tue Branch 12/27/21 at 1245, EILEEN HYDROcodone 2021-02 Yes 1{tbl} Take 1 Un jb -acetaminop 0-30 tablet by ity of hen 5-325 18:14: mouth [place] mg tablet 57 the Medical morning Branch and 1 tablet at noon and 1 tablet in the evening. fluticasone 2021-02 Yes 1{puff} Inhale 1 [facility] propion-tavia 0-30 Puff every it y of meteroL 18:14: 12 [place] 250-50 57 (twelve) Medical mcg/dose hours. Branch inhalation disk flecainide 2021-02 Yes 50mg Take 50 mg U nivers acetate 0-30 by mouth ity of (FLECAINIDE 18:14: every [place] ORAL) 57 morning. Medical Branch metoprolol 2021-02 Yes 25mg Take 25 mg U nivers tartrate 25 0-30 by mouth ity of mg tablet 18:14: in the [place] [address] morning. Medical Branch gabapentin 2021-02 Yes 400mg Take 400 Un jb 400 mg 0-30 mg by ity of capsule 18:14: mouth 3 [place] [address] (three) Medical times Branch daily. pantoprazol 2021-02 Yes 40mg Take 40 mg Univers e 40 mg EC 0-30 by mouth ity o f tablet 18:14: daily. [place] [address] Medical Branch aspirin 81 2021-02 Yes 81mg Take 81 mg U nivers mg chewable 0-30 by mouth ity of tablet 18:14: daily. [place] [address] Medical Branch melatonin 3 2021-02 Yes 6mg Take 6 mg U nivers mg tablet 0-30 by mouth ity of 18:14: at [place] [address] bedtime. Medical Branch HYDROcodone 2021-02 Yes 1{tbl} Take 1 Un jb -acetaminop 0-30 tablet by ity of hen 5-325 18:14: mouth [place] mg tablet 57 the Medical morning Branch and 1 tablet at noon and 1 tablet in the evening. fluticasone 2021-02 Yes 1{puff} Inhale 1 [facility] propion-tavia 0-30 Puff every it y of meteroL 18:14: 12 [place] 250-50 57 (twelve) Medical mcg/dose hours. Branch inhalation disk flecainide 2021-02 Yes 50mg Take 50 mg U nivers acetate 0-30 by mouth ity of (FLECAINIDE 18:14: every [place] ORAL) 57 morning. Medical Branch metoprolol 2021-02 Yes 25mg Take 25 mg U nivers tartrate 25 0-30 by mouth ity of mg tablet 18:14: in the [place] [address] morning. Medical Branch gabapentin 2021-02 Yes 400mg Take 400 Un jb 400 mg 0-30 mg by ity of capsule 18:14: mouth 3 [place] [address] (three) Medical times Branch daily. pantoprazol 2021-02 Yes 40mg Take 40 mg Univers e 40 mg EC 0-30 by mouth ity o f tablet 18:14: daily. [place] [address] Medical Branch aspirin 81 2021-02 Yes 81mg Take 81 mg U nivers mg chewable 0-30 by mouth ity of tablet 18:14: daily. [place] [address] Medical Branch melatonin 3 2021-02 Yes 6mg Take 6 mg U nivers mg tablet 0-30 by mouth ity of 18:14: at [place] [address] bedtime. Medical Branch HYDROcodone 2021-02 Yes 1{tbl} Take 1 Un jb -acetaminop 0-30 tablet by ity of hen 5-325 18:14: mouth in [facility] s mg tablet 57 the Medical morning Branch and 1 tablet at noon and 1 tablet in the evening. fluticasone 2021-02 Yes 1{puff} Inhale 1 [facility] propion-tavia 0-30 Puff every it y of meteroL 18:14: 12 [place] 250- 57 (twelve) Medical mcg/dose hours. Branch inhalation disk flecainide 2021-02 Yes 50mg Take 50 mg U nivers acetate 0-30 by mouth ity of (FLECAINIDE 18:14: every [place] ORAL) 57 morning. Medical Branch metoprolol 2021-02 Yes 25mg Take 25 mg U nivers tartrate 25 0-30 by mouth ity of mg tablet 18:14: in the [place] [address] morning. Medical Branch gabapentin 2021-02 Yes 400mg Take 400 Un jb 400 mg 0-30 mg by ity of capsule 18:14: mouth 3 [place] [address] (three) Medical times Branch daily. pantoprazol 2021-02 Yes 40mg Take 40 mg Univers e 40 mg EC 0-30 by mouth ity o f tablet 18:14: daily. [place] [address] Medical Branch aspirin 81 2021-02 Yes 81mg Take 81 mg U nivers mg chewable 0-30 by mouth ity of tablet 18:14: daily. [place] [address] Medical Branch melatonin 3 2021-02 Yes 6mg Take 6 mg U nivers mg tablet 0-30 by mouth ity of 18:14: at [place] [address] bedtime. Medical Branch HYDROcodone 2021-02 Yes 1{tbl} Take 1 Un jb -acetaminop 0-30 tablet by ity of hen 5-325 18:14: mouth in [facility] s mg tablet 57 the Medical morning Branch and 1 tablet at noon and 1 tablet in the evening. fluticasone 2021-02 Yes 1{puff} Inhale 1 [facility] propion-tavia 0-30 Puff every it y of meteroL 18:14: 12 [place] [address] 57 (twelve) Medical mcg/dose hours. Branch inhalation disk flecainide 2021-02 Yes 50mg Take 50 mg U nivers acetate 0-30 by mouth ity of (FLECAINIDE 18:14: every [place] ORAL) morning. Medical Branch metoprolol 2021-02 Yes 25mg Take 25 mg U nivers tartrate 25 0-30 by mouth ity of mg tablet 18:14: in the [place] [address] morning. Medical Branch gabapentin 2021-02 Yes 400mg Take 400 Un jb 400 mg 0-30 mg by ity of capsule 18:14: mouth 3 [place] [address] (three) Medical times Branch daily. pantoprazol 2021-02 Yes 40mg Take 40 mg Univers e 40 mg EC 0-30 by mouth ity o f tablet 18:14: daily. [place] [address] Medical Branch aspirin 81 2021-02 Yes 81mg Take 81 mg U nivers mg chewable 0-30 by mouth ity of tablet 18:14: daily. [place] [address] Medical Branch melatonin 3 2021-02 Yes 6mg Take 6 mg U nivers mg tablet 0-30 by mouth ity of 18:14: at [place] [address] bedtime. Medical Branch sulfur 2021-02- No [id number] 5mL 5 mL, Univ ers hexafluorid 0-30 10-30 Intravenou i ty of e microsphr 15:00: 14:49 s, ONCE, 1 [place] (LUMASON) 00 :00 dose, On Medica l injection 5 [facility] mL 12/04/21 at 1000, Routine
interior design faculty member approving Restricted medication : JOHN HOOPER lactobacill 2021-02 Yes .5mg 0.5 mg, Uni vers us 0-30 Oral, ity of acidophilus 14:00: DAILY, [place] tablet 0.5 00 First dose Med ical mg on [facility] 12/04/21 at 0900, Until Discontinu ed, Routine enoxaparin 2021-02 Yes 40mg 40 mg, Unive rs (LOVENOX) 0-30 Subcutaneo ity of injection 14:00: [place], [place]ILY, [place] 40 mg 00 First dose Medical on [facility] 12/04/21 at 0900, Until Discontinu ed, Routine polyethylen 2021-02 Yes 17g 17 g, Unive rs e glycol 0-30 Oral, ity of 3350 powder 14:00: DAILY, [place] 17 g 00 First dose Medical on [facility] 12/04/21 at 0900, Until Discontinu ed, Routine pantoprazol 2021-02 Yes 40mg 40 mg, Univ ers e 0-30 Oral, ity of (PROTONIX) 14:00: DAILY, [place] EC tablet 00 First dose Medi kandis 40 mg on [facility] 12/04/21 at 0900, Until Discontinu ed, Routine flecainide 2021-02 Yes 50mg 50 mg, Unive rs (TAMBOCOR) 0-30 Oral, QAM, ity of tablet 50 14:00: First dose [place] mg 00 on [facility] 12/04/21 Branch at 0900, Until Discontinu ed aspirin 2021-02 Yes 81mg 81 mg, Univers chewable 0-30 Oral, ity of tablet 81 14:00: DAILY, [place] mg 00 First dose Medical on [facility] 12/04/21 at 0900, Until Discontinu ed, Routine predniSONE 2021-02 Yes 50mg 50 mg, Unive rs (DELTASONE) 0-30 Oral, QAM ity of tablet 50 13:00: WITH [place] mg 00 BREAKFAST, Medical First dose Branch on [place] 12/04/21 at 0800, Until Discontinu ed, Routine magnesium 2021-02 Yes 400mg 400 mg, Univ ers oxide 0-30 Oral, BID, ity of (MAG-OX 13:00: First [place] 400) tablet 00 on [place] Medica l 400 mg 12/04/21 Branch at 0800, Until Discontinu ed, Routine budesonide 2021-02 Yes .5mg 0.5 mg, Univ ers (PULMICORT 0-30 Inhalation ity of RESPULE) 13:00: , BID, [place] nebulizer 00 First dose Medi kandis solution on [place] Branch 0.5 mg 12/04/21 at 0800, Until Discontinu ed, Routine levoFLOXaci 2021-02 Yes 750mg 750 mg, IV Univers n in D5W 0-30 Piggyback, ity o f (LEVAQUIN) 07:30: Q24H ABX, [place] mg/150 00 First dose Med ical mL on [facility] Piggyback 12/04/21 750 mg at 0230, Until Discontinu ed, Administer over 90 Minutes, 150 mL
Reas on for Anti-Infec tive: Empiric Therapy for Suspected Infection< br>Empiric Therapy Site: Respirator y
Durat ion of therapy: 5 days
Re stricted use approved by: [employer] PROVIDER furosemide 2021-02- No 20mg 20 mg, IV U nivers (LASIX) 0-30 10-30 Push, ity of injection 07:15: 07:04 ONCE, 1 [place] 20 mg 00 :00 dose, On Medical [facility] 12/04/21 at 0215, Routine magnesium 2021-02- No 2g 2 g, IV Univ ers sulfate in 0-30 10-30 Piggyback, it y of water 2 07:15: 07:56 Administer [place] gram/50 mL 00 :00 over 60 Medica l (4 %) Minutes, Branch infusion 2 ONCE, 1 g dose, On [place] 12/04/21 at 0215, Routine ipratropium 2021-02 Yes .5mg 0.5 mg, Uni vers (ATROVENT) 0-30 Inhalation ity of 0.02 % 06:30: , Q4H, [place] nebulizer 00 First dose Medi kandis solution on [place] Branch 0.5 mg 12/04/21 at 0130, Until Discontinu ed, Routine levalbutero 2021-02 Yes 1.25mg 1.25 mg, Univers l (XOPENEX) 0-30 Inhalation it y of nebulizer 06:30: , Q4H, [place] solution 00 First dose Medic al 1.25 mg (after Branch last reorder) on [place] 12/04/21 at 0130, Until Discontinu ed, Routine metoprolol 2021-02 Yes 25mg 25 mg, Unive rs tartrate 0-30 Oral, BID, ity o f (LOPRESSOR) 06:30: First dose [place] tablet 25 00 (after Medical mg last Branch modificati on) on [place] 12/04/21 at 0130, Until Discontinu ed, Routine HYDROcodone 2021-02 Yes 1{tbl} 1 tablet, Univers -acetaminop 0-30 Oral, ity of hen (NORCO) 03:28: Q6HPRN, [place] 10-325 mg 14 Starting Medica l tablet 1 on [facility] Branch tablet 12/03/21 at 2228, Until Discontinu ed, Routine, Pain (scale 4-6) FENTanyl PF 2021-02 Yes 25ug 25 mcg, Uni vers (SUBLIMAZE 0-30 Slow IV ity of (PF)) 03:27: Push, [place] injection 56 Q4HPRN, Medical 25 mcg Starting Branch on [facility] 12/03/21 at 2227, Until Discontinu ed, Routine, Pain (scale 7-10) melatonin 2021-02 Yes 6mg 6 mg, Univers (MELATIN) 0-30 Oral, QHS, ity of tablet 6 mg 02:00: First dose [place] 00 on [facility] 12/03/21 Branch at 2100, Until Discontinu ed, Routine docusate 2021-02 Yes 100mg 100 mg, Unive rs (COLACE) 0-30 Oral, BID, ity o f capsule 100 01:00: First dose [place] mg 00 on [facility] Medical 12/03/21 Branch at 2000, Until Discontinu ed, Routine ondansetron 2021-02 Yes 4mg 4 mg, Slow Univers (ZOFRAN 0-30 IV Push, ity of (PF)) 00:39: Q6HPRN, [place] injection 4 05 Starting Medi kandis mg on [facility] Branch 12/03/21 at 1939, Until Discontinu [...] 500mL at 999 Univ ers (NS) bolus 0 10-30 mL/hr, 500 it y of infusion [...] 12/03/21 120 mg at 1800, EILEEN nitroglycer 2021-02 .4mg 0.4 mg, Un jb in 0-29 10-29 Sublingual ity of (NITROSTAT) 22:56: 23:14 , [...] daily for 3 days. predniSONE 2021-02- No [id number] Take 6 Univers 10 mg 0-23 11-08 [...] every it y of meteroL 16:39: 12 [place] 250-50 (twelve) Medical mcg/dose hours. Branch inhalation disk flecainide 2021-02 Yes 50mg Take 50 mg U nivers acetate 0-22 by mouth ity of (FLECAINIDE 16:39: every [place] ORAL) 58 morning. Medical Branch metoprolol 2021-02 Yes 25mg Take 25 mg U nivers tartrate 25 0-22 by mouth ity of mg tablet 16:39: in the [place] [address] morning. Medical Branch gabapentin 2021-02 Yes 400mg Take 400 Un jb 400 mg 0-22 mg by ity of capsule 16:39: mouth 3 [place] [address] (three) Medical times Branch daily. pantoprazol 2021-02 Yes 40mg Take 40 mg Univers e 40 mg EC 0-22 by mouth ity o f tablet 16:39: daily. [place] [address] Medical Branch aspirin 81 2021-02 Yes 81mg Take 81 mg U nivers mg chewable 0-22 by mouth ity of tablet 16:39: daily. [place] [address] Medical Branch melatonin 3 2021-02 Yes 6mg Take 6 mg U nivers mg tablet 0-22 by mouth ity of 16:39: at [place] [address] bedtime. Medical Branch HYDROcodone 2021-02 Yes 1{tbl} Take 1 Un jb -acetaminop 0-22 tablet by ity of hen 5-325 16:39: mouth in [facility] s mg tablet 58 the Medical morning Branch and 1 tablet at noon and 1 tablet in the evening. fluticasone 2021-02 Yes 1{puff} Inhale 1 Univers propion-tavia 0-22 Puff every it y of meteroL 16:39: 12 [place] 250-50 58 (twelve) Medical mcg/dose hours. Branch inhalation disk flecainide 2021-02 Yes 50mg Take 50 mg U nivers acetate 0-22 by mouth ity of (FLECAINIDE 16:39: every [place] ORAL) 58 morning. Medical Branch metoprolol 2021-02 Yes 25mg Take 25 mg U nivers tartrate 25 0-22 by mouth ity of mg tablet 16:39: in the [place] [address] morning. Medical Branch gabapentin 2021-02 Yes 400mg Take 400 Un jb 400 mg 0-22 mg by ity of capsule 16:39: mouth 3 [place] [address] (three) Medical times Branch daily. pantoprazol 2021-02 Yes 40mg Take 40 mg Univers e 40 mg EC 0-22 by mouth ity o f tablet 16:39: daily. [place] [address] Medical Branch aspirin 81 2021-02 Yes 81mg Take 81 mg U nivers mg chewable 0-22 by mouth ity of tablet 16:39: daily. [place] [address] Medical Branch melatonin 3 2021-02 Yes 6mg Take 6 mg U nivers mg tablet 0-22 by mouth ity of 16:39: at [place] [address] bedtime. Medical Branch HYDROcodone 2021-02 Yes 1{tbl} Take 1 Un jb -acetaminop 0-22 tablet by ity of hen 5-325 16:39: mouth in [facility] s mg tablet 58 the Medical morning Branch and 1 tablet at noon and 1 tablet in the evening. fluticasone 2021-02 Yes 1{puff} Inhale 1 Univers propion-tavia 0-22 Puff every it y of meteroL 16:39: 12 [place] 250- 58 (twelve) Medical mcg/dose hours. Branch inhalation disk flecainide 2021-02 Yes 50mg Take 50 mg U nivers acetate 0-22 by mouth ity of (FLECAINIDE 16:39: every [place] ORAL) 58 morning. Medical Branch metoprolol 2021-02 Yes 25mg Take 25 mg U nivers tartrate 25 0-22 by mouth ity of mg tablet 16:39: in the [place] [address] morning. Medical Branch gabapentin 2021-02 Yes 400mg Take 400 Un jb 400 mg 0-22 mg by ity of capsule 16:39: mouth 3 [place] [address] (three) Medical times Branch daily. pantoprazol 2021-02 Yes 40mg Take 40 mg Univers e 40 mg EC 0-22 by mouth ity o f tablet 16:39: daily. [place] [address] Medical Branch aspirin 81 2021-02 Yes 81mg Take 81 mg U nivers mg chewable 0-22 by mouth ity of tablet 16:39: daily. [place] [address] Medical Branch melatonin 3 2021-02 Yes 6mg Take 6 mg U nivers mg tablet 0-22 by mouth ity of 16:39: at [place] [address] bedtime. Medical Branch HYDROcodone 2021-02 Yes 1{tbl} Take 1 Un jb -acetaminop 0-22 tablet by ity of hen 5-325 16:39: mouth in [facility] s mg tablet 58 the Medical morning Branch and 1 tablet at noon and 1 tablet in the evening. predniSONE 2021-02 Yes 60mg 60 mg, Unive rs (DELTASONE) 0-22 Oral, ity of tablet 60 14:00: DAILY, [place] mg 00 First dose Medical (after Branch last modificati on) on 11/26/21 at 0900, Until Discontinu ed, Routine cyclobenzap 2021-02- No [id number] 10mg Take 1 Univers rine 10 mg 0-22 11-22 tablet by ity of tablet 00:00: 05:59 mouth 3 [place] 00 :00 (three) Medical times Branch daily as needed for Muscle Spasms for up to 30 days. cyclobenzap 2021-02- No [id number] 10mg Take 1 Univers rine 10 mg 0-22 11-22 tablet by ity of tablet 00:00: 05:59 mouth 3 [place] 00 :00 (three) Medical times Branch daily as needed for Muscle Spasms for up to 30 days. cyclobenzap 2021-02- No [id number] 10mg Take 1 Univers rine 10 mg 0-22 11-22 tablet by ity of tablet 00:00: 05:59 mouth 3 [place] 00 :00 (three) Medical times Branch daily as needed for Muscle Spasms for up to 30 days. cyclobenzap 2021-02- No [id number] 10mg Take 1 Univers rine 10 mg 0-22 11-22 tablet by ity of tablet 00:00: 05:59 mouth 3 [place] 00 :00 (three) Medical times Branch daily as needed for Muscle Spasms for up to 30 days. cyclobenzap 2021-02 No [id number] 10mg Take 1 Univers rine 10 mg 0-22 11-22 tablet by ity of tablet 00:00: 05:59 mouth 3 [place] 00 :00 (three) Medical times Branch daily as needed for Muscle Spasms for up to 30 days. cyclobenzap 2021-02 No [id number] 10mg Take 1 Univers rine 10 mg 0-22 11-22 tablet by ity of tablet 00:00: 05:59 mouth 3 [place] 00 :00 (three) Medical times Branch daily as needed for Muscle Spasms for up to 30 days. cyclobenzap 2021-02 No [id number] 10mg Take 1 Univers rine 10 mg 0-22 11-22 tablet by ity of tablet 00:00: 05:59 mouth 3 [place] 00 :00 (three) Medical times Branch daily [...] Indication s: chronic pain azithromyci 2021-02- No [id number] 500mg Take 1 Univers n 500 mg 0-11-30 tablet by ity o f tablet 00:00: 04:59 mouth in [place] 00 :00 the Medical morning Branch for 3 days. azithromyci 2021-02- No [id number] 500mg Take 1 Univers n 500 mg 0-26 11- tablet by ity o f tablet 00:00: 04:59 mouth in [place] 00 :00 the Medical morning Branch for [...] 40mg 40 mg, Univ ers (DELTASONE) 0-21 10- Oral, ity of tablet 40 03:30: 17:41 DAILY, [place] mg 00 :37 First dose Medical on [facility] Branch 11/24/21 at 2230, Until Discontinu ed, [...] dose Branch (after last modificati on) on [facility] 11/24/21 at 1700, Until Discontinu ed FENTanyl PF 2021-02- No 25ug 25 mcg, Un jb (SUBLIMAZE 0-20 10-21 Slow IV ity o f (PF)) 16:22: 17:49 Push, [place] injection 59 :31 Q3HPRN, Medical 25 mcg Starting Branch on [place] 11/24/21 at 1122, Until Sun11/25/21 at 1249, Routine, break through HYDROcodone 2021-02- No 1{tbl} 1 tablet, Univers -acetaminop 0-20 10-21 Oral, ity of hen (NORCO) 15:14: 17:49 Q6HPRN, [place] 10-325 mg 00 :31 Starting Medica l tablet 1 on [facility] tablet 11/24/21 at 1014, Until Sun11/25/21 at 1249, Routine, Pain (scale 7-10) metoprolol 2021-02 Yes 25mg 25 mg, Unive rs tartrate 0-20 Oral, ity of (LOPRESSOR) 14:00: DAILY, [place] tablet 25 00 First dose Medi kandis mg (after Branch last modificati on) on [facility] 11/24/21 at 0900, Until Discontinu ed, Routine enoxaparin 2021-02 Yes 40mg 40 mg, Unive rs (LOVENOX) 0-20 Subcutaneo ity of injection 14:00: us, DAILY, [place] 40 mg 00 First dose Medical on [facility] 11/24/21 at 0900, Until Discontinu ed, Routine pantoprazol 2021-02 Yes 40mg 40 mg, Univ ers e 0-20 Oral, ity of (PROTONIX) 14:00: DAILY, [place] EC tablet 00 First dose Medi kandis 40 mg on [facility] 11/24/21 at 0900, Until Discontinu ed, Routine aspirin 2021-02 Yes 81mg 81 mg, Univers chewable 0-20 Oral, ity of tablet 81 14:00: DAILY, [place] mg 00 First dose Medical on [facility] 11/24/21 at 0900, Until Discontinu ed, Routine fluticasone 2021-02 Yes 1{puff} 1 Puff, Univers propion-tavia 0-20 Inhalation it y of meteroL 13:00: , Q12H, [place] (ADVAIR) 00 First dose Medic al 250-50 on [place] Branch mcg/dose 11/24/21 inhalation at 0800, disk 1 Puff Until Discontinu ed, Routine docusate 2021-02 Yes 100mg 100 mg, Unive rs (COLACE) 0-20 Oral, BID, ity o f capsule 100 13:00: First dose [place] mg 00 on [facility] Medical 11/24/21 Branch at 0800, Until Discontinu ed, Routine cyclobenzap 2021-02 Yes 10mg 10 mg, Univ ers rine 0-20 Oral, ity of (FLEXERIL) 10:40: TIDPRN, [place] tablet 10 31 Starting Medica l mg on [facility] Branch 11/24/21 at 0540, Until Discontinu ed, Routine, Muscle Spasms HYDROmorpho 2021-02- No .5mg 0.5 mg, Un jb ne 0-20 10-20 Slow IV ity of (DILAUDID) 10:15: 09:29 Push, [place] injection 00 :00 ONCE, 1 Medical 0.5 mg dose, On Branch [facility] 11/24/21 at 0515, Routine
Use approved by (Faculty): ADC PROVIDER HYDROcodone 2021-02- No 1{tbl} 1 tablet, Univers -acetaminop 0-20 10-20 Oral, ity of hen (NORCO 08:49: 15:21 Q8HPRN, [place] 5) 5-325 mg 58 :30 Starting Medi kandis tablet 1 on [facility] tablet 11/24/21 at 0349, Until [place] 11/24/21 at 1021, Routine, Pain (scale 4-6) guaiFENesin 2021-02 Yes 200mg 200 mg, Un jb 100 mg/5 mL 0-20 Oral, ity of solution 08:27: Q4HPRN, [place] 200 mg 53 Starting Medical on [place] Branch 11/24/21 at 0327, Until Discontinu ed, Routine, Cough ondansetron 2021-02 Yes 4mg 4 mg, Slow Univers (ZOFRAN 0-20 IV Push, ity of (PF)) 08:26: Q6HPRN, [place] injection 4 58 Starting Medi kandis mg on [facility] Branch 11/24/21 at 0326, Until Discontinu ed, Routine, Nausea and Vomiting (N/V) acetaminoph 2021-02 Yes 650mg 650 mg, Un jb en 0-20 Oral, ity of (TYLENOL) 08:26: Q6HPRN, [place] tablet 650 22 Starting Medic al mg on [place] Branch 11/24/21 at 0326, Until Discontinu ed, Routine, Pain (scale 1-3) polyethylen 2021-02 Yes 17g 17 g, Unive rs e glycol 0-20 Oral, ity of 3350 powder 08:23: [id number], [place] 17 g 29 Starting Medical on [place] Branch 11/24/21 at 0323, Until Discontinu ed, [...] Hospi ta capsule 00 :00 l methylpredn No 125mg 125 mg, U nivers [...] 1 Medical 25 mcg dose, On Branch Sun09/14/21 at 1300, STAT polyethylen 2021-0 Yes 17g Take 1 Univers e glycol 8-03 Packet by ity of 3350 17 00:00: mouth in [place] gram powder 00 the Medical morning. Branch polyethylen 2-0 Yes [id number] 17g Take 1 Univers e glycol 8-03 Packet by ity of 3350 17 00:00: mouth in [place] gram powder 00 the Medical morning. Branch polyethylen 2-0 Yes 17g Take 1 Univers e glycol 8-03 Packet by ity of 3350 17 00:00: mouth in [place] gram powder 00 the Medical morning. Branch polyethylen 2-0 Yes 17g Take 1 Univers e glycol 8-03 Packet by ity of 3350 17 00:00: mouth in [place] gram powder 00 the Medical morning. Branch polyethylen 2022-0 Yes [id number] 17g Take 1 Univers e glycol 8-03 Packet by ity of 3350 17 00:00: mouth in [place] gram powder 00 the Medical morning. Branch polyethylen 2-0 Yes 17g Take 1 Univers e glycol 8-03 Packet by ity of 3350 17 00:00: mouth in [place] gram powder 00 the Medical morning. Branch polyethylen 2021-0 Yes [id number] 17g Take 1 Univers e glycol 8-03 Packet by ity of 3350 17 00:00: mouth in [place] gram powder 00 the Medical morning. Branch polyethylen 2021-0 Yes 17g Take 1 Univers e glycol 8-03 Packet by ity of 3350 17 00:00: mouth in [place] gram powder 00 the Medical morning. Branch polyethylen 2021-0 Yes [id number] 17g Take 1 Univers e glycol 8-03 [...] powder 00 the Medical morning. Branch polyethylen 2021- No [id number] 17g Take 1 Univers e glycol 8-03 11-22 Packet by ity o f 3350 17 00:00: 00:00 mouth in [place] gram powder 00 :00 the Medical morning. Branch cholecalcif No [id number] 1000U Take 1 Univers usha, 09-07 tablet by ity of vitamin D3, 00:00: 04:59 mouth in [place] 25 mcg 00 :00 the Medical (1,000 morning Branch unit) for 5 tablet days. zinc 2021- No [id number] 50mg Take 1 Unive rs sulfate 50 09-07 capsule by it y of mg zinc 00:00: 04:59 mouth in [place] (220 mg) 00 :00 the Medical capsule morning Branch for 5 days. cholecalcif No [id number] 1000U Take 1 Univers usha, 09-07 tablet by ity of vitamin D3, 00:00: 04:59 mouth in [place] 25 mcg 00 :00 the Medical (1,000 morning Branch unit) for 5 tablet days. zinc No [id number] 50mg Take 1 Unive rs sulfate 50 8-03 08-09 capsule by it y of mg zinc 00:00: 04:59 mouth in [place] (220 mg) 00 :00 the Medical capsule morning Branch for 5 days. fluticasone Yes 1{puff} Inhale 1 Univers propion-tavia 8-02 Puff every it y of meteroL 17:25: 12 [place] [address] (twelve) Medical mcg/dose hours. Branch inhalation disk flecainide Yes 50mg Take 50 mg U nivers acetate 8-02 by mouth ity of (FLECAINIDE 17:25: every [place] ORAL) 34 morning. Medical Branch HYDROcodone Yes 1{tbl} Take 1 Un jb -acetaminop 8-02 tablet by ity of hen (NORCO) 17:25: mouth 3 [place] 5-325 mg 34 (three) Medical tablet times Branch daily. metoprolol Yes 25mg Take 25 mg U nivers tartrate 25 8-02 by mouth 2 it y of mg tablet 17:25: (two) [place] [address] times Medical daily. Branch gabapentin Yes 400mg Take 400 Un jb 400 mg 8-02 mg by ity of capsule 17:25: mouth 3 [place] 34 (three) Medical times Branch daily. pantoprazol Yes 40mg Take 40 mg Univers e 40 mg EC 8-02 by mouth ity o f tablet 17:25: daily. [place] [address] Medical Branch aspirin 81 0 Yes 81mg Take 81 mg U nivers mg chewable 8-02 by mouth ity of tablet 17:25: daily. [place] [address] Medical Branch melatonin 3 Yes 6mg Take 6 mg U nivers mg tablet 8-02 by mouth ity of 17:25: at [place] [address] bedtime. Medical Branch fluticasone Yes 1{puff} Inhale 1 Univers propion-tavia 8-02 Puff every it y of meteroL 17:25: 12 [place] [address] (twelve) Medical mcg/dose hours. Branch inhalation disk flecainide Yes 50mg Take 50 mg U nivers acetate 8-02 by mouth ity of (FLECAINIDE 17:25: every [place] ORAL) 34 morning. Medical Branch HYDROcodone 0 Yes 1{tbl} Take 1 Un jb -acetaminop 8-02 tablet by ity of hen (NORTi Knight) 17:25: mouth 3 [place] 5-325 mg 34 (three) Medical tablet times Branch daily. metoprolol 0 Yes 25mg Take 25 mg U nivers tartrate 25 8-02 by mouth 2 it y of mg tablet 17:25: (two) [place] [address] times Medical daily. Branch gabapentin 0 Yes 400mg Take 400 Un jb 400 mg 8-02 mg by ity of capsule 17:25: mouth 3 [place] 34 (three) Medical times Branch daily. pantoprazol Yes 40mg Take 40 mg Univers e 40 mg EC 8-02 by mouth ity o f tablet 17:25: daily. [place] [address] Medical Branch aspirin 81 0 Yes 81mg Take 81 mg U nivers mg chewable 8-02 by mouth ity of tablet 17:25: daily. [place] [address] Medical Branch melatonin 3 Yes 6mg Take 6 mg U nivers mg tablet -02 by mouth ity of 17:25: at [place] [address] bedtime. Medical Branch fluticasone Yes 1{puff} Inhale 1 Univers propion-tavia 8-02 Puff every it y of meteroL 17:25: 12 [place] 250-50 34 (twelve) Medical mcg/dose hours. Branch [...] it y of mg tablet 17:25: (two) [place] [address] times Medical daily. Branch gabapentin Yes 400mg Take 400 Un jb 400 mg 8-02 mg by ity of capsule 17:25: mouth 3 [place] 34 (three) Medical times Branch daily. pantoprazol 0 Yes 40mg Take 40 mg Univers e 40 mg EC 8-02 by mouth ity o f tablet 17:25: daily. [place] [address] Medical Branch aspirin 81 Yes 81mg Take 81 mg U nivers mg chewable 8-02 by mouth ity of tablet 17:25: daily. [place] [address] Medical Branch melatonin 3 Yes 6mg Take 6 mg U nivers mg tablet 8-02 by mouth ity of 17:25: at [place] [address] bedtime. Medical Branch fluticasone Yes 1{puff} Inhale 1 Univers propion-tavia 8-02 Puff every it y of meteroL 17:25: 12 [place] [address] (twelve) Medical mcg/dose hours. Branch inhalation disk flecainide Yes 50mg Take 50 mg U nivers acetate 8-02 by mouth ity of (FLECAINIDE 17:25: every [place] ORAL) morning. Medical Branch metoprolol Yes 25mg Take 25 mg U nivers tartrate 25 8-02 by mouth 2 it y of mg tablet 17:25: (two) [place] [address] times Medical daily. Branch gabapentin Yes 400mg Take 400 Un jb 400 mg 8-02 mg by ity of capsule 17:25: mouth 3 [place] [address] (three) Medical times Branch daily. pantoprazol Yes 40mg Take 40 mg Univers e 40 mg EC 8-02 by mouth ity o f tablet 17:25: daily. [place] [address] Medical Branch aspirin 81 Yes 81mg Take 81 mg U nivers mg chewable 8-02 by mouth ity of tablet 17:25: daily. [place] [address] Medical Branch melatonin 3 Yes 6mg Take 6 mg U nivers mg tablet 8-02 by mouth ity of 17:25: at [place] [address] bedtime. Medical Branch phenoL Yes 1{spray 1 [place], Univ ers (SORE 8-02 } Oral, PRN, ity of THROAT 15:55: Starting [place] (PHENOL)) 44 on [facility]1983 Medical 1.4 % spray 09/06/21 at [facility] bottle 1 6575, [place] Until Discontinu ed, Routine, Sore throat docusate Yes [id number] 100mg Take 1 U nivers 100 mg 8-02 capsule by ity of capsule 00:00: mouth in [place] 00 the Medical morning Branch and 1 capsule in the evening. phenoL 1.4 2021-0 Yes [id number] 1{spray Take 1 Univers % spray 8-02 } [place] by ity of 00:00: mouth as [place] 00 needed for Medical Sore Branch throat. docusate 2021-0 Yes [id number] 100mg Take 1 U nivers 100 mg 8-02 capsule by ity of capsule 00:00: mouth in [place] 00 the Medical morning Branch and 1 capsule in the evening. phenoL 1.4 2021-0 Yes [id number] 1{spray Take 1 Univers % spray 8-02 } [place] by ity of 00:00: mouth as [place] 00 needed for Medical Sore Branch throat. docusate 2021-0 Yes [id number] 100mg Take 1 U nivers 100 mg 8-02 capsule by ity of capsule 00:00: mouth in [place] 00 the Medical morning Branch and 1 capsule in the evening. phenoL 1.4 2021-0 Yes 1{spray Take 1 Univers % spray 8-02 } [place] by ity of 00:00: mouth as [place] 00 needed for Medical Sore Branch throat. docusate 2021-0 Yes [id number] 100mg Take 1 U nivers 100 mg 8-02 capsule by ity of capsule 00:00: mouth in [place] 00 the Medical morning Branch and 1 capsule in the evening. phenoL 1.4 2021-0 Yes 1{spray Take 1 Univers % spray 8-02 } [place] by ity of 00:00: mouth as [place] 00 needed for Medical Sore Branch throat. docusate 2021-0 Yes [id number] 100mg Take 1 U nivers 100 mg 8-02 capsule by ity of capsule 00:00: mouth in [place] 00 the Medical morning Branch and 1 capsule in the evening. phenoL 1.4 2021-0 Yes [id number] 1{spray Take 1 Univers % spray 8-02 } [place] by ity of 00:00: mouth as [place] 00 needed for Medical Sore Branch throat. docusate 2021-0 Yes [id number] 100mg Take 1 U nivers 100 mg 8-02 capsule by ity of capsule 00:00: mouth in [place] 00 the Medical morning Branch and 1 capsule in the evening. phenoL 1.4 2021-0 Yes [id number] 1{spray Take 1 Univers % spray 8-02 } [place] by ity of 00:00: mouth as [place] 00 needed for Medical Sore Branch throat. docusate 2021-0 Yes [id number] 100mg Take 1 U nivers 100 mg 8-02 capsule by ity of capsule 00:00: mouth in [place] 00 the Medical morning Branch and 1 capsule in the evening. phenoL 1.4 2021-0 Yes 1{spray Take 1 Univers % spray 8-02 } [place] by ity of 00:00: mouth as [place] 00 needed for Medical Sore Branch throat. docusate 2021-0 Yes [id number] 100mg Take 1 U nivers 100 mg 8-02 capsule by ity of capsule 00:00: mouth in [place] 00 the Medical morning Branch and 1 capsule in the evening. phenoL 1.4 2021-0 Yes 1{spray Take 1 Univers % spray 8-02 } [place] by ity of 00:00: mouth as [place] 00 needed for Medical Sore Branch throat. docusate 2021-0 Yes [id number] 100mg Take 1 U nivers 100 mg 8-02 capsule by ity of capsule 00:00: mouth in [place] 00 the Medical morning Branch and 1 capsule in the evening. phenoL 1.4 2021-0 Yes 1{spray Take 1 Univers % spray 8-02 } [place] by ity of 00:00: mouth as [place] 00 needed for Medical Sore Branch throat. docusate 2021-0 Yes [id number] 100mg Take 1 U nivers 100 mg 8-02 capsule by ity of capsule 00:00: mouth in [place] 00 the Medical morning Branch and 1 capsule in the evening. phenoL 1.4 2021-0 Yes 1{spray Take 1 Univers % spray 8-02 } [place] by ity of 00:00: mouth as [place] 00 needed for Medical Sore Branch throat. docusate 2021-0 Yes [id number] 100mg Take 1 U nivers 100 mg 8-02 capsule by ity of capsule 00:00: mouth in [place] 00 the Medical morning Branch and 1 capsule in the evening. phenoL 1.4 2021-0 Yes 1{spray Take 1 Univers % spray 8-02 } [place] by ity of 00:00: mouth as [place] 00 needed for Medical Sore Branch throat. docusate 2-0 Yes [id number] 100mg Take 1 U nivers 100 mg 8-02 capsule by ity of capsule 00:00: mouth in [place] 00 the Medical morning Branch and 1 capsule in the evening. docusate 2-0 Yes [id number] 100mg Take 1 U nivers 100 mg 8-02 capsule by ity of capsule 00:00: mouth in [place] 00 the Medical morning Branch and 1 capsule in the evening. docusate 2021-0 Yes [id number] 100mg Take 1 U nivers 100 mg 8-02 capsule by ity of capsule 00:00: mouth in [place] 00 the Medical morning Branch and 1 capsule in the evening. docusate 2021-0 Yes [id number] 100mg Take 1 U nivers 100 mg 8-02 capsule by ity of capsule 00:00: mouth in [place] 00 the Medical morning Branch and 1 capsule in the evening. docusate 2021-0 Yes [id number] 100mg Take 1 U nivers 100 mg 8-02 capsule by ity of capsule 00:00: mouth in [place] [address] the Medical morning Branch and 1 capsule in the evening. docusate 2021-0 Yes [id number] 100mg Take 1 U nivers 100 mg 8-02 capsule by ity of capsule 00:00: mouth in [place] 00 the Medical morning Branch and 1 capsule in the evening. docusate 2-0 Yes [id number] 100mg Take 1 U nivers 100 mg 8-02 capsule by ity of capsule 00:00: mouth in [place] 00 the Medical morning Branch and 1 capsule in the evening. docusate 2021-0 Yes [id number] 100mg Take 1 U nivers 100 mg 8-02 capsule by ity of capsule 00:00: mouth in [place] 00 the Medical morning Branch and 1 capsule in the evening. docusate 2-0 Yes [id number] 100mg Take 1 U nivers 100 mg 8-02 capsule by ity of capsule 00:00: mouth in [place] [address] the Medical morning Branch and 1 capsule in the evening. docusate 2-0 Yes [id number] 100mg Take 1 U nivers 100 mg 8-02 capsule by ity of capsule 00:00: mouth in [place] [address] the Medical morning Branch and 1 capsule in the evening. docusate 2-0 Yes [id number] 100mg Take 1 U nivers 100 mg 8-02 capsule by ity of capsule 00:00: mouth in [place] 00 the Medical morning Branch and 1 capsule in the evening. docusate 2-0 Yes [id number] 100mg Take 1 U nivers 100 mg 8-02 capsule by ity of capsule 00:00: mouth in [place] 00 the Medical morning Branch and 1 capsule in the evening. docusate 2-0 Yes [id number] 100mg Take 1 U nivers 100 mg 8-02 capsule by ity of capsule 00:00: mouth in [place] [address] the Medical morning Branch and 1 capsule in the evening. docusate 2021-0 Yes [id number] 100mg Take 1 U nivers 100 mg 8-02 capsule by ity of capsule 00:00: mouth in [place] [address] the Medical morning Branch and 1 capsule in the evening. docusate 2021-0 Yes [id number] 100mg Take 1 U nivers 100 mg 8-02 capsule by ity of capsule 00:00: mouth in [place] [address] the Medical morning Branch and 1 capsule in the evening. docusate 2021-0 Yes [id number] 100mg Take 1 U nivers 100 mg 8-02 capsule by ity of capsule 00:00: mouth in [place] [address] the Medical morning Branch and 1 capsule in the evening. docusate 2021-0 Yes [id number] 100mg Take 1 U nivers 100 mg 8-02 capsule by ity of capsule 00:00: mouth in [place] [address] the Medical morning Branch and 1 capsule in the evening. docusate 2021-0 Yes [id number] 100mg Take 1 U nivers 100 mg 8-02 capsule by ity of capsule 00:00: mouth in [place] [address] the Medical morning Branch and 1 capsule in the evening. docusate 2-0 Yes [id number] 100mg Take 1 U nivers 100 mg 8-02 capsule by ity of capsule 00:00: mouth in [place] [address] the Medical morning Branch and 1 capsule in the evening. docusate 2-0 Yes [id number] 100mg Take 1 U nivers 100 mg 8-02 capsule by ity of capsule 00:00: mouth in [place] [address] the Medical morning Branch and 1 capsule in the evening. docusate 2-0 Yes [id number] 100mg Take 1 U nivers 100 mg 8-02 capsule by ity of capsule 00:00: mouth in [place] 00 the Medical morning Branch and 1 capsule in the evening. docusate 2021-0 Yes [id number] 100mg Take 1 U nivers 100 mg 8-02 capsule by ity of capsule 00:00: mouth in [place] 00 the Medical morning Branch and 1 capsule in the evening. docusate 2021-0 Yes [id number] 100mg Take 1 U nivers 100 mg 8-02 capsule by ity of capsule 00:00: mouth in [place] 00 the Medical morning Branch and 1 capsule in the evening. docusate 0 Yes [id number] 100mg Take 1 U nivers 100 mg 8-02 capsule by ity of capsule 00:00: mouth in [place] 00 the Medical morning Branch and 1 capsule in the evening. docusate 0 Yes [id number] 100mg Take 1 U nivers 100 mg 8-02 capsule by ity of capsule 00:00: mouth in [place] 00 the Medical morning Branch and 1 capsule in the evening. phenoL 1.4 No [id number] 1{spray Take 1 Univers % spray 09-06 } [place] by ity of 00:00: 00:00 mouth as [place] 00 :00 needed for Medical Sore Branch throat. ascorbic 0 2021- No [id number] 500mg Take 1 Univers acid, 09-06 tablet by ity of vitamin C, 00:00: 04:59 mouth in [place] 500 mg 00 :00 the Medical tablet morning Branch and 1 tablet in the evening. Do all this for 5 days. ascorbic 0 No [id number] 500mg Take 1 Univers acid, 09-06-08 tablet by ity of vitamin C, 00:00: 04:59 mouth in [place] 500 mg 00 :00 the Medical tablet morning Branch and 1 tablet in the evening. Do all this for 5 days. dexAMETHaso 0 No [id number] 6mg Take 1 Univers ne 6 mg 09-06 tablet by ity of tablet 00:00: 00:00 mouth in [place] 00 :00 the Medical morning Branch for [...] Yes 100mg 100 mg, Unive rs (COLACE) 8 Oral, BID, ity o f capsule 100 01:00: First dose [place] mg 00 on [place] Medical 09/04/21 at Branch 2000, Until Discontinu ed, Routine polyethylen Yes 17g 17 g, Unive rs e glycol 09-04 Oral, ity of 3350 powder 23:30: DAILY, [place] 17 g 00 First dose Medical on [facility] 09/04/21 at 1830, Until Discontinu ed, Routine HYDROcodone Yes 1{tbl} 1 tablet, Univers -acetaminop 09-04 Oral, ity of hen (NORCO) 21:54: Q6HPRN, [place] 10-325 mg 05 Starting Medica l tablet 1 on [facility] tablet 09/04/21 at 1654, Until Discontinu ed, Routine, Pain (scale 4-6) HYDROmorpho 2021- No .5mg 0.5 mg, Un jb ne 09-04 0802 Slow IV ity of (DILAUDID) 21:53: 21:52 Push, [place] injection 53 :53 Q4HPRN, Medical 0.5 mg Starting Branch on [place] 09/04/21 at 1653, Until Sun09/06/21 at 1652, [...] [place] mg 00 First dose Medical on [facility] 09/04/21 at 0930, Until Discontinu ed, Routine HYDROmorpho 2021- No 1mg 1 mg, Slow Univers ne 09-04 IV Push, ity of (DILAUDID) 11:45: 10:54 ONCE, 1 [place] injection 1 00 :00 dose, On Medi kandis mg [facility] 09/04/21 at 0645, Routine
Use approved by (Faculty): ADC PROVIDER FENTanyl PF No 25ug 25 mcg, Un jb (SUBLIMAZE 09-03 Slow IV ity o f (PF)) 20:45: 19:40 Push, [place] injection 00 :00 ONCE, 1 Medical 25 mcg dose, On Branch [facility] 09/03/21 at 1545, Routine enoxaparin Yes 40mg 40 mg, Unive rs (LOVENOX) 09-03 Subcutaneo ity of injection 20:15: us, Q24H, [place] 40 mg 00 First dose Medical on [facility] Branch 09/03/21 at 1515, Until Discontinu ed, [...]
Use approved by (Faculty): ADC PROVIDER HYDROcodone 2021-0 2021- No 1{tbl} 1 tablet, Univers -acetaminop [...] at 0900, Until Discontinu ed, Routine aspirin 0 Yes 81mg 81 mg, Univers chewable 09-02 Oral, ity of tablet 81 14:00: DAILY, [place] mg 00 First dose Medical on Fri Branch 09/02/21 at 0900, Until Discontinu ed, Routine ascorbic 0 Yes 500mg 500 mg, Unive rs acid 09-02 Oral, BID, ity of (vitamin C) 13:00: First dose [place] (VITAMIN C) 00 on Sun Medica l tablet 500 09/02/21 at Bra n[place] mg 0800, Until Discontinu ed, Routine metoprolol 2021-0 Yes 25mg 25 mg, Unive rs tartrate 09-02 Oral, BID, ity o f (LOPRESSOR) 13:00: First dose [place] tablet 25 00 on Fri Medical mg 09/02/21 at Branch 0800, Until Discontinu ed, Routine fluticasone 2021-0 Yes 1{puff} 1 Puff, [facility] propion-tavia 09-02 Inhalation it y of meteroL 06:15: , Q12H, [place] (ADVAIR) 00 First dose Medic al 250-50 (after Branch mcg/dose last inhalation modificati disk 1 Puff on) on Sun09/02/21 at 0115, Until Discontinu ed, Routine melatonin 2021-0 Yes 6mg 6 mg, [facility] (MELATIN) 09-02 Oral, QHS, ity of tablet 6 mg 06:00: First dose [place] 00 on Fri Medical 09/02/21 at Branch 0100, Until Discontinu ed, Routine guaiFENesin 0 Yes 200mg 200 mg, Un jb (FENESIN 09-02 Oral, ity of IR) tablet 05:50: Q4HPRN, [place] 200 mg 35 Starting Medical on Fri Branch 09/02/21 at 0050, Until Discontinu ed, Routine, Cough HYDROcodone 2021-2021- No 1{tbl} 1 tablet, Univers -acetaminop 09-02 [...] 09/01/21 at 2145, Routine iopamidol 2021- No [id number] 70mL 70 mL, Univers (ISOVUE 09-02 Intravenou [...] solution [place] Branch 0.5 mg 09/01/21 at 2000, EILEEN levalbutero 0 2021- No 1.25mg 1.25 mg, Univers l (XOPENEX) 09-02 Inhalation i ty of nebulizer 00:30: 23:31 , ONCE, 1 [place] solution 00 :00 dose, On Medical 1.25 mg [place] Branch 09/01/21 at 1930, Routine ipratropium 2021-0 202- No .5mg 0.5 mg, Un jb (ATROVENT) 09-02 Inhalation it y of 0.02 % 00:30: 23:31 , ONCE, 1 [place] nebulizer 00 :00 dose, On Medica l [...] ity of PF 23:30: 23:44 ONCE, 1 [place] injection 6 00 :00 dose, On Medi kandis mg Leah Branch 09/01/21 at 1830, 1 mL gabapentin Yes 400mg [id number] Take 400 Methodi (NEURONTIN) 5-13 [id number] mg by s t 400 mg 13:46: 3D mouth in Hosp[facility] capsule 55 the l morning and 400 mg at noon and 400 mg before bedtime. HYDROcodone Yes [id number] 1{tbl} Q.[id number] Take 1 [facility]i -acetaminop 5-[id number] [facility] (NORCO) 13:46: 3D mouth in [facility] 5-325 mg 55 the l per tablet morning and 1 tablet at noon and 1 tablet before bedtime.[facility] [place] [facility] [place] pain. fluticasone Yes 1{puff} Q.5D Inhale 1 [...] 13:46: daily. [facility]osp[facility] tablet 55 l metoprolol 0 Yes 25mg QD Take 25 mg M [...] route. ethambutoL 2021- No ethambutol Methodi (MYAMBUTOL) 3-10 03-[address] 400 MG 08:49: 00:00 tablet [facility]ospita tablet 36 :00 Take by l oral route. aclidinium 2021- No Q12H every 12 Me thodi bromide 400 3-10 -10 (twelve) st mcg/actuati 08:48: 00:00 hours. Hos [place] on aerosol 00 :00 l powdr breath activated fluticasone 2021- No 1{puff} Inhale 1 [facility]i furoate-laura 3-10 -[address] anteroL 08:47: 00:00 [facility]ospita (Breo 09 :00 l Ellipta) 200-25 mcg/dose blister with device powder for inhalation montelukast 2021- No montelukas [facility]i (SINGULAIR) 3-10 -[address] 10 mg 08:46: 00:00 tablet Hospita tablet 38 :00 Take 1 l tablet every day by oral route. predniSONE 2021- No 20mg QD Take 20 mg [facility] (DELTASONE) 3-10 -[address] 10 mg 08:46: 00:00 [...] 2021- No moxifloxac Methodi n (AVELOX) 3-10 03-[address] 400 mg 08:45: [...] oral only, ER 12hr codeine-[place] 2021- [place] [id number] 5mL Q.[id number] Take 5 mL Methodi ifenesin 04-14 [id number] [address] mouth 3 [address] (GUAIFENESI 08:41: 00:00 [...] Hospita 13 :00 l calcium 2022- No [id number] 1{tbl} Q.5D Take 1 M ethodi carbonate-v 04-[address] itamin D3 00:00: 05:59 mouth 2 [facility]osp nu[facility] 500 mg-200 00 :00 (two) l unit per times a tablet day with meals. calcium 2022- No [id number] 1{tbl} Q.5D Take 1 M ethodi carbonate-v 3-11 07-[address] itamin D3 00:00: 05:59 mouth 2 [facility]osp [facility] 500 mg-200 00 :00 (two) l unit per times a tablet day with meals. calcium 2022- No [id number] 1{tbl} Q.5D Take 1 M ethodi carbonate-v 3-11 07-[address] itamin D3 00:00: 05:59 mouth 2 [facility]osp [facility] 500 mg-200 00 :00 (two) l unit per times a tablet day with meals. calcium 2021-0 2022- No [id number] 1{tbl} Q.5D Take 1 M ethodi carbonate-v 3-11 07-[address] itamin D3 00:00: 05:59 mouth 2 [facility]osp [facility] 500 mg-200 00 :00 (two) l unit per times a tablet day with meals. calcium 2021-0 2022- No [id number] 1{tbl} Q.5D Take 1 M ethodi carbonate-v 3-11 07-[address] itamin D3 00:00: 05:59 mouth 2 [facility] 500 mg-200 00 :00 (two) l unit per times a tablet day with meals. metoprolol 2021-0 Yes 25mg Take 25 mg U nivers tartrate 25 2-10 by mouth 2 it y of mg tablet 03:15: (two) [place] [address] times Medical daily. Branch gabapentin 2021-0 Yes 400mg Take 400 Un jb 400 mg 2-10 mg by ity of capsule 03:15: mouth 3 [place] [address] (three) Medical times [place] daily. pantoprazol 2021-0 Yes 40mg Take 40 mg Univers e 2-10 by mouth ity of (PROTONIX) 03:15: daily. [place] 40 mg 04 Medical tablet Branch aspirin 81 2021-0 Yes 81mg Take 81 mg U nivers mg chewable 2-10 by mouth ity of tablet 03:15: daily. [place] [address] Medical Branch melatonin 3 2021-0 Yes 6mg Take 6 mg U nivers mg tablet 2-10 by mouth ity of 03:15: at [place] [address] bedtime. Medical Branch metoprolol 2021-0 Yes 25mg Take 25 mg U nivers tartrate 25 2-10 by mouth 2 it y of mg tablet 03:15: (two) [place] [address] times Medical daily. Branch gabapentin 2-0 Yes 400mg Take 400 Un jb 400 mg 2-10 mg by ity of capsule 03:15: mouth 3 [place] 04 (three) Medical times Branch daily. pantoprazol 2-0 Yes 40mg Take 40 mg Univers e 2-10 by mouth ity of (PROTONIX) 03:15: daily. [place] 40 mg EC 04 Medical tablet Branch aspirin 81 2021-0 Yes 81mg Take 81 mg U nivers mg chewable 2-10 by mouth ity of tablet 03:15: daily. [place] Medical Branch melatonin 3 2021-0 Yes 6mg Take 6 mg U nivers mg tablet 2-10 by mouth ity of 03:15: at [place] [address] bedtime. Medical Branch metoprolol 2-0 Yes 25mg Take 25 mg U nivers tartrate 25 2-10 by mouth 2 it y of mg tablet 03:15: (two) 04 times Medical daily. Branch gabapentin 2021-0 Yes 400mg Take 400 Un jb 400 mg 2-10 mg by ity of capsule 03:15: mouth 3 [place] [address] (three) Medical times [place] daily. pantoprazol 2-0 Yes 40mg Take 40 mg Univers e 2-10 by mouth ity of (PROTONIX) 03:15: daily. [place] 40 mg EC 04 Medical tablet Branch aspirin 81 2021-0 Yes 81mg Take 81 mg U nivers mg chewable 2-10 by mouth ity of tablet 03:15: daily. [place] [address] Medical Branch melatonin 3 2021-0 Yes 6mg Take 6 mg U nivers mg tablet 2-10 by mouth ity of 03:15: at [place] [address] bedtime. Medical Branch metoprolol 2021-0 Yes 25mg Take 25 mg U nivers tartrate 25 2-10 by mouth 2 it y of mg tablet 03:15: (two) [place] [address] times Medical daily. Branch gabapentin 2-0 Yes 400mg Take 400 Un jb 400 mg 2-10 mg by ity of capsule 03:15: mouth 3 [place] [address] (three) Medical times [place] daily. pantoprazol 2-0 Yes 40mg Take 40 mg Univers e 2-10 by mouth ity of (PROTONIX) 03:15: daily. [place] 40 mg EC 04 Medical tablet Branch aspirin 81 2021-0 Yes 81mg Take 81 mg U nivers mg chewable 2-10 by mouth ity of tablet 03:15: daily. [place] [address] Medical Branch melatonin 3 2021-0 Yes 6mg Take 6 mg U nivers mg tablet 2-10 by mouth ity of 03:15: at [place] [address] bedtime. Medical Branch metoprolol 2-0 Yes 25mg Take 25 mg U nivers tartrate 25 2-10 by mouth 2 it y of mg tablet 03:15: (two) [place] [address] times Medical daily. Branch gabapentin 2-0 Yes 400mg Take 400 Un jb 400 mg 2-10 mg by ity of capsule 03:15: mouth 3 [place] 04 (three) Medical times [place] daily. pantoprazol 2-0 Yes 40mg Take 40 mg Univers e 2-10 by mouth ity of (PROTONIX) 03:15: daily. [place] 40 mg EC 04 Medical tablet Branch aspirin 81 2021-0 Yes 81mg Take 81 mg U nivers mg chewable 2-10 by mouth ity of tablet 03:15: daily. [place] [address] Medical Branch melatonin 3 2021-0 Yes 6mg Take 6 mg U nivers mg tablet 2-10 by mouth ity of 03:15: at [place] [address] bedtime. Medical Branch metoprolol 2021-0 Yes 25mg Take 25 mg U nivers tartrate 25 2-10 by mouth 2 it y of mg tablet 03:15: (two) [place] [address] times Medical daily. Branch gabapentin 2021-0 Yes 400mg Take 400 Un jb 400 mg 2-10 mg by ity of capsule 03:15: mouth 3 [place] [address] (three) Medical times [place] daily. pantoprazol 2-0 Yes 40mg Take 40 mg Univers e 2-10 by mouth ity of (PROTONIX) 03:15: daily. [place] 40 mg EC 04 Medical tablet Branch aspirin 81 2021-0 Yes 81mg Take 81 mg U nivers mg chewable 2-10 by mouth ity of tablet 03:15: daily. [place] [address] Medical Branch melatonin 3 2021-0 Yes 6mg Take 6 mg U nivers mg tablet 2-10 by mouth ity of 03:15: at [place] [address] bedtime. Medical Branch metoprolol 2-0 Yes 25mg Take 25 mg U nivers tartrate 25 2-10 by mouth 2 it y of mg tablet 03:15: (two) [place] [address] times Medical daily. Branch gabapentin 2-0 Yes 400mg Take 400 Un jb 400 mg 2-10 mg by ity of capsule 03:15: mouth 3 [place] 04 (three) Medical times [place] daily. pantoprazol 2022-0 Yes 40mg Take 40 mg Univers e 2-10 by mouth ity of (PROTONIX) 03:15: daily. [place] 40 mg EC 04 Medical tablet Branch aspirin 81 Yes 81mg Take 81 mg U nivers mg chewable 2-10 by mouth ity of tablet 03:15: daily. [place] 04 Medical Branch melatonin 3 Yes 6mg Take 6 mg U nivers mg tablet 2-10 by mouth ity of 03:15: at [place] 04 bedtime. Medical Branch fluticasone Yes 1{puff} Inhale [...] [place] 10 times Medical daily. Branch gabapentin Yes 400mg Take 400 Un jb 400 mg 2-08 mg by ity of capsule 15:50: mouth 3 [place] 10 (three) Medical times Branch daily. pantoprazol Yes 40mg Take 40 mg Univers e 2-08 by mouth ity of (PROTONIX) 15:50: daily. [place] 40 mg EC 10 Medical tablet Branch aspirin 81 Yes 81mg Take 81 mg U nivers mg chewable 2-08 by mouth ity of tablet 15:50: daily. [place] 10 Medical Branch melatonin 3 Yes 6mg Take 6 mg U nivers mg tablet 2-08 by mouth ity of 15:50: at [place] 10 bedtime. Medical Branch fluticasone Yes 1{puff} [...] [facility] ers acetate 2-08 mouth 2 ity of [...] [facility] ers acetate 2-08 mouth 2 ity of [...] [facility] ers acetate 2-08 mouth 2 ity of [...] [facility] ers acetate 2-08 mouth 2 ity of [...] [facility] ers acetate 2-08 mouth 2 ity of [...] Discontinu ed, Routine, Gas loperamide 2021-0 Yes [id number] 2mg Take 1 U nivers 2 mg 2-08 capsule by ity of capsule 00:00: mouth [place] 00 every 4 Medical (four) Branch hours as needed for Diarrhea. simethicone 2021-0 Yes [id number] 125mg Take 1 Univers 125 mg 2-08 tablet by ity of chewable 00:00: mouth 3 [place] tablet 00 (three) Medical times Branch daily as needed for Gas. loperamide 2021-0 Yes [id number] 2mg Take 1 U nivers 2 mg 2-08 capsule by ity of capsule 00:00: mouth [place] 00 every 4 Medical (four) Branch hours as needed for Diarrhea. simethicone 2021-0 Yes [id number] 125mg Take 1 Univers 125 mg 2-08 tablet by ity of chewable 00:00: mouth 3 [place] tablet 00 (three) Medical times Branch daily as needed for Gas. loperamide 2022-0 Yes [id number] 2mg Take 1 U nivers 2 mg 2-08 capsule by ity of capsule 00:00: mouth [place] 00 every 4 Medical (four) Branch hours as needed for Diarrhea. simethicone 2022-0 Yes [id number] 125mg Take 1 Univers 125 mg 2-08 tablet by ity of chewable 00:00: mouth 3 [place] tablet 00 (three) Medical times Branch daily as needed for Gas. loperamide 2022-0 Yes [id number] 2mg Take 1 U nivers 2 mg 2-08 capsule by ity of capsule 00:00: mouth [place] 00 every 4 Medical (four) Branch hours as needed for Diarrhea. simethicone 2022-0 Yes [id number] 125mg Take 1 Univers 125 mg 2-08 tablet by ity of chewable 00:00: mouth 3 [place] tablet 00 (three) Medical times Branch daily as needed for Gas. loperamide 2-0 Yes [id number] 2mg Take 1 U nivers 2 mg 2-08 capsule by ity of capsule 00:00: mouth [place] 00 every 4 Medical (four) Branch hours as needed for Diarrhea. simethicone 2022-0 Yes [id number] 125mg Take 1 Univers 125 mg 2-08 tablet by ity of chewable 00:00: mouth 3 [place] tablet 00 (three) Medical times Branch daily as needed for Gas. loperamide 2-0 Yes [id number] 2mg Take 1 U nivers 2 mg 2-08 capsule by ity of capsule 00:00: mouth [place] 00 every 4 Medical (four) Branch hours as needed for Diarrhea. simethicone 2022-0 Yes [id number] 125mg Take 1 Univers 125 mg 2-08 tablet by ity of chewable 00:00: mouth 3 [place] tablet 00 (three) Medical times Branch daily as needed for Gas. loperamide 2022-0 Yes [id number] 2mg Take 1 U nivers 2 mg 2-08 capsule by ity of capsule 00:00: mouth [place] 00 every 4 Medical (four) Branch hours as needed for Diarrhea. simethicone 2022-0 Yes [id number] 125mg Take 1 Univers 125 mg 2-08 tablet by ity of chewable 00:00: mouth 3 [place] tablet 00 (three) Medical times Branch daily as needed for Gas. loperamide 2022-0 Yes [id number] 2mg Take 1 U nivers 2 mg 2-08 capsule by ity of capsule 00:00: mouth [place] 00 every 4 Medical (four) Branch hours as needed for Diarrhea. simethicone Yes [id number] 125mg Take 1 [facility] 125 mg 2-08 tablet by ity of chewable 00:00: mouth 3 [place] tablet 00 (three) Medical times Branch daily as needed for Gas. loperamide 2021- No [id number] 2mg Take 1 Univers 2 mg 2-08 -29 capsule by ity of capsule 00:00: 00:00 mouth [place] 00 :00 every 4 Medical (four) Branch hours as needed for Diarrhea. simethicone 2021- No [id number] 125mg Take 1 [facility] 125 mg 2-08 -29 tablet by ity of chewable 00:00: 00:00 mouth 3 [place] tablet 00 :00 (three) Medical times Branch daily as needed for Gas. lactobacill 2021- No [id number] .5mg Take 1 Univers us 2-08 03-11 tablet by ity of acidophilus 00:00: 05:59 mouth 2 [place] 00 :00 (two) Medical times Branch daily for 30 days. lactobacill 2021- No [id number] .5mg Take 1 Univers us 2-08 03-11 tablet by ity of acidophilus 00:00: 05:59 mouth 2 [place] 00 :00 (two) Medical times Branch daily for 30 days. lactobacill 2021- No [id number] .5mg Take 1 Univers us 2-08 03-11 tablet by ity of acidophilus 00:00: 05:59 mouth 2 [place] 00 :00 (two) Medical times Branch daily for 30 days. lactobacill 2021- No [id number] .5mg Take 1 Univers us 2-08 03-11 tablet by ity of acidophilus 00:00: 05:59 mouth 2 [place] 00 :00 (two) Medical times Branch daily for 30 days. predniSONE 2- No [id number] Take 4 Univers 10 mg 2-08 02-24 tablets by ity of tablet 00:00: 05:59 mouth [place] 00 :00 daily for Medical 3 days, Branch THEN 3 tablets daily for 3 days, THEN 2 tablets daily for 3 days, THEN 1 tablet daily for 3 days, THEN 0.5 tablets daily for 3 days. predniSONE 2021-2021- No [id number] Take 4 Univers 10 mg 03-15 tablets by ity of tablet 00:00: 05:59 mouth [place] 00 :00 daily for Medical 3 days, Branch THEN 3 tablets daily for 3 days, THEN 2 tablets daily for 3 days, THEN 1 tablet daily for 3 days, THEN 0.5 tablets daily for 3 days. predniSONE 2021-2021- No [id number] Take 4 Univers 10 mg 03-15 tablets by ity of tablet 00:00: 05:59 mouth [place] 00 :00 daily for Medical 3 days, Branch THEN 3 tablets daily for 3 days, THEN 2 tablets daily for 3 days, THEN 1 tablet daily for 3 days, THEN 0.5 tablets daily for 3 days. levoFLOXaci 2021- No [id number] 750mg Take 1 Univers n 750 mg 03-15 tablet by ity o f tablet 00:00: 05:59 mouth [place] 00 :00 every 24 Medical (twenty- [place] ur) hours for 5 days. levoFLOXaci 2021- No [id number] 750mg Take 1 Univers n 750 mg 03-15 tablet by ity o f tablet 00:00: 05:59 mouth [place] 00 :00 every 24 Medical (- [facility]) hours for 5 days. KCL 2021- No [...] First dose [place] tablet 0.5 00 on [place] Medical mg 03/13/21 at Branch 1999, Until Discontinu ed, Routine loperamide 0 Yes 2mg 2 mg, Univer s (IMODIUM 206 Oral, ity of A-D) 20:56: Q4HPRN, [place] capsule 2 35 Starting Medica l mg on [place] Branch 03/13/21 at 1456, Until Discontinu ed, Routine, Diarrhea KCL 2021-0 202- No 40meq 40 mEq, Univers (KLOR-CON 2-06 02-06 Oral, ity of M20) tablet 15:30: 15:24 ONCE, 1 [place] 40 mEq 00 :00 dose, On Medical 03/13/21 Branch at 0930, Routine HYDROcodone 0 Yes 1{tbl} 1 tablet, Univers -acetaminop 06 Oral, ity of hen (NORCO) 01:15: Q4HPRN, [place] 10-325 mg 00 Starting Medica l tablet 1 on [facility] Branch tablet 03/12/21 at 1915, Until Discontinu ed, Routine, Pain (scale 4-6) docusate Yes 100mg 100 mg, Unive rs (COLACE) 2-05 Oral, ity of capsule 100 02:00: DAILY, [place] mg 00 First dose Medical on [place] Branch 03/11/21 at 2000, Until Discontinu ed, Routine metoprolol Yes 25mg 25 mg, Unive rs tartrate 2-04 Oral, ity of (LOPRESSOR) 15:00: DAILY, [place] tablet 25 00 First dose Medi kandis mg (after Branch last modificati on) on Sun03/11/21 at 0900, Until Discontinu ed, Routine flecainide Yes 50mg 50 mg, Unive rs [...] 750 mg U nivers 750 mg in 03-11- (rounded ity o f NaCl 0.9% 07:30: [...]
Durat ion of therapy: 7 days HYDROmorpho 0 2021- No .5mg 0.5 mg, Un jb ne 2- 02-06 Slow IV ity of (DILAUDID) 06:39: 06:38 Push, [place] injection 34 :34 Q4HPRN, Medical 0.5 mg Starting Branch on Sun03/11/21 at 0039, Until 03/13/21 at 0038, Routine, Pain (scale 7-10)
U se approved by (Faculty): ADC PROVIDER melatonin Yes 6mg 6 mg, Univers (MELATIN) 2-04 Oral, QHS, ity of tablet 6 mg 03:00: First dose [place] 00 on [facility] Medical 03/10/21 at Branch 2100, Until Discontinu ed, Routine fluticasone Yes 1{puff} 1 Puff, Univers propion-tavia 2-04 Inhalation it y of meteroL 02:00: , Q12H, [place] (ADVAIR) 00 First dose Medic al 250-50 on [facility] Branch mcg/dose 03/10/21 at inhalation 2000, disk 1 Puff Until Discontinu ed, Routine
Use approved by (Faculty and pager): ADC PROVIDER enoxaparin Yes 30mg 30 mg, Unive rs (LOVENOX) 2-03 Subcutaneo ity of injection 23:00: us, DAILY, [place] 30 mg 00 First dose Medical on [place] Branch 03/10/21 at 1700, Until Discontinu ed, Routine HYDROcodone 2021-0 2021- No 1{tbl} 1 tablet, Univers -acetaminop 2-03 02-06 Oral, ity of hen (NORCO) 22:11: 01:14 Q6HPRN, [place] 10-325 mg 49 :28 Starting Medica l tablet 1 on [facility] Branch tablet 03/10/21 at 1611, Until 03/12/21 at 1914, Routine, Pain (scale 4-6) acetaminoph Yes 650mg 650 mg, Un jb en 03 Oral, ity of (TYLENOL) 21:43: Q6HPRN, [place] tablet 650 47 Starting Medic al mg on [place] Branch 03/10/21 at 1543, Until Discontinu ed, Routine, Pain (scale 1-3) methylpredn 2021- No 125mg 125 mg, U nivers isolone sod 03-10 Intravenou i ty of succ 18:00: 02:02 s, Q6H, [place] (SOLU-MEDRO 00 :25 First dose Me dical L) on [place] Branch injection 03/10/21 at 125 mg 1200, Until Discontinu ed, Routine azithromyci 2021- No 500mg 500 mg, IV Univers n 03-1004 Piggyback, ity of (ZITHROMAX) 17:30: 07:24 Q24H ABX, [place] 500 mg in 00 :33 First dose Medi kandis NaCl 0.9% on [facility] Branch (NS) 250 mL 03/10/21 at VIAL-MATE [...] 00 :00 dose, On Medi kandis mg [facility] 03/10/21 Branch at 1130, EILEEN FENTanyl PF 2021- No 25ug 25 mcg, Un jb (SUBLIMAZE 03-10 Slow IV ity o f (PF)) 17:30: 16:30 Push, [place] injection 00 :00 ONCE, 1 Medical 25 mcg dose, On Branch Leah 03/10/21 at 1130, STAT HYDROcodone 2021- No 1{tbl} 1 tablet, Univers -acetaminop 03-10 Oral, ity of hen (NORCO) 17:30: 16:29 ONCE, 1 [place] 10-325 mg 00 :00 dose, On Medica l tablet 1 [facility] 03/10/21 Branc h tablet at 1130, Routine cefTRIAXone No 1000mg 1,000 mg, Univers (ROCEPHIN) 03-10 IV ity of 1,000 mg in 17:30: 17:00 [facility], [place] NaCl 0.9% 00 :00 ONCE, 1 Medical (NS) 50 mL dose, On Branc h MINI-BAG [facility] 03/10/21 at 1130, Administer over 30 Minutes, 50 mL
R moe for Anti-Infec tive: Empiric Therapy for Suspected Infection< br>Empiric Therapy Site: Respirator y
Durat ion of therapy: 72 hours pantoprazol 2020-02 No [id number] 40mg Take 1 Univers e 40 mg EC 03-18 tablet by ity of tablet 00:00: 05:59 mouth [place] 00 :00 daily for Medical 30 days. Branch predniSONE 2020-02 No [id number] 20mg Take 1 Univers 20 mg 03-18 [...] [facility] ers acetate 2-10 mouth 2 ity of [...] [facility] ers acetate 2-10 mouth 2 ity of (FLECAINIDE 15:23: (two) [place] ORAL) 08 times Medical daily. Branch HYDROcodone 2020-02 Yes 1{tbl} Take 1 Un jb -acetaminop 2-10 tablet by ity of hen (NORCO) 15:23: mouth 3 [place] 5-325 mg 08 (three) Medical tablet times Branch daily. gabapentin 2020-02- No [id number] 300mg Take 1 Univers 300 mg 2-10 01-10 capsule by ity of capsule 00:00: 05:59 mouth 3 [place] 00 :00 (three) Medical times Branch daily for 30 days. melatonin 3 2020-02- No [id number] 3mg Take 1 Univers mg tablet 2-10 01-10 tablet by ity of 00:00: 05:59 mouth at [place] 00 :00 bedtime Medical for 30 Branch days. metoprolol 2020-02- No [id number] 50mg Take 1 Univers succinate 2-10 01-10 tablet by ity of XL 50 mg 24 00:00: 05:59 mouth [place] hr tablet 00 :00 every 12 Medica l (twelve) Branch hours for 30 days. atorvastati 2020-02- No [id number] 20mg Take 1 Univers n 20 mg 2-10 01-10 tablet by ity of tablet 00:00: 05:59 mouth at [place] 00 :00 bedtime Medical for 30 Branch days. azithromyci 2020-02- No [id number] 500mg Take 1 Univers n 500 mg 2-10 12-18 tablet by ity o f tablet 00:00: 05:59 mouth [place] 00 :00 daily for Medical 7 days. [place] docusate 2020-02- No [id number] 100mg Take 1 Univers 100 mg 2-10 12-16 capsule by ity of capsule 00:00: 05:59 mouth 2 [place] 00 :00 (two) Medical times [place] daily for 5 days. aspirin 81 2020-02- No [id number] 81mg Take 1 Univers mg chewable 02-27 12-24 tablet by it y of tablet [...] enteric 26 :00 l coated tablet flecainide 2020-02- No 50mg Q.5D Take 1 Meth jill [...] (two) times a day. cholecalcif 2020-02 Yes [id number] Take 2 Univers usha, 0-24 tablets by ity of vitamin D3, 00:00: mouth [place] 25 mcg 00 daily. Medical (1,000 Branch unit) tablet cholecalcif 2020-02 Yes [id number] Take 2 Univers usha, 0-24 tablets by ity of vitamin D3, 00:00: mouth [place] 25 mcg 00 daily. Medical (1,000 Branch unit) tablet cholecalcif 2020- Yes [id number] Take 2 Univers usha, 0-24 tablets by ity of vitamin D3, 00:00: mouth [place] 25 mcg 00 daily. Medical (1,000 Branch unit) tablet cholecalcif 2020-02- No 2{tbl} QD Take 2 M ethodi usha, 0-24 03-[address] vitamin D3, 00:00: 00:00 mouth [facility]osp [facility] 1,000 unit 00 :00 daily. l tablet cholecalcif 2020-02- No [id number] Take 2 Univers usha, 0-24 02-03 tablets [...] No 10mL Take 10 mL Univers ifenesin 0 02-03 by mouth ity of 10-100 mg/5 00:00: 00:00 every 6 [place] mL oral 00 :00 (six) Medical solution hours as Branch needed for Cough. Indication s: severe cough ipratropium 2021- No [id number] .5mg Q6H Take 2.5 Methodi (ATROVENT) 8- [...] :00 by mouth l tablet daily. PARoxetine 2017-02 No 1 capsule M ethodi (PAXIL) 10 2 03-[address] MG tablet 00:00: 00:00 Hospita 00 :00 l Paroxetine Paroxetine 2017-02 Yes Artur 1 capsule Common Mesylate Mesylate 03-05 [place] at bedtime [facility] 00:00: - 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 route. inhalation route. Immunizations Ordered Immunization Filled Date Status Comments Sour ce Name Immunization Name [facility] >12 YR 2022-01-22 Completed [facility] COVID-19 MRNA 00:00:00 [facility] BIVALENT VACCINATION Zoster 2022-01-22 Completed [facility] 00:00:00 [facility] Remdesivir 2021-09-06 Completed University of 00:00:00 [place] [facility] Remdesivir 2021-09-06 Completed University of 00:00:00 [place] [facility] Remdesivir 2021-09-06 Completed University of 00:00:00 [place] [facility] Remdesivir 2021-09-06 Completed University of 00:00:00 [place] [facility] Remdesivir 2021-09-06 Completed University of 00:00:00 [place] [facility] Remdesivir 2021-09-06 Completed University of 00:00:00 [place] [facility] Remdesivir 2021-09-06 Completed University of 00:00:00 [place] [facility] Remdesivir 2021-09-06 Completed University of 00:00:00 [place] [facility] Remdesivir 2021-09-06 Completed University of 00:00:00 [place] [facility] Remdesivir 2021-09-06 Completed University of 00:00:00 [facility] Remdesivir 2021-09-06 Completed [facility] 00:00:00 [facility] Remdesivir 2021-09-06 Completed [facility] 00:00:00 [facility] Remdesivir 2021-09-06 Completed [facility] 00:00:00 [facility] Remdesivir 2021-09-06 Completed [facility] 00:00:00 [facility] Remdesivir 2021-09-06 Completed [facility] 00:00:00 [facility] Remdesivir 2021-09-06 Completed [facility] 00:00:00 [facility] Remdesivir 2021-09-06 Completed [facility] 00:00:00 [facility] Remdesivir 2021-09-06 Completed [facility] 00:00:00 [facility] Remdesivir 2021-09-06 Completed [facility] 00:00:00 [facility] Remdesivir 2021-09-06 Completed [facility] 00:00:00 [facility] Remdesivir 2021-09-06 Completed [facility] 00:00:00 [facility] Remdesivir 2021-09-06 Completed [facility] 00:00:00 [facility] Remdesivir 2021-09-06 Completed [facility] 00:00:00 [facility] Remdesivir 2021-09-06 Completed [facility] 00:00:00 [facility] Remdesivir 2021-09-06 Completed [facility] 00:00:00 [facility] Remdesivir 2021-09-06 Completed [facility] 00:00:00 [facility] Remdesivir 2021-09-05 Completed [facility] 00:00:00 [facility] Remdesivir 2021-09-05 Completed [facility] 00:00:00 [facility] Remdesivir 2021-09-05 Completed [facility] 00:00:00 [facility] Remdesivir 2021-09-05 Completed [facility] 00:00:00 [facility] Remdesivir 2021-09-05 Completed [facility] 00:00:00 [facility] Remdesivir 2021-09-05 Completed [facility] 00:00:00 [facility] Remdesivir 2021-09-05 Completed [facility] 00:00:00 [facility] Remdesivir 2021-09-05 Completed [facility] 00:00:00 [facility] Remdesivir 2021-09-05 Completed [facility] 00:00:00 [facility] Remdesivir 2021-09-05 Completed [facility] 00:00:00 [facility] Remdesivir 2021-09-05 Completed [facility] 00:00:00 [facility] Remdesivir 2021-09-05 Completed [facility] 00:00:00 [facility] Remdesivir 2021-09-05 Completed [facility] 00:00:00 [facility] Remdesivir 2021-09-05 Completed [facility] 00:00:00 [facility] Remdesivir 2021-09-05 Completed [facility] 00:00:00 [facility] Remdesivir 2021-09-05 Completed [facility] 00:00:00 [facility] Remdesivir 2021-09-05 Completed [facility] 00:00:00 [facility] Remdesivir 2021-09-05 Completed [facility] 00:00:00 [facility] Remdesivir 2021-09-05 Completed [facility] 00:00:00 [facility] Remdesivir 2021-09-05 Completed [facility] 00:00:00 [facility] Remdesivir 2021-09-05 Completed [facility] 00:00:00 [facility] Remdesivir 2021-09-05 Completed [facility] 00:00:00 [facility] Remdesivir 2021-09-05 Completed [facility] 00:00:00 [facility] Remdesivir 2021-09-05 Completed [facility] 00:00:00 [facility] Remdesivir 2021-09-05 Completed [facility] 00:00:00 [facility] Remdesivir 2021-09-05 Completed [facility] 00:00:00 [facility] Remdesivir 2021-09-04 Completed [facility] 00:00:00 [facility] Remdesivir 2021-09-04 Completed [facility] 00:00:00 [facility] Remdesivir 2021-09-04 Completed [facility] 00:00:00 [facility] Remdesivir 2021-09-04 Completed [facility] 00:00:00 [facility] Remdesivir 2021-09-04 Completed [facility] 00:00:00 [facility] Remdesivir 2021-09-04 Completed [facility] 00:00:00 [facility] Remdesivir 2021-09-04 Completed [facility] 00:00:00 [facility] Remdesivir 2021-09-04 Completed [facility] 00:00:00 [facility] Remdesivir 2021-09-04 Completed [facility] 00:00:00 [facility] Remdesivir 2021-09-04 Completed [facility] 00:00:00 [facility] Remdesivir 2021-09-04 Completed [facility] 00:00:00 [facility] Remdesivir 2021-09-04 Completed [facility] 00:00:00 [facility] Remdesivir 2021-09-04 Completed [facility] 00:00:00 [facility] Remdesivir 2021-09-04 Completed [facility] 00:00:00 [facility] Remdesivir 2021-09-04 Completed [facility] 00:00:00 [facility] Remdesivir 2021-09-04 Completed [facility] 00:00:00 [facility] Remdesivir 2021-09-04 Completed [facility] 00:00:00 [facility] Remdesivir 2021-09-04 Completed [facility] 00:00:00 [facility] Remdesivir 2021-09-04 Completed [facility] 00:00:00 [facility] Remdesivir 2021-09-04 Completed [facility] 00:00:00 [facility] Remdesivir 2021-09-04 Completed [facility] 00:00:00 [facility] Remdesivir 2021-09-04 Completed [facility] 00:00:00 [facility] Remdesivir 2021-09-04 Completed [facility] 00:00:00 [facility] Remdesivir 2021-09-04 Completed [facility] 00:00:00 [facility] Remdesivir 2021-09-04 Completed [facility] 00:00:00 [facility] Remdesivir 2021-09-04 Completed [facility] 00:00:00 [facility] Remdesivir 2021-09-03 Completed [facility] 00:00:00 [facility] Remdesivir 2021-09-03 Completed [facility] 00:00:00 [facility] Remdesivir 2021-09-03 Completed [facility] 00:00:00 [facility] Remdesivir 2021-09-03 Completed [facility] 00:00:00 [facility] Remdesivir 2021-09-03 Completed [facility] 00:00:00 [facility] Remdesivir 2021-09-03 Completed [facility] 00:00:00 [facility] Remdesivir 2021-09-03 Completed [facility] 00:00:00 [facility] Remdesivir 2021-09-03 Completed [facility] 00:00:00 [facility] Remdesivir 2021-09-03 Completed [facility] 00:00:00 [facility] Remdesivir 2021-09-03 Completed [facility] 00:00:00 [facility] Remdesivir 2021-09-03 Completed [facility] 00:00:00 [facility] Remdesivir 2021-09-03 Completed [facility] 00:00:00 [facility] Remdesivir 2021-09-03 Completed [facility] 00:00:00 [facility] Remdesivir 2021-09-03 Completed [facility] 00:00:00 [facility] Remdesivir 2021-09-03 Completed [facility] 00:00:00 [facility] Remdesivir 2021-09-03 Completed [facility] 00:00:00 [facility] Remdesivir 2021-09-03 Completed [facility] 00:00:00 [facility] Remdesivir 2021-09-03 Completed [facility] 00:00:00 [facility] Remdesivir 2021-09-03 Completed [facility] 00:00:00 [facility] Remdesivir 2021-09-03 Completed [facility] 00:00:00 [facility] Remdesivir 2021-09-03 Completed [facility] 00:00:00 [facility] Remdesivir 2021-09-03 Completed [facility] 00:00:00 [facility] Remdesivir 2021-09-03 Completed [facility] 00:00:00 [facility] Remdesivir 2021-09-03 Completed [facility] 00:00:00 [facility] Remdesivir 2021-09-03 Completed [facility] 00:00:00 [facility] Remdesivir 2021-09-03 Completed [facility] 00:00:00 [facility] Remdesivir 2021-09-02 Completed [facility] 00:00:00 [facility] Remdesivir 2021-09-02 Completed [facility] 00:00:00 [facility] Remdesivir 2021-09-02 Completed [facility] 00:00:00 [facility] Remdesivir 2021-09-02 Completed [facility] 00:00:00 [facility] Remdesivir 2021-09-02 Completed [facility] 00:00:00 [facility] Remdesivir 2021-09-02 Completed [facility] 00:00:00 [facility] Remdesivir 2021-09-02 Completed [facility] 00:00:00 [facility] Remdesivir 2021-09-02 Completed [facility] 00:00:00 [facility] Remdesivir 2021-09-02 Completed [facility] 00:00:00 [facility] Remdesivir 2021-09-02 Completed [facility] 00:00:00 [facility] Remdesivir 2021-09-02 Completed [facility] 00:00:00 [facility] Remdesivir 2021-09-02 Completed [facility] 00:00:00 [facility] Remdesivir 2021-09-02 Completed [facility] 00:00:00 [facility] Remdesivir 2021-09-02 Completed [facility] 00:00:00 [facility] Remdesivir 2021-09-02 Completed [facility] 00:00:00 [facility] Remdesivir 2021-09-02 Completed [facility] 00:00:00 [facility] Remdesivir 2021-09-02 Completed [facility] 00:00:00 [facility] Remdesivir 2021-09-02 Completed [facility] 00:00:00 [facility] Remdesivir 2021-09-02 Completed [facility] 00:00:00 [facility] Remdesivir 2021-09-02 Completed [facility] 00:00:00 [facility] Remdesivir 2021-09-02 Completed [facility] 00:00:00 [facility] Remdesivir 2021-09-02 Completed [facility] 00:00:00 [facility] Remdesivir 2021-09-02 Completed [facility] 00:00:00 [facility] Remdesivir 2021-09-02 Completed [facility] 00:00:00 [facility] Remdesivir 2021-09-02 Completed [facility] 00:00:00 [facility] Remdesivir 2021-09-02 Completed [facility] 00:[facility]:00 [facility] PFIZER COVID-19 MRNA 2021-07-20 Completed [facility] VACCINATION 00:00:00 Hospital Pneumococcal 2021-07-20 Completed [facility] Conjugate 00:00:00 Hospital Zoster 2021-07-20 Completed [facility] 00:00:00 [facility] PFIZER COVID-19 MRNA 2021-06-29 Completed [facility] VACCINATION 00:00:00 Hospital PFIZER READY TO USE 2021-06-29 Completed [facility] COVID-19 MRNA 00:00:00 Hospital VACCINATION PFIZER COVID-19 MRNA 2021-06-29 Completed [facility] VACCINATION 00:00:00 [facility] Influenza Virus 2019-05-29 Completed Universit y [...] y of Vaccine Quad .5 mL 00:00:00 [facility] Influenza Virus 2019-05-29 Completed [facility] y of Vaccine Quad .5 mL 00:00:00 [facility] Influenza Virus 2019-05-29 Completed [facility] y of Vaccine Quad .5 mL 00:00:00 [facility] Influenza Virus 2019-05-29 Completed [facility] y of Vaccine Quad .5 mL 00:00:00 [facility] Influenza Virus 2019-05-29 Completed [facility] y of Vaccine Quad .5 mL 00:00:00 [facility] 6[facility] MO [facility] (FLUZONE/FLULAVAL/FL UARIX) Influenza, 2019-05-29 Completed [facility] 00:00:00 Hospital Pneumococcal 2017-05-22 Completed [facility] Polysaccharide 00:00:00 Hospital Pneumococcal 2017-05-22 Completed [facility] Polysaccharide 00:00:00 Hospital pneumococcal, pneumococcal, 2016-02-06 Completed [facility] unspecified unspecified 00:00:00 formulation formulation pneumococcal, pneumococcal, 2016-02-06 Completed [facility] unspecified unspecified 00:00:00 formulation formulation Pneumococcal, 2016-02-06 Completed [facility] 00:00:00 Hospital Pneumococcal, 2016-02-06 Completed [facility] Unspecified 00:00:00 [facility] Pneumococcal 2014-11-04 Completed University o f Conjugate 13-[facility]ent 00:00:00 [place] [facility] Pneumococcal 2014-11-04 Completed [facility] o f Conjugate 13-[facility] 00:00:00 [place] [facility] Dam[facility] Pneumococcal 13 2014-11-04 Completed Universit y [...] Completed Universit y of Conjugate, PCV13 00:00:00 [facility] dical (Prevnar 13) Branch Pneumococcal 13 2014-11-04 Completed Universit y of Conjugate, PCV13 00:00:00 [facility] dical (Prevnar 13) Branch Pneumococcal 13 2014-11-04 Completed Universit y of Conjugate, PCV13 00:00:00 [facility] dical (Prevnar 13) Branch Pneumococcal 13 2014-11-04 Completed Universit y of Conjugate, PCV13 00:00:00 [facility] dical (Prevnar 13) Branch Pneumococcal 13 2014-11-04 Completed Universit y of Conjugate, PCV13 00:00:00 [facility] dical (Prevnar 13) Branch Pneumococcal 2014-11-04 Completed [facility] Conjugate 13-[facility] 00:00:00 [facility] Pneumococcal 2014-11-04 Completed [facility] Conjugate 13-[facility] 00:00:00 [facility] Pneumococcal Unknown Completed [facility] o f Conjugate 13-[facility] influenza, influenza, Unknown [facility], injectable, quadrivalent, quadrivalent, preservative free - preservative free 0.5 mL vial(s) - 0.5 mL vial(s) pneumococcal pneumococcal Unknown Completed [facility] conjugate PCV 13 conjugate PCV 13 Pneumococcal Unknown Completed [facility] o f Conjugate 13-[facility]ent [facility] influenza, influenza, Unknown Com[facility], injectable, quadrivalent, quadrivalent, preservative free - preservative free 0.5 mL vial(s) - 0.5 mL vial(s) pneumococcal pneumococcal Unknown Completed [facility] conjugate PCV 13 conjugate PCV 13 Influenza Virus Unknown Completed Universit y of Vaccine Quad .5 mL [facility] 6+ MO Branch (FLUZONE/FLULAVAL/FL UARIX) Pneumococcal 13 Unknown Completed [facility]it y of Conjugate, PCV13 [facility] dical (Prevnar 13) Branch Remdesivir Unknown Completed [facility] Remdesivir Unknown Completed [facility] Remdesivir Unknown Completed [facility] Remdesivir Unknown Completed [facility] Remdesivir Unknown Completed [facility] Influenza Virus Unknown Completed [facility] y of Vaccine Quad .5 mL [facility] 6+ MO Branch (FLUZONE/FLULAVAL/FL UARIX) Pneumococcal 13 Unknown Completed [facility] y of Conjugate, PCV13 [facility] dical (Prevnar 13) Branch Influenza Virus Unknown Completed [facility] y of Vaccine Quad .5 mL [facility] 6[facility] (FLUZONE/FLULAVAL/FL UARIX) Pneumococcal 13 Unknown Completed [facility] y of Conjugate, PCV13 [facility] dical (Prevnar 13) Branch Influenza Virus Unknown Completed [facility] y of Vaccine Quad .5 mL [facility] IM 6+ MO Branch (FLUZONE/FLULAVAL/FL UARIX) Pneumococcal 13 Unknown Completed [facility]it y of Conjugate, PCV13 [facility] dical (Prevnar 13) Branch Remdesivir Unknown Completed [facility] Remdesivir Unknown Completed [facility] Remdesivir Unknown Completed [facility] Remdesivir Unknown Completed [facility] Remdesivir Unknown Completed [facility] Influenza Virus Unknown Completed [facility] y of Vaccine Quad .5 [facility] 6+ MO Branch (FLUZONE/FLULAVAL/FL UARIX) Pneumococcal 13 Unknown Completed [facility]it y of Conjugate, PCV13 [facility] dical (Prevnar 13) Branch Remdesivir Unknown Completed [facility] Remdesivir Unknown Completed [facility] Remdesivir Unknown Completed [facility] Remdesivir Unknown Completed [facility] Remdesivir Unknown Completed [facility] Influenza Virus Unknown Completed [facility] y of Vaccine Quad .5 [facility] 6+ MO Branch (FLUZONE/FLULAVAL/FL UARIX) Pneumococcal 13 Unknown Completed [facility] y of Conjugate, PCV13 [facility] dical (Prevnar 13) Branch Remdesivir Unknown Completed [facility] Remdesivir Unknown Completed [facility] Remdesivir Unknown Completed [facility] Remdesivir Unknown Completed [facility] Remdesivir Unknown Completed [facility] Influenza Virus Unknown Completed [facility] y of Vaccine Quad .5 mL [facility] IM 6+ MO Branch (FLUZONE/FLULAVAL/FL UARIX) Pneumococcal 13 Unknown Completed [facility] y of Conjugate, PCV13 [facility] dical (Prevnar 13) Branch Remdesivir Unknown Completed [facility] Remdesivir Unknown Completed [facility] Remdesivir Unknown Completed [facility] Remdesivir Unknown Completed [facility] Remdesivir Unknown Completed [facility] Influenza Virus Unknown Completed [facility] y of Vaccine Quad .5 mL [facility] IM 6+ MO Branch (FLUZONE/FLULAVAL/FL UARIX) Pneumococcal 13 Unknown Completed [facility] y of Conjugate, PCV13 [facility] dical (Prevnar 13) Branch Remdesivir Unknown Completed [facility] Remdesivir Unknown Completed [facility] Remdesivir Unknown Completed [facility] Remdesivir Unknown Completed [facility] Remdesivir Unknown Completed [facility] Influenza Virus Unknown Completed [facility] y of Vaccine Quad .5 mL [facility] IM 6+ MO Branch (FLUZONE/FLULAVAL/FL UARIX) Pneumococcal 13 Unknown Completed [facility]it y of Conjugate, PCV13 [facility] dical (Prevnar 13) [place] Remdesivir Unknown Completed [facility] Remdesivir Unknown Completed [facility] Remdesivir Unknown Completed [facility] Remdesivir Unknown Completed [facility] Remdesivir Unknown Completed [facility] Influenza Virus Unknown Completed [facility] y of Vaccine Quad .5 mL [facility] 6+ MO Branch (FLUZONE/FLULAVAL/FL UARIX) Pneumococcal 13 Unknown Completed [facility] y of Conjugate, PCV13 [facility] dical (Prevnar 13) Branch Remdesivir Unknown Completed [facility] Remdesivir Unknown Completed [facility] Remdesivir Unknown Completed [facility] Remdesivir Unknown Completed [facility] Remdesivir Unknown Completed [facility] Influenza Virus Unknown Completed [facility] y of Vaccine Quad .5 mL [facility] 6+ MO Branch (FLUZONE/FLULAVAL/FL UARIX) Pneumococcal 13 Unknown Completed [facility] y of Conjugate, PCV13 [facility] dical (Prevnar 13) Branch Remdesivir Unknown Completed [facility] Remdesivir Unknown Completed [facility] Remdesivir Unknown Completed [facility] Remdesivir Unknown Completed [facility] Remdesivir Unknown Completed [facility] Influenza Virus Unknown Completed [facility] y of Vaccine Quad .5 mL [facility] IM 6+ MO Branch (FLUZONE/FLULAVAL/FL UARIX) Pneumococcal 13 Unknown Completed [facility] y of Conjugate, PCV13 [facility] dical (Prevnar 13) Branch Remdesivir Unknown Completed [facility] Remdesivir Unknown Completed [facility] Remdesivir Unknown Completed [facility] Remdesivir Unknown Completed [facility] Remdesivir Unknown Completed [facility] Influenza Virus Unknown Completed [facility] y of Vaccine Quad .5 mL [facility] 6+ MO Branch (FLUZONE/FLULAVAL/FL UARIX) Pneumococcal 13 Unknown Completed [facility] y of Conjugate, PCV13 [facility] dical (Prevnar 13) Branch Remdesivir Unknown Completed [facility] Remdesivir Unknown Completed [facility] Remdesivir Unknown Completed [facility] Remdesivir Unknown Completed [facility] Remdesivir Unknown Completed [facility] Pneumococcal Unknown Completed [facility] Pneumococcal, Unknown Completed [facility] Pneumococcal Unknown Completed [facility] Pol[facility] PFIZER COVID-19 MRNA Unknown Completed [facility] Remdesivir Unknown [facility] Rem[facility] Com[facility] Com[facility] Rem[facility] PFIZER READY TO USE Unknown Completed [facility] COVID-19 [facility] VACCINATION PFIZER COVID-19 MRNA Unknown Completed [facility]ACC[facility] Influenza, Unknown Completed [facility] PFIZER >12 YR Unknown Completed [facility] COVID-19 MRNA [facility] BIVALENT VACCINATION Pneumococcal Unknown Completed [facility] Zoster Unknown Com[facility] Zoster [facility] Pneumococcal Unknown Completed [facility] Pneumococcal, Unknown Completed [facility] Pneumococcal Unknown Completed [facility] Polysaccharide [facility] PFIZER COVID-19 MRNA Unknown Completed [facility] Remdesivir Unknown Com[facility] Rem[facility] Unknown [facility] Rem[facility]ivir Unknown Com[facility] Remdesivir Unknown [facility] Rem[facility] PFIZER READY TO USE Unknown Completed [facility] COVID-19 MRNA [facility] VACCINATION PFIZER COVID-19 MRNA Unknown Completed [facility] Influenza, Unknown Completed [facility] PFIZER >12 YR Unknown Completed [facility] COVID-19 MRNA [facility] BIVALENT VACCINATION Pneumococcal Unknown Completed [facility] Zoster Unknown Completed [facility] Zoster Unknown Com[facility] Pneumococcal Unknown Completed [facility] Pneumococcal, Unknown Completed [facility] Pneumococcal Unknown Completed [facility] Polysaccharide [facility] PFIZER COVID-19 MRNA Unknown Completed [facility] Remdesivir Unknown Com[facility] Rem[facility] Remdesivir Unknown [facility] Remdesivir Unknown Com[facility] Rem[facility] Unknown Com[facility] PFIZER READY TO USE Unknown Completed [facility] COVID-19 MRNA [facility] VACCINATION PFIZER COVID-19 MRNA Unknown Completed [facility] Influenza, Unknown Completed [facility] PFIZER >12 YR Unknown Completed [facility] COVID-19 MRNA [facility] BIVALENT VACCINATION Pneumococcal Unknown Completed [facility] Zoster Unknown Completed [facility] Zoster Unknown Com[facility] Pneumococcal Unknown Completed [place] o f Conjugate [facility] [place] [facility] Vital Signs Vital Name Observation Time Observation Value Comments Source Systolic blood 2022-11-10 15:38:00 143 mm[Hg] [facility] Diastolic blood 2022-11-10 15:38:00 79 mm[Hg] [facility] Heart rate 2022-11-10 15:38:00 62 /min [facility] Body height 2022-11-10 15:38:00 157.5 cm [facility] Body weight 2022-11-10 15:38:00 49.896 kg Univers[facility] ty [facility] BMI 2022-11-10 15:38:00 20.12 kg/m2 [facility] ty [facility] Systolic blood 2022-11-06 08:00:00 112 mm[Hg] [facility] Diastolic blood 2022-11-06 08:00:00 59 mm[Hg] [facility] Heart rate 2022-11-06 08:00:00 105 [facility] Respiratory rate 2022-11-06 08:00:00 19 /min [facility] Oxygen saturation in 2022-11-06 08:00:00 100 /min [facility] Arterial blood by [facility] Pulse oximetry Branch Body temperature 2022-11-06 04:27:00 37.72 Laure [facility] Body height 2022-11-06 04:27:00 157.5 cm Universi ty [facility] Body weight 2022-11-06 04:27:00 51.71 kg Universi ty [facility] BMI 2022-11-06 04:27:00 20.85 kg/m2 [facility] Systolic blood 2022-03-17 23:45:00 110 mm[Hg] [facility]iver [facility] Diastolic blood 2022-03-17 23:45:00 66 mm[Hg] Unive rsity [facility] Heart rate 2022-03-17 23:45:00 81 /min [facility] Respiratory rate 2022-03-17 23:45:00 16 /min [facility] Oxygen saturation in 2022-03-17 23:45:00 98 /min [facility] Arterial blood by [place] [facility] P[facility] oxim[facility] Body temperature 2022-03-17 21:07:00 36.67 Laure [facility] Body height 2022-03-17 21:07:00 157.5 cm [facility] Body weight 2022-03-17 21:07:00 55.339 kg [facility] BMI 2022-03-17 21:07:00 22.31 kg/m2 [facility] Systolic blood 2022-03-04 10:21:00 126 mm[Hg] [facility] Diastolic blood 2022-03-04 10:21:00 59 mm[Hg] [facility] Heart rate 2022-03-04 10:21:00 97 /min [facility] Body temperature 2022-03-04 10:21:00 36.94 Laure [facility] Respiratory rate 2022-03-04 10:21:00 18 /min [facility] Oxygen saturation in 2022-03-04 10:21:00 100 /min [facility]ial blood by [place] [facility] P[facility] Body height 2022-03-04 06:12:00 162.6 cm [facility] Body weight 2022-03-04 06:12:00 57.153 kg [facility] BMI 2022-03-04 06:12:00 21.63 kg/m2 [facility] Heart rate 2022-03-01 21:45:00 80 /min [facility] Respiratory rate 2022-03-01 21:45:00 17 /min [facility] Oxygen saturation in 2022-03-01 21:45:00 100 /min [facility] blood by [place] [facility] Systolic blood 2022-03-01 21:00:00 107 mm[Hg] [facility] Diastolic blood 2022-03-01 21:00:00 70 mm[Hg] [facility] Body temperature 2022-03-01 20:23:00 37 Laure [facility] Body height 2022-03-01 20:23:00 157.5 cm [facility] Body weight 2022-03-01 20:23:00 57.153 kg [facility] BMI 2022-03-01 20:23:00 23.05 kg/m2 [facility] Systolic blood 2021-12-30 13:51:00 117 mm[Hg] [facility] Diastolic blood 2021-12-30 13:51:00 69 mm[Hg] [facility] Heart rate 2021-12-30 13:51:00 82 /min [facility] Body temperature 2021-12-30 13:51:00 36.78 Laure [facility] Respiratory rate 2021-12-30 13:51:00 18 /min [facility] Oxygen saturation in 2021-12-30 13:51:00 98 /min [facility]ial blood by [place] [facility] Body weight 2021-12-30 09:42:00 59.467 kg [facility] BMI 2021-12-30 09:42:00 23.98 kg/m2 [facility] Body height 2021-12-28 00:00:00 157.5 cm [facility] Heart rate 2021-12-04 23:00:00 80 /min [facility] Oxygen saturation in 2021-12-04 23:00:00 99 /min [facility]terial blood by [place] [facility] Respiratory rate 2021-12-04 20:31:00 22 /min [facility] Systolic blood 2021-12-04 17:00:00 114 mm[Hg] [facility] Diastolic blood 2021-12-04 17:00:00 70 mm[Hg] [facility] Body temperature 2021-12-04 17:00:00 36.39 Laure [facility] Body weight 2021-12-04 09:00:00 56.972 kg [facility] BMI 2021-12-04 09:00:00 22.97 kg/m2 [facility] Body height 2021-12-04 00:30:00 157.5 cm [facility] Systolic blood 2021-11-26 20:00:00 102 mm[Hg] [facility] Diastolic blood 2021-11-26 20:00:00 57 mm[Hg] [facility] Heart rate 2021-11-26 20:00:00 62 /min [facility] Body temperature 2021-11-26 20:00:00 36.39 Laure [facility] Respiratory rate 2021-11-26 20:00:00 18 /min [facility] Oxygen saturation in 2021-11-26 20:00:00 97 /min [facility] Arterial blood by [place] [facility] P[facility] Body weight 2021-11-26 08:16:00 56.972 kg [facility] BMI 2021-11-26 08:16:00 22.97 kg/m2 [facility] Body height 2021-11-24 08:00:00 157.5 cm [facility] Systolic blood 2021-11-12 19:00:00 106 mm[Hg] [facility] Diastolic blood 2021-11-12 19:00:00 61 mm[Hg] [facility] Heart rate 2021-11-12 19:00:00 70 /min [facility] Respiratory rate 2021-11-12 19:00:00 15 /min [facility] Oxygen saturation in 2021-11-12 19:00:00 100 /min [facility] blood by [place] [facility] Body temperature 2021-11-12 17:16:00 37.61 Laure [facility] Body height 2021-11-12 17:16:00 157.5 cm [facility] Body weight 2021-11-12 17:16:00 58.968 kg [facility] BMI 2021-11-12 17:16:00 23.78 kg/m2 [facility] Respiratory rate 2021-09-14 19:53:00 18 /min [facility] Oxygen saturation in 2021-09-14 19:53:00 100 /min [facility] Arterial blood by [facility] Pulse oximetry Branch Systolic blood 2021-09-14 19:10:00 104 mm[Hg] [facility] Diastolic blood 2021-09-14 19:10:00 64 mm[Hg] [facility] Heart rate 2021-09-14 19:10:00 75 /min [facility] Body temperature 2021-09-14 17:16:00 37.61 Laure [facility] Body weight 2021-09-14 17:16:00 57.607 kg [facility] BMI 2021-09-14 17:16:00 23.23 kg/m2 [facility] Respiratory rate 2021-09-06 18:36:00 16 /min [facility] Oxygen saturation in 2021-09-06 18:36:00 96 /min [facility] Arterial blood by [facility] Pulse oximetry Branch Systolic blood 2021-09-06 16:24:00 103 mm[Hg] [facility] Diastolic blood 2021-09-06 16:24:00 55 mm[Hg] [facility] Heart rate 2021-09-06 16:24:00 63 /min [facility] Body temperature 2021-09-06 16:24:00 35.89 Laure [facility] Body weight 2021-09-06 08:42:00 59.9 kg [facility] BMI 2021-09-06 08:42:00 24.15 kg/m2 [facility] Body height 2021-09-02 05:53:00 157.5 cm [facility] Body temperature 2021-04-16 22:26:00 36.11 Laure [facility] Systolic blood 2021-04-16 21:33:00 127 mm[Hg] [facility] Diastolic blood 2021-04-16 21:33:00 68 mm[Hg] [facility] Heart rate 2021-04-16 21:33:00 69 /min [facility] Respiratory rate 2021-04-16 21:33:00 18 /min [facility] Body height 2021-04-16 21:33:00 157.5 cm [facility] Body weight 2021-04-16 21:33:00 54.432 kg [facility] BMI 2021-04-16 21:33:00 21.95 kg/m2 [facility] Oxygen saturation in 2021-04-16 21:33:00 98 /min [facility] Arterial blood by [facility] Pulse oximetry Branch Systolic blood 2021-03-15 17:40:00 113 mm[Hg] [facility] Diastolic blood 2021-03-15 17:40:00 68 mm[Hg] [facility] Heart rate 2021-03-15 17:40:00 67 /min [facility] Body temperature 2021-03-15 17:40:00 36.39 Laure [facility] Respiratory rate 2021-03-15 17:40:00 16 /min [facility] Oxygen saturation in 2021-03-15 17:40:00 100 /min [facility] Arterial blood by [facility] Pulse oximetry Branch Body weight 2021-03-15 09:39:00 56.427 kg [facility] BMI 2021-03-15 09:39:00 22.75 kg/m2 [facility] Height 2020-06-03 00:00:00 62 [in_i] Yvonne valverde BMI (Body Mass 2020-06-03 00:00:00 22.1 kg/m2 [facility]) Body Weight 2020-06-03 00:00:00 1936 [oz_av] [facility] Heart rate 2022-09-20 17:19:00 77 /min [facility] Respiratory rate 2022-09-20 17:19:00 22 /min [facility] Oxygen saturation in 2022-09-20 17:19:00 100 /min [facility] Arterial blood by Pulse oximetry Systolic blood 2022-09-20 16:17:19 113 mm[Hg] Method ist Hospital pressure Diastolic blood 2022-09-20 16:17:19 69 [facility]Hg[facility] Body temperature 2022-09-20 16:17:19 37.5 Laure [facility] Body height 2022-09-05 13:08:00 157.5 cm [facility] Body weight 2022-09-05 13:08:00 53.071 kg [facility] BMI 2022-09-05 13:08:00 21.40 kg/m2 [facility] Systolic blood 2022-06-22 16:45:00 127 mm[Hg] Method [facility] Hospital pressure Diastolic blood 2022-06-22 16:45:00 60 mm[facility]Hg[facility] Heart rate 2022-06-22 16:45:00 86 /min [facility] Body temperature 2022-06-22 16:45:00 36.17 Laure [facility] Respiratory rate 2022-06-22 16:45:00 18 /min [facility] Body height 2022-06-22 16:45:00 157.5 cm [facility] Body weight 2022-06-22 16:45:00 53.388 kg [facility] BMI 2022-06-22 16:45:00 21.53 kg/m2 [facility] Oxygen saturation in 2022-06-22 16:45:00 99 /min [facility] Arterial blood by Pulse oximetry Systolic blood 2021-06-23 17:47:00 124 mm[Hg] Method ist Hospital pressure Diastolic blood 2021-06-23 17:47:00 58 mm[Hg] [facility] Heart rate 2021-06-23 17:47:00 69 /min [facility] Body temperature 2021-06-23 17:47:00 35.72 Laure [facility] Respiratory rate 2021-06-23 17:47:00 19 /min [facility] Body weight 2021-06-23 17:47:00 57.698 kg [facility] BMI 2021-06-23 17:47:00 23.27 kg/m2 [facility] Oxygen saturation in 2021-06-23 17:47:00 99 /min [facility] Arterial blood by Pulse oximetry Body height 2021-06-17 18:43:00 157.5 cm [facility] Procedures Procedure Date / Time Performing Source Performed Clinician EXTERNAL PROVIDER RECORDS 2022-11-20 Doctor Unassigned, Uni versity of 05:01:00 [facility] XR CHEST 1 VW 2022-11-06 Porsche Moore [facility] 06:33:41 [facility] HB ECG ROUTINE & RHYTHM STRIP 2022-11-06 Porsche Moore [facility] 05:41:43 [facility] LIPASE 2022-11-06 Porsche Moore [facility] 05:35:00 [facility] MAGNESIUM 2022-11-06 Porsche Moore [facility] 05:35:00 [facility] COMP. METABOLIC PANEL (67170) 2022-11-06 Porsche Moore [facility] 05:35:00 [facility] CBC WITH DIFF 2022-11-06 Porsche Moore [facility] 05:35:00 [facility] URINALYSIS 2022-11-06 Porsche Moore [facility] 05:35:00 [facility] AC PANEL 21 + LACTIC ACID 2022-11-06 Porsche Moore Uni versity of 05:35:00 [facility] NOTICE OF PRIVACY PRACTICES 2022-11-06 Doctor [place], U niversity of 04:26:09 [facility] CONSENT/REFUSAL FOR DIAGNOSIS AND 2022-11-06 Doctor Zafar powell [facility] 04:25:01 [facility] MAGNESIUM LEVEL 2022-09-20 Aftab Murphy 11:46:00 Hospital PHOSPHORUS LEVEL 2022-09-20 Aftab Murphy 11:46:00 Hospital BASIC METABOLIC PANEL 2022-09-20 Aftab Murphy 11:46:00 Hospital CBC WITH PLATELET AND DIFFERENTIAL 2022-09-20 Aftab Murphy [facility] 11:46:00 Hospital ESTIMATED GFR 2022-09-20 Aftab Murphy [facility] 11:46:00 Hospital XR CHEST 1 VW PORTABLE 2022-09-19 Demetrius Jaquez [facility] 21:05:00 [facility] NOCARDIA CULTURE 2022-09-19 Wiliam Emanuel 19:30:00 [facility] AFB CULTURE 2022-09-19 Wiliam Emanuel 19:30:00 [facility] FUNGUS CULTURE 2022-09-19 Wiliam Emanuel 19:30:00 [facility] FUNGUS SMEAR 2022-09-19 Wiliam Emanuel 19:30:00 [facility] RESPIRATORY PATHOGEN PANEL WITH 2022-09-19 Wiliam Emanuel COVID-19 RT-PCR 19:30:00 [facility] AFB STAIN 2022-09-19 Wiliam Emanuel 19:30:00 [facility] CYTOLOGY (NON-GYNECOLOGICAL) 2022-09-19 Wiliam Emanuel hodist REQUEST 19:30:00 [facility] BRONCHOSCOPY 2022-09-19 Alpesh Granados 19:14:00 [facility] PNEUMOCYSTIS CARINII QPCR - 2022-09-19 Wiliam Emanuel VIRACOR 19:00:00 [facility] COVID-19 QUALITATIVE RT-PCR 2022-09-19 Wiliam Emanuel 19:00:00 [facility] BAL CELL COUNT AND DIFFERENTIAL 2022-09-19 Wiliam Emanuel 19:00:00 [facility] AMYLASE LEVEL, MISC FLUID 2022-09-19 Wiliam Emanuel ist 19:00:00 [facility] MISCELLANEOUS REFERRAL TEST 2022-09-19 Wiliam Emanuel 19:00:00 [facility] CYTOMEGALOVIRUS BY PCR 2022-09-19 Wiliam Emanuel 19:00:00 [facility] HERPES SIMPLEX VIRUS BY PCR 2022-09-19 Wiliam Emanuel 19:00:00 [facility] ECG 12-LEAD 2022-09-19 Janell Reed 01:12:05 [facility] MAGNESIUM LEVEL 2022-09-18 Aftab Murphy [facility] 11:33:00 Hospital PHOSPHORUS LEVEL 2022-09-18 Aftab Murphy 11:33:00 Hospital BASIC METABOLIC PANEL 2022-09-18 Aftab Murphy [facility] 11:33:00 Hospital CBC WITH PLATELET AND DIFFERENTIAL 2022-09-18 Aftab Murphy [facility] 11:33:00 Hospital CORTISOL LEVEL, AM 2022-09-18 Wiliam Emanuel [facility] 11:33:00 [facility] ESTIMATED GFR 2022-09-18 Aftab Murphy [facility] 11:33:[address] CHEST WO CONTRAST ABDOMEN WO 2022-09-16 Janell Reed CONTRAST PELVIS WO CONTRAST 19:23:43 [facility] ital XR ABDOMEN 1 VW PORTABLE 2022-09-[address] 20:28:48 [facility] MAGNESIUM LEVEL 2022-09-15 Aftab Murphy [facility] 12:08:00 Hospital PHOSPHORUS LEVEL 2022-09-15 Aftab Murphy [facility] 12:08:00 Hospital BASIC METABOLIC PANEL 2022-09-15 Aftab Murphy 12:08:00 Hospital CBC WITH PLATELET AND DIFFERENTIAL 2022-09-15 Aftab Murphy [facility] 12:08:00 Hospital ESTIMATED GFR 2022-09-15 Aftab Murphy [facility] 12:08:00 Hospital TB T-SPOT 2022-09-14 Janell Reed 16:23:00 [facility] MISCELLANEOUS REFERRAL TEST 2022-09-14 Janell Reed Meth oddane 16:23:00 [facility] CRYPTOCOCCAL ANTIGEN SCREEN 2022-09-14 Janell Reed odist 12:10:00 [facility] ASPERGILLUS AB BY CF, SERUM 2022-09-14 Janell Reed Meth odist 12:09:00 [facility] COCCIDIOIDES ANTIBODY, IGG/IGM BY 2022-09-14 Janell Reed CARMEN 12:09:00 [facility] CBC WITH PLATELET AND DIFFERENTIAL 2022-09-14 Kait Almazan 12:09:00 [facility] BASIC METABOLIC PANEL 2022-09-14 Kait Almazan 12:09:00 [facility] ESTIMATED GFR 2022-09-14 Aftab Murphyist 12:09:00 Hospital EXTERNAL PROVIDER - ADC CARDIOLOGY 2022-09-14 Doctor Candy reaves, [facility] 05:01:[address] [facility] [address] ANGIOGRAM ABDOMEN PELVIS W AND 2022-09-12 Kait Almazan OR WO CONTRAST 23:57:27 [facility] XR ABDOMEN 1 VW PORTABLE 2022-09-[address] 22:29:42 [facility] ECG 12-LEAD 2022-09-12 Janell Reedist 00:20:10 [facility] DURABLE MEDICAL EQUIPMENT 2022-09-11 Alpesh Granados Method ist 16:41:00 Hospital BASIC METABOLIC PANEL 2022-09-11 Aftab Murphy [facility] 15:14:00 Hospital CBC WITH PLATELET AND DIFFERENTIAL 2022-09-11 Aftab Murphy [facility] 15:14:00 Hospital HEPATIC FUNCTION PANEL 2022-09-11 Aftab Murphy [facility] 15:14:00 Hospital MAGNESIUM LEVEL 2022-09-11 Aftab Murphy [facility] 15:14:00 Hospital ESTIMATED GFR 2022-09-11 Aftab Murphy [facility] 15:14:00 Hospital XR ABDOMEN 1 VW PORTABLE 2022-09-09 Martin Zarate odist 21:22:04 [facility] VENOUS BLOOD GAS 2022-09-09 Janelle Hahn 10:24:00 Hospital MRI CHOLANGIOGRAM WO CONTRAST 2022-09-08 Me Tha thodist 21:00:00 [facility] VENOUS BLOOD GAS 2022-09-08 Janelle Hahn 09:16:00 Hospital CBC WITH PLATELET AND DIFFERENTIAL 2022-09-07 Talisha Ortega 09:15:00 Hospital BASIC METABOLIC PANEL 2022-09-07 Talisha Ortega 09:15:00 Hospital MAGNESIUM LEVEL 2022-09-07 Talisha Ortega 09:15:00 Hospital PHOSPHORUS LEVEL 2022-09-07 Jordna, Talisha [facility] 09:15:00 Hospital ESTIMATED GFR 2022-09-07 Jordan, Talisha [facility] 09:15:00 Hospital ESTIMATED GFR 2022-09-06 Jordan, Talisha [facility] 09:40:00 Hospital BASIC METABOLIC PANEL 2022-09-05 Ramon Dash 17:46:00 Hospital MAGNESIUM LEVEL 2022-09-05 Ramon Dash 17:46:00 Hospital ESTIMATED GFR 2022-09-05 Ramon Dash 17:46:00 Hospital SURGICAL PATHOLOGY REQUEST 2022-09-05 Ramon Dasho dist 16:33:00 Hospital ESOPHAGOGASTRODUODENOSCOPY (EGD) 2022-09-05 Kait Loving 13:49:00 [facility] CBC WITH PLATELET AND DIFFERENTIAL 2022-09-05 Jordan, Talisha Erickson 10:12:00 Hospital BASIC METABOLIC PANEL 2022-09-05 JordanTalishaist 10:12:00 Hospital MAGNESIUM LEVEL 2022-09-05 Jordan, Talisha [facility] 10:12:00 Hospital PHOSPHORUS LEVEL 2022-09-05 Jordan, Talisha [facility] 10:12:00 Hospital ESTIMATED GFR 2022-09-05 Jordan, Talisha Erickson 10:12:00 Hospital OCCULT BLOOD, STOOL 2022-09-04 Ramon Dash 13:39:00 Hospital CBC WITH PLATELET AND DIFFERENTIAL 2022-09-04 Jordan, Talisha [facility] 09:33:00 Hospital BASIC METABOLIC PANEL 2022-09-04 Jordan, Talisha [facility] 09:33:00 Hospital MAGNESIUM LEVEL 2022-09-04 Jordan, Talisha [facility] 09:33:00 Hospital PHOSPHORUS LEVEL 2022-09-04 Jordan, Talisha [facility] 09:33:00 Hospital ESTIMATED GFR 2022-09-04 Jordan, Talisha [facility] 09:33:00 Hospital CBC WITH PLATELET AND DIFFERENTIAL 2022-09-03 Jordan, Talisha [facility] 09:42:00 Hospital BASIC METABOLIC PANEL 2022-09-03 Jordan, Talisha [facility] 09:42:00 Hospital MAGNESIUM LEVEL 2022-09-03 Talisha Ortega 09:42:00 Hospital PHOSPHORUS LEVEL 2022-09-03 Talisha Ortega 09:42:00 Hospital ESTIMATED GFR 2022-09-03 Talisha Ortega 09:42:00 Hospital XR CHEST 1 VW PORTABLE 2022-09-02 Gustavo Broderick 15:26:46 Hospital SEDIMENTATION RATE 2022-09-02 Gill Schaefer 10:53:00 [facility] HIV 1/2 ANTIGEN/ANTIBODY, FOURTH 2022-09-02 Gill Schaefer GENERATION, WITH REFLEXES 10:52[facility] 2022-09-02 Gill Schaefer ist 10:51:00 [facility] PARTIAL THROMBOPLASTIN TIME (PTT) 2022-09-02 Gill Schaefer 10:51:00 [facility] HEMOGLOBIN A1C 2022-09-02 Gill Schaefer 10:50:00 [facility] FOLATE LEVEL 2022-09-02 Gill Schaefer 10:50:00 [facility] VITAMIN B12 LEVEL 2022-09-02 Gill Schaefer 10:50:00 [facility] SYPHILIS TREPONEMA SCREEN WITH RPR 2022-09-02 Lawrence Schaefer CONFIRMATION (REVERSE ALGORITHM) 10:50:00 [facility] LIPID PANEL 2022-09-02 Gill Schaefer 10:49:00 [facility] HOMOCYSTINE, PLASMA 2022-09-02 Gill Schaefer 10:49:00 [facility] THYROID STIMULATING HORMONE 2022-09-02 Gill Schaefer Meth odist 10:49:00 [facility] T4, FREE 2022-09-02 Gill Schaefer 10:49:00 [facility] C-REACTIVE PROTEIN 2022-09-02 Gill Schaefer 10:49:00 [facility] CBC WITH PLATELET AND DIFFERENTIAL 2022-09-02 Talisha Ortega 10:49:00 [facility] BASIC METABOLIC PANEL 2022-09-02 Tlaisha Ortega 10:49:00 Hospital MAGNESIUM LEVEL 2022-09-02 Talisha Ortega 10:49:00 Hospital PHOSPHORUS LEVEL 2022-09-02 Talisha Ortega 10:49:00 Hospital HELICOBACTER PYLORI ABS 2022-09-02 Alpesh Granados t 10:49:00 Hospital ESTIMATED GFR 2022-09-02 Talisha Ortega 10:49:00 Hospital US GALLBLADDER 2022-09-02 David Alanizist 04:40:[address] [facility] [address] ANGIOGRAM HEAD W WO CONTRAST 2022-09-02 Gill Schaeferist 03:39:26 [facility] CT ANGIOGRAM NECK W WO CONTRAST 2022-09-02 SilvanoGill [facility] 03:39:00 [facility] CT HEAD WO CONTRAST 2022-09-02 Gustavo Broderickist 03:31:15 Hospital CBC WITH PLATELET AND DIFFERENTIAL [...] Demi Cuello 03:05:00 Hospital PHOSPHORUS LEVEL 2022-09-02 Scafidi, Mallory [facility] 03:05:00 Hospital NT-PROBNP 2022-09-02 Demi Cuello Keyona Erickson 03:05:00 Hospital ESTIMATED GFR 2022-09-02 Demi Cuello [facility] 03:05:00 Hospital ECG 12-LEAD 2022-09-02 Gustavo Broderick [facility] 03:04:00 Hospital POC GLUCOSE 2022-09-02 Demi Cuello Keyona Erickson 02:53:00 Hospital L[facility] LDH 2022-09-01 [facility] 15:31:00 [facility] PROCALCITONIN 2022-09-01 [facility] 15:31:00 [facility] LIPID PANEL 2022-09-01 Talisha Ortega 14:43:00 Hospital CBC WITH PLATELET AND DIFFERENTIAL 2022-09-01 Talisha Ortega 09:40:00 Hospital BASIC METABOLIC PANEL 2022-09-01 Talisha Ortega 09:40:00 Hospital MAGNESIUM LEVEL 2022-09-01 Du Ortegaiza [facility] 09:40:00 Hospital PHOSPHORUS LEVEL 2022-09-01 Jordan Talisha [facility] 09:40:00 Hospital ESTIMATED GFR 2022-09-01 Talisha Ortega 09:40:00 Hospital ECG 12-LEAD 2022-09-01 Talisha Ortega 07:49:38 Hospital BLOOD CULTURE, AEROBIC & ANAEROBIC 2022-09-01 Talisha Ortega 04:10:00 Hospital CBC WITH PLATELET AND DIFFERENTIAL 2022-09-01 Geovany Castaneda 04:10:00 [facility] COMPREHENSIVE METABOLIC PANEL 2022-09-01 Ashok Castaneda ethodist 04:10:00 [facility] ESTIMATED GFR 2022-09-01 Ashok Castaneda 04:10:00 [facility] TOTAL IRON BINDING CAPACITY 2022-09-01 Talisha Ortega 04:10:00 Hospital VITAMIN B12 LEVEL 2022-09-01 Talisha Ortega 04:10:00 Hospital RETICULOCYTE COUNT 2022-09-01 Talisha Ortega 04:10:00 Hospital FOLATE LEVEL 2022-09-01 Jordan, Talisha Erickson 04:10:00 Hospital FERRITIN LEVEL 2022-09-01 Jordan, Talisha Erickson 04:10:00 Hospital HAPTOGLOBIN 2022-09-01 Jordan, Talisha Erickson 04:10:00 Hospital AMYLASE LEVEL 2022-09-01 Jordan, Talisha Erickson 04:10:00 Hospital LDH 2022-09-01 Jordan, Talisha Erickson 04:10:00 Hospital LIPASE LEVEL 2022-09-01 Jordan, Talisha [facility] 04:10:00 Hospital PHOSPHORUS LEVEL 2022-09-01 [facility], Talisha [facility] 04:10:00 Hospital MAGNESIUM LEVEL 2022-09-01 [facility] [place], Talisha Erickson 04:10:[address] RENAL STONE PROTOCOL 2022-08-31 Lai Gregg Metho dist 23:30:[address] CHEST WO CONTRAST 2022-08-31 Nawaf Wynn 16:55:22 Hospital CBC WITH PLATELET AND DIFFERENTIAL 2022-08-31 Nawaf Wynn 15:35:00 Hospital COMPREHENSIVE METABOLIC PANEL 2022-08-31 Nawaf Wynn ethodist 15:35:00 Hospital ALCOHOL LEVEL, BLOOD 2022-08-31 Nawaf Wynn 15:35:00 Hospital NICOTINE AND COTININE, SERUM 2022-08-31 Nawaf Wynn Al thodist 15:35:00 Hospital URINE DRUGS OF ABUSE SCREEN 2022-08-31 Nawaf Wynn [facility] hodist 15:35:00 Hospital ESTIMATED GFR 2022-08-31 Nawaf Wynn 15:35:00 Hospital SINGLE ANTIGEN BEADS 2022-08-31 Nawaf Wynn 15:35:00 Hospital SIX MINUTE WALK W/ PULSE OXIMETRY 2022-08-31 Nawaf Wynn 15:16:43 Hospital ARTERIAL BLOOD GAS, PULMONARY FUNC 2022-08-31 Nawaf Wynn DEPT 14:19:00 Hospital SPIROMETRY, LUNG VOLUMES, 2022-08-31 Nawaf Wynn Metho dist MIPS/MEPS 13:53:37 Hospital EXTERNAL PROVIDER - ADC CARDIOLOGY 2022-08-31 Doctor Candy reaves [facility] 05:01:00 [facility] SIX MINUTE WALK W/ PULSE OXIMETRY 2022-06-22 Nawaf Wynnist 15:29:30 Hospital SPIROMETRY, LUNG VOLUMES 2022-06-22 Nawaf Wynn Method ist 15:27:52 Hospital XR CHEST 2 VW 2022-06-22 Nawaf Wynnist 13:36:00 Hospital CBC WITH PLATELET AND DIFFERENTIAL 2022-06-22 Nawaf Wynn Quaker 12:50:00 Hospital COMPREHENSIVE METABOLIC PANEL 2022-06-22 Nawaf Wynn ethodist 12:50:00 Hospital ALCOHOL LEVEL, BLOOD 2022-06-22 Nawaf Wynn Quaker 12:50:00 Hospital URINE DRUGS OF ABUSE SCREEN 2022-06-22 Nawaf Wynn Met hodist 12:50:00 Hospital NICOTINE AND COTININE, SERUM 2022-06-22 Nawaf Wynn Al thodist 12:50:00 Hospital ESTIMATED GFR 2022-06-22 Nawaf Wynnist 12:50:00 Hospital SINGLE ANTIGEN BEADS 2022-06-22 Nawaf Wynn Quaker 12:50:00 Hospital ECG 12-LEAD 2022-05-11 Nawaf Wynnist 16:51:15 Hospital XR CHEST 2 VW 2022-05-11 Nawaf Wynnist 15:16:00 Hospital SIX MINUTE WALK W/ PULSE OXIMETRY 2022-05-11 Nawaf Wynn 14:28:47 Hospital SPIROMETRY, LUNG VOLUMES 2022-05-11 Nawaf Wynn Method ist 12:30:00 Hospital CBC WITH PLATELET AND DIFFERENTIAL 2022-05-11 Nawaf Wynn 12:05:00 Hospital COMPREHENSIVE METABOLIC PANEL 2022-05-11 Nawaf Wynn ethodist 12:05:00 Hospital NICOTINE AND COTININE, SERUM 2022-05-11 Nawaf Wynn Al thodist 12:05:00 Hospital ALCOHOL LEVEL, BLOOD 2022-05-11 Nawaf Wynn 12:05:00 Hospital ESTIMATED GFR 2022-05-11 Nawaf Wynnist 12:05:00 Hospital SAB CLASS 1 & 2 WITH DILUTIONS 2022-05-11 Nawaf Wynn Quaker 12:05:00 Hospital EXTERNAL PROVIDER - ADC CARDIOLOGY 2022-05-05 Doctor Candy reaves [facility] 05:01:00 [facility] XR CHEST 1 VW PORTABLE 2022-04-27 Janelle Hahn 14:00:00 Hospital CBC WITH PLATELET AND DIFFERENTIAL 2022-04-27 CuateDemi 09:15:00 Hospital MAGNESIUM LEVEL 2022-04-27 CuateDemi 09:15:00 Hospital BASIC METABOLIC PANEL 2022-04-[address] 09:15:00 Hospital ESTIMATED GFR 2022-04-27 Cuate MalloryKeyona Erickson 09:15:00 Hospital HI AN ELECTIVE ENDOTRACHEAL AIRWAY 2022-04-26 Luis Valencia 13:36:00 [facility] EXTRACTION, TOOTH 2022-04-26 Cesar Hamilton 13:11:00 [facility] ALVEOLOPLASTY 2022-04-26 Cesar Hamilton 13:11:00 Hospital XR CHEST 2 VW 2022-04-24 Nawaf Wynn 16:15:00 Hospital SIX MINUTE WALK W/ PULSE OXIMETRY 2022-04-24 Nawaf Wynn 14:44:17 Hospital SPIROMETRY 2022-04-24 Nawaf Wynn 14:05:38 Hospital TTE COMPLETE, WO CONTRAST, W 2022-04-24 Nawaf Wynn Al jose AGITATED SALINE ([id number]) 12:56:15 [facility] CBC WITH PLATELET AND DIFFERENTIAL 2022-04-24 Nawaf Wynn 11:25:00 Hospital COMPREHENSIVE METABOLIC PANEL 2022-04-24 Nawaf Wynn ethodist 11:25:00 Hospital ALCOHOL LEVEL, BLOOD 2022-04-24 Nawaf Wynn 11:25:00 Hospital NICOTINE AND COTININE, SERUM 2022-04-24 Nawaf Wynn thodist 11:25:00 Hospital VITAMIN D 25 HYDROXY LEVEL 2022-04-24 Nawaf Wynn Meth odist 11:25:00 Hospital URINE DRUGS OF ABUSE SCREEN 2022-04-24 Nawaf Wynn Met hodist 11:25:00 Hospital ESTIMATED GFR 2022-04-24 Nawaf Wynn 11:25:00 Hospital SINGLE ANTIGEN BEADS 2022-04-24 Nawaf Wynn 11:25:00 Hospital HEMOGLOBIN A1C 2022-04-12 Maryellen Roach 17:36:00 [facility] PARTIAL THROMBOPLASTIN TIME (PTT) 2022-04-12 Maryellen Roach 17:36:00 [facility] PROTHROMBIN TIME WITH INR 2022-04-12 Maryellen Roacht 17:36:00 [facility] CBC WITH PLATELET AND DIFFERENTIAL 2022-04-12 Maryellen Roach 17:36:00 [facility] COMPREHENSIVE METABOLIC PANEL 2022-04-12 Maryellen Roach thodist 17:30:00 [facility] ESTIMATED GFR 2022-04-12 Maryellen Roach 17:30:00 [facility] ASSIGNMENT OF BENEFITS 2022-04-03 Doctor Unassigned, Univer sity of 18:14:23 [facility] CBC WITH PLATELET AND DIFFERENTIAL 2022-04-01 Karina Pettit 10:32:00 Hospital BASIC METABOLIC PANEL 2022-04-01 Karina Pettit 10:32:00 Hospital ESTIMATED GFR 2022-04-01 Karina Pettit 10:32:00 Hospital CLOSTRIDIUM DIFFICILE TOXIN GENE 2022-04-01 Karina Pettit (QUALITATIVE REAL-TIME PCR) 05:02:00 Hosp ital CBC WITH PLATELET AND DIFFERENTIAL 2022-03-31 Karina Pettit 10:52:00 Hospital BASIC METABOLIC PANEL 2022-03-31 Karina Pettit 10:52:00 Hospital ESTIMATED GFR 2022-03-31 Karina Pettit 10:52:00 Hospital IMMUNOGLOBULIN G 2022-03-30 Tevin Orozco 09:48:00 Hospital IGG SUBCLASSES 2022-03-30 Tevin Orozco 09:48:00 Hospital IMMUNOGLOBULIN E 2022-03-30 Tevin Orozco 09:48:00 Hospital CBC WITH PLATELET AND DIFFERENTIAL 2022-03-30 Karina Pettit 09:48:00 Hospital BASIC METABOLIC PANEL 2022-03-30 Karina Pettit 09:48:00 Hospital ESTIMATED GFR 2022-03-30 HodanKarina 09:48:00 Hospital XR KNEE 3 VW LEFT 2022-03-30 Tevin Orozco 01:38:[address] CHEST WO CONTRAST 2022-03-30 Tevin Orozco 01:28:30 Hospital XR CHEST 1 VW PORTABLE 2022-03-30 Karina Pettit 00:32:08 Hospital ECG 12-LEAD 2022-03-29 Kait Gutierrez 15:36:25 [facility] TROPONIN T 2022-03-29 Kait Gutierrez 15:29:00 [facility] THYROID STIMULATING HORMONE 2022-03-29 Matt Meth odist 15:29:00 [facility] T3 2022-03-29 GutierrezKait silva 15:29:00 [facility] T4, FREE 2022-03-29 Kait Gutierrez 15:29:00 [facility] B NATRIURETIC PEPTIDE 2022-03-29 Kait Gutierrez 15:29:00 [facility] CBC WITH PLATELET AND DIFFERENTIAL 2022-03-29 [...] 2022-03-28 Doctor Unassigned, Univ ersity of 06:01:00 [facility] SURGICAL PATHOLOGY REQUEST 2022-03-27 [place], Umar Metho dist 21:16:00 Hospital HI AN ELECTIVE ENDOTRACHEAL AIRWAY 2022-03-27 Sarah Cartagena Quaker 19:50:00 [facility] ESOPHAGOGASTRODUODENOSCOPY (EGD) 2022-03-27 Fernandez Lutz 19:40:00 [facility] COLONOSCOPY 2022-03-27 Fernandez Lutz 19:40:00 [facility] CBC WITH PLATELET AND DIFFERENTIAL 2022-03-27 Ashok Hill 10:35:00 Hospital COMPREHENSIVE METABOLIC PANEL 2022-03-27 Ashok Hill ethodist 10:35:00 Hospital VENOUS BLOOD GAS 2022-03-27 Alpesh Granados 10:35:00 Hospital ESTIMATED GFR 2022-03-27 Ashok Hill 10:35:00 Hospital COVID-19 QUALITATIVE RT-PCR 2022-03-26 Ashok Hill hodist 18:59:00 Hospital TROPONIN I 2022-03-17 Edward Reis [place] of 21:24:00 [facility] COMP. METABOLIC PANEL ([id number]) 2022-03-17 Edward Reis iversity of 21:24:00 [facility] CBC WITH DIFF 2022-03-17 Reis, [facility] of 21:24:00 [facility] N-TERMINAL PRO-BNP 2022-03-17 Singer [facility] of 21:24:00 [facility] CONSENT/REFUSAL FOR DIAGNOSIS AND 2022-03-17 [facility] 20[facility]58[facility] [address] CHEST PULMONARY ANGIOGRAM 2022-03-04 Rakel Fulton Un iversity of 09:06:58 [facility] XR CHEST 1 VW 2022-03-04 Rakel Fulton [place] of 07:22:00 [facility] LIPASE 2022-03-04 Rakel Fulton [place] of 07:09:00 [facility] TROPONIN I 2022-03-04 Rakel Fulton [place] of 07:09:00 [facility] COMP. METABOLIC PANEL ([id number]) 2022-03-04 Rkael Fulton U niversity of 07:09:00 [facility] CBC WITH DIFF 2022-03-04 [facility] 07:09[facility]00 [facility] PROTHROMBIN TIME / INR 2022-03-04 [facility] ty of 07:09:00 [facility] ACTIVATED PARTIAL THRMPLAS LORRIE 2022-03-04 [facility] of 07:09:00 [facility] CONSENT/REFUSAL FOR DIAGNOSIS AND 2022-03-04 Doctor Zafar powell [facility] 06:01:34 [facility] XR CHEST 1 VW 2022-03-01 [facility] of 21:18:40 [facility] TROPONIN I 2022-03-01 [facility] of 20:43:00 [facility] COMP. METABOLIC PANEL ([id number]) 2022-03-01 [facility] iversity of 20:43:00 [facility] CBC WITH DIFF 2022-03-01 [facility] of 20:43:00 [facility] N-TERMINAL PRO-BNP 2022-03-01 [facility] of 20:43:00 [facility] LACTIC ACID WHOLE BLOOD 2022-03-01 [facility] ty of 20:43:00 [facility] CONSENT/REFUSAL FOR DIAGNOSIS AND 2022-03-01 [facility] 20:19:16 [facility] EXTERNAL PROVIDER - ADC CARDIOLOGY 2022-02-03 Doctor Candy reaves [facility] 06:01:00 [facility] URINE DRUGS OF ABUSE SCREEN 2022-01-23 Nawaf Wynn hodist 19:45:00 Hospital SIX MINUTE WALK W/ PULSE OXIMETRY 2022-01-23 Nawaf Wynn 17:46:53 Hospital SPIROMETRY, LUNG VOLUMES 2022-01-23 Nawaf Wynn ist 16:23:[address] CHEST WO CONTRAST 2022-01-23 Nawaf Wynn 15:07:09 Hospital CBC WITH PLATELET AND DIFFERENTIAL 2022-01-23 Nawaf Wynn 13:09:00 [facility] COMPREHENSIVE METABOLIC PANEL 2022-01-23 Nawaf Wynn ethodist 13:09:00 Hospital ALCOHOL LEVEL, BLOOD 2022-01-23 Nawaf Wynn 13:09:00 Hospital NICOTINE AND COTININE, SERUM 2022-01-23 Nawaf Wynn Al thodist 13:09:00 [facility] ESTIMATED GFR 2022-01-23 Nawaf Wynn 13:09:00 [facility] SAB CLASS 1 & 2 WITH DILUTIONS 2022-01-23 Nawaf Wynn 13:09:00 [facility] BASIC METABOLIC PANEL (NA, K, CL, 2021-12-30 [facility] of CO2, GLUCOSE, BUN, CREATININE, CA) 11:58:00 [facility] CBC WITH DIFF 2021-12-30 [facility] of 11:58:00 [facility] MAGNESIUM 2021-12-29 [facility] of 11:20:00 [facility] BASIC METABOLIC PANEL (NA, K, CL, 2021-12-29 [facility] of CO2, GLUCOSE, BUN, CREATININE, CA) 11:20:00 [facility] CBC WITH DIFF 2021-12-29 [facility] of 11:20:00 [facility] BASIC METABOLIC PANEL (NA, K, CL, 2021-12-28 [facility] of CO2, GLUCOSE, BUN, CREATININE, CA) 10:10:00 [facility] CBC WITH DIFF 2021-12-28 [facility] of 10:10:00 [facility] PROCALCITONIN 2021-12-28 [facility] of 10:10:00 [facility] BLOOD CULTURE SCREEN 2021-12-27 Stuart Shaikh [place] of 21:43:00 [facility] LACTIC ACID WHOLE BLOOD 2021-12-27 [facility] 21:43:[address] [facility] [address] CHEST PULMONARY ANGIOGRAM 2021-12-27 Stuart Shaikh Uni versity of 20:11:53 [facility] XR CHEST 1 VW 2021-12-27 Stuart Shaikh of 18:26:40 [facility] HB ECG ROUTINE & RHYTHM STRIP 2021-12-27 Stuart Shaikh Un iversity of 18:18:59 [facility] RAPID INFLUENZA A/B 2021-12-27 Stuart Shaikh o f 17:47:00 [facility] COVID-19 (ID NOW RAPID TESTING) 2021-12-27 Stuart Shaikh of 17:47:00 [facility] LAB ONLY COVID INTERPRETATION 2021-12-27 Stuart Shaikh Un iversity of 17:47:00 [facility] TROPONIN I 2021-12-27 Stuart Shaikh of 17:36:00 [facility] COMP. METABOLIC PANEL ([id number]) 2021-12-27 Stuart Shaikh iversity of 17:36:00 [facility] CBC WITH DIFF 2021-12-27 Stuart Shaikh of 17:36:00 [facility] PROTHROMBIN TIME / INR 2021-12-27 Stuart Shaikh Universit y of 17:36:00 [facility] ACTIVATED PARTIAL THRMPLAS LORRIE 2021-12-27 Stuart Shaikh U niversity of 17:36:00 [facility] N-TERMINAL PRO-BNP 2021-12-27 Stuart Shaikh of 17:36:00 [facility] CONSENT/REFUSAL FOR DIAGNOSIS AND 2021-12-27 Doctor Zafar powell, [facility] 17:12:38 [facility] EXTERNAL PROVIDER RECORDS 2021-12-16 Doctor Unassigned, Uni versity of 06:01:00 [facility] XR CHEST 2 VW 2021-12-05 Simran Carr [facility] 15:43:00 Hospital RESPIRATORY PATHOGEN PANEL WITH 2021-12-05 Simran Carrist COVID-19 RT-PCR 15:33:00 Hospital TROPONIN I 2021-12-04 Brianne Hickey of 19:03:00 [facility] TRANSTHORACIC ECHO (TTE) COMPLETE 2021-12-04 Ritchie Garcia [place] of W/ CONTRAST 15:03:00 [facility] ACUTE CARE VENOUS BLOOD GAS 2021-12-04 Brianne Hiceky [facility] ersity of 10:09:00 [facility] PHOSPHORUS 2021-12-04 Brianne Hickey [place] of 10:08:00 [facility] MAGNESIUM 2021-12-04 Brianne Hickey [place] of 10:08:00 [facility] VITAMIN B12, LEVEL 2021-12-04 Brianne Hickey [place] of 10:08:00 [facility] TROPONIN I 2021-12-04 Brianne Hickey [place] of 10:08:00 [facility] COMP. METABOLIC PANEL ([id number]) 2021-12-04 Brianne Hickey iversity of 10:08:00 [facility] LIPID PANEL ([id number])(TOTAL 2021-12-04 Ritchie Garcia Univ sity of CHOLESTEROL, TRIGLYCERIDES, HDL) 10:08:00 [facility] CBC WITH DIFF 2021-12-04 [facility] 10:08:00 [facility] RAPID INFLUENZA A/B 2021-12-04 Mary, [facility] o f 10:08:00 [facility] N-TERMINAL PRO-BNP 2021-12-04 Mary, [facility] of 10:08:00 [facility] PROCALCITONIN 2021-12-04 Mary, [facility] of 10:08:00 [facility] MRSA / MSSA SCREEN BY PCR, MERA 2021-12-04 Ritchie Garcia [place] of 10:07:00 [facility] RESPIRATORY PANEL BY PCR 2021-12-04 Brianne Hickey [facility] ity of 10:07:00 [facility] URINALYSIS 2021-12-04 Carol Patiño [place] of 07:10:00 [facility] XR CHEST 1 VW 2021-12-03 Carol Patiño [place] of 22:25:08 [facility] LACTIC ACID WHOLE BLOOD 2021-12-03 Carol Patiño [facility] ity of 22:17:00 [facility] LIPASE 2021-12-03 Carol Patiño [place] of 22:14:00 [facility] MAGNESIUM 2021-12-03 Carol Patiño [place] of 22:14:00 [facility] FERRITIN SERUM 2021-12-03 Brianne Hickey [place] of 22:14:00 [facility] TROPONIN I 2021-12-03 Carol Patiño [place] of 22:14:00 [facility] THYROID STIMULATING HORMONE 2021-12-03 Carol Patiño Uni versity of 22:14:00 [facility] COMP. METABOLIC PANEL ([id number]) 2021-12-03 Carol Patiño U niversity of 22:14:00 [facility] LIPID PANEL ([id number])(TOTAL 2021-12-03 Brianne Hickey [facility] sity of CHOLESTEROL, TRIGLYCERIDES, HDL) 22:14:00 [facility] IRON PANEL 2021-12-03 Brianne Hickey [place] of 22:14:00 [facility] CBC WITH DIFF 2021-12-03 [facility] 22:14:00 [facility] GLYCOSYLATED HEMOGLOBIN (A1C) 2021-12-03 Ritchie Garcia Un iversity of 22:14:00 [facility] PROTHROMBIN TIME / INR 2021-12-03 [facility] 22:14:00 [facility] ACTIVATED PARTIAL THRMPLAS LORRIE 2021-12-03 [facility] 22:14:00 [facility] N-TERMINAL PRO-BNP 2021-12-03 [facility] o f 22:14:00 [facility] COVID-19 (ID NOW RAPID TESTING) 2021-12-03 Carol Patiño [facility] 22:14:00 [facility] HB ECG ROUTINE & RHYTHM STRIP 2021-12-03 Carol Patiño U niversity of 22:12:38 [facility] CONSENT/REFUSAL FOR DIAGNOSIS AND 2021-12-03 Doctor Zafar powell [facility] 22:01:51 [facility] AUTHORIZATION FOR RELEASE OF PHI 2021-12-01 [facility] 05:01:00 [facility] MAGNESIUM 2021-11-26 Preeti Andersen [place] of 09:04:00 [facility] BASIC METABOLIC PANEL (NA, K, CL, 2021-11-26 Preeti Andersen [place] of CO2, GLUCOSE, BUN, CREATININE, CA) 09:04:00 [facility] CBC WITH DIFF 2021-11-26 Preeti Adnersen [place] of 09:04:00 [facility] BASIC METABOLIC PANEL (NA, K, CL, 2021-11-24 Terry [facility] of CO2, GLUCOSE, BUN, CREATININE, CA) 09:35:00 [facility] CBC WITH DIFF 2021-11-24 Irene [facility] of 09:35:00 [facility] XR CHEST 1 VW 2021-11-12 Sean Bills [facility] 17:35:24 [facility] BASIC METABOLIC PANEL (NA, K, CL, 2021-11-12 Sean Bills [place] of CO2, GLUCOSE, BUN, CREATININE, CA) 17:33:00 [facility] CBC WITH DIFF 2021-11-12 Sean Bills [facility] 17:33:00 [facility] RAPID INFLUENZA A/B 2021-11-12 Sean Bills [place] o f 17:33:00 [facility] COVID-19 (ID NOW RAPID TESTING) 2021-11-12 Sean Bills [facility] 17:33:00 [facility] CONSENT/REFUSAL FOR DIAGNOSIS AND 2021-11-12 [facility] 17:18:14 [facility] TROPONIN I 2021-09-14 Sean Bills [facility] 17:58:00 [facility] BASIC METABOLIC PANEL (NA, K, CL, 2021-09-14 Sean Bills [place] of CO2, GLUCOSE, BUN, CREATININE, CA) 17:58:00 [facility] CBC WITH DIFF 2021-09-14 Sean Bills [facility] 17:58:00 [facility] N-TERMINAL PRO-BNP 2021-09-14 Sean Bills [facility] 17:58:00 [facility] COVID-19 (ID NOW RAPID TESTING) 2021-09-14 Sean Bills [facility] 17:58:00 [facility] XR CHEST 1 VW 2021-09-14 Sean Bills [facility] 17:54:14 [facility] CONSENT/REFUSAL FOR DIAGNOSIS AND 2021-09-14 [facility] 17:10:15 [facility] COVID-19 (ID NOW RAPID TESTING) 2021-09-06 Ritchie rosales [place] of 19:17:00 [facility] XR CHEST 1 VW 2021-09-06 [facility] of 16:38:04 [facility] COMP. METABOLIC PANEL ([id number]) 2021-09-05 Ritchie Garcia iversity of 08:53:00 [facility] BASIC METABOLIC PANEL (NA, K, CL, 2021-09-04 Preeti Andersen [place] of CO2, GLUCOSE, BUN, CREATININE, CA) 08:56:00 [facility] CBC WITH DIFF 2021-09-04 Preeti Andersen [place] of 08:56:00 [facility] HEPATIC FUNCTION PANEL ([id number]) 2021-09-03 Ritchie Garcia U niversity of (ALB,T.PRO,BILI 07:52:00 [facility],BU/BC,ALT,AST,ALK PHOS) [place] BASIC METABOLIC PANEL (NA, K, CL, 2021-09-03 [facility] of CO2, GLUCOSE, BUN, CREATININE, CA) 07:52:00 [facility] CBC WITH DIFF 2021-09-03 [facility] 07:52:00 [facility] URINALYSIS 2021-09-02 [facility] 09:02:[address] [facility] [address] CHEST PULMONARY ANGIOGRAM 2021-09-02 [place], [facility] versity of 01:32:47 [facility] COVID-19 (ID NOW RAPID TESTING) 2021-09-02 [facility] 00:14:00 [facility] LAB ONLY COVID INTERPRETATION 2021-09-02 [place], Un iversity of 00:14:00 [facility] HB ECG ROUTINE & RHYTHM STRIP 2021-09-01 [place], Un iversity of 23:58:06 [facility] XR CHEST 1 VW 2021-09-01 [facility] 23:55:09 [facility] IRON 2021-09-01 Preeti Andersen [facility] 23:34:00 [facility] TOTAL IRON BINDING CAPACITY 2021-09-01 [place] [facility] ersity of 23:34:00 [facility] TROPONIN I 2021-09-01 [facility] 23:34:00 [facility] BASIC METABOLIC PANEL (NA, K, CL, 2021-09-01 [facility] CO2, GLUCOSE, BUN, CREATININE, CA) 23:34:00 [facility] CBC WITH DIFF 2021-09-01 [facility] 23:34:00 [facility] NOTICE OF PRIVACY PRACTICES 2021-09-01 Doctor Unassigned, U niversity of 23:12:55 [facility] CONSENT/REFUSAL FOR DIAGNOSIS AND 2021-09-01 Doctor Zafar powell, [facility] 23:12:32 [facility] EXTERNAL PROVIDER - ADC CARDIOLOGY 2021-06-30 [facility] 05:01:00 [facility] ALPHA-1 ANTITRYPSIN PHENOTYPE 2021-06-28 Nawaf Wynn ethodist 15:04:00 Hospital HC COMPLETE BLD COUNT W/AUTO DIFF 2021-06-23u, Alpesh Erickson 15:48:00 Hospital COMPREHENSIVE METABOLIC PANEL 2021-06-23, Alpesh Morin thodist 15:48:00 Hospital ALCOHOL LEVEL, BLOOD 2021-06-23, Alpesh Erickson 15:48:00 Hospital NICOTINE AND COTININE, SERUM 2021-06-23, Alpesh Valle hodist 15:48:00 Hospital ESTIMATED GFR 2021-06-23, Alpesh Erickson 15:48:00 Hospital SINGLE ANTIGEN BEADS 2021-06-23, Alpesh Erickson 15:48:00 Hospital XR CHEST 2 VW 2021-06-23, Alpesh Erickson 15:00:48 Hospital SIX MINUTE WALK W/ PULSE OXIMETRY 2021-06-23, Alpesh Erickson 14:05:12 Hospital SPIROMETRY, DIFFUSION 2021-06-23, Alpesh Erickson 12:47:12 Hospital XR CHEST 1 VW PORTABLE 2021-05-28 Glynn Monzon Method ist 10:32:46 [facility] HC COMPLETE BLD COUNT W/AUTO DIFF 2021-05-28 Aftab Murphy [facility] 09:41:00 Hospital BASIC METABOLIC PANEL 2021-05-28 Aftab Murphy [place] 09:41:00 Hospital MAGNESIUM LEVEL 2021-05-28 Aftab Murphy [facility] 09:41:00 Hospital PHOSPHORUS LEVEL 2021-05-28 Aftab Murphy [facility] 09:41:00 Hospital ESTIMATED GFR 2021-05-28 Aftab Murphy [facility] 09:41:00 Hospital XR CHEST 1 VW PORTABLE 2021-05-27 Kwame Menaist 20:25:13 Hospital SURGICAL PATHOLOGY REQUEST 2021-05-27 Angeline Tellez dist 18:03:00 Hospital XR CHEST 1 VW 2021-05-27 Kwame Menaist 17:58:[address] NEEDLE BIOPSY NO CONTRAST 2021-05-27 Glynn Monzonist 16:53:56 [facility] FUNGUS CULTURE 2021-05-27 Angeline Tellez [facility] 16:30:00 Hospital AFB CULTURE 2021-05-27 Angeline Tellez [facility] 16:30:00 Hospital FUNGUS SMEAR 2021-05-27 Angeline Tellez [facility] 16:30:00 Hospital AFB STAIN 2021-05-27 Angeline Tellez [facility] 16:30:00 Hospital CYTOLOGY (NON-GYNECOLOGICAL) 2021-05-27 Angeline Tellez Met hodist REQUEST 16:30:00 Hospital HC COMPLETE BLD COUNT W/AUTO DIFF 2021-05-27 Aftab Murphy [facility] 10:12:00 Hospital BASIC METABOLIC PANEL 2021-05-27 Aftab Murphy [place] 10:12:00 Hospital MAGNESIUM LEVEL 2021-05-27 Aftab Murphy [facility] 10:12:00 Hospital PHOSPHORUS LEVEL 2021-05-27 Aftab Murphy [facility] 10:12:00 Hospital ESTIMATED GFR 2021-05-27 Aftab Murphy [facility] 10:12:00 Hospital HC COMPLETE BLD COUNT W/AUTO DIFF 2021-05-26 Aftab Murphy [facility] 08:03:00 Hospital BASIC METABOLIC PANEL 2021-05-26 Aftab Murphy [facility] 08:03:00 Hospital MAGNESIUM LEVEL 2021-05-26 Aftab Murphy [facility] 08:03:00 Hospital PHOSPHORUS LEVEL 2021-05-26 Aftab Murphy [facility] 08:03:00 Hospital ESTIMATED GFR 2021-05-26 Aftba Murphy [facility] 08:03:00 Hospital HC COMPLETE BLD COUNT W/AUTO DIFF 2021-05-25 Aftab Murphy [facility] 09:14:00 Hospital BASIC METABOLIC PANEL 2021-05-25 Aftab Murphy [facility] 09:14:00 Hospital MAGNESIUM LEVEL 2021-05-25 Aftab Murphy [facility] 09:14:00 Hospital PHOSPHORUS LEVEL 2021-05-25 Aftab Murphy [facility] 09:14:00 Hospital ESTIMATED GFR 2021-05-25 Aftab Murphy [facility] 09:14:00 Hospital CBC HEMOGRAM 2021-05-24 Angeline Tellez [facility] 19:05:00 Hospital BASIC METABOLIC PANEL 2021-05-24 Angeline Tellez [facility] 19:05:00 Hospital MAGNESIUM LEVEL 2021-05-24 Geoff, Angeline [facility] 19:05:00 Hospital PHOSPHORUS LEVEL 2021-05-24 Geoff, Angeline [facility] 19:05:00 Hospital PROTHROMBIN TIME WITH INR 2021-05-24 Geoff, Angeline Method ist 19:05:00 Hospital PARTIAL THROMBOPLASTIN TIME (PTT) 2021-05-24 Lorin Tellezre e [facility] 19:05:00 Hospital ESTIMATED GFR 2021-05-24 Angeline Tellez [facility] 19:05:00 Hospital HC COMPLETE BLD COUNT W/AUTO DIFF 2021-05-23 Pauly, Alpesh Erickson 19:23:00 Hospital COMPREHENSIVE METABOLIC PANEL 2021-05-23 Alpesh Granados thodist 19:23:00 Hospital ESTIMATED GFR 2021-05-23 Pauly, Alpesh Erickson 19:23:00 Hospital COVID-19 QUALITATIVE RT-PCR 2021-05-23u, Alpesh Salazar oddane 18:40:00 Hospital SURGICAL PATHOLOGY REQUEST 2021-05-18 Nawaf Wynn Meth oddane 19:03:00 Hospital VITAMIN D 25 HYDROXY LEVEL 2021-05-13 Alpesh Granadoso dist 15:30:00 Hospital BASIC METABOLIC PANEL 2021-05-13 Alpesh Granados 15:30:00 Hospital ALBUMIN LEVEL 2021-05-13 Alpesh Granados 15:30:00 Hospital HCG QUANTITATIVE, SERUM 2021-05-13 Pauly, Alpesh Cortez t 15:30:00 Hospital ESTIMATED GFR 2021-05-13 Pauly, Alpesh Erickson 15:30:00 Hospital EXTERNAL PROVIDER - ADC CARDIOLOGY 2021-04-29 Doctor Candy reaves, [facility] 05:01:00 [facility] PET CT SKULL BASE TO MID THIGH 2021-04-18 Alpesh Granados ethodi 15:02:47 Hospital POC GLUCOSE 2021-04-18 Alpesh Granados 13:41:00 Hospital CONSENT/REFUSAL FOR DIAGNOSIS AND 2021-04-16 Doctor Zafar powell, [facility] 21:32:41 [facility] CV RIGHT AND LEFT HEART CATH 2021-04-16 Abena Lottie hodist SELECTIVE CORONARY LV GRAM 00:11:05 [facility] martha ECG 12-LEAD 2021-04-14, Alpesh Erickson 20:29:03 Hospital SPIROMETRY, LUNG VOLUMES, 2021-04-14 Pauly, Alpesh Limon ist MIPS/MEPS 19:11:27 Hospital SIX MINUTE WALK W/ PULSE OXIMETRY 2021-04-14, Alpesh Erickson 18:27:27 Hospital ARTERIAL BLOOD GAS, PULMONARY FUNC 2021-04-14, Alpesh Erickson DEPT 17:29:00 [facility] US CAROTID DUPLEX BILATERAL 2021-04-14, Alpesh [...] Erickson REFLEX TO TITER AND PATTERN, 13:25:00 [facility]ital IMMUNOFLUORESCENCE IONIZED CALCIUM 2021-04-12, Alpesh Erickson 13:25:00 Hospital MAGNESIUM LEVEL 2021-04-12, Alpesh Erickson 13:25:00 Hospital PHOSPHORUS LEVEL 2021-04-12, Alpesh Erickson 13:25:00 Hospital FIBRINOGEN 2021-04-12, Alpesh Erickson 13:25:00 Hospital HEMOGLOBIN A1C 2021-04-12, Alpesh Erickson 13:25:00 Hospital HEMOGLOBIN ELECTROPHORESIS WITH 2021-04-12, Alpesh Erickson HGB HCT AND RBC 13:25:00 Hospital LDH 2021-04-12, Alpesh Erickson 13:25:00 Hospital LIPID PANEL 2021-04-12u, Alpesh Erickson 13:25:00 Hospital NICOTINE AND COTININE, [...] 2021-04-12u, Alpesh Erickson 13:25:00 Hospital T4, FREE 2021-04-12, Alpesh Erickson 13:25:00 Hospital TOXOPLASMA GONDII ANTIBODY, IGG 2021-04-12, Alpesh Erickson 13:25:00 Hospital TOXOPLASMA IGM AB 2021-04-12, Alpesh Erickson 13:25:00 Hospital URIC ACID LEVEL 2021-04-12, Alpesh Erickson 13:25:00 Hospital CYTOMEGALOVIRUS AB, IGG 2021-04-12, Alpesh rod 13:25:00 Hospital CECILIA-KAPADIA VIRUS ANTIBODY TEST 2021-04-12, [...] Alpesh Erickson IGG 13:25:00 Hospital ALDOLASE, SERUM 2021-04-12, Alpesh Erickson 13:25:00 Hospital CENTROMERE ANTIBODY 2021-04-12, Alpesh Erickson 13:25:00 Hospital DOUBLE-STRANDED DNA (DSDNA) 2021-04-12, Alpesh reddy ANTIBODIES, CRITHIDIA 13:25:00 Hospital ALONDRA-1 ANTIBODY 2021-04-12, Alpesh Erickson 13:25:00 Hospital C4 COMPLEMENT COMPONENT 2021-04-12, Alpesh Cortez t 13:25:00 Hospital RHEUMATOID FACTOR 2021-04-12, Alpesh Erickson 13:25:00 Hospital FERRITIN LEVEL 2021-04-12, Alpesh Erickson 13:25:00 Hospital FOLATE LEVEL 2021-04-12, Alpesh Erickson 13:25:00 Hospital HAPTOGLOBIN 2021-04-12, Alpesh Erickson 13:25:00 Hospital PERIPHERAL SMEAR 2021-04-12, Alpesh Erickson 13:25:00 Hospital TOTAL IRON BINDING CAPACITY 2021-04-12, Alpesh reddy 13:25:00 Hospital VITAMIN B12 LEVEL 2021-04-12, Alpesh Erickson 13:25:00 Hospital URINALYSIS SCREEN AND MICROSCOPY, 2021-04-12, Alpesh Erickson WITH REFLEX TO CULTURE 13:25:00 Hospital TYPE AND SCREEN 2021-04-12, Alpesh Erickson 13:25:00 Hospital ESTIMATED GFR 2021-04-12, Alpesh Erickson 13:25:00 Hospital SINGLE ANTIGEN BEADS 2021-04-12, Alpesh Erickson 13:25:00 Hospital MISCELLANEOUS REFERRAL TEST 2021-04-12 Pauly, Alpesh Salazar odist 13:25:00 Hospital CREATININE CLEARANCE, URINE, 24 2021-04-12, Alpesh Erickson HOUR 13:25:00 Hospital COVID-19 QUALITATIVE RT-PCR 2021-04-12 Fernanda Guillermo Martin odist 12:54:00 Hospital TB T-SPOT 2021-04-12, Alpesh Limonist 12:25:00 Hospital COMPLEMENT ACTIVITY, TOTAL 2021-04-12, Alpesh Salazaro dist 12:25:00 Hospital ANGIOTENSIN CONVERTING ENZYME 2021-04-12, Alpesh Morin thodist 12:25:00 Hospital HYPERSENSITIVITY PNEUMONITIS I 2021-04-12, Alpesh Shaw ethodist 12:25:00 Hospital HYPERSENSITIVITY PNEUMONITIS II 2021-04-12, Alpesh Limonist 12:25:00 Hospital HLA TYPING 2021-04-12, Alpesh Erickson 12:25:00 Hospital C1Q CLASS 1 & 2 ANTIBODY 2021-04-12, Alpesh Limoni st 12:25:00 Hospital FL FLUOROSCOPY OF DIAPHRAGM NO 2021-04-11, Alpesh Shaw ethodist FILMS 21:15:00 Hospital FL ESOPHAGRAM SINGLE CONTRAST 2021-04-11, Alpesh Morin thodist 21:05:00 Hospital NM CARDIAC SHUNT EVALUATION 2021-04-11, Alpesh Salazar odist 20:04:00 Hospital NM LUNG PERFUSION QUANT W IMG 2021-04-11, Alpesh Morin thodist 20:03:00 Hospital US ABDOMEN COMPLETE 2021-04-11, Alpesh Erickson 18:13:00 Hospital XR PANOREX 2021-04-11, Alpesh Erickson 16:28:00 Hospital XR CHEST 2 VW 2021-04-11, Alpesh Erickson 16:12:00 Hospital BONE DENSITY 2021-04-11, Alpesh Erickson 16:02:[address] CHEST WO CONTRAST 2021-04-11, Alpesh Erickson 15:18:00 Hospital TTE COMPLETE W AGITATED SALINE W 2021-04-11, Alpesh Erickson CONT W DOP 14:39:07 Hospital CONSENT/REFUSAL FOR DIAGNOSIS AND 2021-04-07 Doctor Zafar powell, [facility] 16:53:02 [facility] ASSIGNMENT OF BENEFITS 2021-04-07 Doctor Unassigned, [facility] of 16:52:46 [facility] MEDICAL RELEASE/CLEARANCE FORMS 2021-03-18 Doctor Hawk duarte [place] of 06:01:00 [facility] MAGNESIUM 2021-03-15 Priyank Odonnell [place] of 09:45:00 [facility] BASIC METABOLIC PANEL (NA, K, CL, 2021-03-15 Janie Odonnell [facility] CO2, GLUCOSE, BUN, CREATININE, CA) 09:45:00 [facility] CBC WITH DIFF 2021-03-15 Priyank Odonnell [place] of 09:45:00 [facility] PHOSPHORUS 2021-03-14 Umberto [facility] of 10:18:00 [facility] MAGNESIUM 2021-03-14 [facility] of 10:18:00 [facility] BASIC METABOLIC PANEL (NA, K, CL, 2021-03-14 Aric Casarez [facility] CO2, GLUCOSE, BUN, CREATININE, CA) 10:18:00 [facility] FECES CULTURE 2021-03-13 Priyank Odonnell [place] of 16:15:00 [facility] CLOSTRIDIUM DIFFICILE TOXIN 2021-03-13 Priyank [place] [facility] of 16:15:00 [facility] BASIC METABOLIC PANEL (NA, K, CL, 2021-03-13 Janie Odonnell [facility] CO2, GLUCOSE, BUN, CREATININE, CA) 12:29:00 [facility] CBC WITH DIFF 2021-03-13 Priyank Odonnell [place] of 12:29:00 [facility] PNEUMOCOCCAL ANTIGEN 2021-03-12 Haresh Casarez [place] of 04:26:00 [facility] MAGNESIUM 2021-03-11 Umberto [facility] of 11:06:00 [facility] BASIC METABOLIC PANEL (NA, K, CL, 2021-03-11 Aric Casarez [facility] of CO2, GLUCOSE, BUN, CREATININE, CA) 11:06:00 [facility] CBC WITH DIFF 2021-03-11 Haresh Casarez [place] of 11:06:00 [facility] MRSA / MSSA SCREEN BY PCR, MERA [facility] 11:[facility] PHOSPHORUS 2021-03-11 [facility] 00:35[facility]00 [facility] COVID-19 (ID NOW RAPID TESTING) 2021-03-10 Edward Reis of 17:41:00 [facility] LAB ONLY COVID INTERPRETATION 2021-03-10 Edward Reis [facility] of 17:41:00 [facility] XR CHEST 1 VW 2021-03-10 Singer Edwardsukumar Vogel of 15:32:47 [facility] LIPASE 2021-03-10 Singer [facility] of 15:22:00 [facility] TROPONIN I 2021-03-10 Singer [facility] of 15:22:00 [facility] COMP. METABOLIC PANEL (78424) 2021-03-10 Edward Reis [facility] of 15:22:00 [facility] CBC WITH DIFF 2021-03-10 Singer [facility] of 15:22:00 [facility] PROTHROMBIN TIME / INR 2021-03-10 Edward Reis [facility] of 15:22:00 [facility] ACTIVATED PARTIAL THRMPLAS LORRIE 2021-03-10 Edward Reis [facility] of 15:22:00 [facility] HB ECG ROUTINE & RHYTHM STRIP 2021-03-10 Edward Reis [facility] of 15:19:21 [facility] CONSENT/REFUSAL FOR DIAGNOSIS AND 2021-03-10 Doctor Zafar powell, [facility] 15:02:16 [facility] HOSPITAL ADMISSION 2021-03-10 Doctor Rosalinda, [facility] 06:01:00 [facility] AUTHORIZATION FOR RELEASE OF PHI 2021-02-21 Doctor Unassallison ed, [facility] 06:01:00 [facility] EXTERNAL PROVIDER - ADC REFERRAL 2021-01-20 Doctor Oliviassign , [facility] 06:01:[address] [facility] [address] CHEST EXTERNAL STUDY 2020-12-17 Nawaf Wynn 19:33:00 Hospital ECG 12-LEAD 2020-11-29 Fernanda Guillermo 17:14:[address] CHEST EXTERNAL STUDY 2020-11-23 Nawaf Wynn 16:06:00 Hospital Tonsillectomy 1973-02-05 [facility] Medical 00:00:00 Hysterectomy [facility] Open Reduction of Fracture of Pr ia Medical [facility] Plan of Care Planned Activity Planned Date Details Comments Source Future Scheduled 2022-12-11 Screening for [facility] Test 11:04:07 malignant neoplasm of colon (procedure) [code = 233898922] Future Scheduled 2022-12-11 Screening for [facility] Test 11:04:07 malignant neoplasm of colon (procedure) [code = 828718872] Future Scheduled 2022-12-11 Screening for [facility] Test 11:04:07 malignant neoplasm of cervix (procedure) [code = 201445868] Future Scheduled 2022-12-11 Screening for [facility] Test 11:04:07 malignant neoplasm of lung (procedure) [code = 248494608] Future Scheduled 2022-12-11 SHINGLES VACCINES ([address] [facility] Test 11:04:07 of 3) [code = SHINGLES VACCINES (2 of 3)] Future Scheduled 2022-12-11 COVID-19 VACCINE (5 - [facility] Test 11:04:07 season) [code = COVID-19 VACCINE ( - season)] Future Scheduled 2022-12-11 INFLUENZA VACCINE Method [facility] Test 11:04:07 (#1) [code = INFLUENZA VACCINE (#1)] Future Scheduled 2022-12-11 BREAST CANCER [facility] Test 11:04:07 SCREENING [code = BREAST CANCER SCREENING] Future Scheduled 2022-12-11 Screening for [facility] Test 11:04:07 malignant neoplasm of colon (procedure) [code = 343852883] Future Scheduled 2022-12-11 Pneumococcal Vaccine: [facility] Test 11:04:07 Pediatrics (0 to 5 Years) and At-Risk Patients (6 to 64 Years) (3 - PPSV23 or PCV20) [code = Pneumococcal Vaccine: Pediatrics (0 to 5 Years) and At-Risk Patients (6 to 64 Years) (3 - PPSV23 or PCV20)] Future Scheduled 2022-12-11 Screening for [facility] Test 11:04:07 malignant neoplasm of colon (procedure) [code = 702196672] Future Scheduled 2022-12-11 Screening for [facility] Test 11:04:07 malignant neoplasm of colon (procedure) [code = 678668913] Future Scheduled 2022-12-11 Screening for [facility] Test 11:04:07 malignant neoplasm of colon (procedure) [code = 873631205] Future Scheduled 2022-12-11 Screening for [facility] Test 11:04:07 malignant neoplasm of colon (procedure) [code = 786187542] Future Scheduled 2022-12-11 Screening for [facility] Test 11:04:07 malignant neoplasm of cervix (procedure) [code = 469994277] Future Scheduled 2022-12-11 Screening for [facility] Test 11:04:07 malignant neoplasm of lung (procedure) [code = 627210708] Future Scheduled 2022-12-11 SHINGLES VACCINES ([address] [facility] Test 11:04:07 of 3) [code = SHINGLES VACCINES (2 of 3)] Future Scheduled 2022-12-11 COVID-19 VACCINE (5 - [facility] Test 11:04:07 ) [code = COVID-19 VACCINE ( - season)] Future Scheduled 2022-12-11 INFLUENZA VACCINE Method [facility] Test 11:04:07 (#1) [code = INFLUENZA VACCINE (#1)] Future Scheduled 2022-12-11 BREAST CANCER [facility] Test 11:04:07 SCREENING [code = BREAST CANCER SCREENING] Future Scheduled 2022-12-11 Screening for [facility] Test 11:04:07 malignant neoplasm of colon (procedure) [code = 834771931] Future Scheduled 2022-12-11 Pneumococcal Vaccine: [facility] Test 11:04:07 Pediatrics (0 to 5 Years) and At-Risk Patients (6 to 64 Years) (3 - PPSV23 or PCV20) [code = Pneumococcal Vaccine: Pediatrics (0 to 5 Years) and At-Risk Patients (6 to 64 Years) (3 - PPSV23 or PCV20)] Future Scheduled 2022-12-11 Screening for [facility] Test 11:04:07 malignant neoplasm of colon (procedure) [code = 598651883] Future Scheduled 2022-12-11 Screening for [facility] Test 11:04:07 malignant neoplasm of colon (procedure) [code = 116958791] Future Scheduled 2022-11-25 COVID-19 Vaccination [facility] Test 04:00:44 () MD Ranul[facility] [code = COVID-19 Center Vaccination ()] Future Scheduled 2022-11-25 COVID-19 Vaccination [facility] Test 04:00:44 ( season) MD Ranulfo contreras Cancer [code = COVID-19 Center Vaccination ()] Future Scheduled 2022-11-02 [facility] Test 09:48:00 malignant neoplasm of colon (procedure) [code = 528215491] Future Scheduled 2022-11-02 Screening for [facility] Test 09:48:00 malignant neoplasm of colon (procedure) [code = 285560198] Future Scheduled 2022-11-02 Screening for [facility] Test 09:48:00 malignant neoplasm of cervix (procedure) [code = 240798983] Future Scheduled 2022-11-02 Screening for [facility] Test 09:48:00 malignant neoplasm of lung (procedure) [code = 209125693] Future Scheduled 2022-11-02 SHINGLES [facility]ACCINES ([facility] Test 09:48:00 of 3) [code = SHINGLES VACCINES (2 of 3)] Future Scheduled 2022-11-02 INFLUENZA VACCINE Method [facility] Test 09:48:00 (#1) [code = INFLUENZA VACCINE (#1)] Future Scheduled 2022-11-02 BREAST CANCER [facility] Test 09:48:00 SCREENING [code = BREAST CANCER SCREENING] Future Scheduled 2022-11-02 Screening for [facility] Test 09:48:00 malignant neoplasm of colon (procedure) [code = 396022118] Future Scheduled 2022-11-02 Pneumococcal Vaccine: [facility] Test 09:48:00 Pediatrics (0 to 5 Years) and At-Risk Patients (6 to 64 Years) (3 - PPSV23 or PCV20) [code = Pneumococcal Vaccine: Pediatrics (0 to 5 Years) and At-Risk Patients (6 to 64 Years) (3 - PPSV23 or PCV20)] Future Scheduled 2022-11-02 Screening for [facility] Test 09:48:00 malignant neoplasm of colon (procedure) [code = 454099407] Future Scheduled 2022-11-02 Screening for [facility] Test 09:48:00 malignant neoplasm of colon (procedure) [code = 197728063] Future Scheduled 2022-07-10 [facility] Test 10:58:37 malignant neoplasm of colon (procedure) [code = 644260618] Future Scheduled 2022-07-10 Scre[facility] for [facility] Test 10:58:37 malignant neoplasm of colon (procedure) [code = 842733200] Future Scheduled 2022-07-10 Screening for [facility] Test 10:58:37 malignant neoplasm of cervix (procedure) [code = 956658140] Future Scheduled 2022-07-10 Screening for [facility] Test 10:58:37 malignant neoplasm of lung (procedure) [code = 656570494] Future Scheduled 2022-07-10 Screening for [facility] Test 10:58:37 malignant neoplasm of colon (procedure) [code = 687256806] Future Scheduled 2022-07-10 SHINGLES VACCINES ([address] [facility] Test 10:58:37 of 3) [code = SHINGLES VACCINES (2 of 3)] Future Scheduled 2022-07-10 INFLUENZA VACCINE Method t Hospital Test 10:58:37 [code = INFLUENZA VACCINE] Future Scheduled 2022-07-10 BREAST CANCER [facility] Test 10:58:37 SCREENING [code = BREAST CANCER SCREENING] Future Scheduled 2022-07-10 Pneumococcal Vaccine: [facility] Test 10:58:37 Pediatrics (0 to 5 Years) and At-Risk Patients (6 to 64 Years) (3 - PPSV23 if available, else PCV20) [code = Pneumococcal Vaccine: Pediatrics (0 to 5 Years) and At-Risk Patients (6 to 64 Years) (3 - PPSV23 if available, else PCV20)] Future Scheduled 2022-07-10 Screening for [facility] Test 10:58:37 malignant neoplasm of colon (procedure) [code = 798597285] Future Scheduled 2022-07-10 Screening for [facility] Test 10:58:37 malignant neoplasm of colon (procedure) [code = 171755616] Future Scheduled 2021-11-23 HEPATITIS B VACCINES Met [facility] Test 21:26:10 (1 of 3 - 3-dose series) [code = HEPATITIS B VACCINES (1 of 3 - 3-dose series)] Future Scheduled 2021-11-23 Screening for [facility] Test 21:26:10 malignant neoplasm of cervix (procedure) [code = 617467757] Future Scheduled 2021-11-23 BREAST CANCER [facility] Test 21:26:10 SCREENING [code = BREAST CANCER SCREENING] Future Scheduled 2021-11-23 COLONOSCOPY SCREENING [facility] Test 21:26:10 [code = COLONOSCOPY SCREENING] Future Scheduled 2021-11-23 SHINGLES VACCINES ([address] [facility] Test 21:26:10 of 2) [code = SHINGLES VACCINES (1 of 2)] Future Scheduled 2021-11-23 COVID-19 VACCINE (2 - [facility] Test 21:26:10 Pfizer series) [code = COVID-19 VACCINE (2 - Pfizer series)] Future Scheduled 2021-11-23 INFLUENZA VACCINE Method [facility] Test 21:26:10 [code = INFLUENZA VACCINE] Future Scheduled 2021-11-23 Pneumococcal Vaccine: [facility] Test 21:26:10 Pediatrics (0 to 5 Years) and At-Risk Patients (6 to 64 Years) (3 - PPSV23 if available, else PCV20) [code = Pneumococcal Vaccine: Pediatrics (0 to 5 Years) and At-Risk Patients (6 to 64 Years) (3 - PPSV23 if available, else PCV20)] Future Scheduled 2021-08-10 COVID-19 Vaccination [facility] Test 03:53:43 (#1) [code = COVID-19 MD And [facility] Cancer Vaccination (#1)] Center Diagnostic Test 2020-06-03 culture, sputum [code Mere via Medical Pending 00:00:00 = culture, sputum] Encounters Start End Encounter Admission Attending Care Care Encounter Source Date/Time Date/Time Type Type Clinicians Facility Department ID 2021-03-03 Outpatient 3 [id number] ENCPL REF [id number] [facility] 13:19:49 1118 [facility] itation Manish d 2021-01-03 Outpatient READMISSIO JULIA ENCCLR ENCCLR [id number] ENCCLR 14:31:15 N DEMI JAIMES 2021-01-03 Outpatient READMISSIO ENCGEN ENCGEN [id number] ENCGEN 13:24:39 N 2020-12-07 Emergency [facility] [id number] Univers 07:53:58 ity of [facility] 2020-12-06 Emergency [facility] [id number] Univers 05:50:24 ity of [facility] 2020-12-06 Emergency [facility] [id number] Univers 00:32:42 ity of [facility] 2020-12-05 Emergency [facility] [id number] Univers 17:40:10 ity of [facility] 2020-12-03 Emergency [facility] [id number] Univers 12:41:22 ity of [facility] 2022-11-28 2022-11-28 Abstract Chinmay, 1.2.840.1 [id number] Methodi 00:00:00 00:00:[address] 3.430.2.7 Hospit a .3.098281 l .8 2022-11-28 2022-11-28 Abstract Chinmay, 1.2.840.1 [id number] Methodi 00:00:00 00:00:[address] 3.430.2.7 Hospit a .3.410063 l .8 2022-11-20 2022-11-20 Orders Doctor LUIS 1.2.840.114 [id number] Univers 00:00:00 00:00:00 Only Unassigned, TAYLOR 350.1.13.10 ity of [facility] 4.2.7.2.686 Lj as [id number] [address] 2022-11-13 2022-11-13 Telephone [facility] [id number] Univers 00:00:00 00:00:00 No S HEALTH 350.1.13.10 it y of [place] 4.2.7.2.686 Lj as OZZY?BLEA [id number] Al dical LIZZETTE[address] MEDICAL OFFICE BUILDING 2022-11-10 2022-11-10 [facility] 1.2.840.114 [id number] Univers 11:13:40 23:59:00 Encounter No S HEALTH 350.1.13.10 ity of [place] 4.2.7.2.686 Lj as OZZY?BLEA [id number] Al joe BETANCOURT 809 [facility] OFFICE [facility] 2022-11-10 2022-11-10 Outpatient R BRYAN [facility] [id number] Univers 10:30:00 11:28:05 NO ity [facility] 2022-11-10 2022-11-10 Office [facility] 1.2.840.114 [id number] Univers 10:30:00 11:28:05 Visit [facility] 350.1.13.10 it y of [place] 4.2.7.2.686 Lj as OZZY?BLEA [id number] Al joe BETANCOURT 198 [facility] OFFICE [facility] 2022-11-10 2022-11-10 [facility] 1.2.840.114 [id number] Univers 10:49:34 11:12:00 Encounter [facility] HEALTH 350.1.13.10 ity of [place] 4.2.7.2.686 Lj as OZZY?BLEA [id number] Al joe BETANCOURT 809 [facility] 2022-11-10 2022-11-10 [facility] 1.2.840.114 [id number] Univers 10:37:59 10:48:00 Encounter [facility] 350.1.13.10 ity of [place] 4.2.7.2.686 Lj as OZZY?BLEA [id number] Al joe BETANCOURT 809 [facility] 2022-11-05 2022-11-06 Emergency X [facility] ERT [id number] Univers 23:45:00 03:32:00 PORSCHE ity [facility] 2022-11-05 2022-11-06 Emergency [facility] 1.2.840.114 [id number] Univers 23:45:00 03:32:00 Porsche MENCHACA 350.1.13.10 [facility]y [facility] 4.2.7.2.[place] [facility] [place] [id number] [address] 2022-10-30 2022-10-30 Shahrzad Lutz, 1.2.840.1 [id number] Methodi 00:00:00 00:00:[address] [place] 3.430.2.7 Hospit a .3.470627 l .8 2022-10-30 2022-10-30 Refivon Lutz, 1.2.840.1 [id number] Methodi 00:00:00 00:00:[address] [place] 3.430.2.7 Hospit a .3.464998 l .8 2022-10-10 2022-10-10 Telephone Chinmay, 1.2.840.1 [id number] Methodi 00:00:00 00:00:[address] 3.430.2.7 Hospit a .3.412269 l .8 2022-10-10 2022-10-10 Telephone Chinmay, 1.2.840.1 [id number] Methodi 00:00:00 00:00:[address] 3.430.2.7 Hospit a .3.150773 l .8 2022-10-02 2022-10-02 Orders Loree, 1.2.840.1 [id number] Methodi 00:00:00 00:00:00 Only Angelica 71344.1.[address] 3.430.2.7 Hospit a .3.579655 l .8 2022-10-02 2022-10-02 Orders Loree, 1.2.840.1 [id number] Methodi 00:00:00 00:00:00 Only Angelica 66024.1.[address] 3.430.2.7 Hospit a .3.772492 l .8 2022-09-21 2022-09-21 Telephone Nelda, 1.2.840.1 [id number] Methodi 00:00:00 00:00:[address] [place] 3.430.2.7 Hospit a .3.883537 l .8 2022-09-21 2022-09-21 Telephone Nelda, 1.2.840.1 [id number] Methodi 00:00:00 00:00:[address] [place] 3.430.2.7 Hospit a .3.758686 l .8 2022-08-31 2022-09-20 [facility] 1.2.840.1 [id number] Methodi 15:37:00 16:14:00 Encounter Nicole Coleman Desiree 86275.1.1 760 [facility] [place] 3.430.2.7 [facility] Dash .3.780033 l [facility] Abdulaziz .8 2022-08-31 2022-09-20 [facility] Aftab D. 1.2.840.1 [id number] 34 [id number] Methodi 15:37:00 16:14:00 Encounter VirginiaKimberlyNicole Anne 47588.1.1 760 SalmaDemi carlinMallory 3.430.2.7 Hospita DashVelasqueza .3.761011 l Jenae [facility] Abdulaziz .8 2022-09-19 2022-09-19 Surgery Alpesh Granados 1.2.840.1 [id number] 709 [id number] Methodi 13:30:00 15:30:[address] 3.430.2.7 Hospit a .3.188487 l .8 2022-09-19 2022-09-19 Surgery Alpesh Granados 1.2.840.1 761378731 771 2271004 Methodi 13:30:00 15:30:[address] 3.430.2.7 Hospit a .3.578155 l .8 2022-09-19 2022-09-19 Anesthesia Hernan Hampton 1.2.840.1 447288710 [id number] Methodi 14:14:00 14:50:00 Event Caleb Reid 16802.1.[address] 3.430.2.7 Hospit a .3.569949 l .8 2022-09-19 2022-09-19 Anesthesia Hernan Hampton 1.2.840.1 [id number] Methodi 14:14:00 14:50:00 Event Caleb Reid 18072.1.[address] 3.430.2.7 Hospit a .3.039482 l .8 2022-09-14 2022-09-14 Orders Doctor LUIS 1.2.840.114 [id number] 516 Univers 00:00:00 00:00:00 Only Unassigned, TAYLOR 350.1.13.10 ity of [place] [facility] 4.2.7.2.686 Lj as 470.6077134 [place] [address] [place] 2022-05-11 2022-09-08 Office Alpesh Granados 1.2.840.1 [id number] 796 [id number] Methodi 14:00:00 13:31:[address] 3.430.2.7 Hospit a .3.660582 l .8 2022-05-11 2022-09-08 Office Alpesh Granados 1.2.840.1 [id number] 090 3462928 Methodi 14:00:00 13:31:[address] 3.430.2.7 Hospit a .3.205515 l .8 2022-09-05 2022-09-05 Surgery [facility], 1.2.840.1 [id number] 2100 654869 Methodi 09:00:00 09:30:[address] [place] 3.430.2.7 Hospit a .3.362786 l .8 2022-09-05 2022-09-05 Surgery [facility], 1.2.840.1 [id number] 2100 325155 Methodi 09:00:00 09:30:[address] [place] 3.430.2.7 Hospit a .3.779037 l .8 2022-09-05 2022-09-05 Anesthesia AmolHernan larsen 1.2.840.1 [id number] Methodi 08:49:00 09:09:00 Event Dionne Patiño 96250.1.[address] 3.430.2.7 Hospit a .3.115285 l .8 2022-09-05 2022-09-05 Anesthesia Amolchava Hernan Bell 1.2.840.1 [id number] Methodi 08:49:00 09:09:00 Event Kaylyn Dionne 60582.1.[address] 3.430.2.7 Hospit a .3.055025 l .8 2022-09-01 2022-09-01 [facility] 1.2.752.709 3059 52748 Univers 00:00:00 00:00:00 Sabino MENCHACA 350.1.13.10 i ty of ALMO 4.2.7.2.686 Nabeel IVAN [id number] [address] 2022-09-01 2022-09-01 Telephone Renny, 1.2.840.1 [id number] 690 [id number] Methodi 00:00:00 00:00:[address] 3.430.2.7 Hospit a .3.199747 l .8 2022-09-01 2022-09-01 Telephone [facility], 1.2.840.1 [id number] 455 [id number] Methodi 00:00:00 00:00:[address] 3.430.2.7 Hospit a .3.515287 l .8 2022-08-31 2022-08-31 [facility], 1.2.840.1 [id number] 23313 39700 Methodi 10:00:00 15:36:00 Encounter Nawaf Blair 09611.1.[address] 3.430.2.7 Hospit a .3.100767 l .8 2022-08-31 2022-08-31 [facility] Wynn, 1.2.840.1 [id number] 97553 22841 Methodi 10:00:00 15:36:00 Encounter Nawaf Blair 34836.1.[address] 3.430.2.7 Hospit a .3.977588 l .8 2022-08-31 2022-08-31 Office Nawaf Wynn 1.2.840.1 1363631 34 [id number] Methodi 13:15:00 13:30:00 Visit Alpesh Granados 35974.1.1 487 s t Simran Carr 3.430.2.7 Hospita .3.340575 l .8 2022-08-31 2022-08-31 Office Nawaf Wynn 1.2.840.1 9428583 34 [id number] Methodi 13:15:00 13:30:00 Visit Alpesh Granados 19917.1.1 487 s Simran Neff 3.430.2.7 Hospita .3.105450 l .8 2022-08-31 2022-08-31 [facility], 1.2.840.1 [id number] 26689 51830 Methodi 08:00:00 09:59:00 Encounter Nawaf Blair 91059.1.[address] 3.430.2.7 Hospit a .3.870747 l .8 2022-08-31 2022-08-31 [facility], 1.2.840.1 [id number] 12061 98739 Methodi 08:00:00 09:59:00 Encounter Nawaf Blair 40669.1.[address] 3.430.2.7 Hospit a .3.353430 l .8 2022-08-31 2022-08-31 Orders Doctor LUIS 1.2.840.114 [id number] 030 [facility] 00:00:00 00:00:00 Only Unassigned, TAYLOR 350.1.13.10 [place] of [place] [facility] 4.2.7.2.686 Lj as [id number] [facility] [address] 2022-08-31 2022-08-31 Documentat Loree, 1.2.840.1 037241722 387 4124285 Methodi 00:00:00 00:00:00 ion Angelica 16672.1.[address] 3.430.2.7 Hospit a .3.885190 l .8 2022-08-31 2022-08-31 [facility] [id number] [address] [place] [address] 00:00:00 00:00:00 NAWAF Teresa Method i st 2022-08-31 2022-08-31 Documentat Loree, 1.2.840.1 [id number] 867 4672103 Methodi 00:00:00 00:00:00 ion Angelica 70120.1.[address] 3.430.2.7 Hospit a .3.626820 l .8 2022-07-10 2022-07-10 Documentat Wynn, 1.2.840.1 102694460 084 6498265 Methodi 00:00:00 00:00:00 ion Nawaf Rossy 15602.1.[address] 3.430.2.7 Hospit a .3.217801 l .8 2022-07-10 2022-07-10 Documentat Kingsley, 1.2.840.1 136420462 858 9499569 Methodi 00:00:00 00:00:00 ion Nawaf Blair 32097.1.[address] 3.430.2.7 Hospit a .3.977519 l .8 2022-06-22 2022-07-06 Office Nawaf Wynn 1.2.840.1 7350044 34 [id number] Methodi 12:30:00 15:16:59 Visit Beulah Vyasd 06414.1.[address] 3.430.2.7 Hospit a .3.629370 l .8 2022-06-22 2022-07-06 Office Nawaf Wynn 1.2.840.1 0097592 34 [id number] Methodi 12:30:00 15:16:59 Visit Beulah Vyasd 22457.1.[address] 3.430.2.7 Hospit a .3.718314 l .8 2022-07-04 2022-07-04 Orders Loree, 1.2.840.1 [id number] 909499 7218 Methodi 00:00:00 00:00:00 Only Angelica 78855.1.[address] 3.430.2.7 Hospit a .3.494898 l .8 2022-07-04 2022-07-04 Orders Loree, 1.2.840.1 [id number] 571283 4482 Methodi 00:00:00 00:00:00 Only Angelica 89463.1.[address] 3.430.2.7 Hospit a .3.459823 l .8 2022-06-28 2022-06-28 Refill Loree, 1.2.840.1 346875233 523481 5602 Methodi 00:00:00 00:00:[address] 3.430.2.7 Hospit a .3.958969 l .8 2022-06-28 2022-06-28 Refill Loree, 1.2.840.1 420749149 741912 8634 Methodi 00:00:00 00:00:[address] 3.430.2.7 Hospit a .3.425310 l .8 2022-06-26 2022-06-26 Telephone Chinmay, 1.2.840.1 024319263 2099 346142 Methodi 00:00:00 00:00:[address] 3.430.2.7 Hospit a .3.631378 l .8 2022-06-26 2022-06-26 Telephone Moy, 1.2.840.1 [id number] 2099 260475 Methodi 00:00:00 00:00:[address] 3.430.2.7 Hospit a .3.265086 l .8 2022-06-23 2022-06-23 Documentat Blamo, 1.2.840.1 677993451 335 0490422 Methodi 00:00:00 00:00:[address] ion [address] 20023.1.[address] 3.430.2.7 Hospit a .3.575926 l .8 2022-06-23 2022-06-23 Documentat Blamo, 1.2.840.1 885863900 734 7792933 Methodi 00:00:00 00:00:[address]21.1.[address] 3.430.2.7 Hospit a .3.383955 l .8 2022-06-22 2022-06-22 Hospital Wynn, 1.2.840.1 [id number] 25560 Methodi 09:30:00 23:59:00 Encounter Nawaf Rudolph50.1.[address] 3.430.2.7 Hospit a .3.227469 l .8 2022-06-22 2022-06-22 [facility], 1.2.840.1 [id number] 63172 Methodi 09:30:00 23:59:00 Encounter Nawaf Rudolph50.1.[address] 3.430.2.7 Hospit a .3.347511 l .8 2022-06-22 2022-06-22 [facility], 1.2.840.1 [id number] 21001 36138 Methodi 08:00:00 09:29:00 Encounter Nawaf Blair 59118.1.[address] 3.430.2.7 Hospit a .3.642362 l .8 2022-06-22 2022-06-22 [facility], 1.2.840.1 [id number] 21001 41255 Methodi 08:00:00 09:29:00 Encounter Nawaf Rudolph50.1.[address] 3.430.2.7 Hospit a .3.497691 l .8 2022-06-22 2022-06-22 Travel 1.2.840.1 1.2.375.270 7949 318626 Methodi 00:00:00 00:00:[address] 3.430.2.7 0.2.7.3.698 Ho spita .3.061822 084.8 l .8 2022-06-22 2022-06-22 Travel 1.2.840.1 1.2.671.770 1767 592759 Methodi 00:00:00 00:00:[address] 3.430.2.7 0.2.7.3.698 Ho spita .3.773948 084.8 l .8 2022-06-22 2022-06-22 [facility] 1467508 [address] [place] [address] 00:00:00 00:00:00 NAWAF [address] 2022-06-15 2022-06-15 Documentat Breeyz, 1.2.840.1 [id number] 21 [id number] Methodi 00:00:00 00:00:[address] 3.430.2.7 Hospit a .3.687781 l .8 2022-06-15 2022-06-15 Documentat Breezy, 1.2.840.1 534674175 09535608 Methodi 00:00:00 00:00:[address] 3.430.2.7 Hospit a .3.432779 l .8 2022-06-13 2022-06-13 Orders Loree, 1.2.840.1 [id number] 975253 6467 Methodi 00:00:00 00:00:00 Only Angelica 15160.1.[address] 3.430.2.7 Hospit a .3.759934 l .8 2022-06-13 2022-06-13 Orders Loree, 1.2.840.1 [id number] 557297 2107 Methodi 00:00:00 00:00:00 Only Angelica 75639.1.[address] 3.430.2.7 Hospit a .3.903510 l .8 2022-05-11 2022-05-11 [facility], 1.2.840.1 856553475 91913 47226 Methodi 09:55:57 23:59:00 Encounter Nawaf Blair 92108.1.[address] 3.430.2.7 Hospit a .3.230947 l .8 2022-05-11 2022-05-11 [facility], 1.2.840.1 135077285 19309 70451 Methodi 09:55:57 23:59:00 Encounter Nawaf Singh.1.[address] 3.430.2.7 Hospit a .3.358371 l .8 2022-05-11 2022-05-11 [facility], 1.2.840.1 [id number] 06104 54653 Methodi 08:00:00 09:54:00 Encounter Nawaf J. 55853.1.[address] 3.430.2.7 Hospit a .3.808891 l .8 2022-05-11 2022-05-11 [facility], 1.2.840.1 [id number] 05385 Methodi 08:00:00 09:54:00 Encounter Nawaf Blair 85877.1.[address] 3.430.2.7 Hospit a .3.356397 l .8 2022-05-11 2022-05-11 [facility], 1.2.840.1 [id number] 32721 Methodi 07:30:00 07:59:00 Encounter Nawaf Blair 15017.1.[address] 3.430.2.7 Hospit a .3.998292 l .8 2022-05-11 2022-05-11 [facility], 1.2.840.1 090979611 21001 99538 Methodi 07:30:00 07:59:00 Encounter Nawaf Blair 55058.1.[address] 3.430.2.7 Hospit a .3.375111 l .8 2022-05-11 2022-05-11 Outpatient [facility] [id number] [address] [place] 00:00:00 00:00:00 NAWAF [address] 2022-05-11 2022-05-11 Outpatient [facility] [id number] [address] [place] 00:00:00 00:00:00 NAWAF Calles Method i st 2022-05-11 2022-05-11 Documentat Loree, 1.2.840.1 [id number] 890 0270975 Methodi 00:00:00 00:00:00 gopal Dom[address]uez [address]47.1.[address] 3.430.2.7 Hospit a .3.606274 l .8 2022-05-11 2022-05-11 Travel 1.2.840.1 1.2.363.237 6417 250777 Methodi 00:00:00 00:00:[address] 3.430.2.7 0.2.7.3.698 Ho spita .3.997984 084.8 l .8 2022-05-11 2022-05-11 Documentat Loree, 1.2.840.1 789827304 916 5201782 Methodi 00:00:00 00:00:00 ion Angelica 60299.1.[address] 3.430.2.7 Hospit a .3.594404 l .8 2022-05-11 2022-05-11 Travel 1.2.840.1 1.2.197.974 2274 120153 Methodi 00:00:00 00:00:[address] 3.430.2.7 0.2.7.3.698 Ho spita .3.180173 084.8 l .8 2022-05-05 2022-05-05 Documentat [place], 1.2.840.1 214130187 525 9397103 Methodi 00:00:00 00:00:00 ion Gina 95406.1.[address] 3.430.2.7 Hospit a .3.407728 l .8 2022-05-05 2022-05-05 Telephone [place], 1.2.840.1 [id number] 2099 837805 Methodi 00:00:00 00:00:[address] 3.430.2.7 Hospit a .3.737340 l .8 2022-05-05 2022-05-05 Orders Doctor LUIS 1.2.840.114 114107 493 Univers 00:00:00 00:00:00 Only Unassigned, TAYLOR 350.1.13.10 [facility] [facility] [place] [facility] 4.2.7.2.686 Lj as 091.3822702 [place] [address] [place] 2022-05-05 2022-05-05 Documentat [place], 1.2.840.1 [id number] 037 7427064 Methodi 00:00:00 00:00:00 ion Gina [address]336.1.[address] 3.430.2.7 Hospit a .3.801278 l .8 2022-05-05 2022-05-05 Telephone [place], 1.2.840.1 908751976 2099 292139 Methodi 00:00:00 00:00:[address] 3.430.2.7 Hospit a .3.354460 l .8 2022-05-04 2022-05-04 Telemedici Lutz, 1.2.840.1 316947778 21 37726342 Methodi 13:15:00 13:38:04 ne Fernandez 42683.1.[address] [place] 3.430.2.7 Hospit a .3.840503 l .8 2022-05-04 2022-05-04 Telemedici Nelda, 1.2.840.1 101346570 21 52155178 Methodi 13:15:00 13:38:04 ne Fernandez 88982.1.[address] [place] 3.430.2.7 Hospit a .3.692968 l .8 2022-05-03 2022-05-03 Telephone [place], 1.2.840.1 [id number] 2099 170818 Methodi 00:00:00 00:00:[address] 3.430.2.7 Hospit a .3.732480 l .8 2022-05-03 2022-05-03 Telephone [place], 1.2.840.1 [id number] 2099 847375 Methodi 00:00:00 00:00:[address] 3.430.2.7 Hospit a .3.684184 l .8 2022-04-26 2022-04-27 [facility] 1.2.840.1 96358 1035 8538107742 Methodi 05:54:00 12:22:00 Encounter Demi Cuello 21853.1.[address] Aftab Murphy 3.430.2.7 Hospita .3.417577 l .8 2022-04-26 2022-04-27 [facility] Cesar 1.2.840.1 20406 1035 [id number] Methodi 05:54:00 12:22:00 Encounter Demi Cuello 74726.1.[address] Aftab Murphy 3.430.2.7 Hospita .3.921762 l .8 2022-04-26 2022-04-26 Anesthesia Luis Valencia 1.2.840.1 1 59209976 8841621852 Methodi 08:11:00 10:44:00 Event Maryellen Roach 19059.1.[address] 3.430.2.7 Hospit a .3.410997 l .8 2022-04-26 2022-04-26 Anesthesia Luis Valencia 1.2.840.1 1 71658058 2279292741 Methodi 08:11:00 10:44:00 Event Maryellen Roach 27657.1.[address] 3.430.2.7 Hospit a .3.610194 l .8 2022-04-26 2022-04-26 Surgery Joy, 1.2.840.1 723449134 223010 4889 Methodi 08:00:00 10:05:[address] 3.430.2.7 Hospit a .3.581901 l .8 2022-04-26 2022-04-26 Surgery Hamilton, 1.2.840.1 809427830 786501 1966 Methodi 08:00:00 10:05:[address] 3.430.2.7 Hospit a .3.818495 l .8 2022-04-26 2022-04-26 Documentat Loree, 1.2.840.1 639735864 892 4114883 Methodi 00:00:00 00:00:00 ion Angelica 37531.1.[address] 3.430.2.7 Hospit a .3.302037 l .8 2022-04-26 2022-04-26 Documentat Loree, 1.2.840.1 582145750 344 0465225 Methodi 00:00:00 00:00:00 ion Angelica 31734.1.[address] 3.430.2.7 Hospit a .3.201401 l .8 2022-04-26 2022-04-26 Travel 1.2.840.1 1.2.345.169 4819 390507 Methodi 00:00:00 00:00:[address] 3.430.2.7 0.2.7.3.698 Ho spita .3.109216 084.8 l .8 2022-04-26 2022-04-26 Documentat Loree, 1.2.840.1 631583392 469 4263682 Methodi 00:00:00 00:00:00 ion Angelica 30379.1.[address] 3.430.2.7 Hospit a .3.794993 l .8 2022-04-26 2022-04-26 Documentat Olree, 1.2.840.1 642084914 229 6437259 Methodi 00:00:00 00:00:00 ion Angelica [address]455.1.[address] 3.430.2.7 Hospit a .3.269494 l .8 2022-04-26 2022-04-26 Travel 1.2.840.1 1.2.821.204 9821 205093 Methodi 00:00:00 00:00:[address] 3.430.2.7 0.2.7.3.698 spita .3.113369 084.8 l .8 2022-04-24 2022-04-24 [facility], 1.2.840.1 780803144 38 Methodi 10:00:00 23:59:00 Encounter Nawaf Blair 87150.1.[address] 3.430.2.7 Hospit a .3.729223 l .8 2022-04-24 2022-04-24 [facility], 1.2.840.1 Methodi 10:00:00 23:59:00 Encounter Nawaf Blair 78124.1.[address] 3.430.2.7 Hospit a .3.938308 l .8 2022-04-24 2022-04-24 Office Beulah Vyas 1.2.840.1 23295 1234 [id number] Methodi 13:00:00 13:15:00 Visit AntonioinesZuleika torrespatricia 83944.1.[address] 3.430.2.7 Hospit a .3.498537 l .8 2022-04-24 2022-04-24 Office Beulah Vyas 1.2.840.1 19805 1234 [id number] Methodi 13:00:00 13:15:00 Visit AntonioinesZuleika torrespatricia 98760.1.[address] 3.430.2.7 Hospit a .3.375057 l .8 2022-04-24 2022-04-24 [facility], 1.2.840.1 [id number] 97 Methodi 08:30:00 09:59:00 Encounter Nawaf Blair 84205.1.[address] 3.430.2.7 Hospit a .3.051408 l .8 2022-04-24 2022-04-24 [facility], 1.2.840.1 271705502 97 Methodi 08:30:00 09:59:00 Encounter Nawaf Blair 33724.1.[address] 3.430.2.7 Hospit a .3.209964 l .8 2022-04-24 2022-04-24 [facility], 1.2.840.1 097985824 97 Methodi 06:42:07 08:29:00 Encounter Nawaf Blair 04549.1.[address] 3.430.2.7 Hospit a .3.890098 l .8 2022-04-24 2022-04-24 [facility], 1.2.840.1 067248934 97 Methodi 06:42:07 08:29:00 Encounter Nawaf Blair 65197.1.[address] 3.430.2.7 Hospit a .3.801639 l .8 2022-04-24 2022-04-24 [facility] 2536250 [address] [place] 00:00:00 00:00:00 NAWAF Tejada Method i st 2022-04-24 2022-04-24 Orders Loree, 1.2.840.1 256525259 157653 4934 Methodi 00:00:00 00:00:00 Only Angelica 68187.1.[address] 3.430.2.7 Hospit a .3.015693 l .8 2022-04-24 2022-04-24 Refill Loree, 1.2.840.1 869352100 058305 1951 Methodi 00:00:00 00:00:[address] 3.430.2.7 Hospit a .3.585237 l .8 2022-04-24 2022-04-24 Refill Loree, 1.2.840.1 813516338 414964 0791 Methodi 00:00:00 00:00:[address] 3.430.2.7 Hospit a .3.367199 l .8 2022-04-24 2022-04-24 Travel 1.2.840.1 1.2.046.554 4189 232762 Methodi 00:00:00 00:00:[address] 3.430.2.7 0.2.7.3.698 Ho spita .3.109214 084.8 l .8 2022-04-24 2022-04-24 Orders Loree, 1.2.840.1 243507801 874334 5668 Methodi 00:00:00 00:00:00 Only Angelica 97458.1.[address] 3.430.2.7 Hospit a .3.438790 l .8 2022-04-24 2022-04-24 Refill Loree, 1.2.840.1 215192300 380686 6390 Methodi 00:00:00 00:00:[address] 3.430.2.7 Hospit a .3.927625 l .8 2022-04-24 2022-04-24 Refill Loree, 1.2.840.1 271801067 499422 3930 Methodi 00:00:00 00:00:[address] 3.430.2.7 Hospit a .3.819027 l .8 2022-04-24 2022-04-24 Travel 1.2.840.1 1.2.956.038 2578 322743 Methodi 00:00:00 00:00:[address] 3.430.2.7 0.2.7.3.698 spita .3.923969 084.8 l .8 2022-04-20 2022-04-20 Telephone Darci, 1.2.840.1 250038002 2099 381925 Methodi 00:00:00 00:00:[address] 3.430.2.7 Hospit a .3.715350 l .8 2022-04-20 2022-04-20 Telephone Darci, 1.2.840.1 [id number] 2099 448255 Methodi 00:00:00 00:00:[address] 3.430.2.7 Hospit a .3.504737 l .8 2022-04-12 2022-04-12 Pre-Admiss Cesar Hamilton 1.2.840.1 104 768825 0935957359 Methodi 12:00:00 13:00:00 Mary[address] Maher 02020.1.[address] Testing 3.430.2.7 Hospit a .3.738519 l .8 2022-04-12 2022-04-12 Pre-Admiss Cesar Hamilton 1.2.840.1 104 368802 5756392379 Methodi 12:00:00 13:00:00 [address]her [address]157.1.[address] Testing 3.430.2.7 Hospit a .3.096581 l .8 2022-04-12 2022-04-12 Travel 1.2.840.1 1.2.591.733 2904 759228 Methodi 00:00:00 00:00:[address] 3.430.2.7 0.2.7.3.698 Ho spita .3.692021 084.8 l .8 2022-04-12 2022-04-12 Travel 1.2.840.1 1.2.979.096 2863 443005 Methodi 00:00:00 00:00:[address] 3.430.2.7 0.2.7.3.698 Ho spita .3.558417 084.8 l .8 2022-04-07 2022-04-07 Travel 1.2.840.1 1.2.039.117 4906 656473 Methodi 00:00:00 00:00:[address] 3.430.2.7 0.2.7.3.698 Ho spita .3.823673 084.8 l .8 2022-04-07 2022-04-07 Travel 1.2.840.1 1.2.657.573 5793 294215 Methodi 00:00:00 00:00:[address] 3.430.2.7 0.2.7.3.698 Ho spita .3.362064 084.8 l .8 2022-04-04 2022-04-04 Documentat Loree, 1.2.840.1 [id number] 647 9652307 Methodi 00:00:00 00:00:00 [address]2882.1.[address] 3.430.2.7 Hospit a .3.775384 l .8 2022-04-04 2022-04-04 Refill Loree, 1.2.840.1 [id number] 546194 1853 Methodi 00:00:00 00:00:[address] 3.430.2.7 Hospit a .3.577145 l .8 2022-04-04 2022-04-04 Refill Loree, 1.2.840.1 [id number] 178932 5873 Methodi 00:00:00 00:00:[address] 3.430.2.7 Hospit a .3.666683 l .8 2022-04-04 2022-04-04 Documentat Loree, 1.2.840.1 428060114 872 3512638 Methodi 00:00:00 00:00:00 ion [address]ica [address]648.1.[address] 3.430.2.7 Hospit a .3.514002 l .8 2022-04-04 2022-04-04 Refill Loree, 1.2.840.1 499812035 775294 8171 Methodi 00:00:00 00:00:[address] 3.430.2.7 Hospit a .3.883332 l .8 2022-04-04 2022-04-04 Refill Loree, 1.2.840.1 501305703 496114 5261 Methodi 00:00:00 00:00:[address] 3.430.2.7 Hospit a .3.988841 l .8 2022-04-03 2022-04-03 Outpatient R RADIOLOGY [facility] 13308 [id number] Univers 12:15:13 23:59:00 ity of [facility] 2022-04-03 2022-04-03 Hospital Radiology [facility] 1.2.840.114 999 35318 Univers 12:15:13 23:59:00 Encounter ANGLEARVIN 350.1.13.10 ity of [place] 4.2.7.2.686 [facility] [phone] [facility] [address] 2022-04-03 2022-04-03 Orders Doctor LUIS 1.2.840.114 [id number] 755 Univers 00:00:00 00:00:00 Only Unassigned, TAYLOR 350.1.13.10 ity of [place] [facility] 4.2.7.2.686 [facility] [id number] [facility] [address] 2022-03-26 2022-04-02 [facility] Karina Pettit 1.2.840.1 [id number] 21 [id number] Methodi 09:00:00 12:18:00 Encounter Rickie Santana 62720.1.[address] 3.430.2.7 Hospit a .3.107703 l .8 2022-03-26 2022-04-02 [facility] Sally Pettitky 1.2.840.1 [id number] 21 [id number] Methodi 09:00:00 12:18:00 Encounter Rickie Santana Tellez 11914.1.[address] 3.430.2.7 Hospit a .3.765575 l .8 2022-04-02 2022-04-02 Orders Edith, 1.2.840.1 [id number] 67906 79157 Methodi 00:00:00 00:00:00 Only Jihad 87476.1.[address] [place] 3.430.2.7 Hospit a .3.125370 l .8 2022-04-02 2022-04-02 Orders Edith, 1.2.840.1 [id number] 20466 Methodi 00:00:00 00:00:00 Only Timad 76444.1.[address] Var[place] 3.430.2.7 Hospit a .3.801929 l .8 2022-03-31 2022-03-31 Documentat James, 1.2.840.1 [id number] 497 9394079 Methodi 00:00:00 00:00:00 ion Solmaz 36886.1.[address] 3.430.2.7 Hospit a .3.302396 l .8 2022-03-31 2022-03-31 Documentat James, 1.2.840.1 [id number] 206 8060260 Methodi 00:00:00 00:00:00 ion Solmaz 03525.1.[address] 3.430.2.7 Hospit a .3.188271 l .8 2022-03-28 2022-03-28 Orders Doctor GOMEZ 1.2.840.114 [id number] 795 Univers 00:00:00 00:00:00 Only Unassigned, TAYLOR 350.1.13.10 [facility] [place] [facility] 4.2.7.2.686 Lj as [phone] [address] 2022-03-27 2022-03-27 Anesthesia Demetrius Jaquez 1.2.840.1 [id number] [id number] Methodi 13:40:00 14:48:00 Event Dionne Patiño 15307.1.[address] 3.430.2.7 Hospit a .3.413769 l .8 2022-03-27 2022-03-27 Anesthesia Demetrius Jaquez 1.2.840.1 [id number] 4292806560 Methodi 13:40:00 14:48:00 Event Dionne Patiño 94435.1.[address] 3.430.2.7 Hospit a .3.856766 l .8 2022-03-27 2022-03-27 Surgery Lutz, 1.2.840.1 691899934 86315 37281 Methodi 12:30:00 13:30:[address] [place] 3.430.2.7 Hospit a .3.701791 l .8 2022-03-27 2022-03-27 Surgery Lutz, 1.2.840.1 797608121 74541 30158 Methodi 12:30:00 13:30:[address] [place] 3.430.2.7 Hospit a .3.938953 l .8 2022-03-26 2022-03-26 Travel 1.2.840.1 1.2.815.608 9117 659505 Methodi 00:00:00 00:00:[address] 3.430.2.7 0.2.7.3.698 Ho spita .3.026720 084.8 l .8 2022-03-26 2022-03-26 Travel 1.2.840.1 1.2.687.389 7767 647010 Methodi 00:00:00 00:00:[address] 3.430.2.7 0.2.7.3.698 Ho spita .3.736491 084.8 l .8 2022-03-22 2022-03-22 Telephone Jinny, 1.2.840.1 355196112 393 9147812 Methodi 00:00:00 00:00:[address] 3.430.2.7 Hospit a .3.489868 l .8 2022-03-22 2022-03-22 Telephone Jinny, 1.2.840.1 154649631 523 3868951 Methodi 00:00:00 00:00:[address] 3.430.2.7 Hospit a .3.295774 l .8 2022-03-17 2022-03-17 Emergency X [facility] [id number] Univers 14:59:00 18:15:00 EDWARD quintero [facility] 2022-03-17 2022-03-17 Emergency [facility] 1.2.747.960 4581 09635 Univers 14:59:00 18:15:00 Edward MENCHACA 350.1.13.10 i ty [facility] 4.2.7.2.686 [facility] [id number] [address] 2022-03-16 2022-03-16 Office Nelda, 1.2.840.1 [id number] 88656 Methodi 10:30:00 10:30:00 Visit Fernandez 15835.1.[address] [place] 3.430.2.7 Hospit a .3.855596 l .8 2022-03-16 2022-03-16 Office Nelda, 1.2.840.1 [id number] 74920 Methodi 10:30:00 10:30:00 Visit Fernandez 44071.1.[address] [place] 3.430.2.7 Hospit a .3.493341 l .8 2022-03-16 2022-03-16 Travel 1.2.840.1 1.2.250.952 9110 486285 Methodi 00:00:00 00:00:[address] 3.430.2.7 0.2.7.3.698 Ho spita .3.989902 084.8 l .8 2022-03-16 2022-03-16 Travel 1.2.840.1 1.2.351.242 2513 839469 Methodi 00:00:00 00:00:[address] 3.430.2.7 0.2.7.3.698 Ho spita .3.354671 084.8 l .8 2022-03-13 2022-03-13 [facility], 1.2.840.1 [id number] 21 [id number] Methodi 11:20:00 12:19:07 ne Rainer H. 87417.1.[address] 3.430.2.7 Hospit a .3.560729 l .8 2022-03-13 2022-03-13 [facility], 1.2.840.1 [id number] 21 [id number] Methodi 11:20:00 12:19:07 ne Rainer H. 66871.1.[address] 3.430.2.7 Hospit a .3.917978 l .8 2022-03-04 2022-03-04 Emergency X EVELIA [facility] ERT [id number] Univers 00:07:00 04:48:00 RAKEL quintero [facility] 2022-03-04 2022-03-04 [facility] 1.2.942.020 3877 80037 Univers 00:07:00 04:48:00 Rakel MENCHACA 350.1.13.10 [facility] 4.2.7.2.686 [facility] [id number] [place] [address] 2022-03-01 2022-03-01 Emergency [facility] [id number] Univers 14:26:00 16:06:00 EDWARD quintero [facility] 2022-03-01 2022-03-01 [facility] [facility] 1.2.277.316 4990 40920 Univers 14:26:00 16:06:00 Edward MENCHACA 350.1.13.10 i ty [facility] 4.2.7.2.686 [facility] [phone] [facility] 084 Branch 2022-02-28 2022-02-28 Telephone Wing, 1.2.840.1 [id number] 2099 [id number] Methodi 00:00:00 00:00:[address] 3.430.2.7 Hospit a .3.411702 l .8 2022-02-28 2022-02-28 Telephone Wing, 1.2.840.1 [id number] 2099 653680 Methodi 00:00:00 00:00:[address] 3.430.2.7 Hospit a .3.298119 l .8 2022-02-21 2022-02-21 Telephone Darci, 1.2.840.1 [id number] 2099 904816 Methodi 00:00:00 00:00:[address] 3.430.2.7 Hospit a .3.564640 l .8 2022-02-21 2022-02-21 Patient Doctor LUIS 1.2.840.114 [id number] 35 Univers 00:00:00 00:00:00 Secure Msg Unassigned, TAYLOR 350.1.13.10 ity of [place] [facility] 4.2.7.2.686 [facility] [phone] [facility] 019 Branch 2022-02-21 2022-02-21 Telephone Darci 1.2.840.1 [id number] 2099 909876 Methodi 00:00:00 00:00:[address] 3.430.2.7 Hospit a .3.007261 l .8 2022-02-13 2022-02-13 Telephone Jaye 1.2.840.1 [id number] 83315068 Methodi 00:00:00 00:00:[address] 3.430.2.7 Hospit a .3.850144 l .8 2022-02-13 2022-02-13 Telephone Jaye, 1.2.840.1 [id number] 21 [id number] Methodi 00:00:00 00:00:[address] 3.430.2.7 Hospit a .3.734098 l .8 2022-02-10 2022-02-10 Telephone Makenna, 1.2.840.1 [id number] 2099 043734 Methodi 00:00:00 00:00:[address] 3.430.2.7 Hospit a .3.339149 l .8 2022-02-10 2022-02-10 Orders Vipin, 1.2.840.1 [id number] 2099 691971 Methodi 00:00:00 00:00:00 Only Josiah 78351.1.[address] 3.430.2.7 Hospit a .3.255349 l .8 2022-02-10 2022-02-10 Telephone Makenna, 1.2.840.1 [id number] 2099 445599 Methodi 00:00:00 00:00:[address] 3.430.2.7 Hospit a .3.727132 l .8 2022-02-10 2022-02-10 Orders Vipin, 1.2.840.1 [id number] 2099 157220 Methodi 00:00:00 00:00:00 Only Josiah 76481.1.[address] 3.430.2.7 Hospit a .3.952665 l .8 2022-02-03 2022-02-03 Orders Doctor GOMEZ 1.2.840.114 [id number] 578 Univers 00:00:00 00:00:00 Only Unassigned, TAYLOR 350.1.13.10 ity of [place] [facility] 4.2.7.2.686 Lj as [phone] [place] [address] Branch 2022-01-24 2022-01-24 Orders Vipin 1.2.840.1 [id number] 2099 144731 Methodi 00:00:00 00:00:00 Only Jennana 22919.1.[address] 3.430.2.7 Hospit a .3.708372 l .8 2022-01-24 2022-01-24 Documentat Riv, 1.2.840.1 108232238 721 8007026 Methodi 00:00:00 00:00:[address]35.1.[address] 3.430.2.7 Hospit a .3.920998 l .8 2022-01-24 2022-01-24 Orders Vipin, 1.2.840.1 [id number] 2099 843298 Methodi 00:00:00 00:00:00 Only Brehuna 98040.1.[address] 3.430.2.7 Hospit a .3.472404 l .8 2022-01-24 2022-01-24 Documentat Rivella, 1.2.840.1 [id number] 623 7926343 Methodi 00:00:00 00:00:[address]85.1.[address] 3.430.2.7 Hospit a .3.914884 l .8 2022-01-23 2022-01-23 [facility], 1.2.840.1 [id number] 88809 Methodi 09:00:00 23:59:00 Encounter Nawaf Blair 07312.1.[address] 3.430.2.7 Hospit a .3.076885 l .8 2022-01-23 2022-01-23 [facility], 1.2.840.1 [id number] 19027 Methodi 09:00:00 23:59:00 Encounter Nawaf Blair 83706.1.[address] 3.430.2.7 Hospit a .3.303518 l .8 2022-01-23 2022-01-23 Nutrition Asael, 1.2.840.1 419903817 2099 735882 Methodi 14:30:00 15:00:00 Riojas Avtar 11613.1.1 647 s t 3.430.2.7 Hospit a .3.850782 l .8 2022-01-23 2022-01-23 Nutrition Asael, 1.2.840.1 [id number] 2099 898949 Methodi 14:30:00 15:00:00 Riojas Avtar 85204.1.1 647 s t 3.430.2.7 Hospit a .3.586251 l .8 2022-01-23 2022-01-23 Office Alpesh Granados 1.2.840.1 [id number] 141 3968888 Methodi 13:45:00 14:00:00 Visit Beulah Vyas 56607.1.[address] 3.430.2.7 Hospit a .3.944802 l .8 2022-01-23 2022-01-23 Office Alpesh Granados 1.2.840.1 058118400 266 4782688 Methodi 13:45:00 14:00:00 Visit Beulah Vyas 93683.1.[address] 3.430.2.7 Hospit a .3.011268 l .8 2022-01-23 2022-01-23 [facility] Wynn 1.2.840.1 [id number] 63345 28136 Methodi 07:23:52 08:59:00 Encounter Nawaf Blair 19836.1.[address] 3.430.2.7 Hospit a .3.058585 l .8 2022-01-23 2022-01-23 [facility] 1.2.840.1 [id number] 41664 44949 Methodi 07:23:52 08:59:00 Encounter Nawaf Blair 90991.1.[address] 3.430.2.7 Hospit a .3.410581 l .8 2022-01-23 2022-01-23 Documentat Jeanne, 1.2.840.1 [id number] 048 4614042 Methodi 00:00:00 00:00:[address] ion [address] 27472.1.[address] 3.430.2.7 Hospit a .3.946303 l .8 2022-01-23 2022-01-23 Ozzie Lew 1.2.840.1 [id number] 21 [id number] Methodi 00:00:00 00:00:[address] 3.430.2.7 Hospit a .3.566410 l .8 2022-01-23 2022-01-23 Orders Gunnells, 1.2.840.1 [id number] 2099 064889 Methodi 00:00:00 00:00:00 Only Brehuna 56620.1.[address] 3.430.2.7 Hospit a .3.573245 l .8 2022-01-23 2022-01-23 Travel 1.2.840.1 1.2.006.823 8592 293776 Methodi 00:00:00 00:00:[address] 3.430.2.7 0.2.7.3.698 Ho spita .3.226475 084.8 l .8 2022-01-23 2022-01-23 [facility] [id number] 181 [place] 00:00:00 00:00:00 NAWAF Gwen Method i st 2022-01-23 2022-01-23 Documentat Jeanne, 1.2.840.1 [id number] 927 4101372 Methodi 00:00:00 00:00:00 ion [address] 70978.1.[address] 3.430.2.7 Hospit a .3.831439 l .8 2022-01-23 2022-01-23 Telephone Vipin, 1.2.840.1 267215009 71028611 Methodi 00:00:00 00:00:[address] 3.430.2.7 Hospit a .3.955787 l .8 2022-01-23 2022-01-23 Orders Diazs, 1.2.840.1 [id number] 2099 745963 Methodi 00:00:00 00:00:00 Only Brehuna 80302.1.[address] 3.430.2.7 Hospit a .3.015347 l .8 2022-01-23 2022-01-23 Travel 1.2.840.1 1.2.335.004 8090 889178 Methodi 00:00:00 00:00:[address] 3.430.2.7 0.2.7.3.698 Ho spita .3.953843 084.8 l .8 2022-01-20 2022-01-20 Telephone Moy, 1.2.840.1 [id number] 2099 377768 Methodi 00:00:00 00:00:[address] 3.430.2.7 Hospit a .3.695332 l .8 2022-01-20 2022-01-20 Telephone Moy, 1.2.840.1 729510061 2099 250862 Methodi 00:00:00 00:00:[address] 3.430.2.7 Hospit a .3.757169 l .8 2022-01-18 2022-01-18 Telephone Moy, 1.2.840.1 813159834 2099 230379 Methodi 00:00:00 00:00:[address] 3.430.2.7 Hospit a .3.525426 l .8 2022-01-18 2022-01-18 Telephone Moy, 1.2.840.1 440107543 2099 478094 Methodi 00:00:00 00:00:[address] 3.430.2.7 Hospit a .3.599788 l .8 2022-01-13 2022-01-13 Orders Blamo, 1.2.840.1 654423323 782130 9444 Methodi 00:00:00 00:00:00 Only Gina 41216.1.[address] 3.430.2.7 Hospit a .3.822807 l .8 2022-01-13 2022-01-13 Orders Blamo, 1.2.840.1 427790214 871322 7826 Methodi 00:00:00 00:00:00 Only Gina 56095.1.[address] 3.430.2.7 Hospit a .3.591816 l .8 2022-01-13 2022-01-13 Orders Blamo, 1.2.840.1 960477506 477952 5620 Methodi 00:00:00 00:00:00 Only Gina 42522.1.[address] 3.430.2.7 Hospit a .3.183781 l .8 2022-01-13 2022-01-13 Orders [facility], 1.2.840.1 [id number] 082628 5904 Methodi 00:00:00 00:00:00 Only Gina 02597.1.[address] 3.430.2.7 Hospit a .3.479849 l .8 2022-01-10 2022-01-10 Office [facility], 1.2.840.1 [id number] 03555 Methodi 09:40:00 10:18:37 Visit Rainer H. 52383.1.[address] 3.430.2.7 Hospit a .3.694800 l .8 2022-01-10 2022-01-10 Office [facility], 1.2.840.1 [id number] 22663 Methodi 09:40:00 10:18:37 Visit Rainer Malloy. 87534.1.[address] 3.430.2.7 Hospit a .3.875462 l .8 2022-01-10 2022-01-10 Travel 1.2.840.1 1.2.672.314 8707 913341 Methodi 00:00:00 00:00:[address] 3.430.2.7 0.2.7.3.698 Ho spita .3.901233 084.8 l .8 2022-01-10 2022-01-10 Travel 1.2.840.1 1.2.017.070 0322 561402 Methodi 00:00:00 00:00:[address] 3.430.2.7 0.2.7.3.698 Ho spita .3.759718 084.8 l .8 2022-01-04 2022-01-04 Documentat Breezy, 1.2.840.1 [id number] 21 [id number] Methodi 00:00:00 00:00:[address].1.[address] 3.430.2.7 Hospit a .3.568125 l .8 2022-01-04 2022-01-04 Documentat Breezy, 1.2.840.1 [id number] 21 80374876 Methodi 00:00:00 00:00:[address] 3.430.2.7 Hospit a .3.839078 l .8 2022-01-04 2022-01-04 Documentat Breezy, 1.2.840.1 [id number] 21 89599966 Methodi 00:00:00 00:00:[address].1.[address] 3.430.2.7 Hospit a .3.721929 l .8 2022-01-04 2022-01-04 Documentat Breezy, 1.2.840.1 706176412 45451077 Methodi 00:00:00 00:00:[address] 3.430.2.7 Hospit a .3.521346 l .8 2022-01-02 2022-01-02 Transition NANDA Yang 1.2.840.114 986 50305 Univers 00:00:00 00:00:00 of Care Carlos DESHPANDE 350.1.13.10 ity KEILA 4.2.7.2.[address] [facility] [phone] [facility] 403 Branch 2021-12-27 2021-12-30 Outpatient X NATHALY [facility] [id number] 991 Univers 11:22:00 11:45:00 PREETI itbrigitte of [facility] 2021-12-27 2021-12-30 [facility] Stuart Shaikh [facility] 1.2.840.1 14 [id number] Univers 11:22:00 11:45:00 Encounter Ritchie Garcia 350.1.13.10 ity of Preeti Andersen 4.2.7.2.686 [facility] [phone] [facility] 081 Branch 2021-12-20 2021-12-20 Documentat Breezy, 1.2.840.1 [id number] 21 [id number] Methodi 00:00:00 00:00:[address] 3.430.2.7 Hospit a .3.778901 l .8 2021-12-20 2021-12-20 Documentat Breezy, 1.2.840.1 [id number] 21 [id number] Methodi 00:00:00 00:00:[address] 3.430.2.7 Hospit a .3.007760 l .8 2021-12-16 2021-12-16 Orders Doctor LUIS 1.2.840.114 143902 96 Univers 00:00:00 00:00:00 Only Unassigned, TAYLOR 350.1.13.10 [place] of [place] [facility] 4.2.7.2.686 Lj as [phone] [facility] 009 Branch 2021-12-12 2021-12-12 Documentat Breezy, 1.2.840.1 [id number] 21 [id number] Methodi 00:00:00 00:00:[address] 3.430.2.7 Hospit a .3.219511 l .8 2021-12-12 2021-12-12 Documentat Breezy, 1.2.840.1 [id number] 21 [id number] Methodi 00:00:00 00:00:[address] 3.430.2.7 Hospit a .3.994789 l .8 2021-12-09 2021-12-09 Telephone Loree, 1.2.840.1 569839666 2100 430487 Methodi 00:00:00 00:00:[address] 3.430.2.7 Hospit a .3.825687 l .8 2021-12-06 2021-12-06 Transition NANDA Yang 1.2.840.114 979 52620 Univers 00:00:00 00:00:00 of Care Carlos DESHPANDE 350.1.13.10 ity [place] [phone] [facility] 403 Branch 2021-12-05 2021-12-05 [facility], 1.2.840.1 [id number] 714 6918686 Methodi 10:21:56 23:59:00 Encounter Zuleikapatricia 16746.1.[address] 3.430.2.7 Hospit a .3.471195 l .8 2021-12-05 2021-12-05 Travel 1.2.840.1 1.2.252.678 7799 766286 Methodi 00:00:00 00:00:[address] 3.430.2.7 0.2.7.3.698 Ho spita .3.502236 084.8 l .8 2021-12-05 2021-12-05 Outpatient PERRY [facility] 75833 9[address]20 [place] 00:00:00 00:00:00 AHMAD [address] 2021-12-05 2021-12-05 [facility] [id number] 683 [place] 00:00:00 00:00:00 NAWAF [address] 2021-12-03 2021-12-04 Outpatient X ISABELL [facility] [id number] 751 Univers 17:03:00 18:10:00 RITCHIE quintero of [facility] 2021-12-03 2021-12-04 Emergency Carol Patiño [facility] 1.2.840 .114 [id number] Univers 17:03:00 18:10:00 Ritchie Garcia 350.1.13.10 ity of [place] 4.2.7.2.686 [facility] [phone] [facility] 080 Branch 2021-12-03 2021-12-03 Orders Doctor LUIS 1.2.840.114 [id number] 11 Univers 00:00:00 00:00:00 Only Unassigned, TAYLOR 350.1.13.10 [place] of [place] [facility] 4.2.7.2.686 [facility] [phone] [facility] 009 Branch 2021-12-02 2021-12-02 Telephone Loree, 1.2.840.1 [id number] 2100 886359 Methodi 00:00:00 00:00:[address] 3.430.2.7 Hospit a .3.992395 l .8 2021-12-01 2021-12-01 Telephone Hany 1.2.840.1 [id number] 142 [id number] Methodi 00:00:00 00:00:[address] 3.430.2.7 Hospit a .3.487675 l .8 2021-12-01 2021-12-01 Orders Doctor LUIS 1.2.840.114 [id number] 83 Univers 00:00:00 00:00:00 Only Unassigned, TAYLOR 350.1.13.10 [place] of [place] [facility] 4.2.7.2.686 Lj as [id number] [facility] 009 Branch 2021-11-28 2021-11-28 Transition Celia VITALYKaren 1.2.840.114 977 00509 Univers 00:00:00 00:00:00 of Care Carlos DESHPANDE 350.1.13.10 it[place] [phone] [facility] 403 Branch 2021-11-24 2021-11-26 Outpatient U [facility] AJ [id number] 6496 Univers 02:59:00 16:39:00 JOSE CRUZ ity [facility] 2021-11-24 2021-11-26 [facility] 1.2.682.407 5705 1703 Univers 02:59:00 16:39:00 Encounter Jose Cruz MENCHACA 350.1.13.10 ity [facility] [place]7.2.[place] [facility] [id number] [facility] 081 Branch 2021-11-12 2021-11-12 Emergency X [facility] ERT [id number] 98 Univers 12:18:00 15:26:00 SEAN quintero [facility] 2021-11-12 2021-11-12 Emergency [facility] 1.2.860.577 8845 7189 Univers 12:18:00 15:26:00 Sean MENCHACA 350.1.13.10 i ty of [place] 4.2.7.2.686 [facility] [phone] [place] [address] Branch 2021-11-01 2021-11-01 Telephone [place]amo, 1.2.840.1 [id number] 2100 692434 Methodi 00:00:00 00:00:[address] 3.430.2.7 Hospit a .3.612616 l .8 2021-10-31 2021-10-31 Telephone Famanias, 1.2.840.1 [id number] 49689996 Methodi 00:00:00 00:00:[address] 3.430.2.7 Hospit a .3.787222 l .8 2021-10-14 2021-10-14 Telephone Picquet, 1.2.840.1 [id number] 126 0464743 Methodi 00:00:00 00:00:[address] 3.430.2.7 Hospit a .3.299985 l .8 2021-09-14 2021-09-14 Emergency X [facility] [id number] 50 Univers 12:28:00 15:47:00 SEAN quintero [facility] 2021-09-14 2021-09-14 Emergency [facility] 1.2.588.850 8581 5866 Univers 12:28:00 15:47:00 Sean MENCHACA 350.1.13.10 i ty of [place] 4.2.7.2.686 [facility] [phone] [address] 2021-09-13 2021-09-13 Telephone Loree, 1.2.840.1 [id number] 2099 412260 Methodi 00:00:00 00:00:[address] 3.430.2.7 Hospit a .3.903012 l .8 2021-09-13 2021-09-13 Telephone Rivera, 1.2.840.1 [id number] 2099 702727 Methodi 00:00:00 00:00:[address] 3.430.2.7 Hospit a .3.847766 l .8 2021-09-12 2021-09-12 Telephone Blasavanah, 1.2.840.1 [id number] 2099 005350 Methodi 00:00:00 00:00:[address] 3.430.2.7 Hospit a .3.129685 l .8 2021-09-12 2021-09-12 Telephone Jones, 1.2.840.1 [id number] 2099814 Methodi 00:00:00 00:00:[address] 3.430.2.7 Hospit a .3.137063 l .8 2021-09-08 2021-09-08 Telephone Moe, 1.2.840.1 [id number] 798 7465398 Methodi 00:00:00 00:00:[address] 3.430.2.7 Hospit a .3.450245 l .8 2021-09-07 2021-09-07 Telephone Rivera, 1.2.840.1 [id number] 2099552 Methodi 00:00:00 00:00:[address] 3.430.2.7 Hospit a .3.105103 l .8 2021-09-07 2021-09-07 Transition NANDA Avila 1.2.840.114 95 185051 Univers 00:00:00 00:00:00 of Care Irasema DESHPANDE 350.1.13.[address] [facility] 4.2.7.2.686 [facility] [phone] [place] [address] Branch 2021-09-01 2021-09-06 Inpatient X IRENE [facility] [id number] 575 Univers 18:13:00 17:25:00 JOSE CRUZ quintero [facility] 2021-09-01 2021-09-06 Hospital Corby Leggett [facility] 1.2.8 40.114 [id number] Univers 18:13:00 17:25:00 Encounter Jose [facility]13.10 [facility] 4.2.7.[facility] [phone] [facility] 080 Branch 2021-09-02 2021-09-02 Telephone Loree, 1.2.840.1 [id number] 2099 739390 Methodi 00:00:00 00:00:[address] 3.430.2.7 Hospit a .3.111091 l .8 2021-09-01 2021-09-01 Telephone Loree, 1.2.840.1 [id number] 2099 741706 Methodi 00:00:00 00:00:[address] 3.430.2.7 Hospit a .3.010586 l .8 2021-08-18 2021-08-18 Telephone Famanias, 1.2.840.1 [id number] 06402801 Methodi 00:00:00 00:00:[address] 3.430.2.7 Hospit a .3.139429 l .8 2021-08-17 2021-08-17 Telephone Loree, 1.2.840.1 [id number] 2100 079933 Methodi 00:00:00 00:00:[address] 3.430.2.7 Hospit a .3.720200 l .8 2021-08-17 2021-08-17 Orders Loree, 1.2.840.1 [id number] 419698 2895 Methodi 00:00:00 00:00:00 Only Angelica 61126.1.[address] 3.430.2.7 Hospit a .3.008153 l .8 2021-07-28 2021-07-28 Orders Loree, 1.2.840.1 [id number] 994759 1364 Methodi 00:00:00 00:00:00 Only Angelica 37837.1.[address] 3.430.2.7 Hospit a .3.706181 l .8 2021-07-24 2021-07-24 Orders Loree, 1.2.840.1 [id number] [id number] 0580 Methodi 00:00:00 00:00:00 Only Angelica 02431.1.[address] 3.430.2.7 Hospit a .3.939847 l .8 2021-07-06 2021-07-06 Telephone ELENI Lopez 1.2.446.716 8150 8963 [facility] 00:00:00 00:00:00 Sabino MENCHACA 350.1.13.10 i ty [phone] [place] 739[place] [facility] 2021-07-05 2021-07-05 Documentat Jerry 1.2.840.1 [id number] Methodi 00:00:00 00:00:[address]ame [address].1.[address] 3.430.2.7 Hospit a .3.270133 l .8 2021-06-30 2021-06-30 Telephone Makenna 1.2.840.1 [id number] 2099 [id number] Methodi 00:00:00 00:00:[address] 3.430.2.7 Hospit a .3.109343 l .8 2021-06-30 2021-06-30 Orders Doctor LUIS 1.2.840.114 [id number] Univers 00:00:00 00:00:00 Only Unassigned, TAYLOR 350.1.13.10 [place]y of [place] [facility] 4.2.7.2.686 Lj as [id number] [address] 2021-06-29 2021-06-29 Telephone Loree 1.2.840.1 [id number] 2099 [id number] Methodi 00:00:00 00:00:[address] 3.430.2.7 Hospit a .3.713717 l .8 2021-06-28 2021-06-28 Outpatient ALPESH GRANADOS [facility] 2099 [id number] [place] 00:00:00 00:00:[address] 2021-06-28 2021-06-28 Travel 1.2.840.1 1.2.495.044 9585 232415 Methodi 00:00:00 00:00:[address] 3.430.2.7 0.2.7.3.698 Ho spita .3.767266 084.8 l .8 2021-06-24 2021-06-24 Telephone Loree, 1.2.840.1 [id number] 2100 469581 Methodi 00:00:00 00:00:[address] 3.430.2.7 Hospit a .3.171651 l .8 2021-06-23 2021-06-23 [facility].840.1 [id number] 21 [id number] Methodi 09:37:15 23:59:[address] 3.430.2.7 Hospit a .3.857840 l .8 2021-06-23 2021-06-23 Office Simran Carr 1.2.840.1 [id number] 4 [id number] Methodi 13:15:00 13:30:00 Visit Nawaf Wynn 33904.1.[address] 3.430.2.7 Hospit a .3.361235 l .8 2021-06-23 2021-06-23 [facility] 1.2.840.1 [id number] 21 [id number] Methodi 07:46:16 09:36:[address] 3.430.2.7 Hospit a .3.266579 l .8 2021-06-23 2021-06-23 Outpatient ALPESH GRANADOS [facility] 2099 [id number] [place] 00:00:00 00:00:[address] 2021-06-23 2021-06-23 Outpatient EDITH [facility] [id number] [place] 00:00:00 00:00:00 SUKI [address] 2021-06-23 2021-06-23 Travel 1.2.840.1 1.2.193.560 8627 039768 [facility] 00:00:00 00:00:[address] 3.430.2.7 0.2.7.3.698 Ho spita .3.817069 084.8 l .8 2021-06-17 2021-06-17 Telemedici Champ, 1.2.840.1 [id number] Methodi 13:00:00 13:55:08 ne Heron 94122.1.1 364 s t Watson 3.430.2.7 Hospit a .3.809416 l .8 2021-06-17 2021-06-17 Telephone Dimitrios, 1.2.840.1 [id number] [id number] [facility] 00:00:00 00:00:00 Fidelina Shaw 08521.1.[address] 3.430.2.7 Hospit a .3.852182 l .8 2021-06-17 2021-06-17 Telephone Wing, 1.2.840.1 [id number] 2099101 [facility] 00:00:00 00:00:[address] 3.430.2.7 Hospit a .3.678759 l .8 2021-06-17 2021-06-17 Telephone Wing, 1.2.840.1 [id number] 2099 [id number] [facility] 00:00:00 00:00:[address] 3.430.2.7 Hospit a .3.323195 l .8 2021-06-16 2021-06-16 Orders Concetta, 1.2.840.1 [id number] 1797 [facility]i 00:00:00 00:00:00 Only Ashrith 91504.1.[address] 3.430.2.7 Hospit a .3.392296 l .8 2021-06-16 2021-06-16 Orders Concetta, 1.2.840.1 [id number] 017378 7923 [facility]i 00:00:00 00:00:00 Only Ashrith 76470.1.[address] 3.430.2.7 Hospit a .3.765775 l .8 2021-06-15 2021-06-15 Telephone Makenna, 1.2.840.1 [id number] 2099 [id number] [facility] 00:00:00 00:00:[address] 3.430.2.7 Hospit a .3.753302 l .8 2021-06-13 2021-06-13 Telemedici Nick, 1.2.840.1 [id number] [facility] 08:00:00 08:08:51 ne Ray 65546.1.[address] 3.430.2.7 Hospit a .3.094023 l .8 2021-06-13 2021-06-13 Telephone Jones, 1.2.840.1 [id number] 2099 [id number] [facility] 00:00:00 00:00:[address] 3.430.2.7 Hospit a .3.012206 l .8 2021-06-13 2021-06-13 Travel 1.2.840.1 1.2.212.566 7116 581863 [facility] 00:00:00 00:00:[address] 3.430.2.7 0.2.7.3.698 Ho spita .3.392149 084.8 l .8 2021-06-08 2021-06-08 Abstract Peter, 1.2.840.1 [id number] [facility] 00:00:00 00:00:[address] 3.430.2.7 Hospit a .3.039398 l .8 2021-05-31 2021-05-31 Telephone Brentonalyshajewels, 1.2.840.1 [id number] [facility] 00:00:00 00:00:[address] 3.430.2.7 Hospit a .3.858890 l .8 2021-05-24 2021-05-28 [facility] Aftab Murphy 1.2.840.1 [id number] Methodi 11:18:00 18:17:00 Angeline Sheikh 25820.1.[address] 3.430.2.7 Hospit a .3.488951 l .8 2021-05-27 2021-05-27 Telephone Jose Eduardo 1.2.840.1 [id number] Methodi 00:00:00 00:00:00 Tanja aguilera 69566.1.1 384 s t 3.430.2.7 Hospit a .3.717469 l .8 2021-05-25 2021-05-25 Telephone Ceferino, 1.2.840.1 [id number] 2099 [id number] [facility] 00:00:00 00:00:[address] 3.430.2.7 Hospit a .3.101157 l .8 2021-05-24 2021-05-24 Documentat Loree, 1.2.840.1 [id number] 750 [id number] [facility] 00:00:00 00:00:00 ion Angelica 76613.1.[address] 3.430.2.7 Hospit a .3.972104 l .8 2021-05-23 2021-05-23 Outpatient [facility] [id number] [place] 00:00:00 00:00:00 SIMRAN [address] 2021-05-23 2021-05-23 Outpatient [facility] [id number] [place] [address] 00:00:00 00:00:00 SIMRAN [address] 2021-05-23 2021-05-23 Travel 1.2.840.1 1.2.361.701 0681 051987 [facility] 00:00:00 00:00:[address] 3.430.2.7 0.2.7.3.698 Ho spita .3.606447 084.8 l .8 2021-05-23 2021-05-23 Telephone Loree, 1.2.840.1 [id number] 2099 [id number] [facility] 00:00:00 00:00:[address] 3.430.2.7 Hospit a .3.950032 l .8 2021-05-23 2021-05-23 Orders Loree, 1.2.840.1 [id number] 254583 6351 [facility] 00:00:00 00:00:00 Only Angelica 90086.1.[address] 3.430.2.7 Hospit a .3.819448 l .8 2021-05-23 2021-05-23 Orders Loree, 1.2.840.1 [id number] 807391 8435 [facility] 00:00:00 00:00:00 Only Angelica 76545.1.[address] 3.430.2.7 Hospit a .3.760013 l .8 2021-05-18 2021-05-18 Lab Kingsley, 1.2.840.1 [id number] 071823 1669 Methodi 13:45:00 13:50:00 Nawaf Blair 00200.1.[address] 3.430.2.7 Hospit a .3.871075 l .8 2021-05-18 2021-05-18 Orders Peter, 1.2.840.1 [id number] 982 [id number] [facility] 00:00:00 00:00:00 Only Ruthann 46252.1.[address] 3.430.2.7 Hospit a .3.039085 l .8 2021-05-17 2021-05-17 Telephone Alpesh Granados 1.2.840.1 [id number] 2 [id number] [facility] 00:00:00 00:00:[address] 3.430.2.7 Hospit a .3.705955 l .8 2021-05-13 2021-05-13 Infusion Alpesh Granados 1.2.840.1 [id number] 21 [id number] [facility] 11:00:00 12:00:[address] 3.430.2.7 Hospit a .3.158937 l .8 2021-05-13 2021-05-13 Travel 1.2.840.1 1.2.861.714 7639 293533 [facility] 00:00:00 00:00:[address] 3.430.2.7 0.2.7.3.698 Ho spita .3.323322 084.8 l .8 2021-05-12 2021-05-12 Telephone Carty, 1.2.840.1 [id number] 2099 [id number] [facility] 00:00:00 00:00:[address] 3.430.2.7 Hospit a .3.721864 l .8 2021-05-09 2021-05-09 Office Alpesh Granados 1.2.840.1 [id number] 826 [id number] [facility]i 10:45:00 15:52:27 Visit Benjy Hernandez 96280.1.[address] 3.430.2.7 Hospit a .3.276297 l .8 2021-05-09 2021-05-09 Infusion Alpesh Granados 1.2.840.1 [id number] Methodi 11:30:00 13:00:[address] 3.430.2.7 Hospit a .3.037436 l .8 2021-05-09 2021-05-09 Travel 1.2.840.1 1.2.990.320 3239 996711 [facility] 00:00:00 00:00:[address] 3.430.2.7 0.2.7.3.698 Ho spita .3.813787 084.8 l .8 2021-05-06 2021-05-06 Telephone Carty, 1.2.840.1 [id number] 2099 [id number] [facility] 00:00:00 00:00:00 Sally 72188.1.[address] 3.430.2.7 Hospit a .3.087444 l .8 2021-05-06 2021-05-06 Documentat Renteria, 1.2.840.1 [id number] Methodi 00:00:00 00:00:00 ion Elba 44904.1.[address] 3.430.2.7 Hospit a .3.610570 l .8 2021-05-06 2021-05-06 Documentat Renteria, 1.2.840.1 [id number] 21 [id number] Methodi 00:00:00 00:00:00 ion Elba 82616.1.[address] 3.430.2.7 Hospit a .3.428981 l .8 2021-05-04 2021-05-04 Documentat Renteria, 1.2.840.1 334533312 21 [id number] Methodi 00:00:00 00:00:00 ion Elba 68760.1.[address] 3.430.2.7 Hospit a .3.168119 l .8 2021-05-02 2021-05-02 Telemedici Nick, 1.2.840.1 [id number] 21 [id number] Methodi 08:30:00 08:37:59 [address]45.1.[address] 3.430.2.7 Hospit a .3.090537 l .8 2021-04-29 2021-04-29 Documentat Jerry 1.2.840.1 [id number] Methodi 00:00:00 00:00:[address] 3.430.2.7 Hospit a .3.323355 l .8 2021-04-29 2021-04-29 Abstract Franky 1.2.840.1 [id number] 2100 392351 Methodi 00:00:00 00:00:[address] 3.430.2.7 Hospit a .3.426714 l .8 2021-04-29 2021-04-29 Telephone Franky 1.2.840.1 [id number] 357 0909926 Methodi 00:00:00 00:00:[address] 3.430.2.7 Hospit a .3.479046 l .8 2021-04-29 2021-04-29 Orders Doctor LUIS 1.2.840.114 821684 97 Univers 00:00:00 00:00:00 Only Unassigned, TAYLOR 350.1.13.10 [place] of [place] [facility] 4.2.7.2.686 Lj as [phone] [place] [address] Branch 2021-04-14 2021-04-28 Office Nawaf Wynn 1.2.840.1 1353952 34 [id number] Methodi 14:15:00 16:12:07 Visit Joi Santiago 50119.1.1 651 s t 3.430.2.7 Hospit a .3.758911 l .8 2021-04-26 2021-04-26 Documentat Jeanne, 1.2.840.1 073870922 296 [id number] Methodi 00:00:00 00:00:00 ion Mariola 79237.1.[address] 3.430.2.7 Hospit a .3.486007 l .8 2021-04-22 2021-04-22 Travel 1.2.840.1 1.2.308.359 5060 731194 Methodi 00:00:00 00:00:[address] 3.430.2.7 0.2.7.3.698 Ho spita .3.344453 084.8 l .8 2021-04-22 2021-04-22 Telephone Av, 1.2.840.1 [id number] 009 7975410 Methodi 00:00:00 00:00:[address] 3.430.2.7 Hospit a .3.749397 l .8 2021-04-14 2021-04-21 Office Nawaf Wynn 1.2.840.1 4643516 34 [id number] Methodi 14:45:00 12:56:39 Visit Lottie Kraft 53781.1.[address] 3.430.2.7 Hospit a .3.522525 l .8 2021-04-18 2021-04-18 Hospital Alpesh Granados 1.2.840.1 [id number] 21 [id number] Methodi 08:00:00 23:59:[address] 3.430.2.7 Hospit a .3.071124 l .8 2021-04-18 2021-04-18 Travel 1.2.840.1 1.2.161.238 3808 078028 Methodi 00:00:00 00:00:[address] 3.430.2.7 0.2.7.3.698 Ho spita .3.870133 084.8 l .8 2021-04-16 2021-04-16 [facility] 523005 4125 Univers 15:34:00 16:27:00 PORSCHE quintero [facility] 2021-04-16 2021-04-16 Emergency [facility] 1.2.840.114 91 [id number] Univers 15:34:00 16:27:00 Porsche MENCHACA 350.1.13.10 ity [facility] 4.2.7.2.686 [place] [facility] [phone] [address] 2021-04-16 2021-04-16 Virtual Abdelrahman, 1.2.840.1 [id number] Methodi 13:30:00 13:45:00 Urgent Crystal 24775.1.[address] Care 3.430.2.7 Hospit a .3.147330 l .8 2021-04-15 2021-04-15 Hospital Shayy Mclaughlin 1.2.840.1 [id number] Methodi 13:13:00 20:46:00 Encounter Dayna 24830.1.[address] 3.430.2.7 Hospit a .3.504532 l .8 2021-04-15 2021-04-15 Surgery Lissette, 1.2.840.1 260930171 050551 8496 Methodi 17:16:00 18:36:[address] Vaughn 3.430.2.7 Hospit a Tellez .3.617937 l .8 2021-04-15 2021-04-15 Travel 1.2.840.1 1.2.156.283 0519 443206 Methodi 00:00:00 00:00:[address] 3.430.2.7 0.2.7.3.698 Ho spita .3.078428 084.8 l .8 2021-04-14 2021-04-14 [facility] Alpesh Granados 1.2.840.1 [id number] [id number] Methodi 10:00:00 23:59:[address] 3.430.2.7 Hospit a .3.207857 l .8 2021-04-14 2021-04-14 Office Nawaf Wynn 1.2.840.1 4775307 34 [id number] Methodi 14:00:00 14:15:00 Visit Perry Simran 05456.1.[address] 3.430.2.7 Hospit a .3.554274 l .8 2021-04-14 2021-04-14 [facility] Alpesh Granados 1.2.840.1 [id number] 39008263 Methodi 06:41:00 09:59:[address] 3.430.2.7 Hospit a .3.140461 l .8 2021-04-14 2021-04-14 Outpatient ALPESH GRANADOS [facility] 2100 169094 [place] 00:00:00 00:00:[address] 2021-04-14 2021-04-14 Outpatient WYNN [facility] [id number] 572 [place] 00:00:00 00:00:[address] NAWAF [address] 2021-04-14 2021-04-14 Travel 1.2.840.1 1.2.951.913 6449 420287 Methodi 00:00:00 00:00:[address] 3.430.2.7 0.2.7.3.698 Ho spita .3.738754 084.8 l .8 2021-04-14 2021-04-14 Katherine Ley 1.2.840.1 473026584 Methodi 00:00:00 00:00:00 Only Krissy 65758.1.[address] 3.430.2.7 Hospit a .3.984650 l .8 2021-04-14 2021-04-14 Orders Av 1.2.840.1 [id number] 83807 Methodi 00:00:00 00:00:00 Only Krissy 82878.1.[address] 3.430.2.7 Hospit a .3.390942 l .8 2021-04-13 2021-04-13 Social Wynn 1.2.840.1 776175236 991892 0829 Methodi 14:00:00 15:30:00 Work Nawaf Blair 79691.1.[address] 3.430.2.7 Hospit a .3.637809 l .8 2021-04-13 2021-04-13 Clinical Nawaf Wynn 1.2.840.1 249251 231 [id number] Methodi 11:00:00 12:00:00 Support Consuelo Brand 23515.1.[address] 3.430.2.7 Hospit a .3.655564 l .8 2021-04-13 2021-04-13 Yuly Wynn 1.2.840.1 397733250 2099 845768 Methodi 09:00:00 10:00:00 Naw[address] Blair 22096.1.[address] 3.430.2.7 Hospit a .3.946450 l .8 2021-04-13 2021-04-13 Outpatient ALPESH GRANADOS [facility] 2100 339390 [place] 00:00:00 00:00:[address] 2021-04-13 2021-04-13 Documentat Cory, 1.2.840.1 [id number] 2 [id number] Methodi 00:00:00 00:00:00 ion Callum 70108.1.[address] 3.430.2.7 Hospit a .3.652296 l .8 2021-04-13 2021-04-13 Documentat Breezy, 1.2.840.1 682927541 21 [id number] Methodi 00:00:00 00:00:00 ion Fanta 17690.1.[address] 3.430.2.7 Hospit a .3.188474 l .8 2021-04-13 2021-04-13 Orders Loree, 1.2.840.1 890032614 882106 1426 Methodi 00:00:00 00:00:00 Only Angelica 61247.1.[address] 3.430.2.7 Hospit a .3.322598 l .8 2021-04-13 2021-04-13 Travel 1.2.840.1 1.2.119.274 8472 502617 Methodi 00:00:00 00:00:[address] 3.430.2.7 0.2.7.3.698 Ho spita .3.674535 084.8 l .8 2021-04-13 2021-04-13 Documentat Av, 1.2.840.1 [id number] 21 [id number] Methodi 00:00:00 00:00:00 ion Krissy 66929.1.[address] 3.430.2.7 Hospit a .3.474501 l .8 2021-04-12 2021-04-12 Lab Alpesh Granados 1.2.840.1 727041156 940 2993578 Methodi 07:55:00 08:00:[address] 3.430.2.7 Hospit a .3.204868 l .8 2021-04-12 2021-04-12 Outpatient [facility] [id number] 943 [place] 00:00:00 00:00:00 NAWAF [address] 2021-04-11 2021-04-11 [facility] Jordy 1.2.840.1 14502869 3 [id number] Methodi 14:03:46 23:59:00 Encounter Alpesh Granados 87175.1.[address] 3.430.2.7 Hospit a .3.955684 l .8 2021-04-11 2021-04-11 [facility] Jordy 1.2.840.1 14678783 3 [id number] Methodi 14:03:13 23:59:00 Encounter Alpesh Granados 16302.1.[address] 3.430.2.7 Hospit a .3.408757 l .8 2021-04-11 2021-04-11 [facility] Zarco, Jordy 1.2.840.1 37728413 6 [id number] Methodi 13:16:36 14:02:00 Encounter Alpesh Granados 55532.1.[address] 3.430.2.7 Hospit a .3.906574 l .8 2021-04-11 2021-04-11 [facility], Jordy 1.2.840.1 67988260 6 [id number] Methodi 13:16:20 14:02:00 Encounter Alpesh Granados 11150.1.[address] 3.430.2.7 Hospit a .3.606701 l .8 2021-04-11 2021-04-11 [facility], Jordy 1.2.840.1 [id number] 7 [id number] Methodi 11:25:13 13:15:00 Encounter Alpesh Granaods 12402.1.[address] 3.430.2.7 Hospit a .3.193736 l .8 2021-04-11 2021-04-11 [facility], Jordy 1.2.840.1 04751257 3 [id number] Methodi 09:14:01 11:24:00 Encounter Alpesh Granados 73512.1.[address] 3.430.2.7 Hospit a .3.075718 l .8 2021-04-11 2021-04-11 [facility], Jordy 1.2.840.1 27902231 3 [id number] Methodi 09:13:40 09:13:40 Encounter Alpesh Granados 62040.1.[address] 3.430.2.7 Hospit a .3.372620 l .8 2021-04-11 2021-04-11 [facility] Provider, 1.2.840.1 [id number] 840 6698942 Methodi 09:13:02 09:13:02 Encounter Not In 67467.1.[address] System 3.430.2.7 Hospit a .3.431639 l .8 2021-04-11 2021-04-11 [facility], Jordy 1.2.840.1 [id number] 3 [id number] Methodi 09:12:39 09:12:39 Encounter Alpesh Granados 51010.1.[address] 3.430.2.7 Hospit a .3.080153 l .8 2021-04-11 2021-04-11 [facility] Jordy Zarco 1.2.840.1 [id number] 4 [id number] Methodi 08:32:00 09:11:00 Encounter Alpesh Granados 80484.1.[address] 3.430.2.7 Hospit a .3.893640 l .8 2021-04-11 2021-04-11 [facility] Alpesh Granados 1.2.840.1 [id number] 21 [id number] Methodi 06:56:38 08:31:[address] 3.430.2.7 Hospit a .3.543267 l .8 2021-04-11 2021-04-11 Travel 1.2.840.1 1.2.743.283 0797 499674 Methodi 00:00:00 00:00:[address] 3.430.2.7 0.2.7.3.698 spita .3.358564 084.8 l .8 2021-04-08 2021-04-08 Telephone Av 1.2.840.1 [id number] 345 1487983 Methodi 00:00:00 00:00:[address] 3.430.2.7 Hospit a .3.434520 l .8 2021-04-07 2021-04-07 Outpatient R RADIOLOGY [facility] 63799 47271 Univers 10:54:54 23:59:00 ity of [facility] 2021-04-07 2021-04-07 Hospital Radiology [facility] 1.2.840.114 915 87933 Univers 10:54:54 23:59:00 Encounter ANGLEARVIN 350.1.13.10 ity [facility] 4.2.7.2.686 [place] [facility] [phone] [place] [address] Branch 2021-04-07 2021-04-07 Orders Semones, 1.2.840.1 [id number] Methodi 00:00:00 00:00:00 Only Lottie 45570.1.[address] 3.430.2.7 Hospit a .3.917521 l .8 2021-04-01 2021-04-01 Travel 1.2.840.1 1.2.554.290 6974 518620 Methodi 00:00:00 00:00:[address] 3.430.2.7 0.2.7.3.698 Ho spita .3.908742 084.8 l .8 2021-04-01 2021-04-01 Orders Loree, 1.2.840.1 577210379 659152 4098 Methodi 00:00:00 00:00:00 Only Angelica 67568.1.[address] 3.430.2.7 Hospit a .3.657875 l .8 2021-04-01 2021-04-01 Telephone Brown, 1.2.840.1 [id number] 2099 907235 Methodi 00:00:00 00:00:00 Fidelina Shaw 49491.1.[address] 3.430.2.7 Hospit a .3.915451 l .8 2021-03-31 2021-03-31 Telephone Dexter, 1.2.840.1 947623861 283 5810192 Methodi 00:00:00 00:00:[address] 3.430.2.7 Hospit a .3.318571 l .8 2021-03-30 2021-03-30 Documentat Breezy, 1.2.840.1 276938531 21 [id number] Methodi 00:00:00 00:00:00 ion Fanta 33908.1.[address] 3.430.2.7 Hospit a .3.837551 l .8 2021-03-28 2021-03-28 Travel 1.2.840.1 1.2.456.201 4098 161610 Methodi 00:00:00 00:00:[address] 3.430.2.7 0.2.7.3.698 Ho spita .3.143517 084.8 l .8 2021-03-18 2021-03-18 Telephone Jessica [facility] 1.2.681.252 7182 0096 Univers 00:00:00 00:00:00 Sabino MENCHACA 350.1.13.10 i ty [facility] [place] [phone] Al dical NAL 085 [facility] 2021-03-18 2021-03-18 Orders Doctor LUIS 1.2.840.114 [id number] 77 Univers 00:00:00 00:00:00 Only Unassigned, TAYLOR 350.1.13.10 ity of [place] [facility] 4.2.7.2.686 Lj as [phone] [facility] 009 Branch 2021-03-10 2021-03-15 Inpatient X DONNELL [facility] [id number] 3908 Univers 09:07:00 15:15:00 HARESH itbrigitte of [facility] 2021-03-10 2021-03-15 [facility] Edward Reis [facility] 1.2.840.1 14 [id number] Univers 09:07:00 15:15:00 Encounter Haresh Casarez 350.1.13.10 [facility] [place] [phone] [facility] 081 [place] 2021-03-04 2021-03-04 Telephone Dimitrios 1.2.840.1 [id number] 2099 954533 Methodi 00:00:00 00:00:00 Fidel[address] Shaw 56819.1.[address] 3.430.2.7 Hospit a .3.481415 l .8 2021-03-04 2021-03-04 Telephone Yanci Escobar [facility] 1.2.840.114 [id number] Univers 00:00:00 00:00:00 Angel MENCHACA 350.1.13.10 i ty [place] [phone] Al dical NAL 296 [facility] 2021-03-02 2021-03-02 [facility], 1.2.840.1 [id number] Methodi 14:22:00 23:59:00 Encounter Nawaf Blair 59872.1.[address] 3.430.2.7 Hospit a .3.132207 l .8 2021-03-02 2021-03-02 [facility], 1.2.840.1 [id number] Methodi 14:19:20 14:21:00 Encounter Nawaf Blair 14553.1.[address] 3.430.2.7 Hospit a .3.241275 l .8 2021-02-22 2021-02-22 Telephone Loree, 1.2.840.1 [id number] 2100 610784 Methodi 00:00:00 00:00:[address] 3.430.2.7 Hospit a .3.558861 l .8 2021-02-21 2021-02-21 Transplant Jovani Boyle 1.2.840.1 10 4369186 [id number] Methodi 15:30:00 15:30:00 Telemedici Alpesh Granados 97688.1.[address] ne 3.430.2.7 Hospit a .3.300827 l .8 2021-02-21 2021-02-21 Orders Doctor LUIS 1.2.840.114 [id number] 52 Univers 00:00:00 00:00:00 Only Unassigned, TAYLOR 350.1.13.10 [place]y of [place] [facility] 4.2.7.2.686 Lj as [id number] [address] 2021-02-18 2021-02-18 Telephone Loree, 1.2.840.1 [id number] 2100 945700 Methodi 00:00:00 00:00:[address] 3.430.2.7 Hospit a .3.571980 l .8 2021-02-11 2021-02-11 Telephone Sunday, 1.2.840.1 [id number] 2100 147807 Methodi 00:00:00 00:00:00 Macheco 63842.1.1 975 3.430.2.7 Hospit a .3.565145 l .8 2021-01-20 2021-01-20 Orders Doctor LUIS 1.2.840.114 [id number] 60 Univers 00:00:00 00:00:00 Only Unassigned, TAYLOR 350.1.13.10 [place] [facility] 4.2.7.2.686 Lj as [phone] [facility] 009 Branch 2021-01-17 2021-01-17 Transition NANDA Yang 1.2.840.114 896 21561 Univers 00:00:00 00:00:00 of Care Carlos COPEY 350.1.13.10 ity [place] [id number] [facility] 403 Branch 2021-01-11 2021-01-14 Inpatient X NATHALY [facility] AJ [id number] 11 Univers 11:53:00 15:15:00 PREETI quintero [facility] 2021-01-11 2021-01-14 Hospital Idalia Bowman [facility] 1.2.840. 114 [id number] Univers 11:53:00 15:15:00 Encounter Preeti Andersen 350.1.13.10 ity [place] [id number] [facility] 081 Branch 2021-01-11 2021-01-14 Inpatient X NATHALY [facility] AJ [id number] 11 Univers 11:53:00 15:15:00 PREETI quintero [facility] 2021-01-14 2021-01-14 Patient Doctor LUIS 1.2.840.114 [id number] 10 Univers 00:00:00 00:00:00 Secure Msg Unassigned, TAYLOR 350.1.13.10 [place]y of [place] [facility] 4.2.7.2.686 Lj as [phone] [facility] 019 Branch 2021-01-10 2021-01-10 Telephone Jessica [facility] 1.2.839.145 4204 8871 Univers 00:00:00 00:00:00 Sabino MENCHACA 350.1.13.10 i ty of [place] [id number] Al dical NAL 5 [facility] 2021-01-06 2021-01-06 Outpatient R SABINO LOPEZ [facility] 10 [id number] Univers 12:00:00 12:00:00 SABINO LOPEZ i ty of [facility] 2020-12-27 2021-01-04 Inpatient 3 ZACK LindseyPL PUL 18447-28 21 [facility] 18:28:00 13:20:00 Ilir [facility] [place] 2020-12-28 2020-12-28 Transition NANDA Yang 1.2.840.114 891 73390 Univers 00:00:00 00:00:00 of Care Carlos DESHPANDE 350.1.13.10 ity of [place] [id number] [facility] 403 [address] 2020-12-17 2020-12-27 Inpatient X NATHALY [facility] AJ [id number] 27 Univers 08:38:00 17:06:00 PREETI quintero [facility] 2020-12-17 2020-12-27 [facility] ReisEdward [facility] 1.2.840.1 14 [id number] Univers 08:38:00 17:06:00 Encounter Preeti Andersen 350.1.13.10 ity [facility] [place] [id number] [place] [address]4761 [place] 2020-12-24 2020-12-24 [facility] 1.2.840.1 [id number] Methodi 00:00:00 00:00:00 jewels Renata 88542.1.[address] 3.430.2.7 Hospit a .3.099932 l .8 2020-12-23 2020-12-23 Telephone Jessica [facility] 1.2.557.043 2821 1149 Univers 00:00:00 00:00:00 Sabino MENCHACA 350.1.13.10 i ty [place] [phone] Al dical NAL [address] [place] [address] 2020-12-02 2020-12-02 Travel 1.2.840.1 1.2.887.765 8924 954336 Methodi 00:00:00 00:00:[address] 3.430.2.7 0.2.7.3.698 Ho spita .3.241180 084.8 l .8 2020-12-02 2020-12-02 [facility] 1.2.840.114 88 [id number] [facility] 00:00:00 00:00:00 [facility] 350.1.13.10 ity of [place] [id number] [address] 2020-11-29 2020-11-29 Office Guillermo, 1.2.840.1 [id number] 155826 4728 Methodi 11:50:00 12:46:42 Visit Apoor 37115.1.[address] 3.430.2.7 Hospit a .3.878681 l .8 2020-11-29 2020-11-29 Refill Sandhu, 1.2.840.1 [id number] 470673 5242 Methodi 00:00:00 00:00:[address] 3.430.2.7 Hospit a .3.824351 l .8 2020-11-29 2020-11-29 Orders Sandhu, 1.2.840.1 [id number] 202430 9817 Methodi 00:00:00 00:00:00 Only Caitlin 32397.1.[address] 3.430.2.7 Hospit a .3.142071 l .8 2020-11-29 2020-11-29 Travel 1.2.840.1 1.2.363.238 8628 535190 Methodi 00:00:00 00:00:[address] 3.430.2.7 0.2.7.3.698 Ho spita .3.603933 084.8 l .8 2020-11-29 2020-11-29 Transition Nanda Yang 1.2.840.114 884 50293 [facility] 00:00:00 00:00:00 of Care Carlos Garces Deshpande 350.1.13.10 ity of [place] [id number] [facility] 403 [address] 2020-11-23 2020-11-27 [facility] Edward Reis [facility] 1.2.840.1 14 [id number] [facility] 10:43:00 14:00:00 Preeti Romano 350.1.13.10 ity of [place] Hic[place] 4.2.7.2.686 [facility] [id number] [facility] 080 Branch 2020-10-08 2020-10-19 Inpatient SHENG [facility] 064 [id number] 42 [place] 00:00:00 00:00:00 LOREN 049 Metho di 2020-10-05 2020-10-05 [facility] [id number] 247 [place] 00:00:00 00:00:00 NAOMI [address] 2020-09-27 2020-09-27 Outpatient R RADIOLOGY [facility] 35770 86248 [facility] 00:00:00 00:00:00 ity of [facility] 2020-09-15 2020-09-15 [facility] [id number] 735 [place] 00:00:00 00:00:00 NAOMI [address] 2020-08-11 2020-08-11 Transition Nanda Yang 1.2.840.114 856 70162 [facility] 00:00:00 00:00:00 of Care Carlos Garces Deshpande 350.1.13.10 ity of [place] [id number] [facility] 403 [address] 2020-08-08 2020-08-10 Emergency Porsche Moore [facility] 1.2.8 40.114 [id number] [facility] 14:08:00 13:20:00 Haresh Casarez 350.1.13.10 ity of [place] [phone] [facility] 081 Branch 2020-07-22 2020-07-22 Transition Nanda Yang 1.2.840.114 851 [id number] 00:00:00 00:00:00 of Care Carlos Copey 350.1.13.10 [place] 4.2.7.2.686 [id number] 403 2020-07-22 2020-07-22 Transition Nanda Yang 1.2.840.114 851 85316 Univers 00:00:00 00:00:00 of Care Carlos Garces Deshpande 350.1.13.10 ity [place] [phone] [facility] 403 [address] 2020-07-15 2020-07-21 [facility] Sarah Garcia 1.2.840.1 14 [id number] 18:18:00 19:03:00 Encounter Ocampo, Yenni Taylor 350.1.13.10 [facility] 4.2.7.2. 686 Davon Pizarro [id number] 0 2020-07-15 2020-07-21 [facility] Mary Garcia 1.2.840.1 14 [id number] [facility] 18:18:00 19:03:00 Encounter Ocampo Yenni [place] 350.1.13.10 ity of [facility] 4.2.7.2. 686 Davon Antunez [phone] [place] [address] Branch 2020-07-20 2020-07-20 Outpatient Adelia HOOPER [facility] [id number] Univers 14:00:00 14:00:00 JOHN quintero o f [facility] 2020-07-13 2020-07-13 [facility] Radiology [facility] 1.2.840.114 [id number] 14:12:26 23:59:00 Encounter [place] 350.1.13.10 [place] 4.2.7.2.686 [place] [phone] [id number] 2020-07-13 2020-07-13 [facility] Radiology [facility] 1.2.840.114 [id number] Univers 14:12:26 23:59:00 Encounter [place] 350.1.13.10 ity of [place].2.[place] [phone] [facility] [address] 2020-07-13 2020-07-13 Outpatient R RADIOLOGY [facility] [id number] Univers 00:00:00 00:00:00 ity of [facility] 2020-06-22 2020-06-22 Orders Doctor LUIS 1.2.840.114 [id number] 00:00:00 00:00:00 Only Unassigned, TAYLOR 350.1.13.10 [facility] 4.2.7.2.686 [id number] [id number] 2020-06-22 2020-06-22 Orders Doctor LUIS 1.2.840.114 [id number] Univers 00:00:00 00:00:00 Only Unassigned, TAYLOR 350.1.13.10 [facility]y of [facility] 4.2.7.2.686 Lj as [phone] [facility] 009 Branch 2020-06-14 2020-06-14 Transition Nanda Yang 1.2.840.114 [id number] 00:00:00 00:00:00 of Care Carlos Copey 350.1.13.10 [place] 4.2.7.2.686 [id number] [id number] 2020-06-14 2020-06-14 Transition Nanda Yang 1.2.840.114 [id number] Univers 00:00:00 00:00:00 of Care Carlos Copey 350.1.13.10 ity of [place] [phone] [facility] [address] 2020-06-14 2020-06-14 Patient Doctor LUIS 1.2.840.114 [id number] Univers 00:00:00 00:00:00 Secure Msg Unassigned, TAYLOR 350.1.13.10 [facility]y of [facility] 4.2.7.2.686 Lj as [id number] [facility] 019 Branch 2020-06-10 2020-06-12 Hospital Edward Reis [facility] 1.2.840.1 14 [id number] [facility] 22:55:00 14:52:00 Encounter Preeti Andersen 350.1.13.10 [facility] Ritchie Garcia [place] 4.2.7.2.686 [facility] [id number] [place] [address] Branch 2020-06-10 2020-06-12 Inpatient X ISABELL [facility] [id number] Univers 22:55:00 14:52:00 [facility] 2020-06-07 Outpatient GC_WPSA_Awa PRIV PRIV [id number] [facility] 11:41:00 11:41:00 n_R [id number] Medica l 2020-06-03 2020-06-03 Outpatient GC_WPSA_Awa PRIV PRIV 206 [id number] [facility] 03:16:00 03:16:00 n_R [id number] Medica l 2020-06-03 2020-06-03 Shayla Ganesh PRIV IN - [facility] [id number] [facility] 00:00:00 00:00:00 MD Bruna: [facility] [place] [address] GC_WPSA_Wes [facility], [address], [place] [address] , Ph. 2020-06-03 2020-06-03 Outpatient Bruna, Shayla PRIV PRIV [id number] 00:00:00 00:00:00 Ganesh [id number] 2020-06-03 2020-06-03 Outpatient Bruna, Shayla PRIV PRIV [id number] 00:00:00 00:00:00 Ganesh [id number] 2020-05-12 2020[facility]12 [facility] 1.2.840.114 8 [id number] 14:29:00 23:59:00 Encounter Rupa Malloy 350.1.13.10 [facility] 4.2.7.2.686 [id number] [id number] 2020-05-12 2020-05-12 [facility] 1.2.840.114 [id number] Univers 14:29:00 23:59:00 Encounter Rupa Malloy 350.1.13.10 ity of BUILDING 4.2.7.2.686 Lj as [phone] [address] 2020-05-12 2020-05-12 Outpatient Adelia SHIRIN [facility] ACO [id number] Univers 00:00:00 00:00:00 RUPA [facility] 2020-05-11 2020-05-11 [facility] 1.2.840.114 [id number] 12:47:23 15:00:26 Visit [facility] 350.1.13.10 Surgical 4.2.7.2.686 Specialti [id number] es [address] [place] [address] 2020-05-11 2020-05-11 Office [facility] 1.2.840.114 [id number] Univers 12:47:23 15:00:26 Visit [facility] 350.1.13.10 it y of Surgical 4.2.7.2.686 Lj as Specialti [id number] Al dical es 198 [facility] 2020-05-11 2020-05-11 [facility]patient [facility] [id number] Univers 13:00:00 13:00:00 [facility] 2020-05-10 2020-05-10 Telephone [facility] 1.2.840.114 [id number] Univers 00:00:00 00:00:00 [facility] 350.1.13.10 it y of Surgical 4.2.7.2.686 Lj as Specialti [phone] Al dical es 198 [facility] 2020-05-04 2020-05-04 Outpatient Ad[facility] [id number] Univers 14:15:00 14:15:00 [facility] 2020-05-04 2020-05-04 Telephone [facility] 1.2.840.114 [id number] Univers 00:00:00 00:00:00 Ward [facility] 350.1.13.10 it y of Surgical 4.2.7.2.686 Lj as Specialti [phone] Al dical es 198 [facility] 2020-04-21 2020-04-21 Orders Doctor LUIS 1.2.840.114 [id number] Univers 00:00:00 00:00:00 Only Unassigned, TAYLOR 350.1.13.10 [facility] 4.2.7.2.686 Lj as [phone] [facility] [address] Branch 2020-04-13 2020-04-13 Patient Steven [facility] 1.2.840.114 [id number] Univers 00:00:00 00:00:00 Outreach [place] PRIMARY 350.1.13.10 i ty of [facility] [place] [facility] [phone] Me dical 388 Branch 2020-03-29 2020-03-29 Orders Doctor LUIS 1.2.840.114 [id number] Univers 00:00:00 00:00:00 Only Unassigned, TAYLOR 350.1.13.10 [facility] 4.2.7.2.686 Lj as [phone] [place] [address] Branch 2020-03-03 2020-03-03 Orders Doctor GOMEZ 1.2.840.114 [id number] Univers 00:00:00 00:00:00 Only Unassigned, TAYLOR 350.1.13.10 [facility] 4.2.7.2.686 Lj as [phone] [place] [address] Branch 2020-02-04 2020-02-04 Orders Doctor GOMEZ 1.2.840.114 [id number] Univers 00:00:00 00:00:00 Only Unassigned, TAYLOR 350.1.13.10 [facility] 4.2.7.2.686 Lj as [phone] [facility] 009 Branch 2019-12-22 2019-12-22 Hospital Radiology [facility] 1.2.840.114 [id number] Univers 12:34:42 23:59:00 Encounter Tracey 350.1.13.10 [place] [phone] [facility] 801 Branch 2019-12-22 2019-12-22 Outpatient R RADIOLOGY [facility] [id number] Univers 00:00:00 00:00:00 ity of [facility] 2019-11-24 2019-11-24 Orders Doctor LUIS 1.2.840.114 [id number] Univers 00:00:00 00:00:00 Only Unassigned, TAYLOR 350.1.13.10 [facility] 4.2.7.2.686 Lj as [phone] [address] 2019-09-20 2019-09-21 Emergency [facility] 1.2.635.522 [id number] Univers 22:42:00 02:53:00 Edward Menchaca 350.1.13.10 i ty [place] [phone] [place] 354764 [place] 2019-08-26 2019-08-26 Telephone Hernan Munoz CE 1.2.840.11 [id number] Univers 00:00:00 00:00:00 [facility] 350.1.13.10 i ty of CL[place] [phone] [place] 354769 [place] 2019-08-20 2019-08-20 Office [facility] 1.2.840.114 [id number] Univers 15:02:58 16:18:49 Visit [facility] 350.1.13.10 it y of Surgical 4.2.7.2.686 Lj as Specialti [phone] Al dical es 198 [facility] 2019-08-20 2019-08-20 Outpatient R [facility] [id number] Univers 15:15:00 15:15:00 NO ity of [facility] 2019-08-20 2019-08-20 Orders Doctor LUIS 1.2.840.114 [id number] Univers 00:00:00 00:00:00 Only Unassigned, TAYLOR 350.1.13.10 [place] of [facility] 4.2.7.2.686 Lj as [id number] [address] 2019-08-19 2019-08-19 Outpatient [facility] [id number] Common 13:47:00 13:47:00 t Bone Bone [facility] Sp[facility] t [facility] 2019-07-14 2019-07-15 Emergency X SANJU [facility] ERT [id number] Univers 21:29:13 00:54:00 SEAN ity [facility] 2019-07-14 2019-07-15 Emergency Sanju [facility] 1.2.850.365 [id number] Univers 21:29:13 00:54:00 Sean [place]ch[place] 350.1.13.10 i ty [place] [phone] [address] 2019-06-24 2019-06-24 Orders Doctor LUIS 1.2.840.114 [id number] Univers 00:00:00 00:00:00 Only Unassigned, TAYLOR 350.1.13.10 [place] of [place] [facility] 4.2.7.2.686 Lj as [id number] [address] 2019-06-18 2019-06-18 Outpatient R [facility] [id number] Univers 10:30:00 10:30:00 AVRIL ity [facility] 2019-06-12 2019-06-12 Refivon Mercado, UNIVERSIT 1.2.760.592 [id number] Univers 00:00:00 00:00:00 Franco Y HEALTH 350.1.13.10 ity [place] [phone] [address] 2019-06-11 2019-06-11 Outpatient R [facility] [id number] Univers 15:00:00 15:00:00 ity of [facility] 2019-06-11 2019-06-11 Telemedici Fellow, Pulmonary UNIVERSIT 1.2 .840.114 [id number] Univers 08:16:04 08:46:04 ne Visit Hany Valdes Y HEALTH 350.1 .13.10 ity of [place] [phone] [address] 2019-05-30 2019-05-30 Transition Nanda Klein 1.2.840.114 [id number] Univers 00:00:00 00:00:00 of Care Sheron Deshpande 350.1.13.10 it y of [place] [phone] [facility] 403 [address] 2019-05-22 2019-05-29 Inpatient R HERNAN MUNOZ [facility] [id number] Univers 21:22:00 15:13:00 ity of [facility] 2019-05-22 2019-05-29 Hospital Hernan Munoz 1.2.840 .114 [id number] Univers 21:22:00 15:13:00 Encounter Mansi Pollard 350.1.13.10 ity of [facility] 4.2.7.2.686 Lj as [phone] [address] 2019-05-22 2019-05-22 Telemedici Hernan Munoz [facility] 1.2.840.1 14 [id number] Univers 07:53:51 08:23:51 ne Visit [facility] 350.1.13.10 ity [place] [phone] [address] 2019-05-14 2019-05-14 Telephone [facility] 1.2.840.114 [id number] Univers 00:00:00 00:00:00 [facility] 350.1.13.10 i ty of [place] [phone] [address] 2019-04-18 2019-04-18 Emergency X [facility] ERT [id number] Univers 01:12:24 03:15:00 STUART itbrigitte of [facility] 2019-04-18 2019-04-18 Emergency [facility] 1.2.783.907 [id number] Univers 01:12:24 03:15:00 Stuart [place] 350.1.13.10 i ty [place] [phone] [address] 2019-04-11 2019-04-11 Letter [facility] 1.2.840.114 [id number] Univers 00:00:00 00:00:00 (Out) Kalen CAR 350.1.13.10 ity of [place] [phone] [facility] AND MEEK 011 Branch [facility] 2019-04-10 2019-04-10 Brand Activation Manager [facility] UNIVERSIT 1.2.840.114 [id number] Univers 09:23:25 09:38:25 Visit Preeti Lamar HEALTH 350.1.13.10 ity of CL[place] [phone] [facility] 316 [address] 2019-04-10 2019-04-10 Office Dar Golden UNIVERSIT 1.2.8 40.114 [id number] Univers 07:52:48 09:10:16 Visit LamarPreeti HEALTH 350.1.13.10 ity of [place] [phone] [facility] 089 Branch 2019-04-10 2019-04-10 Outpatient R BRIANDA [facility] [id number] Univers 08:00:00 08:00:00 [facility] 2019-04-10 2019-04-10 Orders Doctor LUIS 1.2.840.114 [id number] Univers 00:00:00 00:00:00 Only Unassigned, TAYLOR 350.1.13.10 [place] [facility] 4.2.7.2.686 Lj as [id number] [facility] 009 Branch 2019-03-18 2019-03-18 Inpatient E [facility] MED 7500 [facility] 20:07:00 14:57:00 2019-03-18 2019-03-18 Transition Nanda Klein 1.2.840.114 [id number] Univers 00:00:00 00:00:00 of Care Sheron Deshpande 350.1.13.10 it y of [place] [phone] [facility] 403 [address] 2019-03-13 2019-03-16 Inpatient X MOIRA [facility] AJ [id number] Univers 13:15:05 17:20:00 DAVON quintero [facility] 2019-03-13 2019-03-16 [facility] Carol Patiño 1.2.840. 114 [id number] Univers 13:15:05 17:20:00 Encounter Davon Pizarroy 350.1.1 3.10 ity of [facility] 4.2.7.2.686 [place] [phone] [facility] 095 Branch 2019-03-13 2019-03-13 Transition Nanda Klein 1.2.840.114 [id number] Univers 00:00:00 00:00:00 of Care Sheron Deshpande 350.1.13.10 it y of [place] 4.2.7.2.686 [facility] [phone] [facility] 403 [address] 2019-03-09 2019-03-12 [facility] 1.2.840.1 14 [id number] [facility] 14:20:20 11:50:00 Encounter Brianne Hickey 350.1.13.10 ity of [place] [phone] [facility] 080 Branch 2019-03-09 2019-03-12 Inpatient X ELENI HICKEY [facility] [id number] Univers 14:20:20 11:50:00 ADNAN ity of [facility] 2018-02-06 2018-02-06 [facility] [id number] Common 15:15:00 15:15:00 t Women Womens [facility] 2018-01-03 2018-01-03 [facility] [id number] Common 09:30:00 09:30:00 t [facility] 2017-09-13 2017-09-13 [facility] [id number] Common 08:00:00 08:00:00 t Bone Bone [facility] Spiri t [facility] 2017-09-06 2017-09-06 Out[facility] 14 [id number] Common 10:00:00 10:00:00 t Bone Bone and Spiri t [facility] Results Test Description Test Time Test Comments Results Result Comments Source MAGNESIUM 2022-11-06 06:14:04 Test Item Value Reference Range Interpretation Comme nts MAGNESIUM (test code = 5824177690) 1.5 mg/dL 1.7-2.4 L Lab Interpretation (test code = 80948-3) [facility]normal [facility]01631[facility]2022-[facility]-06 06:13:44 Test Item Value Reference Range Interpretation Comments NA (test code = 134 mmol/L 135-145 L 1462344135) K (test code = 4.2 mmol/L 3.5-5.0 5060986419) CL (test code = 89 mmol/L 98-108 L 0175377424) CO2 TOTAL (test code = 38 mmol/L 23-31 H 0761877765) AGAP (test code = 7 2-16 2323415358) BUN (test code = 11 mg/dL 7-23 8118214492) GLUCOSE (test code = 137 mg/dL 70-110 H 3122125739) CREATININE (test code = 0.40 mg/dL 0.50-1.04 L 0427402590) TOTAL BILI (test code = 0.8 mg/dL 0.1-1.5 0545050046) CALCIUM (test code = 9.7 mg/dL 8.6-10.6 6508487715) T PROTEIN (test code = 7.9 g/dL 6.3-8.2 3220634442) ALBUMIN (test code = 3.7 g/dL 3.5-5.0 7789863528) ALK PHOS (test code = 89 U/L 34-122 8883957125) ALTv (test code = 10 U/L 5-35 2-6) AST(SGOT) (test code = 27 U/L 13-40 8658298424) eGFR (test code = 161.2 mL/min/1.73m2 8892441480) KYLE (test code = KYLE) Association of [...] tests). Lab Interpretation Abnormal (test code = 46086-8) [facility] 06:13:43 Test Item Value Reference Range Interpretation Comments LIPASE (test code = 7510798064) 10 U/L 0-220 Lab Interpretation (test code = Normal 10901-0) [facility] WITH [id number] 06:00:21 Test Item Value Reference Range Interpretation Comments WBC (test code = 17.39 See_Comment H [Automated 6943-2) message] The system which generated this result transmit blayne reference range : 4.30 - 11.10 10*3/?L. The reference range was not used to interpret this result as normal/abnormal . RBC (test code = 3.38 See_Comment L [Automated 194-8) message] The system which generated this result [...] RDW-SD (test code = 45.8 fL 39.0-49.9 09837-7) RDW-CV (test code = 13.6 % 12.0-15.5 788-0) PLT (test code = 308 See_Comment [Automated 777-3) message] The system which generated this result transmit blayne reference range : 166 - 358 10*3/ ?L. The reference range was not u sed to interpret th is result as normal/abnormal . MPV (test code = 9.6 fL 9.5-12.9 82487-6) NRBC/100 WBC (test 0.0 See_Comment [Automat ed code = 9506510495) message] The system which generated this result transmit blayne reference range : 0.0 - 10.0 /100 WBCs. The reference range was not used to interpret this result as normal/abnormal . NRBC x10^3 (test code See_Comment [Auto mated = 1143436585) message] The system which generated this result transmit blayne reference range : 10*3/?L. The reference range was not used to interpret this result as normal/abnormal . GRAN MAT (NEUT) % 82.2 % (test code = 770-8) IMM GRAN % (test code 0.60 % = 2046364136) LYMPH % (test code = 7.4 % 736-9) MONO % (test code = 6.7 % 5905-5) EOS % (test code = 2.8 % 713-8) BASO % (test code = 0.3 % 706-2) GRAN MAT x10^3(ANC) 14.29 10*3/uL 1.88-7.09 H (test code = 1353795801) IMM GRAN x10^3 (test 0.11 10*3/uL 0.00-0.06 H code = 0267486228) LYMPH x10^3 (test code 1.28 10*3/uL 1.32-3.29 L = 731-0) MONO x10^3 (test code 1.17 10*3/uL 0.33-0.92 H = 742-7) EOS x10^3 (test code = 0.49 10*3/uL 0.03-0.39 H 711-2) BASO x10^3 (test code 0.05 10*3/uL 0.01-0.07 = 704-7) Lab Interpretation Abnormal (test code = 75197-4) [facility] 21 + LACTIC [id number] 05:47:13 Test Item Value Reference Range Interpretation Comments PH (test code = 7.41 7.32-7.42 2437962388) PCO2 SONIA (test code = 58 See_Comment H [Auto mated 6233857654) message] The sy stem which generated this result transmitted reference range : 41 - 51 mmHg. The reference range was not used to interpret this result as normal/abnormal . PO2 SONIA (test code = 59 See_Comment HH [Autom ated 5928337102) message] The sy stem which generated this result transmitted reference range : 25 - 40 mmHg. The reference range was not used to interpret this result as normal/abnormal . HCO3 SONIA (test code = 36 See_Comment H [Auto mated 1675378460) message] The sy stem which generated this result transmitted reference range : 24 - 28 mEq/L. The reference range was not used to interpret this result as normal/abnormal . AC VBE(BEAKER) (test 9.9 mEq/L code = 8587577230) THB SONIA (test code = 10.6 g/dL 12.0-16.0 L 1575916080) %O2HB SONIA (test code = 91.4 % 52.0-63.0 H 2196845568) %COHB SONIA (test code = 0.4 % 0.0-1.5 8416348395) %METHB SONIA (test code = 0.3 % 0.4-1.5 L 0613311892) VOL%O2 SONIA (test code = 13.7 % 6.0-12.0 H 3244564657) NA (test code = 137 mmol/L 135-145 2548484183) K+ (test code = 3.9 mmol/L 3.5-5.0 9364426472) AC CA IONZ (test code = 5.00 mg/dL 4.50-5.30 5553168577) GLUCOSE (test code = 147 mg/dL 70-110 H 3253587507) LACTIC ACID (test code 1.12 mmol/L 0.50-2.20 = 4891842829) Lab Interpretation Abnormal (test code = 50700-7) [facility] [id number] 05:41:00 Test Item Value Reference Range Interpretation Comments Fungus culture No growth Specimen isolate (test after 4 weeks InformationSp ecimen code = 580-1) of Source: Bronch ial alveolar incubation. lavageSpecimen Site: MARC (Left Upper Lob e) [facility] [id number] 05:41:00 Test Item Value Reference Range Interpretation Comments Fungus culture No growth Specimen isolate (test after 4 weeks InformationSp ecimen code = 580-1) of Source: Bronch ial alveolar incubation. lavageSpecimen Site: MARC (Left Upper Lob e) [facility] [id number] 05:41:00 Test Item Value Reference Range Interpretation Comments Fungus culture No growth Specimen isolate (test after 4 weeks InformationSp ecimen code = 580-1) of Source: Bronch ial alveolar incubation. lavageSpecimen Site: MARC (Left Upper Lob e) [facility] gaiptxe3610-14-11 19:22:00 Test Item Value Reference Interpretation Comments Range Legionella No Legionella Specimen culture isolate isolated. InformationS pecimen (test code = Source: Bronchi al 1656) alveolar lavage Specimen Site: MARC (Left Upper Lobe) [facility] qexazei5502-13-96 19:22:00 Test Item Value Reference Interpretation Comments Range Legionella No Legionella Specimen culture isolate isolated. InformationS pecimen (test code = Source: Bronchi al 1656) alveolar lavage Specimen Site: MARC (Left Upper Lobe) [facility] jhalabg2190-77-30 19:22:00 Test Item Value Reference Interpretation Comments Range Legionella No Legionella Specimen culture isolate isolated. InformationS pecimen (test code = Source: Bronchi al 1656) alveolar lavage Specimen Site: MARC (Left Upper Lobe) [facility] [id number] 14:57:00 Test Item Value Reference Range Interpretation Comments Nocardia No Nocardia Specimen culture isolate isolated after Informatio nSpecimen (test code = 7 days. Source: Bronchi al 1808) alveolar lavage Specimen Site: MARC (Left Upper Lobe) [facility] [id number] 14:57:00 Test Item Value Reference Range Interpretation Comments Nocardia No Nocardia Specimen culture isolate isolated after Informatio nSpecimen (test code = 7 days. Source: Bronchi al 1808) alveolar lavage Specimen Site: MARC (Left Upper Lobe) [facility] [id number] 14:57:00 Test Item Value Reference Range Interpretation Comments Nocardia No Nocardia Specimen culture isolate isolated after Informatio nSpecimen (test code = 7 days. Source: Bronchi al 1808) alveolar lavage Specimen Site: MARC (Left Upper Lobe) [facility] [id number] 11:26:00 Test Item Value Reference Range Interpretation Comments Respiratory Normal oral Specimen culture isolate ghassan InformationS pecimen (test code = isolated. Source: [place]chi [place] 22096-8) alveolar lavage Specimen Site: MARC (Left Upper Lobe[facility] [id number] 11:26:00 Test Item Value Reference Range Interpretation Comments Respiratory Normal oral Specimen culture isolate ghassan InformationS pecimen (test code = isolated. Source: Bronchi al 28047-0) alveolar lavage Specimen Site: MARC (Left Upper Lobe) [facility] rosjqcu1156-06-36 11:26:00 Test Item Value Reference Range Interpretation Comments Respiratory Normal oral Specimen culture isolate ghassan InformationS pecimen (test code = isolated. Source: Bronchi [place] 85787-4) alveolar lavage Specimen Site: MARC (Left Upper Lobe) [facility] referral [id number] 18:54:00 Test Item Value Reference Range Interpretation Comments Misc test VIRACOR ASPERGILLUS name (test GALACTOMANNAN BAL code = 2566) Misc test see comment Aspergillus result (test Galactomannan ( BAL) code = 1730) 1600 TEST INDEX VALUE REF RANGEAsp. Galactomannan 0 .077 <0.500 Interpretation: Patients with [...] Galactomannan E IA is a product of [employer] and is FDA appr thomas for in vitro diagnostic use. Reported 2022 Performed at: [facility], [address] [place], [place] [address] KYLE (test ASPERGILUS code = KYLE) GALACTOMANNAN BAL [facility] referral [id number] 18:54:00 Test Item Value Reference Range Interpretation Comments [facility] test VIRACOR ASPERGILLUS name (test GALACTOMANNAN BAL code = 2566) [facility] test see comment Aspergillus result (test Galactomannan ( BAL) code = 1730) 1600 TEST INDEX VALUE REF RANGEAsp. Galactomannan 0 .077 <0.500 Interpretation: Patients with [...] Galactomannan E IA is a product of [employer] and is FDA appr thomas for in vitro diagnostic use. Reported 2022 Performed at: [facility], [address] [place], [place] [address] KYLE (test ASPERGILUS code = KYLE) GALACTOMANNAN BAL [facility] referral [id number] 18:54:00 Test Item Value Reference Range Interpretation Comments [facility] test VIRACOR ASPERGILLUS name (test GALACTOMANNAN BAL code = 2566) [facility] test see comment Aspergillus result (test Galactomannan ( BAL) code = 1730) 1600 TEST INDEX VALUE REF RANGEAsp. Galactomannan 0 .077 <0.500 Interpretation: Patients with [...] Galactomannan E IA is a product of [employer] and is FDA appr thomas for in vitro diagnostic use. Reported 2022 Performed at: [facility], [address] [place], [place] [address] KYLE (test ASPERGILUS code = KYLE) GALACTOMANNAN BAL MARC [facility] - [id number] 18:32:00 Test Item Value Reference Range Interpretation Comments Pneumocystis qPCR BAL source (test code = 2568) Pneumocystis qPCR Not Detected copies/mL PNEUMOCYST IS qPCR qnt (test code = VIRACORExpe cted 1979) results: Not detectedAssay r arnulfo: 500 to 6h97a47 DNA copies/mlTest performed by:[id number] [place], [place] [address] KYLE (test code = BAL MARC KYLE) [facility] HospitalPneumocystis carinii qPCR - [id number] 18:32:00 Test Item Value Reference Range Interpretation Comments Pneumocystis qPCR BAL source (test code = 2568) Pneumocystis qPCR Not Detected copies/mL PNEUMOCYST IS qPCR qnt (test code = VIRACORExpe cted 1979) results: Not detectedAssay r arnulfo: 500 to 4g06t41 DNA copies/mlTest performed by:[id number] [place], [place] [address] KYLE (test code = BAL MARC KYLE) [facility] HospitalPneumocystis carinii qPCR - [id number] 18:32:00 Test Item Value Reference Range Interpretation Comments Pneumocystis qPCR BAL source (test code = 2568) Pneumocystis qPCR Not Detected copies/mL PNEUMOCYST IS qPCR qnt (test code = VIRACORExpe cted 1979) results: Not detectedAssay r arnulfo: 500 to 7s70b94 DNA copies/mlTest performed by:[id number] [place], [place] [address] KYLE (test code = BAL MARC KYLE) [facility] [id number] 21:37:18 Test Item Value Reference Range Interpretation Comments Case number (test code = [id number]) Cytology See link below for (non-gynecological) PDF Lab Report report (test code = 1178) Result status (test code This is Final Report = [id number]) for [id number] [facility] [id number] 21:37:18 Test Item Value Reference Range Interpretation Comments Case number (test code = [id number]) Cytology See link below for (non-gynecological) PDF Lab Report report (test code = 1178) Result status (test code This is Final Report = [id number]) for [id number] [facility] [id number] 21:37:18 Test Item Value Reference Range Interpretation Comments Case number (test code = [id number]) Cytology See link below for (non-gynecological) PDF Lab Report report (test code = 1178) Result status (test code This is Final Report = [id number]) for [id number] [facility] HospitalAF[facility] [id number] 19:09:00 Test Item Value Reference Range Interpretation Comments AFB stain No acid fast Specimen (test code = bacilli (AFB) InformationSpe cimen 676-7) seen. Source: Bronchi al alveolar lavageSpecimen Site: MARC (Left Upper Lob e) [facility] Hospital[facility] [id number] 19:09:00 Test Item Value Reference Range Interpretation Comments AFB stain No acid fast Specimen (test code = bacilli (AFB) InformationSpe cimen 676-7) seen. Source: Bronchi al alveolar lavageSpecimen Site: MARC (Left Upper Lob e) [facility] HospitalAF[facility] [id number] 19:09:00 Test Item Value Reference Range Interpretation Comments AFB stain No acid fast Specimen (test code = bacilli (AFB) InformationSpe cimen 676-7) seen. Source: Bronchi al alveolar lavageSpecimen Site: MARC (Left Upper Lob e) [facility] Hospital[facility] [id number] 19:04:00 Test Item Value Reference Range Interpretation Comments Fungus smear No fungi Specimen (test code = observed. InformationSpec imen Source: 1443) Bronchial alveo lar lavageSpecimen Site: MARC (Left Upper Lob e) [facility] [id number] 19:04:00 Test Item Value Reference Range Interpretation Comments Fungus smear No fungi Specimen (test code = observed. InformationSpec imen Source: 1443) Bronchial alveo lar lavageSpecimen Site: MARC (Left Upper Lob e) [facility] [id number] 19:04:00 Test Item Value Reference Range Interpretation Comments Fungus smear No fungi Specimen (test code = observed. InformationSpec imen Source: 1443) Bronchial alveo lar lavageSpecimen Site: MARC (Left Upper Lob e) [place] [address] ventilation [id number] 16:09:48 Test Item Value Reference Range Interpretation Comments SUPPLIER NAME (test Quinones (Hillrom - code = 6415) Respiratory Health) SUPPLIER PHONE (test code = 6416) ORDER STATUS (test code Completed = 6417) DELIVERY NOTE (test code = 6419) REQUESTED DELIVEY DATE 09/11/2022 (test code = 6420) ITEM DESCRIPTION (test Bacterial Filter for Qty: 1 code = 6423) Non-Invasive Ventilator ACTUAL DELIVERY DATE 09/11/2022 (test code = 6422) [place] [address] ventilation [id number] 16:09:48 Test Item Value Reference Range Interpretation Comments SUPPLIER NAME (test Quinones (Hillrom - code = 6415) Respiratory Health) SUPPLIER PHONE (test code = 6416) ORDER STATUS (test code Completed = 6417) DELIVERY NOTE (test code = 6419) REQUESTED DELIVEY DATE 09/11/2022 (test code = 6420) ITEM DESCRIPTION (test Bacterial Filter for Qty: 1 code = 6423) Non-Invasive Ventilator ACTUAL DELIVERY DATE 09/11/2022 (test code = 6422) [place] [address] ventilation [id number] 16:09:48 Test Item Value Reference Range Interpretation Comments SUPPLIER NAME (test Quinones (Hillrom - code = 6415) Respiratory Health) SUPPLIER PHONE (test code = 6416) ORDER STATUS (test code Completed = 6417) DELIVERY NOTE (test code = 6419) REQUESTED DELIVEY DATE 09/11/2022 (test code = 6420) ITEM DESCRIPTION (test Bacterial Filter for Qty: 1 code = 6423) Non-Invasive Ventilator ACTUAL DELIVERY DATE 09/11/2022 (test code = 6422) [facility] [id number] 12:00:00 Test Item Value Reference Range Interpretation Comments Gram stain No WBC's or Specimen isolate (test organisms seen. Information Specimen code = 1469) Source: Bronchi al alveolar lavage Specimen Site: MARC (Left Upper Lobe) [facility] [id number] 12:00:00 Test Item Value Reference Range Interpretation Comments Gram stain No WBC's or Specimen isolate (test organisms seen. Information Specimen code = 1469) Source: Bronchi al alveolar lavage Specimen Site: MARC (Left Upper Lobe) [facility] [id number] 12:00:00 Test Item Value Reference Range Interpretation Comments Gram stain No WBC's or Specimen isolate (test organisms seen. Information Specimen code = 1469) Source: Bronchi al alveolar lavage Specimen Site: MARC (Left Upper Lobe) [facility] [id number] 11:49:00 Test Item Value Reference Interpretation Comments [...] A PCR Not Detected (test code = 43295-5) Influenza A/H1 PCR Not reported (test code = 7100) Influenza A/H3 PCR Not reported (test code = 7102) Influenza A/H1-2009 Not Reported PCR (test code = 7101) Respiratory Not Detected syncytial virus PCR (test code = 88829-7) Parainfluenza virus Not Detected 1 PCR (test code = 7105) Parainfluenza virus Not Detected 2 PCR (test code = 7106) Parainfluenza virus Not Detected 3 PCR (test code = 7107) Parainfluenza virus Not Detected 4 PCR (test code = 7108) Bordetella pertussis Not Detected PCR (test code = 4956414) Bordetella Not Detected parapertussis PCR (test code = 9641528) Chlamydia pneumoniae Not Detected PCR (test code = 3753) Mycoplasma Not Detected pneumoniae PCR (test code = 7110) COVID-19 qualitative Not Detected RT-PCR result (test code = 05414-7) [facility] [id number] 11:49:00 Test Item Value Reference Interpretation Comments [...] A PCR Not Detected (test code = 60171-4) Influenza A/H1 PCR Not reported (test code = 7100) Influenza A/H3 PCR Not reported (test code = 7102) Influenza A/H1-2009 Not Reported PCR (test code = 7101) Respiratory Not Detected syncytial virus PCR (test code = 59983-2) Parainfluenza virus Not Detected 1 PCR (test code = 7105) Parainfluenza virus Not Detected 2 PCR (test code = 7106) Parainfluenza virus Not Detected 3 PCR (test code = 7107) Parainfluenza virus Not Detected 4 PCR (test code = 7108) Bordetella pertussis Not Detected PCR (test code = 7570832) Bordetella Not Detected parapertussis PCR (test code = 4622679) Chlamydia pneumoniae Not Detected PCR (test code = 3753) Mycoplasma Not Detected pneumoniae PCR (test code = 7110) COVID-19 qualitative Not Detected RT-PCR result (test code = 88159-1) [facility]-19 [id number] 11:49:00 Test Item Value Reference Interpretation Comments [...] A PCR Not Detected (test code = 91607-1) Influenza A/H1 PCR Not reported (test code = 7100) Influenza A/H3 PCR Not reported (test code = 7102) Influenza A/H1-2009 Not Reported PCR (test code = 7101) Respiratory Not Detected syncytial virus PCR (test code = 60295-0) Parainfluenza virus Not Detected 1 PCR (test code = 7105) Parainfluenza virus Not Detected 2 PCR (test code = 7106) Parainfluenza virus Not Detected 3 PCR (test code = 7107) Parainfluenza virus Not Detected 4 PCR (test code = 7108) Bordetella pertussis Not Detected PCR (test code = 2265854) Bordetella Not Detected parapertussis PCR (test code = 6026131) Chlamydia pneumoniae Not Detected PCR (test code = 3753) Mycoplasma Not Detected pneumoniae PCR (test code = 7110) COVID-19 qualitative Not Detected RT-PCR result (test code = 41755-2) [facility] [id number] 06:47:36 Test Item Value Reference Interpretation Comments Range Interpretation Negative results do (test code = not preclude COVID-19 2926349) infection and should not be used asthe sole basis for treatment or other patient management decisions. Negativeresults must be combined with clinical observations, patient history, andepidemiological information. COVID-19 Not-Detected Not-Detected DISCLAIMER:This qualitative RT-PCR test was result (test code performed using = 70308-6) the Aptima SARS-CoV-2 Assa y ([employer]). This assay is available for i n vitro diagnosti c use under Food and Drug Administration (FDA) Emergency Use Authorizati on (EUA) and has been verified f or clinical use by the [facility]. Information on the FDA [...] ts for nucleic aci d extraction and senior javascript developer mediated amplification. COVID-19 See link below for PDF Case Number: qualitative RT-PCR Lab Report [id number] PDF (test code = 7070) [facility] qualitative [id number] 06:47:36 Test Item Value Reference Interpretation Comments Range Interpretation Negative results do (test code = not preclude COVID-19 6427208) infection and should not be used asthe sole basis for treatment or other patient management decisions. Negativeresults must be combined with clinical observations, patient history, andepidemiological information. COVID-19 Not-Detected Not-Detected DISCLAIMER:This qualitative RT-PCR test was result (test code performed using = 58735-8) the Aptima SARS-CoV-2 Assa y ([employer]). This assay is available for i n vitro diagnosti c use under Food and Drug Administration (FDA) Emergency Use Authorizati on (EUA) and has been verified f or clinical use by the [facility]. Information on the FDA [...] ts for nucleic aci d extraction and senior javascript developer mediated amplification. COVID-19 See link below for PDF Case Number: qualitative RT-PCR Lab Report [id number] PDF (test code = 7070) [facility] [id number] 06:47:36 Test Item Value Reference Interpretation Comments Range Interpretation Negative results do (test code = not preclude COVID-19 6771044) infection and should not be used asthe sole basis for treatment or other patient management decisions. Negativeresults must be combined with clinical observations, patient history, andepidemiological information. COVID-19 Not-Detected Not-Detected DISCLAIMER:This qualitative RT-PCR test was result (test code performed using = 07586-4) the Aptima SARS-CoV-2 Assa y ([employer]). This assay is available for i n vitro diagnosti c use under Food and Drug Administration (FDA) Emergency Use Authorizati on (EUA) and has been verified f or clinical use by the [facility]. Information on the FDA policy for diagnostic tests for coronavirus disease- 2019 i s available at:https://www. fd a.gov/medical-d ev ices/emergency- si tuations-medica l- devices/faqs-di ag nostic-testing- sa rs-cov-2It is critical that health care providers and patients review the applicable fact sheet(s) i n interpreting or understanding t he test results th at are available upon request.METHODO LO GY:This assay utilizes staceyen ts for nucleic aci d extraction and senior javascript developer mediated amplification. COVID-19 See link below for PDF Case Number: qualitative RT-PCR Lab Report [id number] PDF (test code = 7070) [facility] cell count and luyofitjeyeq0643-79-78 03:16:00 Test Item Value Reference Range Interpretation Comments BAL specimen source MARC BAL (test code = 71060-9) BAL cell count (test 0.110 m/mL 69% VIa bility.Normal code = 48335-3) ranges: Nons mokers: 0.007 - 0.363 Smokers: 0 - 1. 31 BAL PAMS (test code = 2 % Normal ranges: 95740-8) Nonsmokers: 65 - 100 Smokers: 81 - 1 00 BAL PMNS (test code = 97 % Normal ranges: 9306-2) Nonsmokers: 0 - 3 Smokers: 0 - 2 BAL lymphs (test code 1 % Normal ranges: = 16924-2) Nonsmokers: 0 - 10 Smokers: 0 - 5 [facility] wftunwoyxjtf4469-08-68 03:16:00 Test Item Value Reference Range Interpretation Comments BAL specimen source MARC BAL (test code = 33598-3) BAL cell count (test 0.110 m/mL 69% VIa bility.Normal code = 92689-5) ranges: Nons mokers: 0.007 - 0.363 Smokers: 0 - 1. 31 BAL PAMS (test code = 2 % Normal ranges: 11850-9) Nonsmokers: 65 - 100 Smokers: 81 - 1 00 BAL PMNS (test code = 97 % Normal ranges: 9306-2) Nonsmokers: 0 - 3 Smokers: 0 - 2 BAL lymphs (test code 1 % Normal ranges: = 80339-2) Nonsmokers: 0 - 10 Smokers: 0 - 5 [facility] and xtebmpsfosqc1122-29-64 03:16:00 Test Item Value Reference Range Interpretation Comments BAL specimen source MARC BAL (test code = 21051-3) BAL cell count (test 0.110 m/mL 69% VIa bility.Normal code = 97041-1) ranges: Nons mokers: 0.007 - 0.363 Smokers: 0 - 1. 31 BAL PAMS (test code = 2 % Normal ranges: 56885-2) Nonsmokers: 65 - 100 Smokers: 81 - 1 00 BAL PMNS (test code = 97 % Normal ranges: 9306-2) Nonsmokers: 0 - 3 Smokers: 0 - 2 BAL lymphs (test code 1 % Normal ranges: = 58489-2) Nonsmokers: 0 - 10 Smokers: 0 - 5 [facility] RNA [Presence] in Respiratory specimen by CONNOR with probe rkpauqfci5231-54-01 01:47:36 Test Item Value Reference Range Interpretation Comments SARS-CoV-2 (COVID-19) RNA Not detected [Presence] in Respiratory specimen by CONNOR with probe detection (test code = 55288-8) Whether patient is employed in a Unknown healthcare setting (test code = 94931-8) Whether the patient has symptoms Unknown related to condition of interest (test code = 94075-9) Whether the patient was Unknown hospitalized for condition of interest (test code = 93789-6) Whether the patient was admitted Unknown to intensive care unit (ICU) for condition of interest (test code = 49467-5) Whether patient resides in a Unknown congregate care setting (test code = 85102-3) status (test code = Unknown 04547-0) Date and time of symptom onset Unknown (test code = 99406-1) [facility]Am[facility], [facility] mttrf6124-75-30 01:38:00 Test Item Value Reference Range Interpretation Comments Fluid type (test BAL code = 94416-6) Amylase, fluid 23 U/L The reference interval(s) (test code = and other metho d performance 1795-4) specifications have not been established for this body fluid. The test results must be integrated i nto the clinical contex t for interpretation. This test has been modified f rom the risk compliance analyst?s instructions. The performance characteristics were determined by Mellissa thomas in a manner consiste nt with CLIA requirements. T his test has not been cleare d or approved by the [place] Vern[place] d and Drug Administration. [facility] scdis1505-50-95 01:38:00 Test Item Value Reference Range Interpretation Comments Fluid type (test BAL code = 51347-0) Amylase, fluid 23 U/L The reference interval(s) (test code = and other metho d performance 1795-4) specifications have not been established for this body fluid. The test results must be integrated i nto the clinical contex t for interpretation. This test has been modified f rom the risk compliance analyst?s instructions. The performance characteristics were determined by Mellissa thomas in a manner consiste nt with CLIA requirements. T his test has not been cleare d or approved by the [place] and Drug Administration. [facility], [facility] cnijl9928-81-68 01:38:00 Test Item Value Reference Range Interpretation Comments Fluid type (test BAL code = 83203-4) Amylase, fluid 23 U/L The reference interval(s) (test code = and other metho d performance 1795-4) specifications have not been established for this body fluid. The test results must be integrated i nto the clinical contex t for interpretation. This test has been modified f rom the risk compliance analyst?s instructions. The performance characteristics were determined by Mellissa thomas in a manner consiste nt with CLIA requirements. T his test has not been cleare d or approved by the [place] Vern[place] d and Drug Administration. [address]2023-08-15 14:32:14 Test Item Value Reference Range Interpretation Comments Ventricular rate (test 72 code = 253) Atrial rate (test code 72 = 255) HI interval (test code 178 = 266) QRSD [...] of 11-SEP-2022 19:20,-No significant change was found- [address]2023-08-15 14:32:14 Test Item Value Reference Range Interpretation Comments Ventricular rate (test 72 code = 253) Atrial rate (test code 72 = 255) HI interval (test code 178 = 266) QRSD [...] of 11-SEP-2022 19:20,-No significant change was found- [address]2023-08-15 14:32:14 Test Item Value Reference Range Interpretation Comments Ventricular rate (test 72 code = 253) Atrial rate (test code 72 = 255) HI interval (test code 178 = 266) QRSD [...] of 11-SEP-2022 19:20,-No significant change was found- [facility] pathology qfqwekd6965-91-23 16:54:55 Test Item Value Reference Range Interpretation Comments Case number (test code = [id number]) Surgical pathology See link below for report (test code = PDF Lab Report 2255) Result status (test code This is Final Report = [id number]) for [id number] [facility] pathology [id number] 16:54:55 Test Item Value Reference Range Interpretation Comments Case number (test code = [id number]) Surgical pathology See link below for report (test code = PDF Lab Report 2255) Result status (test code This is Final Report = [id number]) for [id number] [place] [address] pathology [id number] 16:54:55 Test Item Value Reference Range Interpretation Comments Case number (test code = [id number]) Surgical pathology See link below for report (test code = PDF Lab Report 2255) Result status (test code This is Final Report = [id number]) for [id number] [facility]2023-07-29 02:54:00 Test Item Value Reference Range Interpretation Comments POC glucose (test code = 114 mg/dL 65-99 H Ope rator Name: Ceferino 54209-5) JerryDevice ID: [id number] able: [facility] Notified senior applications architect Interpretation (test Abnormal code = 34049-8) [facility]2023-07-29 02:54:00 Test Item Value Reference Range Interpretation Comments POC glucose (test code = 114 mg/dL 65-99 H Ope rator Name: Ceferino 05172-2) MacarioryDevice ID: [id number] able: [facility] Notified senior applications architect Interpretation (test Abnormal code = 70386-0) [facility]2023-07-29 02:54:00 Test Item Value Reference Range Interpretation Comments POC glucose (test code = 114 mg/dL 65-99 H Ope rator Name: Ceferino 46457-7) Lillian ID: [id number] able: [facility] Notified senior applications architect Interpretation (test Abnormal code = 53380-8) [facility] lmlsxhdl1381-29-73 15:16:43 Test Item Value Reference Range Interpretation [...] Speed (test code = 7627) 6.00 sec [facility] tedwkngh5121-95-06 15:16:43 Test Item Value Reference Range Interpretation [...] Speed (test code = 7627) 6.00 sec [facility]/ pulse dbzogpld2586-81-06 15:16:43 Test Item Value Reference Range Interpretation [...] Speed (test code = 7627) 6.00 sec [facility] Hospital[facility], lung volumes, [facility]/DYTB9899-02-13 13:53:37 Test Item Value Reference Range Interpretation [...] blayne message] code = 8396) The system [employer] generated this result transmitted ref erence range: [...] See_Comment [Automa blayne message] 8400) The system [employer] generated this result transmitted ref erence range: [...] blayne message] code = 8408) The system [employer] generated this result transmitted ref erence range: [...] See_Comment [Automa blayne message] 8412) The system [employer] generated this result transmitted ref erence range: 24.22 - 112.24 cmH2O. The refe rence range was not u sed to interpret this result as normal/abnor mal. MEP PK Predicted Value 68.23 (test code = 8413) MEP PK LLN (test code 24.22 = 8414) MEP PK % of Predicted 125.9 % (test code = 8415) [facility] lung [facility], MIPS/[id number] 13:53:37 Test Item Value Reference Range Interpretation [...] blayne message] code = 8396) The system [employer] generated this result transmitted ref erence range: [...] See_Comment [Automa blayne message] 8400) The system [employer] generated this result transmitted ref erence range: [...] blayne message] code = 8408) The system [employer] generated this result transmitted ref erence range: [...] See_Comment [Automa blayne message] 8412) The system [employer] generated this result transmitted ref erence range: 24.22 - 112.24 cmH2O. The refe rence range was not u sed to interpret this result as normal/abnor mal. MEP PK Predicted Value 68.23 (test code = 8413) MEP PK LLN (test code 24.22 = 8414) MEP PK % of Predicted 125.9 % (test code = 8415) [facility] lung volumes, MIPS/[id number] 13:53:37 Test Item Value Reference Range Interpretation [...] blayne message] code = 8396) The system [employer] generated this result transmitted ref erence range: [...] See_Comment [Automa blayne message] 8400) The system [employer] generated this result transmitted ref erence range: [...] blayne message] code = 8408) The system [employer] generated this result transmitted ref erence range: [...] See_Comment [Automa blayne message] 8412) The system [employer] generated this result transmitted ref erence range: 24.22 - 112.24 cmH2O. The refe rence range was not u sed to interpret this result as normal/abnor mal. MEP PK Predicted Value 68.23 (test code = 8413) MEP PK LLN (test code 24.22 = 8414) MEP PK % of Predicted 125.9 % (test code = 8415) [facility] kqrgykqn2609-34-59 15:29:30 Test Item Value Reference Range Interpretation [...] meters (test 40.00 m code = 7620) [facility] wyzrount3806-68-32 15:29:30 Test Item Value Reference Range Interpretation [...] meters (test 40.00 m code = 7620) [facility] hhosoezx7191-65-42 15:29:30 Test Item Value Reference Range Interpretation [...] meters (test 40.00 m code = 7620) [facility] pulse cpgdficu3500-11-13 15:29:30 Test Item Value Reference Range Interpretation [...] meters (test 40.00 m code = 7620) [facility] lung [id number] 15:27:52 Test Item Value Reference Range Interpretation [...] Predicted (test code = 21.7 % 5368) [facility] mmzdkie0796-56-28 15:27:52 Test Item Value Reference Range Interpretation [...] Predicted (test code = 21.7 % 5368) [facility] lung aqouqws8003-20-90 15:27:52 Test Item Value Reference Range Interpretation [...] Predicted (test code = 21.7 % 5368) [facility] zgxacgl2086-29-51 15:27:52 Test Item Value Reference Range Interpretation [...] Predicted (test code = 21.7 % 5368) [facility] pulse fetafshq8806-13-79 14:28:47 Test Item Value Reference Range Interpretation [...] meters (test code 40.00 m = 7620) [facility] [id number] 14:28:47 Test Item Value Reference Range Interpretation [...] meters (test code 40.00 m = 7620) [facility] qcvpnibe8296-12-17 14:28:47 Test Item Value Reference Range Interpretation [...] meters (test code 40.00 m = 7620) [facility] cctgbcip1029-67-08 14:28:47 Test Item Value Reference Range Interpretation [...] meters (test code 40.00 m = 7620) [facility] hdtdbcfl6861-27-65 14:44:17 Test Item Value Reference Range Interpretation [...] Speed (test code = 7627) 9.30 sec [facility] dnotpywu8420-88-98 14:44:17 Test Item Value Reference Range Interpretation [...] Speed (test code = 7627) 9.30 sec [facility] wjfijzkq4159-28-67 14:44:17 Test Item Value Reference Range Interpretation [...] Speed (test code = 7627) 9.30 sec [facility] petkoojz3878-75-85 14:44:17 Test Item Value Reference Range Interpretation [...] Speed (test code = 7627) 9.30 sec [facility]2023-03-20 14:05:38 Test Item Value Reference Range Interpretation [...] Predicted (test code = 21.6 % 5368) [facility]2023-03-20 14:05:38 Test Item Value Reference Range Interpretation [...] Predicted (test code = 21.6 % 5368) [facility]77[facility] 14:05:38 Test Item Value Reference Range Interpretation [...] Predicted (test code = 21.6 % 5368) [facility] HealthYwicgazhTpyhiekwrc0287-52-97 14:05:38 Test Item Value Reference Range Interpretation [...] Predicted (test code = 21.6 % 5368) [facility] nbzipkj5991-46-24 19:49:03 Test Item Value Reference Range Interpretation Comments Case number (test code = [id number]) Surgical pathology See link below for report (test code = PDF Lab Report 2630) Result status (test code This is Final Report = [id number]) for [id number] [facility] RNA [Presence] in Respiratory specimen by CONNOR with probe ycoiupcif5280-24-02 16:07:37 Test Item Value Reference Range Interpretation Comments SARS-CoV-2 (COVID-19) RNA Not detected [Presence] in Respiratory specimen by CONNOR with probe detection (test code = 86385-0) Whether patient is employed in a Unknown healthcare setting (test code = 32957-9) Whether the patient has symptoms Unknown related to condition of interest (test code = 52807-4) Whether the patient was Unknown hospitalized for condition of interest (test code = 43585-9) Whether the patient was admitted Unknown to intensive care unit (ICU) for condition of interest (test code = 32907-8) Whether patient resides in a Unknown congregate care setting (test code = 83755-2) status (test code = Unknown 00941-8) Date and time of symptom onset Unknown (test code = 98187-8) MARISELA TOBAR [id number] 21:59:31 Test Item Value Reference Range Interpretation Comments TROPONIN I (test code = 0.005 ng/mL <=0.034 [id number]) KYLE (test code = KYLE) Reference (Normal) [...] biotin. Lab Interpretation Normal (test code = 44777-0) [id number] 21:56:09 Test Item Value Reference Range Interpretation Comments NT-proBNP (test code = 116 pg/mL <=125 [id number]) KYLE (test code = KYLE) Biotin has been reported to cause a negative bias, interpret results relative to patient's use of biotin. Lab Interpretation (test Normal code = 89635-1) [facility] ([id number][facility]2022-03-17 21:54:53 Test Item Value Reference Range Interpretation Comments NA (test code = 138 mmol/L 135-145 1065510734) K (test code = 4.5 mmol/L 3.5-5.0 4590764233) CL (test code = 92 mmol/L 98-108 L 4409644867) CO2 TOTAL (test code = 39 mmol/L 23-31 H 3494564055) AGAP (test code = 7 2-16 2947707100) BUN (test code = 11 mg/dL 7-23 3897994523) GLUCOSE (test code = 116 mg/dL 70-110 H 4893982510) CREATININE (test code = 0.40 mg/dL 0.50-1.04 L 3666791545) TOTAL BILI (test code = 0.7 mg/dL 0.1-1.2 1446396764) CALCIUM (test code = 9.6 mg/dL 8.6-10.6 3875403811) T PROTEIN (test code = 7.8 g/dL 6.3-8.2 2799688713) ALBUMIN (test code = 4.2 g/dL 3.5-5.0 0074369246) ALK PHOS (test code = 90 U/L 34-122 3352095468) ALTv (test code = 11 U/L 5-35 1742-6) AST(SGOT) (test code = 28 U/L 13-40 7529977456) eGFR (test code = 161.7 mL/min/1.73m2 7277209201) KYLE (test code = KYLE) Association of [...] tests). Lab Interpretation Abnormal (test code = 06788-3) [facility] WITH [id number] 21:36:11 Test Item Value Reference Range Interpretation Comments WBC (test code = 8.08 See_Comment [Automated 6591-2) message] The sy stem which generated this result transmitted reference range : 4.30 - 11.10 10*3/?L. The reference range was not used to interpret this result as normal/abnormal . RBC (test code = 3.77 See_Comment L [Automated 414-8) message] The sy stem which generated this [...] RDW-SD (test code = 42.0 fL 39.0-49.9 23416-6) RDW-CV (test code = 12.7 % 12.0-15.5 788-0) PLT (test code = 283 See_Comment [Automated 777-3) message] The sy stem which generated this result transmitted reference range : 166 - 358 10*3/ ?L. The reference r arnulfo was not used to interpret this result as normal/abnormal . MPV (test code = 9.6 fL 9.5-12.9 06380-1) NRBC/100 WBC (test 0.0 See_Comment [Automat ed code = 6239654820) message] The system which generated this result transmitted reference range : 0.0 - 10.0 /100 WBCs. The refer ence range was not u sed to interpret th is result as normal/abnormal . NRBC x10^3 (test code See_Comment [Auto mated = 9683833217) message] The s ystem which generated this result transmitted reference range : 10*3/?L. The reference range was not used to interpret this result as normal/abnormal . GRAN MAT (NEUT) % 72.1 % (test code = 770-8) IMM GRAN % (test code 0.40 % = 6397652981) LYMPH % (test code = 18.7 % 736-9) MONO % (test code = 5.1 % 5905-5) EOS % (test code = 3.5 % 713-8) BASO % (test code = 0.2 % 706-2) GRAN MAT x10^3(ANC) 5.83 10*3/uL 1.88-7.09 (test code = 8399934032) IMM GRAN x10^3 (test 0.03 10*3/uL 0.00-0.06 code = 4387968532) LYMPH x10^3 (test code 1.51 10*3/uL 1.32-3.29 = 731-0) MONO x10^3 (test code 0.41 10*3/uL 0.33-0.92 = 742-7) EOS x10^3 (test code = 0.28 10*3/uL 0.03-0.39 711-2) BASO x10^3 (test code 0.01-0.07 = 704-7) Lab Interpretation Abnormal (test code = 75350-2) [facility] [id number] 21:28:06 Test Item Value Reference Interpretation Comments Range TROPONIN I (test 0.004 ng/mL See_Comment [Automated code = 0745265282) message] The system which generated this result [...] biotin. Lab Interpretation Normal (test code = 61465-4) [facility] [id number] 21:24:45 Test Item Value Reference Range Interpretation Comments NT-proBNP (test code 79 pg/mL See_Comment [Autom ated = 1218869962) message] The system which generated this result transmitted reference range : <=125. The reference range was not used to interpret this result as normal/abnormal . KYLE (test code = KYLE) Biotin has been reported to cause a negative bias, interpret results relative to patient's use of biotin. Lab Interpretation Normal (test code = 33195-3) [facility] ([id number])2022-03-01 21:16:23 Test Item Value Reference Range Interpretation Comments NA (test code = 136 mmol/L 135-145 3628908433) K (test code = 4.1 mmol/L 3.5-5.0 8332905432) CL (test code = 94 mmol/L 98-108 L 1476732719) CO2 TOTAL (test code = 40 mmol/L 23-31 H 2955130484) AGAP (test code = 2-16 4418412991) BUN (test code = 15 mg/dL 7-23 2745361829) GLUCOSE (test code = 98 mg/dL 70-110 2799602914) CREATININE (test code = 0.50 mg/dL 0.50-1.04 3899835355) TOTAL BILI (test code = 0.4 mg/dL 0.1-1.2 9796441293) CALCIUM (test code = 9.7 mg/dL 8.6-10.6 0144316163) T PROTEIN (test code = 7.6 g/dL 6.3-8.2 5174882426) ALBUMIN (test code = 4.3 g/dL 3.5-5.0 5677498760) ALK PHOS (test code = 91 U/L 34-122 0857668711) ALTv (test code = 12 U/L 5-35 1742-6) AST(SGOT) (test code = 21 U/L 13-40 7175239922) eGFR (test code = mL/min/1.73m2 5393378603) KYLE (test code = KYLE) Association of [...] tests). Lab Interpretation Abnormal (test code = 17051-6) [facility] WITH [id number] 21:08:04 Test Item Value Reference Range Interpretation Comments WBC (test code = See_Comment [Automated 7590-2) message] The sy stem which generated this result transmitted reference range : 4.30 - 11.10 10*3/?L. The reference range was not used to interpret this result as normal/abnormal . RBC (test code = See_Comment L [Automated 289-8) message] The sy stem which generated this [...] RDW-SD (test code = 44.2 fL 39.0-49.9 93573-5) RDW-CV (test code = 13.2 % 12.0-15.5 788-0) PLT (test code = See_Comment [Automated 777-3) message] The sy stem which generated this result transmitted reference range : 166 - 358 10*3/ ?L. The reference r arnulfo was not used to interpret this result as normal/abnormal . MPV (test code = 9.9 fL 9.5-12.9 75882-0) NRBC/100 WBC (test See_Comment [Automat ed code = 3608639188) message] The system which generated this result transmitted reference range : 0.0 - 10.0 /100 WBCs. The refer ence range was not u sed to interpret th is result as normal/abnormal . NRBC x10^3 (test code See_Comment [Auto mated = 5060242210) message] The s ystem which generated this result transmitted reference range : 10*3/?L. The reference range was not used to interpret this result as normal/abnormal . GRAN MAT (NEUT) % 63.0 % (test code = 770-8) IMM GRAN % (test code 0.20 % = 6371631170) LYMPH % (test code = 23.3 % 736-9) MONO % (test code = 7.6 % 5905-5) EOS % (test code = 5.4 % 713-8) BASO % (test code = 0.5 % 706-2) GRAN MAT x10^3(ANC) 5.23 10*3/uL 1.88-7.09 (test code = 6165194649) IMM GRAN x10^3 (test 0.00-0.06 code = 4121784194) LYMPH x10^3 (test code 1.93 10*3/uL 1.32-3.29 = 731-0) MONO x10^3 (test code 0.63 10*3/uL 0.33-0.92 = 742-7) EOS x10^3 (test code = 0.45 10*3/uL 0.03-0.39 H 711-2) BASO x10^3 (test code 0.04 10*3/uL 0.01-0.07 = 704-7) Lab Interpretation Abnormal (test code = 99410-0) [facility]/ pulse [id number] 17:46:53 Test Item Value Reference Range Interpretation [...] meters (test 40.00 m code = 7620) [facility] [id number] 17:46:53 Test Item Value Reference Range Interpretation [...] meters (test 40.00 m code = 7620) [facility] [id number] 17:46:53 Test Item Value Reference Range Interpretation [...] meters (test 40.00 m code = 7620) [facility] [id number] 17:46:53 Test Item Value Reference Range Interpretation [...] meters (test 40.00 m code = 7620) [facility] [id number] 16:23:50 Test Item Value Reference Range Interpretation [...] code 17.57 See_Comment [Auto mated message] = 5567) The system [employer] generated this result transmitted ref erence range: [...] [Aut omated message] = 5521) The system [employer] generated this result transmitted ref erence range: [...] See_Comment [Autom ated message] 5507) The system [employer] generated this result transmitted ref erence range: [...] ated message] code = 5528) The system [employer] generated this result transmitted ref erence range: [...] Predicted 26.3 % (test code = 5368) [facility] [id number] 16:23:50 Test Item Value Reference Range Interpretation [...] code 17.57 See_Comment [Auto mated message] = 2959) The system [employer] generated this result transmitted ref erence range: [...] code 85.31 See_Comment [Aut omated message] = 7008) The system [employer] generated this result transmitted ref erence range: [...] See_Comment [Autom ated message] 5507) The system [employer] generated this result transmitted ref erence range: [...] ated message] code = 5528) The system [employer] generated this result transmitted ref erence range: [...] Predicted 26.3 % (test code = 5368) [facility] [id number] 16:23:50 Test Item Value Reference Range Interpretation [...] [Auto mated message] = 5514) The system [employer] generated this result transmitted ref erence range: [...] [Aut omated message] = 5521) The system [employer] generated this result transmitted ref erence range: [...] See_Comment [Autom ated message] 5507) The system [employer] generated this result transmitted ref erence range: [...] ated message] code = 5528) The system [employer] generated this result transmitted ref erence range: [...] Predicted 26.3 % (test code = 5368) [facility] [id number] 16:23:50 Test Item Value Reference Range Interpretation [...] code 17.57 See_Comment [Auto mated message] = 9079) The system [employer] generated this result transmitted ref erence range: [...] code 85.31 See_Comment [Aut omated message] = 3255) The system [employer] generated this result transmitted ref erence range: [...] See_Comment [Autom ated message] 5507) The system [employer] generated this result transmitted ref erence range: [...] ated message] code = 5528) The system [employer] generated this result transmitted ref erence range: [...] Predicted 26.3 % (test code = 5368) [facility] [id number] 21:51:42 Test Item Value Reference Range Interpretation Comments LACTIC ACID (test code = 0.96 mmol/L 0.50-2.20 2807430806) Lab Interpretation (test code = Normal 88623-1) [facility] [id number] 19:01:12 Test Item Value Reference Interpretation Comments Range TROPONIN I (test 0.004 ng/mL See_Comment [Automated code = 1372416409) message] The system which generated this result [...] biotin. Lab Interpretation Normal (test code = 34950-3) [facility] [id number] 18:34:27 Test Item Value Reference Range Interpretation Comments NT-proBNP (test code 124 pg/mL See_Comment [Autom ated = 1277122598) message] The system which generated this result transmitted reference range : <=125. The reference range was not used to interpret this result as normal/abnormal . KYLE (test code = KYLE) Biotin has been reported to cause a negative bias, interpret results relative to patient's use of biotin. Lab Interpretation Normal (test code = 11444-9) [facility] [id number] 18:30:09 Test Item Value Reference Range Interpretation Comments APTT Patient (test See_Comment [Automat ed code = 3173-2) message] The system which generated this result transmitted reference range : 23 - 38 Seconds . The reference range was not used to interpr et this result as normal/abnormal . KYLE (test code = KYLE) The [facility] patient population mean normal value for aPTT is 30 seconds. Lab Interpretation Normal (test code = 56529-6) [facility] / [id number] 18:28:07 Test Item Value Reference Range Interpretation [...] tions. Lab Interpretation (test Normal code = 36592-9) [facility] ([id number])2021-12-27 18:26:10 Test Item Value Reference Range Interpretation Comments NA (test code = 138 mmol/L 135-145 0593676420) K (test code = 4.7 mmol/L 3.5-5.0 4591296556) CL (test code = 93 mmol/L 98-108 L 9689571042) CO2 TOTAL (test code = 36 mmol/L 23-31 H 8004832064) AGAP (test code = 2-16 0403193593) BUN (test code = 7 mg/dL 7-23 3035720624) GLUCOSE (test code = 130 mg/dL 70-110 H 2153128476) CREATININE (test code = 0.43 mg/dL 0.50-1.04 L 0805999515) TOTAL BILI (test code = 0.6 mg/dL 0.1-1.1 1595788769) CALCIUM (test code = 9.6 mg/dL 8.6-10.6 8474057232) T PROTEIN (test code = 7.0 g/dL 6.3-8.2 8445610250) ALBUMIN (test code = 4.0 g/dL 3.5-5.0 6489828913) ALK PHOS (test code = 139 U/L 34-122 H 6022057539) ALTv (test code = 15 U/L 5-35 2-6) AST(SGOT) (test code = 23 U/L 13-40 2101242681) eGFR (test code = mL/min/1.73m2 8475575648) KYLE (test code = KYLE) Association of [...] tests). Lab Interpretation Abnormal (test code = 60429-3) [facility] WITH [id number] 17:52:25 Test Item Value Reference Range Interpretation [...] RDW-SD (test code = 40.5 fL 39.0-49.9 32887-0) RDW-CV (test code = 12.2 % 12.0-15.5 788-0) PLT (test code = See_Comment H [Automated 777-3) message] The sy stem which generated this result transmitted reference range : 166 - 358 10*3/ ?L. The reference r arnulfo was not used to interpret this result as normal/abnormal . MPV (test code = 9.3 fL 9.5-12.9 L 49725-2) NRBC/100 WBC (test See_Comment [Automat ed code = 6133439965) message] The system which generated this result transmitted reference range : 0.0 - 10.0 /100 WBCs. The refer ence range was not u sed to interpret th is result as normal/abnormal . NRBC x10^3 (test code See_Comment [Auto mated = 7823816802) message] The s ystem which generated this result transmitted reference range : 10*3/?L. The reference range was not used to interpret this result as normal/abnormal . GRAN MAT (NEUT) % 75.2 % (test code = 770-8) IMM GRAN % (test code 0.40 % = 0027034076) LYMPH % (test code = 13.5 % 736-9) MONO % (test code = 7.4 % 5905-5) EOS % (test code = 3.2 % 713-8) BASO % (test code = 0.3 % 706-2) GRAN MAT x10^3(ANC) 7.56 10*3/uL 1.88-7.09 H (test code = 3712501536) IMM GRAN x10^3 (test 0.04 10*3/uL 0.00-0.06 code = 8563249138) LYMPH x10^3 (test code 1.36 10*3/uL 1.32-3.29 = 731-0) MONO x10^3 (test code 0.74 10*3/uL 0.33-0.92 = 742-7) EOS x10^3 (test code = 0.32 10*3/uL 0.03-0.39 711-2) BASO x10^3 (test code 0.03 10*3/uL 0.01-0.07 = 704-7) Lab Interpretation Abnormal (test code = 76329-8) [facility]2021-[facility]-04 17:06:26 Test Item Value Reference Range Interpretation Comments Height (test code = in 5642539779) Weight (test code = lbs 7976909367) Systolic BP (test code = mmHg 1804037378) Diastolic BP (test code mmHg = 2121815706) Heart Rate (test code = bpm 4685015640) BSA (test code = 1.58 m2 8269326270) LVOT diameter (test code 1.90 cm = 3890149342) LVOT area (test code = 2.80 cm2 7426849506) Ao root diam (test code 3.20 cm = 8429131683) Aortic root (test code = 3.2 cm 5283877381) Ao root annulus (test 3.2 cm code = 0151363358) LA size (test code = 3.7 cm 7804540837) ACS (test code = 2.16 cm 3840088419) PV PEAK VELOCITY (test 71.3 cm/s code = 8065956242) PV peak gradient (test mmHg code = 9861044234) MV E-F slope (test code 63.20 cm/s = 3650573037) MV Peak E Lester (test code 62.1 cm/s = 0736334369) MV Peak A Lester (test code 115.9 cm/s = 6016178013) E/A ratio (test code = ratio 7125028519) MV valve area p 1/2 11.10 cm2 method (test code = 6038833741) MV dec slope (test code 910.40 cm/s2 = 4191074875) MV P1/2t max lester (test 61.60 cm/s code = 4849687406) LVOT stroke volume (test 66.20 cm3 code = 0324159375) LVOT peak lester (test code 140.2 cm/s = 2346030736) LVOT mn grad (test code mmHg = 6295428639) AV LVOT peak gradient mmHg (test code = 6947897404) LVOT peak VTI (test code 23.5 cm = 8657169347) LV V1 mean (test code = 95.60 cm/s 2779543586) Aortic valve mean 132.1 cm/s velocity (test code = 8293525538) Ao peak lester (test code = 198.2 cm/s 1576672764) Ao VTI (test code = 33.5 cm 3128606024) AV area by cont VTI 2.0 cm2 (test code = 2322838405) AV area peak lester (test 2.0 cm2 code = 1045458430) Ao max PG (test code = 15.70 mm[Hg] 7855363631) AV peak gradient (test mmHg code = 5649493386) AV valve area (test code 1.98 cm2 = 6045329252) AV mean gradient (test mmHg code = 2343155914) LVIDD (test code = 3.70 cm 1507967426) Left Ventricular End 59.7 mL Diastolic Volume by Teichholz Method (test code = 4989652) IVS (test code = 0.87 cm 1689903684) Interventricular Septum 0.87 cm Diastolic Thickness by 2D (test code = 7065498) LVPWD (test code = 0.96 cm 0840371848) PW (test code = 0.96 cm 0.6-1.2 7770120215) EF(Teich) (test code = 68.70 % 9616291575) LVIDS (test code = 2.33 cm 5941556127) Left Ventricular End 18.7 mL Systolic Volume by Teichholz Method (test code = 8689434) FS (test code = 38 % 9216477269) EF - 2D (test code = 68.70 % 29623592) TR Peak Lester (test code = 233.5 cm/s 8069707127) Triscuspid Valve mmHg Regurgitation Peak Gradient (test code = 5985849332) Radiology Study observation (narrative) (test code = 07340-5) KYLE (test code = KYLE) ?Left?Ventricle: Left [...] mL of Lumason ultrasound enhancing agent used. [facility]ERR[facility]IN [id number] 08:39:42 Test Item Value Reference Range Interpretation Comments FERRITIN (test code = 180.0 ng/mL 11.0-264.0 7821506368) KYLE (test code = KYLE) Biotin has been reported to cause a negative bias, interpret results relative to patient's use of biotin. Lab Interpretation (test Normal code = 49501-3) [facility]IRON [id number] 08:34:01 Test Item Value Reference Range Interpretation Comments IRON (test code = 25 ug/dL 50-160 L Slight hem olysis 6724542036) TIBC (test code = 227 ug/dL 250-410 L 5000489731) % FE SAT (test code = 11 % 20-50 L 0284655405) Lab Interpretation (test Abnormal code = 67300-5) [facility] BrookLIPID PANEL (20816)(TOTAL CHOLESTEROL, TRIGLYCERIDES, HDL)2021-12-04 08:04:39 Test Item Value Reference Range Interpretation Comments CHOL (test code = 179 mg/dL 120-200 5274348424) HDL (test code = 74 mg/dL See_Comment [Automated message] 8169190039) The system [employer] generated this result transmit blayne reference range : >=50. The refer ence range was not u sed to interpret th is result as normal/abnormal . HDLC RATIO (test code = See_Comment [Au tomated message] 9821785715) The system [employer] generated this result transmit blayne reference range : <=4.5. The refe rence range was not u sed to interpret th is result as normal/abnormal . TRIG (test code = 159 mg/dL 30-170 6965130107) LDL CHOL (test code = 73 mg/dL See_Comment [Auto mated message] 71959-4) The system [employer] generated this result transmit blayne reference range : <=160. The refe rence range was not u sed to interpret th is result as normal/abnormal . VLDL (test code = 32 mg/dL 5-60 0940825773) Lab Interpretation (test Normal code = 38308-7) [facility]cosylated Hemoglobin (A1C)2021-12-04 01:36:16 Test Item Value Reference Range Interpretation Comments HGB A1C (test code = 5.2 % 4.0-5.7 4548-4) KYLE (test code = KYLE) Reference RangesNormal: <5.7%Prediabetes: 5.7 - 6.4%Diabetes: > 6.5% Lab Interpretation (test Normal code = 59876-6) [facility] Brook[facility]YROID STIMULATING [id number] 23:05:38 Test Item Value Reference Range Interpretation Comments TSH (test code = See_Comment [Automated message] 9309622982) The system [employer] generated this result transmitted ref erence range: 0.45 - 4 .70 mIU/L. The refe rence range was not u sed to interpret this result as normal/abnor mal. Lab Interpretation (test Normal code = 18379-1) [facility] [id number] 22:47:16 Test Item Value Reference Interpretation Comments Range TROPONIN I (test 0.003 ng/mL See_Comment [Automated code = 8142733194) message] The system which generated this result [...] biotin. Lab Interpretation Normal (test code = 75899-7) [facility] [id number] 22:44:16 Test Item Value Reference Range Interpretation Comments NT-proBNP (test code 212 pg/mL See_Comment H [Autom ated = 2244242887) message] The system which generated this result transmitted reference range : <=125. The reference range was not used to interpret this result as normal/abnormal . KYLE (test code = KYLE) Biotin has been reported to cause a negative bias, interpret results relative to patient's use of biotin. Lab Interpretation Abnormal (test code = 04472-0) [facility] THRM[facility]AS [id number] 22:42:20 Test Item Value Reference Range Interpretation Comments APTT Patient (test See_Comment [Automat ed code = 3173-2) message] The system which generated this result transmitted reference range : 23 - 38 Seconds . The reference range was not used to interpr et this result as normal/abnormal . KYLE (test code = KYLE) The [facility] patient population mean normal value for aPTT is 30 seconds. Lab Interpretation Normal (test code = 10459-6) [facility] BrookPROTHROMBIN TIME / [id number] 22:39:59 Test Item Value Reference Range Interpretation [...] tions. Lab Interpretation (test Normal code = 12782-2) [facility] BrookMAGNESIUM2022-10-29 22:34:58 Test Item Value Reference Range Interpretation Comments MAGNESIUM (test code = 6930160507) 1.5 mg/dL 1.7-2.4 L Lab Interpretation (test code = Abnormal 15029-4) [facility]COMP[facility] METABOLIC PANEL (91449)2021-12-03 22:34:38 Test Item Value Reference Range Interpretation Comments NA (test code = 137 mmol/L 135-145 4619849557) K (test code = 4.0 mmol/L 3.5-5.0 9582914129) CL (test code = 93 mmol/L 98-108 L 5529915857) CO2 TOTAL (test code = 39 mmol/L 23-31 H 7952098505) AGAP (test code = 2-16 2089669289) BUN (test code = 16 mg/dL 7-23 4595618526) GLUCOSE (test code = 127 mg/dL 70-110 H 3872405666) CREATININE (test code = 0.57 mg/dL 0.50-1.04 0722957298) TOTAL BILI (test code = 0.5 mg/dL 0.1-1.4 7691445034) CALCIUM (test code = 9.2 mg/dL 8.6-10.6 7142968791) T PROTEIN (test code = 6.5 g/dL 6.3-8.2 9431442083) ALBUMIN (test code = 3.6 g/dL 3.5-5.0 5645602685) ALK PHOS (test code = 62 U/L 34-122 7007980504) ALTv (test code = 13 U/L 5-35 1742-6) AST(SGOT) (test code = 22 U/L 13-40 7063800331) eGFR (test code = mL/min/1.73m2 2008145000) KYLE (test code = KYLE) Association of [...] tests). Lab Interpretation Abnormal (test code = 72980-8) [facility] BrookLIPASE2022-10-29 22:34:38 Test Item Value Reference Range Interpretation Comments LIPASE (test code = 6409598562) 40 U/L 0-220 Lab Interpretation (test code = Normal 67860-6) [facility] BrookLactic Acid Whole [id number] 22:24:41 Test Item Value Reference Range Interpretation Comments LACTIC ACID (test code = 1.21 mmol/L 0.50-2.20 9048394701) Lab Interpretation (test code = Normal 90333-5) [facility] BrookCB WITH [id number] 22:22:55 Test Item Value Reference Range Interpretation [...] RDW-SD (test code = 41.3 fL 39.0-49.9 60359-9) RDW-CV (test code = 12.4 % 12.0-15.5 788-0) PLT (test code = See_Comment H [Automated 777-3) message] The system which generated this result transmit blayne reference range : 166 - 358 10*3/ ?L. The reference range was not u sed to interpret th is result as normal/abnormal . MPV (test code = 9.0 fL 9.5-12.9 L 92596-1) NRBC/100 WBC (test See_Comment [Automat ed code = 6730309777) message] The system which generated this result transmit blayne reference range : 0.0 - 10.0 /100 WBCs. The reference range was not used to interpret this result as normal/abnormal . NRBC x10^3 (test code See_Comment [Auto mated = 0132432580) message] The system which generated this result transmit blayne reference range : 10*3/?L. The reference range was not used to interpret this result as normal/abnormal . GRAN MAT (NEUT) % 76.9 % (test code = 770-8) IMM GRAN % (test code 0.80 % = 4005412461) LYMPH % (test code = 11.2 % 736-9) MONO % (test code = 9.7 % 5905-5) EOS % (test code = 1.3 % 713-8) BASO % (test code = 0.1 % 706-2) GRAN MAT x10^3(ANC) 10.40 10*3/uL 1.88-7.09 H (test code = 6011174737) IMM GRAN x10^3 (test 0.11 10*3/uL 0.00-0.06 H code = 1345138559) LYMPH x10^3 (test code 1.52 10*3/uL 1.32-3.29 = 731-0) MONO x10^3 (test code 1.31 10*3/uL 0.33-0.92 H = 742-7) EOS x10^3 (test code = 0.18 10*3/uL 0.03-0.39 711-2) BASO x10^3 (test code 0.01-0.07 = 704-7) Lab Interpretation Abnormal (test code = 25527-8) [facility] METABOLIC PANEL (NA, K, CL, CO2, GLUCOSE, BUN, CREATININE, CA)2021-11-12 18:25:56 Test Item Value Reference Range Interpretation Comments NA (test code = 140 mmol/L 135-145 0288030622) K (test code = 4.0 mmol/L 3.5-5 8247725231) CL (test code = 93 mmol/L 98-108 L 0421681012) CO2 TOTAL (test code = 38 mmol/L 23-31 H 0171339742) AGAP (test code = 2-16 8307230615) BUN (test code = 14 mg/dL 7-23 2855231886) GLUCOSE (test code = 105 mg/dL 70-110 9959682608) CREATININE (test code = 0.51 mg/dL 0.5-1.04 5178907472) CALCIUM (test code = 9.7 mg/dL 8.6-10.6 2926699997) eGFR (test code = mL/min/1.73m2 3544808687) KYLE (test code = KYLE) Association of [...] tests). Lab Interpretation Abnormal (test code = 81499-8) [facility] WITH [id number] 18:09:35 Test Item Value Reference Range Interpretation [...] RDW-SD (test code = 42.8 fL 39-49.9 57304-3) RDW-CV (test code = 12.2 % 12-15.5 788-0) PLT (test code = See_Comment [Automated 777-3) message] The sy stem which generated this result transmitted reference range : 166 - 358 10*3/ ?L. The reference r arnulfo was not used to interpret this result as normal/abnormal . MPV (test code = 10.1 fL 9.5-12.9 89921-6) NRBC/100 WBC (test See_Comment [Automat ed code = 8041032101) message] The system which generated this result transmitted reference range : 0.0 - 10.0 /100 WBCs. The refer ence range was not u sed to interpret th is result as normal/abnormal . NRBC x10^3 (test code See_Comment [Auto mated = 9238364252) message] The s ystem which generated this result transmitted reference range : 10*3/?L. The reference range was not used to interpret this result as normal/abnormal . GRAN MAT (NEUT) % 69.9 % (test code = 770-8) IMM GRAN % (test code 0.30 % = 2136020756) LYMPH % (test code = 18.2 % 736-9) MONO % (test code = 6.9 % 5905-5) EOS % (test code = 4.2 % 713-8) BASO % (test code = 0.5 % 706-2) GRAN MAT x10^3(ANC) 4.04 10*3/uL 1.88-7.09 (test code = 0433629035) IMM GRAN x10^3 (test 0-0.06 code = 5976436923) LYMPH x10^3 (test code 1.05 10*3/uL 1.32-3.29 L = 731-0) MONO x10^3 (test code 0.40 10*3/uL 0.33-0.92 = 742-7) EOS x10^3 (test code = 0.24 10*3/uL 0.03-0.39 711-2) BASO x10^3 (test code 0.03 10*3/uL 0.01-0.07 = 704-7) Lab Interpretation Abnormal (test code = 39255-1) [id number]47 Test Item Value Reference Interpretation Comments Range TROPONIN I (test 0.004 ng/mL See_Comment [Automated code = 7304248649) message] The system which generated this result [...] biotin. Lab Interpretation Normal (test code = 68436-3) [facility] [id number] 18:36:10 Test Item Value Reference Range Interpretation Comments NT-proBNP (test code 236 pg/mL See_Comment H [Autom ated = 7526985783) message] The system which generated this result transmitted reference range : <=125. The reference range was not used to interpret this result as normal/abnormal . KYLE (test code = KYLE) Biotin has been reported to cause a negative bias, interpret results relative to patient's use of biotin. Lab Interpretation Abnormal (test code = 02312-1) [facility] METABOLIC PANEL (NA, K, CL, CO2, GLUCOSE, BUN, CREATININE, CA)2021-09-14 18:26:46 Test Item Value Reference Range Interpretation Comments NA (test code = 137 mmol/L 135-145 5731183240) K (test code = 4.0 mmol/L 3.5-5 7731343475) CL (test code = 92 mmol/L 98-108 L 3139808490) CO2 TOTAL (test code = 38 mmol/L 23-31 H 3355989678) AGAP (test code = 2-16 6116938836) BUN (test code = 10 mg/dL 7-23 0093101290) GLUCOSE (test code = 110 mg/dL 70-110 8446542850) CREATININE (test code = 0.47 mg/dL 0.5-1.04 L 8332004948) CALCIUM (test code = 9.4 mg/dL 8.6-10.6 4632836551) eGFR (test code = mL/min/1.73m2 0402728257) KYLE (test code = KYLE) Association of [...] tests). Lab Interpretation Abnormal (test code = 13730-1) [facility] WITH [id number] 18:23:24 Test Item Value Reference Range Interpretation [...] RDW-SD (test code = 44.6 fL 39-49.9 86825-9) RDW-CV (test code = 12.9 % 12-15.5 788-0) PLT (test code = See_Comment [Automated 777-3) message] The sy stem which generated this result transmitted reference range : 166 - 358 10*3/ ?L. The reference r arnulfo was not used to interpret this result as normal/abnormal . MPV (test code = 9.6 fL 9.5-12.9 48564-3) NRBC/100 WBC (test See_Comment [Automat ed code = 7714549641) message] The system which generated this result transmitted reference range : 0.0 - 10.0 /100 WBCs. The refer ence range was not u sed to interpret th is result as normal/abnormal . NRBC x10^3 (test code See_Comment [Auto mated = 5848719391) message] The s ystem which generated this result transmitted reference range : 10*3/?L. The reference range was not used to interpret this result as normal/abnormal . GRAN MAT (NEUT) % 74.6 % (test code = 770-8) IMM GRAN % (test code 0.50 % = 4357106220) LYMPH % (test code = 14.8 % 736-9) MONO % (test code = 7.8 % 5905-5) EOS % (test code = 2.1 % 713-8) BASO % (test code = 0.2 % 706-2) GRAN MAT x10^3(ANC) 9.57 10*3/uL 1.88-7.09 H (test code = 2554777015) IMM GRAN x10^3 (test 0.06 10*3/uL 0-0.06 code = 6517381606) LYMPH x10^3 (test code 1.90 10*3/uL 1.32-3.29 = 731-0) MONO x10^3 (test code 1.00 10*3/uL 0.33-0.92 H = 742-7) EOS x10^3 (test code = 0.27 10*3/uL 0.03-0.39 711-2) BASO x10^3 (test code 0.01-0.07 = 704-7) Lab Interpretation Abnormal (test code = 57675-2) [facility] Metabolic Panel (NA, K, CL, CO2, GLUCOSE, BUN, CREATININE, CA)2021-09-03 10:31:24 Test Item Value Reference Range Interpretation Comments NA (test code = 140 mmol/L 135-145 5576523371) K (test code = 4.3 mmol/L 3.5-5 3212514215) CL (test code = 97 mmol/L 98-108 L 8536240348) CO2 TOTAL (test code = 38 mmol/L 23-31 H 3947728456) AGAP (test code = 2-16 3098465102) BUN (test code = 16 mg/dL 7-23 6083902965) GLUCOSE (test code = 102 mg/dL 70-110 3764908989) CREATININE (test code = 0.53 mg/dL 0.5-1.04 2371073152) CALCIUM (test code = 9.1 mg/dL 8.6-10.6 6021293917) eGFR (test code = mL/min/1.73m2 6450370042) KYLE (test code = KYLE) Association of [...] tests). Lab Interpretation Abnormal (test code = 87450-7) [facility] (ALB,T.PRO,BILI T,BU/BC,ALT,AST,ALK PHOS)2021-09-03 10:31:24 Test Item Value Reference Range Interpretation Comments TOTAL BILI (test code = 9689328087) 0.2 mg/dL 0.1-1.1 BILI UNCON (test code = 5951538164) 0.0 mg/dL 0.1-1.1 L BILI CONJ (test code = 8232969523) 0.0 mg/dL 0-0.3 T PROTEIN (test code = 1409400533) 7.0 g/dL 6.3-8.2 ALBUMIN (test code = 9055689126) 3.7 g/dL 3.5-5 ALK PHOS (test code = 1069980006) 74 U/L 34-122 ALTv (test code = 1742-6) 12 U/L 5-35 AST(SGOT) (test code = 7013007489) 23 U/L 13-40 Lab Interpretation (test code = Abnormal 81602-4) [facility] with Gxbgqrxcaist5282-69-31 10:30:23 Test Item Value Reference Range Interpretation [...] RDW-SD (test code = 42.2 fL 39-49.9 62050-1) RDW-CV (test code = 12.4 % 12-15.5 788-0) PLT (test code = See_Comment [Automated 777-3) message] The sy stem which generated this result transmitted reference range : 166 - 358 10*3/ ?L. The reference r arnulfo was not used to interpret this result as normal/abnormal . MPV (test code = 10.4 fL 9.5-12.9 35874-9) NRBC/100 WBC (test See_Comment [Automat ed code = 5253837237) message] The system which generated this result transmitted reference range : 0.0 - 10.0 /100 WBCs. The refer ence range was not u sed to interpret th is result as normal/abnormal . NRBC x10^3 (test code See_Comment [Auto mated = 4900071440) message] The s ystem which generated this result transmitted reference range : 10*3/?L. The reference range was not used to interpret this result as normal/abnormal . GRAN MAT (NEUT) % 61.7 % (test code = 770-8) IMM GRAN % (test code 0.30 % = 2819471749) LYMPH % (test code = 23.9 % 736-9) MONO % (test code = 14.1 % 5905-5) EOS % (test code = 0.0 % 713-8) BASO % (test code = 0.0 % 706-2) GRAN MAT x10^3(ANC) 2.46 10*3/uL 1.88-7.09 (test code = 9640405853) IMM GRAN x10^3 (test 0-0.06 code = 9770340765) LYMPH x10^3 (test code 0.95 10*3/uL 1.32-3.29 L = 731-0) MONO x10^3 (test code 0.56 10*3/uL 0.33-0.92 = 742-7) EOS x10^3 (test code = 0.03-0.39 L 711-2) BASO x10^3 (test code 0.01-0.07 = 704-7) Lab Interpretation Abnormal (test code = 34590-4) [facility] iymlxfx4572-32-91 12:13:00 Test Item Value Reference Range Interpretation Comments AFB culture No growth after Specimen isolate (test 6 weeks of InformationSpe cimen code = 543-9) incubation. Source: Biopsy Specimen Site: RUL BX KYLE (test code Received in = KYLE) RPMI solution [facility] nhczhwd2102-59-73 12:15:00 Test Item Value Reference Range Interpretation Comments Fungus culture No growth after Specimen isolate (test 4 [facility] InformationSpe [facility] = [facility]-1) incubation. Source: Biopsy Specimen Site: RUL BX KYLE (test code Received in = KYLE) RPMI [facility]/ [facility] tmxeotzz1184-18-74 14:05:12 Test Item Value Reference Range Interpretation [...] 6 minutes (test mmHg code = 7663) Awnda Dyspnea Scale at Rest (test code = [...] meters (test code = 40 m 7620) [facility], jtexdbdzo0998-21-40 12:47:12 Test Item Value Reference Range Interpretation [...] (test code = See_Comment [Auto mated message] 4212) The system [employer] generated this result transmitted ref erence range: 14.19 - 27.19 ml/(min*mmHg). The reference range was not used to interpr et this result as normal/abnormal . DLCO Predicted (test code = 5421) DLCO LLN (test code = 5422) DLCO % Pre of 14.3 % Predicted (test code = 5424) DLCOc Pre (test code = See_Comment [Aut omated message] 5430) The system [employer] generated this result transmitted ref erence range: 14.19 - 27.19 ml/(min*mmHg). The reference range was not used to interpr et this result as normal/abnormal . DLCOc Predicted (test code = 5428) DLCOc LLN (test code = 5429) DLCOc % Pre of 15.8 % Predicted (test code = 5431) DL/VA Pre (test code = See_Comment [Aut omated message] 5437) The system [employer] generated this result transmitted ref erence range: 3.20 - 5 .84 ml/(min*mmHg*L) . The reference range was not used to interpr et this result as normal/abnormal . DL/VA Predicted (test code = 5435) DL/VA LLN (test code = 5436) DL/VA % Pre of 29.5 % Predicted (test code = 5438) KCOc SB Pre (test code See_Comment [Aut omated message] = 5535) The system [employer] generated this result transmitted ref erence range: [...] Hb Pre (test code = g(Hb)/dL 5540) [facility] lfhcbjn1192-75-22 00:20:16 Test Item Value Reference Range Interpretation Comments Case number (test code = [id number]) Surgical pathology See link below for report (test code = PDF Lab Report 9393) Result status (test code This is Final Report = [id number]) for [id number] [facility] ztarinh2762-12-13 22:35:41 Test Item Value Reference Range Interpretation Comments Case number (test code = [id number]) Cytology See link below for (non-gynecological) PDF Lab Report report (test code = 1178) Result status (test code This is Final Report = [id number]) for [id number] [facility] jvgki2536-88-65 16:49:00 Test Item Value Reference Range Interpretation Comments AFB stain No acid fast Specimen (test code = bacilli (AFB) InformationSpe cimen 676-7) seen. Source: BiopsyS [facility] Site: RUL BX KYLE (test Received in code = KYLE) RPMI solution [facility] ysnwe3527-81-25 15:55:00 Test Item Value Reference Range Interpretation Comments Fungus smear No fungi Specimen (test code = observed. InformationSpec imen 1443) [facility] Site: RUL BX KYLE (test Received in code = KYLE) RPMI solution [facility] AgaxtzjiPFFC-ZlU-9 (COVID-19) RNA [Presence] in Respiratory specimen by CONNOR with probe fzxbdqazc5279-05-37 23:07:32 Test Item Value Reference Range Interpretation Comments SARS-CoV-2 (COVID-19) RNA Not detected [Presence] in Respiratory specimen by CONNOR with probe detection (test code = 65460-0) Whether patient is employed in a Unknown healthcare setting (test code = 82118-1) Whether the patient has symptoms Unknown related to condition of interest (test code = 81590-2) Whether the patient was Unknown hospitalized for condition of interest (test code = 68034-2) Whether the patient was admitted Unknown to intensive care unit (ICU) for condition of interest (test code = 64304-5) Whether patient resides in a Unknown congregate care setting (test code = 61416-6) status (test code = Unknown 91849-2) Date and time of symptom onset Unknown (test code = 05164-5) MARISELA YE goacjz7506-79-61 18:50:36 Test Item Value Reference Range Interpretation Comments Interpretation (test code = DQB1*02:CEXBV=DQB1 1945945) *02:01/02:531ZKCQ9 *03:BGCWT=DQB1*03: 02/07:276N Case number (test code = [id number]) HLA typing (test code = See link below for 7478) PDF Lab Report [place] [address] class 1 & 2 qflmsvou5366-87-32 16:54:32 Test Item Value Reference Range Interpretation Comments Case number (test code = [id number]) C1Q class 1 & 2 antibody See link below for (test code = 8485383) PDF Lab Report [facility] yqlh0531-32-51 00:26:00 Test Item Value Reference Range Interpretation Comments Misc test name CMVM2 to ARUP (test code = 6489785 2566) Misc test see comment Cytomegalovirus result (test Antibody, IgM A RUP test code = 1730) code 0854221 CM V Antibody IgM <8 .0 AU/mL [...] (HCT/P ). ======== ======== Te st performed by:[address] [address] KYLE (test code Previous comment = KYLE) was ?With reflex if positive?Release to patient (Note: If manual release option is?selected, result will auto release 10 days from?finalization .)->Immediate?Spe cimen only collected Sunday - before 1200.?Specimen cannot be collected the day before a holiday or on a?holiday. Call referral lab at [phone] if you have?questions., verified by HIS at 06:55 on 04/12/2021. [facility], lung volumes, MIPS/OVHH6677-22-54 19:11:27 Test Item Value Reference Range Interpretation [...] ated message] code = 5528) The system [employer] generated this result transmitted ref erence range: [...] Predicted 136.2 % (test code = 5459) [facility] fcqjhekv7516-47-23 18:27:27 Test Item Value Reference Range Interpretation [...] Predicted 21.5 % (test code = 5646) [facility] HospitalUrinalysis screen and microscopy, with reflex to culture 2021-04-12 15:52:00 Test Item Value Reference Range Interpretation Comments Specimen site Clean catch (test code = 9214492) Color, UA (test Yellow code = 5778-6) Appearance, UA Clear (test code = 5767-9) Specific gravity, 1.001-1.035 UA (test code = 5811-5) pH, UA (test code 5.0-8.5 = 5803-2) Protein, UA (test Negative Negative code = 55878-2) Glucose, UA (test Negative Negative code = 75762-8) Ketones, UA (test Negative Negative code = 2514-8) Bilirubin, UA Negative Negative (test code = 5770-3) Blood, UA (test Negative Negative code = 5794-3) Nitrite, UA (test Negative Negative code = 5802-4) Urobilinogen, UA <2.0 See_Comment [Automated (test code = message] The sy stem 26272-6) which generated this result transmitted reference range [...] code None seen See_Comment [Automat ed = 59400-7) message] The sy stem which generated this result transmitted reference range : 0 - 5 /HPF. The reference range was not used to interpret this result as normal/abnormal . Bacteria, UA (test None seen None seen code = 36406-5) Yeast, UA (test None seen code = 12990-5) Yeast with None seen pseudohyphae, UA (test code = 80867-5) KYLE (test code = Previous comment KYLE) was ?With reflex if positive?Release to patient (Note: If manual release option is?selected, result will auto release 10 days from?finalization .)->Immediate?Spe cimen only collected Sunday - before 1200.?Specimen cannot be collected the day before a holiday or on a?holiday. Call referral lab at [phone] if you have?questions., verified by HIS at 06:55 on 04/12/2021. [facility] kqhcbsx1151-36-77 15:24:00 Test Item Value Reference Range Interpretation Comments Urine culture SEE COMMENT Bacteriuria sc reen (test code = negative. 1869623) KYLE (test code = Previous comment KYLE) was ?With reflex if positive?Release to patient (Note: If manual release option is?selected, result will auto release 10 days from?finalization. )->Immediate?Speci men only collected Sunday - before 1200.?Specimen cannot be collected the day before a holiday or on a?holiday. Call referral lab at [phone] if you have?questions., verified by HIS at 06:55 on 04/12/2021. [facility] RNA [Presence] in Respiratory specimen by CONNOR with probe ifwpmdtck0623-60-40 11:26:03 Test Item Value Reference Range Interpretation Comments SARS-CoV-2 (COVID-19) RNA Not detected [Presence] in Respiratory specimen by CONNOR with probe detection (test code = 70210-0) Whether patient is employed in a Unknown healthcare setting (test code = 98016-6) Whether the patient has symptoms Unknown related to condition of interest (test code = 55588-0) Whether the patient was Unknown hospitalized for condition of interest (test code = 37884-3) Whether the patient was admitted Unknown to intensive care unit (ICU) for condition of interest (test code = 77626-0) Whether patient resides in a Unknown congregate care setting (test code = 08885-7) status (test code = Unknown 75208-4) Date and time of symptom onset Unknown (test code = 72636-3) [facility] METABOLIC PANEL (NA, K, CL, CO2, GLUCOSE, BUN, CREATININE, CA)2021-03-15 11:04:02 Test Item Value Reference Range Interpretation Comments NA (test code = 138 mmol/L 135-145 5205748653) K (test code = 3.6 mmol/L 3.5-5.0 7151471271) CL (test code = 99 mmol/L 98-108 0349161559) CO2 TOTAL (test code = 39 mmol/L 23-31 H 8160105220) AGAP (test code = <1 2-16 L 6296465876) BUN (test code = 17 mg/dL 7-23 4038766114) GLUCOSE (test code = 101 mg/dL 70-110 2198106901) CREATININE (test code = 0.45 mg/dL 0.50-1.04 L 8275188808) CALCIUM (test code = 8.6 mg/dL 8.6-10.6 3275600919) eGFR (test code = mL/min/1.73m2 0647530406) KYLE (test code = KYLE) Association of [...] tests). Lab Interpretation Abnormal (test code = 62281-9) [facility] 10:58:44 Test Item Value Reference Range Interpretation Comments MAGNESIUM (test code = 4820107386) 2.1 mg/dL 1.7-2.4 Lab Interpretation (test code = Normal 98107-9) [facility] WITH [id number] 10:08:55 Test Item Value Reference Range Interpretation Comments WBC (test code = See_Comment [Automated 8190-2) message] The sy stem which generated this result transmitted reference range : 4.30 - 11.10 10*3/?L. The reference range was not used to interpret this result as normal/abnormal . RBC (test code = See_Comment L [Automated 969-8) message] The sy stem which generated this [...] RDW-SD (test code = 43.6 fL 39.0-49.9 05051-7) RDW-CV (test code = 13.6 % 12.0-15.5 788-0) PLT (test code = See_Comment [Automated 777-3) message] The sy stem which generated this result transmitted reference range : 166 - 358 10*3/ ?L. The reference r arnulfo was not used to interpret this result as normal/abnormal . MPV (test code = 9.5 fL 9.5-12.9 64075-5) NRBC/100 WBC (test See_Comment [Automat ed code = 8406435804) message] The system which generated this result transmitted reference range : 0.0 - 10.0 /100 WBCs. The refer ence range was not u sed to interpret th is result as normal/abnormal . NRBC x10^3 (test code <0.01 See_Comment [Auto mated = 6926502557) message] The s ystem which generated this result transmitted reference range : 10*3/?L. The reference range was not used to interpret this result as normal/abnormal . GRAN MAT (NEUT) % 62.7 % (test code = 770-8) IMM GRAN % (test code 0.50 % = 4553697671) LYMPH % (test code = 27.9 % 736-9) MONO % (test code = 8.4 % 5905-5) EOS % (test code = 0.3 % 713-8) BASO % (test code = 0.2 % 706-2) GRAN MAT x10^3(ANC) 3.67 10*3/uL 1.88-7.09 (test code = 0813843035) IMM GRAN x10^3 (test 0.03 10*3/uL 0.00-0.06 code = 4705391756) LYMPH x10^3 (test code 1.63 10*3/uL 1.32-3.29 = 731-0) MONO x10^3 (test code 0.49 10*3/uL 0.33-0.92 = 742-7) EOS x10^3 (test code = <0.03 0.03-0.39 L 711-2) BASO x10^3 (test code <0.03 0.01-0.07 = 704-7) Lab Interpretation Abnormal (test code = 77787-8) [facility] 11:02:27 Test Item Value Reference Range Interpretation Comments MAGNESIUM (test code = 2517863022) 1.6 mg/dL 1.7-2.4 L Lab Interpretation (test code = Abnormal 92829-2) [facility] METABOLIC PANEL (NA, K, CL, CO2, GLUCOSE, BUN, CREATININE, CA)2021-03-14 11:02:22 Test Item Value Reference Range Interpretation Comments NA (test code = 136 mmol/L 135-145 6062083408) K (test code = 3.3 mmol/L 3.5-5.0 L 8139563033) CL (test code = 98 mmol/L 98-108 6700264120) CO2 TOTAL (test code = 37 mmol/L 23-31 H 7394871767) AGAP (test code = 2-16 L 0374882392) BUN (test code = 18 mg/dL 7-23 3277814160) GLUCOSE (test code = 100 mg/dL 70-110 9446048616) CREATININE (test code = 0.51 mg/dL 0.50-1.04 6553179221) CALCIUM (test code = 8.4 mg/dL 8.6-10.6 L 4384599260) eGFR (test code = mL/min/1.73m2 5371076189) KYLE (test code = KYLE) Association of [...] tests). Lab Interpretation Abnormal (test code = 98957-9) [facility] 11:02:02 Test Item Value Reference Range Interpretation Comments PHOSPHORUS (test code = 3940004321) 2.9 mg/dL 2.5-5.0 Lab Interpretation (test code = Normal 53281-4) [facility]OL[facility] (NA, K, CL, CO2, GLUCOSE, BUN, CREATININE, CA)2021-03-13 12:58:59 Test Item Value Reference Range Interpretation Comments NA (test code = 136 mmol/L 135-145 3577739528) K (test code = 3.3 mmol/L 3.5-5.0 L 5948629670) CL (test code = 99 mmol/L 98-108 3467933591) CO2 TOTAL (test code = 37 mmol/L 23-31 H 0087982241) AGAP (test code = <1 2-16 L 1998069707) BUN (test code = 23 mg/dL 7-23 8502523272) GLUCOSE (test code = 84 mg/dL 70-110 7491727974) CREATININE (test code = 0.53 mg/dL 0.50-1.04 4055920713) CALCIUM (test code = 8.8 mg/dL 8.6-10.6 4446982499) eGFR (test code = mL/min/1.73m2 8160923357) KYLE (test code = KYLE) Association of [...] tests). Lab Interpretation Abnormal (test code = 55114-2) [facility] WITH [id number] 12:42:20 Test Item Value Reference Range Interpretation Comments WBC (test code = See_Comment [Automated 7596-2) message] The sy stem which generated this result transmitted reference range : 4.30 - 11.10 10*3/?L. The reference range was not used to interpret this result as normal/abnormal . RBC (test code = See_Comment L [Automated 939-1) message] The sy stem which generated this [...] RDW-SD (test code = 45.0 fL 39.0-49.9 65965-9) RDW-CV (test code = 13.8 % 12.0-15.5 788-0) PLT (test code = See_Comment [Automated 777-3) message] The sy stem which generated this result transmitted reference range : 166 - 358 10*3/ ?L. The reference r arnulfo was not used to interpret this result as normal/abnormal . MPV (test code = 9.9 fL 9.5-12.9 25253-8) NRBC/100 WBC (test See_Comment [Automat ed code = 8367174757) message] The system which generated this result transmitted reference range : 0.0 - 10.0 /100 WBCs. The refer ence range was not u sed to interpret th is result as normal/abnormal . NRBC x10^3 (test code <0.01 See_Comment [Auto mated = 2712239255) message] The s ystem which generated this result transmitted reference range : 10*3/?L. The reference range was not used to interpret this result as normal/abnormal . GRAN MAT (NEUT) % 67.4 % (test code = 770-8) IMM GRAN % (test code 0.40 % = 0870280142) LYMPH % (test code = 23.3 % 736-9) MONO % (test code = 8.7 % 5905-5) EOS % (test code = 0.1 % 713-8) BASO % (test code = 0.1 % 706-2) GRAN MAT x10^3(ANC) 4.73 10*3/uL 1.88-7.09 (test code = 3950177047) IMM GRAN x10^3 (test 0.03 10*3/uL 0.00-0.06 code = 8759836466) LYMPH x10^3 (test code 1.64 10*3/uL 1.32-3.29 = 731-0) MONO x10^3 (test code 0.61 10*3/uL 0.33-0.92 = 742-7) EOS x10^3 (test code = <0.03 0.03-0.39 L 711-2) BASO x10^3 (test code <0.03 0.01-0.07 = 704-7) Lab Interpretation Abnormal (test code = 46820-7) [facility] [id number] 11:43:29 Test Item Value Reference Range Interpretation Comments MAGNESIUM (test code = 5100793905) 1.7 mg/dL 1.7-2.4 Lab Interpretation (test code = Normal 92979-5) [facility] Metabolic Panel (NA, K, CL, CO2, GLUCOSE, BUN, CREATININE, CA)2021-03-11 11:43:09 Test Item Value Reference Range Interpretation Comments NA (test code = 136 mmol/L 135-145 5483900842) K (test code = 4.5 mmol/L 3.5-5.0 9694116554) CL (test code = 95 mmol/L 98-108 L 1711757222) CO2 TOTAL (test code = 40 mmol/L 23-31 H 1026281549) AGAP (test code = 2-16 L 6080308466) BUN (test code = 20 mg/dL 7-23 5118353566) GLUCOSE (test code = 150 mg/dL 70-110 H 8813560468) CREATININE (test code = 0.40 mg/dL 0.50-1.04 L 1556209243) CALCIUM (test code = 8.8 mg/dL 8.6-10.6 2579304239) eGFR (test code = mL/min/1.73m2 0939587394) KYLE (test code = KYLE) Association of [...] tests). Lab Interpretation Abnormal (test code = 83351-2) [facility] with [id number] 11:27:44 Test Item Value Reference Range Interpretation Comments WBC (test code = See_Comment [Automated 6490-2) message] The sy stem which generated this result transmitted reference range : 4.30 - 11.10 10*3/?L. The reference range was not used to interpret this result as normal/abnormal . RBC (test code = See_Comment L [Automated 779-8) message] The sy stem which generated this [...] RDW-SD (test code = 44.7 fL 39.0-49.9 89465-0) RDW-CV (test code = 13.5 % 12.0-15.5 788-0) PLT (test code = See_Comment [Automated 777-3) message] The sy stem which generated this result transmitted reference range : 166 - 358 10*3/ ?L. The reference r arnulfo was not used to interpret this result as normal/abnormal . MPV (test code = 10.1 fL 9.5-12.9 14776-0) NRBC/100 WBC (test See_Comment [Automat ed code = 6465031501) message] The system which generated this result transmitted reference range : 0.0 - 10.0 /100 WBCs. The refer ence range was not u sed to interpret th is result as normal/abnormal . NRBC x10^3 (test code <0.01 See_Comment [Auto mated = 3196819804) message] The s ystem which generated this result transmitted reference range : 10*3/?L. The reference range was not used to interpret this result as normal/abnormal . GRAN MAT (NEUT) % 89.2 % (test code = 770-8) IMM GRAN % (test code 0.30 % = 8102286930) LYMPH % (test code = 9.4 % 736-9) MONO % (test code = 1.1 % 5905-5) EOS % (test code = 0.0 % 713-8) BASO % (test code = 0.0 % 706-2) GRAN MAT x10^3(ANC) 5.63 10*3/uL 1.88-7.09 (test code = 9234756472) IMM GRAN x10^3 (test <0.03 0.00-0.06 code = 1781128395) LYMPH x10^3 (test code 0.59 10*3/uL 1.32-3.29 L = 731-0) MONO x10^3 (test code 0.07 10*3/uL 0.33-0.92 L = 742-7) EOS x10^3 (test code = <0.03 0.03-0.39 L 711-2) BASO x10^3 (test code <0.03 0.01-0.07 = 704-7) Lab Interpretation Abnormal (test code = 95739-9) [facility] [id number] 00:54:28 Test Item Value Reference Range Interpretation Comments PHOSPHORUS (test code = 3.7 mg/dL 2.5-5.0 Slig ht hemolysis 8836643610) Lab Interpretation (test Normal code = 69779-4) [facility] BrookTROPONIN [id number] 16:14:02 Test Item Value Reference Interpretation Comments Range TROPONIN I (test 0.005 ng/mL See_Comment [Automated code = 2649543997) message] The system which generated this result transmitted reference range : <=0.034. The reference range was not used to interpret this result as normal/abnormal . YKLE (test code = Reference (Normal) KYLE) Range [...] biotin. Lab Interpretation Normal (test code = 63735-4) [facility] (92014)2021-03-10 15:59:39 Test Item Value Reference Range Interpretation Comments NA (test code = 136 mmol/L 135-145 1194937548) K (test code = 4.3 mmol/L 3.5-5.0 7713881403) CL (test code = 93 mmol/L 98-108 L 9778523472) CO2 TOTAL (test code = 39 mmol/L 23-31 H 3620287647) AGAP (test code = 2-16 3899623335) BUN (test code = 12 mg/dL 7-23 9294781163) GLUCOSE (test code = 121 mg/dL 70-110 H 4721030396) CREATININE (test code = 0.40 mg/dL 0.50-1.04 L 8940301528) TOTAL BILI (test code = 0.7 mg/dL 0.1-1.7 8081208142) CALCIUM (test code = 8.9 mg/dL 8.6-10.6 7653076175) T PROTEIN (test code = 7.3 g/dL 6.3-8.2 7732801292) ALBUMIN (test code = 4.1 g/dL 3.5-5.0 7114871282) ALK PHOS (test code = 92 U/L 34-122 2654051591) ALTv (test code = 9 U/L 5-35 1742-6) AST(SGOT) (test code = 23 U/L 13-40 0639511091) eGFR (test code = mL/min/1.73m2 2080880970) KYLE (test code = KYLE) Association of [...] tests). Lab Interpretation Abnormal (test code = 07058-7) [facility] Brook[facility]IPASE, [id number] 15:58:58 Test Item Value Reference Range Interpretation Comments LIPASE (test code = 0445989247) 24 U/L 0-220 Lab Interpretation (test code = Normal 96319-1) [facility] BrookaPTT2022-02-03 15:44:56 Test Item Value Reference Range Interpretation Comments APTT Patient (test See_Comment [Automat ed code = 3173-2) message] The system which generated this result transmitted reference range : 23 - 38 Seconds . The reference range was not used to interpr et this result as normal/abnormal . KYLE (test code = KYLE) The [facility] patient population mean normal value for aPTT is 30 seconds. Lab Interpretation Normal (test code = 57761-7) [facility] BrookPROTHROMBIN TIME / [id number] 15:42:34 Test Item Value Reference Range Interpretation [...] tions. Lab Interpretation (test Normal code = 52545-9) [facility] BrookCB WITH [id number] 15:36:36 Test Item Value Reference Range Interpretation Comments WBC (test code = See_Comment H [Automated 0790-2) message] The system which generated this result transmit blayne reference range : 4.30 - 11.10 10*3/?L. The reference range was not used to interpret this result as normal/abnormal . RBC (test code = See_Comment L [Automated 289-8) message] The system which generated this result [...] RDW-SD (test code = 45.7 fL 39.0-49.9 83116-0) RDW-CV (test code = 13.7 % 12.0-15.5 788-0) PLT (test code = See_Comment [Automated 777-3) message] The system which generated this result transmit blayne reference range : 166 - 358 10*3/ ?L. The reference range was not u sed to interpret th is result as normal/abnormal . MPV (test code = 9.7 fL 9.5-12.9 07856-0) NRBC/100 WBC (test See_Comment [Automat ed code = 3678421571) message] The system which generated this result transmit blayne reference range : 0.0 - 10.0 /100 WBCs. The reference range was not used to interpret this result as normal/abnormal . NRBC x10^3 (test code <0.01 See_Comment [Auto mated = 8018564998) message] The system which generated this result transmit blayne reference range : 10*3/?L. The reference range was not used to interpret this result as normal/abnormal . GRAN MAT (NEUT) % 83.9 % (test code = 770-8) IMM GRAN % (test code 0.40 % = 9364411753) LYMPH % (test code = 9.2 % 736-9) MONO % (test code = 4.9 % 5905-5) EOS % (test code = 1.4 % 713-8) BASO % (test code = 0.2 % 706-2) GRAN MAT x10^3(ANC) 11.59 10*3/uL 1.88-7.09 H (test code = 6365490151) IMM GRAN x10^3 (test 0.06 10*3/uL 0.00-0.06 code = 7314354585) LYMPH x10^3 (test code 1.28 10*3/uL 1.32-3.29 L = 731-0) MONO x10^3 (test code 0.68 10*3/uL 0.33-0.92 = 742-7) EOS x10^3 (test code = 0.20 10*3/uL 0.03-0.39 711-2) BASO x10^3 (test code 0.03 10*3/uL 0.01-0.07 = 704-7) Lab Interpretation Abnormal (test code = 28512-1) [facility]ARS-CoV-2 (COVID-19) RNA [Presence] in Respiratory specimen by CONNOR with probe [id number] 19:20:03 Test Item Value Reference Range Interpretation Comments SARS-CoV-2 (COVID-19) RNA Not detected Not-Detected [Presence] in Respiratory specimen by [facility]NOR with probe detection (test code = 32755-8) Whether patient is employed in a healthcare setting (test code = 60096-9) Whether the patient has symptoms related to condition of interest (test code = 09024-3) Patient was hospitalized because of this condition (test code = 86755-8) Whether the patient was admitted to intensive care unit (ICU) for condition of interest (test code = 94716-7) Whether patient resides in a congregate care setting (test code = 21944-9) [facility]
[2022-12-11] MEDS ORDERED: DIAZEPAM 10 MG/2 ML INJ SYRINGE ONE (21:24)
[2022-12-11] MEDS ORDERED: METHYLPREDNISOLONE 125 MG INJ ONE (21:25)
[2022-12-11] MEDS ORDERED: MORPHINE 4 MG/ML SYR ONE (21:25)
[2022-12-11] MEDS ORDERED: LEVALBUTEROL 0.63 MG/3 ML NEB ONE (21:27)
[2022-12-11 22:04] LABS: Absolute Lymphocytes (CBC) 0.5 K/uL (0.7-4.9); Hematocrit 31.5 % (36.0-45.0); Lymphocytes % 5.9 % (15.3-44.8); MCV 84.9 fL (80-100); MPV 7.3 fL (7.6-11.3); Platelets 633 thou/uL (152-406); RBC Red Blood Cell Count 3.71 M/uL (3.86-4.86)
--- NOTE | 2022-12-11 22:11 | RAD REPORT ---
EXAM DESCRIPTION: RADChest Single View12/11/2022 9:51 pm CLINICAL HISTORY: CHEST PAIN COMPARISON: Chest Single View dated 11/08/2022; Chest Single View dated 11/06/2022; Chest Single View dated 07/10/2022; Chest Single View dated 11/23/2021 TECHNIQUE: Portable AP view of the chest. FINDINGS: Diffuse hyperinflation with irregular opacities and/ or scarring at the left apex and righ t upper to mid lung, stable. No new focal consolidation. No pneumothorax or effusion. The cardiomedia stinal contours are unremarkable. IMPRESSION: No acute cardiopulmonary process. Stable chronic findings as above.
[2022-12-11 22:31] LABS: AST/SGOT 8 U/L (15-37); Albumin 2.4 g/dL (3.4-5.0); Alkaline Phosphatase 99 U/L (45-117); BUN Blood Urea Nitrogen 10 mg/dL (7-18); Bicarbonate 36 mEq/L (21-32); Bilirubin Total 0.1 mg/dL (0.2-1.0); Creatine Phosphokinase 20 U/L (26-192); Glomerular Filtration Rate 104 ml/min (=/>90); Glucose Level 185 mg/dL (74-106); Lipase 12 U/L (13-75); Magnesium 1.7 mg/dL (1.6-2.4); NT PRO-BNP 221 pg/mL (<125); Potassium 4.3 mEq/L (3.5-5.1); Protein, Total 8.2 g/dL (6.4-8.2); Protime INR 1.14; Sodium Level 134 mEq/L (136-145); Troponin High Sensitivity 7.4 pg/mL (<58.9)
[2022-12-11 22:35] LABS: ALT/SGPT < 10 U/L (13-56); Bilirubin Direct < 0.1 mg/dL (0-0.2); Bilirubin Indirect, Calculated ND mg/dL (0.2-0.8)
[2022-12-11] MEDS ORDERED: MORPHINE 2 MG/ML SYR IV PRN (22:44)
[2022-12-11] MEDS ORDERED: ACETAMINOPHEN 500 MG TAB PO PRN (22:44)
--- NOTE | 2022-12-11 22:44 | EDPHYS ---
Physician Documentation [facility] Name: Kallie Correia Age: 62 yrs Sex: Female : 1960 Arrival Date: 12/11/2022 Time: 20:30 Bed 13 Private MD: ED Physician Brendan Cabello HPI: 12/11 20:47 This 62 yrs old Female presents to ER via Unassigned with complaints of sp4 Shortness Of Breath, Chest Pain. 20:47 PMH - Allergies: Albuterol; Morphine PMHx: COPD; Non-tuberculin Mycoplasma; Emphysema;. sp4 20:59 62-year-old female presents with acute onset of worsening shortness of breath sp4 consistent with her COPD worsening and also chest pain on the last 3 days.. Patient states her heart rate has been elevated as well. Patient is on daily home oxygen [id number] 4-1/2 L. Patient is also reporting to be on the lung transplant list at the [facility]. . 22:25 Patient has history of recent admission here on 11/09/2022 patient was admitted for COPD sp4 exacerbation. Patient has a history of COPD nontuberculous mycoplasma and physical deconditioning and she was admitted additionally for pneumonia with unspecified organism and paroxysmal atrial fibrillation with RVR. Patient's home medications include fluticasone-salmeterol, aspirin 81 mg daily, flecainide 50 mg p.o. twice daily, metoprolol succinate 25 mg p.o. twice daily, gabapentin 600 mg p.o. twice daily, Protonix 40 mg p.o. twice daily, senna docusate, azithromycin 250 mg Sunday, cefdinir 300 mg p.o. twice daily, hydrocodone 5 as needed every 6 hours prednisone 20 mg p.o. twice daily.. Historical: - Allergies: 21:01 Albuterol; nj1 21:01 Morphine; nj1 - PMHx: 21:01 COPD; Emphysema; Non-tuberculin Mycoplasma; nj1 - PSHx: 21:01 Hysterectomy (Unknown); nj1 - Immunization history:: Client reports receiving the 2nd dose of the Covid vaccine. - Social history:: Smoking status: Patient/guardian denies using tobacco, the patient reports quitting approximately 8 years ago. - Family history:: not pertinent. ROS: 22:30 Constitutional: Negative for fever, chills, and weight loss, positive for anxiety sp4 positive for chest pain positive for shortness of breath positive for cough 22:30 All other systems are negative, Exam: 22:30 Constitutional: This is a well developed, well nourished patient who is awake, alert, sp4 patient has moderate anxiety, upset and tearful, dyspnea, tachypnea, emotional upset, thin appearing female with signs of physical deconditioning. Barrel chested appearance and indicative of longstanding COPD Head/Face: Normocephalic, atraumatic. Eyes: Pupils equal round and reactive to light, extra-ocular motions intact. Lids and lashes normal. Conjunctiva and sclera are not injected. Cornea within normal limits. Periorbital areas with no swelling, redness, or edema. ENT: Nares patent. No nasal discharge, no septal abnormalities noted. Tympanic membranes are normal and external auditory canals are clear. Oropharynx with no redness, swelling, or masses, exudates, or evidence of obstruction, uvula midline. Mucous membranes moist. Neck: Trachea midline, no thyromegaly or masses palpated, and no cervical lymphadenopathy. Supple, full range of motion without nuchal rigidity, or vertebral point tenderness. Chest/axilla: Normal chest wall appearance and motion. Nontender with no deformity. No lesions are appreciated. Cardiovascular: Regular rate and rhythm with a normal S1 and S2. No gallops, murmurs, or rubs. Normal PMI, no JVD. No pulse deficits. Respiratory: Lungs have equal breath sounds bilaterally,, dyspnea, tachypnea, barrel chested appearance, there is mild expiratory wheezes scattered but lung sounds present in all lung cordova Abdomen/GI: Soft, non-tender, with normal bowel sounds. No distension or tympany. No guarding or rebound. No evidence of tenderness throughout. Back: No spinal tenderness. No costovertebral tenderness. Skin: Warm, dry with normal turgor. Normal color with no rashes, no lesions, and no evidence of cellulitis. MS/ Extremity: Pulses equal, no cyanosis. Neurovascular intact. Full, normal range of motion. Neuro: Awake and alert, GCS 15, oriented to person, place, time, and situation. Cranial nerves II-XII grossly intact. Motor strength 5/5 in all extremities. Sensory grossly intact. Psych: Awake, alert, with orientation to person, place and time. Behavior, mood, and affect are within normal limits Vital Signs: 20:50 BP 118 / 90; Pulse 92; Resp 20; Temp 98.6(O); Pulse Ox 97% on 4 lpm NC; Weight 46.72 nj1 kg; Height 5 ft. 2 in. ; 21:00 BP 129 / 109; Pulse 90; Resp 24; Pulse Ox 99% ; Pain 0/10; la4 21:30 BP 141 / 129; Pulse 89; Resp 22; Pulse Ox 100% on 4 lpm NC; la4 22:00 BP 93 / 66; Pulse 79; Resp 22; Pulse Ox 100% 4 lpm ; la4 22:30 BP 98 / 74; Pulse 79; Resp 22; Pulse Ox 100% on 4 lpm NC; la4 23:00 BP 95 / 56; Pulse 68; Resp 20; Pulse Ox 100% on 4 lpm NC; la4 20:50 Body Mass Index 18.84 (46.72 kg, 157.48 cm) nj1 21:00 Pain Scale: Adult la4 Fady Coma Score: 23:00 Eye Response: spontaneous(4). Motor Response: obeys commands(6). Verbal Response: la4 oriented(5). Total: 15. MDM: 20:49 Patient medically screened. sp4 22:30 Data reviewed: vital signs, nurses notes, old medical records, lab test result(s), EKG, sp4 radiologic studies, plain films. 22:40 Differential diagnosis: Anemia Anxiety Reaction CHF exacerbation, Chronic Obstructive sp4 Pulmonary Disease pneumonia, Psychogenic pulmonary edema. Antibiotic administration: We will administer IV Rocephin. 22:41 Consideration of Admission/Observation Patient was admitted/placed on observation. sp4 Escalation of care including admission/observation considered. Management of patient was discussed with the following: Hospitalist: Dr. Tellez . ED course: Patient has significant COPD exacerbation which warrants admission to the hospital. At this time no sign of ACS. We will request rule out ACS as well. . 12/11 20:49 Order name: BMP; Complete Time: 22:39 sp4 12/11 20:49 Order name: Blood Culture Adult (2) sp4 12/11 20:49 Order name: CBC with Diff sp4 12/11 20:49 Order name: CPK; Complete Time: 22:39 sp4 12/11 20:49 Order name: Hepatic Function; Complete Time: 22:39 sp4 12/11 20:49 Order name: Lipase; Complete Time: 22:39 sp4 12/11 20:49 Order name: Magnesium; Complete Time: 22:39 sp4 12/11 20:49 Order name: NT PRO-BNP; Complete Time: 22:39 sp4 12/11 20:49 Order name: PT-INR; Complete Time: 22:39 sp4 12/11 20:49 Order name: Ptt, Activated; Complete Time: 22:39 sp4 12/11 20:49 Order name: Troponin HS; Complete Time: 22:39 sp4 12/11 20:59 Order name: COVID-19 SARS RT PCR; Complete Time: 22:39 sp4 12/11 20:59 Order name: Influenza Screen (a \T\ B); Complete Time: 23:45 sp4 12/11 22:09 Order name: Manual Differential EDMS 12/11 22:49 Order name: CBC with Automated Diff EDMS 12/11 22:49 Order name: CBC with Automated Diff EDMS 12/11 22:49 Order name: Comprehensive Metabolic Panel EDMS 12/11 22:49 Order name: Comprehensive Metabolic Panel EDMS 12/11 22:49 Order name: Troponin High Sensitivity EDMS 12/11 22:49 Order name: Troponin High Sensitivity EDMS 12/11 22:49 Order name: Troponin High Sensitivity EDMS 12/11 22:49 Order name: Troponin High Sensitivity EDMS 12/11 20:49 Order name: XRAY CXR (1 view); Complete Time: 22:39 sp4 12/11 22:46 Order name: Chest For Pe Angio EDMS 12/11 20:49 Order name: EKG; Complete Time: 20:50 sp4 12/11 20:49 Order name: Cardiac monitoring; Complete Time: 21:46 sp4 12/11 20:49 Order name: EKG - Nurse/Tech sp4 12/11 20:49 Order name: IV Saline Lock; Complete Time: 21:46 sp4 12/11 20:49 Order name: Labs collected and sent; Complete Time: 21:46 sp4 12/11 20:49 Order name: O2 Per Protocol; Complete Time: 21:46 sp4 12/11 20:49 Order name: O2 Sat Monitoring; Complete Time: 21:46 sp4 Administered Medications: 20:58 Not Given (Patient Refused): albuterol2.5 mg Inhalation every 20 minutes x3 sp4 21:45 Drug: MethylPREDNISolone Sodium Succinate IM 125 mg IM once Route: IM; Site: right la4 deltoid; 22:30 Follow up: Response: Wheezing diminished la4 21:46 Drug: Diazepam IVP 2 mg IVP once Route: IVP; Site: right wrist; la4 22:30 Follow up: Response: No adverse reaction; Anxiety decreased la4 21:46 Drug: Levalbuterol Inhalation 1.25 mg Inhalation once Route: Inhalation; la4 21:46 Not Given (Patient Refused; pt reports allergy of cardiac and respiratory arrestt): la4 morphineor iv 4 mg IVP once over 4 mins 22:08 Drug: Ondansetron IVP 4 mg IVP once; over 2 minutes Route: IVP; Site: right wrist; la4 12/12 00:12 Follow up: Response: No adverse reaction; Nausea is decreased la4 12/11 22:53 Drug: HYDROmorphone IVP 0.5 mg IVP once Route: IVP; Site: right wrist; la4 12/12 00:12 Follow up: Response: No adverse reaction; Pain is decreased la4 12/11 23:00 Drug: Aspirin PO 325 mg PO once Route: PO; la4 23:20 Drug: Rocephin - Rocephin (cefTRIAXone) IVPB 1 grams IVPB once over 30 mins; (mix in 50 la4 mL NS) Route: IVPB; Infused Over: 30 mins; Site: right wrist; Disposition Summary: 12/11/22 22:43 Hospitalization Ordered Notes: Hospitalization Status: Inpatient Admission sp4 Provider: Sam Tellez Location: Telemetry/[facility] (Inpatient) sp4 Condition: Stable sp4 Problem: new sp4 Symptoms: have improved sp4 Bed/Room Type: Standard sp4 Room Assignment: 413(12/11/22 22:59) mw Diagnosis - COPD/ Chronic obstructive pulmonary disease with (acute) exacerbation sp4 - Angina pectoris, unspecified sp4 - Acute anxiety, physical deconditioning, cachexia sp4 Forms: - Medication Reconciliation Form sp4 - SBAR form sp4 - Leadership Thank You Letter sp4 Signatures: Dispatcher [employer] Gwendolyn Quintanilla RN RN mw Brendan Cabello MD MD sp4 Gabbie Velazquez RN RN nj1 Dorian Kapadia RN RN la4 Corrections: (The following items were deleted from the chart) 22:59 22:43 sp4 jay
--- NOTE | 2022-12-11 22:44 | ER ---
Nurse's Notes [facility] Name: Kallie Correia Age: 62 yrs Sex: Female : 1960 Arrival Date: 12/11/2022 Time: 20:30 Bed 13 Private MD: Diagnosis: COPD/ Chronic obstructive pulmonary disease with (acute) exacerbation;Angina pectoris, unspecified;Acute anxiety, physical deconditioning, cachexia Presentation: 12/11 20:50 Chief complaint: Patient states: Shortness of breath that worsen this morning. States nj1 she has been having chest pain all over for a couple of days but about an hour ago, she got very nauseous and pain got worse. Home O2 at 4-5 LPM via NC 28/08. 20:50 Coronavirus screen: Vaccine status: Patient reports receiving the 2nd dose of the covid nj1 vaccine. Ebola Screen: Patient denies travel to an Ebola-affected area in the 21 days before illness onset. Initial Sepsis Screen: Does the patient meet any 2 criteria? HR > 90 bpm. No. Patient's initial sepsis screen is negative. Does the patient have a suspected source of infection? No. Patient's initial sepsis screen is negative. Risk Assessment: Do you want to hurt yourself or someone else? Patient reports no desire to harm self or others. Onset of symptoms was December 11, 2022. 20:50 Method Of Arrival: Wheelchair nj 20:50 Acuity: BENJI 2 nj1 Triage Assessment: 21:30 General: Behavior is cooperative, anxious. Respiratory: Reports shortness of breath at la4 rest the patient has moderate shortness of breath. 23:55 General: Appears uncomfortable. la4 Historical: - Allergies: 21:01 Albuterol; nj1 21:01 Morphine; nj1 - PMHx: 21:01 COPD; Emphysema; Non-tuberculin Mycoplasma; nj1 - PSHx: 21:01 Hysterectomy (Unknown); nj1 - Immunization history:: Client reports receiving the 2nd dose of the Covid vaccine. - Social history:: Smoking status: Patient/guardian denies using tobacco, the patient reports quitting approximately 8 years ago. - Family history:: not pertinent. Screenin:30 [facility] ED Fall Risk Assessment (Adult) History of falling in the last 3 months, la4 including since admission No falls in past 3 months (0 pts) Confusion or Disorientation No (0 pts) Intoxicated or Sedated No (0 pts) Impaired Gait No (0 pts) Mobility Assist Device Used Yes (1 pt) Altered Elimination Yes (1 pt) Score/Fall Risk Level 3 or more points = High Risk Oriented to surroundings, Maintained a safe environment, Educated pt \T\ family on fall prevention, incl call for assistance when getting out of bed, Provided non-skid footwear, Hourly rounding (assess needs \T\ fall precautionary measures) done. Abuse screen: Denies threats or abuse. Denies injuries from another. Nutritional screening: No deficits noted. Tuberculosis screening: No symptoms or risk factors identified. Assessment: 20:57 General: No report given on patient. Pt found in room with family and no triage la4 completed. Pt care assumed at this time. Will investigate why patient came to ER for treatment. 21:30 Pain: Complains of pain in chest Pain does not radiate. Pain currently is 10 out of 10 la4 on a pain scale. Quality of pain is described as pressure, Pain began suddenly. Cardiovascular: Reports chest pain, shortness of breath, Heart tones S1 S2 Capillary refill < 3 seconds is brisk Rhythm is regular. Respiratory: Airway is patent Trachea midline Respiratory effort is even, labored, pursed lip, Respiratory pattern is regular, symmetrical, tachypnea Breath sounds are diminished Breath sounds with wheezes in left posterior upper lobe and right posterior upper lobe. Vital Signs: 20:50 BP 118 / 90; Pulse 92; Resp 20; Temp 98.6(O); Pulse Ox 97% on 4 lpm NC; Weight 46.72 nj1 kg; Height 5 ft. 2 in. ; 21:00 BP 129 / 109; Pulse 90; Resp 24; Pulse Ox 99% ; Pain 0/10; la4 21:30 BP 141 / 129; Pulse 89; Resp 22; Pulse Ox 100% on 4 lpm NC; la4 22:00 BP 93 / 66; Pulse 79; Resp 22; Pulse Ox 100% 4 lpm ; la4 22:30 BP 98 / 74; Pulse 79; Resp 22; Pulse Ox 100% on 4 lpm NC; la4 23:00 BP 95 / 56; Pulse 68; Resp 20; Pulse Ox 100% on 4 lpm NC; la4 20:50 Body Mass Index 18.84 (46.72 kg, 157.48 cm) nj1 21:00 Pain Scale: Adult la4 Vitals: 21:30 Cardiac Rhythm Assessment Regular Sinus rhythm. la4 23:00 Cardiac Rhythm Assessment Regular Sinus rhythm. la4 Ebro Coma Score: 23:00 Eye Response: spontaneous(4). Motor Response: obeys commands(6). Verbal Response: la4 oriented(5). Total: 15. ED Course: 20:43 Patient arrived in ED. gm2 20:47 Brendan Cabello MD is Attending Physician. sp4 20:56 Dorian Kapadia RN is Primary Nurse. la4 21:01 Triage completed. nj1 21:02 Arm band placed on. nj1 21:30 Patient has correct armband on for positive identification. Placed in gown. Bed in low la4 position. Call light in reach. Side rails up X2. Provided Education on: plan of care. 21:30 No provider procedures requiring assistance completed. la4 21:30 Inserted saline lock: 20 gauge in right forearm, using aseptic technique. la4 21:46 XRAY CXR (1 view) Sent. la4 21:46 BMP Sent. la4 21:46 CBC with Diff Sent. la4 21:46 CPK Sent. la4 21:46 Hepatic Function Sent. la4 21:46 Lipase Sent. la4 21:46 Magnesium Sent. la4 21:46 NT PRO-BNP Sent. la4 21:46 PT-INR Sent. la4 21:46 Ptt, Activated Sent. la4 21:46 Troponin HS Sent. la4 21:53 XRAY CXR (1 view) In Process Unspecified. EDMS 22:42 Sam Tellez MD is Hospitalizing Provider. sp4 12/12 00:12 Patient admitted, IV remains in place. la4 Administered Medications: 12/11 20:58 Not Given (Patient Refused): albuterol2.5 mg Inhalation every 20 minutes x3 sp4 21:45 Drug: MethylPREDNISolone Sodium Succinate IM 125 mg IM once Route: IM; Site: right la4 deltoid; 22:30 Follow up: Response: Wheezing diminished la4 21:46 Drug: Diazepam IVP 2 mg IVP once Route: IVP; Site: right wrist; la4 22:30 Follow up: Response: No adverse reaction; Anxiety decreased la4 21:46 Drug: Levalbuterol Inhalation 1.25 mg Inhalation once Route: Inhalation; la4 21:46 Not Given (Patient Refused; pt reports allergy of cardiac and respiratory arrestt): la4 morphineor iv 4 mg IVP once over 4 mins 22:08 Drug: Ondansetron IVP 4 mg IVP once; over 2 minutes Route: IVP; Site: right wrist; la4 12/12 00:12 Follow up: Response: No adverse reaction; Nausea is decreased la4 12/11 22:53 Drug: HYDROmorphone IVP 0.5 mg IVP once Route: IVP; Site: right wrist; la4 12/12 00:12 Follow up: Response: No adverse reaction; Pain is decreased la4 12/11 23:00 Drug: Aspirin PO 325 mg PO once Route: PO; la4 23:20 Drug: Rocephin - Rocephin (cefTRIAXone) IVPB 1 grams IVPB once over 30 mins; (mix in 50 la4 mL NS) Route: IVPB; Infused Over: 30 mins; Site: right wrist; Medication: 21:30 VIS not applicable for this client. la4 Outcome: 22:43 Decision to Hospitalize by Provider. sp4 12/12 00:11 Admitted to Tele accompanied by tech, via stretcher, on monitor, with chart, Report la4 called to Elise REID Condition: stable Instructed on the need for admit, Demonstrated understanding of plan of care 00:14 Patient left the ED. la4 Signatures: Dispatcher [employer] EDMS Brendan Cabello MD MD sp4 Gabbie Velazquez RN RN [email or web address] Kristen Santiago [facility] Dorian Kapadia RN RN la4 Corrections: (The following items were deleted from the chart) 12/11 21:04 20:50 BP 118 / 90; Pulse 92bpm; Resp 20bpm; Pulse Ox 97% 4 lpm Nasal Cannula; Temp nj1 98.6F Oral; nj1
[2022-12-11] MEDS ORDERED: HYDROMORPHONE HCL 0.5 MG/0.5 ML INJ ONE (22:59)
[2022-12-11] MEDS ORDERED: ASPIRIN 325 MG TAB ONE (23:20)
[2022-12-11] MEDS ORDERED: NA CHLORIDE 0.9% 50 ML ONE (23:20)
[2022-12-11] MEDS ORDERED: CEFTRIAXONE 1000 MG/VIAL ONE (23:20)
--- NOTE | 2022-12-11 23:20 | P.HP ---
Certification for Inpatient Patient admitted to: Inpatient With expected LOS: >2 Midnights Patient will require the following post-hospital care: None Practitioner: I am a practitioner with admitting privileges, knowledge of patient current condition, hospital course, and medical plan of care. Services: Services provided to patient in accordance with Admission requirements found in Title 42 Section 412.3 of the Code of Federal Regulations Patient History Date of Service: 12/12/22 Reason for admission: SOB History of Present Illness: 62 yrs old Female with past medical history of COPD, emphysema, nontuberculous mycoplasma history, hypertension chronic hypoxic respiratory failure on oxygen support, anxiety, chronic pain who presented to ER with worsening of shortness of breath. Patient has a history of COPD and also on 4 L home oxygen but she was started having chest discomfort and shortness of breath which has been progressively worsening over the last 2 days and has been having trouble breathing and was brought to ER. Denies any fever or chills. Associated with the cough. Patient has a history of paroxysmal atrial fibrillat ion as well. Chest pain is retrosternal nonradiating not associated with any diaphoresis. Associated with cough and anxiety. Patient also states that her heart rate has been high. She is on the transplant list at [facility] Patient had a recent admission for COPD exacerbation as well. Patient was assessed in the ER and was admitted for further management of COPD exacerbation. And to rule out ACS Allergies morphine Allergy (Intermediate, Verified 10/23/15 06:09) Hives/Rash albuterol Allergy (Verified 07/11/22 01:06) Nausea/Vomiting lorazepam [From Ativan] Allergy (Verified 12/12/22 00:49) Itching/Hives/Rash Home medications list reviewed: Yes Home Medications: Fluticasone Propion/Salmeterol [Fluticasone-Salmeterol 250-50] 1 puff IH BID 05/29/20 Aspirin [Aspirin EC 81 MG] 81 mg PO DAILY 07/11/22 Flecainide Acetate 50 mg PO BID 07/11/22 Metoprolol Succinate [Toprol Xl*] 25 mg PO BID 07/11/22 Gabapentin 600 mg PO BID 11/06/22 Pantoprazole [Protonix Tab*] 40 mg PO BID 11/06/22 Sennosides/Docusate Sodium [Senna-S 8.6-50 mg Tablet] 1 each PO BID 11/06/22 Azithromycin Tab [Zithromax*] 250 mg PO M,W,F #30 tab 11/09/22 Cefdinir [Cefdinir*] 300 mg PO BID #14 cap 11/09/22 Hydrocodone 5/APAP 325 [[place] 5/325*] 1 tab PO Q6HP PRN #60 tab 11/09/22 predniSONE [Deltasone] 20 mg PO BID #30 tab 11/09/22 - Past Medical/Surgical History Diabetic: No Past Medical History: Reviewed- Non-Contributory -: COPD -: Bronchitis -: Chronic lung infection -: 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 -: HTN Past Surgical History: Reviewed- Non-Contributory -: Hysterectomy -: Tubal ligation -: tosillectomy -: R leg sx with metal screws -: Patient has had fine-needle aspiration complicated by pneumothorax -: Bronchoscopy at [facility] -: Lung transplant - Family History Family History: Reviewed- Non-Contributory - Family History Mother -: Cancer Sister -: Cancer Father -: Heart disease Brother -: Lung disease - Social History Alcohol use: No CD- Drugs: No Caffeine use: No Review of Systems 10-point ROS is otherwise unremarkable General: Weakness, Malaise, Unremarkable Eyes: Unremarkable ENT: Unremarkable Respiratory: Cough, Shortness of Breath, SOB with Excertion, Pleuritic Pain, Wheezing Cardiovascular: Chest Pain, Orthopnea, Unremarkable Gastrointestinal: Unremarkable Genitourinary: Unremarkable Musculoskeletal: Unremarkable Integumentary: Unremarkable Neurological: Unremarkable Lymphatics: Unremarkable Physical Examination - Vital Signs Temperature: 98.6 F Blood Pressure: 118/86 Pulse: 92 Respirations: 20 Pulse Ox (%): 98 - Physical Exam General: Alert, Oriented x3, Cooperative, Cachectic, Mild distress HEENT: Atraumatic, Normocephalic Neck: Supple, JVD not distended, No Thyromegaly Respiratory: Diminished, Crackles/rales, Expiratory wheezes Cardiovascular: No edema, Regular rate/rhythm, Normal S1 S2, No rubs Capillary refill: <2 Seconds Gastrointestinal: Soft and benign, Non-distended, W/out hepatosplenomegaly Musculoskeletal: No clubbing, No swelling Integumentary: No rashes Neurological: Normal speech, Normal strength at 5/5 x4 extr, Cranial nerves 3-12 intact, Normal reflexes 2+, Other (Anxious) Lymphatics: No axilla or inguinal lymphadenopathy - Studies Laboratory Data (last 24 hrs) 12/11/22 12/11/22 12/11/22 21:37 21:37 21:37 WBC 8.40 Hgb 10.2 L Hct 31.5 L Plt Count 633 H PT 12.5 INR 1.14 APTT 36.8 Sodium 134 L Potassium 4.3 BUN 10 Creatinine 0.53 L Glucose 185 H Magnesium 1.7 Total Bilirubin 0.1 L AST 8 L ALT < 10 L Alkaline Phosphatase 99 Lipase 12 L Microbiology Data (last 24 hrs): 12/11/22 21:37 Nasopharnyx Influenza Type A Antigen Screen - Final 12/11/22 21:37 Nasopharnyx Influenza Type B Antigen Screen - Final Assessment and Plan - Problems (Diagnosis) (1) COPD exacerbation Onset Date: 10/25/15 Current Visit: No Status: Acute Plan: Monitor closely on telemetry Started on bronchodilators and steroids On oxygen support We will try to wean down oxygen requirement Bronchodilators as needed X-ray findings noted Patient is on transplantation for lungs at [facility] (2) Acute on chronic hypoxic respiratory failure Current Visit: Yes Status: Acute Plan: Patient is on home O2 4 L nasal cannula Noted to have hypoxic Oxygen supplementation We will try to wean down oxygen requirement Monitor continuous pulse oximetry (3) Acute bronchitis with COPD Current Visit: No Status: Acute Plan: Start on Levaquin Monitor closely (4) Chest pain Onset Date: 05/22/17 Current Visit: No Status: Acute Plan: Chest pain to rule out ACS We will monitor closely on telemetry We will trend cardiac enzymes Continue home medications We will get a CTA chest PE protocol Qualifiers: Chest pain type: unspecified Qualified Code(s): R07.9 - Chest pain, unspecified (5) History of MAC infection Current Visit: No Status: Chronic Plan: X-ray findings noted with multiple nodules Ordered a chest CT with contrast Continue Levaquin for now (6) Hypertension Current Visit: No Status: Chronic Plan: Continue home medications and diet restrict Monitor closely on telemetry Patient has a history of paroxysmal A-fib Continue home medications Qualifiers: Hypertension type: essential hypertension Qualified Code(s): I10 - Essential (primary) hypertension (7) Anxiety Current Visit: Yes Status: Acute Plan: Patient is allergic to lorazepam Continue Valium p.o. as needed Monitor closely Discharge Plan: Home Plan to discharge in: Greater than 2 days - Advance Directives Does patient have a Living Will: No Does patient have a Durable POA for Healthcare: No - Code Status/Comfort Care Code Status: Full Code Physician Review: Patient Assessed, Agree with Above Assessment and Plan Time Spent Managing Pts Care (In Minutes): 48
[2022-12-12 00:38] LABS: Blood Morphology Comment NOT SEEN (NOT SEEN); Platelet Estimate INCR
[2022-12-12] MEDS ORDERED: DIAZEPAM 5 MG TABLET PO ONE (00:52)
[2022-12-12] MEDS ORDERED: ALBUTEROL 2.5 MG/3 ML NEB SOL NEB PRN (01:13)
[2022-12-12] MEDS ORDERED: IPRATROPIUM BROM 0.5MG/2.5ML NEB PRN (01:14)
[2022-12-12 02:26] VITALS: BMI 19.2
[2022-12-12] MEDS: HYDROCODONE/APAP 5/325 MG TAB PO PRN ×5 (03:01→22:36)
[2022-12-12] MEDS ORDERED: ONDANSETRON 4 MG/2 ML VIAL IV PRN (03:55)
[2022-12-12] MEDS ORDERED: ALBUTEROL 2.5 MG/3 ML NEB SOL NEB SCH (04:00)
[2022-12-12] MEDS ORDERED: IPRATROPIUM BROM 0.5MG/2.5ML NEB SCH (04:00)
[2022-12-12] MEDS: METHYLPREDNISOLONE 125 MG INJ IV SCH ×3 (06:13→18:31)
[2022-12-12] MEDS: DIAZEPAM 5 MG TABLET PO PRN ×3 (06:13→21:32)
[2022-12-12 06:57] LABS: Absolute Lymphocytes (CBC) 0.6 K/uL (0.7-4.9); Hematocrit 29.2 % (36.0-45.0); Lymphocytes % 10.3 % (15.3-44.8); MCV 85.1 fL (80-100); MPV 7.3 fL (7.6-11.3); Platelets 506 thou/uL (152-406); RBC Red Blood Cell Count 3.43 M/uL (3.86-4.86)
[2022-12-12 07:19] LABS: AST/SGOT 5 U/L (15-37); Albumin 2.2 g/dL (3.4-5.0); Alkaline Phosphatase 86 U/L (45-117); BUN Blood Urea Nitrogen 11 mg/dL (7-18); Bicarbonate 38 mEq/L (21-32); Bilirubin Total 0.1 mg/dL (0.2-1.0); Glomerular Filtration Rate 107 ml/min (=/>90); Glucose Level 192 mg/dL (74-106); Potassium 4.3 mEq/L (3.5-5.1); Protein, Total 7.3 g/dL (6.4-8.2); Sodium Level 135 mEq/L (136-145)
--- NOTE | 2022-12-12 07:19 | RAD REPORT ---
EXAM DESCRIPTION: CT - Chest For Pe Angio - 12/12/2022 12:15 am CLINICAL HISTORY: Chest pain COMPARISON: July 2022 TECHNIQUE: Dynamically enhanced axial 3 mm thick images of the chest were obtained during administra tion of 100 mL Isovue 370 IV contrast. Coronal and oblique reconstruction images were generated and r eviewed. Exam utilizes a protocol for optimal evaluation of pulmonary arterial tree. Maximum intensity projections 3D imaging was utilized All CT scans are performed using dose optimization technique as appropriate and may include automated exposure control or mA/KV adjustment according to patient size. FINDINGS: A pulmonary embolus is not seen. A thoracic aortic aneurysm is not noted. A pleural effusion is not seen. A pericardial effusion is not seen. 12 centimeter lobulated cavitary lesion right upper lobe has increased size. 6.6 centimeter cavitary lesion left upper lobe markedly increased in size. Mild to moderate tree-in-bud opacities left upper lobe. Bilateral upper lobe volume loss Several small lung nodules. Several mild chronic compression deformities involve the spine IMPRESSION: Negative for a pulmonary embolism. Enlargement bilateral cavitary lesions most likely atypical infection Left lung tree-in-bud opacities and small nodules probably infectious
[2022-12-12 07:20] LABS: ALT/SGPT < 10 U/L (13-56)
[2022-12-12] MEDS: INSULIN REGULAR (HUMAN) 100 UNIT/ML SQ SCH ×4 (07:30→21:00)
[2022-12-12] MEDS ORDERED: INFLUENZA VACCINE (for 6+ mo) 0.5 ML DOSE IMVAC ONE (08:00)
[2022-12-12] MEDS: FLECAINIDE 100 MG TAB PO SCH ×2 (08:55→21:24)
[2022-12-12] MEDS: GABAPENTIN 300 MG CAP PO SCH ×2 (08:55→21:24)
[2022-12-12] MEDS: PANTOPRAZOLE 40MG TABLET PO SCH ×2 (08:55→21:24)
[2022-12-12] MEDS: DOCUSATE NA/SENNA CONC 1 TAB PO SCH ×2 (08:57→21:24)
[2022-12-12] MEDS: ASPIRIN EC 81 MG TAB PO SCH (08:57)
[2022-12-12] MEDS: METOPROLOL XL 25 MG TAB PO SCH ×2 (08:57→21:00)
[2022-12-12] MEDS: DULERA 200/5 (MOMETASONE/FORMOTEROL) INHALER IH SCH ×2 (09:00→21:00)
--- NOTE | 2022-12-12 12:31 | P.PN ---
Subjective Date of Service: 12/13/22 Chief Complaint: SOB Subjective: No new changes, Improving Physical Examination - Vital Signs Temperature: 97.8 F Blood Pressure: 99/58 Pulse: 67 Respirations: 16 Pulse Ox (%): 100 - Physical Exam General: Alert, Oriented x3 HEENT: Atraumatic Neck: Supple Respiratory: Normal air movement Cardiovascular: Regular rate/rhythm, Normal S1 S2 Gastrointestinal: Soft and benign Musculoskeletal: No swelling - Studies Laboratory Data (last 24 hrs) 12/11/22 12/11/22 12/11/22 21:37 21:37 21:37 WBC 8.40 Hgb 10.2 L Hct 31.5 L Plt Count 633 H PT 12.5 INR 1.14 APTT 36.8 Sodium 134 L Potassium 4.3 BUN 10 Creatinine 0.53 L Glucose 185 H Magnesium 1.7 Total Bilirubin 0.1 L AST 8 L ALT < 10 L Alkaline Phosphatase 99 Lipase 12 L Microbiology Data (last 24 hrs): 12/11/22 21:37 Nasopharnyx Influenza Type A Antigen Screen - Final 12/11/22 21:37 Nasopharnyx Influenza Type B Antigen Screen - Final Assessment And Plan - Plan Assessment and Plan - Problems (Diagnosis) (1) COPD exacerbation Onset Date: 10/25/15 Current Visit: No Status: Acute Plan: Monitor closely on telemetry Started on bronchodilators and steroids On oxygen support We will try to wean down oxygen requirement Bronchodilators as needed X-ray findings noted Patient is on transplantation for lungs at [facility] (2) Acute on chronic hypoxic respiratory failure Current Visit: Yes Status: Acute Plan: Patient is on home O2 4 L nasal cannula Noted to have hypoxic Oxygen supplementation We will try to wean down oxygen requirement Monitor continuous pulse oximetry (3) Acute bronchitis with COPD Current Visit: No Status: Acute Plan: Start on Levaquin Monitor closely (4) Chest pain Onset Date: 05/22/17 Current Visit: No Status: Acute Plan: Chest pain to rule out ACS We will monitor closely on telemetry We will trend cardiac enzymes Continue home medications CTA did not reveal any PE. Qualifiers: Chest pain type: unspecified Qualified Code(s): R07.9 - Chest pain, unspecified (5) History of MAC infection Current Visit: No Status: Chronic Plan: X-ray findings noted with multiple nodules No new finding on imaging. She will continue oral antibiotic prescription as outpatient (6) Hypertension Current Visit: No Status: Chronic Plan: Continue home medications and diet restrict Monitor closely on telemetry Patient has a history of paroxysmal A-fib Continue home medications Qualifiers: Hypertension type: essential hypertension Qualified Code(s): I10 - Essential (primary) hypertension (7) Anxiety Current Visit: Yes Status: Acute Plan: Patient is allergic to lorazepam Continue Valium p.o. as needed Monitor closely Discharge Plan: Home Plan to discharge in: Greater than 2 days - Advance Directives Does patient have a Living Will: No Does patient have a Durable POA for Healthcare: No - Code Status/Comfort Care Code Status: Full Code Physician Review: Patient Assessed, Agree with Above Assessment and Plan Time Spent Managing Pts Care (In Minutes): 48 Physician Review: Patient Assessed, Agree with Above Assessment and Plan
[2022-12-12] MEDS: ENSURE ENLIVE 237 ML CAN PO SCH (21:34)
[2022-12-13] MEDS: METHYLPREDNISOLONE 125 MG INJ IV SCH ×3 (00:26→13:00)
[2022-12-13] MEDS: HYDROCODONE/APAP 5/325 MG TAB PO PRN ×2 (02:48→09:09)
[2022-12-13] MEDS: DIAZEPAM 5 MG TABLET PO PRN ×2 (03:47→11:24)
[2022-12-13] MEDS: INSULIN REGULAR (HUMAN) 100 UNIT/ML SQ SCH ×2 (07:30→11:30)
[2022-12-13] MEDS: DULERA 200/5 (MOMETASONE/FORMOTEROL) INHALER IH SCH (09:00)
[2022-12-13] MEDS: DOCUSATE NA/SENNA CONC 1 TAB PO SCH (09:00)
[2022-12-13] MEDS: ENSURE ENLIVE 237 ML CAN PO SCH (09:00)
[2022-12-13] MEDS: METOPROLOL XL 25 MG TAB PO SCH (09:08)
[2022-12-13] MEDS: PANTOPRAZOLE 40MG TABLET PO SCH (09:08)
[2022-12-13] MEDS: ASPIRIN EC 81 MG TAB PO SCH (09:09)
[2022-12-13] MEDS: GABAPENTIN 300 MG CAP PO SCH (09:09)
[2022-12-13] MEDS: FLECAINIDE 100 MG TAB PO SCH (09:22)
--- NOTE | 2022-12-13 10:04 | P.DS ---
Admission Date: 12/11/22 Discharge Date: 12/13/22 Disposition: ROUTINE DISCHARGE Discharge Condition: GOOD Reason for Admission: SOB Brief History of Present Illness: 62 yrs old Female with past medical history of COPD, emphysema, nontuberculous mycoplasma history, hypertension chronic hypoxic respiratory failure on oxygen support, anxiety, chronic pain who presented to ER with worsening of shortness of breath. Patient has a history of COPD and also on 4 L home oxygen but she was started having chest discomfort and shortness of breath which has been progressively worsening over the last 2 days and has been having trouble breathing and was brought to ER. Denies any fever or chills. Associated with the cough. Patient has a history of paroxysmal atrial fibrillation as well. Chest pain is retrosternal nonradiating not associated with any diaphoresis. Associated with cough and anxiety. Patient also states that her heart rate has been high. She is on the transplant list at [facility] Patient had a recent admission for COPD exacerbation as well. Patient was assessed in the ER and was admitted for further management of COPD exacerbation. And to rule out ACS Hospital Course: She responded well to IV steroid, breathing treatment and other supportive care. She is on home oxygen and now mostly level was stable as of today. On examination air entry was good and she has no wheeze. She is stable for discharge today to continue with oral steroid for 5 days and follow-up with pulmonary physician as scheduled. He had a course of Zithromax 500 mg daily x3 to be given. Vital Signs/Physical Exam: Temp Pulse Resp BP Pulse Ox 97.1 F 68 18 116/62 100 12/13/22 04:00 12/13/22 09:08 12/13/22 04:00 12/13/22 09:08 12/13/22 04:00 General: Alert HEENT: Atraumatic, Normocephalic Neck: Supple Respiratory: Normal air movement Cardiovascular: Regular rate/rhythm, Normal S1 S2 Gastrointestinal: Soft and benign Musculoskeletal: No swelling Neurological: Normal speech Laboratory Data at Discharge: WBC 5.90 thou/uL (4.3-10.9) 12/12/22 06:10 Hgb 9.3 g/dL (12.0-15.0) L D 12/12/22 06:10 Hct 29.2 % (36.0-45.0) L 12/12/22 06:10 Plt Count 506 thou/uL (152-406) H 12/12/22 06:10 PT 12.5 SECONDS (9.5-12.5) 12/11/22 21:37 INR 1.14 12/11/22 21:37 APTT 36.8 SECONDS (24.3-36.9) 12/11/22 21:37 Sodium 135 mEq/L (136-145) L 12/12/22 06:10 Potassium 4.3 mEq/L (3.5-5.1) 12/12/22 06:10 BUN 11 mg/dL (7-18) 12/12/22 06:10 Creatinine 0.46 mg/dL (0.55-1.02) L 12/12/22 06:10 Glucose 192 mg/dL (74-106) H 12/12/22 06:10 Magnesium 1.7 mg/dL (1.6-2.4) 12/11/22 21:37 Total Bilirubin 0.1 mg/dL (0.2-1.0) L 12/12/22 06:10 AST 5 U/L (15-37) L 12/12/22 06:10 ALT < 10 U/L (13-56) L 12/12/22 06:10 Alkaline Phosphatase 86 U/L (45-117) 12/12/22 06:10 Lipase 12 U/L (13-75) L 12/11/22 21:37 Home Medications: Fluticasone Propion/Salmeterol [Fluticasone-Salmeterol 250-50] 1 puff IH BID 05/29/20 Aspirin [Aspirin EC 81 MG] 81 mg PO DAILY 07/11/22 Flecainide Acetate 50 mg PO BID 07/11/22 Metoprolol Succinate [Toprol Xl*] 25 mg PO BID 07/11/22 Gabapentin 600 mg PO BID 11/06/22 Pantoprazole [Protonix Tab*] 40 mg PO BID 11/06/22 Sennosides/Docusate Sodium [Senna-S 8.6-50 mg Tablet] 1 each PO BID 11/06/22 Hydrocodone 5/APAP 325 [[place] 5/325*] 1 tab PO TIDP PRN 12/12/22 Diet: AHA Followup: Jordy Zarco MD [Primary Care Provider] -
[2022-12-13 10:32] VITALS: O2SAT 98
[2022-12-13 14:32] VITALS: BP 91/52; TEMP 97.3
== END 2022-12-13 15:00 | disposition home health service (06) | DRG 190 ==
LOC: ER 20:30 → 4TH 23:43
PROVIDERS: ADMIT Family Medicine; ATTEND Internal Medicine Nephrology
DX: J43.9 Emphysema, unspecified (principal); J96.21 Acute and chronic respiratory failure with hypoxia; R64 Cachexia; Z68.1 Body mass index [BMI] 19.9 or less, adult; Z94.2 Lung transplant status; F41.9 Anxiety disorder, unspecified; J20.9 Acute bronchitis, unspecified; I10 Essential (primary) hypertension; I20.9 Angina pectoris, unspecified; I48.0 Paroxysmal atrial fibrillation; Z88.5 Allergy status to narcotic agent; Z88.8 Allergy status to other drugs, medicaments and biological substances; Z99.81 Dependence on supplemental oxygen; Z79.82 Long term (current) use of aspirin; Z98.51 Tubal ligation status; Z79.52 Long term (current) use of systemic steroids; Z79.899 Other long term (current) drug therapy; Z90.710 Acquired absence of both cervix and uterus; Z87.891 Personal history of nicotine dependence
CPT/HCPCS: 36415; 71045; 71275; 80048; 80053; 80076; 82550; 82947; 83690; 83735; 83880; 84484; 85025; 85610; 85730; 87040; 87635; 87804; 90471; 94640; 94760; 96372; 96374; 96375; 99285; J0696; J1170; J2405; J2930; J3360; J3535; J7613; J7614; J7644; Q2035; Q9967

== ENCOUNTER 2023-01-15 00:13 | Inpatient (IN) | payer OTHER ==
--- OUTSIDE RECORDS SUMMARY | 2023-01-15 00:16 | XMS REPORT | Clinical Summary ---
Author Name Unknown Organization [facility] Address [address] [address] Care Team Providers Care Handicraft Or Hobby Shop Manager Name Role Phone Rachel Greenberg MD Primary Care Provider Unav ailable Daria Roth MD Unavailable Daria Roth MD Unavailable Dennis Trent MD Unavailable [phone] Rachel Greenberg MD Unavailable Unavailabl e Leidy Scanlon PA Unavailable [phone] Leigh Johnson Unavailable [phone] Kylah Redd MD Unavailable [phone] Tani Daniel MD Unavailable [phone] Pham Thomas APRN Unavailable [phone] Verna Felipe APRN Unavailable [phone] Emile Ochoa PA Unavailable Medications Medication Sig Dispensed Refills Start Date End Date Status ipratropium (ATROVENT) 0.02% nebulizer solutionIndications:C hronic obstructive pulmonary disease INHALE ONE VIAL BY NEBULIZER 4 TIMES DAILY NEEDED 2.5 mL 3 07/22/2015 Active Immunizations Name Administration Dates Next Due Pneumococcal Conjugate 13-Valent 11/04/2014 Social History Tobacco Use Types Packs/Day Years Used Date Smoking Tobacco: Never Assessed Sex and Gender Information Value Date Recorded Sex Assigned at Not on file Gender Identity Not on file Sexual Orientation Not on file Plan of Treatment Health Maintenance Due Date Last Done Comments COVID-19 Vaccination (4 20 23-24 season) 2022 01/22/2022, 07/20/2021, 06/29/2021, Additional history exists Care Teams Handicraft Or Hobby Shop Manager Relationship Specialty Start Date End Date Rachel Greenberg MD PCP - General 04/07/15 Daria Roth MD PCP - External Referring 12/02/13 Daria Roth MD PCP - External Follow Up A 12/02/13 Dennis Trent MD [facility] [place] [address] Physician 04/14/15 Rachel Greenberg MD Physician 04/14/15 Leidy Scanlon PA [address] [place] [id number] Physician Rn Angiography 04/14/15 Leigh Johnson PA [address] [place] [phone] Physician Rn Angiography 04/14/15 Kylah Redd MD [address] [place] [address] 133[address] Physician 04/14/15 Tani Daniel MD [address] [place] [address] Physician 04/14/15 Pham Thomas APRN [address] [place] [address] [phone] Nurse Practitioner 04/14/15 Verna Felipe APRN [address] [place] [phone] Nurse Practitioner 04/14/15 Emile Ochoa PA [address] [place] [id number] Physician Rn Angiography 04/14/15
[2023-01-15 00:42] LABS: Arterial Blood Carboxyhemoglob 1.5 % (0-1.5); Blood O2 Saturation 92.9 % (92-98.5)
[2023-01-15 01:23] LABS: Absolute Lymphocytes (CBC) 0.6 K/uL (0.7-4.9); Lymphocytes % 3.5 % (15.3-44.8); MCV 87.5 fL (80-100); MPV 7.1 fL (7.6-11.3); Platelets 253 thou/uL (152-406); RBC Red Blood Cell Count 3.66 M/uL (3.86-4.86)
[2023-01-15 01:42] LABS: Albumin 2.5 g/dL (3.4-5.0); Bilirubin Total 0.3 mg/dL (0.2-1.0); Protein, Total 7.6 g/dL (6.4-8.2); Troponin High Sensitivity 10.2 pg/mL (<58.9)
[2023-01-15] MEDS ORDERED: FENTANYL CITR 100 MCG/2 ML ONE (01:43)
[2023-01-15] MEDS ORDERED: LEVALBUTEROL 1.25 MG/3 ML NEB ONE (02:04)
[2023-01-15] MEDS ORDERED: HYDROMORPHONE HCL 0.5 MG/0.5 ML INJ ONE ×3 (02:20→16:09)
[2023-01-15] MEDS ORDERED: DIAZEPAM 10 MG/2 ML INJ SYRINGE ONE (02:21)
[2023-01-15] MEDS ORDERED: NA CHLORIDE 0.9% 100 ML ONE (02:30)
[2023-01-15] MEDS ORDERED: CEFTRIAXONE 2000 MG/VIAL ONE (02:30)
--- NOTE | 2023-01-15 03:10 | EDPHYS ---
Physician Documentation [facility] Name: Kallie Correia Age: 62 yrs Sex: Female : 1960 Arrival Date: 01/15/2023 Time: 00:13 Bed 6 Private MD: ED Physician Durga Gatica HPI: 01/15 02:21 This 62 yrs old Female presents to ER via EMS with complaints of Chest Pain. rt 02:21 Patient presents to the ED with chest pain, dyspnea all day today. Denies other acute rt complaints at this time, symptoms are moderate severity, no other aggravating alleviating factors. Patient did receive sign Medrol, Xopenex prior to arrival.. Historical: - Allergies: 00:48 Albuterol; vc1 00:48 Morphine; vc1 00:48 Ativan; vc1 - PMHx: 02:35 COPD; Emphysema; Non-tuberculin Mycoplasma; pf1 02:36 on lung transplant list; pf1 - PSHx: 02:35 hysterectomy; pf1 - Immunization history:: Adult Immunizations up to date, 3 doses of pfizer Last tetanus immunization: > 10 years ago Flu vaccine is up to date. - Social history:: Smoking status: Patient/guardian denies using tobacco, the patient reports quitting approximately 8 years ago, Patient/guardian denies using alcohol, street drugs. - Family history:: not pertinent. ROS: 02:21 Constitutional: Negative for fever, chills, and weight loss, MS/Extremity: Negative for rt injury and deformity, Skin: Negative for injury, rash, and discoloration, Neuro: Negative for headache, weakness, numbness, tingling, and seizure, Psych: Negative for depression, anxiety, suicide ideation, homicidal ideation, and hallucinations, 02:21 Cardiovascular: Positive for chest pain, Negative for edema, 02:21 Respiratory: Positive for cough, shortness of breath, wheezing, 02:21 Abdomen/GI: Positive for abdominal pain, Negative for vomiting, Exam: 02:21 ECG was reviewed by the Attending Physician. rt 02:21 Respiratory: Wheezes with diminished breath sounds heard on all lung cordova, moderate respiratory distress, 02:21 Abdomen/GI: Mild tenderness diffusely without rebound, guarding, distention, Vital Signs: 00:16 BP 150 / 86; Pulse 123; Resp 30; Temp 97.8; Pulse Ox 93% on 4 lpm NC; Pain 10/10; pf1 00:41 Weight 47.63 kg; Height 5 ft. 2 in. ; pf1 02:00 BP 124 / 78; Pulse 109; Resp 21; Pulse Ox 97% on BiPAP; vc1 04:00 BP 95 / 62; Pulse 78; Resp 16; Pulse Ox 96% on BiPAP; vc1 05:00 BP 95 / 61; Pulse 77; Resp 16; Pulse Ox 98% ; vc1 00:41 Body Mass Index 19.20 (47.63 kg, 157.48 cm) pf1 00:16 Pain Scale: Adult pf1 MDM: 00:17 Patient medically screened. rt 03:10 Differential diagnosis: COPD, hypercarbia, pneumonia, CHF. Data reviewed: vital signs, rt nurses notes, lab test result(s), EKG, radiologic studies. Consideration of Admission/Observation Patient was admitted/placed on observation. Management of patient was discussed with the following: Hospitalist: Agrees to admit. Independent interpretation of the following test(s) in the Emergency Department X-Ray: My interpretation is No pneumonia seen on interpretation of x-ray images. Care significantly affected by the following chronic conditions: Chronic Obstructive Pulmonary Disease. Counseling: I had a detailed discussion with the patient and/or guardian regarding the historical points, exam findings, and any diagnostic results supporting the discharge/admit diagnosis, lab results, radiology results, the need for further work-up and treatment in the hospital. Response to treatment: the patient's symptoms have markedly improved after treatment. 01/15 00:22 Order name: CBC with Diff rt 01/15 00:22 Order name: CMP; Complete Time: 02:02 rt 01/15 00:22 Order name: Lipase; Complete Time: 02:02 rt 01/15 00:22 Order name: Troponin High Sensitivity; Complete Time: 02:02 rt 01/15 00:22 Order name: BNP; Complete Time: 02:02 rt 01/15 00:22 Order name: ABG; Complete Time: 02:02 rt 01/15 00:40 Order name: Blood Culture Adult (2) rt 01/15 00:40 Order name: Lactate w/ 2H reflex if indic.; Complete Time: 02:02 rt 01/15 01:31 Order name: Manual Differential EDMS 01/15 03:18 Order name: CBC with Automated Diff EDMS 01/15 03:18 Order name: Comprehensive Metabolic Panel EDMS 01/15 03:18 Order name: Comprehensive Metabolic Panel EDMS 01/15 00:22 Order name: CT Abd/Pelvis - Without Contrast rt 01/15 00:22 Order name: Chest Single View XRAY rt 01/15 00:43 Order name: BIPAP rt 01/15 00:22 Order name: EKG; Complete Time: 00:22 rt 01/15 00:22 Order name: IV Saline Lock; Complete Time: 02:21 rt 01/15 00:22 Order name: Labs collected and sent; Complete Time: 02:21 rt 12 00:22 Order name: EKG - Nurse/Tech; Complete Time: 01:13 rt EC: Rate is 125 beats/min. Rhythm is regular, Sinus tachycardia with No ectopy. QRS Ferdinand is rt Normal. [place] interval is normal. QRS interval is normal. QT interval is normal. No Q waves. T waves are Normal. No ST changes noted. Administered Medications: 01:30 Drug: fentaNYL (PF) IVP 50 mcg IVP once Route: IVP; Site: left antecubital; pf1 01:34 CANCELLED (Patient Refused): ativan1 mg IVP once pf1 02:13 Drug: HYDROmorphone IVP 0.5 mg IVP once Route: IVP; Site: left antecubital; vc1 02:13 Drug: Diazepam IVP 2 mg IVP once Route: IVP; Site: left antecubital; vc1 02:15 Drug: Levalbuterol Inhalation 1.25 mg Inhalation once Route: Inhalation; vc1 02:22 Drug: Rocephin - Rocephin (cefTRIAXone) IVPB 2 grams IVPB once over 30 mins; (mix in vc1 100 mL NS) Route: IVPB; Infused Over: 30 mins; Site: left antecubital; Disposition: 03:11 Critical Care:. rt Disposition Summary: 01/15/23 03:10 Hospitalization Ordered Notes: Hospitalization Status: Inpatient Admission rt Provider: Joe Ugarte rt Condition: Stable rt Problem: new rt Symptoms: have improved rt Bed/Room Type: Standard rt Location: Intensive Care Unit(01/15/23 07:39) bd Room Assignment: 3-(12/11/23 07:39) bd Diagnosis - COPD exacerbation rt - Leukocytosis rt - Hypercarbic respiratory failure rt Forms: - Medication Reconciliation Form rt - SBAR form rt - Leadership Thank You Letter rt Critical care time excluding procedures: 03:11 Critical care time: Bedside Care: 30 minutes, Consultation: 5 minutes. Total time: 35 rt minutes Signatures: Dispatcher [employer] EDMS Curran FantaSharri Weaver RN RN cg Citlali Wright RN RN vc1 Durga Gtaica MD MD rt Carol Villeda RN RN pf1 Corrections: (The following items were deleted from the chart) 01:34 00:47 Ativan IVP 1 mg IVP once ordered. rt pf1 02:36 02:35 PMHx: on lung transplant list (hysterectomy); pf1 pf1 03:44 03:10 Telemetry/MedSurg (Inpatient) rt cg 03:44 03:10 rt cg 07:39 03:44 Telemetry/MedSurg (Inpatient) cg bd 07:39 03:44 cg bd
--- NOTE | 2023-01-15 03:10 | ER ---
Nurse's Notes [facility] Name: Kallie Correia Age: 62 yrs Sex: Female : 1960 Arrival Date: 01/15/2023 Time: 00:13 Bed 6 Private MD: Diagnosis: COPD exacerbation;Leukocytosis;Hypercarbic respiratory failure Presentation: 01/15 00:16 Chief complaint: Patient states: intermittent chest pain of 10,onset yesterday with pf1 abdominal pain, headache, SOB tonight with 02 saturation 86% on 4LNC per [facility] ACCOUNT SERVICE ASSOCIATE. EMS stated gave patient Xopenex x 1 tx and ASA 324 mg and Solu-Medrol 125 mg IVP ACCOUNT SERVICE ASSOCIATE. Patient stated is 02 dependent 4LNC and is currently on the lung transplant list. 00:16 Coronavirus screen: Client denies travel out of the [place] in the last 14 days. Client pf1 presents with at least one sign or symptom that may indicate coronavirus-19. Ebola Screen: Patient negative for fever greater than or equal to 101.5 degrees Fahrenheit, and additional compatible Ebola Virus Disease symptoms. Initial Sepsis Screen: Does the patient meet any 2 criteria? RR > 20 per min. HR > 90 bpm. Does the patient have a suspected source of infection? No. Patient's initial sepsis screen is negative. Risk Assessment: Do you want to hurt yourself or someone else? Patient reports no desire to harm self or others. 00:16 Method Of Arrival: EMS: [facility] pf1 00:16 Acuity: BENJI 2 pf1 00:16 Onset of symptoms was January 14, 2023. Care prior to arrival: Medication(s) given: vc1 Atrovent Neb x 1, IV initiated. 20 GA, in the left forearm, Med neb given. Oxygen administered. via nasal cannula. Triage Assessment: 00:30 General: Appears distressed, uncomfortable, Behavior is anxious. Pain: Complains of vc1 pain in chest and headache Pain does not radiate. Pain currently is 10 out of 10 on a pain scale. EENT: No deficits noted. No signs and/or symptoms were reported regarding the EENT system. Neuro: Level of Consciousness is alert, lethargic, Oriented to person, place, time, situation, Appropriate for age Reports headache. Cardiovascular: Reports chest pain, shortness of breath, Rhythm is sinus tachycardia with PACs Chest pain is described as severe. Respiratory: Airway is patent Respiratory effort is even, labored, Respiratory pattern is symmetrical, tachypnea the patient has moderate shortness of breath. GI: No deficits noted. No signs and/or symptoms were reported involving the gastrointestinal system. : No deficits noted. No signs and/or symptoms were reported regarding the genitourinary system. Derm: No deficits noted. No signs and/or symptoms reported regarding the dermatologic system. Musculoskeletal: No deficits noted. No signs and/or symptoms reported regarding the musculoskeletal system. Historical: - Allergies: 00:48 Albuterol; vc1 00:48 Morphine; vc1 00:48 Ativan; vc1 - PMHx: 02:35 COPD; Emphysema; Non-tuberculin Mycoplasma; pf1 02:36 on lung transplant list; pf1 - PSHx: 02:35 hysterectomy; pf1 - Immunization history:: Adult Immunizations up to date, 3 doses of pfizer Last tetanus immunization: > 10 years ago Flu vaccine is up to date. - Social history:: Smoking status: Patient/guardian denies using tobacco, the patient reports quitting approximately 8 years ago, Patient/guardian denies using alcohol, street drugs. - Family history:: not pertinent. Screenin:49 [facility] ED Fall Risk Assessment (Adult) History of falling in the last 3 months, vc1 including since admission No falls in past 3 months (0 pts) Confusion or Disorientation No (0 pts) Intoxicated or Sedated No (0 pts) Impaired Gait No (0 pts) Mobility Assist Device Used No (0 pt) Altered Elimination No (0 pt) Score/Fall Risk Level 0 - 2 = Low Risk Oriented to surroundings, Maintained a safe environment, Educated pt \T\ family on fall prevention, incl call for assistance when getting out of bed. Abuse screen: Denies threats or abuse. Nutritional screening: No deficits noted. Tuberculosis screening: No symptoms or risk factors identified. Assessment: 02:49 Reassessment: Patient and/or family updated on plan of care and expected duration. Pain vc1 level reassessed. Patient states symptoms have improved. 04:00 Reassessment: No changes from previously documented assessment. Patient and/or family vc1 updated on plan of care and expected duration. Pain level reassessed. 05:00 Reassessment: No changes from previously documented assessment. Patient and/or family vc1 updated on plan of care and expected duration. Pain level reassessed. Vital Signs: 00:16 BP 150 / 86; Pulse 123; Resp 30; Temp 97.8; Pulse Ox 93% on 4 lpm NC; Pain 10/10; pf1 00:41 Weight 47.63 kg; Height 5 ft. 2 in. ; pf1 02:00 BP 124 / 78; Pulse 109; Resp 21; Pulse Ox 97% on BiPAP; vc1 04:00 BP 95 / 62; Pulse 78; Resp 16; Pulse Ox 96% on BiPAP; vc1 05:00 BP 95 / 61; Pulse 77; Resp 16; Pulse Ox 98% ; vc1 00:41 Body Mass Index 19.20 (47.63 kg, 157.48 cm) pf1 00:16 Pain Scale: Adult pf1 ED Course: 00:16 Patient arrived in ED. [id number] 00:16 Durga Gatica MD is Attending Physician. rt 00:30 Oxygen administration via nasal cannula \T\ 4L/min. vc1 00:32 Patient has correct armband on for positive identification. Bed in low position. Call vc1 light in reach. Client placed on continuous cardiac and pulse oximetry monitoring. NIBP monitoring applied. 00:35 Chest Single View XRAY In Process Unspecified. EDMS 00:39 Triage completed. pf1 01:05 Missed attempt(s): 22 gauge in right antecubital area. pf1 01:13 Lactate w/ 2H reflex if indic. Sent. pf1 01:13 BNP Sent. pf1 01:13 Troponin High Sensitivity Sent. pf1 01:13 CBC with Diff Sent. pf1 01:13 CMP Sent. pf1 01:13 Lipase Sent. pf1 01:22 Inserted saline lock: 22 gauge in left antecubital area, using aseptic technique. Blood pf1 collected. 01:26 Lactate w/ 2H reflex if indic. Sent. pf1 01:26 Blood Culture Adult (2) Sent. pf1 01:54 CT Abd/Pelvis - Without Contrast In Process Unspecified. EDMS 02:50 Arm band placed on right wrist. vc1 03:00 Provided Education on: bipap. vc1 03:09 Joe Ugarte MD is Hospitalizing Provider. rt 05:00 No provider procedures requiring assistance completed. Patient admitted, IV remains in vc1 place. 07:26 Duarte Romano, RN is Primary Nurse. rs5 Administered Medications: 01:30 Drug: fentaNYL (PF) IVP 50 mcg IVP once Route: IVP; Site: left antecubital; pf1 01:34 CANCELLED (Patient Refused): ativan1 mg IVP once pf1 02:13 Drug: HYDROmorphone IVP 0.5 mg IVP once Route: IVP; Site: left antecubital; vc1 02:13 Drug: Diazepam IVP 2 mg IVP once Route: IVP; Site: left antecubital; vc1 02:15 Drug: Levalbuterol Inhalation 1.25 mg Inhalation once Route: Inhalation; vc1 02:22 Drug: Rocephin - Rocephin (cefTRIAXone) IVPB 2 grams IVPB once over 30 mins; (mix in vc1 100 mL NS) Route: IVPB; Infused Over: 30 mins; Site: left antecubital; Medication: 05:19 VIS not applicable for this client. vc1 Outcome: 03:10 Decision to Hospitalize by Provider. rt 05:00 Admitted to ER Hold. Please see [facility] for further documentation. vc1 05:00 Condition: improved 05:00 Instructed on the need for admit, 08:42 Patient left the ED. rs5 Signatures: Dispatcher [employer] EDMS Shea Jose [id number] Citlali Wright RN RN vc1 Durga Gatica MD MD rt Carol Villeda RN RN pf1 Duarte Romano, JEANETTE RN rs5 Corrections: (The following items were deleted from the chart) 02:36 02:35 PMHx: on lung transplant list (hysterectomy); pf1 pf1
[2023-01-15] MEDS ORDERED: ONDANSETRON 4 MG/2 ML VIAL IV PRN (03:11)
[2023-01-15] MEDS ORDERED: ACETAMINOPHEN 325 MG TABLET PO PRN (03:11)
--- NOTE | 2023-01-15 03:17 | P.HP ---
Certification for Inpatient Patient admitted to: Inpatient With expected LOS: >2 Midnights Practitioner: I am a practitioner with admitting privileges, knowledge of patient current condition, hospital course, and medical plan of care. Services: Services provided to patient in accordance with Admission requirements found in Title 42 Section 412.3 of the Code of Federal Regulations Patient History Date of Service: 01/15/23 Reason for admission: COPD exacerbation, respiratory failure with hypercapnia History of Present Illness: 62-year-old female patient with medical history significant for COPD, history of atypical Mycobacterium AVM infection, hyperlipidemia, anxiety disorder was evaluated for episode of worsening shortness of breath. She was found to have significant hypercapnia with a pCO2 of 79 and pH of 7.33 with pCO2 of 64. She was started on BiPAP, given IV antibiotic therapy for elevated white cell and also steroid therapy and was admitted for inpatient care. Allergies morphine Allergy (Intermediate, Verified 10/23/15 06:09) Hives/Rash albuterol Allergy (Verified 07/11/22 01:06) Nausea/Vomiting lorazepam [From Ativan] Allergy (Verified 12/12/22 00:49) Itching/Hives/Rash Home Medications: Fluticasone Propion/Salmeterol [Fluticasone-Salmeterol 250-50] 1 puff IH BID 05/29/20 Aspirin [Aspirin EC 81 MG] 81 mg PO DAILY 07/11/22 Flecainide Acetate 50 mg PO BID 07/11/22 Metoprolol Succinate [Toprol Xl*] 25 mg PO BID 07/11/22 Gabapentin 600 mg PO BID 11/06/22 Pantoprazole [Protonix Tab*] 40 mg PO BID 11/06/22 Sennosides/Docusate Sodium [Senna-S 8.6-50 mg Tablet] 1 each PO PRN 11/06/22 Hydrocodone 5/APAP 325 [[place] 5/325*] 1 tab PO TIDP PRN 12/12/22 diazePAM [Valium*] 5 mg PO BID #15 tab 12/13/22 predniSONE [Deltasone] 20 mg PO DAILY 7 Days #7 tab 12/13/22 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 -: HTN -: Afib -: Hysterectomy -: Tubal ligation -: tosillectomy -: R leg sx with metal screws -: Patient has had fine-needle aspiration complicated by pneumothorax -: Bronchoscopy at [facility] -: Lung transplant - Family History Mother -: Cancer Sister -: Cancer Father -: Heart disease Brother -: Lung disease - Social History Alcohol use: No CD- Drugs: No Caffeine use: No Review of Systems General: Weakness, Malaise Eyes: Unremarkable ENT: Unremarkable Respiratory: Shortness of Breath, Wheezing Cardiovascular: Unremarkable Gastrointestinal: Unremarkable Musculoskeletal: Unremarkable Integumentary: Unremarkable Neurological: Unremarkable Physical Examination - Vital Signs Pulse: 103 Pulse Ox (%): 100 - Physical Exam General: Alert HEENT: Atraumatic, Normocephalic Neck: Supple Respiratory: Diminished Cardiovascular: Regular rate/rhythm, Normal S1 S2 Gastrointestinal: Soft and benign Musculoskeletal: No swelling Neurological: Normal speech, Normal strength at 5/5 x4 extr - Studies Laboratory Data (last 24 hrs) 01/15/23 01/15/23 01:05 01:05 WBC 18.00 H Hgb 9.6 L Hct 32.0 L Plt Count 253 Sodium 137 Potassium 4.0 BUN 9 Creatinine 0.46 L Glucose 129 H Total Bilirubin 0.3 AST 24 ALT 20 Alkaline Phosphatase 114 Lipase 9 L Assessment and Plan - Plan COPD exacerbation: Patient has suspicion infectious etiology of COPD exacerbation. Continue empiric antibiotic of Rocephin for suspected pneumonia episode. Will continue to monitor cultures for adjustment of antibiotic therapy. Continue breathing treatment. Continue steroid therapy Hypertension: Monitor vital signs per unit protocol and continue antihypertensive medication as prescribed outpatient Pneumonia: Patient has evidence of a suspicion for infectious exacerbation of COPD. Will continue empiric antibiotic of Rocephin pending review of blood cultures. We might obtain sputum cultures if patient is able to expectorate. Respiratory failure with hypoxia and hypercapnia. Patient has been started on BiPAP for respiratory acidosis, hypoxia and hypercarbia. Will monitor serial ABG for resolution. Prophylaxis: Lovenox for DVT prophylaxis CODE STATUS: Full code Disposition: We will treat her respiratory failure, treat her COPD exacerbation and she will be discharged when she is deemed clinically stable. Plan to discharge in: Greater than 2 days - Advance Directives Does patient have a Living Will: No Does patient have a Durable POA for Healthcare: No Time Spent Managing Pts Care (In Minutes): 60
[2023-01-15 03:21] LABS: Blood Morphology Comment NOT SEEN (NOT SEEN); Platelet Estimate ADEQ
[2023-01-15 05:25] VITALS: BMI 19.2
[2023-01-15] MEDS: D5.45NS W/KCL 20MEQ 1,000 ML IV SCH (05:56)
[2023-01-15] MEDS ORDERED: D5.45NS W/KCL 20MEQ 1,000 ML IV ONE (06:03)
[2023-01-15] MEDS ORDERED: ALBUTEROL 2.5 MG/3 ML NEB SOL NEB SCH (07:00)
[2023-01-15] MEDS ORDERED: HYDROMORPHONE HCL 0.5 MG/0.5 ML INJ IV ONE (07:58)
[2023-01-15] MEDS: BUDESONIDE 0.25 MG/2 ML NEB NEB SCH ×2 (08:00→19:43)
[2023-01-15] MEDS ORDERED: BUDESONIDE 0.5 MG/2 ML NEB NEB SCH (08:00)
[2023-01-15] MEDS ORDERED: ALBUTEROL 2.5 MG/3 ML NEB SOL ONE (08:43)
[2023-01-15] MEDS ORDERED: IPRATROPIUM BROM 0.5MG/2.5ML ONE (08:44)
[2023-01-15] MEDS: IPRATROPIUM BROM 0.5MG/2.5ML NEB SCH ×3 (08:46→19:43)
[2023-01-15] MEDS ORDERED: HYDROCODONE/APAP 5/325 MG TAB PO PRN (09:20)
[2023-01-15] MEDS ORDERED: DOCUSATE NA/SENNA CONC 1 TAB PO PRN (10:00)
[2023-01-15] MEDS: DULERA 100/5 (MOMETASONE/FORMOTEROL) INHALER IH SCH ×2 (10:00→21:00)
[2023-01-15] MEDS: LEVALBUTEROL 0.63 MG/3 ML NEB NEB PRN ×2 (10:15→14:27)
[2023-01-15] MEDS: CEFTRIAXONE 1,000 MG in NA CHLORIDE 0.9% 50 ML IVPB SCH (10:36)
[2023-01-15] MEDS: ENOXAPARIN 40 MG/0.4 ML SQ SCH (10:36)
[2023-01-15] MEDS: METHYLPREDNISOLONE 40 MG INJ IV SCH ×2 (10:37→16:00)
[2023-01-15 11:23] LABS: Arterial Blood Carboxyhemoglob 1.5 % (0-1.5); Blood Gas Oxyhemoglobin 95.3 % (94-97); Blood O2 Saturation 98.5 % (92-98.5)
[2023-01-15] MEDS: PANTOPRAZOLE 40MG TABLET PO SCH ×2 (11:41→20:31)
[2023-01-15] MEDS: METOPROLOL XL 25 MG TAB PO SCH ×3 (11:42→21:00)
[2023-01-15] MEDS: ASPIRIN EC 81 MG TAB PO SCH (11:42)
[2023-01-15] MEDS: FLECAINIDE 100 MG TAB PO SCH ×3 (11:43→21:00)
[2023-01-15] MEDS ORDERED: PANTOPRAZOLE 40MG TABLET PO ONE (11:52)
[2023-01-15] MEDS ORDERED: ASPIRIN EC 81 MG TAB PO ONE (11:52)
[2023-01-15] MEDS: HYDROMORPHONE HCL 0.5 MG/0.5 ML INJ IV PRN ×3 (12:05→20:26)
[2023-01-15] MEDS ORDERED: GABAPENTIN 300 MG CAP PO ONE (12:14)
[2023-01-15] MEDS ORDERED: GABAPENTIN 300 MG CAP ONE (12:17)
--- NOTE | 2023-01-15 14:54 | RAD REPORT ---
EXAM DESCRIPTION: CT - Abdomen Pelvis Wo Contrast - 01/15/2023 6:31 am CLINICAL HISTORY: ABD PAIN COMPARISON: None. TECHNIQUE: CT ABDOMEN PELVIS WITHOUT IV CONTRAST on 01/15/2023 12:22 AM GLASS WASHER This exam was performed according to our departmental dose-optimization program, which includes autom ated exposure control, adjustment of the mA and/or kV according to patient size and/or use of iterati ve reconstruction technique. FINDINGS: The lower lung emphysema. There is a trace left pleural effusion. Abdomen: The liver is normal in appearance. There is no biliary dilatation. Gallbladder is normal in appearance. The pancreas and spleen are normal in appearance. Adrenal glands are normal. 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 Abdominal aorta is moderately calcified without aneurysm. There is no free air. There is no retroperi toneal adenopathy. Pelvis: There is no bowel obstruction. Urinary bladder is unremarkable. There is no free fluid. Uteru s is not clearly seen. Appendix is not clearly seen. Skeleton: There are no acute osseous findings. No suspicious bony lesions. IMPRESSION: No definite acute process. Electronically signed by: Nikos Xavier MD 01/15/2023 02:09 AM GLASS WASHER Due to temporary technical issues with the PACS/Fluency reporting system, reports are being signed by the in house radiologist without review as a courtesy to ensure prompt reporting. The interpreting r adiologist is fully responsible for the content of the report.
--- NOTE | 2023-01-15 15:00 | RAD REPORT ---
EXAM DESCRIPTION: RAD - Chest Single View - 01/15/2023 12:34 am CLINICAL HISTORY: CHEST PAIN COMPARISON: 12/11/2022 FINDINGS: Single frontal radiograph view of the chest. Cardiomediastinal silhouette: Atherosclerotic calcification of thoracic aorta. Heart is not enlarged. Lungs: Coarse scarring in the right upper lung. Bilateral interstitial opacities with hyperexpansion. No acute focal pneumonic process identified. No pleural effusion. No definite interval change. Bones: No acute osseous abnormality. Degenerative change of the spine and shoulders. Upper abdomen: No abnormality identified. IMPRESSION: 1. No acute pneumonic process identified. 2. Obstructive lung disease with stable chronic changes. Electronically signed by: Corby Bingham DO 01/15/2023 01:21 AM CHIEF INTERNAL AUDITOR M Due to temporary technical issues with the PACS/Fluency reporting system, reports are being signed by the in house radiologist without review as a courtesy to ensure prompt reporting. The interpreting r adiologist is fully responsible for the content of the report.
[2023-01-15] MEDS ORDERED: METHYLPREDNISOLONE 40 MG INJ ONE (16:09)
[2023-01-15] MEDS ORDERED: DIAZEPAM 5 MG TABLET PO ONE (20:49)
[2023-01-15] MEDS ORDERED: GABAPENTIN 300 MG CAP PO SCH (21:00)
[2023-01-15] MEDS ORDERED: HOME MED 1 EA UNK (Fluticasone Propion/Salmeterol [Fluticasone-Salmeterol 250-50] Blst.W.D IH SCH (21:00)
[2023-01-15] MEDS ORDERED: DIAZEPAM 5 MG TABLET PO SCH (21:00)
[2023-01-15] MEDS ORDERED: DIAZEPAM 5 MG TABLET ONE (21:29)
[2023-01-16] MEDS ORDERED: HYDROMORPHONE HCL 0.5 MG/0.5 ML INJ ONE (00:14)
[2023-01-16] MEDS: HYDROMORPHONE HCL 0.5 MG/0.5 ML INJ IV PRN ×4 (00:59→13:04)
[2023-01-16] MEDS: METHYLPREDNISOLONE 40 MG INJ IV SCH ×3 (00:59→16:12)
[2023-01-16] MEDS: D5.45NS W/KCL 20MEQ 1,000 ML IV SCH ×2 (00:59→20:35)
[2023-01-16] MEDS: IPRATROPIUM BROM 0.5MG/2.5ML NEB SCH ×5 (01:20→20:31)
[2023-01-16 05:00] LABS: Absolute Lymphocytes (CBC) 0.5 K/uL (0.7-4.9); Hematocrit 30.6 % (36.0-45.0); Lymphocytes % 4.8 % (15.3-44.8); MCV 87.1 fL (80-100); MPV 7.4 fL (7.6-11.3); Platelets 250 thou/uL (152-406); RBC Red Blood Cell Count 3.51 M/uL (3.86-4.86)
[2023-01-16 05:22] LABS: Albumin 2.3 g/dL (3.4-5.0); Bilirubin Total 0.1 mg/dL (0.2-1.0); Potassium 3.9 mEq/L (3.5-5.1); Protein, Total 7.4 g/dL (6.4-8.2)
[2023-01-16] MEDS: BUDESONIDE 0.25 MG/2 ML NEB NEB SCH (08:00)
[2023-01-16] MEDS ORDERED: IPRATROPIUM BROM 0.5MG/2.5ML ONE ×3 (08:20→19:47)
[2023-01-16] MEDS: DULERA 100/5 (MOMETASONE/FORMOTEROL) INHALER IH SCH ×2 (08:45→19:14)
[2023-01-16] MEDS: ASPIRIN EC 81 MG TAB PO SCH (09:01)
[2023-01-16] MEDS: ENOXAPARIN 40 MG/0.4 ML SQ SCH (09:01)
[2023-01-16] MEDS: CEFTRIAXONE 1,000 MG in NA CHLORIDE 0.9% 50 ML IVPB SCH (09:01)
[2023-01-16] MEDS: PANTOPRAZOLE 40MG TABLET PO SCH ×2 (09:01→20:36)
[2023-01-16] MEDS: METOPROLOL XL 25 MG TAB PO SCH ×2 (09:05→19:15)
[2023-01-16] MEDS: FLECAINIDE 100 MG TAB PO SCH ×2 (09:05→19:14)
[2023-01-16] MEDS ORDERED: ASPIRIN EC 81 MG TAB PO ONE (09:12)
[2023-01-16] MEDS ORDERED: DOCUSATE NA/SENNA CONC 1 TAB PO PRN (13:31)
--- NOTE | 2023-01-16 13:47 | EKG ---
Test Date: 2023-01-15 Test Time: 00:23:14 Industrial Spraypainter: ARAMIS MEASUREMENT RESULTS: Intervals: Rate: 125 ID: [id number] QRSD: 70 QT: 304 QTc: 438 [place]: P: 86 ID: [id number] QRS: 41 T: 81 INTERPRETIVE STATEMENTS: Sinus tachycardia Biatrial enlargement Abnormal ECG Compared to ECG 11/06/2022 18:53:45 Sinus rhythm no longer present Electronically Signed On 01-16-23 13:41:04 SUSTAINABLE COMMUNITIES DESIGNER by Chandrakant Escalera
[2023-01-16] MEDS: FENTANYL CITR 100 MCG/2 ML IV PRN ×2 (16:12→20:24)
[2023-01-16 17:14] LABS: SARS-COV-2 RT PCR NEGATIVE (NEGATIVE)
[2023-01-16] MEDS ORDERED: FENTANYL CITR 100 MCG/2 ML ONE (20:34)
[2023-01-16] MEDS: DIAZEPAM 2 MG TABLET PO SCH (20:35)
[2023-01-16] MEDS ORDERED: DIAZEPAM 2 MG TABLET ONE (20:46)
[2023-01-17] MEDS: FENTANYL CITR 100 MCG/2 ML IV PRN ×6 (00:20→20:54)
[2023-01-17] MEDS: METHYLPREDNISOLONE 40 MG INJ IV SCH ×3 (00:21→16:20)
[2023-01-17] MEDS: IPRATROPIUM BROM 0.5MG/2.5ML NEB SCH ×4 (01:47→19:44)
[2023-01-17] MEDS: ASPIRIN EC 81 MG TAB PO SCH (08:42)
[2023-01-17] MEDS: FLECAINIDE 100 MG TAB PO SCH ×2 (08:42→20:53)
[2023-01-17] MEDS: METOPROLOL XL 25 MG TAB PO SCH ×2 (08:42→20:53)
[2023-01-17] MEDS: PANTOPRAZOLE 40MG TABLET PO SCH ×2 (08:43→20:53)
[2023-01-17] MEDS: DIAZEPAM 2 MG TABLET PO SCH ×2 (08:43→20:54)
[2023-01-17] MEDS: ENOXAPARIN 40 MG/0.4 ML SQ SCH (08:43)
[2023-01-17] MEDS: CEFTRIAXONE 1,000 MG in NA CHLORIDE 0.9% 50 ML IVPB SCH (08:45)
[2023-01-17] MEDS: DULERA 100/5 (MOMETASONE/FORMOTEROL) INHALER IH SCH ×2 (08:45→20:04)
[2023-01-17] MEDS: D5.45NS W/KCL 20MEQ 1,000 ML IV SCH (16:21)
[2023-01-18] MEDS: METHYLPREDNISOLONE 40 MG INJ IV SCH ×3 (01:09→16:37)
[2023-01-18] MEDS: FENTANYL CITR 100 MCG/2 ML IV PRN ×2 (01:16→06:54)
[2023-01-18] MEDS: IPRATROPIUM BROM 0.5MG/2.5ML NEB SCH ×4 (01:30→20:27)
[2023-01-18] MEDS: DULERA 100/5 (MOMETASONE/FORMOTEROL) INHALER IH SCH ×2 (09:00→20:40)
[2023-01-18] MEDS: DIAZEPAM 2 MG TABLET PO SCH (09:48)
[2023-01-18] MEDS: ASPIRIN EC 81 MG TAB PO SCH (09:48)
[2023-01-18] MEDS: METOPROLOL XL 25 MG TAB PO SCH ×2 (09:48→20:40)
[2023-01-18] MEDS: PANTOPRAZOLE 40MG TABLET PO SCH ×2 (09:49→20:42)
[2023-01-18] MEDS: FLECAINIDE 100 MG TAB PO SCH ×2 (09:49→20:40)
[2023-01-18] MEDS: ENOXAPARIN 40 MG/0.4 ML SQ SCH (09:50)
[2023-01-18] MEDS ORDERED: DIAZEPAM 5 MG TABLET PO ONE (11:02)
[2023-01-18 11:25] LABS: Absolute Lymphocytes (CBC) 0.6 K/uL (0.7-4.9); Hematocrit 27.5 % (36.0-45.0); Lymphocytes % 7.4 % (15.3-44.8); MCV 84.9 fL (80-100); Platelets 285 thou/uL (152-406); RBC Red Blood Cell Count 3.24 M/uL (3.86-4.86)
[2023-01-18] MEDS ORDERED: GABAPENTIN 300 MG CAP PO ONE (11:30)
[2023-01-18] MEDS: HYDROMORPHONE HCL 0.5 MG/0.5 ML INJ IV PRN ×3 (11:45→20:43)
[2023-01-18 11:58] LABS: Magnesium 1.8 mg/dL (1.6-2.4); Potassium 3.6 mEq/L (3.5-5.1)
[2023-01-18] MEDS: D5.45NS W/KCL 20MEQ 1,000 ML IV SCH (12:00)
--- NOTE | 2023-01-18 12:01 | RAD REPORT ---
EXAM DESCRIPTION: RADChest Single View01/18/2023 10:21 am CLINICAL HISTORY: pneumonia COMPARISON: Chest Single View dated 01/15/2023; Chest Single View dated 12/11/2022; Chest Single View dated 11/08/2022; Chest Single View dated 11/06/2022 TECHNIQUE: Portable AP view of the chest. FINDINGS: Chronic scarring in the right upper to mid lung CT is stable. Partial improvement of left suprahilar and apical opacities, with some residual irregular opacities at the left apex which may al so relate to scarring. Diffuse hyperinflation, particularly on the right. No pneumothorax or effusio n. The cardiomediastinal contours are unremarkable. IMPRESSION: Chronic findings as above, with partial improvement of left lung opacities.
[2023-01-18] MEDS ORDERED: GABAPENTIN 300 MG CAP PO SCH ×2 (14:00→21:00)
[2023-01-18] MEDS ORDERED: ACETAMINOPHEN 325 MG TABLET PO PRN (15:37)
[2023-01-18] MEDS ORDERED: POTASSIUM 25 MEQ EFFERV TAB PO ONE (16:05)
[2023-01-18] MEDS ORDERED: Magnesium Sulfate 2gm IVPB 2 G/50 ML BAG IV ONE (16:05)
[2023-01-18] MEDS: ENOXAPARIN 30 MG/0.3 ML SQ SCH (16:36)
[2023-01-18] MEDS: ONDANSETRON 4 MG (ODT) TAB PO PRN (16:47)
[2023-01-18] MEDS: GABAPENTIN 300 MG CAP PO SCH (20:42)
[2023-01-18] MEDS: DIAZEPAM 5 MG TABLET PO SCH (20:43)
[2023-01-19] MEDS: METHYLPREDNISOLONE 40 MG INJ IV SCH ×3 (01:27→16:34)
[2023-01-19] MEDS: HYDROMORPHONE HCL 0.5 MG/0.5 ML INJ IV PRN ×6 (01:27→22:14)
[2023-01-19] MEDS: IPRATROPIUM BROM 0.5MG/2.5ML NEB SCH ×4 (02:36→20:08)
[2023-01-19] MEDS: DULERA 100/5 (MOMETASONE/FORMOTEROL) INHALER IH SCH ×2 (09:00→20:56)
[2023-01-19] MEDS: PANTOPRAZOLE 40MG TABLET PO SCH ×2 (09:42→20:54)
[2023-01-19] MEDS: GABAPENTIN 300 MG CAP PO SCH ×2 (09:43→20:54)
[2023-01-19] MEDS: METOPROLOL XL 25 MG TAB PO SCH ×2 (09:44→20:56)
[2023-01-19] MEDS: DIAZEPAM 5 MG TABLET PO SCH ×2 (09:44→20:56)
[2023-01-19] MEDS: ONDANSETRON 4 MG (ODT) TAB PO PRN ×2 (09:45→17:00)
[2023-01-19] MEDS: ASPIRIN EC 81 MG TAB PO SCH (09:45)
[2023-01-19] MEDS: FLECAINIDE 100 MG TAB PO SCH ×2 (09:47→20:56)
[2023-01-19 15:48] LABS: Absolute Lymphocytes (CBC) 0.3 K/uL (0.7-4.9); Hematocrit 29.9 % (36.0-45.0); Lymphocytes % 3.3 % (15.3-44.8); MCV 84.9 fL (80-100); Platelets 312 thou/uL (152-406); RBC Red Blood Cell Count 3.52 M/uL (3.86-4.86)
[2023-01-19 15:59] LABS: Potassium 4.4 mEq/L (3.5-5.1)
[2023-01-19] MEDS ORDERED: SOD FERRIC GLUC COMPLX/SUCROSE 125 MG in NA CHLORIDE 0.9% 100 ML IV ONE (16:00)
[2023-01-19 16:21] LABS: Blood Morphology Comment NOT SEEN (NOT SEEN); Platelet Estimate ADEQ; White Blood Cell Scan OK (OK)
[2023-01-19] MEDS: ENOXAPARIN 30 MG/0.3 ML SQ SCH (16:34)
[2023-01-20] MEDS: IPRATROPIUM BROM 0.5MG/2.5ML NEB SCH ×3 (01:23→14:06)
[2023-01-20] MEDS: METHYLPREDNISOLONE 40 MG INJ IV SCH ×2 (02:02→09:35)
[2023-01-20] MEDS: HYDROMORPHONE HCL 0.5 MG/0.5 ML INJ IV PRN ×4 (02:03→13:42)
[2023-01-20 07:41] VITALS: TEMP 97.1
[2023-01-20] MEDS: DIAZEPAM 5 MG TABLET PO SCH (09:00)
[2023-01-20] MEDS: DULERA 100/5 (MOMETASONE/FORMOTEROL) INHALER IH SCH (09:00)
[2023-01-20] MEDS: METOPROLOL XL 25 MG TAB PO SCH (09:33)
[2023-01-20] MEDS: ASPIRIN EC 81 MG TAB PO SCH (09:34)
[2023-01-20] MEDS: GABAPENTIN 300 MG CAP PO SCH (09:34)
[2023-01-20] MEDS: FLECAINIDE 100 MG TAB PO SCH (09:34)
[2023-01-20] MEDS: PANTOPRAZOLE 40MG TABLET PO SCH (09:34)
[2023-01-20] MEDS ORDERED: LIDOCAINE 5% OINT 30 GM TUBE TOP ONE (14:30)
[2023-01-20] MEDS ORDERED: FUROSEMIDE 20 MG/ 2ML VIAL IV ONE (14:30)
[2023-01-20 14:56] VITALS: BP 128/60
[2023-01-20 15:55] VITALS: O2SAT 100
== END 2023-01-20 15:50 | disposition home health service (06) | DRG 193 ==
LOC: ER 00:13 → ERHOLD 03:11 → 3RD-ICU 09:02 → 4TH 01-16 19:51 → 2ND 01-16 20:27
PROVIDERS: ADMIT Internal Medicine Nephrology; ATTEND Hospitalist
PROC: 5A09357 Assistance with Respiratory Ventilation, Less than 24 Consecutive Hours, Continuous Positive Airway Pressure (ICD-10-PCS; principal; 2023-01-15)
DX: J18.9 Pneumonia, unspecified organism (principal); J96.91 Respiratory failure, unspecified with hypoxia; J96.92 Respiratory failure, unspecified with hypercapnia; J44.0 Chronic obstructive pulmonary disease with (acute) lower respiratory infection; J44.1 Chronic obstructive pulmonary disease with (acute) exacerbation; I10 Essential (primary) hypertension; Z11.52 Encounter for screening for COVID-19
CPT/HCPCS: 0241U; 36415; 71045; 74176; 80048; 80053; 82805; 83540; 83605; 83690; 83735; 83880; 84145; 84484; 85025; 87040; 93005; 94640; 94660; 96374; 96375; 99285; J0696; J1170; J1650; J1940; J2405; J2916; J2920; J3010; J3360; J3475; J3535; J7613; J7614; J7626; J7634; J7644; Q0162